=== PATIENT | male | born 1945 | race Caucasian/White ===

== ENCOUNTER 2017-09-26 08:54 | Day surgery (SDC) | payer MEDICARE, OTHER, SELFPAY ==
[2017-09-23 15:58] VITALS: BMI 24.3
[2017-09-26 10:01] VITALS: BP 149/81; PULSE 57; RESP 20; TEMP 36.6
[2017-09-26 10:19] LABS: POC Glucose,Bedside 99 mg/dL
[2017-09-26 10:27] VITALS: O2SAT 96
--- NOTE | 2017-09-26 10:56 | P.PCN_ITS ---
[facility] Procedure Note Procedure Note:: Colonoscopy Procedure Report: Colonoscopy with cold snare polypectomy Endoscopist: Roberto Light II, MD Referring physician: Abelardo eLvi MD Date of Procedure: September 26, 2017 Equipment: Olympus 180 variable stiffness pediatric colonoscope Sedation: MAC sedation Indication: Mr. Lezama is a 72-year-old gentleman who is here for follow-up screening/surveillance colonoscopy. He did have a colonoscopy 5 years ago at which time a polyp was removed. This is his third colonoscopy. He reports no abdominal pain, weight loss, change in his bowel habits or rectal bleeding. He reports no family history of colon cancer. Procedure: Prior to the procedure, a history and physical exam was performed, and patient' s medications and allergies were reviewed. The risks, benefits and alternatives of the sedation and procedure were discussed with the patient. All questions were answered and informed consent was obtained. The patient was brought to the procedure room. Patient identification and proposed procedure were verified by the physician and the nurse. The patient was placed in a left lateral decubitus position and the scope was passed under direct vision. Throughout the procedure, the patient's blood pressure, pulse, and oxygen saturations were monitored continuously. The colonoscopy was accomplished without difficulty. The patient tolerated the procedure well. Findings: On digital rectal examination there was normal rectal tone. There were no external hemorrhoids. The prostate was 2+, smooth, soft, symmetric without nodules. The colonoscope was introduced through the anal canal to the rectum and advanced to the cecum. The ileocecal valve and appendiceal orifice were identified. The scope was advanced a short distance into the ileum which appeared grossly normal. The scope was then withdrawn into the colon. The cecum , ascending and transverse colon and mucosa were grossly normal. There was a 5- 6 mm polyp in the descending colon removed via cold snare polypectomy. There were scattered diverticuli throughout the descending and sigmoid colon (LEFT colon). The rectum itself was normal. Upon retroflexion within the rectum there were grade 1 internal hemorrhoids. Impression: 1. Descending colon polyp 2. Left-sided diverticulosis 3. Grade 1 internal hemorrhoids Plan: I will follow up the polyp pathology and recommend repeat colonoscopy again in 5 years based upon the polyp histology. I would encourage fiber supplementation on a long-term daily maintenance basis.
[2017-09-26 11:00] VITALS: BP 120/68; PULSE 50; RESP 16; TEMP 36.5; O2SAT 94
[2017-09-26 11:10] VITALS: BP 133/76; PULSE 63; RESP 18; O2SAT 95
[2017-09-26 11:20] VITALS: BP 127/73; PULSE 54; RESP 18; O2SAT 97
[2017-09-26 11:30] VITALS: BP 130/77; PULSE 57; RESP 18; TEMP 36.5; O2SAT 96
--- NOTE | 2017-09-28 08:24 | P.PN_ITS ---
[facility] Anesthesia Checklist - Structural Data Admitted From: Home Planned Operative Procedure/s: colonoscopy Consent for Planned Operative Procedure(s) Verified: Yes - Airway Assessment C-Spine Mobility Assessed: Yes TMJ Mobility Assessed: Yes Dentition: Good Dentition - Neurological Assessment Level of Consciousness: Awake, Alert - Anesthesia Plan Anesthesia Risk discussed: Yes Anesthesia Plan: Verified ASA Class: III Anesthesia Type: MAC [facility] Anesthesia HX I have reviewed the patient's past medical history: Yes Medical History: Reports:: Diabetes Mellitus Type 2, Valvular Heart Disease Denies:: Diabetes Mellitus Type 1, Seizures Other Surgeries: No: Pacemaker Comment: heart valve rep
== END 2017-09-26 11:30 | disposition home or self-care (01) ==
LOC: OUTP 08:56
PROVIDERS: PCP Family Medicine; Visit Provider Internal Medicine Gastroenterology
PROC: 0DJD8ZZ Inspection of Lower Intestinal Tract, Via Natural or Artificial Opening Endoscopic (ICD-10-PCS; CPT 45378; principal; 2017-09-26 10:00)
DX: Z12.11 Encounter for screening for malignant neoplasm of colon (principal); K63.5 Polyp of colon; K57.30 Diverticulosis of large intestine without perforation or abscess without bleeding; K64.0 First degree hemorrhoids; I25.10 Atherosclerotic heart disease of native coronary artery without angina pectoris
CPT/HCPCS: 45380; 82962; 88305

== ENCOUNTER 2017-10-24 09:47 | Outpatient (CLI) | payer MEDICARE, OTHER, SELFPAY ==
[2017-10-24 13:17] LABS: PHA INR Fingerstick 2.7 (0.9-1.1)
== END 2017-10-24 13:28 | disposition home or self-care (01) ==
PROVIDERS: PCP Family Medicine; Visit Provider Physician Assistant
DX: Z79.01 Long term (current) use of anticoagulants (principal); Z51.81 Encounter for therapeutic drug level monitoring
CPT/HCPCS: 85610; 99211; G0463

== ENCOUNTER 2017-11-14 10:27 | Outpatient (CLI) | payer MEDICARE, OTHER, SELFPAY ==
[2017-11-14 13:26] LABS: PHA INR Fingerstick 2.8 (0.9-1.1)
== END 2017-11-14 13:49 | disposition home or self-care (01) ==
LOC: ACC 10:28
PROVIDERS: PCP Family Medicine; Visit Provider Physician Assistant
DX: Z95.2 Presence of prosthetic heart valve (principal); Z79.01 Long term (current) use of anticoagulants
CPT/HCPCS: 85610; 99211; G0463

== ENCOUNTER → 2017-12-12 10:21 | Outpatient (CLI) | payer MEDICARE, OTHER, SELFPAY ==
[2017-12-12 12:14] LABS: PHA INR Fingerstick 1.7 (0.9-1.1)
[2017-12-12 17:03] LABS: Alanine Aminotransferase 48 U/L (12-78); Albumin Level 4.4 gm/dL (3.4-5.0); Albumin/Globulin Ratio 1.5 (1.1-1.8); Alkaline Phosphatase 70 U/L (46-116); Anion Gap 9.9 mEq/L (5-15); Aspartate Amino Transferase 24 U/L (15-37); Bilirubin,Total 0.5 mg/dL (0.2-1.0); Blood Urea Nitrogen 15 mg/dL (7-18); Calcium 8.7 mg/dL (8.5-10.1); Carbon Dioxide 32 mmol/L (21.0-32.0); Chloride 104 mmol/L (98-107); Creatinine,Serum 0.74 mg/dL (0.70-1.30); Estimated Glomerular Filt Rate 105 ml/min (>60); GFR (African American) 127 ML/MIN (>60); Glucose 103 mg/dL (74-106); Magnesium 1.6 mg/dL (1.4-2.2); Potassium 3.9 mmoL/L (3.5-5.1); Sodium 142 mmol/L (136-145); Total Protein,Serum 7.4 gm/dL (6.4-8.2)
[2017-12-12 17:18] LABS: Troponin I < 0.02 ng/ml (0.00-0.06)
[2017-12-12 17:23] LABS: Thyroid Stimulating Hormone 2.38 uIU/ml (0.358-3.740)
== END ==
PROVIDERS: PCP Family Medicine; Visit Provider Physician Assistant
DX: Z79.01 Long term (current) use of anticoagulants (principal); Z51.81 Encounter for therapeutic drug level monitoring; Z95.2 Presence of prosthetic heart valve; R00.2 Palpitations
CPT/HCPCS: 36415; 80053; 83735; 84443; 84484; 85610; 93005; 93225; 93226; 99211; G0463

== ENCOUNTER → 2017-12-22 08:31 | Outpatient (CLI) | payer MEDICARE, OTHER, SELFPAY ==
[2017-12-22 09:04] LABS: Anion Gap 10.2 mEq/L (5-15); Blood Urea Nitrogen 15 mg/dL (7-18); Carbon Dioxide 32 mmol/L (21.0-32.0); Chloride 105 mmol/L (98-107); Chol/HDL Ratio 3.6 (1-3.5); Cholesterol 167 mg/dL (140-200); Creatinine,Serum 0.91 mg/dL (0.70-1.30); Estimated Glomerular Filt Rate 82 ml/min (>60); GFR (African American) 100 ML/MIN (>60); Glucose 152 mg/dL (74-106); HDL Cholesterol 46 mg/dL (27-67); LDL Cholesterol 111 mg/dL (0-130); Potassium 5.2 mmoL/L (3.5-5.1); Sodium 142 mmol/L (136-145); Triglycerides 52 mg/dL (30-200); VLDL Cholesterol 10 mg/dL (0-40)
== END ==
PROVIDERS: Visit Provider Physician Assistant
DX: E78.5 Hyperlipidemia, unspecified (principal); I10 Essential (primary) hypertension
CPT/HCPCS: 36415; 80048; 80061

== ENCOUNTER → 2018-01-06 13:05 | Outpatient (CLI) | payer MEDICARE, OTHER, SELFPAY ==
[2018-01-06 14:20] LABS: Anion Gap 13.4 mEq/L (5-15); Blood Urea Nitrogen 17 mg/dL (7-18); Carbon Dioxide 29 mmol/L (21.0-32.0); Chloride 107 mmol/L (98-107); Creatinine,Serum 0.84 mg/dL (0.70-1.30); Estimated Glomerular Filt Rate 90 ml/min (>60); GFR (African American) 109 ML/MIN (>60); Glucose 129 mg/dL (74-106); Potassium 4.4 mmoL/L (3.5-5.1); Sodium 145 mmol/L (136-145)
[2018-01-06 14:43] LABS: INR 3.49 (0.9-1.1); Prothrombin Time 38.2 seconds (9.4-11.8)
--- NOTE | 2018-01-07 12:13 | P.PN_ITS ---
Internal Medicine - PN: Subj *Date: 01/07/18 *Time: 12:12 Exam Vital signs and Labs for Last 24 Hours: Laboratory Results - last 24 hr 01/06/18 13:10: Sodium 145, Potassium 4.4, Chloride 107, Carbon Dioxide 29, Anion Gap 13.4, BUN 17, Creatinine 0.84, Estimated GFR 90, Est GFR ( Amer ) 109, Glucose 129 H 01/06/18 13:10: PT 38.2 H, INR 3.49 H Assessment and Plan - Assessment and plan all Dx Assessment and Plan for all problems:: PATIENT INR 3.49 ON 01/06/18. RECOMMENDED 2 MG TODAY AND THEN REDUCE DOSE TO 4 MG DAILY MARILEE GIRARD, RENEAD
== END ==
PROVIDERS: Visit Provider Physician Assistant
DX: Z79.01 Long term (current) use of anticoagulants (principal); Z51.81 Encounter for therapeutic drug level monitoring; I10 Essential (primary) hypertension; E11.9 Type 2 diabetes mellitus without complications; E87.5 Hyperkalemia
CPT/HCPCS: 36415; 80048; 85610

== ENCOUNTER 2018-01-26 10:20 | Outpatient (CLI) | payer MEDICARE, OTHER, SELFPAY ==
[2018-01-26 13:12] LABS: PHA INR Fingerstick 2.6 (0.9-1.1)
== END 2018-01-26 14:47 | disposition home or self-care (01) ==
LOC: ACC 10:21
PROVIDERS: PCP Family Medicine; Visit Provider Physician Assistant
DX: Z79.01 Long term (current) use of anticoagulants (principal); Z51.81 Encounter for therapeutic drug level monitoring; Z95.2 Presence of prosthetic heart valve
CPT/HCPCS: 85610; 99211; G0463

== ENCOUNTER 2018-03-09 08:29 | Outpatient (CLI) | payer MEDICARE, OTHER, SELFPAY ==
[2018-03-09 14:42] LABS: PHA INR Fingerstick 2.6 (0.9-1.1)
== END 2018-03-09 15:04 | disposition home or self-care (01) ==
LOC: ACC 08:30
PROVIDERS: Visit Provider Physician Assistant
DX: Z79.01 Long term (current) use of anticoagulants (principal); Z51.81 Encounter for therapeutic drug level monitoring; Z95.2 Presence of prosthetic heart valve
CPT/HCPCS: 85610; 99211; G0463

== ENCOUNTER 2018-04-17 09:58 | Outpatient (CLI) | payer MEDICARE, OTHER, SELFPAY ==
[2018-04-17 16:36] LABS: PHA INR Fingerstick 2.5 (0.9-1.1)
== END 2018-04-17 16:40 | disposition home or self-care (01) ==
LOC: ACC 09:59
PROVIDERS: PCP Family Medicine; Visit Provider Physician Assistant
DX: Z79.01 Long term (current) use of anticoagulants (principal); Z51.81 Encounter for therapeutic drug level monitoring; Z95.2 Presence of prosthetic heart valve
CPT/HCPCS: 85610; 99211; G0463

== ENCOUNTER 2018-05-22 09:57 | Outpatient (CLI) | payer MEDICARE, OTHER, SELFPAY ==
[2018-05-22 10:45] LABS: PHA INR Fingerstick 2.5 (0.9-1.1)
== END 2018-05-22 10:50 | disposition home or self-care (01) ==
LOC: ACC 09:58
PROVIDERS: PCP Family Medicine; Visit Provider Physician Assistant
DX: Z51.81 Encounter for therapeutic drug level monitoring (principal); Z79.01 Long term (current) use of anticoagulants; Z95.2 Presence of prosthetic heart valve
CPT/HCPCS: 85610; 99211; G0463

== ENCOUNTER 2018-06-26 09:38 | Outpatient (CLI) | payer MEDICARE, OTHER, SELFPAY ==
[2018-06-26 10:38] LABS: PHA INR Fingerstick 2.5 (0.9-1.1)
== END 2018-06-26 10:40 | disposition home or self-care (01) ==
LOC: ACC 09:40
PROVIDERS: PCP Family Medicine; Visit Provider Physician Assistant
DX: Z51.81 Encounter for therapeutic drug level monitoring (principal); Z79.01 Long term (current) use of anticoagulants; Z95.2 Presence of prosthetic heart valve
CPT/HCPCS: 85610; 99211; G0463

== ENCOUNTER 2018-07-31 09:56 | Outpatient (CLI) | payer MEDICARE, OTHER, SELFPAY ==
[2018-07-31 10:22] LABS: PHA INR Fingerstick 2.5 (0.9-1.1)
== END 2018-07-31 10:24 | disposition home or self-care (01) ==
LOC: ACC 09:58
PROVIDERS: PCP Family Medicine; Visit Provider Physician Assistant
DX: Z51.81 Encounter for therapeutic drug level monitoring (principal); Z79.01 Long term (current) use of anticoagulants; Z95.2 Presence of prosthetic heart valve
CPT/HCPCS: 85610; 99211; G0463

== ENCOUNTER 2018-09-11 09:47 | Outpatient (CLI) | payer MEDICARE, OTHER, SELFPAY ==
[2018-09-11 14:34] LABS: PHA INR Fingerstick 2.6 (0.9-1.1)
== END 2018-09-11 15:13 | disposition home or self-care (01) ==
LOC: ACC 09:48
PROVIDERS: PCP Family Medicine; Visit Provider Physician Assistant
DX: Z51.81 Encounter for therapeutic drug level monitoring (principal); Z79.01 Long term (current) use of anticoagulants; Z95.2 Presence of prosthetic heart valve
CPT/HCPCS: 85610; 99211; G0463

== ENCOUNTER → 2018-12-18 11:10 | Outpatient (CLI) | payer MEDICARE, OTHER, SELFPAY ==
--- NOTE | 2018-12-18 11:22 | XR_ITS ---
XR shoulder RT min 2V Ordering Physician: Abelardo Levi MD Patient Age: 73 years: Male HISTORY: ITS.REASON: ROTATOR CUFF SYNDROM TECHNIQUE: 3 views right shoulder COMPARISON :None of the shoulder. There is a chest film from 2012 useful comparison and right clavicle from 2011 FINDINGS . The glenohumeral joint appears intact. Glenohumeral head and neck appear intact. AC joint intact. Bones well mineralized. Joint spaces maintained. Upper right ribs, scapula unremarkable There is old healed fracture midshaft of clavicle. Mild osseous prominence and deformity here. IMPRESSION: Old fracture mid right clavicle. Otherwise Right shoulder intact. & Unremarkable.
== END ==
PROVIDERS: PCP Family Medicine; Visit Provider Family Medicine
DX: M75.101 Unspecified rotator cuff tear or rupture of right shoulder, not specified as traumatic (principal)
CPT/HCPCS: 73030

== ENCOUNTER → 2019-04-27 08:35 | Outpatient (CLI) | payer MEDICARE, OTHER, SELFPAY ==
--- NOTE | 2019-04-27 08:40 | XR_ITS ---
PROCEDURE: XR KNEE RT 4V CLINICAL INDICATION: right knee pain COMPARISON: No exams were available for comparison TECHNIQUE: Four views including weight bearing and patellar views FINDINGS: Minimal osteoarthritic change medial compartment. There is a small defect in the lateral tibial plateau articular surface suspicious for a small osteochondral fragment. Minimal osteoarthritic changes are present at the patellofemoral joint. 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
== END ==
PROVIDERS: PCP Family Medicine; Visit Provider Orthopaedic Surgery
DX: M25.561 Pain in right knee (principal)
CPT/HCPCS: 73564

== ENCOUNTER → 2019-05-11 09:04 | Outpatient (CLI) | payer MEDICARE, OTHER, SELFPAY ==
--- NOTE | 2019-05-11 09:11 | XR_ITS ---
PROCEDURE: XR SHOULDER RT MIN 2V CLINICAL INDICATION: right shoulder pain COMPARISON: SHOULDCMRT XR shoulder RT min 2V from 12/18/2018 FINDINGS: There is an old right clavicular fracture mid shaft. There is mild subacromial stenosis. No fracture or dislocation. No lytic or blastic change. Unremarkable glenohumeral joint.. There are are old right-sided rib fractures as well IMPRESSION: Old right clavicular fracture with mild subacromial stenosis Dictated by: Víctor Ramirez MD 05/11/2019 11:09 Signed by: <Electronically signed by Víctor Ramirez MD in [place]> 05/11/2019 11:09
== END ==
PROVIDERS: PCP Family Medicine; Visit Provider Orthopaedic Surgery
DX: M25.511 Pain in right shoulder (principal)
CPT/HCPCS: 73030

== ENCOUNTER 2019-06-02 08:00 | Outpatient (RCR) | payer MEDICARE, OTHER, SELFPAY ==
--- NOTE | 2019-05-18 10:16 | HMH.PTOPEV ---
PT Outpatient Evaluation Rehab PT Outpatient Evaluation Start: 05/18/19 09:24 Freq: Status: Active Protocol: Document 05/18/19 09:25 VIKRAM (Rec: 05/18/19 10:16 VIKRAM [id number]) Electronically Signed By Richard Thomas, PT 05/18/19 09:25 Outpatient Therapy Subjective History Subjective History 73 year old male pt. is referred for R shoulder pn. due to biceps tendinopathy and subacromial impingement. Pt. reports that he has been having pn. for a couple of months now. Pt. states he has been seeing M.D. and was referred to PT. Pt. reports he had pn. in the same shoulder a few years ago and received PT. States that he saw PT about 2 months ago and it helped w/ ROM but not w/pn. Pt . reports pn. is worse w/ reaching across body and reaching overhead towards end range. Note and eval done by student PT Georges Cabrera Chief Complaint Pain Symptom Type Sharp Symptoms Relieved By Rest/Positioning Symptoms Aggravated By Physical Activity,Lifting Prior Functional Limitations None Current Functional Limitations Reaching,Lifting,Sleeping, Recreation Activity Symptom Description Intermittent Level of pain today (0-10) 0 Pain scale - at its best (0-10) 0 Pain scale - at its worst (0-10) 5 Shoulder/Elbow Eval Shoulder Objective Measurements Posture Shoulder Posture Sitting Position (L) Rounded,(R) Rounded,(L) Forward,(R) Forward Shoulder Posture Standing Position (L) Rounded,(R) Rounded,(L) Forward,(R) Forward Scapula Posture Sitting Position (L) Protracted,(R) Protracted Scapular Posture Standing Position (L) Protracted,(R) Protracted Shoulder ROM Left Shoulder Abduction Active Range of WNL Motion (degrees) Shoulder Flexion Active Range of Motion WNL (degrees) Query Text: Shoulder External Rotation Active Range WNL of Motion (degrees) Shoulder Internal Rotation Active Range WNL of Motion (degrees) Shoulder Extension Active Range of WNL Motion (degrees) Right Shoulder ROM Limitations Pain Shoulder Abduction Active Range of 160 Motion (degrees) Shoulder Flexion Active Range of Motion 160
== END 2019-06-02 08:05 | disposition home or self-care (01) ==
LOC: PT 08:00
PROVIDERS: PCP Family Medicine; Visit Provider Orthopaedic Surgery
DX: M75.41 Impingement syndrome of right shoulder (principal)
CPT/HCPCS: 97110; 97163

== ENCOUNTER → 2019-09-03 09:15 | Outpatient (CLI) | payer MEDICARE, OTHER, SELFPAY ==
--- NOTE | 2019-09-03 09:15 | CA_ITS ---
APPROVED REPORT EXAM: Comprehensive 2D, Doppler, and color-flow Echocardiogram Carpentry Professional: Irina Villafana CRT Ht: 6 ft 2 in Wt: 202lbs BSA: 2.18 BP: 138/72 mmHg Indications: AVR 1998 MECHANICAL , HTN, PALP, HLD, AFIB, YUE 2D Dimensions LVOT 1.73 cm (M/F) 1.5-2.5 M-Mode Dimensions RVDd 2.98 cm (0.9-2.6) LVDd 5.78 cm (3.5-5.7) LVDs 2.83 cm (3.5-5.7) IVSd 1.40 cm (0.6-1.1) PWd 0.97 cm (0.6-1.1) EF (Teich) 81.70% FS 51.00% EDV (Teich) 165.20 mL ESV (Teich) 30.30 mL LV Diastology E/A Ratio 0.88 Aortic Valve LVOT Max 136.00 (70-110 cm/s) LVOT VTI 36.11 cm Mitral Valve MV A Velocity 74.00 (40-130 cm/s) Left Ventricle Left atrium is moderately enlarged, left ventricle is normal size, mild concentric left ventricular hypertrophy, visually estimated ejection fraction 55% with no regional wall motion abnormality. Diastolic parameters are inconclusive. Right Ventricle Right atrium and right ventricular normal size and contractility. Aortic Valve There is a mechanical prosthetic valve noted in the aortic position. The mean gradient across valve is 14 mmHg, valve area is 1.6 cm???, there is trace aortic insufficiency. Mitral Valve Mitral valve is grossly normal, there is mild mitral regurgitation. Tricuspid Valve Tricuspid valve is grossly normal, there is mild tricuspid regurgitation. Tricuspid regurgitation jet velocity is inadequate for calculation of the right ventricular systolic pressure. Pulmonic Valve Pulmonic valve is poorly visualized. Great Vessels Aortic root is normal size. Pericardium No significant pericardial effusion noted. Conclusion 1. Moderately enlarged left atrium, normal left ventricular size, mild concentric left ventricular hypertrophy, visually estimated ejection fraction 55% with no regional wall motion abnormality, diastolic parameters are inconclusive. 2. Mechanical prosthetic valve in the aortic position, mean gradient across valve is 14 mmHg, valve area is 1.6 cm???, there is trace aortic insufficiency. 3. Mild mitral and tricuspid regurgitation. 4. No significant pericardial effusion noted. Electronically signed by : Ghulam Angel, 09/03/2019 15:21:47
== END ==
PROVIDERS: PCP Family Medicine; Visit Provider Nurse Practitioner Family
DX: E78.5 Hyperlipidemia, unspecified (principal); I10 Essential (primary) hypertension; R00.1 Bradycardia, unspecified; Z79.01 Long term (current) use of anticoagulants; Z95.2 Presence of prosthetic heart valve
CPT/HCPCS: 93306

== ENCOUNTER → 2019-11-03 07:42 | Outpatient (CLI) | payer MEDICARE, OTHER, SELFPAY ==
--- NOTE | 2019-11-03 07:46 | US_ITS ---
PROCEDURE: US ABDOMEN LIMITED CLINICAL INDICATION: RUQ PAIN COMPARISON: No exams were available for comparison FINDINGS: PANCREAS: Unremarkable. No obvious mass or abnormal fluid collection. No ductal dilatation LIVER: There is diffuse fatty infiltration. No focal liver lesions demonstrated. Homogeneous echogenicity. No intrahepatic biliary ductal dilatation evident. There is appropriate direction of blood flow within a non dilated portal vein RIGHT KIDNEY: Unremarkable. Normal size and echogenicity. No hydronephrosis GALLBLADDER: No gallstones pericholecystic fluid, or biliary dilatation. There is mild gallbladder wall thickening to 3.5 millimeters. Acute versus chronic acalculous cholecystitis would have to be considered. Nonshadowing intraluminal sludge is noted within the gallbladder. Common bile duct is measuring 4 millimeters. IMPRESSION: Sludge in the gallbladder without gallstones. Gallbladder wall thickening. Fatty infiltrated liver. Dictated by: Andrea Covington 11/03/2019 09:59 Electronically signed by Andrea Covington in [place] 11/03/2019 09:59
== END ==
PROVIDERS: PCP Family Medicine; Visit Provider Family Medicine
DX: R10.11 Right upper quadrant pain (principal)
CPT/HCPCS: 76705

== ENCOUNTER → 2021-08-30 11:10 | Outpatient (CLI) | payer MEDICARE, OTHER, SELFPAY ==
--- NOTE | 2021-08-30 11:19 | CA_ITS ---
APPROVED REPORT EXAM: Comprehensive 2D, Doppler, and color-flow Echocardiogram Nursing Staffing Coordinator: Sonja Cantu, RCS, RVS Ht: 6 ft 2 in Wt: 200lbs BSA: 2.17 BP: 170/80 mmHg Indications: AVR-[facility] 1997, AI, TR, Afib with palpitations, HTN, HLD 2D Dimensions Aortic Root 3.18 cm LA Volume 104.50 mL Left Atrium 4.34 cm LA Volume Index 48.20 mL/m2 (M/F) 16-34 LVOT 2.02 cm (M/F) 1.5-2.5 M-Mode Dimensions RVDd 3.79 cm (0.9-2.6) LA Diam 4.43 cm (1.9-4.0) LVDd 5.35 cm (3.5-5.7) LVDs 3.12 cm (3.5-5.7) IVSd 1.31 cm (0.6-1.1) PWd 0.93 cm (0.6-1.1) EF (Teich) 72.20% EPSs 0.64 cm FS 41.70% EDV (Teich) 138.30 mL TAPSE 1.93 (<1.7) ESV (Teich) 38.50 mL LV Diastology E Decel Time 333.00 (160-240 msec) E/A Ratio 0.87 MED E' 8.30 (< 7 cm/sec) MED A' 10.30 cm/s E'/MED E' Ratio 7.75 (>14) LAT E' 11.10 (<10 cm/sec) LAT A' 12.10 cm/s E/LAT E' Ratio 5.79 (>14) Aortic Valve LVOT Max 114.00 (70-110 cm/s) LVOT VTI 28.57 cm AoV Peak Giuseppe. 282.00 (50-130 cm/s) AI PHT 671.00 ms AO Peak GR. 31.80 mmHg AO Mean GR. 15.80 (<5 mmHg) AO VTI 63.15 (18-25 cm) RENARD (VTI) 1.45 (2.5-4.5 cm2) Mitral Valve MV A Velocity 74.00 (40-130 cm/s) E/A Ratio 0.87 MV Decel. Time 333.00 (160-240 ms) MV Mean Gr. 1.00 (<2mmHg) MV PHT 100.00 ms Pulmonary Valve PV Peak Velocity 89.00 (50-150 cm/s) Tricuspid Valve TR P. Velocity 255.00 cm/s RAP Estimate 10.00 mmHg RVSP 36.00 mmHg Left Ventricle Left atrium is mildly enlarged, left ventricle is normal size, mild concentric left ventricular hypertrophy, visually estimated ejection fraction 55% with no regional wall motion abnormality, grade 1 diastolic dysfunction seen without tissue Doppler evidence of raise left atrial pressure. Right Ventricle Right atrium and right ventricle are mildly enlarged with normal contractility. Aortic Valve There is a mechanical prosthetic valve noted in the aortic position valve is well-seated, the peak instantaneous velocity across the valve is 2.8 m/s, resulting in a peak instantaneous gradient of 31 mmHg, mean gradient of 16 mmHg, valve area is 1.6 cm??? with does not represent any significant aortic outflow obstruction, there is mild aortic insufficiency. Mitral Valve Mitral valve leaflets are minimally thickened, there is mild mitral regurgitation. Tricuspid Valve Tricuspid valve grossly normal, there is mild tricuspid regurgitation, calculated right ventricular systolic pressure is 35 mmHg. Pulmonic Valve Pulmonic valve is poorly visualized. Great Vessels Aortic root is normal size size, ascending aorta appears to be mildly dilated. Inferior vena cava is normal size with normal inspiratory collapse. Pericardium No significant pericardial effusion noted. Conclusion 1. Biatrial enlargement, normal left ventricular size, mild concentric left ventricular hypertrophy, visually estimated ejection fraction 55% with no regional wall motion abnormality, grade 1 diastolic dysfunction seen without tissue Doppler evidence of raise left atrial pressure. 2. Mechanical prosthetic valve in the aortic position without significant aortic outflow obstruction, there is mild aortic insufficiency. 3. Mild mitral and tricuspid regurgitation, calculated right ventricular systolic pressure 35 mmHg. 4. No significant pericardial effusion noted. 5. Inferior vena cava is normal size with normal inspiratory collapse. Electronically signed b
== END ==
PROVIDERS: PCP Family Medicine; Visit Provider Physician Assistant
DX: R00.2 Palpitations (principal); I10 Essential (primary) hypertension; E78.5 Hyperlipidemia, unspecified; Z95.2 Presence of prosthetic heart valve; Z51.81 Encounter for therapeutic drug level monitoring; Z79.01 Long term (current) use of anticoagulants
CPT/HCPCS: 93306

== ENCOUNTER → 2022-01-07 09:37 | Outpatient (CLI) | payer MEDICARE, OTHER, SELFPAY ==
[2022-01-07 13:23] LABS: Basophils # 0.1 K/mm3 (0-0.2); Basophils % 1.1 % (0.1-2.0); Eosinophils # 0.1 K/mm3 (0.0-0.4); Eosinophils % 1.7 % (0.1-12.0); Hemoglobin 15.7 g/dL (14.1-18.0); Lymphocytes # 1.2 K/mm3 (0.7-4.5); Lymphocytes % 19.8 % (10-50); Mean Corpuscular HGB Conc 32.7 g/dL (31.8-35.4); Mean Corpuscular Hemoglobin 33.6 pg (27.0-31.2); Mean Corpuscular Volume 102.9 fl (80-94); Mean Platelet Volume 7.9 fl (7.4-10.4); Monocytes # 0.4 K/mm3 (0.1-1.0); Monocytes % 7.3 % (1.7-9.3); Neutrophils # 4.2 K/mm3 (1.8-7.8); Neutrophils % 70.2 % (37.0-80.0); Platelet Count 256 K/mm3 (142-424); Red Blood Count 4.66 M/mm3 (4.60-6.20); Red Cell Distribution Width 13.7 % (11.5-17.5)
[2022-01-07 14:10] LABS: Alanine Aminotransferase 49 U/L (12-78); Albumin Level 4.8 g/dl (3.5-5.0); Albumin/Globulin Ratio 1.9 (1.1-1.8); Alkaline Phosphatase 44 U/L (38-126); Anion Gap 12.8 mEq/L (5-15); Aspartate Amino Transferase 38 U/L (17-59); Bilirubin,Total 0.7 mg/dl (0.2-1.3); Blood Urea Nitrogen 23 mg/dl (9-20); Calcium 9.3 mg/dl (8.4-10.2); Carbon Dioxide 30 mmol/L (22.0-30.0); Chloride 104 mmol/L (98-107); Cholesterol 175 mg/dl (140-200); Estimated Glomerular Filt Rate 65 ml/min (>60); GFR (African American) 79 ML/MIN (>60); Globulin 2.5 g/dL (1.3-3.2); Glucose 96 mg/dl (74-100); HDL Cholesterol 44 mg/dl (40-60); Potassium 3.8 mmoL/L (3.5-5.1); Sodium 143 mmol/L (136-145); Total Protein,Serum 7.3 g/dl (6.3-8.2); Triglycerides 152 mg/dl (30-150); VLDL Cholesterol 30 mg/dL (0-40)
[2022-01-07 14:18] LABS: Hemoglobin A1C 6.7 % (4.0-6.0)
[2022-01-07 14:21] LABS: Direct LDL Cholesterol 91.38 mg/dL (100-129)
[2022-01-07 14:40] LABS: Prostate Specific Ag Screen 10.1 ng/ml (0.0-4.0)
== END ==
PROVIDERS: PCP Family Medicine; Visit Provider Family Medicine
DX: E78.5 Hyperlipidemia, unspecified (principal); Z12.5 Encounter for screening for malignant neoplasm of prostate; E11.9 Type 2 diabetes mellitus without complications; Z79.84 Long term (current) use of oral hypoglycemic drugs
CPT/HCPCS: 80053; 80061; 83036; 85025; G0103

== ENCOUNTER → 2022-05-13 05:59 | Outpatient (CLI) | payer MEDICARE, OTHER, SELFPAY ==
[2022-05-13 19:47] LABS: Hemoglobin A1C 5.8 % (4.0-6.0)
== END ==
PROVIDERS: PCP Family Medicine; Visit Provider Family Medicine
DX: E11.9 Type 2 diabetes mellitus without complications (principal); Z79.84 Long term (current) use of oral hypoglycemic drugs
CPT/HCPCS: 83036

== ENCOUNTER → 2022-07-22 09:26 | Outpatient (CLI) | payer MEDICARE, OTHER, SELFPAY ==
[2022-07-23 08:18] LABS: PSA, Free 2.23 ng/mL; Prostate Specific Ag 7.6 ng/mL (0.0-4.0)
== END ==
PROVIDERS: PCP Family Medicine; Visit Provider Urology
DX: R97.20 Elevated prostate specific antigen [PSA] (principal)
CPT/HCPCS: 36415; 84153; 84154

== ENCOUNTER → 2023-01-22 10:20 | Outpatient (CLI) | payer MEDICARE, OTHER, SELFPAY ==
[2023-01-23 11:26] LABS: PSA, Free 2.23 ng/mL; Prostate Specific Ag 9.6 ng/mL (0.0-4.0)
== END ==
PROVIDERS: PCP Family Medicine; Visit Provider Urology
DX: N40.1 Benign prostatic hyperplasia with lower urinary tract symptoms (principal)
CPT/HCPCS: 36415; 84153; 84154

== ENCOUNTER → 2023-03-12 08:10 | Outpatient (CLI) | payer MEDICARE, OTHER, SELFPAY ==
[2023-03-12 09:36] LABS: Alanine Aminotransferase 48 U/L (12-78); Albumin Level 4.6 g/dl (3.5-5.0); Alkaline Phosphatase 54 U/L (38-126); Aspartate Amino Transferase 32 U/L (17-59); Bilirubin,Indirect 0.6 mg/dL (0.0-0.9); Bilirubin,Total 0.6 mg/dl (0.2-1.3); Bilirubin,Unconjugated 0.8 mg/dL (0.0-1.1); Chol/HDL Ratio 3.3 (1-3.5); Cholesterol 149 mg/dl (140-200); HDL Cholesterol 45 mg/dl (40-60); Triglycerides 76 mg/dl (30-150); VLDL Cholesterol 15 mg/dL (0-40)
[2023-03-12 09:48] LABS: Direct LDL Cholesterol 75.41 mg/dL (100-129)
== END ==
PROVIDERS: PCP Family Medicine; Visit Provider Nurse Practitioner Family
DX: E11.9 Type 2 diabetes mellitus without complications (principal); E78.2 Mixed hyperlipidemia; I10 Essential (primary) hypertension; R94.31 Abnormal electrocardiogram [ECG] [EKG]; Z95.2 Presence of prosthetic heart valve; Z79.84 Long term (current) use of oral hypoglycemic drugs
CPT/HCPCS: 36415; 80061; 80076

== ENCOUNTER 2023-07-06 07:53 | Emergency (ER) | payer MEDICARE, OTHER, SELFPAY ==
--- NOTE | 2023-07-06 07:58 | PC.NURSE ---
dr. reza at BS
[2023-07-06 08:00] VITALS: BP 143/69; PULSE 63; RESP 17; TEMP 36.7; O2SAT 98; BMI 23.7
--- NOTE | 2023-07-06 08:09 | HMH.EDGENADL ---
Discharge Plan Disposition Patient Disposition: Home, Self-Care Chief Complaint: Eye Problems Prescriptions Prescriptions: No Action tamsulosin 0.4 mg capsule 0.4 mg PO DAILY enoxaparin [Lovenox] 100 mg/mL syringe 100 mg SQ Q12H Qty: 10 10RF atenolol 50 mg tablet 50 mg PO DAILY Qty: 90 3RF dapagliflozin propanediol 10 mg tablet 10 mg PO DAILY Qty: 90 3RF glipizide 5 mg tablet 5 mg PO DAILY Qty: 90 3RF hydrochlorothiazide 25 mg tablet 25 mg PO DAILY Qty: 90 3RF sildenafil 100 mg tablet 100 mg PO DAILY PRN (Reason: sexual activity) Qty: 20 10RF simvastatin 20 mg tablet 20 mg PO HS Qty: 90 3RF warfarin 4 mg tablet 4 mg PO DAILY Qty: 120 10RF warfarin 1 mg tablet 1 mg PO DAILY Qty: 120 2RF Referrals Follow up/Referrals: Connor Mclain MD [Primary Care Provider] - See instructions Activity Restrictions/Add. Instructions Additional Instructions/Restrictions: Call your family doctor to establish care for this visit to the emergency department and schedule follow-up within 48 hours to ensure improvement. If you have any worsening of your condition or any other concerning signs or symptoms, return to the emergency department or your primary care doctor for further evaluation. Clinical Impressions Clinical Impression: Post-operative complication Discharge ED Provider: Elio Thrasher General Adult HPI General Chief complaint: Eye Problems Stated complaint: post eye surgery from Friday,bleeding Time Seen by Provider: 07/06/23 07:56 Mode of Arrival: Family Vehicle Source of Information: Patient Limitations: No Limitations Description of Symptoms (Recalled from ER Triage Doc. by RN): 77 yo male presents with s/p bilateral eye blephoplasty on friday. H/O: [facility] heart valve with associated coumadin use for maintenance. States his right eye surg site has been oozing blood since yesterday and he just restarted the coumadin last night. Prior to that has been off of it for 1 week. INR 1.0 by POC test this am at home. History of Present Illness HPI narrative: 77-year-old male history of blepharoplasty 2 days prior to arrival presenting with postop bleeding. Patient states has been bleeding for about 12 hours. Took his first dose of warfarin after his operation last night, 10/21. Having slow, venous bleeding no lightheadedness, shortness of breath, vision changes, nausea, weakness, or any other concerns. Related Data Home Medications Medication Instructions Recorded Confirmed tamsulosin 0.4 mg capsule 0.4 mg PO DAILY 02/28/22 03/11/23 Previous Rx's Medication Instructions Recorded atenolol 50 mg tablet 50 mg PO DAILY BLOOD PRESSURE #90 01/31/23 tabs dapagliflozin propanediol 10 mg 10 mg PO DAILY #90 tabs 01/31/23 tablet glipizide 5 mg tablet 5 mg PO DAILY #90 tabs 01/31/23 hydrochlorothiazide 25 mg tablet 25 mg PO DAILY #90 tabs 01/31/23 sildenafil 100 mg tablet 100 mg PO DAILY PRN sexual 01/31/23 activity #20 tabs simvastatin 20 mg tablet 20 mg PO HS Cholesterol #90 tabs 01/31/23 warfarin 1 mg tablet 1 mg PO DAILY #120 tabs 01/31/23 warfarin 4 mg tablet 4 mg PO DAILY #120 tabs 01/31/23 enoxaparin 100 mg/mL subcutaneous 100 mg SQ Q12H #10 mL 03/11/23 syringe (Lovenox) Allergies Allergy/AdvReac Type Severity Reaction Status Date / Time No Known Allergies Allergy Verified 03/11/23 13:33 [facility] Disclaimer: The information contained in this section may have been updated after the patient was seen, as this information can be updated by other users. 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
[2023-07-06 08:30] VITALS: BP 130/58
[2023-07-06 09:01] VITALS: BP 129/52
--- NOTE | 2023-07-06 09:10 | PC.NURSE ---
dr. reza at reassessing pt
[2023-07-06 10:04] VITALS: BP 143/69; PULSE 57; RESP 209; TEMP 36.7; O2SAT 95
--- NOTE | 2023-07-06 10:04 | PC.NURSE ---
pt has been discahrged form the facility.
== END 2023-07-06 10:07 | disposition home or self-care (01) ==
PROVIDERS: Emergency Provider Emergency Medicine; PCP Emergency Medicine
DX: H11.33 Conjunctival hemorrhage, bilateral (principal); Z48.810 Encounter for surgical aftercare following surgery on the sense organs
CPT/HCPCS: 99284

== ENCOUNTER → 2023-08-04 15:13 | Outpatient (CLI) | payer MEDICARE, OTHER, SELFPAY ==
[2023-08-06 08:18] LABS: PSA, Free 2.53 ng/mL; Prostate Specific Ag 11.5 ng/mL (0.0-4.0)
== END ==
PROVIDERS: PCP Internal Medicine; Visit Provider Urology
DX: R97.21 Rising PSA following treatment for malignant neoplasm of prostate (principal)
CPT/HCPCS: 36415; 84153; 84154

== ENCOUNTER → 2023-08-25 07:48 | Outpatient (CLI) | payer MEDICARE, OTHER, SELFPAY ==
--- NOTE | 2023-08-25 07:49 | CA_ITS ---
APPROVED REPORT EXAM: Comprehensive 2D, Doppler, and color-flow Echocardiogram Cut Off Machine Operator: Inga Leal RDCS Ht: 6 ft 2 in Wt: 195lbs BSA: 2.15 BP: 128/61 mmHg Indications: SOA,AVR MECH,AF,HTN,HLP 2D Dimensions Left Atrium 3.23 cm M: 3.0 - 4.0 LA Volume 96.20 mL LVOT 2.06 cm (M/F) 1.5-2.5 LA Volume Index 44.74 mL/m2 (M/F) 16-34 EF AP4 54.80 % GL Strain -19.8 % M-Mode Dimensions RVDd 2.68 cm (0.9-2.6) LVDd 6.52 cm (3.5-5.7) Ao Diam 3.86 cm (2.0-3.7) LVDs 4.69 cm (3.5-5.7) IVSd 0.80 cm (0.6-1.1) PWd 0.80 cm (0.6-1.1) EF (Teich) 53.10% FS 28.10% EDV (Teich) 217.50 mL TAPSE 2.51 (<1.7) ESV (Teich) 101.90 mL LV Diastology E Decel Time 214 (160-240 msec) E/A Ratio 0.9 MED E' 6.9 (>= 7 cm/sec) E'/MED E' Ratio 10.83 (<= 14) LAT E' 11.7 (>= 10 cm/sec) E/LAT E' Ratio 6.38 (<= 14) Aortic Valve LVOT Max 129.0 (70-110 cm/s) RENARD Index 0.80 cm2/m2 LVOT VTI 31.25 cm AoV Peak Giuseppe. 273.0 (50-130 cm/s) AI PHT 859.00 ms AO Mean GR. 14.70 (<5 mmHg) AO VTI 60.3 (18-25 cm) RENARD (VTI) 1.73 (2.5-4.5 cm2) Mitral Valve MV E Max Giuseppe. 75.0 (40-130 cm/s) MV A Velocity 79.0 (40-130 cm/s) E/A Ratio 0.95 MV Decel. Time 214 (160-240 ms) Tricuspid Valve TR P. Velocity 266.00 cm/s RAP Estimate 10.00 mmHg RVSP 38.40 mmHg Left Ventricle The left ventricle is normal size. The left ventricular systolic function is normal. The left ventricular ejection fraction is within the normal range. There is normal left ventricular wall thickness. There is normal LV segmental wall motion. The left ventricular diastolic function is normal. LVEF is 55%. Right Ventricle The right ventricle is normal size. The right ventricular systolic function is normal. Atria Left atrium is moderately dilated. Right atrium is mildly dilated. Aortic Valve s/p mechanical AVR. The AVR prosthesis is well-seated. Peak transaortic velocity 2.7 m/s. Mean AV gradient 14 mmHg. Max AV gradient 28 mmHg. Acceleration time 66 ms. Mild central aortic regurgitation. No paravalvular leak. Mitral Valve The mitral valve leaflets are mildly thickened. No evidence of mitral valve stenosis. Mild mitral regurgitation. Tricuspid Valve The tricuspid valve leaflets are thin and pliable. Mild tricuspid regurgitation. RVSP is 30-35 mmHg. Pulmonic Valve The pulmonary valve is normal in structure. Trace pulmonic regurgitation. Great Vessels The aortic root is normal in size. Mildly dilated ascending aorta, measuring 4.3 cm in diameter. IVC is normal in size and collapses >50% with inspiration. Pericardium There is no pericardial effusion. Other Information Study Quality: Fair Conclusion Normal biventricular systolic function. Biatrial dilation. Mild MR, mild TR. s/p mechanical AVR. Peak transaortic velocity 2.7 m/s. Mean AV gradient 14 mmHg. Max AV gradient 28 mmHg. Acceleration time 66 ms. Compared to prior study from 2020, there are overall no significant changes. The transaortic velocity and gradients are unchanged. Electronically signed by : Linda Torres MD 08/25/2023 21:47:23
== END ==
PROVIDERS: PCP Internal Medicine; Visit Provider Nurse Practitioner Family
DX: E78.2 Mixed hyperlipidemia (principal); I10 Essential (primary) hypertension; R00.1 Bradycardia, unspecified; R94.31 Abnormal electrocardiogram [ECG] [EKG]; Z79.01 Long term (current) use of anticoagulants; Z95.2 Presence of prosthetic heart valve
CPT/HCPCS: 93306

== ENCOUNTER 2023-11-06 12:07 | Outpatient (CLI) | payer MEDICARE, OTHER, SELFPAY ==
[2023-11-06 12:30] LABS: Basophils % 0.5 % (0.1-2.0); Eosinophils # 0.1 K/mm3 (0.0-0.4); Hematocrit 46.5 % (42.0-52.0); Hemoglobin 14.9 g/dL (14.1-18.0); Lymphocytes # 1.3 K/mm3 (0.7-4.5); Lymphocytes % 28.7 % (10-50); Mean Corpuscular HGB Conc 32.1 g/dL (31.8-35.4); Mean Corpuscular Hemoglobin 35.4 pg (27.0-31.2); Mean Corpuscular Volume 110.2 fl (80-94); Mean Platelet Volume 8.9 fl (7.4-10.4); Monocytes # 0.4 K/mm3 (0.1-1.0); Monocytes % 9.5 % (1.7-9.3); Neutrophils # 2.7 K/mm3 (1.8-7.8); Neutrophils % 59.3 % (37.0-80.0); Platelet Count 262 K/mm3 (142-424); Red Blood Count 4.22 M/mm3 (4.60-6.20); Red Cell Distribution Width 14.7 % (11.5-17.5); White Blood Count 4.6 K/mm3 (4.8-10.8)
[2023-11-06 13:30] LABS: Alanine Aminotransferase 51 U/L (12-78); Albumin Level 4.8 g/dl (3.5-5.0); Albumin/Globulin Ratio 2.2 (1.1-1.8); Alkaline Phosphatase 49 U/L (38-126); Anion Gap 12.5 mEq/L (5-15); Aspartate Amino Transferase 35 U/L (17-59); Bilirubin,Total 0.8 mg/dl (0.2-1.3); Blood Urea Nitrogen 22 mg/dl (9-20); Calcium 9.4 mg/dl (8.4-10.2); Carbon Dioxide 29 mmol/L (22.0-30.0); Chloride 105 mmol/L (98-107); Estimated Glomerular Filt Rate 82 ml/min (>60); GFR (African American) 99 ML/MIN (>60); Globulin 2.2 g/dL (1.3-3.2); Glucose 142 mg/dl (74-100); Potassium 4.5 mmoL/L (3.5-5.1); Sodium 142 mmol/L (136-145)
[2023-11-06 14:34] LABS: 25-OH Vitamin D, Total 45.7 ng/mL (30-100)
== END 2023-11-06 23:59 ==
LOC: LAB.DROPOF 12:08
PROVIDERS: PCP Internal Medicine; Visit Provider Internal Medicine
DX: E78.5 Hyperlipidemia, unspecified (principal); R53.83 Other fatigue; E55.9 Vitamin D deficiency, unspecified
CPT/HCPCS: 80053; 82306; 85025

== ENCOUNTER 2023-11-07 10:07 | Outpatient (CLI) | payer MEDICARE, OTHER, SELFPAY ==
[2023-11-08 04:37] LABS: PSA, Free 2.94 ng/mL; Prostate Specific Ag 13.4 ng/mL (0.0-4.0)
== END 2023-11-07 23:59 ==
PROVIDERS: PCP Internal Medicine; Visit Provider Urology
DX: R97.20 Elevated prostate specific antigen [PSA] (principal)
CPT/HCPCS: 36415; 84153; 84154

== ENCOUNTER 2024-01-30 10:26 | Outpatient (CLI) | payer MEDICARE, OTHER, SELFPAY ==
[2024-01-31 08:17] LABS: PSA, Free 4.32 ng/mL; Prostate Specific Ag 19.4 ng/mL (0.0-4.0)
== END 2024-01-30 23:59 | disposition home or self-care (01) ==
LOC: LAB 10:27
PROVIDERS: PCP Internal Medicine; Visit Provider Urology
DX: R97.20 Elevated prostate specific antigen [PSA] (principal)
CPT/HCPCS: 36415; 84153; 84154

== ENCOUNTER 2024-03-18 12:12 | Emergency (ER) | payer MEDICARE, OTHER, SELFPAY ==
[2024-03-18 12:14] VITALS: BP 155/66; PULSE 65; RESP 18; TEMP 36.9; O2SAT 96; BMI 24.3
--- NOTE | 2024-03-18 12:40 | PC.NURSE ---
DR SEALS AT BEDSIDE
--- NOTE | 2024-03-18 13:00 | HMH.EDGENADL ---
Discharge Plan Disposition Patient Disposition: Home, Self-Care Chief Complaint: PAIN Prescriptions Prescriptions: No Action tamsulosin 0.4 mg capsule 0.8 mg PO DAILY dapagliflozin propanediol 10 mg tablet 10 mg PO DAILY Qty: 90 3RF glipizide 5 mg tablet 5 mg PO DAILY Qty: 90 3RF hydrochlorothiazide 25 mg tablet 25 mg PO DAILY Qty: 90 3RF sildenafil 100 mg tablet 100 mg PO DAILY PRN (Reason: sexual activity) Qty: 20 10RF warfarin 4 mg tablet 4 mg PO DAILY Qty: 120 10RF warfarin 1 mg tablet 1 mg PO DAILY Qty: 120 2RF atenolol 50 mg tablet 50 mg PO DAILY Qty: 90 3RF simvastatin 20 mg tablet 20 mg PO HS Qty: 90 3RF Referrals Follow up/Referrals: Tristan Billings DO [Primary Care Provider] - See instructions Activity Restrictions/Add. Instructions Additional Instructions/Restrictions: At this time it was felt you are safe to be discharged home. If new or worsening symptoms please do not hesitate to return the emergency department. 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 I am giving you a course of steroids to see if this improves your symptoms which may be reflective of polymyalgia rheumatica as we discussed although not definitive. Clinical Impressions Clinical Impression: Myopathy Discharge ED Provider: Gary Valles General Adult HPI General Chief complaint: PAIN Stated complaint: Pain in all limbs and joints, trouble walking Time Seen by Provider: 03/18/24 12:17 Mode of Arrival: Wheelchair Source of Information: Patient and Spouse Limitations: No Limitations Description of Symptoms (Recalled from ER Triage Doc. by RN): PT REPROTS BODY ACHES ALL OVER FOR 3 WEEKS. INR WAS 4.4 THIS MORNING History of Present Illness HPI narrative: Patient is a 78-year-old male with past medical history of diabetes, hypertension, hyperlipidemia, mechanical valve on warfarin who presents emergency department for evaluation of muscle aches. Patient has had intermittent symptoms over the last few months however he has had worsening pain in his shoulders and hips with associated stiffness. It is partially sponsored to Tylenol arthritis. If he does not take Tylenol arthritis it is worse as the day goes on. He has limited ability to lift his upper extremities against gravity secondary to pain at the shoulders. No trauma. He checks his INR weekly and it was elevated at 4.4 today for which he skipped his warfarin dose. No other acute complaints at this time. Patient's statin was discontinued last week after seeing cardiology in an effort to rule out statin induced myopathy. Related Data Home Medications Medication Instructions Recorded Confirmed tamsulosin 0.4 mg capsule 0.8 mg PO DAILY 09/10/23 03/11/24 Previous Rx's Medication Instructions Recorded dapagliflozin propanediol 10 mg 10 mg PO DAILY #90 tabs 01/31/23 tablet glipizide 5 mg tablet 5 mg PO DAILY #90 tabs 01/31/23 hydrochlorothiazide 25 mg tablet 25 mg PO DAILY #90 tabs 01/31/23 sildenafil 100 mg tablet 100 mg PO DAILY PRN sexual 01/31/23 activity #20 tabs warfarin 1 mg tablet 1 mg PO DAILY #120 tabs 01/31/23 warfarin 4 mg tablet 4 mg PO DAILY #120 tabs 01/31/23 atenolol 50 mg tablet 50 mg PO DAILY BLOOD PRESSURE #90 01/12/24 tabs simvastatin 20 mg tablet 20 mg PO HS Cholesterol #90 tabs 01/12/24 Allergies Allergy/AdvReac Type Severity Reaction Status Date / Time No Known Allergies Allergy Verified 03/11/24 08:53 [facility] Disclaimer: The information contained in this section may have been updated after the patient was seen, as this information can be updated by other users. Medical History Abnormal EKG Sinus bradycardia HLD (hyperlipidemia) [facility] cholesterol panel is excellent. He is taking simvastatin 20 mg at at bedtime. I will check this at a later date. HTN (hypertension) Blood pressure today is 136/72. In August his blood pressure was 133/61. This is very good. Will continue his current medications which include atenolol and hydrochlorothiazide. director long term care current use of anticoagulant Patient checks his own INR at home. He adjusts his Coumadin on his own. Surgical History H/O mechanical aortic valve replacement See above. He does follow with cardiology as well. Social History Smoking Status: Never smoker alcohol intake: never substance use type: denies use current occupational status: retired Travel in the last 8 weeks: None household members: spouse housing: house caffeine: Yes ROS Obtained: Yes Systems reviewed as appropriate & no additional complaints except as documented Physical Exam General General appearance: alert and in no apparent distress Head Head exam: atraumatic and normocephalic Eye Eye exam: Present PERRL ENT ENT exam: Present mucous membranes moist Neck Neck exam: Present normal inspection Chest Chest inspection: Present normal inspection and symmetric chest wall rise Respiratory Respiratory exam: Absent respiratory distress Cardiovascular Cardiovascular exam: Present regular rate and normal rhythm Abdominal Exam Abdominal exam: Present soft; Absent tenderness Extremities Exam Extremities exam: Present normal inspection and other (4 out of 5 strength bilateral upper extremities at the shoulder secondary to pain. 5 out of 5 strength remainder bilateral upper extremities. Active range of motion limited secondary to pain, passive range of motion not limited in bilateral upper extremities.) Neurological Exam Neurological exam: Present alert Psychiatric Psychiatric exam: Present normal affect Skin Skin exam: Present warm and dry Medical Decision Making Hugo Inquiry Pt receiving controlled substance: No Vital Signs: 03/18/24 12:14 Temperature 98.5 F Temperature Source Oral Pulse Rate [Right] 65 Respiratory Rate 18 Blood Pressure [Right Arm] 155/66 H Blood Pressure Mean [Right Arm] 95 02 Sat by Pulse Oximetry 96 Oxygen Delivery Method Room Air Lab Data Lab Results 03/18/24 12:27: WBC 8.9, RBC 3.63 L, Hgb 12.4 L, Hct 39.8 L, MCV 109.5 H, MCH 34.1 H, MCHC 31.2 L, RDW 14.9, Plt Count 388, MPV 8.3, Neut % (Auto) 79.7, Lymph % (Auto) 12.5, [place] % (Auto) 5.9, Eos % (Auto) 1.2, Baso % (Auto) 0.6, Neut # (Auto) 7.1, Lymph # (Auto) 1.1, Republic # (Auto) 0.5, Eos # (Auto) 0.1, Baso # (Auto) 0.1, Sodium 143, Potassium 4.1, Chloride 110 H, Carbon Dioxide 29, Anion Gap 8.1, BUN 28 H, Creatinine 1.10, Estimated Creat Clear 70, Estimated GFR 65, Est GFR ( Amer) 79, Glucose 140 H, Calcium 9.3, Total Bilirubin 0.4, AST 49, ALT 64, Alkaline Phosphatase 66, Total Creatine Kinase 31 L, Total Protein 7.1, Albumin 4.0, Globulin 3.1, Albumin/Globulin Ratio 1.3 03/18/24 12:27 03/18/24 12:27 Orders (Tests/Meds): ED MEDICATIONS Discontinued Medications Generic Name Dose Route Start Last Admin Trade Name Yeimy PRN Reason Stop Dose Admin Ketorolac Tromethamine 15 mg 03/18/24 13:00 03/18/24 13:03 Ketorolac 30mg/Ml Vial IV 03/18/24 13:01 15 mg ONCE ONE Administration Methylprednisolone Sodium Succinate 125 mg 03/18/24 12:59 03/18/24 13:03 Methylprednisolone Sod Succ 125mg Vial IV 03/18/24 13:00 125 mg ONCE ONE Administration ORDERS Category Date Time Status CBC w/Auto Diff [Complete Blood Count Auto Diff] Stat Lab 03/18/24 12:27 Results CK [Creatine Kinase] Stat Lab 03/18/24 12:27 Completed CMP [Comprehensive Metabolic Panel] Stat Lab 03/18/24 12:27 Completed ESR [Erythrocyte Sedimentation Rate] Stat Lab 03/18/24 12:27 Results Medical Decision Narrative: In summary patient is a 78-year-old male with past medical history described above who presents emergency department for evaluation of shoulder, hip pain and stiffness. Patient is hemodynamically stable nontoxic-appearing upon arrival, afebrile. Differential diagnosis includes myositis, myopathy, polymyalgia rheumatica, arthritis, among others. Workup will be conducted with hematologic labs. Initial inventions include methylprednisolone, Toradol. Initial workup reviewed by me, hematologic labs are nonactionable, no elevated CK to suggest myositis. Patient was able to ambulate at bedside and is appropriate for outpatient management at this time for continued workup of his myopathy. Critical Care Critical Care Time Critical Care Time: No
[2024-03-18] MEDS: KETOROLAC 30MG/ML VIAL 15 MG IV (13:03)
[2024-03-18] MEDS: METHYLPREDNISOLONE SOD SUCC 125MG VIAL 125 MG IV (13:03)
[2024-03-18 13:06] LABS: Basophils # 0.1 K/mm3 (0-0.2); Basophils % 0.6 % (0.1-2.0); Eosinophils # 0.1 K/mm3 (0.0-0.4); Eosinophils % 1.2 % (0.1-12.0); Hematocrit 39.8 % (42.0-52.0); Hemoglobin 12.4 g/dL (14.1-18.0); Lymphocytes # 1.1 K/mm3 (0.7-4.5); Lymphocytes % 12.5 % (10-50); Mean Corpuscular HGB Conc 31.2 g/dL (31.8-35.4); Mean Corpuscular Hemoglobin 34.1 pg (27.0-31.2); Mean Corpuscular Volume 109.5 fl (80-94); Mean Platelet Volume 8.3 fl (7.4-10.4); Monocytes # 0.5 K/mm3 (0.1-1.0); Monocytes % 5.9 % (1.7-9.3); Neutrophils # 7.1 K/mm3 (1.8-7.8); Neutrophils % 79.7 % (37.0-80.0); Platelet Count 388 K/mm3 (142-424); Red Blood Count 3.63 M/mm3 (4.60-6.20); Red Cell Distribution Width 14.9 % (11.5-17.5); White Blood Count 8.9 K/mm3 (4.8-10.8)
[2024-03-18 13:07] LABS: Chloride 110 mmol/L (98-107); Sodium 143 mmol/L (136-145)
[2024-03-18 13:08] LABS: Potassium 4.1 mmoL/L (3.5-5.1)
[2024-03-18 13:10] LABS: Alanine Aminotransferase 64 U/L (12-78); Albumin/Globulin Ratio 1.3 (1.1-1.8); Alkaline Phosphatase 66 U/L (38-126); Anion Gap 8.1 mEq/L (5-15); Aspartate Amino Transferase 49 U/L (17-59); Bilirubin,Total 0.4 mg/dl (0.2-1.3); Blood Urea Nitrogen 28 mg/dl (9-20); Calcium 9.3 mg/dl (8.4-10.2); Carbon Dioxide 29 mmol/L (22.0-30.0); Creatine Kinase 31 U/L (55-170); Creatinine Clearance Estimated 70 mL/min (50-200); Estimated Glomerular Filt Rate 65 ml/min (>60); GFR (African American) 79 ML/MIN (>60); Globulin 3.1 g/dL (1.3-3.2); Glucose 140 mg/dl (74-100); Total Protein,Serum 7.1 g/dl (6.3-8.2)
[2024-03-18 13:22] VITALS: BP 126/72; PULSE 64; RESP 18; TEMP 36.9; O2SAT 95
[2024-03-18 13:42] LABS: Erythrocyte Sedimentation Rate 80 mm/hr (0-20)
== END 2024-03-18 13:27 | disposition home or self-care (01) ==
PROVIDERS: Emergency Provider Emergency Medicine; PCP Internal Medicine
DX: M25.511 Pain in right shoulder (principal); M25.512 Pain in left shoulder; M25.551 Pain in right hip; M25.552 Pain in left hip; E11.9 Type 2 diabetes mellitus without complications; I10 Essential (primary) hypertension; E78.5 Hyperlipidemia, unspecified; Z79.84 Long term (current) use of oral hypoglycemic drugs; Z95.2 Presence of prosthetic heart valve
CPT/HCPCS: 80053; 82550; 85025; 85651; 96374; 96375; 99284; J1885; J2919

== ENCOUNTER 2024-03-26 10:40 | Outpatient (CLI) | payer MEDICARE, OTHER, SELFPAY ==
[2024-03-26 18:28] LABS: Basophils % 0.1 % (0.1-2.0); Eosinophils # 0.1 K/mm3 (0.0-0.4); Eosinophils % 0.6 % (0.1-12.0); Hematocrit 39.6 % (42.0-52.0); Hemoglobin 12.5 g/dL (14.1-18.0); Lymphocytes # 0.8 K/mm3 (0.7-4.5); Lymphocytes % 5.8 % (10-50); Mean Corpuscular HGB Conc 31.7 g/dL (31.8-35.4); Mean Corpuscular Hemoglobin 34.6 pg (27.0-31.2); Mean Corpuscular Volume 109.1 fl (80-94); Mean Platelet Volume 7.9 fl (7.4-10.4); Monocytes # 0.5 K/mm3 (0.1-1.0); Monocytes % 3.8 % (1.7-9.3); Neutrophils % 89.7 % (37.0-80.0); Platelet Count 443 K/mm3 (142-424); Red Blood Count 3.63 M/mm3 (4.60-6.20); Red Cell Distribution Width 15.7 % (11.5-17.5); White Blood Count 13.4 K/mm3 (4.8-10.8)
[2024-03-26 18:31] LABS: Hemoglobin A1C 6.7 % (4.0-6.0); MANUAL DIFFERENTIAL MANUAL DIFFERENTIAL (MANUAL DIFF)
[2024-03-26 19:03] LABS: Eosinophils % 1 % (0-3); Lymphocytes % 6 % (10-50); Macrocytosis 2+; Monocytes % 5 % (2-9); Neutrophils % 88 % (42-76); Total Cells Counted 100
[2024-03-26 19:05] LABS: Erythrocyte Sedimentation Rate 23 mm/hr (0-20)
[2024-03-26 19:06] LABS: Platelet Estimate Normal
[2024-03-26 19:17] LABS: Uric Acid 5.4 mg/dl (3.5-8.5)
[2024-03-26 19:26] LABS: C-Reactive Protein 6.1 mg/L (0-4)
[2024-04-26 12:01] LABS: Antinuclear Antibodies (ANA) Negative; Rheumatoid Factor IGA < 7 U (<7); Rheumatoid Factor IGM < 7 U (<7)
== END 2024-03-26 23:59 | disposition home or self-care (01) ==
LOC: LAB.DROPOF 03-29 10:40
PROVIDERS: PCP Nurse Practitioner Family; Visit Provider Nurse Practitioner Family
DX: M79.10 Myalgia, unspecified site (principal); E11.9 Type 2 diabetes mellitus without complications; E78.5 Hyperlipidemia, unspecified; Z79.84 Long term (current) use of oral hypoglycemic drugs
CPT/HCPCS: 83036; 84550; 85007; 85025; 85027; 85651; 86038; 86140; 86431

== ENCOUNTER 2024-04-29 13:43 | Outpatient (CLI) | payer MEDICARE, OTHER, SELFPAY ==
[2024-04-29 15:15] LABS: Prostate Specific Ag, Diagnost 41.3 ng/ml (0.0-4.0)
== END 2024-04-29 23:59 | disposition home or self-care (01) ==
LOC: LAB 13:45
PROVIDERS: Physician Assistant Medical; PCP Internal Medicine; Visit Provider Urology
DX: R97.20 Elevated prostate specific antigen [PSA] (principal)
CPT/HCPCS: 36415; 84153

== ENCOUNTER 2024-05-03 10:22 | Outpatient (CLI) | payer MEDICARE, OTHER, SELFPAY ==
--- NOTE | 2024-05-03 10:48 | XR_ITS ---
FINAL REPORT TECHNIQUE: Chest PA & Lateral CLINICAL HISTORY: EVAL FOR INFECTOINS; EVAL FOR ILD COMPARISON: None FINDINGS: 2 views of the chest were performed. The heart size is at the upper limits of normal. Sternotomy wires are present. There are mild chronic changes in the lung bases. There is no acute cardiopulmonary process. There are no pleural effusions. There is no pneumothorax. The bony thorax appears intact. IMPRESSION: No acute cardiopulmonary process. Reviewed, Interpreted and Dictated by Marlo Rao MD Transcribed by Lizzie Islas Authenticated and [facility]
[2024-05-03 11:30] LABS: Basophils # 0.1 K/mm3 (0-0.2); Basophils % 0.4 % (0.1-2.0); Eosinophils % 0.2 % (0.1-12.0); Hematocrit 44.2 % (42.0-52.0); Hemoglobin 13.4 g/dL (14.1-18.0); Lymphocytes # 0.7 K/mm3 (0.7-4.5); Lymphocytes % 5.4 % (10-50); Mean Corpuscular HGB Conc 30.3 g/dL (31.8-35.4); Mean Corpuscular Hemoglobin 33.1 pg (27.0-31.2); Mean Corpuscular Volume 109.1 fl (80-94); Mean Platelet Volume 8.6 fl (7.4-10.4); Monocytes # 0.6 K/mm3 (0.1-1.0); Monocytes % 4.6 % (1.7-9.3); Neutrophils # 12.1 K/mm3 (1.8-7.8); Neutrophils % 89.5 % (37.0-80.0); Platelet Count 398 K/mm3 (142-424); Red Blood Count 4.05 M/mm3 (4.60-6.20); Red Cell Distribution Width 16.3 % (11.5-17.5); White Blood Count 13.5 K/mm3 (4.8-10.8)
[2024-05-03 11:36] LABS: MANUAL DIFFERENTIAL MANUAL DIFFERENTIAL (MANUAL DIFF)
[2024-05-03 11:52] LABS: Eosinophils % 1 % (0-3); Lymphocytes % 4 % (10-50); Monocytes % 3 % (2-9); Neutrophils % 92 % (42-76); Total Cells Counted 100
[2024-05-03 11:53] LABS: Macrocytosis 1+; Platelet Estimate Normal; RBC Morphology Normal
[2024-05-03 11:57] LABS: Erythrocyte Sedimentation Rate 33 mm/hr (0-20)
[2024-05-03 11:59] LABS: Alanine Aminotransferase 59 U/L (12-78); Albumin Level 4.3 g/dl (3.5-5.0); Albumin/Globulin Ratio 1.4 (1.1-1.8); Alkaline Phosphatase 53 U/L (38-126); Anion Gap 12.3 mEq/L (5-15); Aspartate Amino Transferase 40 U/L (17-59); Bilirubin,Total 0.6 mg/dl (0.2-1.3); Blood Urea Nitrogen 31 mg/dl (9-20); Calcium 9.4 mg/dl (8.4-10.2); Carbon Dioxide 30 mmol/L (22.0-30.0); Chloride 102 mmol/L (98-107); Estimated Glomerular Filt Rate 73 ml/min (>60); GFR (African American) 88 ML/MIN (>60); Glucose 244 mg/dl (74-100); Potassium 4.3 mmoL/L (3.5-5.1); Sodium 140 mmol/L (136-145); Total Protein,Serum 7.3 g/dl (6.3-8.2); Uric Acid 5.8 mg/dl (3.5-8.5)
[2024-05-03 12:05] LABS: C-Reactive Protein 14.6 mg/L (0-4)
[2024-05-03 13:05] LABS: Vitamin B12 471 pg/mL (239-931)
[2024-05-03 13:07] LABS: Folate 8.93 ng/mL
[2024-05-04 06:16] LABS: HBsAg Screen Negative (Negative); HCV Ab Non Reactive (Non Reactive); Hep A Ab, IGM Negative (Negative); Hep B Core Ab, IgM Negative (Negative)
[2024-05-04 10:13] LABS: RA Latex Turbid. <10.0 IU/mL (<14.0)
[2024-05-04 13:43] LABS: Anti-Cyclic Citrullinated Pept 5 units (0-19)
[2024-05-04 15:15] LABS: Angiotensin Converting Enzyme <15 U/L (14-82); Sjogren's Anti-SS-A <0.2 AI (0.0-0.9); Sjogren's Anti-SS-B <0.2 AI (0.0-0.9)
[2024-05-05 08:19] LABS: G6PD, Quantitative 438 (127-427); RBC, G6PD 3.97 x10E6/uL (4.14-5.80)
[2024-05-05 09:14] LABS: Antinuclear Antibodies, IFA Negative (.)
[2024-05-05 21:08] LABS: QuantiFERON-TB Gold Plus Positive (Negative)
[2024-05-11 09:00] LABS: Miscellaneous Test SCANNED IMAGE
== END 2024-05-03 23:59 | disposition home or self-care (01) ==
LOC: LAB 10:24
PROVIDERS: PCP Internal Medicine; Visit Provider Internal Medicine Rheumatology
DX: M25.551 Pain in right hip (principal); Z79.899 Other long term (current) drug therapy; M25.511 Pain in right shoulder; E11.9 Type 2 diabetes mellitus without complications; R70.0 Elevated erythrocyte sedimentation rate; Z11.3 Encounter for screening for infections with a predominantly sexual mode of transmission; Z01.89 Encounter for other specified special examinations; Z79.01 Long term (current) use of anticoagulants; Z79.84 Long term (current) use of oral hypoglycemic drugs
CPT/HCPCS: 36415; 71046; 80053; 80074; 82164; 82607; 82746; 82955; 84550; 85007; 85025; 85027; 85651; 86038; 86140; 86200; 86235; 86431; 86480

== ENCOUNTER 2024-08-05 00:46 | Emergency (ER) | payer MEDICARE, OTHER, SELFPAY ==
[2024-08-05 00:53] VITALS: BP 163/81; PULSE 54; RESP 20; TEMP 36.6; O2SAT 94; BMI 24.3
--- NOTE | 2024-08-05 00:58 | PC.NURSE ---
Bladder scan 566 MD aware.
--- NOTE | 2024-08-05 01:04 | HMH.EDGENADL ---
Discharge Plan Disposition Patient Disposition: Home, Self-Care Condition: Good Prescriptions Prescriptions: No Action methotrexate sodium 2.5 mg tablet 2.5 mg PO WEEKLY Rx Instructions: Pt is taking 5 2.5 mg tablets once a week for a total of 12.5 mg. tamsulosin 0.4 mg capsule 0.8 mg PO DAILY prednisone 10 mg tablet 10 mg PO DAILY Rx Instructions: Pt is now taking 12.5 mg daily simvastatin 20 mg tablet 20 mg PO DAILY folic acid 1 mg tablet 1 mg PO DAILY omeprazole 20 mg capsule,delayed release(DR/EC) 20 mg PO DAILY enoxaparin [Lovenox] 100 mg/mL syringe 100 mg SQ Q12H 10 Days Qty: 20 0RF hydrochlorothiazide 25 mg tablet 25 mg PO DAILY Qty: 90 3RF sildenafil 100 mg tablet 100 mg PO DAILY PRN (Reason: sexual activity) Qty: 20 10RF atenolol 50 mg tablet 50 mg PO DAILY Qty: 90 3RF dapagliflozin propanediol 10 mg tablet See Rx Instructions .ROUTE .COMPLEX Qty: 90 3RF Dose Instruction: TAKE 1 TABLET DAILY Rx Instructions: TAKE 1 TABLET DAILY warfarin 4 mg tablet See Rx Instructions .ROUTE .COMPLEX Qty: 120 3RF Dose Instruction: TAKE 1 TABLET DAILY Rx Instructions: TAKE 1 TABLET DAILY glipizide 2.5 mg tablet 2.5 mg PO DAILY Qty: 90 0RF glipizide 5 mg tablet 5 mg PO DAILY warfarin 1 mg tablet See Rx Instructions .ROUTE .COMPLEX Qty: 90 3RF Dose Instruction: TAKE 1 TABLET DAILY Rx Instructions: TAKE 1 TABLET DAILY Referrals Follow up/Referrals: Tristan Billings DO [Primary Care Provider] - See instructions Activity Restrictions/Add. Instructions Additional Instructions/Restrictions: You were evaluated in the ER and are appropriate for discharge at this time. Drain your catheter bag multiple times a day, do not let it get completely full as this could cause additional obstruction. Be careful not to catch the tubing or pull on it. Follow-up with your urologist for re-evaluation and removal. Return to the ER with new, worsening, or otherwise concerning symptoms. Clinical Impressions Clinical Impression: Acute urinary retention, Hematuria Instructions Patient Instructions: DI for Acute Abdominal Pain Print Language Print Language: Polish Discharge ED Provider: Misti Toney Adult [facility] General Chief complaint: Abdominal Pain Stated complaint: prostate biopsy 08/04, unable to urinate Time Seen by Provider: 08/05/24 00:50 Mode of Arrival: Ambulatory Source of Information: Patient Limitations: No Limitations Description of Symptoms (Recalled from ER Triage Doc. by RN): Pt states he had a Prostate biopsy today and cannot urinate now for past 3 hours History of Present Illness HPI narrative: 78-year-old male presents to the ER with concerns of urinary retention. Patient reports having a prostate biopsy earlier today and has not been able to urinate for the last 3 hours. He is having mild lower abdominal discomfort and an urge to urinate without success. He does report he is still taking the Lovenox that he was converted to about a week ago in preparation for the procedure. Patient reports despite having this procedure before he has never had urinary retention in the past. He admits he passed 1 clot in his urine immediately after the procedure and since then has had mild hematuria, but became unable to urinate approximately 3 hours ago. He does not have fevers, chills, he was not having dysuria prior to this, no vomiting or diarrhea, no back pain, no dizziness. Review of systems otherwise negative, no other complaints or concerns. Related Data Home Medications ?Medication ?Instructions ?Recorded ?Confirmed tamsulosin 0.4 mg capsule 0.8 mg PO DAILY 09/10/23 07/28/24 glipizide 5 mg tablet 5 mg PO DAILY 05/03/24 07/28/24 folic acid 1 mg tablet 1 mg PO DAILY 06/21/24 07/28/24 methotrexate sodium 2.5 mg tablet 2.5 mg PO WEEKLY 06/21/24 07/28/24 omeprazole 20 mg capsule,delayed 20 mg PO DAILY 06/21/24 07/28/24 release prednisone 10 mg tablet 10 mg PO DAILY 06/21/24 07/28/24 simvastatin 20 mg tablet 20 mg PO DAILY 06/21/24 07/28/24 Previous Rx's ?Medication ?Instructions ?Recorded hydrochlorothiazide 25 mg tablet 25 mg PO DAILY #90 tabs 01/31/23 sildenafil 100 mg tablet 100 mg PO DAILY PRN sexual 01/31/23 activity #20 tabs atenolol 50 mg tablet 50 mg PO DAILY BLOOD PRESSURE #90 01/12/24 tabs dapagliflozin propanediol 10 mg See Rx Instructions .Route 03/29/24 tablet .COMPLEX #90 tabs warfarin 4 mg tablet See Rx Instructions .Route 03/29/24 .COMPLEX #120 tabs glipizide 2.5 mg tablet 2.5 mg PO DAILY #90 tabs 05/03/24 warfarin 1 mg tablet See Rx Instructions .Route 07/05/24 .COMPLEX #90 tabs enoxaparin 100 mg/mL subcutaneous 100 mg SQ Q12H 10 days #20 mL 07/28/24 syringe (Lovenox) Allergies Allergy/AdvReac Type Severity Reaction Status Date / Time No Known Allergies Allergy Verified 07/28/24 13:14 [facility] Disclaimer: The information contained in this section may have been updated after the patient was seen, as this information can be updated by other users. Medical History Latent tuberculosis Abnormal EKG Sinus bradycardia HLD (hyperlipidemia) HTN (hypertension) skilled nursing current use of anticoagulant Surgical History H/O mechanical aortic valve replacement Social History Smoking Status: Never smoker alcohol intake: never substance use type: denies use current occupational status: retired Travel in the last 8 weeks: None household members: spouse housing: house caffeine: Yes Other Medical History Have you received the Pneumonia Vaccine: Yes ROS Obtained: Yes Systems reviewed as appropriate & no additional complaints except as documented ROS per HPI Physical Exam General General appearance: alert and in no apparent distress Head Head exam: atraumatic and normocephalic Eye Eye exam: Present PERRL and EOMI ENT ENT exam: Present mucous membranes moist Neck Neck exam: Present normal inspection and full ROM Chest Chest inspection: Present symmetric chest wall rise Respiratory Respiratory exam: Absent respiratory distress or stridor Cardiovascular Cardiovascular exam: Present regular rate and normal rhythm Abdominal Exam Abdominal exam: Present soft and tenderness (Very mild suprapubic discomfort with palpation); Absent distention, guarding or rebound Extremities Exam Extremities exam: Present full ROM Back Exam Back exam: Absent CVA tenderness (R) or CVA tenderness (L) Neurological Exam Neurological exam: Present alert and oriented X3; Absent motor sensory deficit Psychiatric Psychiatric exam: Present normal affect and normal mood Skin Skin exam: Present warm and dry Medical Decision Making Medical Records Medical records reviewed: Yes I reviewed the patient's medical records. Screening: Per USPSTF and CDC recommendations, given the prevalence of disease in our region, it is our hospital?s policy to screen for HIV and viral Hepatitis for all patients aged 18 and over and those with ongoing risk factors. MR Comment: Review of recent records demonstrates patient had MRI demonstrating a suspicious lesion on the prostate which was the indication for biopsy. He has reportedly had prostatic biopsies previously. My review of note from Dr. Billings from July 27 indicates patient was being converted to Lovenox from Coumadin prior to his procedure. He does also have a history of arthritis and follows with rheumatology. Hugo Inquiry Pt receiving controlled substance: No Vital Signs: 08/05/24 00:53 Temperature 97.8 F Temperature Source Oral Pulse Rate [Right Brachial] 54 L Respiratory Rate 20 Blood Pressure [Right Arm] 163/81 H Blood Pressure Mean [Right Arm] 108 Blood Pressure Source [Right Arm] Automatic Cuff Blood Pressure Position [Right Arm] Sitting 02 Sat by Pulse Oximetry 94 L Oxygen Delivery Method Room Air Lab Data Lab Results 08/05/24 01:20: Urine Color Frances, Urine Appearance Cloudy, Urine pH 6.0, Ur Specific [place] 1.025, Urine Protein 1+ A, Urine Glucose (UA) 3+, Urine Ketones Negative, Urine Blood 3+ A, Urine Nitrate Negative, Urine Bilirubin Negative, Urine Urobilinogen 0.2, Ur Leukocyte Esterase Negative Orders (Tests/Meds): ORDERS Category Date Time Status HIV (1&2) Antibody Rapid Stat Lab 08/05/24 00:56 Ordered Hep C Ab with Reflex to RNA Stat Lab 08/05/24 00:56 Ordered Urinalysis and Microscopic Stat Lab 08/05/24 01:20 Results Medical Decision Narrative: In summary, this 78-year-old male with history of type 2 diabetes, BPH, hyperlipidemia, hypertension, all of which are comorbidities of current condition and increases overall morbidity presents to the emergency department today with concerns of urinary retention after prostate biopsy earlier today. On initial evaluation patient is hemodynamically stable, afebrile, overall well-appearing though he does have mild suprapubic discomfort which is anticipated given his known urinary retention. Differential diagnosis includes but is not limited to urinary retention, hematuria, low suspicion for but did consider infection, I have extremely low suspicion for any kidney dysfunction given he has only had retention for the last few hours. Bladder scan was performed and demonstrated 560 mL. Patient has attempted to urinate multiple times without success voiding. Nursing attempted to place a catheter initially unsuccessfully, coud? was attempted and was successful. Urine collected was obviously bloody. Patient had 900mL out initially. Urinalysis positive for blood but negative for leukocyte esterase and nitrates, no concern for infection. Extremely low suspicion for postobstructive diuresis since patient had very short duration of urinary retention and has only had very slow drainage of urine since his initial 900 mL output. Patient is appropriate for discharge at this time. He is going to call Dr. Uriostegui, his urologist, in the morning for additional instructions. I gave him instructions on [place] monitoring and maintenance, follow-up instructions, as well as strict return precautions for the ER. He indicated understanding and the patient was discharged in stable condition Critical Care Critical Care Time Critical Care Time: No
[2024-08-05 01:25] LABS: Appearance,Urine CLOUDY (Clear); Bilirubin,Urine Negative (Negative); Blood, Urine 3+ (Negative); Color,Urine AMBER (Yellow); Glucose,Urine (UA) 3+ (Negative); Ketones,Urine Negative (Negative); Leukocyte Esterase,Urine Negative (Negative); Microscopic, Urine URINE MICROSCOPIC (MICROSCOPIC); Nitrate,Urine Negative (Negative); Protein,Urine 1+ (Negative); Specific Gravity, Urine 1.025 (1.005-1.030); Urobilinogen,Urine 0.2 EU/dl (0.2)
[2024-08-05 01:34] LABS: RBC,Urine TNTC #/hpf (0-3)
[2024-08-05 01:43] VITALS: BP 129/67; PULSE 50; RESP 18; TEMP 36.6; O2SAT 96
== END 2024-08-05 01:57 | disposition home or self-care (01) ==
PROVIDERS: Emergency Provider Emergency Medicine; PCP Internal Medicine
DX: R10.30 Lower abdominal pain, unspecified (principal); R33.8 Other retention of urine; R31.9 Hematuria, unspecified
CPT/HCPCS: 51702; 81001; 99283

== ENCOUNTER 2024-08-07 09:08 | Emergency (ER) | payer MEDICARE, OTHER, SELFPAY ==
[2024-08-07 09:09] VITALS: BP 136/78; PULSE 63; RESP 18; TEMP 36.6; O2SAT 98; BMI 24.3
[2024-08-07 09:44] LABS: Microscopic, Urine URINE MICROSCOPIC (MICROSCOPIC)
--- NOTE | 2024-08-07 10:02 | HMH.EDGENADL ---
Discharge Plan Disposition Patient Disposition: Home, Self-Care Prescriptions Prescriptions: No Action methotrexate sodium 2.5 mg tablet 2.5 mg PO WEEKLY Rx Instructions: Pt is taking 5 2.5 mg tablets once a week for a total of 12.5 mg. tamsulosin 0.4 mg capsule 0.8 mg PO DAILY prednisone 10 mg tablet 10 mg PO DAILY Rx Instructions: Pt is now taking 12.5 mg daily simvastatin 20 mg tablet 20 mg PO DAILY folic acid 1 mg tablet 1 mg PO DAILY omeprazole 20 mg capsule,delayed release(DR/EC) 20 mg PO DAILY enoxaparin [Lovenox] 100 mg/mL syringe 100 mg SQ Q12H 10 Days Qty: 20 0RF hydrochlorothiazide 25 mg tablet 25 mg PO DAILY Qty: 90 3RF sildenafil 100 mg tablet 100 mg PO DAILY PRN (Reason: sexual activity) Qty: 20 10RF atenolol 50 mg tablet 50 mg PO DAILY Qty: 90 3RF dapagliflozin propanediol 10 mg tablet See Rx Instructions .ROUTE .COMPLEX Qty: 90 3RF Dose Instruction: TAKE 1 TABLET DAILY Rx Instructions: TAKE 1 TABLET DAILY warfarin 4 mg tablet See Rx Instructions .ROUTE .COMPLEX Qty: 120 3RF Dose Instruction: TAKE 1 TABLET DAILY Rx Instructions: TAKE 1 TABLET DAILY glipizide 2.5 mg tablet 2.5 mg PO DAILY Qty: 90 0RF glipizide 5 mg tablet 5 mg PO DAILY warfarin 1 mg tablet See Rx Instructions .ROUTE .COMPLEX Qty: 90 3RF Dose Instruction: TAKE 1 TABLET DAILY Rx Instructions: TAKE 1 TABLET DAILY Referrals Follow up/Referrals: Tristan Billings DO [Primary Care Provider] - See instructions Activity Restrictions/Add. Instructions Additional Instructions/Restrictions: Call your family doctor to establish care for this visit to the emergency department and schedule follow-up within 48 hours to ensure improvement. If you have any worsening of your condition or any other concerning signs or symptoms, return to the emergency department or your primary care doctor for further evaluation. Maintain follow-up on Friday as discussed. Clinical Impressions Clinical Impression: Hematuria Instructions Patient Instructions: DI for Urinary Tract Infection (UTI), DI for Urinary Tract Infection in Children Print Language Print Language: Nicarag[place] Discharge ED Provider: Elio Thrasher General Adult [facility] General Chief complaint: Urogenital-Male Stated complaint: blood in urine Time Seen by Provider: 08/07/24 09:13 Mode of Arrival: Ambulatory Source of Information: Patient and Spouse Limitations: No Limitations Description of Symptoms (Recalled from ER Triage Doc. by RN): penis burning,blood in urine History of Present Illness HPI narrative: Please note that above description of symptoms, in this electronic medical record under categorization of recalled from ER triage doctor by RN are reflective of an initial nursing assessment, however, is not reflective of my full history and physical exam that was personally taken and clarified. Consequentially, this preceding description of symptoms, which may include the patient's categorized chief complaint in the EMR, do not reflect my personal clinical impression, and the ultimate description of history of present illness and patient stated complaints should be deferred to this section of the note. Unless stated otherwise or congruent with this section of the note, additional signs, symptoms, or incongruence should be interpreted as inaccurate with my clinical impression. Related Data Home Medications ?Medication ?Instructions ?Recorded ?Confirmed tamsulosin 0.4 mg capsule 0.8 mg PO DAILY 09/10/23 07/28/24 glipizide 5 mg tablet 5 mg PO DAILY 05/03/24 07/28/24 folic acid 1 mg tablet 1 mg PO DAILY 06/21/24 07/28/24 methotrexate sodium 2.5 mg tablet 2.5 mg PO WEEKLY 06/21/24 07/28/24 omeprazole 20 mg capsule,delayed 20 mg PO DAILY 06/21/24 07/28/24 release prednisone 10 mg tablet 10 mg PO DAILY 06/21/24 07/28/24 simvastatin 20 mg tablet 20 mg PO DAILY 06/21/24 07/28/24 Previous Rx's ?Medication ?Instructions ?Recorded hydrochlorothiazide 25 mg tablet 25 mg PO DAILY #90 tabs 01/31/23 sildenafil 100 mg tablet 100 mg PO DAILY PRN sexual 01/31/23 activity #20 tabs atenolol 50 mg tablet 50 mg PO DAILY BLOOD PRESSURE #90 01/12/24 tabs dapagliflozin propanediol 10 mg See Rx Instructions .Route 03/29/24 tablet .COMPLEX #90 tabs warfarin 4 mg tablet See Rx Instructions .Route 03/29/24 .COMPLEX #120 tabs glipizide 2.5 mg tablet 2.5 mg PO DAILY #90 tabs 05/03/24 warfarin 1 mg tablet See Rx Instructions .Route 07/05/24 .COMPLEX #90 tabs enoxaparin 100 mg/mL subcutaneous 100 mg SQ Q12H 10 days #20 mL 07/28/24 syringe (Lovenox) Allergies Allergy/AdvReac Type Severity Reaction Status Date / Time No Known Allergies Allergy Verified 07/28/24 13:14 [facility] Disclaimer: The information contained in this section may have been updated after the patient was seen, as this information can be updated by other users. 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 Surgical History H/O mechanical aortic valve replacement Social History Smoking Status: Never smoker alcohol intake: never substance use type: denies use current occupational status: retired household members: spouse housing: house caffeine: Yes Other Medical History Have you received the Pneumonia Vaccine: Yes ROS Obtained: Yes All systems reviewed & no additional complaints except as documented Physical Exam General General appearance: alert Head Head exam: atraumatic and normocephalic Eye Eye exam: Present normal appearance, PERRL and EOMI Neck Neck exam: Present normal inspection, full ROM and trachea midline Respiratory Respiratory exam: Absent respiratory distress, wheezes, stridor, accessory muscle use or prolonged expiratory phase Cardiovascular Cardiovascular exam: Present other (Pulses equal symmetric in upper and lower extremities) Abdominal Exam Abdominal exam: Present soft; Absent distention, tenderness, guarding, rebound or pulsatile mass exam: Present other (Catheter in place, blood at the meatus. Gross blood in Beltre bag) Extremities Exam Extremities exam: Absent edema Neurological Exam Neurological exam: Present alert, oriented X3 and CN II-XII intact; Absent motor sensory deficit Skin Skin exam: Present warm and dry; Absent diaphoresis or erythema Medical Decision Making Medical Records Medical records reviewed: Yes I reviewed the patient's medical records. Screening: Per USPSTF and CDC recommendations, given the prevalence of disease in our region, it is our hospital?s policy to screen for HIV and viral Hepatitis for all patients aged 18 and over and those with ongoing risk factors. Hugo Inquiry Pt receiving controlled substance: No Hugo was queried for this patient: No Vital Signs: 08/07/24 09:09 Temperature 97.8 F Temperature Source Oral Pulse Rate [Right] 63 Respiratory Rate 18 Blood Pressure [Right Arm] 136/78 Blood Pressure Mean [Right Arm] 97 02 Sat by Pulse Oximetry 98 Oxygen Delivery Method Room Air Lab Data Lab Results 08/07/24 09:27: Urine Color Red, Urine Appearance Turbid, Urine pH 7.0, Ur Specific [place] 1.025, Urine Protein 3+ A, Urine Glucose (UA) 2+, Urine Ketones Negative, Urine Blood 3+ A, Urine Nitrate Negative, Urine Bilirubin Negative, Urine Urobilinogen 1.0, Ur Leukocyte Esterase Negative, Urine RBC Tntc, Urine WBC Occasional, Ur Squamous Epith Cells None, Urine Bacteria Trace 08/07/24 10:10: WBC 8.5, RBC 3.38 L, Hgb 10.9 L, Hct 33.8 L, MCV 99.9 H, MCH 32.3 H, MCHC 32.3, RDW 18.8 H, Plt Count 320, MPV 7.9, Neut % (Auto) 79.5, Lymph % (Auto) 12.7, [place] % (Auto) 6.5, Eos % (Auto) 0.9, Baso % (Auto) 0.5, Neut # (Auto) 6.7, Lymph # (Auto) 1.1, [place] # (Auto) 0.6, Eos # (Auto) 0.1, Baso # (Auto) 0.0, PT 10.8, INR 0.96, APTT 26.6, Sodium 141, Potassium 3.9, Chloride 105, Carbon Dioxide 31 H, Anion Gap 8.9, BUN 21 H, Creatinine 1.00, Estimated Creat Clear 77, Estimated GFR 73, Est GFR ( Amer) 88, Glucose 119 H, Calcium 9.2, Total Bilirubin 0.7, AST 34, ALT 91 H, Alkaline Phosphatase 42, Total Protein 6.4, Albumin 4.1, Globulin 2.3, Albumin/Globulin Ratio 1.8 08/07/24 10:10 08/07/24 10:10 Orders (Tests/Meds): ED MEDICATIONS Discontinued Medications Generic Name Dose Route Start Last Admin Trade Name Freq PRN Reason Stop Dose Admin Iopamidol 75 ml 08/07/24 11:26 08/07/24 11:27 Iopamidol-370 (76%);100ml Bottle IV 11/23/24 11:27 75 ml ONCE ONE Administration Sodium Chloride 10 ml 08/07/24 11:26 08/07/24 11:27 Sodium Chloride 0.9% 10ml Syr (Rad Only) IV 08/07/24 11:27 10 ml ONCE ONE Administration ORDERS Category Date Time Status CT abdomen pelvis w con Stat Cat Scan 08/07/24 10:05 Completed CBC w/Auto Diff [Complete Blood Count Auto Diff] Stat Lab 08/07/24 10:10 Completed CMP [Comprehensive Metabolic Panel] Stat Lab 08/07/24 10:10 Completed PT INR [Prothrombin Time INR] Stat Lab 08/07/24 10:10 Completed PTT [Activated Partial Thrombo Time] Stat Lab 08/07/24 10:10 Completed UA [Urinalysis and Microscopic] Stat Lab 08/07/24 09:27 Completed Medical Decision Narrative: 78-year-old male history of hypertension, hyperlipidemia, aortic valve stenosis status post mechanical valve replacement generally on warfarin (currently on Lovenox subcutaneous injections secondary to recent procedure), BPH with recent transrectal prostate biopsy 2 days prior presenting with gross blood in Beltre catheter. Patient states that he has been having crampy lower abdominal pain associated with feeling of needing to urinate for about 24 hours. Passed a clot yesterday, 08/06. Woke up today, 08/07, felt same crampy urge to urinate and was passing gross blood in the Beltre catheter again. No fevers, chills, vomiting, flank pain. No changes to bowel habits. Given patient is on Lovenox, came to the emergency department for further evaluation given gross hematuria. Typically follows in [place] with Dr. Uriostegui at [facility]. History was obtained via conversation with patient. On arrival, patient hemodynamically stable, alert, [oriented x4, ][appropriate, ]GCS [15], moving all extremities spontaneously, pupils equal and reactive to light. Full physical exam performed and significant for well-appearing male no acute distress. Gross blood in Beltre bag with blood at the urethral meatus. Currently draining, no obvious clots in the bag. No abdominal tenderness, flank tenderness, overlying skin changes. Hemodynamically stable. Differential includes traumatic placement, malignancy, UTI, procedural complication, bleeding dyscrasia, among others. Patient placed on continuous cardiac monitoring and continuous pulse ox with initial blood pressure 136/78, heart rate 63, saturation 98% on room air. Workup independently interpreted and significant for hematuria. Nonactionable chemistry with normal kidney function. Patient's hemoglobin 10.9 down from over 13 3 months prior. On independent interpretation of imaging, no acute prostate abscess or hematoma. Beltre catheter in place. See radiology read for full review of final results. [facility] after hours number was contacted at [phone] and I spoke to Dr. Davis around 12:40 PM. Recommended maintaining Beltre catheter, following up outpatient. I feel this is appropriate. Because patient at baseline without signs or symptoms of clinical decompensation, deemed appropriate for discharge. Results were relayed to patient who voiced understanding and were agreeable to outpatient management and follow up. I discussed my clinical impression with patient and answered all questions. At this time, the evidence for any other entities in the differential is insufficient to warrant any further testing or ED observation. This was explained as well. Advisory was given that persistent or worsening symptoms require further evaluation. I confirmed the understanding of this discussion. Cavity Pump Operator disclaimer Much of this encounter note is an electronic electronics utility worker spoken language to printed text. Electronic electronics utility worker of the spoken language may permit errors. Although I have reviewed the note, some errors may still exist. Critical Care Critical Care Time Critical Care Time: No
--- NOTE | 2024-08-07 10:05 | CT_ITS ---
PROCEDURE INFORMATION: Exam: CT Abdomen And Pelvis With Contrast Exam date and time: 08/07/2024 11:26 AM Age: 78 years old Clinical indication: Other: Gross hematuria; Prior surgery; Surgery date: <1 month; Surgery type: Prostate biopsy; Additional info: Gross hematuria S/P transrectal prostate biopsy TECHNIQUE: Imaging protocol: Computed tomography of the abdomen and pelvis with contrast. Radiation optimization: All CT scans at this facility use at least one of these dose optimization techniques: automated exposure control; mA and/or kV adjustment per patient size (includes targeted exams where dose is matched to clinical indication); or iterative reconstruction. Contrast material: ISOVUE; Contrast volume: 75 ml; Contrast route: IV; COMPARISON: US ABDOMEN LIMITED 11/03/2019 7:41 AM FINDINGS: Liver: Fatty infiltration of the liver. Gallbladder and biliary ducts: Normal. No calcified stones. No ductal dilation. Pancreas: Normal. No ductal dilation. Spleen: Normal. No splenomegaly. Adrenal glands: Left adrenal nodule measures 1.9 x 1.4 cm. Statistically most likely adrenal adenoma, although characterization not possible on contrast examination. Right adrenal gland unremarkable. Kidneys and ureters: Solid density lesion midpole right kidney measures 1.1 x 1.1 cm. May be hemorrhagic or proteinaceous cyst. Multiple small cortical renal cysts bilaterally. No hydronephrosis. Stomach and bowel: Unremarkable. No obstruction. No mucosal thickening. Appendix: No evidence of appendicitis. Intraperitoneal space: Unremarkable. No free air. No significant fluid collection. Vasculature: Unremarkable. No abdominal aortic aneurysm. Lymph nodes: Unremarkable. No enlarged lymph nodes. Urinary bladder: Beltre catheter into the urinary bladder. Reproductive: Prostate gland enlarged measuring 4.7 x 5.5 cm. Mildly heterogeneous in appearance with multiple small calcifications. No evidence of prostate hematoma. Bones/joints: Unremarkable. No acute fracture. Soft tissues: Unremarkable. IMPRESSION: 1. Prostate gland enlarged measuring 4.7 x 5.5 cm. Mildly heterogeneous in appearance with multiple small calcifications. No evidence of prostate hematoma. 2. Solid density lesion midpole right kidney measures 1.1 x 1.1 cm. May be hemorrhagic or proteinaceous cyst. If not already performed, consider renal ultrasound. 3. Left adrenal nodule measures 1.9 x 1.4 cm. Statistically most likely adrenal adenoma, although characterization not possible on contrast examination. Consider additional workup. COMMENTS: Consistent with the [employer]'s Incidental Findings Committee white paper (J Am Wily Radiol 2018): Any incidental renal lesion less than 1 cm or classified as too small to characterize, or any incidental cystic renal lesion characterized as simple-appearing, is likely benign. No follow-up imaging is recommended for these lesions per consensus recommendations based on imaging criteria.
[2024-08-07 10:13] LABS: Bilirubin,Urine Negative (Negative); Blood, Urine 3+ (Negative); Glucose,Urine (UA) 2+ (Negative); Ketones,Urine Negative (Negative); Leukocyte Esterase,Urine Negative (Negative); Nitrate,Urine Negative (Negative); Protein,Urine 3+ (Negative); Specific Gravity, Urine 1.025 (1.005-1.030)
[2024-08-07 10:16] LABS: Appearance,Urine Turbid (Clear); Color,Urine Red (Yellow)
[2024-08-07 10:31] LABS: Bacteria,Urine Trace /lpf; RBC,Urine TNTC #/hpf (0-3); WBC,Urine Occasional #/hpf (0-3)
[2024-08-07 10:32] LABS: Basophils % 0.5 % (0.1-2.0); Eosinophils # 0.1 K/mm3 (0.0-0.4); Eosinophils % 0.9 % (0.1-12.0); Hematocrit 33.8 % (42.0-52.0); Hemoglobin 10.9 g/dL (14.1-18.0); Lymphocytes # 1.1 K/mm3 (0.7-4.5); Lymphocytes % 12.7 % (10-50); Mean Corpuscular HGB Conc 32.3 g/dL (31.8-35.4); Mean Corpuscular Hemoglobin 32.3 pg (27.0-31.2); Mean Corpuscular Volume 99.9 fl (80-94); Mean Platelet Volume 7.9 fl (7.4-10.4); Monocytes # 0.6 K/mm3 (0.1-1.0); Monocytes % 6.5 % (1.7-9.3); Neutrophils # 6.7 K/mm3 (1.8-7.8); Neutrophils % 79.5 % (37.0-80.0); Platelet Count 320 K/mm3 (142-424); Red Blood Count 3.38 M/mm3 (4.60-6.20); Red Cell Distribution Width 18.8 % (11.5-17.5); White Blood Count 8.5 K/mm3 (4.8-10.8)
[2024-08-07 10:43] LABS: Alanine Aminotransferase 91 U/L (12-78); Albumin Level 4.1 g/dl (3.5-5.0); Albumin/Globulin Ratio 1.8 (1.1-1.8); Alkaline Phosphatase 42 U/L (38-126); Anion Gap 8.9 mEq/L (5-15); Aspartate Amino Transferase 34 U/L (17-59); Bilirubin,Total 0.7 mg/dl (0.2-1.3); Blood Urea Nitrogen 21 mg/dl (9-20); Calcium 9.2 mg/dl (8.4-10.2); Carbon Dioxide 31 mmol/L (22.0-30.0); Chloride 105 mmol/L (98-107); Creatinine Clearance Estimated 77 mL/min (50-200); Estimated Glomerular Filt Rate 73 ml/min (>60); GFR (African American) 88 ML/MIN (>60); Globulin 2.3 g/dL (1.3-3.2); Glucose 119 mg/dl (74-100); Potassium 3.9 mmoL/L (3.5-5.1); Sodium 141 mmol/L (136-145); Total Protein,Serum 6.4 g/dl (6.3-8.2)
[2024-08-07 10:55] LABS: Activated Partial Thrombo Time 26.6 seconds (22.8-30.6); INR 0.96 (0.9-1.1); Prothrombin Time 10.8 seconds (10.1-12.5)
[2024-08-07] MEDS: IOPAMIDOL-370 (76%);100ML BOTTLE 75 ML IV (11:27)
[2024-08-07] MEDS: SODIUM CHLORIDE 0.9% 10ML SYR (RAD ONLY) 10 ML IV (11:27)
--- NOTE | 2024-08-07 12:02 | PC.NURSE ---
o/p with [facility] at this time
[2024-08-07 13:19] VITALS: BP 131/64; PULSE 50; RESP 18; TEMP 36.6; O2SAT 96
== END 2024-08-07 13:36 | disposition home or self-care (01) ==
PROVIDERS: Emergency Provider Emergency Medicine; PCP Internal Medicine
DX: R31.9 Hematuria, unspecified (principal); R30.9 Painful micturition, unspecified
CPT/HCPCS: 74177; 80053; 81001; 85025; 85610; 85730; 99285; Q9967

== ENCOUNTER 2024-08-07 18:47 | Emergency (ER) | payer MEDICARE, OTHER, SELFPAY ==
--- NOTE | 2024-08-07 19:00 | ED_ITS ---
<Statement entered by Frances Lara DO - 08/07/24 19:21> I was consulted by the SIOMARA, and we discussed the complexity of the problems being addressed. I approved the treatment and management plan for this patient's care in the emergency department, thus performing a substantive portion of the medical decision making. Frances Lara DO Discharge Plan Disposition Patient Disposition: Home, Self-Care Condition: Good Prescriptions Prescriptions: No Action methotrexate sodium 2.5 mg tablet 2.5 mg PO WEEKLY Rx Instructions: Pt is taking 5 2.5 mg tablets once a week for a total of 12.5 mg. tamsulosin 0.4 mg capsule 0.8 mg PO DAILY prednisone 10 mg tablet 10 mg PO DAILY Rx Instructions: Pt is now taking 12.5 mg daily simvastatin 20 mg tablet 20 mg PO DAILY folic acid 1 mg tablet 1 mg PO DAILY omeprazole 20 mg capsule,delayed release(DR/EC) 20 mg PO DAILY enoxaparin [Lovenox] 100 mg/mL syringe 100 mg SQ Q12H 10 Days Qty: 20 0RF hydrochlorothiazide 25 mg tablet 25 mg PO DAILY Qty: 90 3RF sildenafil 100 mg tablet 100 mg PO DAILY PRN (Reason: sexual activity) Qty: 20 10RF atenolol 50 mg tablet 50 mg PO DAILY Qty: 90 3RF dapagliflozin propanediol 10 mg tablet See Rx Instructions .ROUTE .COMPLEX Qty: 90 3RF Dose Instruction: TAKE 1 TABLET DAILY Rx Instructions: TAKE 1 TABLET DAILY warfarin 4 mg tablet See Rx Instructions .ROUTE .COMPLEX Qty: 120 3RF Dose Instruction: TAKE 1 TABLET DAILY Rx Instructions: TAKE 1 TABLET DAILY glipizide 2.5 mg tablet 2.5 mg PO DAILY Qty: 90 0RF glipizide 5 mg tablet 5 mg PO DAILY warfarin 1 mg tablet See Rx Instructions .ROUTE .COMPLEX Qty: 90 3RF Dose Instruction: TAKE 1 TABLET DAILY Rx Instructions: TAKE 1 TABLET DAILY Referrals Follow up/Referrals: Tristan Billings DO [Primary Care Provider] - See instructions Activity Restrictions/Add. Instructions Additional Instructions/Restrictions: Return to the ED for any further issues. Clinical Impressions Clinical Impression: Hematuria Instructions Patient Instructions: DI for Urinary Retention in Men Print Language Print Language: Malaysian Discharge ED Provider: Frances Lara General Adult HPI General Stated complaint: F/C not draining Time Seen by Provider: 08/07/24 18:50 History of Present Illness HPI narrative: This is a 78-year-old male who presents back to the ED for the second time today because he has blood in his catheter. He says now he felt some pressure and urine came out around the insertion point of the catheter. He has no pain just pressure. Continues to have hematuria. He is on Lovenox. He does have BPH with a recent biopsy. He passed a clot yesterday and noticed the blood today. No other symptoms noticed Related Data Home Medications ?Medication ?Instructions ?Recorded ?Confirmed tamsulosin 0.4 mg capsule 0.8 mg PO DAILY 09/10/23 07/28/24 glipizide 5 mg tablet 5 mg PO DAILY 05/03/24 07/28/24 folic acid 1 mg tablet 1 mg PO DAILY 06/21/24 07/28/24 methotrexate sodium 2.5 mg tablet 2.5 mg PO WEEKLY 06/21/24 07/28/24 omeprazole 20 mg capsule,delayed 20 mg PO DAILY 06/21/24 07/28/24 release prednisone 10 mg tablet 10 mg PO DAILY 06/21/24 07/28/24 simvastatin 20 mg tablet 20 mg PO DAILY 06/21/24 07/28/24 Previous Rx's ?Medication ?Instructions ?Recorded hydrochlorothiazide 25 mg tablet 25 mg PO DAILY #90 tabs 01/31/23 sildenafil 100 mg tablet 100 mg PO DAILY PRN sexual 01/31/23 activity #20 tabs atenolol 50 mg tablet 50 mg PO DAILY BLOOD PRESSURE #90 01/12/24 tabs dapagliflozin propanediol 10 mg See Rx Instructions .Route 03/29/24 tablet .COMPLEX #90 tabs warfarin 4 mg tablet See Rx Instructions .Route 03/29/24 .COMPLEX #120 tabs glipizide 2.5 mg tablet 2.5 mg PO DAILY #90 tabs 05/03/24 warfarin 1 mg tablet See Rx Instructions .Route 07/05/24 .COMPLEX #90 tabs enoxaparin 100 mg/mL subcutaneous 100 mg SQ Q12H 10 days #20 mL 07/28/24 syringe (Lovenox) Allergies Allergy/AdvReac Type Severity Reaction Status Date / Time No Known Allergies Allergy Verified 07/28/24 13:14 [facility] Disclaimer: The information contained in this section may have been updated after the patient was seen, as this information can be updated by other users. 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 Surgical History H/O mechanical aortic valve replacement Social History (Updated 08/07/24 @ 12:56 by Elio Thrasher MD) Smoking Status: Never smoker alcohol intake: never substance use type: denies use current occupational status: retired household members: spouse housing: house caffeine: Yes Other Medical History Have you received the Pneumonia Vaccine: Yes ROS Obtained: Yes Systems reviewed as appropriate & no additional complaints except as documented Constitutional Constitutional: Reports as per HPI Physical Exam General General appearance: alert and in no apparent distress Head Head exam: atraumatic and normocephalic Eye Eye exam: Present normal appearance, PERRL and EOMI Neck Neck exam: Present normal inspection, full ROM and trachea midline Respiratory Respiratory exam: Present normal lung sounds bilaterally Cardiovascular Cardiovascular exam: Present regular rate, normal rhythm, normal heart sounds, +S1 and +S2 Abdominal Exam Abdominal exam: Present soft and normal bowel sounds exam: Present other (Small amount of blood around the insertion site, blood in the bag) Extremities Exam Extremities exam: Present normal inspection, full ROM and normal capillary refill Neurological Exam Neurological exam: Present alert and oriented X3 Skin Skin exam: Present warm, dry and intact Medical Decision Making Medical Records Screening: Per USPSTF and CDC recommendations, given the prevalence of disease in our region, it is our hospital?s policy to screen for HIV and viral Hepatitis for all patients aged 18 and over and those with ongoing risk factors. Hugo Inquiry Pt receiving controlled substance: No Medical Decision Narrative: Insert review patient is a 78-year-old male presenting to the emergency department for evaluation of evaluation of urinary retention, catheter not draining. Patient is hemodynamically stable and nontoxic-appearing upon arrival, afebrile. Differential diagnosis includes retention, bladder, catheter not draining. Nursing staff flushed catheter and catheter is now draining perfectly. Patient discharged Critical Care Critical Care Time Critical Care Time: No
[2024-08-07 19:05] VITALS: BP 142/77; PULSE 66; RESP 18; TEMP 36.7; O2SAT 99; BMI 24.3
--- NOTE | 2024-08-07 19:09 | PC.NURSE ---
Bladder scanner showed 201 cc urine in bladder. Bladder irrigation with pistol syringe 120 cc instilled. Bladder drained blood tinged urine 300 cc. Pt. reports feeling much better and pain relieved.
[2024-08-07 19:11] VITALS: BP 132/74; PULSE 74; RESP 16; TEMP 36.7; O2SAT 99
== END 2024-08-07 19:12 | disposition home or self-care (01) ==
PROVIDERS: Emergency Provider Emergency Medicine; PCP Internal Medicine
DX: R31.9 Hematuria, unspecified (principal); R33.9 Retention of urine, unspecified
CPT/HCPCS: 99282

== ENCOUNTER 2024-08-09 00:55 | Emergency (ER) | payer MEDICARE, OTHER, SELFPAY ==
[2024-08-09 00:56] VITALS: BP 122/71; PULSE 59; RESP 20; TEMP 36.9; O2SAT 95; BMI 24.3
--- NOTE | 2024-08-09 01:10 | ED_ITS ---
Discharge Plan Prescriptions Prescriptions: No Action methotrexate sodium 2.5 mg tablet 2.5 mg PO WEEKLY Rx Instructions: Pt is taking 5 2.5 mg tablets once a week for a total of 12.5 mg. tamsulosin 0.4 mg capsule 0.8 mg PO DAILY prednisone 10 mg tablet 10 mg PO DAILY Rx Instructions: Pt is now taking 12.5 mg daily simvastatin 20 mg tablet 20 mg PO DAILY folic acid 1 mg tablet 1 mg PO DAILY omeprazole 20 mg capsule,delayed release(DR/EC) 20 mg PO DAILY enoxaparin [Lovenox] 100 mg/mL syringe 100 mg SQ Q12H 10 Days Qty: 20 0RF hydrochlorothiazide 25 mg tablet 25 mg PO DAILY Qty: 90 3RF sildenafil 100 mg tablet 100 mg PO DAILY PRN (Reason: sexual activity) Qty: 20 10RF atenolol 50 mg tablet 50 mg PO DAILY Qty: 90 3RF dapagliflozin propanediol 10 mg tablet See Rx Instructions .ROUTE .COMPLEX Qty: 90 3RF Dose Instruction: TAKE 1 TABLET DAILY Rx Instructions: TAKE 1 TABLET DAILY warfarin 4 mg tablet See Rx Instructions .ROUTE .COMPLEX Qty: 120 3RF Dose Instruction: TAKE 1 TABLET DAILY Rx Instructions: TAKE 1 TABLET DAILY glipizide 2.5 mg tablet 2.5 mg PO DAILY Qty: 90 0RF glipizide 5 mg tablet 5 mg PO DAILY warfarin 1 mg tablet See Rx Instructions .ROUTE .COMPLEX Qty: 90 3RF Dose Instruction: TAKE 1 TABLET DAILY Rx Instructions: TAKE 1 TABLET DAILY Referrals Follow up/Referrals: Tristan Billings DO [Primary Care Provider] - See instructions Activity Restrictions/Add. Instructions Additional Instructions/Restrictions: Please return to the ER if your catheter becomes clogged again. Clinical Impressions Clinical Impression: Hematuria Qualifiers: Hematuria type: gross Qualified Code(s): R31.0 - Gross hematuria Constipation Qualifiers: Constipation type: other constipation type Qualified Code(s): K59.09 - Other constipation Instructions Patient Instructions: DI for Urinary Tract Infection (UTI), DI for Urinary Tract Infection in Children Print Language Print Language: [place] Discharge ED Provider: Ronny Collins Adult [facility] General Chief complaint: Urogenital-Male Stated complaint: catheter blocked Time Seen by Provider: 08/09/24 01:02 Mode of Arrival: Ambulatory Source of Information: Patient Limitations: No Limitations Description of Symptoms (Recalled from ER Triage Doc. by RN): Pt presents to ED because he thinks his catheter is blocked. Pt has been here 4 times in the last week for the same problem. Pt states he's not had urine output since approx 9 pm and is rating his pain 10/10. Pt is A&O*4 and is bedside. History of Present Illness HPI narrative: 78-year-old male with history of mechanical aortic valve on warfarin therapy, history of of prostate biopsy on August 05, 4 days ago, presents with concern for urinary obstruction and constipation. He has been seen multiple times for the same issue. He reports has not had any urine output for the last 4 hours and has worsening pelvic pain. He reports that he has not had a bowel movement since yesterday and feels like he needs to poop but cannot. Related Data Home Medications ?Medication ?Instructions ?Recorded ?Confirmed tamsulosin 0.4 mg capsule 0.8 mg PO DAILY 09/10/23 07/28/24 glipizide 5 mg tablet 5 mg PO DAILY 05/03/24 07/28/24 folic acid 1 mg tablet 1 mg PO DAILY 06/21/24 07/28/24 methotrexate sodium 2.5 mg tablet 2.5 mg PO WEEKLY 06/21/24 07/28/24 omeprazole 20 mg capsule,delayed 20 mg PO DAILY 06/21/24 07/28/24 release prednisone 10 mg tablet 10 mg PO DAILY 06/21/24 07/28/24 simvastatin 20 mg tablet 20 mg PO DAILY 06/21/24 07/28/24 Previous Rx's ?Medication ?Instructions ?Recorded hydrochlorothiazide 25 mg tablet 25 mg PO DAILY #90 tabs 01/31/23 sildenafil 100 mg tablet 100 mg PO DAILY PRN sexual 01/31/23 activity #20 tabs atenolol 50 mg tablet 50 mg PO DAILY BLOOD PRESSURE #90 01/12/24 tabs dapagliflozin propanediol 10 mg See Rx Instructions .Route 03/29/24 tablet .COMPLEX #90 tabs warfarin 4 mg tablet See Rx Instructions .Route 03/29/24 .COMPLEX #120 tabs glipizide 2.5 mg tablet 2.5 mg PO DAILY #90 tabs 05/03/24 warfarin 1 mg tablet See Rx Instructions .Route 07/05/24 .COMPLEX #90 tabs enoxaparin 100 mg/mL subcutaneous 100 mg SQ Q12H 10 days #20 mL 07/28/24 syringe (Lovenox) Allergies Allergy/AdvReac Type Severity Reaction Status Date / Time No Known Allergies Allergy Verified 07/28/24 13:14 [facility] Disclaimer: The information contained in this section may have been updated after the patient was seen, as this information can be updated by other users. Medical History Latent tuberculosis Abnormal EKG Sinus bradycardia HLD (hyperlipidemia) HTN (hypertension) snf current use of anticoagulant Surgical History H/O mechanical aortic valve replacement Social History (Updated 08/07/24 @ 19:09 by Kathy Corona (ED), [employer]) Smoking Status: Unknown if ever smoked alcohol intake: never substance use type: denies use current occupational status: retired household members: spouse housing: house caffeine: Yes Other Medical History Have you received the Pneumonia Vaccine: Yes ROS Obtained: Yes All systems reviewed & no additional complaints except as documented Physical Exam General General appearance: alert and in no apparent distress Head Head exam: atraumatic and normocephalic Eye Eye exam: Present normal appearance, PERRL and EOMI ENT ENT exam: Present normal oropharynx and normal external ear exam Neck Neck exam: Present normal inspection and full ROM Chest Chest inspection: Present normal inspection and symmetric chest wall rise; Absent tenderness Respiratory Respiratory exam: Present normal lung sounds bilaterally; Absent respiratory distress Cardiovascular Cardiovascular exam: Present regular rate and normal rhythm Abdominal Exam Abdominal exam: Present soft and tenderness (Suprapubic); Absent distention or guarding Extremities Exam Extremities exam: Present normal inspection; Absent edema or joint swelling Back Exam Back exam: Present normal inspection; Absent tenderness Neurological Exam Neurological exam: Present alert and oriented X3; Absent motor sensory deficit Psychiatric Psychiatric exam: Present normal affect and normal mood Skin Skin exam: Present warm, dry and normal color Lymphatic Lymphatic Findings: no adenopathy Medical Decision Making Medical Records Medical records reviewed: Yes I reviewed the patient's medical records. Screening: Per USPSTF and CDC recommendations, given the prevalence of disease in our region, it is our hospital?s policy to screen for HIV and viral Hepatitis for all patients aged 18 and over and those with ongoing risk factors. Hugo Inquiry Pt receiving controlled substance: No Hugo was queried for this patient: No Vital Signs: 08/09/24 00:56 08/09/24 01:30 08/09/24 02:26 Temperature 98.4 F Temperature Source Oral Pulse Rate 58 L Pulse Rate [Left] 59 L Respiratory Rate 20 Blood Pressure 126/70 127/58 L Blood Pressure [Right Arm] 122/71 Blood Pressure Mean 96 Blood Pressure Mean [Right Arm] 88 Blood Pressure Source Blood Pressure Position 02 Sat by Pulse Oximetry 95 96 Oxygen Delivery Method Room Air 08/09/24 02:31 08/09/24 03:00 08/09/24 04:19 Temperature 97.9 F Temperature Source Oral Pulse Rate 56 L 53 L 68 Pulse Rate [Left] Respiratory Rate 18 Blood Pressure 123/69 131/64 128/72 Blood Pressure [Right Arm] Blood Pressure Mean Blood Pressure Mean [Right Arm] Blood Pressure Source Automatic Cuff Blood Pressure Position Supine 02 Sat by Pulse Oximetry 91 L 95 Oxygen Delivery Method Room Air Lab Data Lab results reviewed: Yes I reviewed the patient's lab results. Lab Results 08/09/24 01:43: WBC 8.7, RBC 3.22 L, Hgb 10.3 L, Hct 31.9 L, MCV 99.2 H, MCH 32.1 H, MCHC 32.3, RDW 18.9 H, Plt Count 332, MPV 8.3, Neut % (Auto) 75.3, Lymph % (Auto) 15.4, [place] % (Auto) 7.5, Eos % (Auto) 1.4, Baso % (Auto) 0.4, Neut # (Auto) 6.5, Lymph # (Auto) 1.4, [place] # (Auto) 0.7, Eos # (Auto) 0.1, Baso # (Auto) 0.0, PT 11.8, INR 1.06, Sodium 139, Potassium 3.9, Chloride 106, Carbon Dioxide 28, Anion Gap 8.9, BUN 26 H, Creatinine 1.20, Estimated Creat Clear 64, Estimated GFR 59, Est GFR ( Amer) 71, Glucose 150 H, Calcium 9.5, Total Bilirubin 0.6, AST 29, ALT 66 D, Alkaline Phosphatase 41, Total Protein 6.7, Albumin 4.1, Globulin 2.6, Albumin/Globulin Ratio 1.6 08/09/24 01:43 08/09/24 01:43 Orders (Tests/Meds): ED MEDICATIONS Discontinued Medications Generic Name Dose Route Start Last Admin Trade Name Yeimy PRN Reason Stop Dose Admin Acetaminophen 1,000 mg 08/09/24 02:26 08/09/24 02:32 Acetaminophen 500mg Tab PO 08/09/24 02:27 1,000 mg ONCE ONE Administration Oxycodone HCl 5 mg 08/09/24 03:15 08/09/24 03:23 Oxycodone 5mg Immediate Release Tablet PO 08/09/24 03:16 5 mg ONCE ONE Administration Sodium Phosphate 133 ml 08/09/24 03:14 Sodium Phos/Biphosphate Fleet 133ml Enema RC 08/09/24 03:15 ONCE ONE ORDERS Category Date Time Status CBC w/Auto Diff [Complete Blood Count Auto Diff] Stat Lab 08/09/24 01:43 Completed CMP [Comprehensive Metabolic Panel] Stat Lab 08/09/24 01:43 Completed INR [Prothrombin Time INR] Stat Lab 08/09/24 01:43 Completed Medical Decision Narrative: 78-year-old male with history of mechanical aortic valve on warfarin, recent prostate biopsy with Beltre catheter placement and persistent hematuria presents with concern for catheter obstruction and worsening lower abdominal/pelvic pain. History was obtained via interactive discussion with patient, family, chart review. On arrival, patient is [afebrile, hemodynamically stable, satting appropriately, alert, oriented x4, GCS 15], moving all extremities spontaneously. Full physical exam performed and significant for suprapubic tenderness Differential includes but is not limited to catheter obstruction, hematuria, constipation, anemia, coagulopathy Patient was given Tylenol, oxycodone, soapsuds enema for symptomatic management and correction of underlying abnormalities. Workup initiated including CBC CMP INR. Initial bladder scan showed 120. Bladder irrigation was performed with resumption of urine flow through the catheter. On re-evaluation, patient [remains afebrile, HD stable.] Patient had extremely large bowel movement and feels a lot better. Laboratory workup independently interpreted by me and significant for INR low for patient, hemoglobin stable from prior Repeat bladder scan shows no urine in the bladder., Patient has grossly bloody urine in the Beltre bag. Transfer for urgent urologic evaluation was considered, but deemed unnecessary due to history and exam.. Given patient history, exam and workup, patient's presentation most likely represents persistent gross hematuria secondary to recent prostate biopsy and anticoagulation status. Patient was also constipated likely from local irritation. Patient has to follow-up with his urologist in the next 12 hours at clinic. Given he is no longer obstructed and is feeling better, patient was deemed appropriate for discharge. Return precautions given.. Procedures Risk/Benefits of Procedure(s) Were Explained: Yes Critical Care Critical Care Time Critical Care Time: No
--- NOTE | 2024-08-09 01:11 | PC.NURSE ---
122 mL in bladder
[2024-08-09 01:30] VITALS: BP 126/70
[2024-08-09 01:50] LABS: Basophils % 0.4 % (0.1-2.0); Eosinophils # 0.1 K/mm3 (0.0-0.4); Eosinophils % 1.4 % (0.1-12.0); Hematocrit 31.9 % (42.0-52.0); Hemoglobin 10.3 g/dL (14.1-18.0); Lymphocytes # 1.4 K/mm3 (0.7-4.5); Lymphocytes % 15.4 % (10-50); Mean Corpuscular HGB Conc 32.3 g/dL (31.8-35.4); Mean Corpuscular Hemoglobin 32.1 pg (27.0-31.2); Mean Corpuscular Volume 99.2 fl (80-94); Mean Platelet Volume 8.3 fl (7.4-10.4); Monocytes # 0.7 K/mm3 (0.1-1.0); Monocytes % 7.5 % (1.7-9.3); Neutrophils # 6.5 K/mm3 (1.8-7.8); Neutrophils % 75.3 % (37.0-80.0); Platelet Count 332 K/mm3 (142-424); Red Blood Count 3.22 M/mm3 (4.60-6.20); Red Cell Distribution Width 18.9 % (11.5-17.5); White Blood Count 8.7 K/mm3 (4.8-10.8)
[2024-08-09 01:56] LABS: Albumin Level 4.1 g/dl (3.5-5.0); Chloride 106 mmol/L (98-107); Potassium 3.9 mmoL/L (3.5-5.1); Sodium 139 mmol/L (136-145)
[2024-08-09 01:58] LABS: Blood Urea Nitrogen 26 mg/dl (9-20); Creatinine Clearance Estimated 64 mL/min (50-200); Estimated Glomerular Filt Rate 59 ml/min (>60); GFR (African American) 71 ML/MIN (>60)
[2024-08-09 01:59] LABS: Alanine Aminotransferase 66 U/L (12-78); Albumin/Globulin Ratio 1.6 (1.1-1.8); Alkaline Phosphatase 41 U/L (38-126); Anion Gap 8.9 mEq/L (5-15); Aspartate Amino Transferase 29 U/L (17-59); Bilirubin,Total 0.6 mg/dl (0.2-1.3); Calcium 9.5 mg/dl (8.4-10.2); Carbon Dioxide 28 mmol/L (22.0-30.0); Globulin 2.6 g/dL (1.3-3.2); Glucose 150 mg/dl (74-100); Total Protein,Serum 6.7 g/dl (6.3-8.2)
[2024-08-09 02:00] LABS: INR 1.06 (0.9-1.1); Prothrombin Time 11.8 seconds (10.1-12.5)
[2024-08-09 02:26] VITALS: BP 127/58; PULSE 58; O2SAT 96
[2024-08-09 02:31] VITALS: BP 123/69; PULSE 56; O2SAT 91
[2024-08-09] MEDS: ACETAMINOPHEN 500MG TAB 1000 MG PO (02:32)
[2024-08-09 03:00] VITALS: BP 131/64; PULSE 53; O2SAT 95
[2024-08-09] MEDS: OXYCODONE 5MG IMMEDIATE RELEASE TABLET 5 MG PO (03:23)
[2024-08-09 04:19] VITALS: BP 128/72; PULSE 68; RESP 18; TEMP 36.6; O2SAT 98
== END 2024-08-09 04:35 | disposition home or self-care (01) ==
PROVIDERS: Emergency Provider Emergency Medicine; PCP Internal Medicine
DX: R31.0 Gross hematuria (principal)
CPT/HCPCS: 80053; 85025; 85610

== ENCOUNTER 2024-08-09 22:35 | Emergency (ER) | payer MEDICARE, OTHER, SELFPAY ==
[2024-08-09 22:36] VITALS: BP 124/54; PULSE 56; RESP 20; TEMP 36.9; O2SAT 99; BMI 24.3
--- NOTE | 2024-08-09 22:48 | PC.NURSE ---
bladder scan 251 @[id number]
--- NOTE | 2024-08-09 22:51 | HMH.EDGENADL ---
Discharge Plan Disposition Chief Complaint: Urogenital-Male Prescriptions Prescriptions: New polyethylene glycol 3350 [Miralax] 17 gram/dose powder 17 g PO DAILY Qty: 510 0RF sennosides [senna] 8.6 mg tablet 8.6 mg PO HS PRN (Reason: constipation) Qty: 30 0RF No Action methotrexate sodium 2.5 mg tablet 2.5 mg PO WEEKLY Rx Instructions: Pt is taking 5 2.5 mg tablets once a week for a total of 12.5 mg. tamsulosin 0.4 mg capsule 0.8 mg PO DAILY prednisone 10 mg tablet 10 mg PO DAILY Rx Instructions: Pt is now taking 12.5 mg daily simvastatin 20 mg tablet 20 mg PO DAILY folic acid 1 mg tablet 1 mg PO DAILY omeprazole 20 mg capsule,delayed release(DR/EC) 20 mg PO DAILY enoxaparin [Lovenox] 100 mg/mL syringe 100 mg SQ Q12H 10 Days Qty: 20 0RF hydrochlorothiazide 25 mg tablet 25 mg PO DAILY Qty: 90 3RF sildenafil 100 mg tablet 100 mg PO DAILY PRN (Reason: sexual activity) Qty: 20 10RF atenolol 50 mg tablet 50 mg PO DAILY Qty: 90 3RF dapagliflozin propanediol 10 mg tablet See Rx Instructions .ROUTE .COMPLEX Qty: 90 3RF Dose Instruction: TAKE 1 TABLET DAILY Rx Instructions: TAKE 1 TABLET DAILY warfarin 4 mg tablet See Rx Instructions .ROUTE .COMPLEX Qty: 120 3RF Dose Instruction: TAKE 1 TABLET DAILY Rx Instructions: TAKE 1 TABLET DAILY glipizide 2.5 mg tablet 2.5 mg PO DAILY Qty: 90 0RF glipizide 5 mg tablet 5 mg PO DAILY warfarin 1 mg tablet See Rx Instructions .ROUTE .COMPLEX Qty: 90 3RF Dose Instruction: TAKE 1 TABLET DAILY Rx Instructions: TAKE 1 TABLET DAILY Referrals Follow up/Referrals: Tristan Billings DO [Primary Care Provider] - See instructions Activity Restrictions/Add. Instructions Additional Instructions/Restrictions: You were evaluated in the emergency department today. Please follow-up closely with your primary care provider as well as with your urologist. 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 Return to the emergency department right away for new or worsening symptoms. Clinical Impressions Clinical Impression: Acute on chronic urinary retention Instructions Patient Instructions: How to Care for Your Deleon Catheter -- Male Print Language Print Language: Citizen Of [place] Discharge ED Provider: Frances Lara General Adult HPI General Chief complaint: Urogenital-Male Stated complaint: unable to urinate aft cath removal Time Seen by Provider: 08/09/24 22:43 Mode of Arrival: Ambulatory Source of Information: Patient Limitations: No Limitations Description of Symptoms (Recalled from ER Triage Doc. by RN): pt reports with urinary discomfort, pt was seen in the ER last night with difficulty in his deleon emptying. pt seen his urologist today and had the catheter removed. pt is now reporting urinary discomfort and the inability to urinate once again. History of Present Illness HPI narrative: This patient is a 78-year-old male with a history of newly diagnosed prostate cancer, history of urinary retention requiring Deleon catheter presenting to the emergency department for evaluation with concern for inability to urinate. Patient states that he followed up with urology today and demanded that they remove his Deleon catheter. He notes that he was told that he has prostate cancer based on a prostate biopsy that they had done. He states that they remove the catheter, and he has not been able to pee since going home. He is having some lower pelvic pressure and pain like he needs to urinate but no other concerns or complaints at this time. He also notes that he feels like he is getting constipated again. He was seen here last night for issues with the Deleon catheter and he also was diagnosed with constipation. He had an enema last night and had significant bowel movement afterward, but he states he has not had 1 since going home. He did not take any oral medications at home after being discharged. Related Data Home Medications ?Medication ?Instructions ?Recorded ?Confirmed tamsulosin 0.4 mg capsule 0.8 mg PO DAILY 09/10/23 07/28/24 glipizide 5 mg tablet 5 mg PO DAILY 05/03/24 07/28/24 folic acid 1 mg tablet 1 mg PO DAILY 06/21/24 07/28/24 methotrexate sodium 2.5 mg tablet 2.5 mg PO WEEKLY 06/21/24 07/28/24 omeprazole 20 mg capsule,delayed 20 mg PO DAILY 06/21/24 07/28/24 release prednisone 10 mg tablet 10 mg PO DAILY 06/21/24 07/28/24 simvastatin 20 mg tablet 20 mg PO DAILY 06/21/24 07/28/24 Previous Rx's ?Medication ?Instructions ?Recorded hydrochlorothiazide 25 mg tablet 25 mg PO DAILY #90 tabs 01/31/23 sildenafil 100 mg tablet 100 mg PO DAILY PRN sexual 01/31/23 activity #20 tabs atenolol 50 mg tablet 50 mg PO DAILY BLOOD PRESSURE #90 01/12/24 tabs dapagliflozin propanediol 10 mg See Rx Instructions .Route 03/29/24 tablet .COMPLEX #90 tabs warfarin 4 mg tablet See Rx Instructions .Route 03/29/24 .COMPLEX #120 tabs glipizide 2.5 mg tablet 2.5 mg PO DAILY #90 tabs 05/03/24 warfarin 1 mg tablet See Rx Instructions .Route 07/05/24 .COMPLEX #90 tabs enoxaparin 100 mg/mL subcutaneous 100 mg SQ Q12H 10 days #20 mL 07/28/24 syringe (Lovenox) polyethylene glycol 3350 17 17 g PO DAILY #510 grams 08/09/24 gram/dose oral powder (Miralax) sennosides 8.6 mg tablet (senna) 8.6 mg PO HS PRN constipation #30 08/09/24 tabs Allergies Allergy/AdvReac Type Severity Reaction Status Date / Time No Known Allergies Allergy Verified 07/28/24 13:14 [facility] Disclaimer: The information contained in this section may have been updated after the patient was seen, as this information can be updated by other users. 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 Surgical History H/O mechanical aortic valve replacement Social History Smoking Status: Never smoker alcohol intake: never substance use type: denies use current occupational status: retired household members: spouse housing: house caffeine: Yes Other Medical History Have you received the Pneumonia Vaccine: Yes ROS Obtained: Yes All systems reviewed & no additional complaints except as documented Physical Exam General General appearance: alert and in no apparent distress Head Head exam: atraumatic and normocephalic Eye Eye exam: Present normal appearance, PERRL and EOMI ENT ENT exam: Present normal exam, normal oropharynx, mucous membranes moist and normal external ear exam Neck Neck exam: Present normal inspection, full ROM and trachea midline; Absent tenderness Chest Chest inspection: Present normal inspection and symmetric chest wall rise; Absent tenderness Respiratory Respiratory exam: Present normal lung sounds bilaterally; Absent respiratory distress, wheezes, stridor or accessory muscle use Cardiovascular Cardiovascular exam: Present regular rate and normal rhythm Abdominal Exam Abdominal exam: Present soft; Absent distention, tenderness or guarding Extremities Exam Extremities exam: Present normal inspection, full ROM and normal capillary refill; Absent tenderness or edema Back Exam Back exam: Present normal inspection and full ROM; Absent tenderness Neurological Exam Neurological exam: Present alert, oriented X3, CN II-XII intact and normal gait; Absent motor sensory deficit Psychiatric Psychiatric exam: Present normal affect and normal mood Skin Skin exam: Present warm and dry Medical Decision Making Medical Records Medical records reviewed: Yes I reviewed the patient's medical records. Screening: Per USPSTF and CDC recommendations, given the prevalence of disease in our region, it is our hospital?s policy to screen for HIV and viral Hepatitis for all patients aged 18 and over and those with ongoing risk factors. Hugo Inquiry Pt receiving controlled substance: No Vital Signs: 08/09/24 22:36 Temperature 98.4 F Temperature Source Oral Pulse Rate [Right] 56 L Respiratory Rate 20 Blood Pressure [Right Arm] 124/54 L Blood Pressure Mean [Right Arm] 77 02 Sat by Pulse Oximetry 99 Oxygen Delivery Method Room Air Lab Data Lab results reviewed: Yes I reviewed the patient's lab results. Orders (Tests/Meds): ED MEDICATIONS Generic Name Dose Route Start Last Admin Trade Name Freq PRN Reason Stop Dose Admin Acetaminophen 1,000 mg 08/09/24 22:56 Acetaminophen 500mg Tab PO 08/09/24 22:57 ONCE ONE Ketorolac Tromethamine 30 mg 08/09/24 22:56 Ketorolac 30mg/Ml Vial IM 08/09/24 22:57 ONCE ONE Discontinued Medications Generic Name Dose Route Start Last Admin Trade Name Freq PRN Reason Stop Dose Admin Polyethylene Glycol 17 gm 08/09/24 22:50 Polyethylene Glycol 3350 17 Gm Packet PO 08/09/24 22:51 ONCE ONE Senna/Docusate Sodium 2 tab 08/09/24 22:50 Sennosides 8.6mg/Docusate 50mg Tablet PO 08/09/24 22:51 ONCE ONE ORDERS Category Date Time Status Urine Culture(cathed specimen) Stat Micro 08/09/24 22:50 Ordered Medical Decision Narrative: In summary, this patient is a 78-year-old male presenting to the Emergency Department for evaluation of lower abdominal pain/pressure and inability to urinate. Differential diagnoses considered include but are not limited to urinary retention, cystitis, constipation. Ruling out the most morbid conditions drove assessment. It should be noted patient's history includes prostate cancer which is not at goal therapy. This complicates all aspects of care by increasing patient's risk for morbidity. I reviewed patient's past medical records and noted multiple ED evaluations over the last several days with concern for Deleon catheter related issues send urinary retention. Also noted to CT scan 08/07/2024. On exam, the patient is lying in bed in no acute distress. Abdominal exam is benign. He has urinary pressure but no other concerns or complaints. Bladder scan was performed that demonstrated 430 mL in the bladder and inability to urinate here. Given this, patient consents to have Deleon catheter placed again. Risk versus benefit explained. Urine culture was ordered. He also states that he feels like is getting constipated again and did not take anything orally, so I did order him senna and MiraLAX. Deleon catheter placed without significant difficulty with some blood-tinged urine return. Patient did have some bladder spasms, for which she was given IM Toradol and oral Tylenol. 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 Ultimately at this time, I feel it is appropriate for discharge home with continued plan for close outpatient follow-up with his urologist and primary care provider. I gave him Deleon catheter care instructions and provided him with prescriptions for MiraLAX and senna to treat his constipation. Strict return precautions were given. Critical Care Critical Care Time Critical Care Time: No
[2024-08-09] MEDS: ACETAMINOPHEN 500MG TAB 1000 MG PO (22:59)
[2024-08-09] MEDS: KETOROLAC 30MG/ML VIAL 30 MG IM (22:59)
[2024-08-09] MEDS: POLYETHYLENE GLYCOL 3350 17 GM PACKET PO (23:23)
[2024-08-09] MEDS: SENNOSIDES 8.6MG/DOCUSATE 50MG TABLET 2 TAB PO (23:23)
[2024-08-09 23:38] VITALS: BP 121/74; PULSE 74; RESP 16; TEMP 36.7; O2SAT 98
== END 2024-08-09 23:39 | disposition home or self-care (01) ==
PROVIDERS: Emergency Provider Emergency Medicine; PCP Internal Medicine
DX: R31.0 Gross hematuria (principal); R33.9 Retention of urine, unspecified; C61 Malignant neoplasm of prostate; Z22.7 Latent tuberculosis; Z95.2 Presence of prosthetic heart valve; Z79.01 Long term (current) use of anticoagulants; E11.9 Type 2 diabetes mellitus without complications; Z79.52 Long term (current) use of systemic steroids; Z79.899 Other long term (current) drug therapy; Z79.84 Long term (current) use of oral hypoglycemic drugs; K59.00 Constipation, unspecified
CPT/HCPCS: 51702; 80053; 85025; 85610; 87086; 99283; J1885

== ENCOUNTER 2024-11-02 12:20 | Outpatient (CLI) | payer MEDICARE, OTHER, SELFPAY ==
[2024-11-01 18:12] LABS: Coronavirus 19, PCR Not Detected (NotDetected)
[2024-11-01 21:01] LABS: Influenza A, PCR Not Detected (NotDetected); Influenza B, PCR Not Detected (NotDetected)
--- NOTE | 2024-11-02 12:23 | XR_ITS ---
FINAL REPORT CLINICAL HISTORY: Nonspecific cough COMPARISON: 05/03/2024 FINDINGS: PA and lateral views of the chest were obtained. Prior sternotomy. The heart is normal in size.. Underlying emphysema is noted. The lungs are clear. There is no pleural effusion or pneumothorax. No acute osseous abnormality is identified. IMPRESSION: No radiographic evidence of acute cardiac or pulmonary disease. Reviewed, Interpreted and Dictated by Jessica Whitfield MD Transcribed by Lizzie Islas Authenticated and [facility]
== END 2024-11-02 23:59 | disposition home or self-care (01) ==
LOC: RAD 12:22
PROVIDERS: PCP Internal Medicine; Visit Provider Family Medicine
DX: R50.9 Fever, unspecified (principal); R05.9 Cough, unspecified
CPT/HCPCS: 71046; 87636

== ENCOUNTER 2024-12-14 14:03 | Emergency (ER) | payer MEDICARE, OTHER, SELFPAY ==
--- NOTE | 2024-12-14 14:15 | CT_ITS ---
FINAL REPORT TECHNIQUE: IV contrast enhanced exam This study was performed with techniques to keep radiation doses as low as reasonably achievable, (ALARA). Individualized dose reduction techniques using automated exposure control or adjustment of mA and/or kV according to the patient's size were employed. CLINICAL HISTORY: constipation x 1 week / abd pain / distention COMPARISON: 08/07/2024 FINDINGS: CT ABDOMEN PELVIS WITH CONTRAST: Abdomen: Left lower lobe scarring is present. The gallbladder is unremarkable. Liver demonstrates fatty infiltration of the liver. The spleen and pancreas are unremarkable. A left adrenal nodule is noted, measuring up to 20 mm in size. This is unchanged from the prior CT of July 2024. Kidneys show no mass or obstruction. There is moderate fecal impaction present in the colon, without evidence of small bowel dilatation. Pelvis: There is fecal impaction extending to the sigmoid colon. Radiation markers are present in a normal-sized prostate. No fluid collection or adenopathy is seen. The bladder is unremarkable. There are small bilateral inguinal hernias containing fat. IMPRESSION: Moderate fecal impaction. No bowel obstruction or acute inflammatory change is present. Reviewed, Interpreted and Dictated by Sammy Ji MD Transcribed by Leia Rosales Authenticated and [facility]
[2024-12-14 14:18] LABS: Microscopic, Urine URINE MICROSCOPIC (MICROSCOPIC)
[2024-12-14 14:22] VITALS: BP 167/75; PULSE 55; O2SAT 96
[2024-12-14 14:24] VITALS: BP 167/75; PULSE 52; RESP 19; TEMP 36.9; O2SAT 93; BMI 25.0
[2024-12-14 14:29] LABS: Appearance,Urine CLEAR (Clear); Bilirubin,Urine Negative (Negative); Blood, Urine 1+ (Negative); Color,Urine YELLOW (Yellow); Glucose,Urine (UA) 3+ (Negative); Ketones,Urine Negative (Negative); Leukocyte Esterase,Urine Negative (Negative); Nitrate,Urine Negative (Negative); Protein,Urine TRACE (Negative); Urobilinogen,Urine 0.2 EU/dl (0.2)
--- NOTE | 2024-12-14 14:34 | [facility].EDGENADL ---
Discharge Plan Disposition Patient Disposition: Home, Self-Care Prescriptions Prescriptions: New polyethylene glycol 3350 [Miralax] 17 gram/dose powder 17 g PO DAILY 4 Days Qty: 68 0RF methocarbamol 500 mg tablet 500 mg PO TID Qty: 90 0RF No Action oxybutynin chloride 10 mg tablet extended release 24hr 10 mg PO DAILY Patient Comments: TAKE ONE TABLET BY MOUTH EVERY DAY FOR urine urgency prednisone 5 mg tablet 10 mg PO DAILY Patient Comments: TAKE 1 TO 2 TABLET(S) BY MOUTH EVERY DAY --TAKE WITH FOOD-- isoniazid 300 mg tablet 300 mg PO DAILY pyridoxine (vitamin B6) 100 mg tablet 100 mg PO DAILY tamsulosin 0.4 mg capsule 0.8 mg PO DAILY simvastatin 20 mg tablet 20 mg PO DAILY omeprazole 20 mg capsule,delayed release(DR/EC) 20 mg PO DAILY lisinopril 2.5 mg tablet 2.5 mg PO DAILY Qty: 30 2RF glipizide 10 mg tablet 10 mg PO DAILY hydrochlorothiazide 25 mg tablet 25 mg PO DAILY Qty: 90 3RF sildenafil 100 mg tablet 100 mg PO DAILY PRN (Reason: sexual activity) Qty: 20 10RF atenolol 50 mg tablet 50 mg PO DAILY Qty: 90 3RF dapagliflozin propanediol 10 mg tablet See Rx Instructions .ROUTE .COMPLEX Qty: 90 3RF Dose Instruction: TAKE 1 TABLET DAILY Rx Instructions: TAKE 1 TABLET DAILY warfarin 4 mg tablet See Rx Instructions .ROUTE .COMPLEX Qty: 120 3RF Dose Instruction: TAKE 1 TABLET DAILY Rx Instructions: TAKE 1 TABLET DAILY vitamin B6-vitamin E-magnesium Tablet 1 tab PO DAILY Lupron Depot (6 Month) 45 mg Syringe Kit 45 mg IM Q6 Rx Instructions: EVERY 6 MONTHS Orencia ClickJect 125 mg/mL Auto-Injector 125 mg SQ WEEKLY Referrals Follow up/Referrals: Abelardo Pappas MD [Primary Care Provider] - See instructions Activity Restrictions/Add. Instructions Additional Instructions/Restrictions: Today you were evaluated in the emergency department for abdominal pain. You have constipation, fatty liver, left adrenal nodule, small bilateral inguinal hernias. You were given lactulose and an enema in the emergency department. I have sent a prescription for MiraLAX to the pharmacy, please take this as directed. Increase your fluid intake. Please follow-up with your PCP within 3 to 5 days. If your condition worsens you will need to return to the ED immediately. Clinical Impressions Clinical Impression: Back muscle spasm Constipation Qualifiers: Constipation type: unspecified constipation type Qualified Code(s): K59.00 - Constipation, unspecified Abdominal pain Qualifiers: Abdominal location: generalized Qualified Code(s): R10.84 - Generalized abdominal pain Instructions Patient Instructions: Constipation, DI for Constipation, DI for Acute Abdominal Pain Print Language Print Language: Eritrean Discharge ED Provider: Elio Thrasher General Adult HPI <Rosa Salter APRN - Last Filed: 12/14/24 18:09> General Chief complaint: Abdominal Pain Stated complaint: abd pain, no bowel movement for week Time Seen by Provider: 12/14/24 14:08 Mode of Arrival: Ambulatory Description of Symptoms (Recalled from ER Triage Doc. by RN): PT PRESENTS TO THE ED WITH SEVERE CONSIPATION. PT STATES LAST FRIDAY HE FINISED RADIATION FOR PROSTATE CANCER AND HASN'T HAD A BOWEL MOVEMENT SINCE. PT STATES HE HAS LOWER ABDOMINAL PAIN AND PAIN IN HIS LOWER BACK. History of Present Illness HPI narrative: patient is a 79-year-old male PMHx prostate cancer (radiation), DMT2, RA, HLD, HTN, long-term use of anticoagulant who presents to the ED for 1 week of constipation, abdominal pain and bloating. Patient has had a bowel obstruction in the past and states this feels similar. Related Data Home Medications ?Medication ?Instructions ?Recorded ?Confirmed tamsulosin 0.4 mg capsule 0.8 mg PO DAILY 09/10/23 12/14/24 omeprazole 20 mg capsule,delayed 20 mg PO DAILY 06/21/24 12/14/24 release simvastatin 20 mg tablet 20 mg PO DAILY 06/21/24 12/14/24 oxybutynin chloride 10 mg 10 mg PO DAILY 09/23/24 12/14/24 tablet,extended release 24 hr prednisone 5 mg tablet 10 mg PO DAILY 09/23/24 12/14/24 isoniazid 300 mg tablet 300 mg PO DAILY 11/01/24 12/14/24 pyridoxine (vitamin B6) 100 mg 100 mg PO DAILY 11/01/24 12/14/24 tablet glipizide 10 mg tablet 10 mg PO DAILY 12/03/24 12/14/24 abatacept 125 mg/mL subcutaneous 125 mg SQ WEEKLY 12/14/24 12/14/24 auto-injector (Orencia ClickJect) leuprolide acetate (6 month) 45 mg 45 mg IM Q6 12/14/24 12/14/24 intramuscular syringe kit (Lupron Depot) vitamin B6-vitamin E-magnesium 1 tab PO DAILY 12/14/24 12/14/24 tablet Previous Rx's ?Medication ?Instructions ?Recorded hydrochlorothiazide 25 mg tablet 25 mg PO DAILY #90 tabs 01/31/23 sildenafil 100 mg tablet 100 mg PO DAILY PRN sexual 01/31/23 activity #20 tabs atenolol 50 mg tablet 50 mg PO DAILY BLOOD PRESSURE #90 01/12/24 tabs dapagliflozin propanediol 10 mg See Rx Instructions .Route 03/29/24 tablet .COMPLEX #90 tabs warfarin 4 mg tablet See Rx Instructions .Route 03/29/24 .COMPLEX #120 tabs lisinopril 2.5 mg tablet 2.5 mg PO DAILY #30 tabs 09/22/24 methocarbamol 500 mg tablet 500 mg PO TID #90 tabs 12/14/24 polyethylene glycol 3350 17 17 g PO DAILY 4 days #68 grams 12/14/24 gram/dose oral powder (Miralax) Allergies Allergy/AdvReac Type Severity Reaction Status Date / Time No Known Allergies Allergy Verified 12/14/24 14:42 [facility] <Rosa Salter APRN - Last Filed: 12/14/24 18:09> [facility] Disclaimer: The information contained in this section may have been updated after the patient was seen, as this information can be updated by other users. Medical History (Updated 12/14/24 @ 17:51 by Rosa Salter APRN) Prostate CA Strain of lumbar paraspinal muscle Latent tuberculosis Abnormal EKG Sinus bradycardia HLD (hyperlipidemia) HTN (hypertension) jail current use of anticoagulant Surgical History H/O mechanical aortic valve replacement Family History (Updated 12/14/24 @ 14:44 by Shilpi Olmos RN) Other No significant family history Social History Smoking Status: Never smoker alcohol intake: never substance use type: denies use current occupational status: retired Travel in the last 8 weeks: None household members: spouse housing: house caffeine: Yes Have you lived/traveled outside [place] in past 30 days?: No Contact w/someone who lives/traveled outside [place] past 30 days?: No Exposure to someone with infectious disease in past 14 days?: No Do you have a fever (greater than 100.4 F or 38 C)?: No Have you tested positive for COVID-19: No Exposed to someone with COVID-19 in past 14 days?: No Do you have a sore throat?: No Do you have a cough?: No Do you have any weakness?: No Do you have any diarrhea?: No Are you experiencing any unusual bleeding?: No Do you have any muscle aches/pain?: No Do you have any abdominal pain?: Yes Are you experiencing loss of taste or smell?: No Other Medical History Have you received the Pneumonia Vaccine: No <Rosa Salter APRN - Last Filed: 12/14/24 18:09> ROS Obtained: Yes Systems reviewed as appropriate & no additional complaints except as documented Physical Exam <Rosa Salter APRN - Last Filed: 12/14/24 18:09> General General appearance: alert and in no apparent distress Head Head exam: atraumatic and normocephalic Eye Eye exam: Present normal appearance and PERRL ENT ENT exam: Present normal exam Neck Neck exam: Present normal inspection Chest Chest inspection: Present normal inspection and symmetric chest wall rise; Absent tenderness Respiratory Respiratory exam: Present normal lung sounds bilaterally Cardiovascular Cardiovascular exam: Present regular rate Abdominal Exam Abdominal exam: Present soft, distention, tenderness (generalized ) and normal bowel sounds Extremities Exam Extremities exam: Present normal inspection and full ROM Back Exam Back exam: Present normal inspection and full ROM Neurological Exam Neurological exam: Present alert and oriented X3 Psychiatric Psychiatric exam: Present normal affect and normal mood Skin Skin exam: Present warm and dry Medical Decision Making <Rosa Salter APRN - Last Filed: 12/14/24 18:09> Medical Records Screening: Per USPSTF and CDC recommendations, given the prevalence of disease in our region, it is our hospital?s policy to screen for HIV and viral Hepatitis for all patients aged 18 and over and those with ongoing risk factors. Hugo Inquiry Pt receiving controlled substance: No Hugo was queried for this patient: No Vital Signs: 12/14/24 14:22 12/14/24 14:24 12/14/24 15:00 Temperature 98.5 F Temperature Source Oral Pulse Rate 55 L 58 L Pulse Rate [Right] 52 L Respiratory Rate 19 Blood Pressure 167/75 H 159/81 H Blood Pressure [Right Arm] 167/75 H Blood Pressure Mean [Right Arm] 105 Blood Pressure Source Blood Pressure Source [Right Arm] Automatic Cuff Blood Pressure Position Blood Pressure Position [Right Arm] Supine 02 Sat by Pulse Oximetry 96 93 L 95 Oxygen Delivery Method Room Air Room Air Room Air 12/14/24 15:30 12/14/24 16:00 12/14/24 18:10 Temperature 98.1 F Temperature Source Oral Pulse Rate 58 L 54 L 60 Pulse Rate [Right] Respiratory Rate 18 Blood Pressure 174/79 H 170/86 H 166/70 H Blood Pressure [Right Arm] Blood Pressure Mean [Right Arm] Blood Pressure Source Automatic Cuff Blood Pressure Source [Right Arm] Blood Pressure Position Sitting Blood Pressure Position [Right Arm] 02 Sat by Pulse Oximetry 95 95 Oxygen Delivery Method Room Air Room Air Room Air Lab Data Lab Results 12/14/24 14:10: Urine Color Yellow, Urine Appearance Clear, Urine pH 6.0, Ur Specific [place] 1.020, Urine Protein Trace, Urine Glucose (UA) 3+, Urine Ketones Negative, Urine Blood 1+ A, Urine Nitrate Negative, Urine Bilirubin Negative, Urine Urobilinogen 0.2, Ur Leukocyte Esterase Negative, Urine RBC 5-10, Urine WBC None, Ur Squamous Epith Cells Occasional, Urine Bacteria Trace 12/14/24 14:35: WBC 6.4, RBC 3.47 L, Hgb 9.6 L, Hct 30.7 L, MCV 88.5, MCH 27.7, MCHC 31.3 L, RDW 23.3 H, Plt Count 264, MPV 8.7, Neut % (Auto) 85.5 H, Lymph % (Auto) 5.2 L, Mcminn % (Auto) 8.0, Eos % (Auto) 0.5, Baso % (Auto) 0.5, Neut # (Auto) 5.4, Lymph # (Auto) 0.3 L, Mcminn # (Auto) 0.5, Eos # (Auto) 0.0, Baso # (Auto) 0.0, Sodium 139, Potassium 4.1, Chloride 101, Carbon Dioxide 30, Anion Gap 12.1, BUN 22 H, Creatinine 1.00, Estimated Creat Clear 77, Estimated GFR 72, Est GFR ( Amer) 88, Glucose 162 H, Lactate 1.3, Calcium 9.6, Total Bilirubin 0.5, AST 45, ALT 48, Alkaline Phosphatase 74, Troponin I < 0.01, Total Protein 6.9, Albumin 4.2, Globulin 2.7, Albumin/Globulin Ratio 1.6, Lipase 64 12/14/24 14:35 12/14/24 14:35 Orders (Tests/Meds): ED MEDICATIONS Discontinued Medications Generic Name Dose Route Start Last Admin Trade Name Freq PRN Reason Stop Dose Admin Iopamidol 75 ml 12/14/24 15:16 12/14/24 15:17 Iopamidol-370 (76%);100ml Bottle IV 12/14/24 15:17 75 ml ONCE ONE Administration Lactulose 20 gm 12/14/24 17:00 Lactulose 20gm/30ml Udc PO 12/14/24 17:01 ONCE ONE Methocarbamol 500 mg 12/14/24 15:31 12/14/24 15:35 Methocarbamol 500mg Tablet PO 12/14/24 15:32 500 mg ONCE ONE Administration Ondansetron HCl 4 mg 12/14/24 17:31 Ondansetron 4mg/2ml Vial IV 12/14/24 17:32 ONCE ONE Sodium Chloride 10 ml 12/14/24 15:16 12/14/24 15:17 Sodium Chloride 0.9% 10ml Syr (Rad Only) IV 01/13/25 15:15 10 ml NEEDED PRN Administration Maintain IV Site ORDERS Category Date Time Status CT abdomen pelvis w con Stat Cat Scan 12/14/24 14:15 Completed CBC w/Auto Diff [Complete Blood Count Auto Diff] Stat Lab 12/14/24 14:35 Completed CMP [Comprehensive Metabolic Panel] Stat Lab 12/14/24 14:35 Completed Lactic Acid Stat Lab 12/14/24 14:35 Completed Lipase Stat Lab 12/14/24 14:35 Completed Trop I [Troponin I] Stat Lab 12/14/24 14:35 Completed Urinalysis and Microscopic Stat Lab 12/14/24 14:10 Completed Medical Decision Narrative: In summary, patient is a 79-year-old male PMHx prostate cancer (radiation), DMT2, RA, HLD, HTN, long-term use of anticoagulant who presents to the ED for 1 week of constipation, abdominal pain and bloating. Patient has had a bowel obstruction in the past and states this feels similar. Patient states he has not had any type of bowel movement within 1 week, but is passing gas. Patient states he has been straining so hard to go to the restroom that he feels he is pulled his lower right back muscle. He has not had anything prior to arrival for pain for his back. Upon initial exam, patient is alert, oriented and cooperative. Patient is hemodynamically stable. Physical exam remarkable for distended abdomen, generalized tenderness. Bowel sounds normal. Right lumbar muscle spasm noted. Denies fever, chills, body aches, headache, visual disturbances, chest pain, shortness of breath. Differential diagnosis includes constipation, infectious process, mass, SBO, renal calculi, peritonitis, complicated UTI, among others. Initial workup will be conducted with hematologic labs & imaging. Initial inventions include lactulose. Initial workup reviewed by me. CBC unremarkable for any leukocytosis, stable H&H. CMP unremarkable for any actionable abnormalities. Total bilirubin 0.5. First troponin < 0.01. lipase 64. Urinalysis unremarkable for any infectious process, 1+ blood. Final read of the CT remarkable for constipation, fatty liver, left adrenal nodule, small bilateral inguinal hernias, no SBO. I discussed this with the patient and he is already aware of the other CT findings. Advised him that we will administer the enema now that we have confirmed constipation on the CT scan. Upon repeat evaluation, patient had an acceptable resolution of symptoms. They were ambulatory in the ED. Able to tolerate PO. He had a large BM in the ED. Given this, I feel that patient is appropriate to be discharged home at this time. Discussed with patient that I have sent a prescription of MiraLAX to the pharmacy. Advised him to increase his fluid intake. Discussed taking the Robaxin for muscle spasm as directed. He will need to follow-up with his PCP within 3 to 5 days. Discussed with patient and spouse return precautions to the ED. They both verbalized understanding. Patient was ambulatory from the ED without difficulty. <Elio Thrasher MD - Last Filed: 12/15/24 07:53> Vital Signs: 12/14/24 14:22 12/14/24 14:24 12/14/24 15:00 Temperature 98.5 F Temperature Source Oral Pulse Rate 55 L 58 L Pulse Rate [Right] 52 L Respiratory Rate 19 Blood Pressure 167/75 H 159/81 H Blood Pressure [Right Arm] 167/75 H Blood Pressure Mean [Right Arm] 105 Blood Pressure Source Blood Pressure Source [Right Arm] Automatic Cuff Blood Pressure Position Blood Pressure Position [Right Arm] Supine 02 Sat by Pulse Oximetry 96 93 L 95 Oxygen Delivery Method Room Air Room Air Room Air 12/14/24 15:30 12/14/24 16:00 12/14/24 18:10 Temperature 98.1 F Temperature Source Oral Pulse Rate 58 L 54 L 60 Pulse Rate [Right] Respiratory Rate 18 Blood Pressure 174/79 H 170/86 H 166/70 H Blood Pressure [Right Arm] Blood Pressure Mean [Right Arm] Blood Pressure Source Automatic Cuff Blood Pressure Source [Right Arm] Blood Pressure Position Sitting Blood Pressure Position [Right Arm] 02 Sat by Pulse Oximetry 95 95 Oxygen Delivery Method Room Air Room Air Room Air Lab Data Lab Results 12/14/24 14:10: Urine Color Yellow, Urine Appearance Clear, Urine pH 6.0, Ur Specific [place] 1.020, Urine Protein Trace, Urine Glucose (UA) 3+, Urine Ketones Negative, Urine Blood 1+ A, Urine Nitrate Negative, Urine Bilirubin Negative, Urine Urobilinogen 0.2, Ur Leukocyte Esterase Negative, Urine RBC 5-10, Urine WBC None, Ur Squamous Epith Cells Occasional, Urine Bacteria Trace 12/14/24 14:35: WBC 6.4, RBC 3.47 L, Hgb 9.6 L, Hct 30.7 L, MCV 88.5, MCH 27.7, MCHC 31.3 L, RDW 23.3 H, Plt Count 264, MPV 8.7, Neut % (Auto) 85.5 H, Lymph % (Auto) 5.2 L, Mcminn % (Auto) 8.0, Eos % (Auto) 0.5, Baso % (Auto) 0.5, Neut # (Auto) 5.4, Lymph # (Auto) 0.3 L, Mcminn # (Auto) 0.5, Eos # (Auto) 0.0, Baso # (Auto) 0.0, Sodium 139, Potassium 4.1, Chloride 101, Carbon Dioxide 30, Anion Gap 12.1, BUN 22 H, Creatinine 1.00, Estimated Creat Clear 77, Estimated GFR 72, Est GFR ( Amer) 88, Glucose 162 H, Lactate 1.3, Calcium 9.6, Total Bilirubin 0.5, AST 45, ALT 48, Alkaline Phosphatase 74, Troponin I < 0.01, Total Protein 6.9, Albumin 4.2, Globulin 2.7, Albumin/Globulin Ratio 1.6, Lipase 64 Orders (Tests/Meds): ED MEDICATIONS Discontinued Medications Generic Name Dose Route Start Last Admin Trade Name Freq PRN Reason Stop Dose Admin Iopamidol 75 ml 12/14/24 15:16 12/14/24 15:17 Iopamidol-370 (76%);100ml Bottle IV 12/14/24 15:17 75 ml ONCE ONE Administration Lactulose 20 gm 12/14/24 17:00 Lactulose 20gm/30ml Udc PO 12/14/24 17:01 ONCE ONE Methocarbamol 500 mg 12/14/24 15:31 12/14/24 15:35 Methocarbamol 500mg Tablet PO 12/14/24 15:32 500 mg ONCE ONE Administration Ondansetron HCl 4 mg 12/14/24 17:31 Ondansetron 4mg/2ml Vial IV 12/14/24 17:32 ONCE ONE Sodium Chloride 10 ml 12/14/24 15:16 12/14/24 15:17 Sodium Chloride 0.9% 10ml Syr (Rad Only) IV 01/13/25 15:15 10 ml NEEDED PRN Administration Maintain IV Site ORDERS Category Date Time Status CT abdomen pelvis w con Stat Cat Scan 12/14/24 14:15 Completed CBC w/Auto Diff [Complete Blood Count Auto Diff] Stat Lab 12/14/24 14:35 Completed CMP [Comprehensive Metabolic Panel] Stat Lab 12/14/24 14:35 Completed Lactic Acid Stat Lab 12/14/24 14:35 Completed Lipase Stat Lab 12/14/24 14:35 Completed Trop I [Troponin I] Stat Lab 12/14/24 14:35 Completed Urinalysis and Microscopic Stat Lab 12/14/24 14:10 Completed Medical Decision Narrative: In summary, patient is a 79-year-old male PMHx prostate cancer (radiation), DMT2, RA, HLD, HTN, long-term use of anticoagulant who presents to the ED for 1 week of constipation, abdominal pain and bloating. Patient has had a bowel obstruction in the past and states this feels similar. Patient states he has not had any type of bowel movement within 1 week, but is passing gas. Patient states he has been straining so hard to go to the restroom that he feels he is pulled his lower right back muscle. He has not had anything prior to arrival for pain for his back. Upon initial exam, patient is alert, oriented and cooperative. Patient is hemodynamically stable. Physical exam remarkable for distended abdomen, generalized tenderness. Bowel sounds normal. Right lumbar muscle spasm noted. Denies fever, chills, body aches, headache, visual disturbances, chest pain, shortness of breath. Differential diagnosis includes constipation, infectious process, mass, SBO, renal calculi, peritonitis, complicated UTI, among others. Initial workup will be conducted with hematologic labs & imaging. Initial inventions include lactulose. Initial workup reviewed by me. CBC unremarkable for any leukocytosis, stable H&H. CMP unremarkable for any actionable abnormalities. Total bilirubin 0.5. First troponin < 0.01. lipase 64. Urinalysis unremarkable for any infectious process, 1+ blood. Final read of the CT remarkable for constipation, fatty liver, left adrenal nodule, small bilateral inguinal hernias, no SBO. I discussed this with the patient and he is already aware of the other CT findings. Advised him that we will administer the enema now that we have confirmed constipation on the CT scan. Upon repeat evaluation, patient had an acceptable resolution of symptoms. They were ambulatory in the ED. Able to tolerate PO. He had a large BM in the ED. Given this, I feel that patient is appropriate to be discharged home at this time. Discussed with patient that I have sent a prescription of MiraLAX to the pharmacy. Advised him to increase his fluid intake. Discussed taking the Robaxin for muscle spasm as directed. He will need to follow-up with his PCP within 3 to 5 days. Discussed with patient and spouse return precautions to the ED. They both verbalized understanding. Patient was ambulatory from the ED without difficulty. I was consulted by the [facility], and we discussed the complexity of the problems being addressed. I approved the treatment and management plan for this patient's care in the Emergency Department, thus performing a substantive portion of the medical decision making. Elio Thrasher MD Critical Care <Rosa Salter APRN - Last Filed: 12/14/24 18:09> Critical Care Time Critical Care Time: No
[2024-12-14 14:45] LABS: Basophils % 0.5 % (0.1-2.0); Eosinophils % 0.5 % (0.1-12.0); Hematocrit 30.7 % (42.0-52.0); Hemoglobin 9.6 g/dL (14.1-18.0); Lymphocytes # 0.3 K/mm3 (0.7-4.5); Lymphocytes % 5.2 % (10-50); Mean Corpuscular HGB Conc 31.3 g/dL (31.8-35.4); Mean Corpuscular Hemoglobin 27.7 pg (27.0-31.2); Mean Corpuscular Volume 88.5 fl (80-94); Mean Platelet Volume 8.7 fl (7.4-10.4); Monocytes # 0.5 K/mm3 (0.1-1.0); Neutrophils # 5.4 K/mm3 (1.8-7.8); Neutrophils % 85.5 % (37.0-80.0); Platelet Count 264 K/mm3 (142-424); Red Blood Count 3.47 M/mm3 (4.60-6.20); Red Cell Distribution Width 23.3 % (11.5-17.5); White Blood Count 6.4 K/mm3 (4.8-10.8)
[2024-12-14 14:55] LABS: Bacteria,Urine Trace /lpf; Squamous Epithelial Cell,Urine Occasional #/hpf (0-5)
[2024-12-14 15:00] VITALS: BP 159/81; PULSE 58; O2SAT 95
[2024-12-14 15:03] LABS: Alanine Aminotransferase 48 U/L (12-78); Albumin Level 4.2 g/dl (3.5-5.0); Albumin/Globulin Ratio 1.6 (1.1-1.8); Alkaline Phosphatase 74 U/L (38-126); Aspartate Amino Transferase 45 U/L (17-59); Bilirubin,Total 0.5 mg/dl (0.2-1.3); Blood Urea Nitrogen 22 mg/dl (9-20); Calcium 9.6 mg/dl (8.4-10.2); Carbon Dioxide 30 mmol/L (22.0-30.0); Chloride 101 mmol/L (98-107); Creatinine Clearance Estimated 77 mL/min (50-200); Estimated Glomerular Filt Rate 72 ml/min (>60); GFR (African American) 88 ML/MIN (>60); Globulin 2.7 g/dL (1.3-3.2); Glucose 162 mg/dl (74-100); Sodium 139 mmol/L (136-145); Total Protein,Serum 6.9 g/dl (6.3-8.2)
[2024-12-14 15:10] LABS: Anion Gap 12.1 mEq/L (5-15); Potassium 4.1 mmoL/L (3.5-5.1)
[2024-12-14 15:13] LABS: Lactic Acid 1.3 mmol/L (0.7-2.1); Lipase 64 U/L (23-300)
[2024-12-14 15:17] LABS: Troponin I < 0.01 ng/ml (0.00-0.034)
[2024-12-14] MEDS: IOPAMIDOL-370 (76%);100ML BOTTLE 75 ML IV (15:17)
[2024-12-14] MEDS: SODIUM CHLORIDE 0.9% 10ML SYR (RAD ONLY) 10 ML IV (15:17)
[2024-12-14 15:30] VITALS: BP 174/79; PULSE 58; O2SAT 95
[2024-12-14] MEDS: METHOCARBAMOL 500MG TABLET 500 MG PO (15:35)
[2024-12-14 16:00] VITALS: BP 170/86; PULSE 54; O2SAT 95
[2024-12-14 18:10] VITALS: BP 166/70; PULSE 60; RESP 18; TEMP 36.7; O2SAT 97
== END 2024-12-14 18:10 | disposition home or self-care (01) ==
PROVIDERS: Nurse Practitioner; Emergency Provider Emergency Medicine; PCP Family Medicine
DX: K59.00 Constipation, unspecified (principal); R10.84 Generalized abdominal pain
CPT/HCPCS: 74177; 80053; 81001; 83605; 83690; 84484; 85025; 96374; 99285; Q9967

== ENCOUNTER 2024-12-22 14:03 | Outpatient (CLI) | payer MEDICARE, OTHER, SELFPAY ==
[2024-12-22 14:49] LABS: Basophils % 0.5 % (0.1-2.0); Eosinophils # 0.1 K/mm3 (0.0-0.4); Eosinophils % 1.3 % (0.1-12.0); Hematocrit 32.7 % (42.0-52.0); Hemoglobin 10.1 g/dL (14.1-18.0); Lymphocytes # 0.4 K/mm3 (0.7-4.5); Lymphocytes % 7.4 % (10-50); Mean Corpuscular HGB Conc 30.9 g/dL (31.8-35.4); Mean Corpuscular Hemoglobin 27.7 pg (27.0-31.2); Mean Corpuscular Volume 89.6 fl (80-94); Mean Platelet Volume 9.1 fl (7.4-10.4); Monocytes # 0.5 K/mm3 (0.1-1.0); Monocytes % 8.7 % (1.7-9.3); Neutrophils # 4.5 K/mm3 (1.8-7.8); Neutrophils % 81.6 % (37.0-80.0); Nucleated Red Blood Cells # 0 10^3/uL; Nucleated Red Blood Cells % 0 %; Platelet Count 291 K/mm3 (142-424); Red Blood Count 3.65 M/mm3 (4.60-6.20); Red Cell Distribution Width 22.9 % (11.5-17.5); White Blood Count 5.5 K/mm3 (4.8-10.8)
[2024-12-22 16:12] LABS: Alanine Aminotransferase 49 U/L (12-78); Albumin Level 4.3 g/dl (3.5-5.0); Albumin/Globulin Ratio 1.8 (1.1-1.8); Alkaline Phosphatase 99 U/L (38-126); Anion Gap 13.3 mEq/L (5-15); Aspartate Amino Transferase 42 U/L (17-59); Bilirubin,Total 0.5 mg/dl (0.2-1.3); Blood Urea Nitrogen 25 mg/dl (9-20); Calcium 9.2 mg/dl (8.4-10.2); Carbon Dioxide 30 mmol/L (22.0-30.0); Chloride 103 mmol/L (98-107); Estimated Glomerular Filt Rate 82 ml/min (>60); GFR (African American) 99 ML/MIN (>60); Globulin 2.4 g/dL (1.3-3.2); Glucose 162 mg/dl (74-100); Potassium 4.3 mmoL/L (3.5-5.1); Sodium 142 mmol/L (136-145); Total Protein,Serum 6.7 g/dl (6.3-8.2)
[2024-12-22 16:42] LABS: Prostate Specific Ag, Diagnost 1.65 ng/ml (0.0-4.0)
== END 2024-12-22 23:59 | disposition home or self-care (01) ==
LOC: LAB 14:05
PROVIDERS: PCP Family Medicine; Visit Provider Internal Medicine Hematology & Oncology
DX: C61 Malignant neoplasm of prostate (principal)
CPT/HCPCS: 36415; 80053; 84153; 85025

== ENCOUNTER 2025-01-06 14:00 | Outpatient (RCR) | payer MEDICARE, OTHER, SELFPAY ==
--- NOTE | 2024-12-22 16:23 | HMH.PTOPEV ---
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 Pt reports intermittent pain that is aggravated by rolling over , donning his shirt & shoes/ socks, getting up from a reclined position, sneezing/ coughing, and prolonged standing. Pt reports leaning forward, sitting and laying flat improves pain. Pt reports he has been using a SPC since onset of LBP to maintain his balance due to getting brief, sharp pains with twisting or quick movements. Pt reports he was prescribed a muscle relaxer and hydrocodone which helps with pain. Pt denies having imaging of the low back . Pt denies paresthesia. Pt also reports 2 weeks ago he finished 40 radiation treatments for prostate cancer . 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 Chief Complaint Pain,Stiff Symptom Type Ache,Sharp,Dull Symptoms Relieved By Rest/Positioning,Heat, Prescription Meds Symptoms Aggravated By Standing,Physical Activity, Twisting,Lifting,Sneeze/ Coughing Current Functional Limitations Dressing,Standing,Squatting, Walking,Bending/Stooping Symptom Description Intermittent Level of pain today (0-10) 1 Pain scale - at its best (0-10) 0 Pain scale - at its worst (0-10) 7 Lumbopelvic Eval Posture Thoracic Spine Posture Standing Position Increased Kyphosis Lumbar Spine Posture Standing Position Decreased Lordosis Assistive device Assistive Devices Straight Cane Palapation tenderness bilateral lumbar spinal tenderness Yes: L3-L5 paraspinal tenderness Yes: R>L lumbar PS buttock tenderness Yes: B piriformis & gluteal mm Lumbar/Sacral Palpation Findings Tenderness Lumbar/Sacral Palpation Overall Comment 1-2/4 TTP Accessory Movement L-spine Vertebrae Accessory Movements Central P/A [place] that Elicit Symptoms L3 bilateral L4 bilateral L5 bilateral Range of Motion Lumbar Spine Active Flexion Range of 60 Motion (degrees) Lumbar Spine Active Extension Range of 10 Motion (degrees) Left Lumbar Spine Lateral Flexion Active 10 Range of Motion (degrees) Right Lumbar Spine Lateral Flexion 10 Active Range of Motion (degrees) Manual Muscle Test Bilateral Knee Extension Strength Grade 5 Normal Knee Flexion Strength Grade 5 Normal Hip Flexion Strength Grade 4 Good Hip Abduction Strength Grade 4 Good Hip Adduction Strength Grade 4 Good Hip Extension Strength Grade 3+ Fair+ Ankle Dorsiflexion Strength Grade 5 Normal Altered Sensation Comment equal and intact to light touch sensation bilaterally Special Tests Sciatic Nerve Tension Test Negative Left,Negative Right Unilateral Straight Leg Raise (Lasegue) Negative Left,Negative Right Test Oswestry Index Section 1 Pain Intensity The pain comes and goes and is severe Section 2 Personal Care (Washing,Dresing) unable to do some washing and dressing without help Section 3 Lifting lifting heavy weights off the floor, but I can manage light to medium Section 4 Walking I cannot walk more than 1/4 mile without increasing pain Section 5 Sitting I can sit in any chair for as long as I like Section 6 Standing I cannot stand more than 1/2 hour without increasing pain Section 7 Sleeping Because of my pain, my normal night's sleep is less than 6 hours sleep Section 8 Social Life Pain has restricted my social life and I do not go out often Section 9 Traveling I get some pain when traveling , but none of my usual forms of travel m Section 10 Changing Degreee of Pain My pain seems to be getting better, but improvement is slow Score and Risk Level Oswestry Sc 27 Oswestry Risk Level Severe Disability Outpatient Therapy Assessment Impairments Problems/Impairmments Palpation Tenderness,Impaired Range of Motion,Impaired Strength,Impaired Transfers, Impaired Standing,Impaired Lifting,Impaired Dressing, Impaired Household Care, Impaired Squatting,Subjective C/O Pain,Impaired Self Care/ Self Management Prognosis Rehab Potential Good Clinical Impression Consistent with Diagnosis Yes Short Term Goals Number of Weeks 3 Improve Transfers Yes: perform bed mobility I with pain 5/10 or less Improve Ability to Dress Self Yes: report ability perform UE /LE dressing I with p! 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 Goals Number of Weeks 6 Decreased Palpation Tenderness Yes Increase Range of Motion Yes: Improve lumbar AROM flex to at least 70 Increase Strength Yes: Improve LE MMT to 4+/5 grossly to assist with function Restore Ability to Lift Objects to Waist Yes: demonstrate proper Level lifting mechanics to prevent reinjury Improve Oswestry Score Yes: Improve score to 22 or less to improve overall QOL Decrease Subjective C/O Pain Yes: Improve pain at worst to 3/10 to improve overall QOL Outpatient Therapy Plan of Care Treatment Plan May Include Therapeutic Exercise Including Home Yes Exercise Program Manual Therapy Techniques Yes Neuromuscular Re-education Yes Therapeutic Activities to Return to Yes Previous Functional/Work Level ADL/Self Care Education Yes Mechanical Traction Yes Dry Needling Yes Thermal Modalities Yes Electrical Stimulation Yes Ultrasound/Phonophoresis Yes Iontophoresis Yes Massage Yes Manual Lymphatic Drainage Yes Group Therapy for Medicare Yes Eval/Re-Eval Yes Aquatic Therapy Yes Frequency Times per week 2 Duration Number of Weeks 4-6 Addendums This patient is a candidate for social No or vocational rehab? Patient/Guardian verbally acknowledges Yes understanding of treatment program and consents to further treatment? Patient/Guardian verbally acknowledges Yes understanding of diagnosis, prognosis and goals for treatment? Eval Complexity PT Charges 77320 - Moderate Complexity Shoulder/Elbow Eval Shoulder Objective Measurements Elbow Objective Measurements PHYSICIAN CERTIFICATION: I certify the specified therapy services for Martin Lezama are required, authorized, and reviewed every 30 days.
== END 2025-01-06 23:59 | disposition home or self-care (01) ==
LOC: PT 14:00
PROVIDERS: PCP Family Medicine; Visit Provider Family Medicine
DX: S39.012A Strain of muscle, fascia and tendon of lower back, initial encounter (principal)
CPT/HCPCS: 97110; 97140; 97163; 97530

== ENCOUNTER 2025-01-07 07:41 | Outpatient (CLI) | payer MEDICARE, OTHER, SELFPAY ==
[2025-01-07 18:04] LABS: Chloride 104 mmol/L (98-107)
[2025-01-07 18:05] LABS: Albumin Level 4.5 g/dl (3.5-5.0); Potassium 4.3 mmoL/L (3.5-5.1); Sodium 141 mmol/L (136-145)
[2025-01-07 18:08] LABS: Alanine Aminotransferase 41 U/L (12-78); Albumin/Globulin Ratio 1.7 (1.1-1.8); Alkaline Phosphatase 119 U/L (38-126); Anion Gap 13.3 mEq/L (5-15); Aspartate Amino Transferase 39 U/L (17-59); Bilirubin,Total 0.4 mg/dl (0.2-1.3); Blood Urea Nitrogen 27 mg/dl (9-20); Calcium 9.7 mg/dl (8.4-10.2); Carbon Dioxide 28 mmol/L (22.0-30.0); Cholesterol 172 mg/dl (140-200); Estimated Glomerular Filt Rate 65 ml/min (>60); GFR (African American) 79 ML/MIN (>60); Globulin 2.6 g/dL (1.3-3.2); Glucose 267 mg/dl (74-100); Total Protein,Serum 7.1 g/dl (6.3-8.2); Triglycerides 149 mg/dl (30-150); VLDL Cholesterol 30 mg/dL (0-40)
[2025-01-07 18:09] LABS: Chol/HDL Ratio 3.5 (1-3.5); HDL Cholesterol 49 mg/dl (40-60)
[2025-01-07 18:43] LABS: Hemoglobin A1C 7.4 % (4.0-6.0)
[2025-01-07 19:15] LABS: Direct LDL Cholesterol 90.67 mg/dL (100-129)
--- OUTSIDE RECORDS SUMMARY | 2025-01-08 07:43 | XMS_ITS | Continuity of Care Document ---
Author Organization [facility] Infectious Disease -[address] Address [address] [place] [address] Care Team Providers Care Emergency Room Clerk Name Role Phone MAXIMILIAN TORRES Primary Care Provider [phone] AURELIA DEL CASTILLO Oil Filters Inspector [phone] FADY LAMB Urologist EMERY PIEDRA Blocker And Polisher GAYLA SANCHEZ Primary Care Provider Assessment No assessment recorded. Plan of Treatment Reminders Order Date Submit Date Provider Last Modified By Organization Details Last Modified Time Details Appointments Establish ed Visit 15 min 2024 11:00A M Nery lin APRN Not available Not available Not available Lab CBC w/ auto diff 2024 025 [facility], [address] [facility], [place], [address], 12/21/2024 14:21:17 hepatic function panel, serum 2024 025 [email or web address] [facility], [address] [facility], [place], [address], 01/01/2025 19:55:37 Referral None recorded. Procedures None recorded. Surgeries None recorded. Imaging None recorded. Medication Orders None recorded. Patient TargetsNo targets recorded. Patient InstructionsNo instructions recorded. Reason for Referral None Reported. Problems Name Problem SNOMED Code Status Onset Date Resolution Date Notes Provider Name and Address Organization Details Recorded Time Sleep apnea 55112312 Active 2021 RUSH Christopher [place] & [place] 2 13:02:29 Diabetes mellitus 17359339 Active 2021 RUSH Christopher [place] [facility] [place] 2 13:02:36 Irregular heart beat 277354128 Active 2021 RUSH Christopher [place] [facility] [place] 2 13:02:49 Hypertensive disorder 32451772 Active 2021 RUSH Christopher [place] [facility] [place] 2 13:02:55 Problem Notes None recorded. Procedures Surgical History Date Name Laterality Status Provider Name and Address Organization Details Recorded Time 09/15/18 98 Cardiovascular Surgery completed Ben Torres [place] [facility] [place] 08/05/2022 13:01:39 09/15/18 98 Other completed Ben GAINES [facility] & [place] 08/05/2022 13:01:39 procedure on knee completed Ben Torres [place] [facility] [place] 08/05/2022 13:05:30 Imaging Results None recorded. Procedure Notes None recorded. Medical Equipment None Reported. Allergies No known drug allergies Medications Name Sig Start Date Stop Date Status Note LastModified by Organization Details LastModified Time amoxicillin 500 mg capsule TAKE ONE CAPSULE BY MOUTH THREE TIMES DAILY 08/02 completed Not Available Not Available Not Available methocarbam ol 500 mg tablet TAKE ONE TABLET BY MOUTH THREE TIMES DAILY MAY CAUSE DROWSINES S active Not Available Not Available No t Available prednisone 10 mg tablet TAKE 12.5 MG PER DAY 07/23 completed Not Available Not Available Not Available tizanidine 2 mg tablet TAKE ONE TABLET BY MOUTH THREE TIMES DAILY NEEDED FOR MUSCLE SPASMS MAY CAUSE DROWSINES S active Not Available Not Available No t Available oxybutynin chloride ER 10 mg tablet,exte nded release 24 hr TAKE ONE TABLET BY MOUTH EVERY DAY FOR urine urgency active Not Available Not Available No t Available hydrocodone 5 mg-acetamin ophen 325 mg tablet TAKE ONE TABLET BY MOUTH EVERY 8 HOURS NEEDED FOR PAIN active Not Available Not Available No t Available senna 8.6 mg tablet TAKE ONE TABLET BY MOUTH EVERY DAY AT BEDTIME NEEDED FOR constipat ion active Not Available Not Available No t Available meloxicam 15 mg tablet TAKE ONE TABLET BY MOUTH EVERY DAY NEEDED FOR jaw pain --TAKE WITH FOOD-- 08/02 completed Not Available Not Available Not Available glipizide 10 mg tablet TAKE ONE TABLET BY MOUTH EVERY DAY active Not Available Not Available No t Available prednisone 20 mg tablet TAKE ONE TABLET BY MOUTH EVERY MORNING --TAKE WITH FOOD-- DO not take any NSAIDS -- 06/23 completed Not Available Not Available Not Available prednisone 5 mg tablet TAKE 1 TO 2 TABLET(S) BY MOUTH EVERY DAY --TAKE WITH FOOD-- active Not Available Not Available No t Available acetaminoph en 300 mg-codeine 30 mg tablet TAKE ONE TABLET BY MOUTH EVERY 4 TO 6 HOURS NEEDED FOR PAIN MAY CAUSE DROWSINES S 06/23 completed Not Available Not Available Not Available sildenafil 100 mg tablet Take 1 tablet as needed by oral route. active Not Available Not Available No t Available warfarin 4 mg tablet active Not Available Not Available No t Available cefadroxil 500 mg capsule TAKE ONE CAPSULE BY MOUTH 2 HOURS BEFORE PROCEDURE ; TAKE ONE CAPSULE BY MOUTH 8 HOURS AFTER PROCEDURE active Not Available Not Available No t Available isoniazid 300 mg tablet TAKE ONE TABLET BY MOUTH EVERY DAY active Not Available Not Available No t Available hydrocodone -homatropin e 5 mg-1.5 mg tablet TAKE ONE TABLET BY MOUTH TWICE DAILY NEEDED FOR cough MAY CAUSE DROWSINES S active Not Available Not Available No t Available methotrexat e sodium 2.5 mg tablet TAKE FIVE TABLETS BY MOUTH EVERY 7 DAYS DIRECTED active Not Available Not Available No t Available tamsulosin 0.4 mg capsule Take 2 capsules every day by oral route. active Not Available Not Available No t Available diazepam 2 mg tablet TAKE ONE TABLET BY MOUTH ONCE active Not Available Not Available No t Available dexamethaso ne 2 mg tablet TAKE ONE TABLET BY MOUTH 2 HOURS BEFORE PROCEDURE ; TAKE ONE TABLET BY MOUTH 2 HOURS AFTER PROCEDURE ; AND TAKE ONE TABLET BY MOUTH 8 HOURS AFTER PROCEDURE active Not Available Not Available No t Available simvastatin 20 mg tablet Take 1 tablet every day by oral route in the evening for 90 days. active Not Available Not Available No t Available erythromyci n 5 mg/gram (0.5 %) eye ointment APPLY TO SUTURES 2 TO 3 TIMES DAILY FOR 1 WEEK 06/23 completed Not Available Not Available Not Available prednisone 50 mg tablet TAKE ONE TABLET BY MOUTH EVERY DAY FOR 5 DAYS --TAKE WITH FOOD-- 06/23 completed Not Available Not Available Not Available Vitamin B-6 100 mg tablet TAKE ONE TABLET BY MOUTH EVERY DAY DIRECTED active Not Available Not Available No t Available oxybutynin chloride ER 5 mg tablet,exte nded release 24 hr TAKE ONE TABLET BY MOUTH EVERY DAY active Not Available Not Available No t Available omeprazole 20 mg capsule,del ayed release TAKE ONE CAPSULE BY MOUTH EVERY DAY active Not Available Not Available No t Available folic acid 1 mg tablet TAKE ONE TABLET BY MOUTH EVERY DAY active Not Available Not Available No t Available hydrochloro thiazide 25 mg tablet Take 1 tablet every day by oral route in the morning. active Not Available Not Available No t Available warfarin 1 mg tablet active Not Available Not Available No t Available polyethylen e glycol 3350 17 gram/dose oral powder DISSOLVE 17 GRAMS OF POWDER INTO 4 TO 8 OUNCES OF WATER, JUICE, SODA, COFFEE, OR TEA THEN DRINK EVERY DAY active Not Available Not Available No t Available levofloxaci n 750 mg tablet TAKE ONE TABLET BY MOUTH ONCE DAILY FOR 5 DAYS -- FINISH ALL MEDICINE -- take first DOSE 24 hours prior TO procedure AND THEN each morning UNTIL completed active Not Available Not Available No t Available methylpredn isolone 4 mg tablets in a dose pack TAKE ACCORDING TO PACKAGE INSTRUCTI ONS --TAKE WITH FOOD-- -- FINISH ALL MEDICINE -- 08/02 completed Not Available Not Available Not Available bromphenira mine-pseudo ephedrine-D M 2 mg-30 mg-10 mg/5 mL oral syrup TAKE 2 TEASPOONS FUL (10 ML) BY MOUTH EVERY 6 HOURS active Not Available Not Available No t Available lisinopril 2.5 mg tablet TAKE ONE TABLET BY MOUTH EVERY DAY active Not Available Not Available No t Available atenolol 50 mg tablet Take 1 tablet every day by oral route at bedtime for 90 days. active Not Available Not Available No t Available glipizide 5 mg tablet TAKE 1 AND 1/2 TABLET BY MOUTH DAILY active Not Available Not Available No t Available amoxicillin 500 mg-potassiu m clavulanate 125 mg tablet TAKE ONE TABLET BY MOUTH TWICE DAILY FOR FOURTEEN DAYS -- FINISH ALL MEDICINE -- active Not Available Not Available No t Available enoxaparin 100 mg/mL subcutaneou s syringe INJECT 0.9 ML (90MG) SUBCUTANE OUSLY EVERY TWELVE HOURS FOR 30 DAYS active Not Available Not Available No t Available FreeStyle Lite Strips 02/03 completed Not Available Not Available Not Available Eye Itch Relief 0.025 % (0.035 %) drops instill 1 DROP IN EACH EYE TWICE DAILY 06/24 completed Not Available Not Available Not Available GaviLyte-G 236 gram-22.74 gram-6.74 gram-5.86 gram oral solution MIX DIRECTED AND DRINK 240 ML (8 OUNCES) BY MOUTH EVERY 10 MINUTES UNTIL FECAL EFFLUENT IS CLEAR OR OTHERWISE DIRECTED 06/23 completed Not Available Not Available Not Available dapaglifloz in propanediol 10 mg tablet Take 1 tablet every day by oral route in the evening. active Not Available Not Available No t Available Vitals Date Recorded Body height Heart rate Oxygen saturation Oxygen saturation in Arterial blood by Pulse oximetry Heart rate Body temperature Body mass index (BMI) Body weight Systolic blood pressure Diastolic blood pressure Provider Name and Address Organization Details Last Updated DateTime 5 187.96 cm 79 /min 94 % 94 % 79 /min 98 [degF] 25.5 kg/m2 80140.8 8 g 122 mm[Hg] 67 mm[Hg] Tammy Jaimes [facility] & [place] 13:43:20 Social History Question Answer Notes LastModified by Organizat ion Details LastModified Time Tobacco Smoking Status [facility] [place] [facility] [place] 08/05/2022 13:01:35 Do You Have An Advance Directive? Yes [email or web address] Information not available 08/05/2022 What Is Your Level Of Alcohol Consumption? None [email or web address] Information not available 08/05/2022 Are You Blind Or Do You Have Difficulty Seeing? No [email or web address] Information not available 08/05/2022 What Was The Date Of Your Most Recent Tobacco Screening? 06/21/2024 [email or web address] Information not available 06/24/2024 Are You Passively Exposed To Smoke? No [email or web address] Information no t available 08/05/2022 Do You Or Have You Ever Used Smokeless Tobacco? Never Used Smokeless Tobacco [email or web address] Information not available 08/05/2022 How Much Tobacco Do You Smoke? No [email or web address] Information not available 08/05/2022 Do You Feel Stressed (tense, Restless, Nervous, Or Anxious, Or Unable To Sleep At Night)? [id number] [email or web address] Information not available 08/05/2022 Do You Use Any Illicit Or Recreational Drugs? No [email or web address] Information not available 08/05/2022 How Many Years Have You Smoked Tobacco? 30 Years In The Past Information not available 08/05/2022 Sex: Male Functional Status Question Answer Note LastModified by Organizat ion Details LastModified Time What is your exercise level? Occasional [email or web address] Information not available 08/05/2022 Mental Status None recorded. Family History Relationship Description Onset Age of this Age Resolved Age Notes LastModified by Organization Details LastModified Time Mother Myocardial infarction dec [email or web address] Not available 08/05 13:03:49 Mother Kidney disease pt. added direct ly (06/21) [email or web address] Not available 06/21/2024 12:47:46 Father Alcoholism dec [email or web address] Not availabl e 12/21/2024 13:37:17 Brother Family history unknown [email or web address] Not available 2024 13:37:17 Sister Family history unknown [email or web address] Not available 2024 13:37:17 Sister Kidney disease pt. added direct ly (06/21) [email or web address] Not available 06/21/2024 12:47:46 Medical History Condition Response Diabetes Y Autoimmune disease Y Deep Vein Thrombosis Y Hypertension Y Obstructive Sleep Apnea Y Ear or Hearing Problems Y High Cholesterol Y Past Encounters Encounter ID Performer Location Encounter Start Date Encounter Closed Date Diagnosis/Indication Diagnosis SNOMED-CT Code Diagnosis ICD10 Code Diagnosis Note [id number] Nery [place]-Dariel in, OPTIMIZATION ANALYST [facility] Infectiou s Disease -[address] [place] [address] 12/21/2024 13:36:37 12/21/2024 13:51:52 Inactive tuberculosis 82709862 Z22.7 History of being in the . Patient is negative for any pulmonary symptoms. Chest xray normal. Patient is on suppressiv e medication s for PMR. Patient takes Warfarin due to his mechanical heart valve. Patient has been on Isoniazid and Vitamin B6 for the last 6 months. Will check a CBC and hepatic function panel today. Patient ordered his own Vitamin B6 OTC and will take 100mg daily with treatment .Will see patient back in 3 months. High risk medication monitoring indicated [id number] 1129103 Z76.89 Will check a CBC and hepatic function panel due to the terminal gauger use of Isoniazid. Will monitor weight regularly and check for adverse effects. Health Concerns Section Related Observation LastModified by Organization Detai ls LastModified Time None Recorded Concern Status LastModified by Organization Details LastModified Time None Recorded Payers Encounter Date Sequence Insurance Name Policy Number Policy Carroll Covered Member ID Carroll Member ID Guarantor Name 12/21/2024 2 [place] - DOS PRIOR TO 2024 - [employer] () Martin Lise [id number] Martin Lezama 12/21/2024 1 MEDICARE-ND (MEDICARE) Martin Lezama [id number] Martin Lezama Notes Date Note Type Note Provider Name and Address Organization Details Recorded Time 12/21/2024 text/html patient presents to clinic for follow up on latent TB. Patient has been taking Isoniazid and Vitamin B6 for the last 6 months. Patient is tolerating. He denies any nausea/vomiting/d iarrhea. Patient is chronically on prednisone and his bilateral hands are swollen. His weight is stable. Vitals stable. He denies any respiratory symptoms. Denies any fevers. Denies any parasthesia. He is currently having radiation therapy 5 days a week for prostate cancer. Nery Lee, OPTIMIZATION ANALYST [address] , [place], [address], [facility] [place] [facility] [place] 12/21/2024 13:51:11
--- OUTSIDE RECORDS SUMMARY | 2025-01-08 07:43 | XMS_ITS | Data Portability ---
Author Organization [facility], RADIATION THERAPY [place] Address 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 A PSMA PET/CT scan is indicated for initial staging to determine whether the cancer has spread outside the prostate gland. If widespread metastatic disease is not identified on PSMA PET/CT scan, Mr. Lezama will be a good candidate for external beam radiation therapy. Because of his high risk for developing metastatic disease, I recommend his radiation therapy target volume include his seminal vesicles and pelvic lymph nodes in addition to his prostate. Standard treatment for men with high-risk adenocarcinoma of the prostate such as Mr. Lezama includes a 24-36-month course of androgen deprivation therapy in addition to radiation therapy. Mr. Lezama is scheduled to receive his first 6-month Lupron injection from Dr. Lamb on 08/24/2024. I reviewed with Mr. Lezama, his , and his daughter the rationale for, procedures of, alternatives to, and potential acute and chronic adverse effects of external beam radiation therapy to his prostate. Among the acute adverse effects I described were dysuria, urinary frequency, urinary urgency, decreased urinary stream, diarrhea, and fatigue. Among the potential chronic adverse effects I described were hematochezia, rectal pain, decreased urinary function, bowel obstruction, erectile dysfunction, decreased or absent ejaculate, and induction of a secondary malignancy. I explained that prior to the start of radiation therapy, I will insert gold fiducial markers into his prostate to precisely target his prostate during each treatment session. I explained to Mr. Lezama, his , and his daughter that he is not a candidate for SpaceOAR hydrogel placement because of his very poor urinary function despite medication and recent hospitalization for urinary retention. The insertion of SpaceOAR could increase pressure on his urinary flow and cause complete urinary retention. After I answered all of their questions to their satisfaction, Mr. Lezama requested we proceed with the suggested PSMA PET/CT scan, androgen deprivation therapy, prostate fiducial marker insertion, and external beam radiation therapy. I personally spent a total of more than 90 minutes preparing for, conducting, and documenting this consultation and coordinating the patient? s care. I provided Mr. Lezama with my contact information and encouraged him to contact me with any further questions or concerns. Thank you, Dr. Lamb, for kindly referring Mr. Lezama to me. Plan: 1. Mr. Lezama will receive a 6-month Lupron injection from Dr. Lamb on 08/24/2024. 2. Mr. Lezama will have a PSMA PET/CT scan for initial staging of his very high-risk prostate cancer on 09/01/2024. I will telephone Mr. Lezama to discuss the results of the scan when it is done. 3. I prescribed oxybutynin 10 mg ER to take daily instead of his 5 mg current dose to improve his urinary function. I also advised him to take his tamsulosin 30 minutes after meals. 4. If widespread metastatic disease is not found on PSMA PET/CT scan, Mr. Lezama will return here for prostate fiducial marker insertion. He will take bridge Lovenox instead of warfarin prior to the procedure. Intensity modulated radiation therapy will then be used to target his prostate, seminal vesicles, pelvic lymph nodes, and any sites of extraprostatic extension identified on PSMA PET/CT scan. [email or web address] Not available 08/29/2024 11:46:34 09/17/2024 09/17/2024 78-year-old with very high risk prostate cancer who received a 6-month Lupron injection from Dr. Lamb on 09/03/2024 underwent insertion today of prostate fiducials in preparation for undergoing volumetric modulated arc radiation therapy to his prostate, seminal vesicles, and pelvic and lower para-aortic lymph nodes. SpaceOAR hydrogel was not inserted because of his poor urinary function and outflow obstruction following prostate biopsy. He will return next week for treatment planning MRI and CT scan. [email or web address] Not available 09/20/2024 21:51:35 Plan of Treatment Reminders Order Date Submit Date Provider Last Modified By Organization Details Last Modified Time Details Appointments RECHECK 2024 11:15A M FADY LAMB MD Not available Not available Not available RECHECK 2024 10:30A M ZORAIDA GARDNER MD Not available Not available Not available Lab None recorded . Referral None recorded . Procedures None recorded . Surgeries None recorded . Imaging None recorded . Medication Orders None recorded . Patient TargetsNo targets recorded. Patient InstructionsNo instructions recorded. Reason for Referral None Reported. Results Created Date Observation Date Name Description Value Unit Range Abnormal Flag Note LastModifiedBy Organization Detail LastModifiedTime 09/01/20 24 09/01/2024 PET-C T, skull base to mid-t high scan [place] [id number] [facility] [place] [address] Patien t Name: TRISHA PERSAUD N Patien t : 1944 Patien t Orderi ng Provid er: ZORAIDA GARDNER EXAM DATE: 2023 EXAM: PET-CT PSMA SKULL MID THIGH INT ST CLINIC AL INFORM ATION: Prosta te Cancer - Initia l PROCED URE: A baseli ne serum creati nine with eGFR was obtain ed prior to inject ion of contra st medium due to the patien ts risk factor s for SALOMON. Calcul ated eGFR at time of exam was GFR =50 6.2 mCi Ga-68 PSMA ([facility] [id number] ) was inject ed IV. After an uptake time of 76 minute s, vertex throug h midthi gh PET imagin g was perfor med. This was follow ed by a low dose attenu ation correc tion/a natomi c locali zation CT from [facility] throug h the midthi gh levels . Urinar y tract was opacif ied with an inject ion of 50 mL Omnipa que 350 (1 x 50 ml bottle of [facility] [id number] ) admini stered 20 [address] the [address] scan. None was wasted and discar ded. The patien t did not requir e sedati on for this exam. COMPAR SUSANA: None FINDIN GS ON PET WITH CT CORREL ATION: Normal expect ed uptake is seen in the lacrim al glands , saliva ry glands , sinona fina comple x, liver, spleen , kidney s, small bowel and urinar y bladde r. Refere nce blood pool mean SUV = 1.2. Refere nce mean SUV of the liver = 3. Refere nce mean SUV of the paroti d glands = 7.8. Prosta te cancer specif ic areas of uptake are descri bed below. PROSTA TE/PRO STATIC BED: There is a PSMA PET avidly again involv ing the majori ty of the prosta te, SUV is 40. ABDOMI NAL AND PELVIC LYMPH NODES: Bilate ral iliac lympha denopa thy. There is adenop athy in the undergraduate internship al iliac region and along the margin s of the aortic bifurc ation. Small retrop eriton eal lymph nodes are also presen t. All these lymph nodes are psma elevat ed values rangin g from 15-30. Lymph nodes. These territ ories range in size from 5 to 20 mm. DISTAN T SPREAD : No lympha denopa thy in the medias tinal hilar region s. No adenop athy in the neck. No suspic ious skelet al lesion or area of uabnor mal skelet al uptake is seen. No suspic ious pulmon matty nodule or area of abnorm al uptake is seen. ADDITI ONAL FINDIN GS ON CT: No signif icant additi onal findin g is seen. COMBIN ED IMPRES VANE: 1. PSMA PET avid mass involv ing the prosta te compat ible with malign matt 2. There is indica tion of psma avid adenop athy involv ing the abdome n and pelvis bilate rally Interp reted By: Fred Escalona MD Electr onical ly Signed By: Fred Escalona MD on 2023 12:24 PM [email or web address] [facility] Radiology [facility] [address], [place], [address], 09/01/2024 12:51:05 09/27/19 25 09/27/2024 MRI, pelvi s, w/o contr ast [facility] [address] [place] [place] [address] Patidc t Name: TRISHA Tsang Patidc olson : 1944 Patidc t Orderi ng Provid er: ZORAIDA GARDNER EXAM DATE: 2024 EXAM: MR PROSTA TE RADIAT ION PLAN WO CONTRA ST CLINIC AL INFORM ATION: Elmer elias cancer TECHNI QUE: Biplan ar T2, ax T2*, axial DWI, ADC map, axial T1 images as well as axial T1 fat-sa t imagin g was perfor med. The patien t did not requir e sedati on for this exam. COMPAR SUSANA: 2023 FINDIN GS: QUALIT Y: Good PROSTA TE SIZE MEASUR EMENTS : Prosta te dimens ions = 5 x 4 x 5.2 cm (T x AP x CC). MARKER S: Marker s are seen within the prosta tic parenc hyma in image # 43 throug h 64 of series # [id number]. SPACE- OAR HYDROG EL: No gel is presen t. FOCAL LESION S: The study is not optimi zed for the detect ion of focal prosta tic lesion s. CAPSUL E AND NEIGHB ORING STRUCT URES: No capsul ar invasi on is identi fied. Neuro- vascul ar bundle s are normal bilate rally. Semina l vesicl es are normal . PELVIC LYMPH NODES: 13 mm left obtura tor region noted. 10 mm right obtura tor region noted. These are very small althou gh are indete rminat e PELVIC BONES: No suspic ious osseou s lesion is seen. IMPRES VANE: 1. Radiat ion therap y planni ng MR with marker and gel locati on as descri bed above. 2. Very tiny obtura tor nodes are noted bilate rally of uncert ain signif icance Interp reted By: Fred Escalona MD Electr onical ly Signed By: Fred Escalona MD on 025 4:20 PM [email or web address] [facility] Radiology [facility] [address] [place], [address], 09/27/2024 19:31:11 Result Notes None recorded. Procedures Surgical History Date Name Laterality Status Provider Name and Address Organization Details Recorded Time 09/17/19 25 Prostate marker placement with SpaceOAR completed ZORAIDA GARDNER MD [address], [place], [address], [facility] 09/20/2024 21:49:03 10/16/18 98 mechanical prosthetic [facility] 12:00:45 09/15/18 98 [facility] 12:01:01 09/15/18 80 vasectomy completed Roselyn [facility] 08/17/2024 12:01:12 Imaging Results Imaging Date Name Status LastModified by Organiz ation Details LastModified Time 09/01/2024 PET-CT, skull base to mid-thigh scan completed [facility] Radiology [address] [place], [address], 09/01/2024 12:51:05 09/27/2024 MRI, pelvis, w/o contrast completed [facility] Radiology [facility] [address] [place], [address], 09/27/2024 19:31:11 Procedure Notes None recorded. Medical Equipment None Reported. Allergies No known drug allergies Medications Name Sig Start Date Stop Date Status Note LastModified by Organization Details LastModified Time oxybutynin chloride ER 10 mg tablet,exte nded release 24 hr Take 1 tablet every day by oral route, for urine urgency. 2023 active Not Available Not Available Not Avai lable prednisone 5 mg tablet Take 1 tablet every day by oral route. active Not Available Not Available No t Available sildenafil 100 mg tablet Take 1 tablet as needed by oral route. active Not Available Not Available No t Available cefadroxil 500 mg capsule Take 1 capsule 2 hours before procedure and 1 capsule 8 hours after procedure 2023 active Not Available Not Available Not Avai lable isoniazid 300 mg tablet Take 1 tablet every day by oral route. active Not Available Not Available No t Available tamsulosin 0.4 mg capsule Take 2 capsules every day by oral route. active Not Available Not Available No t Available diazepam 2 mg tablet Take 1 tablet by oral route. 2023 active Not Available Not Available Not Avai lable dexamethaso ne 2 mg tablet Take 1 tablet 2 hours before procedure , 1 tablet 2 hours after procedure and 1 tablet 8 hours after procedure 2023 active Not Available Not Available Not Avai lable simvastatin 20 mg tablet Take 1 tablet every day by oral route. active Not Available Not Available No t Available omeprazole 20 mg capsule,del ayed release Take 1 capsule every day by oral route. active Not Available Not Available No t Available folic acid 1 mg tablet Take 1 tablet every day by oral route. active Not Available Not Available No t Available hydrochloro thiazide 25 mg tablet Take 1 tablet every day by oral route. active Not Available Not Available No t Available levofloxaci n 750 mg tablet Take 1 tablet every day by oral route. active Not Available Not Available No t Available oxybutynin chloride 5 mg tablet Take 1 tablet twice a day by oral route. active Not Available Not Available No t Available atenolol 50 mg tablet Take 1 tablet every day by oral route. active Not Available Not Available No t Available warfarin 4mg daily active Not Available Not A vailable Not Available glipizide 7.5 daily active Not Available Not Available Not Available Vitamin B6 active Not Available Not Av ailable Not Available Asprin Ec Low Dose 08/17 completed Not Available Not Available Not Available methotrexat e 2.5 mg tablet Take 2.5 mg by oral route for 5 days. active Not Available Not Available No t Available Farxiga 10 mg tablet Take 1 tablet every day by oral route. active Not Available Not Available No t Available Vitals Date Recorded Body height Body mass index (BMI) Body weight Body temperature Heart rate Oxygen saturation Oxygen saturation in Arterial blood by Pulse oximetry Systolic blood pressure Diastolic blood pressure Provider Name and Address Organization Details Last Updated DateTime 4 187.96 cm 24.9 kg/m2 58218.9 2 g 97.2 [degF] 66 /min 94 % 94 % 102 mm[Hg] 54 mm[Hg] Roselyn Rivera [facility] 11:31:12 Date Recorded Body height Provider Name an d Address Organization Details Last Updated DateTime 09/17/2024 187.96 cm Roselyn Rivera [facility] 09/17/2024 10:38:39 Social History Question Answer Notes LastModified by Organizat ion Details LastModified Time Tobacco Smoking Status Former Smoker Roselynaleksandr Rivera [facility] 08/17/2024 11:34:36 What Is Your Level Of Alcohol Consumption? None Information not available 08/17/2024 What Is Your Level Of Caffeine Consumption? Occasional Information not available 08/17/2024 When Did You Quit Smoking? 16+yearssincel astcigarette Information not available 08/17/2024 What Is Your Current Pack Years? 10packyears Information not available 08/17/2024 At What Age Did You Start Smoking Tobacco? 19 Information not available 08/17/2024 How Much Tobacco Do You Smoke? No Information not available 08/17/2024 Do You Use Any Illicit Or Recreational Drugs? No Information not available 08/17/2024 How Many Years Have You Smoked Tobacco? 25 Information not available 08/17/2024 Do You Or Have You Ever Used Any Other Forms Of Tobacco Or Nicotine? No Information not available 08/17/2024 Sex: Male Functional Status None recorded. Mental Status None recorded. Family History Relationship Description Onset Age of this Age Resolved Age Notes LastModified by Organization Details LastModified Time Father Toxic cirrhosis [email or web address] Not available 2023 11:33:19 Mother Kidney disease [email or web address] Not available 2023 11:33:30 Medical History Condition Response Pituitary Disorder N Kidney Stones N Hyperthyroidism N Implanted Cardiac Device Y Breast Cancer N Hyperparathyroidism N Digestive Problems N Chemotherapy N Lung Disease N Hypothyroidism N Skin Problems N Head & Neck N Gynecological History N Anemia N Back Pain N Genitourinary Disease N Mental Illness N Diabetes Y Autoimmune disease N Arthritis Y Seizures/Epilepsy N Tuberculosis Y Kidney Failure N Cancer Y Radiation Therapy N Cardiac Disease Y Malabsorption N High Cholesterol N Previous Radiation Therapy? N Liver Disease N Dialysis N Hypertension Y Kidney Disease N Past Encounters Encounter ID Performer Location Encounter Start Date Encounter Closed Date Diagnosis/Indication Diagnosis SNOMED-CT Code Diagnosis ICD10 Code Diagnosis Note [id number] MD [facility] [address] [place] [address] 05/19/2024 13:25:43 05/21/2024 06:07:21 [id number] FADY LAMB MD [facility] [address] [place] [address] 07/23/2024 11:25:17 07/23/2024 16:41:36 [id number] FADY LAMB MD SURGERY SCHEDULE [address] [place] [address] 08/04/2024 08:27:28 08/04/2024 08:27:53 [id number] MD [facility] [address] [place] [address] 08/09/2024 14:02:05 08/10/2024 04:08:34 [id number] ZORAIDA GARDNER MD [facility] [place] [address] [place] [address] 08/17/2024 10:55:10 08/30/2024 12:23:43 Malignant neoplasm of prostate [id number] C61 [id number] FADY LAMB MD [facility] [address] [place] [address] 09/03/2024 11:13:19 09/03/2024 16:46:21 [id number] ZROAIDA GARDNER MD RAD[facility]ERAPY [place] [address] [place] [address] 09/17/2024 09:29:57 09/21/2024 10:50:56 Malignant neoplasm of prostate [id number] C61 Health Concerns Section Related Observation LastModified by Organization Detai ls LastModified Time None Recorded Concern Status LastModified by Organization Details LastModified Time None Recorded Advance Directives Directive None Recorded Payers Encounter Date Sequence Insurance Name Policy Number Policy Carroll Covered Member ID Carroll Member ID Guarantor Name 08/17/2024 1 [place] Martin Lezama [id number] Martin Lezama 08/17/2024 2 FOR LIFE () Martin Lezama [id number] Martin Lezama 09/17/2024 1 [place] Martin Lezama [id number] Martin Lezama 09/17/2024 2 FOR LIFE () Martin Lezama [id number] Martin Lezama Notes Date Note Type Note Provider Name and Address Organization Details Recorded Time 08/17/2024 text/html 78-year-old with T1c, very high-risk 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 Lamb for radiation therapy. Mr. Lezama had serum PSA levels of 11.5 with 22% free on 08/04/2023, 13.4 with 21.9% free on 11/07/2023, 19.4 on 01/30/2024, and 41.3 on 04/29/2024. He was then referred to Dr. Lamb, who found on digital rectal exam on 05/19/2024 and enlarged, symmetrical, nontender, smooth prostate without nodules, induration, or tenderness. Prostate MRI on 06/22/2024 found a 3 cm PI-RADS 5 lesion in the medial right transitional zone at mid gland level extending to the posterior inferior midline and crossing midline to the left side. On 08/04/2024, MRI directed, transrectal ultrasound biopsies of the prostate by Dr. Lamb found Low Moor 5+4 = 9 adenocarcinoma involving between 5% and 100% of all 6 cores taken from the right side with 90% grade 4, equals Low Moor score 4+5=9 adenocarcinoma involving 95% - 100% of 2 out of the 3 cores taken from the area of interest with 70% grade 4, and Erica score 4+4 = 8 adenocarcinoma involving between 5% and 80% of 3 out of the 8 cores taken from the left side of the prostate with large cribriform pattern present. Dr. Lamb ordered GPS genomic analysis of the cancer cells with result pending. Mr. Lezama had hematuria through his Beltre catheter following biopsy for which his catheter was irrigated several times in the emergency department. The Beltre catheter was removed on 08/09/2024. Mr. Lezama was admitted to [facility] from 08/10/2024 through 08/15/2024 for urinary retention and hematuria. Beltre catheter was placed in the emergency department on 08/10/2024 and was removed on 08/14/2024. He was discharged the following day when he was able to urinate on his own. Today, Mr. Lezama reports an IPSS of 22 out of 35 with nocturia x 3? 4 and urinary frequency, intermittency, urgency, and weak stream despite taking tamsulosin 0.4 mg twice daily and oxybutynin 5 mg ER daily. He has gross hematuria and urgency incontinence. He takes warfarin for a [place] mechanical aortic heart valve that was implanted in 1997 and is MRI conditionally compatible. He was on prednisone 15 mg daily for polymyalgia rheumatica but this was switched recently to methotrexate by his cleaner wall. His DIVINA score is 25 out of 25 with the use of Viagra. He has regular bowel movements without melena, hematochezia, tenesmus, or frequent diarrhea. 1 benign polyp was resected at his most recent colonoscopy in 2021. He smoked 1 pack of cigarettes daily for 20 years but quit in 1997. ZORAIDA GARDNER MD [address], [place], [address], [facility] 08/29/2024 11:53:22
== END 2025-01-07 23:59 | disposition home or self-care (01) ==
LOC: LAB.DROPOF 01-08 07:41
PROVIDERS: PCP Family Medicine; Visit Provider Family Medicine
DX: E11.9 Type 2 diabetes mellitus without complications (principal); C61 Malignant neoplasm of prostate
CPT/HCPCS: 80053; 80061; 83036

== ENCOUNTER 2025-01-12 11:04 | Outpatient (CLI) | payer MEDICARE, OTHER, SELFPAY ==
--- OUTSIDE RECORDS SUMMARY | 2025-01-12 11:07 | XMS_ITS | Data Portability ---
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 After an uptake time of 76 minute s, vertex throug h midthi gh PET imagin g was perfor med. This was follow ed by a low dose attenu ation correc tion/a natomi c locali zation CT from [facility] throug h the midthi gh levels . Urinar y tract was opacif ied with an inject ion of 50 mL Omnipa que 350 (1 x 50 ml bottle of FORMERLY NAMED [facility] 0407-1 414-89 ) admini stered 20 minute [...] thy. There is adenop athy in the improvement intern al iliac region and along the margin [...] Escalona MD on 2023 12:24 PM rlavey [facility] [address], [place], [address], 09/01/2024 12:51:05 09/27/19 25 09/27/2024 MRI, pelvi s, w/o contr ast [facility] [address] [place] [address] Patidc t Name: TRISHA Tsang Patidc olson [...] Escalona MD on 025 4:20 PM rlavey [facility] [address] [place], [address], 09/27/2024 19:31:11 Result Notes None recorded. Procedures Surgical History Date Name Laterality Status Provider Name and Address Organization Details Recorded Time 09/17/19 25 Prostate marker placement with SpaceOAR completed ZORAIDA GARDNER MD [address], [place], [address], [facility] 09/20/2024 21:49:03 10/16/18 98 mechanical prosthetic aortic valve replacement [facility] 08/17/2024 12:00:45 09/15/18 98 [facility] knee [facility] 08/17/[facility]24 12:01:01 09/15/18 80 vasectomy completed Roselyn [facility] 08/17/2024 12:01:12 Imaging Results Imaging Date Name Status LastModified by Organiz ation Details LastModified Time 09/01/2024 PET-CT, skull base to mid-thigh scan completed [facility] [address] [place], [address], 09/01/2024 12:51:05 09/27/2024 MRI, pelvis, w/o contrast completed [facility] [address] [place], [address], 09/27/2024 19:31:11 Procedure Notes None recorded. Medical [...] Updated DateTime 4 187.96 cm 24.9 kg/m2 55774.9 2 g 97.2 [degF] 66 /min 94 % 94 % 102 mm[Hg] 54 mm[Hg] Roselyn Rivera [facility] 11:31:12 Date Recorded Body height Provider Name an d Address Organization Details Last Updated DateTime 09/17/2024 187.96 cm Roselyn Rivera [facility] 09/17/2024 10:38:39 Social History Question Answer Notes LastModified by Organizat ion Details LastModified Time Tobacco Smoking Status Former Smoker Roselynaleksandr Rivera [facility] 08/17/2024 11:34:36 What Is Your Level Of [...] Disorder N Kidney Stones N Hyperthyroidism N Breast Cancer N Implanted Cardiac Device Y Hyperparathyroidism N Digestive Problems N Chemotherapy N Lung Disease N Hypothyroidism N Skin Problems N Head & Neck N Anemia N Gynecological History N Back Pain N Genitourinary Disease N [...] SNOMED-CT Code Diagnosis ICD10 Code Diagnosis Note [id number] MD [facility] [address] [place] [address] 05/19/2024 13:25:43 05/21/2024 06:07:21 [id number] FADY LAMB MD [facility] [address] [place] [address] 07/23/2024 11:25:17 07/23/2024 16:41:36 [id number] FADY LAMB MD SURGERY SCHEDULE [address] [place] [address] 08/04/2024 08:27:28 08/04/2024 08:27:53 [id number] MD [facility] [address] [place] [address] 08/09/2024 14:02:05 08/10/2024 04:08:34 [id number] ZORAIDA GARDNER MD [facility] [address] [place] [address] 08/17/2024 10:55:10 08/30/2024 12:23:43 Malignant neoplasm of prostate 304655005 C61 [id number] FADY LAMB MD [facility] [address] [place] [address] 09/03/2024 11:13:19 09/03/2024 16:46:21 [id number] ZORAIDA GARDNER MD [facility] [address] [place] [address] 09/17/2024 09:29:57 09/21/2024 10:50:56 Malignant neoplasm of prostate 639027114 C61 Health Concerns Section Related Observation LastModified by Organization Detai ls LastModified Time None Recorded Concern Status LastModified by Organization Details LastModified Time None Recorded Advance Directives Directive None Recorded Payers Encounter Date Sequence Insurance Name Policy Number Policy Carroll Covered Member ID Carroll Member ID Guarantor Name 08/17/2024 1 [place]ARE[place] Martin Lezama [id number] Martin Lezama 08/17/2024 2 FOR LIFE () Martin Lezama [id number] Martin Lezama 09/17/2024 1 [place] Martin Lezama [id number] Martin Lezama 09/17/2024 2 FOR LIFE () Martin Lezama [id number] Martin Lezama Notes Date Note Type Note [...] of the prostate by Dr. Lamb found Dayton 5+4 = 9 adenocarcinoma involving between 5% and 100% of all 6 cores taken from the right side with 90% grade 4, equals Dayton score 4+5=9 adenocarcinoma involving 95% - 100% [...] on 08/09/2024. Mr. Lezama was admitted to [facility] from 08/10/2024 through 08/15/2024 for urinary retention [...] was switched recently to methotrexate by his dehairing machine tender. His DIVINA score is 25 out of 25 with the use of Viagra. He has regular bowel movements without melena, hematochezia, tenesmus, or frequent diarrhea. 1 benign polyp was resected at his most recent colonoscopy in 2021. He smoked 1 pack of cigarettes daily for 20 years but quit in 1997. ZORAIDA GARDNER MD [address], [place], [address], [facility] 08/29/2024 11:53:22
--- OUTSIDE RECORDS SUMMARY | 2025-01-12 11:07 | XMS_ITS | Continuity of Care Document ---
Author Organization [facility] Infectious Disease -[facility] Address [address] [place] [address] Care Team Providers Care Auditor/Quality Name Role Phone MAXIMILIAN TORRES Primary Care Provider AURELIA DEL CASTILLO Manager Payment FADY LAMB Urologist EMERY PIEDRA Hot Metal Crane Operator GAYLA SANCHEZ Primary Care Provider Assessment No assessment recorded. Plan of Treatment Reminders Order Date Submit Date Provider Last Modified By Organization Details Last Modified Time Details Appointments Establish ed Visit 15 min 2024 11:00A M Nery lin APRN Not available Not available Not available Lab CBC w/ auto diff 2024 025 [facility], [address], [place], [address], 12/21/2024 14:21:17 hepatic function panel, serum 2024 025 [email or web address] [facility], [address], [place], [address], 01/01/2025 19:55:37 Referral None recorded. Procedures None recorded. Surgeries None recorded. Imaging None recorded. Medication Orders None recorded. Patient TargetsNo targets recorded. Patient InstructionsNo instructions recorded. Reason for Referral None Reported. Problems Name Problem SNOMED Code Status Onset Date Resolution Date Notes Provider Name and Address Organization Details Recorded Time Sleep apnea 39099660 Active 2021 RUSH Christopher [place] [facility] [place] 2 13:02:29 Diabetes mellitus 35031718 Active 2021 RUSH Christopher [place] [facility] [place] 2 13:02:36 Irregular heart beat 200857855 Active 2021 RUSH Christopher [place] [facility] [place] 2 13:02:49 Hypertensive disorder 37994623 Active 2021 RUSH Christopher [place] [facility] [place] 2 13:02:55 Problem Notes None recorded. Procedures Surgical History Date Name Laterality Status Provider Name and Address Organization Details Recorded Time 09/15/18 98 Cardiovascular Surgery completed Ben Torres [place] [facility] [place] 08/05/2022 13:01:39 09/15/18 98 Other completed Ben GAINES [facility] [place] 08/05/2022 13:01:39 procedure on knee completed Ben Torres [place] [facility] [place] 08/05/2022 13:05:30 Imaging Results None recorded. Procedure [...] % 79 /min 98 [degF] 25.5 kg/m2 70719.8 8 g 122 mm[Hg] 67 mm[Hg] [facility] [place] 13:43:20 Social History Question Answer Notes LastModified by Organizat ion Details LastModified Time Tobacco Smoking Status [facility] [place] 08/05/2022 13:01:35 Do You Have An Advance Directive? Yes [email or web address] Information not available 08/05/2022 What Is Your Level Of Alcohol Consumption? None [email or web address] Information not available 08/05/2022 Are You Blind Or Do You Have Difficulty Seeing? No [email or web address] Information not available 08/05/2022 What Was The Date Of Your Most Recent Tobacco Screening? 06/21/2024 [email or web address] Information not available 06/24/2024 Are You Passively Exposed To Smoke? No [email or web address] Information no t available 08/05/2022 Do You Or Have You Ever Used Smokeless Tobacco? Never Used Smokeless Tobacco [email or web address] Information not available 08/05/2022 How Much Tobacco Do You Smoke? No [email or web address] Information not available 08/05/2022 Do You Feel Stressed (tense, Restless, Nervous, Or Anxious, Or Unable To Sleep At Night)? [id number] [email or web address] Information not available 08/05/2022 Do You Use Any Illicit Or Recreational Drugs? No [email or web address] Information not available 08/05/2022 How Many Years Have You Smoked Tobacco? 30 Years In The Past [email or web address] Information not available 08/05/2022 Sex: Male Functional Status Question Answer Note LastModified by Organizat ion Details LastModified Time What is your exercise level? Occasional [email or web address] Information not available 08/05/2022 Mental Status None recorded. Family History Relationship Description Onset Age of this Age Resolved Age Notes LastModified by Organization Details LastModified Time Mother Myocardial infarction dec [email or web address] Not available 08/05 13:03:49 Mother Kidney disease pt. added direct ly (06/21) [email or web address] Not available 06/21/2024 12:47:46 Father Alcoholism dec [email or web address] Not availabl e 12/21/2024 13:37:17 Brother Family history unknown [email or web address] Not available 2024 13:37:17 Sister Family history unknown [email or web address] Not available 2024 13:37:17 Sister Kidney disease pt. added direct ly (06/21) [email or web address] Not available 06/21/2024 12:47:46 Medical History Condition Response Deep Vein Thrombosis Y Obstructive Sleep Apnea Y Autoimmune disease Y High Cholesterol Y Ear or Hearing Problems Y Diabetes Y Hypertension Y Past Encounters Encounter ID Performer Location Encounter Start Date Encounter Closed Date Diagnosis/Indication Diagnosis SNOMED-CT Code Diagnosis ICD10 Code Diagnosis Note [id number] Nery Boston-Dariel in, HORSE STUD WORKER [facility] Infect[facility] Disease -[address] [place] [address] 12/21/2024 13:36:37 12/21/2024 13:51:52 Inactive tuberculosis 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 [...] 3 months. High risk medication monitoring indicated [id number] 5832994 Z76.89 Will check a CBC and hepatic function panel due to the buttermaker continuous churn use of Isoniazid. Will monitor weight regularly [...] - DOS PRIOR TO 2024 - HUMANA Yappn () Martin Lise [id number] Martin Lezama 12/21/2024 1 [place]ICARE[place] Martin Lezama [id number] Martin Lezama Notes Date Note Type Note [...] a week for prostate cancer. Nery Lee, HORSE STUD WORKER [address] , [place], [address], [facility] [place] [facility] [place] 12/21/2024 13:51:11
--- NOTE | 2025-01-12 11:15 | CT_ITS ---
FINAL REPORT TECHNIQUE: Axial images of the lumbar spine was performed with and without contrast. Sagittal and coronal reformatted images were obtained and reviewed. This study was performed with techniques to keep radiation doses as low as reasonably achievable, (ALARA). Individualized dose reduction techniques using automated exposure control or adjustment of mA and/or kV according to the patient's size were employed. CLINICAL HISTORY: prostate cancer, low back pain FINDINGS: There is abnormal compression deformity involving the superior endplate of L1 measuring 20 degrees. There is abnormal sclerosis at the inferior endplate of T12 and superior endplate of L1. Finding is best seen on image 37 of series 602. Findings new from prior dated 12/14/2024. Moderate anterior osteophyte formation is seen at L1-2 and L2-3. There is no significant disc bulge or protrusion. There are multiple rounded benign-appearing cysts in both kidneys. There is no evidence of abnormal contrast-enhancement. IMPRESSION: Interval progression of the compression deformity of L1, probably due to insufficiency fracture. MRI could better assess for marrow edema. Reviewed, Interpreted and Dictated by Marlo Rao MD Transcribed by Sofia Liz Authenticated and [facility]
[2025-01-12] MEDS: IOPAMIDOL-370 (76%);100ML BOTTLE 75 ML IV (11:45)
[2025-01-12] MEDS: SODIUM CHLORIDE 0.9% 10ML SYR (RAD ONLY) 10 ML IV (11:45)
== END 2025-01-12 23:59 | disposition home or self-care (01) ==
LOC: RAD 11:05
PROVIDERS: PCP Family Medicine; Visit Provider Family Medicine
DX: C61 Malignant neoplasm of prostate (principal); M54.50 Low back pain, unspecified
CPT/HCPCS: 72133; Q9967

== ENCOUNTER 2025-03-04 14:12 | Outpatient (POV) | payer MEDICARE, OTHER, SELFPAY ==
--- OUTSIDE RECORDS SUMMARY | 2025-03-04 14:17 | XMS_ITS | Clinical Summary ---
Author Organization [email or web address] [facility] Address [address] [place] [address] Care Team Providers Care Mobile Paramedical Examiner Name Role Phone Tristan Billings DO Primary Care Provider [phone] Allergies No known active allergies Medications glipiZIDE (GLUCOTROL) 5 MG tablet Take 1.5 tablets (7.5 mg total) by mouth every morning before breakfast. Active predniSONE (DELTASONE) 5 MG tablet Take 1 tablet (5 mg total) by mouth daily with breakfast Look-alike/S ound-alike medication. Active omeprazole (PriLOSEC) 20 MG capsule Take 1 capsule (20 mg total) by mouth daily. Active folic acid (FOLVITE) 1 MG tablet Take 1 tablet (1 mg total) by mouth daily. Active methotrexate 2.5 MG tablet Take 5 tablets (12.5 mg total) by mouth once a week. On Friday Active simvastatin (ZOCOR) 20 MG tablet Take 1 tablet (20 mg total) by mouth nightly. Active warfarin (COUMADIN) 4 MG tablet Take 1 tablet (4 mg total) by mouth daily Take with 0.5mg to equal 4.5mg daily . Active dapagliflozin propanediol (Farxiga) 10 mg tablet Take 1 tablet (10 mg total) by mouth daily. Active tamsulosin (FLOMAX) 0.4 mg cap 24 hr capsule Take 1 capsule (0.4 mg total) by mouth 2 (two) times daily. Active sildenafiL (VIAGRA) 100 MG tablet Take 1 tablet (100 mg total) by mouth daily as needed for erectile dysfunction. Active pyridoxine, vitamin B6, (vitamin B-6) 100 MG tablet Take 1 tablet (100 mg total) by mouth daily. Active isoniazid (NYDRAZID) 300 MG tablet Take 1 tablet (300 mg total) by mouth daily. Active oxybutynin (DITROPAN-XL) 5 MG 24 hr tablet Take 1 tablet (5 mg total) by mouth daily. Active warfarin (COUMADIN) 1 MG tablet Take 0.5 tablets (0.5 mg total) by mouth daily Take with 4mg to equal 4.5mg daily. Active Active Problems Problem Noted Date Diagnosed Date Urinary retention 08/10/2024 Family History Medical History Relation Name Comments Nephrolithiasis Brother Nephrolithiasis Mother Nephrolithiasis Sister Relation Name Status Comments Brother Mother Sister Social History Tobacco Use Types Packs/Day Years Used Date Smoking Tobacco: Never Smokeless Tobacco: Never Tobacco Cessation:Counseling Given: No Alcohol Use Standard Drinks/Week Comments Never 0 (1 standard drink = 0.6 oz pur e alcohol) Housing Stability Vital Sign Answer Charlie e Recorded In the last 12 months, was t here a time when you were not able to pay the mortgage or rent on time? No 08/14/2024 In the past 12 months, how m any times have you moved where you were living? 0 08/14/2024 At any time in the past 12 m [facility], were you homeless or living in a penitentiary (including now)? No 08/14/2024 Utilities Answer Date Recorded In the past 12 months, has t he electric, gas, oil, or water company threatened to shut off services in your home? No 08/10/2024 Interpersonal Safety Answer Date Record ed How often does anyone, [place] family and friends, physically hurt you? Never 08/10/2024 How often does anyone, [place] family and friends, insult or talk down to you? Never 08/10/2024 How often does anyone, [place] family and friends, threaten you with harm? Never 08/10/2024 How often does anyone, [place] family and friends, scream or curse at you? Never 08/10/2024 Housing Stability Answer Date Recorded What is your living situation today? I have a [facility] place to live 08/10/[address] you li ve. Do you have problems with any of the following? None of the above 08/10/2024 Food Insecurity Answer Date Recorded Within the past 12 months, y ou worried that your food would run out before you got money to buy more. Never true 08/10/2024 Within the past 12 months, t he food you bought just didn't last and you didn't have money to get more. Never true 08/10/2024 Transportation Needs Answer Date Record ed In the past 12 months, has l ack of reliable transportation kept you from medical appointments, meetings, work or from getting things needed for daily living? No 08/10/2024 Financial Resource Strain Answer Date R ecorded How hard is it for you to pa y for the very basics like food, housing, medical care, and heating? Would you say it is: Not hard at all 08/10/2024 Employment Answer Date Recorded Do you want help finding or keeping work or a job? I do not need or want help 08/10/2024 Family and Community Support Answer Charlie e Recorded If for any reason you need h elp with day-to-day activities such as bathing, preparing meals, shopping, managing finances, etc., do you get the help you need? I don't need any help 08/10/2024 Feeling Lonely or Isolated 0 08/10 Educational Attainment Answer Date Mendez rded Do you speak a language other than [place]an at [facility]? No 08/10/2024 Do you want help with school or training? For example, starting or completing job training or getting a high school diploma, GED or equivalent. No 08/10/2024 Physical Activity Answer Date Recorded Number of minutes of exercise per week 0 08/10/2024 Alcohol Use Answer Date Recorded 5 or More Drinks Per Day Past 12 Months 0 08/10/2024 Depression Answer Date Recorded Calculation of above two rows 0 Stress Answer Date Recorded Stress means a situation in which a person feels tense, restless, nervous, or anxious, or is unable to sleep at night because his or her mind is troubled all the time. Do you feel this kind of stress these days? Not at all 08/10/2024 Disabilities Answer Date Recorded Because of a physical, menta l, or emotional condition, do you have serious difficulty concentrating, remembering, or making decisions? (5 years or older) No 08/10/2024 Because of a physical, menta l, or emotional condition, do you have difficulty doing errands alone such as visiting a doctor's office or shopping? (15 years or older) No 08/10/2024 Substance Use Answer Date Recorded How many times in the past y ear have you used prescription drugs for non-medical reasons? Never 08/10/2024 How many times in the past year have you used [place] legal drugs? Never 08/10/2024 Sex and Gender Information Value Date Recorded Sex Assigned at Not on file Legal Sex Male 1:38 PM CDT Gender Identity Not on file Sexual Orientation Not on file Last Filed Vital Signs Vital Sign Reading Time Taken Comments Blood Pressure 136/75 08/15/2024 1:50 PM EST Pulse 60 08/15/2024 1:50 PM EST Temperature 36.8 C (98.3 F) 08/15/2024 1:50 PM EST Respiratory Rate 19 08/15/2024 1:50 PM EST Oxygen Saturation 95% 08/15/2024 1:50 PM EST Inhaled Oxygen Concentration - - Weight 86.2 kg (190 lb) 08/10/2024 4:17 PM EST Height 188 cm (6' 2 ) 08/10/2024 4:17 PM EST Body Mass Index 24.39 08/10/2024 4:17 PM EST Plan of Treatment Health Maintenance Due Date Last Done Comments Depression Screening (12+) 1959 Hepatitis C Screening 1965 DTAP/TDAP/TD VACCINES (1 - Tdap) 1966 Pneumococcal 50+ years (1 of 2 - PCV) 1966 Shingles Vaccine (Zoster) (1 of 2) 1966 Medicare Initial AWV [id number] 08/16/2013 COVID-19 VACCINE (3 - Moderna risk series) 12/20/2020 11/22/2020, 10/25/2020 Respiratory Syncytial Virus (RSV) Adult or (1 - 1-dose 75+ series) 2022 Falls Risk Screening 09/15/2024 Influenza Vaccine (Season Ended) 2025 06/26/20, 06/08/2020 Tobacco Cessation Counseling and Screening (12+) 08/10/2025 08/10/2024 Insurance MEDICARE PART A B FOR LIFE Advance Directives For more information, please contact: [phone] Documents on File Type Date Recorded Patient Link Trainer Maintenance Worker Expl anation Advance Directives and Living Will 08/10/2024 * Full Code (Latest Code Status on File) Date Activated Date Inactivated Comments 08/10/2024 2:42 PM 08/15/2024 4:37 PM Care Teams Mobile Paramedical Examiner Relationship Specialty Start Date End Date Tristan Billings DO PCP - General Internal Medicine 08/10/24
--- OUTSIDE RECORDS SUMMARY | 2025-03-04 14:17 | XMS_ITS | Continuity of Care Document ---
Author Organization [facility] Sarai santiago [facility] Address [address] [place] [address] Assessment No assessment recorded. Plan of Treatment Reminders Order Date Submit Date Provider Last Modified By Organization Details Last Modified Time Details Appointments RECHECK 2024 01:30P M ZORAIDA GARDNER MD Not available Not available Not available RECHECK 2024 01:30P M FADY LAMB MD Not available Not available Not available Lab urinalysi s panel, auto 2024 025 [email or web address] [facility], [address], [place], [address], 02/28/2025 14:44:08 PSA, serum or plasma 2024 025 [email or web address] [facility], [address], [address], [place], [address], 02/28/2025 14:44:08 Referral None recorded. Procedures None recorded. Surgeries None recorded. Imaging None recorded. Medication Orders None recorded. Patient TargetsNo targets recorded. Patient InstructionsNo instructions recorded. Reason for Referral None Reported. Results Created Date Observation Date Name Description Value Unit Range Abnormal Flag Note LastModifiedBy Organization Detail LastModifiedTime 02/29/2002/28/2025 urina lysis panel , auto Unknown Analyte Clean Catch Not Available [facility] [address], [place], [address], 02/28/2025 14:04:51 02/29/20 25 02/28/2025 urina lysis panel , auto Unknown Analyte Yellow Not Available [facility] [address], [place], [address], 02/28/2025 14:04:51 02/29/20 25 02/28/2025 urina lysis panel , auto Unknown Analyte Clear Not Available [facility] [address], [place], [address], 02/28/2025 14:04:51 02/29/20 25 02/28/2025 urina lysis panel , auto Unknown Analyte 1.020 Not Available [facility] [address], [place], [address], 02/28/2025 14:04:51 02/29/20 25 02/28/2025 urina lysis panel , auto Unknown Analyte 1.003 - 1.030 Not Available [facility] [address], [place], [address], 02/28/2025 14:04:51 02/29/20 25 02/28/2025 urina lysis panel , auto Unknown Analyte 5.0 Not Available [facility] [address], [place], [address], 02/28/2025 14:04:51 02/29/20 25 02/28/2025 urina lysis panel , auto Unknown Analyte 5.0 - 8.0 Not Available [facility] [address], [place], [address], 02/28/2025 14:04:51 02/29/20 25 02/28/2025 urina lysis panel , auto Unknown Analyte 75 Iveth/uL Not Available [facility] [address], [place], [address], 02/28/2025 14:04:51 02/29/20 25 02/28/2025 urina lysis panel , auto Unknown Analyte Negati ve Not Available [facility] [address], [place], [address], 02/28/2025 14:04:51 02/29/20 25 02/28/2025 urina lysis panel , auto Unknown Analyte Negati ve Not Available [facility] [address], [place], [address], 02/28/2025 14:04:51 02/29/20 25 02/28/2025 urina lysis panel , auto Unknown Analyte Negati ve Not Available [facility] [address], [place], [address], 02/28/2025 14:04:51 02/29/20 25 02/28/2025 urina lysis panel , auto Unknown Analyte Trace Not Available [facility] [address], [place], [address], 02/28/2025 14:04:51 02/29/20 25 02/28/2025 urina lysis panel , auto Unknown Analyte Negati ve Not Available [facility] [address], [place], [address], 02/28/2025 14:04:51 02/29/20 25 02/28/2025 urina lysis panel , auto Unknown Analyte >1000 mg/dL Not Available [facility] [address], [place], [address], 02/28/2025 14:04:51 02/29/20 25 02/28/2025 urina lysis panel , auto Unknown Analyte Normal Not Available [facility] [address], [place], [address], 02/28/2025 14:04:51 02/29/20 25 02/28/2025 urina lysis panel , auto Unknown Analyte Negati ve Not Available [facility] [place] [address], [place], [address], 02/28/2025 14:04:51 02/29/20 25 02/28/2025 urina lysis panel , auto Unknown Analyte Negati ve Not Available [facility] [address], [place], [address], 02/28/2025 14:04:51 02/29/20 25 02/28/2025 urina lysis panel , auto Unknown Analyte Normal Not Available [facility] [address], [place], [address], 02/28/2025 14:04:51 02/29/20 25 02/28/2025 urina lysis panel , auto Unknown Analyte Normal Not Available [facility] [address], [place], [address], 02/28/2025 14:04:51 02/29/20 25 02/28/2025 urina lysis panel , auto Unknown Analyte 1 mg/dL Not Available [facility] [address] [address], [place], [address], 02/28/2025 14:04:51 02/29/20 25 02/28/2025 urina lysis panel , auto Unknown Analyte Negati ve Not Available [facility] [address], [place], [address], 02/28/2025 14:04:51 02/29/20 25 02/28/2025 urina lysis panel , auto Unknown Analyte 50 Arslan/uL Not Available [facility] [address] [place] [address] [address], [place], [address], 02/28/2025 14:04:51 02/29/20 25 02/28/2025 urina lysis panel , auto Unknown Analyte Negati ve Not Available [facility] [address], [place], [address], 02/28/2025 14:04:51 Result Notes None recorded. Problems No Known Problems Procedures Surgical History Date Name Laterality Status Provider Name and Address Organization Details Recorded Time 02/29/20 Lupron Administration completed Harleen Stone [facility] 02/28/2025 14:50:38 09/03/20 24 Lupron Administration completed Sadia Senthil [facility] 09/03/2024 13:10:22 Vasectomy completed Sadia Ndiaye [facility] 05/19/2024 15:50:09 procedure on knee completed Sadia Ndiaye [facility] 05/19/2024 15:52:15 mechanical prosthetic aortic valve replacement completed Tammy Curtis [facility] 05/21/2024 09:02:43 Imaging Results None recorded. Procedure Notes None recorded. Medical Equipment None Reported. Allergies No known drug allergies Medications Name Sig Start Date Stop Date Status Note LastModified by Organization Details LastModified Time hydrocodone 5 mg-acetaminophe n 325 mg tablet Take 1 tablet every 6 hours by oral route. active Not Available Not Available No t Available sildenafil 100 mg tablet Take 1 tablet every day by oral route. active Not Available Not Available No t Available warfarin 4 mg tablet Take 1 tablet every day by oral route. active Not Available Not Available No t Available tamsulosin 0.4 mg capsule Take 1 capsule twice a day by oral route. 2023 active Not Available Not Available Not Avai lable simvastatin 20 mg tablet Take 1 tablet every day by oral route. active Not Available Not Available No t Available oxybutynin chloride ER 5 mg tablet,extended release 24 hr Take 1 tablet every day by oral route. 2023 active Not Available Not Available Not Avai lable omeprazole 20 mg capsule,delayed release Take 1 capsule every day by oral route. active Not Available Not Available No t Available folic acid 1 mg tablet Take 1 tablet every day by oral route. active Not Available Not Available No t Available hydrochlorothia zide 25 mg tablet Take 1 tablet every day by oral route. active Not Available Not Available No t Available levofloxacin 750 mg tablet Take 1 tablet every day by oral route. 2023 active Not Available Not Available Not Avai lable atenolol 50 mg tablet Take 1 tablet every day by oral route. active Not Available Not Available No t Available calcium active Not Available Not Avail able Not Available methocarbamol active Not Available Not Available Not Available prednisone active Not Available Not Av ailable Not Available lisinopril active Not Available Not Av ailable Not Available Lupron active Not Available Not Availa ble Not Available isoniazid active Not Available Not Ariadna ilable Not Available pyridoxine (bulk) active Not Available Not Available Not Available Orencia active Not Available Not Avail able Not Available methotrexate 2.5 mg tablet Take by oral route. active Not Available Not Available No t Available Farxiga 10 mg tablet Take 1 tablet every day by oral route. active Not Available Not Available No t Available glipizide 2.5 mg tablet Take 1 tablet every day by oral route. active Not Available Not Available No t Available Vitals Date Recorded Body height Body mass index (BMI) Body weight Provider Name and Address Organization Details Last Updated DateTime 02/28/2025 187.96 cm 23.8 kg/m2 16951.59 g Harleen Monroy [facility] 02/28/2025 14:14:02 Social History Question Answer Notes LastModified by [employer] Details LastModified Time Tobacco Smoking Status Former Smoker cigarettes Sadia Ndiaye kennedy [facility] 05/19/2024 15:49:08 When Did You Quit Smoking? 18+yearssin taco perez 1997 [email or web address] Information not available 05/19/2024 What Was The Date Of Your Most Recent Tobacco Screening? 02/28/2025 Information not available 02/28/2025 What Is Your Relationship Status? [email or web address] Information not available 05/19/2024 How Much Tobacco Do You Smoke? No [email or web address] Information not available 05/19/2024 Has Tobacco Cessation Counseling Been Provided? No [email or web address] Information not available 05/19/2024 Sex: Male Functional Status Question Answer Note LastModified by [employer] Details LastModified Time Do you use any illicit or recreational drugs? No [email or web address] Information not available 05/19/2024 Do you or have you ever used any other forms of tobacco or nicotine? No [email or web address] Information not available 05/19/2024 What is your level of alcohol consumption? None [email or web address] Information not available 05/19/2024 Are you currently employed? No retired [email or web address] Information not available 05/19/2024 Mental Status None recorded. Family History Nothing Reported. Medical History Condition Response Sleep Apnea Y Past Encounters Encounter ID Performer Location Encounter Start Date Encounter Closed Date Diagnosis/Indication Diagnosis SNOMED-CT Code Diagnosis ICD10 Code Diagnosis Note [id number] FADY LAMB MD [facility] [address] [place] [address] 02/28/2025 13:16:41 02/28/2025 14:52:53 History of malignant neoplasm of prostate 489696920 Z85.46 He received a 6-month Eligard injection today and we will see him back in 6 months with PSA Health Concerns Section Related Observation LastModified by Organization Detai ls LastModified Time None Recorded Concern Status LastModified by Organization Details LastModified Time None Recorded Payers Encounter Date Sequence Insurance Name Policy Number Policy Carroll Covered Member ID Carroll Member ID Guarantor Name 02/28/2025 1 [place]ARE-[place] (MEDICARE) Martin Lezama [id number] Martin Lezama 02/28/2025 2 FOR LIFE () Martin Lezama [id number] Martin Lezama Notes Date Note Type Note Provider Name and Address Organization Details Recorded Time 02/28/2025 text/html Patient is here in follow-up of radiation therapy for prostate cancer back in August. He remains on Lupron and had his first injection in August. He is due for an injection. PSA today was down to 0.53. Reports that he has compression fracture of his spine which looks to be unrelated to his history of prostate cancer. He has been having issues for couple months. He now seeing Dr. Pappas in [place] as his primary care. FADY LAMB MD [facility] [place], [address], [facility] 02/28/2025 17:48:31
--- OUTSIDE RECORDS SUMMARY | 2025-03-04 14:17 | XMS_ITS | Referral Summary ---
Author Organization [facility] [employer] Address [address] [place] [address] Care Team Providers Care Pest Control Worker Name Role Phone Tristan Billings DO Primary Care Provider [phone] Allergies No known active allergies Medications glipiZIDE [...] Noted Date Diagnosed Date Urinary retention 08/10/2024 Social History Tobacco Use Types Packs/Day Years [...] any time in the past 12 m [facility], were you homeless or living in a half-way (including now)? No 08/14/2024 Utilities Answer Date [...] living situation today? I have a [facility] place to live 08/10/2024 Think about the [...] Do you speak a language other than [place] at [facility]? No 08/10/2024 Do you want help with [...] Mass Index 24.39 08/10/2024 4:17 PM EST Functional Status * Are you deaf or do you have serious difficulty hearing? Answer Date of Assessment Author No 08/15/2024 2:51 PM Meaghan Sotelo RN * Are you blind or do you have serious difficulty seeing, even when wearing glasses? Answer Date of Assessment Author No 08/15/2024 2:51 PM Meaghan Sotelo RN * Do you have serious difficulty walking or climbing stairs? Answer Date of Assessment Author No 08/15/2024 2:51 PM Meaghan Sotelo RN * Do you have serious difficulty dressing or bathing? Answer Date of Assessment Author No 08/15/2024 2:51 PM Meaghan Sotelo RN * Because of a physical, mental, or emotional condition, do you have serious difficulty doing errandsalone such as visiting the doctor? Answer Date of Assessment Author No 08/15/2024 2:51 PM Meaghan Sotelo RN Mental Status * Because of a physical, mental, or emotional condition, do you have serious difficulty concentrating, remembering, or making decisions? (5 years old or older) Answer Entry Date Author No 08/15/2024 2:51 PM SNACK STEWARDESS Meaghan Campuzano RN Plan of Treatment Not on file Insurance MEDICARE PART A B Room n House Advance Directives For more information, please contact: [phone] Documents on File Type Date Recorded Patient Hat Blocking Operator Expl anation Advance Directives and Living Will 08/10/2024 * Full Code (Latest Code Status on File) Date Activated Date Inactivated Comments 08/10/2024 2:42 PM 08/15/2024 4:37 PM Care Teams Pest Control Worker Relationship Specialty Start Date End Date Tristan Billings DO PCP - General Internal Medicine 08/10/24
--- OUTSIDE RECORDS SUMMARY | 2025-03-04 14:17 | XMS_ITS | Data Portability ---
Author Organization [facility] Tipton Sarai santiago S [place] [facility] Address [address] [place] [address] Assessment Encounter Date Assessment Date Assessment LastModified by Organization Details LastModified Time 08/04/2024 08/04/2024 PREOPERATIVE DIAGNOSIS: Elevated PSA. POSTOPERATIVE DIAGNOSIS: Elevated PSA. PROCEDURE: MRI-directed transrectal ultrasound, needle biopsy of prostate. SURGEON: Cj Lamb MD ANESTHESIA: Local MAC. BRIEF HISTORY: The patient with slowly risen PSA. In the recent past, he has had aortic valve replacement and is on chronic anticoagulation therapy. With his cardiac history, I elected to follow him slowly. He does not have biopsy. His PSA a year ago was 11, but most recently had jumped up to 19.4. He was sent for an MRI of the prostate which showed an area of suspicion mid prostate on the right side and he presents today for transrectal ultrasound and needled biopsy of the prostate. He has been off his Coumadin and is bridged on Lovenox. His lowest dose was last evening. He has been on Levaquin as well. PROCEDURE NOTE: He was placed in the left lateral decubitus position. Probe was placed in the rectum. Volume was calculated to be 47 mL. Standard prostate block was performed with 10 mL of 1% Xylocaine bilaterally at the base of the prostate. He had somewhat of a mottled appearance on his ultrasound imaging, but no narciso lesions noted. Initially, the mid prostate on the right side was targeted and the area has 5/5 lesion on MRI. Three biopsies were taken through that area. We then sampled standard sextant biopsies, 3 medially and 3 laterally from each side of prostate. The patient tolerated the procedure well. There was no significant bleeding. API-51 Not available 08/05/2024 04:05:17 Plan of Treatment Reminders Order Date Submit Date Provider Last Modified By Organization Details Last Modified Time Details Appointments RECHECK 2024 01:30P M ZORAIDA GARDNER MD Not available Not available Not available RECHECK 2024 01:30P M CJ LAMB MD Not available Not available Not available Lab urinalysi s panel, auto [address] [facility], [address], [address], [place], [address], 02/28/2025 14:44:08 PSA, serum or plasma [address] [facility], [address], [address], [place], [address], 02/28/2025 14:44:08 urinalysi s panel, auto [address] [facility], [address], [address], [place], [address], 09/05/2024 22:40:08 Referral None recorded. Procedures None recorded. Surgeries None recorded. Imaging None recorded. Medication Orders levofloxa brittney 750 mg tablet 2023 024 [facility], [address] [place] [address] [address] [facility] [address], [place], [id number], 07/26/2024 13:18:08 oxybutyni n chloride ER 5 mg tablet,ex tended release 24 hr 2023 024 [facility], [address] [place] [address] [address], [place], [place], [id number], 07/26/2024 13:18:07 tamsulosi n 0.4 mg capsule 2023 024 [facility], [address] [facility], [place], [address], 07/25/2024 14:38:23 Patient TargetsNo targets recorded. Patient Instructions Encounter Date Encounter Id Patient Instructions Last Modified By Organization Details Last Modified Time 08/09/2024 [id number] learning about depression [email or web address] Not available 08/09/2024 21:12:50 Reason for Referral None Reported. Results Created Date Observation Date Name Description Value Unit Range Abnormal Flag Note LastModifiedBy Organization Detail LastModifiedTime 08/04/2008/04/2024 PROTH ROMBI N TIME prothrombin time 11.5 secon ds 9.2-11 .0 high Not Available [facility] [address] [place], [address], 08/04/2024 08:45:13 08/04/2008/04/2024 PROTH ROMBI N TIME INR 1.2 2.0-3. 0 low INR OF 2.0 TO 3.0 RECOM MARCK D FOR: PROPH YLAXI S AND TREAT MENT OF VENOU S THROM BOSIS TREAT MENT OF PULMO NARY EMBOL ISM PREVE NTION OF SYSTE DILAN EMBOL ISM TISSU E HEART VALVE S, VALVU LAR HEART DISEA SE ACUTE MYOCA RDIAL INFAR CTION , ATRIA L FIBRI LLATI ON INR OF 2.5 TO 3.5 RECOM MARCK D FOR: RECUR RENT SYSTE DILAN EMBOL ISM MECHA NICAL PROST HETIC VALVE S Not Available [facility] [address] [place], [address], 08/04/2024 08:45:13 08/04/2008/04/2024 SURGI [facility] surgical SEE BELOW abnormal Surgi laverne Patho logy Repor t NAME: ALVARO SHARIF RD PATH: [id number] DATE of : 09/02 7 Copy to: SUPPL EMMG AL SECTI ON A reque st for Genom ic prost ate score was recei ha 08-[address] Timot hy Adkin s. The test to be perfo rmed on tissu e from case [id number] 1. The case repor t, slide s, and block s for the cited acces vane were retri eved from archi ves. The case mater ials liste d below were prepa red and forwa rded to MDX where the molec ular test will be perfo rmed. Unsta ined slide s 0 Block (s) 1 The patho logis t whose signa ture appea rs below revie wed the origi nal patho logy repor t, exami doug the stacy date H and E slide s, and selec larisa the block B2 appro priat e to the speci ficat ions of the order ed molec ular fadia sis. The resul ts of this molec ular test will be inclu ded in the patie nt's medic al recor d when avail able. Pleas e refer to separ ate refer ence lab repor t. 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 - Tumor invol ves three cores out of about eight cores and fragm ents (80%, 20% and 5%). - Large cribr iform patte rn is prese nt. 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 - Grade group 5. - Tumor invol ves 6 out of 6 cores (100% , 90%, 90%, 80%, 10% and 5%). - Immun ostai ns: CD56: Negat alan Synap tophy sin: Negat alan TTF-1 : Parti ally posit alan PSA: Parti ally posit alan NKX3. 1: Stron gly posit alan C) Prost ate, area of inter est: - Prost atic adeno carci noma, Gleas on score 4+5 = 9 (70% grade 4 patte rn). - Grade group 5. - Tumor invol ves 2 out of 3 cores , 100%, and 95% disco ntigu ous. COMME NT: In areas of poorl y diffe renti ated tumor , the possi bilit y of neuro endoc rine carci noma of the prost ate was consi dered . Relat ively large nucle i and very large , promi nent nucle jelena favor high grade acina r adeno carci noma over small cell neuro endoc rine carci noma. Also, neuro endoc rine marke rs CD56 and synap tophy sin are negat alan, where as NKX3. 1, which tends to be negat alan in neuro endoc rine carci noma, is stron gly posit alan. TTF-1 and PSA show parti al stain ing, and do not furth er aid in this disti nctio n. SOURC E OF SPECI MEN: PROST ATE , LEFT PROST ATE , RIGHT PROST ATE , AREA OF INTER EST CLINI [facility] INFOR MATIO N: R97.2 0 Gross Descr iptio n: A) Kelly nt's name and date of verif ied. Recei ha in forma jan label ed with the patie nt's name and desig nated as left prost ate biops y are eight thin cores of merida-w andrew tissu e measu ring 0.2, 0.3, (2) 0.7, 1.3, 1.4, 1.5, and 1.8 cm in lengt h. Entir harpal submi tted in A1-A2 . B) Kelly nt's name and date of verif ied. Recei ha in forma jan label ed with the elianae nt's name and desig nated as righ t prost ate biops y are six thin cores of merida-w andrew tissu e measu ring 1.2, 1.6, (2) 1.7, 1.9, and 2.0 cm in lengt h. Entir harpal submi tted in B1-B2 . C) Elianae nt's name and date of verif ied. Recei ha in forma jan label ed with the patie nt's name and desig nated as area of inter est are three thin cores of merida-w andrew tissu e measu ring 1.0, and (2) 1.4 cm in lengt h. Entir harpal submi tted in C1. SB 08/04 03:57 PM Micro scopi c Descr iptio n: A micro scopi c exami natio n was perfo rmed on all speci mens. The right prost ate biops ies and the biops ies from the area of inter est conta in areas of tumor compo sed of solid sheet s and infil trati ng solid cords of large , highl y pleom orphi c tumor cells with crowd ed pleom orphi c nucle i and scant cytop lasm. Some of the tumor cells have vesic ular chrom atin and promi nent macro nucle jelena. Some of the tumor cells have dark chrom atin, incon spicu ous nucle jelena and nucle ar moldi ng. Multi ple immun ostai ns were perfo rmed to evalu ate for neuro endoc rine carci noma of the prost ate. All contr ols stain appro priat harpal. Resul ts are as indic ated in the diagn osis. SEAN LONG MD Jacinda d Out Date: 08/05 14:29 Page 1 of 1 Not Available [facility] [address] [place], [address], 08/10/2024 13:53:39 09/03/20 24 09/03/2024 urina lysis panel , auto Unknown Analyte Clean Catch Not Available [facility] [address], [place], [address], 09/03/2024 12:05:04 09/03/20 24 09/03/2024 urina lysis panel , auto Unknown Analyte Yellow Not Available [facility] [address], [place], [address], 09/03/2024 12:05:04 09/03/20 24 09/03/2024 urina lysis panel , auto Unknown Analyte Clear Not Available [facility] [address], [place], [address], 09/03/2024 12:05:04 09/03/20 24 09/03/2024 urina lysis panel , auto Unknown Analyte 1.015 Not Available [facility] [address], [place], [address], 09/03/2024 12:05:04 09/03/20 24 09/03/2024 urina lysis panel , auto Unknown Analyte 1.003- 1.035 Not Available [facility] [address], [place], [address], 09/03/2024 12:05:04 09/03/20 24 09/03/2024 urina lysis panel , auto Unknown Analyte 5.0 Not Available [facility] [address], [place], [address], 09/03/2024 12:05:04 09/03/20 24 09/03/2024 urina lysis panel , auto Unknown Analyte 5.0-8. 0 Not Available [facility] [address], [place], [address], 09/03/2024 12:05:04 09/03/20 24 09/03/2024 urina lysis panel , auto Unknown Analyte Negati ve Not Available [facility] [address], [place], [address], 09/03/2024 12:05:04 09/03/20 24 09/03/2024 urina lysis panel , auto Unknown Analyte Negati ve Not Available [facility] [address], [place], [address], 09/03/2024 12:05:04 09/03/20 24 09/03/2024 urina lysis panel , auto Unknown Analyte Negati ve Not Available [facility] [address], [place], [address], 09/03/2024 12:05:04 09/03/20 24 09/03/2024 urina lysis panel , auto Unknown Analyte Negati ve Not Available [facility] [address], [place], [address], 09/03/2024 12:05:04 09/03/20 24 09/03/2024 urina lysis panel , auto Unknown Analyte Negati ve Not Available [facility] [address], [place], [address], 09/03/2024 12:05:04 09/03/20 24 09/03/2024 urina lysis panel , auto Unknown Analyte Negati ve Not Available [facility] [address], [place], [address], 09/03/2024 12:05:04 09/03/20 24 09/03/2024 urina lysis panel , auto Unknown Analyte >1000 mg/dl Not Available [facility] [address], [place], [address], 09/03/2024 12:05:04 09/03/20 24 09/03/2024 urina lysis panel , auto Unknown Analyte Normal Not Available [facility] [address], [place], [address], 09/03/2024 12:05:04 09/03/20 24 09/03/2024 urina lysis panel , auto Unknown Analyte Negati ve Not Available [facility] [address], [place], [address], 09/03/2024 12:05:04 09/03/20 24 09/03/2024 urina lysis panel , auto Unknown Analyte Negati ve Not Available [facility] [address], [place], [address], 09/03/2024 12:05:04 09/03/20 24 09/03/2024 urina lysis panel , auto Unknown Analyte Normal Not Available [facility] [address], [place], [address], 09/03/2024 12:05:04 09/03/2009/03/2024 urina lysis panel , auto Unknown Analyte Normal 1 mg/dl Not Available [facility] [address], [place], [address], 09/03/2024 12:05:04 09/03/20 24 09/03/2024 urina lysis panel , auto Unknown Analyte Negati ve Not Available [facility] [address], [place], [address], 09/03/2024 12:05:04 09/03/20 24 09/03/2024 urina lysis panel , auto Unknown Analyte Negati ve Not Available [facility] [address], [place], [address], 09/03/2024 12:05:04 09/03/20 24 09/03/2024 urina lysis panel , auto Unknown Analyte 250 Arslan/ul Not Available [facility] [address], [place], [address], 09/03/2024 12:05:04 09/03/20 24 09/03/2024 urina lysis panel , auto Unknown Analyte Negati ve Not Available [facility] [address], [place], [address], 09/03/2024 12:05:04 02/29/20 25 02/28/2025 urina lysis panel , auto Unknown Analyte Clean Catch Not Available [facility] [address], [place], [address], 02/28/2025 14:04:51 02/29/20 25 02/28/2025 urina lysis panel , auto Unknown Analyte Yellow Not Available [facility] [address], [place], [address], 02/28/2025 14:04:51 02/29/20 25 02/28/2025 urina lysis panel , auto Unknown Analyte Clear Not Available [facility] [address], [place], [address], 02/28/2025 14:04:51 02/29/20 25 02/28/2025 urina lysis panel , auto Unknown Analyte 1.020 Not Available [facility] [address], [place], [address], 02/28/2025 14:04:51 02/29/20 25 02/28/2025 urina lysis panel , auto Unknown Analyte 1.003 - 1.030 Not Available [facility] [address], [place], [address], 02/28/2025 14:04:51 02/29/20 25 02/28/2025 urina lysis panel , auto Unknown Analyte 5.0 Not Available [facility] [address], [place], [address], 02/28/2025 14:04:51 02/29/20 25 02/28/2025 urina lysis panel , auto Unknown Analyte 5.0 - 8.0 Not Available [facility] [address], [place], [address], 02/28/2025 14:04:51 02/29/20 25 02/28/2025 urina lysis panel , auto Unknown Analyte 75 Iveth/uL Not Available [facility] [address], [place], [address], 02/28/2025 14:04:51 02/29/20 25 02/28/2025 urina lysis panel , auto Unknown Analyte Negati ve Not Available [facility] [address], [place], [address], 02/28/2025 14:04:51 02/29/20 25 02/28/2025 urina lysis panel , auto Unknown Analyte Negati ve Not Available [facility] [address], [place], [address], 02/28/2025 14:04:51 02/29/20 25 02/28/2025 urina lysis panel , auto Unknown Analyte Negati ve Not Available [facility] [address], [place], [address], 02/28/2025 14:04:51 02/29/20 25 02/28/2025 urina lysis panel , auto Unknown Analyte Trace Not Available [facility] [address], [place], [address], 02/28/2025 14:04:51 02/29/20 25 02/28/2025 urina lysis panel , auto Unknown Analyte Negati ve Not Available [facility] [address], [place], [address], 02/28/2025 14:04:51 02/29/20 25 02/28/2025 urina lysis panel , auto Unknown Analyte >1000 mg/dL Not Available [facility] [address], [place], [address], 02/28/2025 14:04:51 02/29/20 25 02/28/2025 urina lysis panel , auto Unknown Analyte Normal Not Available [facility] [address], [place], [address], 02/28/2025 14:04:51 02/29/20 25 02/28/2025 urina lysis panel , auto Unknown Analyte Negati ve Not Available [facility] [address], [place], [address], 02/28/2025 14:04:51 02/29/20 25 02/28/2025 urina lysis panel , auto Unknown Analyte Negati ve Not Available [facility] [address], [place], [address], 02/28/2025 14:04:51 02/29/20 25 02/28/2025 urina lysis panel , auto Unknown Analyte Normal Not Available [facility] [address], [place], [address], 02/28/2025 14:04:51 02/29/20 25 02/28/2025 urina lysis panel , auto Unknown Analyte Normal Not Available [facility] [address], [place], [address], 02/28/2025 14:04:51 02/29/20 25 02/28/2025 urina lysis panel , auto Unknown Analyte 1 mg/dL Not Available [facility] [address], [place], [address], 02/28/2025 14:04:51 02/29/20 25 02/28/2025 urina lysis panel , auto Unknown Analyte Negati ve Not Available [facility] [address], [place], [address], 02/28/2025 14:04:51 02/29/20 25 02/28/2025 urina lysis panel , auto Unknown Analyte 50 Arslan/uL Not Available [facility] [address], [place], [address], 02/28/2025 14:04:51 02/29/20 25 02/28/2025 urina lysis panel , auto Unknown Analyte Negati ve Not Available [facility] [address], [place], [address], 02/28/2025 14:04:51 06/22/20 24 06/22/2024 MRI, pelvi s, w/wo contr ast [facility] [address] [facility] [place] [address] Patien t Name: TRISHA Mireles OVERMA N Patien t : 1944 Patien t Orderi ng Provid er: MUNDO LAMB EXAM DATE: 2023 EXAM: MR PELVIS ATTN PROSTA TE W/WO CONTRA ST CLINIC AL INFORM ATION: Elevat ed PSA TECHNI QUE: A baseli ne serum creati nine with eGFR was obtain ed prior to inject ion of contra st medium due to the patien ts risk factor s for BRITTNEY. Calcul ated eGFR at time of exam was 70 Tripla srinivas T2, axial DWI, ADC map, axial T1 pre- and dynami c postco ntrast -enhan denise images as well as axial T1 fat-sa t imagin g was perfor med after inject ion of [address] (1 x 10 mL bottle of [facility] 17061- 325-02 ) IV. The patien t did not requir e sedati on for this exam. COMPAR SUSANA: None. FINDIN GS: PROSTA TE SIZE MEASUR EMENTS : Prosta te dimens ions = 5 x 3.9 x 4.7 cm (T x AP x CC). QUALIT Y: Good PERIPH ERAL ZONE: Overal l, periph eral zone is normal in size and backgr ound signal charac terist ics, No suspic ious focal lesion is seen. TRANSI TION ZONE: Multip le, well deline ated encaps ulated nodule s are seen consis tent with BPH. A suspic ious focal lesion is seen as decibe d below. PI-RAD S catego ry = 5/5 locate d in medial right transi tional zone at mid gland level. This is an amoeba form mass with multip le compon ents includ ing a compon ent extend ing to the student services vice president ior inferi or midlin e and likely crossi ng to the left side. Grossl y a conglo merate measur ement is 3 cm. Seen best in image 11-20 of series 8001, 7006, 7007, and image 149 of series 8000. It is positi ve on T2 WI, ADC, DWI and DCE images . CAPSUL E AND NEIGHB ORING STRUCT URES: No capsul ar invasi on is identi fied. Neuro- vascul ar bundle s are normal bilate rally. Semina l vesicl es are normal . PELVIC LYMPH NODES: No pelvic lympha denopa thy. PELVIC BONES: No suspic ious osseou s lesion is seen. IMPRES VANE: 1. Change s of BPH 2. PI-RAD S 5/5 amoeba form lesion involv ing the right transi tional zone. 3. Semina l vesicl es grossl y unrema rkable 4. No defini te indica tion of extrap rostat ic diseas e noted Interp reted By: Tristan Escalona MD Electr onical ly Signed By: Tristan Escalona MD on 024 2:28 PM [facility] [address] [place] [address], [place], [address], 07/23/2024 10:05:21 09/01/20 24 09/01/2024 PET-C T, skull base to mid-t high scan [address] [place] [address] Patien t Name: TRISHA Mireles OVERMA N Patien t : 1944 Patien t [...] the patien ts risk factor s for BRITTNEY. Calcul ated eGFR at time of exam was GFR =50 6.2 mCi Ga-68 [facility] ([facility] 93108- 100-64 ) was inject ed IV. After an uptake time of 76 minute s, vertex throug h midthi gh PET imagin g was perfor med. This was follow ed by a low dose attenu ation correc tion/a natomi c locali zation CT from vertex throug h the midthi gh levels . Urinar y tract was opacif ied with an inject ion of 50 mL Omnipa que 350 (1 x 50 ml bottle of [facility] 0407-1 414-89 ) admini stered 20 [...] thy. There is adenop athy in the internal communications manager al iliac region and along the margin [...] and pelvis bilate rally Interp reted By: Tristan Escalona MD Electr onical ly Signed By: Tristan Escalona MD on 2023 12:24 PM INTERFACE [facility] [address], [address], 09/01/2024 12:29:17 09/27/19 25 09/27/2024 MRI, pelvi s, w/o contr ast [place] [address] [facility] [place] [address] Patien t Name: TRISHA Mireles OVERMA N Patien t : 1944 Patien t [...] 43 throug h 64 of series # [id number]. SPACE- OAR HYDROG EL: No gel is [...] uncert ain signif icance Interp reted By: Tristan Escalona MD Electr onical ly Signed By: Tristan Escalona MD on 025 4:20 PM INTERFACE [facility] Radiology [facility] [address] [place] [address], [phone], 09/27/2024 16:25:25 Result Notes Documentation Provider Name and Address Organization Details Recorded Time Pet-ct, Skull Base To Mid-thigh Scan : [address] [address] Patient Name: MARTIN LEZAMA Patient : 1945 Patient Ordering Provider: ZORAIDA GARDNER EXAM DATE: 09/01/2024 EXAM: PET-CT PSMA SKULL MID THIGH INT ST CLINICAL INFORMATION: Prostate Cancer - Initial PROCEDURE: A baseline serum creatinine with eGFR was obtained prior to injection of contrast medium due to the patients risk factors for BRITTNEY. Calculated eGFR at time of exam was GFR =50 6.2 mCi Ga-68 PSMA ([facility] [address]20-985-48) was injected IV. After an uptake time of 76 minutes, vertex through midthigh PET imaging was performed. This was followed by a low dose attenuation correction/anatomic localization CT from vertex through the midthigh levels. Urinary tract was opacified with an injection of 50 mL Omnipaque 350 (1 x 50 ml bottle of [facility] 9233-3779-62) administered [address] scan. None was wasted and discarded. The patient did not require sedation for this exam. COMPARISON: None FINDINGS ON PET WITH CT CORRELATION: Normal expected uptake is seen in the lacrimal glands, salivary glands, sinonasal complex, liver, spleen, kidneys, small bowel and urinary bladder. Reference blood pool mean SUV = 1.2. Reference mean SUV of the liver = 3. Reference mean SUV of the parotid glands = 7.8. Prostate cancer specific areas of uptake are described below. PROSTATE/PROSTATIC BED: There is a PSMA PET avidly again involving the majority of the prostate, SUV is 40. ABDOMINAL AND PELVIC LYMPH NODES: Bilateral iliac lymphadenopathy. There is adenopathy in the internal iliac region and along the margins of the aortic bifurcation. Small retroperitoneal lymph nodes are also present. All these lymph nodes are psma elevated values ranging from 15-30. Lymph nodes. These territories range in size from 5 to 20 mm. DISTANT SPREAD: No lymphadenopathy in the mediastinal hilar regions. No adenopathy in the neck. No suspicious skeletal lesion or area of uabnormal skeletal uptake is seen. No suspicious pulmonary nodule or area of abnormal uptake is seen. ADDITIONAL FINDINGS ON CT: No significant additional finding is seen. COMBINED IMPRESSION: 1. PSMA PET avid mass involving the prostate compatible with malignancy 2. There is indication of psma avid adenopathy involving the abdomen and pelvis bilaterally Interpreted By: Tristan Escalona MD Not Available [facility] 09/01/2024 12:29:17 Mri, Pelvis, W/o Contrast : [place] [id number] Patient Name: MARTIN LEZAMA Patient : 1945 Patient Ordering Provider: ZORAIDA GARDNER EXAM DATE: 09/27/2024 EXAM: MR PROSTATE RADIATION PLAN WO CONTRAST CLINICAL INFORMATION: Bladder cancer TECHNIQUE: Biplanar T2, ax T2*, axial DWI, ADC map, axial T1 images as well as axial T1 fat-sat imaging was performed. The patient did not require sedation for this exam. COMPARISON: 06/22/2024 FINDINGS: QUALITY: Good PROSTATE SIZE MEASUREMENTS: Prostate dimensions = 5 x 4 x 5.2 cm (T x AP x CC). MARKERS: Markers are seen within the prostatic parenchyma in image # 43 through 64 of series # [id number]. SPACE-OAR HYDROGEL: No gel is present. FOCAL LESIONS: The study is not optimized for the detection of focal prostatic lesions. CAPSULE AND NEIGHBORING STRUCTURES: No capsular invasion is identified. Neuro-vascular bundles are normal bilaterally. Seminal vesicles are normal. PELVIC LYMPH NODES: 13 mm left obturator region noted. 10 mm right obturator region noted. These are very small although are indeterminate PELVIC BONES: No suspicious osseous lesion is seen. IMPRESSION: 1. Radiation therapy planning MR with marker and gel location as described above. 2. Very tiny obturator nodes are noted bilaterally of uncertain significance Interpreted By: Tristan Escalona MD Not Available [facility] 09/27/2024 16:25:25 Problems No Known Problems Procedures Surgical History Date Name Laterality Status Provider Name and Address Organization Details Recorded Time 02/29/20 25 Lupron Administration completed Harleen Monroy [facility] 02/28/2025 14:50:38 09/03/20 24 Lupron Administration completed Sadia Ndiaye [facility] 09/03/2024 13:10:22 Vasectomy completed Sadia Ndiaye [facility] 05/19/2024 15:50:09 procedure on knee completed Sadia Ndiaye [facility] 05/19/2024 15:52:15 mechanical prosthetic aortic valve replacement completed Tammy Curtis [facility] 05/21/2024 09:02:43 Imaging Results None recorded. [...] Updated DateTime 02/28/2025 187.96 cm 23.8 kg/m2 14982.59 g Harleenfavio Monroy [facility] 02/28/2025 14:14:02 Date Recorded Body height Body mass index (BMI) Body weight Provider Name and Address Organization Details Last Updated DateTime 07/23/2024 187.96 cm 24.4 kg/m2 57659.55 g Tammy Curtis [facility] 07/23/2024 12:18:57 Date Recorded Body height Body mass index (BMI) Body weight Provider Name and Address Organization Details Last Updated DateTime 08/09/2024 187.96 cm 24.4 kg/m2 20808.55 g Grazyna Terrazas [facility] 08/09/2024 14:37:05 Date Recorded Body height Body mass index (BMI) Body weight Provider Name and Address Organization Details Last Updated DateTime 09/03/2024 187.96 cm 24.4 kg/m2 83043.55 g Sadia Ndiaye [facility] 09/03/2024 13:09:35 Social History Question Answer Notes LastModified by Organizat ion Details LastModified Time Tobacco Smoking Status Former Smoker cigarettes Sadia Ndiaye [facility] 05/19/2024 15:49:08 When Did You Quit Smoking? 18+yearssin taco perez 1997 [email or web address] Information not available 05/19/2024 What Was The Date Of Your Most Recent Tobacco Screening? 02/28/2025 [email or web address] Information not available 02/28/2025 What Is Your Relationship Status? [email or web address] Information not available 05/19/2024 How Much Tobacco Do You Smoke? No [email or web address] Information not available 05/19/2024 Has Tobacco Cessation Counseling Been Provided? No [email or web address] Information not available 05/19/2024 Sex: Male Functional Status Question Answer Note LastModified by Organizat ion Details LastModified Time Do you use any illicit or recreational drugs? No [email or web address] Information not available 05/19/2024 Do you or have you ever used any other forms of tobacco or nicotine? No [email or web address] Information not available 05/19/2024 What is your level of alcohol consumption? None Information not available 05/19/2024 Are you currently employed? No retired Information not available 05/19/2024 Mental Status None recorded. Family History Nothing Reported. Medical History Condition Response Sleep Apnea Y Past Encounters Encounter ID Performer Location Encounter Start Date Encounter Closed Date Diagnosis/Indication Diagnosis SNOMED-CT Code Diagnosis ICD10 Code Diagnosis Note [id number] MD [facility] [address] 05/19/2024 13:25:43 05/21/2024 06:07:21 Prostate specific antigen above reference range [id number] R97.20 Considernandini g his medical history I suggest we arrange for an MRI of the prostate. We discussed that his PSA could be related to his steroid use but certainly has a large prostate which palpably is benign. The rate of increase is however concerning and we have discussed this. If he has suspicious lesions of the prostate we will consider a bridge on his warfarin and an MRI directed needle biopsy of the prostate Large prostate 610099224 N40.0 Continue tamsulosin [id number] MD [facility] [address] [address] [place] [address] 07/23/2024 11:25:17 07/23/2024 16:41:36 Prostate specific antigen above reference range 714590981 R97.20 We will arrange for MRI directed transrecta l ultrasound and needle biopsy of the prostate under sedation. Benign pro static hyperplasia with outflow obstruction 001526071 N40.1 Increased frequency of urination 327180109 R35.0 Trial of oxybutynin chloride [id number] CJ LAMB MD SURGERY SCHEDULE [address] [place] [address] 08/04/2024 08:27:28 08/04/2024 08:27:53 [id number] CJ LAMB MD [facility] [address] [place] [address] 08/09/2024 14:02:05 08/10/2024 04:08:34 Narciso hematuria 820009599 R31.0 He is encouraged to drink copious fluids. We discussed that he may have issues with hematuria for prolonged period of time considerin g his chronic anticoagul ation therapy. Retention of urine 33597 4002 R33.9 Voiding trial today Malignant neoplasm of prostate 828520530 C61 We will refer to radiation oncology. Will arrange for total body bone scan [id number] ZORAIDA GARDNER MD [facility] [place] [address] [place] [address] 08/17/2024 10:55:10 08/30/2024 12:23:43 [id number] CJ LAMB MD [facility] [address] [place] [address] 09/03/2024 11:13:19 09/03/2024 16:46:21 Malignant neoplasm of prostate 399492313 C61 Follow-up 6 months with PSA [id number] ZORAIDA GARDNER MD [facility] [place] [address] [place] [address] 09/17/2024 09:29:57 09/21/2024 10:50:56 [id number] CJ LAMB MD [facility] [address] [place] [address] 02/28/2025 13:16:41 02/28/2025 14:52:53 History of malignant neoplasm of prostate 768199844 Z85.46 He received a 6-month Eligard injection today and we will see him back in 6 months with PSA Health Concerns Section Related Observation LastModified by Organization Detai ls LastModified Time None Recorded Concern Status LastModified by Organization Details LastModified Time None Recorded Advance Directives Directive None Recorded Payers Insurance Date Sequence Insurance Name Policy Number Policy Carroll Covered Member ID Carroll Member ID Guarantor Name 02/25/2025 1 MEDICARE-[employer] (MEDICARE) Martin Lezama [id number] Martin Lezama 02/25/2025 2 FOR LIFE () Martin Lezama [id number] Martin Lezama Notes Date Note Type Note Provider Name and Address Organization Details Recorded Time 07/23/2024 text/html Patient is here in follow-up with his reporting rising PSA. He had a recent MRI of the prostate for rising PSA. He is also on chronic warfarin for her mechanical heart valve. He has some other cardiac issues and with been rather conservative regarding his rising PSA. On his MRI from June 22 he had a 5 of 5 lesion located medial right transition zone at the mid glans. There is 1 area of this seems to extend across midline towards the left. We discussed proceeding with transrectal ultrasound and needle biopsy of the prostate. We discussed potential issues with bleeding and infection. We discussed a bridge on Lovenox. Hopefully he can hold his warfarin for 5 days prior to his biopsy. He would like to have this done under sedation. He also needs refills of his tamsulosin which she takes twice daily. Additionally he still has issues with urinary frequency and urgency and we will add oxybutynin chloride 5 mg extended release. He will see his PCP and arrange for Lovenox bridge. I will send also a prescription for Levaquin to begin prior to his biopsy. CJ LAMB MD [address] [place] [address], [phone], [facility] 07/25/2024 14:39:29 08/09/2024 text/html Patient is here for Beltre catheter removal after urinary retention following transrectal ultrasound needle biopsy of the prostate 5 days ago. His PSA was 19. He is biopsy was complicated with hematuria. He had been on Lovenox switched off of his warfarin for 5 days prior. He unfortunately had significant hematuria after his biopsy. He had a Beltre catheter placed and has been to the emergency room at [facility] 3-4 different times for catheter irrigation. Currently is urine is grape juice colored and appears to be old blood. Unfortunately his biopsy has showed several cores positive for high-grade prostate cancer. He had Alliance score of 9(5+4) in the area of interest as well as several cores positive on the right side of the prostate. He had Erica score of 8 on the left side. We discussed that with his higher grade cancer that a bone scan would be indicated. He would be at high risk for surgical intervention considering his artificial aortic valve and chronic anticoagulation therapy. We discussed referral to radiation oncology. We also discussed briefly that hormonal therapy may also be indicated. Both his MRI and recent CT scan did not reveal any obvious disease outside the prostate. He had no gross clot in the bladder on CT scan at [facility] over the weekend. He is here today with his and daughter. We discussed his pathology. We will refer him to radiation oncology and arrange for a bone scan. His Beltre catheter was removed. He will contact me if he is having difficulty voiding. He currently is back on both warfarin and remaining on Lovenox as his INR was 1.2 earlier today CJ LAMB MD [address] [place] [address], [phone], [facility] 08/09/2024 21:13:11 09/03/2024 text/html Patient is here to start LHRH antagonist therapy in anticipation of external beam radiation therapy for prostate cancer. We discussed potential side effects and expectations. He received a 6-month. Lupron injection. CJ LAMB MD [address] [place] [address], [phone], [facility] 09/05/2024 22:40:50 02/28/2025 text/html Patient is here in follow-up [...] months. He now seeing Dr. Pappas in [place] as his primary care. CJ LAMB MD [address] [place], [phone], [facility] 02/28/2025 17:48:31
--- OUTSIDE RECORDS SUMMARY | 2025-03-04 14:17 | XMS_ITS | Data Portability ---
Author Organization [facility] & [facility] Address [address] [place] [id number] Care Team Providers Care Swimming Pool Installer Name Role Phone MAXIMILIAN TORRES Primary Care Provider AURELIA DEL CASTILLO Metal Leaf Layer FADY LAMB Urologist EMERY PIEDRA Slitter And Cutter Operator GAYLA SANCHEZ Primary Care Provider Assessment No assessment recorded. Plan of Treatment Reminders Order Date Submit Date Provider Last Modified By Organization Details Last Modified Time Details Appointments Establish ed Visit 15 min 2024 11:00A M Nery lin APRN Not available Not available Not available Lab CBC w/ auto diff 2024 025 [facility], [address], [place], [address], 12/21/2024 14:21:17 hepatic function panel, serum 2024 025 [email or web address], [address], [place], [address], 01/01/2025 19:55:37 CBC w/ auto diff 2024 025 [facility], [address], [place], [address], 10/21/2024 14:27:12 hepatic function panel, serum 2024 025 [email or web address], [address], [place], [address], 10/28/2024 13:17:52 CBC w/ auto diff 2023 024 [facility], [address], [place], [address], 08/20/2024 11:59:13 hepatic function panel, serum 2023 024 [facility], [address], [place], [address], 08/20/2024 11:55:46 CBC w/ auto diff 2023 [facility], [address], [place], [address], 07/23/2024 10:11:21 hepatic function panel, serum 2023 [facility], [address], [place], [address], 07/23/2024 10:49:19 Referral None recorded. Procedures None recorded. Surgeries None recorded. Imaging None recorded. Medication Orders isoniazid 300 mg tablet 2023 [facility], [address] [place] [address], [id number], 08/20/2024 10:48:31 isoniazid 300 mg tablet 2023 024 [facility], [address] [place] [address], [id number], 07/26/2024 13:18:07 pyridoxin e (vitamin B6) 100 mg tablet 2023 024 [facility], [address] [place] [address] [address] [place], [place], [id number], 07/23/2024 15:27:07 Patient TargetsNo targets recorded. Patient InstructionsNo instructions recorded. Reason for Referral None Reported. Results Created Date Observation Date Name Description Value Unit Range Abnormal Flag Note LastModifiedBy Organization Detail LastModifiedTime 07/23/20 24 07/23/2024 CBC AUTO W DIFF WBC 11.5 K/uL 4.0-10 .5 high Not Available [facility] ([employer]) [address] , [place], [address], 07/23/2024 10:11:21 07/23/20 24 07/23/2024 CBC AUTO W DIFF RBC 3.4 M/mm3 4.7-6. 1 low Not Available [facility] ([employer]) [address], [place], [address], 07/23/2024 10:11:21 07/23/20 24 07/23/2024 CBC AUTO W DIFF HGB 11.0 gm/dL 13.5-1 8.0 low Not Available [facility] ([employer]) [address] , [place], [address], 07/23/2024 10:11:21 07/23/20 24 07/23/2024 CBC AUTO W DIFF HCT 34.7 % 42.0-5 2.0 low Not Available [facility] ([employer]) [address] , [place], [address], 07/23/2024 10:11:21 07/23/20 24 07/23/2024 CBC AUTO W DIFF MCV 100.9 fL 78-100 high Not Available [facility] ([employer]) [address] [place], [address], 07/23/2024 10:11:21 07/23/20 24 07/23/2024 CBC AUTO W DIFF MCH 32.0 pg 27-31 high Not Available [facility] ([employer]) [address] [place], [address], 07/23/2024 10:11:21 07/23/20 24 07/23/2024 CBC AUTO W DIFF MCHC 31.7 g/dL 32-36 low Not Available [facility] ([employer]) [address] , [place], [address], 07/23/2024 10:11:21 07/23/20 24 07/23/2024 CBC AUTO W DIFF RDW 16.3 % 11.5-1 4.0 high Not Available [facility] ([employer]) [address] , [place], [address], 07/23/2024 10:11:21 07/23/20 24 07/23/2024 CBC AUTO W DIFF platelet count 310 K/uL 150-45 0 Not Available [facility] ([employer]) [address], [place], [address], 07/23/2024 10:11:21 07/23/20 24 07/23/2024 CBC AUTO W DIFF MPV 9.7 fL 6-9.5 high Not Available [facility] ([employer]) [address], [place], [address], 07/23/2024 10:11:21 07/23/20 24 07/23/2024 CBC AUTO W DIFF neutrophil% 80.6 % 43-65 high Not Available [facility] ([employer]) [address] , [place], [address], 07/23/2024 10:11:21 07/23/20 24 07/23/2024 CBC AUTO W DIFF lymphocyte% 10.4 % 20.5-4 5.5 low Not Available [facility] ([employer]) [address] [place], [address], 07/23/2024 10:11:21 07/23/20 24 07/23/2024 CBC AUTO W DIFF monocyte% 6.9 % 5.5-11 .7 Not Available [facility] ([employer]) [address], [place], [address], 07/23/2024 10:11:21 07/23/20 24 07/23/2024 CBC AUTO W DIFF eosinophil% 1.0 % 0.9-2. 9 Not Available [facility] ([employer]) [address], [place], [address], 07/23/2024 10:11:21 07/23/20 24 07/23/2024 CBC AUTO W DIFF basophil% 0.4 % 0.2-1. 0 Not Available [facility] ([employer]) [address], [place], [address], 07/23/2024 10:11:21 07/23/20 24 07/23/2024 CBC AUTO W DIFF immature granulocytes % 0.7 % 0.0-0. 8 Not Available [facility] ([employer]) [address], [place], [address], 07/23/2024 10:11:21 07/23/20 24 07/23/2024 CBC AUTO W DIFF nucleated red blood cells % 0.3 % Not Available [facility] ([employer]) [address], [place], [address], 07/23/2024 10:11:21 07/23/20 24 07/23/2024 CBC AUTO W DIFF neutrophil# 9.3 K/uL 2.2-4. 8 high Not Available [facility] ([employer]) [address] [place], [address], 07/23/2024 10:11:21 07/23/20 24 07/23/2024 CBC AUTO W DIFF lymphocyte# 1.2 cell/ mcL 1.3-2. 9 low Not Available [facility] ([employer]) [address] [place], [address], 07/23/2024 10:11:21 07/23/20 24 07/23/2024 CBC AUTO W DIFF monocyte# 0.8 cell/ mcL 0.3-0. 8 Not Available [facility] ([employer]) [address] , [place], [address], 07/23/2024 10:11:21 07/23/20 24 07/23/2024 CBC AUTO W DIFF eosinophil# 0.1 cell/ mcL 0-0.2 Not Available [facility] ([employer]) [address], [place], [address], 07/23/2024 10:11:21 07/23/20 24 07/23/2024 CBC AUTO W DIFF basophil# 0.1 cell/ mcL 0.0-1. 0 Not Available [facility] ([employer]) [address], [place], [address], 07/23/2024 10:11:21 07/23/20 24 07/23/2024 CBC AUTO W DIFF immature gramulocytes # 0.08 K/uL Not Available [facility] ([employer]) [address], [place], [address], 07/23/2024 10:11:21 07/23/20 24 07/23/2024 CBC AUTO W DIFF nucleated red blood cells # 0.03 K/uL Not Available [facility] ([employer]) [address], [place], [address], 07/23/2024 10:11:21 07/23/20 24 07/23/2024 CBC AUTO W DIFF manual differential NO Not Available [facility] ([employer]) [address], [place], [address], 07/23/2024 10:11:21 07/23/20 24 07/23/2024 HEPAT IC FUNCT IONAL PANEL total protein 7.3 g/dL 6.4-8. 2 Not Available [facility] ([employer]) [address], [place], [address], 07/23/2024 10:22:19 07/23/20 24 07/23/2024 HEPAT IC FUNCT IONAL PANEL albumin 3.6 g/dL 3.4-5. 0 Not Available [facility] ([employer]) [address], [place], [address], 07/23/2024 10:22:19 07/23/20 24 07/23/2024 HEPAT IC FUNCT IONAL PANEL bilirubin direct 0.1 O.oo-0 .30 Not Available [facility] ([employer]) [address], [place], [address], 07/23/2024 10:22:19 07/23/20 24 07/23/2024 HEPAT IC FUNCT IONAL PANEL bilirubin total 0.40 mg/dL 0.10-1 .00 Not Available [facility] ([employer]) [address], [place], [address], 07/23/2024 10:22:19 07/23/20 24 07/23/2024 HEPAT IC FUNCT IONAL PANEL bilirubin indirect 0.30 Not Available [facility] ([employer]) [address], [place], [address], 07/23/2024 10:22:19 07/23/20 24 07/23/2024 HEPAT IC FUNCT IONAL PANEL AST (SGOT) 17 U/L 0-37 Not Available [facility] ([employer]) [address], [place], [address], 07/23/2024 10:22:19 07/23/20 24 07/23/2024 HEPAT IC FUNCT IONAL PANEL ALT (SGPT) 45 U/L 0-65 Not Available [facility] ([employer]) [address], [place], [address], 07/23/2024 10:22:19 07/23/20 24 07/23/2024 HEPAT IC FUNCT IONAL PANEL alk phosphatase 49 U/L 46-116 Not Available [facility] ([employer]) [address], [place], [address], 07/23/2024 10:22:19 08/20/20 24 08/20/2024 HEPAT IC FUNCT IONAL PANEL total protein 7.4 g/dL 6.4-8. 2 Not Available [facility] ([employer]) [address], [place], [address], 08/20/2024 11:54:21 08/20/20 24 08/20/2024 HEPAT IC FUNCT IONAL PANEL albumin 4.1 g/dL 3.4-5. 0 Not Available [facility] ([employer]) [address] , [place], [address], 08/20/2024 11:54:21 08/20/20 24 08/20/2024 HEPAT IC FUNCT IONAL PANEL bilirubin direct 0.1 O.oo-0 .30 Not Available [facility] ([employer]) [address] , [place], [address], 08/20/2024 11:54:21 08/20/20 24 08/20/2024 HEPAT IC FUNCT IONAL PANEL bilirubin total 0.50 mg/dL 0.10-1 .00 Not Available [facility] ([employer]) [address] , [place], [address], 08/20/2024 11:54:21 08/20/20 24 08/20/2024 HEPAT IC FUNCT IONAL PANEL bilirubin indirect 0.40 Not Available [facility] ([employer]) [address] , [place], [address], 08/20/2024 11:54:21 08/20/20 24 08/20/2024 HEPAT IC FUNCT IONAL PANEL AST (SGOT) 20 U/L 0-37 Not Available [facility] ([employer]) [address], [place], [address], 08/20/2024 11:54:21 08/20/20 24 08/20/2024 HEPAT IC FUNCT IONAL PANEL ALT (SGPT) 64 U/L 0-65 Not Available [facility] ([employer]) [address], [place], [address], 08/20/2024 11:54:21 08/20/20 24 08/20/2024 HEPAT IC FUNCT IONAL PANEL alk phosphatase 53 U/L 46-116 Not Available [facility] ([employer]) [address], [place], [address], 08/20/2024 11:54:21 10/21/19 25 10/21/2024 HEPAT IC FUNCT IONAL PANEL total protein 6.9 g/dL 6.4-8. 2 Not Available [facility] ([employer]) [address] , [place], [address], 10/21/2024 11:57:13 10/21/19 25 10/21/2024 HEPAT IC FUNCT IONAL PANEL albumin 3.6 g/dL 3.4-5. 0 Not Available [facility] ([employer]) [address] , [place], [address], 10/21/2024 11:57:13 10/21/19 25 10/21/2024 HEPAT IC FUNCT IONAL PANEL bilirubin direct 0.2 O.oo-0 .30 Not Available [facility] ([employer]) [address] , [place], [address], 10/21/2024 11:57:13 10/21/19 25 10/21/2024 HEPAT IC FUNCT IONAL PANEL bilirubin total 0.50 mg/dL 0.10-1 .00 Not Available [facility] ([employer]) [address] [place], [address], 10/21/2024 11:57:13 10/21/19 25 10/21/2024 HEPAT IC FUNCT IONAL PANEL bilirubin indirect 0.30 Not Available [facility] ([employer]) [address] , [place], [address], 10/21/2024 11:57:13 10/21/19 25 10/21/2024 HEPAT IC FUNCT IONAL PANEL AST (SGOT) 23 U/L 0-37 Not Available [facility] ([employer]) [address] , [place], [address], 10/21/2024 11:57:13 10/21/19 25 10/21/2024 HEPAT IC FUNCT IONAL PANEL ALT (SGPT) 59 U/L 0-65 Not Available [facility] ([employer]) [address] , [place], [address], 10/21/2024 11:57:13 10/21/19 25 10/21/2024 HEPAT IC FUNCT IONAL PANEL alk phosphatase 55 U/L 46-116 Not Available [facility] ([employer]) [address] , [place], [address], 10/21/2024 11:57:13 10/21/19 25 10/21/2024 CBC AUTO W DIFF WBC 5.0 K/uL 4.0-10 .5 Not Available [facility] ([employer]) [address] , [place], [address], 10/21/2024 14:27:12 10/21/19 25 10/21/2024 CBC AUTO W DIFF RBC 3.6 M/mm3 4.7-6. 1 low Not Available [facility] ([employer]) [address] , [place], [address], 10/21/2024 14:27:12 10/21/19 25 10/21/2024 CBC AUTO W DIFF HGB 9.5 gm/dL 13.5-1 8.0 low Not Available [facility] ([employer]) [address], [place], [address], 10/21/2024 14:27:12 10/21/19 25 10/21/2024 CBC AUTO W DIFF HCT 32.8 % 42.0-5 2.0 low Not Available [facility] ([employer]) [address], [place], [address], 10/21/2024 14:27:12 10/21/19 25 10/21/2024 CBC AUTO W DIFF MCV 90.1 fL 78-100 Not Available [facility] ([employer]) [address] , [place], [address], 10/21/2024 14:27:12 10/21/19 25 10/21/2024 CBC AUTO W DIFF MCH 26.1 pg 27-31 low Not Available [facility] ([employer]) [address] , [place], [address], 10/21/2024 14:27:12 10/21/19 25 10/21/2024 CBC AUTO W DIFF MCHC 29.0 g/dL 32-36 low Not Available [facility] ([employer]) [address] , [place], [address], 10/21/2024 14:27:12 10/21/19 25 10/21/2024 CBC AUTO W DIFF RDW 19.9 % 11.5-1 4.0 high Not Available [facility] ([employer]) [address] [place], [address], 10/21/2024 14:27:12 10/21/19 25 10/21/2024 CBC AUTO W DIFF platelet count 237 K/uL 150-45 0 Not Available [facility] ([employer]) [address] [place], [address], 10/21/2024 14:27:12 10/21/19 25 10/21/2024 CBC AUTO W DIFF MPV 10.1 fL 6-9.5 high Not Available [facility] ([employer]) [address] [place], [address], 10/21/2024 14:27:12 10/21/19 25 10/21/2024 CBC AUTO W DIFF neutrophil% 87.2 % 43-65 high Not Available [facility] ([employer]) [address] [place], [address], 10/21/2024 14:27:12 10/21/19 25 10/21/2024 CBC AUTO W DIFF lymphocyte% 6.4 % 20.5-4 5.5 low Not Available [facility] ([employer]) [address] [place], [address], 10/21/2024 14:27:12 10/21/19 25 10/21/2024 CBC AUTO W DIFF monocyte% 4.6 % 5.5-11 .7 low Not Available [facility] ([employer]) [address] [place], [address], 10/21/2024 14:27:12 10/21/19 25 10/21/2024 CBC AUTO W DIFF eosinophil% 0.2 % 0.9-2. 9 low Not Available [facility] ([employer]) [address] [place], [address], 10/21/2024 14:27:12 10/21/19 25 10/21/2024 CBC AUTO W DIFF basophil% 0.6 % 0.2-1. 0 Not Available [facility] ([employer]) [address] [place], [address], 10/21/2024 14:27:12 10/21/19 25 10/21/2024 CBC AUTO W DIFF immature granulocytes % 1.0 % 0.0-0. 8 high Not Available [facility] ([employer]) [address] [place], [address], 10/21/2024 14:27:12 10/21/19 25 10/21/2024 CBC AUTO W DIFF nucleated red blood cells % 0.6 % Not Available [facility] ([employer]) [address], [place], [address], 10/21/2024 14:27:12 10/21/19 25 10/21/2024 CBC AUTO W DIFF neutrophil# 4.4 K/uL 2.2-4. 8 Not Available [facility] ([employer]) [address], [place], [address], 10/21/2024 14:27:12 10/21/19 25 10/21/2024 CBC AUTO W DIFF lymphocyte# 0.3 cell/ mcL 1.3-2. 9 low Not Available [facility] ([employer]) [address], [place], [address], 10/21/2024 14:27:12 10/21/19 25 10/21/2024 CBC AUTO W DIFF monocyte# 0.2 cell/ mcL 0.3-0. 8 low Not Available [facility] ([employer]) [address], [place], [address], 10/21/2024 14:27:12 10/21/19 25 10/21/2024 CBC AUTO W DIFF eosinophil# 0.0 cell/ mcL 0-0.2 Not Available [facility] ([employer]) [address], [place], [address], 10/21/2024 14:27:12 10/21/19 25 10/21/2024 CBC AUTO W DIFF basophil# 0.0 cell/ mcL 0.0-1. 0 Not Available [facility] ([employer]) [address], [place], [address], 10/21/2024 14:27:12 10/21/19 25 10/21/2024 CBC AUTO W DIFF immature gramulocytes # 0.05 K/uL Not Available [facility] ([employer]) [address], [place], [address], 10/21/2024 14:27:12 10/21/19 25 10/21/2024 CBC AUTO W DIFF nucleated red blood cells # 0.03 K/uL Not Available [facility] ([employer]) [address], [place], [address], 10/21/2024 14:27:12 10/21/19 25 10/21/2024 CBC AUTO W DIFF manual differential NO Not Available [facility] ([employer]) [address], [place], [address], 10/21/2024 14:27:12 10/21/19 25 10/21/2024 CBC AUTO W DIFF platelet estimate ADEQUA TE adequa te Not Available [facility] ([employer]) [address], [place], [address], 10/21/2024 14:27:12 10/21/19 25 10/21/2024 CBC AUTO W DIFF platelet morphology NORMAL normal Not Available [facility] ([employer]) [address], [place], [address], 10/21/2024 14:27:12 10/21/19 25 10/21/2024 CBC AUTO W DIFF RBC morphology NORMAL normal Not Available [facility] ([employer]) [address], [place], [address], 10/21/2024 14:27:12 10/21/19 25 10/21/2024 CBC AUTO W DIFF anisocytosis SLIGHT none seen Not Available [facility] ([employer]) [address], [place], [address], 10/21/2024 14:27:12 10/21/19 25 10/21/2024 CBC AUTO W DIFF poikilocytos is SLIGHT none seen Not Available [facility] ([employer]) [address], [place], [address], 10/21/2024 14:27:12 12/22/19 25 12/21/2024 CBC AUTO W DIFF WBC 6.1 K/uL 4.0-10 .5 Not Available [facility] ([employer]) [address], [place], [address], 12/21/2024 14:21:17 12/22/19 25 12/21/2024 CBC AUTO W DIFF RBC 3.6 M/mm3 4.7-6. 1 low Not Available [facility] ([employer]) [address] , [place], [address], 12/21/2024 14:21:17 12/22/19 25 12/21/2024 CBC AUTO W DIFF HGB 10.1 gm/dL 13.5-1 8.0 low Not Available [facility] ([employer]) [address], [place], [address], 12/21/2024 14:21:17 12/22/19 25 12/21/2024 CBC AUTO W DIFF HCT 33.0 % 42.0-5 2.0 low Not Available [facility] ([employer]) [address], [place], [address], 12/21/2024 14:21:17 12/22/19 25 12/21/2024 CBC AUTO W DIFF MCV 90.7 fL 78-100 Not Available [facility] ([employer]) [address] , [place], [address], 12/21/2024 14:21:17 12/22/19 25 12/21/2024 CBC AUTO W DIFF MCH 27.7 pg 27-31 Not Available [facility] ([employer]) [address], [place], [address], 12/21/2024 14:21:17 12/22/19 25 12/21/2024 CBC AUTO W DIFF MCHC 30.6 g/dL 32-36 low Not Available [facility] ([employer]) [address], [place], [address], 12/21/2024 14:21:17 12/22/19 25 12/21/2024 CBC AUTO W DIFF RDW 22.9 % 11.5-1 4.0 high Not Available [facility] ([employer]) [address], [place], [address], 12/21/2024 14:21:17 12/22/19 25 12/21/2024 CBC AUTO W DIFF platelet count 275 K/uL 150-45 0 Not Available [facility] ([employer]) [address], [place], [address], 12/21/2024 14:21:17 12/22/19 25 12/21/2024 CBC AUTO W DIFF MPV 9.1 fL 6-9.5 Not Available [facility] ([employer]) [address], [place], [address], 12/21/2024 14:21:17 12/22/19 25 12/21/2024 CBC AUTO W DIFF neutrophil% 80.2 % 43-65 high Not Available [facility] ([employer]) [address], [place], [address], 12/21/2024 14:21:17 12/22/19 25 12/21/2024 CBC AUTO W DIFF lymphocyte% 8.4 % 20.5-4 5.5 low Not Available [facility] ([employer]) [address] [place], [address], 12/21/2024 14:21:17 12/22/19 25 12/21/2024 CBC AUTO W DIFF monocyte% 9.4 % 5.5-11 .7 Not Available [facility] ([employer]) [address], [place], [address], 12/21/2024 14:21:17 12/22/19 25 12/21/2024 CBC AUTO W DIFF eosinophil% 1.0 % 0.9-2. 9 Not Available [facility] ([employer]) [address], [place], [address], 12/21/2024 14:21:17 12/22/19 25 12/21/2024 CBC AUTO W DIFF basophil% 0.5 % 0.2-1. 0 Not Available [facility] ([employer]) [address] [place], [address], 12/21/2024 14:21:17 12/22/19 25 12/21/2024 CBC AUTO W DIFF immature granulocytes % 0.5 % 0.0-0. 8 Not Available [facility] ([employer]) [address] [place], [address], 12/21/2024 14:21:17 12/22/19 25 12/21/2024 CBC AUTO W DIFF nucleated red blood cells % 0.0 % Not Available [facility] ([employer] [facility] [employer]) [address] [place], [address], 12/21/2024 14:21:17 12/22/19 25 12/21/2024 CBC AUTO W DIFF neutrophil# 4.9 K/uL 2.2-4. 8 high Not Available [facility] ([facility] [facility] [employer]) [address] [place], [address], 12/21/2024 14:21:17 12/22/19 25 12/21/2024 CBC AUTO W DIFF lymphocyte# 0.5 cell/ mcL 1.3-2. 9 low Not Available [facility] ([employer] [facility] [employer]) [address] , [place], [address], 12/21/2024 14:21:17 12/22/19 25 12/21/2024 CBC AUTO W DIFF monocyte# 0.6 cell/ mcL 0.3-0. 8 Not Available [facility] ([employer]) [address], [place], [address], 12/21/2024 14:21:17 12/22/19 25 12/21/2024 CBC AUTO W DIFF eosinophil# 0.1 cell/ mcL 0-0.2 Not Available [facility] ([facility]) [address], [place], [address], 12/21/2024 14:21:17 12/22/19 25 12/21/2024 CBC AUTO W DIFF basophil# 0.0 cell/ mcL 0.0-1. 0 Not Available [facility] ([facility] [facility] [employer]) [address], [place], [address], 12/21/2024 14:21:17 12/22/19 25 12/21/2024 CBC AUTO W DIFF immature gramulocytes # 0.03 K/uL Not Available [facility] ([employer] [facility] [employer]) [address], [place], [address], 12/21/2024 14:21:17 12/22/19 25 12/21/2024 CBC AUTO W DIFF nucleated red blood cells # 0.00 K/uL Not Available [facility] ([facility] [facility] [employer]) [address], [place], [address], 12/21/2024 14:21:17 12/22/19 25 12/21/2024 CBC AUTO W DIFF manual differential NO Not Available [facility] ([employer]) [address], [place], [address], 12/21/2024 14:21:17 12/22/19 25 12/21/2024 HEPAT IC FUNCT IONAL PANEL total protein 7.2 g/dL 6.4-8. 2 Not Available [facility] ([employer]) [address] , [place], [address], 12/21/2024 14:51:30 12/22/19 25 12/21/2024 HEPAT IC FUNCT IONAL PANEL albumin 4.1 g/dL 3.4-5. 0 Not Available [facility] ([employer]) [address] , [place], [address], 12/21/2024 14:51:30 12/22/19 25 12/21/2024 HEPAT IC FUNCT IONAL PANEL bilirubin direct 0.0 O.oo-0 .30 Not Available [facility] ([employer]) [address] , [place], [address], 12/21/2024 14:51:30 12/22/19 25 12/21/2024 HEPAT IC FUNCT IONAL PANEL bilirubin total 0.40 mg/dL 0.10-1 .00 Not Available [facility] ([employer]) [address], [place], [address], 12/21/2024 14:51:30 12/22/19 25 12/21/2024 HEPAT IC FUNCT IONAL PANEL bilirubin indirect 0.40 Not Available [facility] ([employer]) [address] , [place], [address], 12/21/2024 14:51:30 12/22/19 25 12/21/2024 HEPAT IC FUNCT IONAL PANEL AST (SGOT) 32 U/L 0-37 Not Available [facility] ([employer]) [address] , [place], [address], 12/21/2024 14:51:30 12/22/19 25 12/21/2024 HEPAT IC FUNCT IONAL PANEL ALT (SGPT) 50 U/L 0-65 Not Available [facility] ([employer]) [address], [place], [address], 12/21/2024 14:51:30 12/22/19 25 12/21/2024 HEPAT IC FUNCT IONAL PANEL alk phosphatase 122 U/L 46-116 high Not Available [facility] ([employer]) [address], [place], [address], 12/21/2024 14:51:30 06/11/20 24 05/03/2024 XR, chest , 2 view No observ ation record ed. [address], [place], [address], 08/09/2024 12:45:51 Result Notes None recorded. 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 Procedures Surgical History Date Name Laterality Status Provider Name and Address Organization Details Recorded Time 09/15/18 98 Cardiovascular Surgery completed Ben BEVERLY - [facility] [place] [facility] [place] 08/05/2022 13:01:39 09/15/18 98 Other completed Ben BEVERLY - [facility] - [place] [facility] [place] 08/05/2022 13:01:39 procedure on knee completed Ben BEVERLY - [facility] & [place] 08/05/2022 13:05:30 Imaging Results None recorded. Procedure [...] No t Available isoniazid 300 mg tablet Take 1 tablet every day by oral route as directed. 2024 active Not Available Not Available Not Avai lable hydrocodone -homatropin e 5 mg-1.5 mg tablet [...] Details Last Updated DateTime 5 187.96 cm 26.1 kg/m2 28501.2 5 g 98.2 [degF] 67 /min 92 % 92 % 94 mm[Hg] 59 mm[Hg] Preeti Guevarapppankaj BEVERLY - [facility] & [place] 5 10:40:12 Date Recorded Body height Heart rate Oxygen saturation Oxygen saturation in Arterial blood by Pulse oximetry Heart rate Body temperature Body mass index (BMI) Body weight Systolic blood pressure Diastolic blood pressure Provider Name and Address Organization Details Last Updated DateTime 5 187.96 cm 79 /min 94 % 94 % 79 /min 98 [degF] 25.5 kg/m2 09560.8 8 g 122 mm[Hg] 67 mm[Hg] Tammy Theodore RUSH - [facility] & [place] 5 13:43:20 Date Recorded Body height Heart rate Oxygen saturation Oxygen saturation in Arterial blood by Pulse oximetry Body temperature Body mass index (BMI) Body weight Systolic blood pressure Diastolic blood pressure Provider Name and Address Organization Details Last Updated DateTime 4 187.96 cm 54 /min 97 % 97 % 96.6 [degF] 24.9 kg/m2 80297.9 2 g 120 mm[Hg] 82 mm[Hg] Comfort BEVERLY - [facility] & [place] 4 10:13:15 Date Recorded Body height Oxygen saturation Oxygen saturation in Arterial blood by Pulse oximetry Heart rate Systolic blood pressure Diastolic blood pressure Provider Name and Address Organization Details Last Updated DateTime 4 187.96 cm 91 % 91 % 56 /min 133 mm[Hg] 74 mm[Hg] Preeti Guevarapppankaj BEVERLY [facility] & [place] 4 09:22:06 Date Recorded Body height Body mass index (BMI) Body weight Body temperature Heart rate Oxygen saturation Oxygen saturation in Arterial blood by Pulse oximetry Systolic blood pressure Diastolic blood pressure Provider Name and Address Organization Details Last Updated DateTime 4 187.96 cm 25.3 kg/m2 52568.7 g 96.7 [degF] 66 /min 93 % 93 % 130 mm[Hg] 70 mm[Hg] Preeti Winchester [facility] & [place] 10:33:55 Social History Question Answer Notes LastModified by Organizat ion Details LastModified Time Tobacco Smoking Status Former Smoker Ben benavides, RUSH Torres [facility] & [place] 08/05/2022 13:01:35 Do You Have An Advance Directive? Yes [email or web address] Information not available 08/05/2022 Are You Blind Or Do You Have Difficulty Seeing? No [email or web address] Information not available 08/05/2022 What Was The Date Of Your Most Recent Tobacco Screening? 06/21/2024 [email or web address] Information not available 06/24/2024 Are You Passively Exposed To Smoke? No [email or web address] Information not available 08/05/2022 How Much Tobacco Do You Smoke? No [email or web address] Information not available 08/05/2022 How Many Years Have You Smoked Tobacco? 30 Years In The Past [email or web address] Information not available 08/05/2022 Sex: Male Functional Status Question Answer Note LastModified by Organizat ion Details LastModified Time Do you use any illicit or recreational drugs? No Information not available 08/05/2022 What is your level of alcohol consumption? None Information not available 08/05/2022 Do you or have you ever used smokeless tobacco? Never used smokeless tobacco [email or web address] Information not available 08/05/2022 What is your exercise level? Occasional [email or web address] Information not available 08/05/2022 Mental Status Question Answer Note LastModified by Organization D etails LastModified Time Do you feel stressed (tense, restless, nervous, or anxious, or unable to sleep at night)? [id number] [email or web address] Information not available 08/05/2022 Family History Relationship Description Onset Age of this Age Resolved Age Notes LastModified by Organization Details LastModified Time Mother Myocardial infarction dec [email or web address] Not available 08/05 13:03:49 Mother Kidney disease [...] SNOMED-CT Code Diagnosis ICD10 Code Diagnosis Note [id number] Sanket Schaeffer Jr, MD [facility] [address] [place], [place] [address] [phone] 08/05/2022 12:30:55 08/05/2022 13:26:38 Benign prostatic hyperplasia with outflow obstruction 864763154 N40.1 Patient with lower urinary tract symptoms due to BPH. He is doing well on the tamsulosin and is to continue. Erectile dysfunction 860 617086 F52.21 patient with history of erectile dysfunctio n. He states he does well with the sildenafil 100 mg p.r.n.. [id number] Sanket Schaeffer Jr, MD [facility] [address] [place], [place] [address] [phone] 02/06/2023 13:40:33 02/06/2023 14:19:48 Prostate specific antigen above reference range 241415089 R97.20 Patient with history of elevated PSA. His recent PSA 2 weeks ago was 9.6 and stable from previous PSAs. We discussed options including continued watchful waiting and close monitoring versus prostate biopsy. Patient is comfortabl e with watchful waiting and we will see him back in 6 months with a free and total PSA. Lower urin matty tract symptoms due to benign prostatic hypertrophy 0120783772 9101 N40.1 patient with history of BPH. He is voiding well on the tamsulosin and is to continue. Erectile dysfunction 860 618352 F52.21 patient with history of erectile dysfunctio n. He states he does well with the sildenafil 100 mg p.r.n.. [id number] Sanket Schaeffer Jr, MD [facility] [address] [address] 08/13/2023 08:41:10 08/13/2023 09:26:44 Prostate specific antigen above reference range 971861178 R97.20 Patient with history of elevated PSA. His recent PSA 2 weeks ago Was 11.5. This is we will higher than his previous of 9.6. It has been as high as 10.1 in the past. We again discussed prostate biopsy versus monitoring and he wishes to continue monitoring . Lower urin matty tract symptoms due to benign prostatic hypertrophy 4887311354 9101 N40.1 patient with history of BPH. patient states some increased hesitancy, frequency and nocturia. His bladder scan today is 0. His IPSS is 30 which is a bit surprising given his residual. We discussed increasing the tamsulosin to 0.8 a day. We also discussed workup with cystoscopy and possible UroLift or TURP but he does not want proceed in that direction at this time. Erectile dysfunction 860 668672 F52.21 patient with history of erectile dysfunctio n. He states he does well with the sildenafil 100 mg p.r.n.. We have discussed not taking the sildenafil within 4 hours of the Flomax. [id number] Sanket Schaeffer Jr, MD [facility] [address] [phone] 02/13/2024 09:03:41 02/13/2024 09:40:36 Prostate specific antigen above reference range 165759689 R97.20 Patient with history of elevated PSA. His recent PSA 2 weeks ago Was 19.4 This is we will higher than his previous of 13.4 And it continues to trend upwards.He does have a very large prostate which could be a cause for the elevated PSA as well. We again discussed prostate biopsy today but he remains reluctant. He will think about it. Repeat PSA in 3 months if he does not elect to proceed with biopsy. Lower urin matty tract symptoms due to benign prostatic hypertrophy [id number] 9101 N40.1 patient with history of BPH. patient states some increased frequency and nocturia. patient has not improved in the past with increasing his tamsulosin 2 a day or with oxybutynin . He complains of decreased flow. We would discussed other options but they require surgical procedures as well. [id number] Sanket Schaeffer Jr, MD [facility] [address] [address] 11/12/2023 09:13:53 11/12/2023 10:07:59 Lower urinary tract symptoms due to benign prostatic hypertrophy 0842707568 9101 N40.1 patient with history of BPH. patient states some increased frequency and nocturia. His bladder scan today is 54. His IPSS At last visit was 30 which is a bit surprising given his residual. We increased the tamsulosin to 0.8 a day. patient's symptoms seemed to be more irritable an obstructin g. We will add oxybutynin to his Flomax. Prostate s pecific antigen above reference range 188624175 R97.20 Patient with history of elevated PSA. His recent PSA 2 weeks ago Was 13.4 This is we will higher than his previous of 11.5. he is becoming more interested in possible biopsy. He does have a very large prostate which could be a cause for the elevated PSA as well. We will treat his urinary symptoms and repeat his PSA in 3 months. Erectile dysfunction 860 933105 F52.21 patient with history of erectile dysfunctio n. He states he does well with the sildenafil 100 mg p.r.n.. We have discussed not taking the sildenafil within 4 hours of the Flomax. [id number] [facility] [address] [facility] [address] [place] [address] 06/24/2024 09:55:04 06/24/2024 10:30:41 Inactive tuberculosis 52914898 Z22.7 History of being in the . Patient is negative for any pulmonary symptoms. Chest xray normal. Patient is on suppressiv e medication s for PMR. Patient takes Warfarin due to his mechanical heart valve. Will start Isoniazid and Vitamin B6. Will see patient back in 1 month. Plan will be to complete a 9 month regimen. All questions answered. [id number] [facility] [facility] [address] [place] [address] 07/23/2024 09:14:15 07/23/2024 09:34:06 Inactive tuberculosis 17571045 Z22.7 History of being in the . Patient is negative for any pulmonary symptoms. Chest xray normal. Patient is on suppressiv e medication s for PMR. Patient takes Warfarin due to his mechanical heart valve. Patient has been on Isoniazid and Vitamin B6 for the last month. Will check a CBC and hepatic function panel today.Will see patient back in 1 month. 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 Will monitor weight regularly and check for adverse effects. [id number] [facility] [facility] [address] [place] [address] 08/20/2024 10:25:17 08/20/2024 10:44:10 Inactive tuberculosis 52299432 Z22.7 History of being in the . Patient is negative for any pulmonary symptoms. Chest xray normal. Patient is on suppressiv e medication s for PMR. Patient takes Warfarin due to his mechanical heart valve. Patient has been on Isoniazid and Vitamin B6 for the last 2 months. Will check a CBC and hepatic function panel today. Patient ordered his own Vitamin B6 OTC and will take 100mg daily with treatment. Will see patient back in 1 month. High risk medication monitoring indicated [id number] 3993668 Z76.89 Will check a CBC and hepatic function panel due to the [facility] use of Isoniazid. Will monitor weight regularly and check for adverse effects. [id number] [facility] [facility] [address] [place] [address] 10/21/2024 10:32:10 10/21/2024 10:47:20 Inactive tuberculosis 66048101 Z22.7 History of being in the . Patient is negative for any pulmonary symptoms. Chest xray normal. Patient is on suppressiv e medication s for PMR. Patient takes Warfarin due to his mechanical heart valve. Patient has been on Isoniazid and Vitamin B6 for the last 4months. Will check a CBC and hepatic function panel today. Patient ordered his own Vitamin B6 OTC and will take 100mg daily with treatment. Patient is currently getting radiation for prostate cancer daily 5 days a week. Duration for the next 7 weeks .Will see patient back in 2 months. 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 Will monitor weight regularly and check for adverse effects. [id number] Nery Carreon in, [employer] [facility] Infectiou s Disease -[address] [facility] [address] [place] [address] 12/21/2024 13:36:37 12/21/2024 13:51:52 Inactive tuberculosis 71494616 Z22.7 History of being in the . [...] 3 months. High risk medication monitoring indicated [id number] Z76.89 Will check a CBC and hepatic function panel due to the [facility] use of Isoniazid. Will monitor weight regularly and check for adverse effects. Health Concerns Section Related Observation LastModified by Organization Detai ls LastModified Time None Recorded Concern Status LastModified by Organization Details LastModified Time None Recorded Advance Directives Directive Y: Payers Insurance Date Sequence Insurance Name Policy Number Policy Carroll Covered Member ID Carroll Member ID Guarantor Name 08/05/2022 1 *SELF PAY* Xu Lezama 12/22/2024 2 [facility] () Martin Lezama [id number] Martin Lezama 12/18/2024 1 [place] Martin Lezama [id number] Martin Lezama Notes Date Note Type Note Provider Name and Address Organization Details Recorded Time 06/24/2024 text/html patient presents to clinic for a positive quantiferon TB test. 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 Patient denies any pulmonary symptoms. Patient was recently diagnosed with polymyalgia rheumatica and is on suppressive therapy. He is currently taking Prednisone and Methotrexate. Patient also has a mechanical heart valve is on Warfarin therapy. Patient checks his INR levels and adjusts coumadin dose at home. 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 Patient has been taking Isoniazid and Vitamin B6 for the last month. Patient is tolerating. He denies any nausea/vomiting/di arrhea. Patient is chronically on prednisone and his bilateral hands are swollen. He states that his PCP has diagnosed him with RA versus PMR. He states that his medication regimen has been reduced. He is on Methotrexate and Prednisone. He will follow up with her at the beginning of August. His weight is stable. Vitals stable. He denies any respiratory symptoms. Denies any fevers. Nery Lee APRN [address], [place], [address], [facility] & [place] 07/23/2024 09:37:00 08/20/2024 text/html patient presents to clinic for follow up on latent TB. Patient has been taking Isoniazid and Vitamin B6 for the last 2 months. Patient is tolerating. He denies any nausea/vomiting/di arrhea. Patient is chronically on prednisone and his bilateral hands are swollen. His weight is stable. Vitals stable. He denies any respiratory symptoms. Denies any fevers. Patient was just diagnosed with prostate cancer. He is scheduled for a PET scan on September 01, 2024. He will start radiation treatment. Nery Lee APRN [address], [place], [address], [facility] 08/20/2024 10:49:26 10/21/2024 text/html patient presents to clinic for follow up on latent TB. Patient has been taking Isoniazid and Vitamin B6 for the last 4 months. Patient is tolerating. He denies any nausea/vomiting/di arrhea. Patient is chronically on prednisone and his bilateral hands are swollen. His weight is stable. Vitals stable. He denies any respiratory symptoms. Denies any fevers. Denies any parasthesia. He is currently having radiation therapy 5 days a week for prostate cancer. Nery Lee APRN [address], [place], [address], [facility] & [place] 10/21/2024 11:35:54 12/21/2024 text/html patient presents to clinic for follow up on latent TB. Patient has been taking Isoniazid and Vitamin B6 for the last 6 months. Patient is tolerating. He denies any nausea/vomiting/di arrhea. Patient is chronically on prednisone and his bilateral hands are swollen. His weight is stable. Vitals stable. He denies any respiratory symptoms. Denies any fevers. Denies any parasthesia. He is currently having radiation therapy 5 days a week for prostate cancer. Nery Lee, JANET [address], [place], [address], [place] - [facility] & [place] 12/21/2024 13:51:11
--- OUTSIDE RECORDS SUMMARY | 2025-03-04 14:18 | XMS_ITS | Clinical Summary ---
Author Organization [facility] Address [address] [place] [address] Care Team Providers Care Tube Tester Name Role Phone ManuelitoTristan Primary Care Provider Allergies Active Allergy Reactions Criticality Noted Date Comments Promethazine Unknown - Patient st ates they do not know rxn details Low 07/24/2010 Makes me loopy Medications glipiZIDE (Glucotrol) 5 MG tablet Take 1.5 tablets (7.5 mg) by mouth 1 (one) time each day. Active hydroCHLOROthia zide (HYDRODiuril) 25 MG tablet 10/23/2023 Active atenolol (Tenormin) 50 MG tablet 01/12/2024 Active simvastatin (Zocor) 20 MG tablet 01/12/2024 Active warfarin (Coumadin) 1 MG tablet Take 0.5 tablets (0.5 mg) by mouth 1 (one) time each day. Active warfarin (Coumadin) 4 MG tablet Take 1 tablet (4 mg) by mouth 1 (one) time each day. 03/29/2024 Active dapagliflozin (Farxiga) 10 MG tablet Take 1 tablet (10 mg) by mouth 1 (one) time each day. Active predniSONE (Deltasone) 5 MG tablet Take 1 tablet (5 mg) by mouth. Active omeprazole (PriLOSEC) [address] capsule Take 1 capsule (20 mg) by mouth 1 (one) time each day. Active tamsulosin (Flomax) 0.4 MG 24 hr capsule Take 1 capsule (0.4 mg) by mouth twice a day. Active oxybutynin XL (Ditropan-XL) 10 MG 24 hr tablet TAKE ONE TABLET BY MOUTH EVERY DAY FOR urine urgency 08/17/2024 Active sildenafil (Viagra) 100 MG tablet Take 1 tablet (100 mg) by mouth. Active pyridoxine (B-6) 100 MG tablet Take 1 tablet (100 mg) by mouth 1 (one) time each day. Active isoniazid (Nydrazid) 300 MG tablet Take 1 tablet (300 mg) by mouth 1 (one) time each day. Active Active Problems Problem Noted Date Diagnosed Date Malignant neoplasm of prostate 09/13/2024 Cancer Staging:Clinical:Stage IVB(cTX, pM1a, PSA: 11, Grade Group: 4) - Signed by Justen Jaimes MD on 09/13/2024 Resolved Problems Problem Noted Date Diagnosed Date Resolved Date Neutropenia associated with infection 09/13/2024 09/13/2024 Encounters Date Type Department Care Team Description 12/27/2024 1:15 PM EDT Office Visit [facility] [address] [place] [address] Justen Jaimes MD Malignant neoplasm of prostate (CMS/HCC) (Primary Dx) 12/27/2024 Travel 12/26/2024 Travel 12/23/2024 Orders Only [facility] at [place] [address] [place] [address] Justen Jaimes MD 12/22/2024 Orders Only [facility] [address] [place] [address] Justen Jaimes MD from Last 3 Months Immunizations Immunization Administration Dates Next Due TD (adult), 2 Lf tetanus tox oid, preservative free, adsorbed 07/24/2010 Social History Tobacco Use Types Packs/Day Years Used Date Smoking Tobacco: Former Cigarettes Q uit: 1996 Smokeless Tobacco: Never Alcohol Use Standard Drinks/Week Comments Not Currently 0 (1 standard drink = 0.6 oz pur e alcohol) PHQ-2 Answer Date Recorded Patient Health Questionnaire-2 Score 0 12/27/2024 PHQ-9 Answer Date Recorded Patient Health Questionnaire-9 Score 0 12/27/2024 Sex and Gender Information Value Date Recorded Sex Assigned at Male 09/13/2024 2:50 PM EST Legal Sex Male 7:44 PM EDT Gender Identity Not on file Sexual Orientation Not on file Last Filed Vital Signs Vital Sign Reading Time Taken Comments Blood Pressure 130/74 12/27/2024 1:13 PM EDT Pulse 59 12/27/2024 1:13 PM EDT Temperature 36.7 C (98 F) 12/27/2024 1:13 PM EDT Respiratory Rate - - Oxygen Saturation 93% 12/27/2024 1:13 PM EDT Inhaled Oxygen Concentration - - Weight 89.9 kg (198 lb 3.1 oz) 12/27/2024 1:13 P M EDT Height 188 cm (6' 2 ) 12/27/2024 1:13 PM EDT Body Mass Index 25.45 12/27/2024 1:13 PM EDT Plan of Treatment Upcoming Encounters Date Type Department Care Team (Late st Contact Info) Description 06/27/2025 12:30 PM EDT Office Visit [facility] at [facility] [address] [place] [id number] 06/27/2025 1:30 PM EDT Office Visit [facility] at [facility] [address] [place] [address] Justen Jaimes MD [address] [phone] Health Maintenance Due Date Last Done Comments [facility]-Hepatitis C Screening 1947 [facility]-Medicare Annual Wellness (AWV) 1945 [facility]-Infant/Child/Adol SDOH Screenings 1947 [facility]-Obesity Intervention 1953 [facility]- SDOH Screenings 1965 [facility]-Adult SDOH Screenings 1965 [facility]-Pneumococcal Vaccine: 50 + Years (1 of 2 - PCV) 1966 [facility]-Zoster Vaccines (1 of 2) 1966 [facility]-DTaP,Tdap,and Td Vaccine s (1 - Tdap) 07/25/2010 07/24/2010 [id number] Vaccine (3 - Moderna risk series) 12/20/2020 11/22/2020, 10/25/2020 [facility]-RSV Vaccine: 60+ Years o r (1 - 1-dose 75+ series) 2022 [facility]-Influenza Vaccine (Seaso n Ended) 2025 06/26/2023, 06/08/2020, 06/14/2016 [facility]-Depression Screening 12/27/2025 025, 12/27/2024 HPV Vaccines Aged Out No longer eligi ble based on patient's age to complete this topic [facility]-HIB Vaccines Aged Out No longer e ligible based on patient's age to complete this topic [facility]-Hepatitis A Vaccines Aged Out No longer eligible based on patient's age to complete this topic [facility]-IPV Vaccines Aged Out No longer e ligible based on patient's age to complete this topic [facility]-Rotavirus Vaccines Aged Out No lo nger eligible based on patient's age to complete this topic Procedures Procedure Name Priority Date/Time Associated Diagnosis Comments CBC W/DIFF Routine 12/22/2024 3:55 PM EDT PA PROSTATE SPECIFIC ANTIGEN,TOTAL Routine 12/22/2024 9:37 AM EDT COMPLETE METABOLIC PROFILE (CMP) Routine 12/22/2024 9:37 AM EDT from Last 3 Months Results * CBC W/DIFF (12/22/2024 3:55 PM EDT) Justen Jaimes MD LAB BLOOD ORDERABLES [facility] Result * COMPLETE METABOLIC PROFILE (CMP) (12/22/2024 9:37 AM EDT) Justen Jaimes MD LAB BLOOD ORDERABLES [facility] [facility] Result * PA PROSTATE SPECIFIC ANTIGEN,TOTAL (12/22/2024 9:37 AM EDT) Justen Jaimes MD [facility] Final Res ult from Last 3 [place] [address] [facility] Care Teams Tube Tester Relationship Specialty Start Date End Date Tristan Billings DO [address] [facility] [place] [address] PCP - General 09/13/24
--- OUTSIDE RECORDS SUMMARY | 2025-03-04 14:18 | XMS_ITS | Data Portability ---
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 I provided Mr. Lezama with [...] T, skull base to mid-t high scan [address] [place] [address] Patien t Name: TRISHA Mireles OVERMA N [...] was GFR =50 6.2 mCi Ga-68 [facility] ([facility] [address]269- [id number] ) was inject ed IV. After an uptake time of 76 minute s, vertex throug h midthi gh PET imagin g was perfor med. This was follow ed by a low dose attenu ation correc tion/a natomi c locali zation CT from [facility] throug h the midthi gh levels . Urinar y tract was opacif ied with an inject ion of 50 mL Omnipa que 350 (1 x 50 ml bottle of [facility] [id number] ) admini stered 20 [...] thy. There is adenop athy in the customer marketing intern al iliac region and along the [...] Escalona MD on 2023 12:24 PM rlavey [facility] Radiology [facility] [address] [facility], [place], [address], 09/01/2024 12:51:05 09/27/19 25 09/27/2024 MRI, pelvi s, w/o contr ast [facility] [address] [place] [address] Patidc t Name: TRISHA Tsang Patidc t : 1944 Patien t Orderi ng [...] Escalona MD on 025 4:20 PM rlavey [facility] Radiology [facility] [address] [place], [address], 09/27/2024 19:31:11 Result Notes Documentation Provider Name and Address Organization Details Recorded Time Pet-ct, Skull Base To Mid-thigh Scan : [facility] [address] [place] [address] Patient Name: MARTIN LEZAMA Patient : 1945 Patient Ordering Provider: ZORAIDA GARDNER EXAM DATE: 09/01/2024 EXAM: PET-CT [facility] SKULL MID THIGH INT ST CLINICAL INFORMATION: Prostate Cancer - Initial PROCEDURE: A baseline serum creatinine with eGFR was obtained prior to injection of contrast medium due to the patients risk factors for SALOMON. Calculated eGFR at time of exam was GFR =50 6.2 mCi Ga-68 [facility] ([facility] 46287-823-02) was injected IV. After an uptake time of 76 minutes, vertex through midthigh PET imaging was performed. This was followed by a low dose attenuation correction/anatomic localization CT from vertex through the midthigh levels. Urinary tract was opacified with an injection of 50 mL Omnipaque 350 (1 x 50 ml bottle of [facility] 5225-7952-25) administered [address] scan. [...] the abdomen and pelvis bilaterally Interpreted By: Fred Escalona MD IDA GARDNER MD [address], [place], [address], [facility] 09/01/2024 12:51:05 Mri, Pelvis, W/o Contrast : [facility] [address] [place] [address] Patient Name: MARTIN LEZAMA Patient : 1945 [...] noted bilaterally of uncertain significance Interpreted By: Fred Escalona MD IDA GARDNER MD [address], [place], [address], [facility] 09/27/2024 19:31:11 Procedures Surgical History Date Name Laterality Status Provider Name and Address Organization Details Recorded Time 09/17/19 25 Prostate marker placement with SpaceO[employer] completed ZORAIDA GARDNER MD [address], [place], [address], [facility] 09/20/2024 21:49:03 10/16/18 98 [facility] 08/17/[facility] 12:00:45 09/15/18 98 procedure on knee completed [facility] 08/17/2024 12:01:01 09/15/18 80 vasectomy completed [facility] 08/17/2024 12:01:12 Imaging Results None recorded. Procedure Notes None [...] t Available Vitals Date Recorded Body height Provider Name an d Address Organization Details Last Updated DateTime 09/17/2024 187.96 cm Roselyn Rivera [facility] 09/17/2024 10:38:39 Date Recorded Body height Body mass index (BMI) Body weight Body temperature Heart rate Oxygen saturation Oxygen saturation in Arterial blood by Pulse oximetry Systolic blood pressure Diastolic blood pressure Provider Name and Address Organization Details Last Updated DateTime 187.96 cm 24.9 kg/m2 09803.9 2 g 97.2 [degF] 66 /min 94 % 94 % 102 mm[Hg] 54 mm[Hg] Roselyn Rivera [facility] 11:31:12 Social History Question Answer Notes LastModified by Organizat ion Details LastModified Time Tobacco Smoking Status Former Smoker Roselyn Rivera [facility] 08/17/2024 11:34:36 What Is Your Level Of Caffeine Consumption? Occasional Information not available 08/17/2024 When Did You Quit Smoking? 16+yearsjoey castillo Information not available 08/17/2024 What Is Your Current Pack Years? 10packyears Information not available 08/17/2024 At What Age Did You Start Smoking Tobacco? 19 Information not available 08/17/2024 How Much Tobacco Do You Smoke? No Information not available 08/17/2024 How Many Years Have You Smoked Tobacco? 25 Information not available 08/17/2024 Sex: Male Functional Status Question Answer Note LastModified by Organizat ion Details LastModified Time Do you use any illicit or recreational drugs? No Information not available 08/17/2024 Do you or have you ever used any other forms of tobacco or nicotine? No Information not available 08/17/2024 What is your level of alcohol consumption? None Information not available 08/17/2024 Mental Status None recorded. Family History Relationship [...] SNOMED-CT Code Diagnosis ICD10 Code Diagnosis Note [id number] MD [facility] [address] [place] [address] 05/19/2024 13:25:43 05/21/2024 06:07:21 [id number] MD [facility] [address] [place] [address] 07/23/2024 11:25:17 07/23/2024 16:41:36 [id number] FADY LAMB MD SURGERY SCHEDULE [address] [place] [address] 08/04/2024 08:27:28 08/04/2024 08:27:53 [id number] FADY LAMB MD [facility] [address] [place] [address] 08/09/2024 14:02:05 08/10/2024 04:08:34 [id number] ZORAIDA GARDNER MD [facility] [address] [place] [address] 08/17/2024 10:55:10 08/30/2024 12:23:43 Malignant neoplasm of prostate [id number] C61 [id number] FADY LAMB MD [facility] [address] [place] [address] 09/03/2024 11:13:19 09/03/2024 16:46:21 [id number] ZORAIDA GARDNER MD [facility] [address] [place] [address] 09/17/2024 09:29:57 09/21/2024 10:50:56 Malignant neoplasm of prostate [id number] C61 [id number] [facility] [address] [place] [address] 02/28/2025 13:16:41 02/28/2025 14:52:53 Health Concerns Section Related Observation LastModified by Organization Detai ls LastModified Time None Recorded Concern Status LastModified by Organization Details LastModified Time None Recorded Advance Directives Directive None Recorded Payers Insurance Date Sequence Insurance Name Policy Number Policy Carroll Covered Member ID Carroll Member ID Guarantor Name 02/25/2025 1 [place] Martin Lezama [id number] Martin Lezama 02/25/2025 2 FOR LIFE () Martni Lezama [id number] Martin Lezama Notes Date Note Type Note [...] of the prostate by Dr. Lamb found Northwood 5+4 = 9 adenocarcinoma involving between 5% and 100% of all 6 cores taken from the right side with 90% grade 4, equals Erica score 4+5=9 adenocarcinoma involving 95% - 100% [...] Lezama was admitted to [facility] from 08/10/2024 through 08/15/2024 for urinary retention and hematuria. Beltre catheter was placed in the emergency department on 08/10/2024 and was removed on 08/14/2024. He was discharged the following day when he was able to urinate on his own. Today, Mr. Lezama reports an IPSS of 22 out of 35 with nocturia x 3 4 and urinary frequency, intermittency, urgency, and [...] was switched recently to methotrexate by his colorer. His DIVINA score is 25 out of 25 with the use of Viagra. He has regular bowel movements without melena, hematochezia, tenesmus, or frequent diarrhea. 1 benign polyp was resected at his most recent colonoscopy in 2021. He smoked 1 pack of cigarettes daily for 20 years but quit in 1997. ZORAIDA GARDNER MD [address], [place], [address], [facility] 08/29/2024 11:53:22
--- OUTSIDE RECORDS SUMMARY | 2025-03-04 14:18 | XMS_ITS | Data Portability ---
Author Organization [place] - [facility], [employer] [facility] Address [address] [place] [address] Care Team Providers Care Stock Car Driver Name Role Phone FRED MURILLO Primary Care Provider [phone] Assessment No assessment recorded. Plan of Treatment Reminders Order Date Submit Date Provider Last Modified By Organization Details Last Modified Time Details Appointments None record ed. Lab None record ed. Referral None record ed. Procedures None record ed. Surgeries None record ed. Imaging None record ed. Medication Orders None record ed. Patient TargetsNo targets recorded. Patient InstructionsNo instructions recorded. Reason for Referral None Reported. Problems Name Problem SNOMED Code Status Onset Date Resolution Date Notes Provider Name and Address Organization Details Recorded Time Diabetes mellitus 45179951 Active 2022 Faraz Jefferson null, [place] - [facility] 3 13:55:39 Essential hypertension 47914267 Active 2022 Faraz [place] null, [place] - [facility] 3 13:55:49 Anticoagulan t therapy Active 2022 MANDY Hart null, [place] - [facility] 3 13:26:20 Osteoarthrit is 849955756 Active 2022 MANDY Hart null, [place] - [facility] 3 13:26:33 Erectile dysfunction 363392365 Active 2022 MANDY Hart null, [place] - [facility] 3 13:26:40 Benign prostatic hyperplasia 047775220 Active 2022 MANDY Hart null, [place] [facility] 3 13:26:49 Hyperlipidem nm 83037950 Active 2022 MarcieMarcie Rajendra MANDY Hart null, [facility] 3 13:26:55 Problem Notes None recorded. Medical Equipment None Reported. Allergies No known drug allergies Medications Name Sig Start Date Stop Date Status Note LastModified by Organization Details LastModified Time amoxicill in 500 mg capsule TAKE ONE CAPSULE BY MOUTH THREE TIMES DAILY 04/05 completed Not Available Not Available Not Available prednison e 10 mg tablet Take 1 tablet every day by oral route. 07/14 completed Not Available Not Available Not Available methotrex ate sodium 10 mg tablet Take 1 tablet every week by oral route. 07/14 completed Not Available Not Available Not Available meloxicam 15 mg tablet TAKE ONE TABLET BY MOUTH EVERY DAY NEEDED FOR jaw pain --TAKE WITH FOOD-- 02/24 completed Not Available Not Available Not Available prednison e 20 mg tablet Take 1 tablet every day by oral route. 06/30 completed Not Available Not Available Not Available sildenafi l 100 mg tablet 1 tab everyday as needed active Not Available Not Available No t Available warfarin 4 mg tablet 4.5mg everyday active Not Available Not Available No t Available isoniazid 300 mg tablet Take 1 tablet every day by oral route. 2023 active Not Available Not Available Not Avai lable tamsulosi n 0.4 mg capsule active Not Available Not Available Not Available simvastat in 20 mg tablet 1 tab everyday active Not Available Not Available No t Available Vitamin B-6 100 mg tablet Take 1 tablet by oral route. 2023 active Not Available Not Available Not Avai lable hydrochlo rothiazid e 25 mg tablet 1 tab everyday active pt holding off with this for now 11/12 Not Available Not Available Not Available warfarin 1 mg tablet active Uses as needed to adjust INR levels Not Available Not Available Not Available methylpre dnisolone 4 mg tablets in a dose pack TAKE ACCORDIN G TO PACKAGE INSTRUCT IONS --TAKE WITH FOOD-- -- FINISH ALL MEDICINE -- 04/05 completed Not Available Not Available Not Available oxybutyni n chloride 5 mg tablet Take 2 tablets twice a day by oral route. 02/24 completed Not Available Not Available Not Available lisinopri l 2.5 mg tablet Take 1 tablet every day by oral route. active Not Available Not Available No t Available atenolol 50 mg tablet 1 tab everyday active Not Available Not Available No t Available glipizide 5 mg tablet TAKE ONE TABLET BY MOUTH 30 MINUTES BEFORE breakfas t EVERY DAY 05/19 completed Not Available Not Available Not Available enoxapari n 100 mg/mL subcutane ous syringe USE DIRECTED PER physicia n 02/24 completed Not Available Not Available Not Available Lupron Depot active Not Available Not Available Not Available prednison e active 7.5 MG QD Not Available Not Available Not Available FreeStyle Lite Strips 11/16 completed Not Available Not Available Not Available glipizide ER 10 mg 24 hr tablet,ex tended release Take 1 tablet every day by oral route. active Not Available Not Available No t Available Farxiga 10 mg tablet 1 tab everyday active Not Available Not Available No t Available Vitals None Recorded Social History Question Answer Notes LastModified by Organizat ion Details LastModified Time Tobacco Smoking Status Former Smoker Quit in 24 years ago Chani Drake [facility], [place] - [facility] 11/16/2021 15:33:17 Are You Blind Or Do You Have Difficulty Seeing? Yes Corrected With Glasses Information not available 11/16/2021 What Is Your Level Of Caffeine Consumption? Moderate Information not available 11/16/2021 In The 14 Days Before Symptom Onset, Have You Had Close Contact With A Laboratory-confi rmed COVID-19 While That Case Was Ill? No Information not available 11/16/2021 In The 14 Days Before Symptom Onset, Have You Had Close Contact With A Person Who Is Under Investigation For COVID-19 While That Person Was Ill? No Information not available 11/16/2021 Have You Been To An Area Known To Be High Risk For COVID-19? No Information not available 11/16/2021 Are You Deaf Or Do You Have Serious Difficulty Hearing? Yes Pt Wears Hearing Aids Information not available 11/16/2021 What Type Of Diet Are You Following? REGULAR Information not available 11/16/2021 Have You Processed Blood Or Body Fluids From An Ebola Virus Disease Patient Without Appropriate PPE? No Information not available 11/16/2021 Do You Reside In Or Have You Traveled To An Area Where Ebola Virus Transmission Is Active? No Information not available 11/16/2021 Have You Recently Or Are You Planning To Travel To An Area With Zika Virus? No Information not available 11/16/2021 What Is Your Relationship Status? Information not available 11/16/2021 At What Age Did You Start Smoking Tobacco? 16 Information not available 11/16/2021 Do You Have Difficulty Walking Or Climbing Stairs? No Information not available 11/16/2021 Sex: Unknown Functional Status Question Answer Note LastModified by Organizat ion Details LastModified Time Do you use any illicit or recreational drugs? No Information not available 11/16/2021 Do you or have you ever used any other forms of tobacco or nicotine? No Information not available 11/16/2021 What is your level of alcohol consumption? None Information not available 11/16/2021 Do you have transportation difficulties? No Information not available 11/16/2021 Are you able to walk? YESWOREST Information not available 11/16/2021 Do you have difficulty doing errands alone? No Information not available 11/16/2021 Are you able to care for yourself? Yes Information n ot available 11/16/2021 Do you have difficulty dressing or bathing? No Information not available 11/16/2021 What is your exercise level? Occasional Information not available 11/16/2021 Mental Status Question Answer Note LastModified by Organizat ion Details LastModified Time Do you feel stressed (tense, restless, nervous, or anxious, or unable to sleep at night)? [id number] Information not available 11/16/2021 Do you have difficulty concentrating, remembering or making decisions? No Information no t available 11/16/2021 Family History Relationship Description Onset Age of this Age Resolved Age Notes LastModified by Organization Details LastModified Time Brother Diabetes mellitus [email or web address] get t Not available 11/16/2021 15:30:36 Sister Essential hypertension [email or web address] t Not available 11/16/2021 15:31:17 Medical History Condition Response Diabetes Y Coronary Artery Disease N Arthritis N Hyperthyroidism N Congestive Heart Failure (CHF) N Cancer N Stroke N Asthma N Hypothyroidism N High Cholesterol Y Hypertension Y Kidney Disease N Past Encounters Encounter ID Performer Location Encounter Start Date Encounter Closed Date Diagnosis/Indication Diagnosis SNOMED-CT Code Diagnosis ICD10 Code Diagnosis Note [id number] Srikanth Edwards MD [facility] [address] [place] [address] 11/16/2021 15:19:12 12/25/2021 23:31:53 Essential hypertension 40913075 I10 Uncontroll ed type 2 diabetes mellitus 855022936 E11.65 [id number] Srikanth Edwards MD [facility] [address] [place] [address] 11/26/2021 14:38:42 01/08/2022 12:37:48 Diabetes mellitus 86047181 E11.9 Essential hypertension 97956842 I10 [id number] Srikanth Edwards MD [facility] [address] [place] [address] 12/07/2021 15:42:51 01/03/2022 21:27:02 Diabetes mellitus 75844514 E11.9 Essential hypertension 87318418 I10 [id number] Srikanth Edwards MD [place] [facility] [address] [place] [address] 12/14/2021 16:04:16 01/29/2022 03:54:52 Diabetes mellitus 81808822 E11.9 Essential hypertension 82554941 I10 [id number] MD ANIBAL Teixeira [facility] [address] [place] [address] 12/21/2021 16:01:40 01/29/2022 03:54:53 Diabetes mellitus 83004787 E11.9 Essential hypertension 59908155 I10 [id number] MD ANIBAL Teixeira [facility] [address] [place] [address] 01/04/2022 16:02:31 01/29/2022 03:54:56 Diabetes mellitus 89429980 E11.9 Essential hypertension 63161384 I10 [id number] Srikanth Edwards MD [place] [facility] [address] [place] [address] 01/11/2022 16:17:47 01/28/2022 16:14:32 Diabetes mellitus 10682013 E11.9 Essential hypertension 86124356 I10 [id number] Srikanth Edwards MD [place] [facility] [address] [place] [address] 01/18/2022 16:12:09 02/14/2022 15:53:17 Diabetes mellitus 32957121 E11.9 Essential hypertension 52429296 I10 [id number] Srikanth Edwards MD [place] [facility] [address] [place] [address] 01/25/2022 16:12:01 01/25/2022 22:10:14 Diabetes mellitus 21482771 E11.9 Essential hypertension 30136925 I10 [id number] Srikanth Edwards MD [place] [facility] [address] [place] [address] 02/01/2022 16:08:44 02/04/2022 10:47:52 Diabetes mellitus 18553748 E11.9 Essential hypertension 04540914 I10 [id number] Srikanth Edwards MD [place] [facility] [address] [place] [address] 02/08/2022 16:21:37 03/24/2022 13:15:23 Diabetes mellitus 87365372 E11.9 Essential hypertension 79793018 I10 [id number] Srikanth Edwards MD [place] [facility] [address] [place] [address] 02/15/2022 16:03:42 02/19/2022 14:34:17 Diabetes mellitus 12662000 E11.9 Essential hypertension 79094131 I10 [id number] Srikanth Edwards MD [place] [facility] [address] [place] [address] 02/22/2022 16:04:55 03/17/2022 23:46:42 Diabetes mellitus 97935706 E11.9 Essential hypertension 98210967 I10 [id number] Srikanth Edwards MD [place] [facility] [address] [place] [address] 03/01/2022 16:07:59 03/17/2022 21:45:58 Diabetes mellitus 13224557 E11.9 Essential hypertension 74461269 I10 [id number] Srikanth Edwards MD [place] [facility] [address] [place] [address] 03/08/2022 16:05:33 04/05/2022 03:53:43 Diabetes mellitus 22789874 E11.9 Essential hypertension 18679473 I10 [id number] Srikanth Edwards MD [place] [facility] [address] [place] [address] 03/15/2022 16:11:27 04/26/2022 03:53:33 Diabetes mellitus 60788412 E11.9 Essential hypertension 18754415 I10 [id number] Srikanth Edwards MD [place] [facility] [address] [place] [address] 04/05/2022 16:21:27 04/24/2022 14:56:34 Diabetes mellitus 72499992 E11.9 Essential hypertension 58405195 I10 [id number] MD ANIBAL Teixeira [facility] [address] [place] [address] 04/19/2022 16:15:15 05/30/2022 03:54:38 Diabetes mellitus 86197992 E11.9 Essential hypertension 25803481 I10 [id number] Srikanth Edwards MD [place] [facility] [place] [address] [place] [address] 05/03/2022 16:55:42 05/29/2022 15:30:59 Diabetes mellitus 27229029 E11.9 Essential hypertension 40272574 I10 [id number] Rajendra Hart APRN-TELEVISION MECHANIC [place] [facility] [address] [place] [address] 05/17/2022 16:05:31 06/27/2022 03:53:23 Diabetes mellitus 94934788 E11.9 Essential hypertension 01873062 I10 [id number] Rajendra Hart MERCHANDISE SUPPORT ASSOCIATE-TELEVISION MECHANIC [facility] [address] [place] [address] 05/31/2022 16:14:33 06/27/2022 03:53:27 Diabetes mellitus 79657756 E11.9 Essential hypertension 97590833 I10 [id number] Rajendra Hart MERCHANDISE SUPPORT ASSOCIATE-TELEVISION MECHANIC [facility] [address] [place] [address] 06/14/2022 16:18:22 06/26/2022 10:53:41 Diabetes mellitus 35999336 E11.9 Essential hypertension 05774808 I10 [id number] Rajendra Hart MERCHANDISE SUPPORT ASSOCIATE-TELEVISION MECHANIC [facility] [address] [place] [address] 06/28/2022 16:33:56 08/01/2022 03:52:38 Diabetes mellitus 11294200 E11.9 Essential hypertension 40401765 I10 [id number] Rajendra Hart MERCHANDISE SUPPORT ASSOCIATE-TELEVISION MECHANIC [facility] [address] [place] [address] 07/12/2022 16:20:00 07/31/2022 14:32:30 Diabetes mellitus 18903774 E11.9 Essential hypertension 68500500 I10 [id number] Rajendra Hart MERCHANDISE SUPPORT ASSOCIATE-MARCELINO [facility] [address] [place] [address] 07/26/2022 16:20:55 11/19/2022 10:48:00 Diabetes mellitus 32221684 E11.9 Essential hypertension 90331231 I10 [id number] Rajendra Hart MERCHANDISE SUPPORT ASSOCIATE-TELEVISION MECHANIC [facility] [address] [place] [address] 08/16/2022 16:30:19 08/19/2022 12:09:55 Diabetes mellitus 43372394 E11.9 Essential hypertension 93012746 I10 [id number] Rajendra Hart MERCHANDISE SUPPORT ASSOCIATE-TELEVISION MECHANIC [facility] [address] [place] [address] 08/30/2022 16:12:03 11/29/2022 13:02:35 Diabetes mellitus 33899156 E11.9 Essential hypertension 08085493 I10 [id number] Rajendra Hart APRN-TELEVISION MECHANIC [facility] [address] [place] [address] 09/13/2022 16:53:17 12/30/2022 00:26:22 Diabetes mellitus 36092512 E11.9 Essential hypertension 29828433 I10 [id number] Rajendra Hart MERCHANDISE SUPPORT ASSOCIATE-TELEVISION MECHANIC [facility] [address] [place] [address] 09/27/2022 16:19:22 12/30/2022 18:51:10 Diabetes mellitus 33402514 E11.9 Essential hypertension 14106575 I10 [id number] Rajendra Hart APRN-TELEVISION MECHANIC [facility] [address] [place] [address] 10/11/2022 16:17:43 01/18/2023 14:30:53 Diabetes mellitus 75487557 E11.9 Essential hypertension 27843472 I10 [id number] Rajendra Hart APRN-TELEVISION MECHANIC [facility] Schedule [address] [place] [address] 10/25/2022 16:34:28 01/29/2023 11:50:46 Diabetes mellitus 81457698 E11.9 Patient's glucose readings are trending higher in the mornings, but normal after meals. Fasting glucose this morning was 149. Pt states this is due to veering away from diabetic diet due to 's medical issues but will try to do better. Encouraged pt to continue checking blood glucose daily and choose diabetic friendly foods. Essential hypertension 19065390 I10 Patient's blood pressure readings are trending up and down over the last week. He is showing a couple of lower readings- pt unsure why. Pt states he felt normal when he got the low readings. BP was elevated on 2/2- pt states due to being under some emotional stress about some things going on with 's health. Blood pressure today was 115/68 with heart rate of 84. Encouraged pt to continue monitoring sodium intake, taking medication s as prescribed , and exercise as tolerated. [id number] SUSAN Welsh_Nursin g Schedule [address] [place] [address] 11/08/2022 17:39:15 02/15/2023 21:45:57 Diabetes mellitus 98832613 E11.9 Essential hypertension 42143857 I10 [id number] Rajendra Hart APRN-TELEVISION MECHANIC [facility] [address] [place] [address] 11/22/2022 16:15:15 11/22/2022 16:41:00 Diabetes mellitus 98460082 E11.9 Essential hypertension 72728193 I10 [id number] Rajendra Hart APRN-TELEVISION MECHANIC [facility] Schedule [address] [place] [address] 12/13/2022 16:16:33 12/13/2022 16:24:25 Diabetes mellitus 51952149 E11.9 Essential hypertension 91616149 I10 [id number] Rajendra Hart APRN-TELEVISION MECHANIC [facility] Schedule [address] [place] [address] 01/17/2023 16:46:22 01/17/2023 16:52:09 Diabetes mellitus 96580017 E11.9 Essential hypertension 08103673 I10 [id number] Rajendra Hart APRN-TELEVISION MECHANIC [facility] Schedule [address] [place] [address] 01/30/2023 15:12:10 01/30/2023 16:46:05 Diabetes mellitus 64161473 E11.9 Essential hypertension 09438216 I10 [id number] Rajendra Hart APRN-TELEVISION MECHANIC [facility] Schedule [address] [place] [address] 02/07/2023 16:02:31 02/07/2023 16:07:35 Diabetes mellitus 14688213 E11.9 Essential hypertension 50224925 I10 [id number] Rajendra Hart MERCHANDISE SUPPORT ASSOCIATE-TELEVISION MECHANIC [facility] Schedule [address] [place] [address] 02/21/2023 16:28:58 02/21/2023 16:34:55 Diabetes mellitus 35640263 E11.9 Essential hypertension 98654353 I10 [id number] TODD CHOWDHURY NP [facility] Schedule [address] [place] [address] 03/07/2023 15:48:39 03/07/2023 15:53:49 Diabetes mellitus 79659212 E11.9 Essential hypertension 46018764 I10 [id number] TODD CHOWDHURY NP [facility] Schedule [address] [place] [address] 03/21/2023 15:40:28 03/21/2023 15:50:36 Diabetes mellitus 85403205 E11.9 Essential hypertension 47396936 I10 [id number] TODD CHOWDHURY FURNITURE DUSTER [facility] Schedule [address] [place] [address] 04/04/2023 15:45:51 04/04/2023 15:54:30 Diabetes mellitus 39064416 E11.9 Essential hypertension 22401760 I10 [id number] TODD CHOWDHURY NP [facility] Schedule [address] [place] [address] 04/18/2023 15:33:35 04/18/2023 15:43:13 Diabetes mellitus 84471279 E11.9 Essential hypertension 67563431 I10 [id number] TODD CHOWDHURY NP [facility] Schedule [address] [place] [address] 05/02/2023 15:42:42 05/02/2023 15:47:40 Diabetes mellitus 00699513 E11.9 Essential hypertension 35291354 I10 [id number] TODD CHOWDHURY NP [facility] Schedule [address] [place] [address] 05/23/2023 15:43:29 05/23/2023 15:50:23 Diabetes mellitus 34030958 E11.9 Essential hypertension 53340532 I10 [id number] TODD CHOWDHURY NP [facility] Schedule [address] [place] [address] 06/06/2023 15:28:59 06/06/2023 15:39:02 Diabetes mellitus 97467040 E11.9 Essential hypertension 01005665 I10 [id number] TODD CHOWDHURY NP [facility] Schedule [address] [place] [address] 07/18/2023 17:43:20 07/21/2023 09:45:32 Diabetes mellitus 43633096 E11.9 Essential hypertension 35637951 I10 [id number] TODD CHOWDHURY NP [facility] Schedule [address] [place] [address] 08/01/2023 17:36:40 08/04/2023 10:06:54 Diabetes mellitus 68169000 E11.9 Essential hypertension 45616642 I10 [id number] TODD CHOWDHURY NP [facility] Schedule [address] [place] [address] 08/22/2023 16:42:04 08/27/2023 10:54:09 Diabetes mellitus 49763099 E11.9 Essential hypertension 69632154 I10 [id number] Annalise Taylor NP [facility] Schedule [address] [place] [address] 09/05/2023 17:28:17 09/05/2023 17:49:18 Diabetes mellitus 65205982 E11.9 Essential hypertension 24103459 I10 [id number] Annalise Taylor NP [facility] Schedule [address] [place] [address] 10/31/2023 15:53:43 11/03/2023 15:44:35 Diabetes mellitus 87856110 E11.9 Essential hypertension 08312824 I10 [id number] Annalise Taylor NP [facility] Schedule [address] [place] [address] 11/28/2023 17:25:32 11/28/2023 17:37:46 Essential hypertension 60788205 I10 Diabetes mellitus 245169 09 E11.9 [id number] Annalise Taylor NP [facility] Schedule [address] [place] [address] 12/03/2023 17:39:49 12/03/2023 17:50:36 Essential hypertension 61947865 I10 Diabetes mellitus 625384 09 E11.9 [id number] Annalise Taylor NP [facility] Schedule [address] [place] [address] 12/17/2023 16:31:39 12/17/2023 16:39:03 Essential hypertension 49884669 I10 Diabetes mellitus 698267 E11.9 [id number] Annalise Taylor NP [facility] Schedule [address] [place] [address] 12/31/2023 16:49:01 12/31/2023 16:56:48 Essential hypertension 26761120 I10 Diabetes mellitus 979427 E11.9 [id number] Annalise Taylor NP [facility] Schedule [address] 6 01/14/2024 17:14:28 01/14/2024 17:25:19 Essential hypertension 71884591 I10 Diabetes mellitus 709463 E11.9 [id number] Annalise Taylor NP [facility] Schedule [address] 6 01/28/2024 17:09:51 01/28/2024 17:19:17 Essential hypertension 91236358 I10 Diabetes mellitus 602271 E11.9 [id number] Annalise Taylor NP [facility] Schedule [address] [place] [address] 02/25/2024 16:39:38 02/25/2024 16:49:57 Essential hypertension 12983894 I10 Diabetes mellitus 513327 E11.9 [id number] Annalise Taylor NP [facility]Prov[facility] Schedule [address] [place] [address] 02/26/2024 16:38:32 02/26/2024 16:48:12 Diabetes mellitus 13984228 E11.9 -Continue the following medication s as prescribed : glipizide, farxiga-Ch vin the following medication s: -Incorp orate diet and exercise into daily routine.-C ontinue daily glucose readings.- Highlighte d importance of glucose reading technique. -Follow-up with nurse for RPM visits. Is member tagging readings? YES.Is member familiar with plate method? YES.Drinki ng at least 48-64 oz of water per day, if no fluid restrictio n? YES. Essential hypertension 71715192 I10 -Continue the following medication s as prescribed : hctz, atenolol-C reede the following medication s: -Incorp orate diet, exercise, and stress management into daily routine.-C ontinue daily BP readings.- Highlighte d importance of BP reading technique. -Follow-up with nurse for RPM visits. Is positionin g of device correct? YES.Drinki ng at least 48-64 oz of water per day, if no fluid restrictio n? YES.Watchi ng salt intake? YES. [id number] KELLY Carreon_Nursin g Schedule [address] [place] [address] 03/10/2024 17:35:11 03/11/2024 09:38:18 Essential hypertension 67325053 I10 Diabetes mellitus 370681 E11.9 [id number] KELLY Carreon_Nursin g Schedule [address] [place] [address] 03/24/2024 16:31:57 03/24/2024 16:49:23 Essential hypertension 98801656 I10 Diabetes mellitus 651847 E11.9 [id number] KELLY Carreon_Nursin g Schedule [address] [place] [address] 04/07/2024 16:38:20 04/07/2024 16:53:36 Essential hypertension 96778240 I10 Diabetes mellitus 614275 E11.9 [id number] KELLY Carreon_Nursin g Schedule [address] [place] [address] 04/23/2024 15:44:06 04/23/2024 15:55:49 Essential hypertension 98204098 I10 Diabetes mellitus 946002 E11.9 [id number] KELLY Carreon_Nursin g Schedule [address] [place] [address] 05/19/2024 16:41:13 05/19/2024 16:57:22 Essential hypertension 71284744 I10 Diabetes mellitus 432789 E11.9 [id number] KELLY Carreon_Nursin g Schedule [address] [place] [address] 06/02/2024 16:39:18 06/02/2024 16:58:29 Essential hypertension 34224584 I10 Diabetes mellitus 925034 E11.9 [id number] Annalise Taylor, KELLY [facility]Nursin g Schedule [address] [place] [address] 06/16/2024 15:57:59 06/16/2024 16:15:11 Essential hypertension 61320967 I10 Diabetes mellitus 526757 09 E11.9 [id number] Annalise Taylor, FURNITURE DUSTER [facility]Nursin g Schedule [address] [place] [address] 06/30/2024 16:33:01 06/30/2024 16:45:21 Essential hypertension 14300622 I10 Diabetes mellitus 235958 09 E11.9 [id number] Annalise Taylor NP [facility] Schedule [address] [place] [address] 07/14/2024 16:18:27 07/14/2024 16:38:25 Diabetes mellitus 19379370 E11.9 Essential hypertension [id number] I10 [id number] Annalise Taylor NP [facility] Schedule [address] [place] [address] 07/21/2024 17:39:48 07/21/2024 18:00:12 Essential hypertension [id number] I10 Diabetes mellitus 793160 E11.9 [id number] Annalise Taylor NP [facility] Schedule [address] [place] [address] 07/28/2024 17:47:57 07/28/2024 18:03:49 Diabetes mellitus 25498805 E11.9 Diabetes mellitus Essential hypertension [id number] I10 Essential hypertensi on 961794 Annalise Taylor NP [facility] Schedule [address] [place] [address] 08/11/2024 17:24:32 08/11/2024 17:28:35 Diabetes mellitus 42893474 E11.9 Diabetes mellitus Essential hypertension 41223355 I10 Essential hypertensi on 019873 Annalise Taylor NP [facility] Schedule [address] [place] [address] 08/18/2024 17:45:40 08/18/2024 18:00:35 Diabetes mellitus 97917805 E11.9 Diabetes mellitus Essential hypertension 85092400 I10 Essential hypertensi on 793368 Annalise Taylor, FURNITURE DUSTER [facility] Schedule [address] [place] [address] 08/25/2024 17:32:06 08/25/2024 17:45:47 Diabetes mellitus 44090633 E11.9 Diabetes mellitus Essential hypertension 46106242 I10 Essential hypertensi on 105519 Annalise Taylor, KELLY [facility] Schedule [address] [place] [address] 09/01/2024 17:04:25 09/01/2024 17:12:44 Diabetes mellitus 51877132 E11.9 Diabetes mellitus Essential hypertension 14958666 I10 Essential hypertensi on 467131 Annalise Taylor NP [facility] Schedule [address] [place] [address] 09/09/2024 12:13:36 09/09/2024 12:16:47 Diabetes mellitus 67094098 E11.9 Diabetes mellitus Essential hypertension 55290538 I10 Essential hypertensi on 777913 Annalise Taylor, KELLY [facility]urs[facility] Schedule [address] [place] [address] 09/22/2024 18:18:09 09/23/2024 00:42:25 Diabetes mellitus 52456514 E11.9 Diabetes mellitus Essential hypertension 39984432 I10 Essential hypertensi on 018663 Ananlise Taylor NP [facility] Schedule [address] [place] [address] 09/29/2024 17:43:59 09/29/2024 17:52:53 Diabetes mellitus 16045283 E11.9 Diabetes mellitus Essential hypertension 70721710 I10 Essential hypertensi on 865492 Annalise Taylor, KELLY [facility]Prov[facility] er Schedule [address] [place] [address] 10/05/2024 16:19:13 10/05/2024 16:30:38 Diabetes mellitus 07105579 E11.9 Diabetes mellitus Essential hypertension 95985204 I10 Hypertensi on Ongoing Care Plan - Frequency of biomarker readings: Once daily before meds - Medication recommenda tions:X continue current regimen__ make these medication changes: Diabetes Ongoing Care Plan - Frequency of Biomarker Readings: Once daily: fasting before meds/break fastIf other, list instructio jerrod here: - Medication recommenda tions:X continue current regimen__ make these medication changes: - Statin Therapy: General -Continue RPM to ensure proper BP and glucose control to avoid long-term consequenc es of uncontroll ed high blood pressure and/or diabetes. - Additional testing and laboratory guidance: per PCP Nursing Care- Every 2 weeks visits- Telehealth Nurse to continue to monitor and adjust personaliz ed SMART goals and update goal statuses as appropriat e.- PCP/Specia list communicat ion plan: Nurses to fax readings: monthly to: __ PCP; __ cardiologi st; __ endocrinol ogist, __ other: Provider Visit Frequency- Every 6-8 months while enrolled- As needed as concerns arise [id number] KELLY Carreon[facility] Schedule [address] [place] [address] 10/06/2024 16:48:08 10/06/2024 16:49:21 Diabetes mellitus 80315234 E11.9 Diabetes mellitus Essential hypertension 92497788 I10 Essential hypertensi on 893120 KELLY Carreon_Connorin g Schedule [address] [place] [address] 10/06/2024 17:45:23 10/06/2024 18:02:20 Diabetes mellitus 29012876 E11.9 Diabetes mellitus Essential hypertension 02125482 I10 Essential hypertensi on 887377 KELLY Car[facility] Schedule [address] [place] [address] 10/13/2024 16:35:33 10/13/2024 17:08:55 Diabetes mellitus 12714000 E11.9 Diabetes mellitus Essential hypertension 79164174 I10 Essential hypertensi on 454656 KELLY Car[facility] Schedule [address] [place] [id number] 10/20/2024 16:40:00 10/20/2024 17:00:03 Diabetes mellitus 48283457 E11.9 Diabetes mellitus Essential hypertension 38267680 I10 Essential hypertensi on 029861 Annalise Taylor, FURNITURE DUSTER NS[facility]Nursin [facility] Schedule [address] [place] [address] 10/27/2024 17:15:42 10/27/2024 17:26:09 Diabetes mellitus 56949630 E11.9 Diabetes mellitus Essential hypertension 03683616 I10 Essential hypertensi on 598086 Annalise Taylor, FURNITURE DUSTER NS[facility]Nursin g Schedule [address] [place] [address] 11/03/2024 16:31:49 11/03/2024 16:47:04 Diabetes mellitus 19157914 E11.9 Diabetes mellitus Essential hypertension 16744052 I10 Essential hypertensi on 000029 Annalise Taylor NP [facility] Schedule [address] [place] [address] 11/10/2024 16:22:43 11/10/2024 16:31:06 Diabetes mellitus 23950225 E11.9 Diabetes mellitus Essential hypertension 80576202 I10 Essential hypertensi on 703367 Annalise Taylor, FURNITURE DUSTER NS[facility]Nursin g Schedule [address] [place] [address] 11/11/2024 10:18:10 11/11/2024 10:24:38 Diabetes mellitus 57606173 E11.9 Diabetes mellitus Essential hypertension 66565910 I10 Essential hypertensi on 296711 Annalise Taylor, FURNITURE DUSTER NS[facility]Nursin g Schedule [address] [place] [address] 11/17/2024 16:20:28 11/17/2024 16:41:39 Diabetes mellitus 09100991 E11.9 Diabetes mellitus Essential hypertension 48746070 I10 Essential hypertensi on 160464 Annalise Taylor, FURNITURE DUSTER NS[facility]Nursin [facility] Schedule [address] [place] [address] 11/24/2024 16:44:33 11/24/2024 16:55:25 Diabetes mellitus 87489340 E11.9 Diabetes mellitus Essential hypertension 84516721 I10 Essential hypertensi on 411286 Annalise Taylor, FURNITURE DUSTER NS[facility]Nursin [facility] Schedule [address] [place] [address] 11/25/2024 08:40:30 11/25/2024 08:42:30 Diabetes mellitus 83075032 E11.9 Diabetes mellitus Essential hypertension 61500892 I10 Essential hypertensi on 551908 Annalise Taylor NP [facility] Schedule [address] [place] [address] 12/01/2024 16:47:39 12/01/2024 16:58:01 Diabetes mellitus 62197920 E11.9 Diabetes mellitus Essential hypertension 66173258 I10 Essential hypertensi on 159862 Annalise Taylor NP [facility] Schedule [address] [place] [address] 12/08/2024 16:18:09 12/08/2024 16:35:01 Diabetes mellitus 78637302 E11.9 Diabetes mellitus Essential hypertension 63410072 I10 Essential hypertensi on Goals Section Goal Description Progress Status Start Date LastModified by Organization Details LastModified Time Patient's blood pressure is at baseline None Recorded worsening active 2023 Charlee Pena Information not available 07/14/2024 20:35:43 Patient maintains a blood glucose level at baseline None Recorded worsening active 2023 Charlee Pena Information not available 07/14/2024 20:36:59 Patient actively participa bri in plan of care None Recorded Progressing active 2023 Marc[place] Information not available 01/14/2024 21:25:05 Heart Healthy Diet Maintain a low sodium and low fat diet, restricting artificial sweetener use NoChange active 2023 [place] Information not available 01/28/2024 21:18:56 Health Concerns Section Related Observation LastModified by Organization Detai ls LastModified Time None Recorded Concern Status LastModified by Organization Details LastModified Time None Recorded Advance Directives Directive None Recorded Payers Insurance Date Sequence Insurance Name Policy Number Policy Carroll Covered Member ID Carroll Member ID Guarantor Name 11/17/2024 [place] Martin Lezama [id number] Martin Lezama 11/17/2024 1 [place] Martni Lezama [id number] Martin Lezama 11/17/2024 [place] Martin Lezama [id number] Martin Lezama 01/19/2025 2 FOR LIFE ( - MEDICARE SUPPLEMENT) Martin Lezama [id number] Martin Lezama
[2025-03-04 14:28] VITALS: BP 82/48; PULSE 72; RESP 16; O2SAT 95; BMI 24.0
--- NOTE | 2025-03-04 14:34 | PC.NURSE ---
PROVIDER AT BEDSIDE, PT GIVEN WATER TO DRINK, PROVIDER RECOMMENDED PT GO TO ER FOR EVALUATION OF HYPOTENSION. PT A&O BUT DOES STATE HE FEELS WEAK AND LIGHTHEADED
--- NOTE | 2025-03-04 15:17 | EXP.PAIN.OV ---
HPI Data of Consult Patient: new to practice Consult date: 03/04/25 Requesting Physician: Frances Wong APRN Primary Care Provider: Abelardo Pappas MD Reason for consult: Low back pain, right rib pain History of present illness: Mr. Lezama is a 79 year old male who presents today as a new patient. He is a referral from Dr. pappas. Today he rates his pain a 8 out of 10. Patient states that in December he thought he may have pulled a muscle while trying to move a box. Patient states it ended up never getting better and he ended up going to be seen for evaluation and had imaging that did show a compression fracture of L1. Patient states that it did have episodes of where it seemed to get a little bit better but then progressively worsened. Patient states that initially they did order him some physical therapy however once the imaging showed the compression fracture and since it was making his pain worse this was discontinued. Patient denies any previous back surgery or injection history. Patient has tried aqkz-caa-eoxikja medications such as Tylenol along with prescription strength medications of [place], methocarbamol with minimal improvement. Patient is interested in any options we may build provide as his pain is interfering with his ability perform activities of daily living such as cooking and cleaning. He does describe it as a constant aching sensation that with certain movements or positions will go to a sharp stabbing sensation. Patient states the pain is severe and will radiate out into his ribs primarily on the right side more than the left side.. He does state he has a long standing history of rheumatoid arthritis and does have treatment with Orencia for this. He does also state he has been diagnosed with prostate cancer and has been doing radiation and his most recent PSA was 0.5. He is scheduled for a Lupron injection coming up however was told by his PCP that this may be the last 1 he has to get for that treatment since his numbers are doing so well. His Hugo has been reviewed and is appropriate. Pain at rest (0-10 scale): 8 Has patient had previous pain injection?: No Conservative treatment options previously tried: Home exercise plan, Physical Therapy and Prescription medications cc:: CC: Frances Wong APRN [facility] Disclaimer: The information contained in this section may have been updated after the patient was seen, as this information can be updated by other users. Medical History (Updated 03/04/25 @ 15:22 by Frances Wong APRN) Rheumatoid arthritis Compression fracture of L1 lumbar vertebra Low back pain Prostate CA Strain of lumbar paraspinal muscle Latent tuberculosis Abnormal EKG Sinus bradycardia HLD (hyperlipidemia) HTN (hypertension) [facility] current use of anticoagulant Surgical History H/O mechanical aortic valve replacement Family History Other No significant family history Social History Smoking Status: Never smoker alcohol intake: never substance use type: denies use current occupational status: other Travel in the last 8 weeks?: None household members: spouse housing: house caffeine: Yes Review of Systems Review of Systems Review of systems:: pertinent systems reviewed and negative unless documented below Review of systems (narrative): Review of Systems: General: No recent weight changes, no fever, no sleep disturbances Respiratory: No cough, no shortness of air, no recurring pulmonary infections Cardiovascular/peripheral vascular: No chest pain, no palpitations, no edema, no shortness of breath Gastrointestinal: No new onset incontinence, normal bowel movements reported Genitourinary: No new onset incontinence Musculoskeletal: Low back pain, rib pain Psychiatric: [Normal mood/affect] Neurological: [Denies weakness in extremities], [denies balance issues] Meds Home Medications and Allergies Home Medications ?Medication ?Instructions ?Recorded ?Confirmed ?Type tamsulosin 0.4 mg capsule 0.8 mg PO DAILY 09/10/23 03/04/25 History dapagliflozin propanediol 10 mg See Rx Instructions .Route 03/29/24 03/04/25 Rx tablet .COMPLEX #90 tabs warfarin 4 mg tablet See Rx Instructions .Route 03/29/24 03/04/25 Rx .COMPLEX #120 tabs omeprazole 20 mg capsule,delayed 20 mg PO DAILY 06/21/24 03/04/25 History release simvastatin 20 mg tablet 20 mg PO DAILY 06/21/24 03/04/25 History oxybutynin chloride 10 mg 10 mg PO DAILY 09/23/24 03/04/25 History tablet,extended release 24 hr isoniazid 300 mg tablet 300 mg PO DAILY 11/01/24 03/04/25 History pyridoxine (vitamin B6) 100 mg 100 mg PO DAILY 11/01/24 03/04/25 History tablet leuprolide acetate (6 month) 45 mg 45 mg IM Q6 12/14/24 03/04/25 History intramuscular syringe kit (Lupron Depot) polyethylene glycol 3350 17 17 g PO DAILY 4 days #68 grams 12/14/24 03/04/25 Rx gram/dose oral powder (Miralax) vitamin B6-vitamin E-magnesium 1 tab PO DAILY 12/14/24 03/04/25 History tablet lisinopril 2.5 mg tablet 2.5 mg PO DAILY #90 tabs 12/20/24 03/04/25 Rx glipizide 10 mg tablet 10 mg PO DAILY #90 tabs 12/27/24 03/04/25 Rx hydrochlorothiazide 25 mg tablet 25 mg PO DAILY #90 tabs 12/27/24 03/04/25 Rx abatacept 125 mg/mL subcutaneous 125 mg SQ .monthy 01/07/25 03/04/25 History auto-injector (Orencia ClickJect) calcitonin (salmon) 200 1 spray intranasal (ALT) DAILY 01/13/25 03/04/25 Rx unit/actuation nasal spray #3.7 mL calcium 600 mg (as See Rx Instructions PO BID #60 caps 01/13/25 03/04/25 Rx carbonate)-vitamin D3 12.5 mcg (500 unit) capsule (Calcium with Vit D3) methocarbamol 500 mg tablet 500 mg PO TID #90 tabs 01/20/25 03/04/25 Rx prednisone 5 mg tablet 4 mg PO DAILY 01/20/25 03/04/25 History atenolol 50 mg tablet 50 mg PO DAILY BLOOD PRESSURE #90 02/28/25 03/04/25 Rx tabs hydrocodone 5 mg-acetaminophen 325 1 tab PO Q8H PRN pain #60 tabs 03/03/25 03/04/25 Rx mg tablet New Prescriptions to Start Prescriptions: Allergies Allergy/AdvReac Type Severity Reaction Status Date / Time No Known Allergies Allergy Verified 03/03/25 08:52 Objective Vital signs: Pulse Resp BP Pulse Ox O2 Del Method 72 16 82/48 L 95 Room Air 03/04/25 14:28 03/04/25 14:28 03/04/25 14:28 03/04/25 14:03/04/25 14:28 Narrative: Physical Exam: General: Alert and oriented x3, no acute distress, pleasant and cooperative Lungs: Respirations even and unlabored, symmetrical chest expansion Eyes: PERRL Musculoskeletal: Flexion and extension of lumbar [spine] somewhat guarded secondary to pain, [antalgic gait noted] Neurological: Speech clear, no gross sensory deficit Additional findings Additional findings: FINDINGS: There is abnormal compression deformity involving the superior endplate of L1 measuring 20 degrees. There is abnormal sclerosis at the inferior endplate of T12 and superior endplate of L1. Finding is best seen on image 37 of series 602. Findings new from prior dated 12/14/2024. Moderate anterior osteophyte formation is seen at L1-2 and L2-3. There is no significant disc bulge or protrusion. There are multiple rounded benign-appearing cysts in both kidneys. There is no evidence of abnormal contrast-enhancement. IMPRESSION: Interval progression of the compression deformity of L1, probably due to insufficiency fracture. MRI could better assess for marrow edema. Reviewed, Interpreted and Dictated by Marlo Rao MD Transcribed by Sofia Liz Authenticated and [facility] Assessment and Plan *Assessment and plan (1) Compression fracture of L1 lumbar vertebra: Status: Acute Category: Medical Code(s): S32.010A - Wedge compression fracture of first lumbar vertebra, initial encounter for closed fracture (2) Low back pain: Status: Acute Category: Medical Code(s): M54.50 - Low back pain, unspecified (3) Lumbar radiculopathy: Status: Acute Category: Medical Code(s): M54.16 - Radiculopathy, lumbar region (4) Prostatic cancer: Status: Acute Category: Medical Code(s): C61 - Malignant neoplasm of prostate Plan I did go over several things with the patient during today's visit. We did go over the possibility that he may be a beneficial candidate of a kyphoplasty procedure. Patient has not had an MRI and I will order an MRI without contrast to rule out whether this is acute versus chronic. Patient will be ordered a back brace to help stabilize and support his lumbar spine around the site of the compression fracture. Patient is having extreme pain in his low back that does radiate out into his ribs with limited range of motion. I did review over that I do believe he would also benefit from a lumbar epidural steroid injection. Risk and benefits were discussed with patient and he would like to proceed forward with this plan of care. Patient is on blood thinner written by Dr. Pappas for his mechanical aortic valve and we will make sure that he is able to stop this medication prior to this injection. Patient acknowledges understanding agrees with this plan of care. I will also order the patient a DEXA scan to confirm whether or not there is osteoporosis present. We did discuss at length due to his longstanding history of the recent radiation that that may have affected his bones allowing for this compression fracture to occur. I will also order the patient a compounded cream and send in refills of the methocarbamol but increase it to 750 mg 3 times a day. Patient will return to clinic for a LESI T12-L1 under fluoroscopy. Patient has not had any epidurals in the past to compare to. Patient has tried and failed conservative therapy including oral medications, heat and ice, topicals, physical therapy and continued at home stretching exercise for longer than 6 weeks.\ Patient has been instructed to contact the clinic with any concerns before the next appointment. Dr. Negro has reviewed this note and agrees with this plan of care. This note was dictated using voice recognition software and make contain errors or omissions. All injections are used with Lidocaine, Bupivacaine and dexamethasone. Occasionally urine drug screen is needed to verify patient's compliance with our office pain contract. This is ordered based off specific treatments related to chronic pain with the potential to abuse certain medications.
--- NOTE | 2025-03-04 15:21 | PC.NURSE ---
Pt arrived to clinic appt today ambulating with a cane with his . Pt initial blood pressure was 82/48, recheck was 86/49. Provider yuridia nieto aprn notified of bp. Pt states pt had been a little weak. Pt given bottle of water, provider states she will be in to see pt. Recheck bp while provider present was 101/57. Additional bp taken after speaking with provider was 108/54 while pt was standing after having back brace placed on. Pt denies dizziness upon standing. Stated to pt I was concerned of his blood pressure being low of this causing a high risk of falls for pt. Asked pt if he would like to be seen in the ER for evaluation of low blood pressure. Pt showed me his bp reading on his phone from this morning of 120s/70s. Pt was seen at Dr. Pappas's office yesterday, bp reading was WNL. Pt reported he would rather not go to the ER. Stated to pt I would recommend he be evaluated, pt was agreeable to see his PCP. Contacted Dr. Pappas's office, spoke with Dr. Pappas, notified him of pt bp reading here in the office. Dr. Pappas stated to have pt hold his lisinopril, continue to monitor his blood pressure over the weekend, call his office on Friday for evaluation. Dr. Pappas stated to tell pt for any concerns he may have he can have the hospital sorter operator page him over the weekend. This information from Dr. Pappas was relayed to pt and his , verbalized understanding. Educated pt to change positions slowly, make sure to use his cane for ambulation. If he began to feel dizzy, weak, lightheaded, sweaty, clammy, pale, n/v he should go to the ER for evaluation. Pt and verbalized understanding. Reinforced for them to call Dr. Pappas's office on Friday for an appt. Pt taken to his car per pain management staff via wheelchair for safety.
== END 2025-03-04 23:59 | disposition home or self-care (01) ==
PROVIDERS: PCP Family Medicine; Visit Provider Nurse Practitioner Family
DX: S32.010A Wedge compression fracture of first lumbar vertebra, initial encounter for closed fracture (principal); X58.XXXA Exposure to other specified factors, initial encounter; Y93.9 Activity, unspecified; Y92.9 Unspecified place or not applicable; M54.16 Radiculopathy, lumbar region; C61 Malignant neoplasm of prostate
CPT/HCPCS: 99202; G0463

== ENCOUNTER 2025-03-14 15:16 | Outpatient (CLI) | payer MEDICARE, OTHER, SELFPAY ==
--- NOTE | 2025-03-14 15:19 | MR_ITS ---
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 On the sagittal T2-weighted images, there is abnormal decreased signal throughout the lumbar discs, excepting the L1-2 level where there is increased signal in the L1-2 disc without evidence of endplate marrow edema. There is redemonstration of a T12 compression fracture. There is a new L3 compression deformity involving the superior endplate of L3, with 30% compression, and diffuse bone marrow edema consistent with an acute or subacute fracture. The vertebral alignment is normal. T12-L1: There is no significant canal stenosis or neural foraminal narrowing. L1-2: There is no significant canal stenosis or neural foraminal narrowing. L2-3: A mild annular bulge is present with mild bilateral neural foraminal narrowing. L3-4: There is no significant canal stenosis or neural foraminal narrowing. L4-5: A mild annular bulge is present with mild bilateral neural foraminal narrowing. L5-S1: A mild annular bulge is present with mild to moderate left neural foraminal narrowing. IMPRESSION: New L3 compression deformity with 30% loss of height of the superior endplate and diffuse bone marrow edema, consistent with an acute or subacute fracture. Redemonstration of the previously noted T12 compression deformity on the prior CT of 01/12/2025. Mild lumbar degenerative changes are otherwise present. Reviewed, Interpreted and Dictated by Marlo Rao MD Transcribed by Leia Rosales Authenticated and [facility]
--- OUTSIDE RECORDS SUMMARY | 2025-03-14 15:19 | XMS_ITS | Continuity of Care Document ---
Author Organization [facility] Sarai santiago [facility] Address [address] [place] [address] Assessment No assessment recorded. Plan of Treatment Reminders Order Date Submit Date Provider Last Modified By Organization Details Last Modified Time Details Appointments RECHECK 2024 01:30P M ZORAIDA GARDNER MD Not available Not available Not available RECHECK 2024 01:30P M FADY LAMB MD Not available Not available Not available Lab urinalysi s panel, auto 2024 025 [facility], [address], [place], [address], 02/28/2025 14:44:08 PSA, serum or plasma 2024 025 [email or web address] [facility], [address], [place], [address], 02/28/2025 14:44:08 Referral None recorded. Procedures None recorded. Surgeries None recorded. Imaging None recorded. Medication Orders None recorded. Patient TargetsNo targets recorded. Patient InstructionsNo instructions recorded. Reason for Referral None Reported. Results Created Date Observation Date Name Description Value Unit Range Abnormal Flag Note LastModifiedBy Organization Detail LastModifiedTime 02/29/2002/28/2025 urina lysis panel , auto Unknown Analyte Clean Catch Not [facility] [address], [place], [address], 02/28/2025 14:04:51 02/29/20 25 02/28/2025 urina lysis panel , auto Unknown Analyte Yellow Not Available [facility] [address], [place], [address], 02/28/2025 14:04:51 02/29/20 25 02/28/2025 urina lysis panel , auto Unknown Analyte Clear Not Available [facility] [address], [place], [address], 02/28/2025 14:04:51 02/29/20 25 02/28/2025 urina lysis panel , auto Unknown Analyte 1.020 Not Available [facility] [address], [place], [address], 02/28/2025 14:04:51 02/29/20 25 02/28/2025 urina lysis panel , auto Unknown Analyte 1.003 - 1.030 Not Available [facility] [address], [place], [address], 02/28/2025 14:04:51 02/29/20 25 02/28/2025 urina lysis panel , auto Unknown Analyte 5.0 Not Available [facility] [address], [place], [address], 02/28/2025 14:04:51 02/29/20 25 02/28/2025 urina lysis panel , auto Unknown Analyte 5.0 - 8.0 Not Available [facility] [address], [place], [address], 02/28/2025 14:04:51 02/29/20 25 02/28/2025 urina lysis panel , auto Unknown Analyte 75 Iveth/uL Not Available [facility] [address], [place], [address], 02/28/2025 14:04:51 02/29/20 25 02/28/2025 urina lysis panel , auto Unknown Analyte Negati ve Not Available [facility] [address], [place], [address], 02/28/2025 14:04:51 02/29/20 25 02/28/2025 urina lysis panel , auto Unknown Analyte Negati ve Not Available [facility] [address], [place], [address], 02/28/2025 14:04:51 02/29/20 25 02/28/2025 urina lysis panel , auto Unknown Analyte Negati ve Not Available [facility] [address], [place], [address], 02/28/2025 14:04:51 02/29/20 25 02/28/2025 urina lysis panel , auto Unknown Analyte Trace Not Available [facility] [address], [place], [address], 02/28/2025 14:04:51 02/29/20 25 02/28/2025 urina lysis panel , auto Unknown Analyte Negati ve Not Available [facility] [address], [place], [address], 02/28/2025 14:04:51 02/29/20 25 02/28/2025 urina lysis panel , auto Unknown Analyte >1000 mg/dL Not Available [facility] [address], [place], [address], 02/28/2025 14:04:51 02/29/20 25 02/28/2025 urina lysis panel , auto Unknown Analyte Normal Not Available [facility] [address], [place], [address], 02/28/2025 14:04:51 02/29/20 25 02/28/2025 urina lysis panel , auto Unknown Analyte Negati ve Not Available [facility] [address], [place], [address], 02/28/2025 14:04:51 02/29/20 25 02/28/2025 urina lysis panel , auto Unknown Analyte Negati ve Not Available [facility] [address], [place], [address], 02/28/2025 14:04:51 02/29/20 25 02/28/2025 urina lysis panel , auto Unknown Analyte Normal Not Available [facility] [address], [place], [address], 02/28/2025 14:04:51 02/29/20 25 02/28/2025 urina lysis panel , auto Unknown Analyte Normal Not Available [facility] [address], [place], [address], 02/28/2025 14:04:51 02/29/20 25 02/28/2025 urina lysis panel , auto Unknown Analyte 1 mg/dL Not Available [facility] [address], [place], [address], 02/28/2025 14:04:51 02/29/20 25 02/28/2025 urina lysis panel , auto Unknown Analyte Negati ve Not Available [facility] [address], [place], [address], 02/28/2025 14:04:51 02/29/20 25 02/28/2025 urina lysis panel , auto Unknown Analyte 50 Arslan/uL Not Available [facility] [address], [place], [address], 02/28/2025 14:04:51 02/29/20 25 02/28/2025 urina lysis panel , auto Unknown Analyte Negati ve Not Available [facility] [address], [place], [address], 02/28/2025 14:04:51 Result Notes None recorded. Problems No Known Problems Procedures Surgical History Date Name Laterality Status Provider Name and Address Organization Details Recorded Time 02/29/20 25 Lupron Administration completed Harleen Porfirio [facility] 02/28/2025 14:50:38 09/03/20 24 Lupron Administration completed Sadia Ndiaye [facility] 09/03/2024 13:10:22 Vasectomy completed Sadia Ndiaye [facility] 05/19/2024 15:50:09 procedure on knee completed Sadia Ndiaye [facility] 05/19/2024 15:52:15 mechanical prosthetic aortic valve replacement completed Tammy Curtis [facility] 05/21/2024 09:02:43 Imaging Results None recorded. [...] Updated DateTime 02/28/2025 187.96 cm 23.8 kg/m2 68058.59 g Harleen Monroy [facility] 02/28/2025 14:14:02 Social History Question Answer Notes LastModified by Organizat ion Details LastModified Time Tobacco Smoking Status [facility] 15:49:08 When Did You Quit Smoking? 18+yearssin taco perez 1997 [email or web address] Information not available 05/19/2024 What Was The Date Of Your Most Recent Tobacco Screening? 02/28/2025 [email or web address] Information not available 02/28/2025 What Is Your Relationship Status? [email or web address] Information not available 05/19/2024 How Much Tobacco Do You Smoke? No [email or web address] Information not available 05/19/2024 Has Tobacco Cessation Counseling Been Provided? No [email or web address] Information not available 05/19/2024 Sex: Male Functional Status Question Answer Note LastModified by Organizat ion Details LastModified Time Do you use any illicit or recreational drugs? No Information not available 05/19/2024 Do you or have you ever used any other forms of tobacco or nicotine? No [email or web address] Information not available 05/19/2024 What is your level of alcohol consumption? None [email or web address] Information not available 05/19/2024 Are you currently employed? No retired [email or web address] Information not available 05/19/2024 Mental Status None recorded. Family History Nothing Reported. Medical History Condition Response Sleep Apnea Y Past Encounters Encounter ID Performer Location Encounter Start Date Encounter Closed Date Diagnosis/Indication Diagnosis SNOMED-CT Code Diagnosis ICD10 Code Diagnosis Note [id number] FADY LAMB MD [facility] [address] [place] [address] 02/28/2025 13:16:41 02/28/2025 14:52:53 History of malignant neoplasm of prostate 629743218 Z85.46 He received a 6-month Eligard injection today and we will see him back in 6 months with PSA Health Concerns Section Related Observation LastModified by Organization Detai ls LastModified Time None Recorded Concern Status LastModified by Organization Details LastModified Time None Recorded Payers Encounter Date Sequence Insurance Name Policy Number Policy Carroll Covered Member ID Carroll Member ID Guarantor Name 02/28/2025 1 [place] Martin Lezama [id number] Martin Lezama 02/28/2025 2 FOR LIFE () Martin Lezama [id number] Martin Lezama Notes Date Note Type Note [...] months. He now seeing Dr. Pappas in [place] as his primary care. FADY LAMB MD [facility] [place], [address], [facility] 02/28/2025 17:48:31
--- OUTSIDE RECORDS SUMMARY | 2025-03-14 15:19 | XMS_ITS | Data Portability ---
Author Organization [facility] [place] [facility] ADMIN Address [address] [place] [id number] Care Team Providers Care Overedger Name Role Phone MAXIMILIAN TORRES Primary Care Provider AURELIA DEL CASTILLO [employer] FADY LAMB Urologist EMERY PIEDRA Test Preparer GAYLA SANCHEZ Primary Care Provider Assessment No assessment recorded. Plan of Treatment Reminders Order Date Submit Date Provider Last Modified By Organization Details Last Modified Time Details Appointments Establish ed Visit 15 min 2024 11:00A M Nery lin APRN Not available Not available Not available Lab CBC w/ auto diff 2024 025 [facility], [address] [facility], [place], [address], 12/21/2024 14:21:17 hepatic function panel, serum 2024 025 [email or web address], [address] [facility], [place], [address], 01/01/2025 19:55:37 CBC w/ auto diff 2024 025 [facility], [address] [facility], [place], [address], 10/21/2024 14:27:12 hepatic function panel, serum 2024 025 [email or web address], [address] [facility], [place], [address], 10/28/2024 13:17:52 CBC w/ auto diff 2023 024 [facility], [address] [facility], [place], [address], 08/20/2024 11:59:13 hepatic function panel, serum 2023 024 [facility], [address] [facility], [place], [address], 08/20/2024 11:55:46 CBC w/ auto diff 2023 024 [facility], [address] [facility], [place], [address], 07/23/2024 10:11:21 hepatic function panel, serum 2023 024 [facility], [address] [facility], [place], [address], 07/23/2024 10:49:19 Referral None recorded. Procedures None recorded. Surgeries None recorded. Imaging None recorded. Medication Orders isoniazid 300 mg tablet 2023 [facility], [address] [place] [address], [id number], 08/20/2024 10:48:31 isoniazid 300 mg tablet 2023 024 [facility], [address] [place] [address], [id number], 07/26/2024 13:18:07 pyridoxin e (vitamin B6) 100 mg tablet 2023 024 [facility], [address] [place] [address], [id number], 07/23/2024 15:27:07 Patient TargetsNo targets recorded. Patient InstructionsNo instructions recorded. Reason for Referral None Reported. Results Created Date Observation Date Name Description Value Unit Range Abnormal Flag Note LastModifiedBy Organization Detail LastModifiedTime 07/23/20 24 07/23/2024 CBC AUTO W DIFF WBC 11.5 K/uL 4.0-10 .5 high Not Available [facility] ([facility]) [address] [place], [address], 07/23/2024 10:11:21 07/23/20 24 07/23/2024 CBC AUTO W DIFF RBC 3.4 M/mm3 4.7-6. 1 low Not Available [facility] ([facility]) [address] [place], [address], 07/23/2024 10:11:21 07/23/20 24 07/23/2024 CBC AUTO W DIFF HGB 11.0 gm/dL 13.5-1 8.0 low Not Available [facility] ([facility]) [address] [place], [address], 07/23/2024 10:11:21 07/23/20 24 07/23/2024 CBC AUTO W DIFF HCT 34.7 % 42.0-5 2.0 low Not Available [facility] ([facility]) [address] [place], [address], 07/23/2024 10:11:21 07/23/20 24 07/23/2024 CBC AUTO W DIFF MCV 100.9 fL 78-100 high Not Available [facility] ([facility]) [address] [place], [address], 07/23/2024 10:11:21 07/23/20 24 07/23/2024 CBC AUTO W DIFF MCH 32.0 pg 27-31 high Not Available [facility] ([facility]) [address] [place], [address], 07/23/2024 10:11:21 07/23/20 24 07/23/2024 CBC AUTO W DIFF MCHC 31.7 g/dL 32-36 low Not Available [facility] ([facility]) [address] , [place], [address], 07/23/2024 10:11:21 07/23/20 24 07/23/2024 CBC AUTO W DIFF RDW 16.3 % 11.5-1 4.0 high Not Available [facility] ([facility]) [address] , [place], [address], 07/23/2024 10:11:21 07/23/20 24 07/23/2024 CBC AUTO W DIFF platelet count 310 K/uL 150-45 0 Not Available [facility] ([facility]) [address], [place], [address], 07/23/2024 10:11:21 07/23/20 24 07/23/2024 CBC AUTO W DIFF MPV 9.7 fL 6-9.5 high Not Available [facility] ([facility]) [address] , [place], [address], 07/23/2024 10:11:21 07/23/20 24 07/23/2024 CBC AUTO W DIFF neutrophil% 80.6 % 43-65 high Not Available [facility] ([facility]) [address] [place], [address], 07/23/2024 10:11:21 07/23/20 24 07/23/2024 CBC AUTO W DIFF lymphocyte% 10.4 % 20.5-4 5.5 low Not Available [facility] ([facility]) [address] [place], [address], 07/23/2024 10:11:21 07/23/20 24 07/23/2024 CBC AUTO W DIFF monocyte% 6.9 % 5.5-11 .7 Not Available [facility] ([facility]) [address] , [place], [address], 07/23/2024 10:11:21 07/23/20 24 07/23/2024 CBC AUTO W DIFF eosinophil% 1.0 % 0.9-2. 9 Not Available [facility] ([facility]) [address], [place], [address], 07/23/2024 10:11:21 07/23/20 24 07/23/2024 CBC AUTO W DIFF basophil% 0.4 % 0.2-1. 0 Not Available [facility] ([facility]) [address], [place], [address], 07/23/2024 10:11:21 07/23/20 24 07/23/2024 CBC AUTO W DIFF immature granulocytes % 0.7 % 0.0-0. 8 Not Available [facility] ([facility]) [address], [place], [address], 07/23/2024 10:11:21 07/23/20 24 07/23/2024 CBC AUTO W DIFF nucleated red blood cells % 0.3 % Not Available [facility] ([facility]) [address], [place], [address], 07/23/2024 10:11:21 07/23/20 24 07/23/2024 CBC AUTO W DIFF neutrophil# 9.3 K/uL 2.2-4. 8 high Not Available [facility] ([facility]) [address], [place], [address], 07/23/2024 10:11:21 07/23/20 24 07/23/2024 CBC AUTO W DIFF lymphocyte# 1.2 cell/ mcL 1.3-2. 9 low Not Available [facility] ([facility]) [address], [place], [address], 07/23/2024 10:11:21 07/23/20 24 07/23/2024 CBC AUTO W DIFF monocyte# 0.8 cell/ mcL 0.3-0. 8 Not Available [facility] ([facility]) [address] , [place], [address], 07/23/2024 10:11:21 07/23/20 24 07/23/2024 CBC AUTO W DIFF eosinophil# 0.1 cell/ mcL 0-0.2 Not Available [facility] ([facility]) [address] , [place], [address], 07/23/2024 10:11:21 07/23/20 24 07/23/2024 CBC AUTO W DIFF basophil# 0.1 cell/ mcL 0.0-1. 0 Not Available [facility] ([facility]) [address] , [place], [address], 07/23/2024 10:11:21 07/23/20 24 07/23/2024 CBC AUTO W DIFF immature gramulocytes # 0.08 K/uL Not Available [facility] ([facility]) [address] , [place], [address], 07/23/2024 10:11:21 07/23/20 24 07/23/2024 CBC AUTO W DIFF nucleated red blood cells # 0.03 K/uL Not Available [facility] ([facility]) [address], [place], [address], 07/23/2024 10:11:21 07/23/20 24 07/23/2024 CBC AUTO W DIFF manual differential NO Not Available [facility] ([facility]) [address] , [place], [address], 07/23/2024 10:11:21 07/23/20 24 07/23/2024 HEPAT IC FUNCT IONAL PANEL total protein 7.3 g/dL 6.4-8. 2 Not Available [facility] ([facility]) [address], [place], [address], 07/23/2024 10:22:19 07/23/20 24 07/23/2024 HEPAT IC FUNCT IONAL PANEL albumin 3.6 g/dL 3.4-5. 0 Not Available [facility] ([facility]) [address], [place], [address], 07/23/2024 10:22:19 07/23/20 24 07/23/2024 HEPAT IC FUNCT IONAL PANEL bilirubin direct 0.1 O.oo-0 .30 Not Available [facility] ([facility]) [address], [place], [address], 07/23/2024 10:22:19 07/23/20 24 07/23/2024 HEPAT IC FUNCT IONAL PANEL bilirubin total 0.40 mg/dL 0.10-1 .00 Not Available [facility] ([facility]) [address], [place], [address], 07/23/2024 10:22:19 07/23/20 24 07/23/2024 HEPAT IC FUNCT IONAL PANEL bilirubin indirect 0.30 Not Available [facility] ([facility]) [address], [place], [address], 07/23/2024 10:22:19 07/23/20 24 07/23/2024 HEPAT IC FUNCT IONAL PANEL AST (SGOT) 17 U/L 0-37 Not Available [facility] ([facility]) [address], [place], [address], 07/23/2024 10:22:19 07/23/20 24 07/23/2024 HEPAT IC FUNCT IONAL PANEL ALT (SGPT) 45 U/L 0-65 Not Available [facility] ([facility]) [address] , [place], [address], 07/23/2024 10:22:19 07/23/20 24 07/23/2024 HEPAT IC FUNCT IONAL PANEL alk phosphatase 49 U/L 46-116 Not Available [facility] ([facility]) [address], [place], [address], 07/23/2024 10:22:19 08/20/20 24 08/20/2024 HEPAT IC FUNCT IONAL PANEL total protein 7.4 g/dL 6.4-8. 2 Not Available [facility] ([facility]) [address], [place], [address], 08/20/2024 11:54:21 08/20/20 24 08/20/2024 HEPAT IC FUNCT IONAL PANEL albumin 4.1 g/dL 3.4-5. 0 Not Available [facility] ([facility]) [address] , [place], [address], 08/20/2024 11:54:21 08/20/20 24 08/20/2024 HEPAT IC FUNCT IONAL PANEL bilirubin direct 0.1 O.oo-0 .30 Not Available [facility] ([facility]) [address] , [place], [address], 08/20/2024 11:54:21 08/20/20 24 08/20/2024 HEPAT IC FUNCT IONAL PANEL bilirubin total 0.50 mg/dL 0.10-1 .00 Not Available [facility] ([facility]) [address] , [place], [address], 08/20/2024 11:54:21 08/20/20 24 08/20/2024 HEPAT IC FUNCT IONAL PANEL bilirubin indirect 0.40 Not Available [facility] ([facility]) [address] , [place], [address], 08/20/2024 11:54:21 08/20/20 24 08/20/2024 HEPAT IC FUNCT IONAL PANEL AST (SGOT) 20 U/L 0-37 Not Available [facility] ([facility]) [address], [place], [address], 08/20/2024 11:54:21 08/20/20 24 08/20/2024 HEPAT IC FUNCT IONAL PANEL ALT (SGPT) 64 U/L 0-65 Not Available [facility] ([facility]) [address], [place], [address], 08/20/2024 11:54:21 08/20/20 24 08/20/2024 HEPAT IC FUNCT IONAL PANEL alk phosphatase 53 U/L 46-116 Not Available [facility] ([facility]) [address], [place], [address], 08/20/2024 11:54:21 10/21/19 25 10/21/2024 HEPAT IC FUNCT IONAL PANEL total protein 6.9 g/dL 6.4-8. 2 Not Available [facility] ([facility]) [address], [place], [address], 10/21/2024 11:57:13 10/21/19 25 10/21/2024 HEPAT IC FUNCT IONAL PANEL albumin 3.6 g/dL 3.4-5. 0 Not Available [facility] ([facility]) [address] , [place], [address], 10/21/2024 11:57:13 10/21/19 25 10/21/2024 HEPAT IC FUNCT IONAL PANEL bilirubin direct 0.2 O.oo-0 .30 Not Available [facility] ([facility]) [address] [place], [address], 10/21/2024 11:57:13 10/21/19 25 10/21/2024 HEPAT IC FUNCT IONAL PANEL bilirubin total 0.50 mg/dL 0.10-1 .00 Not Available [facility] ([facility]) [address] [place], [address], 10/21/2024 11:57:13 10/21/19 25 10/21/2024 HEPAT IC FUNCT IONAL PANEL bilirubin indirect 0.30 Not Available [facility] ([facility]) [address] , [place], [address], 10/21/2024 11:57:13 10/21/19 25 10/21/2024 HEPAT IC FUNCT IONAL PANEL AST (SGOT) 23 U/L 0-37 Not Available [facility] ([facility]) [address] , [place], [address], 10/21/2024 11:57:13 10/21/19 25 10/21/2024 HEPAT IC FUNCT IONAL PANEL ALT (SGPT) 59 U/L 0-65 Not Available [facility] ([facility]) [address] , [place], [address], 10/21/2024 11:57:13 10/21/19 25 10/21/2024 HEPAT IC FUNCT IONAL PANEL alk phosphatase 55 U/L 46-116 Not Available [facility] ([facility]) [address] , [place], [address], 10/21/2024 11:57:13 10/21/19 25 10/21/2024 CBC AUTO W DIFF WBC 5.0 K/uL 4.0-10 .5 Not Available [facility] ([facility]) [address] , [place], [address], 10/21/2024 14:27:12 10/21/19 25 10/21/2024 CBC AUTO W DIFF RBC 3.6 M/mm3 4.7-6. 1 low Not Available [facility] ([facility]) [address], [place], [address], 10/21/2024 14:27:12 10/21/19 25 10/21/2024 CBC AUTO W DIFF HGB 9.5 gm/dL 13.5-1 8.0 low Not Available [facility] ([facility]) [address], [place], [address], 10/21/2024 14:27:12 10/21/19 25 10/21/2024 CBC AUTO W DIFF HCT 32.8 % 42.0-5 2.0 low Not Available [facility] ([facility]) [address] , [place], [address], 10/21/2024 14:27:12 10/21/19 25 10/21/2024 CBC AUTO W DIFF MCV 90.1 fL 78-100 Not Available [facility] ([facility]) [address] , [place], [address], 10/21/2024 14:27:12 10/21/19 25 10/21/2024 CBC AUTO W DIFF MCH 26.1 pg 27-31 low Not Available [facility] ([facility]) [address] , [place], [address], 10/21/2024 14:27:12 10/21/19 25 10/21/2024 CBC AUTO W DIFF MCHC 29.0 g/dL 32-36 low Not Available [facility] ([facility]) [address] , [place], [address], 10/21/2024 14:27:12 10/21/19 25 10/21/2024 CBC AUTO W DIFF RDW 19.9 % 11.5-1 4.0 high Not Available [facility] ([facility]) [address] [place], [address], 10/21/2024 14:27:12 10/21/19 25 10/21/2024 CBC AUTO W DIFF platelet count 237 K/uL 150-45 0 Not Available [facility] ([facility]) [address] , [place], [address], 10/21/2024 14:27:12 10/21/19 25 10/21/2024 CBC AUTO W DIFF MPV 10.1 fL 6-9.5 high Not Available [facility] ([facility]) [address] [place], [address], 10/21/2024 14:27:12 10/21/19 25 10/21/2024 CBC AUTO W DIFF neutrophil% 87.2 % 43-65 high Not Available [facility] ([facility]) [address] [place], [address], 10/21/2024 14:27:12 10/21/19 25 10/21/2024 CBC AUTO W DIFF lymphocyte% 6.4 % 20.5-4 5.5 low Not Available [facility] ([facility]) [address] [place], [address], 10/21/2024 14:27:12 10/21/19 25 10/21/2024 CBC AUTO W DIFF monocyte% 4.6 % 5.5-11 .7 low Not Available [facility] ([facility]) [address] [place], [address], 10/21/2024 14:27:12 10/21/19 25 10/21/2024 CBC AUTO W DIFF eosinophil% 0.2 % 0.9-2. 9 low Not Available [facility] ([facility]) [address] [place], [address], 10/21/2024 14:27:12 10/21/19 25 10/21/2024 CBC AUTO W DIFF basophil% 0.6 % 0.2-1. 0 Not Available [facility] ([facility]) [address] [place], [address], 10/21/2024 14:27:12 10/21/19 25 10/21/2024 CBC AUTO W DIFF immature granulocytes % 1.0 % 0.0-0. 8 high Not Available [facility] ([facility]) [address], [place], [address], 10/21/2024 14:27:12 10/21/19 25 10/21/2024 CBC AUTO W DIFF nucleated red blood cells % 0.6 % Not Available [facility] ([facility]) [address], [place], [address], 10/21/2024 14:27:12 10/21/19 25 10/21/2024 CBC AUTO W DIFF neutrophil# 4.4 K/uL 2.2-4. 8 Not Available [facility] ([facility]) [address], [place], [address], 10/21/2024 14:27:12 10/21/19 25 10/21/2024 CBC AUTO W DIFF lymphocyte# 0.3 cell/ mcL 1.3-2. 9 low Not Available [facility] ([facility]) [address], [place], [address], 10/21/2024 14:27:12 10/21/19 25 10/21/2024 CBC AUTO W DIFF monocyte# 0.2 cell/ mcL 0.3-0. 8 low Not Available [facility] ([facility]) [address], [place], [address], 10/21/2024 14:27:12 10/21/19 25 10/21/2024 CBC AUTO W DIFF eosinophil# 0.0 cell/ mcL 0-0.2 Not Available [facility] ([facility]) [address], [place], [address], 10/21/2024 14:27:12 10/21/19 25 10/21/2024 CBC AUTO W DIFF basophil# 0.0 cell/ mcL 0.0-1. 0 Not Available [facility] ([facility]) [address], [place], [address], 10/21/2024 14:27:12 10/21/19 25 10/21/2024 CBC AUTO W DIFF immature gramulocytes # 0.05 K/uL Not Available [facility] ([facility]) [address], [place], [address], 10/21/2024 14:27:12 10/21/19 25 10/21/2024 CBC AUTO W DIFF nucleated red blood cells # 0.03 K/uL Not Available [facility] ([facility]) [address], [place], [address], 10/21/2024 14:27:12 10/21/19 25 10/21/2024 CBC AUTO W DIFF manual differential NO Not Available [facility] ([facility]) [address] , [place], [address], 10/21/2024 14:27:12 10/21/19 25 10/21/2024 CBC AUTO W DIFF platelet estimate ADEQUA TE adequa te Not Available [facility] ([facility]) [address], [place], [address], 10/21/2024 14:27:12 10/21/19 25 10/21/2024 CBC AUTO W DIFF platelet morphology NORMAL normal Not Available [facility] ([facility]) [address] , [place], [address], 10/21/2024 14:27:12 10/21/19 25 10/21/2024 CBC AUTO W DIFF RBC morphology NORMAL normal Not Available [facility] ([facility]) [address] , [place], [address], 10/21/2024 14:27:12 10/21/19 25 10/21/2024 CBC AUTO W DIFF anisocytosis SLIGHT none seen Not Available [facility] ([facility]) [address], [place], [address], 10/21/2024 14:27:12 10/21/19 25 10/21/2024 CBC AUTO W DIFF poikilocytos is SLIGHT none seen Not Available [facility] ([facility]) [address], [place], [address], 10/21/2024 14:27:12 12/22/19 25 12/21/2024 CBC AUTO W DIFF WBC 6.1 K/uL 4.0-10 .5 Not Available [facility] ([facility]) [address], [place], [address], 12/21/2024 14:21:17 12/22/19 25 12/21/2024 CBC AUTO W DIFF RBC 3.6 M/mm3 4.7-6. 1 low Not Available [facility] ([facility]) [address], [place], [address], 12/21/2024 14:21:17 12/22/19 25 12/21/2024 CBC AUTO W DIFF HGB 10.1 gm/dL 13.5-1 8.0 low Not Available [facility] ([facility]) [address], [place], [address], 12/21/2024 14:21:17 12/22/19 25 12/21/2024 CBC AUTO W DIFF HCT 33.0 % 42.0-5 2.0 low Not Available [facility] ([facility]) [address], [place], [address], 12/21/2024 14:21:17 12/22/19 25 12/21/2024 CBC AUTO W DIFF MCV 90.7 fL 78-100 Not Available [facility] ([facility]) [address], [place], [address], 12/21/2024 14:21:17 12/22/19 25 12/21/2024 CBC AUTO W DIFF MCH 27.7 pg 27-31 Not Available [facility] ([facility]) [address], [place], [address], 12/21/2024 14:21:17 12/22/19 25 12/21/2024 CBC AUTO W DIFF MCHC 30.6 g/dL 32-36 low Not Available [facility] ([facility]) [address], [place], [address], 12/21/2024 14:21:17 12/22/19 25 12/21/2024 CBC AUTO W DIFF RDW 22.9 % 11.5-1 4.0 high Not Available [facility] ([facility]) [address] , [place], [address], 12/21/2024 14:21:17 12/22/19 25 12/21/2024 CBC AUTO W DIFF platelet count 275 K/uL 150-45 0 Not Available [facility] ([facility]) [address] , [place], [address], 12/21/2024 14:21:17 12/22/19 25 12/21/2024 CBC AUTO W DIFF MPV 9.1 fL 6-9.5 Not Available [facility] ([facility]) [address] , [place], [address], 12/21/2024 14:21:17 12/22/19 25 12/21/2024 CBC AUTO W DIFF neutrophil% 80.2 % 43-65 high Not Available [facility] ([facility]) [address] [place], [address], 12/21/2024 14:21:17 12/22/19 25 12/21/2024 CBC AUTO W DIFF lymphocyte% 8.4 % 20.5-4 5.5 low Not Available [facility] ([facility]) [address] [place], [address], 12/21/2024 14:21:17 12/22/19 25 12/21/2024 CBC AUTO W DIFF monocyte% 9.4 % 5.5-11 .7 Not Available [facility] ([facility]) [address], [place], [address], 12/21/2024 14:21:17 12/22/19 25 12/21/2024 CBC AUTO W DIFF eosinophil% 1.0 % 0.9-2. 9 Not Available [facility] ([facility]) [address] [place], [address], 12/21/2024 14:21:17 12/22/19 25 12/21/2024 CBC AUTO W DIFF basophil% 0.5 % 0.2-1. 0 Not Available [facility] ([facility]) [address] [place], [address], 12/21/2024 14:21:17 12/22/19 25 12/21/2024 CBC AUTO W DIFF immature granulocytes % 0.5 % 0.0-0. 8 Not Available [facility] ([facility]) [address] [place], [address], 12/21/2024 14:21:17 12/22/19 25 12/21/2024 CBC AUTO W DIFF nucleated red blood cells % 0.0 % Not Available [facility] ([facility]) [address] [place], [address], 12/21/2024 14:21:17 12/22/19 25 12/21/2024 CBC AUTO W DIFF neutrophil# 4.9 K/uL 2.2-4. 8 high Not Available [facility] ([facility]) [address] [place], [address], 12/21/2024 14:21:17 12/22/19 25 12/21/2024 CBC AUTO W DIFF lymphocyte# 0.5 cell/ mcL 1.3-2. 9 low Not Available [facility] ([facility]) [address], [place], [address], 12/21/2024 14:21:17 12/22/19 25 12/21/2024 CBC AUTO W DIFF monocyte# 0.6 cell/ mcL 0.3-0. 8 Not Available [facility] ([facility]) [address], [place], [address], 12/21/2024 14:21:17 12/22/19 25 12/21/2024 CBC AUTO W DIFF eosinophil# 0.1 cell/ mcL 0-0.2 Not Available [facility] ([facility]) [address], [place], [address], 12/21/2024 14:21:17 12/22/19 25 12/21/2024 CBC AUTO W DIFF basophil# 0.0 cell/ mcL 0.0-1. 0 Not Available [facility] ([facility]) [address], [place], [address], 12/21/2024 14:21:17 12/22/19 25 12/21/2024 CBC AUTO W DIFF immature gramulocytes # 0.03 K/uL Not Available [facility] ([facility]) [address] [facility], [place], [address], 12/21/2024 14:21:17 12/22/19 25 12/21/2024 CBC AUTO W DIFF nucleated red blood cells # 0.00 K/uL Not Available [facility] ([facility]) [address] [facility], [place], [address], 12/21/2024 14:21:17 12/22/19 25 12/21/2024 CBC AUTO W DIFF manual differential NO Not Available [facility] ([facility]) [address] [place], [address], 12/21/2024 14:21:17 12/22/19 25 12/21/2024 HEPAT IC FUNCT IONAL PANEL total protein 7.2 g/dL 6.4-8. 2 Not Available [facility] ([facility]) [address], [place], [address], 12/21/2024 14:51:30 12/22/19 25 12/21/2024 HEPAT IC FUNCT IONAL PANEL albumin 4.1 g/dL 3.4-5. 0 Not Available [facility] ([facility]) [address], [place], [address], 12/21/2024 14:51:30 12/22/19 25 12/21/2024 HEPAT IC FUNCT IONAL PANEL bilirubin direct 0.0 O.oo-0 .30 Not Available [facility] ([facility]) [address], [place], [address], 12/21/2024 14:51:30 12/22/19 25 12/21/2024 HEPAT IC FUNCT IONAL PANEL bilirubin total 0.40 mg/dL 0.10-1 .00 Not Available Psych[facility] ([facility]) [address], [place], [address], 12/21/2024 14:51:30 12/22/19 25 12/21/2024 HEPAT IC FUNCT IONAL PANEL bilirubin indirect 0.40 Not Available [facility] ([facility]) [address], [place], [address], 12/21/2024 14:51:30 12/22/19 25 12/21/2024 HEPAT IC FUNCT IONAL PANEL AST (SGOT) 32 U/L 0-37 Not Available [facility] [facility] [address], [place], [address], 12/21/2024 14:51:30 12/22/19 25 12/21/2024 HEPAT IC FUNCT IONAL PANEL ALT (SGPT) 50 U/L 0-65 Not Available [facility] ([facility]) [address], [place], [address], 12/21/2024 14:51:30 12/22/19 25 12/21/2024 HEPAT IC FUNCT IONAL PANEL alk phosphatase 122 U/L 46-116 high Not Available [facility] ([facility]) [address], [place], [address], 12/21/2024 14:51:30 06/11/20 24 05/03/2024 XR, chest , 2 view No observ ation record ed. [address], [place], [address], 08/09/2024 12:45:51 Result Notes None recorded. 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 Procedures Surgical History Date Name Laterality Status Provider Name and Address Organization Details Recorded Time 09/15/18 98 Cardiovascular Surgery completed Ben Munoz [place] [facility] [place] & [place] 08/05/2022 13:01:39 09/15/18 98 Other completed Ben BEVERLY - [facility] & [place] 08/05/2022 13:01:39 procedure on knee completed Ben BEVERLY - [facility] & [place] 08/05/2022 13:05:30 Imaging Results None recorded. Procedure [...] MOUTH EVERY 8 HOURS NEEDED FOR PAIN MAY CAUSE DROWSINES S active Not Available [...] Not Available Not Available Not Avai lable methocarbam ol 750 mg tablet TAKE ONE TABLET BY [...] Available Not Available No t Available prednisone 1 mg tablet take 1-4 TABLETS BY MOUTH EVERY DAY DIRECTED active Not Available Not Available No t Available calcitonin (salmon) 200 unit/actuat ion nasal spray INSTILL ONE SPRAY into 1 nostril EVERY DAY (alternat e nostrils) active Not Available Not Available No t [...] t Available hydrochloro thiazide 25 mg tablet TAKE ONE TABLET BY MOUTH [...] Not Available No t Available amoxicillin 500 mg-fabioassiu m clavulanate 125 mg tablet TAKE ONE [...] completed Not Available Not Available Not Available calcium 600 mg (as carbonate)- vitamin D3 12.5 mcg (500 unit) capsule TAKE ONE CAPSULE BY MOUTH TWICE DAILY active Not Available Not Available No t Available dapaglifloz in propanediol 10 mg tablet [...] Updated DateTime 5 187.96 cm 26.1 kg/m2 31632.2 5 g 98.2 [degF] 67 /min 92 % 92 % 94 mm[Hg] 59 mm[Hg] Preeti Winche[place] - [facility] & [place] 5 10:40:12 Date Recorded Body height Heart rate Oxygen saturation Oxygen saturation in Arterial blood by Pulse oximetry Heart rate Body temperature Body mass index (BMI) Body weight Systolic blood pressure Diastolic blood pressure Provider Name and Address Organization Details Last Updated DateTime 5 187.96 cm 79 /min 94 % 94 % 79 /min 98 [degF] 25.5 kg/m2 82819.8 8 g 122 mm[Hg] 67 mm[Hg] Tammy Jaimes [facility] & [place] 5 13:43:20 Date Recorded Body height Heart rate Oxygen saturation Oxygen saturation in Arterial blood by Pulse oximetry Body temperature Body mass index (BMI) Body weight Systolic blood pressure Diastolic blood pressure Provider Name and Address Organization Details Last Updated DateTime 4 187.96 cm 54 /min 97 % 97 % 96.6 [degF] 24.9 kg/m2 88686.9 2 g 120 mm[Hg] 82 mm[Hg] Comfort Grimaldo [facility] & [place] 4 10:13:15 Date Recorded Body height Oxygen saturation Oxygen saturation in Arterial blood by Pulse oximetry Heart rate Systolic blood pressure Diastolic blood pressure Provider Name and Address Organization Details Last Updated DateTime 4 187.96 cm 91 % 91 % 56 /min 133 mm[Hg] 74 mm[Hg] [facility] & [place] 4 09:22:06 Date Recorded Body height Body mass index (BMI) Body weight Body temperature Heart rate Oxygen saturation Oxygen saturation in Arterial blood by Pulse oximetry Systolic blood pressure Diastolic blood pressure Provider Name and Address Organization Details Last Updated DateTime 4 187.96 cm 25.3 kg/m2 33256.7 g 96.7 [degF] 66 /min 93 % 93 % 130 mm[Hg] 70 mm[Hg] Preeti GAINES [facility] & [place] 4 10:33:55 Social History Question Answer Notes LastModified by Tallyfy Details LastModified Time Tobacco Smoking Status [facility] [place] 08/05/2022 13:01:35 Do You Have An Advance Directive? Yes [email or web address] Information not available 08/05/2022 Are You Blind Or Do You Have Difficulty Seeing? No [email or web address] Information not available 08/05/2022 What Was The Date Of Your Most Recent Tobacco Screening? 06/21/2024 [email or web address] Information not available 06/24/2024 Are You Passively Exposed To Smoke? No [email or web address] Information not available 08/05/2022 How Much Tobacco Do You Smoke? No [email or web address] Information not available 08/05/2022 How Many Years Have You Smoked Tobacco? 30 Years In The Past [email or web address] Information not available 08/05/2022 Sex: Male Functional Status Question Answer Note LastModified by Organizat ion Details LastModified Time Do you use any illicit or recreational drugs? No [email or web address] Information not available 08/05/2022 What is your level of alcohol consumption? None [email or web address] Information not available 08/05/2022 Do you or have you ever used smokeless tobacco? Never used smokeless tobacco [email or web address] Information not available 08/05/2022 What is your exercise level? Occasional [email or web address] Information not available 08/05/2022 Mental Status Question Answer Note LastModified by Organization D etails LastModified Time Do you feel stressed (tense, restless, nervous, or anxious, or unable to sleep at night)? [id number] [email or web address] Information not available 08/05/2022 Family History Relationship Description Onset Age of this Age Resolved Age Notes LastModified by Organization Details LastModified Time Mother Myocardial infarction dec [email or web address] Not available 08/05 13:03:49 Mother Kidney disease [...] SNOMED-CT Code Diagnosis ICD10 Code Diagnosis Note [id number] Sanket Schaeffer Jr, MD [facility] [address] [place] [address] [employer] [phone] 08/05/2022 12:30:55 08/05/2022 13:26:38 Benign prostatic hyperplasia with outflow obstruction 839422658 N40.1 Patient with lower urinary tract symptoms due to BPH. He is doing well on the tamsulosin and is to continue. Erectile dysfunction 860 699734 F52.21 patient with history of erectile dysfunctio n. He states he does well with the sildenafil 100 mg p.r.n.. [id number] Sanket Schaeffer Jr, MD [facility] [address] [place] [address] [employer] [phone] 02/06/2023 13:40:33 02/06/2023 14:19:48 Prostate specific antigen above reference range 614390490 R97.20 Patient with history of elevated PSA. [...] tract symptoms due to benign prostatic hypertrophy 9653240878 9101 N40.1 patient with history of BPH. He is voiding well on the tamsulosin and is to continue. Erectile dysfunction 860 342688 F52.21 patient with history of erectile dysfunctio n. He states he does well with the sildenafil 100 mg p.r.n.. [id number] Sanket Schaeffer Jr, MD [facility] [address] [address] 08/13/2023 08:41:10 08/13/2023 09:26:44 Prostate specific antigen above reference range 826808931 R97.20 Patient with history of elevated PSA. His recent PSA 2 weeks ago Was 11.5. This is we will higher than his previous of 9.6. It has been as high as 10.1 in the past. We again discussed prostate biopsy versus monitoring and he wishes to continue monitoring . Lower urin matty tract symptoms due to benign prostatic hypertrophy 9640314242 9101 N40.1 patient with history of BPH. [...] direction at this time. Erectile dysfunction 860 520962 F52.21 patient with history of erectile dysfunctio n. He states he does well with the sildenafil 100 mg p.r.n.. We have discussed not taking the sildenafil within 4 hours of the Flomax. [id number] Sanket Schaeffer Jr, MD [facility] [address] [address] 02/13/2024 09:03:41 02/13/2024 09:40:36 Prostate specific antigen above reference range 749733336 R97.20 Patient with history of elevated PSA. [...] tract symptoms due to benign prostatic hypertrophy 5994617108 9101 N40.1 patient with history of BPH. patient states some increased frequency and nocturia. patient has not improved in the past with increasing his tamsulosin 2 a day or with oxybutynin . He complains of decreased flow. We would discussed other options but they require surgical procedures as well. [id number] Sanket Schaeffer Jr, MD [facility] [address] [address] 11/12/2023 09:13:53 11/12/2023 10:07:59 Lower urinary tract symptoms due to benign prostatic hypertrophy 3649597841 9101 N40.1 patient with history of BPH. [...] Prostate s pecific antigen above reference range 665707003 R97.20 Patient with history of elevated PSA. [...] PSA in 3 months. Erectile dysfunction 860 148235 F52.21 patient with history of erectile dysfunctio n. He states he does well with the sildenafil 100 mg p.r.n.. We have discussed not taking the sildenafil within 4 hours of the Flomax. 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 Patient is negative for any pulmonary symptoms. Chest xray normal. Patient is on suppressiv e medication s for PMR. Patient takes Warfarin due to his mechanical heart valve. Will start Isoniazid and Vitamin B6. Will see patient back in 1 month. Plan will be to complete a 9 month regimen. All questions answered. [id number] [facility] [facility] [address] [place] [address] 07/23/2024 09:14:15 07/23/2024 09:34:06 Inactive tuberculosis 84944985 Z22.7 History of being in the . [...] 1 month. High risk medication monitoring indicated 1209010017 8384084 Z76.89 Will check a CBC and hepatic function panel due to the residential use of Isoniazid. Will monitor weight regularly and check for adverse effects. [id number] [facility] -[address] [facility] [address] [place] [address] 08/20/2024 10:25:17 08/20/2024 10:44:10 Inactive tuberculosis 08947477 Z22.7 History of being in the . [...] 1 month. High risk medication monitoring indicated 1496354310 7048691 Z76.89 Will check a CBC and hepatic function panel due to the residential use of Isoniazid. Will monitor weight regularly and check for adverse effects. [id number] [facility] -[address] [facility] [address] [place] [address] 10/21/2024 10:32:10 10/21/2024 10:47:20 Inactive tuberculosis 53224462 Z22.7 History of being in the . [...] 2 months. 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 Will monitor weight regularly and check for adverse effects. [id number] Nery [place] in, PHOTOGRAPHY COORDINATOR [facility] Infectiou s Disease -[address] [place] [address] 12/21/2024 13:36:37 12/21/2024 13:51:52 Inactive tuberculosis 99829837 Z22.7 History of being in the . [...] 3 months. 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 Will monitor weight regularly [...] 1 *SELF PAY* Xu Lezama 12/22/2024 2 [facility] [place] Martin Lezama [id number] Martin Lezama 12/18/2024 1 [place] (MEDICARE[place] Martin Lezama [id number] Martin Lezama Notes Date Note Type Note [...] coumadin dose at home. Nery Lee APRN [address], [place], [address], [facility] & [place] 06/24/2024 10:58:43 07/23/2024 text/html patient presents to [...] denies any respiratory symptoms. Denies any fevers. [address], [place], [address], [facility] & [place] 07/23/2024 09:37:00 08/20/2024 text/html patient presents to [...] 01, 2024. He will start radiation treatment. [address], [place], [address], [place] - [facility] & [place] 08/20/2024 10:49:26 10/21/2024 text/html patient presents to [...] cancer. Nery Lee APRN [address], [place], [address], [facility] [place] 10/21/2024 11:35:54 12/21/2024 text/html patient presents to [...] cancer. Nery Lee APRN [address], [place], [address], [place] [facility] & [place] 12/21/2024 13:51:11
--- OUTSIDE RECORDS SUMMARY | 2025-03-14 15:19 | XMS_ITS | Clinical Summary ---
Author Organization [employer] ([place], [place], [place], [place]) Address [address] [place] [address] Care Team Providers Care Risk Control Officer Name Role Phone Tristan Billings DO Primary Care Provider [phone] Allergies No known active allergies Medications glipiZIDE [...] any time in the past 12 m [facility], were you homeless or living in a care home (including now)? No 08/14/2024 Utilities Answer Date [...] living situation today? I have a [facility] place to live 08/10/2024 Think about [...] Do you speak a language other than [place] at [facility]? No 08/10/2024 Do you want help with school or training? For example, starting or completing job training or getting a high school diploma, GED or equivalent. No 08/10/2024 Physical Activity Answer Date Recorded Number of minutes of exercise per week 0 08/10/2024 Self Management Answer Date Recorded Because of a physical, [...] you used [place] legal drugs? 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
--- OUTSIDE RECORDS SUMMARY | 2025-03-14 15:19 | XMS_ITS | Referral Summary ---
Author Organization [employer] ([place], [place], [place], [place]) Address [address] [place] [address] Care Team Providers Care Weapons Mechanic Name Role Phone Tristan Billings DO Primary Care Provider [phone] Allergies No known active allergies Medications glipiZIDE [...] any time in the past 12 m [facility], were you homeless or living in a snf (including now)? No 08/14/2024 Utilities Answer Date [...] you? Never 08/10/2024 How often does anyone, [place] family and friends, threaten you with harm? Never 08/10/2024 How often does anyone, [place] family and friends, scream or curse [...] Do you speak a language other than Indian at [facility]? 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
--- OUTSIDE RECORDS SUMMARY | 2025-03-14 15:19 | XMS_ITS | Data Portability ---
Author Organization [facility] MARY NicholsS GORHAM CLOSED Address [address] [address] [place] [address] Assessment Encounter Date Assessment Date Assessment LastModified [...] Not available Not available RECHECK 2024 01:30P Liz LAMB MD Not available Not available Not available Lab urinalysi s panel, auto [address] [facility], [address], [address], [place], [address], 02/28/2025 14:44:08 PSA, serum or plasma [address] [facility], [address], [address], [place], [address], 02/28/2025 14:44:08 urinalysi s panel, auto [address] [facility], [address], [address], [place], [address], 09/05/2024 22:40:08 Referral None recorded. Procedures None recorded. Surgeries None recorded. Imaging None recorded. Medication Orders levofloxa brittney 750 mg tablet 2023 [facility], [address] [place] [address] [address], [place], [place], [id number], 07/26/2024 13:18:08 oxybutyni n chloride ER 5 mg tablet,ex tended release 24 hr 2023 [facility], [address] [place] [address] [address], [place], [place], [id number], 07/26/2024 13:18:07 tamsulosi n 0.4 mg capsule 2023 024 [facility], [address] [facility], [place], [address], 07/25/2024 14:38:23 Patient TargetsNo targets recorded. Patient Instructions Encounter Date Encounter Id Patient Instructions Last Modified By Organization Details Last Modified Time 08/09/2024 [id number] learning about depression [email or web address] Not available 08/09/2024 21:12:50 Reason for Referral None Reported. Results Created Date Observation Date Name Description Value Unit Range Abnormal Flag Note LastModifiedBy Organization Detail LastModifiedTime 08/04/20 24 08/04/2024 PROTH ROMBI N TIME prothrombin time 11.5 secon ds 9.2-11 .0 high Not Available [facility] [address] [place], [address], 08/04/2024 08:45:13 08/04/2008/04/2024 PROTH ROMBI N TIME [...] NICAL PROST HETIC VALVE S Not Available [facility] [address] [place], [address], 08/04/2024 08:45:13 08/04/2008/04/2024 SURGI LAVERNE surgical SEE BELOW abnormal Surgi laverne Patho logy Repor t NAME: ALVARO SHARIF RD PATH: SS-24 [id number] 1 DATE of : 09/02 7 Copy to: SUPPL EMENT AL SECTI ON A reque st for Genom ic prost ate score was recei ha 08-[address] Timot hy Adkin s. The test to be perfo rmed on tissu e from case SS-24 -0950 1. The case repor t, slide s, [...] harpal submi tted in A1-A2 . B) Elianae nt's name and date of verif [...] 14:29 Page 1 of 1 Not Available [facility] [address] [place] [address], [address], 08/10/2024 13:53:39 09/03/20 24 09/03/2024 urina lysis panel , auto Unknown Analyte Clean Catch Not Available [facility] [address], [place], [address], 09/03/2024 12:05:04 09/03/20 24 09/03/2024 urina lysis panel , auto Unknown Analyte Yellow Not Available [facility] [address], [place], [address], 09/03/2024 12:05:04 09/03/20 24 09/03/2024 urina lysis panel , auto Unknown Analyte Clear Not Available [facility] [place] [address], [place], [address], 09/03/2024 12:05:04 09/03/20 24 09/03/2024 urina lysis panel , auto Unknown Analyte 1.015 Not Available [facility] [address], [place], [address], 09/03/2024 12:05:04 09/03/20 24 09/03/2024 urina lysis panel , auto Unknown Analyte 1.003- 1.035 Not Available [facility] [address], [place], [address], 09/03/2024 12:05:04 09/03/20 24 09/03/2024 urina lysis panel , auto Unknown Analyte 5.0 Not Available [facility] [address], [place], [address], 09/03/2024 12:05:04 09/03/20 24 09/03/2024 urina lysis panel , auto Unknown Analyte 5.0-8. 0 Not Available [facility] [address], [place], [address], 09/03/2024 12:05:04 09/03/20 24 09/03/2024 urina lysis panel , auto Unknown Analyte Negati ve Not Available [facility] [address], [place], [address], 09/03/2024 12:05:04 09/03/20 24 09/03/2024 urina lysis panel , auto Unknown Analyte Negati ve Not Available [facility] [address], [place], [address], 09/03/2024 12:05:04 09/03/20 24 09/03/2024 urina lysis panel , auto Unknown Analyte Negati ve Not Available [facility] [address], [place], [address], 09/03/2024 12:05:04 09/03/20 24 09/03/2024 urina lysis panel , auto Unknown Analyte Negati ve Not Available [facility] [address], [place], [address], 09/03/2024 12:05:04 09/03/20 24 09/03/2024 urina lysis panel , auto Unknown Analyte Negati ve Not Available [facility] [address], [place], [address], 09/03/2024 12:05:04 09/03/20 24 09/03/2024 urina lysis panel , auto Unknown Analyte Negati ve Not Available [facility] [address], [place], [address], 09/03/2024 12:05:04 09/03/20 24 09/03/2024 urina lysis panel , auto Unknown Analyte >1000 mg/dl Not Available [facility] [address], [place], [address], 09/03/2024 12:05:04 09/03/20 24 09/03/2024 urina lysis panel , auto Unknown Analyte Normal Not Available [facility] [address], [place], [address], 09/03/2024 12:05:04 09/03/20 24 09/03/2024 urina lysis panel , auto Unknown Analyte Negati ve Not Available [facility] [address], [place], [address], 09/03/2024 12:05:04 09/03/2009/03/2024 urina lysis panel , auto Unknown Analyte Negati ve Not Available [facility] [address], [place], [address], 09/03/2024 12:05:04 09/03/20 24 09/03/2024 urina lysis panel , auto Unknown Analyte Normal Not Available [facility] [address], [place], [address], 09/03/2024 12:05:04 09/03/2009/03/2024 urina lysis panel , auto Unknown Analyte Normal 1 mg/dl Not Available [facility] [address], [place], [address], 09/03/2024 12:05:04 09/03/20 24 09/03/2024 urina lysis panel , auto Unknown Analyte Negati ve Not Available [facility] [address], [place], [address], 09/03/2024 12:05:04 09/03/20 24 09/03/2024 urina lysis panel , auto Unknown Analyte Negati ve Not Available [facility] [address], [place], [address], 09/03/2024 12:05:04 09/03/20 24 09/03/2024 urina lysis panel , auto Unknown Analyte 250 Arslan/ul Not Available [facility] [address], [place], [address], 09/03/2024 12:05:04 09/03/20 24 09/03/2024 urina lysis panel , auto Unknown Analyte Negati ve Not Available [facility] [address], [place], [address], 09/03/2024 12:05:04 02/29/20 25 02/28/2025 urina lysis panel , auto Unknown Analyte Clean Catch Not Available [facility] [address], [place], [address], 02/28/2025 14:04:51 02/29/20 25 02/28/2025 urina lysis panel , auto Unknown Analyte Yellow Not Available [facility] [address], [place], [address], 02/28/2025 14:04:51 02/29/20 25 02/28/2025 urina lysis panel , auto Unknown Analyte Clear Not Available [facility] [address], [place], [address], 02/28/2025 14:04:51 02/29/20 25 02/28/2025 urina lysis panel , auto Unknown Analyte 1.020 Not Available [facility] [address], [place], [address], 02/28/2025 14:04:51 02/29/20 25 02/28/2025 urina lysis panel , auto Unknown Analyte 1.003 - 1.030 Not Available [facility] [address], [place], [address], 02/28/2025 14:04:51 02/29/20 25 02/28/2025 urina lysis panel , auto Unknown Analyte 5.0 Not Available [facility] [address], [place], [address], 02/28/2025 14:04:51 02/29/20 25 02/28/2025 urina lysis panel , auto Unknown Analyte 5.0 - 8.0 Not Available [facility] [address], [place], [address], 02/28/2025 14:04:51 02/29/20 25 02/28/2025 urina lysis panel , auto Unknown Analyte 75 Iveth/uL Not Available [facility] [address], [place], [address], 02/28/2025 14:04:51 02/29/20 25 02/28/2025 urina lysis panel , auto Unknown Analyte Negati ve Not Available [facility] [address], [place], [address], 02/28/2025 14:04:51 02/29/20 25 02/28/2025 urina lysis panel , auto Unknown Analyte Negati ve Not Available [facility] [address], [place], [address], 02/28/2025 14:04:51 02/29/20 25 02/28/2025 urina lysis panel , auto Unknown Analyte Negati ve Not Available [facility] [address], [place], [address], 02/28/2025 14:04:51 02/29/20 25 02/28/2025 urina lysis panel , auto Unknown Analyte Trace Not Available [facility] [address], [place], [address], 02/28/2025 14:04:51 02/29/20 25 02/28/2025 urina lysis panel , auto Unknown Analyte Negati ve Not Available [facility] [address], [place], [address], 02/28/2025 14:04:51 02/29/20 25 02/28/2025 urina lysis panel , auto Unknown Analyte >1000 mg/dL Not Available [facility] [address], [place], [address], 02/28/2025 14:04:51 02/29/20 25 02/28/2025 urina lysis panel , auto Unknown Analyte Normal Not Available [facility] [address], [place], [address], 02/28/2025 14:04:51 02/29/20 25 02/28/2025 urina lysis panel , auto Unknown Analyte Negati ve Not Available [facility] [address], [place], [address], 02/28/2025 14:04:51 02/29/20 25 02/28/2025 urina lysis panel , auto Unknown Analyte Negati ve Not Available [facility] [address], [place], [address], 02/28/2025 14:04:51 02/29/20 25 02/28/2025 urina lysis panel , auto Unknown Analyte Normal Not Available [facility] [address], [place], [address], 02/28/2025 14:04:51 02/29/20 25 02/28/2025 urina lysis panel , auto Unknown Analyte Normal Not Available [facility] [address], [place], [address], 02/28/2025 14:04:51 02/29/20 25 02/28/2025 urina lysis panel , auto Unknown Analyte 1 mg/dL Not Available [facility] [address], [place], [address], 02/28/2025 14:04:51 02/29/20 25 02/28/2025 urina lysis panel , auto Unknown Analyte Negati ve Not Available [facility] [address], [place], [address], 02/28/2025 14:04:51 02/29/20 25 02/28/2025 urina lysis panel , auto Unknown Analyte 50 Arslan/uL Not Available [facility] [address], [place], [address], 02/28/2025 14:04:51 02/29/20 25 02/28/2025 urina lysis panel , auto Unknown Analyte Negati ve Not Available [facility] [address], [place], [address], 02/28/2025 14:04:51 06/22/20 24 06/22/2024 MRI, pelvi s, w/wo contr ast [facility] [address] [facility] [place] [address] Patien t Name: TRISHA Mireles OVERMA N [...] st (1 [place] [address]- 325-02 ) IV. 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 3. Semina l vesicl es grossl y unrema rkable 4. No defini te indica tion of extrap rostat ic diseas e noted Interp reted By: Tristan Escalona MD Electr onical ly Signed By: Tristan Escalona MD on 024 2:28 PM [email or web address] [facility] [address], [place], [address], 07/23/2024 10:05:21 09/01/20 24 09/01/2024 PET-C T, skull base to mid-t high scan [address] [place] [address] Patien t Name: TRISHA Mireles OVERDENAE N Patien t : 1944 Patien t [...] was GFR =50 6.2 mCi Ga-68 PSMA ([facility] [address]9688- 100-64 ) was inject ed IV. After [...] 350 (1 x 50 ml bottle of [facility] 0407-1 414-89 ) admini stered [...] thy. There is adenop athy in the management internship al iliac region and along the [...] Escalona MD on 2023 12:24 PM INTERFACE [facility] [address], [address], 09/01/2024 12:29:17 09/27/19 25 09/27/2024 MRI, pelvi s, w/o contr ast [place] [address] [place] [address] Patien t Name: TRISHA Mireles OVERMA N [...] 43 throug h 64 of series # 1639. SPACE- OAR HYDROG EL: No gel is [...] Escalona MD on 025 4:20 PM INTERFACE [facility] [address] [place] [address], [address], 09/27/2024 16:25:25 Result Notes Documentation Provider Name and Address Organization Details Recorded Time Pet-ct, Skull Base To Mid-thigh Scan : [address] [address] Patient Name: MARTIN LEZAMA Patient : 1945 [...] was GFR =50 6.2 mCi Ga-68 PSMA ([facility] 65089-662-20) was injected IV. After an uptake time of 76 minutes, vertex through midthigh PET imaging was performed. This was followed by a low dose attenuation correction/anatomic localization CT from vertex through the midthigh levels. Urinary tract was opacified with an injection of 50 mL Omnipaque 350 (1 x 50 ml bottle of [facility] 9614-4697-58) administered [address] scan. [...] Interpreted By: Tristan Escalona MD Not Available [facility] 09/01/2024 12:29:17 Mri, Pelvis, W/o Contrast : [place] [address] Patient Name: MARTIN LEZAMA Patient : 1945 [...] Interpreted By: Tristan Escalona MD Not Available [facility] 09/27/2024 16:25:25 Problems No Known Problems Procedures Surgical History Date Name Laterality Status Provider Name and Address Organization Details Recorded Time 02/29/20 Lupron Administration completed Harleen Porfirio [facility] 02/28/2025 14:50:38 09/03/20 24 Lupron Administration completed Sadia Ndiaye [facility] 09/03/2024 13:10:22 Vasectomy completed Sadia Ndiaye [facility] 05/19/2024 15:50:09 procedure on knee completed Sadia Senthil [facility] 05/19/2024 15:52:15 mechanical prosthetic aortic valve replacement completed Tammy Curtis [facility] 05/21/2024 09:02:43 Imaging Results None recorded. [...] Updated DateTime 02/28/2025 187.96 cm 23.8 kg/m2 32469.59 g Harleen Monroy [facility] 02/28/2025 14:14:02 Date Recorded Body height Body mass index (BMI) Body weight Provider Name and Address Organization Details Last Updated DateTime 07/23/2024 187.96 cm 24.4 kg/m2 00754.55 g Tammy Curtis [facility] 07/23/2024 12:18:57 Date Recorded Body height Body mass index (BMI) Body weight Provider Name and Address Organization Details Last Updated DateTime 08/09/2024 187.96 cm 24.4 kg/m2 87999.55 g Grazyna Terrazas [facility] 08/09/2024 14:37:05 Date Recorded Body height Body mass index (BMI) Body weight Provider Name and Address Organization Details Last Updated DateTime 09/03/2024 187.96 cm 24.4 kg/m2 61436.55 g Sadia Ndiaye [facility] 09/03/2024 13:09:35 Social History Question Answer Notes LastModified by Organizat ion Details LastModified Time Tobacco Smoking Status Former Smoker cigarettes Sadia Ndiaye [facility] 05/19/2024 15:49:08 When Did You Quit Smoking? 18+yearssin taco perez 1997 [email or web address] Information not available 05/19/2024 What Was The Date Of Your Most Recent Tobacco Screening? 02/28/2025 [email or web address] Information not available 02/28/2025 What Is Your Relationship Status? [email or web address] Information not available 05/19/2024 How Much Tobacco Do You Smoke? No Information not available 05/19/2024 Has Tobacco Cessation Counseling Been Provided? No [email or web address] Information not available 05/19/2024 Sex: Male Functional Status Question Answer Note LastModified by Organizat ion Details LastModified Time Do you use any illicit or recreational drugs? No [email or web address] Information not available 05/19/2024 Do you or have you ever used any other forms of tobacco or nicotine? No [email or web address] Information not available 05/19/2024 What is your level of alcohol consumption? None [email or web address] Information not available 05/19/2024 Are you currently employed? No retired [email or web address] Information not available 05/19/2024 Mental Status None recorded. Family History Nothing Reported. Medical History Condition Response Sleep Apnea Y Past Encounters Encounter ID Performer Location Encounter Start Date Encounter Closed Date Diagnosis/Indication Diagnosis SNOMED-CT Code Diagnosis ICD10 Code Diagnosis Note [id number] CJ LAMB MD [facility] [address] [place] [address] 05/19/2024 13:25:43 05/21/2024 06:07:21 Prostate specific antigen above reference range 097258302 R97.20 Considerin g his medical history I suggest we [...] needle biopsy of the prostate Large prostate 397132063 N40.0 Continue tamsulosin [id number] CJ LAMB MD [facility] [address] [place] [address] 07/23/2024 11:25:17 07/23/2024 16:41:36 Prostate specific antigen above reference range 324135126 R97.20 We will arrange for MRI directed transrecta l ultrasound and needle biopsy of the prostate under sedation. Benign pro static hyperplasia with outflow obstruction 444888229 N40.1 Increased frequency of urination 320836333 R35.0 Trial of oxybutynin chloride [id number] CJ LAMB MD SURGERY SCHEDULE [address] [place] [address] 08/04/2024 08:27:28 08/04/2024 08:27:53 [id number] CJ LAMB MD [facility] [address] [place] [address] 08/09/2024 14:02:05 08/10/2024 04:08:34 Narciso hematuria 210550590 R31.0 He is encouraged to drink copious fluids. We discussed that he may have issues with hematuria for prolonged period of time considerin g his chronic anticoagul ation therapy. Retention of urine 19229 4002 R33.9 Voiding trial today Malignant neoplasm of prostate 695404760 C61 We will refer to radiation oncology. Will arrange for total body bone scan [id number] ZORAIDA GARDNER MD [facility] [address] [place] [address] 08/17/2024 10:55:10 08/30/2024 12:23:43 [id number] CJ LAMB MD [facility] [address] [place] [address] 09/03/2024 11:13:19 09/03/2024 16:46:21 Malignant neoplasm of prostate 123279702 C61 Follow-up 6 months with PSA [id number] ZORAIDA GARDNER MD [facility] [address] [place] [address] 09/17/2024 09:29:57 09/21/2024 10:50:56 [id number] CJ LAMB MD [facility] [address] [place] [address] 02/28/2025 13:16:41 02/28/2025 14:52:53 History of malignant neoplasm of prostate [id number] Z85.46 He received a 6-month Eligard injection [...] Carroll Member ID Guarantor Name 02/25/2025 1 MEDICARE-Chain (MEDICARE) Martin Lezama [id number] Martin Lezama 02/25/2025 2 FOR LIFE () Martin Lezama [id number] Martin Lezama Notes Date Note Type Note [...] prior to his biopsy. CJ LAMB MD [address] [place] [address], [address], [facility] 07/25/2024 14:39:29 08/09/2024 text/html Patient is here [...] has been to the emergency room at [facility] 3-4 different times for catheter irrigation. Currently is urine is grape juice colored and appears to be old blood. Unfortunately his biopsy has showed several cores positive for high-grade prostate cancer. He had Erica score of 9(5+4) in the area of [...] in the bladder on CT scan at [facility] over the weekend. He is here today [...] was 1.2 earlier today CJ LAMB MD [address] [place] [address] [place], [phone], [facility] 08/09/2024 21:13:11 09/03/2024 text/html Patient is here to start LHRH antagonist therapy in anticipation of external beam radiation therapy for prostate cancer. We discussed potential side effects and expectations. He received a 6-month. Lupron injection. CJ LAMB MD [address] [place] [address] [place], [phone], [facility] 09/05/2024 22:40:50 02/28/2025 text/html Patient is here [...] months. He now seeing Dr. Pappas in [place] as his primary care. CJ LAMB MD [address] [facility] [place], [address], [facility] 02/28/2025 17:48:31
--- OUTSIDE RECORDS SUMMARY | 2025-03-14 15:20 | XMS_ITS | Clinical Summary ---
Author Organization [facility] Address [address] [place] [place] [address] Care Team Providers Care Cement Contractor Name Role Phone [email or web address] Primary Care Provider [phone] Allergies Active Allergy Reactions Criticality Noted Date [...] Description 12/27/2024 1:15 PM EDT Office Visit [facility] [address] [place] [address] Justen Jaimes MD Malignant neoplasm of prostate (CMS/HCC) (Primary Dx) 12/27/2024 Travel 12/26/2024 Travel 12/23/2024 Orders Only [facility] at [place] [address] [place] [address] Justen Jaimes MD 12/22/2024 Orders Only [facility] [address] [place] [address] Justen Jaimes MD from Last 3 Months [...] Description 06/27/2025 12:30 PM EDT Office Visit [facility] at [facility] [address] [place] [phone] 06/27/2025 1:30 PM EDT Office Visit [facility] at [facility] [address] [place] [address] Justen Jaimes MD [address] [phone] Health Maintenance Due Date Last Done Comments [facility]-Hepatitis C Screening 1945 [facility]-Medicare Annual Wellness (AWV) 1945 [facility]-Infant/Child/Adol SDOH Screenings 1945 [facility]-Obesity Intervention 1953 [facility]- SDOH Screenings 1965 [facility]-Adult SDOH Screenings 1965 [facility]-Pneumococcal Vaccine: 50 + Years (1 of 2 - PCV) 1966 [facility]-Zoster Vaccines (1 of 2) 1966 [facility]-DTaP,Tdap,and Td Vaccine s (1 - Tdap) 07/25/2010 07/24/2010 [id number] Vaccine (3 - Moderna risk series) 12/20/2020 [...] CBC W/DIFF Routine 12/22/2024 3:55 PM EDT DC PROSTATE SPECIFIC ANTIGEN,TOTAL Routine 12/22/2024 9:37 AM EDT COMPLETE METABOLIC PROFILE (CMP) Routine 12/22/2024 9:37 AM EDT from Last 3 Months Results * CBC W/DIFF (12/22/2024 3:55 PM EDT) Justen Jaimes MD LAB BLOOD ORDERABLES [facility] Result * COMPLETE METABOLIC PROFILE (CMP) (12/22/2024 9:37 AM EDT) Justen Jaimes MD LAB BLOOD ORDERABLES [facility] [facility] Result * DC PROSTATE SPECIFIC ANTIGEN,TOTAL (12/22/2024 9:37 AM EDT) Justen Jaimes MD [facility] Final Res ult from Last 3 Months [place] [id number] [facility] Care Teams Cement Contractor Relationship Specialty Start Date End Date Tristan Billings DO [address] [facility] [place] [id number] PCP - General 09/13/24
--- OUTSIDE RECORDS SUMMARY | 2025-03-14 15:20 | XMS_ITS | Data Portability ---
Author Organization [place] - [facility], [employer] [facility] Address [address] [place] [address] Care Team Providers Care Natural Gas Plant Supervisor Name Role Phone FRED MURILLO Primary Care Provider Assessment No assessment recorded. [...] Address Organization Details Recorded Time Diabetes mellitus 06402774 Active 2022 Faraz Jefferson null, [place] - [facility] 3 13:55:39 Essential hypertension 87702386 Active 2022 Faraz [place] null, [place] - [facility] 3 13:55:49 Anticoagulan t therapy Active 2022 MANDY Hart null, [place] - [facility] 3 13:26:20 Osteoarthrit is 813367480 Active 2022 MANDY Hart null, [place] [facility] 3 13:26:33 Erectile dysfunction 259780256 Active 2022 MANDY Hart null, [place] - [facility] 3 13:26:40 Benign prostatic hyperplasia 026516701 Active 2022 MANDY Hart null, [place] - [facility] 3 13:26:49 Hyperlipidem ia 94535886 Active 2022 MANDY Hart null, [facility] 3 13:26:55 Problem Notes [...] Quit in 24 years ago Chani Drake [facility], [place] - [facility] 11/16/2021 15:33:17 Are You Blind Or Do [...] anxious, or unable to sleep at night)? [id number] Information not available 11/16/2021 Do you have difficulty concentrating, remembering or making decisions? No Information no t available 11/16/2021 Family History Relationship Description Onset Age of this Age Resolved Age Notes LastModified by Organization Details LastModified Time Brother Diabetes mellitus [email or web address] t Not available 11/16/2021 15:30:36 Sister Essential hypertension [email or web address] t Not available 11/16/2021 15:31:17 Medical History Condition Response Coronary Artery Disease N Hyperthyroidism N Hypothyroidism N Arthritis N Cancer N Stroke N High Cholesterol Y Kidney Disease N Diabetes Y Congestive Heart Failure (CHF) N Asthma N Hypertension Y Past Encounters Encounter ID Performer Location Encounter Start Date Encounter Closed Date Diagnosis/Indication Diagnosis SNOMED-CT Code Diagnosis ICD10 Code Diagnosis Note [id number] Srikanth Edwards MD [facility] [address],[place] [address] [place], [place] [address] 11/16/2021 15:19:12 12/25/2021 23:31:53 Essential hypertension 51069184 I10 Uncontroll ed type 2 diabetes mellitus 770026909 E11.65 [id number] Srikanth Edwards MD [facility] [address],[place] [address] [place] [address] 11/26/2021 14:38:42 01/08/2022 12:37:48 Diabetes mellitus 17561742 E11.9 Essential hypertension 08505200 I10 [id number] Srikanth Edwards MD [facility] [address],[place] [address] [place] [address] 12/07/2021 15:42:51 01/03/2022 21:27:02 Diabetes mellitus 05521649 E11.9 Essential hypertension 76834125 I10 [id number] MD ANIBAL TeixeiraCHNICOLA D [address] [place] [address] 12/14/2021 16:04:16 01/29/2022 03:54:52 Diabetes mellitus 18041913 E11.9 Essential hypertension 08933255 I10 [id number] MD ANIBAL TeixeiraCHNICOLA D [address] [place] [address] 12/21/2021 16:01:40 01/29/2022 03:54:53 Diabetes mellitus 57764864 E11.9 Essential hypertension 28929120 I10 [id number] Peter [place] , MD [place] [facility] [address] [place] [address] 01/04/2022 16:02:31 01/29/2022 03:54:56 Diabetes mellitus 67248397 E11.9 Essential hypertension 48879338 I10 [id number] Srikanth Edwards MD [place] [facility] [place] [address] [place] [address] 01/11/2022 16:17:47 01/28/2022 16:14:32 Diabetes mellitus 72824162 E11.9 Essential hypertension 33805623 I10 [id number] MD ANIBAL Teixeira [facility] [address] [place] [address] 01/18/2022 16:12:09 02/14/2022 15:53:17 Diabetes mellitus 87961292 E11.9 Essential hypertension 50977327 I10 [id number] Srikanth Edwards MD [place] [facility] [place] [address] [place] [address] 01/25/2022 16:12:01 01/25/2022 22:10:14 Diabetes mellitus 54308408 E11.9 Essential hypertension 96480679 I10 [id number] Srikanth Edwards MD [place] [facility] [place] [address] [place] [address] 02/01/2022 16:08:44 02/04/2022 10:47:52 Diabetes mellitus 47464591 E11.9 Essential hypertension 67623635 I10 [id number] Srikanth Edwards MD [place] [facility] [place] [address] [place] [address] 02/08/2022 16:21:37 03/24/2022 13:15:23 Diabetes mellitus 08455857 E11.9 Essential hypertension 25388506 I10 [id number] Srikanth Edwards MD [place] [facility] [place] [address] [place] [address] 02/15/2022 16:03:42 02/19/2022 14:34:17 Diabetes mellitus 50948131 E11.9 Essential hypertension 57463710 I10 [id number] Srikanth Edwards MD [place] [facility] [place] [address] [place] [address] 02/22/2022 16:04:55 03/17/2022 23:46:42 Diabetes mellitus 08838724 E11.9 Essential hypertension 87440303 I10 [id number] Srikanth Edwards MD [place] [facility] [place] [address] [place] [address] 03/01/2022 16:07:59 03/17/2022 21:45:58 Diabetes mellitus 26511922 E11.9 Essential hypertension 46884962 I10 [id number] Srikanth Edwards MD [place] [facility] [place] [address] [place] [address] 03/08/2022 16:05:33 04/05/2022 03:53:43 Diabetes mellitus 45794498 E11.9 Essential hypertension 17422483 I10 [id number] Srikanth Edwards [place] [facility] [place] [address] [place] [address] 03/15/2022 16:11:27 04/26/2022 03:53:33 Diabetes mellitus 98194337 E11.9 Essential hypertension 71227922 I10 [id number] MD ANIBAL Teixeira [facility] [address] [place] [address] 04/05/2022 16:21:27 04/24/2022 14:56:34 Diabetes mellitus 77339924 E11.9 Essential hypertension 72949583 I10 [id number] Srikanth Edwards MD [place] [facility] [place] [address] [place] [address] 04/19/2022 16:15:15 05/30/2022 03:54:38 Diabetes mellitus 31697799 E11.9 Essential hypertension 29003657 I10 [id number] Sirkanth Edwards MD [place] [facility] [place] [address] [place] [address] 05/03/2022 16:55:42 05/29/2022 15:30:59 Diabetes mellitus 43686536 E11.9 Essential hypertension 52280135 I10 [id number] Rajendra Hart, PUNCH PRESS OPERATOR-SALES APPRENTICE [place] [facility] [place] [address] [place] [address] 05/17/2022 16:05:31 06/27/2022 03:53:23 Diabetes mellitus 31463712 E11.9 Essential hypertension 53746040 I10 [id number] Rajendra Hart PUNCH PRESS OPERATOR-SALES APPRENTICE [facility] [address] [place] [address] 05/31/2022 16:14:33 06/27/2022 03:53:27 Diabetes mellitus 56585850 E11.9 Essential hypertension 03698186 I10 [id number] Rajendra Hart PUNCH PRESS OPERATOR-SALES APPRENTICE [facility] [address] [place] [address] 06/14/2022 16:18:22 06/26/2022 10:53:41 Diabetes mellitus 61914171 E11.9 Essential hypertension 00784120 I10 [id number] Rajendra Hart PUNCH PRESS OPERATOR-SALES APPRENTICE [facility] [address] [place] [address] 06/28/2022 16:33:56 08/01/2022 03:52:38 Diabetes mellitus 29810718 E11.9 Essential hypertension 14227853 I10 [id number] Rajendra Hart PUNCH PRESS OPERATOR-SALES APPRENTICE [facility] [address] [place] [address] 07/12/2022 16:20:00 07/31/2022 14:32:30 Diabetes mellitus 52914639 E11.9 Essential hypertension 67447686 I10 [id number] Rajendra Hart PUNCH PRESS OPERATOR-SALES APPRENTICE [facility] [address] [place] [address] 07/26/2022 16:20:55 11/19/2022 10:48:00 Diabetes mellitus 74019218 E11.9 Essential hypertension 88417865 I10 [id number] Rajendra Hart PUNCH PRESS OPERATOR-SALES APPRENTICE [facility] [address] [place] [address] 08/16/2022 16:30:19 08/19/2022 12:09:55 Diabetes mellitus 72760287 E11.9 Essential hypertension 10192908 I10 [id number] Rajendra Hart PUNCH PRESS OPERATOR-SALES APPRENTICE [facility] [address] [place] [address] 08/30/2022 16:12:03 11/29/2022 13:02:35 Diabetes mellitus 12691863 E11.9 Essential hypertension 35792092 I10 [id number] Rajendra Hart APRN-SALES APPRENTICE [facility] [address] [place] [address] 09/13/2022 16:53:17 12/30/2022 00:26:22 Diabetes mellitus 26568695 E11.9 Essential hypertension 80068860 I10 [id number] Rajendra Hart PUNCH PRESS OPERATOR-SALES APPRENTICE [facility] [address] [place] [address] 09/27/2022 16:19:22 12/30/2022 18:51:10 Diabetes mellitus 54341644 E11.9 Essential hypertension 43218344 I10 [id number] Rajendra Hart APRN-SALES APPRENTICE [facility] [address] [place] [address] 10/11/2022 16:17:43 01/18/2023 14:30:53 Diabetes mellitus 96153774 E11.9 Essential hypertension 73386629 I10 [id number] SUSAN Welsh [facility] Schedule [address] [place] [address] 10/25/2022 16:34:28 01/29/2023 11:50:46 Diabetes mellitus 05387269 E11.9 Patient's glucose readings are trending higher in the mornings, but normal after meals. Fasting glucose this morning was 149. Pt states this is due to veering away from diabetic diet due to 's medical issues but will try to do better. Encouraged pt to continue checking blood glucose daily and choose diabetic friendly foods. Essential hypertension 95783585 I10 Patient's blood pressure readings are trending [...] as prescribed , and exercise as tolerated. [id number] SUSAN Welsh [facility] Schedule [address] [place] [address] 11/08/2022 17:39:15 02/15/2023 21:45:57 Diabetes mellitus 33174166 E11.9 Essential hypertension 30259055 I10 [id number] Rajendra Hart APRN-SALES APPRENTICE [facility] Schedule [address] [place] [address] 11/22/2022 16:15:15 11/22/2022 16:41:00 Diabetes mellitus 42144446 E11.9 Essential hypertension 64602042 I10 [id number] Rajendra Hart APRN-SALES APPRENTICE [facility] Schedule [address] [place] [address] 6 12/13/2022 16:16:33 12/13/2022 16:24:25 Diabetes mellitus 59362200 E11.9 Essential hypertension 12658571 I10 [id number] Rajendra Hart APRN-SALES APPRENTICE [facility] Schedule [address] [place] [address] 6 01/17/2023 16:46:22 01/17/2023 16:52:09 Diabetes mellitus 59315943 E11.9 Essential hypertension 02042024 I10 [id number] Rajendra Hart APRN-SALES APPRENTICE [facility] Schedule [address] [place] [address] 6 01/30/2023 15:12:10 01/30/2023 16:46:05 Diabetes mellitus 89332591 E11.9 Essential hypertension 87280290 I10 [id number] Rajendra Hart APRN-SALES APPRENTICE [facility] Schedule [address] [place] [address] 6 02/07/2023 16:02:31 02/07/2023 16:07:35 Diabetes mellitus 96001947 E11.9 Essential hypertension 63955364 I10 [id number] Rajendra Hart PUNCH PRESS OPERATOR-SALES APPRENTICE [facility] Schedule [address] [place] [address] 6 02/21/2023 16:28:58 02/21/2023 16:34:55 Diabetes mellitus 74324335 E11.9 Essential hypertension 11921133 I10 [id number] TODD CHOWDHURY NP NS[facility]Nursin g Schedule [address] [place] [address] 6 03/07/2023 15:48:39 03/07/2023 15:53:49 Diabetes mellitus 53786514 E11.9 Essential hypertension 29302824 I10 [id number] TODD CHOWDHURY NP [facility]Nursin g Schedule [address] [place] [address] 03/21/2023 15:40:28 03/21/2023 15:50:36 Diabetes mellitus 35684047 E11.9 Essential hypertension 83005669 I10 [id number] TODD CHOWDHURY CORE PLACER NS[facility]Nursin g Schedule [address] [place] [address] 04/04/2023 15:45:51 04/04/2023 15:54:30 Diabetes mellitus 17865051 E11.9 Essential hypertension 16827382 I10 [id number] TODD CHOWDHURY NP [facility] Schedule [address] [place] [address] 04/18/2023 15:33:35 04/18/2023 15:43:13 Diabetes mellitus 40038702 E11.9 Essential hypertension 80924205 I10 [id number] TODD CHOWDHURY NP [facility] Schedule [address] [place] [address] 05/02/2023 15:42:42 05/02/2023 15:47:40 Diabetes mellitus 50256527 E11.9 Essential hypertension 62460973 I10 [id number] TODD CHOWDHURY NP [facility] Schedule [address] [place] [address] 05/23/2023 15:43:29 05/23/2023 15:50:23 Diabetes mellitus 44492645 E11.9 Essential hypertension 41378754 I10 087894 TODD CHOWDHURY NP [facility] Schedule [address] [place] [address] 06/06/2023 15:28:59 06/06/2023 15:39:02 Diabetes mellitus 87022887 E11.9 Essential hypertension 84995634 I10 [id number] TODD CHOWDHURY NP [facility]Nurs[facility] Schedule [address] [place] [address] 07/18/2023 17:43:20 07/21/2023 09:45:32 Diabetes mellitus 31887713 E11.9 Essential hypertension 01926865 I10 [id number] TODD CHOWDHURY NP [facility] Schedule [address] [place] [address] 08/01/2023 17:36:40 08/04/2023 10:06:54 Diabetes mellitus 25988193 E11.9 Essential hypertension 95719369 I10 [id number] TODD CHOWDHURY NP [facility]urs[facility] Schedule [address] [place] [address] 08/22/2023 16:42:04 08/27/2023 10:54:09 Diabetes mellitus 52375721 E11.9 Essential hypertension 99281979 I10 058078 Annalise Taylor NP [facility] Schedule [address] [place] [address] 09/05/2023 17:28:17 09/05/2023 17:49:18 Diabetes mellitus 05797013 E11.9 Essential hypertension 60131385 I10 [id number] Annalise Taylor NP [facility] Schedule [address] [place] [address] 10/31/2023 15:53:43 11/03/2023 15:44:35 Diabetes mellitus 56292796 E11.9 Essential hypertension 18387376 I10 [id number] Annalise Taylor NP [facility] Schedule [address] [place] [address] 11/28/2023 17:25:32 11/28/2023 17:37:46 Essential hypertension 59731816 I10 Diabetes mellitus 802582 09 E11.9 279059 Annalise Taylor NP [facility] Schedule [address] [place] [address] 12/03/2023 17:39:49 12/03/2023 17:50:36 Essential hypertension 05857387 I10 Diabetes mellitus 488312 09 E11.9 898642 Annalise Taylor NP [facility] Schedule [address] [place] [address] 12/17/2023 16:31:39 12/17/2023 16:39:03 Essential hypertension 39285085 I10 Diabetes mellitus 671747 09 E11.9 778869 Annalise Taylor NP [facility] Schedule [address] [place] [address] 12/31/2023 16:49:01 12/31/2023 16:56:48 Essential hypertension 03778747 I10 Diabetes mellitus 526817 E11.9 072276 Annalise Taylor NP [facility] Schedule [address] [place] [address] 01/14/2024 17:14:28 01/14/2024 17:25:19 Essential hypertension 67541397 I10 Diabetes mellitus 878364 E11.9 260713 Annalise Taylor NP [facility] Schedule [address] [place] [address] 01/28/2024 17:09:51 01/28/2024 17:19:17 Essential hypertension 11920047 I10 Diabetes mellitus 148345 E11.9 [id number] Annalise Taylor NP [facility]urs[facility] Schedule [address] [place] [address] 02/25/2024 16:39:38 02/25/2024 16:49:57 Essential hypertension 52537362 I10 Diabetes mellitus 602428 E11.9 448524 Annalise Taylor NP [facility]Provid er Schedule [address] [place] [address] 02/26/2024 16:38:32 02/26/2024 16:48:12 Diabetes mellitus 28902556 E11.9 -Continue the following medication s as [...] no fluid restrictio n? YES. Essential hypertension 73675464 I10 -Continue the following medication s as prescribed : hctz, atenolol-C hange the following medication s: -Incorp orate diet, exercise, and stress management into daily routine.-C ontinue daily BP readings.- Highlighte d importance of BP reading technique. -Follow-up with nurse for RPM visits. Is positionin g of device correct? YES.Drinki ng at least 48-64 oz of water per day, if no fluid restrictio n? YES.Watchi ng salt intake? YES. 137643 KELLY Carreon_Nursin g Schedule [address] [place] [address] 03/10/2024 17:35:11 03/11/2024 09:38:18 Essential hypertension 28419391 I10 Diabetes mellitus 643963 E11.9 [id number] KELLY Carreon_Nursin g Schedule [address] [place] [address] 03/24/2024 16:31:57 03/24/2024 16:49:23 Essential hypertension 36104624 I10 Diabetes mellitus 000450 E11.9 749246 KELLY Carreon_Nursin g Schedule [address] [place] [address] 04/07/2024 16:38:20 04/07/2024 16:53:36 Essential hypertension 04587117 I10 Diabetes mellitus 917634 E11.9 897337 KELLY Carreon_Nursin g Schedule [address] [place] [address] 04/23/2024 15:44:06 04/23/2024 15:55:49 Essential hypertension 80354368 I10 Diabetes mellitus 215363 E11.9 761160 KELLY Carreon_Nursin g Schedule [address] [place] [address] 05/19/2024 16:41:13 05/19/2024 16:57:22 Essential hypertension 13543338 I10 Diabetes mellitus 283654 E11.9 351063 KELLY Carreon_Nursin g Schedule [address] [place] [address] 06/02/2024 16:39:18 06/02/2024 16:58:29 Essential hypertension 99858178 I10 Diabetes mellitus 866480 09 E11.9 954382 Annalise Taylor, CORE PLACER NS[facility]Nursin g Schedule [address] [place] [address] 06/16/2024 15:57:59 06/16/2024 16:15:11 Essential hypertension 99549029 I10 Diabetes mellitus 896874 E11.9 089390 Annalise Taylor, CORE PLACER NS[facility]Nursin g Schedule [address] [place] [address] 06/30/2024 16:33:01 06/30/2024 16:45:21 Essential hypertension 74142476 I10 Diabetes mellitus 649816 E11.9 055002 Annalise Taylor NP NS[facility]Nursin g Schedule [address] [place] [address] 07/14/2024 16:18:27 07/14/2024 16:38:25 Diabetes mellitus 05524135 E11.9 Essential hypertension 18896561 I10 275624 Annalise Taylor NP NS[facility]Nursin g Schedule [address] [place] [address] 07/21/2024 17:39:48 07/21/2024 18:00:12 Essential hypertension 63550925 I10 Diabetes mellitus 578925 E11.9 606985 Annalise Taylor NP NS[facility]Nursin g Schedule [address] [place] [address] 07/28/2024 17:47:57 07/28/2024 18:03:49 Diabetes mellitus 01190293 E11.9 Diabetes mellitus Essential hypertension 46936099 I10 Essential hypertensi on 994296 Annalise Taylor NP NS[facility]Nursin g Schedule [address] [place] [address] 08/11/2024 17:24:32 08/11/2024 17:28:35 Diabetes mellitus 33765017 E11.9 Diabetes mellitus Essential hypertension 35036257 I10 Essential hypertensi on 991679 Annalise Taylor NP NS[facility]Nursin g Schedule [address] [place] [address] 08/18/2024 17:45:40 08/18/2024 18:00:35 Diabetes mellitus 02288065 E11.9 Diabetes mellitus Essential hypertension 13073820 I10 Essential hypertensi on 640184 Annalise Taylor, CORE PLACER NS_Nursin g Schedule [address] [place] [address] 08/25/2024 17:32:06 08/25/2024 17:45:47 Diabetes mellitus 01624235 E11.9 Diabetes mellitus Essential hypertension 64522864 I10 Essential hypertensi on 885651 Annalise Taylor, CORE PLACER NS_Nursin g Schedule [address] [place] [address] 09/01/2024 17:04:25 09/01/2024 17:12:44 Diabetes mellitus 47788640 E11.9 Diabetes mellitus Essential hypertension 14075157 I10 Essential hypertensi on 192410 Annalise Taylor, KELLY NS_Nursin g Schedule [address] [place] [address] 09/09/2024 12:13:36 09/09/2024 12:16:47 Diabetes mellitus 67520290 E11.9 Diabetes mellitus Essential hypertension 95283369 I10 Essential hypertensi on 163487 Annalise Taylor, KELLY NS_Nursin g Schedule [address] [place] [address] 09/22/2024 18:18:09 09/23/2024 00:42:25 Diabetes mellitus 14048607 E11.9 Diabetes mellitus Essential hypertension 89260243 I10 Essential hypertensi on 876351 Annalise Taylor, KELLY NS_Nursin g Schedule [address] [place] [address] 09/29/2024 17:43:59 09/29/2024 17:52:53 Diabetes mellitus 62888039 E11.9 Diabetes mellitus Essential hypertension 11702432 I10 Essential hypertensi on 206197 Annalise Taylor, CORE PLACER PS_Provid er Schedule [address] [place] [address] 10/05/2024 16:19:13 10/05/2024 16:30:38 Diabetes mellitus 30954568 E11.9 Diabetes mellitus Essential hypertension 90303621 I10 Hypertensi on Ongoing Care Plan - Frequency of biomarker readings: Once daily before meds - Medication recommenda tions:X continue current regimen__ make these medication changes: Diabetes Ongoing Care Plan - Frequency of Biomarker Readings: Once daily: fasting before meds/break fastIf other, list leonard elder here: - Medication recommenda tions:X continue current [...] while enrolled- As needed as concerns arise 635172 KELLY Carreon_Connorin g Schedule [address] [place] [address] 10/06/2024 16:48:08 10/06/2024 16:49:21 Diabetes mellitus 24369068 E11.9 Diabetes mellitus Essential hypertension 90239206 I10 Essential hypertensi on 230180 KELLY Carreon_Connorin g Schedule [address] [place] [address] 10/06/2024 17:45:23 10/06/2024 18:02:20 Diabetes mellitus 54676416 E11.9 Diabetes mellitus Essential hypertension 02970057 I10 Essential hypertensi on 265621 KELLY Carreon g Schedule [address] [place] [address] 10/13/2024 16:35:33 10/13/2024 17:08:55 Diabetes mellitus 74815068 E11.9 Diabetes mellitus Essential hypertension 77934054 I10 Essential hypertensi on 943538 KELLY Carreonin g Schedule [address] [place] [address] 10/20/2024 16:40:00 10/20/2024 17:00:03 Diabetes mellitus 21354245 E11.9 Diabetes mellitus Essential hypertension 56127163 I10 Essential hypertensi on 920415 Annalise Taylor, CORE PLACER NS_Nursin g Schedule [address] [place] [address] 10/27/2024 17:15:42 10/27/2024 17:26:09 Diabetes mellitus 28270590 E11.9 Diabetes mellitus Essential hypertension 14995788 I10 Essential hypertensi on 631573 Annalise Taylor, CORE PLACER NS_Nursin g Schedule [address] [place] [address] 11/03/2024 16:31:49 11/03/2024 16:47:04 Diabetes mellitus 00774750 E11.9 Diabetes mellitus Essential hypertension 87782158 I10 Essential hypertensi on 259284 Annalise Taylor, CORE PLACER NS_Nursin g Schedule [address] [place] [address] 11/10/2024 16:22:43 11/10/2024 16:31:06 Diabetes mellitus 69869505 E11.9 Diabetes mellitus Essential hypertension 45520491 I10 Essential hypertensi on 652413 Annalise Taylor, CORE PLACER NS_Nursin g Schedule [address] [place] [address] 11/11/2024 10:18:10 11/11/2024 10:24:38 Diabetes mellitus 50899615 E11.9 Diabetes mellitus Essential hypertension 89385886 I10 Essential hypertensi on 475009 Annalise Taylor, CORE PLACER NS_Nursin g Schedule [address] [place] [address] 11/17/2024 16:20:28 11/17/2024 16:41:39 Diabetes mellitus 60431784 E11.9 Diabetes mellitus Essential hypertension 08438063 I10 Essential hypertensi on 808683 Annalise Taylor, CORE PLACER NS_Nursin g Schedule [address] [place] [address] 11/24/2024 16:44:33 11/24/2024 16:55:25 Diabetes mellitus 37263657 E11.9 Diabetes mellitus Essential hypertension 94472875 I10 Essential hypertensi on 614414 Annalise Taylor, CORE PLACER NS_Nursin g Schedule [address] [place] [address] 11/25/2024 08:40:30 11/25/2024 08:42:30 Diabetes mellitus 12967256 E11.9 Diabetes mellitus Essential hypertension 29460628 I10 Essential hypertensi on 866108 Annalise Taylor NP NS_Nursin g Schedule [address] [place] [address] 12/01/2024 16:47:39 12/01/2024 16:58:01 Diabetes mellitus 29806345 E11.9 Diabetes mellitus Essential hypertension 18078599 I10 Essential hypertensi on 879661 Annalise Taylor NP NS_Nursin g Schedule [address] [place] [address] 12/08/2024 16:18:09 12/08/2024 16:35:01 Diabetes mellitus [id number] E11.9 Diabetes mellitus Essential hypertension [id number] I10 Essential hypertensi on Goals Section Goal Description Progress Status Start Date LastModified by Organization Details LastModified Time Patient's blood pressure is at baseline None Recorded worsening active 2023 Charlee Pena Information not available 07/14/2024 20:35:43 Patient maintains a blood glucose level at baseline None Recorded worsening active 2023 Charlee Cross Information not available 07/14/2024 20:36:59 Patient actively participa bri in plan of care None Recorded Progressing active 2023 [facility] Information not available 01/14/2024 21:25:05 Heart Healthy Diet Maintain a low sodium and low fat diet, restricting artificial sweetener use NoChange active 2023 [place] Information not available 01/28/2024 21:18:56 Health Concerns Section Related Observation LastModified by Organization Detai ls LastModified Time None Recorded Concern Status LastModified by Organization Details LastModified Time None Recorded Advance Directives Directive None Recorded Payers Insurance Date Sequence Insurance Name Policy Number Policy Carroll Covered Member ID Carroll Member ID Guarantor Name 11/17/2024 [place] Martin Lezama [id number] Martin Lezama 11/17/2024 1 [place] Martin Lezama [id number] Martin Lezama 11/17/2024 [place] Martin Lezama [id number] Martin Lezama 01/19/2025 2 FOR LIFE ( - MEDICARE SUPPLEMENT) Martin Lezama [id number] Martin Lezama
--- OUTSIDE RECORDS SUMMARY | 2025-03-14 15:20 | XMS_ITS | Data Portability ---
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 Calcul ated eGFR at time of exam was GFR =50 6.2 mCi Ga-68 [facility] ([facility] [address]605- [id number] ) was inject ed IV. After [...] (1 x 50 ml bottle of [facility] [id number] ) admini stered [...] thy. There is adenop athy in the university intern al iliac region and along the [...] Escalona MD on 2023 12:24 PM [facility] Radiology [facility] [address] [facility], [place], [address], 09/01/2024 12:51:05 09/27/19 25 09/27/2024 MRI, pelvi s, w/o contr ast [address] [address] Patidc t Name: TRISHA Tsang Patidc olson : 1944 Patien t Orderi ng Provid er: ZORAIDA GARDNER EXAM DATE: 2024 EXAM: MR PROSTA TE RADIAT ION PLAN WO CONTRA ST CLINIC AL INFORM ATION: Elmer r cancer TECHNI QUE: Biplan ar T2, ax [...] Escalona MD on 025 4:20 PM [facility] Radiology [address] [place], [address], 09/27/2024 19:31:11 Result Notes Documentation Provider Name and Address Organization Details Recorded Time Pet-ct, Skull Base To Mid-thigh Scan : [facility] [address] [place] [address] Patient Name: MARTIN LEZAMA Patient : 1945 [...] GFR =50 6.2 mCi Ga-68 [facility]MA ([facility] 08534-411-78) was injected IV. After an uptake time of 76 minutes, vertex through midthigh PET imaging was performed. This was followed by a low dose attenuation correction/anatomic localization CT from vertex through the midthigh levels. Urinary tract was opacified with an injection of 50 mL Omnipaque 350 (1 x 50 ml bottle of [facility] [id number]) administered [address] scan. [...] MD IDA GARDNER MD [address] [place], [address], [facility] 09/01/2024 12:51:05 Mri, Pelvis, W/o Contrast : [facility] [address] [place] [address] Patient Name: MARTIN LEZAMA Patient : 1945 [...] MD IDA GARDNER MD [address], [place], [address], [facility] 09/27/2024 19:31:11 Procedures Surgical History Date Name Laterality Status Provider Name and Address Organization Details Recorded Time 01/03/20 25 Prostate marker placement with SpaceOAR completed ZORAIDA GARDNER MD [address], [place], [address], [facility] 09/20/2024 21:49:03 10/16/18 98 [facility] 08/17/2024 12:00:45 09/15/18 98 procedure on knee completed [facility] 08/17/2024 12:01:01 09/15/18 80 vasectomy completed [facility] 08/17/2024 12:01:12 Imaging Results [...] Last Updated DateTime 09/17/2024 [facility] 10:38:39 Date Recorded Body height Body mass index (BMI) Body weight Body temperature Heart rate Oxygen saturation Oxygen saturation in Arterial blood by Pulse oximetry Systolic blood pressure Diastolic blood pressure Provider Name and Address Organization Details Last Updated DateTime 187.96 cm 24.9 kg/m2 51311.9 2 g 97.2 [degF] 66 /min 94 % 94 % 102 mm[Hg] 54 mm[Hg] [facility] 11:31:12 Social History Question Answer Notes LastModified by Organizat ion Details LastModified Time Tobacco Smoking Status [facility] 08/17/2024 11:34:36 What Is Your Level [...] available 2023 11:33:30 Medical History Condition Response Kidney Stones N Hyperthyroidism N Autoimmune disease N Arthritis Y Cancer Y Malabsorption N Previous Radiation Therapy? N Kidney Disease N Pituitary Disorder N Implanted Cardiac Device Y Hyperparathyroidism N Skin Problems N Gynecological History N Tuberculosis Y Cardiac Disease Y Breast Cancer N Lung Disease N Hypothyroidism N Genitourinary Disease N Radiation Therapy N High Cholesterol N Liver Disease N Dialysis N Digestive Problems N Chemotherapy N Head & Neck N Anemia N Back Pain N Mental Illness N Diabetes Y Seizures/Epilepsy N Kidney Failure N Hypertension Y Past Encounters Encounter ID Performer Location Encounter Start Date Encounter Closed Date Diagnosis/Indication Diagnosis SNOMED-CT Code Diagnosis ICD10 Code Diagnosis Note [id number] MD [facility] [address] [place] [address] 05/19/2024 13:25:43 05/21/2024 06:07:21 [id number] MD [facility] [address] [place] [address] 07/23/2024 11:25:17 07/23/2024 16:41:36 [id number] FADY LAMB MD SURGERY SCHEDULE [address] [place] [address] 08/04/2024 08:27:28 08/04/2024 08:27:53 [id number] FADY LAMB MD [facility] [address] [place] [address] 08/09/2024 14:02:05 08/10/2024 04:08:34 [id number] ZORAIDA GARDNER MD [facility] [address] [place] [address] 08/17/2024 10:55:10 08/30/2024 12:23:43 Malignant neoplasm of prostate 444887082 C61 [id number] MD [facility] [address] [place] [address] 09/03/2024 11:13:19 09/03/2024 16:46:21 [id number] ZORAIDA GARDNER MD [facility] [address] [place] [address] 09/17/2024 09:29:57 09/21/2024 10:50:56 Malignant neoplasm of prostate [id number] C61 [id number] FADY LAMB MD [facility] [address] 02/28/2025 13:16:41 02/28/2025 14:52:53 Health Concerns Section Related Observation LastModified by Organization Detai ls LastModified Time None Recorded Concern Status LastModified by Organization Details LastModified Time None Recorded Advance Directives Directive None Recorded Payers Insurance Date Sequence Insurance Name Policy Number Policy Carroll Covered Member ID Carroll Member ID Guarantor Name 02/25/2025 1 [place] Martin Lezama [id number] Martin Lezama 02/25/2025 2 FOR LIFE () Martin Lezama [id number] Martin Lezama Notes Date Note Type Note [...] of the prostate by Dr. Lamb found Erica 5+4 = 9 adenocarcinoma involving between 5% and 100% of all 6 cores taken from the right side with 90% grade 4, equals Erica score 4+5=9 adenocarcinoma involving 95% - 100% of 2 out of the 3 cores taken from the area of interest with 70% grade 4, and [place] score 4+4 = 8 adenocarcinoma involving between [...] on 08/09/2024. Mr. Lezama was admitted to [facility] from 08/10/2024 through 08/15/2024 for urinary retention [...] was switched recently to methotrexate by his commercial real estate broker. His DIVINA score is 25 out of 25 with the use of Viagra. He has regular bowel movements without melena, hematochezia, tenesmus, or frequent diarrhea. 1 benign polyp was resected at his most recent colonoscopy in 2021. He smoked 1 pack of cigarettes daily for 20 years but quit in 1997. ZORAIDA GARDNRE MD [address], [place], [address], [facility] 08/29/2024 11:53:22
== END 2025-03-14 23:59 | disposition home or self-care (01) ==
LOC: RAD 15:17
PROVIDERS: PCP Family Medicine; Visit Provider Nurse Practitioner Family
DX: S32.030A Wedge compression fracture of third lumbar vertebra, initial encounter for closed fracture (principal); S22.080A Wedge compression fracture of T11-T12 vertebra, initial encounter for closed fracture; M47.816 Spondylosis without myelopathy or radiculopathy, lumbar region; Z95.2 Presence of prosthetic heart valve
CPT/HCPCS: 72148

== ENCOUNTER 2025-03-16 14:55 | Outpatient (POV) | payer MEDICARE, OTHER, SELFPAY ==
--- OUTSIDE RECORDS SUMMARY | 2025-03-16 14:59 | XMS_ITS | Data Portability ---
Author Organization [facility] & [place] [facility] ADMIN Address [address] [place] [id number] Care Team Providers Care Hospital Admissions Officer Name Role Phone MAXIMILIAN TORRES Primary Care Provider [phone] AURELIA DEL CASTILLO [facility] [phone] FADY LAMB Urologist EMERY PIEDRA Check Services Clerk GAYLA SANCHEZ Primary Care Provider [phone] Assessment No assessment recorded. Plan of Treatment Reminders Order Date Submit Date Provider Last Modified By Organization Details Last Modified Time Details Appointments Establish ed Visit 15 min 2024 11:00A M Nery lin APRN Not available Not available Not available Lab CBC w/ auto diff 2024 025 [facility], [address] [facility], [place], [address], 12/21/2024 14:21:17 hepatic function panel, serum 2024 025 [email or web address] [facility], [address] [facility], [place], [address], 01/01/2025 19:55:37 CBC w/ auto diff 2024 025 [facility], [address] [facility], [place], [address], 10/21/2024 14:27:12 hepatic function panel, serum [address] [facility] 42 [facility], [address] [facility], [place], [address], 10/28/2024 13:17:52 CBC w/ auto diff 2023 024 [facility], [address] [facility], [place], [address], 08/20/2024 11:59:13 hepatic function panel, serum 2023 024 [facility], [address] [facility], [place], [address], 08/20/2024 11:55:46 CBC w/ auto diff 2023 024 [facility], [address] [facility], [place], [address], 07/23/2024 10:11:21 hepatic function panel, serum 2023 024 [facility], [address] [facility], [place], [address], 07/23/2024 10:49:19 Referral None recorded. Procedures None recorded. Surgeries None recorded. Imaging None recorded. Medication Orders isoniazid 300 mg tablet 2023 [employer] [facility], [address] [place] [address], [id number], 08/20/2024 10:48:31 isoniazid 300 mg tablet 2023 024 [facility], [address] [place] [address], [id number], 07/26/2024 13:18:07 pyridoxin e (vitamin B6) 100 mg tablet 2023 024 [facility], [address] [place] [address], [id number], 07/23/2024 15:27:07 Patient TargetsNo targets recorded. Patient InstructionsNo instructions recorded. Reason for Referral None Reported. Results Created Date Observation Date Name Description Value Unit Range Abnormal Flag Note LastModifiedBy Organization Detail LastModifiedTime 07/23/20 24 07/23/2024 CBC AUTO W DIFF WBC 11.5 K/uL 4.0-10 .5 high Not Available [facility] ([facility] [address] [place], [address], 07/23/2024 10:11:21 07/23/20 24 07/23/2024 CBC AUTO W DIFF RBC 3.4 M/mm3 4.7-6. 1 low Not Available [facility] ([facility]) [address] [place], [address], 07/23/2024 10:11:21 07/23/20 24 07/23/2024 CBC AUTO W DIFF HGB 11.0 gm/dL 13.5-1 8.0 low Not Available [facility] ([facility]) [address] [place], [address], 07/23/2024 10:11:21 07/23/20 24 07/23/2024 CBC AUTO W DIFF HCT 34.7 % 42.0-5 2.0 low Not Available [facility] ([facility]) [address] [place], [address], 07/23/2024 10:11:21 07/23/20 24 07/23/2024 CBC AUTO W DIFF MCV 100.9 fL 78-100 high Not Available [facility] ([facility]) [address] [place], [address], 07/23/2024 10:11:21 07/23/20 24 07/23/2024 CBC AUTO W DIFF MCH 32.0 pg 27-31 high Not Available [facility] ([facility]) [address] [place], [address], 07/23/2024 10:11:21 07/23/20 24 07/23/2024 CBC AUTO W DIFF MCHC 31.7 g/dL 32-36 low Not Available [facility] ([facility]) [address] , [place], [address], 07/23/2024 10:11:21 07/23/20 24 07/23/2024 CBC AUTO W DIFF RDW 16.3 % 11.5-1 4.0 high Not Available [facility] ([facility]) [address] , [place], [address], 07/23/2024 10:11:21 07/23/20 24 07/23/2024 CBC AUTO W DIFF platelet count 310 K/uL 150-45 0 Not Available [facility] ([facility]) [address], [place], [address], 07/23/2024 10:11:21 07/23/20 24 07/23/2024 CBC AUTO W DIFF MPV 9.7 fL 6-9.5 high Not Available [facility] ([facility]) [address] , [place], [address], 07/23/2024 10:11:21 07/23/20 24 07/23/2024 CBC AUTO W DIFF neutrophil% 80.6 % 43-65 high Not Available [facility] ([facility] [address] [place], [address], 07/23/2024 10:11:21 07/23/20 24 07/23/2024 CBC AUTO W DIFF lymphocyte% 10.4 % 20.5-4 5.5 low Not Available [facility]) [address] [place], [address], 07/23/2024 10:11:21 07/23/20 24 07/23/2024 CBC AUTO W DIFF monocyte% 6.9 % 5.5-11 .7 Not Available [facility] ([facility]) [address] , [place], [address], 07/23/2024 10:11:21 07/23/20 24 07/23/2024 CBC AUTO W DIFF eosinophil% 1.0 % 0.9-2. 9 Not Available [facility] ([facility]) [address], [place], [address], 07/23/2024 10:11:21 07/23/20 24 07/23/2024 CBC AUTO W DIFF basophil% 0.4 % 0.2-1. 0 Not Available [facility] ([facility]) [address], [place], [address], 07/23/2024 10:11:21 07/23/20 24 07/23/2024 CBC AUTO W DIFF immature granulocytes % 0.7 % 0.0-0. 8 Not Available [facility] ([facility]) [address], [place], [address], 07/23/2024 10:11:21 07/23/20 24 07/23/2024 CBC AUTO W DIFF nucleated red blood cells % 0.3 % Not Available [facility] ([facility]) [address], [place], [address], 07/23/2024 10:11:21 07/23/20 24 07/23/2024 CBC AUTO W DIFF neutrophil# 9.3 K/uL 2.2-4. 8 high Not Available [facility] ([facility]) [address], [place], [address], 07/23/2024 10:11:21 07/23/20 24 07/23/2024 CBC AUTO W DIFF lymphocyte# 1.2 cell/ mcL 1.3-2. 9 low Not Available [facility] ([facility]) [address], [place], [address], 07/23/2024 10:11:21 07/23/20 24 07/23/2024 CBC AUTO W DIFF monocyte# 0.8 cell/ mcL 0.3-0. 8 Not Available [facility] ([facility]) [address] , [place], [address], 07/23/2024 10:11:21 07/23/20 24 07/23/2024 CBC AUTO W DIFF eosinophil# 0.1 cell/ mcL 0-0.2 Not Available [facility] ([facility]) [address] , [place], [address], 07/23/2024 10:11:21 07/23/20 24 07/23/2024 CBC AUTO W DIFF basophil# 0.1 cell/ mcL 0.0-1. 0 Not Available [facility] ([facility]) [address] , [place], [address], 07/23/2024 10:11:21 07/23/20 24 07/23/2024 CBC AUTO W DIFF immature gramulocytes # 0.08 K/uL Not Available [facility] ([facility]) [address] , [place], [address], 07/23/2024 10:11:21 07/23/20 24 07/23/2024 CBC AUTO W DIFF nucleated red blood cells # 0.03 K/uL Not Available [facility] ([facility]) [address], [place], [address], 07/23/2024 10:11:21 07/23/20 24 07/23/2024 CBC AUTO W DIFF manual differential NO Not Available [facility]) [address] , [place], [address], 07/23/2024 10:11:21 07/23/20 24 07/23/2024 HEPAT IC FUNCT IONAL PANEL total protein 7.3 g/dL 6.4-8. 2 Not Available [facility] [address], [place], [address], 07/23/2024 10:22:19 07/23/20 24 07/23/2024 HEPAT IC FUNCT IONAL PANEL albumin 3.6 g/dL 3.4-5. 0 Not Available [facility] [address], [place], [address], 07/23/2024 10:22:19 07/23/20 24 07/23/2024 HEPAT IC FUNCT IONAL PANEL bilirubin direct 0.1 O.oo-0 .30 Not Available [facility]) [address], [place], [address], 07/23/2024 10:22:19 07/23/20 24 07/23/2024 HEPAT IC FUNCT IONAL PANEL bilirubin total 0.40 mg/dL 0.10-1 .00 Not Available [facility] [address], [place], [address], 07/23/2024 10:22:19 07/23/20 24 07/23/2024 HEPAT IC FUNCT IONAL PANEL bilirubin indirect 0.30 Not Available [facility] ([facility]) [address], [place], [address], 07/23/2024 10:22:19 07/23/20 24 07/23/2024 HEPAT IC FUNCT IONAL PANEL AST (SGOT) 17 U/L 0-37 Not Available [facility] ([facility] [address], [place], [address], 07/23/2024 10:22:19 07/23/20 24 07/23/2024 HEPAT IC FUNCT IONAL PANEL ALT (SGPT) 45 U/L 0-65 Not Available [facility] ([facility]) [address] , [place], [address], 07/23/2024 10:22:19 07/23/20 24 07/23/2024 HEPAT IC FUNCT IONAL PANEL alk phosphatase 49 U/L 46-116 Not Available [facility] ([facility]) [address], [place], [address], 07/23/2024 10:22:19 08/20/20 24 08/20/2024 HEPAT IC FUNCT IONAL PANEL total protein 7.4 g/dL 6.4-8. 2 Not Available [facility] ([facility]) [address], [place], [address], 08/20/2024 11:54:21 08/20/20 24 08/20/2024 HEPAT IC FUNCT IONAL PANEL albumin 4.1 g/dL 3.4-5. 0 Not Available [facility] ([facility]) [address] , [place], [address], 08/20/2024 11:54:21 08/20/20 24 08/20/2024 HEPAT IC FUNCT IONAL PANEL bilirubin direct 0.1 O.oo-0 .30 Not Available [facility] ([facility]) [address] , [place], [address], 08/20/2024 11:54:21 08/20/20 24 08/20/2024 HEPAT IC FUNCT IONAL PANEL bilirubin total 0.50 mg/dL 0.10-1 .00 Not Available [facility] ([facility]) [address] , [place], [address], 08/20/2024 11:54:21 08/20/20 24 08/20/2024 HEPAT IC FUNCT IONAL PANEL bilirubin indirect 0.40 Not Available [facility] ([facility]) [address] , [place], [address], 08/20/2024 11:54:21 08/20/20 24 08/20/2024 HEPAT IC FUNCT IONAL PANEL AST (SGOT) 20 U/L 0-37 Not Available [facility] ([facility]) [address], [place], [address], 08/20/2024 11:54:21 08/20/20 24 08/20/2024 HEPAT IC FUNCT IONAL PANEL ALT (SGPT) 64 U/L 0-65 Not Available [facility] ([facility]) [address], [place], [address], 08/20/2024 11:54:21 08/20/20 24 08/20/2024 HEPAT IC FUNCT IONAL PANEL alk phosphatase 53 U/L 46-116 Not Available [facility] ([facility]) [address], [place], [address], 08/20/2024 11:54:21 10/21/19 25 10/21/2024 HEPAT IC FUNCT IONAL PANEL total protein 6.9 g/dL 6.4-8. 2 Not Available [facility] ([facility]) [address], [place], [address], 10/21/2024 11:57:13 10/21/19 25 10/21/2024 HEPAT IC FUNCT IONAL PANEL albumin 3.6 g/dL 3.4-5. 0 Not Available [facility] ([facility]) [address] , [place], [address], 10/21/2024 11:57:13 10/21/19 25 10/21/2024 HEPAT IC FUNCT IONAL PANEL bilirubin direct 0.2 O.oo-0 .30 Not Available [facility] ([facility]) [address] [place], [address], 10/21/2024 11:57:13 10/21/19 25 10/21/2024 HEPAT IC FUNCT IONAL PANEL bilirubin total 0.50 mg/dL 0.10-1 .00 Not Available [facility]) [address], [address], 10/21/2024 11:57:13 10/21/19 25 10/21/2024 HEPAT IC FUNCT IONAL PANEL bilirubin indirect 0.30 Not Available [facility] ([facility]) [address] , [place], [address], 10/21/2024 11:57:13 10/21/19 25 10/21/2024 HEPAT IC FUNCT IONAL PANEL AST (SGOT) 23 U/L 0-37 Not Available [facility] ([facility]) [address] , [place], [address], 10/21/2024 11:57:13 10/21/19 25 10/21/2024 HEPAT IC FUNCT IONAL PANEL ALT (SGPT) 59 U/L 0-65 Not Available [facility] ([facility]) [address] , [place], [address], 10/21/2024 11:57:13 10/21/19 25 10/21/2024 HEPAT IC FUNCT IONAL PANEL alk phosphatase 55 U/L 46-116 Not Available [facility]) [address] , [place], [address], 10/21/2024 11:57:13 10/21/19 25 10/21/2024 CBC AUTO W DIFF WBC 5.0 K/uL 4.0-10 .5 Not Available [facility] ([facility]) [address] , [place], [address], 10/21/2024 14:27:12 10/21/19 25 10/21/2024 CBC AUTO W DIFF RBC 3.6 M/mm3 4.7-6. 1 low Not Available [facility] ([facility]) [address], [place], [address], 10/21/2024 14:27:12 10/21/19 25 10/21/2024 CBC AUTO W DIFF HGB 9.5 gm/dL 13.5-1 8.0 low Not Available [facility]) [address], [place], [address], 10/21/2024 14:27:12 10/21/19 25 10/21/2024 CBC AUTO W DIFF HCT 32.8 % 42.0-5 2.0 low Not Available [facility] ([facility]) [address] , [place], [address], 10/21/2024 14:27:12 10/21/19 25 10/21/2024 CBC AUTO W DIFF MCV 90.1 fL 78-100 Not Available [facility]) [address] , [place], [address], 10/21/2024 14:27:12 10/21/19 25 10/21/2024 CBC AUTO W DIFF MCH 26.1 pg 27-31 low Not Available [facility]) [address] , [place], [address], 10/21/2024 14:27:12 10/21/19 25 10/21/2024 CBC AUTO W DIFF MCHC 29.0 g/dL 32-36 low Not Available [facility]) [address] , [place], [address], 10/21/2024 14:27:12 10/21/19 25 10/21/2024 CBC AUTO W DIFF RDW 19.9 % 11.5-1 4.0 high Not Available [facility] [address] [place], [address], 10/21/2024 14:27:12 10/21/19 25 10/21/2024 CBC AUTO W DIFF platelet count 237 K/uL 150-45 0 Not Available [facility] ([facility]) [address] , [place], [address], 10/21/2024 14:27:12 10/21/19 25 10/21/2024 CBC AUTO W DIFF MPV 10.1 fL 6-9.5 high Not Available [facility]) [address] [place], [address], 10/21/2024 14:27:12 10/21/19 25 10/21/2024 CBC AUTO W DIFF neutrophil% 87.2 % 43-65 high Not Available [facility] ([facility]) [address] [place], [address], 10/21/2024 14:27:12 10/21/19 25 10/21/2024 CBC AUTO W DIFF lymphocyte% 6.4 % 20.5-4 5.5 low Not Available [facility] [address] [place], [address], 10/21/2024 14:27:12 10/21/19 25 10/21/2024 CBC AUTO W DIFF monocyte% 4.6 % 5.5-11 .7 low Not Available [facility] [address] [place], [address], 10/21/2024 14:27:12 10/21/19 25 10/21/2024 CBC AUTO W DIFF eosinophil% 0.2 % 0.9-2. 9 low Not Available [facility] [address] [place], [address], 10/21/2024 14:27:12 10/21/19 25 10/21/2024 CBC AUTO W DIFF basophil% 0.6 % 0.2-1. 0 Not Available [facility] [address] [place], [address], 10/21/2024 14:27:12 10/21/19 25 10/21/2024 CBC AUTO W DIFF immature granulocytes % 1.0 % 0.0-0. 8 high Not Available [facility] ([facility]) [address], [place], [address], 10/21/2024 14:27:12 10/21/19 25 10/21/2024 CBC AUTO W DIFF nucleated red blood cells % 0.6 % Not Available [facility] ([facility]) [address], [place], [address], 10/21/2024 14:27:12 10/21/19 25 10/21/2024 CBC AUTO W DIFF neutrophil# 4.4 K/uL 2.2-4. 8 Not Available [facility] ([facility]) [address], [place], [address], 10/21/2024 14:27:12 10/21/19 25 10/21/2024 CBC AUTO W DIFF lymphocyte# 0.3 cell/ mcL 1.3-2. 9 low Not Available [facility] ([facility]) [address], [place], [address], 10/21/2024 14:27:12 10/21/19 25 10/21/2024 CBC AUTO W DIFF monocyte# 0.2 cell/ mcL 0.3-0. 8 low Not Available [facility] ([facility]) [address], [place], [address], 10/21/2024 14:27:12 10/21/19 25 10/21/2024 CBC AUTO W DIFF eosinophil# 0.0 cell/ mcL 0-0.2 Not Available [facility] ([facility]) [address], [place], [address], 10/21/2024 14:27:12 10/21/19 25 10/21/2024 CBC AUTO W DIFF basophil# 0.0 cell/ mcL 0.0-1. 0 Not Available [facility] ([facility]) [address], [place], [address], 10/21/2024 14:27:12 10/21/19 25 10/21/2024 CBC AUTO W DIFF immature gramulocytes # 0.05 K/uL Not Available [facility] ([facility]) [address], [place], [address], 10/21/2024 14:27:12 10/21/19 25 10/21/2024 CBC AUTO W DIFF nucleated red blood cells # 0.03 K/uL Not Available [facility] [address], [place], [address], 10/21/2024 14:27:12 10/21/19 25 10/21/2024 CBC AUTO W DIFF manual differential NO Not Available [facility] [address] , [place], [address], 10/21/2024 14:27:12 10/21/19 25 10/21/2024 CBC AUTO W DIFF platelet estimate ADEQUA TE adequa te Not Available [facility] ([facility] [address], [place], [address], 10/21/2024 14:27:12 10/21/19 25 10/21/2024 CBC AUTO W DIFF platelet morphology NORMAL normal Not Available [facility] [address] , [place], [address], 10/21/2024 14:27:12 10/21/19 25 10/21/2024 CBC AUTO W DIFF RBC morphology NORMAL normal Not Available [facility] ([facility]) [address] , [place], [address], 10/21/2024 14:27:12 10/21/19 25 10/21/2024 CBC AUTO W DIFF anisocytosis SLIGHT none seen Not Available [facility] [address], [place], [address], 10/21/2024 14:27:12 10/21/19 25 10/21/2024 CBC AUTO W DIFF poikilocytos is SLIGHT none seen Not Available [facility] ([facility] [address], [place], [address], 10/21/2024 14:27:12 12/22/19 25 12/21/2024 CBC AUTO W DIFF WBC 6.1 K/uL 4.0-10 .5 Not Available [facility] [address], [place], [address], 12/21/2024 14:21:17 12/22/19 25 12/21/2024 CBC AUTO W DIFF RBC 3.6 M/mm3 4.7-6. 1 low Not Available [facility] [address], [place], [address], 12/21/2024 14:21:17 12/22/19 25 12/21/2024 CBC AUTO W DIFF HGB 10.1 gm/dL 13.5-1 8.0 low Not Available [facility] [address], [place], [address], 12/21/2024 14:21:17 12/22/19 25 12/21/2024 CBC AUTO W DIFF HCT 33.0 % 42.0-5 2.0 low Not Available [facility] [address], [place], [address], 12/21/2024 14:21:17 12/22/19 25 12/21/2024 CBC AUTO W DIFF MCV 90.7 fL 78-100 Not Available [facility] [address], [place], [address], 12/21/2024 14:21:17 12/22/19 25 12/21/2024 CBC AUTO W DIFF MCH 27.7 pg 27-31 Not Available [facility] ([facility] [address], [place], [address], 12/21/2024 14:21:17 12/22/19 25 12/21/2024 CBC AUTO W DIFF MCHC 30.6 g/dL 32-36 low Not Available [facility] ([facility] [address], [place], [address], 12/21/2024 14:21:17 12/22/19 25 12/21/2024 CBC AUTO W DIFF RDW 22.9 % 11.5-1 4.0 high Not Available [facility] ([facility] [address] , [place], [address], 12/21/2024 14:21:17 12/22/19 25 12/21/2024 CBC AUTO W DIFF platelet count 275 K/uL 150-45 0 Not Available [facility] ([facility]) [address] , [place], [address], 12/21/2024 14:21:17 12/22/19 25 12/21/2024 CBC AUTO W DIFF MPV 9.1 fL 6-9.5 Not Available [facility] ([facility]) [address] , [place], [address], 12/21/2024 14:21:17 12/22/19 25 12/21/2024 CBC AUTO W DIFF neutrophil% 80.2 % 43-65 high Not Available [facility] ([facility] [address] [place], [address], 12/21/2024 14:21:17 12/22/19 25 12/21/2024 CBC AUTO W DIFF lymphocyte% 8.4 % 20.5-4 5.5 low Not Available [facility] ([facility] [address] [place], [address], 12/21/2024 14:21:17 12/22/19 25 12/21/2024 CBC AUTO W DIFF monocyte% 9.4 % 5.5-11 .7 Not Available [facility] ([facility]) [address], [place], [address], 12/21/2024 14:21:17 12/22/19 25 12/21/2024 CBC AUTO W DIFF eosinophil% 1.0 % 0.9-2. 9 Not Available [facility] ([facility] [address] [place], [address], 12/21/2024 14:21:17 12/22/19 25 12/21/2024 CBC AUTO W DIFF basophil% 0.5 % 0.2-1. 0 Not Available [facility] ([facility] [address] [place], [address], 12/21/2024 14:21:17 12/22/19 25 12/21/2024 CBC AUTO W DIFF immature granulocytes % 0.5 % 0.0-0. 8 Not Available [facility] ([facility] [address] [place], [address], 12/21/2024 14:21:17 12/22/19 25 12/21/2024 CBC AUTO W DIFF nucleated red blood cells % 0.0 % Not Available [facility] ([facility] [address] [place], [address], 12/21/2024 14:21:17 12/22/19 25 12/21/2024 CBC AUTO W DIFF neutrophil# 4.9 K/uL 2.2-4. 8 high Not Available [facility] [address] [place], [address], 12/21/2024 14:21:17 12/22/19 25 12/21/2024 CBC AUTO W DIFF lymphocyte# 0.5 cell/ mcL 1.3-2. 9 low Not Available [facility] ([facility]) [address], [place], [address], 12/21/2024 14:21:17 12/22/19 25 12/21/2024 CBC AUTO W DIFF monocyte# 0.6 cell/ mcL 0.3-0. 8 Not Available [facility] ([facility] [address], [place], [address], 12/21/2024 14:21:17 12/22/19 25 12/21/2024 CBC AUTO W DIFF eosinophil# 0.1 cell/ mcL 0-0.2 Not Available [facility] ([facility] [address], [place], [address], 12/21/2024 14:21:17 12/22/19 25 12/21/2024 CBC AUTO W DIFF basophil# 0.0 cell/ mcL 0.0-1. 0 Not Available [facility] ([facility]) [address], [place], [address], 12/21/2024 14:21:17 12/22/19 25 12/21/2024 CBC AUTO W DIFF immature gramulocytes # 0.03 K/uL Not Available [facility] ([facility] [address] [facility], [place], [address], 12/21/2024 14:21:17 12/22/19 25 12/21/2024 CBC AUTO W DIFF nucleated red blood cells # 0.00 K/uL Not Available [facility] [address] [facility], [place], [address], 12/21/2024 14:21:17 12/22/19 25 12/21/2024 CBC AUTO W DIFF manual differential NO Not Available [facility] ([facility] [address] [place], [address], 12/21/2024 14:21:17 12/22/19 25 12/21/2024 HEPAT IC FUNCT IONAL PANEL total protein 7.2 g/dL 6.4-8. 2 Not Available [facility] ([facility]) [address], [place], [address], 12/21/2024 14:51:30 12/22/19 25 12/21/2024 HEPAT IC FUNCT IONAL PANEL albumin 4.1 g/dL 3.4-5. 0 Not Available [facility] ([facility]) [address], [place], [address], 12/21/2024 14:51:30 12/22/19 25 12/21/2024 HEPAT IC FUNCT IONAL PANEL bilirubin direct 0.0 O.oo-0 .30 Not Available [facility] ([facility]) [address], [place], [address], 12/21/2024 14:51:30 12/22/19 25 12/21/2024 HEPAT IC FUNCT IONAL PANEL bilirubin total 0.40 mg/dL 0.10-1 .00 Not Available [facility] ([facility] [address], [place], [address], 12/21/2024 14:51:30 12/22/19 25 12/21/2024 HEPAT IC FUNCT IONAL PANEL bilirubin indirect 0.40 Not Available [facility] ([facility]) [address], [place], [address], 12/21/2024 14:51:30 12/22/19 25 12/21/2024 HEPAT IC FUNCT IONAL PANEL AST (SGOT) 32 U/L 0-37 Not Available [facility] ([facility]) [address], [place], [address], 12/21/2024 14:51:30 12/22/19 25 12/21/2024 HEPAT IC FUNCT IONAL PANEL ALT (SGPT) 50 U/L 0-65 Not Available [facility] ([facility]) [address], [place], [address], 12/21/2024 14:51:30 12/22/19 25 12/21/2024 HEPAT IC FUNCT IONAL PANEL alk phosphatase 122 U/L 46-116 high Not Available [facility] ([facility]) [address], [place], [address], 12/21/2024 14:51:30 06/11/20 24 05/03/2024 XR, chest , 2 view No observ ation record ed. [address], [place], [address], 08/09/2024 12:45:51 Result Notes None recorded. Problems Name Problem SNOMED Code Status Onset Date Resolution Date Notes Provider Name and Address Organization Details Recorded Time Inactive tuberculosis 25100223 Active 2024 Comfort Grimaldo null, [facility] - [facility] - [place] & [place] 5 11:31:55 Sleep apnea 81640606 Active 2021 Ben Alexander kennedy, [facility] [place] & [place] 2 13:02:29 Diabetes mellitus 13080833 Active 2021 Ben benavides, [facility] - [facility] - [place] & [place] 2 13:02:36 Irregular heart beat 224589882 Active 2021 Ben benavides, [facility] & [place] 2 13:02:49 Hypertensive disorder 53893651 Active 2021 Ben benavides, [facility] & [place] 2 13:02:55 Problem Notes None recorded. Procedures Surgical History Date Name Laterality Status Provider Name and Address Organization Details Recorded Time 09/15/18 98 Cardiovascular Surgery completed Ben Munoz [facility] [place] & [place] 08/05/2022 13:01:39 09/15/18 98 Other completed Ben BEVERLY - [facility] & [place] 08/05/2022 13:01:39 procedure on knee completed Ben BEVERLY - [facility] & [place] 08/05/2022 13:05:30 Imaging Results None recorded. Procedure [...] Updated DateTime 5 187.96 cm 26.1 kg/m2 41924.2 5 g 98.2 [degF] 67 /min 92 % 92 % 94 mm[Hg] 59 mm[Hg] Preeti Winchester [place] - [facility] & [place] 5 10:40:12 Date Recorded Body height Heart rate Oxygen saturation Oxygen saturation in Arterial blood by Pulse oximetry Heart rate Body temperature Body mass index (BMI) Body weight Systolic blood pressure Diastolic blood pressure Provider Name and Address Organization Details Last Updated DateTime 5 187.96 cm 79 /min 94 % 94 % 79 /min 98 [degF] 25.5 kg/m2 70020.8 8 g 122 mm[Hg] 67 mm[Hg] Tammy Jaimes [facility] & [place] 5 13:43:20 Date Recorded Body height Heart rate Oxygen saturation Oxygen saturation in Arterial blood by Pulse oximetry Body temperature Body mass index (BMI) Body weight Systolic blood pressure Diastolic blood pressure Provider Name and Address Organization Details Last Updated DateTime 4 187.96 cm 54 /min 97 % 97 % 96.6 [degF] 24.9 kg/m2 33526.9 2 g 120 mm[Hg] 82 mm[Hg] Comfort Grimaldo [facility] & [place] 4 10:13:15 Date Recorded Body height Oxygen saturation Oxygen saturation in Arterial blood by Pulse oximetry Heart rate Systolic blood pressure Diastolic blood pressure Provider Name and Address Organization Details Last Updated DateTime 4 187.96 cm 91 % 91 % 56 /min 133 mm[Hg] 74 mm[Hg] [facility] & [place] 4 09:22:06 Date Recorded Body height Body mass index (BMI) Body weight Body temperature Heart rate Oxygen saturation Oxygen saturation in Arterial blood by Pulse oximetry Systolic blood pressure Diastolic blood pressure Provider Name and Address Organization Details Last Updated DateTime 4 187.96 cm 25.3 kg/m2 68874.7 g 96.7 [degF] 66 /min 93 % 93 % 130 mm[Hg] 70 mm[Hg] Preeti GAINES [facility] & [place] 4 10:33:55 Social History Question Answer Notes LastModified by Done. Details LastModified Time Tobacco Smoking Status [facility] [place] 08/05/2022 13:01:35 Do You Have An Advance Directive? Yes [email or web address] Information not available 08/05/2022 Are You Blind Or Do You Have Difficulty Seeing? No [email or web address] Information not available 08/05/2022 What Was The Date Of Your Most Recent Tobacco Screening? 06/21/2024 [email or web address] Information not available 06/24/2024 Are You Passively Exposed To Smoke? No [email or web address] Information not available 08/05/2022 How Much Tobacco Do You Smoke? No [email or web address] Information not available 08/05/2022 How Many Years Have You Smoked Tobacco? 30 Years In The Past [email or web address] Information not available 08/05/2022 Sex: Male Functional Status Question Answer Note LastModified by Organizat ion Details LastModified Time Do you use any illicit or recreational drugs? No [email or web address] Information not available 08/05/2022 What is your level of alcohol consumption? None [email or web address] Information not available 08/05/2022 Do you or have you ever used smokeless tobacco? Never used smokeless tobacco [email or web address] Information not available 08/05/2022 What is your exercise level? Occasional [email or web address] Information not available 08/05/2022 Mental Status Question Answer Note LastModified by Organization D etails LastModified Time Do you feel stressed (tense, restless, nervous, or anxious, or unable to sleep at night)? [id number] [email or web address] Information not available 08/05/2022 Family History Relationship Description Onset Age of this Age Resolved Age Notes LastModified by Organization Details LastModified Time Mother Myocardial infarction dec [email or web address] Not available 08/05 13:03:49 Mother Kidney disease [...] Condition Response Diabetes Y Autoimmune disease Y Ear or Hearing Problems Y High Cholesterol Y Deep Vein Thrombosis Y Obstructive Sleep Apnea Y Hypertension Y Past Encounters Encounter ID Performer Location Encounter Start Date Encounter Closed Date Diagnosis/Indication Diagnosis SNOMED-CT Code Diagnosis ICD10 Code Diagnosis Note [id number] Sanket Schaeffer Jr, MD [facility] [address] [place] [address] [employer] [id number] 08/05/2022 12:30:55 08/05/2022 13:26:38 Benign prostatic hyperplasia with outflow obstruction 164963243 N40.1 Patient with lower urinary tract symptoms due to BPH. He is doing well on the tamsulosin and is to continue. Erectile dysfunction 860 171267 F52.21 patient with history of erectile dysfunctio n. He states he does well with the sildenafil 100 mg p.r.n.. [id number] Sanket Schaeffer Jr, MD [facility] [address] [place] [address] [employer] [id number] 02/06/2023 13:40:33 02/06/2023 14:19:48 Prostate specific antigen above reference range 897268930 R97.20 Patient with history of elevated PSA. [...] tract symptoms due to benign prostatic hypertrophy 3588118247 9101 N40.1 patient with history of BPH. He is voiding well on the tamsulosin and is to continue. Erectile dysfunction 860 109466 F52.21 patient with history of erectile dysfunctio n. He states he does well with the sildenafil 100 mg p.r.n.. [id number] Sanket Schaeffer Jr, MD [facility] [address] [phone] 08/13/2023 08:41:10 08/13/2023 09:26:44 Prostate specific antigen above reference range 549481166 R97.20 Patient with history of elevated PSA. His recent PSA 2 weeks ago Was 11.5. This is we will higher than his previous of 9.6. It has been as high as 10.1 in the past. We again discussed prostate biopsy versus monitoring and he wishes to continue monitoring . Lower urin matty tract symptoms due to benign prostatic hypertrophy 4015628662 9101 N40.1 patient with history of BPH. [...] direction at this time. Erectile dysfunction 860 169439 F52.21 patient with history of erectile dysfunctio n. He states he does well with the sildenafil 100 mg p.r.n.. We have discussed not taking the sildenafil within 4 hours of the Flomax. [id number] Sanket Schaeffer Jr, MD [facility] [address] [phone] 02/13/2024 09:03:41 02/13/2024 09:40:36 Prostate specific antigen above reference range 894969780 R97.20 Patient with history of elevated PSA. [...] tract symptoms due to benign prostatic hypertrophy 4823945465 9101 N40.1 patient with history of BPH. patient states some increased frequency and nocturia. patient has not improved in the past with increasing his tamsulosin 2 a day or with oxybutynin . He complains of decreased flow. We would discussed other options but they require surgical procedures as well. [id number] Sanket Schaeffer Jr, MD [facility] [address] [phone] 11/12/2023 09:13:53 11/12/2023 10:07:59 Lower urinary tract symptoms due to benign prostatic hypertrophy 4962453171 9101 N40.1 patient with history of BPH. [...] Prostate s pecific antigen above reference range 876113611 R97.20 Patient with history of elevated PSA. [...] PSA in 3 months. Erectile dysfunction 860 181258 F52.21 patient with history of erectile dysfunctio n. He states he does well with the sildenafil 100 mg p.r.n.. We have discussed not taking the sildenafil within 4 hours of the Flomax. 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 Patient is negative for any pulmonary symptoms. Chest xray normal. Patient is on suppressiv e medication s for PMR. Patient takes Warfarin due to his mechanical heart valve. Will start Isoniazid and Vitamin B6. Will see patient back in 1 month. Plan will be to complete a 9 month regimen. All questions answered. [id number] [facility] [facility] [address] [place] [address] 07/23/2024 09:14:15 07/23/2024 09:34:06 Inactive tuberculosis 59540626 Z22.7 History of being in the . [...] 1 month. High risk medication monitoring indicated [id number] 0060085 Z76.89 Will check a CBC and hepatic function panel due to the penitentiary use of Isoniazid. Will monitor weight regularly and check for adverse effects. [id number] [facility] [facility] [address] [place] [address] 08/20/2024 10:25:17 08/20/2024 10:44:10 Inactive tuberculosis 01943845 Z22.7 History of being in the . [...] 1 month. High risk medication monitoring indicated 0758310938 9297625 Z76.89 Will check a CBC and hepatic function panel due to the penitentiary use of Isoniazid. Will monitor weight regularly and check for adverse effects. [id number] [facility] [facility] [address] [place] [address] 10/21/2024 10:32:10 10/21/2024 10:47:20 Inactive tuberculosis 17429611 Z22.7 History of being in the . [...] 2 months. 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 Will monitor weight regularly and check for adverse effects. [id number] Nery [place] in, SOCIAL MEDIA CONTENT SPECIALIST [facility] Infectiou s Disease -[address] [place] [address] 12/21/2024 13:36:37 12/21/2024 13:51:52 Inactive tuberculosis 02538312 Z22.7 History of being in the . [...] 3 months. 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 Will monitor weight regularly [...] 1 *SELF PAY* Xu Lezama 12/22/2024 2 [facility] Martin Lezama [id number] Martin Lezama 12/18/2024 1 [place] (MEDICARE[place] Martin Lezama [id number] Martin Lezama Notes Date Note Type Note [...] home. Nery Lee APRN [address], [place], [address], [facility] & [place] 06/24/2024 10:58:43 07/23/2024 text/html patient presents to [...] symptoms. Denies any fevers. [address], [place], [address], [facility] & [place] 07/23/2024 09:37:00 08/20/2024 text/html patient presents to [...] will start radiation treatment. [address], [place], [address], [place] [facility] & [place] 08/20/2024 10:49:26 10/21/2024 text/html patient presents to [...] cancer. Nery Lee APRN [address], [place], [address], [facility] [place] 10/21/2024 11:35:54 12/21/2024 text/html patient presents to [...] cancer. Nery Lee APRN [address], [place], [address], [place] [facility] & [place] 12/21/2024 13:51:11
--- OUTSIDE RECORDS SUMMARY | 2025-03-16 14:59 | XMS_ITS | Data Portability ---
Author Organization [facility] MARY NicholsS [place]OS[place] Address [address] [facility] [place] [address] Assessment Encounter Date Assessment Date Assessment LastModified [...] Lab urinalysi s panel, auto [address] [facility], [address], [address], [place], [address], 02/28/2025 14:44:08 PSA, serum or plasma [address] [facility], [address], [address], [place], [address], 02/28/2025 14:44:08 urinalysi s panel, auto [address] [facility], [address], [address], [place], [address], 09/05/2024 22:40:08 Referral None recorded. Procedures None recorded. Surgeries None recorded. Imaging None recorded. Medication Orders levofloxa brittney 750 mg tablet 2023 [facility], [address] [place] [address] [address], [place], [place], [id number], 07/26/2024 13:18:08 oxybutyni n chloride ER 5 mg tablet,ex tended release 24 hr 2023 [facility], [address] [place] [address] [address], [place], [place], [id number], 07/26/2024 13:18:07 tamsulosi n 0.4 mg capsule 2023 024 [facility], [address] [facility], [place], [address], 07/25/2024 14:38:23 Patient TargetsNo targets recorded. Patient Instructions Encounter Date Encounter Id Patient Instructions Last Modified By Organization Details Last Modified Time 08/09/2024 [id number] learning about depression [email or web address] Not available 08/09/2024 21:12:50 Reason for Referral None Reported. Results Created Date Observation Date Name Description Value Unit Range Abnormal Flag Note LastModifiedBy Organization Detail LastModifiedTime 08/04/20 24 08/04/2024 PROTH ROMBI N TIME prothrombin time 11.5 secon ds 9.2-11 .0 high Not Available [facility] [address] [place], [address], 08/04/2024 08:45:13 08/04/2008/04/2024 PROTH ROMBI N TIME [...] NICAL PROST HETIC VALVE S Not Available [facility] [address] [place], [address], 08/04/2024 08:45:13 08/04/2008/04/2024 SURGI LAVERNE surgical SEE [...] rmed on tissu e from case [id number] 1. The case repor t, slide s, [...] 14:29 Page 1 of 1 Not Available [facility] [address] [place] [address], [address], 08/10/2024 13:53:39 09/03/20 24 09/03/2024 urina lysis panel , auto Unknown Analyte Clean Catch Not Available [facility] [address], [place], [address], 09/03/2024 12:05:04 09/03/20 24 09/03/2024 urina lysis panel , auto Unknown Analyte Yellow Not Available [facility] [address], [place], [address], 09/03/2024 12:05:04 09/03/20 24 09/03/2024 urina lysis panel , auto Unknown Analyte Clear Not Available [facility] [place] [address], [place], [address], 09/03/2024 12:05:04 09/03/20 24 09/03/2024 urina lysis panel , auto Unknown Analyte 1.015 Not Available [facility] [address], [place], [address], 09/03/2024 12:05:04 09/03/20 24 09/03/2024 urina lysis panel , auto Unknown Analyte 1.003- 1.035 Not Available [facility] [address], [place], [address], 09/03/2024 12:05:04 09/03/20 24 09/03/2024 urina lysis panel , auto Unknown Analyte 5.0 Not Available [facility] [address], [place], [address], 09/03/2024 12:05:04 09/03/20 24 09/03/2024 urina lysis panel , auto Unknown Analyte 5.0-8. 0 Not Available [facility] [address], [place], [address], 09/03/2024 12:05:04 09/03/20 24 09/03/2024 urina lysis panel , auto Unknown Analyte Negati ve Not Available [facility] [address], [place], [address], 09/03/2024 12:05:04 09/03/20 24 09/03/2024 urina lysis panel , auto Unknown Analyte Negati ve Not Available [facility] [address], [place], [address], 09/03/2024 12:05:04 09/03/20 24 09/03/2024 urina lysis panel , auto Unknown Analyte Negati ve Not Available [facility] [address], [place], [address], 09/03/2024 12:05:04 09/03/20 24 09/03/2024 urina lysis panel , auto Unknown Analyte Negati ve Not Available [facility] [address], [place], [address], 09/03/2024 12:05:04 09/03/20 24 09/03/2024 urina lysis panel , auto Unknown Analyte Negati ve Not Available [facility] [address], [place], [address], 09/03/2024 12:05:04 09/03/20 24 09/03/2024 urina lysis panel , auto Unknown Analyte Negati ve Not Available [facility] [address], [place], [address], 09/03/2024 12:05:04 09/03/20 24 09/03/2024 urina lysis panel , auto Unknown Analyte >1000 mg/dl Not Available [facility] [address], [place], [address], 09/03/2024 12:05:04 09/03/20 24 09/03/2024 urina lysis panel , auto Unknown Analyte Normal Not Available [facility] [address], [place], [address], 09/03/2024 12:05:04 09/03/20 24 09/03/2024 urina lysis panel , auto Unknown Analyte Negati ve Not Available [facility] [address], [place], [address], 09/03/2024 12:05:04 09/03/2009/03/2024 urina lysis panel , auto Unknown Analyte Negati ve Not Available [facility] [address], [place], [address], 09/03/2024 12:05:04 09/03/20 24 09/03/2024 urina lysis panel , auto Unknown Analyte Normal Not Available [facility] [address], [place], [address], 09/03/2024 12:05:04 09/03/2009/03/2024 urina lysis panel , auto Unknown Analyte Normal 1 mg/dl Not Available [facility] [address], [place], [address], 09/03/2024 12:05:04 09/03/20 24 09/03/2024 urina lysis panel , auto Unknown Analyte Negati ve Not Available [facility] [address], [place], [address], 09/03/2024 12:05:04 09/03/20 24 09/03/2024 urina lysis panel , auto Unknown Analyte Negati ve Not Available [facility] [address], [place], [address], 09/03/2024 12:05:04 09/03/20 24 09/03/2024 urina lysis panel , auto Unknown Analyte 250 Arslan/ul Not Available [facility] [address], [place], [address], 09/03/2024 12:05:04 09/03/20 24 09/03/2024 urina lysis panel , auto Unknown Analyte Negati ve Not Available [facility] [address], [place], [address], 09/03/2024 12:05:04 02/29/20 25 02/28/2025 urina lysis panel , auto Unknown Analyte Clean Catch Not Available [facility] [address], [place], [address], 02/28/2025 14:04:51 02/29/20 25 02/28/2025 urina lysis panel , auto Unknown Analyte Yellow Not Available [facility] [address], [place], [address], 02/28/2025 14:04:51 02/29/20 25 02/28/2025 urina lysis panel , auto Unknown Analyte Clear Not Available [facility] [address], [place], [address], 02/28/2025 14:04:51 02/29/20 25 02/28/2025 urina lysis panel , auto Unknown Analyte 1.020 Not Available [facility] [address], [place], [address], 02/28/2025 14:04:51 02/29/20 25 02/28/2025 urina lysis panel , auto Unknown Analyte 1.003 - 1.030 Not Available [facility] [address], [place], [address], 02/28/2025 14:04:51 02/29/20 25 02/28/2025 urina lysis panel , auto Unknown Analyte 5.0 Not Available [facility] [address], [place], [address], 02/28/2025 14:04:51 02/29/20 25 02/28/2025 urina lysis panel , auto Unknown Analyte 5.0 - 8.0 Not Available [facility] [address], [place], [address], 02/28/2025 14:04:51 02/29/20 25 02/28/2025 urina lysis panel , auto Unknown Analyte 75 Vieth/uL Not Available [facility] [address], [place], [address], 02/28/2025 14:04:51 02/29/20 25 02/28/2025 urina lysis panel , auto Unknown Analyte Negati ve Not Available [facility] [address], [place], [address], 02/28/2025 14:04:51 02/29/20 25 02/28/2025 urina lysis panel , auto Unknown Analyte Negati ve Not Available [facility] [address], [place], [address], 02/28/2025 14:04:51 02/29/20 25 02/28/2025 urina lysis panel , auto Unknown Analyte Negati ve Not Available [facility] [address], [place], [address], 02/28/2025 14:04:51 02/29/20 25 02/28/2025 urina lysis panel , auto Unknown Analyte Trace Not Available [facility] [address], [place], [address], 02/28/2025 14:04:51 02/29/20 25 02/28/2025 urina lysis panel , auto Unknown Analyte Negati ve Not Available [facility] [address], [place], [address], 02/28/2025 14:04:51 02/29/20 25 02/28/2025 urina lysis panel , auto Unknown Analyte >1000 mg/dL Not Available [facility] [address], [place], [address], 02/28/2025 14:04:51 02/29/20 25 02/28/2025 urina lysis panel , auto Unknown Analyte Normal Not Available [facility] [address], [place], [address], 02/28/2025 14:04:51 02/29/20 25 02/28/2025 urina lysis panel , auto Unknown Analyte Negati ve Not Available [facility] [address], [place], [address], 02/28/2025 14:04:51 02/29/20 25 02/28/2025 urina lysis panel , auto Unknown Analyte Negati ve Not Available [facility] [address], [place], [address], 02/28/2025 14:04:51 02/29/20 25 02/28/2025 urina lysis panel , auto Unknown Analyte Normal Not Available [facility] [address], [place], [address], 02/28/2025 14:04:51 02/29/20 25 02/28/2025 urina lysis panel , auto Unknown Analyte Normal Not Available [facility] [address], [place], [address], 02/28/2025 14:04:51 02/29/20 25 02/28/2025 urina lysis panel , auto Unknown Analyte 1 mg/dL Not Available [facility] [address], [place], [address], 02/28/2025 14:04:51 02/29/20 25 02/28/2025 urina lysis panel , auto Unknown Analyte Negati ve Not Available [facility] [address], [place], [address], 02/28/2025 14:04:51 02/29/20 25 02/28/2025 urina lysis panel , auto Unknown Analyte 50 Arslan/uL Not Available [facility] [address], [place], [address], 02/28/2025 14:04:51 02/29/20 25 02/28/2025 urina lysis panel , auto Unknown Analyte Negati ve Not Available [facility] [address], [place], [address], 02/28/2025 14:04:51 06/22/20 24 06/22/2024 MRI, pelvi s, w/wo contr ast [facility] [address] [facility] [place] [address] Patien t Name: TRISHA Mireles OVERMA N [...] (1 [place] [address]- 325-02 ) IV. 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 After [...] (1 x 50 ml bottle of [facility] 0407-1 414-89 ) admini stered [...] thy. There is adenop athy in the mechanical engineering intern al iliac region and along the [...] Escalona MD on 2023 12:24 PM INTERFACE [facility] [address], [address], 09/01/2024 12:29:17 09/27/19 25 09/27/2024 MRI, pelvi s, w/o contr ast [place] [address] [place] [place] [address] Patien t Name: TRISHA Mireles OVERMA N [...] 43 throug h 64 of series # [id number]. SPACE- OAR HYDROG EL: No gel is [...] Escalona MD on 025 4:20 PM INTERFACE [facility] [address] [place] [address], [address], 09/27/2024 16:25:25 Result Notes Documentation Provider Name and Address Organization Details Recorded Time Pet-ct, Skull Base To Mid-thigh Scan : [address] [address] Patient Name: MARTIN LEZAMA Patient : 1945 [...] GFR =50 6.2 mCi Ga-68 PSMA ([facility] 33858-098-47) was injected IV. After an uptake time of 76 minutes, vertex through midthigh PET imaging was performed. This was followed by a low dose attenuation correction/anatomic localization CT from vertex through the midthigh levels. Urinary tract was opacified with an injection of 50 mL Omnipaque 350 (1 x 50 ml bottle of [facility] 0020-2379-50) administered [address] scan. [...] Interpreted By: Tristan Escalona MD Not Available [facility] 09/01/2024 12:29:17 Mri, Pelvis, W/o Contrast : [place] [address] Patient Name: MARTIN LEZAMA Patient : 1945 [...] Time 02/29/20 Lupron Administration completed Harleen Porfirio [facility] 02/28/2025 14:50:38 09/03/20 24 Lupron Administration completed Sadia Ndiaye [facility] 09/03/2024 13:10:22 Vasectomy completed Sadia Ndiaye [facility] 05/19/2024 15:50:09 procedure on knee completed Sadia Senthil [facility] 05/19/2024 15:52:15 mechanical prosthetic aortic valve replacement completed Tammy Curtis [facility] 05/21/2024 09:02:43 Imaging Results None recorded. Procedure [...] Updated DateTime 02/28/2025 187.96 cm 23.8 kg/m2 78282.59 g Harleen Monroy [facility] 02/28/2025 14:14:02 Date Recorded Body height Body mass index (BMI) Body weight Provider Name and Address Organization Details Last Updated DateTime 07/23/2024 187.96 cm 24.4 kg/m2 05260.55 g Tammy Curtis [facility] 07/23/2024 12:18:57 Date Recorded Body height Body mass index (BMI) Body weight Provider Name and Address Organization Details Last Updated DateTime 08/09/2024 187.96 cm 24.4 kg/m2 22412.55 g Grazyna Terrazas [facility] 08/09/2024 14:37:05 Date Recorded Body height Body mass index (BMI) Body weight Provider Name and Address Organization Details Last Updated DateTime 09/03/2024 187.96 cm 24.4 kg/m2 71092.55 g Sadia Ndiaye [facility] 09/03/2024 13:09:35 Social History Question Answer Notes LastModified by Organizat ion Details LastModified Time Tobacco Smoking Status Former Smoker cigarettes Sadia Ndiaye [facility] 05/19/2024 15:49:08 When Did You Quit Smoking? 18+yearssin taco perez 1997 [email or web address] Information not available 05/19/2024 What Was The Date Of Your Most Recent Tobacco Screening? 02/28/2025 [email or web address] Information not available 02/28/2025 What Is Your Relationship Status? [email or web address] Information not available 05/19/2024 How Much Tobacco Do You Smoke? No Information not available 05/19/2024 Has Tobacco Cessation Counseling Been Provided? No Information not available 05/19/2024 Sex: Male Functional Status Question Answer Note LastModified by Organizat ion Details LastModified Time Do you use any illicit or recreational drugs? No [email or web address] Information not available 05/19/2024 Do you or have you ever used any other forms of tobacco or nicotine? No [email or web address] Information not available 05/19/2024 What is your level of alcohol consumption? None [email or web address] Information not available 05/19/2024 Are you currently employed? No retired [email or web address] Information not available 05/19/2024 Mental Status None recorded. Family History Nothing Reported. Medical History Condition Response Sleep Apnea Y Past Encounters Encounter ID Performer Location Encounter Start Date Encounter Closed Date Diagnosis/Indication Diagnosis SNOMED-CT Code Diagnosis ICD10 Code Diagnosis Note [id number] CJ LAMB MD [facility] [address] [place] [address] 05/19/2024 13:25:43 05/21/2024 06:07:21 Prostate specific antigen above reference range 192723720 R97.20 Considerin g his medical history I [...] needle biopsy of the prostate Large prostate 733339455 N40.0 Continue tamsulosin [id number] CJ LAMB MD [facility] [address] [place] [id number] 07/23/2024 11:25:17 07/23/2024 16:41:36 Prostate specific antigen above reference range 676683765 R97.20 We will arrange for MRI directed transrecta l ultrasound and needle biopsy of the prostate under sedation. Benign pro static hyperplasia with outflow obstruction 751737433 N40.1 Increased frequency of urination 616890139 R35.0 Trial of oxybutynin chloride [id number] CJ LAMB MD SURGERY SCHEDULE [address] [place] [address] 08/04/2024 08:27:28 08/04/2024 08:27:53 [id number] CJ LAMB MD [facility] [address] [place] [address] 08/09/2024 14:02:05 08/10/2024 04:08:34 Narcsio hematuria 377693719 R31.0 He is encouraged to drink copious fluids. We discussed that he may have issues with hematuria for prolonged period of time considerin g his chronic anticoagul ation therapy. Retention of urine 04288 4002 R33.9 Voiding trial today Malignant neoplasm of prostate 479566404 C61 We will refer to radiation oncology. Will arrange for total body bone scan [id number] ZORAIDA GARDNER MD [facility] [address] [place] [address] 08/17/2024 10:55:10 08/30/2024 12:23:43 [id number] CJ LAMB MD [facility] [address] [place] [address] 09/03/2024 11:13:19 09/03/2024 16:46:21 Malignant neoplasm of prostate [id number] C61 Follow-up 6 months with PSA [id number] ZORAIDA GARDNER MD [facility] [address] [place] [address] 09/17/2024 09:29:57 09/21/2024 10:50:56 [id number] CJ LAMB MD [facility] [address] [place] [address] 02/28/2025 13:16:41 02/28/2025 14:52:53 History of malignant neoplasm of prostate 749781440 Z85.46 He received a 6-month Eligard injection [...] Carroll Member ID Guarantor Name 02/25/2025 1 [employer] (MEDICARE) Martin Lezama [id number] Martin Lezama 02/25/2025 2 FOR LIFE () Martin Lezama [id number] Martin Lezama Notes Date Note Type Note [...] prior to his biopsy. CJ LAMB MD [address] [place] [address], [address], [facility] 07/25/2024 14:39:29 08/09/2024 text/html Patient is here [...] has been to the emergency room at [facility] 3-4 different times for catheter irrigation. Currently is urine is grape juice colored and appears to be old blood. Unfortunately his biopsy has showed several cores positive for high-grade prostate cancer. He had Erica score of 9(5+4) in the area of interest as well as several cores positive on the right side of the prostate. He had [place] score of 8 on the left side. [...] in the bladder on CT scan at [facility] over the weekend. He is here [...] 1.2 earlier today CJ LAMB MD [address] [place] [address] [place], [address], [facility] 08/09/2024 21:13:11 09/03/2024 text/html Patient is here to start LHRH antagonist therapy in anticipation of external beam radiation therapy for prostate cancer. We discussed potential side effects and expectations. He received a 6-month. Lupron injection. CJ LAMB MD [address] [place] [address] [place], [address], [facility] 09/05/2024 22:40:50 02/28/2025 text/html Patient is here [...] months. He now seeing Dr. Pappas in [place] as his primary care. CJ LAMB MD [address] [facility] [place], [address], [facility] 02/28/2025 17:48:31
--- OUTSIDE RECORDS SUMMARY | 2025-03-16 14:59 | XMS_ITS | Clinical Summary ---
Author Organization [employer] ([place], [place], [place], [place]) Address [address] [place] [address] Care Team Providers Care Dairy Powder Mixer Operator Name Role Phone Tristan Billings DO Primary Care Provider [phone] [phone] Allergies No known active allergies Medications glipiZIDE [...] any time in the past 12 m [facility], were you homeless or living in a fpc (including now)? No 08/14/2024 Utilities Answer Date [...] living situation today? I have a [facility] place to live 08/10/2024 Think about [...] Do you speak a language other than Kiswahili at [facility]? No 08/10/2024 Do you want help [...] Advance Directives For more information, please contact: [phone] Documents on File Type Date Recorded Patient Net Mender Expl anation Advance Directives and Living Will 08/10/2024 * Full Code (Latest Code Status on File) Date Activated Date Inactivated Comments 08/10/2024 2:42 PM 08/15/2024 4:37 PM Care Teams Dairy Powder Mixer Operator Relationship Specialty Start Date End Date Tristan Billings DO PCP - General Internal Medicine 08/10/24
--- OUTSIDE RECORDS SUMMARY | 2025-03-16 14:59 | XMS_ITS | Continuity of Care Document ---
Author Organization [facility] Clin[facility]udmila santiago [facility] Address [address] [place] [address] Assessment No assessment recorded. Plan of Treatment Reminders Order Date Submit Date Provider Last Modified By Organization Details Last Modified Time Details Appointments RECHECK 2024 01:30P M ZORAIDA GARDNER MD Not available Not available Not available RECHECK 2024 01:30P M FADY LAMB MD Not available Not available Not available Lab urinalysi s panel, auto 2024 025 [email or web address] [facility], [address], [place], [address], 02/28/2025 14:44:08 PSA, serum or plasma 2024 025 [email or web address] [facility], [address], [address], [place], [address], 02/28/2025 14:44:08 Referral None recorded. Procedures None recorded. Surgeries None recorded. Imaging None recorded. Medication Orders None recorded. Patient TargetsNo targets recorded. Patient InstructionsNo instructions recorded. Reason for Referral None Reported. Results Created Date Observation Date Name Description Value Unit Range Abnormal Flag Note LastModifiedBy Organization Detail LastModifiedTime 02/29/2002/28/2025 urina lysis panel , auto Unknown Analyte Clean Catch Not Available [facility] [address], [place], [address], 02/28/2025 14:04:51 02/29/20 25 02/28/2025 urina lysis panel , auto Unknown Analyte Yellow Not Available [facility] [address], [place], [address], 02/28/2025 14:04:51 02/29/20 25 02/28/2025 urina lysis panel , auto Unknown Analyte Clear Not Available [facility] [address], [place], [address], 02/28/2025 14:04:51 02/29/20 25 02/28/2025 urina lysis panel , auto Unknown Analyte 1.020 Not Available [facility] [address], [place], [address], 02/28/2025 14:04:51 02/29/20 25 02/28/2025 urina lysis panel , auto Unknown Analyte 1.003 - 1.030 Not Available [facility] [address], [place], [address], 02/28/2025 14:04:51 02/29/20 25 02/28/2025 urina lysis panel , auto Unknown Analyte 5.0 Not Available [facility] [address], [place], [address], 02/28/2025 14:04:51 02/29/20 25 02/28/2025 urina lysis panel , auto Unknown Analyte 5.0 - 8.0 Not Available [facility] [address], [place], [address], 02/28/2025 14:04:51 02/29/20 25 02/28/2025 urina lysis panel , auto Unknown Analyte 75 Iveth/uL Not Available [facility] [address], [place], [address], 02/28/2025 14:04:51 02/29/20 25 02/28/2025 urina lysis panel , auto Unknown Analyte Negati ve Not Available [facility] [address], [place], [address], 02/28/2025 14:04:51 02/29/20 25 02/28/2025 urina lysis panel , auto Unknown Analyte Negati ve Not Available [facility] [address], [place], [address], 02/28/2025 14:04:51 02/29/20 25 02/28/2025 urina lysis panel , auto Unknown Analyte Negati ve Not Available [facility] [address], [place], [address], 02/28/2025 14:04:51 02/29/20 25 02/28/2025 urina lysis panel , auto Unknown Analyte Trace Not Available [facility] [address], [place], [address], 02/28/2025 14:04:51 02/29/20 25 02/28/2025 urina lysis panel , auto Unknown Analyte Negati ve Not Available [facility] [address], [place], [address], 02/28/2025 14:04:51 02/29/20 25 02/28/2025 urina lysis panel , auto Unknown Analyte >1000 mg/dL Not Available [facility] [address], [place], [address], 02/28/2025 14:04:51 02/29/20 25 02/28/2025 urina lysis panel , auto Unknown Analyte Normal Not Available [facility] [address], [place], [address], 02/28/2025 14:04:51 02/29/20 25 02/28/2025 urina lysis panel , auto Unknown Analyte Negati ve Not Available [facility] [address], [place], [address], 02/28/2025 14:04:51 02/29/20 25 02/28/2025 urina lysis panel , auto Unknown Analyte Negati ve Not Available [facility] [address], [place], [address], 02/28/2025 14:04:51 02/29/20 25 02/28/2025 urina lysis panel , auto Unknown Analyte Normal Not Available [facility] [address], [place], [address], 02/28/2025 14:04:51 02/29/20 25 02/28/2025 urina lysis panel , auto Unknown Analyte Normal Not Available [facility] [address], [place], [address], 02/28/2025 14:04:51 02/29/20 25 02/28/2025 urina lysis panel , auto Unknown Analyte 1 mg/dL Not Available [facility] [address], [place], [address], 02/28/2025 14:04:51 02/29/20 25 02/28/2025 urina lysis panel , auto Unknown Analyte Negati ve Not Available [facility] [address], [place], [address], 02/28/2025 14:04:51 02/29/20 25 02/28/2025 urina lysis panel , auto Unknown Analyte 50 Arslan/uL Not Available [facility] [address], [place], [address], 02/28/2025 14:04:51 02/29/20 25 02/28/2025 urina lysis panel , auto Unknown Analyte Negati ve Not Available [facility] [address], [place], [address], 02/28/2025 14:04:51 Result Notes None recorded. Problems No Known Problems Procedures Surgical History Date Name Laterality Status Provider Name and Address Organization Details Recorded Time 02/29/20 25 Lupron Administration completed Harleen Porfirio [facility] 02/28/2025 14:50:38 09/03/20 24 Lupron Administration completed Sadia Ndiaye [facility] 09/03/2024 13:10:22 Vasectomy completed Sadia Ndiaye [facility] 05/19/2024 15:50:09 procedure on knee completed Sadia Ndiaye [facility] 05/19/2024 15:52:15 mechanical prosthetic aortic valve replacement completed Tammy Curtis [facility] 05/21/2024 09:02:43 Imaging Results None recorded. [...] Updated DateTime 02/28/2025 187.96 cm 23.8 kg/m2 85374.59 g Harleen Monroy [facility] 02/28/2025 14:14:02 Social History Question Answer Notes LastModified by Organizat ion Details LastModified Time Tobacco Smoking Status [facility] 15:49:08 When Did You Quit Smoking? 18+yearssin taco perez 1997 [email or web address] Information not available 05/19/2024 What Was The Date Of Your Most Recent Tobacco Screening? 02/28/2025 [email or web address] Information not available 02/28/2025 What Is Your Relationship Status? [email or web address] Information not available 05/19/2024 How Much Tobacco Do You Smoke? No Information not available 05/19/2024 Has Tobacco Cessation Counseling Been Provided? No [email or web address] Information not available 05/19/2024 Sex: Male Functional Status Question Answer Note LastModified by Organizat ion Details LastModified Time Do you use any illicit or recreational drugs? No [email or web address] Information not available 05/19/2024 Do you or have you ever used any other forms of tobacco or nicotine? No Information not available 05/19/2024 What is your level of alcohol consumption? None Information not available 05/19/2024 Are you currently employed? No retired [email or web address] Information not available 05/19/2024 Mental Status None recorded. Family History Nothing Reported. Medical History Condition Response Sleep Apnea Y Past Encounters Encounter ID Performer Location Encounter Start Date Encounter Closed Date Diagnosis/Indication Diagnosis SNOMED-CT Code Diagnosis ICD10 Code Diagnosis Note [id number] FADY LAMB MD [facility] [address] [place] [address] 02/28/2025 13:16:41 02/28/2025 14:52:53 History of malignant neoplasm of prostate 059822427 Z85.46 He received a 6-month Eligard injection [...] Name 02/28/2025 1 [place] Martin Lezama [id number] Martin Lezama 02/28/2025 2 FOR LIFE () Martin Lezama [id number] Martin Lezama Notes Date Note Type Note [...] months. He now seeing Dr. Pappas in [place] as his primary care. FADY LAMB MD [facility] [place], [address], [facility] 02/28/2025 17:48:31
--- OUTSIDE RECORDS SUMMARY | 2025-03-16 14:59 | XMS_ITS | Referral Summary ---
Author Organization [employer] ([place], [place], [place], [place]) Address [address] [place] [address] Care Team Providers Care Fire Code Inspector Name Role Phone Tristan Billings DO Primary Care Provider [phone] [phone] Allergies No known active allergies Medications glipiZIDE [...] any time in the past 12 m [facility], were you homeless or living in a halfway (including now)? No 08/14/2024 Utilities Answer Date [...] Do you speak a language other than [place] at [facility]? No 08/10/2024 Do you want help [...] Advance Directives For more information, please contact: [phone] Documents on File Type Date Recorded Patient Supervisor Braiding Expl anation Advance Directives and Living Will 08/10/2024 * Full Code (Latest Code Status on File) Date Activated Date Inactivated Comments 08/10/2024 2:42 PM 08/15/2024 4:37 PM Care Teams Fire Code Inspector Relationship Specialty Start Date End Date Tristan Billings DO PCP - General Internal Medicine 08/10/24
--- OUTSIDE RECORDS SUMMARY | 2025-03-16 15:00 | XMS_ITS | Data Portability ---
Author Organization [place] - [facility] [employer] [facility] Address [address] [place] [address] Care Team Providers Care Commissioning Editor Name Role Phone FRED MURILLO Primary Care [...] Address Organization Details Recorded Time Diabetes mellitus 28071776 Active 2022 Faraz Jefferson null, [place] - [facility] 3 13:55:39 Essential hypertension 92463777 Active 2022 Faraz Jefferson null, [place] - [facility] 3 13:55:49 Anticoagulan t therapy Active 2022 MANDY Hart null, [place] - [facility] 3 13:26:20 Osteoarthrit is 986549550 Active 2022 MANDY Hart null, [place] - [facility] 3 13:26:33 Erectile dysfunction 163145444 Active 2022 MANDY Hart null, [place] - [facility] 3 13:26:40 Benign prostatic hyperplasia 392344198 Active 2022 MANDY Hart null, [place] - [facility] 3 13:26:49 Hyperlipidem ia 34415996 Active 2022 MANDY Hart null, [facility] 3 13:26:55 Problem Notes None recorded. Medical [...] Quit in 24 years ago Chani Drake [facility], [place] - [facility] 11/16/2021 15:33:17 Are You Blind Or [...] anxious, or unable to sleep at night)? [id number] Information not available 11/16/2021 Do you have [...] [facility] [address],[place] [address] [place], [place] [address] 11/16/2021 15:19:12 12/25/2021 23:31:53 Essential hypertension 34929263 I10 Uncontroll ed type 2 diabetes mellitus 792048406 E11.65 4710 Srikanth Edwards MD [facility] [address],[place] [address] [place] [address] 11/26/2021 14:38:42 01/08/2022 12:37:48 Diabetes mellitus 39539514 E11.9 Essential hypertension 73366257 I10 5926 Srikanth Edwards MD [facility] [address],[place] [address] [place] [address] 12/07/2021 15:42:51 01/03/2022 21:27:02 Diabetes mellitus 90197820 E11.9 Essential hypertension 35887684 I10 6729 MD ANIBAL TeixeiraCHNICOLA D [address] [place] [address] 12/14/2021 16:04:16 01/29/2022 03:54:52 Diabetes mellitus 00937178 E11.9 Essential hypertension 36719878 I10 7470 MD ANIBAL TeixeiraCHNICOLA D [address] [place] [address] 6 12/21/2021 16:01:40 01/29/2022 03:54:53 Diabetes mellitus 73923580 E11.9 Essential hypertension 79150409 I10 9186 Peter Louisa , [place] [facility] [place] [address] [place] [address] 01/04/2022 16:02:31 01/29/2022 03:54:56 Diabetes mellitus 90265991 E11.9 Essential hypertension 30853195 I10 75294 Srikanth Edwards MD [place] [address] [place] [address] 01/11/2022 16:17:47 01/28/2022 16:14:32 Diabetes mellitus 25041710 E11.9 Essential hypertension 31463987 I10 78232 MD ANIBAL Teixeira [facility] [address] [place] [address] 01/18/2022 16:12:09 02/14/2022 15:53:17 Diabetes mellitus 06974274 E11.9 Essential hypertension 05275841 I10 63208 Srikanth Edwards MD [place] [facility] [address] [place] [address] 01/25/2022 16:12:01 01/25/2022 22:10:14 Diabetes mellitus 32420948 E11.9 Essential hypertension 60968753 I10 45340 Srikanth Edwards MD [place] [address] [place] [address] 02/01/2022 16:08:44 02/04/2022 10:47:52 Diabetes mellitus 90102943 E11.9 Essential hypertension 62549428 I10 93457 Srikanth Edwards MD [place] [address] [place] [address] 02/08/2022 16:21:37 03/24/2022 13:15:23 Diabetes mellitus 47885397 E11.9 Essential hypertension 94606475 I10 10724 Srikanth Edwards MD [place] [facility] [address] [place] [address] 02/15/2022 16:03:42 02/19/2022 14:34:17 Diabetes mellitus 06364000 E11.9 Essential hypertension 06224991 I10 54323 Srikanth Edwards MD [place] [address] [place] [address] 02/22/2022 16:04:55 03/17/2022 23:46:42 Diabetes mellitus 92214210 E11.9 Essential hypertension 70438156 I10 17773 Srikanth Edwards MD [place] [address] [place] [address] 03/01/2022 16:07:59 03/17/2022 21:45:58 Diabetes mellitus 73443324 E11.9 Essential hypertension 17801173 I10 48000 Srikanth Edwards MD [place] [address] [place] [address] 03/08/2022 16:05:33 04/05/2022 03:53:43 Diabetes mellitus 98120188 E11.9 Essential hypertension 89624003 I10 60516 Srikanth Edwards MD [place] [address] [place] [address] 03/15/2022 16:11:27 04/26/2022 03:53:33 Diabetes mellitus 31598970 E11.9 Essential hypertension 97026911 I10 30125 MD ANIBAL Teixeira [facility] [address] [place] [address] 04/05/2022 16:21:27 04/24/2022 14:56:34 Diabetes mellitus 53480276 E11.9 Essential hypertension 31099380 I10 35869 Srikanth Edwards MD [place] [address] [place] [address] 04/19/2022 16:15:15 05/30/2022 03:54:38 Diabetes mellitus 61886902 E11.9 Essential hypertension 66488575 I10 42601 Srikanth Edwards MD [place] [address] [place] [address] 05/03/2022 16:55:42 05/29/2022 15:30:59 Diabetes mellitus 23914030 E11.9 Essential hypertension 91450807 I10 10390 Rajendra Hart, PICKING TABLE WORKER-MATERIAL CONTROL CLERK [place] [facility] [place] [address] [place] [address] 05/17/2022 16:05:31 06/27/2022 03:53:23 Diabetes mellitus 95307637 E11.9 Essential hypertension 49152366 I10 02032 Rajendra Hart PICKING TABLE WORKER-MATERIAL CONTROL CLERK [facility] [address] [place] [address] 05/31/2022 16:14:33 06/27/2022 03:53:27 Diabetes mellitus 43213904 E11.9 Essential hypertension 01405339 I10 58425 Rajendra Hart PICKING TABLE WORKER-MATERIAL CONTROL CLERK [facility] [address] [place] [address] 06/14/2022 16:18:22 06/26/2022 10:53:41 Diabetes mellitus 75261367 E11.9 Essential hypertension 18587771 I10 50235 Rajendra Hart PICKING TABLE WORKER-MATERIAL CONTROL CLERK [facility] [address] [place] [address] 06/28/2022 16:33:56 08/01/2022 03:52:38 Diabetes mellitus 26427098 E11.9 Essential hypertension 51190516 I10 81897 Rajendra Hart PICKING TABLE WORKER-MATERIAL CONTROL CLERK [facility] [address] [place] [address] 07/12/2022 16:20:00 07/31/2022 14:32:30 Diabetes mellitus 76037409 E11.9 Essential hypertension 54128986 I10 50358 Rajendra Hart PICKING TABLE WORKER-MATERIAL CONTROL CLERK [facility] [address] [place] [address] 07/26/2022 16:20:55 11/19/2022 10:48:00 Diabetes mellitus 68021283 E11.9 Essential hypertension 79466202 I10 45656 Rajendra Hart PICKING TABLE WORKER-MATERIAL CONTROL CLERK [facility] [address] [place] [address] 08/16/2022 16:30:19 08/19/2022 12:09:55 Diabetes mellitus 50396730 E11.9 Essential hypertension 91412146 I10 65846 Rajendra Hart PICKING TABLE WORKER-MATERIAL CONTROL CLERK [facility] [address] [place] [address] 08/30/2022 16:12:03 11/29/2022 13:02:35 Diabetes mellitus 71150002 E11.9 Essential hypertension 26375324 I10 87899 Rajendra Hart APRN-MATERIAL CONTROL CLERK [facility] [address] [place] [address] 09/13/2022 16:53:17 12/30/2022 00:26:22 Diabetes mellitus 61750395 E11.9 Essential hypertension 29467831 I10 19219 Rajendra Hart PICKING TABLE WORKER-MATERIAL CONTROL CLERK [facility] [address] [place] [address] 09/27/2022 16:19:22 12/30/2022 18:51:10 Diabetes mellitus 88026611 E11.9 Essential hypertension 10702805 I10 68782 Rajendra Hart APRN-MATERIAL CONTROL CLERK [facility] [address] [place] [address] 10/11/2022 16:17:43 01/18/2023 14:30:53 Diabetes mellitus 49719907 E11.9 Essential hypertension 03817432 I10 64651 SUSAN Welsh [facility]Nursin g Schedule [address] [place] [address] 10/25/2022 16:34:28 01/29/2023 11:50:46 Diabetes mellitus 54384373 E11.9 Patient's glucose readings are trending higher in the mornings, but normal after meals. Fasting glucose this morning was 149. Pt states this is due to veering away from diabetic diet due to 's medical issues but will try to do better. Encouraged pt to continue checking blood glucose daily and choose diabetic friendly foods. Essential hypertension 08065326 I10 Patient's blood pressure readings are trending [...] as prescribed , and exercise as tolerated. 87089 SUSAN Welsh NS[facility]Nursin g Schedule [address] [place] [address] 11/08/2022 17:39:15 02/15/2023 21:45:57 Diabetes mellitus 32419505 E11.9 Essential hypertension 72125163 I10 61097 Rajendra Hart APRN-MATERIAL CONTROL CLERK [facility] Schedule [address] [place] [address] 6 11/22/2022 16:15:15 11/22/2022 16:41:00 Diabetes mellitus 46616445 E11.9 Essential hypertension 73167454 I10 12162 Rajendra Hart APRN-MATERIAL CONTROL CLERK [facility] Schedule [address] [place] [address] 6 12/13/2022 16:16:33 12/13/2022 16:24:25 Diabetes mellitus 60591743 E11.9 Essential hypertension 28655817 I10 [id number] Rajendra Hart APRN-MATERIAL CONTROL CLERK [facility] Schedule [address] [place] [address] 6 01/17/2023 16:46:22 01/17/2023 16:52:09 Diabetes mellitus 70931080 E11.9 Essential hypertension 22473170 I10 [id number] Rajendra Hart APRN-MATERIAL CONTROL CLERK [facility] Schedule [address] [place] [address] 6 01/30/2023 15:12:10 01/30/2023 16:46:05 Diabetes mellitus 80677288 E11.9 Essential hypertension 15065861 I10 265224 Rajendra Hart APRN-MATERIAL CONTROL CLERK [facility] Schedule [address] [place] [address] 6 02/07/2023 16:02:31 02/07/2023 16:07:35 Diabetes mellitus 79185581 E11.9 Essential hypertension 94742950 I10 199011 Rajendra Hart PICKING TABLE WORKER-MATERIAL CONTROL CLERK [facility] Schedule [address] [place] [address] 6 02/21/2023 16:28:58 02/21/2023 16:34:55 Diabetes mellitus 46868071 E11.9 Essential hypertension 25775692 I10 650052 TODD CHOWDHURY NP NS_Nursin g Schedule [address] [place] [address] 6 03/07/2023 15:48:39 03/07/2023 15:53:49 Diabetes mellitus 44170430 E11.9 Essential hypertension 57627773 I10 715907 TODD CHOWDHURY NP NS[facility]Nursin g Schedule [address] [place] [address] 03/21/2023 15:40:28 03/21/2023 15:50:36 Diabetes mellitus 65031917 E11.9 Essential hypertension 29861092 I10 070833 TODD CHOWDHURY K [employer] NS[facility]Nursin g Schedule [address] [place] [address] 04/04/2023 15:45:51 04/04/2023 15:54:30 Diabetes mellitus 54898685 E11.9 Essential hypertension 96326828 I10 621966 TODD CHOWDHURY NP NS_Nursin g Schedule [address] [place] [address] 04/18/2023 15:33:35 04/18/2023 15:43:13 Diabetes mellitus 56734337 E11.9 Essential hypertension 52301281 I10 910346 TODD CHOWDHURY NP NS_Nursin g Schedule [address] [place] [address] 05/02/2023 15:42:42 05/02/2023 15:47:40 Diabetes mellitus 07221238 E11.9 Essential hypertension 39849182 I10 424740 TODD CHOWDHURY NP NS[facility]Nursin g Schedule [address] [place] [address] 05/23/2023 15:43:29 05/23/2023 15:50:23 Diabetes mellitus 45325685 E11.9 Essential hypertension 54101537 I10 175091 TODD CHOWDHURY NP NS_Nursin g Schedule [address] [place] [address] 06/06/2023 15:28:59 06/06/2023 15:39:02 Diabetes mellitus 30486162 E11.9 Essential hypertension 65236712 I10 492906 TODD CHOWDHURY NP NS_Nursin g Schedule [address] [place] [address] 07/18/2023 17:43:20 07/21/2023 09:45:32 Diabetes mellitus 66699528 E11.9 Essential hypertension 15293976 I10 308867 TODD CHOWDHURY NP NS[facility]Nursin g Schedule [address] [place] [address] 08/01/2023 17:36:40 08/04/2023 10:06:54 Diabetes mellitus 44138996 E11.9 Essential hypertension 13429524 I10 242951 TODD CHOWDHURY NP NS_Nursin g Schedule [address] [place] [address] 08/22/2023 16:42:04 08/27/2023 10:54:09 Diabetes mellitus 76266423 E11.9 Essential hypertension 36971529 I10 533013 Annalise Taylor NP NS_Nursin g Schedule [address] [place] [address] 09/05/2023 17:28:17 09/05/2023 17:49:18 Diabetes mellitus 24157876 E11.9 Essential hypertension 62748443 I10 073072 Annalise Taylor NP NS_Nursin g Schedule [address] [place] [address] 10/31/2023 15:53:43 11/03/2023 15:44:35 Diabetes mellitus 11121327 E11.9 Essential hypertension 06130693 I10 626827 Annalise Taylor NP NS_Nursin g Schedule [address] [place] [address] 11/28/2023 17:25:32 11/28/2023 17:37:46 Essential hypertension 01176504 I10 Diabetes mellitus 366283 09 E11.9 983524 Annalise Taylor NP NS[facility]Nursin g Schedule [address] [place] [address] 12/03/2023 17:39:49 12/03/2023 17:50:36 Essential hypertension 11820947 I10 Diabetes mellitus 406554 09 E11.9 248180 Annalise Taylor NP NS_Nursin g Schedule [address] [place] [address] 12/17/2023 16:31:39 12/17/2023 16:39:03 Essential hypertension 64361543 I10 Diabetes mellitus 191619 09 E11.9 684224 Annalise Taylor NP NS[facility]Nursin g Schedule [address] [place] [address] 12/31/2023 16:49:01 12/31/2023 16:56:48 Essential hypertension 03564683 I10 Diabetes mellitus 089029 E11.9 105189 Annalise Taylor NP NS_Nursin g Schedule [address] [place] [address] 01/14/2024 17:14:28 01/14/2024 17:25:19 Essential hypertension 55132733 I10 Diabetes mellitus 768442 E11.9 271579 Annalise Taylor NP NS_Nursin g Schedule [address] [place] [address] 01/28/2024 17:09:51 01/28/2024 17:19:17 Essential hypertension 95881662 I10 Diabetes mellitus 339307 E11.9 646882 Annalise Taylor NP NS[facility]Nursin g Schedule [address] [place] [address] 02/25/2024 16:39:38 02/25/2024 16:49:57 Essential hypertension 11321359 I10 Diabetes mellitus 873827 E11.9 195016 Annalise Taylor NP PS_Provid er Schedule [address] [place] [address] 02/26/2024 16:38:32 02/26/2024 16:48:12 Diabetes mellitus 90393565 E11.9 -Continue the following medication s as [...] no fluid restrictio n? YES. Essential hypertension 21665309 I10 -Continue the following medication s as [...] restrictio n? YES.Watchi ng salt intake? YES. 375155 KELLY Carreon_Nursin g Schedule [address] [place] [address] 03/10/2024 17:35:11 03/11/2024 09:38:18 Essential hypertension 29970281 I10 Diabetes mellitus 334839 E11.9 699804 KELLY Carreon_Nursin g Schedule [address] [place] [address] 03/24/2024 16:31:57 03/24/2024 16:49:23 Essential hypertension 00618022 I10 Diabetes mellitus 993714 E11.9 736750 KELLY Carreon_Nursin g Schedule [address] [place] [address] 04/07/2024 16:38:20 04/07/2024 16:53:36 Essential hypertension 61069002 I10 Diabetes mellitus 402774 E11.9 233215 KELLY Carreon_Nursin g Schedule [address] [place] [address] 04/23/2024 15:44:06 04/23/2024 15:55:49 Essential hypertension 66689572 I10 Diabetes mellitus 363447 E11.9 760698 KELLY Carreon_Nursin g Schedule [address] [place] [address] 05/19/2024 16:41:13 05/19/2024 16:57:22 Essential hypertension 77398651 I10 Diabetes mellitus 660886 E11.9 720594 KELLY Carreon_Nursin g Schedule [address] [place] [address] 06/02/2024 16:39:18 06/02/2024 16:58:29 Essential hypertension 81075660 I10 Diabetes mellitus 302352 09 E11.9 643673 Annalise Taylor, K [employer] NS_Nursin g Schedule [address] [place] [address] 06/16/2024 15:57:59 06/16/2024 16:15:11 Essential hypertension 99655373 I10 Diabetes mellitus 183559 E11.9 303442 Annalise Taylor, K [employer] NS_Nursin g Schedule [address] [place] [address] 06/30/2024 16:33:01 06/30/2024 16:45:21 Essential hypertension 42993749 I10 Diabetes mellitus 787097 E11.9 490134 Annalise Taylor NP NS_Nursin g Schedule [address] [place] [address] 07/14/2024 16:18:27 07/14/2024 16:38:25 Diabetes mellitus 38970090 E11.9 Essential hypertension 57742138 I10 009989 Annalise Taylor NP NS_Nursin g Schedule [address] [place] [address] 07/21/2024 17:39:48 07/21/2024 18:00:12 Essential hypertension 63737256 I10 Diabetes mellitus 236940 E11.9 250422 Annalise Taylor NP NS_Nursin g Schedule [address] [place] [address] 07/28/2024 17:47:57 07/28/2024 18:03:49 Diabetes mellitus 38047304 E11.9 Diabetes mellitus Essential hypertension 71529174 I10 Essential hypertensi on 450141 Annalise Taylor NP NS_Nursin g Schedule [address] [place] [address] 08/11/2024 17:24:32 08/11/2024 17:28:35 Diabetes mellitus 22685739 E11.9 Diabetes mellitus Essential hypertension 68600876 I10 Essential hypertensi on 126043 Annalise Taylor NP NS_Nursin g Schedule [address] [place] [address] 08/18/2024 17:45:40 08/18/2024 18:00:35 Diabetes mellitus 25090526 E11.9 Diabetes mellitus Essential hypertension 22236322 I10 Essential hypertensi on 776751 Annalise Taylor, K [employer] NS_Nursin g Schedule [address] [place] [address] 08/25/2024 17:32:06 08/25/2024 17:45:47 Diabetes mellitus 90467527 E11.9 Diabetes mellitus Essential hypertension 71074423 I10 Essential hypertensi on 332820 Annalise Taylor, K [employer] NS_Nursin g Schedule [address] [place] [address] 09/01/2024 17:04:25 09/01/2024 17:12:44 Diabetes mellitus 69034962 E11.9 Diabetes mellitus Essential hypertension 07581875 I10 Essential hypertensi on 726896 Annalise Taylor, KELLY NS_Nursin g Schedule [address] [place] [address] 09/09/2024 12:13:36 09/09/2024 12:16:47 Diabetes mellitus 50172463 E11.9 Diabetes mellitus Essential hypertension 72864128 I10 Essential hypertensi on 894252 Annalise Taylor, KELLY NS_Nursin g Schedule [address] [place] [address] 09/22/2024 18:18:09 09/23/2024 00:42:25 Diabetes mellitus 56290983 E11.9 Diabetes mellitus Essential hypertension 80578962 I10 Essential hypertensi on 597106 Annalise Taylor, KELLY NS_Nursin g Schedule [address] [place] [address] 09/29/2024 17:43:59 09/29/2024 17:52:53 Diabetes mellitus 49162016 E11.9 Diabetes mellitus Essential hypertension 35454379 I10 Essential hypertensi on 146153 Annalise Taylor, K [employer] PS_Provid er Schedule [address] [place] [address] 10/05/2024 16:19:13 10/05/2024 16:30:38 Diabetes mellitus 99727483 E11.9 Diabetes mellitus Essential hypertension 35773424 I10 Hypertensi on Ongoing Care Plan - [...] while enrolled- As needed as concerns arise 626920 KELLY Carreon_Connorin g Schedule [address] [place] [address] 6 10/06/2024 16:48:08 10/06/2024 16:49:21 Diabetes mellitus 63991463 E11.9 Diabetes mellitus Essential hypertension 28558890 I10 Essential hypertensi on 829836 KELLY Carreon_Connorin g Schedule [address] [place] [address] 6 10/06/2024 17:45:23 10/06/2024 18:02:20 Diabetes mellitus 83296718 E11.9 Diabetes mellitus Essential hypertension 03105364 I10 Essential hypertensi on 334832 KELLY Carreon g Schedule [address] [place] [address] 10/13/2024 16:35:33 10/13/2024 17:08:55 Diabetes mellitus 90020519 E11.9 Diabetes mellitus Essential hypertension 24022144 I10 Essential hypertensi on 582357 KELLY Carreonin g Schedule [address] [place] [address] 10/20/2024 16:40:00 10/20/2024 17:00:03 Diabetes mellitus 83470979 E11.9 Diabetes mellitus Essential hypertension 96864362 I10 Essential hypertensi on 886766 Annalise Taylor, K [employer] NS_Nursin g Schedule [address] [place] [address] 10/27/2024 17:15:42 10/27/2024 17:26:09 Diabetes mellitus 96905834 E11.9 Diabetes mellitus Essential hypertension 65000633 I10 Essential hypertensi on 440633 Annalise Taylor, K [employer] NS_Nursin g Schedule [address] [place] [address] 11/03/2024 16:31:49 11/03/2024 16:47:04 Diabetes mellitus 78903238 E11.9 Diabetes mellitus Essential hypertension 30725881 I10 Essential hypertensi on 290385 Annalise Taylor, K [employer] NS_Nursin g Schedule [address] [place] [address] 11/10/2024 16:22:43 11/10/2024 16:31:06 Diabetes mellitus 98744425 E11.9 Diabetes mellitus Essential hypertension 11596224 I10 Essential hypertensi on 397155 Annalise Taylor, K [employer] NS_Nursin g Schedule [address] [place] [address] 11/11/2024 10:18:10 11/11/2024 10:24:38 Diabetes mellitus 96393168 E11.9 Diabetes mellitus Essential hypertension 43152610 I10 Essential hypertensi on 747648 Annalise Taylor, K [employer] NS_Nursin g Schedule [address] [place] [address] 11/17/2024 16:20:28 11/17/2024 16:41:39 Diabetes mellitus 95543604 E11.9 Diabetes mellitus Essential hypertension 57398408 I10 Essential hypertensi on 512947 Annalise Taylor, K [employer] NS_Nursin g Schedule [address] [place] [address] 11/24/2024 16:44:33 11/24/2024 16:55:25 Diabetes mellitus 16534744 E11.9 Diabetes mellitus Essential hypertension 09641916 I10 Essential hypertensi on 375654 Annalise Taylor, K [employer] NS_Nursin g Schedule [address] [place] [address] 11/25/2024 08:40:30 11/25/2024 08:42:30 Diabetes mellitus 89941006 E11.9 Diabetes mellitus Essential hypertension 28552843 I10 Essential hypertensi on 072076 Annalise Taylor NP NS_Nursin g Schedule [address] [place] [address] 12/01/2024 16:47:39 12/01/2024 16:58:01 Diabetes mellitus 91774571 E11.9 Diabetes mellitus Essential hypertension 22962131 I10 Essential hypertensi on 906226 Annalise Taylor NP NS_Nursin g Schedule [address] [place] [address] 12/08/2024 16:18:09 12/08/2024 16:35:01 Diabetes mellitus 30045013 E11.9 Diabetes mellitus Essential hypertension 74131496 I10 Essential hypertensi on Goals Section Goal [...] restricting artificial sweetener use NoChange active 2023 Marcio Information not available 01/28/2024 21:18:56 Health Concerns Section Related Observation LastModified by Organization Detai ls LastModified Time None Recorded Concern Status LastModified by Organization Details LastModified Time None Recorded Advance Directives Directive None Recorded Payers Insurance Date Sequence Insurance Name Policy Number Policy Carroll Covered Member ID Carroll Member ID Guarantor Name 11/17/2024 [place] Martin Lezama [id number] Martin Lezama 11/17/2024 1 [place] Martin Lezama [id number] Martin Lezama 11/17/2024 [place] Martin Lezama [id number] Martin Lezama 01/19/2025 2 FOR LIFE ( - MEDICARE SUPPLEMENT) Martin Lezama [id number] Martin Lezama
--- OUTSIDE RECORDS SUMMARY | 2025-03-16 15:00 | XMS_ITS | Clinical Summary ---
Author Organization [facility] Address [address] [place] [address] Care Team Providers Care Mechanical And Auto Body Car Checker Name Role Phone [email or web address] Primary Care Provider [phone] Allergies Active Allergy Reactions Criticality Noted Date [...] Description 12/27/2024 1:15 PM EDT Office Visit [facility] [address] [place] [address] Justen Jaimes MD Malignant neoplasm of prostate (CMS/HCC) (Primary Dx) 12/27/2024 Travel 12/26/2024 Travel 12/23/2024 Orders Only [facility] [place] [address] [place] [address] Justen Jaimes MD 12/22/2024 Orders Only [facility] [address] [place] [address] Justen Jaimes MD from Last 3 Months [...] Description 06/27/2025 12:30 PM EDT Office Visit [facility] [address] [place] [phone] 06/27/2025 1:30 PM EDT Office Visit [facility] [address] [place] [address] Justen Jaimes MD [address] [phone] Health Maintenance Due Date Last Done Comments [facility]-Hepatitis C Screening 1945 [facility]-Medicare Annual Wellness (AWV) 1945 [facility]-Infant/Child/Adol SDOH Screenings 1945 [facility]-Obesity Intervention 1953 [facility]- SDOH Screenings 1965 [facility]-Adult SDOH Screenings 1965 [facility]-Pneumococcal Vaccine: 50 + Years (1 of 2 - PCV) 1966 [facility]-Zoster Vaccines (1 of 2) 1966 [facility]-DTaP,Tdap,and Td Vaccine s (1 - Tdap) 07/25/2010 07/24/2010 [id number] Vaccine (3 - Moderna risk series) 12/20/2020 11/22/2020, 10/25/2020 [facility]-RSV Vaccine: 60+ Years o r (1 - 1-dose 75+ series) 2022 [facility]-Influenza Vaccine (#1) 05/16/202506/26, 06/08/2020, 06/14/2016 [facility]-Depression Screening 12/27/2025 025, 12/27/2024 [...] CBC W/DIFF Routine 12/22/2024 3:55 PM EDT ND PROSTATE SPECIFIC ANTIGEN,TOTAL Routine 12/22/2024 9:37 AM EDT COMPLETE METABOLIC PROFILE (CMP) Routine 12/22/2024 9:37 AM EDT from Last 3 Months Results * CBC W/DIFF (12/22/2024 3:55 PM EDT) Justen Jaimes MD LAB BLOOD ORDERABLES [facility] Result * COMPLETE METABOLIC PROFILE (CMP) (12/22/2024 9:37 AM EDT) us Justen Jaimes MD LAB BLOOD ORDERABLES [facility] Result * ND PROSTATE SPECIFIC ANTIGEN,TOTAL (12/22/2024 9:37 AM EDT) Justen Jaimes MD [facility] Final Res ult from Last 3 Months Insurance MEDICARE [facility] Care Teams Mechanical And Auto Body Car Checker Relationship Specialty Start Date End Date Tristan Billings DO [address] [place] [address] [place] [address] PCP - General 09/13/24
[2025-03-16 15:19] VITALS: BP 106/56; PULSE 65; RESP 16; O2SAT 94; BMI 24.3
--- NOTE | 2025-03-16 16:00 | EXP.PAIN.SOA ---
[facility] Disclaimer: The information contained in this section may have been updated after the patient was seen, as this information can be updated by other users. 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 Surgical History H/O mechanical aortic valve replacement Family History Other No significant family history Social History Smoking Status: Never smoker alcohol intake: never substance use type: denies use current occupational status: other Travel in the last 8 weeks?: None household members: spouse housing: house caffeine: Yes Have you lived/traveled outside [place] in past 30 days?: No Contact w/someone who lives/traveled outside US past 30 days?: No Exposure to someone with infectious disease in past 14 days?: No Do you have a fever (greater than 100.4 F or 38 C)?: No Have you tested positive for COVID-19?: No Exposed to someone with COVID-19 in past 14 days?: No Do you have a sore throat?: No Do you have a cough?: No Do you have any weakness?: No Do you have any diarrhea?: No Are you experiencing any unusual bleeding?: No Do you have any muscle aches/pain?: No Do you have any abdominal pain?: No Are you experiencing loss of taste or smell?: No PM Subjective & Objective Subjective Subjective:: Patient is a pleasant 79-year-old male who presents today for follow-up of his lumbar MRI. Today he rates his pain a 4 out of 10. Patient states he is still experiencing chronic pain there at his low back and does radiate out towards his sides. Patient does state the pain gets to where it is unbearable and does interfere with his ability perform activities of daily living such as cooking and cleaning. Patient is scheduled for a lumbar epidural coming up on the . Patient states he did get the compounded cream however he really did not notice a huge amount of improvement. He states it may help some. Patient is prescribed methocarbamol 750 mg 3 times a day from our office. He denies any side effects. His Hugo has been reviewed and is appropriate. Review of Systems: General: No recent weight changes, no fever, no sleep disturbances Respiratory: No cough, no shortness of air, no recurring pulmonary infections Cardiovascular/peripheral vascular: No chest pain, no palpitations, no edema, no shortness of breath Gastrointestinal: No new onset incontinence, normal bowel movements reported Genitourinary: No new onset incontinence Musculoskeletal: Low back pain, abdomen pain Psychiatric: [Normal mood/affect] Neurological: [Denies weakness in extremities], [denies balance issues] Pain at rest (0-10 scale): 4 Objective Objective:: Physical Exam: General: Alert and oriented x3, no acute distress, pleasant and cooperative Lungs: Respirations even and unlabored, symmetrical chest expansion Eyes: PERRL Musculoskeletal: Flexion and extension of lumbar [spine] somewhat guarded secondary to pain, [antalgic gait noted] Neurological: Speech clear, no gross sensory deficit Has patient had previous pain injection?: No Conservative treatment options previously tried: Home exercise plan Length of treatment: Longer than 12 weeks Meds Home Medications and Allergies Home Medications ?Medication ?Instructions ?Recorded ?Confirmed ?Type tamsulosin 0.4 mg capsule 0.8 mg PO DAILY 09/10/23 03/16/25 History dapagliflozin propanediol 10 mg See Rx Instructions .Route 03/29/24 03/16/25 Rx tablet .COMPLEX #90 tabs warfarin 4 mg tablet See Rx Instructions .Route 03/29/24 03/16/25 Rx .COMPLEX #120 tabs omeprazole 20 mg capsule,delayed 20 mg PO DAILY 06/21/24 03/16/25 History release simvastatin 20 mg tablet 20 mg PO DAILY 06/21/24 03/16/25 History oxybutynin chloride 10 mg 10 mg PO DAILY 09/23/24 03/16/25 History tablet,extended release 24 hr isoniazid 300 mg tablet 300 mg PO DAILY 11/01/24 03/16/25 History pyridoxine (vitamin B6) 100 mg 100 mg PO DAILY 11/01/24 03/16/25 History tablet leuprolide acetate (6 month) 45 mg 45 mg IM Q6 12/14/24 03/16/25 History intramuscular syringe kit (Lupron Depot) polyethylene glycol 3350 17 17 g PO DAILY 4 days #68 grams 12/14/24 03/16/25 Rx gram/dose oral powder (Miralax) vitamin B6-vitamin E-magnesium 1 tab PO DAILY 12/14/24 03/16/25 History tablet lisinopril 2.5 mg tablet 2.5 mg PO DAILY #90 tabs 12/20/24 03/16/25 Rx glipizide 10 mg tablet 10 mg PO DAILY #90 tabs 12/27/24 03/16/25 Rx hydrochlorothiazide 25 mg tablet 25 mg PO DAILY #90 tabs 12/27/24 03/16/25 Rx abatacept 125 mg/mL subcutaneous 125 mg SQ .monthy 01/07/25 03/16/25 History auto-injector (Orencia ClickJect) calcitonin (salmon) 200 1 spray intranasal (ALT) DAILY 01/13/25 03/16/25 Rx unit/actuation nasal spray #3.7 mL calcium 600 mg (as See Rx Instructions PO BID #60 caps 01/13/25 03/16/25 Rx carbonate)-vitamin D3 12.5 mcg (500 unit) capsule (Calcium with Vit D3) methocarbamol 500 mg tablet 500 mg PO TID #90 tabs 01/20/25 03/16/25 Rx prednisone 5 mg tablet 4 mg PO DAILY 01/20/25 03/16/25 History atenolol 50 mg tablet 50 mg PO DAILY BLOOD PRESSURE #90 02/28/25 03/16/25 Rx tabs hydrocodone 5 mg-acetaminophen 325 1 tab PO Q8H PRN pain #60 tabs 03/03/25 03/16/25 Rx mg tablet methocarbamol 750 mg tablet 750 mg PO TID #90 tabs 03/04/25 03/16/25 Rx New Prescriptions to Start Prescriptions: Allergies Allergy/AdvReac Type Severity Reaction Status Date / Time No Known Allergies Allergy Verified 03/03/25 08:52 Assessment and Plan *Assessment and plan (1) Lumbar radiculopathy: Status: Acute Category: Medical Code(s): M54.16 - Radiculopathy, lumbar region (2) Compression fracture of L1 lumbar vertebra: Status: Acute Category: Medical Code(s): S32.010A - Wedge compression fracture of first lumbar vertebra, initial encounter for closed fracture (3) Lumbar compression fracture: Status: Acute Category: Medical Code(s): S32.000A - Wedge compression fracture of unspecified lumbar vertebra, initial encounter for closed fracture Plan I did review over with the patient regarding his updated MRI that did show a new compression fracture of L3 with 30% height loss. Patient is today complaining of more lower pain compared to his previous visit. He is having radiating symptoms into his abdomen bilaterally whereas previously it was more one-sided up along his last rib. I did discuss with the patient that I do believe he is a potential candidate for the kyphoplasty. He is scheduled for a DEXA scan on the and we will follow-up with this regarding the osteoporosis. Patient has had radiation treatment for prostate cancer which I do believe played a significant role in possibly altering his bone health. Patient was counseled due to the pain now radiating lower and with the compression fracture showing edema I do believe it would be beneficial that we changed the original epidural location from the higher level compression deformity to the L3-L4 level. Patient is agreeable to this option. We will follow-up with the patient following this injection and his DEXA scan. Patient and spouse do agree with this plan of care. Patient has been instructed to contact the clinic with any concerns before the next appointment. Dr. Negro has reviewed this note and agrees with this plan of care. This note was dictated using voice recognition software and make contain errors or omissions. All injections are used with Lidocaine, Bupivacaine and dexamethasone. Occasionally urine drug screen is needed to verify patient's compliance with our office pain contract. This is ordered based off specific treatments related to chronic pain with the potential to abuse certain medications.
== END 2025-03-16 23:59 | disposition home or self-care (01) ==
LOC: SC.PAIN 14:57
PROVIDERS: PCP Family Medicine; Visit Provider Nurse Practitioner Family
DX: M54.16 Radiculopathy, lumbar region (principal); S32.010A Wedge compression fracture of first lumbar vertebra, initial encounter for closed fracture; X58.XXXA Exposure to other specified factors, initial encounter; Y93.9 Activity, unspecified; Y92.9 Unspecified place or not applicable; Z79.899 Other long term (current) drug therapy
CPT/HCPCS: 99212; G0463

== ENCOUNTER 2025-03-24 09:02 | Outpatient (CLI) | payer MEDICARE, OTHER, SELFPAY ==
--- NOTE | 2025-03-24 09:05 | XR_ITS ---
FINAL REPORT CLINICAL HISTORY: SCREENING COMPARISON: None FINDINGS: Using L1-4, the bone mineral density of the spine is 0.936 g/cm2, corresponding to T-score of -1.4. Using the left hip, the bone mineral density of the femoral neck is 0.712 g/cm2, corresponding to a T-score of -1.6. Using the right hip, the bone mineral density of the femoral neck is 0.686 g/cm2, corresponding to a T-score of -1.8. NOTE: T-score: Standard deviation compared with peak bone mass of young adult mean. *Following the recommendations of the International Society of Bone densitometry, classification of hip BMD is based on the lower of two T-scores; total hip or femoral neck. IMPRESSION: Diminished bone mineral density of the bilateral femoral necks and lumbar spine consistent with osteopenia. Reviewed, Interpreted and Dictated by Marlo Rao MD Transcribed by Leia Rosales Authenticated and [facility]
--- OUTSIDE RECORDS SUMMARY | 2025-03-24 09:06 | XMS_ITS | Clinical Summary ---
Author Organization [facility] ([place], [place], [place], [place]) Address [address] [place] [address] Care Team Providers Care Electrical Installer Name Role Phone Tristan Billings DO Primary Care Provider [phone] Allergies No known active allergies Medications glipiZIDE [...] any time in the past 12 [facility], were you homeless or living in a [place] health care facility (including now)? No 08/14/2024 Utilities Answer Date [...] living situation today? I have a [facility] place to live 08/10/2024 Think [...] Do you speak a language other than [facility]? 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
--- OUTSIDE RECORDS SUMMARY | 2025-03-24 09:06 | XMS_ITS | Data Portability ---
Author Organization [place] - [facility] [employer] [facility] Address [address] [place] [address] Care Team Providers Care Napkin Band Wrapper Name Role Phone FRED MURILLO Primary Care [...] Address Organization Details Recorded Time Diabetes mellitus 35193840 Active 2022 Faraz Jefferson null, [place] - [facility] 3 13:55:39 Essential hypertension 39820865 Active 2022 Faraz Jefferson null, [place] - [facility] 3 13:55:49 Anticoagulan t therapy Active 2022 MANDY Hart null, [place] - [facility] 3 13:26:20 Osteoarthrit is 577263397 Active 2022 MANDY Hart null, [place] - [facility] 3 13:26:33 Erectile dysfunction 561249859 Active 2022 MANDY Hart null, [place] - [facility] 3 13:26:40 Benign prostatic hyperplasia 011563871 Active 2022 MANDY Hart null, [place] - [facility] 3 13:26:49 Hyperlipidem ia 95283796 Active 2022 MANDY Hart null, [facility] 3 13:26:55 Problem Notes None recorded. Medical [...] Quit in 24 years ago [facility], [place] - [facility] 11/16/2021 15:33:17 Are You [...] anxious, or unable to sleep at night)? [id number] Information not available 11/16/2021 Do you have [...] [facility] [address],[place] te [address] [place], [place] [address] 11/16/2021 15:19:12 12/25/2021 23:31:53 Essential hypertension 31282452 I10 Uncontroll ed type 2 diabetes mellitus 293295436 E11.65 4710 Srikanth Edwards MD [facility] [address],[place] [address] [place] [address] 11/26/2021 14:38:42 01/08/2022 12:37:48 Diabetes mellitus 97470276 E11.9 Essential hypertension 13464585 I10 5926 Srikanth Edwards MD [facility] [address],[place] [address] [place] [address] 12/07/2021 15:42:51 01/03/2022 21:27:02 Diabetes mellitus 55236680 E11.9 Essential hypertension 45369957 I10 6729 MD ANIBAL TeixeiraCHNICOLA D [address] [place] [address] 12/14/2021 16:04:16 01/29/2022 03:54:52 Diabetes mellitus 64791134 E11.9 Essential hypertension 72124424 I10 7470 MD ANIBAL TeixeiraCHNICOLA D [address] [place] [address] 12/21/2021 16:01:40 01/29/2022 03:54:53 Diabetes mellitus 54134600 E11.9 Essential hypertension 39072259 I10 9186 Peter Owen , [place] [facility] [address] [place] [address] 01/04/2022 16:02:31 01/29/2022 03:54:56 Diabetes mellitus 95469849 E11.9 Essential hypertension 77580514 I10 85716 Srikanth Edwards MD [place] [facility] [address] [place] [address] 01/11/2022 16:17:47 01/28/2022 16:14:32 Diabetes mellitus 46866510 E11.9 Essential hypertension 42697315 I10 11605 MD ANIBAL Teixeira [facility] [address] [place] [address] 01/18/2022 16:12:09 02/14/2022 15:53:17 Diabetes mellitus 09741506 E11.9 Essential hypertension 97801888 I10 55288 Srikanth Edwards MD [place] [facility] [address] [place] [address] 01/25/2022 16:12:01 01/25/2022 22:10:14 Diabetes mellitus 51559502 E11.9 Essential hypertension 15195514 I10 08639 Srikanth Edwards MD [place] [facility] [address] [place] [address] 02/01/2022 16:08:44 02/04/2022 10:47:52 Diabetes mellitus 73455397 E11.9 Essential hypertension 03500001 I10 27755 Srikanth Edwards MD [place] [facility] [address] [place] [address] 02/08/2022 16:21:37 03/24/2022 13:15:23 Diabetes mellitus 13307754 E11.9 Essential hypertension 72230835 I10 66938 Srikanth Edwards MD [place] [facility] [address] [place] [address] 02/15/2022 16:03:42 02/19/2022 14:34:17 Diabetes mellitus 55159989 E11.9 Essential hypertension 69868251 I10 58061 Srikanth Edwards MD [place] [address] [place] [address] 02/22/2022 16:04:55 03/17/2022 23:46:42 Diabetes mellitus 74397149 E11.9 Essential hypertension 45031498 I10 85605 Srikanth Edwards MD [place] [address] [place] [address] 03/01/2022 16:07:59 03/17/2022 21:45:58 Diabetes mellitus 17852499 E11.9 Essential hypertension 25038626 I10 95183 Srikanth Edwards MD [place] [address] [place] [address] 03/08/2022 16:05:33 04/05/2022 03:53:43 Diabetes mellitus 19414185 E11.9 Essential hypertension 26031052 I10 61989 Srikanth Edwards MD [place] [address] [place] [address] 03/15/2022 16:11:27 04/26/2022 03:53:33 Diabetes mellitus 37874990 E11.9 Essential hypertension 19589114 I10 60067 MD ANIBAL Teixeira [facility] [address] [place] [address] 04/05/2022 16:21:27 04/24/2022 14:56:34 Diabetes mellitus 38232190 E11.9 Essential hypertension 07970283 I10 16882 Srikanth Edwards MD [place] [address] [place] [address] 04/19/2022 16:15:15 05/30/2022 03:54:38 Diabetes mellitus 24767533 E11.9 Essential hypertension 05460550 I10 41983 Srikanth Edwards MD [place] [address] [place] [address] 05/03/2022 16:55:42 05/29/2022 15:30:59 Diabetes mellitus 70403880 E11.9 Essential hypertension 47001421 I10 29313 Rajendra Hart, PHOTO SPECIALIST-CONSULTING HR PROFESSIONAL [place] [place] [address] [place] [address] 05/17/2022 16:05:31 06/27/2022 03:53:23 Diabetes mellitus 19995878 E11.9 Essential hypertension 39919818 I10 49866 Rajendra Hart PHOTO SPECIALIST-CONSULTING HR PROFESSIONAL [facility] [address] [place] [address] 05/31/2022 16:14:33 06/27/2022 03:53:27 Diabetes mellitus 49682279 E11.9 Essential hypertension 49192529 I10 65444 Rajendra Hart PHOTO SPECIALIST-CONSULTING HR PROFESSIONAL [facility] [address] [place] [address] 06/14/2022 16:18:22 06/26/2022 10:53:41 Diabetes mellitus 46997513 E11.9 Essential hypertension 02233972 I10 39823 Rajendra Hart PHOTO SPECIALIST-CONSULTING HR PROFESSIONAL [facility] [address] [place] [address] 06/28/2022 16:33:56 08/01/2022 03:52:38 Diabetes mellitus 29595973 E11.9 Essential hypertension 79057932 I10 94248 Rajendra Hart PHOTO SPECIALIST-CONSULTING HR PROFESSIONAL [facility] [address] [place] [address] 07/12/2022 16:20:00 07/31/2022 14:32:30 Diabetes mellitus 76974372 E11.9 Essential hypertension 89761355 I10 21680 Rajendra Hart PHOTO SPECIALIST-CONSULTING HR PROFESSIONAL [facility] [address] [place] [address] 07/26/2022 16:20:55 11/19/2022 10:48:00 Diabetes mellitus 49719128 E11.9 Essential hypertension 62085827 I10 76652 Rajendra Hart PHOTO SPECIALIST-CONSULTING HR PROFESSIONAL [facility] [address] [place] [address] 08/16/2022 16:30:19 08/19/2022 12:09:55 Diabetes mellitus 80581311 E11.9 Essential hypertension 80283109 I10 99084 Rajendra Hart PHOTO SPECIALIST-CONSULTING HR PROFESSIONAL [facility] [address] [place] [address] 08/30/2022 16:12:03 11/29/2022 13:02:35 Diabetes mellitus 19497833 E11.9 Essential hypertension 86738884 I10 00394 Rajendra Hart APRN-CONSULTING HR PROFESSIONAL [facility] [address] [place] [address] 09/13/2022 16:53:17 12/30/2022 00:26:22 Diabetes mellitus 04452297 E11.9 Essential hypertension 02158754 I10 29521 Rajendra Hart PHOTO SPECIALIST-CONSULTING HR PROFESSIONAL [facility] [address] [place] [address] 09/27/2022 16:19:22 12/30/2022 18:51:10 Diabetes mellitus 46898913 E11.9 Essential hypertension 89672440 I10 29498 Rajendra Hart APRN-CONSULTING HR PROFESSIONAL [facility] [address] [place] [address] 10/11/2022 16:17:43 01/18/2023 14:30:53 Diabetes mellitus 29307944 E11.9 Essential hypertension 05957986 I10 15208 SUSAN Welsh NS_Nursin g Schedule [address] [place] [address] 10/25/2022 16:34:28 01/29/2023 11:50:46 Diabetes mellitus 49546651 E11.9 Patient's glucose readings are trending higher in the mornings, but normal after meals. Fasting glucose this morning was 149. Pt states this is due to veering away from diabetic diet due to 's medical issues but will try to do better. Encouraged pt to continue checking blood glucose daily and choose diabetic friendly foods. Essential hypertension 49522304 I10 Patient's blood pressure readings are trending [...] as prescribed , and exercise as tolerated. 32992 SUSAN Welsh NS[facility]Nursin g Schedule [address] [place] [address] 11/08/2022 17:39:15 02/15/2023 21:45:57 Diabetes mellitus 93618295 E11.9 Essential hypertension 47586997 I10 36447 Rajendra Hart APRN-CONSULTING HR PROFESSIONAL [facility] Schedule [address] [place] [address] 11/22/2022 16:15:15 11/22/2022 16:41:00 Diabetes mellitus 76285214 E11.9 Essential hypertension 12796024 I10 92549 Rajendra Hart APRN-CONSULTING HR PROFESSIONAL [facility] Schedule [address] [place] [address] 12/13/2022 16:16:33 12/13/2022 16:24:25 Diabetes mellitus 19241554 E11.9 Essential hypertension 78214956 I10 244727 Rajendra Hart APRN-CONSULTING HR PROFESSIONAL [facility] Schedule [address] [place] [address] 01/17/2023 16:46:22 01/17/2023 16:52:09 Diabetes mellitus 25690090 E11.9 Essential hypertension 40378263 I10 [id number] Rajendra Hart APRN-CONSULTING HR PROFESSIONAL [facility] Schedule [address] [place] [address] 01/30/2023 15:12:10 01/30/2023 16:46:05 Diabetes mellitus 87237871 E11.9 Essential hypertension 84146912 I10 [id number] Rajendra Hart APRN-CONSULTING HR PROFESSIONAL [facility] Schedule [address] [place] [address] 02/07/2023 16:02:31 02/07/2023 16:07:35 Diabetes mellitus 21943530 E11.9 Essential hypertension 83597677 I10 [id number] Rajendra Hart PHOTO SPECIALIST-CONSULTING HR PROFESSIONAL [facility] Schedule [address] [place] [address] 02/21/2023 16:28:58 02/21/2023 16:34:55 Diabetes mellitus 21589035 E11.9 Essential hypertension 48175295 I10 562349 TODD CHOWDHURY NP NS[facility]Nursin g Schedule [address] [place] [address] 6 03/07/2023 15:48:39 03/07/2023 15:53:49 Diabetes mellitus 02857658 E11.9 Essential hypertension 69627645 I10 145126 TODD CHOWDHURY NP NS_Nursin g Schedule [address] [place] [address] 03/21/2023 15:40:28 03/21/2023 15:50:36 Diabetes mellitus 40567736 E11.9 Essential hypertension 08585727 I10 907807 TODD CHOWDHURY STAMPING MILL TENDER NS_Nursin g Schedule [address] [place] [address] 04/04/2023 15:45:51 04/04/2023 15:54:30 Diabetes mellitus 78751099 E11.9 Essential hypertension 50628667 I10 422273 TODD CHOWDHURY NP NS_Nursin g Schedule [address] [place] [address] 04/18/2023 15:33:35 04/18/2023 15:43:13 Diabetes mellitus 29954922 E11.9 Essential hypertension 75739041 I10 048726 TODD CHOWDHURY NP NS_Nursin g Schedule [address] [place] [address] 05/02/2023 15:42:42 05/02/2023 15:47:40 Diabetes mellitus 11318955 E11.9 Essential hypertension 43339523 I10 [id number] TODD CHOWDHURY NP NS_Nursin g Schedule [address] [place] [address] 05/23/2023 15:43:29 05/23/2023 15:50:23 Diabetes mellitus 09927225 E11.9 Essential hypertension 52776214 I10 957173 TODD CHOWDHURY NP NS_Nursin g Schedule [address] [place] [address] 06/06/2023 15:28:59 06/06/2023 15:39:02 Diabetes mellitus 84754620 E11.9 Essential hypertension 13720747 I10 161972 TODD CHOWDHURY NP NS_Nursin g Schedule [address] [place] [address] 07/18/2023 17:43:20 07/21/2023 09:45:32 Diabetes mellitus 43454727 E11.9 Essential hypertension 34568011 I10 [id number] TODD CHOWDHURY NP NS[facility]Nursin g Schedule [address] [place] [address] 08/01/2023 17:36:40 08/04/2023 10:06:54 Diabetes mellitus 35591257 E11.9 Essential hypertension 54547406 I10 968124 TODD CHOWDHURY NP NS_Nursin g Schedule [address] [place] [address] 08/22/2023 16:42:04 08/27/2023 10:54:09 Diabetes mellitus 22617585 E11.9 Essential hypertension 39860107 I10 184828 Annalise Taylor NP NS[facility]Nursin g Schedule [address] [place] [address] 09/05/2023 17:28:17 09/05/2023 17:49:18 Diabetes mellitus 34200076 E11.9 Essential hypertension 68594279 I10 864063 Annalise Taylor NP NS[facility]Nursin g Schedule [address] [place] [address] 10/31/2023 15:53:43 11/03/2023 15:44:35 Diabetes mellitus 91700569 E11.9 Essential hypertension 96473886 I10 232234 Annalise Taylor NP NS[facility]Nursin g Schedule [address] [place] [address] 11/28/2023 17:25:32 11/28/2023 17:37:46 Essential hypertension 01527291 I10 Diabetes mellitus 452358 09 E11.9 092654 Annalise Taylor NP NS[facility]Nursin g Schedule [address] [place] [address] 12/03/2023 17:39:49 12/03/2023 17:50:36 Essential hypertension 11224922 I10 Diabetes mellitus 525164 09 E11.9 013709 Annalise Taylor NP NS[facility]Nursin g Schedule [address] [place] [address] 12/17/2023 16:31:39 12/17/2023 16:39:03 Essential hypertension 37603076 I10 Diabetes mellitus 063185 09 E11.9 809212 Annalise Taylor NP NS[facility]Nursin g Schedule [address] [place] [address] 12/31/2023 16:49:01 12/31/2023 16:56:48 Essential hypertension 16375131 I10 Diabetes mellitus 331789 E11.9 323359 Annalise Taylor NP NS[facility]Nursin g Schedule [address] [place] [address] 01/14/2024 17:14:28 01/14/2024 17:25:19 Essential hypertension 16380811 I10 Diabetes mellitus 889766 E11.9 830167 Annalise Taylor NP NS[facility]Nursin g Schedule [address] [place] [address] 01/28/2024 17:09:51 01/28/2024 17:19:17 Essential hypertension 58998664 I10 Diabetes mellitus 557023 E11.9 178849 Annalise Taylor NP NS[facility]Nursin g Schedule [address] [place] [address] 02/25/2024 16:39:38 02/25/2024 16:49:57 Essential hypertension 59253965 I10 Diabetes mellitus 569263 E11.9 040907 Annalise Taylor NP PS_Provid er Schedule [address] [place] [address] 02/26/2024 16:38:32 02/26/2024 16:48:12 Diabetes mellitus 15936223 E11.9 -Continue the following medication s as [...] no fluid restrictio n? YES. Essential hypertension 65848061 I10 -Continue the following medication s as [...] restrictio n? YES.Watchi ng salt intake? YES. 817743 KELLY Carreon_Nursin g Schedule [address] [place] [address] 03/10/2024 17:35:11 03/11/2024 09:38:18 Essential hypertension 32500753 I10 Diabetes mellitus 980747 E11.9 983343 KELLY Carreon_Nursin g Schedule [address] [place] [address] 03/24/2024 16:31:57 03/24/2024 16:49:23 Essential hypertension 37640132 I10 Diabetes mellitus 820509 E11.9 410013 KELLY Carreon_Nursin g Schedule [address] [place] [address] 04/07/2024 16:38:20 04/07/2024 16:53:36 Essential hypertension 35500284 I10 Diabetes mellitus 154928 E11.9 321300 KELLY Carreon_Nursin g Schedule [address] [place] [address] 04/23/2024 15:44:06 04/23/2024 15:55:49 Essential hypertension 59126193 I10 Diabetes mellitus 294699 E11.9 218017 KELLY Carreon_Nursin g Schedule [address] [place] [address] 05/19/2024 16:41:13 05/19/2024 16:57:22 Essential hypertension 53012992 I10 Diabetes mellitus 511823 E11.9 726003 KELLY Carreon_Nursin g Schedule [address] [place] [address] 06/02/2024 16:39:18 06/02/2024 16:58:29 Essential hypertension 30808772 I10 Diabetes mellitus 835235 09 E11.9 368547 Annalise Taylor, STAMPING MILL TENDER NS_Nursin g Schedule [address] [place] [address] 06/16/2024 15:57:59 06/16/2024 16:15:11 Essential hypertension 38727221 I10 Diabetes mellitus 266770 E11.9 037669 Annalise Taylor, STAMPING MILL TENDER NS_Nursin g Schedule [address] [place] [address] 06/30/2024 16:33:01 06/30/2024 16:45:21 Essential hypertension 12573402 I10 Diabetes mellitus 578481 E11.9 895739 Annalise Taylor NP NS_Nursin g Schedule [address] [place] [address] 07/14/2024 16:18:27 07/14/2024 16:38:25 Diabetes mellitus 24650226 E11.9 Essential hypertension 80203132 I10 778921 Annalise Taylor NP NS_Nursin g Schedule [address] [place] [address] 07/21/2024 17:39:48 07/21/2024 18:00:12 Essential hypertension 49019854 I10 Diabetes mellitus 344052 E11.9 607118 Annalise Taylor NP NS_Nursin g Schedule [address] [place] [address] 07/28/2024 17:47:57 07/28/2024 18:03:49 Diabetes mellitus 17435977 E11.9 Diabetes mellitus Essential hypertension 52811615 I10 Essential hypertensi on 537872 Annalise Taylor NP NS_Nursin g Schedule [address] [place] [address] 08/11/2024 17:24:32 08/11/2024 17:28:35 Diabetes mellitus 00985779 E11.9 Diabetes mellitus Essential hypertension 59719316 I10 Essential hypertensi on 220619 Annalise Taylor NP NS_Nursin g Schedule [address] [place] [address] 08/18/2024 17:45:40 08/18/2024 18:00:35 Diabetes mellitus 22787182 E11.9 Diabetes mellitus Essential hypertension 58952867 I10 Essential hypertensi on 770794 Annalise Taylor, STAMPING MILL TENDER NS_Nursin g Schedule [address] [place] [address] 08/25/2024 17:32:06 08/25/2024 17:45:47 Diabetes mellitus 49238517 E11.9 Diabetes mellitus Essential hypertension 35818092 I10 Essential hypertensi on 292884 Annalise Taylor, STAMPING MILL TENDER NS_Nursin g Schedule [address] [place] [address] 09/01/2024 17:04:25 09/01/2024 17:12:44 Diabetes mellitus 92450849 E11.9 Diabetes mellitus Essential hypertension 04745002 I10 Essential hypertensi on 127445 Annalise Taylor, KELLY NS_Nursin g Schedule [address] [place] [address] 09/09/2024 12:13:36 09/09/2024 12:16:47 Diabetes mellitus 88990886 E11.9 Diabetes mellitus Essential hypertension 53545083 I10 Essential hypertensi on 093364 Annalise aTylor, KELLY NS_Nursin g Schedule [address] [place] [address] 09/22/2024 18:18:09 09/23/2024 00:42:25 Diabetes mellitus 96064839 E11.9 Diabetes mellitus Essential hypertension 38055994 I10 Essential hypertensi on 918271 Annalise Taylor, KELLY NS_Nursin g Schedule [address] [place] [address] 09/29/2024 17:43:59 09/29/2024 17:52:53 Diabetes mellitus 01376677 E11.9 Diabetes mellitus Essential hypertension 90048168 I10 Essential hypertensi on 484909 Annalise Taylor, STAMPING MILL TENDER PS_Provid er Schedule [address] [place] [address] 10/05/2024 16:19:13 10/05/2024 16:30:38 Diabetes mellitus 76665626 E11.9 Diabetes mellitus Essential hypertension 92666413 I10 Hypertensi on Ongoing Care Plan - [...] while enrolled- As needed as concerns arise 661821 KELLY Carreon_Connorin g Schedule [address] [place] [address] 10/06/2024 16:48:08 10/06/2024 16:49:21 Diabetes mellitus 17731457 E11.9 Diabetes mellitus Essential hypertension 26143191 I10 Essential hypertensi on 408816 KELLY Carreon_Connorin g Schedule [address] [place] [address] 10/06/2024 17:45:23 10/06/2024 18:02:20 Diabetes mellitus 98479806 E11.9 Diabetes mellitus Essential hypertension 43729235 I10 Essential hypertensi on 438633 KELLY Carreon g Schedule [address] [place] [address] 10/13/2024 16:35:33 10/13/2024 17:08:55 Diabetes mellitus 12850463 E11.9 Diabetes mellitus Essential hypertension 44260083 I10 Essential hypertensi on 467339 KELLY Carreonin g Schedule [address] [place] [address] 10/20/2024 16:40:00 10/20/2024 17:00:03 Diabetes mellitus 51768288 E11.9 Diabetes mellitus Essential hypertension 59328686 I10 Essential hypertensi on 975565 Annalise Taylor, STAMPING MILL TENDER NS_Nursin g Schedule [address] [place] [address] 10/27/2024 17:15:42 10/27/2024 17:26:09 Diabetes mellitus 02648372 E11.9 Diabetes mellitus Essential hypertension 75578196 I10 Essential hypertensi on 177940 Annalise Taylor, STAMPING MILL TENDER NS_Nursin g Schedule [address] [place] [address] 11/03/2024 16:31:49 11/03/2024 16:47:04 Diabetes mellitus 25010252 E11.9 Diabetes mellitus Essential hypertension 57505779 I10 Essential hypertensi on 825817 Annalise Taylor, STAMPING MILL TENDER NS_Nursin g Schedule [address] [place] [address] 11/10/2024 16:22:43 11/10/2024 16:31:06 Diabetes mellitus 57168431 E11.9 Diabetes mellitus Essential hypertension 09207711 I10 Essential hypertensi on 673487 Annalise Taylor, STAMPING MILL TENDER NS_Nursin g Schedule [address] [place] [address] 11/11/2024 10:18:10 11/11/2024 10:24:38 Diabetes mellitus 03472970 E11.9 Diabetes mellitus Essential hypertension 18951916 I10 Essential hypertensi on 870897 Annalise Taylor, STAMPING MILL TENDER NS_Nursin g Schedule [address] [place] [address] 11/17/2024 16:20:28 11/17/2024 16:41:39 Diabetes mellitus 17536318 E11.9 Diabetes mellitus Essential hypertension 04661221 I10 Essential hypertensi on 590800 Annalise Taylor, STAMPING MILL TENDER NS_Nursin g Schedule [address] [place] [address] 11/24/2024 16:44:33 11/24/2024 16:55:25 Diabetes mellitus 56525362 E11.9 Diabetes mellitus Essential hypertension 41790672 I10 Essential hypertensi on 469102 Annalise Taylor, STAMPING MILL TENDER NS_Nursin g Schedule [address] [place] [address] 11/25/2024 08:40:30 11/25/2024 08:42:30 Diabetes mellitus 67698028 E11.9 Diabetes mellitus Essential hypertension 43091615 I10 Essential hypertensi on 645046 Annalise Taylor NP NS_Nursin g Schedule [address] [place] [address] 12/01/2024 16:47:39 12/01/2024 16:58:01 Diabetes mellitus 48857693 E11.9 Diabetes mellitus Essential hypertension 74272017 I10 Essential hypertensi on 019356 Annalise Taylor NP NS_Nursin g Schedule [address] [place] [address] 12/08/2024 16:18:09 12/08/2024 16:35:01 Diabetes mellitus 88296691 E11.9 Diabetes mellitus Essential hypertension 67187540 I10 Essential hypertensi on Goals Section Goal [...] of care None Recorded Progressing active 2023 [place] Information not available 01/14/2024 21:25:05 Heart Healthy Diet Maintain a low sodium and low fat diet, restricting artificial sweetener use NoChange active 2023 [place] Information not available 01/28/2024 21:18:56 Health Concerns Section Related Observation LastModified by Organization Detai ls LastModified Time None Recorded Concern Status LastModified by Organization Details LastModified Time None Recorded Advance Directives Directive None Recorded Payers Insurance Date Sequence Insurance Name Policy Number Policy Carroll Covered Member ID Carroll Member ID Guarantor Name 11/17/2024 [place] Martin Lezama [id number] Martin Lezama 11/17/2024 1 [place] Martin Lezama [id number] Martin Lezama 11/17/2024 [place] Martin Lezama [id number] Martin Lezama 01/19/2025 2 FOR LIFE ( - MEDICARE SUPPLEMENT) Martin Lezama [id number] Martin Lezama
--- OUTSIDE RECORDS SUMMARY | 2025-03-24 09:06 | XMS_ITS | Continuity of Care Document ---
Author Organization [facility]ud[facility] Address [address] [place] [address] Assessment No assessment recorded. Plan of Treatment Reminders Order Date Submit Date Provider Last Modified By Organization Details Last Modified Time Details Appointments RECHECK 2024 01:30P M ZORAIDA GARDNER MD Not available Not available Not available RECHECK 2024 01:30P M FADY LAMB MD Not available Not available Not available Lab urinalysi s panel, auto 2024 025 [email or web address] [facility], [address] [facility], [place], [address], 02/28/2025 14:44:08 PSA, serum or plasma 2024 025 [email or web address] [facility], [address] [facility], [address], [place], [address], 02/28/2025 14:44:08 Referral None recorded. Procedures None recorded. Surgeries None recorded. Imaging None recorded. Medication Orders None recorded. Patient TargetsNo targets recorded. Patient InstructionsNo instructions recorded. Reason for Referral None Reported. Results Created Date Observation Date Name Description Value Unit Range Abnormal Flag Note LastModifiedBy Organization Detail LastModifiedTime 02/29/2002/28/2025 urina lysis panel , auto Unknown Analyte Clean Catch Not Available [facility] [address], [place], [address], 02/28/2025 14:04:51 02/29/20 25 02/28/2025 urina lysis panel , auto Unknown Analyte Yellow Not Available [facility] [address], [place], [address], 02/28/2025 14:04:51 02/29/20 25 02/28/2025 urina lysis panel , auto Unknown Analyte Clear Not Available [facility] [address], [place], [address], 02/28/2025 14:04:51 02/29/20 25 02/28/2025 urina lysis panel , auto Unknown Analyte 1.020 Not Available [facility] [address], [place], [address], 02/28/2025 14:04:51 02/29/20 25 02/28/2025 urina lysis panel , auto Unknown Analyte 1.003 - 1.030 Not Available [facility] [address], [place], [address], 02/28/2025 14:04:51 02/29/20 25 02/28/2025 urina lysis panel , auto Unknown Analyte 5.0 Not Available [facility] With [address], [place], [address], 02/28/2025 14:04:51 02/29/20 25 02/28/2025 urina lysis panel , auto Unknown Analyte 5.0 - 8.0 Not Available [facility] With [address], [place], [address], 02/28/2025 14:04:51 02/29/20 25 02/28/2025 urina lysis panel , auto Unknown Analyte 75 Iveth/uL Not Available [facility] [address], [place], [address], 02/28/2025 14:04:51 02/29/20 25 02/28/2025 urina lysis panel , auto Unknown Analyte Negati ve Not Available [facility] [address], [place], [address], 02/28/2025 14:04:51 02/29/20 25 02/28/2025 urina lysis panel , auto Unknown Analyte Negati ve Not Available [facility] [address], [place], [address], 02/28/2025 14:04:51 02/29/20 25 02/28/2025 urina lysis panel , auto Unknown Analyte Negati ve Not Available [facility] [address], [place], [address], 02/28/2025 14:04:51 02/29/20 25 02/28/2025 urina lysis panel , auto Unknown Analyte Trace Not Available [facility] [address], [place], [address], 02/28/2025 14:04:51 02/29/20 25 02/28/2025 urina lysis panel , auto Unknown Analyte Negati ve Not Available [facility] [address], [place], [address], 02/28/2025 14:04:51 02/29/20 25 02/28/2025 urina lysis panel , auto Unknown Analyte >1000 mg/dL Not Available [facility] [address], [place], [address], 02/28/2025 14:04:51 02/29/20 25 02/28/2025 urina lysis panel , auto Unknown Analyte Normal Not Available [facility] [address], [place], [address], 02/28/2025 14:04:51 02/29/20 25 02/28/2025 urina lysis panel , auto Unknown Analyte Negati ve Not Available [facility] [address], [place], [address], 02/28/2025 14:04:51 02/29/20 25 02/28/2025 urina lysis panel , auto Unknown Analyte Negati ve Not Available [facility] [address], [place], [address], 02/28/2025 14:04:51 02/29/20 25 02/28/2025 urina lysis panel , auto Unknown Analyte Normal Not Available [facility] [address], [place], [address], 02/28/2025 14:04:51 02/29/20 25 02/28/2025 urina lysis panel , auto Unknown Analyte Normal Not Available [facility] [address], [place], [address], 02/28/2025 14:04:51 02/29/20 25 02/28/2025 urina lysis panel , auto Unknown Analyte 1 mg/dL Not Available [facility] [address], [place], [address], 02/28/2025 14:04:51 02/29/20 25 02/28/2025 urina lysis panel , auto Unknown Analyte Negati ve Not Available [facility] [address], [place], [address], 02/28/2025 14:04:51 02/29/20 25 02/28/2025 urina lysis panel , auto Unknown Analyte 50 Arslan/uL Not Available [facility] [address] [facility] [address], [place], [address], 02/28/2025 14:04:51 02/29/20 25 02/28/2025 urina lysis panel , auto Unknown Analyte Negati ve Not Available [facility] [address] [facility] [address], [place], [address], 02/28/2025 14:04:51 Result Notes None recorded. Problems No Known Problems Procedures Surgical History Date Name Laterality Status Provider Name and Address Organization Details Recorded Time 02/29/20 25 Lupron Administration completed Harleen Porfirio [facility] 02/28/2025 14:50:38 09/03/20 24 Lupron Administration completed Sadia Ndiaye [facility] 09/03/2024 13:10:22 Vasectomy completed Sadia Ndiaye [facility] 05/19/2024 15:50:09 procedure on knee completed Sadia Ndiaye [facility] 05/19/2024 15:52:15 mechanical prosthetic aortic valve replacement completed Tammy Curtis [facility] 05/21/2024 09:02:43 Imaging Results None recorded. [...] Updated DateTime 02/28/2025 187.96 cm 23.8 kg/m2 87018.59 g Harleen Monroy [facility] 02/28/2025 14:14:02 Social History Question Answer Notes LastModified by Organizat ion Details LastModified Time Tobacco Smoking Status [facility] 15:49:08 When Did You Quit Smoking? 18+yearssin [email or web address] Information not available 05/19/2024 What Was The Date Of Your Most Recent Tobacco Screening? 02/28/2025 [email or web address] Information not available 02/28/2025 What Is Your Relationship Status? [email or web address] Information not available 05/19/2024 How Much Tobacco Do You Smoke? No [email or web address] Information not available 05/19/2024 Has Tobacco Cessation Counseling Been Provided? No Information not available 05/19/2024 Sex: Male Functional Status Question Answer Note LastModified by Organizat ion Details LastModified Time Do you use any illicit or recreational drugs? No [email or web address] Information not available 05/19/2024 Do you or have you ever used any other forms of tobacco or nicotine? No [email or web address] Information not available 05/19/2024 What is your level of alcohol consumption? None [email or web address] Information not available 05/19/2024 Are you currently employed? No retired [email or web address] Information not available 05/19/2024 Mental Status None recorded. Family History Nothing Reported. Medical History Condition Response Sleep Apnea Y Past Encounters Encounter ID Performer Location Encounter Start Date Encounter Closed Date Diagnosis/Indication Diagnosis SNOMED-CT Code Diagnosis ICD10 Code Diagnosis Note [id number] FADY LAMB MD [facility] [address] [place] [address] 02/28/2025 13:16:41 02/28/2025 14:52:53 History of malignant neoplasm of prostate 947105117 Z85.46 He received a 6-month Eligard injection [...] Name 02/28/2025 1 [place] Martin Lezama [id number] Martin Lezama 02/28/2025 2 FOR LIFE () Martin Lezama [id number] Martin Lezama Notes Date Note Type Note [...] months. He now seeing Dr. Pappas in [place] as his primary care. FADY LAMB MD [facility] [place], [address], [facility] 02/28/2025 17:48:31
--- OUTSIDE RECORDS SUMMARY | 2025-03-24 09:06 | XMS_ITS | Data Portability ---
Author Organization [facility] ADMIN Address [address] [place] [id number] Care Team Providers Care Ergonomist Name Role Phone MAXIMILIAN TORRES Primary Care Provider AURELAI DEL CASTILLO Mold Shifter FADY LAMB Urologist EMERY PIEDRA Mandarin Chinese Teacher GAYLA SANCHEZ Primary Care Provider [phone] Assessment No assessment recorded. Plan of Treatment Reminders Order Date Submit Date Provider Last Modified By Organization Details Last Modified Time Details Appointments None recorded. Lab CBC w/ auto diff 2024 025 [facility], [address] [facility], [place], [address], 5 14:21:17 hepatic function panel, serum 2024 025 [email or web address] [id number] [facility], [address] [place], [address], 5 19:55:37 CBC w/ auto diff 2024 025 [facility], [address] [facility], [place], [address], 5 14:27:12 hepatic function panel, serum 2024 025 [email or web address] [id number] [facility], [address] [facility], [place], [address], 5 13:17:52 CBC w/ auto diff 2023 [facility], [address] , [place], [address], 4 11:59:13 hepatic function panel, serum 2023 [facility], [address] , [place], [address], 4 11:55:46 CBC w/ auto diff 2023 [facility], [address] , [place], [address], 4 10:11:21 hepatic function panel, serum 2023 [facility], [address] , [place], [address], 10:49:19 Referral None recorded. Procedures None recorded. Surgeries None recorded. Imaging None recorded. Medication Orders isoniazid 300 mg tablet 2023 [facility], [facility] [place] [place], [address], 10:48:31 Patient TargetsNo targets recorded. Patient InstructionsNo instructions recorded. Reason for Referral None Reported. Results Created Date Observation Date Name Description Value Unit Range Abnormal Flag Note LastModifiedBy Organization Detail LastModifiedTime 07/23/2007/23/2024 CBC AUTO W DIFF WBC 11.5 K/uL 4.0-10 .5 high Not Available [facility] ([facility]) [address] , [place], [address], 07/23/2024 10:11:21 07/23/20 24 07/23/2024 CBC AUTO W DIFF RBC 3.4 M/mm3 4.7-6. 1 low Not Available [facility] ([facility]) [address], [place], [address], 07/23/2024 10:11:21 07/23/20 24 07/23/2024 CBC AUTO W DIFF HGB 11.0 gm/dL 13.5-1 8.0 low Not Available [facility] ([facility]) [address], [place], [address], 07/23/2024 10:11:21 07/23/20 24 07/23/2024 CBC AUTO W DIFF HCT 34.7 % 42.0-5 2.0 low Not Available [facility] ([facility]) [address], [place], [address], 07/23/2024 10:11:21 07/23/20 24 07/23/2024 CBC AUTO W DIFF MCV 100.9 fL 78-100 high Not Available [facility] ([facility]) [address], [place], [address], 07/23/2024 10:11:21 07/23/20 24 07/23/2024 CBC AUTO W DIFF MCH 32.0 pg 27-31 high Not Available [facility] ([facility]) [address], [place], [address], 07/23/2024 10:11:21 07/23/20 24 07/23/2024 CBC AUTO W DIFF MCHC 31.7 g/dL 32-36 low Not Available [facility] ([facility]) [address] , [place], [address], 07/23/2024 10:11:21 07/23/20 24 07/23/2024 CBC AUTO W DIFF RDW 16.3 % 11.5-1 4.0 high Not Available [facility] ([facility]) [address] , [place], [address], 07/23/2024 10:11:21 07/23/20 24 07/23/2024 CBC AUTO W DIFF platelet count 310 K/uL 150-45 0 Not Available [facility] ([facility]) [address] , [place], [address], 07/23/2024 10:11:21 07/23/20 24 07/23/2024 CBC AUTO W DIFF MPV 9.7 fL 6-9.5 high Not Available [facility] ([facility]) [address] , [place], [address], 07/23/2024 10:11:21 07/23/20 24 07/23/2024 CBC AUTO W DIFF neutrophil% 80.6 % 43-65 high Not Available [facility] ([facility]) [address], [place], [address], 07/23/2024 10:11:21 07/23/20 24 07/23/2024 CBC AUTO W DIFF lymphocyte% 10.4 % 20.5-4 5.5 low Not Available [facility] ([facility]) [address], [place], [address], 07/23/2024 10:11:21 07/23/20 24 07/23/2024 CBC AUTO W DIFF monocyte% 6.9 % 5.5-11 .7 Not Available [facility] ([facility]) [address] [place], [address], 07/23/2024 10:11:21 07/23/20 24 07/23/2024 CBC AUTO W DIFF eosinophil% 1.0 % 0.9-2. 9 Not Available [facility] ([facility]) [address] [place], [address], 07/23/2024 10:11:21 07/23/20 24 07/23/2024 CBC AUTO W DIFF basophil% 0.4 % 0.2-1. 0 Not Available [facility] [address] [place], [address], 07/23/2024 10:11:21 07/23/20 24 07/23/2024 CBC AUTO W DIFF immature granulocytes % 0.7 % 0.0-0. 8 Not Available [facility] ([facility]) [address], [place], [address], 07/23/2024 10:11:21 07/23/20 24 07/23/2024 CBC AUTO W DIFF nucleated red blood cells % 0.3 % Not Available [facility] ([facility]) [address] [facility], [place], [address], 07/23/2024 10:11:21 07/23/20 24 07/23/2024 CBC AUTO W DIFF neutrophil# 9.3 K/uL 2.2-4. 8 high Not Available [facility] ([facility]) [address] [facility], [place], [address], 07/23/2024 10:11:21 07/23/20 24 07/23/2024 CBC AUTO W DIFF lymphocyte# 1.2 cell/ mcL 1.3-2. 9 low Not Available [facility] ([facility]) [address], [place], [address], 07/23/2024 10:11:21 07/23/20 24 07/23/2024 CBC AUTO W DIFF monocyte# 0.8 cell/ mcL 0.3-0. 8 Not Available [facility] ([facility]) [address], [place], [address], 07/23/2024 10:11:21 07/23/20 24 07/23/2024 CBC AUTO W DIFF eosinophil# 0.1 cell/ mcL 0-0.2 Not Available [facility] ([facility]) [address] [place], [address], 07/23/2024 10:11:21 07/23/20 24 07/23/2024 CBC AUTO W DIFF basophil# 0.1 cell/ mcL 0.0-1. 0 Not Available [facility] ([facility]) [address] , [place], [address], 07/23/2024 10:11:21 07/23/20 24 07/23/2024 CBC AUTO W DIFF immature gramulocytes # 0.08 K/uL Not Available [facility] ([facility]) [address] , [place], [address], 07/23/2024 10:11:21 07/23/20 24 07/23/2024 CBC AUTO W DIFF nucleated red blood cells # 0.03 K/uL Not Available [facility] ([facility]) [address] , [place], [address], 07/23/2024 10:11:21 07/23/20 24 07/23/2024 CBC AUTO W DIFF manual differential NO Not Available [facility] ([facility]) [address] , [place], [address], 07/23/2024 10:11:21 07/23/20 24 07/23/2024 HEPAT IC FUNCT IONAL PANEL total protein 7.3 g/dL 6.4-8. 2 Not Available [facility] ([facility]) [address] , [place], [address], 07/23/2024 10:22:19 07/23/20 24 07/23/2024 HEPAT IC FUNCT IONAL PANEL albumin 3.6 g/dL 3.4-5. 0 Not Available [facility] ([facility]) [address] , [place], [address], 07/23/2024 10:22:19 07/23/20 24 07/23/2024 HEPAT IC FUNCT IONAL PANEL bilirubin direct 0.1 O.oo-0 .30 Not Available [facility] ([facility]) [address], [place], [address], 07/23/2024 10:22:19 07/23/20 24 07/23/2024 HEPAT IC FUNCT IONAL PANEL bilirubin total 0.40 mg/dL 0.10-1 .00 Not Available [facility] ([facility]) [address] , [place], [address], 07/23/2024 10:22:19 07/23/20 24 07/23/2024 HEPAT IC FUNCT IONAL PANEL bilirubin indirect 0.30 Not Available [facility] ([facility]) [address] , [place], [address], 07/23/2024 10:22:19 07/23/20 24 07/23/2024 HEPAT IC FUNCT IONAL PANEL AST (SGOT) 17 U/L 0-37 Not Available [facility] ([facility]) [address] , [place], [address], 07/23/2024 10:22:19 07/23/20 24 07/23/2024 HEPAT IC FUNCT IONAL PANEL ALT (SGPT) 45 U/L 0-65 Not Available [facility] ([facility]) [address] , [place], [address], 07/23/2024 10:22:19 07/23/20 24 07/23/2024 HEPAT IC FUNCT IONAL PANEL alk phosphatase 49 U/L 46-116 Not Available [facility] ([facility]) [address] , [place], [address], 07/23/2024 10:22:19 08/20/20 24 08/20/2024 HEPAT IC FUNCT IONAL PANEL total protein 7.4 g/dL 6.4-8. 2 Not Available [facility] ([facility]) [address], [place], [address], 08/20/2024 11:54:21 08/20/20 24 08/20/2024 HEPAT IC FUNCT IONAL PANEL albumin 4.1 g/dL 3.4-5. 0 Not Available [facility] ([facility]) [address] , [place], [address], 08/20/2024 11:54:21 08/20/20 24 08/20/2024 HEPAT IC FUNCT IONAL PANEL bilirubin direct 0.1 O.oo-0 .30 Not Available [facility] ([facility]) [address] , [place], [address], 08/20/2024 11:54:21 08/20/20 24 08/20/2024 HEPAT IC FUNCT IONAL PANEL bilirubin total 0.50 mg/dL 0.10-1 .00 Not Available [facility] ([facility]) [address] , [place], [address], 08/20/2024 11:54:21 08/20/20 24 08/20/2024 HEPAT IC FUNCT IONAL PANEL bilirubin indirect 0.40 Not Available [facility] ([facility]) [address] , [place], [address], 08/20/2024 11:54:21 08/20/20 24 08/20/2024 HEPAT IC FUNCT IONAL PANEL AST (SGOT) 20 U/L 0-37 Not Available [facility] ([facility]) [address] , [place], [address], 08/20/2024 11:54:21 08/20/20 24 08/20/2024 HEPAT IC FUNCT IONAL PANEL ALT (SGPT) 64 U/L 0-65 Not Available [facility] ([facility]) [address] , [place], [address], 08/20/2024 11:54:21 08/20/20 24 08/20/2024 HEPAT IC FUNCT IONAL PANEL alk phosphatase 53 U/L 46-116 Not Available [facility] ([facility]) [address], [place], [address], 08/20/2024 11:54:21 10/21/19 25 10/21/2024 HEPAT IC FUNCT IONAL PANEL total protein 6.9 g/dL 6.4-8. 2 Not Available [facility] ([facility]) [address], [place], [address], 10/21/2024 11:57:13 10/21/19 25 10/21/2024 HEPAT IC FUNCT IONAL PANEL albumin 3.6 g/dL 3.4-5. 0 Not Available [facility] ([facility]) [address], [place], [address], 10/21/2024 11:57:13 10/21/19 25 10/21/2024 HEPAT IC FUNCT IONAL PANEL bilirubin direct 0.2 O.oo-0 .30 Not Available [facility] ([facility]) [address], [place], [address], 10/21/2024 11:57:13 10/21/19 25 10/21/2024 HEPAT IC FUNCT IONAL PANEL bilirubin total 0.50 mg/dL 0.10-1 .00 Not Available [facility] ([facility]) [address], [place], [address], 10/21/2024 11:57:13 10/21/19 25 10/21/2024 HEPAT IC FUNCT IONAL PANEL bilirubin indirect 0.30 Not Available [facility] ([facility]) [address], [place], [address], 10/21/2024 11:57:13 10/21/19 25 10/21/2024 HEPAT IC FUNCT IONAL PANEL AST (SGOT) 23 U/L 0-37 Not Available [facility] ([facility]) [address], [place], [address], 10/21/2024 11:57:13 10/21/19 25 10/21/2024 HEPAT IC FUNCT IONAL PANEL ALT (SGPT) 59 U/L 0-65 Not Available [facility] ([facility]) [address] , [place], [address], 10/21/2024 11:57:13 10/21/19 25 10/21/2024 HEPAT IC FUNCT IONAL PANEL alk phosphatase 55 U/L 46-116 Not Available [facility] ([facility]) [address] , [place], [address], 10/21/2024 11:57:13 10/21/19 25 10/21/2024 CBC AUTO W DIFF WBC 5.0 K/uL 4.0-10 .5 Not Available [facility] ([facility]) [address], [place], [address], 10/21/2024 14:27:12 10/21/19 25 10/21/2024 CBC AUTO W DIFF RBC 3.6 M/mm3 4.7-6. 1 low Not Available [facility] ([facility]) [address], [place], [address], 10/21/2024 14:27:12 10/21/19 25 10/21/2024 CBC AUTO W DIFF HGB 9.5 gm/dL 13.5-1 8.0 low Not Available [facility] ([facility]) [address], [place], [address], 10/21/2024 14:27:12 10/21/19 25 10/21/2024 CBC AUTO W DIFF HCT 32.8 % 42.0-5 2.0 low Not Available [facility] ([facility]) [address], [place], [address], 10/21/2024 14:27:12 10/21/19 25 10/21/2024 CBC AUTO W DIFF MCV 90.1 fL 78-100 Not Available [facility] ([facility]) [address], [place], [address], 10/21/2024 14:27:12 10/21/19 25 10/21/2024 CBC AUTO W DIFF MCH 26.1 pg 27-31 low Not Available [facility] ([facility]) [address] , [place], [address], 10/21/2024 14:27:12 10/21/19 25 10/21/2024 CBC AUTO W DIFF MCHC 29.0 g/dL 32-36 low Not Available [facility] ([facility]) [address] , [place], [address], 10/21/2024 14:27:12 10/21/19 25 10/21/2024 CBC AUTO W DIFF RDW 19.9 % 11.5-1 4.0 high Not Available [facility] ([facility]) [address] , [place], [address], 10/21/2024 14:27:12 10/21/19 25 10/21/2024 CBC AUTO W DIFF platelet count 237 K/uL 150-45 0 Not Available [facility] ([facility]) [address] , [place], [address], 10/21/2024 14:27:12 10/21/19 25 10/21/2024 CBC AUTO W DIFF MPV 10.1 fL 6-9.5 high Not Available [facility] ([facility]) [address] , [place], [address], 10/21/2024 14:27:12 10/21/19 25 10/21/2024 CBC AUTO W DIFF neutrophil% 87.2 % 43-65 high Not Available [facility] ([facility]) [address] , [place], [address], 10/21/2024 14:27:12 10/21/19 25 10/21/2024 CBC AUTO W DIFF lymphocyte% 6.4 % 20.5-4 5.5 low Not Available [facility] ([facility]) [address] [place], [address], 10/21/2024 14:27:12 10/21/19 25 10/21/2024 CBC AUTO W DIFF monocyte% 4.6 % 5.5-11 .7 low Not Available [facility] ([facility]) [address] [place], [address], 10/21/2024 14:27:12 10/21/19 25 10/21/2024 CBC AUTO W DIFF eosinophil% 0.2 % 0.9-2. 9 low Not Available [facility] ([facility]) [address] [place], [address], 10/21/2024 14:27:12 10/21/19 25 10/21/2024 CBC AUTO W DIFF basophil% 0.6 % 0.2-1. 0 Not Available [facility] ([facility]) [address] [place], [address], 10/21/2024 14:27:12 10/21/19 25 10/21/2024 CBC AUTO W DIFF immature granulocytes % 1.0 % 0.0-0. 8 high Not Available [facility] ([facility]) [address] [place], [address], 10/21/2024 14:27:12 10/21/19 25 10/21/2024 CBC AUTO W DIFF nucleated red blood cells % 0.6 % Not Available [facility] ([facility]) [address] [place], [address], 10/21/2024 14:27:12 10/21/19 25 10/21/2024 CBC AUTO W DIFF neutrophil# 4.4 K/uL 2.2-4. 8 Not Available [facility] ([facility]) [address] [place], [address], 10/21/2024 14:27:12 10/21/19 25 10/21/2024 CBC AUTO W DIFF lymphocyte# 0.3 cell/ mcL 1.3-2. 9 low Not Available [facility] ([facility]) [address] [facility] [facility], [place], [address], 10/21/2024 14:27:12 10/21/19 25 10/21/2024 CBC AUTO W DIFF monocyte# 0.2 cell/ mcL 0.3-0. 8 low Not Available [facility] ([facility]) [address] [facility] [facility], [place], [address], 10/21/2024 14:27:12 10/21/19 25 10/21/2024 CBC AUTO W DIFF eosinophil# 0.0 cell/ mcL 0-0.2 Not Available [facility] ([facility]) [address] [facility] [facility], [place], [address], 10/21/2024 14:27:12 10/21/19 25 10/21/2024 CBC AUTO W DIFF basophil# 0.0 cell/ mcL 0.0-1. 0 Not Available [facility] ([facility]) [address] [facility] [facility], [place], [address], 10/21/2024 14:27:12 10/21/19 25 10/21/2024 CBC AUTO W DIFF immature gramulocytes # 0.05 K/uL Not Available [facility] ([facility]) [address] [facility] [facility], [place], [address], 10/21/2024 14:27:12 10/21/19 25 10/21/2024 CBC AUTO W DIFF nucleated red blood cells # 0.03 K/uL Not Available [facility] ([facility]) [address] [facility] [facility], [place], [address], 10/21/2024 14:27:12 10/21/19 25 10/21/2024 CBC AUTO W DIFF manual differential NO Not Available [facility] ([facility]) [address], [place], [address], 10/21/2024 14:27:12 10/21/19 25 10/21/2024 CBC AUTO W DIFF platelet estimate ADEQUA TE adequa te Not Available [facility] ([facility]) [address], [place], [address], 10/21/2024 14:27:12 10/21/19 25 10/21/2024 CBC AUTO W DIFF platelet morphology NORMAL normal Not Available [facility] ([facility]) [address] , [place], [address], 10/21/2024 14:27:12 10/21/19 25 10/21/2024 CBC AUTO W DIFF RBC morphology NORMAL normal Not Available [facility] ([facility]) [address] , [place], [address], 10/21/2024 14:27:12 10/21/19 25 10/21/2024 CBC AUTO W DIFF anisocytosis SLIGHT none seen Not Available [facility] ([facility]) [address] , [place], [address], 10/21/2024 14:27:12 10/21/19 25 10/21/2024 CBC AUTO W DIFF poikilocytos is SLIGHT none seen Not Available [facility] ([facility]) [address] [place], [address], 10/21/2024 14:27:12 12/22/19 25 12/21/2024 CBC AUTO W DIFF WBC 6.1 K/uL 4.0-10 .5 Not Available [facility] ([facility] [address] [place], [address], 12/21/2024 14:21:17 12/22/19 25 12/21/2024 CBC AUTO W DIFF RBC 3.6 M/mm3 4.7-6. 1 low Not Available [facility] ([facility]) [address] , [place], [address], 12/21/2024 14:21:17 12/22/19 25 12/21/2024 CBC AUTO W DIFF HGB 10.1 gm/dL 13.5-1 8.0 low Not Available [facility] ([facility]) [address] , [place], [address], 12/21/2024 14:21:17 12/22/19 25 12/21/2024 CBC AUTO W DIFF HCT 33.0 % 42.0-5 2.0 low Not Available [facility] ([facility]) [address] , [place], [address], 12/21/2024 14:21:17 12/22/19 25 12/21/2024 CBC AUTO W DIFF MCV 90.7 fL 78-100 Not Available [facility] ([facility]) [address] , [place], [address], 12/21/2024 14:21:17 12/22/19 25 12/21/2024 CBC AUTO W DIFF MCH 27.7 pg 27-31 Not Available [facility] ([facility]) [address] , [place], [address], 12/21/2024 14:21:17 12/22/19 25 12/21/2024 CBC AUTO W DIFF MCHC 30.6 g/dL 32-36 low Not Available [facility] ([facility]) [address] , [place], [address], 12/21/2024 14:21:17 12/22/19 25 12/21/2024 CBC AUTO W DIFF RDW 22.9 % 11.5-1 4.0 high Not Available [facility] ([facility]) [address], [place], [address], 12/21/2024 14:21:17 12/22/19 25 12/21/2024 CBC AUTO W DIFF platelet count 275 K/uL 150-45 0 Not Available [facility] ([facility]) [address] , [place], [address], 12/21/2024 14:21:17 12/22/19 25 12/21/2024 CBC AUTO W DIFF MPV 9.1 fL 6-9.5 Not Available [facility] ([facility]) [address] , [place], [address], 12/21/2024 14:21:17 12/22/19 25 12/21/2024 CBC AUTO W DIFF neutrophil% 80.2 % 43-65 high Not Available [facility] ([facility]) [address] , [place], [address], 12/21/2024 14:21:17 12/22/19 25 12/21/2024 CBC AUTO W DIFF lymphocyte% 8.4 % 20.5-4 5.5 low Not Available [facility] ([facility]) [address] , [place], [address], 12/21/2024 14:21:17 12/22/19 25 12/21/2024 CBC AUTO W DIFF monocyte% 9.4 % 5.5-11 .7 Not Available [facility] ([facility] [address] [place], [address], 12/21/2024 14:21:17 12/22/19 25 12/21/2024 CBC AUTO W DIFF eosinophil% 1.0 % 0.9-2. 9 Not Available [facility] ([facility] [address] [place], [address], 12/21/2024 14:21:17 12/22/19 25 12/21/2024 CBC AUTO W DIFF basophil% 0.5 % 0.2-1. 0 Not Available [facility] ([facility]) [address], [place], [address], 12/21/2024 14:21:17 12/22/19 25 12/21/2024 CBC AUTO W DIFF immature granulocytes % 0.5 % 0.0-0. 8 Not Available [facility] ([facility]) [address] [facility], [place], [address], 12/21/2024 14:21:17 12/22/19 25 12/21/2024 CBC AUTO W DIFF nucleated red blood cells % 0.0 % Not Available [facility] ([facility] [address] [facility] [facility], [place], [address], 12/21/2024 14:21:17 12/22/19 25 12/21/2024 CBC AUTO W DIFF neutrophil# 4.9 K/uL 2.2-4. 8 high Not Available [facility] ([facility] [address] [facility] [facility], [place], [address], 12/21/2024 14:21:17 12/22/19 25 12/21/2024 CBC AUTO W DIFF lymphocyte# 0.5 cell/ mcL 1.3-2. 9 low Not Available [facility] ([facility] [address] [place], [address], 12/21/2024 14:21:17 12/22/19 25 12/21/2024 CBC AUTO W DIFF monocyte# 0.6 cell/ mcL 0.3-0. 8 Not Available [facility] ([facility] [address] [facility] [facility], [place], [address], 12/21/2024 14:21:17 12/22/19 25 12/21/2024 CBC AUTO W DIFF eosinophil# 0.1 cell/ mcL 0-0.2 Not Available [facility] ([facility] [address], [place], [address], 12/21/2024 14:21:17 12/22/19 25 12/21/2024 CBC AUTO W DIFF basophil# 0.0 cell/ mcL 0.0-1. 0 Not Available [facility] ([facility] [address], [place], [address], 12/21/2024 14:21:17 12/22/19 25 12/21/2024 CBC AUTO W DIFF immature gramulocytes # 0.03 K/uL Not Available [facility] ([facility] [address], [place], [address], 12/21/2024 14:21:17 12/22/19 25 12/21/2024 CBC AUTO W DIFF nucleated red blood cells # 0.00 K/uL Not Available [facility] ([facility] [address], [place], [address], 12/21/2024 14:21:17 12/22/19 25 12/21/2024 CBC AUTO W DIFF manual differential NO Not Available [facility] ([facility] [address], [place], [address], 12/21/2024 14:21:17 12/22/19 25 12/21/2024 HEPAT IC FUNCT IONAL PANEL total protein 7.2 g/dL 6.4-8. 2 Not Available [facility] ([facility]) [address], [place], [address], 12/21/2024 14:51:30 12/22/19 25 12/21/2024 HEPAT IC FUNCT IONAL PANEL albumin 4.1 g/dL 3.4-5. 0 Not Available [facility] ([facility]) [address], [place], [address], 12/21/2024 14:51:30 12/22/19 25 12/21/2024 HEPAT IC FUNCT IONAL PANEL bilirubin direct 0.0 O.oo-0 .30 Not Available [facility] ([facility]) [address] , [place], [address], 12/21/2024 14:51:30 12/22/19 25 12/21/2024 HEPAT IC FUNCT IONAL PANEL bilirubin total 0.40 mg/dL 0.10-1 .00 Not Available [facility] ([facility]) [address], [place], [address], 12/21/2024 14:51:30 12/22/19 25 12/21/2024 HEPAT IC FUNCT IONAL PANEL bilirubin indirect 0.40 Not Available [facility] ([facility]) [address], [place], [address], 12/21/2024 14:51:30 12/22/19 25 12/21/2024 HEPAT IC FUNCT IONAL PANEL AST (SGOT) 32 U/L 0-37 Not Available [facility] ([facility]) [address], [place], [address], 12/21/2024 14:51:30 12/22/19 25 12/21/2024 HEPAT IC FUNCT IONAL PANEL ALT (SGPT) 50 U/L 0-65 Not Available [facility] ([facility]) [address], [place], [address], 12/21/2024 14:51:30 12/22/19 25 12/21/2024 HEPAT IC FUNCT IONAL PANEL alk phosphatase 122 U/L 46-116 high Not Available [facility] ([facility]) [address], [place], [address], 12/21/2024 14:51:30 Result Notes None recorded. Problems Name Problem SNOMED Code Status Onset Date Resolution Date Notes Provider Name and Address Organization Details Recorded Time Inactive tuberculosis 11300796 Active 2024 Comfort benavides, RUSH Torres LPNT Brian [place] [facility] [place] 5 11:31:55 Sleep apnea 69352711 Active 2021 Ben benavides, RUSH Torres LPNT Brian [place] [facility] [place] 2 13:02:29 Diabetes mellitus 36289279 Active 2021 RUSH Christopher LPNT Brian [place] [facility] [place] 2 13:02:36 Irregular heart beat 719347594 Active 2021 Ben benavides, RUSH Torres LPNT Brian [place] [facility] [place] 2 13:02:49 Hypertensive disorder 67646495 Active 2021 Ben benavides, RUSH Torres LPNT Brian [place] [facility] [place] 2 13:02:55 Problem Notes None recorded. Procedures Surgical History Date Name Laterality Status Provider Name and Address Organization Details Recorded Time 09/15/18 98 Cardiovascular Surgery completed Ben Torres [place] [facility] [place] 08/05/2022 13:01:39 09/15/18 98 Other completed Ben Torres [place] 08/05/2022 13:01:39 procedure on knee completed Ben Torres [place] 08/05/2022 13:05:30 Imaging Results None recorded. Procedure [...] 2024 active Not Available Not Available Not Ladan mtz methocarbam ol 750 mg tablet TAKE ONE [...] in Arterial blood by Pulse oximetry Systolic And Diastolic Provider Name and Address Organization Details Last Updated DateTime 5 187.96 cm 26.1 kg/m2 92152.2 5 g 98.2 [degF] 67 /min 92 % 92 % 94/59 mm[Hg] Preeti BEVERLY [facility] - [place] [facility] [place] 5 10:40:12 Date Recorded Body height Heart rate Oxygen saturation Oxygen saturation in Arterial blood by Pulse oximetry Heart rate Body temperature Body mass index (BMI) Body weight Systolic And Diastolic Provider Name and Address Organization Details Last Updated DateTime 5 187.96 cm 79 /min 94 % 94 % 79 /min 98 [degF] 25.5 kg/m2 13017.8 8 g 122/67 mm[Hg] Tammy Theodore [facility] & [place] 5 13:43:20 Date Recorded Body height Heart rate Oxygen saturation Oxygen saturation in Arterial blood by Pulse oximetry Body temperature Body mass index (BMI) Body weight Systolic And Diastolic Provider Name and Address Organization Details Last Updated DateTime 5 187.96 cm 58 /min 95 % 95 % 98.9 [degF] 25.3 kg/m2 45219.1 3 g 116/69 mm[Hg] Magnus BEVERLY [facility] & [place] 5 11:10:14 Date Recorded Body height Oxygen saturation Oxygen saturation in Arterial blood by Pulse oximetry Heart rate Systolic And Diastolic Provider Name and Address Organization Details Last Updated DateTime 4 187.96 cm 91 % 91 % 56 /min 133/74 mm[Hg] Preeti GuevarappardBrian Ranulfo [facility] & [place] 4 09:22:06 Date Recorded Body height Body mass index (BMI) Body weight Body temperature Heart rate Oxygen saturation Oxygen saturation in Arterial blood by Pulse oximetry Systolic And Diastolic Provider Name and Address Organization Details Last Updated DateTime 4 187.96 cm 25.3 kg/m2 28208.7 g 96.7 [degF] 66 /min 93 % 93 % 130/70 mm[Hg] Preeti [facility] & [place] 4 10:33:55 Social History Question Answer Notes LastModified by Organizat ion Details LastModified Time Tobacco Smoking Status Former Smoker Lindsaybharati Alexander benavides [facility] [place] 08/05/2022 13:01:35 Do You Have An Advance Directive? Yes [email or web address] Information not available 08/05/2022 Are You Blind Or Do You Have Difficulty Seeing? No [email or web address] Information not available 08/05/2022 What Was The Date Of Your Most Recent Tobacco Screening? 06/21/2024 [email or web address] Information not available 06/24/2024 Are You Passively Exposed To Smoke? No [email or web address] Information not available 08/05/2022 How Much Tobacco Do You Smoke? No [email or web address] Information not available 08/05/2022 How Many Years Have You Smoked Tobacco? 30 Years In The Past [email or web address] Information not available 08/05/2022 Sex: Male Functional Status Question Answer Note LastModified by Organizat ion Details LastModified Time Do you use any illicit or recreational drugs? No [email or web address] Information not available 08/05/2022 What is your level of alcohol consumption? None [email or web address] Information not available 08/05/2022 Do you or have you ever used smokeless tobacco? Never used smokeless tobacco [email or web address] Information not available 08/05/2022 What is your exercise level? Occasional [email or web address] Information not available 08/05/2022 Mental Status Question Answer Note LastModified by Organization D etails LastModified Time Do you feel stressed (tense, restless, nervous, or anxious, or unable to sleep at night)? [id number] [email or web address] Information not available 08/05/2022 Family History Relationship Description Onset Age of this Age Resolved Age Notes LastModified by Organization Details LastModified Time Mother Myocardial infarction dec Not available 08/05 13:03:49 Mother Kidney disease pt. added direct ly (06/21) [email or web address] Not available 06/21/2024 12:47:46 Father Alcoholism dec [email or web address] Not availabl e 03/22/2025 11:00:43 Brother Family history unknown [email or web address] Not available 2024 11:00:43 Sister Family history unknown [email or web address] Not available 2024 11:00:43 Sister Kidney disease pt. added direct ly (06/21) [email or web address] Not available 06/21/2024 12:47:46 Medical History Condition Response Ear or Hearing Problems Y Deep Vein Thrombosis Y Obstructive Sleep Apnea Y Diabetes Y Autoimmune disease Y High Cholesterol Y Hypertension Y Past Encounters Encounter ID Performer Location Encounter Start Date Encounter Closed Date Diagnosis/Indication Diagnosis SNOMED-CT Code Diagnosis ICD10 Code Diagnosis Note [id number] Sanket Schaeffer Jr, MD [facility] Urology [address] [place] [address] [place] [address] 08/05/2022 12:30:55 08/05/2022 13:26:38 Benign prostatic hyperplasia with outflow obstruction 554371584 N40.1 Patient with lower urinary tract symptoms due to BPH. He is doing well on the tamsulosin and is to continue. Erectile dysfunction 860 809269 F52.21 patient with history of erectile dysfunctio n. He states he does well with the sildenafil 100 mg p.r.n.. [id number] Sanket Schaeffer Jr, MD [facility] Urology [address] [place] [address] [place] [address] 02/06/2023 13:40:33 02/06/2023 14:19:48 Prostate specific antigen above reference range 368057947 R97.20 Patient with history of elevated PSA. [...] tract symptoms due to benign prostatic hypertrophy 8241651836 9101 N40.1 patient with history of BPH. He is voiding well on the tamsulosin and is to continue. Erectile dysfunction 860 319069 F52.21 patient with history of erectile dysfunctio n. He states he does well with the sildenafil 100 mg p.r.n.. [id number] Sanket Schaeffer Jr, MD [facility] Urology [place] [address] [place] [address] 08/13/2023 08:41:10 08/13/2023 09:26:44 Prostate specific antigen above reference range 056571100 R97.20 Patient with history of elevated PSA. His recent PSA 2 weeks ago Was 11.5. This is we will higher than his previous of 9.6. It has been as high as 10.1 in the past. We again discussed prostate biopsy versus monitoring and he wishes to continue monitoring . Lower urin matty tract symptoms due to benign prostatic hypertrophy 5167695423 9101 N40.1 patient with history of BPH. [...] direction at this time. Erectile dysfunction 860 276180 F52.21 patient with history of erectile dysfunctio n. He states he does well with the sildenafil 100 mg p.r.n.. We have discussed not taking the sildenafil within 4 hours of the Flomax. [id number] Sanket Schaeffer Jr, MD [facility] Urology [address] [address] 02/13/2024 09:03:41 02/13/2024 09:40:36 Prostate specific antigen above reference range 224494075 R97.20 Patient with history of elevated PSA. [...] tract symptoms due to benign prostatic hypertrophy 8186259595 9101 N40.1 patient with history of BPH. patient states some increased frequency and nocturia. patient has not improved in the past with increasing his tamsulosin 2 a day or with oxybutynin . He complains of decreased flow. We would discussed other options but they require surgical procedures as well. [id number] Sanket Schaeffer Jr, MD [facility] Urology [address] [address] 11/12/2023 09:13:53 11/12/2023 10:07:59 Lower urinary tract symptoms due to benign prostatic hypertrophy 6759421458 9101 N40.1 patient with history of BPH. [...] Prostate s pecific antigen above reference range 084118514 R97.20 Patient with history of elevated PSA. [...] PSA in 3 months. Erectile dysfunction 860 370625 F52.21 patient with history of erectile dysfunctio n. He states he does well with the sildenafil 100 mg p.r.n.. We have discussed not taking the sildenafil within 4 hours of the Flomax. 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 Patient is negative for any pulmonary symptoms. Chest xray normal. Patient is on suppressiv e medication s for PMR. Patient takes Warfarin due to his mechanical heart valve. Will start Isoniazid and Vitamin B6. Will see patient back in 1 month. Plan will be to complete a 9 month regimen. All questions answered. [id number] [facility] [facility] [address] [place] [address] 07/23/2024 09:14:15 07/23/2024 09:34:06 Inactive tuberculosis 63128559 Z22.7 History of being in the . [...] 1 month. High risk medication monitoring indicated 5545523061 4328018 Z76.89 Will check a CBC and hepatic function panel due to the director long term care use of Isoniazid. Will monitor weight regularly and check for adverse effects. [id number] [facility] [address] [facility] [address] [place] [address] 08/20/2024 10:25:17 08/20/2024 10:44:10 Inactive tuberculosis 00047522 Z22.7 History of being in the . [...] 1 month. High risk medication monitoring indicated 9681500566 3407982 Z76.89 Will check a CBC and hepatic function panel due to the director long term care use of Isoniazid. Will monitor weight regularly and check for adverse effects. [id number] Nery Carreon in [facility] Infectiou s Disease -[address] [facility] [address] [place] [address] 10/21/2024 10:32:10 10/21/2024 10:47:20 Inactive tuberculosis 18125648 Z22.7 History of being in the . [...] 2 months. High risk medication monitoring indicated 4937134609 6108314 Z76.89 Will check a CBC and hepatic function panel due to the director long term care use of Isoniazid. Will monitor weight regularly and check for adverse effects. [id number] [facility] [address] [facility] [address] [place] [address] 12/21/2024 13:36:37 12/21/2024 13:51:52 Inactive tuberculosis 11773657 Z22.7 History of being in the . [...] 3 months. High risk medication monitoring indicated 4994012817 1768951 Z76.89 Will check a CBC and hepatic function panel due to the skilled nursing use of Isoniazid. Will monitor weight regularly and check for adverse effects. [id number] Nery Carreon in, VIDEO EDITING INTERN [facility] Infectiou s Disease -[address] [place] [address] 03/22/2025 11:00:19 03/22/2025 11:17:03 Health Concerns Section Related Observation LastModified by Organization Detai ls LastModified Time None Recorded Concern Status LastModified by Organization Details LastModified Time None Recorded Advance Directives Directive Y: Payers Insurance Date Sequence Insurance Name Policy Number Policy Carroll Covered Member ID Carroll Member ID Guarantor Name 08/05/2022 1 *SELF PAY* Ri leonduyen Chi Lezaam 03/22/2025 2 [facility] [place] Lise [id number] Martin Lezama 03/19/2025 1 [place] Martin Chi Lise [id number] Martin Lezama Notes Date Note Type Note Provider Name and Address Organization Details Recorded Time 07/23/2024 text/html patient presents to clinic for [...] Denies any fevers. Nery Lee APRN [address], [place], [address], [facility] & [place] 07/23/2024 09:37:00 08/20/2024 text/html patient presents to [...] start radiation treatment. Nery Lee APRN [address], [place], [address], [facility] & [place] 08/20/2024 10:49:26 10/21/2024 text/html patient presents to [...] for prostate cancer. Nery Lee APRN [address], [place], [address] & [place] 10/21/2024 11:35:54 12/21/2024 text/html patient presents to [...] for prostate cancer. Nery Lee APRN [address], [place], [address] [place] 12/21/2024 13:51:11
--- OUTSIDE RECORDS SUMMARY | 2025-03-24 09:06 | XMS_ITS | Referral Summary ---
Author Organization [employer] ([place], [place], [place], [place]) Address [address] [place] [address] Care Team Providers Care Pet Training Instructor Name Role Phone Tristan Billings DO Primary Care Provider [phone] Allergies No known active allergies Medications glipiZIDE [...] any time in the past 12 [facility], were you homeless or living in a detention (including now)? No 08/14/2024 Utilities Answer Date [...] Do you speak a language other than [place] at [facility]? No 08/10/2024 Do you want help with [...] Advance Directives For more information, please contact: [phone] Documents on File Type Date Recorded Patient Remarketing Rep Expl anation Advance Directives and Living Will 08/10/2024 * Full Code (Latest Code Status on File) Date Activated Date Inactivated Comments 08/10/2024 2:42 PM 08/15/2024 4:37 PM Care Teams Pet Training Instructor Relationship Specialty Start Date End Date Tristan Billings DO PCP - General Internal Medicine 08/10/24
--- OUTSIDE RECORDS SUMMARY | 2025-03-24 09:06 | XMS_ITS | Clinical Summary ---
Author Organization [facility] Address [address] [place] [address] Care Team Providers Care Electrician Telephone Name Role Phone ManuelitoTristan Primary Care Provider [phone] Allergies Active Allergy Reactions Criticality Noted Date [...] Description 12/27/2024 1:15 PM EDT Office Visit [facility] [address] [place] [address] Justen Jaimes MD Malignant neoplasm of prostate (CMS/HCC) (Primary Dx) 12/27/2024 Travel 12/26/2024 Travel 12/23/2024 Orders Only [facility] [place] [address] [place] [address] Justen Jaimes MD from Last 3 Months [...] Description 06/27/2025 12:30 PM EDT Office Visit [facility] [address] [place] [address] 06/27/2025 1:30 PM EDT Office Visit [facility] [address] [place] [address] Justen Jaimes MD [address] [address] Health Maintenance Due Date Last Done Comments [facility]-Hepatitis C Screening 1945 [facility]-Medicare Annual Wellness (AWV) 1945 [facility]-/Child/Adol SDOH Screenings 1945 [facility]-Obesity Intervention 1953 [facility]- SDOH Screenings 1965 [facility]-Adult SDOH Screenings 1965 [facility]-Pneumococcal Vaccine: 50 + Years (1 of 2 - PCV) 1966 [facility]-Zoster Vaccines (1 of 2) 1966 [facility]-DTaP,Tdap,and Td Vaccine s (1 - Tdap) 07/25/2010 07/24/2010 [id number] Vaccine (3 - Moderna risk series) 12/20/2020 [...] on patient's age to complete this topic [place] [address] [facility] Care Teams Electrician Telephone Relationship Specialty Start Date End Date Tristan Billings DO [address] [place] [id number] [facility] - General 09/13/24
--- OUTSIDE RECORDS SUMMARY | 2025-03-24 09:06 | XMS_ITS | Data Portability ---
Author Organization [facility] MARY NicholsS SENECA CLOSED Address [address] [facility] [address] [place] [address] Assessment Encounter Date Assessment Date Assessment LastModified [...] Lab urinalysi s panel, auto [address] [facility], [address], [address], [place], [address], 02/28/2025 14:44:08 PSA, serum or plasma [address] [facility], [address], [address], [place], [address], 02/28/2025 14:44:08 urinalysi s panel, auto [address] [facility], [address], [address], [place], [address], 09/05/2024 22:40:08 Referral None recorded. Procedures None recorded. Surgeries None recorded. Imaging None recorded. Medication Orders levofloxa brittney [address] [facility], [address] [place] [address] [address], [place], [place], [id number], 07/26/2024 13:18:08 oxybutyni n chloride ER 5 mg tablet,ex tended release [address] [facility], [address] [place] [address] [address], [place], [id number], 07/26/2024 13:18:07 tamsulosi n 0.4 mg capsule 2023 024 [facility], [address] [facility], [place], [address], 07/25/2024 14:38:23 Patient TargetsNo targets recorded. Patient Instructions Encounter Date Encounter Id Patient Instructions Last Modified By Organization Details Last Modified Time 08/09/2024 [id number] learning about depression [email or web address] Not available 08/09/2024 21:12:50 Reason for Referral None Reported. Results Created Date Observation Date Name Description Value Unit Range Abnormal Flag Note LastModifiedBy Organization Detail LastModifiedTime 08/04/20 24 08/04/2024 PROTH ROMBI N TIME prothrombin time 11.5 secon ds 9.2-11 .0 high Not Available [facility] [address] [place], [address], 08/04/2024 08:45:13 08/04/2008/04/2024 PROTH ROMBI N TIME [...] NICAL PROST HETIC VALVE S Not Available [facility] [address] [place], [address], 08/04/2024 08:45:13 08/04/2008/04/2024 SURGI LAVERNE surgical SEE [...] rmed on tissu e from case [id number] 1. The case repor t, slide s, [...] 14:29 Page 1 of 1 Not Available [facility] [address] [place] [address], [address], 08/10/2024 13:53:39 09/03/20 24 09/03/2024 urina lysis panel , auto Unknown Analyte Clean Catch Not Available [facility] [address], [place], [address], 09/03/2024 12:05:04 09/03/20 24 09/03/2024 urina lysis panel , auto Unknown Analyte Yellow Not Available [facility] [address], [place], [address], 09/03/2024 12:05:04 09/03/20 24 09/03/2024 urina lysis panel , auto Unknown Analyte Clear Not Available [facility] [place] [address], [place], [address], 09/03/2024 12:05:04 09/03/20 24 09/03/2024 urina lysis panel , auto Unknown Analyte 1.015 Not Available [facility] [address], [place], [address], 09/03/2024 12:05:04 09/03/20 24 09/03/2024 urina lysis panel , auto Unknown Analyte 1.003- 1.035 Not Available [facility] [address], [place], [address], 09/03/2024 12:05:04 09/03/20 24 09/03/2024 urina lysis panel , auto Unknown Analyte 5.0 Not Available [facility] [address], [place], [address], 09/03/2024 12:05:04 09/03/20 24 09/03/2024 urina lysis panel , auto Unknown Analyte 5.0-8. 0 Not Available [facility] [address], [place], [address], 09/03/2024 12:05:04 09/03/20 24 09/03/2024 urina lysis panel , auto Unknown Analyte Negati ve Not Available [facility] [address], [place], [address], 09/03/2024 12:05:04 09/03/20 24 09/03/2024 urina lysis panel , auto Unknown Analyte Negati ve Not Available [facility] [address], [place], [address], 09/03/2024 12:05:04 09/03/20 24 09/03/2024 urina lysis panel , auto Unknown Analyte Negati ve Not Available [facility] [address], [place], [address], 09/03/2024 12:05:04 09/03/20 24 09/03/2024 urina lysis panel , auto Unknown Analyte Negati ve Not Available [facility] [address], [place], [address], 09/03/2024 12:05:04 09/03/20 24 09/03/2024 urina lysis panel , auto Unknown Analyte Negati ve Not Available [facility] [address], [place], [address], 09/03/2024 12:05:04 09/03/20 24 09/03/2024 urina lysis panel , auto Unknown Analyte Negati ve Not Available [facility] [address], [place], [address], 09/03/2024 12:05:04 09/03/20 24 09/03/2024 urina lysis panel , auto Unknown Analyte >1000 mg/dl Not Available [facility] [address], [place], [address], 09/03/2024 12:05:04 09/03/20 24 09/03/2024 urina lysis panel , auto Unknown Analyte Normal Not Available [facility] [address], [place], [address], 09/03/2024 12:05:04 09/03/20 24 09/03/2024 urina lysis panel , auto Unknown Analyte Negati ve Not Available [facility] [address], [place], [address], 09/03/2024 12:05:04 09/03/2009/03/2024 urina lysis panel , auto Unknown Analyte Negati ve Not Available [facility] [address], [place], [address], 09/03/2024 12:05:04 09/03/20 24 09/03/2024 urina lysis panel , auto Unknown Analyte Normal Not Available [facility] [address], [place], [address], 09/03/2024 12:05:04 09/03/2009/03/2024 urina lysis panel , auto Unknown Analyte Normal 1 mg/dl Not Available [facility] [address], [place], [address], 09/03/2024 12:05:04 09/03/20 24 09/03/2024 urina lysis panel , auto Unknown Analyte Negati ve Not Available [facility] [address], [place], [address], 09/03/2024 12:05:04 09/03/20 24 09/03/2024 urina lysis panel , auto Unknown Analyte Negati ve Not Available [facility] [address], [place], [address], 09/03/2024 12:05:04 09/03/20 24 09/03/2024 urina lysis panel , auto Unknown Analyte 250 Arslan/ul Not Available [facility] [address], [place], [address], 09/03/2024 12:05:04 09/03/20 24 09/03/2024 urina lysis panel , auto Unknown Analyte Negati ve Not Available [facility] [address], [place], [address], 09/03/2024 12:05:04 02/29/20 25 02/28/2025 urina lysis panel , auto Unknown Analyte Clean Catch Not Available [facility] [address], [place], [address], 02/28/2025 14:04:51 02/29/20 25 02/28/2025 urina lysis panel , auto Unknown Analyte Yellow Not Available [facility] [address], [place], [address], 02/28/2025 14:04:51 02/29/20 25 02/28/2025 urina lysis panel , auto Unknown Analyte Clear Not Available [facility] [address], [place], [address], 02/28/2025 14:04:51 02/29/20 25 02/28/2025 urina lysis panel , auto Unknown Analyte 1.020 Not Available [facility] [address], [place], [address], 02/28/2025 14:04:51 02/29/20 25 02/28/2025 urina lysis panel , auto Unknown Analyte 1.003 - 1.030 Not Available [facility] [address], [place], [address], 02/28/2025 14:04:51 02/29/20 25 02/28/2025 urina lysis panel , auto Unknown Analyte 5.0 Not Available [facility] [address], [place], [address], 02/28/2025 14:04:51 02/29/20 25 02/28/2025 urina lysis panel , auto Unknown Analyte 5.0 - 8.0 Not Available [facility] [address], [place], [address], 02/28/2025 14:04:51 02/29/20 25 02/28/2025 urina lysis panel , auto Unknown Analyte 75 Iveth/uL Not Available [facility] [address], [place], [address], 02/28/2025 14:04:51 02/29/20 25 02/28/2025 urina lysis panel , auto Unknown Analyte Negati ve Not Available [facility] [address], [place], [address], 02/28/2025 14:04:51 02/29/20 25 02/28/2025 urina lysis panel , auto Unknown Analyte Negati ve Not Available [facility] [address], [place], [address], 02/28/2025 14:04:51 02/29/20 25 02/28/2025 urina lysis panel , auto Unknown Analyte Negati ve Not Available [facility] [address], [place], [address], 02/28/2025 14:04:51 02/29/20 25 02/28/2025 urina lysis panel , auto Unknown Analyte Trace Not Available [facility] [address], [place], [address], 02/28/2025 14:04:51 02/29/20 25 02/28/2025 urina lysis panel , auto Unknown Analyte Negati ve Not Available [facility] [address], [place], [address], 02/28/2025 14:04:51 02/29/20 25 02/28/2025 urina lysis panel , auto Unknown Analyte >1000 mg/dL Not Available [facility] [address], [place], [address], 02/28/2025 14:04:51 02/29/20 25 02/28/2025 urina lysis panel , auto Unknown Analyte Normal Not Available [facility] [address], [place], [address], 02/28/2025 14:04:51 02/29/20 25 02/28/2025 urina lysis panel , auto Unknown Analyte Negati ve Not Available [facility] [address], [place], [address], 02/28/2025 14:04:51 02/29/20 25 02/28/2025 urina lysis panel , auto Unknown Analyte Negati ve Not Available [facility] [address], [place], [address], 02/28/2025 14:04:51 02/29/20 25 02/28/2025 urina lysis panel , auto Unknown Analyte Normal Not Available [facility] [address], [place], [address], 02/28/2025 14:04:51 02/29/20 25 02/28/2025 urina lysis panel , auto Unknown Analyte Normal Not Available [facility] [address], [place], [address], 02/28/2025 14:04:51 02/29/20 25 02/28/2025 urina lysis panel , auto Unknown Analyte 1 mg/dL Not Available [facility] [address], [place], [address], 02/28/2025 14:04:51 02/29/20 25 02/28/2025 urina lysis panel , auto Unknown Analyte Negati ve Not Available [facility] [address], [place], [address], 02/28/2025 14:04:51 02/29/20 25 02/28/2025 urina lysis panel , auto Unknown Analyte 50 Arslan/uL Not Available [facility] [address], [place], [address], 02/28/2025 14:04:51 02/29/20 25 02/28/2025 urina lysis panel , auto Unknown Analyte Negati ve Not Available [facility] [address], [place], [address], 02/28/2025 14:04:51 06/22/20 24 06/22/2024 MRI, pelvi s, w/wo contr ast [facility] [address] [facility] [place] [address] Patien t Name: TRISHA Mireles OVERMA N [...] (1 [place] [address]- 325-02 ) IV. 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 After [...] 350 (1 x 50 ml bottle of [facility] 0407-1 414-89 ) admini stered [...] thy. 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 SPACE- OAR HYDROG EL: No gel is [...] Escalona MD on 025 4:20 PM INTERFACE [facility] [address] [place] [address], [address], 09/27/2024 16:25:25 Result Notes Documentation Provider Name and Address Organization Details Recorded Time Pet-ct, Skull Base To Mid-thigh Scan : [address] [address] Patient Name: MARTIN LEZAMA Patient : 1945 [...] was GFR =50 6.2 mCi Ga-68 PSMA ([facility] [address]5601-339-23) was injected IV. After an uptake time of 76 minutes, vertex through midthigh PET imaging was performed. This was followed by a low dose attenuation correction/anatomic localization CT from vertex through the midthigh levels. Urinary tract was opacified with an injection of 50 mL Omnipaque 350 (1 x 50 ml bottle of [facility] 7589-7145-08) administered [address] scan. [...] Interpreted By: Tristan Escalona MD Not Available [facility] 09/01/2024 12:29:17 Mri, Pelvis, W/o Contrast : [place] [address] Patient Name: MARTIN LEZAMA Patient : 1945 [...] Time 02/29/20 Lupron Administration completed Harleen Porfirio [facility] 02/28/2025 14:50:38 09/03/20 24 Lupron Administration completed Sadia Ndiaye [facility] 09/03/2024 13:10:22 Vasectomy completed Sadia Ndiaye [facility] 05/19/2024 15:50:09 procedure on knee completed Sadia Senthil [facility] 05/19/2024 15:52:15 mechanical prosthetic aortic valve replacement completed Tammy Curtis [facility] 05/21/2024 09:02:43 Imaging Results [...] Updated DateTime 02/28/2025 187.96 cm 23.8 kg/m2 93168.59 g Harleen Monroy [facility] 02/28/2025 14:14:02 Date Recorded Body height Body mass index (BMI) Body weight Provider Name and Address Organization Details Last Updated DateTime 07/23/2024 187.96 cm 24.4 kg/m2 09291.55 g Tammy Curtis [facility] 07/23/2024 12:18:57 Date Recorded Body height Body mass index (BMI) Body weight Provider Name and Address Organization Details Last Updated DateTime 08/09/2024 187.96 cm 24.4 kg/m2 88726.55 g Grazyna Terrazas [facility] 08/09/2024 14:37:05 Date Recorded Body height Body mass index (BMI) Body weight Provider Name and Address Organization Details Last Updated DateTime 09/03/2024 187.96 cm 24.4 kg/m2 06344.55 g Sadia Ndiaye [facility] 09/03/2024 13:09:35 Social History Question Answer Notes LastModified by Organizat ion Details LastModified Time Tobacco Smoking Status Former Smoker cigarettes Sadia Ndiaye [facility] 05/19/2024 15:49:08 When Did You Quit Smoking? 18+yearssin taco perez 1995 [email or web address] Information not available 05/19/2024 What Was The Date Of Your Most Recent Tobacco Screening? 02/28/2025 [email or web address] Information not available 02/28/2025 What Is Your Relationship Status? [email or web address] Information not available 05/19/2024 How Much Tobacco Do You Smoke? No [email or web address] Information not available 05/19/2024 Has Tobacco Cessation Counseling Been Provided? No [email or web address] Information not available 05/19/2024 Sex: Male Functional Status Question Answer Note LastModified by Organizat ion Details LastModified Time Do you use any illicit or recreational drugs? No [email or web address] Information not available 05/19/2024 Do you or have you ever used any other forms of tobacco or nicotine? No Information not available 05/19/2024 What is your level of alcohol consumption? None [email or web address] Information not available 05/19/2024 Are you currently employed? No retired Information not available 05/19/2024 Mental Status None recorded. Family History Nothing Reported. Medical History Condition Response Sleep Apnea Y Past Encounters Encounter ID Performer Location Encounter Start Date Encounter Closed Date Diagnosis/Indication Diagnosis SNOMED-CT Code Diagnosis ICD10 Code Diagnosis Note [id number] CJ LAMB MD [facility] [address] [place] [address] 05/19/2024 13:25:43 05/21/2024 06:07:21 Prostate specific antigen above reference range 305167202 R97.20 Considerin g his medical history I [...] needle biopsy of the prostate Large prostate 385363663 N40.0 Continue tamsulosin [id number] CJ LAMB MD [facility] [address] [place] [id number] 07/23/2024 11:25:17 07/23/2024 16:41:36 Prostate specific antigen above reference range 434865438 R97.20 We will arrange for MRI directed transrecta l ultrasound and needle biopsy of the prostate under sedation. Benign pro static hyperplasia with outflow obstruction 141037598 N40.1 Increased frequency of urination 231545877 R35.0 Trial of oxybutynin chloride [id number] CJ LAMB MD SURGERY SCHEDULE [address] [place] [address] 08/04/2024 08:27:28 08/04/2024 08:27:53 [id number] CJ LAMB MD [facility] [address] [place] [address] 08/09/2024 14:02:05 08/10/2024 04:08:34 Narciso hematuria 975359573 R31.0 He is encouraged to drink copious fluids. We discussed that he may have issues with hematuria for prolonged period of time considerin g his chronic anticoagul ation therapy. Retention of urine 80256 4002 R33.9 Voiding trial today Malignant neoplasm of prostate 613123713 C61 We will refer to radiation oncology. Will arrange for total body bone scan [id number] ZORAIDA GARDNER MD [facility] [address] [place] [address] 08/17/2024 10:55:10 08/30/2024 12:23:43 [id number] CJ LAMB MD [facility] [address] [place] [address] 09/03/2024 11:13:19 09/03/2024 16:46:21 Malignant neoplasm of prostate [id number] C61 Follow-up 6 months with PSA [id number] ZORAIDA GARDNER MD [facility] [address] [place] [address] 09/17/2024 09:29:57 09/21/2024 10:50:56 [id number] CJ LAMB MD [facility] [address] [place] [address] 02/28/2025 13:16:41 02/28/2025 14:52:53 History of malignant neoplasm of prostate [id number] Z85.46 He received a 6-month Eligard injection [...] Carroll Member ID Guarantor Name 02/25/2025 1 [employer] (MEDICARE) Martin Lezama [id number] Martin Lezama 02/25/2025 2 FOR LIFE () Martin Lezama [id number] Martin Lezama Notes Date Note Type Note [...] prior to his biopsy. CJ LAMB MD [address] [place] [address], [phone], [facility] 07/25/2024 14:39:29 08/09/2024 text/html Patient is [...] has been to the emergency room at [facility] 3-4 different times for catheter irrigation. Currently [...] in the bladder on CT scan at [facility] over the weekend. He is here today [...] was 1.2 earlier today CJ LAMB MD [address] [place] [address] [place], [address], [facility] 08/09/2024 21:13:11 09/03/2024 text/html Patient is here to start LHRH antagonist therapy in anticipation of external beam radiation therapy for prostate cancer. We discussed potential side effects and expectations. He received a 6-month. Lupron injection. CJ LAMB MD [address] [place] [address] [place], [address], [facility] 09/05/2024 22:40:50 02/28/2025 text/html Patient is [...] months. He now seeing Dr. Pappas in [place] as his primary care. CJ LAMB MD [address] [facility] [place], [address], [facility] 02/28/2025 17:48:31
--- OUTSIDE RECORDS SUMMARY | 2025-03-24 09:06 | XMS_ITS | Data Portability ---
Author Organization [facility], [facility] [place] Address [address] [place] [address] Care Team Providers Care Clerical Car Checker Name Role Phone FRED MURILLO Primary Care Provider [phone] FADY FLOR Referring Provider ZORAIDA GARDNER Radiation [...] T, skull base to mid-t high scan [address] [address] Patien t Name: TRISHA PERSAUD N Patien [...] was GFR =50 6.2 mCi Ga-68 PSMA ([facility] [id number] ) was inject ed IV. After [...] 350 (1 x 50 ml bottle of [facility] [id number] ) admini stered 20 minute [...] thy. 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 and along [...] Escalona MD on 2023 12:24 PM rlavey [facility] [address] [facility], [place], [address], 09/01/2024 12:51:05 09/27/19 25 09/27/2024 MRI, pelvi s, w/o contr ast [address] [address] Patidc t Name: TRISHA Tsang Patidc olson [...] ain signif icance Interp reted By: Fred Escaloan MD Electr onical ly Signed By: Fred Escalona MD on 025 4:20 PM [email or web address] [facility] [address] [place], [address], 09/27/2024 19:31:11 Result Notes Documentation Provider Name and Address Organization Details Recorded Time Pet-ct, Skull Base To Mid-thigh Scan : [facility] [address] [place] [address] Patient Name: MARTIN LEZAMA Patient : 1945 [...] was GFR =50 6.2 mCi Ga-68 PSMA ([facility] 49191-883-06) was injected IV. After an uptake time of 76 minutes, vertex through midthigh PET imaging was performed. This was followed by a low dose attenuation correction/anatomic localization CT from vertex through the midthigh levels. Urinary tract was opacified with an injection of 50 mL Omnipaque 350 (1 x 50 ml bottle of [facility] [id number]) administered [address] scan. [...] MD IDA GARDNER MD [address] [facility] [place], [address], [facility] 09/01/2024 12:51:05 Mri, Pelvis, W/o Contrast : [facility] [address] [place] [address] Patient Name: MARTIN LEZAMA Patient : 1945 [...] IDA GARDNER MD [address], [place], [address], [facility] 09/27/2024 19:31:11 Procedures Surgical History Date Name Laterality Status Provider Name and Address Organization Details Recorded Time 01/03/20 25 Prostate marker placement with SpaceOAR completed ZORAIDA GARDNER MD [address], [place], [address], [facility] 09/20/2024 21:49:03 10/16/18 98 mechanical [facility]/17/2024 12:00:45 09/15/18 98 procedure on knee completed [facility] 08/17/2024 12:01:01 09/15/18 80 vasectomy completed [facility] 08/17/2024 12:01:12 Imaging Results [...] Last Updated DateTime 09/17/2024 187.96 [facility] 10:38:39 Date Recorded Body height Body mass index (BMI) Body weight Body temperature Heart rate Oxygen saturation Oxygen saturation in Arterial blood by Pulse oximetry Systolic And Diastolic Provider Name and Address Organization Details Last Updated DateTime 187.96 cm 24.9 kg/m2 56717.9 2 g 97.2 [degF] 66 /min 94 % 94 % 102/54 mm[Hg] Roselyn Rivera [facility] 11:31:12 Social History Question Answer Notes LastModified by Organizat ion Details LastModified Time Tobacco Smoking Status Former Smoker Roselyn Rivera [facility] 08/17/2024 11:34:36 What Is Your Level Of [...] Tuberculosis Y Kidney Failure N Cancer Y Cardiac Disease Y Radiation Therapy N Malabsorption N High Cholesterol N Previous Radiation Therapy? N Liver Disease N Dialysis N Hypertension Y Kidney Disease N Past Encounters Encounter ID Performer Location Encounter Start Date Encounter Closed Date Diagnosis/Indication Diagnosis SNOMED-CT Code Diagnosis ICD10 Code Diagnosis Note [id number] MD [facility] [address] [place] [address] 05/19/2024 13:25:43 05/21/2024 06:07:21 [id number] MD [facility] [address] [place] [address] 07/23/2024 11:25:17 07/23/2024 16:41:36 [id number] FADY LAMB MD SURGERY SCHEDULE [address] [place] [address] 08/04/2024 08:27:28 08/04/2024 08:27:53 [id number] FADY LAMB MD [facility] [address] [place] [address] 08/09/2024 14:02:05 08/10/2024 04:08:34 [id number] ZORAIDA GARDNER MD [facility] [place] [address] [place] [address] 08/17/2024 10:55:10 08/30/2024 12:23:43 Malignant neoplasm of prostate [id number] C61 [id number] FADY LAMB MD [facility] [address] [place] [address] 09/03/2024 11:13:19 09/03/2024 16:46:21 [id number] ZORAIDA GARDNER MD [facility] [place] [address] [place] [address] 09/17/2024 09:29:57 09/21/2024 10:50:56 Malignant neoplasm of prostate [id number] C61 [id number] [facility] [address] [place] [address] 02/28/2025 13:16:41 02/28/2025 14:52:53 Health Concerns Section Related Observation LastModified by Organization Detai ls LastModified Time None Recorded Concern Status LastModified by Organization Details LastModified Time None Recorded Advance Directives Directive None Recorded Payers Insurance Date Sequence Insurance Name Policy Number Policy Carroll Covered Member ID Carroll Member ID Guarantor Name 02/25/2025 1 [place] Martin Lezama [id number] Martin Lezama 02/25/2025 2 FOR LIFE () Martin Lezama [id number] Martin Lezama Notes Date Note Type Note [...] 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 Mr. 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 His DIVINA score is 25 out of 25 with the use of Viagra. He has regular bowel movements without melena, hematochezia, tenesmus, or frequent diarrhea. 1 benign polyp was resected at his most recent colonoscopy in 2021. He smoked 1 pack of cigarettes daily for 20 years but quit in 1997. ZORAIDA GARDNER MD [address], [place], [address], [facility] 08/29/2024 11:53:22
== END 2025-03-24 23:59 | disposition home or self-care (01) ==
LOC: RAD 09:02
PROVIDERS: PCP Family Medicine; Visit Provider Nurse Practitioner Family
DX: M85.852 Other specified disorders of bone density and structure, left thigh (principal); M85.851 Other specified disorders of bone density and structure, right thigh; M85.88 Other specified disorders of bone density and structure, other site; M81.0 Age-related osteoporosis without current pathological fracture; S32.010A Wedge compression fracture of first lumbar vertebra, initial encounter for closed fracture
CPT/HCPCS: 77080

== ENCOUNTER 2025-03-29 11:37 | Day surgery (SDC) | payer MEDICARE, OTHER, SELFPAY ==
[2025-03-29 12:04] LABS: INR 0.98 (0.9-1.1); Prothrombin Time 10.9 seconds (10.1-12.5)
[2025-03-29 14:36] VITALS: BP 141/77; PULSE 76; RESP 18; O2SAT 96; BMI 25.0
[2025-03-29] MEDS: DEXAMETHASONE 10MG/ML 1ML VIAL 10 MG (15:04)
[2025-03-29 15:05] VITALS: BP 138/70; PULSE 77; RESP 18; O2SAT 96
[2025-03-29 15:06] VITALS: BP 138/70; PULSE 77; RESP 18; O2SAT 96
[2025-03-29] MEDS: IOPAMIDOL-200 (41%);10ML VIAL 10 ML IV (15:07)
--- NOTE | 2025-03-29 15:08 | EXP.PAIN.PRO ---
Procedure Date: 03/29/25 Time: 15:00 Anesthesiologist:: Jarrod Riojas CRNA Complications:: None Pre-procedure Diagnosis:: Degenerative disc lumbar spine. Lumbar spondylosis. Lumbar radiculopathy. Lumbar facet arthropathy. Post-procedure Diagnosis:: Same. Indications for Procedure:: Patient is a pleasant 79-year-old male who comes our clinic today for T12-L1 epidural steroid injection. Patient reports lumbar back pain radiates into the low thoracic area. Patient is having some lumbar radicular symptoms. He rates his pain 8/10. Procedure Details:: Procedure: Lumbar epidural steroid injection under fluoroscopy Informed consent was obtained and the risks and benefits of the procedure were explained to the patient. The patient was taken to the procedure room and noninvasive monitors placed, including noninvasive blood pressure cuff and pulse oximeter. The back was viewed using C-arm Fluoroscopy and prepped using Chloraprep as a cleansing solution and the T12-L1 interspace was palpated. Skin and subcutaneous tissues were anesthetized using lidocaine 1.5% and a 25-gauge needle. After this, an 18-gauge Touhy epidural needle was placed into the T12-L1 interspace and advanced using fluoroscopic guidance and loss of resistance to air until the epidural space was encountered. After confirmation of needle placement in the epidural space, with dye, a solution containing normal saline, 3 mL and dexamethasone 10 mg were incrementally injected into the lumbar epidural space. The patient tolerated the procedure well with no complications. The patient was observed in the Pain Clinic and then discharged home neurologically intact. Plan and Disposition:: Patient was discharged without incident.
[2025-03-29 15:11] VITALS: BP 135/67; PULSE 77; RESP 19; O2SAT 97
== END 2025-03-29 15:11 | disposition home or self-care (01) ==
PROVIDERS: Nurse Practitioner Family; PCP Family Medicine; Visit Provider Nurse Anesthetist, Certified Registered
DX: M51.16 Intervertebral disc disorders with radiculopathy, lumbar region (principal); M47.26 Other spondylosis with radiculopathy, lumbar region; E78.5 Hyperlipidemia, unspecified; I10 Essential (primary) hypertension; Z85.46 Personal history of malignant neoplasm of prostate; M06.9 Rheumatoid arthritis, unspecified; Z79.01 Long term (current) use of anticoagulants; Z79.52 Long term (current) use of systemic steroids; Z79.84 Long term (current) use of oral hypoglycemic drugs; Z79.899 Other long term (current) drug therapy
CPT/HCPCS: 64479; 36415; 85610; J1100; Q9966

== ENCOUNTER 2025-03-31 11:26 | Outpatient (POV) | payer MEDICARE, OTHER, SELFPAY ==
--- OUTSIDE RECORDS SUMMARY | 2025-03-31 11:32 | XMS_ITS | Data Portability ---
Author Organization [facility] ADMIN Address [address] [place] [id number] Care Team Providers Care Back Office Medical Assistant Name Role Phone MAXIMILIAN TORRES Primary Care Provider [phone] AURELIA DEL CASTILLO Car Trimmer [phone] FADY LAMB Urologist EMERY PIEDRA Disabilities Services Officer GAYLA SANCHEZ Primary Care Provider [phone] Assessment No assessment recorded. Plan of Treatment Reminders Order Date Submit Date Provider Last Modified By Organization Details Last Modified Time Details Appointments None recorded. Lab CBC w/ auto diff 2024 025 [facility], [address] [facility], [place], [address], 5 14:21:17 hepatic function panel, serum 2024 025 [email or web address] [facility], [address] [place], [address], 5 19:55:37 CBC w/ auto diff 2024 025 [facility], [address] [facility], [place], [address], 5 14:27:12 hepatic function panel, serum 2024 025 [email or web address] [id number] [facility], [address] [facility], [place], [address], 5 13:17:52 CBC w/ auto diff 2023 [facility], [address] , [place], [address], 4 11:59:13 hepatic function panel, serum 2023 [facility], [address] , [place], [address], 4 11:55:46 CBC w/ auto diff 2023 [facility], [address] , [place], [address], 4 10:11:21 hepatic function panel, serum 2023 [facility], [address] , [place], [address], 10:49:19 Referral None recorded. Procedures None recorded. Surgeries None recorded. Imaging None recorded. Medication Orders isoniazid 300 mg tablet 2023 [place] [facility], [facility] [place], [address], 10:48:31 Patient TargetsNo targets recorded. Patient InstructionsNo instructions recorded. Reason for Referral None Reported. Results Created Date Observation Date Name Description Value Unit Range Abnormal Flag Note LastModifiedBy Organization Detail LastModifiedTime 07/23/2007/23/2024 CBC AUTO W DIFF WBC 11.5 K/uL 4.0-10 .5 high Not Available [facility] ([facility]) [address] , [place], [address], 07/23/2024 10:11:21 07/23/20 24 07/23/2024 CBC AUTO W DIFF RBC 3.4 M/mm3 4.7-6. 1 low Not Available [facility] ([facility]) [address], [place], [address], 07/23/2024 10:11:21 07/23/20 24 07/23/2024 CBC AUTO W DIFF HGB 11.0 gm/dL 13.5-1 8.0 low Not Available [facility] ([facility]) [address], [place], [address], 07/23/2024 10:11:21 07/23/20 24 07/23/2024 CBC AUTO W DIFF HCT 34.7 % 42.0-5 2.0 low Not Available [facility] ([facility]) [address], [place], [address], 07/23/2024 10:11:21 07/23/20 24 07/23/2024 CBC AUTO W DIFF MCV 100.9 fL 78-100 high Not Available [facility] ([facility]) [address], [place], [address], 07/23/2024 10:11:21 07/23/20 24 07/23/2024 CBC AUTO W DIFF MCH 32.0 pg 27-31 high Not Available [facility] ([facility]) [address], [place], [address], 07/23/2024 10:11:21 07/23/20 24 07/23/2024 CBC AUTO W DIFF MCHC 31.7 g/dL 32-36 low Not Available [facility] ([facility]) [address] , [place], [address], 07/23/2024 10:11:21 07/23/20 24 07/23/2024 CBC AUTO W DIFF RDW 16.3 % 11.5-1 4.0 high Not Available [facility] ([facility]) [address] , [place], [address], 07/23/2024 10:11:21 07/23/20 24 07/23/2024 CBC AUTO W DIFF platelet count 310 K/uL 150-45 0 Not Available [facility] ([facility]) [address] , [place], [address], 07/23/2024 10:11:21 07/23/20 24 07/23/2024 CBC AUTO W DIFF MPV 9.7 fL 6-9.5 high Not Available [facility] ([facility]) [address] , [place], [address], 07/23/2024 10:11:21 07/23/20 24 07/23/2024 CBC AUTO W DIFF neutrophil% 80.6 % 43-65 high Not Available [facility] ([facility]) [address], [place], [address], 07/23/2024 10:11:21 07/23/20 24 07/23/2024 CBC AUTO W DIFF lymphocyte% 10.4 % 20.5-4 5.5 low Not Available [facility] ([facility]) [address], [place], [address], 07/23/2024 10:11:21 07/23/20 24 07/23/2024 CBC AUTO W DIFF monocyte% 6.9 % 5.5-11 .7 Not Available [facility] ([facility]) [address] [place], [address], 07/23/2024 10:11:21 07/23/20 24 07/23/2024 CBC AUTO W DIFF eosinophil% 1.0 % 0.9-2. 9 Not Available [facility] ([facility]) [address] [place], [address], 07/23/2024 10:11:21 07/23/20 24 07/23/2024 CBC AUTO W DIFF basophil% 0.4 % 0.2-1. 0 Not Available [facility] ([facility]) [address] [place], [address], 07/23/2024 10:11:21 07/23/20 24 07/23/2024 CBC AUTO W DIFF immature granulocytes % 0.7 % 0.0-0. 8 Not Available [facility] ([facility]) [address], [place], [address], 07/23/2024 10:11:21 07/23/20 24 07/23/2024 CBC AUTO W DIFF nucleated red blood cells % 0.3 % Not Available [facility] ([facility]) [address] [facility], [place], [address], 07/23/2024 10:11:21 07/23/20 24 07/23/2024 CBC AUTO W DIFF neutrophil# 9.3 K/uL 2.2-4. 8 high Not Available [facility] ([facility]) [address] [facility], [place], [address], 07/23/2024 10:11:21 07/23/20 24 07/23/2024 CBC AUTO W DIFF lymphocyte# 1.2 cell/ mcL 1.3-2. 9 low Not Available [facility] ([facility]) [address], [place], [address], 07/23/2024 10:11:21 07/23/20 24 07/23/2024 CBC AUTO W DIFF monocyte# 0.8 cell/ mcL 0.3-0. 8 Not Available [facility] ([facility]) [address], [place], [address], 07/23/2024 10:11:21 07/23/20 24 07/23/2024 CBC AUTO W DIFF eosinophil# 0.1 cell/ mcL 0-0.2 Not Available [facility] ([facility]) [address] [place], [address], 07/23/2024 10:11:21 07/23/20 24 07/23/2024 CBC AUTO W DIFF basophil# 0.1 cell/ mcL 0.0-1. 0 Not Available [facility] ([facility]) [address] , [place], [address], 07/23/2024 10:11:21 07/23/20 24 07/23/2024 CBC AUTO W DIFF immature gramulocytes # 0.08 K/uL Not Available [facility] ([facility]) [address] , [place], [address], 07/23/2024 10:11:21 07/23/20 24 07/23/2024 CBC AUTO W DIFF nucleated red blood cells # 0.03 K/uL Not Available [facility] ([facility]) [address] , [place], [address], 07/23/2024 10:11:21 07/23/20 24 07/23/2024 CBC AUTO W DIFF manual differential NO Not Available [facility] ([facility]) [address] , [place], [address], 07/23/2024 10:11:21 07/23/20 24 07/23/2024 HEPAT IC FUNCT IONAL PANEL total protein 7.3 g/dL 6.4-8. 2 Not Available [facility] ([facility]) [address] , [place], [address], 07/23/2024 10:22:19 07/23/20 24 07/23/2024 HEPAT IC FUNCT IONAL PANEL albumin 3.6 g/dL 3.4-5. 0 Not Available [facility] ([facility]) [address] , [place], [address], 07/23/2024 10:22:19 07/23/20 24 07/23/2024 HEPAT IC FUNCT IONAL PANEL bilirubin direct 0.1 O.oo-0 .30 Not Available [facility] ([facility]) [address], [place], [address], 07/23/2024 10:22:19 07/23/20 24 07/23/2024 HEPAT IC FUNCT IONAL PANEL bilirubin total 0.40 mg/dL 0.10-1 .00 Not Available [facility] ([facility]) [address] , [place], [address], 07/23/2024 10:22:19 07/23/20 24 07/23/2024 HEPAT IC FUNCT IONAL PANEL bilirubin indirect 0.30 Not Available [facility] ([facility]) [address] , [place], [address], 07/23/2024 10:22:19 07/23/20 24 07/23/2024 HEPAT IC FUNCT IONAL PANEL AST (SGOT) 17 U/L 0-37 Not Available [facility] ([facility]) [address] , [place], [address], 07/23/2024 10:22:19 07/23/20 24 07/23/2024 HEPAT IC FUNCT IONAL PANEL ALT (SGPT) 45 U/L 0-65 Not Available [facility] ([facility]) [address] , [place], [address], 07/23/2024 10:22:19 07/23/20 24 07/23/2024 HEPAT IC FUNCT IONAL PANEL alk phosphatase 49 U/L 46-116 Not Available [facility] ([facility]) [address] , [place], [address], 07/23/2024 10:22:19 08/20/20 24 08/20/2024 HEPAT IC FUNCT IONAL PANEL total protein 7.4 g/dL 6.4-8. 2 Not Available [facility] ([facility]) [address], [place], [address], 08/20/2024 11:54:21 08/20/20 24 08/20/2024 HEPAT IC FUNCT IONAL PANEL albumin 4.1 g/dL 3.4-5. 0 Not Available [facility] ([facility]) [address] , [place], [address], 08/20/2024 11:54:21 08/20/20 24 08/20/2024 HEPAT IC FUNCT IONAL PANEL bilirubin direct 0.1 O.oo-0 .30 Not Available [facility] ([facility]) [address] , [place], [address], 08/20/2024 11:54:21 08/20/20 24 08/20/2024 HEPAT IC FUNCT IONAL PANEL bilirubin total 0.50 mg/dL 0.10-1 .00 Not Available [facility] ([facility]) [address] , [place], [address], 08/20/2024 11:54:21 08/20/20 24 08/20/2024 HEPAT IC FUNCT IONAL PANEL bilirubin indirect 0.40 Not Available [facility] ([facility]) [address] , [place], [address], 08/20/2024 11:54:21 08/20/20 24 08/20/2024 HEPAT IC FUNCT IONAL PANEL AST (SGOT) 20 U/L 0-37 Not Available [facility] ([facility]) [address] , [place], [address], 08/20/2024 11:54:21 08/20/20 24 08/20/2024 HEPAT IC FUNCT IONAL PANEL ALT (SGPT) 64 U/L 0-65 Not Available [facility] ([facility]) [address] , [place], [address], 08/20/2024 11:54:21 08/20/20 24 08/20/2024 HEPAT IC FUNCT IONAL PANEL alk phosphatase 53 U/L 46-116 Not Available [facility] ([facility]) [address], [place], [address], 08/20/2024 11:54:21 10/21/19 25 10/21/2024 HEPAT IC FUNCT IONAL PANEL total protein 6.9 g/dL 6.4-8. 2 Not Available [facility] ([facility]) [address], [place], [address], 10/21/2024 11:57:13 10/21/19 25 10/21/2024 HEPAT IC FUNCT IONAL PANEL albumin 3.6 g/dL 3.4-5. 0 Not Available [facility] ([facility]) [address], [place], [address], 10/21/2024 11:57:13 10/21/19 25 10/21/2024 HEPAT IC FUNCT IONAL PANEL bilirubin direct 0.2 O.oo-0 .30 Not Available [facility] ([facility]) [address], [place], [address], 10/21/2024 11:57:13 10/21/19 25 10/21/2024 HEPAT IC FUNCT IONAL PANEL bilirubin total 0.50 mg/dL 0.10-1 .00 Not Available [facility] ([facility]) [address], [place], [address], 10/21/2024 11:57:13 10/21/19 25 10/21/2024 HEPAT IC FUNCT IONAL PANEL bilirubin indirect 0.30 Not Available [facility] ([facility]) [address], [place], [address], 10/21/2024 11:57:13 10/21/19 25 10/21/2024 HEPAT IC FUNCT IONAL PANEL AST (SGOT) 23 U/L 0-37 Not Available [facility] ([facility]) [address], [place], [address], 10/21/2024 11:57:13 10/21/19 25 10/21/2024 HEPAT IC FUNCT IONAL PANEL ALT (SGPT) 59 U/L 0-65 Not Available [facility] ([facility]) [address] , [place], [address], 10/21/2024 11:57:13 10/21/19 25 10/21/2024 HEPAT IC FUNCT IONAL PANEL alk phosphatase 55 U/L 46-116 Not Available [facility] ([facility]) [address] , [place], [address], 10/21/2024 11:57:13 10/21/19 25 10/21/2024 CBC AUTO W DIFF WBC 5.0 K/uL 4.0-10 .5 Not Available [facility] ([facility]) [address], [place], [address], 10/21/2024 14:27:12 10/21/19 25 10/21/2024 CBC AUTO W DIFF RBC 3.6 M/mm3 4.7-6. 1 low Not Available [facility] ([facility]) [address], [place], [address], 10/21/2024 14:27:12 10/21/19 25 10/21/2024 CBC AUTO W DIFF HGB 9.5 gm/dL 13.5-1 8.0 low Not Available [facility] ([facility]) [address], [place], [address], 10/21/2024 14:27:12 10/21/19 25 10/21/2024 CBC AUTO W DIFF HCT 32.8 % 42.0-5 2.0 low Not Available [facility] ([facility]) [address], [place], [address], 10/21/2024 14:27:12 10/21/19 25 10/21/2024 CBC AUTO W DIFF MCV 90.1 fL 78-100 Not Available [facility] ([facility]) [address], [place], [address], 10/21/2024 14:27:12 10/21/19 25 10/21/2024 CBC AUTO W DIFF MCH 26.1 pg 27-31 low Not Available [facility] ([facility]) [address] , [place], [address], 10/21/2024 14:27:12 10/21/19 25 10/21/2024 CBC AUTO W DIFF MCHC 29.0 g/dL 32-36 low Not Available [facility] ([facility]) [address] , [place], [address], 10/21/2024 14:27:12 10/21/19 25 10/21/2024 CBC AUTO W DIFF RDW 19.9 % 11.5-1 4.0 high Not Available [facility] ([facility]) [address] , [place], [address], 10/21/2024 14:27:12 10/21/19 25 10/21/2024 CBC AUTO W DIFF platelet count 237 K/uL 150-45 0 Not Available [facility] ([facility]) [address] , [place], [address], 10/21/2024 14:27:12 10/21/19 25 10/21/2024 CBC AUTO W DIFF MPV 10.1 fL 6-9.5 high Not Available [facility] ([facility]) [address] , [place], [address], 10/21/2024 14:27:12 10/21/19 25 10/21/2024 CBC AUTO W DIFF neutrophil% 87.2 % 43-65 high Not Available [facility] ([facility]) [address] , [place], [address], 10/21/2024 14:27:12 10/21/19 25 10/21/2024 CBC AUTO W DIFF lymphocyte% 6.4 % 20.5-4 5.5 low Not Available [facility] ([facility]) [address] [place], [address], 10/21/2024 14:27:12 10/21/19 25 10/21/2024 CBC AUTO W DIFF monocyte% 4.6 % 5.5-11 .7 low Not Available [facility] ([facility]) [address] [place], [address], 10/21/2024 14:27:12 10/21/19 25 10/21/2024 CBC AUTO W DIFF eosinophil% 0.2 % 0.9-2. 9 low Not Available [facility] ([facility]) [address] [place], [address], 10/21/2024 14:27:12 10/21/19 25 10/21/2024 CBC AUTO W DIFF basophil% 0.6 % 0.2-1. 0 Not Available [facility] ([facility]) [address] [place], [address], 10/21/2024 14:27:12 10/21/19 25 10/21/2024 CBC AUTO W DIFF immature granulocytes % 1.0 % 0.0-0. 8 high Not Available [facility] ([facility]) [address] [place], [address], 10/21/2024 14:27:12 10/21/19 25 10/21/2024 CBC AUTO W DIFF nucleated red blood cells % 0.6 % Not Available [facility] ([facility]) [address] [place], [address], 10/21/2024 14:27:12 10/21/19 25 10/21/2024 CBC AUTO W DIFF neutrophil# 4.4 K/uL 2.2-4. 8 Not Available [facility] ([facility]) [address] [place], [address], 10/21/2024 14:27:12 10/21/19 25 10/21/2024 CBC AUTO W DIFF lymphocyte# 0.3 cell/ mcL 1.3-2. 9 low Not Available [facility] ([facility]) [address] [facility], [place], [address], 10/21/2024 14:27:12 10/21/19 25 10/21/2024 CBC AUTO W DIFF monocyte# 0.2 cell/ mcL 0.3-0. 8 low Not Available [facility] ([facility]) [address] [facility], [place], [address], 10/21/2024 14:27:12 10/21/19 25 10/21/2024 CBC AUTO W DIFF eosinophil# 0.0 cell/ mcL 0-0.2 Not Available [facility] ([facility]) [address] [facility], [place], [address], 10/21/2024 14:27:12 10/21/19 25 10/21/2024 CBC AUTO W DIFF basophil# 0.0 cell/ mcL 0.0-1. 0 Not Available [facility] ([facility]) [address] [facility], [place], [address], 10/21/2024 14:27:12 10/21/19 25 10/21/2024 CBC AUTO W DIFF immature gramulocytes # 0.05 K/uL Not Available [facility] ([facility]) [address] [facility], [place], [address], 10/21/2024 14:27:12 10/21/19 25 10/21/2024 CBC AUTO W DIFF nucleated red blood cells # 0.03 K/uL Not Available [facility] ([facility]) [address] [facility], [place], [address], 10/21/2024 14:27:12 10/21/19 25 10/21/2024 CBC AUTO W DIFF manual differential NO Not Available [facility] ([facility]) [address], [place], [address], 10/21/2024 14:27:12 10/21/19 25 10/21/2024 CBC AUTO W DIFF platelet estimate ADEQUA TE adequa te Not Available [facility] ([facility]) [address], [place], [address], 10/21/2024 14:27:12 10/21/19 25 10/21/2024 CBC AUTO W DIFF platelet morphology NORMAL normal Not Available [facility] ([facility]) [address] , [place], [address], 10/21/2024 14:27:12 10/21/19 25 10/21/2024 CBC AUTO W DIFF RBC morphology NORMAL normal Not Available [facility] ([facility]) [address] , [place], [address], 10/21/2024 14:27:12 10/21/19 25 10/21/2024 CBC AUTO W DIFF anisocytosis SLIGHT none seen Not Available [facility] ([facility]) [address] , [place], [address], 10/21/2024 14:27:12 10/21/19 25 10/21/2024 CBC AUTO W DIFF poikilocytos is SLIGHT none seen Not Available [facility] ([facility]) [address] [place], [address], 10/21/2024 14:27:12 12/22/19 25 12/21/2024 CBC AUTO W DIFF WBC 6.1 K/uL 4.0-10 .5 Not Available [facility] ([facility]) [address] [place], [address], 12/21/2024 14:21:17 12/22/19 25 12/21/2024 CBC AUTO W DIFF RBC 3.6 M/mm3 4.7-6. 1 low Not Available [facility] ([facility]) [address] , [place], [address], 12/21/2024 14:21:17 12/22/19 25 12/21/2024 CBC AUTO W DIFF HGB 10.1 gm/dL 13.5-1 8.0 low Not Available [facility] ([facility]) [address] , [place], [address], 12/21/2024 14:21:17 12/22/19 25 12/21/2024 CBC AUTO W DIFF HCT 33.0 % 42.0-5 2.0 low Not Available [facility] ([facility]) [address] , [place], [address], 12/21/2024 14:21:17 12/22/19 25 12/21/2024 CBC AUTO W DIFF MCV 90.7 fL 78-100 Not Available [facility] ([facility]) [address] , [place], [address], 12/21/2024 14:21:17 12/22/19 25 12/21/2024 CBC AUTO W DIFF MCH 27.7 pg 27-31 Not Available [facility] ([facility]) [address] , [place], [address], 12/21/2024 14:21:17 12/22/19 25 12/21/2024 CBC AUTO W DIFF MCHC 30.6 g/dL 32-36 low Not Available [facility] ([facility]) [address] , [place], [address], 12/21/2024 14:21:17 12/22/19 25 12/21/2024 CBC AUTO W DIFF RDW 22.9 % 11.5-1 4.0 high Not Available [facility] ([facility]) [address], [place], [address], 12/21/2024 14:21:17 12/22/19 25 12/21/2024 CBC AUTO W DIFF platelet count 275 K/uL 150-45 0 Not Available [facility] ([facility]) [address] , [place], [address], 12/21/2024 14:21:17 12/22/19 25 12/21/2024 CBC AUTO W DIFF MPV 9.1 fL 6-9.5 Not Available [facility] ([facility]) [address] , [place], [address], 12/21/2024 14:21:17 12/22/19 25 12/21/2024 CBC AUTO W DIFF neutrophil% 80.2 % 43-65 high Not Available [facility] ([facility]) [address] , [place], [address], 12/21/2024 14:21:17 12/22/19 25 12/21/2024 CBC AUTO W DIFF lymphocyte% 8.4 % 20.5-4 5.5 low Not Available [facility] ([facility]) [address] , [place], [address], 12/21/2024 14:21:17 12/22/19 25 12/21/2024 CBC AUTO W DIFF monocyte% 9.4 % 5.5-11 .7 Not Available [facility] ([facility]) [address] [place], [address], 12/21/2024 14:21:17 12/22/19 25 12/21/2024 CBC AUTO W DIFF eosinophil% 1.0 % 0.9-2. 9 Not Available [facility] ([facility]) [address] [place], [address], 12/21/2024 14:21:17 12/22/19 25 12/21/2024 CBC AUTO W DIFF basophil% 0.5 % 0.2-1. 0 Not Available [facility] ([facility]) [address], [place], [address], 12/21/2024 14:21:17 12/22/19 25 12/21/2024 CBC AUTO W DIFF immature granulocytes % 0.5 % 0.0-0. 8 Not Available [facility] ([facility]) [address] [facility], [place], [address], 12/21/2024 14:21:17 12/22/19 25 12/21/2024 CBC AUTO W DIFF nucleated red blood cells % 0.0 % Not Available [facility] ([facility]) [address] [facility], [place], [address], 12/21/2024 14:21:17 12/22/19 25 12/21/2024 CBC AUTO W DIFF neutrophil# 4.9 K/uL 2.2-4. 8 high Not Available [facility] ([facility]) [address] [facility], [place], [address], 12/21/2024 14:21:17 12/22/19 25 12/21/2024 CBC AUTO W DIFF lymphocyte# 0.5 cell/ mcL 1.3-2. 9 low Not Available [facility] ([facility]) [address] [place], [address], 12/21/2024 14:21:17 12/22/19 25 12/21/2024 CBC AUTO W DIFF monocyte# 0.6 cell/ mcL 0.3-0. 8 Not Available [facility] ([facility]) [address] [facility], [place], [address], 12/21/2024 14:21:17 12/22/19 25 12/21/2024 CBC AUTO W DIFF eosinophil# 0.1 cell/ mcL 0-0.2 Not Available [facility] ([facility]) [address], [place], [address], 12/21/2024 14:21:17 12/22/19 25 12/21/2024 CBC AUTO W DIFF basophil# 0.0 cell/ mcL 0.0-1. 0 Not Available [facility] ([facility]) [address], [place], [address], 12/21/2024 14:21:17 12/22/19 25 12/21/2024 CBC AUTO W DIFF immature gramulocytes # 0.03 K/uL Not Available [facility] ([facility]) [address], [place], [address], 12/21/2024 14:21:17 12/22/19 25 12/21/2024 CBC AUTO W DIFF nucleated red blood cells # 0.00 K/uL Not Available [facility] ([facility]) [address], [place], [address], 12/21/2024 14:21:17 12/22/19 25 12/21/2024 CBC AUTO W DIFF manual differential NO Not Available [facility] ([facility]) [address], [place], [address], 12/21/2024 14:21:17 12/22/19 25 12/21/2024 HEPAT IC FUNCT IONAL PANEL total protein 7.2 g/dL 6.4-8. 2 Not Available [facility] ([facility]) [address], [place], [address], 12/21/2024 14:51:30 12/22/19 25 12/21/2024 HEPAT IC FUNCT IONAL PANEL albumin 4.1 g/dL 3.4-5. 0 Not Available [facility] ([facility]) [address], [place], [address], 12/21/2024 14:51:30 12/22/19 25 12/21/2024 HEPAT IC FUNCT IONAL PANEL bilirubin direct 0.0 O.oo-0 .30 Not Available [facility] ([facility]) [address] , [place], [address], 12/21/2024 14:51:30 12/22/19 25 12/21/2024 HEPAT IC FUNCT IONAL PANEL bilirubin total 0.40 mg/dL 0.10-1 .00 Not Available [facility] ([facility]) [address] , [place], [address], 12/21/2024 14:51:30 12/22/19 25 12/21/2024 HEPAT IC FUNCT IONAL PANEL bilirubin indirect 0.40 Not Available [facility] ([facility]) [address], [place], [address], 12/21/2024 14:51:30 12/22/19 25 12/21/2024 HEPAT IC FUNCT IONAL PANEL AST (SGOT) 32 U/L 0-37 Not Available [facility] ([facility]) [address], [place], [address], 12/21/2024 14:51:30 12/22/19 25 12/21/2024 HEPAT IC FUNCT IONAL PANEL ALT (SGPT) 50 U/L 0-65 Not Available [facility] ([facility]) [address], [place], [address], 12/21/2024 14:51:30 12/22/19 25 12/21/2024 HEPAT IC FUNCT IONAL PANEL alk phosphatase 122 U/L 46-116 high Not Available [facility] ([facility]) [address], [place], [address], 12/21/2024 14:51:30 Result Notes None recorded. 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 Procedures Surgical History Date Name Laterality Status Provider Name and Address Organization Details Recorded Time 09/15/18 98 Cardiovascular Surgery completed Ben Torres [place] 08/05/2022 13:01:39 09/15/18 98 Other completed Ben Torres [place] 08/05/2022 13:01:39 procedure on knee completed Ben Torres [place] 08/05/2022 13:05:30 Imaging Results None recorded. Procedure [...] Updated DateTime 5 187.96 cm 26.1 kg/m2 95112.2 5 g 98.2 [degF] 67 /min 92 % 92 % 94/59 mm[Hg] Preeti BEVERLY [facility] [place] 5 10:40:12 Date Recorded Body height Heart rate Oxygen saturation Oxygen saturation in Arterial blood by Pulse oximetry Heart rate Body temperature Body mass index (BMI) Body weight Systolic And Diastolic Provider Name and Address Organization Details Last Updated DateTime 5 187.96 cm 79 /min 94 % 94 % 79 /min 98 [degF] 25.5 kg/m2 10795.8 8 g 122/67 mm[Hg] Tammy Theodore [facility] & [place] 5 13:43:20 Date Recorded Body height Heart rate Oxygen saturation Oxygen saturation in Arterial blood by Pulse oximetry Body temperature Body mass index (BMI) Body weight Systolic And Diastolic Provider Name and Address Organization Details Last Updated DateTime 5 187.96 cm 58 /min 95 % 95 % 98.9 [degF] 25.3 kg/m2 44230.1 3 g 116/69 mm[Hg] Magnus BEVERLY [facility] & [place] 5 11:10:14 Date Recorded Body height Oxygen saturation Oxygen saturation in Arterial blood by Pulse oximetry Heart rate Systolic And Diastolic Provider Name and Address Organization Details Last Updated DateTime 4 187.96 cm 91 % 91 % 56 /min 133/74 mm[Hg] Preeti GuevarappardBrian Ranulfo BEVERLY [facility] & [place] 4 09:22:06 Date Recorded Body height Body mass index (BMI) Body weight Body temperature Heart rate Oxygen saturation Oxygen saturation in Arterial blood by Pulse oximetry Systolic And Diastolic Provider Name and Address Organization Details Last Updated DateTime 4 187.96 cm 25.3 kg/m2 70075.7 g 96.7 [degF] 66 /min 93 % 93 % 130/70 mm[Hg] Preeti BEVERLY [facility] & [place] 4 10:33:55 Social History Question Answer Notes LastModified by Organizat ion Details LastModified Time Tobacco Smoking Status Former Smoker Lindsaybharati Alexander benavides RUSH [facility] & [place] 08/05/2022 13:01:35 Do You Have An Advance Directive? Yes [email or web address] Information not available 08/05/2022 Are You Blind Or Do You Have Difficulty Seeing? No [email or web address] Information not available 08/05/2022 What Was The Date Of Your Most Recent Tobacco Screening? 06/21/2024 [email or web address] Information not available 06/24/2024 Are You Passively Exposed To Smoke? No [email or web address] Information not available 08/05/2022 How Much Tobacco Do You Smoke? No [email or web address] Information not available 08/05/2022 How Many Years Have You Smoked Tobacco? 30 Years In The Past [email or web address] Information not available 08/05/2022 Sex: Male Functional Status Question Answer Note LastModified by Organizat ion Details LastModified Time Do you use any illicit or recreational drugs? No [email or web address] Information not available 08/05/2022 What is your level of alcohol consumption? None [email or web address] Information not available 08/05/2022 Do you or have you ever used smokeless tobacco? Never used smokeless tobacco [email or web address] Information not available 08/05/2022 What is your exercise level? Occasional [email or web address] Information not available 08/05/2022 Mental Status Question Answer Note LastModified by Organization D etails LastModified Time Do you feel stressed (tense, restless, nervous, or anxious, or unable to sleep at night)? [id number] [email or web address] Information not available 08/05/2022 Family History Relationship Description Onset Age of this Age Resolved Age Notes LastModified by Organization Details LastModified Time Mother Myocardial infarction dec [email or web address] Not available 08/05 13:03:49 Mother Kidney disease [...] SNOMED-CT Code Diagnosis ICD10 Code Diagnosis Note [id number] Sanket Schaeffer Jr, MD [facility] [address] [place] [address] [place] [address] 08/05/2022 12:30:55 08/05/2022 13:26:38 Benign prostatic hyperplasia with outflow obstruction 965333060 N40.1 Patient with lower urinary tract symptoms due to BPH. He is doing well on the tamsulosin and is to continue. Erectile dysfunction 860 728434 F52.21 patient with history of erectile dysfunctio n. He states he does well with the sildenafil 100 mg p.r.n.. [id number] Sanket Schaeffer Jr, MD [facility] [address] [place] [address] [place] [address] 02/06/2023 13:40:33 02/06/2023 14:19:48 Prostate specific antigen above reference range 591629160 R97.20 Patient with history of elevated PSA. [...] tract symptoms due to benign prostatic hypertrophy 3603893420 9101 N40.1 patient with history of BPH. He is voiding well on the tamsulosin and is to continue. Erectile dysfunction 860 582654 F52.21 patient with history of erectile dysfunctio n. He states he does well with the sildenafil 100 mg p.r.n.. [id number] Sanket Schaeffer Jr, MD [facility] [address] [address] [place] [address] 08/13/2023 08:41:10 08/13/2023 09:26:44 Prostate specific antigen above reference range 763006387 R97.20 Patient with history of elevated PSA. His recent PSA 2 weeks ago Was 11.5. This is we will higher than his previous of 9.6. It has been as high as 10.1 in the past. We again discussed prostate biopsy versus monitoring and he wishes to continue monitoring . Lower urin matty tract symptoms due to benign prostatic hypertrophy 4616144127 9101 N40.1 patient with history of BPH. [...] direction at this time. Erectile dysfunction 860 087548 F52.21 patient with history of erectile dysfunctio n. He states he does well with the sildenafil 100 mg p.r.n.. We have discussed not taking the sildenafil within 4 hours of the Flomax. [id number] Sanket Schaeffer Jr, MD [facility] [address] [address] 02/13/2024 09:03:41 02/13/2024 09:40:36 Prostate specific antigen above reference range 588122116 R97.20 Patient with history of elevated PSA. [...] tract symptoms due to benign prostatic hypertrophy 3994980904 9101 N40.1 patient with history of BPH. patient states some increased frequency and nocturia. patient has not improved in the past with increasing his tamsulosin 2 a day or with oxybutynin . He complains of decreased flow. We would discussed other options but they require surgical procedures as well. [id number] Sanket Schaeffer Jr, MD [facility] [address] [address] 11/12/2023 09:13:53 11/12/2023 10:07:59 Lower urinary tract symptoms due to benign prostatic hypertrophy 0047987841 9101 N40.1 patient with history of BPH. [...] Prostate s pecific antigen above reference range 165005390 R97.20 Patient with history of elevated PSA. [...] PSA in 3 months. Erectile dysfunction 860 317085 F52.21 patient with history of erectile dysfunctio n. He states he does well with the sildenafil 100 mg p.r.n.. We have discussed not taking the sildenafil within 4 hours of the Flomax. [id number] [facility] [address] 06/24/2024 09:55:04 06/24/2024 10:30:41 Inactive tuberculosis 45474919 Z22.7 History of being in the . Patient is negative for any pulmonary symptoms. Chest xray normal. Patient is on suppressiv e medication s for PMR. Patient takes Warfarin due to his mechanical heart valve. Will start Isoniazid and Vitamin B6. Will see patient back in 1 month. Plan will be to complete a 9 month regimen. All questions answered. [id number] [facility]105 1140 [facility] [address] [place] [address] 07/23/2024 09:14:15 07/23/2024 09:34:06 Inactive tuberculosis 33408695 Z22.7 History of being in the . [...] 1 month. High risk medication monitoring indicated 4175259351 7097481 Z76.89 Will check a CBC and hepatic function panel due to the oysterman use of Isoniazid. Will monitor weight regularly and check for adverse effects. [id number] [facility]105 1140 [facility] [place] [address] 08/20/2024 10:25:17 08/20/2024 10:44:10 Inactive tuberculosis 12563937 Z22.7 History of being in the . [...] 1 month. High risk medication monitoring indicated 7597252615 4970533 Z76.89 Will check a CBC and hepatic function panel due to the oysterman use of Isoniazid. Will monitor weight regularly and check for adverse effects. [id number] Nery Carreon in [facility] Infectiou s Disease -105 1140 [facility] [address] [place] [address] 10/21/2024 10:32:10 10/21/2024 10:47:20 Inactive tuberculosis 61232655 Z22.7 History of being in the . [...] 2 months. High risk medication monitoring indicated 6355556297 1240885 Z76.89 Will check a CBC and hepatic function panel due to the oysterman use of Isoniazid. Will monitor weight regularly and check for adverse effects. [id number] [facility]105 [address] [facility] [address] [place] [address] 12/21/2024 13:36:37 12/21/2024 13:51:52 Inactive tuberculosis 81944009 Z22.7 History of being in the . [...] 3 months. High risk medication monitoring indicated 7516751336 3049932 Z76.89 Will check a CBC and hepatic function panel due to the senior living use of Isoniazid. Will monitor weight regularly and check for adverse effects. [id number] Nery [place] in, [employer] [employer] [facility] Infectiou s Disease -[address] [place] [address] 03/22/2025 11:00:19 03/22/2025 11:17:03 Inactive tuberculosis 50195772 Z22.7 History of being in the . Patient is negative for any pulmonary symptoms. Chest xray normal. Patient is on suppressiv e medication s for PMR. Patient takes Warfarin due to his mechanical heart valve. Patient has been on Isoniazid and Vitamin B6 for the last 9 months. Will request labs drawn yesterday from PCP. No follow up required. High risk medication monitoring indicated 5804036248 1756527 Z76.89 Will check a CBC and hepatic function panel due to the senior living use of Isoniazid. Will monitor weight regularly and check for adverse effects. Health Concerns Section Related Observation LastModified by Organization Detai ls LastModified Time None Recorded Concern Status LastModified by Organization Details LastModified Time None Recorded Advance Directives Directive Y: Payers Insurance Date Sequence Insurance Name Policy Number Policy Carroll Covered Member ID Carroll Member ID Guarantor Name 08/05/2022 1 *SELF PAY* Ri khushi Lezama 03/24/2025 2 [facility] [place] Martin Lezama [id number] Martin Lezama 03/19/2025 1 [place] Martin Lezama [id number] Martin Lezama Notes Date Note Type Note [...] symptoms. Denies any fevers. Nery Lee APRN [address], [place], [address], [facility] [place] 07/23/2024 09:37:00 08/20/2024 text/html patient presents to [...] will start radiation treatment. Nery Lee APRN [address], [place], [address], [facility] [place] 08/20/2024 10:49:26 10/21/2024 text/html patient presents to [...] week for prostate cancer. Nery Lee APRN [address], [place], [address], [facility] [place] 10/21/2024 11:35:54 12/21/2024 text/html patient presents to [...] cancer. Nery Lee APRN [address], [place], [address], [facility] [place] 12/21/2024 13:51:11 03/22/2025 text/html patient presents to clinic for follow up on latent TB. Patient has been taking Isoniazid and Vitamin B6 for the last 9 months. Patient tolerated. He denies any nausea/vomiting/di arrhea. Patient is chronically on prednisone and his bilateral hands are swollen. His weight is stable. Vitals stable. He denies any respiratory symptoms. Denies any fevers. Denies any parasthesia. Nery Lee APRN [address], [place], [address], [facility] [place] 03/24/2025 11:59:01
--- OUTSIDE RECORDS SUMMARY | 2025-03-31 11:32 | XMS_ITS | Clinical Summary ---
Author Organization [employer] ([place], [place], [place], [place]) Address [address] [place] [address] Care Team Providers Care News Content Specialist Name Role Phone Tristan Billings DO Primary Care Provider [phone] Allergies No known active allergies Medications glipiZIDE [...] any time in the past 12 [facility], were you homeless or living [...] living situation today? I have a [facility] to live 08/10/2024 Think about the [...] Do you speak a language other than [place]inyarwanda at [facility]? No 08/10/2024 Do you want help [...] Advance Directives For more information, please contact: [phone] Documents on File Type Date Recorded Patient Engraver Block Expl anation Advance Directives and Living Will 08/10/2024 * Full Code (Latest Code Status on File) Date Activated Date Inactivated Comments 08/10/2024 2:42 PM 08/15/2024 4:37 PM Care Teams News Content Specialist Relationship Specialty Start Date End Date Tristan Billings DO PCP - General Internal Medicine 08/10/24
--- OUTSIDE RECORDS SUMMARY | 2025-03-31 11:32 | XMS_ITS | Referral Summary ---
Author Organization [employer] ([place], [place], [place], [place]) Address [address] [place] [address] Care Team Providers Care Floor Installation Mechanic Name Role Phone Tristan Billings DO Primary Care Provider [phone] Allergies No known active allergies Medications glipiZIDE [...] any time in the past 12 m [facility], were you homeless or living in a retirement (including now)? No 08/14/2024 Utilities Answer Date [...] Do you speak a language other than Maldivian at [facility]? No 08/10/2024 Do you want help with [...] Advance Directives For more information, please contact: [phone] Documents on File Type Date Recorded Patient Rail Bonder Expl anation Advance Directives and Living Will 08/10/2024 * Full Code (Latest Code Status on File) Date Activated Date Inactivated Comments 08/10/2024 2:42 PM 08/15/2024 4:37 PM Care Teams Floor Installation Mechanic Relationship Specialty Start Date End Date Tristan Billings DO PCP - General Internal Medicine 08/10/24
--- OUTSIDE RECORDS SUMMARY | 2025-03-31 11:33 | XMS_ITS | Data Portability ---
Author Organization [facility] Address [address] [facility] [place] [address] Care Team Providers Care Melt Supervisor Name Role Phone FRED MURILLO Primary Care Provider [phone] FADY FLOR Referring Provider ZORAIDA GARDNER Radiation [...] T, skull base to mid-t high scan [address] [address] Patien t Name: TRISHA PERSAUD N Patien [...] GFR =50 6.2 mCi Ga-68 PSMA ([facility] [address]- [id number] ) was inject ed IV. After [...] (1 x 50 ml bottle of [facility] [id number] ) admini stered 20 [...] thy. There is adenop athy in the project management intern al iliac region and along the [...] Escalona MD on 2023 12:24 PM [email or web address] [facility] [address] [facility], [place], [address], 09/01/2024 12:51:05 09/27/19 25 09/27/2024 MRI, pelvi s, w/o contr ast [address] [address] Patidc t Name: TRISHA Tsang Patidc olson [...] Escalona MD on 025 4:20 PM [email or web address] [facility] [id number] [place], [address], 09/27/2024 19:31:11 Result Notes Documentation Provider Name and Address Organization Details Recorded Time Pet-ct, Skull Base To Mid-thigh Scan : [facility] [address] [place] [address] Patient Name: MARTIN LEZAMA Patient : 1945 [...] GFR =50 6.2 mCi Ga-68 [facility] ([facility] [address]-536-94) was injected IV. After an uptake time of 76 minutes, vertex through midthigh PET imaging was performed. This was followed by a low dose attenuation correction/anatomic localization CT from vertex through the midthigh levels. Urinary tract was opacified with an injection of 50 mL Omnipaque 350 (1 x 50 ml bottle of [facility] [id number]) administered [address] scan. [...] MD IDA GARDNER MD [address] [facility] [place], [address], [facility] 09/01/2024 12:51:05 Mri, Pelvis, W/o Contrast : [facility] [address] [place] [address] Patient Name: MARTIN LEZAMA Patient : 1945 [...] IDA GARDNER MD [address], [place], [address], [facility] 09/27/2024 19:31:11 Procedures Surgical History Date Name Laterality Status Provider Name and Address Organization Details Recorded Time 01/03/20 25 Prostate marker placement with SpaceOAR completed ZORAIDA GARDNER MD [address], [place], [address], [facility] 09/20/2024 21:49:03 10/16/18 98 mechanical prosthetic aortic valve [facility] 08/17/2024 12:00:45 09/15/18 98 procedure on knee completed [facility] 08/17/2024 12:01:01 09/15/18 80 vasectomy completed [facility] 08/17/2024 12:01:12 Imaging Results [...] Last Updated DateTime 09/17/2024 187.96 [facility] 09/17/2024 10:38:39 Date Recorded Body height Body mass index (BMI) Body weight Body temperature Heart rate Oxygen saturation Oxygen saturation in Arterial blood by Pulse oximetry Systolic And Diastolic Provider Name and Address Organization Details Last Updated DateTime 187.96 cm 24.9 kg/m2 05214.9 2 g 97.2 [degF] 66 /min 94 % 94 % 102/54 mm[Hg] Roselyn Rivera [facility] 11:31:12 Social History Question Answer Notes LastModified by Organizat ion Details LastModified Time Tobacco Smoking Status Former Smoker Roselyn Rivera [facility] 08/17/2024 11:34:36 What Is Your Level [...] Illness N Diabetes Y Autoimmune disease N Seizures/Epilepsy N Arthritis Y Tuberculosis Y Kidney Failure N Cancer Y Radiation Therapy N Cardiac Disease Y Malabsorption N High Cholesterol N Previous Radiation Therapy? N Liver Disease N Dialysis N Hypertension Y Kidney Disease N Past Encounters Encounter ID Performer Location Encounter Start Date Encounter Closed Date Diagnosis/Indication Diagnosis SNOMED-CT Code Diagnosis ICD10 Code Diagnosis Note [id number] MD SHILOH BLISS [facility] [address] [place] [address] 05/19/2024 13:25:43 05/21/2024 06:07:21 [id number] MD [facility]OH [facility] [address] [place] [address] 07/23/2024 11:25:17 07/23/2024 16:41:36 [id number] FADY LAMB MD SURGERY SCHEDULE [address] [place] [address] 08/04/2024 08:27:28 08/04/2024 08:27:53 [id number] FADY LAMB MD [facility] [address] [place] [address] 08/09/2024 14:02:05 08/10/2024 04:08:34 [id number] ZORAIDA GARDNER MD [facility] [address] [place] [address] 08/17/2024 10:55:10 08/30/2024 12:23:43 Malignant neoplasm of prostate 801715328 C61 [id number] FADY LAMB MD [facility] [address] [place] [address] 09/03/2024 11:13:19 09/03/2024 16:46:21 [id number] ZORAIDA GARDNER MD [facility] [address] [place] [address] 09/17/2024 09:29:57 09/21/2024 10:50:56 Malignant neoplasm of prostate 212952320 C61 [id number] [facility] [address] [place] [address] 02/28/2025 13:16:41 02/28/2025 14:52:53 Health Concerns Section Related Observation LastModified by Organization Detai ls LastModified Time None Recorded Concern Status LastModified by Organization Details LastModified Time None Recorded Advance Directives Directive None Recorded Payers Insurance Date Sequence Insurance Name Policy Number Policy Carroll Covered Member ID Carroll Member ID Guarantor Name 02/25/2025 1 [place] Martin Lezama [id number] Martin Lezama 02/25/2025 2 FOR LIFE () Martin Lezama [id number] Martin Lezama Notes Date Note Type Note [...] right side 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 His DIVINA score is 25 out of 25 with the use of Viagra. He has regular bowel movements without melena, hematochezia, tenesmus, or frequent diarrhea. 1 benign polyp was resected at his most recent colonoscopy in 2021. He smoked 1 pack of cigarettes daily for 20 years but quit in 1997. ZORAIDA GARDNER MD [address], [place], [address], [facility] 08/29/2024 11:53:22
--- OUTSIDE RECORDS SUMMARY | 2025-03-31 11:33 | XMS_ITS | Continuity of Care Document ---
Author Organization [facility] & [facility] Infectious Disease -[address] Address [address] [place] [address] Care Team Providers Care Coding Machine Operator Name Role Phone MAXIMILIAN TORRES Primary Care Provider [phone] AURELIA DEL CASTILLO Lip Of Shank Cutter [phone] FADY LAMB Urologist EMERY PIEDRA Pan Puller GAYLA SANCHEZ Primary Care Provider [phone] Assessment No assessment recorded. Plan of Treatment [...] Address Organization Details Recorded Time Sleep apnea 97966023 Active 2021 Ben benavides [facility] & [place] 2 13:02:29 Diabetes mellitus 58184748 Active 2021 Ben benavides [facility] & [place] 2 13:02:36 Irregular heart beat 307226034 Active 2021 Ben benavides [facility] & [place] 2 13:02:49 Hypertensive disorder 12219253 Active 2021 [facility] [place] 2 13:02:55 Inactive tuberculosis 63833615 Active 2024 [facility] & [place] 5 11:31:55 Problem Notes None recorded. Procedures Surgical History Date Name Laterality Status Provider Name and Address Organization Details Recorded Time 09/15/18 98 Cardiovascular Surgery completed [facility] [place] 08/05/2022 13:01:39 09/15/18 98 Other completed [facility] [place] 08/05/2022 13:01:39 [facility] & [place] 08/05/2022 13:05:30 Imaging Results None recorded. Procedure [...] % 95 % 98.9 [degF] 25.3 kg/m2 46586.1 3 g 116/69 mm[Hg] Magnus Burksmarylu [facility] & [place] 5 11:10:14 Social History Question Answer Notes LastModified by Organizat ion Details LastModified Time Tobacco Smoking Status Former Smoker Ben Munoz kennedy, [facility] & [place] 08/05/2022 13:01:35 Do You Have An Advance Directive? Yes [email or web address] Information not available 08/05/2022 Are You Blind Or Do You Have Difficulty Seeing? No [email or web address] Information not available 08/05/2022 What Was The Date Of Your Most Recent Tobacco Screening? 06/21/2024 [email or web address] Information not available 06/24/2024 Are You Passively Exposed To Smoke? No Information not available 08/05/2022 How Much Tobacco Do You Smoke? No [email or web address] Information not available 08/05/2022 How Many Years Have You Smoked Tobacco? 30 Years In The Past [email or web address] Information not available 08/05/2022 Sex: Male Functional Status Question Answer Note LastModified by Organizat ion Details LastModified Time Do you use any illicit or recreational drugs? No [email or web address] Information not available 08/05/2022 What is your level of alcohol consumption? None [email or web address] Information not available 08/05/2022 Do you or have you ever used smokeless tobacco? Never used smokeless tobacco Information not available 08/05/2022 What is your exercise level? Occasional [email or web address] Information not available 08/05/2022 Mental Status Question Answer Note LastModified by Organization D etails LastModified Time Do you feel stressed (tense, restless, nervous, or anxious, or unable to sleep at night)? [id number] [email or web address] Information not available 08/05/2022 Family History Relationship Description Onset Age of this Age Resolved Age Notes LastModified by Organization Details LastModified Time Mother Myocardial infarction dec [email or web address] Not available 08/05 13:03:49 Mother Kidney disease [...] SNOMED-CT Code Diagnosis ICD10 Code Diagnosis Note [id number] Nery Carreon in, PLANNING ENGINEER [facility] Infectiou s Disease -[address] [place] [address] 03/22/2025 11:00:19 03/22/2025 11:17:03 Inactive tuberculosis 28192848 Z22.7 History of being in the . [...] up required. High risk medication monitoring indicated [id number] Z76.89 Will check a CBC and hepatic function panel due to the group home use of Isoniazid. Will monitor weight regularly and check for adverse effects. Health Concerns Section Related Observation LastModified by Organization Detai ls LastModified Time None Recorded Concern Status LastModified by Organization Details LastModified Time None Recorded Payers Encounter Date Sequence Insurance Name Policy Number Policy Carroll Covered Member ID Carroll Member ID Guarantor Name 03/22/2025 2 PENDING SALE TO [facility] [place] Martin Lezama [id number] Martin Lezama 03/22/2025 1 [place] Martin Lezama [id number] Martin Lezama Notes Date Note Type Note Provider Name and Address Organization Details Recorded Time 03/22/2025 text/html patient presents to clinic for follow up on latent TB. Patient has been taking Isoniazid and Vitamin B6 for the last 9 months. Patient tolerated. He denies any nausea/vomiting/d iarrhea. Patient is chronically on prednisone and his bilateral hands are swollen. His weight is stable. Vitals stable. He denies any respiratory symptoms. Denies any fevers. Denies any parasthesia. Nery Lee, PLANNING ENGINEER [address], [place], [address], [facility] [place] & [place] 03/24/2025 11:59:01
--- OUTSIDE RECORDS SUMMARY | 2025-03-31 11:33 | XMS_ITS | Data Portability ---
Author Organization [facility] MARY NicholsS SILOAM CLOSED Address [address] [place] [address] Assessment Encounter Date Assessment Date Assessment LastModified [...] Lab urinalysi s panel, auto [address] [facility], [address], [place], [address], 02/28/2025 14:44:08 PSA, serum or plasma [address] [facility], [address], [address], [place], [address], 02/28/2025 14:44:08 urinalysi s panel, auto [address] [facility], [address], [address], [place], [address], 09/05/2024 22:40:08 Referral None recorded. Procedures None recorded. Surgeries None recorded. Imaging None recorded. Medication Orders levofloxa brittney 750 mg tablet 2023 [facility], [address] [place] [address] [address], [place], [place], [id number], 07/26/2024 13:18:08 oxybutyni n chloride ER 5 mg tablet,ex tended release 24 hr 2023 [facility], [address] [place] [address] [address], [place], [place], [id number], 07/26/2024 13:18:07 tamsulosi n 0.4 mg capsule 2023 024 [facility], [address], [place], [address], 07/25/2024 14:38:23 Patient TargetsNo targets recorded. Patient Instructions Encounter Date Encounter Id Patient Instructions Last Modified By Organization Details Last Modified Time 08/09/2024 [id number] learning about depression Not available 08/09/2024 21:12:50 Reason for Referral None Reported. Results Created Date Observation Date Name Description Value Unit Range Abnormal Flag Note LastModifiedBy Organization Detail LastModifiedTime 08/04/20 24 08/04/2024 PROTH ROMBI N TIME prothrombin time 11.5 secon ds 9.2-11 .0 high Not Available [facility] [address] [place], [address], 08/04/2024 08:45:13 08/04/2008/04/2024 PROTH ROMBI N TIME [...] NICAL PROST HETIC VALVE S Not Available [facility] [address] [place], [address], 08/04/2024 08:45:13 08/04/2008/04/2024 SURGI LAVERNE surgical SEE [...] rmed on tissu e from case [id number] 1. The case repor t, slide s, [...] 5%). - Immun ostai ns: CD56: Negat aaln Synap tophy sin: Negat alan TTF-1 : [...] 14:29 Page 1 of 1 Not Available [facility] [address] [place] [address], [address], 08/10/2024 13:53:39 09/03/20 24 09/03/2024 urina lysis panel , auto Unknown Analyte Clean Catch Not Available [facility] [address], [place], [address], 09/03/2024 12:05:04 09/03/20 24 09/03/2024 urina lysis panel , auto Unknown Analyte Yellow Not Available [facility] [address], [place], [address], 09/03/2024 12:05:04 09/03/20 24 09/03/2024 urina lysis panel , auto Unknown Analyte Clear Not Available [facility] [place] [address], [place], [address], 09/03/2024 12:05:04 09/03/20 24 09/03/2024 urina lysis panel , auto Unknown Analyte 1.015 Not Available [facility] [address], [place], [address], 09/03/2024 12:05:04 09/03/20 24 09/03/2024 urina lysis panel , auto Unknown Analyte 1.003- 1.035 Not Available [facility] [address], [place], [address], 09/03/2024 12:05:04 09/03/20 24 09/03/2024 urina lysis panel , auto Unknown Analyte 5.0 Not Available [facility] [address], [place], [address], 09/03/2024 12:05:04 09/03/20 24 09/03/2024 urina lysis panel , auto Unknown Analyte 5.0-8. 0 Not Available [facility] [address], [place], [address], 09/03/2024 12:05:04 09/03/20 24 09/03/2024 urina lysis panel , auto Unknown Analyte Negati ve Not Available [facility] [address], [place], [address], 09/03/2024 12:05:04 09/03/20 24 09/03/2024 urina lysis panel , auto Unknown Analyte Negati ve Not Available [facility] [address], [place], [address], 09/03/2024 12:05:04 09/03/20 24 09/03/2024 urina lysis panel , auto Unknown Analyte Negati ve Not Available [facility] [address], [place], [address], 09/03/2024 12:05:04 09/03/20 24 09/03/2024 urina lysis panel , auto Unknown Analyte Negati ve Not Available [facility] [address], [place], [address], 09/03/2024 12:05:04 09/03/20 24 09/03/2024 urina lysis panel , auto Unknown Analyte Negati ve Not Available [facility] [address], [place], [address], 09/03/2024 12:05:04 09/03/20 24 09/03/2024 urina lysis panel , auto Unknown Analyte Negati ve Not Available [facility] [address], [place], [address], 09/03/2024 12:05:04 09/03/20 24 09/03/2024 urina lysis panel , auto Unknown Analyte >1000 mg/dl Not Available [facility] [address], [place], [address], 09/03/2024 12:05:04 09/03/20 24 09/03/2024 urina lysis panel , auto Unknown Analyte Normal Not Available [facility] [address], [place], [address], 09/03/2024 12:05:04 09/03/20 24 09/03/2024 urina lysis panel , auto Unknown Analyte Negati ve Not Available [facility] [address], [place], [address], 09/03/2024 12:05:04 09/03/2009/03/2024 urina lysis panel , auto Unknown Analyte Negati ve Not Available [facility] [address], [place], [address], 09/03/2024 12:05:04 09/03/20 24 09/03/2024 urina lysis panel , auto Unknown Analyte Normal Not Available [facility] [address], [place], [address], 09/03/2024 12:05:04 09/03/2009/03/2024 urina lysis panel , auto Unknown Analyte Normal 1 mg/dl Not Available [facility] [address], [place], [address], 09/03/2024 12:05:04 09/03/20 24 09/03/2024 urina lysis panel , auto Unknown Analyte Negati ve Not Available [facility] [address], [place], [address], 09/03/2024 12:05:04 09/03/20 24 09/03/2024 urina lysis panel , auto Unknown Analyte Negati ve Not Available [facility] [address], [place], [address], 09/03/2024 12:05:04 09/03/20 24 09/03/2024 urina lysis panel , auto Unknown Analyte 250 Arslan/ul Not Available [facility] [address], [place], [address], 09/03/2024 12:05:04 09/03/20 24 09/03/2024 urina lysis panel , auto Unknown Analyte Negati ve Not Available [facility] [address], [place], [address], 09/03/2024 12:05:04 02/29/20 25 02/28/2025 urina lysis panel , auto Unknown Analyte Clean Catch Not Available [facility] [address], [place], [address], 02/28/2025 14:04:51 02/29/20 25 02/28/2025 urina lysis panel , auto Unknown Analyte Yellow Not Available [facility] [address], [place], [address], 02/28/2025 14:04:51 02/29/20 25 02/28/2025 urina lysis panel , auto Unknown Analyte Clear Not Available [facility] [address], [place], [address], 02/28/2025 14:04:51 02/29/20 25 02/28/2025 urina lysis panel , auto Unknown Analyte 1.020 Not Available [facility] [address], [place], [address], 02/28/2025 14:04:51 02/29/20 25 02/28/2025 urina lysis panel , auto Unknown Analyte 1.003 - 1.030 Not Available [facility] [address], [place], [address], 02/28/2025 14:04:51 02/29/20 25 02/28/2025 urina lysis panel , auto Unknown Analyte 5.0 Not Available [facility] [address], [place], [address], 02/28/2025 14:04:51 02/29/20 25 02/28/2025 urina lysis panel , auto Unknown Analyte 5.0 - 8.0 Not Available [facility] [address], [place], [address], 02/28/2025 14:04:51 02/29/20 25 02/28/2025 urina lysis panel , auto Unknown Analyte 75 Iveth/uL Not Available [facility] [address], [place], [address], 02/28/2025 14:04:51 02/29/20 25 02/28/2025 urina lysis panel , auto Unknown Analyte Negati ve Not Available [facility] [address], [place], [address], 02/28/2025 14:04:51 02/29/20 25 02/28/2025 urina lysis panel , auto Unknown Analyte Negati ve Not Available [facility] [address], [place], [address], 02/28/2025 14:04:51 02/29/20 25 02/28/2025 urina lysis panel , auto Unknown Analyte Negati ve Not Available [facility] [address], [place], [address], 02/28/2025 14:04:51 02/29/20 25 02/28/2025 urina lysis panel , auto Unknown Analyte Trace Not Available [facility] [address], [place], [address], 02/28/2025 14:04:51 02/29/20 25 02/28/2025 urina lysis panel , auto Unknown Analyte Negati ve Not Available [facility] [address], [place], [address], 02/28/2025 14:04:51 02/29/20 25 02/28/2025 urina lysis panel , auto Unknown Analyte >1000 mg/dL Not Available [facility] [address], [place], [address], 02/28/2025 14:04:51 02/29/20 25 02/28/2025 urina lysis panel , auto Unknown Analyte Normal Not Available [facility] [address], [place], [address], 02/28/2025 14:04:51 02/29/20 25 02/28/2025 urina lysis panel , auto Unknown Analyte Negati ve Not Available [facility] [address], [place], [address], 02/28/2025 14:04:51 02/29/20 25 02/28/2025 urina lysis panel , auto Unknown Analyte Negati ve Not Available [facility] [address], [place], [address], 02/28/2025 14:04:51 02/29/20 25 02/28/2025 urina lysis panel , auto Unknown Analyte Normal Not Available [facility] [address], [place], [address], 02/28/2025 14:04:51 02/29/20 25 02/28/2025 urina lysis panel , auto Unknown Analyte Normal Not Available [facility] [address], [place], [address], 02/28/2025 14:04:51 02/29/20 25 02/28/2025 urina lysis panel , auto Unknown Analyte 1 mg/dL Not Available [facility] [address], [place], [address], 02/28/2025 14:04:51 02/29/20 25 02/28/2025 urina lysis panel , auto Unknown Analyte Negati ve Not Available [facility] [address], [place], [address], 02/28/2025 14:04:51 02/29/20 25 02/28/2025 urina lysis panel , auto Unknown Analyte 50 Arslan/uL Not Available [facility] [address], [place], [address], 02/28/2025 14:04:51 02/29/20 25 02/28/2025 urina lysis panel , auto Unknown Analyte Negati ve Not Available [facility] [address], [place], [address], 02/28/2025 14:04:51 06/22/20 24 06/22/2024 MRI, pelvi s, w/wo contr ast [facility] [address] [facility] [place] [address] Patien t Name: TRISHA Mireles OVERMA N [...] pre- and dynami c postco ntrast -enhan denies images as well as axial T1 fat-sa t imagin g was perfor med after inject ion of [address] (1 [place] [address]- 325-02 ) IV. 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 After [...] 350 (1 x 50 ml bottle of [facility] 0407-1 414-89 ) admini stered [...] thy. There is adenop athy in the network intern al iliac region and along the [...] Escalona MD on 2023 12:24 PM INTERFACE [facility] [address], [address], 09/01/2024 12:29:17 09/27/19 25 09/27/2024 MRI, pelvi s, w/o contr ast [place] [address] [place] [address] Patien t Name: TRISHA Mireles OVERMA N [...] 43 throug h 64 of series # 5449. SPACE- OAR HYDROG EL: No gel is [...] Escalona MD on 025 4:20 PM INTERFACE [facility] [address] [place] [address], [address], 09/27/2024 16:25:25 Result Notes Documentation Provider Name and Address Organization Details Recorded Time Pet-ct, Skull Base To Mid-thigh Scan : [address] [address] Patient Name: MARTIN LEZAMA Patient : 1945 [...] was GFR =50 6.2 mCi Ga-68 [facility] ([facility] 07581-316-83) was injected IV. After an uptake time of 76 minutes, vertex through midthigh PET imaging was performed. This was followed by a low dose attenuation correction/anatomic localization CT from vertex through the midthigh levels. Urinary tract was opacified with an injection of 50 mL Omnipaque 350 (1 x 50 ml bottle of [facility] 5160-2966-70) administered [address] scan. [...] Interpreted By: Tristan Escalona MD Not Available [facility] 09/01/2024 12:29:17 Mri, Pelvis, W/o Contrast : [place] [address] Patient Name: MARTIN LEZAMA Patient : 1945 [...] Administration completed Harleen Porfirio [facility] 02/28/2025 14:50:38 09/03/20 24 Lupron Administration completed Sadia Ndiaye [facility] 09/03/2024 13:10:22 Vasectomy completed Sadia Ndiaye [facility] 05/19/2024 15:50:09 procedure on knee completed Sadia Senthil [facility] 05/19/2024 15:52:15 mechanical prosthetic aortic valve replacement completed Tammy Curtis [facility] 05/21/2024 09:02:43 Imaging Results None [...] Updated DateTime 02/28/2025 187.96 cm 23.8 kg/m2 08272.59 g Harleen Monroy [facility] 02/28/2025 14:14:02 Date Recorded Body height Body mass index (BMI) Body weight Provider Name and Address Organization Details Last Updated DateTime 07/23/2024 187.96 cm 24.4 kg/m2 28534.55 g Tammy Curtis [facility] 07/23/2024 12:18:57 Date Recorded Body height Body mass index (BMI) Body weight Provider Name and Address Organization Details Last Updated DateTime 08/09/2024 187.96 cm 24.4 kg/m2 02620.55 g Grazyna Terrazas [facility] 08/09/2024 14:37:05 Date Recorded Body height Body mass index (BMI) Body weight Provider Name and Address Organization Details Last Updated DateTime 09/03/2024 187.96 cm 24.4 kg/m2 13622.55 g Sadia Ndiaye [facility] 09/03/2024 13:09:35 Social History Question Answer Notes LastModified by Organizat ion Details LastModified Time Tobacco Smoking Status Former Smoker cigarettes Sadia Ndiaye [facility] 05/19/2024 15:49:08 When Did You Quit Smoking? 18+yearssin taco perez 1997 [email or web address] Information not available 05/19/2024 What Was The Date Of Your Most Recent Tobacco Screening? 02/28/2025 [email or web address] Information not available 02/28/2025 What Is Your Relationship Status? [email or web address] Information not available 05/19/2024 How Much Tobacco Do You Smoke? No [email or web address] Information not available 05/19/2024 Has Tobacco Cessation Counseling Been Provided? No Information not available 05/19/2024 Sex: Male Functional Status Question Answer Note LastModified by Organizat ion Details LastModified Time Do you use any illicit or recreational drugs? No [email or web address] Information not available 05/19/2024 Do you or have you ever used any other forms of tobacco or nicotine? No [email or web address] Information not available 05/19/2024 What is your level of alcohol consumption? None [email or web address] Information not available 05/19/2024 Are you currently employed? No retired [email or web address] Information not available 05/19/2024 Mental Status None recorded. Family History Nothing Reported. Medical History Condition Response Sleep Apnea Y Past Encounters Encounter ID Performer Location Encounter Start Date Encounter Closed Date Diagnosis/Indication Diagnosis SNOMED-CT Code Diagnosis ICD10 Code Diagnosis Note [id number] CJ LAMB MD [facility] [address] [place] [address] 05/19/2024 13:25:43 05/21/2024 06:07:21 Prostate specific antigen above reference range 333833304 R97.20 Considerin g his medical history I [...] needle biopsy of the prostate Large prostate 093791871 N40.0 Continue tamsulosin [id number] CJ LAMB MD [facility] [address] [place] [id number] 07/23/2024 11:25:17 07/23/2024 16:41:36 Prostate specific antigen above reference range 107482293 R97.20 We will arrange for MRI directed transrecta l ultrasound and needle biopsy of the prostate under sedation. 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 We discussed that he may have issues with hematuria for prolonged period of time considerin g his chronic anticoagul ation therapy. Retention of urine 96584 4002 R33.9 Voiding trial today Malignant neoplasm of prostate 419520884 C61 We will refer to radiation oncology. Will arrange for total body bone scan [id number] ZORAIDA GARDNER MD [facility] [address] [place] [address] 08/17/2024 10:55:10 08/30/2024 12:23:43 [id number] CJ LAMB MD [facility] [address] [place] [address] 09/03/2024 11:13:19 09/03/2024 16:46:21 Malignant neoplasm of prostate [id number] C61 Follow-up 6 months with PSA [id number] ZORAIDA GARDNER MD [facility] [address] [place] [address] 09/17/2024 09:29:57 09/21/2024 10:50:56 [id number] CJ LAMB MD [facility] [address] [place] [address] 02/28/2025 13:16:41 02/28/2025 14:52:53 History of malignant neoplasm of prostate 993270100 Z85.46 He received a 6-month Eligard injection [...] Carroll Member ID Guarantor Name 02/25/2025 1 MEDICARE[employer] (MEDICARE) Martin Lezama [id number] Martin Lezama 02/25/2025 2 FOR LIFE () Martin Lezama [id number] Martin Lezama Notes Date Note Type Note [...] prior to his biopsy. CJ LAMB MD [address] [place] [address], [address], [facility] 07/25/2024 14:39:29 08/09/2024 text/html Patient is here [...] has been to the emergency room at [facility] 3-4 different times for catheter irrigation. [...] in the bladder on CT scan at [facility] over the weekend. He is here [...] was 1.2 earlier today CJ LAMB MD [address] [place] [address] [place], [address], [facility] 08/09/2024 21:13:11 09/03/2024 text/html Patient is here to start LHRH antagonist therapy in anticipation of external beam radiation therapy for prostate cancer. We discussed potential side effects and expectations. He received a 6-month. Lupron injection. CJ LAMB MD [address] [place] [address] [place], [address], [facility] 09/05/2024 22:40:50 02/28/2025 text/html Patient is here [...] months. He now seeing Dr. Pappas in [place] as his primary care. CJ LAMB MD [address] [facility] [place], [address], [facility] 02/28/2025 17:48:31
--- OUTSIDE RECORDS SUMMARY | 2025-03-31 11:33 | XMS_ITS | Clinical Summary ---
Author Organization [facility] Address [address] [place] [address] Care Team Providers Care Educational Resource [facility] Teacher Name Role Phone ManuelitoTristan Primary Care Provider [phone] Allergies Active Allergy Reactions Criticality Noted Date [...] Date Neutropenia associated with infection 09/13/2024 09/13/2024 Immunizations Immunization Administration Dates Next Due TD [...] Description 06/27/2025 12:30 PM EDT Office Visit [facility] [address] [place] [address] 06/27/2025 1:30 PM EDT Office Visit [facility] [address] [place] [address] Justen Jaimes MD [address] [place] [address] Health Maintenance Due Date Last Done Comments [facility]-Hepatitis C Screening 1945 [facility]-Medicare Annual Wellness (AWV) 1945 [facility]-/Child/Adol SDOH Screenings 1945 [facility]-Obesity Intervention 1953 [facility]- SDOH Screenings 1965 [facility]-Adult SDOH Screenings 1965 [facility]-Pneumococcal Vaccine: 50 + Years (1 of 2 - PCV) 1966 [facility]-Zoster Vaccines (1 of 2) 1966 [facility]-DTaP,Tdap,and Td Vaccine s (1 - Tdap) 07/25/2010 07/24/2010 [id number] Vaccine (3 - Moderna risk series) 12/20/2020 [...] age to complete this topic [place] [address] [facility] Care Teams Educational Resource Center Teacher Relationship Specialty Start Date End Date Tristan Billings DO [address] [place] [address] [place] [id number] PCP - General 09/13/24
--- OUTSIDE RECORDS SUMMARY | 2025-03-31 11:33 | XMS_ITS | Continuity of Care Document ---
Author Organization [facility] Address [address] [address] [place] [address] Assessment No assessment recorded. Plan of Treatment Reminders Order Date Submit Date Provider Last Modified By Organization Details Last Modified Time Details Appointments RECHECK 2024 01:30P M ZORAIDA GARDNER MD Not available Not available Not available RECHECK 2024 01:30P M FADY LAMB MD Not available Not available Not available Lab urinalysi s panel, auto 2024 025 [email or web address] [facility], [address] [facility], [place], [address], 02/28/2025 14:44:08 PSA, serum or plasma 2024 025 [facility], [address] [facility], [address], [place], [address], 02/28/2025 14:44:08 Referral None recorded. Procedures None recorded. Surgeries None recorded. Imaging None recorded. Medication Orders None recorded. Patient TargetsNo targets recorded. Patient InstructionsNo instructions recorded. Reason for Referral None Reported. Results Created Date Observation Date Name Description Value Unit Range Abnormal Flag Note LastModifiedBy Organization Detail LastModifiedTime 02/29/2002/28/2025 urina lysis panel , auto Unknown Analyte Clean Catch Not Available [facility] [address], [place], [address], 02/28/2025 14:04:51 02/29/20 25 02/28/2025 urina lysis panel , auto Unknown Analyte Yellow Not Available [facility] [address], [place], [address], 02/28/2025 14:04:51 02/29/20 25 02/28/2025 urina lysis panel , auto Unknown Analyte Clear Not Available [facility] [address], [place], [address], 02/28/2025 14:04:51 02/29/20 25 02/28/2025 urina lysis panel , auto Unknown Analyte 1.020 Not Available [facility] [address], [place], [address], 02/28/2025 14:04:51 02/29/20 25 02/28/2025 urina lysis panel , auto Unknown Analyte 1.003 - 1.030 Not Available [facility] [address], [place], [address], 02/28/2025 14:04:51 02/29/20 25 02/28/2025 urina lysis panel , auto Unknown Analyte 5.0 Not Available [facility] [address], [place], [address], 02/28/2025 14:04:51 02/29/20 25 02/28/2025 urina lysis panel , auto Unknown Analyte 5.0 - 8.0 Not Available [facility] [address], [place], [address], 02/28/2025 14:04:51 02/29/20 25 02/28/2025 urina lysis panel , auto Unknown Analyte 75 Iveth/uL Not Available [facility] [address], [place], [address], 02/28/2025 14:04:51 02/29/20 25 02/28/2025 urina lysis panel , auto Unknown Analyte Negati ve Not Available [facility] [address], [place], [address], 02/28/2025 14:04:51 02/29/20 25 02/28/2025 urina lysis panel , auto Unknown Analyte Negati ve Not Available [facility] [address], [place], [address], 02/28/2025 14:04:51 02/29/20 25 02/28/2025 urina lysis panel , auto Unknown Analyte Negati ve Not Available [facility] [address], [place], [address], 02/28/2025 14:04:51 02/29/20 25 02/28/2025 urina lysis panel , auto Unknown Analyte Trace Not Available [facility] [address], [place], [address], 02/28/2025 14:04:51 02/29/20 25 02/28/2025 urina lysis panel , auto Unknown Analyte Negati ve Not Available [facility] [address], [place], [address], 02/28/2025 14:04:51 02/29/20 25 02/28/2025 urina lysis panel , auto Unknown Analyte >1000 mg/dL Not Available [facility] [address], [place], [address], 02/28/2025 14:04:51 02/29/20 25 02/28/2025 urina lysis panel , auto Unknown Analyte Normal Not Available [facility] [address], [place], [address], 02/28/2025 14:04:51 02/29/20 25 02/28/2025 urina lysis panel , auto Unknown Analyte Negati ve Not Available [facility] [address], [place], [address], 02/28/2025 14:04:51 02/29/20 25 02/28/2025 urina lysis panel , auto Unknown Analyte Negati ve Not Available [facility] [address], [place], [address], 02/28/2025 14:04:51 02/29/20 25 02/28/2025 urina lysis panel , auto Unknown Analyte Normal Not Available [facility] [address], [place], [address], 02/28/2025 14:04:51 02/29/20 25 02/28/2025 urina lysis panel , auto Unknown Analyte Normal Not Available [facility] [address], [place], [address], 02/28/2025 14:04:51 02/29/20 25 02/28/2025 urina lysis panel , auto Unknown Analyte 1 mg/dL Not Available [facility] [address], [place], [address], 02/28/2025 14:04:51 02/29/20 25 02/28/2025 urina lysis panel , auto Unknown Analyte Negati ve Not Available [facility] [address], [place], [address], 02/28/2025 14:04:51 02/29/20 25 02/28/2025 urina lysis panel , auto Unknown Analyte 50 Arslan/uL Not Available [facility] [address] [facility] [facility] [address], [place], [address], 02/28/2025 14:04:51 02/29/20 25 02/28/2025 urina lysis panel , auto Unknown Analyte Negati ve Not Available [facility] [address] [facility] [address], [place], [address], 02/28/2025 14:04:51 Result Notes None recorded. Problems No Known Problems Procedures Surgical History Date Name Laterality Status Provider Name and Address Organization Details Recorded Time 02/29/20 25 Lupron Administration completed Harleen Porfirio [facility] 02/28/2025 14:50:38 09/03/20 24 Lupron Administration completed Sadia Ndiaye [facility] 09/03/2024 13:10:22 Vasectomy completed Sadia Ndiaye [facility] 05/19/2024 15:50:09 procedure on knee completed Sadia Ndiaye [facility] 05/19/2024 15:52:15 mechanical prosthetic aortic valve replacement completed Tammy Curtis [facility] 05/21/2024 09:02:43 Imaging Results None recorded. [...] Updated DateTime 02/28/2025 187.96 cm 23.8 kg/m2 85072.59 g Harleen Monroy [facility] 02/28/2025 14:14:02 Social History Question Answer Notes LastModified by Organizat ion Details LastModified Time Tobacco Smoking Status Former Smoker cigarettes [facility] 05/19/2024 15:49:08 When Did You Quit Smoking? 18+yearssin taco perez 1997 [email or web address] Information not available 05/19/2024 What Was The Date Of Your Most Recent Tobacco Screening? 02/28/2025 [email or web address] Information not available 02/28/2025 What Is Your Relationship Status? Information not available 05/19/2024 How Much Tobacco Do You Smoke? No [email or web address] Information not available 05/19/2024 Has Tobacco Cessation Counseling Been Provided? No [email or web address] Information not available 05/19/2024 Sex: Male Functional Status Question Answer Note LastModified by Organizat ion Details LastModified Time Do you use any illicit or recreational drugs? No [email or web address] Information not available 05/19/2024 Do you or have you ever used any other forms of tobacco or nicotine? No Information not available 05/19/2024 What is your level of alcohol consumption? None [email or web address] Information not available 05/19/2024 Are you currently employed? No retired [email or web address] Information not available 05/19/2024 Mental Status None recorded. Family History Nothing Reported. Medical History Condition Response Sleep Apnea Y Past Encounters Encounter ID Performer Location Encounter Start Date Encounter Closed Date Diagnosis/Indication Diagnosis SNOMED-CT Code Diagnosis ICD10 Code Diagnosis Note [id number] FADY LAMB MD [facility] [address] [place] [address] 02/28/2025 13:16:41 02/28/2025 14:52:53 History of malignant neoplasm of prostate 140251663 Z85.46 He received a 6-month Eligard injection [...] Name 02/28/2025 1 [place] Martin Lezama [id number] Martin Lezama 02/28/2025 2 FOR LIFE () Martin Lezama [id number] Martin Lezama Notes Date Note Type Note [...] months. He now seeing Dr. Pappas in [place] as his primary care. FADY LAMB MD [facility] [place], [address], [facility] 02/28/2025 17:48:31
[2025-03-31 11:36] VITALS: BP 121/74; PULSE 63; RESP 18; O2SAT 94; BMI 25.0
--- NOTE | 2025-03-31 12:01 | EXP.PAIN.SOA ---
[facility] Disclaimer: The information contained in this section may have been updated after the patient was seen, as this information can be updated by other users. Medical History (Updated 03/31/25 @ 12:06 by Frances Wong APRN) Compression fracture of L3 vertebra Rheumatoid arthritis Compression fracture of L1 lumbar vertebra Low back pain Prostate CA Strain of lumbar paraspinal muscle Latent tuberculosis Abnormal EKG Sinus bradycardia HLD (hyperlipidemia) HTN (hypertension) shelter current use of anticoagulant Surgical History H/O mechanical aortic valve replacement Family History Other No significant family history Social History Smoking Status: Never smoker alcohol intake: never substance use type: denies use current occupational status: other Travel in the last 8 weeks?: None household members: spouse housing: house caffeine: Yes Have you lived/traveled outside US in past 30 days?: No Contact w/someone who lives/traveled outside US past 30 days?: No Exposure to someone with infectious disease in past 14 days?: No Do you have a fever (greater than 100.4 F or 38 C)?: No Have you tested positive for COVID-19?: No Exposed to someone with COVID-19 in past 14 days?: No Do you have a sore throat?: No Do you have a cough?: No Do you have any weakness?: No Do you have any diarrhea?: No Are you experiencing any unusual bleeding?: No Do you have any muscle aches/pain?: No Do you have any abdominal pain?: No Are you experiencing loss of taste or smell?: No PM Subjective & Objective Subjective Subjective:: Patient is a pleasant 79-year-old male who presents today for follow-up of his DEXA scan. Today he rates his pain a 5 out of 10. Patient just recently had a epidural injection on Friday and states he has already noticed improvement. He is stating he is still having some pain down further along the right side of his low back. Patient's does have a T12 and L3 compression fracture with the L3 being acute with edema still present on his MRI. Patient states that the pain is very bothersome and does interfere with his ability perform activities of daily living such as cooking and cleaning. Patient is currently on Villas from his primary care and methocarbamol from our office along with compounded cream. He does state these do help some. Patient states his pain is very positional and certain movements or postures do cause much more severe pain. Patient does state from our previous conversations that he is very interested in proceeding forward with the kyphoplasty procedure to limit additional loss of vertebral height. His Hugo has been reviewed and is appropriate. Review of Systems: General: No recent weight changes, no fever, no sleep disturbances Respiratory: No cough, no shortness of air, no recurring pulmonary infections Cardiovascular/peripheral vascular: No chest pain, no palpitations, no edema, no shortness of breath Gastrointestinal: No new onset incontinence, normal bowel movements reported Genitourinary: No new onset incontinence Musculoskeletal: Low back pain Psychiatric: [Normal mood/affect] Neurological: [Denies weakness in extremities], [denies balance issues] Pain at rest (0-10 scale): 5 Objective Objective:: Physical Exam: General: Alert and oriented x3, no acute distress, pleasant and cooperative Lungs: Respirations even and unlabored, symmetrical chest expansion Eyes: PERRL Musculoskeletal: Flexion and extension of lumbar [spine] somewhat guarded secondary to pain, [antalgic gait noted] Neurological: Speech clear, no gross sensory deficit Has patient had previous pain injection?: No Conservative treatment options previously tried: Home exercise plan Length of treatment: Longer than 12 weeks Meds Home Medications and Allergies Home Medications ?Medication ?Instructions ?Recorded ?Confirmed ?Type tamsulosin 0.4 mg capsule 0.8 mg PO DAILY 09/10/23 03/31/25 History dapagliflozin propanediol 10 mg See Rx Instructions .Route 03/29/24 03/31/25 Rx tablet .COMPLEX #90 tabs warfarin 4 mg tablet See Rx Instructions .Route 03/29/24 03/31/25 Rx .COMPLEX #120 tabs omeprazole 20 mg capsule,delayed 20 mg PO DAILY 06/21/24 03/31/25 History release oxybutynin chloride 10 mg 10 mg PO DAILY 09/23/24 03/31/25 History tablet,extended release 24 hr isoniazid 300 mg tablet 300 mg PO DAILY 11/01/24 03/31/25 History pyridoxine (vitamin B6) 100 mg 100 mg PO DAILY 11/01/24 03/31/25 History tablet leuprolide acetate (6 month) 45 mg 45 mg IM Q6 12/14/24 03/31/25 History intramuscular syringe kit (Lupron Depot) polyethylene glycol 3350 17 17 g PO DAILY 4 days #68 grams 12/14/24 03/31/25 Rx gram/dose oral powder (Miralax) vitamin B6-vitamin E-magnesium 1 tab PO DAILY 12/14/24 03/31/25 History tablet lisinopril 2.5 mg tablet 2.5 mg PO DAILY #90 tabs 12/20/24 03/31/25 Rx hydrochlorothiazide 25 mg tablet 25 mg PO DAILY #90 tabs 12/27/24 03/31/25 Rx abatacept 125 mg/mL subcutaneous 125 mg SQ .monthy 01/07/25 03/31/25 History auto-injector (Orencia ClickJect) calcitonin (salmon) 200 1 spray intranasal (ALT) DAILY 01/13/25 03/31/25 Rx unit/actuation nasal spray #3.7 mL calcium 600 mg (as See Rx Instructions PO BID #60 caps 01/13/25 03/31/25 Rx carbonate)-vitamin D3 12.5 mcg (500 unit) capsule (Calcium with Vit D3) prednisone 5 mg tablet 4 mg PO DAILY 01/20/25 03/31/25 History atenolol 50 mg tablet 50 mg PO DAILY BLOOD PRESSURE #90 02/28/25 03/31/25 Rx tabs enoxaparin 80 mg/0.8 mL 80 mg (0.8 mL) SQ .COMPLEX 15 days 03/17/25 03/31/25 Rx subcutaneous syringe (Lovenox) #12 mL glipizide 10 mg tablet 10 mg PO DAILY #90 tabs 03/22/25 03/31/25 Rx simvastatin 20 mg tablet 20 mg PO DAILY #90 tabs 03/22/25 03/31/25 Rx methocarbamol 750 mg tablet 750 mg PO TID #90 tabs 03/23/25 03/31/25 Rx hydrocodone 5 mg-acetaminophen 325 1 tab PO Q8H PRN pain #90 tabs 03/28/25 03/31/25 Rx mg tablet New Prescriptions to Start Prescriptions: Allergies Allergy/AdvReac Type Severity Reaction Status Date / Time No Known Allergies Allergy Verified 03/21/25 10:54 Assessment and Plan *Assessment and plan (1) Osteopenia: Status: Acute Category: Medical Code(s): M85.80 - Other specified disorders of bone density and structure, unspecified site (2) Compression fracture of L3 vertebra: Status: Acute Category: Medical Code(s): S32.030A - Wedge compression fracture of third lumbar vertebra, initial encounter for closed fracture Plan I did review ever with the patient regarding his DEXA scan that did show osteopenia. With that fact and along with the edema present on his MRI of the L3 compression fracture I do believe he would be a very beneficial candidate for a kyphoplasty. He continues to still have very limited range of motion of his lumbar spine with more point tenderness around the lower L3 compression fracture with radiating symptoms into his abdomen more prominent along the right side today. Risk and benefits were discussed with the patient and he would like to proceed forward with this plan of care. Due to the limited timeframe before the vertebra starts to heal and Dr. Negro not being here until mid April we will plan on submitting him for the kyphoplasty of L3 under fluoroscopy at our [facility] location. Patient did agree with this. We will plan on faxing over our current note to that office and follow-up with him when he returns. We did also discuss with him that there is the possibility of this can be done under local anesthetic as well as some anesthesia could be given at our clinic location. Patient will review over with Dr. Negro. Patient has tried and failed conservative therapy including oral medication, heat and ice, topicals, previous physical therapy and continued at home stretching exercise for longer than 6 weeks. Patient does have a longstanding history of radiation treatment related to his prostate cancer which I do believe played a significant role in his osteopenia and ultimate reason behind his compression fractures. Patient did also have a compression fracture of T12 however there was not as significant edema still present at this location. We did also review the fact that he is on blood thinners written by Dr. Garcia office that we will have to reach out to them again and confirm that he can either stop this medication or do the Lovenox bridge. He agrees with this option. Patient has been instructed to contact the clinic with any concerns before the next appointment. Dr. Negro has reviewed this note and agrees with this plan of care. This note was dictated using voice recognition software and make contain errors or omissions. All injections are used with Lidocaine, Bupivacaine and dexamethasone. Occasionally urine drug screen is needed to verify patient's compliance with our office pain contract. This is ordered based off specific treatments related to chronic pain with the potential to abuse certain medications.
== END 2025-03-31 23:59 | disposition home or self-care (01) ==
LOC: SC.PAIN 11:28
PROVIDERS: PCP Family Medicine; Visit Provider Nurse Practitioner Family
DX: M85.80 Other specified disorders of bone density and structure, unspecified site (principal); S32.030A Wedge compression fracture of third lumbar vertebra, initial encounter for closed fracture; X58.XXXA Exposure to other specified factors, initial encounter; Y93.9 Activity, unspecified; Y92.9 Unspecified place or not applicable
CPT/HCPCS: 99212; G0463

== ENCOUNTER 2025-04-14 14:33 | Outpatient (POV) | payer MEDICARE, OTHER, SELFPAY ==
--- OUTSIDE RECORDS SUMMARY | 2025-04-14 14:37 | XMS_ITS | Clinical Summary ---
Author Organization [employer] ([place], [place], [place], [place]) Address [address] [place] [address] Care Team Providers Care Pediatric Lpn Name Role Phone Tristan Billings DO Primary Care Provider [phone] Allergies No known active allergies Medications glipiZIDE [...] any time in the past 12 [facility], were you homeless or living in a [...] living situation today? I have a [facility] place to live 08/10/2024 Think about [...] Do you speak a language other than [place] at [facility]? No 08/10/2024 Do you want [...] Advance Directives For more information, please contact: [phone] Documents on File Type Date Recorded Patient Block Mason Expl anation Advance Directives and Living Will 08/10/2024 * Full Code (Latest Code Status on File) Date Activated Date Inactivated Comments 08/10/2024 2:42 PM 08/15/2024 4:37 PM Care Teams Pediatric Lpn Relationship Specialty Start Date End Date Tristan Billings DO PCP - General Internal Medicine 08/10/24
--- OUTSIDE RECORDS SUMMARY | 2025-04-14 14:37 | XMS_ITS | Referral Summary ---
Author Organization [employer] ([place], [place], [place], [place]) Address [address] [place] [address] Care Team Providers Care Spacecraft Systems Engineer Name Role Phone Tristan Billings DO Primary Care Provider [phone] Allergies No known active allergies Medications glipiZIDE [...] were you homeless or living in a [facility] (including now)? No 08/14/2024 Utilities Answer Date Recorded In the past 12 months, has t he electric, gas, oil, or water company threatened to shut off services in your home? No 08/10/2024 Interpersonal Safety Answer Date Record ed How often does anyone, [place] family and friends, physically hurt you? [...] Do you speak a language other than [place]z at [facility]? 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
--- OUTSIDE RECORDS SUMMARY | 2025-04-14 14:37 | XMS_ITS | Clinical Summary ---
Author Organization [facility] Address [address] [place] [address] Care Team Providers Care Rf Manager Name Role Phone ManuelitoTristan Primary Care Provider [phone] Allergies Active Allergy Reactions Criticality Noted Date [...] Description 06/27/2025 12:30 PM EDT Office Visit [facility] [address] [place] [address] 06/27/2025 1:30 PM EDT Office Visit [facility] [address] [place] [address] Justen Jaimes MD [address] [place] [address] Health Maintenance Due Date Last Done Comments [facility]-Hepatitis C Screening 1945 [facility]-Medicare Annual Wellness (AWV) 1945 [facility]-Infant/Child/Adol SDOH Screenings 1945 [facility]-Obesity Intervention 1953 [facility]- SDOH Screenings 1965 [facility]-Adult SDOH Screenings 1965 [facility]-Pneumococcal Vaccine: 50 + Years (1 of 2 - PCV) 1966 [facility]-Zoster Vaccines (1 of 2) 1966 [facility]-DTaP,Tdap,and Td Vaccine s (1 - Tdap) 07/25/2010 07/24/2010 [id number] Vaccine (3 - Moderna risk series) 12/20/2020 [...] age to complete this [place] [address] [facility] Care Teams Rf Manager Relationship Specialty Start Date End Date Tristan Billings DO [address] [place] [address] [place] [id number] PCP - General 09/13/24
[2025-04-14 14:48] VITALS: BP 112/65; PULSE 69; RESP 18; O2SAT 93; BMI 24.3
--- NOTE | 2025-04-14 15:05 | EXP.PAIN.SOA ---
[facility] Disclaimer: The information contained in this section may have been updated after the patient was seen, as this information can be updated by other users. 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 Surgical History H/O mechanical aortic valve replacement Family History Other No significant family history Social History Smoking Status: Never smoker alcohol intake: never substance use type: denies use current occupational status: other Travel in the last 8 weeks?: None household members: spouse housing: house caffeine: Yes Have you lived/traveled outside US in past 30 days?: No Contact w/someone who lives/traveled outside US past 30 days?: No Exposure to someone with infectious disease in past 14 days?: No Do you have a fever (greater than 100.4 F or 38 C)?: No Have you tested positive for COVID-19?: No Exposed to someone with COVID-19 in past 14 days?: No Do you have a sore throat?: No Do you have a cough?: No Do you have any weakness?: No Do you have any diarrhea?: No Are you experiencing any unusual bleeding?: No Do you have any muscle aches/pain?: No Do you have any abdominal pain?: No Are you experiencing loss of taste or smell?: No PM Subjective & Objective Subjective Subjective:: Patient is a pleasant 79-year-old male who presents today for follow-up. He rates his pain today as 7 out of 10. He denies any new trauma or injury. Patient is still having pain related to his compression fracture at the L3. Patient does state that it radiates all across his low back and into his abdomen. Patient was being sent to the [place] office to have a kyphoplasty done. He states he is scheduled for April 20 however this appointment is just to talk to Dr. Negro regarding the procedure. Patient does state that he was really hoping to go ahead and get this taken care of. Patient is still having to rely on his pain medicine from an outside provider along with the methocarbamol and compounded cream from our office. Patient did get prescribed a back brace however it was too bulky and he has been using a copper infused back brace with some improvement. Patient did previously have his epidural that did help however has not lasted. His Hugo has been reviewed and is appropriate. Review of Systems: General: No recent weight changes, no fever, no sleep disturbances Respiratory: No cough, no shortness of air, no recurring pulmonary infections Cardiovascular/peripheral vascular: No chest pain, no palpitations, no edema, no shortness of breath Gastrointestinal: No new onset incontinence, normal bowel movements reported Genitourinary: No new onset incontinence Musculoskeletal: Low back pain Psychiatric: [Normal mood/affect] Neurological: [Denies weakness in extremities], [denies balance issues] Pain at rest (0-10 scale): 7 Objective Objective:: Physical Exam: General: Alert and oriented x3, no acute distress, pleasant and cooperative Lungs: Respirations even and unlabored, symmetrical chest expansion Eyes: PERRL Musculoskeletal: Flexion and extension of lumbar [spine] somewhat guarded secondary to pain, [antalgic gait noted] Neurological: Speech clear, no gross sensory deficit Has patient had previous pain injection?: No Conservative treatment options previously tried: Home exercise plan Length of treatment: Longer than 12 weeks Meds Home Medications and Allergies Home Medications ?Medication ?Instructions ?Recorded ?Confirmed ?Type tamsulosin 0.4 mg capsule 0.8 mg PO DAILY 09/10/23 04/14/25 History dapagliflozin propanediol 10 mg See Rx Instructions .Route 03/29/24 04/14/25 Rx tablet .COMPLEX #90 tabs warfarin 4 mg tablet See Rx Instructions .Route 03/29/24 04/14/25 Rx .COMPLEX #120 tabs omeprazole 20 mg capsule,delayed 20 mg PO DAILY 06/21/24 04/14/25 History release oxybutynin chloride 10 mg 10 mg PO DAILY 09/23/24 04/14/25 History tablet,extended release 24 hr leuprolide acetate (6 month) 45 mg 45 mg IM Q6 12/14/24 04/14/25 History intramuscular syringe kit (Lupron Depot) polyethylene glycol 3350 17 17 g PO DAILY 4 days #68 grams 12/14/24 04/14/25 Rx gram/dose oral powder (Miralax) lisinopril 2.5 mg tablet 2.5 mg PO DAILY #90 tabs 12/20/24 04/14/25 Rx hydrochlorothiazide 25 mg tablet 25 mg PO DAILY #90 tabs 12/27/24 04/14/25 Rx abatacept 125 mg/mL subcutaneous 125 mg SQ .monthy 01/07/25 04/14/25 History auto-injector (Orencia ClickJect) calcium 600 mg (as See Rx Instructions PO BID #60 caps 01/13/25 04/14/25 Rx carbonate)-vitamin D3 12.5 mcg (500 unit) capsule (Calcium with Vit D3) prednisone 5 mg tablet 4 mg PO DAILY 01/20/25 04/14/25 History atenolol 50 mg tablet 50 mg PO DAILY BLOOD PRESSURE #90 02/28/25 04/14/25 Rx tabs enoxaparin 80 mg/0.8 mL 80 mg (0.8 mL) SQ .COMPLEX 15 days 03/17/25 04/14/25 Rx subcutaneous syringe (Lovenox) #12 mL glipizide 10 mg tablet 10 mg PO DAILY #90 tabs 03/22/25 04/14/25 Rx simvastatin 20 mg tablet 20 mg PO DAILY #90 tabs 03/22/25 04/14/25 Rx methocarbamol 750 mg tablet 750 mg PO TID #90 tabs 03/23/25 04/14/25 Rx hydrocodone 5 mg-acetaminophen 325 1 tab PO Q8H PRN pain #90 tabs 03/28/25 04/14/25 Rx mg tablet New Prescriptions to Start Prescriptions: Allergies Allergy/AdvReac Type Severity Reaction Status Date / Time No Known Allergies Allergy Verified 04/06/25 13:53 Assessment and Plan *Assessment and plan (1) Lumbar compression fracture: Status: Acute Category: Medical Code(s): S32.000A - Wedge compression fracture of unspecified lumbar vertebra, initial encounter for closed fracture (2) Lumbar radiculopathy: Status: Acute Category: Medical Code(s): M54.16 - Radiculopathy, lumbar region (3) Osteopenia: Status: Acute Category: Medical Code(s): M85.80 - Other specified disorders of bone density and structure, unspecified site (4) Compression fracture of L3 vertebra: Status: Acute Category: Medical Code(s): S32.030A - Wedge compression fracture of third lumbar vertebra, initial encounter for closed fracture Plan I did discuss with the patient to still continue to take his methocarbamol and do the compounded cream in addition to his pain medication from his primary care. I did discuss with him that we would be following up with him following the kyphoplasty here at the [place] location. Patient was counseled that we will give him an appointment today however to please reach out to our office if something changes between now and then. Patient agrees with this plan of care. Patient has been instructed to contact the clinic with any concerns before the next appointment. Dr. Negro has reviewed this note and agrees with this plan of care. This note was dictated using voice recognition software and make contain errors or omissions. All injections are used with Lidocaine, Bupivacaine and dexamethasone. Occasionally urine drug screen is needed to verify patient's compliance with our office pain contract. This is ordered based off specific treatments related to chronic pain with the potential to abuse certain medications.
== END 2025-04-14 23:59 | disposition home or self-care (01) ==
LOC: SC.PAIN 14:35
PROVIDERS: PCP Family Medicine; Visit Provider Nurse Practitioner Family
DX: S32.030A Wedge compression fracture of third lumbar vertebra, initial encounter for closed fracture (principal); M54.16 Radiculopathy, lumbar region; M85.80 Other specified disorders of bone density and structure, unspecified site; X58.XXXA Exposure to other specified factors, initial encounter; Y93.9 Activity, unspecified; Y92.9 Unspecified place or not applicable
CPT/HCPCS: 99212; G0463

== ENCOUNTER 2025-04-27 12:16 | Outpatient (CLI) | payer MEDICARE, OTHER, SELFPAY ==
--- OUTSIDE RECORDS SUMMARY | 2025-04-27 12:19 | XMS_ITS | Clinical Summary ---
Author Organization [employer] ([place], [place], [place], [place]) Address [address] [place] [address] Care Team Providers Care Tubing Drier Name Role Phone Tristan Billings DO Primary Care Provider [phone] Allergies No known active allergies Medications glipiZIDE [...] time in the past 12 m [facility], were you homeless or living in a [...] living situation today? I have a [facility] place to live 08/10/2024 Think [...] Do you speak a language other than Azeri at [facility]? No 08/10/2024 Do you want help with [...] Advance Directives For more information, please contact: [phone] Documents on File Type Date Recorded Patient Straightener Hand Expl anation Advance Directives and Living Will 08/10/2024 * Full Code (Latest Code Status on File) Date Activated Date Inactivated Comments 08/10/2024 2:42 PM 08/15/2024 4:37 PM Care Teams Tubing Drier Relationship Specialty Start Date End Date Tristan Billings DO PCP - General Internal Medicine 08/10/24
--- OUTSIDE RECORDS SUMMARY | 2025-04-27 12:19 | XMS_ITS | Referral Summary ---
Author Organization [employer] ([place], [place], [place], [place]) Address [address] [place] [address] Care Team Providers Care Architectural Design Lecturer Name Role Phone Tristan Billings DO Primary Care Provider [phone] Allergies No known active allergies Medications glipiZIDE [...] any time in the past 12 m [facility], were you homeless or [...] Do you speak a language other than Georgian at [facility]? 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
--- OUTSIDE RECORDS SUMMARY | 2025-04-27 12:19 | XMS_ITS | Clinical Summary ---
Author Organization [facility] Address [address] [place] [address] Care Team Providers Care Treatment Specialist Name Role Phone ManuelitoTristan Primary Care Provider [phone] Allergies Active Allergy Reactions Criticality Noted Date [...] Description 06/27/2025 12:30 PM EDT Office Visit [facility] [address] [place] [address] 06/27/2025 1:30 PM EDT Office Visit [facility] [address] [place] [address] Justen Jaimes MD [address] [place] [address] Health Maintenance Due Date Last Done Comments [facility]-Hepatitis C Screening 1945 [facility]-Medicare Annual Wellness (AWV) 1945 [facility]-Infant/Child/Adol SDOH Screenings 1945 [facility]-Obesity Intervention 1953 [facility]- SDOH Screenings 1965 [facility]-Adult SDOH Screenings 1965 [facility]-Pneumococcal Vaccine: 50 + Years (1 of 2 - PCV) 1966 [facility]-Zoster Vaccines (1 of 2) 1966 [facility]-DTaP,Tdap,and Td Vaccine s (1 - Tdap) 07/25/2010 07/24/2010 [id number] Vaccine (3 - Moderna risk series) 12/20/2020 [...] age to complete this topic [place] [address] [facility] Care Teams Treatment Specialist Relationship Specialty Start Date End Date Tristan Billings DO [address] [place] [address] [place] [id number] PCP - General 09/13/24
[2025-04-27 13:10] LABS: INR 1.14 (0.9-1.1); Prothrombin Time 12.5 seconds (10.1-12.5)
[2025-04-27 14:09] LABS: Prostate Specific Ag, Diagnost 0.347 ng/ml (0.0-4.0)
== END 2025-04-27 23:59 | disposition home or self-care (01) ==
PROVIDERS: PCP Family Medicine; Visit Provider Radiology Radiation Oncology
DX: Z01.812 Encounter for preprocedural laboratory examination (principal); C61 Malignant neoplasm of prostate; C79.01 Secondary malignant neoplasm of right kidney and renal pelvis
CPT/HCPCS: 36415; 84153; 85610

== ENCOUNTER 2025-05-09 09:28 | Outpatient (POV) | payer MEDICARE, OTHER, SELFPAY ==
--- OUTSIDE RECORDS SUMMARY | 2025-04-28 17:19 | XMS_ITS | Encounter Summary ---
Author Organization [facility] Address [address] [place] [address] Care Team Providers Care Public Health Physician Name Role Phone Provider, No Known Primary Care Provider Unavail able Reason for Visit * Reason Comments Post-op Problem * Auth/Cert (Routine) Specialty Diagnoses / Procedures Referred By John olson Referred To Contact Diagnoses Anesthesia complication Referral ID Status Reason Start Date Expiration Date Visits Re quested Visits Authorized [id number] 1 1 Encounter Details Date Type Department Care Team (Late st Contact Info) Description 04/28/2025 5:19 PM EDT - 04/29/2025 3:55 PM EDT Hospital Encounter [facility] [phone] Serafin Villalpando MD [address] [place] [phone] Fred Walls MD [address] [place] [phone] Clementina Mroeno MD [address] [place] [phone] Hypoxia (Primary Dx); Generalized weakness; Elevated troponin Discharge Disposition: Home or Self Care Social History Tobacco Use Types Packs/Day Years Used Date Smoking Tobacco: Former Cigarettes Q uit: 1996 Smokeless Tobacco: Never Tobacco Cessation:Counseling Given: No Alcohol Use Standard Drinks/Week Comments Not Currently 0 (1 standard drink = 0.6 oz pur e alcohol) AUDIT-C Answer Date Recorded Q1: How often do you have a drink containing alcohol? Never 04/28/2025 Q2: How many drinks containi ng alcohol do you have on a typical day when you are drinking? Patient does not drink Q3: How often do you have si x or more drinks on one occasion? Never 04/28/2025 Abuse Screen Answer Date Recorded Feels Unsafe at Home or Work/School no 04/28/2025 Feels Threatened by Someone no 04/15 Does Anyone Try to Keep You From Having Contact with Others or Doing Things Outside Your Home? no 04/28/2025 Physical Signs of Abuse Present no 04/28/2025 Housing Stability Answer Date Recorded Current Living Arrangements home 04/15 Potentially Unsafe Housing Conditions Not on isha e 04/29/2025 Family and Community Support Answer Charlie e Recorded Help with Day-to-Day Activities Not on file 06/23/2023 Lonely or Isolated Not on file 06/23/2023 Employment Answer Date Recorded Do you want help finding or keeping work or a antonia b? Not on file 06/23/2023 Disabilities Answer Date Recorded Difficulty Concentrating, Remembering or Making Decisions no 04/28/2025 Difficulty Managing Errands Independently yes 04/28/2025 Education Answer Date Recorded Help with school or training? Not on file Preferred Language Not on file 06/23/2023 Sex and Gender Information Value Date Recorded Sex Assigned at Not on file Legal Sex Male 11:09 AM EDT Gender Identity Not on file Sexual Orientation Not on file documented as of this encounter Last Filed Vital Signs Vital Sign Reading Time Taken Comments Blood Pressure 136/75 04/29/2025 10:18 AM EDT Pulse 59 04/29/2025 5:36 AM EDT Temperature 36.8 C (98.2 F) 04/29/2025 10:18 AM EDT Respiratory Rate 18 04/29/2025 10:1 8 AM EDT Oxygen Saturation 93% 04/29/2025 10: 18 AM EDT Inhaled Oxygen Concentration - - Weight 86.1 kg (189 lb 13.1 oz) 025 11:16 PM EDT Height 188 cm (6' 2 ) 04/28/2025 10:30 PM EDT Body Mass Index 24.37 04/28/2025 10:30 PM EDT documented in this encounter Functional Status * Calculated C-SSRS Risk Score (Lifetime/Recent) Answer Date of Assessment Author No Risk Indicated 04/28/2025 11:28 PM EDT Celia Marshall RN * [place] Suicide Severity Rating Scale (Screener/Recent Self-Report) Question Answer Date of Assessment Author 1. Wish to be (Past 1 Month) No 5:36 PM EDT Raghavendra Sidhu RN 2. Non-Specific Active Suici cale Thoughts (Past 1 Month) No 04/28/2025 5:36 PM EDT Raghavendra Sidhu RN 6. Suicidal Behavior (Lifetime) No 11:28 PM EDT Celia Marshall RN documented as of this encounter Discharge Summaries * Case, KOSTAS Satnley - 04/29/2025 9:10 AM EDT Images from the original note were not included. [facility] Medicine Services DISCHARGE SUMMARY Patient Name: Martin Lezama : 1945 Date of Admission: 04/28/2025 5:19 PM Date of Discharge: 04/29/2025 Primary Care Physician: Provider, No Known Consults No orders found for last 30 day(s). Hospital Course Presenting Problem: Anesthesia complication Active Hospital Problems Diagnosis POA Anesthesia complication [T88.59XA] Yes Closed compression fracture of L3 lumbar vertebra, sequela [S32.030S] Not Applicable Acute respiratory failure with hypoxia [J96.01] Unknown Prostate cancer [C61] Unknown Type 2 diabetes mellitus [E11.9] Unknown HTN (hypertension) [I10] Unknown HLD (hyperlipidemia) [E78.5] Unknown Rheumatoid arthritis involving multiple sites [M06.9] Unknown Aortic valve replaced [Z95.2] Not Applicable TB lung, latent [Z22.7] Unknown Resolved Hospital Problems No resolved problems to display. Hospital Course: Martin Lezama is a 79 y.o. male with PMHx prostate cancer (completed 40 rounds of radiation November2024, on Lupron every 6 months), VHDz/mechanical AVR(1997, on Coumadin), hypertension, diabetes type 2, rheumatoid arthritis, hyperlipidemia, latent TB (s/p 9 months of Isoniazid). Patient underwent L3 kyphoplasty per Dr. Negro at pain management clinic on [address] 04/28/25. His son reports th at he was told that the patient was not breathing and required intubation and bagging for an unknown amount of time after surgery. EMS was called and patient was transported to [facility] on a nonrebreather. Chest x-ray obtained in ED was negative for acute process. He was alert with no signs of respiratory distress. Denies any recent illness or respiratory symptoms, fever, chills, cough, n/v/d. He was admitted to hospital medicine for further observation. PT/OT consulted with patient following morning with recent surgery and provided recommendations for activity moving forward.He continued to report no chest pain, no dyspnea and discharge orders placed 04/29/2025. Anesthesia complication Closed compression fx of L3 s/p L3 Kyphoplasty 04/28/2025 Acute respiratory failure with hypoxia -Reportedly stopped breathing requiring intubation and bagging per son's report -Maintaining sats on RA. VBG reassuring. CXR is WNL. -PT, OT consulted; had been given a back brace for use with vigorous activities- he reports he was given no restrictions other than take it easy Elevated troponin -Denies chest pain, no acute EKG findings. -Likely type II with respiratory bagging/intubation. -Repeat Troponin trending downward. Prostate cancer -Completed radiation in November -Lupron every 6 months, last dose in February 2025 -Continue Flomax, Ditropan -Outpatient f/u as scheduled DM2 -Managed on Farxiga and Glipizide HTN -Continue Atenolol and Lisinopril HLD -Continue statin RA -Continue prednisone taper, reports last dose of 1 mg is 04/30/25 -PPI prophylaxis -Outpatient follow up; Orencia every 4 weeks, due 05/10/25 Aortic valve replacement, on Coumadin -Bridged at home before surgery with 80 mg Lovenox BID, continue -PT/INR pharmacy consult- was instructed to start back 5mg Coumadin 04/28/25 -INR goal = 2.5-3.5, 1.03 on admission -CBC with PCP next week. TB lung, latent -S/P 9 months treatment with Isoniazid per ID -Monitor -Negative chest x-ray on admission Discharge Follow Up Recommendations for outpatient labs/diagnostics: 1. Follow up with Dr. Negro as previously scheduled. 2. Follow up with PCP regarding INR. CBC next week. Day of Discharge HPI: Awake in bed. Reports feeling great from a back pain standpoint. Denies SOA, dyspnea, pain or discomfort. States he has no history of complications with anesthesia. Review of Systems Constitutional: Negative for activity change, chills and fever. Respiratory: Negative for cough, choking, shortness of breath, wheezing and stridor. Cardiovascular: Negative for chest pain. Musculoskeletal: Positive for back pain. Negative for gait problem. Neurological: Negative for dizziness, speech difficulty, light-headedness and numbness. All other systems reviewed and are negative. Vital Signs: Temp: [97.7 ??F (36.5 ??C)-98.2 ??F (36.8 ??C)] 98.2 ??F (36.8 ??C) Heart Rate: [56-70] 59 Resp: [16-18] 18 BP: (122-165)/(52-86) 136/75 Flow (L/min) (Oxygen Therapy): [2] 2 Physical Exam: Constitutional: No acute distress, awake, alert HENT: NCAT, mucous membranes moist. Glasses Respiratory: Clear to auscultation bilaterally, respiratory effort normal Cardiovascular: RRR, no murmurs, rubs, or gallops. + Click Gastrointestinal: Positive bowel sounds, soft, nontender, nondistended Musculoskeletal: No bilateral ankle edema Psychiatric: Appropriate affect, cooperative Neurologic: Oriented x 3, strength symmetric in all extremities, Cranial Nerves grossly intact to confrontation, speech clear Skin: No rashes Pertinent and/or Most Recent Results LAB RESULTS: Lab 04/29/25 04304/28/25 1733 WBC 7.99 5.30 HEMOGLOBIN 8.7* 10.3* HEMATOCRIT 28.5* 33.3* PLATELETS 252 245 NEUTROS ABS -- 3.82 IMMATURE GRANS (ABS) -- 0.07* LYMPHS ABS -- 0.55* MONOS ABS -- 0.40 EOS ABS -- 0.42* MCV 92.2 92.5 PROTIME 15.2 14.2 Lab 04/29/25 0430 04/28/25 1733 SODIUM 139 140 POTASSIUM 3.7 4.0 CHLORIDE 103 103 CO2 26.0 27.0 ANION GAP 10.0 10.0 BUN 18.7 18.5 CREATININE 0.86 0.90 EGFR 89.2 88.0 GLUCOSE 123* 124* CALCIUM 9.1 9.1 Lab 04/29/25 0430 04/28/25 1733 TOTAL PROTEIN 6.0 6.6 ALBUMIN 3.9 4.3 GLOBULIN 2.1 2.3 ALT (SGPT) 33 33 AST (SGOT) 28 34 BILIRUBIN 0.4 0.5 ALK PHOS 70 82 Lab 04/29/25 1234 04/29/25 0430 04/28/25 1859 04/28/25 1733 PROBNP -- -- -- 420.5 HSTROP T 27* 42* 25* 15 PROTIME -- 15.2 -- 14.2 INR -- 1.13* -- 1.03 Lab 04/28/25 2046 FIO2 24 CARBOXYHEMOGLOBIN (VENOUS) 1.6 Brief Urine Lab Results None Microbiology Results (last 10 days) No results found for the last 240 hours. XR Chest 1 View Result Date: 04/28/2025 XR CHEST 1 VW Date of Exam: 04/28/2025 5:54 PM EDT Indication: sob. Comparison: None available. Findings: Reticular opacity is evident bilaterally. Patient is undergone median sternotomy and valve replacement. Heart is mildly enlarged Aorta is calcified. Impression: No acute cardiopulmonary disease. Electronically Signed: Connor Hall MD 04/28/2025 6:26 PM EDT Workstation ID: [id number] Plan for Follow-up of Pending Labs/Results: No pending results. Discharge Details Discharge Medications Continue These Medications Instructions Start Date atenolol 50 MG tablet Commonly known as: TENORMIN 50 mg, Daily dapagliflozin 5 MG tablet tablet Commonly known as: FARXIGA 10 mg, Daily enoxaparin sodium 80 MG/0.8ML solution prefilled syringe syringe Commonly known as: LOVENOX 80 mg, Every 12 Hours Scheduled glipizide 10 MG tablet Commonly known as: GLUCOTROL 10 mg, Daily hydroCHLOROthiazide 25 MG tablet 25 mg, Daily HYDROcodone-acetaminophen 5-325 MG per tablet Commonly known as: NORCO 1 tablet, Every 8 Hours PRN lisinopril 2.5 MG tablet Commonly known as: PRINIVIL,ZESTRIL 2.5 mg, Daily methocarbamol 750 MG tablet Commonly known as: ROBAXIN 750 mg, 3 Times Daily omeprazole 20 MG capsule Commonly known as: priLOSEC 20 mg, Daily oxybutynin XL 10 MG 24 hr tablet Commonly known as: DITROPAN-XL 10 mg, Daily predniSONE 1 MG tablet Commonly known as: DELTASONE 1 mg, Daily simvastatin 20 MG tablet Commonly known as: ZOCOR 20 mg, Nightly tamsulosin 0.4 MG capsule 24 hr capsule Commonly known as: FLOMAX 1 capsule, Daily warfarin 4 MG tablet Commonly known as: COUMADIN 4 mg, Daily Warfarin No Known Allergies Discharge Disposition: Home in stable condition Diet: Diet Order Procedures Diet: Cardiac, Diabetic; Healthy Heart (2-3 Na+); Consistent Carbohydrate; Fluid Consistency: Thin (IDDSI 0) Standing Status: Standing Number of Occurrences: 1 Diets:: Cardiac Diets:: Diabetic Cardiac Diet:: Healthy Heart (2-3 Na+) Diabetic Diet:: Consistent Carbohydrate Fluid Consistency:: Thin (IDDSI 0) Activity: As tolerated, per PT recommendations. Restrictions or Other Recommendations: N/A CODE STATUS: Code Status and Medical Interventions: CPR (Attempt to Resuscitate); Full Support Ordered at: 04/28/25 2140 Code Status (Patient has no pulse and is not breathing): CPR (Attempt to Resuscitate) Medical Interventions (Patient has pulse or is breathing): Full Support No future appointments. KOSTAS Junior 04/29/25 Time Spent on Discharge: I spent 50 minutes on this discharge activity which included: [id number] with the patient, reviewing the data in the system, coordination of the care with the nursing staff as well as consultants, documentation, and entering orders. Cosigned by Clementina Moreno MD at 04/29/2025 6:13 PM EDT Associated attestation - Clementina Moreno MD - 04/29/2025 6:13 PM EDT I have reviewed this documentation and agree. documented in this encounter Medications at Time of Discharge atenolol (TENORMIN) 50 MG tablet Take 1 tablet by mouth Daily. dapagliflozin (FARXIGA) 5 MG tablet tablet Take 2 tablets by mouth Daily. enoxaparin sodium (LOVENOX) 80 MG/0.8ML solution prefilled syringe syringe Inject 0.8 mL under the skin into the appropriate area as directed Every 12 (Twelve) Hours. glipizide (GLUCOTROL) 10 MG tablet Take 1 tablet by mouth Daily. hydroCHLOROthiaz tania 25 MG tablet Take 1 tablet by mouth Daily. HYDROcodone-acet aminophen (NORCO) 5-325 MG per tablet Take 1 tablet by mouth Every 8 (Eight) Hours As Needed for Mild Pain or Moderate Pain. lisinopril (PRINIVIL,ZESTRI L) 2.5 MG tablet Take 1 tablet by mouth Daily. methocarbamol (ROBAXIN) 750 MG tablet Take 1 tablet by mouth 3 (Three) Times a Day. omeprazole (priLOSEC) 20 MG capsule Take 1 capsule by mouth Daily. oxybutynin XL (DITROPAN-XL) 10 MG 24 hr tablet Take 1 tablet by mouth Daily. predniSONE (DELTASONE) 1 MG tablet Take 1 tablet by mouth Daily. Last dose scheduled to be 04/30/2025 simvastatin (ZOCOR) 20 MG tablet Take 1 tablet by mouth Every Night. tamsulosin (FLOMAX) 0.4 MG capsule 24 hr capsule Take 1 capsule by mouth Daily. warfarin (COUMADIN) 4 MG tablet Take 1 tablet by mouth Daily. documented as of this encounter Progress Notes * Basia Waters, PharmD - 04/28/2025 10:04 PM EDT Pharmacy Consult - Warfarin Dosing Martin Lezama is a 79 y.o. male receiving warfarin therapy. Consulting Provider: ED Provider Indication: Mechanical valve replacement Goal INR: 2.5 - 3.5 Home Regimen: Warfarin 4 mg once daily Bridge Therapy: No Drug-Drug Interactions with current regimen: Home medications Glipizide: Vitamin K Antagonists may increase hypoglycemic effects of Sulfonylureas Omeprazole: Monitor for increased vitamin K antagonist effects Prednisone: may increase anticoagulant effects of Vitamin K Antagonists Simvastatin: HMG-CoA Reductase Inhibitors (Statins) may increase anticoagulant effects of Vitamin KAntagonists HCTZ: Thiazide and Thiazide-Like Diuretics may decrease anticoagulant effects of Vitamin K Antagonists Warfarin Dosing During Admission: Date 04/28 INR 1.03 Dose 5 mg Education Provided: Floor pharmacist to provide. Discharge Follow-Up: Outpatient Following Provider - n/a Follow-Up Recommendation - Floor pharmacist to assess. Labs: Results from last 7 days Lab Units 04/28/25 1733 INR 1.03 HEMOGLOBIN g/dL 10.3* HEMATOCRIT % 33.3* Results from last 7 days Lab Units 04/28/25 1733 SODIUM mmol/L 140 POTASSIUM mmol/L 4.0 CHLORIDE mmol/L 103 CO2 mmol/L 27.0 BUN mg/dL 18.5 CREATININE mg/dL 0.90 CALCIUM mg/dL 9.1 BILIRUBIN mg/dL 0.5 ALK PHOS U/L 82 ALT (SGPT) U/L 33 AST (SGOT) U/L 34 GLUCOSE mg/dL 124* Current dietary intake: No active diet order Assessment/Plan: Pharmacy to dose warfarin for a mechanical valve. INR goal of 2.5-3.5. Patient has held warfarin since 04/23 for procedure. INR subtherapeutic today at 1.03. Will give increased dose of 5 mg of warfarin tonight. Continue to monitor. Basia Waters, Gabe 04/28/2025 21:50 EDT documented in this encounter H&P Notes * Fred Walls MD - 04/28/2025 9:26 PM EDT Images from the original note were not included. [facility] Medicine Services HISTORY AND PHYSICAL Attending Admission Attestation I have performed an independent dooy-bb-bjob diagnostic evaluation including performing an independent physical examination. I approve of the documented plan of care above that was reviewed and developed with the advanced medical malpractice paralegal (APC) and take responsibility for that plan along with itsassociated risks. I have updated the HPI as appropriate. Brief HPI 79 year old admitted for monitoring following hypoxic event after MAC anesthesia, now improved. Attending Physical Exam: Temp: [97.7 ??F (36.5 ??C)-98.2 ??F (36.8 ??C)] 97.7 ??F (36.5 ??C) Heart Rate: [56-70] 68 Resp: [16-18] 16 BP: (122-165)/(69-86) 145/70 Flow (L/min) (Oxygen Therapy): [2] 2 AAOX3 Comfortable MMM Heart RRR Lungs CTAB Abd soft, nontender No peripheral edema Result Review: I have personally reviewed the results from the time of this admission to 04/29/2025 04:38 EDT and agree with these findings: [x] Laboratory list / accordion [] Microbiology [x] Radiology [x] EKG/Telemetry [] Cardiology/Vascular [] Pathology [x] Old records [] Other: Most notable findings include: see A+P Assessment and Plan: Suspect aspiration event or difficulty clearing sedatives. Much better now. Still on 1-2L. Hx SARKIS but no longer uses CPAP after he lost weight. CXR nonacute. IS, wean O2, monitor On warfarin for mechanical valve, bridged with lovenox, PCP manages outside of hospital. INR goal 2.5-3.5 See assessment and plan documented by APC above and updated/edited by me as appropriate. Fred Walls MD 04/29/25 Patient Name: Martin Lezama : 1945 Primary Care Physician: Provider, No Known Date of admission: 04/28/2025 Subjective Subjective Chief Complaint: Hypoxia after anesthesia HPI: Martin Lezama is a 79 y.o. male with a past medical history of prostate cancer (completed 40 rounds of radiation November 2024, on Lupron every 6 months), aortic valve replacement (1997, on Coumadin),hypertension, diabetes type 2, rheumatoid arthritis, hyperlipidemia, latent TB (s/p 9 months of Isoniazid). Patient underwent L3 kyphoplasty per Dr. Negro at pain management clinic [address]. His son reports that he was told that the patient was not breathing and required intubation and bagging for an unknown amount of time after surgery. EMS was called and patient was transported to [facility] on a nonrebreather. Chest x-ray obtained in ED was negative for acute process. He states he was NPO all night prior to surgery. He remember laying down for surgery and his next memory is waking up in am ambulance. Patient assessed in ED. He is alert with no signs of respiratory distress. He has no complaints of pain. Overall feels better than he did before surgery. Denies any recent illness or respiratory symptoms, fever, chills, cough, n/v/d. Review of Systems HENT: Negative. Respiratory: Negative. Cardiovascular: Negative. Gastrointestinal: Positive for abdominal distention. Repots ongoing after radiation Genitourinary: Negative. Musculoskeletal: Positive for back pain. Neurological: Positive for weakness. Negative for dizziness, tremors, syncope, light-headedness, numbness and headaches. Personal History Past Medical History: Diagnosis Date Arthritis Cancer Diabetes mellitus HLD (hyperlipidemia) Hypertension Prostate cancer Rheumatoid arthritis Tuberculosis Oncology Problem List: Prostate cancer (04/28/2025; Status: Active) Oncology/Hematology History No history exists. Past Surgical History: Procedure Laterality Date AORTIC VALVE REPAIR/REPLACEMENT 1998 KYPHOPLASTY 04/28/2025 Family History: family history is not on file. Social History: reports that he quit smoking about 28 years ago. His smoking use included cigarettes. He has never used smokeless tobacco. He reports that he does not currently use alcohol. He reports that he does not use drugs. Social History Social History Narrative Retired [employer], lives with spouse in [place]. Medications: HYDROcodone-acetaminophen, atenolol, dapagliflozin, enoxaparin sodium, glipizide, hydroCHLOROthiazide, lisinopril, methocarbamol, omeprazole, oxybutynin XL, predniSONE, simvastatin, tamsulosin, and warfarin No Known Allergies Objective Objective Vital Signs: Temp: [98.2 ??F (36.8 ??C)] 98.2 ??F (36.8 ??C) Heart Rate: [56-70] 70 Resp: [18] 18 BP: (122-165)/(69-86) 150/69 Physical Exam Constitutional: Appearance: Normal appearance. Eyes: Extraocular Movements: Extraocular movements intact. Pupils: Pupils are equal, round, and reactive to light. Cardiovascular: Rate and Rhythm: Normal rate and regular rhythm. Comments: Click; s/p AVR Pulmonary: Effort: Pulmonary effort is normal. No respiratory distress. Breath sounds: Normal breath sounds. No wheezing. Abdominal: General: There is distension. Palpations: Abdomen is soft. Musculoskeletal: General: No tenderness. Right lower leg: No edema. Left lower leg: No edema. Skin: General: Skin is warm and dry. Comments: 4x4 to lower back; CDI. Neurological: General: No focal deficit present. Mental Status: He is alert and oriented to person, place, and time. Result Review: I have personally reviewed the results from the time of this admission to 04/28/2025 22:07 EDT and agree with these findings: [x] Laboratory list / accordion [] Microbiology [x] Radiology [x] EKG/Telemetry [] Cardiology/Vascular [] Pathology [x] Old records [] Other: Most notable findings include: LAB RESULTS: Lab 04/28/25 1733 WBC 5.30 HEMOGLOBIN 10.3* HEMATOCRIT 33.3* PLATELETS 245 NEUTROS ABS 3.82 IMMATURE GRANS (ABS) 0.07* LYMPHS ABS 0.55* MONOS ABS 0.40 EOS ABS 0.42* MCV 92.5 PROTIME 14.2 Lab 04/28/25 1733 SODIUM 140 POTASSIUM 4.0 CHLORIDE 103 CO2 27.0 ANION GAP 10.0 BUN 18.5 CREATININE 0.90 EGFR 88.0 GLUCOSE 124* CALCIUM 9.1 Lab 04/28/25 1733 TOTAL PROTEIN 6.6 ALBUMIN 4.3 GLOBULIN 2.3 ALT (SGPT) 33 AST (SGOT) 34 BILIRUBIN 0.5 ALK PHOS 82 Lab 04/28/25 1859 04/28/25 1733 PROBNP -- 420.5 HSTROP T 25* 15 PROTIME -- 14.2 INR -- 1.03 Lab 04/28/25 2046 FIO2 24 CARBOXYHEMOGLOBIN (VENOUS) 1.6 Brief Urine Lab Results None Microbiology Results (last 10 days) No results found for the last 240 hours. XR Chest 1 View Result Date: 04/28/2025 XR CHEST 1 VW Date of Exam: 04/28/2025 5:54 PM EDT Indication: sob. Comparison: None available. Findings: Reticular opacity is evident bilaterally. Patient is undergone median sternotomy and valve replacement. Heart is mildly enlarged Aorta is calcified. Impression: Impression: No acute cardiopulmonary disease. Electronically Signed: Connor Hall MD 04/28/2025 6:26 PM EDT Workstation ID: [id number] Assessment & Plan Assessment & Plan Anesthesia complication Closed compression fracture of L3 lumbar vertebra, sequela Acute respiratory failure with hypoxia Prostate cancer Type 2 diabetes mellitus HTN (hypertension) HLD (hyperlipidemia) Rheumatoid arthritis involving multiple sites Aortic valve replaced TB lung, latent Anesthesia complication Closed compression fx of L3 L3 Kyphoplasty 04/28/2025 Acute respiratory failure with hypoxia -Reportedly stopped breathing requiring intubation and bagging per son's report -Currently on RA -Chest x-ray clear in ED -VBG reassuring -Monitor overnight, anticipate d/c home tomorrow -PT, OT consults- had been given a back brace for use with vigorous activities- he reports he was given no restrictions other than take it easy Elevated troponin -Denies chest pain -Trend, re-check in AM -EKG without ischemia Prostate cancer -Completed radiation in November -Lupron every 6 months, last dose in February 2025 -Continue Flomax, Ditropan -Outpatient f/u as scheduled DM2 -Managed on Farxiga and Glipizide -ACHS, SSI coverage while inpatient HTN -Continue Atenolol and Lisinopril HLD -Continue statin RA -Continue prednisone taper, reports last dose of 1 mg is 04/30/25 -PPI prophylaxis -Outpatient follow up; Orencia every 4 weeks, due 05/10/25 Aortic valve replacement, on Coumadin -Bridged at home before surgery with 80 mg Lovenox BID, continue -PT/INR pharmacy consult- was instructed to start back 5mg Coumadin 04/28/25 -INR goal = 2.5-3.5, 1.03 on admission TB lung, latent -S/P 9 months treatment with Isoniazid per ID -Monitor -Negative chest x-ray on admission (Consider using .LEXTIMEHP or .LEXMDM then remove this message) DVT prophylaxis: Lovenox - Coumadin CODE STATUS: Full Code Status (Patient has no pulse and is not breathing): CPR (Attempt to Resuscitate) Medical Interventions (Patient has pulse or is breathing): Full Support Expected Discharge 04/29/2025 This note has been completed as part of a split-shared workflow. Signature: Electronically signed by Fred Walls MD, 04/29/25, 4:42 AM EDT documented in this encounter Nursing Notes * Christopher Villanueva, PT - 04/29/2025 9:14 AM EDT Goal Outcome Evaluation: Plan of Care Reviewed With: patient Progress: no change Outcome Evaluation: Pt presents s/p kyphoplasty with decreased functional mobility and decreased independence compared to baseline. Pt ambulated 250ft with CGA, with and without SPC. Recommend continued skilled IP PT interventions. Recommend D/C home with assist when medically appropriate. Anticipated Discharge Disposition (PT): home with assist * Lizzie Fuller, OT - 04/29/2025 8:58 AM EDT Goal Outcome Evaluation: Plan of Care Reviewed With: patient Outcome Evaluation: Pt S/P kyphoplasty and presents below baseline with ADLs d/t weakness and dec activity tolerance. Pt educated on spinal precautions to maintain with ADLs. Pt has AE for LBD which he was using prior to surgery. Pt SBA sinkside grooming, min A to pull up socks sitting up in bed, CGA to ambulate with SPC. OT will follow to advance pt toward PLOF. Recommend home with assist. Anticipated Discharge Disposition (OT): home with assist * Celia Marshall RN - 04/29/2025 4:51 AM EDT Goal Outcome Evaluation: patient alert and oriented x 4. Vital signs stable and neuro assessment unremarkable. Back surgical dressing is dry, clean and occlusive. Patient denies any pain, numbness ortingling to lower extremities. Spot blood sugar check is 163 and patients is voiding clear yellow urine. Patient instructed to call assistance before getting out of bed and verbalized understanding. documented in this encounter ED Notes * Serafin Villalpando MD - 04/28/2025 5:26 PM EDT Images from the original note were not included. [facility] ENCOUNTER Pt Name: Martin Lezama Birthdate: 1945 Date of evaluation: 04/28/2025 Provider: Serafin Villalpando MD CHIEF COMPLAINT Chief Complaint Patient presents with Post-op Problem HISTORY OF PRESENT ILLNESS Martin Lezama is a 79 y.o. male who presents to the emergency department with severe desaturationduring procedure. Was having kyphoplasty at surgery center [facility]. Patient with reported saturation into the 40s, never lost a pulse. Pt had LMA in. Patient hypoxic for EMS initially, placed on NRB. [place], feels weak, no other specific complaints. Nursing notes were reviewed. REVIEW OF SYSTEMS ROS: A chief complaint appropriate review of systems was completed and is negative except as noted in the HPI. PAST MEDICAL HISTORY Past Medical History: Diagnosis Date Arthritis Cancer Diabetes mellitus HLD (hyperlipidemia) Hypertension Prostate cancer Rheumatoid arthritis TB lung, latent SURGICAL HISTORY Past Surgical History: Procedure Laterality Date AORTIC VALVE REPAIR/REPLACEMENT 1997 KYPHOPLASTY 04/28/2025 CURRENT MEDICATIONS No current facility-administered medications for this encounter. Current Outpatient Medications: atenolol (TENORMIN) 50 MG tablet, Take 1 tablet by mouth Daily., Disp: , Rfl: dapagliflozin (FARXIGA) 5 MG tablet tablet, Take 2 tablets by mouth Daily., Disp: , Rfl: enoxaparin sodium (LOVENOX) 80 MG/0.8ML solution prefilled syringe syringe, Inject 0.8 mL under theskin into the appropriate area as directed Every 12 (Twelve) Hours., Disp: , Rfl: glipizide (GLUCOTROL) 10 MG tablet, Take 1 tablet by mouth Daily., Disp: , Rfl: hydroCHLOROthiazide 25 MG tablet, Take 1 tablet by mouth Daily., Disp: , Rfl: HYDROcodone-acetaminophen (NORCO) 5-325 MG per tablet, Take 1 tablet by mouth Every 8 (Eight) HoursAs Needed for Mild Pain or Moderate Pain., Disp: , Rfl: lisinopril (PRINIVIL,ZESTRIL) 2.5 MG tablet, Take 1 tablet by mouth Daily., Disp: , Rfl: methocarbamol (ROBAXIN) 750 MG tablet, Take 1 tablet by mouth 3 (Three) Times a Day., Disp: , Rfl: omeprazole (priLOSEC) 20 MG capsule, Take 1 capsule by mouth Daily., Disp: , Rfl: oxybutynin XL (DITROPAN-XL) 10 MG 24 hr tablet, Take 1 tablet by mouth Daily., Disp: , Rfl: predniSONE (DELTASONE) 1 MG tablet, Take 1 tablet by mouth Daily. Last dose scheduled to be 04/30/2025, Disp: , Rfl: simvastatin (ZOCOR) 20 MG tablet, Take 1 tablet by mouth Every Night., Disp: , Rfl: tamsulosin (FLOMAX) 0.4 MG capsule 24 hr capsule, Take 1 capsule by mouth Daily., Disp: , Rfl: warfarin (COUMADIN) 4 MG tablet, Take 1 tablet by mouth Daily., Disp: , Rfl: ALLERGIES Patient has no known allergies. FAMILY HISTORY History reviewed. No pertinent family history. SOCIAL HISTORY Social History Socioeconomic History Marital status: Tobacco Use Smoking status: Former Current packs/day: 0.00 Types: Cigarettes Quit date: 1996 Years since quittin.6 Smokeless tobacco: Never Vaping Use Vaping status: Never Used Substance and Sexual Activity Alcohol use: Not Currently Drug use: Never Sexual activity: Defer PHYSICAL EXAM (up to 7 for level 4, 8 or more for level 5) Vitals: 04/28/25 2316 04/29/25 0536 04/29/25 0700 04/29/25 1018 BP: 130/52 151/69 136/75 BP Location: Right arm Right arm Left arm Patient Position: Lying Lying Sitting Pulse: 59 Resp: 18 18 18 Temp: 97.7 ??F (36.5 ??C) 98 ??F (36.7 ??C) 98.2 ??F (36.8 ??C) TempSrc: Oral Oral Oral SpO2: 97% 93% Weight: 86.1 kg (189 lb 13.1 oz) Height: General: Awake, alert, no acute distress. HEENT: Conjunctivae normal. Neck: Trachea midline. Cardiac: Heart regular rate, rhythm, no murmurs, rubs, or gallops Lungs: Lungs are clear to auscultation, there is no wheezing, rhonchi, or rales. There is no use ofaccessory muscles. Abdomen: Abdomen is soft, nontender, nondistended. There are no firm or pulsatile masses, no rebound rigidity or guarding. Musculoskeletal: No deformity. Neuro: Alert Dermatology: Skin is warm and dry Psych: Mentation is grossly normal, cognition is grossly normal. Affect is appropriate. DIAGNOSTIC RESULTS EKG: All EKGs are interpreted by the Emergency Department Physician who either signs or Co-signs this chart in the absence of a shrimp peeling machine operator. ECG 12 Lead Dyspnea Preliminary Result Test Reason : Dyspnea Blood Pressure : */* mmHG Vent. Rate : 66 BPM Atrial Rate : 66 BPM P-R Int : 208 ms QRS Dur : 102 ms QT Int : 470 ms P-R-T Axes : 46 -21 52 degrees QTcB Int : 492 ms Normal sinus rhythm Voltage criteria for left ventricular hypertrophy Nonspecific ST abnormality Prolonged QT Abnormal ECG No previous ECGs available Referred By: edmd Confirmed By: Telemetry Scan Final Result Telemetry Scan Final Result RADIOLOGY: [x] Radiologist's Report Reviewed: XR Chest 1 View Final Result Impression: No acute cardiopulmonary disease. Electronically Signed: Connor Hall MD 04/28/2025 6:26 PM EDT Workstation ID: [id number] I ordered and independently reviewed the above noted radiographic studies. LABS: I have reviewed and interpreted all of the currently available lab results from this visit (if applicable): Results for orders placed or performed during the hospital encounter of 04/28/25 Comprehensive Metabolic Panel Collection Time: 04/28/25 5:33 PM Specimen: Blood Result Value Ref Range Glucose 124 (H) 65 - 99 mg/dL BUN 18.5 8.0 - 23.0 mg/dL Creatinine 0.90 0.76 - 1.27 mg/dL Sodium 140 136 - 145 mmol/L Potassium 4.0 3.5 - 5.2 mmol/L Chloride 103 98 - 107 mmol/L CO2 27.0 22.0 - 29.0 mmol/L Calcium 9.1 8.6 - 10.5 mg/dL Total Protein 6.6 6.0 - 8.5 g/dL Albumin 4.3 3.5 - 5.2 g/dL ALT (SGPT) 33 1 - 41 U/L AST (SGOT) 34 1 - 40 U/L Alkaline Phosphatase 82 39 - 117 U/L Total Bilirubin 0.5 0.0 - 1.2 mg/dL Globulin 2.3 gm/dL A/G Ratio 1.9 g/dL BUN/Creatinine Ratio 20.6 7.0 - 25.0 Anion Gap 10.0 5.0 - 15.0 mmol/L eGFR 88.0 >60.0 mL/min/1.73 BNP Collection Time: 04/28/25 5:33 PM Specimen: Blood Result Value Ref Range proBNP 420.5 0.0 - 1,800.0 pg/mL High Sensitivity Troponin T Collection Time: 04/28/25 5:33 PM Specimen: Blood Result Value Ref Range HS Troponin T 15 <22 ng/L CBC Auto Differential Collection Time: 04/28/25 5:33 PM Specimen: Blood Result Value Ref Range WBC 5.30 3.40 - 10.80 10*3/mm3 RBC 3.60 (L) 4.14 - 5.80 10*6/mm3 Hemoglobin 10.3 (L) 13.0 - 17.7 g/dL Hematocrit 33.3 (L) 37.5 - 51.0 % MCV 92.5 79.0 - 97.0 fL MCH 28.6 26.6 - 33.0 pg MCHC 30.9 (L) 31.5 - 35.7 g/dL RDW 19.7 (H) 12.3 - 15.4 % RDW-SD 66.3 (H) 37.0 - 54.0 fl MPV 8.5 6.0 - 12.0 fL Platelets 245 140 - 450 10*3/mm3 Neutrophil % 72.1 42.7 - 76.0 % Lymphocyte % 10.4 (L) 19.6 - 45.3 % Monocyte % 7.5 5.0 - 12.0 % Eosinophil % 7.9 (H) 0.3 - 6.2 % Basophil % 0.8 0.0 - 1.5 % Immature Grans % 1.3 (H) 0.0 - 0.5 % Neutrophils, Absolute 3.82 1.70 - 7.00 10*3/mm3 Lymphocytes, Absolute 0.55 (L) 0.70 - 3.10 10*3/mm3 Monocytes, Absolute 0.40 0.10 - 0.90 10*3/mm3 Eosinophils, Absolute 0.42 (H) 0.00 - 0.40 10*3/mm3 Basophils, Absolute 0.04 0.00 - 0.20 10*3/mm3 Immature Grans, Absolute 0.07 (H) 0.00 - 0.05 10*3/mm3 nRBC 0.0 0.0 - 0.2 /100 WBC Protime-INR Collection Time: 04/28/25 5:33 PM Specimen: Blood Result Value Ref Range Protime 14.2 12.2 - 15.3 Seconds INR 1.03 0.89 - 1.12 Green Top (Gel) Collection Time: 04/28/25 5:33 PM Result Value Ref Range Extra Tube Hold for add-ons. Lavender Top Collection Time: 04/28/25 5:33 PM Result Value Ref Range Extra Tube hold for add-on Gold Top - SST Collection Time: 04/28/25 5:33 PM Result Value Ref Range Extra Tube Hold for add-ons. Nash Top Collection Time: 04/28/25 5:33 PM Result Value Ref Range Extra Tube Hold for add-ons. Light Blue Top Collection Time: 04/28/25 5:33 PM Result Value Ref Range Extra Tube Hold for add-ons. ECG 12 Lead Dyspnea Collection Time: 04/28/25 5:41 PM Result Value Ref Range QT Interval 470 ms QTC Interval 492 ms High Sensitivity Troponin T 1Hr Collection Time: 04/28/25 6:59 PM Specimen: Blood Result Value Ref Range HS Troponin T 25 (H) <22 ng/L Troponin T Numeric Delta 10 (C) Abnormal if >/=3 ng/L Blood Gas, Venous With Co-Ox Collection Time: 04/28/25 8:46 PM Specimen: Venous Blood Result Value Ref Range Site Nurse/Dr Draw pH, Venous 7.393 7.310 - 7.410 pH Units pCO2, Venous 50.3 41.0 - 51.0 mm Hg pO2, Venous 28.0 27.0 - 53.0 mm Hg HCO3, Venous 30.6 (H) 22.0 - 28.0 mmol/L Base Excess, Venous 4.9 (H) -2.0 - 2.0 mmol/L Hemoglobin, Blood Gas 9.6 (L) 13.5 - 17.5 g/dL Oxyhemoglobin Venous 44.5 % Methemoglobin Venous 0.5 % Carboxyhemoglobin Venous 1.6 % CO2 Content 32.2 22 - 33 mmol/L Temperature 37.0 Barometric Pressure for Blood Gas Modality Nasal Cannula FIO2 24 % Rate 0 Breaths/minute PIP 0 cmH2O IPAP 0 EPAP 0 POC Glucose Once Collection Time: 04/28/25 11:21 PM Specimen: Blood Result Value Ref Range Glucose 169 (H) 70 - 130 mg/dL Protime-INR Collection Time: 04/29/25 4:30 AM Specimen: Blood Result Value Ref Range Protime 15.2 12.2 - 15.3 Seconds INR 1.13 (H) 0.89 - 1.12 CBC (No Diff) Collection Time: 04/29/25 4:30 AM Specimen: Blood Result Value Ref Range WBC 7.99 3.40 - 10.80 10*3/mm3 RBC 3.09 (L) 4.14 - 5.80 10*6/mm3 Hemoglobin 8.7 (L) 13.0 - 17.7 g/dL Hematocrit 28.5 (L) 37.5 - 51.0 % MCV 92.2 79.0 - 97.0 fL MCH 28.2 26.6 - 33.0 pg MCHC 30.5 (L) 31.5 - 35.7 g/dL RDW 19.8 (H) 12.3 - 15.4 % RDW-SD 66.5 (H) 37.0 - 54.0 fl MPV 9.1 6.0 - 12.0 fL Platelets 252 140 - 450 10*3/mm3 Comprehensive Metabolic Panel Collection Time: 04/29/25 4:30 AM Specimen: Blood Result Value Ref Range Glucose 123 (H) 65 - 99 mg/dL BUN 18.7 8.0 - 23.0 mg/dL Creatinine 0.86 0.76 - 1.27 mg/dL Sodium 139 136 - 145 mmol/L Potassium 3.7 3.5 - 5.2 mmol/L Chloride 103 98 - 107 mmol/L CO2 26.0 22.0 - 29.0 mmol/L Calcium 9.1 8.6 - 10.5 mg/dL Total Protein 6.0 6.0 - 8.5 g/dL Albumin 3.9 3.5 - 5.2 g/dL ALT (SGPT) 33 1 - 41 U/L AST (SGOT) 28 1 - 40 U/L Alkaline Phosphatase 70 39 - 117 U/L Total Bilirubin 0.4 0.0 - 1.2 mg/dL Globulin 2.1 gm/dL A/G Ratio 1.9 g/dL BUN/Creatinine Ratio 21.7 7.0 - 25.0 Anion Gap 10.0 5.0 - 15.0 mmol/L eGFR 89.2 >60.0 mL/min/1.73 High Sensitivity Troponin T Collection Time: 04/29/25 4:30 AM Specimen: Blood Result Value Ref Range HS Troponin T 42 (H) <22 ng/L POC Glucose Once Collection Time: 04/29/25 7:21 AM Specimen: Blood Result Value Ref Range Glucose 111 70 - 130 mg/dL POC Glucose Once Collection Time: 04/29/25 11:16 AM Specimen: Blood Result Value Ref Range Glucose 185 (H) 70 - 130 mg/dL High Sensitivity Troponin T Collection Time: 04/29/25 12:34 PM Specimen: Blood Result Value Ref Range HS Troponin T 27 (H) <22 ng/L If labs were ordered, I independently reviewed the results and considered them in treating the patient. EMERGENCY DEPARTMENT COURSE and DIFFERENTIAL DIAGNOSIS/MDM: Vitals: OF 10:15 EDT BP - 136/75 HR - 59 TEMP - 98.2 ??F (36.8 ??C) (Oral) O2 SATS - 93% Discussion below represents my analysis of pertinent findings related to patient's condition, differential diagnosis, treatment plan and final disposition. Differential diagnosis: The differential diagnosis associated with the patient's presentation includes: ACS, dysrhythmia, PE, PNA, PTX, aspiration Independent interpretations (ECG/rhythm strip/X-ray/US/CT scan): I independently interpreted the ptCXR and teasel gig operator - there is no infiltrate and the patient is in NSR Additional sources: Discussed/obtained information from independent historians: [] Spouse: [] Parent: [] Friend: [x] EMS: Report was taken from EMS and is as noted in the HPI [] Other: External (non-ED) record review: [] Inpatient record: [] Office record: [] Outpatient record: [] Prior Outpatient labs: [] Prior Outpatient radiology: [] Primary Care record: [] Outside ED record: [] Other: Patient's care impacted by: [x] Diabetes [x] Hypertension [] Coronary Artery Disease [] Cancer [] Other: Care significantly affected by Social Determinants of Health (housing and economic circumstances, unemployment) [] Yes [x] No If yes, Patient's care significantly limited by Social Determinants of Health including: [] Inadequate housing [] Low income [] Alcoholism and drug addiction in family [] Problems related to primary support group [] Unemployment [] Problems related to employment [] Other Social Determinants of Health: Consideration of admission/observation vs discharge: I considered discharge, however pt w uptrending trop, feel that he warrants admission for observation ED Course: ED Course as of 05/01/25 1015 Janis Apr 28, 20252012 This patient had some sort of episode during a procedure on his low back today. Was reportedlysedated with prop/versed, had LMA for procedure but was not intubated. At the end of the procedure patient became severely hypoxic with reported sats in the 40s. LMA was removed, placed on NRB, transported by EMS on NRB. Pt sleepy but awake on arrival, sats improved. He feels weak but has no other complaints. Labs look ok apart from an uptrending troponin with a 10 point jump on repeat. I think it's unlikely to be anything serious but probably warrants observation. [NS] 2012 I discussed case with hospitalist Dr. Whitfield. Discussed history, presentation, workup. Acceptspatient for admission [NS] ED Course User Index [NS] Serafin Villalpando MD FINAL IMPRESSION 1. Hypoxia 2. Generalized weakness 3. Elevated troponin DISPOSITION/PLAN ED Disposition ED Disposition Decision to Admit Condition -- Comment Level of Care: Telemetry [5] Diagnosis: Anesthesia complication [209446] Admitting Physician: FRED WALLS [[id number]] Attending Physician: FRED WALLS [[id number]] Is patient appropriate for Inpatient Observation Unit?: Yes [1] Comment: Please note this report has been produced using speech recognition software. Serafin Villalpando MD Attending Emergency Physician Serafin Villalpando MD 05/01/25 1019 documented in this encounter Miscellaneous Notes * Case Management/Social Work - Monica Aguillon RN - 04/29/2025 9:55 AM EDT Discharge Planning Assessment YADIEL Kilgore Patient Name: Martin Lezama Today's Date: 04/29/2025 Admit Date: 04/28/2025 Plan: Home at DC Discharge Needs Assessment Row Name 04/29/25 0952 Living Environment People in Home spouse Current Living Arrangements home Living Arrangement Comments Has two steps to enter one level home. Discharge Needs Assessment Equipment Currently Used at Home cane, straight Equipment Needed After Discharge none Discharge Coordination/Progress Not current with HH or poutpt services. Discharge Plan Row Name 04/29/25 0953 Plan Plan Home at DC Patient/Family in Agreement with Plan yes Plan Comments I spoke with the pt. He denies any DC needs at this time. Can follow up with his ortho regarding outpt post op care. Final Discharge Disposition Code 01 - home or self-care Row Name 04/29/25 0805 Plan Final Discharge Disposition Code 01 - home or self-care Continued Care and Services - Admitted Since 04/28/2025 No active coordination exists. Expected Discharge Date and Time Expected Discharge Date Expected Discharge Time Apr 29, 2025 Demographic Summary No documentation. Functional Status Row Name 04/29/25 0952 Functional Status Usual Activity Tolerance good Functional Status, IADL Medications independent Meal Preparation independent Housekeeping independent Laundry independent Shopping independent Psychosocial No documentation. Abuse/Neglect No documentation. Legal No documentation. Substance Abuse No documentation. Patient Forms No documentation. Monica Aguillon RN * Therapy Evaluation - Christopher Villanueva, PT - 04/29/2025 9:14 AM EDT Images from the original note were not included. Patient Name: Martin Lezama : 1945 Today's Date: 04/29/2025 Admit Date: 04/28/2025 Visit Dx: ICD-10-CM ICD-9-CM 1. Hypoxia R09.02 799.02 2. Generalized weakness R53.1 780.79 3. Elevated troponin R79.89 790.6 Patient Active Problem List Diagnosis Anesthesia complication Closed compression fracture of L3 lumbar vertebra, sequela Acute respiratory failure with hypoxia Prostate cancer Type 2 diabetes mellitus HTN (hypertension) HLD (hyperlipidemia) Rheumatoid arthritis involving multiple sites Aortic valve replaced TB lung, latent Past Medical History: Diagnosis Date Arthritis Cancer Diabetes mellitus HLD (hyperlipidemia) Hypertension Prostate cancer Rheumatoid arthritis TB lung, latent Past Surgical History: Procedure Laterality Date AORTIC VALVE REPAIR/REPLACEMENT 1998 KYPHOPLASTY 04/28/2025 General Information Row Name 04/29/25 1051 Physical Therapy Time and Intention Document Type evaluation -AE Mode of Treatment physical therapy -AE Row Name 04/29/25 1051 General Information Patient Profile Reviewed yes -AE Prior Level of Function independent:;all household mobility;community mobility;gait;transfer Used SPC and standard walker for mobility. -AE Existing Precautions/Restrictions fall;spinal;other (see comments) L3 Kyphoplasty (04/28); LSO -AE Barriers to Rehab medically complex;previous functional deficit -AE Row Name 04/29/25 1051 Living Environment Current Living Arrangements home -AE People in Home spouse -AE Row Name 04/29/25 1051 Home Main Entrance Number of Stairs, Main Entrance two -AE Stair Railings, Main Entrance other (see comments) Post on R side -AE Row Name 04/29/25 1051 Stairs Within Home, Primary Number of Stairs, Within Home, Primary none -AE Stair Railings, Within Home, Primary none -AE Row Name 04/29/25 1051 Cognition Orientation Status (Cognition) oriented x 3 -AE Row Name 04/29/25 1051 Safety Issues/Impairments Affecting Functional Mobility Safety Issues Affecting Function (Mobility) awareness of need for assistance;insight into deficits/self-awareness;safety precaution awareness;sequencing abilities -AE Impairments Affecting Function (Mobility) strength;pain -AE User Abreu (r) = Recorded By, (t) = Taken By, (c) = Cosigned By Initials Name Provider Type AE Christopher Villanueva, WILLIAM Physical Therapist Mobility Row Name 04/29/25 1053 Bed Mobility Bed Mobility supine-sit -AE Supine-Sit Bay[place] (Bed Mobility) standby assist -AE Assistive Device (Bed Mobility) bed rails;head of bed elevated -AE Comment, (Bed Mobility) VCs for hand placement and sequencing. Pt educated on log rolling techniqueand spinal precautions. -AE Row Name 04/29/25 1053 Transfers Comment, (Transfers) VCs for hand placement and sequencing. Pt required increased cues to improve upright posture. Pt used SPC initially but while ambulating began to ambulate without AD. -AE Row Name 04/29/25 1053 Sit-Stand Transfer Sit-Stand Bayard (Transfers) contact guard;verbal cues -AE Assistive Device (Sit-Stand Transfers) cane, straight -AE Row Name 04/29/25 1053 Gait/Stairs (Locomotion) Bayard Level (Gait) contact guard -AE Assistive Device (Gait) cane, straight -AE Distance in Feet (Gait) 250 -AE Deviations/Abnormal Patterns (Gait) bilateral deviations;davin decreased;gait speed decreased;stride length decreased -AE Bilateral Gait Deviations forward flexed posture;heel strike decreased -AE Bayard Level (Stairs) stand by assist -AE Handrail Location (Stairs) right side (ascending) -AE Number of Steps (Stairs) 3 -AE Ascending Technique (Stairs) [id number] -AE Descending Technique (Stairs) [id number] -AE Comment, (Gait/Stairs) Pt demo step through gait pattern with slowed davin and decreased gait speed. Pt demo good balance and safety awareness while ambulating. Pt also navigated 3 steps with step over step pattern, no LOB noted. -AE User Abreu (r) = Recorded By, (t) = Taken By, (c) = Cosigned By Initials Name Provider Type AE Christopher Villanueva PT Physical Therapist Obj/Interventions Row Name 04/29/25 1140 Range of Motion Comprehensive General Range of Motion bilateral lower extremity ROM WFL -AE Row Name 04/29/25 1140 Strength Comprehensive (MMT) General Manual Muscle Testing (MMT) Assessment lower extremity strength deficits identified -AE Comment, General Manual Muscle Testing (MMT) Assessment BLE grossly 4/5 -AE Row Name 04/29/25 1140 Balance Balance Assessment sitting static balance;sitting dynamic balance;standing static balance;standing dynamic balance -AE Static Sitting Balance standby assist -AE Dynamic Sitting Balance contact guard -AE Position, Sitting Balance sitting edge of bed -AE Static Standing Balance contact guard -AE Dynamic Standing Balance contact guard -AE Position/Device Used, Standing Balance supported;cane, straight -AE Row Name 04/29/25 1140 Sensory Assessment (Somatosensory) Sensory Assessment (Somatosensory) LE sensation intact -AE User Abreu (r) = Recorded By, (t) = Taken By, (c) = Cosigned By Initials Name Provider Type AE Christopher Villanueva PT Physical Therapist Goals/Plan Row Name 04/29/25 1145 Bed Mobility Goal 1 (PT) Activity/Assistive Device (Bed Mobility Goal 1, PT) sit to supine/supine to sit -AE Bayard Level/Cues Needed (Bed Mobility Goal 1, PT) modified independence -AE Time Frame (Bed Mobility Goal 1, PT) short term goal (STG);5 days -AE Progress/Outcomes (Bed Mobility Goal 1, PT) new goal -AE Row Name 04/29/25 1145 Transfer Goal 1 (PT) Activity/Assistive Device (Transfer Goal 1, PT) [id number]-AE Bayard Level/Cues Needed (Transfer Goal 1, PT) modified independence -AE Time Frame (Transfer Goal 1, PT) retirement goal (LTG);10 days -AE Progress/Outcome (Transfer Goal 1, PT) new goal -AE Row Name 04/29/25 114 Gait Training Goal 1 (PT) Activity/Assistive Device (Gait Training Goal 1, PT) gait (walking locomotion);assistive device use-AE Distance (Gait Training Goal 1, PT) 600ft -AE Time Frame (Gait Training Goal 1, PT) retirement goal (LTG);10 days -AE Progress/Outcome (Gait Training Goal 1, PT) new goal -AE Row Name 04/29/25 1140 Stairs Goal 1 (PT) Activity/Assistive Device (Stairs Goal 1, PT) ascending stairs;descending stairs -AE [place]ard Level/Cues Needed (Stairs Goal 1, PT) standby assist -AE Number of Stairs (Stairs Goal 1, PT) 3 -AE Time Frame (Stairs Goal 1, PT) retirement goal (LTG);10 days -AE Progress/Outcome (Stairs Goal 1, PT) new goal -AE Row Name 04/29/25 1146 Therapy Assessment/Plan (PT) Planned Therapy Interventions (PT) balance training;bed mobility training;gait training;home exercise program;patient/family education;postural re- education;ROM (range of motion);stair training;strengthening;transfer training -AE User Abreu (r) = Recorded By, (t) = Taken By, (c) = Cosigned By Initials Name Provider Type AE Christopher Villanueva PT Physical Therapist Clinical Impression Row Name 04/29/25 114 Pain Pretreatment Pain Rating 6/10 -AE Posttreatment Pain Rating 6/10 -AE Pain Location other (see comments) throat -AE Pain Management Interventions nursing notified -AE Response to Pain Interventions activity participation with tolerable pain -AE Row Name 04/29/25 114 Plan of Care Review Plan of Care Reviewed With patient -AE Progress no change -AE Outcome Evaluation Pt presents s/p kyphoplasty with decreased functional mobility and decreased independence compared to baseline. Pt ambulated 250ft with CGA, with and without SPC. Recommend continued skilled IP PT interventions. Recommend D/C home with assist when medically appropriate. -AE Row Name 04/29/25 1141 Therapy Assessment/Plan (PT) Patient/Family Therapy Goals Statement (PT) Home -AE Rehab Potential (PT) good -AE Criteria for Skilled Interventions Met (PT) yes -AE Therapy Frequency (PT) daily -AE Predicted Duration of Therapy Intervention (PT) 1 week -AE Row Name 04/29/25 1141 Vital Signs Pre Systolic BP Rehab 151 -AE Pre Treatment Diastolic BP 69 -AE Pretreatment Heart Rate (beats/min) 60 -AE Posttreatment Heart Rate (beats/min) 63 -AE Pre SpO2 (%) 97 -AE O2 Delivery Pre Treatment nasal cannula -AE O2 Delivery Intra Treatment room air -AE Post SpO2 (%) 92 -AE O2 Delivery Post Treatment room air -AE Pre Patient Position Supine -AE Intra Patient Position Standing -AE Post Patient Position Sitting -AE Row Name 04/29/25 1141 Positioning and Restraints Pre-Treatment Position in bed -AE Post Treatment Position chair -AE In Chair notified nsg;call light within reach;encouraged to call for assist;exit alarm on;waffle cushion;reclined -AE User Abreu (r) = Recorded By, (t) = Taken By, (c) = Cosigned By Initials Name Provider Type Christopher Hogue, PT Physical Therapist Outcome Measures Row Name 04/29/25 1151 04/29/25 0735 How much help from another person do you currently need... Turning from your back to your side while in flat bed without using bedrails? 3 -AE 3 -EC Moving from lying on back to sitting on the side of a flat bed without bedrails? 3 -AE 3 -EC Moving to and from a bed to a chair (including a wheelchair)? 3 -AE 3 -EC Standing up from a chair using your arms (e.g., wheelchair, bedside chair)? 3 - AE 3 -EC Climbing 3-5 steps with a railing? 3 -AE 3 -EC To walk in hospital room? 3 -AE 3 -EC AM-PAC 6 Clicks Score (PT) 18 -AE 18 -EC Highest Level of Mobility Goal Walk 10 Steps or More-6 -AE Walk 10 Steps or More-6 -EC Row Name 04/29/25 1151 04/29/25 1110 Functional Assessment Outcome Measure Options AM-PAC 6 Clicks Basic Mobility (PT) -AE AM-PAC 6 Clicks Daily Activity (OT)-AC User Abreu (r) = Recorded By, (t) = Taken By, (c) = Cosigned By Initials Name Provider Type AC Lizzie Fuller, OT Occupational Therapist Christopher Hogue, PT Physical Therapist Mariah Jorgensen, TAE Registered Nurse Physical Therapy Education Title: PT OT EMBOSSING TOOLSETTER Therapies (In Progress) Topic: Physical Therapy (In Progress) Point: Mobility training (Done) Learning Progress Summary Patient Acceptance, E, VU by AE at 04/29/2025913 Point: Home exercise program (Not Started) Learner Progress: Not documented in this visit. Point: Body mechanics (Done) Learning Progress Summary Patient Acceptance, E, VU by AE at 04/29/2025913 Point: Precautions (Done) Learning Progress Summary Patient Acceptance, E, VU by AE at 04/29/2025913 User Abreu Initials Effective Dates Name Provider Type Discipline AE 06/05/21 - Christopher Villanueva, PT Physical Therapist PT PT Recommendation and Plan Recommended discharge disposition is based on the functional assessment performed by PT/OT/Speech therapy (as applicable) and may not reflect the medical necessity determined by your provider or services covered by an individual patient's insurance plan or patient resource. Planned Therapy Interventions (PT): balance training, bed mobility training, gait training, home exercise program, patient/family education, postural re- education, ROM (range of motion), stair training, strengthening, transfer training Therapy Frequency (PT): daily Progress: no change Outcome Evaluation: Pt presents s/p kyphoplasty with decreased functional mobility and decreased independence compared to baseline. Pt ambulated 250ft with CGA, with and without SPC. Recommend continued skilled IP PT interventions. Recommend D/C home with assist when medically appropriate. Time Calculation: PT Evaluation Complexity History, PT Evaluation Complexity: 3 or more personal factors and/or comorbidities Examination of Body Systems (PT Eval Complexity): total of 3 or more elements Clinical Presentation (PT Evaluation Complexity): stable Clinical Decision Making (PT Evaluation Complexity): low complexity Overall Complexity (PT Evaluation Complexity): low complexity PT Charges Row Name 04/29/25 1153 Time Calculation Start Time 09 -AE PT Received On 04/29/25 -AE PT Goal Re-Cert Due Date 05/09/25 -AE Untimed Charges PT Eval/Re-eval Minutes 46 -AE Total Minutes Untimed Charges Total Minutes 46 -AE Total Minutes 46 -AE User Abreu (r) = Recorded By, (t) = Taken By, (c) = Cosigned By Initials Name Provider Type AE Christopher Villanueva, PT Physical Therapist Therapy Charges for Today Code Description Service Date Service Provider Modifiers Qty [id number] HC PT EVAL LOW COMPLEXITY 4 04/29/2025 Christopher Villanueva, PT GP 1 PT G-Codes Outcome Measure Options: AM-PAC 6 Clicks Basic Mobility (PT) AM-PAC 6 Clicks Score (PT): 18 AM-PAC 6 Clicks Score (OT): 19 PT Discharge Summary Anticipated Discharge Disposition (PT): home with assist Christopher Villanueva PT 04/29/2025 * Therapy Evaluation - Lizzie Fuller, OT - 04/29/2025 8:58 AM EDT Images from the original note were not included. Patient Name: Martin Lezama : 1945 Today's Date: 04/29/2025 Admit Date: 04/28/2025 Visit Dx: ICD-10-CM ICD-9-CM 1. Hypoxia R09.02 799.02 2. Generalized weakness R53.1 780.79 3. Elevated troponin R79.89 790.6 Patient Active Problem List Diagnosis Anesthesia complication Closed compression fracture of L3 lumbar vertebra, sequela Acute respiratory failure with hypoxia Prostate cancer Type 2 diabetes mellitus HTN (hypertension) HLD (hyperlipidemia) Rheumatoid arthritis involving multiple sites Aortic valve replaced TB lung, latent Past Medical History: Diagnosis Date Arthritis Cancer Diabetes mellitus HLD (hyperlipidemia) Hypertension Prostate cancer Rheumatoid arthritis TB lung, latent Past Surgical History: Procedure Laterality Date AORTIC VALVE REPAIR/REPLACEMENT 1998 KYPHOPLASTY 04/28/2025 General Information Row Name 04/29/25 0858 OT Time and Intention Document Type evaluation -AC Mode of Treatment occupational therapy -AC Row Name 04/29/25 0858 General Information Patient Profile Reviewed yes -AC Prior Level of Function independent:;all household mobility;feeding;grooming;bathing;min assist:;dressing used SPC to ambulate, also has SW - Existing Precautions/Restrictions fall;spinal L3 kyphoplasty 04/28/2025, back brace - Barriers to Rehab medically complex;previous functional deficit - Row Name 04/29/25 0858 Occupational Profile Environmental Supports and Barriers (Occupational Profile) walk in shower with shower seat - Row Name 04/29/25 0858 Living Environment Current Living Arrangements home - People in Home spouse - Row Name 04/29/25 0858 Home Main Entrance Number of Stairs, Main Entrance two -AC Stair Railings, Main Entrance other (see comments) post on the right - Row Name 04/29/25 0858 Stairs Within Home, Primary Stair Railings, Within Home, Primary none - Row Name 04/29/25 0858 Cognition Orientation Status (Cognition) oriented x 3 - Row Name 04/29/25 0858 Safety Issues/Impairments Affecting Functional Mobility Safety Issues Affecting Function (Mobility) awareness of need for assistance;insight into deficits/self-awareness;safety precaution awareness - Impairments Affecting Function (Mobility) strength;endurance/activity tolerance - User Abreu (r) = Recorded By, (t) = Taken By, (c) = Cosigned By Initials Name Provider Type AC Lizzie Fuller, OT Occupational Therapist Mobility/ADL's Row Name 04/29/25 1056 Bed Mobility Bed Mobility supine-sit - Supine-Sit Bayard (Bed Mobility) standby assist - Assistive Device (Bed Mobility) bed rails;head of bed elevated - Comment, (Bed Mobility) educated to logroll, VCs to sequence - Row Name 04/29/25 1056 Transfers Transfers sit-stand transfer - Row Name 04/29/25 1056 Sit-Stand Transfer Sit-Stand Bayard (Transfers) contact guard - Assistive Device (Sit-Stand Transfers) cane, straight - Row Name 04/29/25 1056 Functional Mobility Functional Mobility- Ind. Level contact guard assist - Functional Mobility- Device cane, straight did not use cane at times, but held in hand - Functional Mobility-Distance (Feet) -- in hallway - Row Name 04/29/25 1056 Activities of Daily Living BADL Assessment/Intervention lower body dressing;grooming -AC Row Name 04/29/25 1056 Lower Body Dressing Assessment/Training Bayard Level (Lower Body Dressing) supervision -AC Position (Lower Body Dressing) sitting up in bed -AC Comment, (Lower Body Dressing) pulled up socks, reports he has AE for LBD and knows how to use it. educated to maintain spinal precautions with self care - Row Name 04/29/25 1056 Grooming Assessment/Training Bayard Level (Grooming) oral care regimen;standby assist -AC Position (Grooming) supported standing -AC Comment, (Grooming) educated to not lean over sink -AC User Abreu (r) = Recorded By, (t) = Taken By, (c) = Cosigned By Initials Name Provider Type Lizzie Edwards OT Occupational Therapist Obj/Interventions Row Name 04/29/25 1100 Sensory Assessment (Somatosensory) Sensory Assessment (Somatosensory) UE sensation intact - Row Name 04/29/25 1100 Vision Assessment/Intervention Visual Impairment/Limitations corrective lenses full-time - Row Name 04/29/25 1100 Range of Motion Comprehensive General Range of Motion bilateral upper extremity ROM WNL -AC Row Name 04/29/25 1100 Strength Comprehensive (MMT) Comment, General Manual Muscle Testing (MMT) Assessment BUE grossly 4/5 -AC Row Name 04/29/25 1100 Balance Balance Assessment sitting static balance;sitting dynamic balance;standing static balance;standing dynamic balance -AC Static Sitting Balance standby assist -AC Dynamic Sitting Balance contact guard -AC Position, Sitting Balance sitting edge of bed -AC Static Standing Balance contact guard -AC Dynamic Standing Balance contact guard -AC Position/Device Used, Standing Balance supported;cane, straight -AC User Abreu (r) = Recorded By, (t) = Taken By, (c) = Cosigned By Initials Name Provider Type Lizzie Edwards, OT Occupational Therapist Goals/Plan Row Name 04/29/25 1109 Transfer Goal 1 (OT) Activity/Assistive Device (Transfer Goal 1, OT) [id number];toilet;cane, straight -AC Bayard Level/Cues Needed (Transfer Goal 1, OT) supervision required -AC Time Frame (Transfer Goal 1, OT) exterminator termite goal (LTG);5 days -AC Progress/Outcome (Transfer Goal 1, OT) new goal;goal ongoing - Row Name 04/29/25 1109 Toileting Goal 1 (OT) Activity/Device (Toileting Goal 1, OT) adjust/manage clothing;perform perineal hygiene -AC Bayard Level/Cues Needed (Toileting Goal 1, OT) supervision required -AC Time Frame (Toileting Goal 1, OT) short term goal (STG);3 days -AC Progress/Outcome (Toileting Goal 1, OT) new goal;goal ongoing -AC Row Name 04/29/25 110 Grooming Goal 1 (OT) Activity/Device (Grooming Goal 1, OT) oral care -AC Bayard (Grooming Goal 1, OT) independent -AC Time Frame (Grooming Goal 1, OT) short term goal (STG);3 days -AC Strategies/Barriers (Grooming Goal 1, OT) standing sinkside -AC Row Name 04/29/25 110 Therapy Assessment/Plan (OT) Planned Therapy Interventions (OT) activity tolerance training;BADL retraining;adaptive equipment training;functional balance retraining;occupation/activity based interventions;patient/caregiver educa tion/training;strengthening exercise;transfer/mobility retraining - User Abreu (r) = Recorded By, (t) = Taken By, (c) = Cosigned By Initials Name Provider Type AC Lizzie Fuller, OT Occupational Therapist Clinical Impression Row Name 04/29/25 1100 Pain Assessment Pretreatment Pain Rating 6/10 -AC Posttreatment Pain Rating 6/10 -AC Pain Location -- throat -AC Pain Management Interventions nursing notified -AC Response to Pain Interventions activity participation with tolerable pain - Pre/Posttreatment Pain Comment 0/10 - Row Name 04/29/25 1100 Plan of Care Review Plan of Care Reviewed With patient -AC Outcome Evaluation Pt S/P kyphoplasty and presents below baseline with ADLs d/t weakness and dec activity tolerance. Pt educated on spinal precautions to maintain with ADLs. Pt has AE for LBD which he was using prior to surgery. Pt SBA sinkside grooming, min A to pull up socks sitting up in bed, CGA to ambulate with SPC. OT will follow to advance pt toward PLOF. Recommend home with assist. - Row Name 04/29/25 1100 Therapy Assessment/Plan (OT) Criteria for Skilled Therapeutic Interventions Met (OT) yes;skilled treatment is necessary -AC Therapy Frequency (OT) daily - Row Name 04/29/25 1100 Therapy Plan Review/Discharge Plan (OT) Anticipated Discharge Disposition (OT) home with assist -AC Row Name 04/29/25 1100 Vital Signs Pre Systolic BP Rehab 151 -AC Pre Treatment Diastolic BP 69 -AC Pretreatment Heart Rate (beats/min) 61 -AC Posttreatment Heart Rate (beats/min) 61 -AC Pre SpO2 (%) 98 -AC O2 Delivery Pre Treatment supplemental O2 -AC O2 Delivery Intra Treatment room air -AC Post SpO2 (%) 91 -AC O2 Delivery Post Treatment room air -AC Pre Patient Position Supine -AC Post Patient Position Sitting -AC Row Name 04/29/25 1100 Positioning and Restraints Pre-Treatment Position in bed -AC Post Treatment Position chair -AC In Chair notified nsg;reclined;call light within reach;encouraged to call for assist;exit alarm on;waffle cushion -AC User Abreu (r) = Recorded By, (t) = Taken By, (c) = Cosigned By Initials Name Provider Type AC Lizzie Fuller, OT Occupational Therapist Outcome Measures Row Name 04/29/25 1110 How much help from another is currently needed... Putting on and taking off regular lower body clothing? 3 -AC Bathing (including washing, rinsing, and drying) 3 -AC Toileting (which includes using toilet bed irwin or urinal) 3 -AC Putting on and taking off regular upper body clothing 3 -AC Taking care of personal grooming (such as brushing teeth) 3 -AC Eating meals 4 -AC AM-PAC 6 Clicks Score (OT) 19 -AC Row Name 04/29/25 0735 04/28/25 8003 How much help from another person do you currently need... Turning from your back to your side while in flat bed without using bedrails? 3 -EC 3 -HS Moving from lying on back to sitting on the side of a flat bed without bedrails? 3 -EC 3 -HS Moving to and from a bed to a chair (including a wheelchair)? 3 -EC 3 -HS Standing up from a chair using your arms (e.g., wheelchair, bedside chair)? 3 - EC 3 -HS Climbing 3-5 steps with a railing? 3 -EC 3 -HS To walk in hospital room? 3 -EC 3 -HS AM-PAC 6 Clicks Score (PT) 18 -EC 18 -HS Row Name 04/29/25 1110 Functional Assessment Outcome Measure Options AM-PAC 6 Clicks Daily Activity (OT) -AC User Abreu (r) = Recorded By, (t) = Taken By, (c) = Cosigned By Initials Name Provider Type AC Lizzie Fuller, OT Occupational Therapist Mariah Jorgensen, TAE Registered Nurse Celia Henry RN Registered Nurse Occupational Therapy Education Title: PT OT EMBOSSING TOOLSETTER Therapies (In Progress) Topic: Occupational Therapy (In Progress) Point: ADL training (In Progress) Learning Progress Summary Patient Acceptance, E, NR by at 04/29/2025 1111 User Abreu Initials Effective Dates Name Provider Type Discipline 10/18/22 - Lizzie Fuller, OT Occupational Therapist OT OT Recommendation and Plan Recommended discharge disposition is based on the functional assessment performed by PT/OT/Speech therapy (as applicable) and may not reflect the medical necessity determined by your provider or services covered by an individual patient's insurance plan or patient resource. Planned Therapy Interventions (OT): activity tolerance training, BADL retraining, adaptive equipment training, functional balance retraining, occupation/activity based interventions, patient/caregiver education/training, strengthening exercise, transfer/mobility retraining Therapy Frequency (OT): daily Plan of Care Review Plan of Care Reviewed With: patient Outcome Evaluation: Pt S/P kyphoplasty and presents below baseline with ADLs d/t weakness and dec activity tolerance. Pt educated on spinal precautions to maintain with ADLs. Pt has AE for LBD which he was using prior to surgery. Pt SBA sinkside grooming, min A to pull up socks sitting up in bed, CGA to ambulate with SPC. OT will follow to advance pt toward PLOF. Recommend home with assist. Time Calculation: Evaluation Complexity (OT) Review Occupational Profile/Medical/Therapy History Complexity: brief/low complexity Assessment, Occupational Performance/Identification of Deficit Complexity: 1-3 performance deficits Clinical Decision Making Complexity (OT): problem focused assessment/low complexity Overall Complexity of Evaluation (OT): low complexity Time Calculation- OT Row Name 04/29/25 0858 Time Calculation- OT OT Start Time 0858 -AC OT Received On 04/29/25 -AC OT Goal Re-Cert Due Date 05/09/25 -AC Untimed Charges OT Eval/Re-eval Minutes 65 -AC Total Minutes Untimed Charges Total Minutes 65 -AC Total Minutes 65 -AC User Abreu (r) = Recorded By, (t) = Taken By, (c) = Cosigned By Initials Name Provider Type AC Lizzie Fuller OT Occupational Therapist Therapy Charges for Today Code Description Service Date Service Provider Modifiers Qty [id number] HC-OT EVAL LOW COMPLEXITY 5 04/29/2025 Lizzie Fuller OT 1 Lizzie Fuller OT 04/29/2025 documented in this encounter Plan of Treatment Pending Results Name Type Priority Associated Diagnoses Date /Time ECG 12 Lead Dyspnea ECG STAT 04/28 5:41 PM EDT documented as of this encounter Procedures Procedure Name Priority Date/Time Associated Diagnosis Comments TROPONIN Urgent 04/29/2025 12:34 PM EDT POCT GLUCOSE FINGERSTICK Routine 04/29/2025 11:16 AM EDT POCT GLUCOSE FINGERSTICK Routine 04/29/2025 7:21 AM EDT TROPONIN Urgent 04/29/2025 4:30 AM EDT PROTIME-INR Urgent 04/29/2025 4:30 AM EDT CBC (NO DIFF) Urgent 04/29/2025 4:30 AM EDT COMPREHENSIVE METABOLIC PANEL Urgent 04/29/2025 4:30 AM EDT POCT GLUCOSE FINGERSTICK Routine 04/28/2025 11:21 PM EDT BLOOD GAS, VENOUS W/CO-OXIMETRY Routine 04/28/2025 8:46 PM EDT HIGH SENSITIVITIY TROPONIN T 1HR STAT 04/28/2025 6:59 PM EDT XR CHEST 1 VW STAT 04/28/2025 6:16 PM EDT ECG 12-LEAD STAT 04/28/2025 5:41 PM EDT Procedure Note - 04/28/2025 5:41 PM EDTThis note is in progress. Test Reason : Dyspnea Blood Pressure : */* mmHG Vent. Rate : 66 BPM Atrial Rate : 66 BPM P-R Int : 208 ms QRS Dur : 102 ms QT Int : 470 ms P-R-T Axes : 46 -21 52 degrees QTcB Int : 492 ms Normal sinus rhythm Voltage criteria for left ventricular hypertrophy Nonspecific ST abnormality Prolonged QT Abnormal ECG No previous ECGs available Referred By: edmd Confirmed By: NASH TOP STAT 04/28/2025 5:33 PM EDT GOLD TOP - SST STAT 04/28/2025 5:33 PM EDT DK GREEN TOP STAT 04/28/2025 5:33 PM EDT CBC WITH AUTO DIFFERENTIAL STAT 04/28/2025 5:33 PM EDT LAVENDER TOP STAT 04/28/2025 5:33 PM EDT LIGHT BLUE TOP STAT 04/28/2025 5:33 PM EDT RAINBOW DRAW STAT 04/28/2025 5:33 PM EDT TROPONIN STAT 04/28/2025 5:33 PM EDT PROTIME-INR Add-On 04/28/2025 5:33 PM EDT CBC AND DIFFERENTIAL STAT 04/28/2025 5:33 PM EDT B-TYPE NATRIURETIC PEPTIDE STAT 04/28/2025 5:33 PM EDT COMPREHENSIVE METABOLIC PANEL STAT 04/28/2025 5:33 PM EDT SCANNED - TELEMETRY 04/28/2025 5 :31 PM EDT SCANNED - TELEMETRY 04/28/2025 5 :31 PM EDT documented in this encounter Results * (ABNORMAL) High Sensitivity Troponin T (04/29/2025 12:34 PM EDT) HS Troponin T 27(H) <22 ng/L 04/29/2025 1:19 PM EDT [facility] Blood Venipuncture / Unknown 04/29/2025 12:34 PM EDT 04/29/2025 12:57 PM EDT Narrative [facility] - 04/29/2025 1:19 PM EDT High Sensitive Troponin T Reference Range: <14.0 ng/L- Negative Female for AMI <22.0 ng/L- Negative Male for AMI >=14 - Abnormal Female indicating possible myocardial injury. >=22 - Abnormal Male indicating possible myocardial injury. Clinicians would have to utilize clinical acumen, EKG, Troponin, and serial changes to determine if it is an Acute Myocardial Infarction or myocardial injury due to an underlying chronic condition. Beth KENYON LAB BLOOD ORDERABLES Final Re sult [facility]
[address] [place] [address], * (ABNORMAL) POC Glucose Once (04/29/2025 11:16 AM EDT) Glucose 185(H) 70 - 130 mg/dL 04/29/2025 11:17 AM EDT [facility] Blood 04/29/2025 11:1 6 AM EDT 04/29/2025 11:17 AM EDT Clementina Moreno MD POINT OF CARE TEST ORDERABLES Final Result [facility]
[address] [place] [address], [place] [phone] * POC Glucose Once (04/29/2025 7:21 AM EDT) Glucose 111 70 - 130 mg/dL 04/29/2025 7:22 AM EDT [facility] Blood 04/29/2025 7:21 AM EDT 04/29/2025 7:22 AM EDT Clementina Moreno MD POINT OF CARE TEST ORDERABLES Final Result Performing Organization Address City/[facility]/ZIP Co de Phone Number [facility]
[address] [place] [address], * (ABNORMAL) Protime-INR (04/29/2025 4:30 AM EDT) Protime 15.2 12.2 - 15.3 Seconds 04/29/2025 5:18 AM EDT [facility] INR 1.13(H) 0.89 - 1.12 04/29/2025 5:18 AM EDT [facility] Blood Venipuncture / Unknown 04/29/2025 4:30 AM EDT 04/29/2025 4:59 AM EDT us Fred Walls MD LAB BLOOD ORDERABLES Final Re sult Performing Organization Address City/[facility]/ZIP Co de Phone Number [facility]
[address] [place] [address], * (ABNORMAL) High Sensitivity Troponin T (04/29/2025 4:30 AM EDT) HS Troponin T 42(H) <22 ng/L 04/29/2025 5:33 AM EDT [facility] Blood Venipuncture / Unknown 04/29/2025 4:30 AM EDT 04/29/2025 4:59 AM EDT Narrative [facility] - 04/29/2025 5:33 AM EDT High Sensitive Troponin T Reference Range: <14.0 ng/L- Negative Female for AMI <22.0 ng/L- Negative Male for AMI >=14 - Abnormal Female indicating possible myocardial injury. >=22 - Abnormal Male indicating possible myocardial injury. Clinicians would have to utilize clinical acumen, EKG, Troponin, and serial changes to determine if it is an Acute Myocardial Infarction or myocardial injury due to an underlying chronic condition. Vaishali Priest [employer] PRODUCTION MACHINE OPERATOR LAB BLOOD ORDERABLES Final Re sult [facility]
[address] [place] [address], * (ABNORMAL) Comprehensive Metabolic Panel (04/29/2025 4:30 AM EDT) Glucose 123(H) 65 - 99 mg/dL 04/29/2025 5:33 AM EDT [facility] BUN 18.7 8.0 - 23.0 mg/dL 04/29/2025 5:33 AM EDT [facility] Creatinine 0.86 0.76 - 1.27 mg/dL 04/29/2025 5:33 AM EDT [facility] Sodium 139 136 - 145 mmol/L 04/29/2025 5:33 AM EDT [facility] Potassium 3.7 3.5 - 5.2 mmol/L 04/29/2025 5:33 AM EDT [facility] Chloride 103 98 - 107 mmol/L 04/29/2025 5:33 AM EDT [facility] CO2 26.0 22.0 - 29.0 mmol/L 04/29/2025 5:33 AM EDT [facility] Calcium 9.1 8.6 - 10.5 mg/dL 04/29/2025 5:33 AM EDT [facility] Total Protein 6.0 6.0 - 8.5 g/dL 04/29/2025 5:33 AM EDT [facility] Albumin 3.9 3.5 - 5.2 g/dL 04/29/2025 5:33 AM EDT [facility] ALT (SGPT) 33 1 - 41 U/L 04/29/2025 5:33 AM EDT [facility] AST (SGOT) 28 1 - 40 U/L 04/29/2025 5:33 AM EDT [facility] Alkaline Phosphatase 70 39 - 117 U/L 04/29/2025 5:33 AM EDT [facility] LABORATORY Total Bilirubin 0.4 0.0 - 1.2 mg/dL 04/29/2025 5:33 AM EDT [facility] Globulin 2.1 gm/dL 04/29/2025 5:33 AM EDT [facility] Comment:Calculated Result A/G Ratio 1.9 g/dL 04/29/2025 5:33 AM EDT [facility] BUN/Creatinine Ratio 21.7 7.0 - 25.0 04/29/2025 5:33 AM EDT [facility] Anion Gap 10.0 5.0 - 15.0 mmol/L 04/29/2025 5:33 AM EDT [facility] eGFR 89.2 >60.0 mL/min/1.7 3 04/29/2025 5:33 AM EDT [facility] Blood Venipuncture / Unknown 04/29/2025 4:30 AM EDT 04/29/2025 4:59 AM EDT [facility] LABORATORY - 04/29/2025 5:33 AM EDT GFR Categories in Chronic Kidney Disease (CKD) GFR Category GFR (mL/min/1.73) Interpretation G1 90 or greater Normal or high (1) G2 60-89 Mild decrease (1) G3a 45-59 Mild to moderate decrease G3b 30-44 Moderate to severe decrease G4 15-29 Severe decrease G5 14 or less Kidney failure (1)In the absence of evidence of kidney disease, neither GFR category G1 or G2 fulfill the criteria for CKD. eGFR calculation 2020 CKD-EPI creatinine equation, which does not include race as a factor us Vaishali Priest FOOD PRODUCTION MACHINE OPERATOR LAB BLOOD ORDERABLES Final Re sult [facility]
[address] [place] [address], [place] [phone] * (ABNORMAL) CBC (No Diff) (04/29/2025 4:30 AM EDT) WBC 7.99 3.40 - 10.80 10*3/mm3 04/29/2025 5:10 AM EDT [facility] RBC 3.09(L) 4.14 - 5.80 10*6/mm3 04/29/2025 5:10 AM EDT [facility] Hemoglobin 8.7(L) 13.0 - 17.7 g/dL 04/29/2025 5:10 AM EDT [facility] Hematocrit 28.5(L) 37.5 - 51.0 % 04/29/2025 5:10 AM EDT [facility] MCV 92.2 79.0 - 97.0 fL 04/29/2025 5:10 AM EDT [facility] MCH 28.2 26.6 - 33.0 pg 04/29/2025 5:10 AM EDT [facility] MCHC 30.5(L) 31.5 - 35.7 g/dL 04/29/2025 5:10 AM EDT [facility] RDW 19.8(H) 12.3 - 15.4 % 04/29/2025 5:10 AM EDT [facility] RDW-SD 66.5(H) 37.0 - 54.0 fl 04/29/2025 5:10 AM EDT [facility] MPV 9.1 6.0 - 12.0 fL 04/29/2025 5:10 AM EDT [facility] Platelets 252 140 - 450 10*3/mm3 04/29/2025 5:10 AM EDT [facility] Blood Venipuncture / Unknown 04/29/2025 4:30 AM EDT 04/29/2025 4:59 AM EDT us Vaishali Priest APRN LAB BLOOD ORDERABLES Final Re sult [facility]
[address] [place] [address], [place] [phone] * (ABNORMAL) POC Glucose Once (04/28/2025 11:21 PM EDT) [facility] Glucose 169(H) 70 - 130 mg/dL 04/28/2025 11:22 PM EDT [facility] Blood 04/28/2025 11:2 1 PM EDT 04/28/2025 11:22 PM EDT Fred Walls MD POINT OF CARE TEST ORDERABLES Final Result Performing Organization Address City/[facility] Co de Phone Number [facility]
[address] [place] [address], * (ABNORMAL) Blood Gas, Venous With Co-Ox (04/28/2025 8:46 PM EDT) [facility] Site Nurse/Dr Draw 04/28/2025 8:46 PM EDT [facility] RES[facility]IR[facility] THERAPY pH, Venous 7.393 7.310 - 7.410 pH Units 04/28/2025 8:46 PM EDT [facility] RES[facility]IR[facility] THERAPY pCO2, Venous 50.3 41.0 - 51.0 mm Hg 04/28/2025 8:46 PM EDT [facility] RESPIR[facility] THERAPY pO2, Venous 28.0 27.0 - 53.0 mm Hg 04/28/2025 8:46 PM EDT [facility] RESPIR[facility] THERAPY HCO3, Venous 30.6(H) 22.0 - 28.0 mmol/L 04/28/2025 8:46 PM EDT [facility] RESPIRAT[facility] THERAPY Base Excess, Venous 4.9(H) -2.0 - 2.0 mmol/L 04/28/2025 8:46 PM EDT [facility] RES[facility]IR[facility] THERAPY Hemoglobin, Blood Gas 9.6(L) 13.5 - 17.5 g/dL 04/28/2025 8:46 PM EDT [facility] RES[facility]IR[facility] THERAPY Oxyhemoglobin Venous 44.5 % 04/15 8:46 PM EDT [facility] THERAPY Comment:84 Value below refer ence range Methemoglobin Venous 0.5 % 04/15 8:46 PM EDT [facility] THERAPY Carboxyhemoglobin Venous 1.6 % 04/28/2025 8:46 PM EDT [facility] RES[facility]IR[facility] THERAPY CO2 Content 32.2 22 - 33 mmol/L 04/28/2025 8:46 PM EDT [facility] RESPIR[facility] THERAPY Temperature 37.0 04/28/2025 8:46 PM EDT [facility] RESPIR[facility] THERAPY Barometric Pressure for Blood Gas 04/28/2025 8:46 PM EDT [facility] THERAPY Comment:N/A Modality Nasal Cannula 04/28/2025 8:46 PM EDT [facility] RES[facility] THERAPY FIO2 24 % 04/28/2025 8:46 PM EDT [facility] THERAPY Rate 0 Breaths/ minute 04/28/2025 8:46 PM EDT [facility] THERAPY PIP 0 cmH2O 04/28/2025 8:46 PM EDT [facility] THERAPY Comment:Meter: [id number] Branch Library Clerk: [id number] IPAP 0 04/28/2025 8:46 PM EDT [facility] RES[facility]IR[facility] THERAPY EPAP 0 04/28/2025 8:46 PM EDT [facility] THERAPY Venous Blood 04/28/2025 8:46 PM EDT 04/28/2025 8:46 PM EDT us Fred Walls MD LAB BLOOD ORDERABLES Final Re sult [facility] RESPIRAT[facility] THERAPY
[address] * (ABNORMAL) High Sensitivity Troponin T 1Hr (04/28/2025 6:59 PM EDT) HS Troponin T 25(H) <22 ng/L 04/28/2025 7:30 PM EDT [facility] Troponin T Numeric Delta 10(HH) Abnormal if >/=3 ng/L 04/28/2025 7:30 PM EDT [facility] Blood Venipuncture / Unknown 04/28/2025 6:59 PM EDT 04/28/2025 7:02 PM EDT Narrative [facility] - 04/28/2025 7:30 PM EDT High Sensitive Troponin T Reference Range: <14.0 ng/L- Negative Female for AMI <22.0 ng/L- Negative Male for AMI >=14 - Abnormal Female indicating possible myocardial injury. >=22 - Abnormal Male indicating possible myocardial injury. Clinicians would have to utilize clinical acumen, EKG, Troponin, and serial changes to determine if it is an Acute Myocardial Infarction or myocardial injury due to an underlying chronic condition. us Serafin Villalpando MD LAB BLOOD ORDERABLES Final R esult [facility]
[address] [place] [address], * XR Chest 1 View (04/28/2025 6:16 PM EDT) Anatomical Region Laterality Modality Body N/A Radiographic Nubia ging 04/28/2025 6:25 PM EDT Impressions 04/28/2025 6:26 PM EDT Impression: No acute cardiopulmonary disease. Electronically Signed: Connor Hall MD 04/28/2025 6:26 PM EDT Workstation ID: [id number] Narrative 04/28/2025 6:26 PM EDT XR CHEST 1 VW Date of Exam: 04/28/2025 5:54 PM EDT Indication: sob. Comparison: None available. Findings: Reticular opacity is evident bilaterally. Patient is undergone median sternotomy and valve replacement. Heart is mildly enlarged Aorta is calcified. Procedure Note Connor Hall MD - 04/28/2025 XR CHEST 1 VW Date of Exam: 04/28/2025 5:54 PM EDT Indication: sob. Comparison: None available. Findings: Reticular opacity is evident bilaterally. Patient is undergone mediansternotomy and valve replacement. Heart is mildly enlarged Aorta is calcified. IMPRESSION: Impression: No acute cardiopulmonary disease. Electronically Signed: Connor Hall MD 04/28/2025 6:26 PM EDT Workstation ID: [id number] Serafin Villalpando MD IMG DIAGNOSTIC IMAGING ORDER NANDINI Final Result * Protime-INR (04/28/2025 5:33 PM EDT) Pathologist [facility] Protime 14.2 12.2 - 15.3 Seconds 04/28/2025 9:03 PM EDT [facility] INR 1.03 0.89 - 1.12 04/28/2025 9:03 PM EDT [facility] Blood Line / Unknown 04/28/2025 5: 33 PM EDT 04/28/2025 5:38 PM EDT Vaishali Priest FOOD PRODUCTION MACHINE OPERATOR LAB BLOOD ORDERABLES Final Re sult [facility]
[address] [place] [address], * (ABNORMAL) CBC Auto Differential (04/28/2025 5:33 PM EDT) Pathologist [facility] WBC 5.30 3.40 - 10.80 10*3/mm3 04/28/2025 5:41 PM EDT [facility] RBC 3.60(L) 4.14 - 5.80 10*6/mm3 04/28/2025 5:41 PM EDT [facility] Hemoglobin 10.3(L) 13.0 - 17.7 g/dL 04/28/2025 5:41 PM EDT [facility] Hematocrit 33.3(L) 37.5 - 51.0 % 04/28/2025 5:41 PM EDT [facility] MCV 92.5 79.0 - 97.0 fL 04/28/2025 5:41 PM EDT [facility] MCH 28.6 26.6 - 33.0 pg 04/28/2025 [facility] MCHC 30.9(L) 31.5 - 35.7 g/dL 04/28/2025 5:41 [facility] RDW 19.7(H) 12.3 - 15.4 % 04/28/2025 5:41 [facility] RDW-SD 66.3(H) 37.0 - 54.0 fl 04/28/2025 5:41 [facility] MPV 8.5 6.0 - 12.0 fL 04/28/2025 5:41 [facility] Platelets 245 140 - 450 10*3/mm3 04/28/2025 5:41 PM [facility] Neutrophil % 72.1 42.7 - 76.0 % 04/28/2025 5:41 PM [facility] Lymphocyte % 10.4(L) 19.6 - 45.3 % 04/28/2025 5:41 PM [facility] Monocyte % 7.5 5.0 - 12.0 % 04/28/2025 5:41 PM [facility] Eosinophil % 7.9(H) 0.3 - 6.2 % 04/28/2025 5:41 PM [facility] Basophil % 0.8 0.0 - 1.5 % 04/28/2025 5:41 PM [facility] Immature Grans % 1.3(H) 0.0 - 0.5 % 04/28/2025 5:41 PM [facility] Neutrophils, Absolute 3.82 1.70 - 7.00 10*3/mm3 04/28/2025 5:41 PM [facility] Lymphocytes, Absolute 0.55(L) 0.70 - 3.10 10*3/mm3 04/28/2025 5:41 PM EDT [facility] Monocytes, Absolute 0.40 0.10 - 0.90 10*3/mm3 04/28/2025 5:41 PM EDT [facility] Eosinophils, Absolute 0.42(H) 0.00 - 0.40 10*3/mm3 04/28/2025 5:41 PM EDT [facility] Basophils, Absolute 0.04 0.00 - 0.20 10*3/mm3 04/28/2025 5:41 PM EDT [facility] Immature Grans, Absolute 0.07(H) 0.00 - 0.05 10*3/mm3 04/28/2025 5:41 PM EDT [facility] nRBC 0.0 0.0 - 0.2 /100 WBC 04/28/2025 5:41 PM EDT [facility] Blood Line / Unknown 04/28/2025 5: 33 PM EDT 04/28/2025 5:38 PM EDT Serafin Villalpando MD LAB BLOOD ORDERABLES Final R esult [facility]
[address] [place] [address], * High Sensitivity Troponin T (04/28/2025 5:33 PM EDT) HS Troponin T 15 <22 ng/L 04/28/2025 6:03 PM EDT [facility] Blood Line / Unknown 04/28/2025 5: 33 PM EDT 04/28/2025 5:38 PM EDT Narrative [facility] - 04/28/2025 6:03 PM EDT High Sensitive Troponin T Reference Range: <14.0 ng/L- Negative Female for AMI <22.0 ng/L- Negative Male for AMI >=14 - Abnormal Female indicating possible myocardial injury. >=22 - Abnormal Male indicating possible myocardial injury. Clinicians would have to utilize clinical acumen, EKG, Troponin, and serial changes to determine if it is an Acute Myocardial Infarction or myocardial injury due to an underlying chronic condition. Serafin Villalpando MD LAB BLOOD ORDERABLES Final R esult Performing Organization Address [facility] Co de Phone Number [facility]
[address] [place] [address], * BNP (04/28/2025 5:33 PM EDT) proBNP 420.5 0.0 - 1,800.0 pg/mL 04/28/2025 6:03 PM EDT [facility] Blood Line / Unknown 04/28/2025 5: 33 PM EDT 04/28/2025 5:38 PM EDT Narrative [facility] - 04/28/2025 6:03 PM EDT This assay is used as an aid in the diagnosis of individuals suspected of having heart failure. It can be used as an aid in the diagnosis of acute decompensated heart failure (ADHF) in patients presenting with signs and symptoms of ADHF to the emergency department (ED). In addition, NT-proBNP of <300 pg/mL indicates ADHF is not likely. Age Range Result Interpretation NT-proBNP Concentration (pg/mL: <50 Positive >450 Nash 300-450 Negative <300 50-75 Positive >900 Nash 300-900 Negative <300 >75 Positive >1800 Nash 300-1800 Negative <300 Serafin Villalpando MD LAB BLOOD ORDERABLES Final R esult Performing Organization Address [facility] Co de Phone Number [facility]
[address] [place] [address], * (ABNORMAL) Comprehensive Metabolic Panel (04/28/2025 5:33 PM EDT) Glucose 124(H) 65 - 99 mg/dL 04/28/2025 6:00 PM EDT [facility] BUN 18.5 8.0 - 23.0 mg/dL 04/28/2025 6:00 PM EDT [facility] Creatinine 0.90 0.76 - 1.27 mg/dL 04/28/2025 6:00 PM T [facility] Sodium 140 136 - 145 mmol/L 04/28/2025 6:00 PM T [facility] Potassium 4.0 3.5 - 5.2 mmol/L 04/28/2025 6:00 PM [facility] Comment:Slight hemolysis det ected by analyzer. Result may be falsely elevated. Chloride 103 98 - 107 mmol/L 04/28/2025 6:00 PM T [facility] CO2 27.0 22.0 - 29.0 mmol/L 04/28/2025 6:00 PM [facility] Calcium 9.1 8.6 - 10.5 mg/dL 04/28/2025 6:00 PM [facility] Total Protein 6.6 6.0 - 8.5 g/dL 04/28/2025 6:00 PM T [facility] Albumin 4.3 3.5 - 5.2 g/dL 04/28/2025 6:00 PM [facility] ALT (SGPT) 33 1 - 41 U/L 04/28/2025 6:00 PM [facility] AST (SGOT) 34 1 - 40 U/L 04/28/2025 6:00 PM [facility] Alkaline Phosphatase 82 39 - 117 U/L 04/28/2025 6:00 PM T [facility] Total Bilirubin 0.5 0.0 - 1.2 mg/dL 04/28/2025 6:00 PM T [facility] Globulin 2.3 gm/dL 04/28/2025 6:00 PM T [facility] Comment:Calculated Result A/G Ratio 1.9 g/dL 04/28/2025 6:00 PM [facility] BUN/Creatinine Ratio 20.6 7.0 - 25.0 04/28/2025 6:00 PM T [facility] Anion Gap 10.0 5.0 - 15.0 mmol/L 04/28/2025 6:00 PM EDT [facility] eGFR 88.0 >60.0 mL/min/1.7 3 04/28/2025 6:00 PM EDT [facility] Blood Line / Unknown 04/28/2025 5: 33 PM EDT 04/28/2025 5:38 PM EDT Narrative [facility] - 04/28/2025 6:00 PM EDT GFR Categories in Chronic Kidney Disease (CKD) GFR Category GFR (mL/min/1.73) Interpretation G1 90 or greater Normal or high (1) G2 60-89 Mild decrease (1) G3a 45-59 Mild to moderate decrease G3b 30-44 Moderate to severe decrease G4 15-29 Severe decrease G5 14 or less Kidney failure (1)In the absence of evidence of kidney disease, neither GFR category G1 or G2 fulfill the criteria for CKD. eGFR calculation 2020 CKD-EPI creatinine equation, which does not include race as a factor Serafin Villalpando MD LAB BLOOD ORDERABLES Final R esult [facility]
[address] [place] [address], * Light Blue Top (04/28/2025 5:33 PM EDT) Extra Tube Hold for add-ons. 04/28/2025 5:45 PM EDT [facility] Comment:Auto resulted Blood Line / Unknown 04/28/2025 5: 33 PM EDT 04/28/2025 5:38 PM EDT Serafin Villalpando MD LAB BLOOD ORDER ONLY Final R esult [facility]
[address] [place] [address], * Nash Top (04/28/2025 5:33 PM EDT) Extra Tube Hold for add-ons. 04/28/2025 5:45 PM EDT [facility] Comment:Auto resulted. Blood Line / Unknown 04/28/2025 5: 33 PM EDT 04/28/2025 5:38 PM EDT Serafin Villalpando MD LAB BLOOD ORDER ONLY Final R esult Performing Organization Address City/[facility]/ZIP Co de Phone Number [facility]
[address] [place] [address], * Gold Top - SST (04/28/2025 5:33 PM EDT) Extra Tube Hold for add-ons. 04/28/2025 5:45 PM EDT [facility] Comment:Auto resulted. Blood Line / Unknown 04/28/2025 5: 33 PM EDT 04/28/2025 5:38 PM EDT Serafin Villalpando MD LAB BLOOD ORDER ONLY Final R esult Performing Organization Address City/[facility]/ZIP Co de Phone Number [facility]
[address] [place] [address], * Lavender Top (04/28/2025 5:33 PM EDT) Extra Tube hold for add-on 04/28/2025 5:45 PM EDT [facility] Comment:Auto resulted Blood Line / Unknown 04/28/2025 5: 33 PM EDT 04/28/2025 5:38 PM EDT Serafin Villalpando MD LAB BLOOD ORDER ONLY Final R esult Performing Organization Address City/[facility]/ZIP Co de Phone Number [facility]
[address] [place] [address], * Green Top (Gel) (04/28/2025 5:33 PM EDT) Extra Tube Hold for add-ons. 04/28/2025 5:45 PM EDT [facility] Comment:Auto resulted. Blood Line / Unknown 04/28/2025 5: 33 PM EDT 04/28/2025 5:38 PM EDT Serafin Villalpando MD LAB BLOOD ORDER ONLY Final R esult [facility]
[address] [place] [address], * Telemetry Scan (04/28/2025 5:31 PM EDT) [facility] Onbase ECG ORDERABLES Final Result * Telemetry Scan (04/28/2025 5:31 PM EDT) [facility] Onbase ECG ORDERABLES Final Result documented in this encounter Visit Diagnoses Diagnosis Anesthesia complication- Primary Hypoxia Hypoxemia Generalized weakness Elevated troponin Other abnormal blood chemistry Closed compression fracture of L3 lumbar vertebra, sequela Acute respiratory failure with hypoxia Prostate cancer Malignant neoplasm of prostate Type 2 diabetes mellitus HTN (hypertension) Unspecified essential hypertension HLD (hyperlipidemia) Other and unspecified hyperlipidemia Rheumatoid arthritis involving multiple sites 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, latent documented in this encounter Admitting Diagnoses Diagnosis Anesthesia complication documented in this encounter Administered Medications Inactive Administered Medications - up to 3 most recent administrations Medication Order MAR Action Action Date Dose Rate Site acetaminophen (TYLENOL) 160 MG/5ML oral solution 650 mg 650 mg, Oral, Every 4 Hours PRN, Mild Pain, Starting on Janis 04/28/25 at 2315, If given for fever, use fever parameter: fever greater than 100.4 F Based on patient request - if ordered for moderate or severe pain, provider allows for administration of a medication prescribed for a lower pain scale. Do not exceed 4 grams of acetaminophen in a 24 hr period. Max dose of 2gm for AST/ALT greater than 120 units/L. If given for pain, use the following pain scale: Mild Pain = Pain Score of 1-3, CPOT 1-2 Moderate Pain = Pain Score of 4-6, CPOT 3-4 Severe Pain = Pain Score of 7-10, CPOT 5-8 acetaminophen (TYLENOL) suppository 650 mg 650 mg, Rectal, Every 4 Hours PRN, Mild Pain, Starting on Janis 04/28/25 at 2315, If given for fever, use fever parameter: fever greater than 100.4 F Based on patient request - if ordered for moderate or severe pain, provider allows for administration of a medication prescribed for a lower pain scale. Do not exceed 4 grams of acetaminophen in a 24 hr period. Max dose of 2gm for AST/ALT greater than 120 units/L. If given for pain, use the following pain scale: Mild Pain = Pain Score of 1-3, CPOT 1-2 Moderate Pain = Pain Score of 4-6, CPOT 3-4 Severe Pain = Pain Score of 7-10, CPOT 5-8 acetaminophen (TYLENOL) tablet 650 mg 650 mg, Oral, Every 4 Hours PRN, Mild Pain, Starting on Janis 04/28/25 at 2315, If given for fever, use fever parameter: fever greater than 100.4 F Based on patient request - if ordered for moderate or severe pain, provider allows for administration of a medication prescribed for a lower pain scale. Do not exceed 4 grams of acetaminophen in a 24 hr period. Max dose of 2gm for AST/ALT greater than 120 units/L. If given for pain, use the following pain scale: Mild Pain = Pain Score of 1-3, CPOT 1-2 Moderate Pain = Pain Score of 4-6, CPOT 3-4 Severe Pain = Pain Score of 7-10, CPOT 5-8 atenolol (TENORMIN) tablet 50 mg 50 mg, Oral, Daily, First dose on Fri04/29/25 at 0900, Hold for SBP less than 100, DBP less than 60, or heart rate less than 50. If a dose is held, please contact the provider. Given 04/29/2025 9:58 AM EDT 50 mg atorvastatin (LIPITOR) tablet 10 mg 10 mg, Oral, Daily, First dose on Fri04/29/25 at 0900, Avoid grapefruit juice. Given 04/29/2025 9:58 AM EDT 10 mg bisacodyl (DULCOLAX) EC tablet 5 mg 5 mg, Oral, Daily PRN, Constipation, Use if polyethylene glycol is ineffective, Starting on Janis 04/28/25 at 2315, Use if no bowel movement after 12 hours. Swallow whole. Do not crush, split, or chew tablet. bisacodyl (DULCOLAX) suppository 10 mg 10 mg, Rectal, Daily PRN, Constipation, Use if bisacodyl oral is ineffective, Starting on Janis 04/28/25 at 2315, Use if no bowel movement after 12 hours. Hold for diarrhea empagliflozin (JARDIANCE) tablet 10 mg 10 mg, Oral, Daily, First dose on Fri04/29/25 at 0900 Given 04/29/2025 9:57 AM EDT 10 mg enoxaparin sodium (LOVENOX) syringe 80 mg 80 mg, Subcutaneous, Every 12 Hours Scheduled, First dose on Fri04/29/25 at 0015, Give subcutaneous in abdomen only. 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 Caution: Look alike/sound alike drug alert Given 04/29/2025 9:57 AM EDT 25 mg lisinopril (PRINIVIL,ZESTRIL) tablet 2.5 mg 2.5 mg, Oral, Daily, First dose on Fri04/29/25 at 0900, Hold for SBP less than 100, DBP less than 60. Given 04/29/2025 9:57 AM EDT 2.5 mg melatonin tablet 2.5 mg 2.5 mg, Oral, Nightly, First dose on Fri04/29/25 at 0015 Given 04/28/2025 11:42 PM EDT 2.5 mg oxybutynin XL (DITROPAN-XL) 24 hr tablet 10 mg 10 mg, Oral, Daily, First dose on Fri04/29/25 at 0900, Do not crush or chew the capsules or tablets. The drug may not work as designed if the capsule or tablet is crushed or chewed. Swallow whole. Given 04/29/2025 9:57 AM EDT 10 mg pantoprazole (PROTONIX) EC tablet 40 mg 40 mg, Oral, Every [employer], First dose on Fri04/29/25 at 0600, Swallow whole; do not crush, split, or chew. Given 04/29/2025 6:49 AM EDT 40 mg Pharmacy to dose warfarin Continuous PRN, Starting on Fri04/28/25 at 2147, Until Fri04/29/25 at 1755, Consult, Clinician to Dose: - Pharmacist to Dose, Target INR: 2.5 - 3.5, Indications: Mechanical valveIndications:Mechanical valve polyethylene glycol (MIRALAX) packet 17 g 17 g, Oral, Daily PRN, Constipation, Use if senna-docusate is ineffective, Starting on Fri04/28/25 at 2315, Use if no bowel movement after 12 hours. Mix in 6-8 ounces of water. Use 4-8 ounces of water, tea, or juice for each 17 gram dose. predniSONE (DELTASONE) tablet 1 mg 1 mg, Oral, Daily, First dose on Fri04/29/25 at 0900, Take with food. Given 04/29/2025 9:58 AM EDT 1 mg sennosides-docusate (PERICOLACE) 8.6-50 MG per tablet 2 tablet 2 tablet, Oral, 2 Times Daily PRN, Constipation, Starting on Fri04/28/25 at 2315, Start bowel management regimen if patient has not had a bowel movement after 12 hours. sodium chloride 0.9 % flush 10 mL 10 mL, Intravenous, As Needed, Line Care, Starting on Fri04/28/25 at 1722 sodium chloride 0.9 % flush 10 mL 10 mL, Intravenous, Every 12 Hours Scheduled, First dose on Fri04/29/25 at 0015 Given 04/29/2025 9:58 AM EDT 10 mL Given 04/28/2025 11:43 PM EDT 10 mL tamsulosin (FLOMAX) 24 hr capsule 0.4 mg 0.4 mg, Oral, Daily, First dose on Fri04/29/25 at 0900, Do not crush or chew the capsules or tablets. The drug may not work as designed if the capsule or tablet is crushed or chewed. Swallow whole. If patient unable to swallow whole, contact pharmacy for alternative. Given 04/29/2025 9:57 AM EDT 0.4 mg warfarin (COUMADIN) (dosing per levels) Daily Warfarin, First dose (after last reorder) on Fri04/29/25 at 1800, Until Discontinued, Target INR: 2.5 - 3.5, Pharmacy is dosing warfarin per INR Group 2 ([place]) Hazardous Drug - Reproductive Risk Only - See Handling Guide warfarin (COUMADIN) tablet 5 mg 5 mg, Oral, Daily Warfarin, First dose on Fri04/28/25 at 2330, Food-Drug Interaction. Empty wrappers can be disposed of in the trash. Group 2 ([place]) Hazardous Drug - Reproductive Risk Only - See Handling Guide, Target INR: 2.5 - 3.5, Indications: Mechanical valveIndications:Mechanical valve Given 04/28/2025 11:42 PM EDT 5 mg documented in this encounter Active and Recently Administered Medications Times are shown in EDT. Scheduled Medication Order 04/27/2025 04/28/2025 04/29/2025 atenolol (TENORMIN) tablet 50 mg 50 mg, Oral, Daily, First dose on Fri04/29/25 at 0900, Hold for SBP less than 100, DBP less than 60, or heart rate less than 50. If a dose is held, please contact the provider. 0958 (Given - Provid er: Mariah Virgen RN) atorvastatin (LIPITOR) tablet 10 mg 10 mg, Oral, Daily, First dose on Fri04/29/25 at 0900, Avoid grapefruit juice. 0958 (Given - Provid er: Mariah Virgen RN) empagliflozin (JARDIANCE) tablet 10 mg 10 mg, Oral, Daily, First dose on Fri04/29/25 at 0900 0957 (Given - Provid er: Mariah Virgen RN) enoxaparin sodium (LOVENOX) syringe 80 mg 80 mg, Subcutaneous, Every 12 Hours Scheduled, First dose on Fri04/29/25 at 0015, Give subcutaneous in abdomen only. 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 Caution: Look alike/sound alike drug alert 0957 (Given - Provid er: Mariah Virgen RN) Insulin Lispro (humaLOG) injection 2-7 Units 2-7 Units, Subcutaneous, 4 Times Daily Before Meals & Nightly, First dose on Fri04/29/25 at 0730, Correction Insulin - Low Dose - Total Insulin Dose Less Than 40 units/day (Lean, Elderly or Renal Patients) Blood Glucose 150-199 mg/dL - 2 units Blood Glucose 200-249 mg/dL - 3 units Blood Glucose 250-299 mg/dL - 4 units Blood Glucose 300-349 mg/dL - 5 units Blood Glucose 350-400 mg/dL - 6 units Blood Glucose Greater Than 400 mg/dL - 7 units & Call Provider ([facility]) Caution: Look alike/sound alike drug alert([facility]) 0730 (Not Given - Provider: Mariah Virgen RN - Reason: Order parameters not met)1359 (Not Given - Provider: Mariah Virgen RN - Reason: Patient/family refused) lisinopril (PRINIVIL,ZESTRIL) tablet 2.5 mg 2.5 mg, Oral, Daily, First dose on Fri04/29/25 at 0900, Hold for SBP less than 100, DBP less than 60. 0957 (Given - Provid er: Mariah Virgen RN) melatonin tablet 2.5 mg 2.5 mg, Oral, Nightly, First dose on Fri04/29/25 at 0015 2342 (Given - Provider: Celia Marshall RN) oxybutynin XL (DITROPAN-XL) 24 hr tablet 10 mg 10 mg, Oral, Daily, First dose on Fri04/29/25 at 0900, Do not crush or chew the capsules or tablets. The drug may not work as designed if the capsule or tablet is crushed or chewed. Swallow whole. 0957 (Given - Provid er: Mariah Virgen RN) pantoprazole (PROTONIX) EC tablet 40 mg 40 mg, Oral, Every Manager Of Operations, First dose on Fri04/29/25 at 0600, Swallow whole; do not crush, split, or chew. 0649 (Given - Provid er: Celia Marshall RN) predniSONE (DELTASONE) tablet 1 mg 1 mg, Oral, Daily, First dose on Fri04/29/25 at 0900, Take with food. 0958 (Given - Provid er: Mariah Virgen RN) sodium chloride 0.9 % flush 10 mL 10 mL, Intravenous, Every 12 Hours Scheduled, First dose on Fri04/29/25 at 0015 2343 (Given - Provider: Celia Marshall RN) 0958 (Given - Provider: Mariah Virgen RN) tamsulosin (FLOMAX) 24 hr capsule 0.4 mg 0.4 mg, Oral, Daily, First dose on Fri04/29/25 at 0900, Do not crush or chew the capsules or tablets. The drug may not work as designed if the capsule or tablet is crushed or chewed. Swallow whole. If patient unable to swallow whole, contact pharmacy for alternative. 0957 (Given - Provid er: Mariah Virgen RN) warfarin (COUMADIN) (dosing per levels) Daily Warfarin, First dose (after last reorder) on Fri04/29/25 at 1800, Until Discontinued, Target INR: 2.5 - 3.5, Pharmacy is dosing warfarin per INR Group 2 ([place]) Hazardous Drug - Reproductive Risk Only - See Handling Guide warfarin (COUMADIN) tablet 5 mg 5 mg, Oral, Daily Warfarin, First dose on Fri04/28/25 at 2330, Food-Drug Interaction. Empty wrappers can be disposed of in the trash. Group 2 ([place]) Hazardous Drug - Reproductive Risk Only - See Handling Guide, Target INR: 2.5 - 3.5, Indications: Mechanical valve 2342 (Given - Provider: Celia Marshall RN) PRN Medication Order 04/27/2025 04/28/2025 04/29/2025 acetaminophen (TYLENOL) 160 MG/5ML oral solution 650 mg(Linked Group 1) 650 mg, Oral, Every 4 Hours PRN, Mild Pain, Starting on Janis 04/28/25 at 2315, If given for fever, use fever parameter: fever greater than 100.4 F Based on patient request - if ordered for moderate or severe pain, provider allows for administration of a medication prescribed for a lower pain scale. Do not exceed 4 grams of acetaminophen in a 24 hr period. Max dose of 2gm for AST/ALT greater than 120 units/L. If given for pain, use the following pain scale: Mild Pain = Pain Score of 1-3, CPOT 1-2 Moderate Pain = Pain Score of 4-6, CPOT 3-4 Severe Pain = Pain Score of 7-10, CPOT 5-8 acetaminophen (TYLENOL) suppository 650 mg(Linked Group 1) 650 mg, Rectal, Every 4 Hours PRN, Mild Pain, Starting on Janis 04/28/25 at 2315, If given for fever, use fever parameter: fever greater than 100.4 F Based on patient request - if ordered for moderate or severe pain, provider allows for administration of a medication prescribed for a lower pain scale. Do not exceed 4 grams of acetaminophen in a 24 hr period. Max dose of 2gm for AST/ALT greater than 120 units/L. If given for pain, use the following pain scale: Mild Pain = Pain Score of 1-3, CPOT 1-2 Moderate Pain = Pain Score of 4-6, CPOT 3-4 Severe Pain = Pain Score of 7-10, CPOT 5-8 acetaminophen (TYLENOL) tablet 650 mg(Linked Group 1) 650 mg, Oral, Every 4 Hours PRN, Mild Pain, Starting on Janis 04/28/25 at 2315, If given for fever, use fever parameter: fever greater than 100.4 F Based on patient request - if ordered for moderate or severe pain, provider allows for administration of a medication prescribed for a lower pain scale. Do not exceed 4 grams of acetaminophen in a 24 hr period. Max dose of 2gm for AST/ALT greater than 120 units/L. If given for pain, use the following pain scale: Mild Pain = Pain Score of 1-3, CPOT 1-2 Moderate Pain = Pain Score of 4-6, CPOT 3-4 Severe Pain = Pain Score of 7-10, CPOT 5-8 bisacodyl (DULCOLAX) EC tablet 5 mg(Linked Group 2) 5 mg, Oral, Daily PRN, Constipation, Use if polyethylene glycol is ineffective, Starting on Janis 04/28/25 at 2315, Use if no bowel movement after 12 hours. Swallow whole. Do not crush, split, or chew tablet. bisacodyl (DULCOLAX) suppository 10 mg(Linked Group 2) 10 mg, Rectal, Daily PRN, Constipation, Use if bisacodyl oral is ineffective, Starting on Janis 04/28/25 at 2315, Use if no bowel movement after 12 hours. Hold for diarrhea Calcium Replacement - Follow Nurse / BPA Driven Protocol Open Order & Select [facility] Electrolyte Replacement Protocol Algorithm to View Details dextrose (D50W) (25 g/50 mL) IV injection 25 g 25 g, Intravenous, Every 15 Minutes PRN, Low Blood Sugar, Blood Sugar Less Than 70, Starting on Janis 04/28/25 at 2315, Blood sugar less than 70; patient has IV access - Unresponsive, NPO or Unable To Safely Swallow dextrose (GLUTOSE) oral gel 15 g 15 g, Oral, Every 15 Minutes PRN, Low Blood Sugar, Blood sugar less than 70, Starting on Janis 04/28/25 at 2315, BS<70, Patient Alert, Is not NPO, Can safely swallow. glucagon (GLUCAGEN) injection 1 mg 1 mg, Intramuscular, Every 15 Minutes PRN, Low Blood Sugar, Blood Glucose Less Than 70, Starting on Janis 04/28/25 at 2315, Blood Glucose Less Than 70 - Patient Without IV Access - Unresponsive, NPO or Unable To Safely Swallow Reconstitute powder for injection by adding 1 mL of sludge filtration operator-supplied sterile diluent or sterile water for injection to a vial containing 1 mg of the drug, to provide solutions containing 1 mg/mL. Shake vial gently to dissolve. HYDROcodone-acetaminophen (NORCO) 5-325 MG per tablet 1 tablet 1 tablet, Oral, Every 8 Hours PRN, Mild Pain, Moderate Pain, Starting on Janis 04/28/25 at 2315, Based on patient request - if ordered for moderate or severe pain, provider allows for administration of a medication prescribed for a lower pain scale. [[place]] Do not exceed 4 grams of acetaminophen in a 24 hr period. Max dose of 2gm for AST/ALT greater than 120 units/L If given for pain, use the following pain scale: Mild Pain = Pain Score of 1-3, CPOT 1-2 Moderate Pain = Pain Score of 4-6, CPOT 3-4 Severe Pain = Pain Score of 7-10, CPOT 5-8 Magnesium Standard Dose Replacement - Follow Nurse / BPA Driven Protocol Open Order & Select [facility] Electrolyte Replacement Protocol Algorithm to View Details methocarbamol (ROBAXIN) tablet 750 mg 750 mg, Oral, Every 8 Hours PRN, Muscle Spasms, Starting on Janis 04/28/25 at 2315 nitroglycerin (NITROSTAT) SL tablet 0.4 mg 0.4 mg, Sublingual, Every 5 Minutes PRN, Chest Pain, Starting on Janis 04/28/25 at 2315, If Pain Unrelieved After 3 Doses Notify MD May administer up to 3 doses per episode. Hold if SBP less than 100. Pharmacy to dose warfarin Continuous PRN, Starting on Janis 04/28/25 at 2147, Until Fri04/29/25 at 1755, Consult, Clinician to Dose: - Pharmacist to Dose, Target INR: 2.5 - 3.5, Indications: Mechanical valve Phosphorus Replacement - Follow Nurse / BPA Driven Protocol Open Order & Select [facility] Electrolyte Replacement Protocol Algorithm to View Details polyethylene glycol (MIRALAX) packet 17 g(Linked Group 2) 17 g, Oral, Daily PRN, Constipation, Use if senna-docusate is ineffective, Starting on Janis 04/28/25 at 2315, Use if no bowel movement after 12 hours. Mix in 6-8 ounces of water. Use 4-8 ounces of water, tea, or juice for each 17 gram dose. Potassium Replacement - Follow Nurse / BPA Driven Protocol Open Order & Select [facility] Electrolyte Replacement Protocol Algorithm to View Details sennosides-docusate (PERICOLACE) 8.6-50 MG per tablet 2 tablet(Linked Group 2) 2 tablet, Oral, 2 Times Daily PRN, Constipation, Starting on Janis 04/28/25 at 2315, Start bowel management regimen if patient has not had a bowel movement after 12 hours. sodium chloride 0.9 % flush 10 mL 10 mL, Intravenous, As Needed, Line Care, Starting on Janis 04/28/25 at 1722 sodium chloride 0.9 % flush 10 mL 10 mL, Intravenous, As Needed, Line Care, Starting on Janis 8/14/25 at 2315 Linked Groups Order Group 1: acetaminophen (TYLENOL) tablet 650 mgJump to med 650 mg, Oral, Every 4 Hours PRN, Mild Pain, Starting on Janis 04/28/25 at 2315, If given for fever, use fever parameter: fever greater than 100.4 F Based on patient request - if ordered for moderate or severe pain, provider allows for administration of a medication prescribed for a lower pain scale. Do not exceed 4 grams of acetaminophen in a 24 hr period. Max dose of 2gm for AST/ALT greater than 120 units/L. If given for pain, use the following pain scale: Mild Pain = Pain Score of 1-3, CPOT 1-2 Moderate Pain = Pain Score of 4-6, CPOT 3-4 Severe Pain = Pain Score of 7-10, CPOT 5-8 Or acetaminophen (TYLENOL) 160 MG/5ML oral solution 650 mgJump to med 650 mg, Oral, Every 4 Hours PRN, Mild Pain, Starting on Janis 04/28/25 at 2315, If given for fever, use fever parameter: fever greater than 100.4 F Based on patient request - if ordered for moderate or severe pain, provider allows for administration of a medication prescribed for a lower pain scale. Do not exceed 4 grams of acetaminophen in a 24 hr period. Max dose of 2gm for AST/ALT greater than 120 units/L. If given for pain, use the following pain scale: Mild Pain = Pain Score of 1-3, CPOT 1-2 Moderate Pain = Pain Score of 4-6, CPOT 3-4 Severe Pain = Pain Score of 7-10, CPOT 5-8 Or acetaminophen (TYLENOL) suppository 650 mgJump to med 650 mg, Rectal, Every 4 Hours PRN, Mild Pain, Starting on Janis 04/28/25 at 2315, If given for fever, use fever parameter: fever greater than 100.4 F Based on patient request - if ordered for moderate or severe pain, provider allows for administration of a medication prescribed for a lower pain scale. Do not exceed 4 grams of acetaminophen in a 24 hr period. Max dose of 2gm for AST/ALT greater than 120 units/L. If given for pain, use the following pain scale: Mild Pain = Pain Score of 1-3, CPOT 1-2 Moderate Pain = Pain Score of 4-6, CPOT 3-4 Severe Pain = Pain Score of 7-10, CPOT 5-8 Group 2: sennosides-docusate (PERICOLACE) 8.6-50 MG per tablet 2 tabletJump to med 2 tablet, Oral, 2 Times Daily PRN, Constipation, Starting on Janis 04/28/25 at 2315, Start bowel management regimen if patient has not had a bowel movement after 12 hours. And polyethylene glycol (MIRALAX) packet 17 gJump to med 17 g, Oral, Daily PRN, Constipation, Use if senna-docusate is ineffective, Starting on Janis 04/28/25 at 2315, Use if no bowel movement after 12 hours. Mix in 6-8 ounces of water. Use 4-8 ounces of water, tea, or juice for each 17 gram dose. And bisacodyl (DULCOLAX) EC tablet 5 mgJump to med 5 mg, Oral, Daily PRN, Constipation, Use if polyethylene glycol is ineffective, Starting on Janis 04/28/25 at 2315, Use if no bowel movement after 12 hours. Swallow whole. Do not crush, split, or chew tablet. And bisacodyl (DULCOLAX) suppository 10 mgJump to med 10 mg, Rectal, Daily PRN, Constipation, Use if bisacodyl oral is ineffective, Starting on Janis 04/28/25 at 2315, Use if no bowel movement after 12 hours. Hold for diarrhea documented in this encounter Care Teams Public Health Physician Relationship Specialty Start Date End Date Provider, [place] [address] PCP - General 04/28/25 documented as of this encounter
--- NOTE | 2025-05-09 09:38 | EXP.PAIN.SOA ---
[facility] Disclaimer: The information contained in this section may have been updated after the patient was seen, as this information can be updated by other users. Medical History Compression fracture of L3 vertebra Rheumatoid arthritis Compression fracture of L1 lumbar vertebra Low back pain Prostate CA Strain of lumbar paraspinal muscle Latent tuberculosis Abnormal EKG Sinus bradycardia HLD (hyperlipidemia) HTN (hypertension) emt intermediate current use of anticoagulant Surgical History H/O mechanical aortic valve replacement Family History Other No significant family history Social History Smoking Status: Never smoker alcohol intake: never substance use type: denies use current occupational status: other Travel in the last 8 weeks?: None household members: spouse housing: house caffeine: Yes PM Subjective & Objective Subjective Subjective:: Patient is a pleasant 79-year-old male who presents today for follow-up after his kyphoplasty procedure of L3. Patient did have a little additional excitement the day of this procedure where he had stopped breathing and ended up having to be admitted to the hospital for observation. Patient states that everything had been going extremely well from that procedure and he was really not having any pain. He states that he had noticed improvement even getting out of the ambulance that day. Patient states last however he was working around his house and twisted wrong and has since had low back pain that is really bothersome. He does state that he feels like it is still very similar and does have concerns that he may have done something significant. Patient had been on chronic steroids and just finished about a week and a half ago. Patient does have a significant history of prostate cancer with radiation treatment. Patient is still using his compounded cream and methocarbamol with some improvement. Patient does also still have some pain medication and is using his back brace. His Hugo has been reviewed and is appropriate. Review of Systems: General: No recent weight changes, no fever, no sleep disturbances Respiratory: No cough, no shortness of air, no recurring pulmonary infections Cardiovascular/peripheral vascular: No chest pain, no palpitations, no edema, no shortness of breath Gastrointestinal: No new onset incontinence, normal bowel movements reported Genitourinary: No new onset incontinence Musculoskeletal: Low back pain Psychiatric: [Normal mood/affect] Neurological: [Denies weakness in extremities], [denies balance issues] Pain at rest (0-10 scale): 5 Objective Objective:: Physical Exam: General: Alert and oriented x3, no acute distress, pleasant and cooperative Lungs: Respirations even and unlabored, symmetrical chest expansion Eyes: PERRL Musculoskeletal: Flexion and extension of lumbar [spine] somewhat guarded secondary to pain, [antalgic gait noted] point tenderness of lower lumbar spine Neurological: Speech clear, no gross sensory deficit Has patient had previous pain injection?: No Conservative treatment options previously tried: Home exercise plan Length of treatment: Longer than 12 weeks Meds Home Medications and Allergies Home Medications ?Medication ?Instructions ?Recorded ?Confirmed ?Type tamsulosin 0.4 mg capsule 0.8 mg PO DAILY 09/10/23 05/09/25 History dapagliflozin propanediol 10 mg See Rx Instructions .Route 03/29/24 05/09/25 Rx tablet .COMPLEX #90 tabs warfarin 4 mg tablet See Rx Instructions .Route 03/29/24 05/09/25 Rx .COMPLEX #120 tabs omeprazole 20 mg capsule,delayed 20 mg PO DAILY 06/21/24 05/09/25 History release oxybutynin chloride 10 mg 10 mg PO DAILY 09/23/24 05/09/25 History tablet,extended release 24 hr leuprolide acetate (6 month) 45 mg 45 mg IM Q6 12/14/24 05/09/25 History intramuscular syringe kit (Lupron Depot) polyethylene glycol 3350 17 17 g PO DAILY 4 days #68 grams 12/14/24 05/09/25 Rx gram/dose oral powder (Miralax) lisinopril 2.5 mg tablet 2.5 mg PO DAILY #90 tabs 12/20/24 05/09/25 Rx hydrochlorothiazide 25 mg tablet 25 mg PO DAILY #90 tabs 12/27/24 05/09/25 Rx abatacept 125 mg/mL subcutaneous 125 mg SQ .monthy 01/07/25 05/09/25 History auto-injector (Orencia ClickJect) calcium 600 mg (as See Rx Instructions PO BID #60 caps 01/13/25 05/09/25 Rx carbonate)-vitamin D3 12.5 mcg (500 unit) capsule (Calcium with Vit D3) atenolol 50 mg tablet 50 mg PO DAILY BLOOD PRESSURE #90 02/28/25 05/09/25 Rx tabs glipizide 10 mg tablet 10 mg PO DAILY #90 tabs 03/22/25 05/09/25 Rx simvastatin 20 mg tablet 20 mg PO DAILY #90 tabs 03/22/25 05/09/25 Rx methocarbamol 750 mg tablet 750 mg PO TID #90 tabs 03/23/25 05/09/25 Rx enoxaparin 80 mg/0.8 mL 80 mg (0.8 mL) SQ .COMPLEX 15 days 04/20/25 05/09/25 Rx subcutaneous syringe (Lovenox) #12 mL hydrocodone 5 mg-acetaminophen 325 1 tab PO Q8H PRN pain #90 tabs 04/25/25 05/09/25 Rx mg tablet New Prescriptions to Start Prescriptions: Allergies Allergy/AdvReac Type Severity Reaction Status Date / Time No Known Allergies Allergy Verified 04/06/25 13:53 Assessment and Plan *Assessment and plan (1) Osteopenia: Status: Acute Category: Medical Code(s): M85.80 - Other specified disorders of bone density and structure, unspecified site (2) Acute low back pain: Status: Acute Category: Medical Code(s): M54.50 - Low back pain, unspecified Plan Patient did complete his x-ray imaging of his lumbar spine and it did show mild height loss at the L2 vertebra that was not previously noted on his last MRI. We will reach out to the patient and let him know that we are proceeding forward with ordering the lumbar MRI without contrast to rule out another acute compression fracture. We will follow-up with him after this imaging. FINDINGS: AP and lateral views of the lumbar spine were obtained. There is no prior exam for comparison. There are changes from an L3 kyphoplasty, that has been performed in the interval since the prior MRI of 02/15/2025. There may have been mild loss of height of the L2 vertebral body since the prior MRI. Overall exam quality is markedly limited by patient positioning. Multilevel degenerative disc disease is present in the lumbar region. No acute paraspinal abnormality. IMPRESSION: Changes from an L3 kyphoplasty, performed in the interval since the prior MR of 02/15/2025. There may have been mild loss of height of the L2 vertebral body since the prior exam. Overall exam quality is limited by positioning, consider CT for further evaluation. Reviewed, Interpreted and Dictated by Jessica Whitfield MD Transcribed by Leia Rosales Authenticated and [facility] Patient has been instructed to contact the clinic with any concerns before the next appointment. Dr. Negro has reviewed this note and agrees with this plan of care. This note was dictated using voice recognition software and make contain errors or omissions. All injections are used with Lidocaine, Bupivacaine and dexamethasone. Occasionally urine drug screen is needed to verify patient's compliance with our office pain contract. This is ordered based off specific treatments related to chronic pain with the potential to abuse certain medications.
--- NOTE | 2025-05-09 10:04 | XR_ITS ---
FINAL REPORT CLINICAL HISTORY: Low back pain, kypho f/u COMPARISON: MRI 03/14/2025 FINDINGS: AP and lateral views of the lumbar spine were obtained. There is no prior exam for comparison. There are changes from an L3 kyphoplasty, that has been performed in the interval since the prior MRI of 02/15/2025. There may have been mild loss of height of the L2 vertebral body since the prior MRI. Overall exam quality is markedly limited by patient positioning. Multilevel degenerative disc disease is present in the lumbar region. No acute paraspinal abnormality. IMPRESSION: Changes from an L3 kyphoplasty, performed in the interval since the prior MR of 02/15/2025. There may have been mild loss of height of the L2 vertebral body since the prior exam. Overall exam quality is limited by positioning, consider CT for further evaluation. Reviewed, Interpreted and Dictated by Jessica Whitfield MD Transcribed by Leia Rosales Authenticated and . [facility]
[2025-05-09 10:08] VITALS: BP 125/62; PULSE 72; RESP 18; O2SAT 98; BMI 24.3
--- OUTSIDE RECORDS SUMMARY | 2025-05-09 10:08 | XMS_ITS | Clinical Summary ---
Author Organization [employer] ([place], [place], [place], [place]) Address [address] [place] [address] Care Team Providers Care Inspecting Supervisor Name Role Phone Tristan Billings DO Primary Care Provider [phone] Allergies No known active allergies Medications glipiZIDE [...] any time in the past 12 m [facility], were you homeless or living in a long-term (including now)? No 08/14/2024 Utilities Answer Date [...] living situation today? I have a [facility] place to live 08/10/2024 Think [...] Do you speak a language other than Italian at [facility]? No 08/10/2024 Do you want help with [...] Advance Directives For more information, please contact: [phone] Documents on File Type Date Recorded Patient Soda Jerker Expl anation Advance Directives and Living Will 08/10/2024 * Full Code (Latest Code Status on File) Date Activated Date Inactivated Comments 08/10/2024 2:42 PM 08/15/2024 4:37 PM Care Teams Inspecting Supervisor Relationship Specialty Start Date End Date Tristan Billings DO PCP - General Internal Medicine 08/10/24
--- OUTSIDE RECORDS SUMMARY | 2025-05-09 10:08 | XMS_ITS | Clinical Summary ---
Author Organization [facility] Address [address] [place] [address] Care Team Providers Care Flower Shop Manager Name Role Phone Provider, No Known Primary Care Provider Unavail able Allergies No known active allergies Medications atenolol (TENORMIN) 50 MG tablet Take 1 tablet by mouth Daily. Active dapagliflozin (FARXIGA) 5 MG tablet tablet Take 2 tablets by mouth Daily. Active enoxaparin sodium (LOVENOX) 80 MG/0.8ML solution prefilled syringe syringe Inject 0.8 mL under the skin into the appropriate area as directed Every 12 (Twelve) Hours. Active glipizide (GLUCOTROL) 10 MG tablet Take 1 tablet by mouth Daily. Active hydroCHLOROthi azide 25 MG tablet Take 1 tablet by mouth Daily. Active HYDROcodone-ac etaminophen (NORCO) 5-325 MG per tablet Take 1 tablet by mouth Every 8 (Eight) Hours As Needed for Mild Pain or Moderate Pain. Active lisinopril (PRINIVIL,ZEST RIL) 2.5 MG tablet Take 1 tablet by mouth Daily. Active methocarbamol (ROBAXIN) 750 MG tablet Take 1 tablet by mouth 3 (Three) Times a Day. Active omeprazole (priLOSEC) 20 MG capsule Take 1 capsule by mouth Daily. Active oxybutynin XL (DITROPAN-XL) 10 MG 24 hr tablet Take 1 tablet by mouth Daily. Active predniSONE (DELTASONE) 1 MG tablet Take 1 tablet by mouth Daily. Last dose scheduled to be 04/30/2025 Active simvastatin (ZOCOR) 20 MG tablet Take 1 tablet by mouth Every Night. Active tamsulosin (FLOMAX) 0.4 MG capsule 24 hr capsule Take 1 capsule by mouth Daily. Active warfarin (COUMADIN) 4 MG tablet Take 1 tablet by mouth Daily. Active glipizide (GLUCOTROL XL) 10 MG 24 hr tablet Take 1 tablet by mouth Daily. 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 Encounters Date Type Department Care Team Description 04/28/2025 5:19 PM EDT - 04/29/2025 3:55 PM EDT Hospital Encounter [address] [place] [address] Serafin Villalpando MD Frandina, John L, MD Seibert-Jacobs, Clementina Romero MD Hypoxia (Primary Dx); Generalized weakness; Elevated troponin Discharge Disposition: Home or Self Care 04/28/2025 Travel from Last 3 Months Social History Tobacco Use Types Packs/Day Years [...] Mass Index 24.37 04/28/2025 10:30 PM EDT Plan of Treatment Health Maintenance Due Date Last Done Comments ANNUAL WELLNESS VISIT 1945 HEMOGLOBIN A1C 1947 HEPATITIS C SCREENING 1947 LIPID PANEL 1947 DIABETIC EYE EXAM 1957 DIABETIC FOOT EXAM 1957 URINE MICROALBUMIN-CREATININ E RATIO (uACR) 1957 Pneumococcal Vaccine 50+ (1 of 2 - PCV) 1966 ZOSTER VACCINE (1 of 2) 1997 TDAP/TD VACCINES (2 - Tdap) 07/24/2020 07/24/2010 RSV Vaccine - Adults (1 - 1- dose 75+ series) 2022 COVID-19 Vaccine (3 - 4-25 season) 05/16/202406/2021, 10/25/2020 INFLUENZA VACCINE 06/15/2025 06/26/2023, , 06/14/2016 Procedures Procedure Name Priority Date/Time Associated Diagnosis Comments TROPONIN Urgent 04/29/2025 12:34 PM EDT POCT GLUCOSE FINGERSTICK Routine 04/29/2025 11:16 AM EDT POCT GLUCOSE FINGERSTICK Routine 04/29/2025 7:21 AM EDT TROPONIN Urgent 04/29/2025 4:30 AM EDT COMPREHENSIVE METABOLIC PANEL Urgent 04/29/2025 4:30 AM EDT CBC (NO DIFF) Urgent 04/29/2025 4:30 AM EDT PROTIME-INR Urgent 04/29/2025 4:30 AM EDT POCT GLUCOSE [...] ECGs available Referred By: edmd Confirmed By: CBC AND DIFFERENTIAL STAT 04/28/2025 5:33 PM EDT LIGHT BLUE TOP STAT 04/28/2025 5:33 PM EDT NASH TOP STAT 04/28/2025 5:33 PM EDT GOLD TOP - SST STAT 04/28/2025 5:33 PM EDT LAVENDER TOP STAT 04/28/2025 5:33 PM EDT DK GREEN TOP STAT 04/28/2025 5:33 PM EDT PROTIME-INR Add-On 04/28/2025 5:33 PM EDT CBC WITH AUTO DIFFERENTIAL STAT 04/28/2025 5:33 PM EDT TROPONIN STAT 04/28/2025 5:33 PM EDT B-TYPE NATRIURETIC PEPTIDE STAT 04/28/2025 5:33 PM EDT COMPREHENSIVE METABOLIC PANEL STAT 04/28/2025 5:33 PM EDT RAINBOW DRAW STAT 04/28/2025 5:33 PM EDT SCANNED - TELEMETRY 04/28/2025 5 :31 PM EDT SCANNED - TELEMETRY 04/28/2025 5 :31 PM EDT from Last 3 Months Results * (ABNORMAL) High Sensitivity Troponin T (04/29/2025 12:34 PM EDT) Only the most recent of3 resultswithin the time period is included. [facility] [address] HS Troponin T 27(H) <22 ng/L 04/29/2025 1:19 PM EDT [facility] Blood Venipuncture / Unknown 04/29/2025 12:34 PM EDT 04/29/2025 12:57 PM EDT Narrative [facility] - 04/29/2025 1:19 PM EDT [...] [place] LAB BLOOD ORDERABLES Final Re sult Performing Organization Address City/[facility]/ZIP Co de Phone Number [facility]
[address] [place] [address], * (ABNORMAL) POC Glucose Once (04/29/2025 11:16 AM EDT) Only the most recent of3 resultswithin the time period is included. Glucose 185(H) 70 - 130 mg/dL 04/29/2025 11:17 AM EDT [facility] Blood 04/29/2025 11:1 6 AM EDT 04/29/2025 11:17 AM EDT Clementina Moreno MD POINT OF CARE TEST ORDERABLES Final Result Performing Organization Address City/[facility]/ZIP Co de Phone Number [facility]
[address] [place] [address], [place] [phone] * (ABNORMAL) Protime-INR (04/29/2025 4:30 AM EDT) Only the most recent of2 resultswithin the time period is included. Protime 15.2 12.2 - 15.3 Seconds 04/29/2025 5:18 AM EDT [facility] INR 1.13(H) 0.89 - 1.12 04/29/2025 5:18 AM EDT [facility] Blood Venipuncture / Unknown 04/29/2025 4:30 AM EDT 04/29/2025 4:59 AM EDT Tristan Carr MD LAB BLOOD ORDERABLES Final Re sult [facility]
[address] [place] [address], * (ABNORMAL) CBC (No Diff) (04/29/2025 4:30 AM EDT) WBC 7.99 3.40 - 10.80 10*3/mm3 04/29/2025 5:10 AM EDT [facility] RBC 3.09(L) 4.14 - 5.80 10*6/mm3 04/29/2025 5:10 AM EDT [facility] Hemoglobin 8.7(L) 13.0 - 17.7 g/dL 04/29/2025 5:10 AM EDT [facility] Hematocrit 28.5(L) 37.5 - 51.0 % 04/29/2025 5:10 AM EDT [facility] MCV 92.2 79.0 - 97.0 fL 04/29/2025 5:10 AM EDT [facility] MCH 28.2 26.6 - 33.0 pg 04/29/2025 5:10 AM EDT [facility] MCHC 30.5(L) 31.5 - 35.7 g/dL 04/29/2025 5:10 AM EDT [facility] RDW 19.8(H) 12.3 - 15.4 % 04/29/2025 5:10 AM EDT [facility] RDW-SD 66.5(H) 37.0 - 54.0 fl 04/29/2025 5:10 AM EDT [facility] MPV 9.1 6.0 - 12.0 fL 04/29/2025 5:10 AM EDT [facility] Platelets 252 140 - 450 10*3/mm3 04/29/2025 5:10 AM EDT [facility] Blood Venipuncture / Unknown 04/29/2025 4:30 AM EDT 04/29/2025 4:59 AM EDT us Vaishali Priest METAL BONDER LAB BLOOD ORDERABLES Final Re sult [facility]
[address] [place] [address], * (ABNORMAL) Comprehensive Metabolic Panel (04/29/2025 4:30 AM EDT) Only the most recent of2 resultswithin the time period is included. Glucose 123(H) 65 - 99 mg/dL 04/29/2025 5:33 AM EDT [facility] BUN 18.7 8.0 - 23.0 mg/dL 04/29/2025 5:33 AM EDT [facility] Creatinine 0.86 0.76 - 1.27 mg/dL 04/29/2025 5:33 AM EDT [facility] Sodium 139 136 - 145 mmol/L 04/29/2025 5:33 AM EDT [facility] Potassium 3.7 3.5 - 5.2 mmol/L 04/29/2025 5:33 AM EDT [facility] Chloride 103 98 - 107 mmol/L 04/29/2025 5:33 AM EDT [facility] CO2 26.0 22.0 - 29.0 mmol/L 04/29/2025 5:33 AM EDT [facility] Calcium 9.1 8.6 - 10.5 mg/dL 04/29/2025 5:33 AM EDT [facility] Total Protein 6.0 6.0 - 8.5 g/dL 04/29/2025 5:33 AM EDT [facility] Albumin 3.9 3.5 - 5.2 g/dL 04/29/2025 5:33 AM EDT [facility] ALT (SGPT) 33 1 - 41 U/L 04/29/2025 5:33 AM EDT [facility] AST (SGOT) 28 1 - 40 U/L 04/29/2025 5:33 AM EDT [facility] Alkaline Phosphatase 70 39 - 117 U/L 04/29/2025 5:33 AM EDT [facility] Total Bilirubin 0.4 0.0 - 1.2 mg/dL 04/29/2025 5:33 AM EDT [facility] Globulin 2.1 gm/dL 04/29/2025 5:33 AM T [facility] Comment:Calculated Result A/G Ratio 1.9 g/dL 04/29/2025 5:33 AM EDT [facility] BUN/Creatinine Ratio 21.7 7.0 - 25.0 04/29/2025 5:33 AM EDT [facility] Anion Gap 10.0 5.0 - 15.0 mmol/L 04/29/2025 5:33 AM T [facility] eGFR 89.2 >60.0 mL/min/1.7 3 04/29/2025 5:33 AM T [facility] Blood Venipuncture / Unknown 04/29/2025 4:30 AM EDT 04/29/2025 4:59 AM EDT [facility] - 04/29/2025 5:33 AM EDT GFR [...] does not include race as a factor Vaishali Priest APRN LAB BLOOD ORDERABLES Final Re sult [facility]
[address] [place] [address], * (ABNORMAL) Blood Gas, Venous With Co-Ox (04/28/2025 8:46 PM EDT) Site Nurse/Dr Draw 04/28/2025 8:46 PM EDT [facility] pH, Venous 7.393 7.310 - 7.410 pH Units 04/28/2025 8:46 PM EDT [facility] pCO2, Venous 50.3 41.0 - 51.0 mm Hg 04/28/2025 8:46 PM EDT [facility] pO2, Venous 28.0 27.0 - 53.0 mm Hg 04/28/2025 8:46 PM EDT [facility] HCO3, Venous 30.6(H) 22.0 - 28.0 mmol/L 04/28/2025 8:46 PM EDT [facility] Base Excess, Venous 4.9(H) -2.0 - 2.0 mmol/L 04/28/2025 8:46 PM EDT [facility] Hemoglobin, Blood Gas 9.6(L) 13.5 - 17.5 g/dL 04/28/2025 8:46 PM EDT [facility] Oxyhemoglobin Venous 44.5 % 04/15 8:46 PM EDT [facility] Comment:84 Value below refer ence range Methemoglobin Venous 0.5 % 04/15 8:46 PM EDT [facility] Carboxyhemoglobin Venous 1.6 % 04/28/2025 8:46 PM EDT [facility] CO2 Content 32.2 22 - 33 mmol/L 04/28/2025 8:46 PM EDT [facility] Temperature 37.0 04/28/2025 8:46 PM EDT [facility] Barometric Pressure for Blood Gas 04/28/2025 8:46 PM EDT [facility] Comment:N/A Modality Nasal Cannula 04/28/2025 8:46 PM EDT [facility] FIO2 24 % 04/28/2025 8:46 PM EDT [facility] Rate 0 Breaths/ minute 04/28/2025 8:46 PM EDT [facility] PIP 0 cmH2O 04/28/2025 8:46 PM EDT [facility] Comment:Meter: [id number] Telecom Assistant: [id number] IPAP 0 04/28/2025 8:46 PM EDT [facility] EPAP 0 04/28/2025 8:46 PM EDT [facility] Venous Blood 04/28/2025 8:46 PM EDT 04/28/2025 8:46 PM EDT us Tristan Carr MD LAB BLOOD ORDERABLES Final Re sult [facility]
[address] [place] [address], * (ABNORMAL) High Sensitivity Troponin T 1Hr (04/28/2025 6:59 PM EDT) HS Troponin T 25(H) <22 ng/L 04/28/2025 7:30 PM EDT [facility] Troponin T Numeric Delta 10(HH) Abnormal if >/=3 ng/L 04/28/2025 7:30 PM EDT [facility] Blood Venipuncture / Unknown 04/28/2025 6:59 PM EDT 04/28/2025 7:02 PM EDT Narrative [facility] - 04/28/2025 7:30 PM EDT [...] MD LAB BLOOD ORDERABLES Final R esult [facility]
[address] [place] [address], * XR Chest 1 View (04/28/2025 6:16 PM EDT) Anatomical Region Laterality Modality Body N/A Radiographic Nubia ging 04/28/2025 6:25 PM EDT Impressions 04/28/2025 6:26 PM EDT Impression: No acute cardiopulmonary disease. Electronically Signed: Connor Hall MD 04/28/2025 6:26 PM EDT Workstation ID: [id number] Narrative 04/28/2025 6:26 PM EDT XR CHEST [...] MD 04/28/2025 6:26 PM EDT Workstation ID: [id number] Serafin Villalpando MD IMG DIAGNOSTIC IMAGING ORDER NANDINI Final Result * Nash Top (04/28/2025 5:33 PM EDT) Extra Tube Hold for add-ons. 04/28/2025 5:45 PM EDT [facility] Comment:Auto resulted. Blood Line / Unknown 04/28/2025 5: 33 PM EDT 04/28/2025 5:38 PM EDT Serafin Villalpando MD LAB BLOOD ORDER ONLY Final R esult Performing Organization Address City/[facility]/ZIP Co de Phone Number [facility]
[address] [place] [address], * Gold Top - SST (04/28/2025 5:33 PM EDT) Extra Tube Hold for add-ons. 04/28/2025 5:45 PM EDT [facility] Comment:Auto resulted. Blood Line / Unknown 04/28/2025 5: 33 PM EDT 04/28/2025 5:38 PM EDT Serafin Villalpando MD LAB BLOOD ORDER ONLY Final R esult Performing Organization Address [facility]/[place] Co de Phone Number [facility]
[address] [place] [address], * Green Top (Gel) (04/28/2025 5:33 PM EDT) Extra Tube Hold for add-ons. 04/28/2025 5:45 PM EDT [facility] Comment:Auto resulted. Blood Line / Unknown 04/28/2025 5: 33 PM EDT 04/28/2025 5:38 PM EDT Serafin Villalpando MD LAB BLOOD ORDER ONLY Final R esult Performing Organization Address [facility]/[place] Co de Phone Number [facility]
[address] [place] [address], * (ABNORMAL) CBC Auto Differential (04/28/2025 5:33 PM EDT) WBC 5.30 3.40 - 10.80 10*3/mm3 04/28/2025 5:[facility] RBC 3.60(L) 4.14 - 5.80 10*6/mm3 04/28/2025 5:41 PM [facility] Hemoglobin 10.3(L) 13.0 - 17.7 g/dL 04/28/2025 5:41 PM [facility] Hematocrit 33.3(L) 37.5 - 51.0 % 04/28/2025 5:41 PM EDT [facility] MCV 92.5 79.0 - 97.0 fL 04/28/2025 5:41 PM [facility] MCH 28.6 26.6 - 33.0 pg 04/28/2025 5:41 PM [facility] MCHC 30.9(L) 31.5 - 35.7 g/dL 04/28/2025 5:41 PM [facility] RDW 19.7(H) 12.3 - 15.4 % 04/28/2025 5:41 PM [facility] RDW-SD 66.3(H) 37.0 - 54.0 fl 04/28/2025 5:41 PM [facility] MPV 8.5 6.0 - 12.0 fL 04/28/2025 5:41 PM [facility] Platelets 245 140 - 450 10*3/mm3 04/28/2025 5:41 PM [facility] Neutrophil % 72.1 42.7 - 76.0 % 04/28/2025 5:41 PM [facility] Lymphocyte % 10.4(L) 19.6 - 45.3 % 04/28/2025 5:41 PM [facility] Monocyte % 7.5 5.0 - 12.0 % 04/28/2025 5:41 PM [facility] Eosinophil % 7.9(H) 0.3 - 6.2 % 04/28/2025 5:41 PM [facility] Basophil % 0.8 0.0 - 1.5 % 04/28/2025 5:41 PM EDT [facility] Immature Grans % 1.3(H) 0.0 - 0.5 % 04/28/2025 5:41 PM EDT [facility] Neutrophils, Absolute 3.82 1.70 - 7.00 10*3/mm3 04/28/2025 5:41 PM EDT [facility] Lymphocytes, Absolute 0.55(L) 0.70 - 3.10 10*3/mm3 04/28/2025 5:41 PM EDT [facility] Monocytes, Absolute 0.40 0.10 - 0.90 10*3/mm3 04/28/2025 5:41 PM EDT [facility] Eosinophils, Absolute 0.42(H) 0.00 - 0.40 10*3/mm3 04/28/2025 5:41 PM EDT [facility] Basophils, Absolute 0.04 0.00 - 0.20 10*3/mm3 04/28/2025 5:41 PM EDT [facility] Immature Grans, Absolute 0.07(H) 0.00 - 0.05 10*3/mm3 04/28/2025 5:41 PM EDT [facility] nRBC 0.0 0.0 - 0.2 /100 WBC 04/28/2025 5:41 PM EDT [facility] Blood Line / Unknown 04/28/2025 5: 33 PM EDT 04/28/2025 5:38 PM EDT us Serafin Villalpando MD LAB BLOOD ORDERABLES Final R esult [facility]
[address] [place] [address], * Lavender Top (04/28/2025 5:33 PM EDT) Extra Tube hold for add-on 04/28/2025 5:45 PM EDT [facility] Comment:Auto resulted Blood Line / Unknown 04/28/2025 5: 33 PM EDT 04/28/2025 5:38 PM EDT us Serafin Villalpando MD LAB BLOOD ORDER ONLY Final R esult Performing Organization Address City/[facility]/ZIP Co de Phone Number [facility]
[address] [place] [address], * Light Blue Top (04/28/2025 5:33 PM EDT) Extra Tube Hold for add-ons. 04/28/2025 5:45 PM EDT [facility] Comment:Auto resulted Blood Line / Unknown 04/28/2025 5: 33 PM EDT 04/28/2025 5:38 PM EDT Serafin Villalpando MD LAB BLOOD ORDER ONLY Final R esult Performing Organization Address City/[facility]/ZIP Co de Phone Number [facility]
[address] [place] [address], * BNP (04/28/2025 5:33 PM EDT) proBNP 420.5 0.0 - 1,800.0 pg/mL 04/28/2025 6:03 PM EDT [facility] Blood Line / Unknown 04/28/2025 5: 33 PM EDT 04/28/2025 5:38 PM EDT Narrative [facility] - 04/28/2025 6:03 PM EDT [...] MD LAB BLOOD ORDERABLES Final R esult [facility]
[address] [place] [id number], * Telemetry Scan (04/28/2025 5:31 PM EDT) Only the most recent of2 resultswithin the time period is included. [facility] Onbase ECG ORDERABLES Final Result from Last 3 Months Insurance MEDICARE A & B Advance Directives * CPR (Attempt to Resuscitate) (Latest Code Status on File) Date Activated Date Inactivated Comments 04/28/2025 9:40 PM 04/29/2025 6:01 PM Question Answer Comments Code Status (Patient has no pulse and is not breathing): CPR (Attempt to Resuscitate) Medical Interventions (Patie nt has pulse or is breathing): Full Support Care Teams Flower Shop Manager Relationship Specialty Start Date End Date Provider, [place] [address] PCP - General 04/28/25
--- OUTSIDE RECORDS SUMMARY | 2025-05-09 10:08 | XMS_ITS | Referral Summary ---
Author Organization [employer] ([place], [place], [place], [place]) Address [address] [place] [address] Care Team Providers Care Fraud Prevention Analyst Name Role Phone Tristan Billings DO Primary Care Provider [phone] Allergies No known active allergies Medications glipiZIDE [...] any time in the past 12 m [facility], were you homeless or living in a long term (including now)? No 08/14/2024 Utilities Answer Date [...] Do you speak a language other than [place] at [facility]? 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
--- OUTSIDE RECORDS SUMMARY | 2025-05-09 10:08 | XMS_ITS | Encounter Summary ---
Author Organization [facility] Address [address] [place] [address] Care Team Providers Care Occupational Therapy Supervisor Name Role Phone Provider, No Known Primary Care Provider Unavail able Encounter Details Date Type Department Care Team (Latest Contact Info) Description 04/28/2025 Travel Social History Tobacco Use Types Packs/Day Years [...] on file documented as of this encounter Functional Status * Calculated C-SSRS Risk Score (Lifetime/Recent) Answer Date of Assessment Author No Risk Indicated 04/28/2025 11:28 PM EDT Celia Marshall RN * [place] Suicide Severity Rating Scale (Screener/Recent Self-Report) Question Answer Date of Assessment Author 1. Wish to be (Past 1 Month) No 025 5:36 PM EDT Raghavendra Sidhu RN 2. Non-Specific Active Suici cale Thoughts (Past 1 Month) No 04/28/2025 5:36 PM EDT Raghavendra Sidhu RN 6. Suicidal Behavior (Lifetime) No 11:28 PM EDT Celia Marshall RN documented as of this encounter Plan of Treatment Not on file documented as of this encounter Visit Diagnoses Not on filedocumented in this encounter Care Teams Occupational Therapy Supervisor Relationship Specialty Start Date End Date Provider, [place] [address] PCP - General 04/28/25 documented as of this encounter
--- OUTSIDE RECORDS SUMMARY | 2025-05-09 10:09 | XMS_ITS | Clinical Summary ---
Author Organization [facility] Address [address] [place] [address] Care Team Providers Care Edge Banding Machine Offbearer Name Role Phone ManuelitoTristan Primary Care Provider [phone] Allergies Active Allergy Reactions Criticality Noted Date [...] Description 06/27/2025 12:30 PM EDT Office Visit [facility] [address] [place] [address] 06/27/2025 1:30 PM EDT Office Visit [facility] [address] [place] [address] Justen Jaimes MD [address] [place] [address] Health Maintenance Due Date Last Done Comments [facility]-Hepatitis C Screening 1945 [facility]-Medicare Annual Wellness (AWV) 1945 [facility]-Infant/Child/Adol SDOH Screenings 1945 [facility]-Obesity Intervention 1953 [facility]- SDOH Screenings 1965 [facility]-Adult SDOH Screenings 1965 [facility]-Pneumococcal Vaccine: 50 + Years (1 of 2 - PCV) 1966 [facility]-Zoster Vaccines (1 of 2) 1966 [facility]-DTaP,Tdap,and Td Vaccine s (1 - Tdap) 07/25/2010 07/24/2010 [id number] Vaccine (3 - Moderna risk series) 12/20/2020 [...] age to complete this topic [place] [address] [facility] Care Teams Edge Banding Machine Offbearer Relationship Specialty Start Date End Date Tristan Billings DO [address] [place] [address] RUSH Napier [id number] PCP - General 09/13/24
--- NOTE | 2025-05-09 16:27 | PC.NURSE ---
per provider request contacted pt regarding his xray results. Pt does have mild height loss at the L2 vertebrae level. Related to this JANET Le is going to order an MRI of the L-spine for pt. Pt verbalized understanding. We did discuss f/u in office, pt has an appt scheduled on 05/20, depending on when the MRI can be scheduled this appt may be pushed back a few days so results can be gone over in office with pt, pt is agreeable to this plan. Pt did note that he spoke with his Radiation oncologist at his appt today regarding his change in taste of foods. States that the doctor told him the methocarbamol could be causing this, was told to ask our office about changing this medication. Contacted JANET Le notified her of the discussion regarding methocarbamol and pt request to change the medication. Gave telephone order for Baclofen 10 mg PO TID, PRN #42 tablets. Order was repeated back and verified with janet le. Pt states he uses [facility], notified him we would be calling in a prescription for Baclofen to try, let us know if he needs anything between now and his next appt, pt verbalized understanding. Prescription for Baclofen 10 mg PO TID PRN 42 tablets called to [facility], spoke with Fatuma.
== END 2025-05-09 23:59 | disposition home or self-care (01) ==
PROVIDERS: PCP Family Medicine; Visit Provider Nurse Practitioner Family
DX: M54.50 Low back pain, unspecified (principal); M85.80 Other specified disorders of bone density and structure, unspecified site; Z79.899 Other long term (current) drug therapy
CPT/HCPCS: 72100; 99212; G0463

== ENCOUNTER 2025-05-25 09:17 | Outpatient (CLI) | payer MEDICARE, OTHER, SELFPAY ==
--- NOTE | 2025-05-25 09:20 | MR_ITS ---
FINAL REPORT TECHNIQUE: Multiplanar and multisequence imaging of the lumbar spine was obtained without contrast. CLINICAL HISTORY: [facility] AORTIC VALVE*R/OACUTE COMPRESSION FX L2.kyphoplasty 4weeks ago, low back pain. FINDINGS: There are changes of L3 kyphoplasty. There is bone marrow edema in the inferior endplate of L2 with mild compression deformity most consistent with acute inferior endplate fracture. Edema is seen within the L5 vertebral body with approximately 25% loss of height, also acute. There are chronic compression deformities of T11 and T12. The spinal cord ends at the level of L1. There is normal signal intensity within the substance of the distal spinal cord. No acute paraspinal abnormality is identified. There are small bilateral renal cysts. L1-2: There is no focal disc herniation, central canal stenosis or neuroforaminal narrowing. L2-3: Annular disc bulge with degenerative endplate changes. No central canal stenosis or neuroforaminal narrowing. L3-4: There is no focal disc herniation, central canal stenosis or neuroforaminal narrowing. L4-5: Annular disc bulge. No central canal stenosis or neuroforaminal narrowing. L5-S1: An annular disc bulge is present with degenerative endplate changes and facet osteoarthropathy. Mild right and moderate left neuroforaminal narrowing. IMPRESSION: Acute inferior endplate fracture of L2 and fracture of the L5 vertebral body. Changes of L3 kyphoplasty. Multilevel degenerative disc disease. Reviewed, Interpreted and Dictated by Jessica Whitfield MD Transcribed by Sofia Liz Authenticated and [facility]
== END 2025-05-25 23:59 | disposition home or self-care (01) ==
LOC: RAD 09:18
PROVIDERS: PCP Family Medicine; Visit Provider Nurse Practitioner Family
DX: M51.369 Other intervertebral disc degeneration, lumbar region without mention of lumbar back pain or lower extremity pain (principal); M48.56XA Collapsed vertebra, not elsewhere classified, lumbar region, initial encounter for fracture; Z95.2 Presence of prosthetic heart valve; Z98.890 Other specified postprocedural states
CPT/HCPCS: 72148

== ENCOUNTER 2025-07-05 09:02 | Outpatient (CLI) | payer MEDICARE, OTHER, SELFPAY ==
--- OUTSIDE RECORDS SUMMARY | 2025-06-06 14:15 | XMS_ITS | Encounter Summary ---
Author Organization [facility] Address [address] [place] [address] Care Team Providers Care Tow Operator Name Role Phone Abelardo Pappas MD Primary Care Provider +1- [phone] Reason for Visit * Reason Comments Follow-up Encounter Details Date Type Department Care Team (Late st Contact Info) Description 06/06/2025 2:15 PM EDT Office Visit [facility] [address] [place] [phone] Justen Jaimes MD [address] [place] [address] Malignant neoplasm of prostate (CMS/HCC) [...] Jaimes MD - 06/06/2025 2:15 PM EDT [facility] Division of Hematology and Oncology Hematology/Oncology follow [...] right side with 90% grade 4, equals [place] score 4+5=9 adenocarcinoma involving 95% - 100% of 2 out of the 3 cores taken from the area of interest with 70% grade 4, and [place] score 4+4 = 8 adenocarcinoma involving between [...] 08/09/2024. - Mr. Lezama was admitted to [facility] from 08/10/2024 through 08/15/2024 for urinary retention [...] prostate cancer Social History: Patient lives in [place] with Social History Tobacco Use Smoking Status [...] MG tablet, , Disp: , Rfl: HYDROcodone-acetaminophen ([place]) 5-325 MG tablet, TAKE ONE TABLET BY [...] 0.3 06/06/2025 As detailed in HPI Imaging: [facility] [address] [place] [address] Patient Name: MARTIN LEZAMA Patient : 1945 [...] was GFR =50 6.2 mCi Ga-68 PSMA ([facility] [id number]) was injected IV. After an uptake time of 76 minutes, vertex through midthigh PET imaging was performed. This was followed by a low dose attenuation correction/anatomic localization CT from vertex through the midthigh levels. Urinary tract was opacified with an injection of 50 mL Omnipaque 350 (1 x 50 ml bottle of [facility] [id number]) administered [address] scan. [...] and discussed over the phone with his dietary aide teacher Dr. Kincaid, who recommended bone antiresorptive agent [...] Description 11/28/2025 2:00 PM EDT Office Visit [facility] [address] [place] [address] 11/28/2025 3:00 PM EDT Office Visit [facility] [address] [place] [address] Justen Jaimes MD [address] [place] [phone] 11/28/2025 3:15 PM EDT Clinical Support [facility] [address] [place] [address] Scheduled Orders Name Type Priority Associated Diagnoses [...] - 4.400 ng/mL 06/06/2025 3:01 PM EDT [facility] Comment: This test was performed using Estefania e801 Electrochemiluminescent method. The test method is based on WHO-standardized calibration. Values obtained from different assay methods or manufacturers may not be comparable. External Psa, Free 0.17 ng/mL 2024 3:01 PM EDT [facility] Comment: Test method is based on WHO-standardized calibration using the Estefania E801 analyzer. Free PSA results by different test procedures cannot be directly compared with one another. External Psa- % Free 63 % 05/17 3:01 PM EDT [facility] Comment: PSA ng/mL % FREE PSA Probability of Prostate Cancer % Less than 4.00 N/A 17% 4.0 - 10.0 0-10 56% 10-15 28% 15-20 20% 20-25 16% Greater than 25 8% Greater than 10.0 N/A 49% Blood Venous blood specimen / Unknown 06/06/2025 1:50 PM EDT 06/06/2025 2:21 PM EDT us Justen Jaimes MD LAB BLOOD ORDERABLES Flaca l Result [facility] [address] [place] [address], * (ABNORMAL) Comprehensive Metabolic Panel, Plasma (06/06/2025 1:50 PM EDT) External Glucose 101(H) 74 - 100 mg/dL 06/06/2025 2:55 PM EDT [facility] External BUN 22(H) 6 - 20 mg/dL 06/06/2025 2:55 PM EDT [facility] External Creatinine Blood 0.97 0.70 - 1.20 mg/dL 06/06/2025 2:55 PM EDT [facility] External BUN/Creat Ratio 23(H) 10 - 20 (calc) 06/06/2025 2:55 PM EDT [facility] External Sodium 144 136 - 145 mmol/L 06/06/2025 2:55 PM EDT [facility] External Potassium 3.7 3.4 - 5.0 mmol/L 06/06/2025 2:55 PM EDT [facility] External Chloride 103 98 - 107 mmol/L 06/06/2025 2:55 PM EDT [facility] External Carbon Dioxide (CO2) 27 22 - 31 mmol/L 06/06/2025 2:55 PM T [facility] External Anion Gap (AG) 14 7 - 25 (calc) 06/06/2025 2:55 PM T [facility] External Calcium 10.0 8.6 - 10.2 mg/dL 06/06/2025 2:55 PM T [facility] External Total Protein 6.9 6.4 - 8.3 g/dL 06/06/2025 2:55 PM EDT [facility] External Albumin 4.4 3.5 - 5.2 g/dL 06/06/2025 2:55 PM T [facility] External Globulin 2.5 1.5 - 4.5 025 2:55 PM T [facility] External Albumin/Globulin Ratio 1.8 1.1 - 2.5 (calc) 06/06/2025 2:55 PM T [facility] External Bilirubin Total 0.3 0.1 - 1.0 mg/dL 06/06/2025 2:55 PM T [facility] Comment:NOTE: New reference range. External Alkaline Phosphatase 85 40 - 129 U/L 06/06/2025 2:55 PM T [facility] External AST (SGOT) 25 0 - 40 U/L 06/06/2025 2:55 PM EDT [facility] External ALT (SGPT) 32 0 - 41 U/L 06/06/2025 2:55 PM EDT [facility] External Estimated GFR 80 >=60 06/06/2025 2:55 PM EDT [facility] Comment: NOTE New calculation for GFR (CKD-EPI 2020) is formulated without race adjustment factors at the recommendation of the National Kidney Foundation and [place] [employer] Nephrology. This calculation has not been validated in women. For pediatric patients refer to https://www.kidney.org/professionals/KDOQI/gfr_calculatorPed Blood Venous blood specimen / Unknown 06/06/2025 1:50 PM EDT 06/06/2025 2:21 PM EDT us Justen Jaimes MD LAB BLOOD ORDERABLES Flaca ledezma Result [facility] [address] [place] [address], * (ABNORMAL) CBC and Differential (06/06/2025 1:50 PM EDT) External WBC 5.5 3.8 - 10.8 10*3/uL 06/06/2025 4:06 PM EDT [facility] External Red Blood Cell (RBC) 3.67(L) 4.20 - 5.80 10*6/uL 06/06/2025 4:06 PM EDT [facility] External Hemoglobin 10.3(L) 14.0 - 18.0 g/dL 06/06/2025 4:06 PM EDT [facility] External Hematocrit 32.8(L) 40.0 - 52.0 % 06/06/2025 4:06 PM EDT [facility] External MCV 89 80 - 100 fL 06/06/2025 4:06 PM EDT [facility] External MCH 28 26 - 35 pg 06/06/2025 4:06 PM EDT [facility] External MCHC 31(L) 32 - 36 g/dL 06/06/2025 4:06 PM EDT [facility] External RDW 23.0(H) 11.0 - 15.0 % 06/06/2025 4:06 PM EDT [facility] External Mean Platelet Volume 7.3 6.2 - 10.5 fL 06/06/2025 4:06 PM EDT [facility] External Platelet Count (Plt) 326 150 - 400 10*3/uL 06/06/2025 4:06 PM EDT [facility] External Neutrophil# 3.5 1.6 - 8.4 10*3/uL 06/06/2025 4:06 PM EDT [facility] External Lymphocyte# 0.7 0.4 - 5.1 10*3/uL 06/06/2025 4:06 PM EDT [facility] External Absolute Monocyte (Abs [place]) 0.5 0.0 - 1.2 10*3/uL 06/06/2025 4:06 PM EDT [facility] External Eosinophils# 0.7 0.0 - 0.8 10*3/uL 06/06/2025 4:06 PM EDT [facility] External Baso# 0.1 0.0 - 0.3 10*3/uL 06/06/2025 4:06 PM EDT [facility] Comment:Smear reviewed to co nfirm cell morphology. External Neutrophils % 63.9 42.0 - 78.0 % 06/06/2025 4:06 PM EDT [facility] External Lymphocyte % 13.1 11.0 - 47.0 % 06/06/2025 4:06 PM EDT [facility] External Monocyte % 8.8 0.0 - 11.0 % 06/06/2025 4:06 PM EDT [facility] External Eosinophil% 13.2(H) 0.0 - 7.0 % 06/06/2025 4:06 PM EDT [facility] External Basophil % 1.0 0.0 - 3.0 % 06/06/2025 4:06 PM T [facility] External Nucleated RBC%-Auto 0.3 0.0 - 0.9 % 06/06/2025 4:06 PM T [facility] External Nucleated RBC Absolute 0.02 Not Estab. 10*3/uL 06/06/2025 4:06 PM T [facility] Blood Venous blood specimen / Unknown 06/06/2025 1:50 PM EDT 06/06/2025 2:21 PM EDT Justen Jaimes MD LAB BLOOD ORDERABLES Flaca ledezma Result Performing Organization Address City/State/[facility] Co de Phone Number [facility] [address] [place] [address], documented in this encounter Visit Diagnoses Diagnosis Malignant neoplasm of prostate (CMS/HCC)- Primary Malignant neoplasm of prostate Osteopenia of multiple sites documented in this encounter Additional Health Concerns Assessment Noted Time PHQ-9 Depression Total Score: 0 12/28/19 1:21 PM EDT A fall risk assessment has been complete d for the patient 06/06/2025 3:46 PM EDT documented as of this encounter Care Teams Tow Operator Relationship Specialty Start Date End Date Abelardo Pappas MD [address] [place] [address] PCP - General 06/04/25 documented as of this encounter
--- OUTSIDE RECORDS SUMMARY | 2025-06-06 14:30 | XMS_ITS | Encounter Summary ---
Author Organization [facility] Address [address] [place] [address] Care Team Providers Care Reflow Operator Name Role Phone Abelardo Pappas MD Primary Care Provider [phone]- [phone] Reason for Visit * Reason Comments Injections * Episode Based Medications (Routine) - Authorized Specialty Diagnoses / Procedures Referred By Contdarien t Referred To Contact Diagnoses Osteopenia of multiple sites Justen Jaimes MD [address] [address] Phone: tel: fax: Justen Jaimes MD [address] [address] Phone: tel: fax: Referral ID Status Reason Start Date Expiration Date V isits Requested Visits Authorized [id number] Authorized 06/13/2025 12/13/2026 1 2 Encounter Details Date Type Department Care Team (Late st Contact Info) Description 06/06/2025 2:30 PM EDT Infusion [facility] [place] [facility] [address] [place] [address] Osteopenia of multiple sites (Primary [...] from the original note were not included. [id number] Denosumab Injection IMPORTANT WARNING: Denosumab injection products [...] doctor or pharmacist will give you the kiln mechanic's patient information sheet (Medication Guide) when you begin treatment with denosumab injection products. Read the information carefully and ask your doctor or pharmacist if you have any questions. You can also visit the Food and Drug Administration (FDA) website (https://www.fda.gov/Drugs/DrugSafety/stm233380.htm) (or the kiln mechanic's website) to obtain the Medication Guide. Talk [...] or doctor for a copy of the kiln mechanic's information for the patient. Are there OTHER [...] of all of the prescription and nonprescription (qcfo-jhr-rutxmec) medicines, vitamins, minerals, and dietary supplements you [...] or pharmacist about specific clinical use. The [employer] represents that the information provided hereunder was formulated with a reasonable standard of care, and in conformity with professional standards in the field. The [employer] makes no representations or warranties, express or implied, including, but not limited to, any implied warranty of merchantability and/or fitness for a particular purpose, with respect to such information and specifically disclaims all such warranties. Users are advised that decisions regarding drug therapy are complex medical decisions requiring the independent, informed decision of an appropriate health primary care nurse, and the information is provided for informational purposes only. The entire monograph for a drug should be reviewed for a thorough understanding of the drug's actions, uses and side effects. The [employer] does not endorse or recommend the use of any drug.The information is not a substitute for medical care. AHFS?? Patient Medication Information?. ?? Copyright, 2023. The [employer]??, [address], [address], [place], [place]. All Rights Reserved. Duplication for commercial use must be authorized by [facility]. AHFS?? Patient Medication Information?. ?? Copyright, 2024 documented in this encounter Plan of Treatment Upcoming Encounters Date Type Department Care Team (Late st Contact Info) Description 11/28/2025 2:00 PM EDT Office Visit [facility] at [address] [address] 11/28/2025 3:00 PM EDT Office Visit [facility] at [address] [phone] Justen Jaimes MD [address] [place] [address] 11/28/2025 3:15 PM EDT Clinical Support [facility] at [address] [address] documented as of this encounter Visit Diagnoses [...] documented as of this encounter Care Teams Reflow Operator Relationship Specialty Start Date End Date Abelardo Pappas MD [address] [place] [address] PCP - General 06/04/25 documented as of this encounter
[2025-07-05 08:27] VITALS: BMI 25.8
--- OUTSIDE RECORDS SUMMARY | 2025-07-05 09:27 | XMS_ITS | Encounter Summary ---
Author Organization [facility] Address [address] [place] [address] Care Team Providers Care Delinquent Tax Collector Assistant Name Role Phone Abelardo Pappas MD Primary Care Provider [phone]- [phone] Encounter Details Date Type Department Care Team (Late Contact Info) Description 06/28/2025 Orders Only [facility] at [facility] [address] [place] [address] Justen Jaimes MD [address] [phone] Malignant neoplasm of prostate (CMS/HCC) Social History Tobacco Use Types Packs/Day Years [...] on file documented as of this encounter Plan of Treatment Upcoming Encounters Date Type Department Care Team (Late Contact Info) Description 11/28/2025 2:00 PM EDT Office Visit [facility] [address] [place] [address] 11/28/2025 3:00 PM EDT Office Visit [facility] [address] [place] [address] Justen Jaimes MD [address] [address] 11/28/2025 3:15 PM EDT Clinical Support [facility] [address] [place] [address] documented as of this encounter Visit Diagnoses Diagnosis Malignant neoplasm of prostate (CMS/HCC) Malignant neoplasm of prostate documented in this encounter Additional Health Concerns Assessment Noted Time PHQ-9 Depression Total Score: 0 12/28/19 1:21 PM EDT A fall risk assessment has been complete d for the patient 06/06/2025 3:46 PM EDT documented as of this encounter Care Teams Delinquent Tax Collector Assistant Relationship Specialty Start Date End Date Abelardo Pappas MD [address] [place] [address] PCP - General 06/04/25 documented as of this encounter
--- OUTSIDE RECORDS SUMMARY | 2025-07-05 09:27 | XMS_ITS | Encounter Summary ---
Author Organization [facility] Address [address] [place] [address] Care Team Providers Care Motorcycle Racer Name Role Phone YosiTristan centeno Primary Care Provider [phone] Encounter Details Date Type Department Care Team (Late st Contact Info) Description 05/11/2025 Abstract [facility] at [facility] [address] [place] [address] Justen Jaimes MD [address] [phone] Social History Tobacco Use Types Packs/Day Years [...] Description 11/28/2025 2:00 PM EDT Office Visit [facility] at [facility] [address] [place] [phone] 11/28/2025 3:00 PM EDT Office Visit [facility] [address] [place] [phone] Justen Jaimes MD [address] [phone] 11/28/2025 3:15 PM EDT Clinical Support [facility] [address] [place] [address] documented as of this encounter Visit Diagnoses Not on filedocumented in this encounter Additional Health Concerns Assessment Noted Time PHQ-9 Depression Total Score: 0 12/28/19 1:21 PM EDT A fall risk assessment has been complete d for the patient 12/27/2024 1:20 PM EDT documented as of this encounter Care Teams Motorcycle Racer Relationship Specialty Start Date End Date Tristan Billings DO [address] [place] [address] PCP - General 09/13/24 06/03/25 documented as of this encounter
--- OUTSIDE RECORDS SUMMARY | 2025-07-05 09:27 | XMS_ITS | Clinical Summary ---
Author Organization [facility] Address [address] [place] [address] Care Team Providers Care Optometric Aide Name Role Phone Abelardo Pappas MD Primary Care Provider +1- [phone] Allergies Active Allergy Reactions Criticality Noted Date Comments Promethazine Unknown - Patient st ates they do not know rxn details Low 07/24/2010 Makes me loopy Medications glipiZIDE (Glucotrol) 5 MG tablet Take 1.5 tablets (7.5 mg) by mouth 1 (one) time each day. Active hydroCHLOROthia zide (HYDRODiuril) 25 MG tablet 4 Active atenolol (Tenormin) 50 MG tablet 4 Active simvastatin (Zocor) 20 MG tablet 4 Active warfarin (Coumadin) 1 MG tablet Take 0.5 tablets (0.5 mg) by mouth 1 (one) time each day. Active warfarin (Coumadin) 4 MG tablet Take 1 tablet (4 mg) by mouth 1 (one) time each day. 4 Active dapagliflozin (Farxiga) 10 MG tablet Take [...] BY MOUTH EVERY DAY FOR urine urgency 4 Active sildenafil (Viagra) 100 MG tablet Take 1 tablet (100 mg) by mouth. Active pyridoxine (B-6) 100 MG tablet Take 1 tablet (100 mg) by mouth 1 (one) time each day. Active isoniazid (Nydrazid) 300 MG tablet Take 1 tablet (300 mg) by mouth 1 (one) time each day. Active HYDROcodone-newton taminophen (Dimmitt) 5-325 MG tablet TAKE ONE TABLET BY MOUTH EVERY 8 HOURS NEEDED FOR PAIN MAY CAUSE DROWSINESS Active lisinopril 2.5 MG tablet Take 1 tablet by mouth daily. 5 Active methocarbamol (Robaxin) 750 MG tablet TAKE ONE TABLET BY MOUTH THREE TIMES DAILY MAY CAUSE DROWSINESS Active methotrexate 2.5 MG tablet TAKE FIVE TABLETS BY MOUTH EVERY 7 DAYS DIRECTED Active Active Problems Problem Noted Date Diagnosed Date Osteopenia of multiple sites 06/06/2025 Malignant neoplasm of prostate 09/13/2024 Cancer Staging:Clinical:Stage IVB(cTX, pM1a, PSA: 11, Grade Group: 4) - Signed by Justen Jaimes MD on 09/13/2024 Resolved Problems Problem Noted Date Diagnosed Date Resolved Date Neutropenia associated with infection 09/13/2024 09/13/2024 Encounters Date Type Department Care Team Description 06/28/[address] [facility] at [address] [place] [address] Justen Jaimes MD Malignant neoplasm of prostate (CMS/HCC) 06/06/2025 2:[address] [facility] [place] [address] [place] [address] Osteopenia of multiple sites (Primary Dx) 06/06/2025 2:15 PM EDT Office Visit [facility] [address] [place] [address] Justen Jaimes MD Malignant neoplasm of prostate (CMS/HCC) (Primary Dx); Osteopenia of multiple sites 06/06/[address] [facility] [address] [facility] [address] Justen Jaimes MD 06/06/[address] [address] [place] [address] Justen Jaimes MD 06/06/2025 Travel 06/04/2025 Travel 06/01/[address] [address] [place] [address] Justen Jaimes MD 05/11/[address] [address] [place] [address] Justen Jaimes MD from Last 3 Months [...] Rate - - Oxygen Saturation 92% 06/06/2025 3: 40 PM EDT Inhaled Oxygen Concentration - - Weight 88.8 kg (195 lb 12.3 oz) 06/06/2025 2:11 PM EDT Height 188 cm (6' 2 ) 06/06/2025 2:11 PM EDT Body Mass Index 25.14 06/06/2025 2:11 PM EDT Plan of Treatment Upcoming Encounters Date Type Department Care Team (Late st Contact Info) Description 11/28/2025 2:00 PM EDT Office [facility] [address] [place] [address] 11/28/2025 3:00 PM EDT Office [facility] [address] [place] [address] Justen Jaimes MD [address] [address] 11/28/2025 3:15 PM EDT Clinical Support [facility] [address] [place] [address] Health Maintenance Due Date Last Done Comments [facility]-Hepatitis C Screening 1945 [facility]-Medicare Annual Wellness (AWV) 1945 [facility]-/Child/Adol SDOH Screenings 1945 [facility]-Obesity Intervention 1953 [facility]- SDOH Screenings 1965 [facility]-Adult SDOH Screenings 1965 [facility]-Pneumococcal Vaccine: 50 + Years (1 of 2 - PCV) 1966 [facility]-Zoster Vaccines (1 of 2) 1966 [facility]-DTaP,Tdap,and Td Vaccine s (1 - Tdap) 07/25/2010 07/24/2010 [id number] Vaccine (3 - Moderna risk series) 12/20/2020 [...] Procedure Name Priority Date/Time Associated Diagnosis Comments RBC MORPHOLOGY ([facility]) Routine 06/06/2025 1:50 PM EDT PROSTATE SPECIFIC ANTIGEN, FREE PERCENTAGE (INCLUDES FREE PSA AND TOTAL PSA) (SO) STAT 06/06/2025 1:50 PM EDT Malignant neoplasm of prostate (CMS/HCC) COMPREHENSIVE METABOLIC PANEL, PLASMA STAT 06/06/2025 1:50 PM EDT Malignant neoplasm of prostate (CMS/HCC) CBC WITH AUTO DIFFERENTIAL STAT 06/06/2025 1:50 PM EDT Malignant neoplasm of prostate (CMS/HCC) COMPLETE METABOLIC PROFILE (CMP) Routine 06/04/2025 2:58 PM EDT CBC W/DIFF Routine 06/04/2025 2:58 PM EDT MR LUMBAR SPINE WO IV CONTRAST Routine 05/25/2025 9:34 AM EDT from Last 3 Months Results * (ABNORMAL) RBC MORPHOLOGY (EXTERNAL) (06/06/2025 1:50 PM EDT) External Platelet Morphology NORMAL 06/06/2025 4:06 PM EDT [facility] External Ovalocytes SLIGHT(A) 06/06/2025 4:06 PM EDT [facility] External Stomatocyte SLIGHT(A) 06/06/2025 4:06 PM EDT [facility] External Target Cells SLIGHT(A) 06/06/2025 4:06 PM EDT [facility] External Tear Drop Cells SLIGHT(A) 06/06/2025 4:06 PM EDT [facility] 06/06/2025 1:50 PM EDT 06/06/2025 2:21 PM EDT Justen Jaimes MD LAB BLOOD ORDERABLES Flaca ledezma Result [facility] [address] [place] [id number], * (ABNORMAL) CBC and Differential (06/06/2025 1:50 PM EDT) External WBC 5.5 3.8 - 10.8 10*3/uL 06/06/2025 4:06 PM EDT [facility] External Red Blood Cell (RBC) 3.67(L) 4.20 - 5.80 10*6/uL 06/06/2025 4:06 PM EDT [facility] External Hemoglobin 10.3(L) 14.0 - 18.0 g/dL 06/06/2025 4:06 PM EDT [facility] External Hematocrit 32.8(L) 40.0 - 52.0 % 06/06/2025 4:06 PM EDT [facility] External MCV 89 80 - 100 fL 06/06/2025 4:06 PM EDT [facility] External MCH 28 26 - 35 pg 06/06/2025 4:06 PM EDT [facility] External MCHC 31(L) 32 - 36 g/dL 06/06/2025 4:06 PM EDT [facility] External RDW 23.0(H) 11.0 - 15.0 % 06/06/2025 4:06 PM EDT [facility] External Mean Platelet Volume 7.3 6.2 - 10.5 fL 06/06/2025 4:06 PM EDT [facility] External Platelet Count (Plt) 326 150 - 400 10*3/uL 06/06/2025 4:06 PM EDT [facility] External Neutrophil# 3.5 1.6 - 8.4 10*3/uL 06/06/2025 4:06 PM EDT [facility] External Lymphocyte# 0.7 0.4 - 5.1 10*3/uL 06/06/2025 4:06 PM EDT [facility] External Absolute Monocyte (Abs Bath) 0.5 0.0 - 1.2 10*3/uL 06/06/2025 4:06 PM EDT [facility] External Eosinophils# 0.7 0.0 - 0.8 10*3/uL 06/06/2025 4:06 PM EDT [facility] External Baso# 0.1 0.0 - 0.3 10*3/uL 06/06/2025 4:06 PM EDT [facility] Comment:Smear reviewed to co nfirm cell morphology. External Neutrophils % 63.9 42.0 - 78.0 % 06/06/2025 4:06 PM EDT [facility] External Lymphocyte % 13.1 11.0 - 47.0 % 06/06/2025 4:06 PM EDT [facility] External Monocyte % 8.8 0.0 - 11.0 % 06/06/2025 4:06 PM EDT [facility] External Eosinophil% 13.2(H) 0.0 - 7.0 % 06/06/2025 4:06 PM EDT [facility] External Basophil % 1.0 0.0 - 3.0 % 06/06/2025 4:06 PM EDT [facility] External Nucleated RBC%-Auto 0.3 0.0 - 0.9 % 06/06/2025 4:06 PM EDT [facility] External Nucleated RBC Absolute 0.02 Not Estab. 10*3/uL 06/06/2025 4:06 PM EDT [facility] Blood Venous blood specimen / Unknown 06/06/2025 1:50 PM EDT 06/06/2025 2:21 PM EDT us Justen Jaimes MD LAB BLOOD ORDERABLES Flaca ledezma Result [facility] [address] [place] [address], * PSA, percent free, profile (06/06/2025 1:50 PM EDT) External Prostate Specific Antigen (PSA) 0.269 0.000 - 4.400 ng/mL 06/06/2025 3:01 PM EDT [facility] Comment: This test was performed using Estefania e801 Electrochemiluminescent method. The test method is based on WHO-standardized calibration. Values obtained from different assay methods or manufacturers may not be comparable. External Psa, Free 0.17 ng/mL 2024 3:01 PM EDT [facility] Comment: Test method is based on WHO-standardized calibration using the Estefania E801 analyzer. Free PSA results by different test procedures cannot be directly compared with one another. External Psa- % Free 63 % 05/17 3:01 PM EDT [facility] Comment: PSA ng/mL % FREE PSA Probability of Prostate Cancer % Less than 4.00 N/A 17% 4.0 - 10.0 0-10 56% 10-15 28% 15-20 20% 20-25 16% Greater than 25 8% Greater than 10.0 N/A 49% Blood Venous blood specimen / Unknown 06/06/2025 1:50 PM EDT 06/06/2025 2:21 PM EDT us Justen Jaimes MD LAB BLOOD ORDERABLES Flaca ledezma Result [facility] [address] [place] [address], * (ABNORMAL) Comprehensive Metabolic Panel, Plasma (06/06/2025 1:50 PM EDT) External Glucose 101(H) 74 - 100 mg/dL 06/06/2025 2:55 PM EDT [facility] External BUN 22(H) 6 - 20 mg/dL 06/06/2025 2:55 PM EDT [facility] External Creatinine Blood 0.97 0.70 - 1.20 mg/dL 06/06/2025 2:55 PM EDT [facility] External BUN/Creat Ratio 23(H) 10 - 20 (calc) 06/06/2025 2:55 PM EDT [facility] External Sodium 144 136 - 145 mmol/L 06/06/2025 2:55 PM EDT [facility] External Potassium 3.7 3.4 - 5.0 mmol/L 06/06/2025 2:55 PM EDT [facility] External Chloride 103 98 - 107 mmol/L 06/06/2025 2:55 PM EDT [facility] External Carbon Dioxide (CO2) 27 22 - 31 mmol/L 06/06/2025 2:55 PM T [facility] External Anion Gap (AG) 14 7 - 25 (calc) 06/06/2025 2:55 PM EDT [facility] External Calcium 10.0 8.6 - 10.2 mg/dL 06/06/2025 2:55 PM EDT [facility] External Total Protein 6.9 6.4 - 8.3 g/dL 06/06/2025 2:55 PM EDT [facility] External Albumin 4.4 3.5 - 5.2 g/dL 06/06/2025 2:55 PM EDT [facility] External Globulin 2.5 1.5 - 4.5 2:55 PM T [facility] External Albumin/Globulin Ratio 1.8 1.1 - 2.5 (calc) 06/06/2025 2:55 PM EDT [facility] External Bilirubin Total 0.3 0.1 - 1.0 mg/dL 06/06/2025 2:55 PM T [facility] Comment:NOTE: New reference range. External Alkaline Phosphatase 85 40 - 129 U/L 06/06/2025 2:55 PM EDT [facility] External AST (SGOT) 25 0 - 40 U/L 06/06/2025 2:55 PM EDT [facility] External ALT (SGPT) 32 0 - 41 U/L 06/06/2025 2:55 PM EDT [facility] External Estimated GFR 80 >=60 06/06/2025 2:55 PM EDT [facility] Comment: NOTE New calculation for GFR (CKD-EPI 2020) is formulated without race adjustment factors at the recommendation of the National Kidney Foundation and [place] [employer]ph[employer]. This calculation has not been validated in women. For pediatric patients refer to https://www.kidney.org/professionals/KDOQI/gfr_calculatorPed Blood Venous blood specimen / Unknown 06/06/2025 1:50 PM EDT 06/06/2025 2:21 PM EDT Justen Jaimes MD LAB BLOOD ORDERABLES Flaca l Result [facility] [address] [place] [address], [place] [phone] * COMPLETE METABOLIC PROFILE (CMP) (06/04/2025 2:58 PM EDT) Justen Jaimes MD LAB BLOOD ORDERABLES Flaca l Result * CBC W/DIFF (06/04/2025 2:58 PM EDT) Justen Jaimes MD LAB BLOOD ORDERABLES Flaca l Result * MR Lumbar Spine wo IV Contrast (05/25/2025 9:34 AM EDT) Anatomical Region Laterality Modality L-spine Magnetic Resonan ce Justen Jaimes MD IMG MRI PROCEDURES Final Result from Last 3 [place] [address] [facility] Care Teams Optometric Aide Relationship Specialty Start Date End Date Abelardo Pappas MD [address] [place] [address] PCP - General 06/04/25
--- OUTSIDE RECORDS SUMMARY | 2025-07-05 09:27 | XMS_ITS | Referral Summary ---
Author Organization [employer] ([place], [place], [place], [place]) Address [address] [place] [address] Care Team Providers Care Manager Employment Name Role Phone Tristan Billings DO Primary Care Provider +1 -[phone] Allergies No known active allergies Medications glipiZIDE [...] any time in the past 12 m [facility], were you homeless or living in a assisted (including now)? No 08/14/2024 Utilities Answer Date [...] Do you speak a language other than [place] at [facility]? No 08/10/2024 Do you want [...] Advance Directives For more information, please contact: [phone] Documents on File Type Date Recorded Patient Servicing Rep Expl anation Advance Directives and Living Will 08/10/2024 * Full Code (Latest Code Status on File) Date Activated Date Inactivated Comments 08/10/2024 2:42 PM 08/15/2024 4:37 PM Care Teams Manager Employment Relationship Specialty Start Date End Date Tristan Billings DO PCP - General Internal Medicine 08/10/24
--- OUTSIDE RECORDS SUMMARY | 2025-07-05 09:27 | XMS_ITS | Encounter Summary ---
Author Organization [facility] Address [address] [place] [address] Care Team Providers Care Freelance Makeup Artist Name Role Phone Abelardo Pappas MD Primary Care Provider +1- [phone] Encounter Details Date Type Department Care Team (Late st Contact Info) Description 06/06/2025 Orders Only [facility] [address] [place] [phone] Justen Jaimes MD [address] [facility] [address] [place] [phone] Social History Tobacco Use Types Packs/Day Years [...] 1 Month) No 025 3:40 PM EDT Alba, Fany L, RN 2. Non-Specific Active Suici cale Thoughts (Past 1 Month) No 06/06/2025 3:40 PM EDT Fany Willis, RN 6. Suicidal Behavior (Lifetime) No 3:40 PM EDT Fany Willis, RN documented as of this encounter Plan of Treatment Upcoming Encounters Date Type Department Care Team (Late st Contact Info) Description 11/28/2025 2:00 PM EDT Office Visit [facility] [address] [place] [address] 11/28/2025 3:00 PM EDT Office Visit [facility] [address] [place] [address] Justen Jaimes MD [address] [address] 11/28/2025 3:15 PM EDT Clinical Support [facility] [address] [place] [address] documented as of this encounter Procedures Procedure Name Priority Date/Time Associated Diagnosis Comments RBC MORPHOLOGY ([facility]) Routine 06/06/2025 1:50 PM EDT documented in this encounter Results * (ABNORMAL) RBC MORPHOLOGY (EXTERNAL) (06/06/2025 1:50 PM EDT) External Platelet Morphology NORMAL 06/06/2025 4:06 PM EDT [facility] External Ovalocytes SLIGHT(A) 06/06/2025 4:06 PM EDT [facility] External Stomatocyte SLIGHT(A) 06/06/2025 4:06 PM EDT [facility] External Target Cells SLIGHT(A) 06/06/2025 4:06 PM EDT [facility] External Tear Drop Cells SLIGHT(A) 06/06/2025 4:06 PM EDT [facility] 06/06/2025 1:50 PM EDT 06/06/2025 2:21 PM EDT us Justen Jaimes MD LAB BLOOD ORDERABLES Flaca ledezma Result [facility] [address] [place] [address], documented in this encounter Visit Diagnoses Not on filedocumented in this encounter Additional Health Concerns Assessment Noted Time PHQ-9 Depression Total Score: 0 12/28/19 1:21 PM EDT A fall risk assessment has been complete d for the patient 06/06/2025 3:46 PM EDT documented as of this encounter Care Teams Freelance Makeup Artist Relationship Specialty Start Date End Date Abelardo Pappas MD [address] [place] [address] PCP - General 06/04/25 documented as of this encounter
--- OUTSIDE RECORDS SUMMARY | 2025-07-05 09:27 | XMS_ITS | Clinical Summary ---
Author Organization [employer] ([place], [place], [place], [place]) Address [address] [place] [address] Care Team Providers Care Fur Grader Name Role Phone Tristan Billings DO Primary Care Provider +1 -[phone] Allergies No known active allergies Medications glipiZIDE [...] any time in the past 12 m [facility], were you homeless or living in a residential (including now)? No 08/14/2024 Utilities Answer Date [...] living situation today? I have a [facility] place to live 08/10/2024 Think [...] Do you speak a language other than [place] at [facility]? No 08/10/2024 Do you want help with [...] Advance Directives For more information, please contact: [phone] Documents on File Type Date Recorded Patient [place] Aide Expl anation Advance Directives and Living Will 08/10/2024 * Full Code (Latest Code Status on File) Date Activated Date Inactivated Comments 08/10/2024 2:42 PM 08/15/2024 4:37 PM Care Teams Fur Grader Relationship Specialty Start Date End Date Tristan Billings DO PCP - General Internal Medicine 08/10/24
--- OUTSIDE RECORDS SUMMARY | 2025-07-05 09:27 | XMS_ITS | Encounter Summary ---
Author Organization [facility] Address [address] [place] [address] Care Team Providers Care Engine Assembly Supervisor Name Role Phone Abelardo Pappas MD Primary Care Provider +1- [phone] Encounter Details Date Type Department Care Team (Latest Contact Info) Description 06/04/2025 Travel Social History Tobacco Use Types Packs/Day [...] Description 11/28/2025 2:00 PM EDT Office Visit [facility] [place] [facility] [address] [place] [phone] 11/28/2025 3:00 PM EDT Office Visit [facility] [address] [place] [phone] Justen Jaimes MD [address] [phone] 11/28/2025 3:15 PM EDT Clinical Support [facility] [address] [place] [address] documented as of this encounter Visit Diagnoses Not on filedocumented in this encounter Additional Health Concerns Assessment Noted Time PHQ-9 Depression Total Score: 0 12/28/19 1:21 PM EDT A fall risk assessment has been complete d for the patient 12/27/2024 1:20 PM EDT documented as of this encounter Care Teams Engine Assembly Supervisor Relationship Specialty Start Date End Date Abelardo Pappas MD [address] [place] [address] PCP - General 06/04/25 documented as of this encounter
--- OUTSIDE RECORDS SUMMARY | 2025-07-05 09:27 | XMS_ITS | Clinical Summary ---
Author Organization [facility] Address [address] [place] [address] Care Team Providers Care Document Restorer Name Role Phone Provider, No Known Primary [...] Take 1 tablet by mouth Daily. Active hydroCHLOROthia zide 25 MG tablet Take 1 tablet by mouth Daily. Active HYDROcodone-newton taminophen (NORCO) 5-325 MG per tablet Take 1 tablet by mouth Every 8 (Eight) Hours As Needed for Mild Pain or Moderate Pain. Active lisinopril (PRINIVIL,ZESTR IL) 2.5 MG tablet Take 1 tablet by [...] Take 1 tablet by mouth Daily. Active Active Problems Problem Noted Date Diagnosed [...] - 04/29/2025 3:55 PM EDT Hospital Encounter [address] [place] [address] Serafin Villalpando MD Frandina, John L, MD [...] TDAP/TD VACCINES (2 - Tdap) 07/24/2020 07/24/2010 COVID-19 Vaccine (3 - Modern a risk series) 12/20/2020 11/22/2020, 10/25/2020 RSV Vaccine - Adults (1 - 1- dose 75+ series) 2022 INFLUENZA VACCINE 04/15/2025 06/26/2023, , 06/14/2016 Procedures Procedure Name Priority [...] ECG 12-LEAD STAT 04/28/2025 5:41 PM EDT CBC AND DIFFERENTIAL STAT 04/28/2025 [...] of3 resultswithin the time period is included. HS Troponin T 27(H) <22 ng/L 04/29/2025 1:19 PM EDT [facility] Blood Venipuncture / Unknown 04/29/2025 12:34 PM EDT 04/29/2025 12:57 PM EDT Narrative [facility] - 04/29/2025 1:19 PM [...] ORDERABLES Final Re sult Performing Organization Address [facility] Co de Phone Number [facility]
[address] [place] [address], * (ABNORMAL) POC Glucose Once (04/29/2025 11:16 AM EDT) Only the most recent of3 resultswithin the time period is included. Glucose 185(H) 70 - 130 mg/dL 04/29/2025 11:17 AM EDT [facility] Blood 04/29/2025 11:1 6 AM EDT 04/29/2025 11:17 AM EDT Clementina Moreno MD POINT OF CARE TEST ORDERABLES Final Result Performing Organization Address [facility] de Phone Number [facility]
[address] [place] [address], * (ABNORMAL) Protime-INR (04/29/2025 4:30 AM EDT) Only the most recent of2 resultswithin the time period is included. Protime 15.2 12.2 - 15.3 Seconds 04/29/2025 5:18 AM EDT [facility] INR 1.13(H) 0.89 - 1.12 04/29/2025 5:18 AM EDT [facility] Blood Venipuncture / Unknown 04/29/2025 4:30 AM EDT 04/29/2025 4:59 AM EDT Tristan Carr MD LAB BLOOD ORDERABLES Final Re sult Performing Organization Address [facility] Co de Phone Number [facility]
[address] [place] [address], [place] [phone] * (ABNORMAL) CBC (No Diff) (04/29/2025 4:30 AM EDT) WBC 7.99 3.40 - 10.80 10*3/mm3 04/29/2025 5:10 AM EDT [facility] RBC 3.09(L) 4.14 - 5.80 10*6/mm3 04/29/2025 5:10 AM EDT [facility] Hemoglobin 8.7(L) 13.0 - 17.7 g/dL 04/29/2025 5:10 AM EDT [facility] Hematocrit 28.5(L) 37.5 - 51.0 % 04/29/2025 5:10 AM EDT [facility] MCV 92.2 79.0 - 97.0 fL 04/29/2025 5:10 AM EDT [facility] MCH 28.2 26.6 - 33.0 pg 04/29/2025 5:10 AM EDT [facility] MCHC 30.5(L) 31.5 - 35.7 g/dL 04/29/2025 5:10 AM EDT [facility] RDW 19.8(H) 12.3 - 15.4 % 04/29/2025 5:10 AM EDT [facility] RDW-SD 66.5(H) 37.0 - 54.0 fl 04/29/2025 5:10 AM EDT [facility] MPV 9.1 6.0 - 12.0 fL 04/29/2025 5:10 AM EDT [facility] Platelets 252 140 - 450 10*3/mm3 04/29/2025 5:10 AM EDT [facility] Blood Venipuncture / Unknown 04/29/2025 4:30 AM EDT 04/29/2025 4:59 AM EDT us Vaishali Priest ASSISTED LIVING HOUSEKEEPER LAB BLOOD ORDERABLES Final Re sult [facility]
[address] [place] [address], * (ABNORMAL) Comprehensive Metabolic Panel (04/29/2025 4:30 AM EDT) Only the most recent of2 resultswithin the time period is included. Glucose 123(H) 65 - 99 mg/dL 04/29/2025 5:33 AM EDT [facility] BUN 18.7 8.0 - 23.0 mg/dL 04/29/2025 5:33 AM EDT [facility] Creatinine 0.86 0.76 - 1.27 mg/dL 04/29/2025 5:33 AM EDT [facility] Sodium 139 136 - 145 mmol/L 04/29/2025 5:33 AM EDT [facility] Potassium 3.7 3.5 - 5.2 mmol/L 04/29/2025 5:33 AM EDT [facility] Chloride 103 98 - 107 mmol/L 04/29/2025 5:33 AM EDT [facility] CO2 26.0 22.0 - 29.0 mmol/L 04/29/2025 5:33 AM EDT [facility] Calcium 9.1 8.6 - 10.5 mg/dL 04/29/2025 5:33 AM EDT [facility] Total Protein 6.0 6.0 - 8.5 g/dL 04/29/2025 5:33 AM EDT [facility] Albumin 3.9 3.5 - 5.2 g/dL 04/29/2025 5:33 AM EDT [facility] ALT (SGPT) 33 1 - 41 U/L 04/29/2025 5:33 AM EDT [facility] AST (SGOT) 28 1 - 40 U/L 04/29/2025 5:33 AM EDT [facility] Alkaline Phosphatase 70 39 - 117 U/L 04/29/2025 5:33 AM EDT [facility] Total Bilirubin 0.4 0.0 - 1.2 mg/dL 04/29/2025 5:33 AM EDT [facility] Globulin 2.1 gm/dL 04/29/2025 5:33 AM EDT [facility] Comment:Calculated Result A/G Ratio 1.9 g/dL 04/29/2025 5:33 AM EDT [facility] BUN/Creatinine Ratio 21.7 7.0 - 25.0 04/29/2025 5:33 AM EDT [facility] Anion Gap 10.0 5.0 - 15.0 mmol/L 04/29/2025 5:33 AM EDT [facility] eGFR 89.2 >60.0 mL/min/1.7 3 04/29/2025 5:33 AM EDT [facility] Blood Venipuncture / Unknown 04/29/2025 4:30 AM EDT 04/29/2025 4:59 AM EDT Narrative [facility] - 04/29/2025 5:33 AM EDT GFR [...] race as a factor us Vaishali Priest ASSISTED LIVING HOUSEKEEPER LAB BLOOD ORDERABLES Final Re sult [facility]
[address] [place] [address], * (ABNORMAL) Blood Gas, Venous With Co-Ox (04/28/2025 8:46 PM EDT) Site Nurse/Dr Johnson 04/28/2025 8:46 PM EDT [facility] pH, Venous 7.393 7.310 - 7.410 pH Units 04/28/2025 8:46 PM EDT [facility] pCO2, Venous 50.3 41.0 - 51.0 mm Hg 04/28/2025 8:46 PM EDT [facility] pO2, Venous 28.0 27.0 - 53.0 mm Hg 04/28/2025 8:46 PM EDT [facility] HCO3, Venous 30.6(H) 22.0 - 28.0 mmol/L 04/28/2025 8:46 PM EDT [facility] Base Excess, Venous 4.9(H) -2.0 - 2.0 mmol/L 04/28/2025 8:46 PM EDT [facility] Hemoglobin, Blood Gas 9.6(L) 13.5 - 17.5 g/dL 04/28/2025 8:46 PM EDT [facility] Oxyhemoglobin Venous 44.5 % 04/15 8:46 PM EDT [facility] Comment:84 Value below refer ence range Methemoglobin Venous 0.5 % 04/15 8:46 PM EDT [facility] Carboxyhemoglobin Venous 1.6 % 04/28/2025 8:46 PM EDT [facility] CO2 Content 32.2 22 - 33 mmol/L 04/28/2025 8:46 PM EDT [facility] Temperature 37.0 04/28/2025 8:46 PM EDT [facility] Barometric Pressure for Blood Gas 04/28/2025 8:46 PM EDT [facility] Comment:N/A Modality Nasal Cannula 04/28/2025 8:46 PM EDT [facility] FIO2 24 % 04/28/2025 8:46 PM EDT [facility] Rate 0 Breaths/ minute 04/28/2025 8:46 PM EDT [facility] PIP 0 cmH2O 04/28/2025 8:46 PM EDT [facility] Comment:Meter: [id number] Wall Covering Contractor: [id number] IPAP 0 04/28/2025 8:46 PM EDT [facility] EPAP 0 04/28/2025 8:46 PM EDT [facility] Venous Blood 04/28/2025 8:46 PM EDT 04/28/2025 8:46 PM EDT Tristan Carr MD LAB BLOOD ORDERABLES Final Re sult Performing Organization Address City/[facility]/ZIP Co de Phone Number [facility]
[address] * (ABNORMAL) High Sensitivity Troponin T 1Hr (04/28/2025 6:59 PM EDT) HS Troponin T 25(H) <22 ng/L 04/28/2025 7:30 PM EDT [facility] Troponin T Numeric Delta 10(HH) Abnormal if >/=3 ng/L 04/28/2025 7:30 PM EDT [facility] Blood Venipuncture / Unknown 04/28/2025 6:59 PM EDT 04/28/2025 7:02 PM EDT Narrative [facility] - 04/28/2025 7:30 PM [...] ORDERABLES Final R esult Performing Organization Address City/[facility]/ZIP Co de Phone Number [facility]
[address] [place] [address], * XR Chest 1 View (04/28/2025 6:16 PM EDT) Anatomical Region Laterality Modality Body N/A Radiographic Nubia ging 04/28/2025 6:25 PM EDT Impressions 04/28/2025 6:26 PM EDT Impression: No acute cardiopulmonary disease. Electronically Signed: Connor Hall MD 04/28/2025 6:26 PM EDT Workstation ID: [id number] Narrative 04/28/2025 6:26 PM EDT XR CHEST [...] MD 04/28/2025 6:26 PM EDT Workstation ID: [id number] Serafin Villalpando MD IM DIAGNOSTIC IMAGING ORDER NANDINI Final Result * ECG 12 Lead Dyspnea (04/28/2025 5:41 PM EDT) QT Interval 470 ms BH ECG QTC Interval 492 ms ECG 04/28/2025 5:41 PM EDT 05/10/2025 10:11 PM EDT Narrative BH ECG - 05/10/2025 10:11 PM EDT Test Reason : Dyspnea Blood Pressure : [...] QT Abnormal ECG No previous ECGs available Confirmed by SERAFIN VILLALPANDO ([id number]) on 05/10/2025 10:11:02 PM Referred By: chaya Confirmed By: SERAFIN VILLALPANDO Procedure Note Serafin Villalpando MD - 05/10/2025 Test Reason : Dyspnea Blood Pressure : [...] QT Abnormal ECG No previous ECGs available Confirmed by SERAFIN VILLALPANDO ([id number]) on 05/10/2025 10:11:02 PM Referred By: chaya Confirmed By: SERAFIN VILLALPANDO Serafin Villalpando MD ECG ORDERABLES Final Result ECG * Nash Top (04/28/2025 5:33 PM EDT) Extra Tube Hold for add-ons. 04/28/2025 5:45 PM EDT [facility] Comment:Auto resulted. Blood Line / Unknown 04/28/2025 5: 33 PM EDT 04/28/2025 5:38 PM EDT Serafin Villalpando MD LAB BLOOD ORDER ONLY Final R esult [facility]
[address] [place] [address], * Gold Top - [facility] (04/28/2025 5:33 PM EDT) Extra Tube Hold for add-ons. 04/28/2025 5:45 PM EDT [facility] Comment:Auto resulted. Blood Line / Unknown 04/28/2025 5: 33 PM EDT 04/28/2025 5:38 PM EDT Serafin Villalpando MD LAB BLOOD ORDER ONLY Final R esult Performing Organization Address City/[facility]/ZIP Co de Phone Number [facility]
[address] [place] [address], * Green Top (Gel) (04/28/2025 5:33 PM EDT) [facility] Extra Tube Hold for add-ons. 04/28/2025 5:45 PM EDT [facility] Comment:Auto resulted. Blood Line / Unknown 04/28/2025 5: 33 PM EDT 04/28/2025 5:38 PM EDT Serafin Villalpando MD LAB BLOOD ORDER ONLY Final R esult Performing Organization Address [facility]/ZIP Co de Phone Number [facility]
[address] [place] [address], * (ABNORMAL) CBC Auto Differential (04/28/2025 5:33 PM EDT) [facility] WBC 5.30 3.40 - 10.80 10*3/mm3 04/28/2025 5:41 PM EDT [facility] RBC 3.60(L) 4.14 - 5.80 10*6/mm3 04/28/2025 5:41 PM EDT [facility] Hemoglobin 10.3(L) 13.0 - 17.7 g/dL 04/28/2025 5:41 PM EDT [facility] Hematocrit 33.3(L) 37.5 - 51.0 % 04/28/2025 5:41 PM EDT [facility] MCV 92.5 79.0 - 97.0 fL 04/28/2025 5:41 PM EDT [facility] MCH 28.6 26.6 - 33.0 pg 04/28/2025 5:41 PM EDT [facility] MCHC 30.9(L) 31.5 - 35.7 g/dL 04/28/2025 5:41 PM EDT [facility] RDW 19.7(H) 12.3 - 15.4 % 04/28/2025 5:41 PM [facility] RDW-SD 66.3(H) 37.0 - 54.0 fl 04/28/2025 5:41 PM [facility] MPV 8.5 6.0 - 12.0 fL 04/28/2025 5:41 PM [facility] Platelets 245 140 - 450 10*3/mm3 04/28/2025 5:41 PM [facility] Neutrophil % 72.1 42.7 - 76.0 % 04/28/2025 5:41 PM [facility] Lymphocyte % 10.4(L) 19.6 - 45.3 % 04/28/2025 5:41 PM [facility] Monocyte % 7.5 5.0 - 12.0 % 04/28/2025 5:41 PM [facility] Eosinophil % 7.9(H) 0.3 - 6.2 % 04/28/2025 5:41 PM [facility] Basophil % 0.8 0.0 - 1.5 % 04/28/2025 5:41 PM [facility] Immature Grans % 1.3(H) 0.0 - 0.5 % 04/28/2025 5:41 PM [facility] Neutrophils, Absolute 3.82 1.70 - 7.00 10*3/mm3 04/28/2025 5:41 PM [facility] Lymphocytes, Absolute 0.55(L) 0.70 - 3.10 10*3/mm3 04/28/2025 5:41 PM [facility] Monocytes, Absolute 0.40 0.10 - 0.90 10*3/mm3 04/28/2025 5:41 PM [facility] Eosinophils, Absolute 0.42(H) 0.00 - 0.40 10*3/mm3 04/28/2025 5:41 PM [facility] Basophils, Absolute 0.04 0.00 - 0.20 10*3/mm3 04/28/2025 5:41 PM EDT [facility] Immature Grans, Absolute 0.07(H) 0.00 - 0.05 10*3/mm3 04/28/2025 5:41 PM EDT [facility] nRBC 0.0 0.0 - 0.2 /100 WBC 04/28/2025 5:41 PM EDT [facility] Blood Line / Unknown 04/28/2025 5: 33 PM EDT 04/28/2025 5:38 PM EDT us Serafin Villalpando MD LAB BLOOD ORDERABLES Final R esult [facility]
[address] [place] [address], * Lavender Top (04/28/2025 5:33 PM EDT) Extra Tube hold for add-on 04/28/2025 5:45 PM EDT [facility] Comment:Auto resulted Blood Line / Unknown 04/28/2025 5: 33 PM EDT 04/28/2025 5:38 PM EDT us Serafin Villalpando MD LAB BLOOD ORDER ONLY Final R esult [facility]
[address] [place] [address], * Light Blue Top (04/28/2025 5:33 PM EDT) Extra Tube Hold for add-ons. 04/28/2025 5:45 PM EDT [facility] Comment:Auto resulted Blood Line / Unknown 04/28/2025 5: 33 PM EDT 04/28/2025 5:38 PM EDT us Serafin Villalpando MD LAB BLOOD ORDER ONLY Final R esult Performing Organization Address [facility]/ZIP Co de Phone Number [facility]
[address] [place] [address], * BNP (04/28/2025 5:33 PM EDT) proBNP 420.5 0.0 - 1,800.0 pg/mL 04/28/2025 6:03 PM EDT [facility] Blood Line / Unknown 04/28/2025 5: 33 PM EDT 04/28/2025 5:38 PM EDT Narrative [facility] - 04/28/2025 6:03 PM [...] ORDERABLES Final R esult Performing Organization Address [facility] Co de Phone Number [facility]
[address] [place] [address], * Telemetry Scan (04/28/2025 5:31 PM EDT) Only the most recent of2 resultswithin the time period is included. [facility] Onbase ECG ORDERABLES Final Result from Last 3 Months Insurance [facility] SUP MEDICARE A & B Advance Directives * CPR (Attempt to Resuscitate) (Latest Code Status on File) Date Activated Date Inactivated Comments 04/28/2025 9:40 PM 04/29/2025 6:01 PM Question Answer Comments Code Status (Patient has no pulse and is not breathing): CPR (Attempt to Resuscitate) Medical Interventions (Patie nt has pulse or is breathing): Full Support Care Teams Document Restorer Relationship Specialty Start Date End Date Provider, No Known [facility] [address] PCP - General 04/28/25
--- OUTSIDE RECORDS SUMMARY | 2025-07-05 09:27 | XMS_ITS | Encounter Summary ---
Author Organization [facility] Address [address] [place] [place] [address] Care Team Providers Care Assistant To The Vice President Name Role Phone Abelardo Pappas MD Primary Care Provider [phone] Encounter Details Date Type Department Care Team (Late st Contact Info) Description 06/06/[address] [facility] [address] [place] [phone] Justen Jaimes MD [address] [facility] [address] [place] [phone] Social History Tobacco Use Types Packs/Day Years [...] No 025 3:40 PM EDT Fany Willis TAE 2. Non-Specific Active Suici cale Thoughts (Past 1 Month) No 06/06/2025 3:40 PM EDT Fany Willis RN 6. Suicidal Behavior (Lifetime) No 3:40 PM EDT Fany Willis, RN documented as of this encounter Plan of Treatment Upcoming Encounters Date Type Department Care Team (Late st Contact Info) Description 11/28/2025 2:00 PM EDT Office Visit [facility] [address] [place] [address] 11/28/2025 3:00 PM EDT Office Visit [facility] [address] [place] [address] Justen Jaimes MD [address] [address] 11/28/2025 3:15 PM EDT Clinical Support [facility] [address] [place] [address] documented as of this encounter Procedures Procedure Name Priority Date/Time Associated Diagnosis Comments COMPLETE METABOLIC PROFILE (CMP) Routine 06/04/2025 2:58 PM EDT CBC W/DIFF Routine 06/04/2025 2:58 PM EDT documented in this encounter Results * COMPLETE METABOLIC PROFILE (CMP) (06/04/2025 2:58 PM EDT) Justen Jaimes MD LAB BLOOD ORDERABLES Flaca l Result * CBC W/DIFF (06/04/2025 2:58 PM EDT) Justen Jaimes MD LAB BLOOD ORDERABLES Flaca l Result documented in this encounter Visit Diagnoses Not on filedocumented in this encounter Additional Health Concerns Assessment Noted Time PHQ-9 Depression Total Score: 0 12/28/19 25 1:21 PM EDT A fall risk assessment has been complete d for the patient 06/06/2025 3:46 PM EDT documented as of this encounter Care Teams Assistant To The Vice President Relationship Specialty Start Date End Date Abelardo Pappas MD [address] [place] [address] PCP - General 06/04/25 documented as of this encounter
--- OUTSIDE RECORDS SUMMARY | 2025-07-05 09:27 | XMS_ITS | Encounter Summary ---
Author Organization [facility] Address [address] [place] [address] Care Team Providers Care Workers' Compensation Hearings Officer Name Role Phone Abelardo Pappas MD Primary Care Provider [phone]- [phone] Encounter Details Date Type Department Care Team (Latest Contact Info) Description 06/06/2025 Travel Social History Tobacco Use Types Packs/Day [...] Fany Willis RN 2. Non-Specific Active Suici cael Thoughts (Past 1 Month) No 06/06/2025 3:40 PM EDT Fany Willis RN 6. Suicidal Behavior (Lifetime) No 3:40 PM EDT Fany Willis RN documented as of this encounter Plan of Treatment Upcoming Encounters Date Type Department Care Team (Late st Contact Info) Description 11/28/2025 2:00 PM EDT Office Visit [email or web address] at [facility] [address] [place] [phone] 11/28/2025 3:00 PM EDT Office Visit [facility] [[email or web address] at [facility] [address] [place] [phone] Justen Jaimes MD [address] [phone] 11/28/2025 3:15 PM EDT Clinical Support [facility] [[email or web address] at [facility] [address] [place] [phone] documented as of this encounter Visit Diagnoses Not on filedocumented in this encounter Additional Health Concerns Assessment Noted Time PHQ-9 Depression Total Score: 0 12/28/19 1:21 PM EDT A fall risk assessment has been complete d for the patient 06/06/2025 3:46 PM EDT documented as of this encounter Care Teams Workers' Compensation Hearings Officer Relationship Specialty Start Date End Date Abelardo Pappas MD [address] [place] [address] PCP - General 06/04/25 documented as of this encounter
--- OUTSIDE RECORDS SUMMARY | 2025-07-05 09:27 | XMS_ITS | Encounter Summary ---
Author Organization [facility] Address [address] [place] [address] Care Team Providers Care Extract Mixer Name Role Phone Tristan Billings DO Primary Care Provider [phone] Abelardo Pappas MD Primary Care Provider [phone]- [phone] Encounter Details Date Type Department Care Team (Late Contact Info) Description 06/01/2025 Orders Only [facility] [address] [place] [address] Justen Jaimes MD [address] [address] Social History Tobacco Use Types Packs/Day Years [...] Description 11/28/2025 2:00 PM EDT Office Visit [facility] [address] [place] [phone] 11/28/2025 3:00 PM EDT Office Visit [facility] [address] [place] [phone] Justen Jaimes MD [address] [place] [phone] 11/28/2025 3:15 PM EDT Clinical Support [facility] [address] [place] [phone] documented as of this encounter Procedures Procedure Name Priority Date/Time Associated Diagnosis Comments MR LUMBAR SPINE WO IV CONTRAST Routine 05/25/2025 9:34 AM EDT documented in this encounter Results * MR Lumbar Spine wo IV Contrast (05/25/2025 9:34 AM EDT) Anatomical Region Laterality Modality L-spine Magnetic Resonan ce us Justen Jaimes MD IMG MRI PROCEDURES Final Result documented in this encounter Visit Diagnoses Not on filedocumented in this encounter Additional Health Concerns Assessment Noted Time PHQ-9 Depression Total Score: 0 12/28/19 1:21 PM EDT A fall risk assessment has been complete d for the patient 12/27/2024 1:20 PM EDT documented as of this encounter Care Teams Extract Mixer Relationship Specialty Start Date End Date Tristan Billings DO [address] [place] [address] PCP - General 09/13/24 06/03/25 Abelardo Pappas MD [address] [place] [address] PCP - General 06/04/25 documented as of this encounter
[2025-07-05 09:53] LABS: Hematocrit 34.3 % (42.0-52.0); Hemoglobin 11.0 g/dL (14.1-18.0); Immature Granulocytes % 0.8 %; Mean Corpuscular HGB Conc 32.1 g/dL (31.8-35.4); Mean Corpuscular Hemoglobin 29.9 pg (27.0-31.2); Mean Corpuscular Volume 93.2 fl (80-94); Nucleated Red Blood Cells % 0.5 %; Platelet Count 272 K/mm3 (142-424); Red Blood Count 3.68 M/mm3 (4.60-6.20); Red Cell Distribution Width-SD 77.5 fL; White Blood Count 6.1 K/mm3 (4.8-10.8)
[2025-07-05 10:01] LABS: Chloride 100 mmol/L (98-107)
[2025-07-05 10:02] LABS: Potassium 3.8 mmoL/L (3.5-5.1); Sodium 141 mmol/L (136-145)
[2025-07-05 10:04] LABS: Blood Urea Nitrogen 19 mg/dl (9-20); Creatinine Clearance Estimated 78 mL/min (50-200); Creatinine,Serum 0.90 mg/dl (0.66-1.25); Estimated Glomerular Filt Rate 82 ml/min (>60); GFR (African American) 99 ML/MIN (>60)
[2025-07-05 10:05] LABS: Anion Gap 15.8 mEq/L (5-15); Calcium 9.2 mg/dl (8.4-10.2); Carbon Dioxide 29 mmol/L (22.0-30.0); Glucose 215 mg/dl (74-100)
== END 2025-07-05 23:59 | disposition home or self-care (01) ==
LOC: PREOP 09:03
PROVIDERS: PCP Family Medicine; Visit Provider Anesthesiology
DX: Z01.818 Encounter for other preprocedural examination (principal); Z01.812 Encounter for preprocedural laboratory examination
CPT/HCPCS: 80048; 85025

== ENCOUNTER 2025-07-07 14:04 | Outpatient (CLI) | payer MEDICARE, OTHER, SELFPAY ==
--- OUTSIDE RECORDS SUMMARY | 2025-06-06 14:15 | XMS_ITS | Encounter Summary ---
Author Organization [facility] Address [address] [place] [address] Care Team Providers Care Heavy Duty Custodian Name Role Phone Abelardo Pappas MD Primary Care Provider +1- [phone] Reason for Visit * Reason Comments Follow-up Encounter Details Date Type Department Care Team (Late st Contact Info) Description 06/06/2025 2:15 PM EDT Office Visit [facility] [address] [place] [phone] Justen Jaimes MD [address] [place] [address] Malignant neoplasm of prostate (CMS/HCC) [...] Jaimes MD - 06/06/2025 2:15 PM EDT [facility] at [facility] Division of Hematology and Oncology Hematology/Oncology [...] right side with 90% grade 4, equals Liberty score 4+5=9 adenocarcinoma involving 95% - 100% of 2 out of the 3 cores taken from the area of interest with 70% grade 4, and Liberty score 4+4 = 8 adenocarcinoma involving between [...] 08/09/2024. - Mr. Lezama was admitted to [facility] from 08/10/2024 through 08/15/2024 for urinary retention [...] prostate cancer Social History: Patient [place] in [place] with Social History Tobacco Use Smoking Status [...] MG tablet, , Disp: , Rfl: HYDROcodone-acetaminophen (Farson) 5-325 MG tablet, TAKE ONE TABLET BY [...] 0.3 06/06/2025 As detailed in HPI Imaging: [facility] [address] [place] [address] Patient Name: MARTIN LEZAMA Patient : 1945 [...] was GFR =50 6.2 mCi Ga-68 PSMA ([facility] [id number]) was injected IV. After an uptake time of 76 minutes, vertex through midthigh PET imaging was performed. This was followed by a low dose attenuation correction/anatomic localization CT from vertex through the midthigh levels. Urinary tract was opacified with an injection of 50 mL Omnipaque 350 (1 x 50 ml bottle of [facility] [id number]) administered [address] scan. [...] and discussed over the phone with his trash collector Dr. [place], who recommended bone antiresorptive agent [...] 11/28/2025 2:00 PM EDT Office Visit [facility] [address] [place] [address] 11/28/2025 3:00 PM EDT Office Visit [facility] [address] [place] [address] Justen Jaimes MD [address] [place] [phone] 11/28/2025 3:15 PM EDT Clinical Support [facility] [address] [place] [address] Scheduled Orders Name Type Priority Associated Diagnoses [...] - 4.400 ng/mL 06/06/2025 3:01 PM EDT [facility] Comment: This test was performed using Estefania e801 Electrochemiluminescent method. The test method is based on WHO-standardized calibration. Values obtained from different assay methods or manufacturers may not be comparable. External Psa, Free 0.17 ng/mL 2024 3:01 PM EDT [facility] Comment: Test method is based on WHO-standardized calibration using the Estefania E801 analyzer. Free PSA results by different test procedures cannot be directly compared with one another. External Psa- % Free 63 % 05/17 3:01 PM EDT [facility] Comment: PSA ng/mL % FREE PSA Probability of Prostate Cancer % Less than 4.00 N/A 17% 4.0 - 10.0 0-10 56% 10-15 28% 15-20 20% 20-25 16% Greater than 25 8% Greater than 10.0 N/A 49% Blood Venous blood specimen / Unknown 06/06/2025 1:50 PM EDT 06/06/2025 2:21 PM EDT us Justen Jaimes MD LAB BLOOD ORDERABLES Flaca l Result [facility] [address] [place] [address], * (ABNORMAL) Comprehensive Metabolic Panel, Plasma (06/06/2025 1:50 PM EDT) External Glucose 101(H) 74 - 100 mg/dL 06/06/2025 2:55 PM EDT [facility] External BUN 22(H) 6 - 20 mg/dL 06/06/2025 2:55 PM EDT [facility] External Creatinine Blood 0.97 0.70 - 1.20 mg/dL 06/06/2025 2:55 PM EDT [facility] External BUN/Creat Ratio 23(H) 10 - 20 (calc) 06/06/2025 2:55 PM EDT [facility] External Sodium 144 136 - 145 mmol/L 06/06/2025 2:55 PM EDT [facility] External Potassium 3.7 3.4 - 5.0 mmol/L 06/06/2025 2:55 PM EDT [facility] External Chloride 103 98 - 107 mmol/L 06/06/2025 2:55 PM EDT [facility] External Carbon Dioxide (CO2) 27 22 - 31 mmol/L 06/06/2025 2:55 PM T [facility] External Anion Gap (AG) 14 7 - 25 (calc) 06/06/2025 2:55 PM T [facility] External Calcium 10.0 8.6 - 10.2 mg/dL 06/06/2025 2:55 PM T [facility] External Total Protein 6.9 6.4 - 8.3 g/dL 06/06/2025 2:55 PM EDT [facility] External Albumin 4.4 3.5 - 5.2 g/dL 06/06/2025 2:55 PM T [facility] External Globulin 2.5 1.5 - 4.5 025 2:55 PM T [facility] External Albumin/Globulin Ratio 1.8 1.1 - 2.5 (calc) 06/06/2025 2:55 PM T [facility] External Bilirubin Total 0.3 0.1 - 1.0 mg/dL 06/06/2025 2:55 PM T [facility] Comment:NOTE: New reference range. External Alkaline Phosphatase 85 40 - 129 U/L 06/06/2025 2:55 PM T [facility] External AST (SGOT) 25 0 - 40 U/L 06/06/2025 2:55 PM EDT [facility] External ALT (SGPT) 32 0 - 41 U/L 06/06/2025 2:55 PM EDT [facility] External Estimated GFR 80 >=60 06/06/2025 2:55 PM EDT [facility] Comment: NOTE New calculation for GFR (CKD-EPI 2020) is formulated without race adjustment factors at the recommendation of the National Kidney Foundation and [place] [employer]ph[employer]. This calculation has not been validated in women. For pediatric patients refer to https://www.kidney.org/professionals/KDOQI/gfr_calculatorPed Blood Venous blood specimen / Unknown 06/06/2025 1:50 PM EDT 06/06/2025 2:21 PM EDT us Justen Jaimes MD LAB BLOOD ORDERABLES Flaca ledezma Result [facility] [address] [place] [address], * (ABNORMAL) CBC and Differential (06/06/2025 1:50 PM EDT) External WBC 5.5 3.8 - 10.8 10*3/uL 06/06/2025 4:06 PM EDT [facility] External Red Blood Cell (RBC) 3.67(L) 4.20 - 5.80 10*6/uL 06/06/2025 4:06 PM EDT [facility] External Hemoglobin 10.3(L) 14.0 - 18.0 g/dL 06/06/2025 4:06 PM EDT [facility] External Hematocrit 32.8(L) 40.0 - 52.0 % 06/06/2025 4:06 PM EDT [facility] External MCV 89 80 - 100 fL 06/06/2025 4:06 PM EDT [facility] External MCH 28 26 - 35 pg 06/06/2025 4:06 PM EDT [facility] External MCHC 31(L) 32 - 36 g/dL 06/06/2025 4:06 PM EDT [facility] External RDW 23.0(H) 11.0 - 15.0 % 06/06/2025 4:06 PM EDT [facility] External Mean Platelet Volume 7.3 6.2 - 10.5 fL 06/06/2025 4:06 PM EDT [facility] External Platelet Count (Plt) 326 150 - 400 10*3/uL 06/06/2025 4:06 PM EDT [facility] External Neutrophil# 3.5 1.6 - 8.4 10*3/uL 06/06/2025 4:06 PM EDT [facility] External Lymphocyte# 0.7 0.4 - 5.1 10*3/uL 06/06/2025 4:06 PM EDT [facility] External Absolute Monocyte (Abs [place]) 0.5 0.0 - 1.2 10*3/uL 06/06/2025 4:06 PM EDT [facility] External Eosinophils# 0.7 0.0 - 0.8 10*3/uL 06/06/2025 4:06 PM EDT [facility] External Baso# 0.1 0.0 - 0.3 10*3/uL 06/06/2025 4:06 PM EDT [facility] Comment:Smear reviewed to co nfirm cell morphology. External Neutrophils % 63.9 42.0 - 78.0 % 06/06/2025 4:06 PM EDT [facility] External Lymphocyte % 13.1 11.0 - 47.0 % 06/06/2025 4:06 PM EDT [facility] External Monocyte % 8.8 0.0 - 11.0 % 06/06/2025 4:06 PM EDT [facility] External Eosinophil% 13.2(H) 0.0 - 7.0 % 06/06/2025 4:06 PM EDT [facility] External Basophil % 1.0 0.0 - 3.0 % 06/06/2025 4:06 PM T [facility] External Nucleated RBC%-Auto 0.3 0.0 - 0.9 % 06/06/2025 4:06 PM T [facility] External Nucleated RBC Absolute 0.02 Not Estab. 10*3/uL 06/06/2025 4:06 PM T [facility] Blood Venous blood specimen / Unknown 06/06/2025 1:50 PM EDT 06/06/2025 2:21 PM EDT Justen Jaimes MD LAB BLOOD ORDERABLES Flaca ledezma Result Performing Organization Address City/State/[facility] Co de Phone Number [facility] [address] [place] [address], documented in this encounter Visit Diagnoses Diagnosis Malignant neoplasm of prostate (CMS/HCC)- Primary Malignant neoplasm of prostate Osteopenia of multiple sites documented in this encounter Additional Health Concerns Assessment Noted Time PHQ-9 Depression Total Score: 0 12/28/19 1:21 PM EDT A fall risk assessment has been complete d for the patient 06/06/2025 3:46 PM EDT documented as of this encounter Care Teams Heavy Duty Custodian Relationship Specialty Start Date End Date Abelardo Pappas MD [address] [place] [address] PCP - General 06/04/25 documented as of this encounter
--- OUTSIDE RECORDS SUMMARY | 2025-06-06 14:30 | XMS_ITS | Encounter Summary ---
Author Organization [facility] Address [address] [place] [address] Care Team Providers Care Farm Loan Representative Name Role Phone Abelardo Pappas MD Primary Care Provider +1- [phone] Reason for Visit * Reason Comments Injections * Episode Based Medications (Routine) - Authorized Specialty Diagnoses / Procedures Referred By Contdarien t Referred To Contact Diagnoses Osteopenia of multiple sites Justen Jaimes MD [address] [address] Phone: tel: fax: Justen Jaimes MD [address] [address] Phone: tel: fax: Referral ID Status Reason Start Date Expiration Date V isits Requested Visits Authorized [id number] Authorized 06/13/2025 12/13/2026 1 2 Encounter Details Date Type Department Care Team (Late st Contact Info) Description 06/06/2025 2:30 PM EDT Infusion [facility] [place] at [facility] [address] [address] Osteopenia of multiple sites (Primary [...] from the original note were not included. [id number] Denosumab Injection IMPORTANT WARNING: Denosumab injection products [...] doctor or pharmacist will give you the shagger's patient information sheet (Medication Guide) when you begin treatment with denosumab injection products. Read the information carefully and ask your doctor or pharmacist if you have any questions. You can also visit the Food and Drug Administration (FDA) website (https://www.fda.gov/Drugs/DrugSafety/vfp476971.htm) (or the shagger's website) to obtain the Medication Guide. Talk [...] or doctor for a copy of the shagger's information for the patient. Are there OTHER [...] of all of the prescription and nonprescription (oopu-oua-eidcrib) medicines, vitamins, minerals, and dietary supplements you [...] or pharmacist about specific clinical use. The [place] [employer]System [employer]. represents that the information provided hereunder was formulated with a reasonable standard of care, and in conformity with professional standards in the field. The [place] [employer]. makes no representations or warranties, express or implied, including, but not limited to, any implied warranty of merchantability and/or fitness for a particular purpose, with respect to such information and specifically disclaims all such warranties. Users are advised that decisions regarding drug therapy are complex medical decisions requiring the independent, informed decision of an appropriate health medicare nurse, and the information is provided for informational purposes only. The entire monograph for a drug should be reviewed for a thorough understanding of the drug's actions, uses and side effects. The [place] [employer] does not endorse or recommend the use of any drug.The information is not a substitute for medical care. AHFS?? Patient Medication Information?. ?? Copyright, 2023. The [place] [employer]-System Pharmacists??, [address] [facility], [address], [place], [place]. All Rights Reserved. Duplication for commercial use must be authorized by [facility]. AHFS?? Patient Medication Information?. ?? Copyright, 2024 documented in this encounter Plan of Treatment Upcoming Encounters Date Type Department Care Team (Late st Contact Info) Description 11/28/2025 2:00 PM EDT Office Visit [facility] at [address] [address] 11/28/2025 3:00 PM EDT Office Visit [facility] at [address] [phone] Justen Jaimes MD [address] [place] [phone] 11/28/2025 3:15 PM EDT Clinical Support [facility] at [address] [address] documented as of this encounter Visit Diagnoses [...] documented as of this encounter Care Teams Farm Loan Representative Relationship Specialty Start Date End Date Abelardo Pappas MD [address] [place] [address] PCP - General 06/04/25 documented as of this encounter
[2025-07-07 14:34] LABS: INR 1.02 (0.9-1.1); Prothrombin Time 11.3 seconds (10.1-12.5)
--- OUTSIDE RECORDS SUMMARY | 2025-07-07 14:45 | XMS_ITS | Data Portability ---
Author Organization [facility] MARY [facility] CLOSED Address [address] [place] [address] Assessment Encounter Date Assessment Date Assessment LastModified by Organization Details LastModified Time 08/04/2024 08/04/2024 PREOPERATIVE DIAGNOSIS: Elevated PSA. POSTOPERATIVE DIAGNOSIS: Elevated PSA. PROCEDURE: MRI-directed transrectal ultrasound, needle biopsy of prostate. SURGEON: Fady Lamb MD ANESTHESIA: Local MAC. BRIEF HISTORY: [...] appearance on his ultrasound imaging, but no tad lesions noted. Initially, the mid prostate on [...] Modified Time Details Appointments RECHECK 2024 01:30P Liz LAMB MD Not available Not available Not available RECHECK 2025 11:30A Liz GARDNER MD Not available Not available Not available Lab urinalysi s panel, auto [address] [facility], [address], [address], [place], [address], 02/28/2025 14:44:08 PSA, serum or plasma [address] [facility], [address], [address], [place], [address], 02/28/2025 14:44:08 urinalysi s panel, auto [address] [facility], [address], [address], [place], [address], 09/05/2024 22:40:08 Referral None recorded. Procedures None recorded. Surgeries None recorded. Imaging None recorded. Medication Orders levofloxa brittney 750 mg tablet 2023 [facility], [address] [place] [address] [address], [place], [place], [id number], 07/26/2024 13:18:08 oxybutyni n chloride ER 5 mg tablet,ex tended release 24 hr 2023 [facility], [address] [place] [address] [address], [place], [place], [id number], 07/26/2024 13:18:07 tamsulosi n 0.4 mg capsule 2023 024 [facility], [address], [place], [address], 07/25/2024 14:38:23 Patient TargetsNo targets recorded. Patient Instructions Encounter Date Encounter Id Patient Instructions Last Modified By Organization Details Last Modified Time 08/09/2024 [id number] learning about depression [email or web address] Not available 08/09/2024 21:12:50 Reason for Referral None Reported. Results Created Date Observation Date Name Description Value Unit Range Abnormal Flag Note LastModifiedBy Organization Detail LastModifiedTime 08/04/20 24 08/04/2024 PROTH ROMBI N TIME prothrombin time 11.5 secon ds 9.2-11 .0 high Not Available [facility] [address] [place], [address], 08/04/2024 08:45:13 08/04/2008/04/2024 PROTH ROMBI N TIME [...] PROST HETIC VALVE S Not Available [facility] [address] [place], [address], 08/04/2024 08:45:13 08/04/2008/04/2024 SURGI BRIEN surgical SEE BELOW abnormal Surgi brien Patho logy Repor t NAME: ALVARO SHARIF RD PATH: SS-24 -1288 1 DATE of : 09/02 7 Copy to: SUPPL EMENT AL SECTI ON A reque st for Genom ic prost ate score was recei ha 08-[address] Timot hy Adkin s. The test to be perfo rmed on tissu e from case SS-24 -0290 1. The case repor t, slide s, and block s for the cited acces christine were retri eved from archi ves. The [...] ATE , AREA OF INTER EST CLINI BRIEN INFOR MATIO N: R97.2 0 Gross Descr [...] Page 1 of 1 Not Available [facility] [address] [place] [address], [address], 08/10/2024 13:53:39 09/03/20 24 09/03/2024 urina lysis panel , auto Unknown Analyte Clean Catch Not Available [facility] [address], [place], [address], 09/03/2024 12:05:04 09/03/20 24 09/03/2024 urina lysis panel , auto Unknown Analyte Yellow Not Available [facility] [address], [place], [address], 09/03/2024 12:05:04 09/03/20 24 09/03/2024 urina lysis panel , auto Unknown Analyte Clear Not Available [facility] [place] [address], [place], [address], 09/03/2024 12:05:04 09/03/20 24 09/03/2024 urina lysis panel , auto Unknown Analyte 1.015 Not Available [facility] [address], [place], [address], 09/03/2024 12:05:04 09/03/20 24 09/03/2024 urina lysis panel , auto Unknown Analyte 1.003- 1.035 Not Available [facility] [address], [place], [address], 09/03/2024 12:05:04 09/03/20 24 09/03/2024 urina lysis panel , auto Unknown Analyte 5.0 Not Available [facility] [address], [place], [address], 09/03/2024 12:05:04 09/03/20 24 09/03/2024 urina lysis panel , auto Unknown Analyte 5.0-8. 0 Not Available [facility] [address], [place], [address], 09/03/2024 12:05:04 09/03/20 24 09/03/2024 urina lysis panel , auto Unknown Analyte Negati ve Not Available [facility] [address], [place], [address], 09/03/2024 12:05:04 09/03/20 24 09/03/2024 urina lysis panel , auto Unknown Analyte Negati ve Not Available [facility] [address], [place], [address], 09/03/2024 12:05:04 09/03/20 24 09/03/2024 urina lysis panel , auto Unknown Analyte Negati ve Not Available [facility] [address], [place], [address], 09/03/2024 12:05:04 09/03/20 24 09/03/2024 urina lysis panel , auto Unknown Analyte Negati ve Not Available [facility] [address], [place], [address], 09/03/2024 12:05:04 09/03/20 24 09/03/2024 urina lysis panel , auto Unknown Analyte Negati ve Not Available [facility] [address], [place], [address], 09/03/2024 12:05:04 09/03/20 24 09/03/2024 urina lysis panel , auto Unknown Analyte Negati ve Not Available [facility] [address], [place], [address], 09/03/2024 12:05:04 09/03/20 24 09/03/2024 urina lysis panel , auto Unknown Analyte >1000 mg/dl Not Available [facility] [address], [place], [address], 09/03/2024 12:05:04 09/03/20 24 09/03/2024 urina lysis panel , auto Unknown Analyte Normal Not Available [facility] [address], [place], [address], 09/03/2024 12:05:04 09/03/20 24 09/03/2024 urina lysis panel , auto Unknown Analyte Negati ve Not Available [facility] [address], [place], [address], 09/03/2024 12:05:04 09/03/2009/03/2024 urina lysis panel , auto Unknown Analyte Negati ve Not Available [facility] [address], [place], [address], 09/03/2024 12:05:04 09/03/20 24 09/03/2024 urina lysis panel , auto Unknown Analyte Normal Not Available [facility] [address], [place], [address], 09/03/2024 12:05:04 09/03/2009/03/2024 urina lysis panel , auto Unknown Analyte Normal 1 mg/dl Not Available [facility] [address], [place], [address], 09/03/2024 12:05:04 09/03/20 24 09/03/2024 urina lysis panel , auto Unknown Analyte Negati ve Not Available [facility] [address], [place], [address], 09/03/2024 12:05:04 09/03/20 24 09/03/2024 urina lysis panel , auto Unknown Analyte Negati ve Not Available [facility] [address], [place], [address], 09/03/2024 12:05:04 09/03/20 24 09/03/2024 urina lysis panel , auto Unknown Analyte 250 Arslan/ul Not Available [facility] [address], [place], [address], 09/03/2024 12:05:04 09/03/20 24 09/03/2024 urina lysis panel , auto Unknown Analyte Negati ve Not Available [facility] [address], [place], [address], 09/03/2024 12:05:04 02/29/20 25 02/28/2025 PSA, serum or plasm a PSA 0.53 NG/mL 0.0 - 4.0 Not Available [facility] [address], [place], [address], 02/28/2025 14:21:40 02/29/20 25 02/28/2025 urina lysis panel , auto Unknown Analyte Clean Catch Not Available [facility] [address], [place], [address], 02/28/2025 14:04:51 02/29/20 25 02/28/2025 urina lysis panel , auto Unknown Analyte Yellow Not Available [facility] [address], [place], [address], 02/28/2025 14:04:51 02/29/20 25 02/28/2025 urina lysis panel , auto Unknown Analyte Clear Not Available [facility] [address], [place], [address], 02/28/2025 14:04:51 02/29/20 25 02/28/2025 urina lysis panel , auto Unknown Analyte 1.020 Not Available [facility] [address], [place], [address], 02/28/2025 14:04:51 02/29/20 25 02/28/2025 urina lysis panel , auto Unknown Analyte 1.003 - 1.030 Not Available [facility] [address], [place], [address], 02/28/2025 14:04:51 02/29/20 25 02/28/2025 urina lysis panel , auto Unknown Analyte 5.0 Not Available [facility] [address], [place], [address], 02/28/2025 14:04:51 02/29/20 25 02/28/2025 urina lysis panel , auto Unknown Analyte 5.0 - 8.0 Not Available [facility] [address], [place], [address], 02/28/2025 14:04:51 02/29/20 25 02/28/2025 urina lysis panel , auto Unknown Analyte 75 Iveth/uL Not Available [facility] [address], [place], [address], 02/28/2025 14:04:51 02/29/20 25 02/28/2025 urina lysis panel , auto Unknown Analyte Negati ve Not Available [facility] [address], [place], [address], 02/28/2025 14:04:51 02/29/20 25 02/28/2025 urina lysis panel , auto Unknown Analyte Negati ve Not Available [facility] [address], [place], [address], 02/28/2025 14:04:51 02/29/20 25 02/28/2025 urina lysis panel , auto Unknown Analyte Negati ve Not Available [facility] [address], [place], [address], 02/28/2025 14:04:51 02/29/20 25 02/28/2025 urina lysis panel , auto Unknown Analyte Trace Not Available [facility] [address], [place], [address], 02/28/2025 14:04:51 02/29/20 25 02/28/2025 urina lysis panel , auto Unknown Analyte Negati ve Not Available [facility] [address], [place], [address], 02/28/2025 14:04:51 02/29/20 25 02/28/2025 urina lysis panel , auto Unknown Analyte >1000 mg/dL Not Available [facility] [address], [place], [address], 02/28/2025 14:04:51 02/29/20 25 02/28/2025 urina lysis panel , auto Unknown Analyte Normal Not Available [facility] [address], [place], [address], 02/28/2025 14:04:51 02/29/20 25 02/28/2025 urina lysis panel , auto Unknown Analyte Negati ve Not Available [facility] [address], [place], [address], 02/28/2025 14:04:51 02/29/20 25 02/28/2025 urina lysis panel , auto Unknown Analyte Negati ve Not Available [facility] [address], [place], [address], 02/28/2025 14:04:51 02/29/20 25 02/28/2025 urina lysis panel , auto Unknown Analyte Normal Not Available [facility] [address], [place], [address], 02/28/2025 14:04:51 02/29/20 25 02/28/2025 urina lysis panel , auto Unknown Analyte Normal Not Available [facility] [address], [place], [address], 02/28/2025 14:04:51 02/29/20 25 02/28/2025 urina lysis panel , auto Unknown Analyte 1 mg/dL Not Available [facility] [address], [place], [address], 02/28/2025 14:04:51 02/29/20 25 02/28/2025 urina lysis panel , auto Unknown Analyte Negati ve Not Available [facility] [address], [place], [address], 02/28/2025 14:04:51 02/29/20 25 02/28/2025 urina lysis panel , auto Unknown Analyte 50 Arslan/uL Not Available [facility] [address], [place], [address], 02/28/2025 14:04:51 02/29/20 25 02/28/2025 urina lysis panel , auto Unknown Analyte Negati ve Not Available [facility] [address] [facility] [address], [place], [address], 02/28/2025 14:04:51 06/06/20 25 06/06/2025 MORPH OLOGY platelet morphology NORMAL normal Not Available [facility] [address] [place], [address], 06/06/2025 16:06:17 06/06/20 25 06/06/2025 MORPH OLOGY ovalocytes SLIGHT abnormal Not Available [facility] [address] [place], [address], 06/06/2025 16:06:17 06/06/20 25 06/06/2025 MORPH OLOGY stomatocytes SLIGHT abnormal Not Available [facility] [address] [place], [address], 06/06/2025 16:06:17 06/06/20 25 06/06/2025 MORPH OLOGY target cells SLIGHT abnormal Not Available [facility] [address] [place], [address], 06/06/2025 16:06:17 06/06/20 25 06/06/2025 MORPH OLOGY dacryocytes SLIGHT abnormal Not Available [facility] [address] [place], [address], 06/06/2025 16:06:17 06/06/20 25 06/06/2025 COMPL ETE BLOOD COUNT white blood cells 5.5 10*3/ uL 3.8-10 .8 normal Not Available [facility] [address] [place] [address], [address], 06/06/2025 16:06:16 06/06/20 25 06/06/2025 COMPL ETE BLOOD COUNT red blood cells 3.67 10*6/ uL 4.20-5 .80 low Not Available [facility] [address] [place] [address], [address], 06/06/2025 16:06:16 06/06/20 25 06/06/2025 COMPL ETE BLOOD COUNT hemoglobin 10.3 g/dL 14.0-1 8.0 low Not Available [facility] [address] [place] [address], [address], 06/06/2025 16:06:16 06/06/20 25 06/06/2025 COMPL ETE BLOOD COUNT hematocrit 32.8 % 40.0-5 2.0 low Not Available [facility] [address] [place] [address], [address], 06/06/2025 16:06:16 06/06/20 25 06/06/2025 COMPL ETE BLOOD COUNT MCV 89 fL 80-100 normal Not Available [facility] [address] [place] [address], [address], 06/06/2025 16:06:16 06/06/20 25 06/06/2025 COMPL ETE BLOOD COUNT MCH 28 pg 26-35 normal Not Available [facility] [address] [place] [address], [address], 06/06/2025 16:06:16 06/06/20 25 06/06/2025 COMPL ETE BLOOD COUNT MCHC 31 g/dL 32-36 low Not Available [facility] [address] [place] [address], [address], 06/06/2025 16:06:16 06/06/20 25 06/06/2025 COMPL ETE BLOOD COUNT RDW 23.0 % 11.0-1 5.0 high Not Available [facility] [address] [place] [address], [address], 06/06/2025 16:06:16 06/06/20 25 06/06/2025 COMPL ETE BLOOD COUNT MPV 7.3 fL 6.2-10 .5 normal Not Available [facility] [address] [place] [address], [address], 06/06/2025 16:06:16 06/06/20 25 06/06/2025 COMPL ETE BLOOD COUNT platelet count 326 10*3/ uL 150-40 0 normal Not Available [facility] [address] [place] [address], [address], 06/06/2025 16:06:16 06/06/20 25 06/06/2025 COMPL ETE BLOOD COUNT neutrophil,a bsolute 3.5 10*3/ uL 1.6-8. 4 normal Not Available [facility] [address] [place] [address], [address], 06/06/2025 16:06:16 06/06/20 25 06/06/2025 COMPL ETE BLOOD COUNT lymphocyte,a bsolute 0.7 10*3/ uL 0.4-5. 1 normal Not Available [facility] [address] [place] [address], [address], 06/06/2025 16:06:16 06/06/20 25 06/06/2025 COMPL ETE BLOOD COUNT monocyte,abs olute 0.5 10*3/ uL 0.0-1. 2 normal Not Available [facility] [address] [place] [address], [address], 06/06/2025 16:06:16 06/06/20 25 06/06/2025 COMPL ETE BLOOD COUNT eosinophil,a bsolute 0.7 10*3/ uL 0.0-0. 8 normal Not Available [facility] [address] [place] [address], [address], 06/06/2025 16:06:16 06/06/20 25 06/06/2025 COMPL ETE BLOOD COUNT basophil,abs olute 0.1 10*3/ uL 0.0-0. 3 normal Smear revie wed to confi rm cell morph ology . Not Available [facility] [address] [place] [address], [address], 06/06/2025 16:06:16 06/06/20 25 06/06/2025 COMPL ETE BLOOD COUNT % neutrophils 63.9 % 42.0-7 8.0 normal Not Available [facility] [address] [place] [address], [address], 06/06/2025 16:06:16 06/06/20 25 06/06/2025 COMPL ETE BLOOD COUNT % lymphocytes 13.1 % 11.0-4 7.0 normal Not Available [facility] [address] [place] [address], [address], 06/06/2025 16:06:16 06/06/20 25 06/06/2025 COMPL ETE BLOOD COUNT % monocytes 8.8 % 0.0-11 .0 normal Not Available [facility] [address] [place] [address], [address], 06/06/2025 16:06:16 06/06/20 25 06/06/2025 COMPL ETE BLOOD COUNT % eosinophils 13.2 % 0.0-7. 0 high Not Available [facility] [address] [place] [address], [address], 06/06/2025 16:06:16 06/06/20 25 06/06/2025 COMPL ETE BLOOD COUNT % basophils 1.0 % 0.0-3. 0 normal Not Available [facility] [address] [place] [address], [address], 06/06/2025 16:06:16 06/06/20 25 06/06/2025 COMPL ETE BLOOD COUNT nucleated red cells 0.3 % 0.0-0. 9 normal Not Available [facility] [address] [place] [address], [address], 06/06/2025 16:06:16 06/06/20 25 06/06/2025 COMPL ETE BLOOD COUNT nucleated RBCs, absolute 0.02 10*3/ uL not estab. normal Not Available [facility] [address] [place], [address], 06/06/2025 16:06:16 06/06/20 25 06/06/2025 PSA, TOTAL AND FREE prostate specific Ag 0.269 NG/mL 0.000- 4.400 normal This test was perfo rmed using Ekta e801 Elect ekta milum inesc ent metho d. The test metho d is based on WHO-s tanda rdize d calib ratio n. Value s obtai doug from diffe rent assay metho ds or manuf actur ers may not be nyla rable . Not Available [facility] [place], [address], 06/06/2025 15:01:06 06/06/20 25 06/06/2025 PSA, TOTAL AND FREE free PSA 0.17 NG/mL normal Test metho d is based on WHO-s tanda rdize d calib ratio n using the Ekta E801 fadia zer. Free PSA resul ts by diffe rent test proce dures canno t be direc tly nyla red with one anoth er. Not Available [facility] [address] [place], [address], 06/06/2025 15:01:06 06/06/20 25 06/06/2025 PSA, TOTAL AND FREE % free PSA 63 % normal ____ PSA ng/mL % FREE PSA Proba bilit y of Prost ate Cance r % ____ Less than 4.00 N/A 17% 4.0 - 10.0 0-10 56% 10-15 28% 15-20 20% 20-25 16% Great er than 25 8% Great er than 10.0 N/A 49% ____ Not Available [facility] [address] [place] [address], [address], 06/06/2025 15:01:06 06/06/20 25 06/06/2025 COMP. METAB OLIC PANEL glucose 101 mg/dL 74-100 high Not Available [facility] [address] [place] [address], [address], 06/06/2025 14:55:03 06/06/20 25 06/06/2025 COMP. METAB OLIC PANEL blood urea nitrogen 22 mg/dL 6-20 high Not Available [facility] [address] [place] [address], [address], 06/06/2025 14:55:03 06/06/20 25 06/06/2025 COMP. METAB OLIC PANEL creatinine 0.97 mg/dL 0.70-1 .20 normal Not Available [facility] [address] [place] [address], [address], 06/06/2025 14:55:03 06/06/20 25 06/06/2025 COMP. METAB OLIC PANEL BUN/creatini ne ratio 23 (calc ) 10-20 high Not Available [facility] [address] [place] [address], [phone], 06/06/2025 14:55:03 06/06/20 25 06/06/2025 COMP. METAB OLIC PANEL sodium 144 mmol/ L 136-14 5 normal Not Available [facility] [address] [place] [address], [phone], 06/06/2025 14:55:03 06/06/20 25 06/06/2025 COMP. METAB OLIC PANEL potassium 3.7 mmol/ L 3.4-5. 0 normal Not Available [facility] [address] [place] [address], [phone], 06/06/2025 14:55:03 06/06/20 25 06/06/2025 COMP. METAB OLIC PANEL chloride 103 mmol/ L 98-107 normal Not Available [facility] [address] [place] [address], [address], 06/06/2025 14:55:03 06/06/20 25 06/06/2025 COMP. METAB OLIC PANEL carbon dioxide 27 mmol/ L 22-31 normal Not Available [facility] [address] [place] [address], [phone], 06/06/2025 14:55:03 06/06/20 25 06/06/2025 COMP. METAB OLIC PANEL anion gap 14 (calc ) 7-25 normal Not Available [facility] [address] [place] [address], [phone], 06/06/2025 14:55:03 06/06/20 25 06/06/2025 COMP. METAB OLIC PANEL calcium 10.0 mg/dL 8.6-10 .2 normal Not Available [facility] [address] [place] [address], [address], 06/06/2025 14:55:03 06/06/20 25 06/06/2025 COMP. METAB OLIC PANEL total protein 6.9 g/dL 6.4-8. 3 normal Not Available [facility] [address] [place] [address], [phone], 06/06/2025 14:55:03 06/06/20 25 06/06/2025 COMP. METAB OLIC PANEL albumin 4.4 g/dL 3.5-5. 2 normal Not Available [facility] [address] [place] [address], [address], 06/06/2025 14:55:03 06/06/20 25 06/06/2025 COMP. METAB OLIC PANEL globulin 2.5 1.5-4. 5 normal Not Available [facility] [address] [place] [address], [phone], 06/06/2025 14:55:03 06/06/20 25 06/06/2025 COMP. METAB OLIC PANEL albumin/glob ulin ratio 1.8 (calc ) 1.1-2. 5 normal Not Available [facility] [address] [place] [address], [address], 06/06/2025 14:55:03 06/06/20 25 06/06/2025 COMP. METAB OLIC PANEL bilirubin, total 0.3 mg/dL 0.1-1. 0 normal NOTE: New refer ence range . Not Available [facility] [address] [place] [address], [phone], 06/06/2025 14:55:03 06/06/20 25 06/06/2025 COMP. METAB OLIC PANEL alkaline phosphatase 85 U/L 40-129 normal Not Available [facility] [address] [place], [address], 06/06/2025 14:55:03 06/06/20 25 06/06/2025 COMP. METAB OLIC PANEL AST 25 U/L 0-40 normal Not Available [facility] [address] [place] [address], [address], 06/06/2025 14:55:03 06/06/20 25 06/06/2025 COMP. METAB OLIC PANEL ALT 32 U/L 0-41 normal Not Available [facility] [address] [place], [address], 06/06/2025 14:55:03 06/06/20 25 06/06/2025 COMP. METAB OLIC PANEL eGFR 80 >= 60 normal NOT E New calcu latio n for GFR (CKD- EPI 2020) is formu lated witho ut race adjus tment facto rs at the recom menda tion of the [employer] ation and Ameri can Socie ty of Nephr ology . This calcu latio n has not been valid ated in pregn ant women . For pedia tric patie nts refer to https ://bhakti w.mary sommers.o rg/pr ofess ional s/KDO QI/gf r_cal culat orPed Not Available [facility] [address] [place], [address], 06/06/2025 14:55:03 06/22/20 24 06/22/2024 MRI, pelvi s, w/wo contr ast [address] [address] Patidc t Name: TRISHA Paige t : 1944 Patien t Orderi ng [...] st (1 x 10 mL bottle of [facility] 23019- 325-02 ) IV. 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 IMPRES CHRISTINE: 1. Change s of BPH 2. PI-RAD S 5/5 amoeba form lesion involv ing the right transi tional zone. 3. Semina l vesicl es grossl y unrema rkable 4. No defini te indica tion of extrap rostat ic diseas e noted Interp reted By: Tristan Escalona MD Electr onical ly Signed By: Tristan Escalona MD on 024 2:[email or web address] [place] [address] Radiology [facility] [address] [facility], [place], [address], 07/23/2024 10:05:21 09/01/20 24 09/01/2024 PET-C T, skull base to mid-t high scan [facility] [address] [facility] [place] [address] Patidc t Name: TRISHA olson : 1944 Patidc t Boris Christianson er: ZORAIDA GARDNER EXAM DATE: 2023 EXAM: [...] was GFR =50 6.2 mCi Ga-68 PSMA ([facility] 19370- 100-64 ) was inject ed IV. After [...] 350 (1 x 50 ml bottle of [facility] 0407-1 414-89 ) admini stered 20 minute [...] There is adenop athy in the internal investigator al iliac region and along the margin [...] findin g is seen. COMBIN ED IMPRES CHRISTINE: 1. PSMA PET avid mass involv ing the prosta te compat ible with malign matt 2. There is indica tion of psma avid adenop athy involv ing the abdome n and pelvis bilate rally Interp reted By: Tristan Escalona MD Electr onical ly Signed By: Tristan Escalona MD on 2023 12:24 PM INTERFACE [facility] [address] [place] [address], [phone], 09/01/2024 12:29:17 09/27/19 25 09/27/2024 MRI, pelvi s, w/o contr ast [address] [place] [address] Patien t Name: TRISHA Mireles OVERMA N Patien t : 1944 Patien t Orderi ng Provid er: ZORAIDA GARDNER EXAM DATE: 2024 EXAM: MR PROSTA TE RADIAT ION PLAN WO CONTRA [facility] AL INFORM ATION: Bladde r cancer TECHNI QUE: Biplan ar T2, [...] ious osseou s lesion is seen. IMPRES CHRISTINE: 1. Radiat ion therap y planni ng MR with marker and gel locati on as descri bed above. 2. Very tiny obtura tor nodes are noted bilate rally of uncert ain signif icance Interp reted By: Tristan Escalona MD Electr onical ly Signed By: Tristan Escalona MD on 025 4:20 PM INTERFACE [facility] [address], [address], 09/27/2024 16:25:25 Result Notes Documentation Provider Name and Address Organization Details Recorded Time Pet-ct, Skull Base To Mid-thigh Scan : [address] [address] Patient Name: ALBERT LEZAMA Patient : 1945 Patient Ordering Provider: ZORAIDA GARDNER EXAM DATE: 09/01/2024 EXAM: PET-CT PSMA SKULL MID THIGH INT ST CLINICAL INFORMATION: Prostate Cancer - Initial PROCEDURE: A baseline serum creatinine with eGFR was obtained prior to injection of contrast medium due to the patients risk factors for BRITTNEY. Calculated eGFR at time of exam was GFR =50 6.2 mCi Ga-68 PSMA ([facility] 91783-963-67) was injected IV. After an uptake time of 76 minutes, vertex through midthigh PET imaging was performed. This was followed by a low dose attenuation correction/anatomic localization CT from vertex through the midthigh levels. Urinary tract was opacified with an injection of 50 mL Omnipaque 350 (1 x 50 ml bottle of [facility] 0545-2544-50) administered [address] scan. [...] Interpreted By: Tristan Escalona MD Not Available [facility] 09/01/2024 12:29:17 Mri, Pelvis, W/o Contrast : [address] [address] Patient Name: ALBERT LEZAMA Patient : 1945 Patient Ordering Provider: [...] Interpreted By: Tristan Escalona MD Not Available [facility] 09/27/2024 16:25:25 Problems No Known Problems Procedures Surgical History Date Name Laterality Status Provider Name and Address Organization Details Recorded Time 02/29/20 25 Lupron Administration completed Harleen Monroy [facility] 02/28/2025 14:50:38 09/03/20 24 Lupron Administration completed Sadia Ndiaye [facility] 09/03/2024 13:10:22 Vasectomy completed Sadia Ndiaye [facility] 05/19/2024 15:50:09 procedure on knee completed Sadia Ndiaye [facility] 05/19/2024 15:52:15 mechanical prosthetic aortic valve replacement completed Tammy Curtis [facility] 05/21/2024 09:02:43 Imaging Results None [...] Updated DateTime 02/28/2025 187.96 cm 23.8 kg/m2 86912.59 g Harleen Porfirio [facility] 02/28/2025 14:14:02 Date Recorded Body height Body mass index (BMI) Body weight Provider Name and Address Organization Details Last Updated DateTime 07/23/2024 187.96 cm 24.4 kg/m2 30887.55 g Tammy Curtis [facility] 07/23/2024 12:18:57 Date Recorded Body height Body mass index (BMI) Body weight Provider Name and Address Organization Details Last Updated DateTime 08/09/2024 187.96 cm 24.4 kg/m2 54622.55 g Grazyna Terrazas [facility] 08/09/2024 14:37:05 Date Recorded Body height Body mass index (BMI) Body weight Provider Name and Address Organization Details Last Updated DateTime 09/03/2024 187.96 cm 24.4 kg/m2 39991.55 g Sadia Ndiaye [facility] 09/03/2024 13:09:35 Social History Question Answer Notes LastModified by Organizat ion Details LastModified Time Tobacco Smoking Status Former Smoker cigarettes Sadia Ndiaye [facility] 05/19/2024 15:49:08 When Did You Quit Smoking? 18+yearssin taco [email or web address] Information not available 05/19/2024 What Was The Date Of Your Most Recent Tobacco Screening? 02/28/2025 [email or web address] Information not available 02/28/2025 What Is Your Relationship Status? [email or web address] Information not available 05/19/2024 How Much Tobacco Do You Smoke? No [email or web address] Information not available 05/19/2024 Has Tobacco Cessation Counseling Been Provided? No Information not available 05/19/2024 Sex: Male Functional Status Question Answer Note LastModified by Organizat ion Details LastModified Time Do you use any illicit or recreational drugs? No [email or web address] Information not available 05/19/2024 Do you or have you ever used any other forms of tobacco or nicotine? No [email or web address] Information not available 05/19/2024 What is your level of alcohol consumption? None [email or web address] Information not available 05/19/2024 Are you currently employed? No retired [email or web address] Information not available 05/19/2024 Mental Status None recorded. Family History Nothing Reported. Medical History Condition Response Sleep Apnea Y Past Encounters Encounter ID Performer Location Encounter Start Date Encounter Closed Date Diagnosis/Indication Diagnosis SNOMED-CT Code Diagnosis ICD10 Code Diagnosis IMO Codes Diagnosis Note [id number] FADY LAMB MD [facility] [address] [place] [address] 05/19/2024 13:25:43 05/21/2024 06:07:21 Prostate specific antigen above reference range 789387632 R97.20 Sailaja astudillo his medical history I suggest we arrange [...] needle biopsy of the prostate Large prostate 826755183 N40.0 Continue tamsulosin [id number] FADY LAMB MD [facility] [address] [place] [address] 07/23/2024 11:25:17 07/23/2024 16:41:36 Prostate specific antigen above reference range 758235683 R97.20 We will arrange for MRI directed transrecta l ultrasound and needle biopsy of the prostate under sedation. 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 We discussed that he may have issues with hematuria for prolonged period of time sailaja astudillo his chronic anticoagul ation therapy. Retention of urine 40994 4002 R33.9 Voiding trial today Malignant neoplasm of prostate 267270754 C61 We will refer to radiation oncology. Will arrange for total body bone scan [id number] ZORAIDA GARDNER MD [facility] [address] [place] [address] 08/17/2024 10:55:10 08/30/2024 12:23:43 [id number] FADY LAMB MD [facility] [address] [place] [address] 09/03/2024 11:13:19 09/03/2024 16:46:21 Malignant neoplasm of prostate 603564307 C61 Follow-up 6 months with PSA [id number] ZORAIDA GARDNER MD [facility] [address] [place] [address] 09/17/2024 09:29:57 09/21/2024 10:50:56 [id number] FADY LAMB MD [facility] [address] [place] [address] 02/28/2025 13:16:41 02/28/2025 14:52:53 History of malignant neoplasm of prostate 607157609 Z85.46 [id number] He received a 6-month Eligard injection today and we will see him back in 6 months with PSA [id number] ZORAIDA GARDNER MD [facility] [address] [place] [address] 05/09/2025 13:28:35 06/09/2025 11:15:00 Health Concerns Section Related Observation LastModified by Organization Detai ls LastModified Time None Recorded Concern Status LastModified by Organization Details LastModified Time None Recorded Advance Directives Directive None Recorded Payers Insurance Date Sequence Insurance Name Policy Number Policy Carroll Covered Member ID Carroll Member ID Guarantor Name 02/25/2025 1 [place] Albert Mireles Lise [id number] Albert Chi Lise 06/08/2025 2 FOR LIFE () Albert Lezama [id number] Albert Mireles Lise Notes Date Note Type Note Provider Name [...] Levaquin to begin prior to his biopsy. FADY LAMB MD [address] [place], [address], [facility] 07/25/2024 14:39:29 08/09/2024 text/html Patient is here [...] has been to the emergency room at [facility] 3-4 different times for catheter irrigation. Currently is urine is grape juice colored and appears to be old blood. Unfortunately his biopsy has showed several cores positive for high-grade prostate cancer. He had Erica score of 9(5+4) in the area of interest as well as several cores positive on the right side of the prostate. He had Lu Verne score of 8 on the left side. [...] in the bladder on CT scan at [facility] over the weekend. He is here today with his and daughter. We discussed his pathology. We will refer him to radiation oncology and arrange for a bone scan. His Beltre catheter was removed. He will contact me if he is having difficulty voiding. He currently is back on both warfarin and remaining on Lovenox as his INR was 1.2 earlier today FADY LAMB MD [address] [place] [address] [place], [address], [facility] 08/09/2024 21:13:11 09/03/2024 text/html Patient is here to start LHRH antagonist therapy in anticipation of external beam radiation therapy for prostate cancer. We discussed potential side effects and expectations. He received a 6-month. Lupron injection. FADY LAMB MD [address] [place] [address] [place], [address], [facility] 09/05/2024 22:40:50 02/28/2025 text/html Patient is here [...] months. He now seeing Dr. Pappas in [place] as his primary care. FADY LAMB MD [facility] [place], [address], [facility] 02/28/2025 17:48:31
--- OUTSIDE RECORDS SUMMARY | 2025-07-07 14:45 | XMS_ITS | Encounter Summary ---
Author Organization [facility] Address [address] [place] [address] Care Team Providers Care [address] [facility] Name Role Phone Abelardo Pappas MD Primary Care Provider [phone]- [phone] Encounter Details Date Type Department Care Team [...] Description 11/28/2025 2:00 PM EDT Office Visit [facility] [place] [facility] [address] [place] [address] 11/28/2025 3:00 PM EDT Office Visit [facility] [address] [place] [address] Justen Jaimes MD [address] [phone] 11/28/2025 3:15 PM EDT Clinical Support [facility] [address] [place] [address] documented as of this encounter Visit Diagnoses Not on filedocumented in this encounter Additional Health Concerns Assessment Noted Time PHQ-9 Depression Total Score: 0 12/28/19 1:21 PM EDT A fall risk assessment has been complete d for the patient 12/27/2024 1:20 PM EDT documented as of this encounter Care Teams [address] [facility] Relationship Specialty Start Date End Date Abelardo Pappas MD [address] [place] [address] PCP - General 06/04/25 documented as of this encounter
--- OUTSIDE RECORDS SUMMARY | 2025-07-07 14:45 | XMS_ITS | Clinical Summary ---
Author Organization [facility] Address [address] [place] [address] Care Team Providers Care Electrical Continuity Tester Name Role Phone Abelardo Pappas MD Primary Care Provider [phone] Allergies Active Allergy Reactions Criticality Noted Date [...] (one) time each day. Active HYDROcodone-newton taminophen ([place]) 5-325 MG tablet TAKE ONE TABLET BY [...] Department Care Team Description 06/28/2025 Orders Only [facility] at [address] [place] [address] Justen Jaimes MD Malignant neoplasm of prostate (CMS/HCC) 06/06/2025 2:30 PM EDT Infusion [facility] at [place] [address] [place] [address] Osteopenia of multiple sites (Primary Dx) 06/06/2025 2:15 PM EDT Office Visit [facility] at [address] [place] [address] Justen Jaimes MD Malignant neoplasm of prostate (CMS/HCC) (Primary Dx); Osteopenia of multiple sites 06/06/2025 Orders Only [facility] at [facility] [address] [place] [place] [address] Justen Jaimes MD 06/06/2025 Orders Only [facility] at [facility] [address] [place] [address] Justen Jaimes MD 06/06/2025 Travel 06/04/2025 Travel 06/01/2025 Orders Only [facility] at [facility] [address] [place] [address] Justen Jaimes MD 05/11/2025 Abstract [facility] [address] [place] [address] Justen Jaimes MD from Last 3 Months [...] 11/28/2025 2:00 PM EDT Office Visit [facility] at [facility] [address] [place] [address] 11/28/2025 3:00 PM EDT Office Visit [facility] at [facility] [address] [place] [address] Justen Jaimes MD [address] [address] 11/28/2025 3:15 PM EDT Clinical Support [facility] at [facility] [address] [place] [address] Health Maintenance Due Date Last Done Comments [facility]-Hepatitis C Screening 1945 [facility]-Medicare Annual Wellness (AWV) 1945 [facility]-Infant/Child/Adol SDOH Screenings 1945 [facility]-Obesity Intervention 1953 [facility]- SDOH Screenings 1965 [facility]-Adult SDOH Screenings 1965 [facility]-Pneumococcal Vaccine: 50 + Years (1 of 2 - PCV) 1966 [facility]-Zoster Vaccines (1 of 2) 1966 [facility]-DTaP,Tdap,and Td Vaccine s (1 - Tdap) 07/25/2010 07/24/2010 [id number] Vaccine (3 - Moderna risk series) 12/20/2020 [...] Priority Date/Time Associated Diagnosis Comments RBC MORPHOLOGY ([facility]) Routine 06/06/2025 1:50 PM EDT PROSTATE SPECIFIC [...] Platelet Morphology NORMAL 06/06/2025 4:06 PM EDT [facility] External Ovalocytes SLIGHT(A) 06/06/2025 4:06 PM EDT [facility] External Stomatocyte SLIGHT(A) 06/06/2025 4:06 PM EDT [facility] External Target Cells SLIGHT(A) 06/06/2025 4:06 PM EDT [facility] External Tear Drop Cells SLIGHT(A) 06/06/2025 4:06 PM EDT [facility] 06/06/2025 1:50 PM EDT 06/06/2025 2:21 PM EDT Justen Jaimes MD LAB BLOOD ORDERABLES Flaca ledezma Result [facility] [address] [place] [id number], * (ABNORMAL) CBC and Differential (06/06/2025 1:50 PM EDT) External WBC 5.5 3.8 - 10.8 10*3/uL 06/06/2025 4:06 PM EDT [facility] External Red Blood Cell (RBC) 3.67(L) 4.20 - 5.80 10*6/uL 06/06/2025 4:06 PM EDT [facility] External Hemoglobin 10.3(L) 14.0 - 18.0 g/dL 06/06/2025 4:06 PM EDT [facility] External Hematocrit 32.8(L) 40.0 - 52.0 % 06/06/2025 4:06 PM EDT [facility] External MCV 89 80 - 100 fL 06/06/2025 4:06 PM EDT [facility] External MCH 28 26 - 35 pg 06/06/2025 4:06 PM EDT [facility] External MCHC 31(L) 32 - 36 g/dL 06/06/2025 4:06 PM EDT [facility] External RDW 23.0(H) 11.0 - 15.0 % 06/06/2025 4:06 PM EDT [facility] External Mean Platelet Volume 7.3 6.2 - 10.5 fL 06/06/2025 4:06 PM EDT [facility] External Platelet Count (Plt) 326 150 - 400 10*3/uL 06/06/2025 4:06 PM EDT [facility] External Neutrophil# 3.5 1.6 - 8.4 10*3/uL 06/06/2025 4:06 PM EDT [facility] External Lymphocyte# 0.7 0.4 - 5.1 10*3/uL 06/06/2025 4:06 PM EDT [facility] External Absolute Monocyte (Abs [place]) 0.5 0.0 - 1.2 10*3/uL 06/06/2025 4:06 PM EDT [facility] External Eosinophils# 0.7 0.0 - 0.8 10*3/uL 06/06/2025 4:06 PM EDT [facility] External Baso# 0.1 0.0 - 0.3 10*3/uL 06/06/2025 4:06 PM EDT [facility] Comment:Smear reviewed to co nfirm cell morphology. External Neutrophils % 63.9 42.0 - 78.0 % 06/06/2025 4:06 PM EDT [facility] External Lymphocyte % 13.1 11.0 - 47.0 % 06/06/2025 4:06 PM EDT [facility] External Monocyte % 8.8 0.0 - 11.0 % 06/06/2025 4:06 PM EDT [facility] External Eosinophil% 13.2(H) 0.0 - 7.0 % 06/06/2025 4:06 PM EDT [facility] External Basophil % 1.0 0.0 - 3.0 % 06/06/2025 4:06 PM EDT [facility] External Nucleated RBC%-Auto 0.3 0.0 - 0.9 % 06/06/2025 4:06 PM EDT [facility] External Nucleated RBC Absolute 0.02 Not Estab. 10*3/uL 06/06/2025 4:06 PM EDT [facility] Blood Venous blood specimen / Unknown 06/06/2025 1:50 PM EDT 06/06/2025 2:21 PM EDT us Justen Jaimes MD LAB BLOOD ORDERABLES Flaca ledezma Result [facility] [address] [place] [address], * PSA, percent free, profile (06/06/2025 1:50 PM EDT) External Prostate Specific Antigen (PSA) 0.269 0.000 - 4.400 ng/mL 06/06/2025 3:01 PM EDT [facility] Comment: This test was performed using Estefania e801 Electrochemiluminescent method. The test method is based on WHO-standardized calibration. Values obtained from different assay methods or manufacturers may not be comparable. External Psa, Free 0.17 ng/mL 2024 3:01 PM EDT [facility] Comment: Test method is based on WHO-standardized calibration using the Estefania E801 analyzer. Free PSA results by different test procedures cannot be directly compared with one another. External Psa- % Free 63 % 05/17 3:01 PM EDT [facility] Comment: PSA ng/mL % FREE PSA Probability of Prostate Cancer % Less than 4.00 N/A 17% 4.0 - 10.0 0-10 56% 10-15 28% 15-20 20% 20-25 16% Greater than 25 8% Greater than 10.0 N/A 49% Blood Venous blood specimen / Unknown 06/06/2025 1:50 PM EDT 06/06/2025 2:21 PM EDT us Justen Jaimes MD LAB BLOOD ORDERABLES Flaca ledezma Result [facility] [address] [place] [address], * (ABNORMAL) Comprehensive Metabolic Panel, Plasma (06/06/2025 1:50 PM EDT) External Glucose 101(H) 74 - 100 mg/dL 06/06/2025 2:55 PM EDT [facility] External BUN 22(H) 6 - 20 mg/dL 06/06/2025 2:55 PM EDT [facility] External Creatinine Blood 0.97 0.70 - 1.20 mg/dL 06/06/2025 2:55 PM EDT [facility] External BUN/Creat Ratio 23(H) 10 - 20 (calc) 06/06/2025 2:55 PM EDT [facility] External Sodium 144 136 - 145 mmol/L 06/06/2025 2:55 PM EDT [facility] External Potassium 3.7 3.4 - 5.0 mmol/L 06/06/2025 2:55 PM EDT [facility] External Chloride 103 98 - 107 mmol/L 06/06/2025 2:55 PM EDT [facility] External Carbon Dioxide (CO2) 27 22 - 31 mmol/L 06/06/2025 2:55 PM T [facility] External Anion Gap (AG) 14 7 - 25 (calc) 06/06/2025 2:55 PM EDT [facility] External Calcium 10.0 8.6 - 10.2 mg/dL 06/06/2025 2:55 PM EDT [facility] External Total Protein 6.9 6.4 - 8.3 g/dL 06/06/2025 2:55 PM EDT [facility] External Albumin 4.4 3.5 - 5.2 g/dL 06/06/2025 2:55 PM EDT [facility] External Globulin 2.5 1.5 - 4.5 2:55 PM T [facility] External Albumin/Globulin Ratio 1.8 1.1 - 2.5 (calc) 06/06/2025 2:55 PM EDT [facility] External Bilirubin Total 0.3 0.1 - 1.0 mg/dL 06/06/2025 2:55 PM T [facility] Comment:NOTE: New reference range. External Alkaline Phosphatase 85 40 - 129 U/L 06/06/2025 2:55 PM EDT [facility] External AST (SGOT) 25 0 - 40 U/L 06/06/2025 2:55 PM EDT [facility] External ALT (SGPT) 32 0 - 41 U/L 06/06/2025 2:55 PM EDT [facility] External Estimated GFR 80 >=60 06/06/2025 2:55 PM EDT [facility] Comment: NOTE New calculation for GFR (CKD-EPI 2020) is formulated without race adjustment factors at the recommendation of the [employer] and [place] [employer]. This calculation has not been validated in women. For pediatric patients refer to https://www.kidney.org/professionals/KDOQI/gfr_calculatorPed Blood Venous blood specimen / Unknown 06/06/2025 1:50 PM EDT 06/06/2025 2:21 PM EDT Justen Jaimes MD LAB BLOOD ORDERABLES Flaca l Result [facility] [address] [place] [address], [place] [phone] * COMPLETE METABOLIC PROFILE (CMP) (06/04/2025 2:58 [...] Result from Last 3 Months [place] [address] [facility] Care Teams Electrical Continuity Tester Relationship Specialty Start Date End Date Abelardo Pappas MD [address] [place] [address] PCP - General 06/04/25
--- OUTSIDE RECORDS SUMMARY | 2025-07-07 14:45 | XMS_ITS | Clinical Summary ---
Author Organization [facility] Address [address] [place] [address] Care Team Providers Care Automatic Oven Operator Name Role Phone Provider, No Known Primary [...] - 04/29/2025 3:55 PM EDT Hospital Encounter [address] [place] [address] Serafin Villalpando MD Frandina, John L, MD [...] 27(H) <22 ng/L 04/29/2025 1:19 PM EDT [facility] Blood Venipuncture / Unknown 04/29/2025 12:34 PM EDT 04/29/2025 12:57 PM EDT Narrative [facility] - 04/29/2025 1:19 PM EDT [...] ORDERABLES Final Re sult Performing Organization Address [facility] Co de Phone Number [facility]
[address] [place] [address], * (ABNORMAL) POC Glucose Once (04/29/2025 11:16 AM EDT) Only the most recent of3 resultswithin the time period is included. Glucose 185(H) 70 - 130 mg/dL 04/29/2025 11:17 AM EDT [facility] Blood 04/29/2025 11:1 6 AM EDT 04/29/2025 11:17 AM EDT Clementina Moreno MD POINT OF CARE TEST ORDERABLES Final Result Performing Organization Address [facility] de Phone Number [facility]
[address] [place] [address], * (ABNORMAL) Protime-INR (04/29/2025 4:30 AM EDT) Only the most recent of2 resultswithin the time period is included. Protime 15.2 12.2 - 15.3 Seconds 04/29/2025 5:18 AM EDT [facility] INR 1.13(H) 0.89 - 1.12 04/29/2025 5:18 AM EDT [facility] Blood Venipuncture / Unknown 04/29/2025 4:30 AM EDT 04/29/2025 4:59 AM EDT Tristan Carr MD LAB BLOOD ORDERABLES Final Re sult Performing Organization Address [facility] [address] [facility] Co de Phone Number [facility]
[address] [place] [address], [place] [phone] * (ABNORMAL) CBC (No Diff) (04/29/2025 4:30 AM EDT) WBC 7.99 3.40 - 10.80 10*3/mm3 04/29/2025 5:10 AM EDT [facility] RBC 3.09(L) 4.14 - 5.80 10*6/mm3 04/29/2025 5:10 AM EDT [facility] Hemoglobin 8.7(L) 13.0 - 17.7 g/dL 04/29/2025 5:10 AM EDT [facility] Hematocrit 28.5(L) 37.5 - 51.0 % 04/29/2025 5:10 AM EDT [facility] MCV 92.2 79.0 - 97.0 fL 04/29/2025 5:10 AM EDT [facility] MCH 28.2 26.6 - 33.0 pg 04/29/2025 5:10 AM EDT [facility] MCHC 30.5(L) 31.5 - 35.7 g/dL 04/29/2025 5:10 AM EDT [facility] RDW 19.8(H) 12.3 - 15.4 % 04/29/2025 5:10 AM EDT [facility] RDW-SD 66.5(H) 37.0 - 54.0 fl 04/29/2025 5:10 AM EDT [facility] MPV 9.1 6.0 - 12.0 fL 04/29/2025 5:10 AM EDT [facility] Platelets 252 140 - 450 10*3/mm3 04/29/2025 5:10 AM EDT [facility] Blood Venipuncture / Unknown 04/29/2025 4:30 AM EDT 04/29/2025 4:59 AM EDT us Vaishali Priest CLIENT REPRESENTATIVE LAB BLOOD ORDERABLES Final Re sult [facility]
[address] [place] [address], * (ABNORMAL) Comprehensive Metabolic Panel (04/29/2025 4:30 AM EDT) Only the most recent of2 resultswithin the time period is included. Glucose 123(H) 65 - 99 mg/dL 04/29/2025 5:33 AM EDT [facility] BUN 18.7 8.0 - 23.0 mg/dL 04/29/2025 5:33 AM EDT [facility] Creatinine 0.86 0.76 - 1.27 mg/dL 04/29/2025 5:33 AM EDT [facility] Sodium 139 136 - 145 mmol/L 04/29/2025 5:33 AM EDT [facility] Potassium 3.7 3.5 - 5.2 mmol/L 04/29/2025 5:33 AM EDT [facility] Chloride 103 98 - 107 mmol/L 04/29/2025 5:33 AM EDT [facility] CO2 26.0 22.0 - 29.0 mmol/L 04/29/2025 5:33 AM EDT [facility] Calcium 9.1 8.6 - 10.5 mg/dL 04/29/2025 5:33 AM EDT [facility] Total Protein 6.0 6.0 - 8.5 g/dL 04/29/2025 5:33 AM EDT [facility] Albumin 3.9 3.5 - 5.2 g/dL 04/29/2025 5:33 AM EDT [facility] ALT (SGPT) 33 1 - 41 U/L 04/29/2025 5:33 AM EDT [facility] AST (SGOT) 28 1 - 40 U/L 04/29/2025 5:33 AM EDT [facility] Alkaline Phosphatase 70 39 - 117 U/L 04/29/2025 5:33 AM EDT [facility] Total Bilirubin 0.4 0.0 - 1.2 mg/dL 04/29/2025 5:33 AM EDT [facility] Globulin 2.1 gm/dL 04/29/2025 5:33 AM EDT [facility] Comment:Calculated Result A/G Ratio 1.9 g/dL 04/29/2025 5:33 AM EDT [facility] BUN/Creatinine Ratio 21.7 7.0 - 25.0 04/29/2025 5:33 AM EDT [facility] Anion Gap 10.0 5.0 - 15.0 mmol/L 04/29/2025 5:33 AM EDT [facility] eGFR 89.2 >60.0 mL/min/1.7 3 04/29/2025 5:33 AM EDT [facility] Blood Venipuncture / Unknown 04/29/2025 4:30 AM EDT 04/29/2025 4:59 AM EDT Narrative [facility] - 04/29/2025 5:33 AM EDT [...] race as a factor us Vaishali Priest CLIENT REPRESENTATIVE LAB BLOOD ORDERABLES Final Re sult [facility]
[address] [place] [address], * (ABNORMAL) Blood Gas, Venous With Co-Ox (04/28/2025 8:46 PM EDT) Site Nurse/Dr Johnson 04/28/2025 8:46 PM EDT [facility] THERAP[facility] pH, Venous 7.393 7.310 - 7.410 pH Units 04/28/2025 8:46 PM EDT [facility]ER[facility] pCO2, Venous 50.3 41.0 - 51.0 mm Hg 04/28/2025 8:46 PM EDT [facility] THER[facility] pO2, Venous 28.0 27.0 - 53.0 mm Hg 04/28/2025 8:46 PM EDT [facility] HCO3, Venous 30.6(H) 22.0 - 28.0 mmol/L 04/28/2025 8:46 PM EDT [facility]ER[facility] Base Excess, Venous 4.9(H) -2.0 - 2.0 mmol/L 04/28/2025 8:46 PM EDT [facility] Hemoglobin, Blood Gas 9.6(L) 13.5 - 17.5 g/dL 04/28/2025 8:46 PM EDT [facility] Oxyhemoglobin Venous 44.5 % 04/15 8:46 PM EDT [facility] Comment:84 Value below refer ence range Methemoglobin Venous 0.5 % 04/15 8:46 PM EDT [facility] Carboxyhemoglobin Venous 1.6 % 04/28/2025 8:46 PM EDT [facility] CO2 Content 32.2 22 - 33 mmol/L 04/28/2025 8:46 PM EDT [facility] THER[facility] Temperature 37.0 04/28/2025 8:46 PM EDT [facility] Barometric Pressure for Blood Gas 04/28/2025 8:46 PM EDT [facility] Comment:N/A Modality Nasal Cannula 04/28/2025 8:46 PM EDT [facility] THERAPY FIO2 24 % 04/28/2025 8:46 PM EDT [facility] Rate 0 Breaths/ minute 04/28/2025 8:46 PM EDT [facility] THER[facility] PIP 0 cmH2O 04/28/2025 8:46 PM EDT [facility] Comment:Meter: [id number] Valance Cutter: [id number] IPAP 0 04/28/2025 8:46 PM EDT [facility] THERAP[facility] EPAP 0 04/28/2025 8:46 PM EDT [facility]ER[facility] Venous Blood 04/28/2025 8:46 PM EDT 04/28/2025 8:46 PM EDT Tristna Carr MD LAB BLOOD ORDERABLES Final Re sult Performing Organization Address City/[facility] [address]/ZIP Co de Phone Number [facility] THERAPY
[address] * (ABNORMAL) High Sensitivity Troponin T 1Hr (04/28/2025 6:59 PM EDT) HS Troponin T 25(H) <22 ng/L 04/28/2025 7:30 PM EDT [facility] Troponin T Numeric Delta 10(HH) Abnormal if >/=3 ng/L 04/28/2025 7:30 PM EDT [facility] Blood Venipuncture / Unknown 04/28/2025 6:59 PM EDT 04/28/2025 7:02 PM EDT Narrative [facility] - 04/28/2025 7:30 PM EDT [...] ORDERABLES Final R esult Performing Organization Address City/[facility] [address]/ZIP Co de Phone Number [facility]
[address] [place] [address], * XR Chest 1 View (04/28/2025 6:16 PM EDT) Anatomical Region Laterality Modality Body N/A Radiographic Nubia ging 04/28/2025 6:25 PM EDT Impressions 04/28/2025 6:26 PM EDT Impression: No acute cardiopulmonary disease. Electronically Signed: Connor Hall MD 04/28/2025 6:26 PM EDT Workstation ID: [id number] Narrative 04/28/2025 6:26 PM EDT XR CHEST [...] MD 04/28/2025 6:26 PM EDT Workstation ID: [id number] Serafin Villalpando MD IM DIAGNOSTIC IMAGING ORDER [...] Hold for add-ons. 04/28/2025 5:45 PM EDT [facility] Comment:Auto resulted. Blood Line / Unknown 04/28/2025 5: 33 PM EDT 04/28/2025 5:38 PM EDT Serafin Villalpando MD LAB BLOOD ORDER ONLY Final R esult [facility]
[address] [place] [address], * Gold Top - RUST (04/28/2025 5:33 PM EDT) Extra Tube Hold for add-ons. 04/28/2025 5:45 PM EDT [facility] Comment:Auto resulted. Blood Line / Unknown 04/28/2025 5: 33 PM EDT 04/28/2025 5:38 PM EDT Serafin Villalpando MD LAB BLOOD ORDER ONLY Final R esult Performing Organization Address City/[facility] [address]/ZIP Co de Phone Number [facility]
[address] [place] [address], * Green Top (Gel) (04/28/2025 5:33 PM EDT) [facility] Extra Tube Hold for add-ons. 04/28/2025 5:45 PM EDT [facility] Comment:Auto resulted. Blood Line / Unknown 04/28/2025 5: 33 PM EDT 04/28/2025 5:38 PM EDT Serafin Villalpando MD LAB BLOOD ORDER ONLY Final R esult Performing Organization Address [facility] [address]/ZIP Co de Phone Number [facility]
[address] [place] [address], * (ABNORMAL) CBC Auto Differential (04/28/2025 5:33 PM EDT) [facility] WBC 5.30 3.40 - 10.80 10*3/mm3 04/28/2025 5:41 PM EDT [facility] RBC 3.60(L) 4.14 - 5.80 10*6/mm3 04/28/2025 5:41 PM EDT [facility] Hemoglobin 10.3(L) 13.0 - 17.7 g/dL 04/28/2025 5:41 PM EDT [facility] Hematocrit 33.3(L) 37.5 - 51.0 % 04/28/2025 5:41 PM EDT [facility] MCV 92.5 79.0 - 97.0 fL 04/28/2025 5:41 PM EDT [facility] MCH 28.6 26.6 - 33.0 pg 04/28/2025 5:41 PM EDT [facility] MCHC 30.9(L) 31.5 - 35.7 g/dL 04/28/2025 5:41 PM EDT [facility] RDW 19.7(H) 12.3 - 15.4 % 04/28/2025 5:41 PM [facility] RDW-SD 66.3(H) 37.0 - 54.0 fl 04/28/2025 5:41 PM [facility] MPV 8.5 6.0 - 12.0 fL 04/28/2025 5:41 PM [facility] Platelets 245 140 - 450 10*3/mm3 04/28/2025 5:41 PM [facility] Neutrophil % 72.1 42.7 - 76.0 % 04/28/2025 5:41 PM [facility] Lymphocyte % 10.4(L) 19.6 - 45.3 % 04/28/2025 5:41 PM [facility] Monocyte % 7.5 5.0 - 12.0 % 04/28/2025 5:41 PM [facility] Eosinophil % 7.9(H) 0.3 - 6.2 % 04/28/2025 5:41 PM [facility] Basophil % 0.8 0.0 - 1.5 % 04/28/2025 5:41 PM [facility] Immature Grans % 1.3(H) 0.0 - 0.5 % 04/28/2025 5:41 PM [facility] Neutrophils, Absolute 3.82 1.70 - 7.00 10*3/mm3 04/28/2025 5:41 PM [facility] Lymphocytes, Absolute 0.55(L) 0.70 - 3.10 10*3/mm3 04/28/2025 5:41 PM [facility] Monocytes, Absolute 0.40 0.10 - 0.90 10*3/mm3 04/28/2025 5:41 PM [facility] Eosinophils, Absolute 0.42(H) 0.00 - 0.40 10*3/mm3 04/28/2025 5:41 PM [facility] Basophils, Absolute 0.04 0.00 - 0.20 10*3/mm3 04/28/2025 5:41 PM EDT [facility] Immature Grans, Absolute 0.07(H) 0.00 - 0.05 10*3/mm3 04/28/2025 5:41 PM EDT [facility] nRBC 0.0 0.0 - 0.2 /100 WBC 04/28/2025 5:41 PM EDT [facility] Blood Line / Unknown 04/28/2025 5: 33 PM EDT 04/28/2025 5:38 PM EDT us Serafin Villalpando MD LAB BLOOD ORDERABLES Final R esult [facility]
[address] [place] [address], * Lavender Top (04/28/2025 5:33 PM EDT) Extra Tube hold for add-on 04/28/2025 5:45 PM EDT [facility] Comment:Auto resulted Blood Line / Unknown 04/28/2025 5: 33 PM EDT 04/28/2025 5:38 PM EDT us Serafin Villalpando MD LAB BLOOD ORDER ONLY Final R esult [facility]
[address] [place] [address], * Light Blue Top (04/28/2025 5:33 PM EDT) Extra Tube Hold for add-ons. 04/28/2025 5:45 PM EDT [facility] Comment:Auto resulted Blood Line / Unknown 04/28/2025 5: 33 PM EDT 04/28/2025 5:38 PM EDT us Serafin Villalpando MD LAB BLOOD ORDER ONLY Final R esult Performing Organization Address [facility] [address]/ZIP Co de Phone Number [facility]
[address] [place] [address], * BNP (04/28/2025 5:33 PM EDT) proBNP 420.5 0.0 - 1,800.0 pg/mL 04/28/2025 6:03 PM EDT [facility] Blood Line / Unknown 04/28/2025 5: 33 PM EDT 04/28/2025 5:38 PM EDT Narrative [facility] - 04/28/2025 6:03 PM EDT [...] ORDERABLES Final R esult Performing Organization Address [facility] [address]/[facility] Co de Phone Number [facility]
[address] [place] [address], * Telemetry Scan (04/28/2025 5:31 PM EDT) Only the most recent of2 resultswithin the time period is included. [facility] Onbase ECG ORDERABLES Final Result from Last 3 Months Insurance [facility] SUP MEDICARE A & B Advance Directives * CPR (Attempt to Resuscitate) (Latest Code Status on File) Date Activated Date Inactivated Comments 04/28/2025 9:40 PM 04/29/2025 6:01 PM Question Answer Comments Code Status (Patient has no pulse and is not breathing): CPR (Attempt to Resuscitate) Medical Interventions (Patie nt has pulse or is breathing): Full Support Care Teams Automatic Oven Operator Relationship Specialty Start Date End Date Provider, No Known [facility] [place] [address] PCP - General 04/28/25
--- OUTSIDE RECORDS SUMMARY | 2025-07-07 14:45 | XMS_ITS | Encounter Summary ---
Author Organization [facility] Address [address] [place] [address] Care Team Providers Care Hay Rake Operator Name Role Phone YosiTristan centeno Primary Care Provider [phone] Encounter Details Date Type Department Care Team (Late st Contact Info) Description 05/11/2025 Abstract [facility] [address] [place] [address] Justen Jaimes MD [address] [phone] Social History Tobacco Use Types Packs/Day Years [...] Description 11/28/2025 2:00 PM EDT Office Visit [facility] [address] [place] [phone] 11/28/2025 3:00 PM EDT Office Visit [facility] [address] [place] [phone] Justen Jaimes MD [address] [phone] 11/28/2025 3:15 PM EDT Clinical Support [facility] [address] [place] [address] documented as of this encounter Visit Diagnoses Not on filedocumented in this encounter Additional Health Concerns Assessment Noted Time PHQ-9 Depression Total Score: 0 12/28/19 1:21 PM EDT A fall risk assessment has been complete d for the patient 12/27/2024 1:20 PM EDT documented as of this encounter Care Teams Hay Rake Operator Relationship Specialty Start Date End Date Tristan Billings DO [address] [place] [address] PCP - General 09/13/24 06/03/25 documented as of this encounter
--- OUTSIDE RECORDS SUMMARY | 2025-07-07 14:45 | XMS_ITS | Encounter Summary ---
Author Organization [facility] Address [address] [place] [address] Care Team Providers Care Transformer Inspector Name Role Phone Abelardo Pappas MD Primary Care Provider [phone] Encounter Details Date Type Department Care Team [...] EDT Office Visit [facility] [address] [place] [phone] 11/28/2025 3:00 PM EDT Office Visit [facility] [address] [place] [phone] Justen Jaimes MD [address] [phone] 11/28/2025 3:15 PM EDT Clinical Support [facility] [address] [place] [phone] documented as of this encounter Visit Diagnoses Not on filedocumented in this encounter Additional Health Concerns Assessment Noted Time PHQ-9 Depression Total Score: 0 12/28/19 1:21 PM EDT A fall risk assessment has been complete d for the patient 06/06/2025 3:46 PM EDT documented as of this encounter Care Teams Transformer Inspector Relationship Specialty Start Date End Date Abelardo Pappas MD [address] [place] [address] PCP - General 06/04/25 documented as of this encounter
--- OUTSIDE RECORDS SUMMARY | 2025-07-07 14:45 | XMS_ITS | Data Portability ---
Author Organization [facility] ADMIN Address [address] [place] [id number] Care Team Providers Care Roofing Superintendent Name Role Phone MAXIMILIAN TORRES Primary Care Provider [phone] AURELIA DEL CASTILLO Actuary Manager [phone] FADY LAMB Urologist EMERY PIEDRA Thoracic Surgeon GAYLA SANCHEZ Primary Care Provider Assessment No assessment recorded. Plan of Treatment Reminders Order Date Submit Date Provider Last Modified By Organization Details Last Modified Time Details Appointments None recorded. Lab CBC w/ auto diff 2024 025 [facility], [address] [facility] [facility], [place], [address], 5 14:21:17 hepatic function panel, serum 2024 025 [id number] [facility], [address] [place], [address], 5 19:55:37 CBC w/ auto diff 2024 025 [facility], [address] [facility], [place], [address], 5 14:27:12 hepatic function panel, serum 2024 025 [email or web address] [id number] [facility], [address] , [place], [address], 5 13:17:52 CBC w/ auto diff 2023 [facility], [address] , [place], [address], 4 11:59:13 hepatic function panel, serum 2023 [facility], [address] , [place], [address], 4 11:55:46 CBC w/ auto diff 2023 [facility], [address] , [place], [address], 4 10:11:21 hepatic function panel, serum 2023 [facility], [address] , [place], [address], 10:49:19 Referral None recorded. Procedures None recorded. Surgeries None recorded. Imaging None recorded. Medication Orders isoniazid 300 mg tablet 2023 [employer] [facility], [facility] [place], [address], 10:48:31 Patient TargetsNo targets recorded. Patient InstructionsNo instructions recorded. Reason for Referral None Reported. Results Created Date Observation Date Name Description Value Unit Range Abnormal Flag Note LastModifiedBy Organization Detail LastModifiedTime 07/23/2007/23/2024 CBC AUTO W DIFF WBC 11.5 K/uL 4.0-10 .5 high Not Available [facility] ([facility]) [address] , [place], [address], 07/23/2024 10:11:21 07/23/20 24 07/23/2024 CBC AUTO W DIFF RBC 3.4 M/mm3 4.7-6. 1 low Not Available [facility] ([facility]) [address], [place], [address], 07/23/2024 10:11:21 07/23/20 24 07/23/2024 CBC AUTO W DIFF HGB 11.0 gm/dL 13.5-1 8.0 low Not Available [facility] ([facility]) [address], [place], [address], 07/23/2024 10:11:21 07/23/20 24 07/23/2024 CBC AUTO W DIFF HCT 34.7 % 42.0-5 2.0 low Not Available [facility] ([facility]) [address], [place], [address], 07/23/2024 10:11:21 07/23/20 24 07/23/2024 CBC AUTO W DIFF MCV 100.9 fL 78-100 high Not Available [facility] ([facility]) [address], [place], [address], 07/23/2024 10:11:21 07/23/20 24 07/23/2024 CBC AUTO W DIFF MCH 32.0 pg 27-31 high Not Available [facility] ([facility]) [address], [place], [address], 07/23/2024 10:11:21 07/23/20 24 07/23/2024 CBC AUTO W DIFF MCHC 31.7 g/dL 32-36 low Not Available [facility] ([facility]) [address] , [place], [address], 07/23/2024 10:11:21 07/23/20 24 07/23/2024 CBC AUTO W DIFF RDW 16.3 % 11.5-1 4.0 high Not Available [facility] ([facility]) [address] , [place], [address], 07/23/2024 10:11:21 07/23/20 24 07/23/2024 CBC AUTO W DIFF platelet count 310 K/uL 150-45 0 Not Available [facility] ([facility]) [address] , [place], [address], 07/23/2024 10:11:21 07/23/20 24 07/23/2024 CBC AUTO W DIFF MPV 9.7 fL 6-9.5 high Not Available [facility] ([facility]) [address] , [place], [address], 07/23/2024 10:11:21 07/23/20 24 07/23/2024 CBC AUTO W DIFF neutrophil% 80.6 % 43-65 high Not Available [facility] ([facility]) [address], [place], [address], 07/23/2024 10:11:21 07/23/20 24 07/23/2024 CBC AUTO W DIFF lymphocyte% 10.4 % 20.5-4 5.5 low Not Available [facility] ([facility]) [address], [place], [address], 07/23/2024 10:11:21 07/23/20 24 07/23/2024 CBC AUTO W DIFF monocyte% 6.9 % 5.5-11 .7 Not Available [facility] ([facility]) [address] [place], [address], 07/23/2024 10:11:21 07/23/20 24 07/23/2024 CBC AUTO W DIFF eosinophil% 1.0 % 0.9-2. 9 Not Available [facility] ([facility]) [address] [place], [address], 07/23/2024 10:11:21 07/23/20 24 07/23/2024 CBC AUTO W DIFF basophil% 0.4 % 0.2-1. 0 Not Available [facility] ([facility]) [address] [facility], [address], 07/23/2024 10:11:21 07/23/20 24 07/23/2024 CBC AUTO W DIFF immature granulocytes % 0.7 % 0.0-0. 8 Not Available [facility] ([facility]) [address], [place], [address], 07/23/2024 10:11:21 07/23/20 24 07/23/2024 CBC AUTO W DIFF nucleated red blood cells % 0.3 % Not Available [facility] ([facility]) [address] [facility], [place], [address], 07/23/2024 10:11:21 07/23/20 24 07/23/2024 CBC AUTO W DIFF neutrophil# 9.3 K/uL 2.2-4. 8 high Not Available [facility] ([facility]) [address] [facility], [place], [address], 07/23/2024 10:11:21 07/23/20 24 07/23/2024 CBC AUTO W DIFF lymphocyte# 1.2 cell/ mcL 1.3-2. 9 low Not Available [facility] ([facility]) [address], [place], [address], 07/23/2024 10:11:21 07/23/20 24 07/23/2024 CBC AUTO W DIFF monocyte# 0.8 cell/ mcL 0.3-0. 8 Not Available [facility] ([facility]) [address], [place], [address], 07/23/2024 10:11:21 07/23/20 24 07/23/2024 CBC AUTO W DIFF eosinophil# 0.1 cell/ mcL 0-0.2 Not Available [facility] ([facility]) [address] [place], [address], 07/23/2024 10:11:21 07/23/20 24 07/23/2024 CBC AUTO W DIFF basophil# 0.1 cell/ mcL 0.0-1. 0 Not Available [facility] ([facility]) [address] , [place], [address], 07/23/2024 10:11:21 07/23/20 24 07/23/2024 CBC AUTO W DIFF immature gramulocytes # 0.08 K/uL Not Available [facility] ([facility]) [address] , [place], [address], 07/23/2024 10:11:21 07/23/20 24 07/23/2024 CBC AUTO W DIFF nucleated red blood cells # 0.03 K/uL Not Available [facility] ([facility]) [address] , [place], [address], 07/23/2024 10:11:21 07/23/20 24 07/23/2024 CBC AUTO W DIFF manual differential NO Not Available [facility] ([facility]) [address] , [place], [address], 07/23/2024 10:11:21 07/23/20 24 07/23/2024 HEPAT IC FUNCT IONAL PANEL total protein 7.3 g/dL 6.4-8. 2 Not Available [facility] ([facility]) [address] , [place], [address], 07/23/2024 10:22:19 07/23/20 24 07/23/2024 HEPAT IC FUNCT IONAL PANEL albumin 3.6 g/dL 3.4-5. 0 Not Available [facility] ([facility]) [address] , [place], [address], 07/23/2024 10:22:19 07/23/20 24 07/23/2024 HEPAT IC FUNCT IONAL PANEL bilirubin direct 0.1 O.oo-0 .30 Not Available [facility] ([facility]) [address], [place], [address], 07/23/2024 10:22:19 07/23/20 24 07/23/2024 HEPAT IC FUNCT IONAL PANEL bilirubin total 0.40 mg/dL 0.10-1 .00 Not Available [facility] ([facility]) [address] , [place], [address], 07/23/2024 10:22:19 07/23/20 24 07/23/2024 HEPAT IC FUNCT IONAL PANEL bilirubin indirect 0.30 Not Available [facility] ([facility]) [address] , [place], [address], 07/23/2024 10:22:19 07/23/20 24 07/23/2024 HEPAT IC FUNCT IONAL PANEL AST (SGOT) 17 U/L 0-37 Not Available [facility] ([facility]) [address] , [place], [address], 07/23/2024 10:22:19 07/23/20 24 07/23/2024 HEPAT IC FUNCT IONAL PANEL ALT (SGPT) 45 U/L 0-65 Not Available [facility] ([facility]) [address] , [place], [address], 07/23/2024 10:22:19 07/23/20 24 07/23/2024 HEPAT IC FUNCT IONAL PANEL alk phosphatase 49 U/L 46-116 Not Available [facility] ([facility]) [address] , [place], [address], 07/23/2024 10:22:19 08/20/20 24 08/20/2024 HEPAT IC FUNCT IONAL PANEL total protein 7.4 g/dL 6.4-8. 2 Not Available [facility] ([facility]) [address], [place], [address], 08/20/2024 11:54:21 08/20/20 24 08/20/2024 HEPAT IC FUNCT IONAL PANEL albumin 4.1 g/dL 3.4-5. 0 Not Available [facility] ([facility]) [address] , [place], [address], 08/20/2024 11:54:21 08/20/20 24 08/20/2024 HEPAT IC FUNCT IONAL PANEL bilirubin direct 0.1 O.oo-0 .30 Not Available [facility] ([facility]) [address] , [place], [address], 08/20/2024 11:54:21 08/20/20 24 08/20/2024 HEPAT IC FUNCT IONAL PANEL bilirubin total 0.50 mg/dL 0.10-1 .00 Not Available [facility] ([facility]) [address] , [place], [address], 08/20/2024 11:54:21 08/20/20 24 08/20/2024 HEPAT IC FUNCT IONAL PANEL bilirubin indirect 0.40 Not Available [facility] ([facility]) [address] , [place], [address], 08/20/2024 11:54:21 08/20/20 24 08/20/2024 HEPAT IC FUNCT IONAL PANEL AST (SGOT) 20 U/L 0-37 Not Available [facility] ([facility]) [address] , [place], [address], 08/20/2024 11:54:21 08/20/20 24 08/20/2024 HEPAT IC FUNCT IONAL PANEL ALT (SGPT) 64 U/L 0-65 Not Available [facility] ([facility]) [address] , [place], [address], 08/20/2024 11:54:21 08/20/20 24 08/20/2024 HEPAT IC FUNCT IONAL PANEL alk phosphatase 53 U/L 46-116 Not Available [facility] ([facility]) [address], [place], [address], 08/20/2024 11:54:21 10/21/19 25 10/21/2024 HEPAT IC FUNCT IONAL PANEL total protein 6.9 g/dL 6.4-8. 2 Not Available [facility] ([facility]) [address], [place], [address], 10/21/2024 11:57:13 10/21/19 25 10/21/2024 HEPAT IC FUNCT IONAL PANEL albumin 3.6 g/dL 3.4-5. 0 Not Available [facility] ([facility]) [address], [place], [address], 10/21/2024 11:57:13 10/21/19 25 10/21/2024 HEPAT IC FUNCT IONAL PANEL bilirubin direct 0.2 O.oo-0 .30 Not Available [facility] ([facility]) [address], [place], [address], 10/21/2024 11:57:13 10/21/19 25 10/21/2024 HEPAT IC FUNCT IONAL PANEL bilirubin total 0.50 mg/dL 0.10-1 .00 Not Available [facility] ([facility]) [address], [place], [address], 10/21/2024 11:57:13 10/21/19 25 10/21/2024 HEPAT IC FUNCT IONAL PANEL bilirubin indirect 0.30 Not Available [facility] ([facility]) [address], [place], [address], 10/21/2024 11:57:13 10/21/19 25 10/21/2024 HEPAT IC FUNCT IONAL PANEL AST (SGOT) 23 U/L 0-37 Not Available [facility] ([facility]) [address], [place], [address], 10/21/2024 11:57:13 10/21/19 25 10/21/2024 HEPAT IC FUNCT IONAL PANEL ALT (SGPT) 59 U/L 0-65 Not Available [facility] ([facility]) [address] , [place], [address], 10/21/2024 11:57:13 10/21/19 25 10/21/2024 HEPAT IC FUNCT IONAL PANEL alk phosphatase 55 U/L 46-116 Not Available [facility] ([facility]) [address] , [place], [address], 10/21/2024 11:57:13 10/21/19 25 10/21/2024 CBC AUTO W DIFF WBC 5.0 K/uL 4.0-10 .5 Not Available [facility] ([facility]) [address], [place], [address], 10/21/2024 14:27:12 10/21/19 25 10/21/2024 CBC AUTO W DIFF RBC 3.6 M/mm3 4.7-6. 1 low Not Available [facility] ([facility]) [address], [place], [address], 10/21/2024 14:27:12 10/21/19 25 10/21/2024 CBC AUTO W DIFF HGB 9.5 gm/dL 13.5-1 8.0 low Not Available [facility] ([facility]) [address], [place], [address], 10/21/2024 14:27:12 10/21/19 25 10/21/2024 CBC AUTO W DIFF HCT 32.8 % 42.0-5 2.0 low Not Available [facility] ([facility]) [address], [place], [address], 10/21/2024 14:27:12 10/21/19 25 10/21/2024 CBC AUTO W DIFF MCV 90.1 fL 78-100 Not Available [facility] ([facility]) [address], [place], [address], 10/21/2024 14:27:12 10/21/19 25 10/21/2024 CBC AUTO W DIFF MCH 26.1 pg 27-31 low Not Available [facility] ([facility]) [address] , [place], [address], 10/21/2024 14:27:12 10/21/19 25 10/21/2024 CBC AUTO W DIFF MCHC 29.0 g/dL 32-36 low Not Available [facility] ([facility]) [address] , [place], [address], 10/21/2024 14:27:12 10/21/19 25 10/21/2024 CBC AUTO W DIFF RDW 19.9 % 11.5-1 4.0 high Not Available [facility] ([facility]) [address] , [place], [address], 10/21/2024 14:27:12 10/21/19 25 10/21/2024 CBC AUTO W DIFF platelet count 237 K/uL 150-45 0 Not Available [facility] ([facility]) [address] , [place], [address], 10/21/2024 14:27:12 10/21/19 25 10/21/2024 CBC AUTO W DIFF MPV 10.1 fL 6-9.5 high Not Available [facility] ([facility]) [address] , [place], [address], 10/21/2024 14:27:12 10/21/19 25 10/21/2024 CBC AUTO W DIFF neutrophil% 87.2 % 43-65 high Not Available [facility] ([facility]) [address] , [place], [address], 10/21/2024 14:27:12 10/21/19 25 10/21/2024 CBC AUTO W DIFF lymphocyte% 6.4 % 20.5-4 5.5 low Not Available [facility] ([facility]) [address] [place], [address], 10/21/2024 14:27:12 10/21/19 25 10/21/2024 CBC AUTO W DIFF monocyte% 4.6 % 5.5-11 .7 low Not Available [facility] ([facility]) [address] [place], [address], 10/21/2024 14:27:12 10/21/19 25 10/21/2024 CBC AUTO W DIFF eosinophil% 0.2 % 0.9-2. 9 low Not Available [facility] ([facility]) [address] [place], [address], 10/21/2024 14:27:12 10/21/19 25 10/21/2024 CBC AUTO W DIFF basophil% 0.6 % 0.2-1. 0 Not Available [facility] ([facility]) [address] [place], [address], 10/21/2024 14:27:12 10/21/19 25 10/21/2024 CBC AUTO W DIFF immature granulocytes % 1.0 % 0.0-0. 8 high Not Available [facility] ([facility]) [address] [place], [address], 10/21/2024 14:27:12 10/21/19 25 10/21/2024 CBC AUTO W DIFF nucleated red blood cells % 0.6 % Not Available [facility] ([facility]) [address] [place], [address], 10/21/2024 14:27:12 10/21/19 25 10/21/2024 CBC AUTO W DIFF neutrophil# 4.4 K/uL 2.2-4. 8 Not Available [facility] ([facility]) [address] [place], [address], 10/21/2024 14:27:12 10/21/19 25 10/21/2024 CBC AUTO W DIFF lymphocyte# 0.3 cell/ mcL 1.3-2. 9 low Not Available [facility] ([facility]) [address] [facility], [place], [address], 10/21/2024 14:27:12 10/21/19 25 10/21/2024 CBC AUTO W DIFF monocyte# 0.2 cell/ mcL 0.3-0. 8 low Not Available [facility] ([facility]) [address] [facility], [place], [address], 10/21/2024 14:27:12 10/21/19 25 10/21/2024 CBC AUTO W DIFF eosinophil# 0.0 cell/ mcL 0-0.2 Not Available [facility] ([facility]) [address] [facility], [place], [address], 10/21/2024 14:27:12 10/21/19 25 10/21/2024 CBC AUTO W DIFF basophil# 0.0 cell/ mcL 0.0-1. 0 Not Available [facility] ([facility]) [address] [facility], [place], [address], 10/21/2024 14:27:12 10/21/19 25 10/21/2024 CBC AUTO W DIFF immature gramulocytes # 0.05 K/uL Not Available [facility] ([facility]) [address] [facility] [facility], [place], [address], 10/21/2024 14:27:12 10/21/19 25 10/21/2024 CBC AUTO W DIFF nucleated red blood cells # 0.03 K/uL Not Available [facility] ([facility]) [address] [facility] [facility], [place], [address], 10/21/2024 14:27:12 10/21/19 25 10/21/2024 CBC AUTO W DIFF manual differential NO Not Available [facility] ([facility]) [address], [place], [address], 10/21/2024 14:27:12 10/21/19 25 10/21/2024 CBC AUTO W DIFF platelet estimate ADEQUA TE adequa te Not Available [facility] ([facility]) [address], [place], [address], 10/21/2024 14:27:12 10/21/19 25 10/21/2024 CBC AUTO W DIFF platelet morphology NORMAL normal Not Available [facility] ([facility]) [address] , [place], [address], 10/21/2024 14:27:12 10/21/19 25 10/21/2024 CBC AUTO W DIFF RBC morphology NORMAL normal Not Available [facility] ([facility]) [address] , [place], [address], 10/21/2024 14:27:12 10/21/19 25 10/21/2024 CBC AUTO W DIFF anisocytosis SLIGHT none seen Not Available [facility] ([facility]) [address] , [place], [address], 10/21/2024 14:27:12 10/21/19 25 10/21/2024 CBC AUTO W DIFF poikilocytos is SLIGHT none seen Not Available [facility] ([facility]) [address] [place], [address], 10/21/2024 14:27:12 12/22/19 25 12/21/2024 CBC AUTO W DIFF WBC 6.1 K/uL 4.0-10 .5 Not Available [facility] ([facility]) [address] [place], [address], 12/21/2024 14:21:17 12/22/19 25 12/21/2024 CBC AUTO W DIFF RBC 3.6 M/mm3 4.7-6. 1 low Not Available [facility] ([facility]) [address] , [place], [address], 12/21/2024 14:21:17 12/22/19 25 12/21/2024 CBC AUTO W DIFF HGB 10.1 gm/dL 13.5-1 8.0 low Not Available [facility] ([facility]) [address] , [place], [address], 12/21/2024 14:21:17 12/22/19 25 12/21/2024 CBC AUTO W DIFF HCT 33.0 % 42.0-5 2.0 low Not Available [facility] ([facility]) [address] , [place], [address], 12/21/2024 14:21:17 12/22/19 25 12/21/2024 CBC AUTO W DIFF MCV 90.7 fL 78-100 Not Available [facility] ([facility]) [address] , [place], [address], 12/21/2024 14:21:17 12/22/19 25 12/21/2024 CBC AUTO W DIFF MCH 27.7 pg 27-31 Not Available [facility] ([facility]) [address] , [place], [address], 12/21/2024 14:21:17 12/22/19 25 12/21/2024 CBC AUTO W DIFF MCHC 30.6 g/dL 32-36 low Not Available [facility] ([facility]) [address] , [place], [address], 12/21/2024 14:21:17 12/22/19 25 12/21/2024 CBC AUTO W DIFF RDW 22.9 % 11.5-1 4.0 high Not Available [facility] ([facility]) [address], [place], [address], 12/21/2024 14:21:17 12/22/19 25 12/21/2024 CBC AUTO W DIFF platelet count 275 K/uL 150-45 0 Not Available [facility] ([facility]) [address] , [place], [address], 12/21/2024 14:21:17 12/22/19 25 12/21/2024 CBC AUTO W DIFF MPV 9.1 fL 6-9.5 Not Available [facility] ([facility]) [address] , [place], [address], 12/21/2024 14:21:17 12/22/19 25 12/21/2024 CBC AUTO W DIFF neutrophil% 80.2 % 43-65 high Not Available [facility] ([facility]) [address] , [place], [address], 12/21/2024 14:21:17 12/22/19 25 12/21/2024 CBC AUTO W DIFF lymphocyte% 8.4 % 20.5-4 5.5 low Not Available [facility] ([facility]) [address] , [place], [address], 12/21/2024 14:21:17 12/22/19 25 12/21/2024 CBC AUTO W DIFF monocyte% 9.4 % 5.5-11 .7 Not Available [facility] ([facility]) [address] [place], [address], 12/21/2024 14:21:17 12/22/19 25 12/21/2024 CBC AUTO W DIFF eosinophil% 1.0 % 0.9-2. 9 Not Available [facility] ([facility]) [address] [place], [address], 12/21/2024 14:21:17 12/22/19 25 12/21/2024 CBC AUTO W DIFF basophil% 0.5 % 0.2-1. 0 Not Available [facility] ([facility]) [address], [place], [address], 12/21/2024 14:21:17 12/22/19 25 12/21/2024 CBC AUTO W DIFF immature granulocytes % 0.5 % 0.0-0. 8 Not Available [facility] ([facility]) [address] [facility], [place], [address], 12/21/2024 14:21:17 12/22/19 25 12/21/2024 CBC AUTO W DIFF nucleated red blood cells % 0.0 % Not Available [facility] ([facility]) [address] [facility], [place], [address], 12/21/2024 14:21:17 12/22/19 25 12/21/2024 CBC AUTO W DIFF neutrophil# 4.9 K/uL 2.2-4. 8 high Not Available [facility] ([facility]) [address] [facility], [place], [address], 12/21/2024 14:21:17 12/22/19 25 12/21/2024 CBC AUTO W DIFF lymphocyte# 0.5 cell/ mcL 1.3-2. 9 low Not Available [facility] ([facility]) [address] [place], [address], 12/21/2024 14:21:17 12/22/19 25 12/21/2024 CBC AUTO W DIFF monocyte# 0.6 cell/ mcL 0.3-0. 8 Not Available [facility] ([facility]) [address] [facility], [place], [address], 12/21/2024 14:21:17 12/22/19 25 12/21/2024 CBC AUTO W DIFF eosinophil# 0.1 cell/ mcL 0-0.2 Not Available [facility] ([facility]) [address], [place], [address], 12/21/2024 14:21:17 12/22/19 25 12/21/2024 CBC AUTO W DIFF basophil# 0.0 cell/ mcL 0.0-1. 0 Not Available [facility] ([facility]) [address], [place], [address], 12/21/2024 14:21:17 12/22/19 25 12/21/2024 CBC AUTO W DIFF immature gramulocytes # 0.03 K/uL Not Available [facility] ([facility]) [address], [place], [address], 12/21/2024 14:21:17 12/22/19 25 12/21/2024 CBC AUTO W DIFF nucleated red blood cells # 0.00 K/uL Not Available [facility] ([facility]) [address], [place], [address], 12/21/2024 14:21:17 12/22/19 25 12/21/2024 CBC AUTO W DIFF manual differential NO Not Available [facility] - [facility] ([facility]) [address], [place], [address], 12/21/2024 14:21:17 12/22/19 25 12/21/2024 HEPAT IC FUNCT IONAL PANEL total protein 7.2 g/dL 6.4-8. 2 Not Available [facility] ([facility]) [address], [place], [address], 12/21/2024 14:51:30 12/22/19 25 12/21/2024 HEPAT IC FUNCT IONAL PANEL albumin 4.1 g/dL 3.4-5. 0 Not Available [facility] ([facility]) [address], [place], [address], 12/21/2024 14:51:30 12/22/19 25 12/21/2024 HEPAT IC FUNCT IONAL PANEL bilirubin direct 0.0 O.oo-0 .30 Not Available [facility] ([facility]) [address] , [place], [address], 12/21/2024 14:51:30 12/22/19 25 12/21/2024 HEPAT IC FUNCT IONAL PANEL bilirubin total 0.40 mg/dL 0.10-1 .00 Not Available [facility] ([facility]) [address] , [place], [address], 12/21/2024 14:51:30 12/22/19 25 12/21/2024 HEPAT IC FUNCT IONAL PANEL bilirubin indirect 0.40 Not Available [facility] ([facility]) [address], [place], [address], 12/21/2024 14:51:30 12/22/19 25 12/21/2024 HEPAT IC FUNCT IONAL PANEL AST (SGOT) 32 U/L 0-37 Not Available [facility] ([facility]) [address], [place], [address], 12/21/2024 14:51:30 12/22/19 25 12/21/2024 HEPAT IC FUNCT IONAL PANEL ALT (SGPT) 50 U/L 0-65 Not Available [facility] ([facility]) [address], [place], [address], 12/21/2024 14:51:30 12/22/19 25 12/21/2024 HEPAT IC FUNCT IONAL PANEL alk phosphatase 122 U/L 46-116 high Not Available [facility] ([facility]) [address], [place], [address], 12/21/2024 14:51:30 Result Notes None recorded. 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 Procedures Surgical History Date Name Laterality Status Provider Name and Address Organization Details Recorded Time 09/15/18 98 Cardiovascular Surgery completed Ben Torres [place] [facility] [place] 08/05/2022 13:01:39 09/15/18 98 Other completed Ben Torres [place] [facility] [place] 08/05/2022 13:01:39 procedure on knee completed Ben Torres [place] [facility] [place] 08/05/2022 13:05:30 Imaging Results None recorded. Procedure [...] Updated DateTime 5 187.96 cm 26.1 kg/m2 11108.2 5 g 98.2 [degF] 67 /min 92 % 92 % 94/59 mm[Hg] Preeti BEVERLY [facility] [place] [facility] [place] 5 10:40:12 Date Recorded Body height Heart rate Oxygen saturation Oxygen saturation in Arterial blood by Pulse oximetry Heart rate Body temperature Body mass index (BMI) Body weight Systolic And Diastolic Provider Name and Address Organization Details Last Updated DateTime 5 187.96 cm 79 /min 94 % 94 % 79 /min 98 [degF] 25.5 kg/m2 32764.8 8 g 122/67 mm[Hg] Tammy Theodore [facility] & [place] 5 13:43:20 Date Recorded Body height Heart rate Oxygen saturation Oxygen saturation in Arterial blood by Pulse oximetry Body temperature Body mass index (BMI) Body weight Systolic And Diastolic Provider Name and Address Organization Details Last Updated DateTime 5 187.96 cm 58 /min 95 % 95 % 98.9 [degF] 25.3 kg/m2 27933.1 3 g 116/69 mm[Hg] Magnus BEVERLY [facility] & [place] 5 11:10:14 Date Recorded Body height Oxygen saturation Oxygen saturation in Arterial blood by Pulse oximetry Heart rate Systolic And Diastolic Provider Name and Address Organization Details Last Updated DateTime 4 187.96 cm 91 % 91 % 56 /min 133/74 mm[Hg] Preeti GuevarappardBrian Ranulfo BEVERLY [facility] & [place] 4 09:22:06 Date Recorded Body height Body mass index (BMI) Body weight Body temperature Heart rate Oxygen saturation Oxygen saturation in Arterial blood by Pulse oximetry Systolic And Diastolic Provider Name and Address Organization Details Last Updated DateTime 4 187.96 cm 25.3 kg/m2 60321.7 g 96.7 [degF] 66 /min 93 % 93 % 130/70 mm[Hg] Preeti BEVERLY [facility] & [place] 4 10:33:55 Social History Question Answer Notes LastModified by Organizat ion Details LastModified Time Tobacco Smoking Status Former Smoker Lindsaybharati Alexander benavides RUSH [facility] & [place] 08/05/2022 13:01:35 Do You Have An Advance Directive? Yes Information not available 08/05/2022 Are You Blind Or Do You Have Difficulty Seeing? No [email or web address] Information not available 08/05/2022 What Was The Date Of Your Most Recent Tobacco Screening? 06/21/2024 [email or web address] Information not available 06/24/2024 Are You Passively Exposed To Smoke? No [email or web address] Information not available 08/05/2022 How Much Tobacco Do You Smoke? No [email or web address] Information not available 08/05/2022 How Many Years Have You Smoked Tobacco? 30 Years In The Past Information not available 08/05/2022 Sex: Male Functional Status Question Answer Note LastModified by Organizat ion Details LastModified Time Do you use any illicit or recreational drugs? No [email or web address] Information not available 08/05/2022 What is your level of alcohol consumption? None [email or web address] Information not available 08/05/2022 Do you or have you ever used smokeless tobacco? Never used smokeless tobacco [email or web address] Information not available 08/05/2022 What is your exercise level? Occasional [email or web address] Information not available 08/05/2022 Mental Status Question Answer Note LastModified by Organization D etails LastModified Time Do you feel stressed (tense, restless, nervous, or anxious, or unable to sleep at night)? [id number] Information not available 08/05/2022 Family History Relationship Description Onset Age of this Age Resolved Age Notes LastModified by Organization Details LastModified Time Mother Myocardial infarction dec [email or web address] Not available 08/05 13:03:49 Mother Kidney disease [...] ICD10 Code Diagnosis IMO Codes Diagnosis Note [id number] Sanket Schaeffer Jr, MD [facility] [address] [place] [address] 08/05/2022 12:30:55 08/05/2022 13:26:38 Benign prostatic hyperplasia with outflow obstruction 653900552 N40.1 Patient with lower urinary tract symptoms due to BPH. He is doing well on the tamsulosin and is to continue. Erectile dysfunction 860 224637 F52.21 patient with history of erectile dysfunctio n. He states he does well with the sildenafil 100 mg p.r.n.. [id number] Sanket Schaeffer Jr, MD [facility] [address] [place] [address] 02/06/2023 13:40:33 02/06/2023 14:19:48 Prostate specific antigen above reference range 196635265 R97.20 Patient with history of elevated PSA. [...] tract symptoms due to benign prostatic hypertrophy 5429222737 9101 N40.1 patient with history of BPH. He is voiding well on the tamsulosin and is to continue. Erectile dysfunction 860 517840 F52.21 patient with history of erectile dysfunctio n. He states he does well with the sildenafil 100 mg p.r.n.. [id number] Sanket Schaeffer Jr, MD [facility] [address] [address] 08/13/2023 08:41:10 08/13/2023 09:26:44 Prostate specific antigen above reference range 480837936 R97.20 Patient with history of elevated PSA. His recent PSA 2 weeks ago Was 11.5. This is we will higher than his previous of 9.6. It has been as high as 10.1 in the past. We again discussed prostate biopsy versus monitoring and he wishes to continue monitoring . Lower urin matty tract symptoms due to benign prostatic hypertrophy 4022362352 9101 N40.1 patient with history of BPH. [...] direction at this time. Erectile dysfunction 860 121725 F52.21 patient with history of erectile dysfunctio n. He states he does well with the sildenafil 100 mg p.r.n.. We have discussed not taking the sildenafil within 4 hours of the Flomax. [id number] Sanket Schaeffer Jr, MD [facility] [address] [address] 02/13/2024 09:03:41 02/13/2024 09:40:36 Prostate specific antigen above reference range 066823734 R97.20 Patient with history of elevated PSA. [...] tract symptoms due to benign prostatic hypertrophy 1026558427 9101 N40.1 patient with history of BPH. patient states some increased frequency and nocturia. patient has not improved in the past with increasing his tamsulosin 2 a day or with oxybutynin . He complains of decreased flow. We would discussed other options but they require surgical procedures as well. [id number] Sanket Schaeffer Jr, MD [facility] [address] [address] 11/12/2023 09:13:53 11/12/2023 10:07:59 Lower urinary tract symptoms due to benign prostatic hypertrophy 0180190688 9101 N40.1 patient with history of BPH. [...] Prostate s pecific antigen above reference range 202348326 R97.20 Patient with history of elevated PSA. [...] PSA in 3 months. Erectile dysfunction 860 787770 F52.21 patient with history of erectile dysfunctio n. He states he does well with the sildenafil 100 mg p.r.n.. We have discussed not taking the sildenafil within 4 hours of the Flomax. 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 Patient is negative for any pulmonary symptoms. Chest xray normal. Patient is on suppressiv e medication s for PMR. Patient takes Warfarin due to his mechanical heart valve. Will start Isoniazid and Vitamin B6. Will see patient back in 1 month. Plan will be to complete a 9 month regimen. All questions answered. [id number] [facility]105 [address] [facility] [address] [place] [address] 07/23/2024 09:14:15 07/23/2024 09:34:06 Inactive tuberculosis 93829973 Z22.7 History of being in the . [...] 1 month. High risk medication monitoring indicated 1107616899 0165894 Z76.89 Will check a CBC and hepatic function panel due to the hr advisor use of Isoniazid. Will monitor weight regularly and check for adverse effects. [id number] [facility]105 [address] [facility] [address] [place] [address] 08/20/2024 10:25:17 08/20/2024 10:44:10 Inactive tuberculosis 44717452 Z22.7 History of being in the . [...] 1 month. High risk medication monitoring indicated 9058517674 7949243 Z76.89 Will check a CBC and hepatic function panel due to the hr advisor use of Isoniazid. Will monitor weight regularly and check for adverse effects. [id number] [facility]105 [address] [facility] [address] [place] [address] 10/21/2024 10:32:10 10/21/2024 10:47:20 Inactive tuberculosis 58035064 Z22.7 History of being in the . [...] 2 months. High risk medication monitoring indicated 2336449709 5464490 Z76.89 Will check a CBC and hepatic function panel due to the hr advisor use of Isoniazid. Will monitor weight regularly and check for adverse effects. [id number] [facility] -105 [address] [facility] [address] [place] [address] 12/21/2024 13:36:37 12/21/2024 13:51:52 Inactive tuberculosis 88936245 Z22.7 History of being in the . [...] 3 months. High risk medication monitoring indicated 5626681127 5232975 Z76.89 Will check a CBC and hepatic function panel due to the hr advisor use of Isoniazid. Will monitor weight regularly and check for adverse effects. 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 [...] up required. High risk medication monitoring indicated 2867429155 7017682 Z76.89 Will check a CBC and hepatic function panel due to the hr advisor use of Isoniazid. Will monitor weight regularly [...] *SELF PAY* Ri khushi Lezama 03/24/2025 2 [facility] [place] Martin Lezama [id number] Martin Lezama 03/19/2025 1 MEDIC[place]MEDICARE[place] Martin Lezama [id number] Martin Lzeama Notes Date Note Type Note Provider Name and Address Organization Details Recorded Time 07/23/2024 text/html ROS as noted in the HPI patient presents to clinic for follow up [...] fevers. Nery Lee APRN [address], [place], [address], [facility] [place] 07/23/2024 09:37:00 08/20/2024 text/html ROS as noted in the HPI patient presents to clinic for follow up [...] treatment. Nery Lee APRN [address], [place], [address], [facility] 08/20/2024 10:49:26 10/21/2024 text/html ROS as noted in the HPI patient presents to clinic for follow up [...] cancer. Nery Lee APRN [address], [place], [address], [facility] 10/21/2024 11:35:54 12/21/2024 text/html ROS as noted in the HPI patient presents to clinic for follow up [...] cancer. Nery Lee APRN [address], [place], [address], [facility] [place] 12/21/2024 13:51:11 03/22/2025 text/html ROS as noted in the HPI patient presents to clinic for follow up [...] parasthesia. Nery Lee APRN [address], [place], [address], [facility] [place] 03/24/2025 11:59:01
--- OUTSIDE RECORDS SUMMARY | 2025-07-07 14:45 | XMS_ITS | Encounter Summary ---
Author Organization [facility] Address [address] [place] [address] Care Team Providers Care Forensic Accountant Name Role Phone Tristan Billings DO Primary Care Provider [phone] Abelardo Pappas MD Primary Care Provider [phone] Encounter Details Date Type Department Care Team (Late Contact Info) Description 06/01/2025 Orders Only [facility] [address] [place] [address] Justen Jaimes MD [address] [address] Social History Tobacco Use Types [...] Description 11/28/2025 2:00 PM EDT Office Visit [facility] [address] [place] [phone] 11/28/2025 3:00 PM EDT Office Visit [facility] [address] [place] [address] Justen Jaimes MD [address] [place] [address] 11/28/2025 3:15 PM EDT Clinical Support [facility] [address] [place] [address] documented as of this encounter Procedures Procedure [...] documented as of this encounter Care Teams Forensic Accountant Relationship Specialty Start Date End Date Tristan Billings DO [address] [place] [address] PCP - General 09/13/24 06/03/25 Abelardo Pappas MD [address] [place] [address] PCP - General 06/04/25 documented as of this encounter
--- OUTSIDE RECORDS SUMMARY | 2025-07-07 14:46 | XMS_ITS | Referral Summary ---
Author Organization [employer] ([place], [place], [place], [place]) Address [address] [place] [address] Care Team Providers Care Development Director Name Role Phone Tristan Billings DO Primary Care Provider [phone] Allergies No known active allergies Medications glipiZIDE [...] any time in the past 12 m [facility], were you homeless or living [...] Do you speak a language other than Spanish at [facility]? 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
--- OUTSIDE RECORDS SUMMARY | 2025-07-07 14:46 | XMS_ITS | Encounter Summary ---
Author Organization [facility] Address [address] [place] [address] Care Team Providers Care Cinder Pit Crane Operator Name Role Phone Abelardo Pappas MD Primary Care Provider [phone] Encounter Details Date Type Department Care Team (Late Contact Info) Description 06/28/2025 Orders Only [facility] [address] [place] [address] Justen Jaimes MD [address] [phone] Malignant neoplasm of prostate (CMS/HCC) Social History [...] Description 11/28/2025 2:00 PM EDT Office Visit [facility] [address] [place] [address] 11/28/2025 3:00 PM EDT Office Visit [facility] [address] [place] [address] Justen Jaimes MD [address] [address] 11/28/2025 3:15 PM EDT Clinical Support [facility] [address] [place] [address] documented as of this encounter Visit Diagnoses Diagnosis Malignant neoplasm of prostate (CMS/HCC) Malignant neoplasm of prostate documented in this encounter Additional Health Concerns Assessment Noted Time PHQ-9 Depression Total Score: 0 12/28/19 1:21 PM EDT A fall risk assessment has been complete d for the patient 06/06/2025 3:46 PM EDT documented as of this encounter Care Teams Cinder Pit Crane Operator Relationship Specialty Start Date End Date Abelardo Pappas MD [address] [place] [address] PCP - General 06/04/25 documented as of this encounter
--- OUTSIDE RECORDS SUMMARY | 2025-07-07 14:46 | XMS_ITS | Clinical Summary ---
Author Organization [employer] ([place], [place], [place], [place]) Address [address] [place] [address] Care Team Providers Care Fulfillment Coordinator Name Role Phone Tristan Billings DO Primary Care Provider [phone] Allergies No known active allergies Medications glipiZIDE [...] any time in the past 12 m [facility], were you homeless or living in a prison (including now)? No 08/14/2024 Utilities Answer Date [...] living situation today? I have a [facility] place to live 08/10/2024 Think about [...] Do you speak a language other than Armenian at [facility]? 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
--- OUTSIDE RECORDS SUMMARY | 2025-07-07 14:46 | XMS_ITS | Encounter Summary ---
Author Organization [facility] Address [address] [place] [address] Care Team Providers Care Sales And Service Change Leader Name Role Phone Abelardo Pappas MD Primary Care Provider [phone] Encounter Details Date Type Department Care Team (Late st Contact Info) Description 06/06/2025 Orders Only [facility] [address] [place] [phone] Justen Jaimes MD [address] [facility] [address] [place] [phone] Social History Tobacco Use Types Packs/Day Years [...] Description 11/28/2025 2:00 PM EDT Office Visit [facility] [address] [place] [address] 11/28/2025 3:00 PM EDT Office Visit [facility] [address] [place] [address] Justen Jaimes MD [address] [address] 11/28/2025 3:15 PM EDT Clinical Support [facility] [address] [place] [address] documented as of this encounter Procedures Procedure Name Priority Date/Time Associated Diagnosis Comments RBC MORPHOLOGY ([facility]) Routine 06/06/2025 1:50 PM EDT documented in this encounter Results * (ABNORMAL) RBC MORPHOLOGY (EXTERNAL) (06/06/2025 1:50 PM EDT) External Platelet Morphology NORMAL 06/06/2025 4:06 PM EDT [facility] External Ovalocytes SLIGHT(A) 06/06/2025 4:06 PM EDT [facility] External Stomatocyte SLIGHT(A) 06/06/2025 4:06 PM EDT [facility] External Target Cells SLIGHT(A) 06/06/2025 4:06 PM EDT [facility] External Tear Drop Cells SLIGHT(A) 06/06/2025 4:06 PM EDT [facility] 06/06/2025 1:50 PM EDT 06/06/2025 2:21 PM EDT us Justen Jaimes MD LAB BLOOD ORDERABLES Flaca ledezma Result [facility] [address] [place] [address], documented in this encounter Visit Diagnoses Not on filedocumented in this encounter Additional Health Concerns Assessment Noted Time PHQ-9 Depression Total Score: 0 12/28/19 1:21 PM EDT A fall risk assessment has been complete d for the patient 06/06/2025 3:46 PM EDT documented as of this encounter Care Teams Sales And Service Change Leader Relationship Specialty Start Date End Date Abelardo Pappas MD [address] [place] [address] PCP - General 06/04/25 documented as of this encounter
--- OUTSIDE RECORDS SUMMARY | 2025-07-07 14:46 | XMS_ITS | Continuity of Care Document ---
Author Organization [facility], [facility] Address [address] [place] [address] Care Team Providers Care Media Technician Name Role Phone FADY FLOR Referring Provider ZORAIDA GARDNER Radiation Oncologist [facility] MARTÍN ERVIN Medical Oncologist TRACI PIERRE [facility] GAYLA SANCHEZ Primary Care Provider Assessment Encounter Date Assessment Date Assessment LastModified by Organization Details LastModified Time 05/09/2025 05/09/2025 Assessment: Mr. Lezama has a very good PSA response to radiation therapy with ADT. His urinary function is better than before radiation therapy. He has constipation associated with Campbell use. Plan: 1. I advised Mr. Lezama to take Colace daily and MiraLAX as needed. 2. Mr. Lezama will have his PSA level checked and receive his 3rd Lupron injection from Dr. Lamb on 08/29/2025. 3. Mr. Lezama will have his PSA checked then return to see me in November 2025. [email or web address] Not available 06/08/2025 20:24:15 Plan of Treatment Reminders Order Date Submit [...] Abnormal Flag Note LastModifiedBy Organization Detail LastModifiedTime Result Notes None recorded. Procedures Surgical History Date Name Laterality Status Provider Name and Address Organization Details Recorded Time 09/17/19 25 Prostate marker placement with SpaceOAR completed ZORAIDA GARDNER MD [address], [place], [address], [facility] 09/20/2024 21:49:03 10/16/18 98 [facility] 12:00:45 09/15/18 98 [facility] 12:01:01 09/15/18 80 [facility] 12:01:12 Imaging Results [...] and 1 capsule 8 hours after procedure 05/09 completed Not Available Not Available Not Available isoniazid 300 mg tablet Take 1 tablet every day by oral route. active Not Available Not Available No t Available tamsulosin 0.4 mg capsule Take 2 capsules every day by oral route. active Not Available Not Available No t Available diazepam 2 mg tablet Take 1 tablet by oral route. 05/09 completed Not Available Not Available Not Available dexamethaso ne 2 mg tablet Take 1 tablet 2 hours before procedure , 1 tablet 2 hours after procedure and 1 tablet 8 hours after procedure 05/09 completed Not Available Not Available Not Available simvastatin 20 mg tablet Take 1 [...] Details Last Updated DateTime 5 187.96 cm 25.4 kg/m2 08659.2 9 g 97.7 [degF] 63 /min 92 % 92 % 130/62 mm[Hg] Roselyn Rivera [facility] 5 13:37:37 Social History Question Answer Notes LastModified by Organizat ion Details LastModified Time Tobacco Smoking Status Former Smoker Roselyn Rivera [facility] 08/17/2024 11:34:36 What Is Your Level Of Caffeine Consumption? Occasional Information not available 08/17/2024 When Did You Quit Smoking? 18+yearssinjovani [email or web address] Information not available 08/17/2024 What Is Your [...] Hyperparathyroidism N Digestive Problems N Chemotherapy N Hypothyroidism N Lung Disease N Skin Problems N Head & Neck [...] ICD10 Code Diagnosis IMO Codes Diagnosis Note [id number] ZORAIDA GARDNER MD [facility] [address] [place] [address] 05/09/2025 13:28:35 06/09/2025 11:15:00 Malignant neoplasm of prostate [id number] FOR 11/28/2025 APPT Health Concerns Section Related Observation LastModified by Organization Detai ls LastModified Time None Recorded Concern Status LastModified by Organization Details LastModified Time None Recorded Payers Encounter Date Sequence Insurance Name Policy Number Policy Carroll Covered Member ID Carroll Member ID Guarantor Name 05/09/2025 1 [place] Martin Lezama [id number] Martin Lezama 05/09/2025 2 [employer] () Martin Lezama [id number] Martin Lezama Notes Date Note Type Note Provider Name and Address Organization Details Recorded Time 05/09/2025 text/html ROS as noted in the HPI 79-year-old is seen for his scheduled follow-up 5 months after completing radiation therapy for his 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 The initial radiation therapy volume delivered 56 Gy to his prostate, seminal vesicles, and grossly involved lymph nodes and 50.4 Gy to the uninvolved pelvic and retroperitoneal nodes in 28 daily fractions over 37 elapsed days from 10/13/2024 through 11/19/2024 using 6 MV photons with volumetric modulated arc therapy technique. The entire prostate was then boosted with an additional 24 Gy in 12 daily fractions of 2 Gy each over 15 elapsed days from 11/22/2024 through 12/07/2024 using 6 MV photons with volumetric modulated arc therapy technique. Mr. Lezama received 6-month Lupron injections from Dr. Lamb on 09/03/2024 and 02/28/2025. Serum PSA was 0.347 on 04/27/2025, 0.53 on 02/28/2025, and 1.65 on 12/22/2024. Prebiopsy PSA was 41.3 on 04/29/2024. Mr. Lezama underwent an L3 kyphoplasty on 04/28/2025 for painful compression fractures of L1 and L3. His back pain subsided but recurred on 05/05/2025. He takes 1-2 Campbell 5/325 mg tablets daily, Robaxin 750 mg twice daily, and wears a back brace for low back pain. He denies pain anywhere else in his body. He receives an Arencia infusion monthly for rheumatoid arthritis. Today, Mr. Lezama reports an IPSS of 2 out of 35 while taking tamsulosin 0.4 mg and oxybutynin 10 mg ER daily. . He denies dysuria. His IPSS prior to radiation therapy was 22 out of 35 with nocturia x 3 4 and urinary frequency, intermittency, urgency, and weak stream despite taking tamsulosin 0.4 mg twice daily and oxybutynin 5 mg ER daily. His DIVINA score has been 1 out of 25 since starting Lupron. Prior to radiation therapy, his DIVINA score was 10 out of 25. He has 2-3 bowel movements weekly without tenesmus, melena, hematochezia, dyschezia, or frequent diarrhea. He started taking MiraLAX on 05/08/2025. He has lower abdominal tenderness relieved by bowel movements. He denies having hot flashes. ZORAIDA GARDNER MD [address], [place], [address], [facility] 06/08/2025 20:29:30
--- OUTSIDE RECORDS SUMMARY | 2025-07-07 14:46 | XMS_ITS | Data Portability ---
Author Organization [place] - [facility], [employer] [facility] Address [address] [place] [address] Care Team Providers Care Hull Sorter Name Role Phone FRED MURILLO Primary Care Provider [phone] Assessment No assessment recorded. Plan of Treatment [...] Address Organization Details Recorded Time Diabetes mellitus 25749541 Active 2022 Faraz [place] null, [place] - [facility] 3 13:55:39 Essential hypertension 13309421 Active 2022 Faraz [place] null, [place] - [facility] 3 13:55:49 Anticoagulan t therapy Active 2022 MANDY Hart null, [place] - [facility] 3 13:26:20 Osteoarthrit is 977123404 Active 2022 MANDY Hart null, [place] - [facility] 3 13:26:33 Erectile dysfunction 383639265 Active 2022 MANDY Hart null, [place] - [facility] 3 13:26:40 Benign prostatic hyperplasia 989552745 Active 2022 MANDY Hart null, [place] - [facility] 3 13:26:49 Hyperlipidem ia 81390035 Active 2022 MANDY Hart null, [facility] 3 13:26:55 Problem Notes None recorded. [...] Quit in 24 years ago Chani [facility], [place] - [facility] 11/16/2021 15:33:17 Are You Blind Or Do [...] Functional Status Question Answer Note LastModified by [employer] Details LastModified Time Do you use any illicit or recreational drugs? No Information not available 11/16/2021 Do you or have you ever used any other forms of tobacco or nicotine? No Information not available 11/16/2021 What is your level of alcohol consumption? None Information not available 11/16/2021 Do you have transportation difficulties? No Information not available 11/16/2021 Are you able to walk independently without assistance or assistive devices? YESWOREST Information not available 11/16/2021 Do you have difficulty doing errands alone? No Information not available 11/16/2021 Are you able to care for yourself independently? Yes Information not available 11/16/2021 Do you have difficulty dressing, bathing, grooming, or toileting? No Information not available 11/16/2021 What is your exercise level? Occasional Information not available 11/16/2021 Mental Status Question Answer Note LastModified by [employer] Details LastModified Time Do you feel stressed (tense, restless, nervous, or anxious, or unable to sleep at night)? [id number] Information not available 11/16/2021 Do you have difficulty concentrating, remembering or making decisions? No Information no t available 11/16/2021 Family History Relationship Description Onset Age of this Age Resolved Age Notes LastModified by Organization Details LastModified Time Brother Diabetes mellitus [email or web address] Not available 11/16/2021 15:30:36 Sister Essential [...] ICD10 Code Diagnosis IMO Codes Diagnosis Note 4080 Srikanth Edwards MD [facility] [address] [place] [id number] 11/16/2021 15:19:12 12/25/2021 23:31:53 Essential hypertension 83633058 I10 Uncontroll ed type 2 diabetes mellitus 783798114 E11.65 4710 Srikanth Edwards MD [facility] [address] [place] [address] 11/26/2021 14:38:42 01/08/2022 12:37:48 Diabetes mellitus 13578184 E11.9 Essential hypertension 80403977 I10 5926 Srikanth Edwards MD [facility] [address] [place] [address] 12/07/2021 15:42:51 01/03/2022 21:27:02 Diabetes mellitus 94891426 E11.9 Essential hypertension 64899411 I10 6729 Srikanth Edwards MD [place] [facility] [address] [place] [address] 12/14/2021 16:04:16 01/29/2022 03:54:52 Diabetes mellitus 91958514 E11.9 Essential hypertension 47917815 I10 7470 Srikanth Edwards MD [place] [facility] [address] [place] [address] 12/21/2021 16:01:40 01/29/2022 03:54:53 Diabetes mellitus 51369264 E11.9 Essential hypertension 27000426 I10 9186 Srikanth Edwards MD [place] [facility] [place] [address] [place] [address] 01/04/2022 16:02:31 01/29/2022 03:54:56 Diabetes mellitus 69209413 E11.9 Essential hypertension 10894426 I10 55941 Srikanth Edwards MD [place] [facility] [place] [address] [place] [address] 01/11/2022 16:17:47 01/28/2022 16:14:32 Diabetes mellitus 76004504 E11.9 Essential hypertension 42894222 I10 49306 Srikanth Edwards MD [place] [facility] [address] [place] [address] 01/18/2022 16:12:09 02/14/2022 15:53:17 Diabetes mellitus 33955859 E11.9 Essential hypertension 57171778 I10 68576 Srikanth Edwards MD [place] [facility] [address] [place] [address] 01/25/2022 16:12:01 01/25/2022 22:10:14 Diabetes mellitus 44161294 E11.9 Essential hypertension 62505163 I10 81569 Srikanth Edwards MD [place] [facility] [address] [place] [address] 02/01/2022 16:08:44 02/04/2022 10:47:52 Diabetes mellitus 65393055 E11.9 Essential hypertension 00724001 I10 32624 Srikanth Edwards MD [place] [address] [place] [address] 02/08/2022 16:21:37 03/24/2022 13:15:23 Diabetes mellitus 44046852 E11.9 Essential hypertension 11376160 I10 39752 Srikanth Edwards MD [place] [facility] [address] [place] [address] 02/15/2022 16:03:42 02/19/2022 14:34:17 Diabetes mellitus 57352878 E11.9 Essential hypertension 13194097 I10 55196 Srikanth Edwards MD [place] [facility] [address] [place] [address] 02/22/2022 16:04:55 03/17/2022 23:46:42 Diabetes mellitus 24535992 E11.9 Essential hypertension 10759318 I10 24865 MD ANIBAL Teixeira [facility] [address] [place] [address] 03/01/2022 16:07:59 03/17/2022 21:45:58 Diabetes mellitus 89827737 E11.9 Essential hypertension 20332407 I10 56554 MD ANIBAL Teixeira [facility] [address] 03/08/2022 16:05:33 04/05/2022 03:53:43 Diabetes mellitus 84482822 E11.9 Essential hypertension 40518252 I10 86544 MD ANIBAL Teixeira [facility] [address] [place] [address] 03/15/2022 16:11:27 04/26/2022 03:53:33 Diabetes mellitus 70772244 E11.9 Essential hypertension 66173684 I10 18568 MD ANIBAL Teixeira [facility] [address] [place] [address] 04/05/2022 16:21:27 04/24/2022 14:56:34 Diabetes mellitus 08649443 E11.9 Essential hypertension 48388625 I10 05861 MD ANIBAL Teixeira [facility] [address] [place] [address] 04/19/2022 16:15:15 05/30/2022 03:54:38 Diabetes mellitus 80762197 E11.9 Essential hypertension 48190623 I10 08195 MD ANIBAL Teixeira [facility] [address] [place] [address] 05/03/2022 16:55:42 05/29/2022 15:30:59 Diabetes mellitus 02416366 E11.9 Essential hypertension 03767281 I10 06539 Rajendra Hart, SENIOR MECHANICAL TECHNICIAN-MEDICAL SOCIOLOGIST [place] [facility] [place] [address] [place] [address] 05/17/2022 16:05:31 06/27/2022 03:53:23 Diabetes mellitus 23734778 E11.9 Essential hypertension 79078788 I10 86724 Rajendra Hart SENIOR MECHANICAL TECHNICIAN-MEDICAL SOCIOLOGIST [facility] [address] [place] [address] 05/31/2022 16:14:33 06/27/2022 03:53:27 Diabetes mellitus 56248254 E11.9 Essential hypertension 85178003 I10 51923 Rajendra Hart SENIOR MECHANICAL TECHNICIAN-MEDICAL SOCIOLOGIST [facility] [address] [place] [address] 06/14/2022 16:18:22 06/26/2022 10:53:41 Diabetes mellitus 11191300 E11.9 Essential hypertension 08260814 I10 27384 Rajendra Hart SENIOR MECHANICAL TECHNICIAN-MEDICAL SOCIOLOGIST [facility] [address] [place] [address] 06/28/2022 16:33:56 08/01/2022 03:52:38 Diabetes mellitus 25642042 E11.9 Essential hypertension 11779347 I10 56443 Rajendra Hart SENIOR MECHANICAL TECHNICIAN-MEDICAL SOCIOLOGIST [facility] [address] [place] [address] 07/12/2022 16:20:00 07/31/2022 14:32:30 Diabetes mellitus 45424783 E11.9 Essential hypertension 83248221 I10 18656 Rajendra Hart SENIOR MECHANICAL TECHNICIAN-MEDICAL SOCIOLOGIST [facility] [address] [place] [address] 07/26/2022 16:20:55 11/19/2022 10:48:00 Diabetes mellitus 79739834 E11.9 Essential hypertension 39797525 I10 07685 Rajendra Hart SENIOR MECHANICAL TECHNICIAN-MEDICAL SOCIOLOGIST [facility] [address] [place] [address] 08/16/2022 16:30:19 08/19/2022 12:09:55 Diabetes mellitus 09664860 E11.9 Essential hypertension 37502415 I10 57361 Rajendra Hart SENIOR MECHANICAL TECHNICIAN-MEDICAL SOCIOLOGIST [facility] [address] [place] [address] 08/30/2022 16:12:03 11/29/2022 13:02:35 Diabetes mellitus 07496258 E11.9 Essential hypertension 27730594 I10 04126 SUSAN Welsh [place] [address] [place] [address] 09/13/2022 16:53:17 12/30/2022 00:26:22 Diabetes mellitus 94252535 E11.9 Essential hypertension 65724236 I10 06329 SUSAN Welsh [place] [address] [place] [address] 09/27/2022 16:19:22 12/30/2022 18:51:10 Diabetes mellitus 40180898 E11.9 Essential hypertension 47544565 I10 93273 SUSAN Welsh [facility] [address] [place] [address] 10/11/2022 16:17:43 01/18/2023 14:30:53 Diabetes mellitus 20091932 E11.9 Essential hypertension 56394338 I10 07686 SUSAN Welsh[facility]Nurs[facility] Schedule [address] [place] [address] 10/25/2022 16:34:28 01/29/2023 11:50:46 Diabetes mellitus 13823076 E11.9 Patient's glucose readings are trending higher in the mornings, but normal after meals. Fasting glucose this morning was 149. Pt states this is due to veering away from diabetic diet due to 's medical issues but will try to do better. Encouraged pt to continue checking blood glucose daily and choose diabetic friendly foods. Essential hypertension 84470372 I10 Patient's blood pressure readings are trending [...] as prescribed , and exercise as tolerated. 09668 SUSAN Welsh_Nurs[facility] Schedule [address] [place] [address] 11/08/2022 17:39:15 02/15/2023 21:45:57 Diabetes mellitus 94028351 E11.9 Essential hypertension 51745020 I10 41813 Rajendra Hart APRN-MEDICAL SOCIOLOGIST [facility] [address] [place] [address] 11/22/2022 16:15:15 11/22/2022 16:41:00 Diabetes mellitus 86687109 E11.9 Essential hypertension 59375993 I10 86068 Rajendra Hart APRN-MEDICAL SOCIOLOGIST [facility] [address] [place] [address] 12/13/2022 16:16:33 12/13/2022 16:24:25 Diabetes mellitus 75138094 E11.9 Essential hypertension 86762084 I10 [id number] Rajendra Hart APRN-MEDICAL SOCIOLOGIST [facility] [address] [place] [address] 01/17/2023 16:46:22 01/17/2023 16:52:09 Diabetes mellitus 57110860 E11.9 Essential hypertension 77545697 I10 [id number] Rajendra Hart APRN-MEDICAL SOCIOLOGIST [facility] [address] [place] [address] 01/30/2023 15:12:10 01/30/2023 16:46:05 Diabetes mellitus 53122960 E11.9 Essential hypertension 10639977 I10 458606 Rajendra Hart APRN-MEDICAL SOCIOLOGIST [facility] [address] [place] [address] 02/07/2023 16:02:31 02/07/2023 16:07:35 Diabetes mellitus 74367058 E11.9 Essential hypertension 64195443 I10 [id number] Rajendra Hart APRN-MEDICAL SOCIOLOGIST [facility] [address] [place] [address] 02/21/2023 16:28:58 02/21/2023 16:34:55 Diabetes mellitus 03789802 E11.9 Essential hypertension 06108134 I10 037779 TODD CHOWDHURY NP [facility] Schedule [address] [place] [address] 03/07/2023 15:48:39 03/07/2023 15:53:49 Diabetes mellitus 60746269 E11.9 Essential hypertension 68191809 I10 [id number] TODD CHOWDHURY NP [facility] Schedule [address] [place] [address] 03/21/2023 15:40:28 03/21/2023 15:50:36 Diabetes mellitus 95489873 E11.9 Essential hypertension 46121532 I10 138495 TODD CHOWDHURY NP [facility] Schedule [address] [place] [address] 04/04/2023 15:45:51 04/04/2023 15:54:30 Diabetes mellitus 90316710 E11.9 Essential hypertension 39847842 I10 911948 TODD CHOWDHURY NP [facility] Schedule [address] [place] [address] 04/18/2023 15:33:35 04/18/2023 15:43:13 Diabetes mellitus 34646130 E11.9 Essential hypertension 73881760 I10 570366 TODD CHOWDHURY NP [facility] Schedule [address] [place] [address] 05/02/2023 15:42:42 05/02/2023 15:47:40 Diabetes mellitus 67692851 E11.9 Essential hypertension 30856025 I10 [id number] TODD CHOWDHURY NP [facility] Schedule [address] [place] [address] 05/23/2023 15:43:29 05/23/2023 15:50:23 Diabetes mellitus 22926110 E11.9 Essential hypertension 45716830 I10 003028 TODD CHOWDHURY NP [facility] Schedule [address] [place] [address] 06/06/2023 15:28:59 06/06/2023 15:39:02 Diabetes mellitus 07428860 E11.9 Essential hypertension 87421365 I10 867388 TODD CHOWDHURY NP [facility] Schedule [address] [place] [address] 07/18/2023 17:43:20 07/21/2023 09:45:32 Diabetes mellitus 30751328 E11.9 Essential hypertension 19704401 I10 [id number] TODD CHOWDHURY NP [facility] Schedule [address] [place] [address] 08/01/2023 17:36:40 08/04/2023 10:06:54 Diabetes mellitus 87110412 E11.9 Essential hypertension 44004185 I10 [id number] TODD CHOWDHURY NP [facility] Schedule [address] [place] [address] 08/22/2023 16:42:04 08/27/2023 10:54:09 Diabetes mellitus 84003128 E11.9 Essential hypertension 11009729 I10 789377 Annalise Taylor NP [facility] Schedule [address] [place] [address] 09/05/2023 17:28:17 09/05/2023 17:49:18 Diabetes mellitus 67649023 E11.9 Essential hypertension 19291637 I10 [id number] Annalise Taylor NP [facility] Schedule [address] [place] [address] 10/31/2023 15:53:43 11/03/2023 15:44:35 Diabetes mellitus 07986906 E11.9 Essential hypertension 01853629 I10 [id number] Annalise Taylor NP [facility] Schedule [address] [place] [address] 11/28/2023 17:25:32 11/28/2023 17:37:46 Essential hypertension 81344997 I10 Diabetes mellitus 881422 09 E11.9 963575 Annalise Taylor NP [facility] Schedule [address] [place] [address] 12/03/2023 17:39:49 12/03/2023 17:50:36 Essential hypertension 91179572 I10 Diabetes mellitus 985052 09 E11.9 029281 Annalise Taylor NP [facility] Schedule [address] [place] [address] 12/17/2023 16:31:39 12/17/2023 16:39:03 Essential hypertension 31165358 I10 Diabetes mellitus 447176 E11.9 564286 Annalise Taylor NP [facility] Schedule [address] [place] [address] 12/31/2023 16:49:01 12/31/2023 16:56:48 Essential hypertension 40772241 I10 Diabetes mellitus 919179 E11.9 055592 Annalise Taylor NP [facility] Schedule [address] [place] [address] 01/14/2024 17:14:28 01/14/2024 17:25:19 Essential hypertension 11780728 I10 Diabetes mellitus 309307 E11.9 083866 Annalise Taylor NP [facility] Schedule [address] [place] [address] 01/28/2024 17:09:51 01/28/2024 17:19:17 Essential hypertension 92233737 I10 Diabetes mellitus 206674 E11.9 276333 KELLY Carreon_Nursin g Schedule [address] [place] [address] 02/25/2024 16:39:38 02/25/2024 16:49:57 Essential hypertension 27569590 I10 Diabetes mellitus 592833 E11.9 736336 Annalise Taylor NP [facility] Schedule [address] [place] [address] 02/26/2024 16:38:32 02/26/2024 16:48:12 Diabetes mellitus 11586234 E11.9 -Continue the following medication s as [...] no fluid restrictio n? YES. Essential hypertension 31278428 I10 -Continue the following medication s as [...] restrictio n? YES.Watchi ng salt intake? YES. 898832 KELLY Carreon_Nursin g Schedule [address] [place] [address] 03/10/2024 17:35:11 03/11/2024 09:38:18 Essential hypertension 98929189 I10 Diabetes mellitus 914013 E11.9 900455 KELLY Carreon_Nursin g Schedule [address] [place] [address] 03/24/2024 16:31:57 03/24/2024 16:49:23 Essential hypertension 04090755 I10 Diabetes mellitus 544477 E11.9 900091 KELLY Carreon_Nursin g Schedule [address] [place] [address] 04/07/2024 16:38:20 04/07/2024 16:53:36 Essential hypertension 45647177 I10 Diabetes mellitus 846826 E11.9 697236 KELLY Carreon_Nursin [facility] Schedule [address] [place] [address] 04/23/2024 15:44:06 04/23/2024 15:55:49 Essential hypertension 21660755 I10 Diabetes mellitus 366439 E11.9 388226 KELLY Carreon_Nursin g Schedule [address] [place] [address] 05/19/2024 16:41:13 05/19/2024 16:57:22 Essential hypertension 01288137 I10 Diabetes mellitus 006665 E11.9 883046 KELLY Carreon_Nursin g Schedule [address] [place] [address] 06/02/2024 16:39:18 06/02/2024 16:58:29 Essential hypertension 11499075 I10 Diabetes mellitus 551515 09 E11.9 023444 Annalise Taylor, APPOINTMENT SPECIALIST [facility] Schedule [address] [place] [address] 06/16/2024 15:57:59 06/16/2024 16:15:11 Essential hypertension 18138622 I10 Diabetes mellitus 412824 E11.9 928265 Annalise Taylor, APPOINTMENT SPECIALIST [facility] Schedule [address] [place] [address] 06/30/2024 16:33:01 06/30/2024 16:45:21 Essential hypertension 43189107 I10 Diabetes mellitus 513525 E11.9 230152 Annalise Taylor, APPOINTMENT SPECIALIST [facility] Schedule [address] [place] [address] 07/14/2024 16:18:27 07/14/2024 16:38:25 Diabetes mellitus 18213055 E11.9 Essential hypertension 12819003 I10 287490 Annalise Taylor, KELLY [facility] Schedule [address] [place] [address] 07/21/2024 17:39:48 07/21/2024 18:00:12 Essential hypertension 75788548 I10 Diabetes mellitus 952866 E11.9 690382 Annalise Taylor NP [facility] Schedule [address] [place] [address] 07/28/2024 17:47:57 07/28/2024 18:03:49 Diabetes mellitus 25453933 E11.9 Diabetes mellitus Essential hypertension 71199821 I10 Essential hypertensi on 859720 Annalise Taylor NP [facility] Schedule [address] [place] [address] 08/11/2024 17:24:32 08/11/2024 17:28:35 Diabetes mellitus 26136958 E11.9 Diabetes mellitus Essential hypertension 49574970 I10 Essential hypertensi on 663594 Annalise Taylor NP [facility] Schedule [address] [place] [address] 08/18/2024 17:45:40 08/18/2024 18:00:35 Diabetes mellitus 05296278 E11.9 Diabetes mellitus Essential hypertension 14571870 I10 Essential hypertensi on 049680 Annalise Taylor, APPOINTMENT SPECIALIST [facility] Schedule [address] [place] [address] 08/25/2024 17:32:06 08/25/2024 17:45:47 Diabetes mellitus 94450902 E11.9 Diabetes mellitus Essential hypertension 76196719 I10 Essential hypertensi on 209983 Annalise Taylor, APPOINTMENT SPECIALIST [facility] Schedule [address] [place] [address] 09/01/2024 17:04:25 09/01/2024 17:12:44 Diabetes mellitus 65176534 E11.9 Diabetes mellitus Essential hypertension 49983954 I10 Essential hypertensi on 394709 Annalise Taylor, KELLY [facility] Schedule [address] [place] [address] 09/09/2024 12:13:36 09/09/2024 12:16:47 Diabetes mellitus 42793422 E11.9 Diabetes mellitus Essential hypertension 81890162 I10 Essential hypertensi on 508526 Annalise Taylor, KELLY [facility] Schedule [address] [place] [address] 09/22/2024 18:18:09 09/23/2024 00:42:25 Diabetes mellitus 07315533 E11.9 Diabetes mellitus Essential hypertension 06087090 I10 Essential hypertensi on 311504 Annalise Taylor, KELLY [facility] Schedule [address] [place] [address] 09/29/2024 17:43:59 09/29/2024 17:52:53 Diabetes mellitus 48413782 E11.9 Diabetes mellitus Essential hypertension 91939451 I10 Essential hypertensi on 855993 Annalise Taylor, APPOINTMENT SPECIALIST [facility] Schedule [address] [place] [address] 10/05/2024 16:19:13 10/05/2024 16:30:38 Diabetes mellitus 76264544 E11.9 Diabetes mellitus Essential hypertension 36344195 I10 Hypertensi on Ongoing Care Plan - Frequency of biomarker readings: Once daily before meds - Medicatio n recommenda tions:X continue current regimen__ make these medication changes: Diabetes Ongoing Care Plan - Frequency of Biomarker Readings: Once daily: fasting before meds/break fastIf o ther, list leonard elder here: - Medication recommenda [...] cardiologi st; __ endocrinol ogist, __ other: P rovider Visit Frequency- Every 6-8 months while enrolled- As needed as concerns arise 093567 KELLY Carreon_Nursin g Schedule [address] [place] [address] 10/06/2024 16:48:08 10/06/2024 16:49:21 Diabetes mellitus 61493557 E11.9 Diabetes mellitus Essential hypertension 42277070 I10 Essential hypertensi on 458874 KELLY Carreon_Nursin g Schedule [address] [place] [address] 10/06/2024 17:45:23 10/06/2024 18:02:20 Diabetes mellitus 72136525 E11.9 Diabetes mellitus Essential hypertension 35300523 I10 Essential hypertensi on 730076 KELLY Carreon_Nursin g Schedule [address] [place] [address] 10/13/2024 16:35:33 10/13/2024 17:08:55 Diabetes mellitus 87270814 E11.9 Diabetes mellitus Essential hypertension 94030273 I10 Essential hypertensi on 392700 KELLY Carreon_Nursin g Schedule [address] [place] [address] 10/20/2024 16:40:00 10/20/2024 17:00:03 Diabetes mellitus 28613604 E11.9 Diabetes mellitus Essential hypertension 86086116 I10 Essential hypertensi on 631443 Annalise Taylor, APPOINTMENT SPECIALIST [facility] Schedule [address] [place] [address] 10/27/2024 17:15:42 10/27/2024 17:26:09 Diabetes mellitus 98810927 E11.9 Diabetes mellitus Essential hypertension 97102308 I10 Essential hypertensi on 030655 Annalise Taylor, APPOINTMENT SPECIALIST [facility] Schedule [address] [place] [address] 11/03/2024 16:31:49 11/03/2024 16:47:04 Diabetes mellitus 17957487 E11.9 Diabetes mellitus Essential hypertension 58775802 I10 Essential hypertensi on 518529 Annalise Taylor, APPOINTMENT SPECIALIST [facility] Schedule [address] [place] [address] 11/10/2024 16:22:43 11/10/2024 16:31:06 Diabetes mellitus 22469162 E11.9 Diabetes mellitus Essential hypertension 88187625 I10 Essential hypertensi on 489743 Annalise Taylor, APPOINTMENT SPECIALIST [facility] Schedule [address] [place] [address] 11/11/2024 10:18:10 11/11/2024 10:24:38 Diabetes mellitus 10164011 E11.9 Diabetes mellitus Essential hypertension 13046000 I10 Essential hypertensi on 103646 Annalise Taylor, APPOINTMENT SPECIALIST [facility] Schedule [address] [place] [address] 11/17/2024 16:20:28 11/17/2024 16:41:39 Diabetes mellitus 68216256 E11.9 Diabetes mellitus Essential hypertension 29856091 I10 Essential hypertensi on 014243 Annalise Taylor, APPOINTMENT SPECIALIST [facility] Schedule [address] [place] [address] 11/24/2024 16:44:33 11/24/2024 16:55:25 Diabetes mellitus 65278414 E11.9 Diabetes mellitus Essential hypertension 17996298 I10 Essential hypertensi on 323711 Annalise Taylor, APPOINTMENT SPECIALIST [facility] Schedule [address] [place] [address] 11/25/2024 08:40:30 11/25/2024 08:42:30 Diabetes mellitus 93161687 E11.9 Diabetes mellitus Essential hypertension 50378214 I10 Essential hypertensi on 656756 Annalise Taylor, KELLY [facility] Schedule [address] [place] [address] 12/01/2024 16:47:39 12/01/2024 16:58:01 Diabetes mellitus 08270906 E11.9 Diabetes mellitus Essential hypertension 85744608 I10 Essential hypertensi on 932256 Annalise Taylor NP [facility] Schedule [address] [place] [address] 12/08/2024 16:18:09 12/08/2024 16:35:01 Diabetes mellitus 00510346 E11.9 Diabetes mellitus Essential hypertension 60675802 I10 Essential hypertensi on Goals Section Goal [...] restricting artificial sweetener use NoChange active 2023 [place] Information not available 01/28/2024 21:18:56 Health Concerns Section Related Observation LastModified by Organization Detai ls LastModified Time None Recorded Concern Status LastModified by Organization Details LastModified Time None Recorded Advance Directives Directive None Recorded Payers Insurance Date Sequence Insurance Name Policy Number Policy Carroll Covered Member ID Carroll Member ID Guarantor Name 11/17/2024 [place] Martin Lezama [id number] Martin Lezama 11/17/2024 1 [place] Martin Lezama [id number] Martin Lezama 11/17/2024 [place] Martin Lezama [id number] Martin Lezama 01/19/2025 2 FOR LIFE ( - MEDICARE SUPPLEMENT) Martin Lezama [id number] Martin Lezama
--- OUTSIDE RECORDS SUMMARY | 2025-07-07 14:46 | XMS_ITS | Encounter Summary ---
Author Organization [facility] Address [address] [place] [address] Care Team Providers Care Client Support Coordinator Name Role Phone Abelardo Pappas MD Primary Care Provider [phone] Encounter Details Date Type Department Care Team (Late st Contact Info) Description 06/06/2025 Orders Only [facility] [address] [place] [id number] Justen Jaimes MD [address] [facility] [address] [place] [phone] Social History Tobacco Use Types Packs/Day Years [...] Description 11/28/2025 2:00 PM EDT Office Visit [facility] [address] [place] [address] 11/28/2025 3:00 PM EDT Office Visit [facility] [address] [place] [address] Justen Jaimes MD [address] [address] 11/28/2025 3:15 PM EDT Clinical Support [facility] [address] [place] [address] documented as of this encounter [...] documented as of this encounter Care Teams Client Support Coordinator Relationship Specialty Start Date End Date Abelardo Pappas MD [address] [place] [address] PCP - General 06/04/25 documented as of this encounter
--- OUTSIDE RECORDS SUMMARY | 2025-07-07 14:47 | XMS_ITS | Data Portability ---
Author Organization [facility] Address [address] [facility] [address] [place] [address] Care Team Providers Care Ultimate Hoops Trainer Name Role Phone CHACHO FADY Referring Provider ZORAIDA GARDNER Radiation Oncologist [facility] MARTÍN ERVIN Medical Oncologist [phone] TRACI PIERRE Pain Management GAYLA SANCHEZ Primary Care Provider [phone] Assessment Encounter Date Assessment Date Assessment LastModified by Organization Details LastModified Time 08/17/2024 08/17/2024 Assessment: 78-year-old man with recently diagnosed, 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 [email or web address] Not available 09/20/2024 21:51:35 05/09/2025 05/09/2025 Assessment: Mr. Lezama has a very good PSA response to radiation therapy with ADT. His urinary function is better than before radiation therapy. He has constipation associated with [place] use. Plan: 1. I advised Mr. Lezama [...] Time Details Appointments RECHECK 2024 01:30P M FADY LAMB MD Not available Not available Not available RECHECK 2025 11:30A M ZORAIDA GARDNER MD Not available Not [...] T, skull base to mid-t high scan [address] [place] [address] Patien t Name: TRISHA Rizo Chi Tsang Patidc t : 1944 Patidc t Orderi ng Provid [...] was GFR =50 6.2 mCi Ga-68 PSMA ([facility] [id number] ) was inject ed IV. After [...] 350 (1 x 50 ml bottle of [facility] [id number] ) admini stered 20 minute [...] thy. There is adenop athy in the international operations manager al iliac region and along the [...] Tristan Escalona MD on 2023 12:24 PM [email or web address] [facility] [address] [place], [address], 09/01/2024 12:51:05 09/27/19 25 09/27/2024 MRI, pelvi s, w/o contr ast [address] [place] [address] Patien t Name: TRISHA Mireles OVERMA N [...] 43 throug h 64 of series # [id number]. SPACE- OAR HYDROG EL: No gel is [...] Tristan Escalona MD on 025 4:20 PM [email or web address] [facility] [address], [address], 09/27/2024 19:31:11 Result Notes Documentation Provider Name and Address Organization Details Recorded Time Pet-ct, Skull Base To Mid-thigh Scan : [address] [address] Patient Name: MARTIN LEZAMA Patient : 1945 [...] was GFR =50 6.2 mCi Ga-68 PSMA ([facility] [id number]) was injected IV. After an uptake time of 76 minutes, vertex through midthigh PET imaging was performed. This was followed by a low dose attenuation correction/anatomic localization CT from vertex through the midthigh levels. Urinary tract was opacified with an injection of 50 mL Omnipaque 350 (1 x 50 ml bottle of [facility] [id number]) administered [address] scan. [...] pelvis bilaterally Interpreted By: Tristan Escalona MD IDA GARDNER MD [address] [facility], [place], [address] 09/01/2024 12:51:05 Mri, Pelvis, W/o Contrast : [facility] [address] [place] [address] Patient Name: MARTIN LEZAMA Patient : 1945 [...] uncertain significance Interpreted By: Tristan Escalona MD IDA GARDNER MD [address], [place], [address], [facility] 09/27/2024 19:31:11 Procedures Surgical History Date Name Laterality Status Provider Name and Address Organization Details Recorded Time 09/17/19 25 Prostate marker placement with SpaceOAR completed ZORAIDA GARDNER MD [address], [place], [address], [facility] 09/20/2024 21:49:03 10/16/18 98 mechanical prosthetic aortic valve replacement [facility] 08/17/2024 12:00:45 09/15/18 98 procedure on knee completed Roselyn [facility] 08/17/2024 12:01:01 09/15/18 80 [facility] 08/17/2024 12:01:12 Imaging Results None recorded. [...] Updated DateTime 09/17/2024 187.96 cm Roselyn Rivera [facility] 09/17/2024 10:38:39 Date Recorded Body height Body mass index (BMI) Body weight Body temperature Heart rate Oxygen saturation Oxygen saturation in Arterial blood by Pulse oximetry Systolic And Diastolic Provider Name and Address Organization Details Last Updated DateTime 187.96 cm 25.4 kg/m2 01975.2 9 g 97.7 [degF] 63 /min 92 % 92 % 130/62 mm[Hg] Roselyn Rivera [facility] 5 13:37:37 Date Recorded Body height Body mass index (BMI) Body weight Body temperature Heart rate Oxygen saturation Oxygen saturation in Arterial blood by Pulse oximetry Systolic And Diastolic Provider Name and Address Organization Details Last Updated DateTime 4 187.96 cm 24.9 kg/m2 66659.9 2 g 97.2 [degF] 66 /min 94 % 94 % 102/54 mm[Hg] Roselyn Rivera [facility] 4 11:31:12 Social History Question Answer Notes LastModified by Organizat ion Details LastModified Time Tobacco Smoking Status Former Smoker Roselyn Rivera [facility] 08/17/2024 11:34:36 What Is Your Level Of Caffeine Consumption? Occasional Information not available 08/17/2024 When Did You Quit Smoking? 16+yearssincela stscarlettette Information not available 08/17/2024 What Is Your [...] ICD10 Code Diagnosis IMO Codes Diagnosis Note [id number] FADY LAMB MD [facility] [address] [place] [address] 05/19/2024 13:25:43 05/21/2024 06:07:21 [id number] FADY LAMB MD [facility] [address] [place] [id number] 07/23/2024 11:25:17 07/23/2024 16:41:36 [id number] FADY LAMB MD SURGERY SCHEDULE [address] [place] [address] 08/04/2024 08:27:28 08/04/2024 08:27:53 [id number] FADY LAMB MD [facility] [address] [place] [address] 08/09/2024 14:02:05 08/10/2024 04:08:34 [id number] ZORAIDA GARDNER MD [facility] [address] [place] [address] 08/17/2024 10:55:10 08/30/2024 12:23:43 Malignant neoplasm of prostate [id number] C61 [id number] FADY LAMB MD [facility] [address] [place] [address] 09/03/2024 11:13:19 09/03/2024 16:46:21 [id number] ZORAIDA GARDNER MD [facility] [address] [place] [address] 09/17/2024 09:29:57 09/21/2024 10:50:56 Malignant neoplasm of prostate [id number] C61 [id number] FADY LAMB MD [facility] [address] [place] [address] 02/28/2025 13:16:41 02/28/2025 14:52:53 [id number] ZORAIDA GARDNER MD [facility] [address] [place] [address] 05/09/2025 13:28:35 06/09/2025 11:15:00 Malignant neoplasm of prostate [id number] C61 [id number] 11/28/2025 APPT Health Concerns Section Related Observation LastModified by Organization Detai ls LastModified Time None Recorded Concern Status LastModified by Organization Details LastModified Time None Recorded Advance Directives Directive None Recorded Payers Insurance Date Sequence Insurance Name Policy Number Policy Carroll Covered Member ID Carroll Member ID Guarantor Name 02/25/2025 1 [place] Martin Lezama [id number] Martin Lezama 06/08/2025 2 FOR LIFE () Martin Lezama [id number] Martin Lezaam Notes Date Note Type Note Provider Name and Address Organization Details Recorded Time 08/17/2024 text/html ROS as noted in the HPI 78-year-old with T1c, very high-risk adenocarcinoma of [...] of the prostate by Dr. Lamb found Webster 5+4 = 9 adenocarcinoma involving between 5% and 100% of all 6 cores taken from the right side with 90% grade 4, equals Webster score 4+5=9 adenocarcinoma involving 95% - 100% [...] on 08/09/2024. Mr. 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 His DIVINA score is 25 out of 25 with the use of Viagra. He has regular bowel movements without melena, hematochezia, tenesmus, or frequent diarrhea. 1 benign polyp was resected at his most recent colonoscopy in 2021. He smoked 1 pack of cigarettes daily for 20 years but quit in 1997. ZORAIDA GARDNER MD [address] [facility],[address], [place], [address], [facility] 08/29/2024 11:53:22 05/09/2025 text/html ROS as noted in the [...] but recurred on 05/05/2025. He takes 1-2 [place] 5/325 mg tablets daily, Robaxin 750 mg [...] denies having hot flashes. ZORAIDA GARDNER MD [address], [place], [address], [facility] 06/08/2025 20:29:30
== END 2025-07-07 23:59 | disposition home or self-care (01) ==
LOC: LAB 14:05
PROVIDERS: PCP Family Medicine; Visit Provider Anesthesiology
DX: Z79.01 Long term (current) use of anticoagulants (principal); Z95.2 Presence of prosthetic heart valve
CPT/HCPCS: 36415; 85610

== ENCOUNTER 2025-07-08 06:06 | Day surgery (SDC) | payer MEDICARE, OTHER, SELFPAY ==
[2025-07-05 13:51] VITALS: BMI 25.8
[2025-07-08] VITALS (8 sets, daily range): BP systolic 121–138; BP diastolic 62–72; PULSE 58–74; RESP 14–18; TEMP 36.1–36.6; O2SAT 91–99; BMI 25.8
[2025-07-08 06:47] LABS: POC Glucose,Bedside 156 gm/dL (70-110)
[2025-07-08] MEDS: LACTATED RINGERS 1000ML 1,000 ML 25 ML IV (06:55)
--- NOTE | 2025-07-08 07:14 | P.PNANES_ITS ---
[facility] Disclaimer: The information contained in this section may have been updated after the patient was seen, as this information can be updated by other users. Medical History Compression fracture of L3 vertebra Rheumatoid arthritis Compression fracture of L1 lumbar vertebra Low back pain Prostate CA Strain of lumbar paraspinal muscle Latent tuberculosis Abnormal EKG Sinus bradycardia HLD (hyperlipidemia) HTN (hypertension) MCC current use of anticoagulant Surgical History H/O mechanical aortic valve replacement Family History Other No significant family history Social History (Updated 07/08/25 @ 06:40 by Lizz Neri RN) Smoking Status: Former smoker alcohol intake: never substance use type: denies use current occupational status: retired and other Travel in the last 8 weeks?: None household members: spouse housing: house caffeine: Yes Have you lived/traveled outside US in past 30 days?: No Contact w/someone who lives/traveled outside US past 30 days?: No Exposure to someone with infectious disease in past 14 days?: No Do you have a fever (greater than 100.4 F or 38 C)?: No Have you tested positive for COVID-19?: No Exposed to someone with COVID-19 in past 14 days?: No Do you have a sore throat?: No Do you have a cough?: No Do you have any weakness?: No Are you experiencing any nausea/vomitting?: No Do you have any diarrhea?: No Are you experiencing any unusual bleeding?: No Do you have any muscle aches/pain?: No Do you have any abdominal pain?: No Are you experiencing loss of taste or smell?: No [facility] Anesthesia Checklist Patient Identification Patient Identification: Arm Band and Verbal (Name & ) Structural Data Admitted From: Home Planned Operative Procedure/s: Kyphoplasty Consent for Planned Operative Procedure(s) Verified: Yes Verified Documents: Surgical Consent NPO Status Verified Time NPO: 00:00 Additional verifications Anesthesia Reactions: No Airway Assessment Mallampati Score:: Class II C-Spine Mobility Assessed: Yes TMJ Mobility Assessed: Yes Dentition: Good Dentition Neurological Assessment Level of Consciousness: Awake, Alert and Appropriate Hx Seizures: No Numbness or tingling in extremities: No Anesthesia Plan Anesthesia Risk discussed: Yes Anesthesia Plan: Verified ASA Class: III Anesthesia Type: General
[2025-07-08] MEDS: CEFAZOLIN 2GM VIAL 2 GM (08:25)
[2025-07-08] MEDS: LIDOCAINE 1% W/EPI 1:100,000 20ML VIAL 40 ML ×2 (09:01→09:35)
--- NOTE | 2025-07-08 10:28 | EXP.ANES.I ---
[facility] Anesthesia Record Part I Anesthesia Record I Intake, IV Amount: 1,900 Hydration: Adequate Estimated blood loss (mL): 15 Urine output (mL): 0 Blood Products used (#): none Blood Pressure: 138/67 SaO2: 92 Pulse Rate: 74 Airway Patency: Patent Respiratory Rate: 14 Temperature: 97.4 F Patient is:: Drowsy and Stable Stable to PACU at:: 10:21
--- NOTE | 2025-07-08 10:36 | P.OP_ITS ---
Date of procedure: 07/08/25 Pre-op Diagnosis:: L2 and L5 acute compression fractures Post-op Diagnosis:: Same Procedure performed:: L2 and L5 balloon kyphoplasty Surgeon:: Wu Negro MD Anesthesia: BIGG Estimated blood loss (mL): 5 Clinical Note:: This patient is a pleasant 79-year-old white male who we have been treating for low back pain with a previous compression fracture at L3. We did do his previous kyphoplasty in the office. At that time he did have airway issues and obstructed at the end of the procedure. Patient then was pain-free for a couple weeks. His pain returned suddenly after lifting up a box. We did get a new MRI and it showed new acute compression fractures at L2 and L5. Patient does have a back brace. He continues with conservative measures. He is getting Prolia injections. We have decided to do an L2 and L5 balloon kyphoplasty today. Operative findings:: None Operative note:: Informed consent was obtained and risks and benefits of the procedure was expl ained to the patient. Patient was taken to the OR and was placed prone on the procedure table. The patient was prepped and draped in sterile fashion. I used 2 C arms for AP and lateral view of the L2 vertebral body. The skin and subcutaneous tissues were anesthetized using lidocaine. Bone access trochars were placed through the LEFT and RIGHT pedicle and advanced into the vertebral body. After accessing the vertebral body a balloon was inserted first on the LEFT side followed by the RIGHT side with approximately 3 mL of contrast placed in each balloon with good insufflation. After adequate spread of contrast through the balloon, the balloons were deflated and cement was introduced first on the LEFT side with placement of approximately 3-1/2 mL of cement with good spread throughout the vertebral body and then on the RIGHT side was approximately 3 1/2 mL cement with good spread throughout the vertebral body. There was no extrusion of cement through the lateral clark, anterior or poste rior clark. Also no extrusion through superior or inferior clark. The bone access trochars were removed. I used 2 C arms for AP and lateral view of the L5 vertebral body. The skin and subcutaneous tissues were anesthetized using lidocaine. Bone access trochars were placed through the LEFT and RIGHT pedicle and advanced into the vertebral body. After accessing the vertebral body a balloon was inserted first on the LEFT side followed by the RIGHT side with approximately 3 mL of contrast placed in each balloon with good insufflation. After adequate spread of contrast through the balloon, the balloons were deflated and cement was introduced first on the LEFT side with placement of approximately 3-1/2 mL of cement with good spread throughout the vertebral body and then on the RIGHT side was approximately 3 1/2 mL cement with good spread throughout the vertebral body. There was no extrusion of cement through the lateral clark, anterior or posterior clark. Also no extrusion through superior or inferior clark. The bone access trochars were removed and dressing was placed.The patient was taken back to recovery in stable condition. She had good resolution of her back pain 5 minutes after the procedure. He tolerated the procedure well with no complications and was discharged home neurologically intact. Patient is to continue wearing his back brace. We have also talked about intrathecal therapy. If he does continue to have back pain we will get a new MRI. We did look at the L4 vertebral body there is no compression noted. Will follow-up with him in the clinic in 2 weeks. Condition: stable Disposition: PACU Complications:: None
--- NOTE | 2025-07-08 10:54 | EXP.HP ---
History of Present Illness *Admission Date: 07/08/25 *Reason for visit:: L2 and L5 compression fractures *History of present illness: The patient has acute compression fractures of L2 and L5. He presents for balloon kyphoplasty to both of these vertebral bodies today. [facility] Disclaimer: The information contained in this section may have been updated after the patient was seen, as this information can be updated by other users. Medical History Compression fracture of L3 vertebra Rheumatoid arthritis Compression fracture of L1 lumbar vertebra Low back pain Prostate CA Strain of lumbar paraspinal muscle Latent tuberculosis Abnormal EKG Sinus bradycardia HLD (hyperlipidemia) HTN (hypertension) longterm current use of anticoagulant Surgical History H/O mechanical aortic valve replacement Family History Other No significant family history Social History (Updated 07/08/25 @ 06:40 by Lizz Neri RN) Smoking Status: Former smoker alcohol intake: never substance use type: denies use current occupational status: retired and other Travel in the last 8 weeks?: None household members: spouse housing: house caffeine: Yes Have you lived/traveled outside US in past 30 days?: No Contact w/someone who lives/traveled outside US past 30 days?: No Exposure to someone with infectious disease in past 14 days?: No Do you have a fever (greater than 100.4 F or 38 C)?: No Have you tested positive for COVID-19?: No Exposed to someone with COVID-19 in past 14 days?: No Do you have a sore throat?: No Do you have a cough?: No Do you have any weakness?: No Are you experiencing any nausea/vomitting?: No Do you have any diarrhea?: No Are you experiencing any unusual bleeding?: No Do you have any muscle aches/pain?: No Do you have any abdominal pain?: No Are you experiencing loss of taste or smell?: No Other Medical History Have you received the Flu Vaccine for this season: Yes Have you received the Pneumonia Vaccine: Yes Review of Systems Review of Systems Review of systems:: pertinent systems reviewed and negative unless documented below Meds Home Medications and Allergies Home Medications ?Medication ?Instructions ?Recorded ?Confirmed ?Type tamsulosin 0.4 mg capsule 0.8 mg PO DAILY 09/10/23 07/05/25 History oxybutynin chloride 10 mg 10 mg PO DAILY 09/23/24 07/05/25 History tablet,extended release 24 hr leuprolide acetate (6 month) 45 mg 45 mg IM Q6 12/14/24 07/05/25 History intramuscular syringe kit (Lupron Depot) lisinopril 2.5 mg tablet 2.5 mg PO DAILY #90 tabs 12/20/24 07/05/25 Rx hydrochlorothiazide 25 mg tablet 25 mg PO DAILY #90 tabs 12/27/24 07/05/25 Rx abatacept 125 mg/mL subcutaneous 125 mg SQ .monthy 01/07/25 07/05/25 History auto-injector (Orencia ClickJect) calcium 600 mg (as See Rx Instructions PO BID #60 caps 01/13/25 07/05/25 Rx carbonate)-vitamin D3 12.5 mcg (500 unit) capsule (Calcium with Vit D3) atenolol 50 mg tablet 50 mg PO DAILY BLOOD PRESSURE #90 02/28/25 07/05/25 Rx tabs simvastatin 20 mg tablet 20 mg PO DAILY #90 tabs 03/22/25 07/05/25 Rx methocarbamol 750 mg tablet 750 mg PO TID #90 tabs 03/23/25 07/05/25 Rx glipizide 10 mg tablet 10 mg PO DAILY #90 tabs 05/13/25 07/05/25 Rx folic acid 1 mg tablet 1 mg PO DAILY 05/23/25 07/05/25 History methotrexate sodium 2.5 mg tablet 10 mg PO WEEKLY 05/23/25 07/05/25 History dapagliflozin propanediol 10 mg See Rx Instructions .Route 06/09/25 07/05/25 Rx tablet .COMPLEX #90 tabs warfarin 4 mg tablet See Rx Instructions .Route 06/09/25 07/08/25 Rx .COMPLEX #90 tabs enoxaparin 100 mg/mL subcutaneous 90 mg (0.9 mL) SQ Q12H 06/28/25 07/05/25 Rx syringe (Lovenox) anticoagulation, mechanical heart valve #20 mL denosumab 60 mg/mL subcutaneous 60 mg SQ Q6M 07/05/25 07/05/25 History syringe (Prolia) hydrocodone 5 mg-acetaminophen 325 1 tab PO Q8H PRN pain #90 tabs 07/05/25 07/05/25 Rx mg tablet New Prescriptions to Start Prescriptions: Allergies Allergy/AdvReac Type Severity Reaction Status Date / Time No Known Allergies Allergy Verified 07/08/25 06:34 Exam Data for Last 24 hours Vital signs and Labs for Last 24 Hours: Temp Pulse Resp BP Pulse Ox O2 Del Method 97.8 F 65 17 130/69 91 L Room Air 07/08/25 10:51 07/08/25 10:51 07/08/25 10:51 07/08/25 10:51 07/08/25 10:51 07/08/25 10:51 Laboratory Results - last 24 hr 07/08/25 06:39: POC Glucose 156 H I & O for Last 24 hours: Intake & Output 07/05/25 07/06/25 07/07/25 07/08/25 11:59 11:59 11:59 11:59 Intake Total 0 / 1900 Balance 190 / 190 Weight 196 lb 196 lb *Routine HEENT Exam Head: Present normocephalic Eye: Present PERRL and normal accommodation ENT: Present mucous membranes moist *Routine Respiratory Exam Respiratory: Present CTA bilaterally *Routine Cardiovascular Exam Cardiovascular: Present RRR, Normal S1 and Normal S2 *Routine Abdominal Exam Abdominal: Present soft *Routine Rectal Exam Rectal:: deferred *Routine Genitalia Exam Genitalia:: deferred Routine Back/Spine/Pelvis Exam Back/Spine: Present vertebral tenderness Assessment and Plan *Assessment and plan (1) Compression fracture of L2 lumbar vertebra: Status: Acute Qualifiers: Encounter type: initial encounter Qualified Code(s): S32.020A - Wedge compression fracture of second lumbar vertebra, initial encounter for closed fracture Category: Medical Code(s): S32.020A - Wedge compression fracture of second lumbar vertebra, initial encounter for closed fracture (2) Compression fracture of L5 vertebra: Status: Acute Qualifiers: Encounter type: initial encounter Qualified Code(s): S32.050A - Wedge compression fracture of fifth lumbar vertebra, initial encounter for closed fracture Category: Medical Code(s): S32.050A - Wedge compression fracture of fifth lumbar vertebra, initial encounter for closed fracture Plan Balloon kyphoplasty to L2 and L5
[2025-07-08 13:05] LABS: POC Glucose,Bedside 163 gm/dL (70-110)
[2025-07-11 12:49] VITALS: BP 128/65; PULSE 62; RESP 17; TEMP 36.4; O2SAT 95
--- NOTE | 2025-07-11 12:49 | EXP.ANES.II ---
[facility] Anesthesia Record Part II Anesthesia Record Part II Discharge Time: 11:22 Destination: Surgical Day Care (OP Surgery) PACU nurse assessment reviewed?: Yes Patient Condition:: Good Anesthesia Complications:: None Swallowing reflex intact?: Yes Airway Patency: Patent Cyanosis?: No Blood Pressure: 128/65 SaO2: 95 Respiratory Rate: 17 Pulse Rate: 62 Temperature: 97.6 F Mental Status: Alert & Oriented Pain level:: 0 Nausea and/or vomitting:: None Intake, IV Amount: 0 Hydration: Adequate
== END 2025-07-08 11:25 | disposition home or self-care (01) ==
PROVIDERS: PCP Family Medicine; Visit Provider Anesthesiology
DX: S32.020A Wedge compression fracture of second lumbar vertebra, initial encounter for closed fracture (principal); S32.050A Wedge compression fracture of fifth lumbar vertebra, initial encounter for closed fracture; M80.08XA Age-related osteoporosis with current pathological fracture, vertebra(e), initial encounter for fracture; Z85.46 Personal history of malignant neoplasm of prostate; Z92.3 Personal history of irradiation; E78.5 Hyperlipidemia, unspecified; M06.9 Rheumatoid arthritis, unspecified; I10 Essential (primary) hypertension; Z79.620 Long term (current) use of immunosuppressive biologic; Z79.899 Other long term (current) drug therapy; Z95.2 Presence of prosthetic heart valve
CPT/HCPCS: 22514; 22515; 82962; 99221; C1713; J0690; J1100; J2003; J2004; J2405; J2704; J3010; J7120

== ENCOUNTER 2025-07-11 05:23 | Emergency (ER) | payer MEDICARE, OTHER, SELFPAY ==
--- OUTSIDE RECORDS SUMMARY | 2025-06-06 14:15 | XMS_ITS | Encounter Summary ---
Author Organization [facility] Address [address] [place] [place] [address] Care Team Providers Care Forest Practices Field Coordinator Name Role Phone Abelardo Pappas MD Primary Care Provider +1- [phone] Reason for Visit * Reason Comments Follow-up Encounter Details Date Type Department Care Team (Late st Contact Info) Description 06/06/2025 2:15 PM EDT Office Visit [facility] at [facility] [address] [place] [phone] Justen Jaimes MD [address] [place] [address] Malignant neoplasm of prostate (CMS/HCC) [...] Jaimes MD - 06/06/2025 2:15 PM EDT [facility] at [facility] Division of Hematology and Oncology [...] right side with 90% grade 4, equals Vanderbilt score 4+5=9 adenocarcinoma involving 95% - 100% of 2 out of the 3 cores taken from the area of interest with 70% grade 4, and Vanderbilt score 4+4 = 8 adenocarcinoma involving between [...] - Mr. Lezama was admitted to [facility] from 08/10/2024 through 08/15/2024 for urinary [...] prostate cancer Social History: [place] Social History Tobacco Use Smoking Status [...] MG tablet, , Disp: , Rfl: HYDROcodone-acetaminophen ([place]) 5-325 MG tablet, TAKE ONE TABLET BY [...] 0.3 06/06/2025 As detailed in HPI Imaging: [facility] [address] [place] [address] Patient Name: MARTIN LEZAMA Patient : 1945 [...] was GFR =50 6.2 mCi Ga-68 PSMA ([facility] [id number]) was injected IV. After an uptake time of 76 minutes, vertex through midthigh PET imaging was performed. This was followed by a low dose attenuation correction/anatomic localization CT from vertex through the midthigh levels. Urinary tract was opacified with an injection of 50 mL Omnipaque 350 (1 x 50 ml bottle of [facility] [id number]) administered [address] scan. [...] and discussed over the phone with his instrumentation tech Dr. Kincaid, who recommended bone antiresorptive agent [...] Description 11/28/2025 2:00 PM EDT Office Visit [facility] at [facility] [address] [place] [address] 11/28/2025 3:00 PM EDT Office Visit [facility] at [facility] [address] [place] [address] Justen Jaimes MD [address] [place] [phone] 11/28/2025 3:15 PM EDT Clinical Support [facility] at [facility] [address] [place] [address] Scheduled Orders Name Type Priority Associated Diagnoses [...] - 4.400 ng/mL 06/06/2025 3:01 PM EDT [facility] Comment: This test was performed using Estefania e801 Electrochemiluminescent method. The test method is based on WHO-standardized calibration. Values obtained from different assay methods or manufacturers may not be comparable. External Psa, Free 0.17 ng/mL 2024 3:01 PM EDT [facility] Comment: Test method is based on WHO-standardized calibration using the Estefania E801 analyzer. Free PSA results by different test procedures cannot be directly compared with one another. External Psa- % Free 63 % 05/17 3:01 PM EDT [facility] Comment: PSA ng/mL % FREE PSA Probability of Prostate Cancer % Less than 4.00 N/A 17% 4.0 - 10.0 0-10 56% 10-15 28% 15-20 20% 20-25 16% Greater than 25 8% Greater than 10.0 N/A 49% Blood Venous blood specimen / Unknown 06/06/2025 1:50 PM EDT 06/06/2025 2:21 PM EDT us Justen Jaimes MD LAB BLOOD ORDERABLES Flaca l Result [facility] [address] [place] [address], * (ABNORMAL) Comprehensive Metabolic Panel, Plasma (06/06/2025 1:50 PM EDT) External Glucose 101(H) 74 - 100 mg/dL 06/06/2025 2:55 PM EDT [facility] External BUN 22(H) 6 - 20 mg/dL 06/06/2025 2:55 PM EDT [facility] External Creatinine Blood 0.97 0.70 - 1.20 mg/dL 06/06/2025 2:55 PM EDT [facility] External BUN/Creat Ratio 23(H) 10 - 20 (calc) 06/06/2025 2:55 PM EDT [facility] External Sodium 144 136 - 145 mmol/L 06/06/2025 2:55 PM EDT [facility] External Potassium 3.7 3.4 - 5.0 mmol/L 06/06/2025 2:55 PM EDT [facility] External Chloride 103 98 - 107 mmol/L 06/06/2025 2:55 PM EDT [facility] External Carbon Dioxide (CO2) 27 22 - 31 mmol/L 06/06/2025 2:55 PM T [facility] External Anion Gap (AG) 14 7 - 25 (calc) 06/06/2025 2:55 PM T [facility] External Calcium 10.0 8.6 - 10.2 mg/dL 06/06/2025 2:55 PM T [facility] External Total Protein 6.9 6.4 - 8.3 g/dL 06/06/2025 2:55 PM EDT [facility] External Albumin 4.4 3.5 - 5.2 g/dL 06/06/2025 2:55 PM T [facility] External Globulin 2.5 1.5 - 4.5 025 2:55 PM T [facility] External Albumin/Globulin Ratio 1.8 1.1 - 2.5 (calc) 06/06/2025 2:55 PM T [facility] External Bilirubin Total 0.3 0.1 - 1.0 mg/dL 06/06/2025 2:55 PM T [facility] Comment:NOTE: New reference range. External Alkaline Phosphatase 85 40 - 129 U/L 06/06/2025 2:55 PM T [facility] External AST (SGOT) 25 0 - 40 U/L 06/06/2025 2:55 PM EDT [facility] External ALT (SGPT) 32 0 - 41 U/L 06/06/2025 2:55 PM EDT [facility] External Estimated GFR 80 >=60 06/06/2025 2:55 PM EDT [facility] Comment: NOTE New calculation for GFR (CKD-EPI 2020) is formulated without race adjustment factors at the recommendation of the National Kidney Foundation and [place] Society of Nephrology. This calculation has not been validated in women. For pediatric patients refer to https://www.kidney.org/professionals/KDOQI/gfr_calculatorPed Blood Venous blood specimen / Unknown 06/06/2025 1:50 PM EDT 06/06/2025 2:21 PM EDT us Justen Jaimes MD LAB BLOOD ORDERABLES Flaca ledezma Result [facility] [address] [place] [address], * (ABNORMAL) CBC and Differential (06/06/2025 1:50 PM EDT) External WBC 5.5 3.8 - 10.8 10*3/uL 06/06/2025 4:06 PM EDT [facility] External Red Blood Cell (RBC) 3.67(L) 4.20 - 5.80 10*6/uL 06/06/2025 4:06 PM EDT [facility] External Hemoglobin 10.3(L) 14.0 - 18.0 g/dL 06/06/2025 4:06 PM EDT [facility] External Hematocrit 32.8(L) 40.0 - 52.0 % 06/06/2025 4:06 PM EDT [facility] External MCV 89 80 - 100 fL 06/06/2025 4:06 PM EDT [facility] External MCH 28 26 - 35 pg 06/06/2025 4:06 PM EDT [facility] External MCHC 31(L) 32 - 36 g/dL 06/06/2025 4:06 PM EDT [facility] External RDW 23.0(H) 11.0 - 15.0 % 06/06/2025 4:06 PM EDT [facility] External Mean Platelet Volume 7.3 6.2 - 10.5 fL 06/06/2025 4:06 PM EDT [facility] External Platelet Count (Plt) 326 150 - 400 10*3/uL 06/06/2025 4:06 PM EDT [facility] External Neutrophil# 3.5 1.6 - 8.4 10*3/uL 06/06/2025 4:06 PM EDT [facility] External Lymphocyte# 0.7 0.4 - 5.1 10*3/uL 06/06/2025 4:06 PM EDT [facility] External Absolute Monocyte (Abs Ray) 0.5 0.0 - 1.2 10*3/uL 06/06/2025 4:06 PM EDT [facility] External Eosinophils# 0.7 0.0 - 0.8 10*3/uL 06/06/2025 4:06 PM EDT [facility] External Baso# 0.1 0.0 - 0.3 10*3/uL 06/06/2025 4:06 PM EDT [facility] Comment:Smear reviewed to co nfirm cell morphology. External Neutrophils % 63.9 42.0 - 78.0 % 06/06/2025 4:06 PM EDT [facility] External Lymphocyte % 13.1 11.0 - 47.0 % 06/06/2025 4:06 PM EDT [facility] External Monocyte % 8.8 0.0 - 11.0 % 06/06/2025 4:06 PM EDT [facility] External Eosinophil% 13.2(H) 0.0 - 7.0 % 06/06/2025 4:06 PM EDT [facility] External Basophil % 1.0 0.0 - 3.0 % 06/06/2025 4:06 PM T [facility] External Nucleated RBC%-Auto 0.3 0.0 - 0.9 % 06/06/2025 4:06 PM T [facility] External Nucleated RBC Absolute 0.02 Not Estab. 10*3/uL 06/06/2025 4:06 PM T [facility] Blood Venous blood specimen / Unknown 06/06/2025 1:50 PM EDT 06/06/2025 2:21 PM EDT Justen Jaimes MD LAB BLOOD ORDERABLES Flaca ledezma Result Performing Organization Address City/State/[facility] Co de Phone Number [facility] [address] [place] [address], documented in this encounter Visit Diagnoses Diagnosis Malignant neoplasm of prostate (CMS/HCC)- Primary Malignant neoplasm of prostate Osteopenia of multiple sites documented in this encounter Additional Health Concerns Assessment Noted Time PHQ-9 Depression Total Score: 0 12/28/19 1:21 PM EDT A fall risk assessment has been complete d for the patient 06/06/2025 3:46 PM EDT documented as of this encounter Care Teams Forest Practices Field Coordinator Relationship Specialty Start Date End Date Abelardo Pappas MD [address] [place] [address] PCP - General 06/04/25 documented as of this encounter
--- OUTSIDE RECORDS SUMMARY | 2025-06-06 14:30 | XMS_ITS | Encounter Summary ---
Author Organization [facility] Address [address] [place] [address] Care Team Providers Care Golf Cart Repairer Name Role Phone Abelardo Pappas MD Primary Care Provider +1- [phone] Reason for Visit * Reason Comments Injections * Episode Based Medications (Routine) - Authorized Specialty Diagnoses / Procedures Referred By Contdarien t Referred To Contact Diagnoses Osteopenia of multiple sites Justen Jaimes MD [address] [address] Phone: tel: fax: Justen Jaimes MD [address] [address] Phone: tel: fax: Referral ID Status Reason Start Date Expiration Date V isits Requested Visits Authorized [id number] Authorized 06/13/2025 12/13/2026 1 2 Encounter Details Date Type Department Care Team (Late st Contact Info) Description 06/06/2025 2:30 PM EDT Infusion [facility] [place] at [facility] [address] [place] [address] Osteopenia of multiple sites (Primary [...] from the original note were not included. [id number] Denosumab Injection IMPORTANT WARNING: Denosumab injection products [...] doctor or pharmacist will give you the client operations manager's patient information sheet (Medication Guide) when you begin treatment with denosumab injection products. Read the information carefully and ask your doctor or pharmacist if you have any questions. You can also visit the Food and Drug Administration (FDA) website (https://www.fda.gov/Drugs/DrugSafety/tre707400.htm) (or the client operations manager's website) to obtain the Medication Guide. Talk [...] or doctor for a copy of the client operations manager's information for the patient. Are there OTHER [...] of all of the prescription and nonprescription (iovw-pos-oalaprs) medicines, vitamins, minerals, and dietary supplements you [...] or pharmacist about specific clinical use. The [place] [employer]System [employer]. represents that the information provided hereunder was formulated with a reasonable standard of care, and in conformity with professional standards in the field. The [place] [employer]System [employer]. makes no representations or warranties, express or implied, including, but not limited to, any implied warranty of merchantability and/or fitness for a particular purpose, with respect to such information and specifically disclaims all such warranties. Users are advised that decisions regarding drug therapy are complex medical decisions requiring the independent, informed decision of an appropriate health health care coach, and the information is provided for informational purposes only. The entire monograph for a drug should be reviewed for a thorough understanding of the drug's actions, uses and side effects. The [place] [employer] does not endorse or recommend the use of any drug.The information is not a substitute for medical care. AHFS?? Patient Medication Information?. ?? Copyright, 2023. The [place] [employer]-System Pharmacists??, [address], [address], [place], [place]. All Rights Reserved. Duplication for commercial use must be authorized by [facility]. AHFS?? Patient Medication Information?. ?? Copyright, 2024 documented in this encounter Plan of Treatment Upcoming Encounters Date Type Department Care Team (Late st Contact Info) Description 11/28/2025 2:00 PM EDT Office Visit [facility] at [address] [address] 11/28/2025 3:00 PM EDT Office Visit [facility] at [address] [phone] Justen Jaimes MD [address] [place] [phone] 11/28/2025 3:15 PM EDT Clinical Support [facility] at [address] [address] documented as of this encounter Visit Diagnoses [...] documented as of this encounter Care Teams Golf Cart Repairer Relationship Specialty Start Date End Date Abelardo Pappas MD [address] [place] [address] PCP - General 06/04/25 documented as of this encounter
[2025-07-11 05:21] VITALS: BP 188/83; PULSE 59; RESP 16; TEMP 36.9; O2SAT 95; BMI 24.3
--- NOTE | 2025-07-11 05:26 | [facility].EDGENADL ---
Discharge Plan Disposition Patient Disposition: Home, Self-Care Condition: Good Prescriptions Prescriptions: No Action oxybutynin chloride 10 mg tablet extended release 24hr 10 mg PO DAILY Patient Comments: TAKE ONE TABLET BY MOUTH EVERY DAY FOR urine urgency tamsulosin 0.4 mg capsule 0.8 mg PO DAILY lisinopril 2.5 mg tablet 2.5 mg PO DAILY Qty: 90 3RF methotrexate sodium 2.5 mg tablet 10 mg PO WEEKLY Rx Instructions: Take 4 tablets weekly each Friday AM folic acid 1 mg tablet 1 mg PO DAILY hydrochlorothiazide 25 mg tablet 25 mg PO DAILY Qty: 90 3RF calcium carbonate-vitamin D3 [Calcium 600 with Vitamin D3] 600 mg-12.5 mcg (500 unit) capsule See Rx Instructions PO BID Qty: 60 5RF Rx Instructions: orally twice a day; 1 capsule BID atenolol 50 mg tablet 50 mg PO DAILY Qty: 90 3RF simvastatin 20 mg tablet 20 mg PO DAILY Qty: 90 0RF glipizide 10 mg tablet 10 mg PO DAILY Qty: 90 0RF dapagliflozin propanediol 10 mg tablet See Rx Instructions .ROUTE .COMPLEX Qty: 90 0RF Dose Instruction: TAKE 1 TABLET DAILY Rx Instructions: TAKE 1 TABLET DAILY warfarin 4 mg tablet See Rx Instructions .ROUTE .COMPLEX Qty: 90 0RF Dose Instruction: TAKE 1 TABLET DAILY Rx Instructions: TAKE 1 TABLET DAILY enoxaparin [Lovenox] 100 mg/mL syringe 90 mg SQ Q12H Qty: 20 0RF hydrocodone-acetaminophen 5-325 mg tablet 1 tab PO Q8H PRN (Reason: pain) Qty: 90 0RF Lupron Depot (6 Month) 45 mg Syringe Kit 45 mg IM Q6 Rx Instructions: EVERY 6 MONTHS Orencia ClickJect 125 mg/mL auto-injector 125 mg SQ .monthy methocarbamol 750 mg tablet 750 mg PO TID Qty: 90 2RF Prolia 60 mg/mL Syringe 60 mg SQ Q6M Referrals Follow up/Referrals: Provider,Referral, MD [Primary Care Provider, Medical] - See instructions Activity Restrictions/Add. Instructions Additional Instructions/Restrictions: Please follow-up with your primary care provider. Please return to the emergency department if you develop any new or worsening symptoms or become concerned for your health. Clinical Impressions Clinical Impression: Post-op bleeding Instructions Patient Instructions: DI for Laceration Repair Print Language Print Language: [place] Discharge ED Provider: Ronny Collins General Adult HPI General Chief complaint: Wound/Laceration Stated complaint: Bleeding Time Seen by Provider: 07/11/25 05:26 History of Present Illness HPI narrative: 79-year-old male with history of mechanical aortic valve on warfarin presents for bleeding from his low back. He had a kyphoplasty performed by Dr. Negro recently. He has been on Lovenox during the surgery and is transitioning back to warfarin currently. Surgery was several days ago. He woke up tonight and noticed blood in the bed. They tried to get the bleeding to stop at home but were unsuccessful. Related Data Home Medications ?Medication ?Instructions ?Recorded ?Confirmed tamsulosin 0.4 mg capsule 0.8 mg PO DAILY 09/10/23 07/11/25 oxybutynin chloride 10 mg 10 mg PO DAILY 09/23/24 07/11/25 tablet,extended release 24 hr leuprolide acetate (6 month) 45 mg 45 mg IM Q6 12/14/24 07/11/25 intramuscular syringe kit (Lupron Depot) abatacept 125 mg/mL subcutaneous 125 mg SQ .monthy 01/07/25 07/11/25 auto-injector (Orencia ClickJect) folic acid 1 mg tablet 1 mg PO DAILY 05/23/25 07/11/25 methotrexate sodium 2.5 mg tablet 10 mg PO WEEKLY 05/23/25 07/11/25 denosumab 60 mg/mL subcutaneous 60 mg SQ Q6M 07/05/25 07/11/25 syringe (Prolia) Previous Rx's ?Medication ?Instructions ?Recorded lisinopril 2.5 mg tablet 2.5 mg PO DAILY #90 tabs 12/20/24 hydrochlorothiazide 25 mg tablet 25 mg PO DAILY #90 tabs 12/27/24 calcium 600 mg (as See Rx Instructions PO BID #60 caps 01/13/25 carbonate)-vitamin D3 12.5 mcg (500 unit) capsule (Calcium with Vit D3) atenolol 50 mg tablet 50 mg PO DAILY BLOOD PRESSURE #90 02/28/25 tabs simvastatin 20 mg tablet 20 mg PO DAILY #90 tabs 03/22/25 methocarbamol 750 mg tablet 750 mg PO TID #90 tabs 03/23/25 glipizide 10 mg tablet 10 mg PO DAILY #90 tabs 05/13/25 dapagliflozin propanediol 10 mg See Rx Instructions .Route 06/09/25 tablet .COMPLEX #90 tabs warfarin 4 mg tablet See Rx Instructions .Route 06/09/25 .COMPLEX #90 tabs enoxaparin 100 mg/mL subcutaneous 90 mg (0.9 mL) SQ Q12H 06/28/25 syringe (Lovenox) anticoagulation, mechanical heart valve #20 mL hydrocodone 5 mg-acetaminophen 325 1 tab PO Q8H PRN pain #90 tabs 07/05/25 mg tablet Allergies Allergy/AdvReac Type Severity Reaction Status Date / Time No Known Allergies Allergy Verified 07/11/25 14:15 [facility] Disclaimer: The information contained in this section may have been updated after the patient was seen, as this information can be updated by other users. 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 Surgical History H/O mechanical aortic valve replacement Family History Other No significant family history Social History Smoking Status: Never smoker alcohol intake: never substance use type: denies use current occupational status: retired and other Travel in the last 8 weeks?: None household members: spouse housing: house caffeine: Yes Other Medical History Have you received the Flu Vaccine for this season: Yes Have you received the Pneumonia Vaccine: Yes ROS Obtained: Yes All systems reviewed & no additional complaints except as documented Physical Exam General General appearance: alert and in no apparent distress Head Head exam: atraumatic and normocephalic Eye Eye exam: Present normal appearance, PERRL and EOMI ENT ENT exam: Present normal oropharynx and normal external ear exam Neck Neck exam: Present normal inspection and full ROM Chest Chest inspection: Present normal inspection and symmetric chest wall rise; Absent tenderness Respiratory Respiratory exam: Present normal lung sounds bilaterally; Absent respiratory distress Cardiovascular Cardiovascular exam: Present regular rate and normal rhythm Abdominal Exam Abdominal exam: Present soft; Absent distention, tenderness or guarding Extremities Exam Extremities exam: Present normal inspection; Absent edema or joint swelling Back Exam Back exam: Present other (Oozing from surgical wound site over the lumbar spine) Neurological Exam Neurological exam: Present alert and oriented X3; Absent motor sensory deficit Psychiatric Psychiatric exam: Present normal affect and normal mood Skin Skin exam: Present warm, dry and normal color Lymphatic Lymphatic Findings: no adenopathy Medical Decision Making Medical Records Medical records reviewed: Yes I reviewed the patient's medical records. Screening: Per USPSTF and CDC recommendations, given the prevalence of disease in our region, it is our hospital?s policy to screen for HIV and viral Hepatitis for all patients aged 18 and over and those with ongoing risk factors. Hugo Inquiry Pt receiving controlled substance: No Hugo was queried for this patient: No Vital Signs: 07/11/25 05:21 07/11/25 05:31 07/11/25 06:31 Temperature 98.4 F 98.5 F Temperature Source Oral Oral Pulse Rate 57 L 74 Pulse Rate [Left Radial] 59 L Respiratory Rate 16 18 Blood Pressure 156/60 H 145/78 H Blood Pressure [Right Arm] 188/83 H Blood Pressure Mean 92 Blood Pressure Mean [Right Arm] 118 Blood Pressure Source [Right Arm] Automatic Cuff Blood Pressure Position [Right Arm] Supine 02 Sat by Pulse Oximetry 95 90 L Oxygen Delivery Method Room Air Room Air Lab Data Lab results reviewed: Yes I reviewed the patient's lab results. Lab Results 07/11/25 05:25: WBC 6.3, RBC 3.39 L, Hgb 10.1 L, Hct 31.8 L, MCV 93.8, MCH 29.8, MCHC 31.8, RDW 22.3 H, Plt Count 293, MPV 9.2, Neut % (Auto) 71.7, Lymph % (Auto) 7.9 L, [place] % (Auto) 7.9, Eos % (Auto) 10.6, Baso % (Auto) 0.6, Neut # (Auto) 4.5, Lymph # (Auto) 0.5 L, [place] # (Auto) 0.5, Eos # (Auto) 0.7 H, Baso # (Auto) 0.0, Total Counted 100, Neutrophils % (Manual) 73, Lymphocytes % (Manual) 7 L, Monocytes % (Manual) 8, Eosinophils % (Manual) 12 H, Platelet Estimate Normal, RBC Morphology Normal, PT 13.0 H, INR 1.19 H, APTT 29.5, Sodium 138, Potassium 4.0, Chloride 101, Carbon Dioxide 31 H, Anion Gap 10.0, BUN 20, Creatinine 0.80, Estimated Creat Clear 75, Estimated GFR 94, Est GFR ( Amer) 113, Glucose 143 H, Calcium 8.9, Total Bilirubin 0.6, AST 46, ALT 69, Alkaline Phosphatase 83, Total Protein 7.5, Albumin 4.4, Globulin 3.1, Albumin/Globulin Ratio 1.4, HCV Ab PAOLO w/Rflx PCR Qn Negative, HIV Ag/Ab Combo Qual Negative 07/11/25 05:25 07/11/25 05:25 Orders (Tests/Meds): ORDERS Category Date Time Status CBC w/Auto Diff [Complete Blood Count Auto Diff] Stat Lab 07/11/25 05:25 Completed CMP [Comprehensive Metabolic Panel] Stat Lab 07/11/25 05:25 Completed HIV Combo Stat Lab 07/11/25 05:25 Completed Hepatitis C Ab Qual. W/ RFX Stat Lab 07/11/25 05:25 Completed INR [Prothrombin Time INR] Stat Lab 07/11/25 05:25 Completed PTT [Activated Partial Thrombo Time] Stat Lab 07/11/25 05:25 Completed Medical Decision Narrative: 79-year-old male with recent kyphoplasty, currently on Lovenox and transitioning back to warfarin for his mechanical aortic valve, presents from bleeding from one of the surgical incisions from his recent kyphoplasty. History was obtained via interactive discussion with patient, family, EMS. On arrival, patient is [afebrile, hemodynamically stable, satting appropriately, alert, oriented x4, GCS 15], moving all extremities spontaneously. Full physical exam performed and significant for blood oozing from one of the low back incisions. The area is well-appearing, no evidence of infection or dehiscence. Differential includes but is not limited to hematoma, coagulopathy, blood loss anemia. The area was cleaned up, hemostatic gauze was placed over the wound and a compression wrap was placed. Workup initiated including basic labs. On re-evaluation, patient [remains afebrile, HD stable.] The bleeding has stopped on reassessment. Laboratory workup independently interpreted by me and significant for anemia with hemoglobin 10.1, similar to baseline. INR not yet within range for patient.. Imaging was considered, but deemed unnecessary due to no physical exam findings of infection or trauma. Bleeding has ceased. Given patient history, exam and workup, patient's presentation most likely represents postoperative bleeding in the setting of anticoagulation. Patient was discharged in stable condition with return precautions.. Procedures Risk/Benefits of Procedure(s) Were Explained: Yes Critical Care Critical Care Time Critical Care Time: No
--- OUTSIDE RECORDS SUMMARY | 2025-07-11 05:29 | XMS_ITS | Clinical Summary ---
Author Organization [facility] Address [address] [place] [address] Care Team Providers Care Health Information Specialist Name Role Phone Provider, No Known Primary [...] - 04/29/2025 3:55 PM EDT Hospital Encounter [address] [place] [id number] Serafin Villalpando MD Frandina, John L, MD [...] 27(H) <22 ng/L 04/29/2025 1:19 PM EDT [facility] Blood Venipuncture / Unknown 04/29/2025 12:34 PM EDT 04/29/2025 12:57 PM EDT Narrative [facility] - 04/29/2025 1:19 PM EDT [...] ORDERABLES Final Re sult Performing Organization Address [facility] Co de Phone Number [facility]
[address] [place] [address], * (ABNORMAL) POC Glucose Once (04/29/2025 11:16 AM EDT) Only the most recent of3 resultswithin the time period is included. Glucose 185(H) 70 - 130 mg/dL 04/29/2025 11:17 AM EDT [facility] Blood 04/29/2025 11:1 6 AM EDT 04/29/2025 11:17 AM EDT Clementina Moreno MD POINT OF CARE TEST ORDERABLES Final Result Performing Organization Address [facility] de Phone Number [facility]
[address] [place] [address], * (ABNORMAL) Protime-INR (04/29/2025 4:30 AM EDT) Only the most recent of2 resultswithin the time period is included. Protime 15.2 12.2 - 15.3 Seconds 04/29/2025 5:18 AM EDT [facility] INR 1.13(H) 0.89 - 1.12 04/29/2025 5:18 AM EDT [facility] Blood Venipuncture / Unknown 04/29/2025 4:30 AM EDT 04/29/2025 4:59 AM EDT Tristan Carr MD LAB BLOOD ORDERABLES Final Re sult Performing Organization Address [facility] Co de Phone Number [facility]
[address] [place] [address], [place] [phone] * (ABNORMAL) CBC (No Diff) (04/29/2025 4:30 AM EDT) WBC 7.99 3.40 - 10.80 10*3/mm3 04/29/2025 5:10 AM EDT [facility] RBC 3.09(L) 4.14 - 5.80 10*6/mm3 04/29/2025 5:10 AM EDT [facility] Hemoglobin 8.7(L) 13.0 - 17.7 g/dL 04/29/2025 5:10 AM EDT [facility] Hematocrit 28.5(L) 37.5 - 51.0 % 04/29/2025 5:10 AM EDT [facility] MCV 92.2 79.0 - 97.0 fL 04/29/2025 5:10 AM EDT [facility] MCH 28.2 26.6 - 33.0 pg 04/29/2025 5:10 AM EDT [facility] MCHC 30.5(L) 31.5 - 35.7 g/dL 04/29/2025 5:10 AM EDT [facility] RDW 19.8(H) 12.3 - 15.4 % 04/29/2025 5:10 AM EDT [facility] RDW-SD 66.5(H) 37.0 - 54.0 fl 04/29/2025 5:10 AM EDT [facility] MPV 9.1 6.0 - 12.0 fL 04/29/2025 5:10 AM EDT [facility] Platelets 252 140 - 450 10*3/mm3 04/29/2025 5:10 AM EDT [facility] Blood Venipuncture / Unknown 04/29/2025 4:30 AM EDT 04/29/2025 4:59 AM EDT us Vaishali Priest WORKERS COMPENSATION COORDINATOR LAB BLOOD ORDERABLES Final Re sult [facility]
[address] [place] [address], * (ABNORMAL) Comprehensive Metabolic Panel (04/29/2025 4:30 AM EDT) Only the most recent of2 resultswithin the time period is included. Glucose 123(H) 65 - 99 mg/dL 04/29/2025 5:33 AM EDT [facility] BUN 18.7 8.0 - 23.0 mg/dL 04/29/2025 5:33 AM EDT [facility] Creatinine 0.86 0.76 - 1.27 mg/dL 04/29/2025 5:33 AM EDT [facility] Sodium 139 136 - 145 mmol/L 04/29/2025 5:33 AM EDT [facility] Potassium 3.7 3.5 - 5.2 mmol/L 04/29/2025 5:33 AM EDT [facility] Chloride 103 98 - 107 mmol/L 04/29/2025 5:33 AM EDT [facility] CO2 26.0 22.0 - 29.0 mmol/L 04/29/2025 5:33 AM EDT [facility] Calcium 9.1 8.6 - 10.5 mg/dL 04/29/2025 5:33 AM EDT [facility] Total Protein 6.0 6.0 - 8.5 g/dL 04/29/2025 5:33 AM EDT [facility] Albumin 3.9 3.5 - 5.2 g/dL 04/29/2025 5:33 AM EDT [facility] ALT (SGPT) 33 1 - 41 U/L 04/29/2025 5:33 AM EDT [facility] AST (SGOT) 28 1 - 40 U/L 04/29/2025 5:33 AM EDT [facility] Alkaline Phosphatase 70 39 - 117 U/L 04/29/2025 5:33 AM EDT [facility] Total Bilirubin 0.4 0.0 - 1.2 mg/dL 04/29/2025 5:33 AM EDT [facility] Globulin 2.1 gm/dL 04/29/2025 5:33 AM EDT [facility] Comment:Calculated Result A/G Ratio 1.9 g/dL 04/29/2025 5:33 AM EDT [facility] BUN/Creatinine Ratio 21.7 7.0 - 25.0 04/29/2025 5:33 AM EDT [facility] Anion Gap 10.0 5.0 - 15.0 mmol/L 04/29/2025 5:33 AM EDT [facility] eGFR 89.2 >60.0 mL/min/1.7 3 04/29/2025 5:33 AM EDT [facility] Blood Venipuncture / Unknown 04/29/2025 4:30 AM EDT 04/29/2025 4:59 AM EDT Narrative [facility] - 04/29/2025 5:33 AM EDT [...] race as a factor us Vaishali Priest WORKERS COMPENSATION COORDINATOR LAB BLOOD ORDERABLES Final Re sult [facility]
[address] [place] [address], * (ABNORMAL) Blood Gas, Venous With Co-Ox (04/28/2025 8:46 PM EDT) Site Nurse/Dr Johnson 04/28/2025 8:46 PM EDT [facility] pH, Venous 7.393 7.310 - 7.410 pH Units 04/28/2025 8:46 PM EDT [facility] pCO2, Venous 50.3 41.0 - 51.0 mm Hg 04/28/2025 8:46 PM EDT [facility] pO2, Venous 28.0 27.0 - 53.0 mm Hg 04/28/2025 8:46 PM EDT [facility] HCO3, Venous 30.6(H) 22.0 - 28.0 mmol/L 04/28/2025 8:46 PM EDT [facility] Base Excess, Venous 4.9(H) -2.0 - 2.0 mmol/L 04/28/2025 8:46 PM EDT [facility] Hemoglobin, Blood Gas 9.6(L) 13.5 - 17.5 g/dL 04/28/2025 8:46 PM EDT [facility] Oxyhemoglobin Venous 44.5 % 04/15 8:46 PM EDT [facility] Comment:84 Value below refer ence range Methemoglobin Venous 0.5 % 04/15 8:46 PM EDT [facility] Carboxyhemoglobin Venous 1.6 % 04/28/2025 8:46 PM EDT [facility] CO2 Content 32.2 22 - 33 mmol/L 04/28/2025 8:46 PM EDT [facility] Temperature 37.0 04/28/2025 8:46 PM EDT [facility] Barometric Pressure for Blood Gas 04/28/2025 8:46 PM EDT [facility] Comment:N/A Modality Nasal Cannula 04/28/2025 8:46 PM EDT [facility] FIO2 24 % 04/28/2025 8:46 PM EDT [facility] Rate 0 Breaths/ minute 04/28/2025 8:46 PM EDT [facility] PIP 0 cmH2O 04/28/2025 8:46 PM EDT [facility] Comment:Meter: [id number] Asset Protection Specialist: [id number] IPAP 0 04/28/2025 8:46 PM EDT [facility] EPAP 0 04/28/2025 8:46 PM EDT [facility] Venous Blood 04/28/2025 8:46 PM EDT 04/28/2025 8:46 PM EDT Tristan Carr MD LAB BLOOD ORDERABLES Final Re sult Performing Organization Address City/[facility]/ZIP Co de Phone Number [facility]
[address] * (ABNORMAL) High Sensitivity Troponin T 1Hr (04/28/2025 6:59 PM EDT) HS Troponin T 25(H) <22 ng/L 04/28/2025 7:30 PM EDT [facility] Troponin T Numeric Delta 10(HH) Abnormal if >/=3 ng/L 04/28/2025 7:30 PM EDT [facility] Blood Venipuncture / Unknown 04/28/2025 6:59 PM EDT 04/28/2025 7:02 PM EDT Narrative [facility] - 04/28/2025 7:30 PM EDT [...] ORDERABLES Final R esult Performing Organization Address City/[facility]/ZIP Co de Phone Number [facility]
[address] [place] [address], * XR Chest 1 View (04/28/2025 6:16 PM EDT) Anatomical Region Laterality Modality Body N/A Radiographic Nubia ging 04/28/2025 6:25 PM EDT Impressions 04/28/2025 6:26 PM EDT Impression: No acute cardiopulmonary disease. Electronically Signed: Connor Hall MD 04/28/2025 6:26 PM EDT Workstation ID: [id number] Narrative 04/28/2025 6:26 PM EDT XR CHEST [...] MD 04/28/2025 6:26 PM EDT Workstation ID: [id number] Serafin Villalpando MD IM DIAGNOSTIC IMAGING ORDER [...] Hold for add-ons. 04/28/2025 5:45 PM EDT [facility] Comment:Auto resulted. Blood Line / Unknown 04/28/2025 5: 33 PM EDT 04/28/2025 5:38 PM EDT Serafin Villalpando MD LAB BLOOD ORDER ONLY Final R esult [facility]
[address] [place] [address], * Gold Top - [facility] (04/28/2025 5:33 PM EDT) Extra Tube Hold for add-ons. 04/28/2025 5:45 PM EDT [facility] Comment:Auto resulted. Blood Line / Unknown 04/28/2025 5: 33 PM EDT 04/28/2025 5:38 PM EDT Serafin Villalpando MD LAB BLOOD ORDER ONLY Final R esult Performing Organization Address City/[facility]/ZIP Co de Phone Number [facility]
[address] [place] [address], * Green Top (Gel) (04/28/2025 5:33 PM EDT) [facility] Extra Tube Hold for add-ons. 04/28/2025 5:45 PM EDT [facility] Comment:Auto resulted. Blood Line / Unknown 04/28/2025 5: 33 PM EDT 04/28/2025 5:38 PM EDT Serafin Villalpando MD LAB BLOOD ORDER ONLY Final R esult Performing Organization Address [facility]/ZIP Co de Phone Number [facility]
[address] [place] [address], * (ABNORMAL) CBC Auto Differential (04/28/2025 5:33 PM EDT) [facility] WBC 5.30 3.40 - 10.80 10*3/mm3 04/28/2025 5:41 PM EDT [facility] RBC 3.60(L) 4.14 - 5.80 10*6/mm3 04/28/2025 5:41 PM EDT [facility] Hemoglobin 10.3(L) 13.0 - 17.7 g/dL 04/28/2025 5:41 PM EDT [facility] Hematocrit 33.3(L) 37.5 - 51.0 % 04/28/2025 5:41 PM EDT [facility] MCV 92.5 79.0 - 97.0 fL 04/28/2025 5:41 PM EDT [facility] MCH 28.6 26.6 - 33.0 pg 04/28/2025 5:41 PM EDT [facility] MCHC 30.9(L) 31.5 - 35.7 g/dL 04/28/2025 5:41 PM EDT [facility] RDW 19.7(H) 12.3 - 15.4 % 04/28/2025 5:41 PM [facility] RDW-SD 66.3(H) 37.0 - 54.0 fl 04/28/2025 5:41 PM [facility] MPV 8.5 6.0 - 12.0 fL 04/28/2025 5:41 PM [facility] Platelets 245 140 - 450 10*3/mm3 04/28/2025 5:41 PM [facility] Neutrophil % 72.1 42.7 - 76.0 % 04/28/2025 5:41 PM [facility] Lymphocyte % 10.4(L) 19.6 - 45.3 % 04/28/2025 5:41 PM [facility] Monocyte % 7.5 5.0 - 12.0 % 04/28/2025 5:41 PM [facility] Eosinophil % 7.9(H) 0.3 - 6.2 % 04/28/2025 5:41 PM [facility] Basophil % 0.8 0.0 - 1.5 % 04/28/2025 5:41 PM [facility] Immature Grans % 1.3(H) 0.0 - 0.5 % 04/28/2025 5:41 PM [facility] Neutrophils, Absolute 3.82 1.70 - 7.00 10*3/mm3 04/28/2025 5:41 PM [facility] Lymphocytes, Absolute 0.55(L) 0.70 - 3.10 10*3/mm3 04/28/2025 5:41 PM [facility] Monocytes, Absolute 0.40 0.10 - 0.90 10*3/mm3 04/28/2025 5:41 PM [facility] Eosinophils, Absolute 0.42(H) 0.00 - 0.40 10*3/mm3 04/28/2025 5:41 PM [facility] Basophils, Absolute 0.04 0.00 - 0.20 10*3/mm3 04/28/2025 5:41 PM EDT [facility] Immature Grans, Absolute 0.07(H) 0.00 - 0.05 10*3/mm3 04/28/2025 5:41 PM EDT [facility] nRBC 0.0 0.0 - 0.2 /100 WBC 04/28/2025 5:41 PM EDT [facility] Blood Line / Unknown 04/28/2025 5: 33 PM EDT 04/28/2025 5:38 PM EDT us Serafin Villalpando MD LAB BLOOD ORDERABLES Final R esult [facility]
[address] [place] [address], * Lavender Top (04/28/2025 5:33 PM EDT) Extra Tube hold for add-on 04/28/2025 5:45 PM EDT [facility] Comment:Auto resulted Blood Line / Unknown 04/28/2025 5: 33 PM EDT 04/28/2025 5:38 PM EDT us Serafin Villalpando MD LAB BLOOD ORDER ONLY Final R esult [facility]
[address] [place] [address], * Light Blue Top (04/28/2025 5:33 PM EDT) Extra Tube Hold for add-ons. 04/28/2025 5:45 PM EDT [facility] Comment:Auto resulted Blood Line / Unknown 04/28/2025 5: 33 PM EDT 04/28/2025 5:38 PM EDT us Serafin Villalpando MD LAB BLOOD ORDER ONLY Final R esult Performing Organization Address [facility]/ZIP Co de Phone Number [facility]
[address] [place] [address], * BNP (04/28/2025 5:33 PM EDT) proBNP 420.5 0.0 - 1,800.0 pg/mL 04/28/2025 6:03 PM EDT [facility] Blood Line / Unknown 04/28/2025 5: 33 PM EDT 04/28/2025 5:38 PM EDT Narrative [facility] - 04/28/2025 6:03 PM EDT [...] ORDERABLES Final R esult Performing Organization Address [facility] Co de Phone Number [facility]
[address] [place] [address], * Telemetry Scan (04/28/2025 5:31 PM EDT) Only the most recent of2 resultswithin the time period is included. [facility] Onbase ECG ORDERABLES Final Result from Last 3 Months Insurance [employer] MED[employer]ARE A & B Advance Directives * CPR (Attempt to Resuscitate) (Latest Code Status on File) Date Activated Date Inactivated Comments 04/28/2025 9:40 PM 04/29/2025 6:01 PM Question Answer Comments Code Status (Patient has no pulse and is not breathing): CPR (Attempt to Resuscitate) Medical Interventions (Patie nt has pulse or is breathing): Full Support Care Teams Health Information Specialist Relationship Specialty Start Date End Date Provider, No Known [facility] [place] [address] PCP - General 04/28/25
--- OUTSIDE RECORDS SUMMARY | 2025-07-11 05:29 | XMS_ITS | Clinical Summary ---
Author Organization [email or web address] ([place], [place], [place], [place]) Address [address] [place] [address] Care Team Providers Care Pt Escort Name Role Phone Tristan Billings DO Primary Care Provider [phone] Allergies No known active allergies Medications glipiZIDE [...] any time in the past 12 m [facility], were you homeless or [...] living situation today? I have a [facility] place to live 08/10/2024 Think about [...] Do you speak a language other than [place]isian at [facility]? 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
--- OUTSIDE RECORDS SUMMARY | 2025-07-11 05:29 | XMS_ITS | Data Portability ---
Author Organization [facility] & [facility] ADMIN Address [address] [place] [id number] Care Team Providers Care [place] Name Role Phone MAXIMILIAN TORRES Primary Care Provider AURELIA DEL CASTILLO Stiff Neck Loader [phone] FADY LAMB Urologist EMERY PIEDRA Embroidery Machine Operator GAYLA SANCHEZ Primary Care Provider Assessment No assessment recorded. Plan of Treatment Reminders Order Date Submit Date Provider Last Modified By Organization Details Last Modified Time Details Appointments None recorded. Lab CBC w/ auto diff 2024 025 [facility], [address] [facility], [place], [address], 5 14:21:17 hepatic function panel, serum 2024 025 [email or web address] [facility], [address] [place], [address], 5 19:55:37 CBC w/ auto diff 2024 025 [facility], [address] [facility], [place], [address], 5 14:27:12 hepatic function panel, serum 2024 025 [email or web address] [id number] [facility], [address] , [place], [address], 5 13:17:52 CBC w/ auto diff 2023 [facility], [address] , [place], [address], 4 11:59:13 hepatic function panel, serum 2023 [facility], [address] , [place], [address], 4 11:55:46 CBC w/ auto diff 2023 [facility], [address] , [place], [address], 4 10:11:21 hepatic function panel, serum 2023 [facility], [address] , [place], [address], 10:49:19 Referral None recorded. Procedures None recorded. Surgeries None recorded. Imaging None recorded. Medication Orders isoniazid 300 mg tablet 2023 [facility], [facility] [place], [address], 10:48:31 Patient TargetsNo targets recorded. Patient InstructionsNo instructions recorded. Reason for Referral None Reported. Results Created Date Observation Date Name Description Value Unit Range Abnormal Flag Note LastModifiedBy Organization Detail LastModifiedTime 07/23/2007/23/2024 CBC AUTO W DIFF WBC 11.5 K/uL 4.0-10 .5 high Not Available [facility] ([facility]) [address] , [place], [address], 07/23/2024 10:11:21 07/23/20 24 07/23/2024 CBC AUTO W DIFF RBC 3.4 M/mm3 4.7-6. 1 low Not Available [facility] ([facility]) [address], [place], [address], 07/23/2024 10:11:21 07/23/20 24 07/23/2024 CBC AUTO W DIFF HGB 11.0 gm/dL 13.5-1 8.0 low Not Available [facility] ([facility]) [address], [place], [address], 07/23/2024 10:11:21 07/23/20 24 07/23/2024 CBC AUTO W DIFF HCT 34.7 % 42.0-5 2.0 low Not Available [facility] ([facility]) [address], [place], [address], 07/23/2024 10:11:21 07/23/20 24 07/23/2024 CBC AUTO W DIFF MCV 100.9 fL 78-100 high Not Available [facility] ([facility]) [address], [place], [address], 07/23/2024 10:11:21 07/23/20 24 07/23/2024 CBC AUTO W DIFF MCH 32.0 pg 27-31 high Not Available [facility] ([facility]) [address], [place], [address], 07/23/2024 10:11:21 07/23/20 24 07/23/2024 CBC AUTO W DIFF MCHC 31.7 g/dL 32-36 low Not Available [facility] ([facility]) [address] , [place], [address], 07/23/2024 10:11:21 07/23/20 24 07/23/2024 CBC AUTO W DIFF RDW 16.3 % 11.5-1 4.0 high Not Available [facility] ([facility]) [address] , [place], [address], 07/23/2024 10:11:21 07/23/20 24 07/23/2024 CBC AUTO W DIFF platelet count 310 K/uL 150-45 0 Not Available [facility] ([facility]) [address] , [place], [address], 07/23/2024 10:11:21 07/23/20 24 07/23/2024 CBC AUTO W DIFF MPV 9.7 fL 6-9.5 high Not Available [facility] ([facility]) [address] , [place], [address], 07/23/2024 10:11:21 07/23/20 24 07/23/2024 CBC AUTO W DIFF neutrophil% 80.6 % 43-65 high Not Available [facility] ([facility]) [address], [place], [address], 07/23/2024 10:11:21 07/23/20 24 07/23/2024 CBC AUTO W DIFF lymphocyte% 10.4 % 20.5-4 5.5 low Not Available [facility] ([facility]) [address], [place], [address], 07/23/2024 10:11:21 07/23/20 24 07/23/2024 CBC AUTO W DIFF monocyte% 6.9 % 5.5-11 .7 Not Available [facility] ([facility]) [address] [place], [address], 07/23/2024 10:11:21 07/23/20 24 07/23/2024 CBC AUTO W DIFF eosinophil% 1.0 % 0.9-2. 9 Not Available [facility] ([facility]) [address] [place], [address], 07/23/2024 10:11:21 07/23/20 24 07/23/2024 CBC AUTO W DIFF basophil% 0.4 % 0.2-1. 0 Not Available [facility] ([facility]) [address] [place], [address], 07/23/2024 10:11:21 07/23/20 24 07/23/2024 CBC AUTO W DIFF immature granulocytes % 0.7 % 0.0-0. 8 Not Available [facility] ([facility]) [address], [place], [address], 07/23/2024 10:11:21 07/23/20 24 07/23/2024 CBC AUTO W DIFF nucleated red blood cells % 0.3 % Not Available [facility] ([facility]) [address] [facility] [facility], [place], [address], 07/23/2024 10:11:21 07/23/20 24 07/23/2024 CBC AUTO W DIFF neutrophil# 9.3 K/uL 2.2-4. 8 high Not Available [facility] ([facility]) [address] [facility] [facility], [place], [address], 07/23/2024 10:11:21 07/23/20 24 07/23/2024 CBC AUTO W DIFF lymphocyte# 1.2 cell/ mcL 1.3-2. 9 low Not Available [facility] ([facility]) [address], [place], [address], 07/23/2024 10:11:21 07/23/20 24 07/23/2024 CBC AUTO W DIFF monocyte# 0.8 cell/ mcL 0.3-0. 8 Not Available [facility] ([facility]) [address], [place], [address], 07/23/2024 10:11:21 07/23/20 24 07/23/2024 CBC AUTO W DIFF eosinophil# 0.1 cell/ mcL 0-0.2 Not Available [facility] ([facility]) [address] [place], [address], 07/23/2024 10:11:21 07/23/20 24 07/23/2024 CBC AUTO W DIFF basophil# 0.1 cell/ mcL 0.0-1. 0 Not Available [facility] ([facility]) [address] , [place], [address], 07/23/2024 10:11:21 07/23/20 24 07/23/2024 CBC AUTO W DIFF immature gramulocytes # 0.08 K/uL Not Available [facility] ([facility]) [address] , [place], [address], 07/23/2024 10:11:21 07/23/20 24 07/23/2024 CBC AUTO W DIFF nucleated red blood cells # 0.03 K/uL Not Available [facility] ([facility]) [address] , [place], [address], 07/23/2024 10:11:21 07/23/20 24 07/23/2024 CBC AUTO W DIFF manual differential NO Not Available [facility] ([facility]) [address] , [place], [address], 07/23/2024 10:11:21 07/23/20 24 07/23/2024 HEPAT IC FUNCT IONAL PANEL total protein 7.3 g/dL 6.4-8. 2 Not Available [facility] ([facility]) [address] , [place], [address], 07/23/2024 10:22:19 07/23/20 24 07/23/2024 HEPAT IC FUNCT IONAL PANEL albumin 3.6 g/dL 3.4-5. 0 Not Available [facility] ([facility]) [address] , [place], [address], 07/23/2024 10:22:19 07/23/20 24 07/23/2024 HEPAT IC FUNCT IONAL PANEL bilirubin direct 0.1 O.oo-0 .30 Not Available [facility] ([facility]) [address], [place], [address], 07/23/2024 10:22:19 07/23/20 24 07/23/2024 HEPAT IC FUNCT IONAL PANEL bilirubin total 0.40 mg/dL 0.10-1 .00 Not Available [facility] ([facility]) [address] , [place], [address], 07/23/2024 10:22:19 07/23/20 24 07/23/2024 HEPAT IC FUNCT IONAL PANEL bilirubin indirect 0.30 Not Available [facility] ([facility]) [address] , [place], [address], 07/23/2024 10:22:19 07/23/20 24 07/23/2024 HEPAT IC FUNCT IONAL PANEL AST (SGOT) 17 U/L 0-37 Not Available [facility] ([facility]) [address] , [place], [address], 07/23/2024 10:22:19 07/23/20 24 07/23/2024 HEPAT IC FUNCT IONAL PANEL ALT (SGPT) 45 U/L 0-65 Not Available [facility] ([facility]) [address] , [place], [address], 07/23/2024 10:22:19 07/23/20 24 07/23/2024 HEPAT IC FUNCT IONAL PANEL alk phosphatase 49 U/L 46-116 Not Available [facility] ([facility]) [address] , [place], [address], 07/23/2024 10:22:19 08/20/20 24 08/20/2024 HEPAT IC FUNCT IONAL PANEL total protein 7.4 g/dL 6.4-8. 2 Not Available [facility] ([facility]) [address], [place], [address], 08/20/2024 11:54:21 08/20/20 24 08/20/2024 HEPAT IC FUNCT IONAL PANEL albumin 4.1 g/dL 3.4-5. 0 Not Available [facility] ([facility]) [address] , [place], [address], 08/20/2024 11:54:21 08/20/20 24 08/20/2024 HEPAT IC FUNCT IONAL PANEL bilirubin direct 0.1 O.oo-0 .30 Not Available [facility] ([facility]) [address] , [place], [address], 08/20/2024 11:54:21 08/20/20 24 08/20/2024 HEPAT IC FUNCT IONAL PANEL bilirubin total 0.50 mg/dL 0.10-1 .00 Not Available [facility] ([facility]) [address] , [place], [address], 08/20/2024 11:54:21 08/20/20 24 08/20/2024 HEPAT IC FUNCT IONAL PANEL bilirubin indirect 0.40 Not Available [facility] ([facility]) [address] , [place], [address], 08/20/2024 11:54:21 08/20/20 24 08/20/2024 HEPAT IC FUNCT IONAL PANEL AST (SGOT) 20 U/L 0-37 Not Available [facility] ([facility]) [address] , [place], [address], 08/20/2024 11:54:21 08/20/20 24 08/20/2024 HEPAT IC FUNCT IONAL PANEL ALT (SGPT) 64 U/L 0-65 Not Available [facility] ([facility]) [address] , [place], [address], 08/20/2024 11:54:21 08/20/20 24 08/20/2024 HEPAT IC FUNCT IONAL PANEL alk phosphatase 53 U/L 46-116 Not Available [facility] ([facility]) [address], [place], [address], 08/20/2024 11:54:21 10/21/19 25 10/21/2024 HEPAT IC FUNCT IONAL PANEL total protein 6.9 g/dL 6.4-8. 2 Not Available [facility] ([facility]) [address], [place], [address], 10/21/2024 11:57:13 10/21/19 25 10/21/2024 HEPAT IC FUNCT IONAL PANEL albumin 3.6 g/dL 3.4-5. 0 Not Available [facility] ([facility]) [address], [place], [address], 10/21/2024 11:57:13 10/21/19 25 10/21/2024 HEPAT IC FUNCT IONAL PANEL bilirubin direct 0.2 O.oo-0 .30 Not Available [facility] ([facility]) [address], [place], [address], 10/21/2024 11:57:13 10/21/19 25 10/21/2024 HEPAT IC FUNCT IONAL PANEL bilirubin total 0.50 mg/dL 0.10-1 .00 Not Available [facility] ([facility]) [address], [place], [address], 10/21/2024 11:57:13 10/21/19 25 10/21/2024 HEPAT IC FUNCT IONAL PANEL bilirubin indirect 0.30 Not Available [facility] ([facility]) [address], [place], [address], 10/21/2024 11:57:13 10/21/19 25 10/21/2024 HEPAT IC FUNCT IONAL PANEL AST (SGOT) 23 U/L 0-37 Not Available [facility] ([facility]) [address], [place], [address], 10/21/2024 11:57:13 10/21/19 25 10/21/2024 HEPAT IC FUNCT IONAL PANEL ALT (SGPT) 59 U/L 0-65 Not Available [facility] ([facility]) [address] , [place], [address], 10/21/2024 11:57:13 10/21/19 25 10/21/2024 HEPAT IC FUNCT IONAL PANEL alk phosphatase 55 U/L 46-116 Not Available [facility] ([facility]) [address] , [place], [address], 10/21/2024 11:57:13 10/21/19 25 10/21/2024 CBC AUTO W DIFF WBC 5.0 K/uL 4.0-10 .5 Not Available [facility] ([facility]) [address], [place], [address], 10/21/2024 14:27:12 10/21/19 25 10/21/2024 CBC AUTO W DIFF RBC 3.6 M/mm3 4.7-6. 1 low Not Available [facility] ([facility]) [address], [place], [address], 10/21/2024 14:27:12 10/21/19 25 10/21/2024 CBC AUTO W DIFF HGB 9.5 gm/dL 13.5-1 8.0 low Not Available [facility] ([facility]) [address], [place], [address], 10/21/2024 14:27:12 10/21/19 25 10/21/2024 CBC AUTO W DIFF HCT 32.8 % 42.0-5 2.0 low Not Available [facility] ([facility]) [address], [place], [address], 10/21/2024 14:27:12 10/21/19 25 10/21/2024 CBC AUTO W DIFF MCV 90.1 fL 78-100 Not Available [facility] ([facility]) [address], [place], [address], 10/21/2024 14:27:12 10/21/19 25 10/21/2024 CBC AUTO W DIFF MCH 26.1 pg 27-31 low Not Available [facility] ([facility]) [address] , [place], [address], 10/21/2024 14:27:12 10/21/19 25 10/21/2024 CBC AUTO W DIFF MCHC 29.0 g/dL 32-36 low Not Available [facility] ([facility]) [address] , [place], [address], 10/21/2024 14:27:12 10/21/19 25 10/21/2024 CBC AUTO W DIFF RDW 19.9 % 11.5-1 4.0 high Not Available [facility] ([facility]) [address] , [place], [address], 10/21/2024 14:27:12 10/21/19 25 10/21/2024 CBC AUTO W DIFF platelet count 237 K/uL 150-45 0 Not Available [facility] ([facility]) [address] , [place], [address], 10/21/2024 14:27:12 10/21/19 25 10/21/2024 CBC AUTO W DIFF MPV 10.1 fL 6-9.5 high Not Available [facility] ([facility]) [address] , [place], [address], 10/21/2024 14:27:12 10/21/19 25 10/21/2024 CBC AUTO W DIFF neutrophil% 87.2 % 43-65 high Not Available [facility] ([facility]) [address] , [place], [address], 10/21/2024 14:27:12 10/21/19 25 10/21/2024 CBC AUTO W DIFF lymphocyte% 6.4 % 20.5-4 5.5 low Not Available [facility] ([facility]) [address] [place], [address], 10/21/2024 14:27:12 10/21/19 25 10/21/2024 CBC AUTO W DIFF monocyte% 4.6 % 5.5-11 .7 low Not Available [facility] ([facility]) [address] [place], [address], 10/21/2024 14:27:12 10/21/19 25 10/21/2024 CBC AUTO W DIFF eosinophil% 0.2 % 0.9-2. 9 low Not Available [facility] ([facility]) [address] [place], [address], 10/21/2024 14:27:12 10/21/19 25 10/21/2024 CBC AUTO W DIFF basophil% 0.6 % 0.2-1. 0 Not Available [facility] ([facility]) [address] [place], [address], 10/21/2024 14:27:12 10/21/19 25 10/21/2024 CBC AUTO W DIFF immature granulocytes % 1.0 % 0.0-0. 8 high Not Available [facility] ([facility]) [address] [place], [address], 10/21/2024 14:27:12 10/21/19 25 10/21/2024 CBC AUTO W DIFF nucleated red blood cells % 0.6 % Not Available [facility] ([facility]) [address] [place], [address], 10/21/2024 14:27:12 10/21/19 25 10/21/2024 CBC AUTO W DIFF neutrophil# 4.4 K/uL 2.2-4. 8 Not Available [facility] ([facility]) [address] [place], [address], 10/21/2024 14:27:12 10/21/19 25 10/21/2024 CBC AUTO W DIFF lymphocyte# 0.3 cell/ mcL 1.3-2. 9 low Not Available [facility] ([facility]) [address] [facility], [place], [address], 10/21/2024 14:27:12 10/21/19 25 10/21/2024 CBC AUTO W DIFF monocyte# 0.2 cell/ mcL 0.3-0. 8 low Not Available [facility] ([facility]) [address] [facility], [place], [address], 10/21/2024 14:27:12 10/21/19 25 10/21/2024 CBC AUTO W DIFF eosinophil# 0.0 cell/ mcL 0-0.2 Not Available [facility] ([facility]) [address] [facility] [facility], [place], [address], 10/21/2024 14:27:12 10/21/19 25 10/21/2024 CBC AUTO W DIFF basophil# 0.0 cell/ mcL 0.0-1. 0 Not Available [facility] ([facility]) [address] [facility], [place], [address], 10/21/2024 14:27:12 10/21/19 25 10/21/2024 CBC AUTO W DIFF immature gramulocytes # 0.05 K/uL Not Available [facility] ([facility]) [address] [facility], [place], [address], 10/21/2024 14:27:12 10/21/19 25 10/21/2024 CBC AUTO W DIFF nucleated red blood cells # 0.03 K/uL Not Available [facility] ([facility]) [address] [facility], [place], [address], 10/21/2024 14:27:12 10/21/19 25 10/21/2024 CBC AUTO W DIFF manual differential NO Not Available [facility] ([facility]) [address], [place], [address], 10/21/2024 14:27:12 10/21/19 25 10/21/2024 CBC AUTO W DIFF platelet estimate ADEQUA TE adequa te Not Available [facility] ([facility]) [address], [place], [address], 10/21/2024 14:27:12 10/21/19 25 10/21/2024 CBC AUTO W DIFF platelet morphology NORMAL normal Not Available [facility] ([facility]) [address] , [place], [address], 10/21/2024 14:27:12 10/21/19 25 10/21/2024 CBC AUTO W DIFF RBC morphology NORMAL normal Not Available [facility] ([facility]) [address] , [place], [address], 10/21/2024 14:27:12 10/21/19 25 10/21/2024 CBC AUTO W DIFF anisocytosis SLIGHT none seen Not Available [facility] ([facility]) [address] , [place], [address], 10/21/2024 14:27:12 10/21/19 25 10/21/2024 CBC AUTO W DIFF poikilocytos is SLIGHT none seen Not Available [facility] ([facility]) [address] [place], [address], 10/21/2024 14:27:12 12/22/19 25 12/21/2024 CBC AUTO W DIFF WBC 6.1 K/uL 4.0-10 .5 Not Available [facility] ([facility]) [address] [place], [address], 12/21/2024 14:21:17 12/22/19 25 12/21/2024 CBC AUTO W DIFF RBC 3.6 M/mm3 4.7-6. 1 low Not Available [facility] ([facility]) [address] , [place], [address], 12/21/2024 14:21:17 12/22/19 25 12/21/2024 CBC AUTO W DIFF HGB 10.1 gm/dL 13.5-1 8.0 low Not Available [facility] ([facility]) [address] , [place], [address], 12/21/2024 14:21:17 12/22/19 25 12/21/2024 CBC AUTO W DIFF HCT 33.0 % 42.0-5 2.0 low Not Available [facility] ([facility]) [address] , [place], [address], 12/21/2024 14:21:17 12/22/19 25 12/21/2024 CBC AUTO W DIFF MCV 90.7 fL 78-100 Not Available [facility] ([facility]) [address] , [place], [address], 12/21/2024 14:21:17 12/22/19 25 12/21/2024 CBC AUTO W DIFF MCH 27.7 pg 27-31 Not Available [facility] ([facility]) [address] , [place], [address], 12/21/2024 14:21:17 12/22/19 25 12/21/2024 CBC AUTO W DIFF MCHC 30.6 g/dL 32-36 low Not Available [facility] ([facility]) [address] , [place], [address], 12/21/2024 14:21:17 12/22/19 25 12/21/2024 CBC AUTO W DIFF RDW 22.9 % 11.5-1 4.0 high Not Available [facility] ([facility]) [address], [place], [address], 12/21/2024 14:21:17 12/22/19 25 12/21/2024 CBC AUTO W DIFF platelet count 275 K/uL 150-45 0 Not Available [facility] ([facility]) [address] , [place], [address], 12/21/2024 14:21:17 12/22/19 25 12/21/2024 CBC AUTO W DIFF MPV 9.1 fL 6-9.5 Not Available [facility] ([facility]) [address] , [place], [address], 12/21/2024 14:21:17 12/22/19 25 12/21/2024 CBC AUTO W DIFF neutrophil% 80.2 % 43-65 high Not Available [facility] ([facility]) [address] , [place], [address], 12/21/2024 14:21:17 12/22/19 25 12/21/2024 CBC AUTO W DIFF lymphocyte% 8.4 % 20.5-4 5.5 low Not Available [facility] ([facility]) [address] , [place], [address], 12/21/2024 14:21:17 12/22/19 25 12/21/2024 CBC AUTO W DIFF monocyte% 9.4 % 5.5-11 .7 Not Available [facility] ([facility]) [address] [place], [address], 12/21/2024 14:21:17 12/22/19 25 12/21/2024 CBC AUTO W DIFF eosinophil% 1.0 % 0.9-2. 9 Not Available [facility] ([facility]) [address] [place], [address], 12/21/2024 14:21:17 12/22/19 25 12/21/2024 CBC AUTO W DIFF basophil% 0.5 % 0.2-1. 0 Not Available [facility] ([facility]) [address], [place], [address], 12/21/2024 14:21:17 12/22/19 25 12/21/2024 CBC AUTO W DIFF immature granulocytes % 0.5 % 0.0-0. 8 Not Available [facility] ([facility]) [address] [facility], [place], [address], 12/21/2024 14:21:17 12/22/19 25 12/21/2024 CBC AUTO W DIFF nucleated red blood cells % 0.0 % Not Available [facility] ([facility]) [address] [facility], [place], [address], 12/21/2024 14:21:17 12/22/19 25 12/21/2024 CBC AUTO W DIFF neutrophil# 4.9 K/uL 2.2-4. 8 high Not Available [facility] ([facility]) [address] [facility] [facility], [place], [address], 12/21/2024 14:21:17 12/22/19 25 12/21/2024 CBC AUTO W DIFF lymphocyte# 0.5 cell/ mcL 1.3-2. 9 low Not Available [facility] ([facility]) [address] [place], [address], 12/21/2024 14:21:17 12/22/19 25 12/21/2024 CBC AUTO W DIFF monocyte# 0.6 cell/ mcL 0.3-0. 8 Not Available [facility] ([facility]) [address] [facility] [facility], [place], [address], 12/21/2024 14:21:17 12/22/19 25 12/21/2024 CBC AUTO W DIFF eosinophil# 0.1 cell/ mcL 0-0.2 Not Available [facility] ([facility]) [address], [place], [address], 12/21/2024 14:21:17 12/22/19 25 12/21/2024 CBC AUTO W DIFF basophil# 0.0 cell/ mcL 0.0-1. 0 Not Available [facility] [facility] [address], [place], [address], 12/21/2024 14:21:17 12/22/19 25 12/21/2024 CBC AUTO W DIFF immature gramulocytes # 0.03 K/uL Not Available [facility] ([facility]) [address], [place], [address], 12/21/2024 14:21:17 12/22/19 25 12/21/2024 CBC AUTO W DIFF nucleated red blood cells # 0.00 K/uL Not Available [facility] ([facility]) [address], [place], [address], 12/21/2024 14:21:17 12/22/19 25 12/21/2024 CBC AUTO W DIFF manual differential NO Not Available [facility] ([facility]) [address], [place], [address], 12/21/2024 14:21:17 12/22/19 25 12/21/2024 HEPAT IC FUNCT IONAL PANEL total protein 7.2 g/dL 6.4-8. 2 Not Available [facility] ([facility]) [address], [place], [address], 12/21/2024 14:51:30 12/22/19 25 12/21/2024 HEPAT IC FUNCT IONAL PANEL albumin 4.1 g/dL 3.4-5. 0 Not Available [facility] ([facility]) [address], [place], [address], 12/21/2024 14:51:30 12/22/19 25 12/21/2024 HEPAT IC FUNCT IONAL PANEL bilirubin direct 0.0 O.oo-0 .30 Not Available [facility] ([facility]) [address] , [place], [address], 12/21/2024 14:51:30 12/22/19 25 12/21/2024 HEPAT IC FUNCT IONAL PANEL bilirubin total 0.40 mg/dL 0.10-1 .00 Not Available [facility] ([facility]) [address] , [place], [address], 12/21/2024 14:51:30 12/22/19 25 12/21/2024 HEPAT IC FUNCT IONAL PANEL bilirubin indirect 0.40 Not Available [facility] ([facility]) [address], [place], [address], 12/21/2024 14:51:30 12/22/19 25 12/21/2024 HEPAT IC FUNCT IONAL PANEL AST (SGOT) 32 U/L 0-37 Not Available [facility] ([facility]) [address], [place], [address], 12/21/2024 14:51:30 12/22/19 25 12/21/2024 HEPAT IC FUNCT IONAL PANEL ALT (SGPT) 50 U/L 0-65 Not Available [facility] ([facility]) [address], [place], [address], 12/21/2024 14:51:30 12/22/19 25 12/21/2024 HEPAT IC FUNCT IONAL PANEL alk phosphatase 122 U/L 46-116 high Not Available [facility] ([facility]) [address], [place], [address], 12/21/2024 14:51:30 Result Notes None recorded. 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 Procedures Surgical History Date Name Laterality Status Provider Name and Address Organization Details Recorded Time 09/15/18 98 Cardiovascular Surgery completed Ben Torres [place] [facility] [place] 08/05/2022 13:01:39 09/15/18 98 Other completed Ben Torres [place] [facility] [place] 08/05/2022 13:01:39 procedure on knee completed Ben Torres [place] [facility] [place] 08/05/2022 13:05:30 Imaging Results None recorded. Procedure [...] Updated DateTime 5 187.96 cm 26.1 kg/m2 72525.2 5 g 98.2 [degF] 67 /min 92 % 92 % 94/59 mm[Hg] Preeti BEVERLY [facility] - [place] [facility] [place] 5 10:40:12 Date Recorded Body height Heart rate Oxygen saturation Oxygen saturation in Arterial blood by Pulse oximetry Heart rate Body temperature Body mass index (BMI) Body weight Systolic And Diastolic Provider Name and Address Organization Details Last Updated DateTime 5 187.96 cm 79 /min 94 % 94 % 79 /min 98 [degF] 25.5 kg/m2 15522.8 8 g 122/67 mm[Hg] Tammy Theodore [facility] & [place] 5 13:43:20 Date Recorded Body height Heart rate Oxygen saturation Oxygen saturation in Arterial blood by Pulse oximetry Body temperature Body mass index (BMI) Body weight Systolic And Diastolic Provider Name and Address Organization Details Last Updated DateTime 5 187.96 cm 58 /min 95 % 95 % 98.9 [degF] 25.3 kg/m2 62881.1 3 g 116/69 mm[Hg] Magnus BEVERLY [facility] & [place] 5 11:10:14 Date Recorded Body height Oxygen saturation Oxygen saturation in Arterial blood by Pulse oximetry Heart rate Systolic And Diastolic Provider Name and Address Organization Details Last Updated DateTime 4 187.96 cm 91 % 91 % 56 /min 133/74 mm[Hg] Preeti GuevarappardBrian Ranulfo BEVERLY [facility] & [place] 4 09:22:06 Date Recorded Body height Body mass index (BMI) Body weight Body temperature Heart rate Oxygen saturation Oxygen saturation in Arterial blood by Pulse oximetry Systolic And Diastolic Provider Name and Address Organization Details Last Updated DateTime 4 187.96 cm 25.3 kg/m2 66343.7 g 96.7 [degF] 66 /min 93 % 93 % 130/70 mm[Hg] Preeti BEVERLY [facility] & [place] 4 10:33:55 Social History Question Answer Notes LastModified by Organizat ion Details LastModified Time Tobacco Smoking Status Former Smoker Lindsaybharati Alexander benavides RUSH [facility] & [place] 08/05/2022 13:01:35 Do You Have An Advance Directive? Yes Information not available 08/05/2022 Are You Blind Or Do You Have Difficulty Seeing? No [email or web address] Information not available 08/05/2022 What Was The Date Of Your Most Recent Tobacco Screening? 06/21/2024 [email or web address] Information not available 06/24/2024 Are You Passively Exposed To Smoke? No [email or web address] Information not available 08/05/2022 How Much Tobacco Do You Smoke? No [email or web address] Information not available 08/05/2022 How Many Years Have You Smoked Tobacco? 30 Years In The Past [email or web address] Information not available 08/05/2022 Sex: Male Functional Status Question Answer Note LastModified by Organizat ion Details LastModified Time Do you use any illicit or recreational drugs? No [email or web address] Information not available 08/05/2022 What is your level of alcohol consumption? None [email or web address] Information not available 08/05/2022 Do you or have you ever used smokeless tobacco? Never used smokeless tobacco [email or web address] Information not available 08/05/2022 What is your exercise level? Occasional [email or web address] Information not available 08/05/2022 Mental Status Question Answer Note LastModified by Organization D etails LastModified Time Do you feel stressed (tense, restless, nervous, or anxious, or unable to sleep at night)? [id number] [email or web address] Information not available 08/05/2022 Family History Relationship Description Onset Age of this Age Resolved Age Notes LastModified by Organization Details LastModified Time Mother Myocardial infarction dec [email or web address] Not available 08/05 13:03:49 Mother Kidney disease [...] ICD10 Code Diagnosis IMO Codes Diagnosis Note [id number] Sanket Schaeffer Jr, MD [facility] [address] [place] [address] 08/05/2022 12:30:55 08/05/2022 13:26:38 Benign prostatic hyperplasia with outflow obstruction 570959254 N40.1 Patient with lower urinary tract symptoms due to BPH. He is doing well on the tamsulosin and is to continue. Erectile dysfunction 860 586252 F52.21 patient with history of erectile dysfunctio n. He states he does well with the sildenafil 100 mg p.r.n.. [id number] Sanket Schaeffer Jr, MD [facility] [address] [place] [address] 7 02/06/2023 13:40:33 02/06/2023 14:19:48 Prostate specific antigen above reference range 465310549 R97.20 Patient with history of elevated PSA. His recent PSA 2 weeks ago was 9.6 and stable from previous PSAs. We discussed options including continued watchful waiting and close monitoring versus prostate biopsy. Patient is comfortabl e with watchful waiting and we will see him back in 6 months with a free and total PSA. Lower urin amtty tract symptoms due to benign prostatic hypertrophy 4195170921 9101 N40.1 patient with history of BPH. He is voiding well on the tamsulosin and is to continue. Erectile dysfunction 860 816592 F52.21 patient with history of erectile dysfunctio n. He states he does well with the sildenafil 100 mg p.r.n.. [id number] Sanket Schaeffer Jr, MD [facility] [address] [address] 08/13/2023 08:41:10 08/13/2023 09:26:44 Prostate specific antigen above reference range 563675916 R97.20 Patient with history of elevated PSA. His recent PSA 2 weeks ago Was 11.5. This is we will higher than his previous of 9.6. It has been as high as 10.1 in the past. We again discussed prostate biopsy versus monitoring and he wishes to continue monitoring . Lower urin matty tract symptoms due to benign prostatic hypertrophy 2492899211 9101 N40.1 patient with history of BPH. [...] direction at this time. Erectile dysfunction 860 353988 F52.21 patient with history of erectile dysfunctio n. He states he does well with the sildenafil 100 mg p.r.n.. We have discussed not taking the sildenafil within 4 hours of the Flomax. [id number] Sanket Schaeffer Jr, MD [facility] [address] [address] 02/13/2024 09:03:41 02/13/2024 09:40:36 Prostate specific antigen above reference range 242301605 R97.20 Patient with history of elevated PSA. [...] tract symptoms due to benign prostatic hypertrophy 4428085686 9101 N40.1 patient with history of BPH. patient states some increased frequency and nocturia. patient has not improved in the past with increasing his tamsulosin 2 a day or with oxybutynin . He complains of decreased flow. We would discussed other options but they require surgical procedures as well. [id number] Sanket Schaeffer Jr, MD [facility] [address] [address] 11/12/2023 09:13:53 11/12/2023 10:07:59 Lower urinary tract symptoms due to benign prostatic hypertrophy 4491179817 9101 N40.1 patient with history of BPH. [...] Prostate s pecific antigen above reference range 357780085 R97.20 Patient with history of elevated PSA. [...] PSA in 3 months. Erectile dysfunction 860 412892 F52.21 patient with history of erectile dysfunctio n. He states he does well with the sildenafil 100 mg p.r.n.. We have discussed not taking the sildenafil within 4 hours of the Flomax. [id number] [facility] 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 Patient is negative for any pulmonary symptoms. Chest xray normal. Patient is on suppressiv e medication s for PMR. Patient takes Warfarin due to his mechanical heart valve. Will start Isoniazid and Vitamin B6. Will see patient back in 1 month. Plan will be to complete a 9 month regimen. All questions answered. [id number] [facility] [facility] [address] [place] [address] 07/23/2024 09:14:15 07/23/2024 09:34:06 Inactive tuberculosis 09384915 Z22.7 History of being in the . [...] 1 month. High risk medication monitoring indicated 8879369217 2097502 Z76.89 Will check a CBC and hepatic function panel due to the ad terminal makeup operator use of Isoniazid. Will monitor weight regularly and check for adverse effects. [id number] [facility] [facility] [address] [place] [address] 08/20/2024 10:25:17 08/20/2024 10:44:10 Inactive tuberculosis 59502306 Z22.7 History of being in the . [...] 1 month. High risk medication monitoring indicated [id number] 7760057 Z76.89 Will check a CBC and hepatic function panel due to the ad terminal makeup operator use of Isoniazid. Will monitor weight regularly and check for adverse effects. [id number] [facility] [facility] [facility] [address] [place] [address] 10/21/2024 10:32:10 10/21/2024 10:47:20 Inactive tuberculosis 10144409 Z22.7 History of being in the . [...] 2 months. High risk medication monitoring indicated 3005797488 3300045 Z76.89 Will check a CBC and hepatic function panel due to the ad terminal makeup operator use of Isoniazid. Will monitor weight regularly and check for adverse effects. [id number] [facility] [facility] [address] [place] [address] 12/21/2024 13:36:37 12/21/2024 13:51:52 Inactive tuberculosis 20056994 Z22.7 History of being in the . [...] 3 months. High risk medication monitoring indicated 5691571749 2019911 Z76.89 Will check a CBC and hepatic function panel due to the ad terminal makeup operator use of Isoniazid. Will monitor weight regularly and check for adverse effects. [id number] Nery [place] in, [employer] [facility] Infectiou s Disease -[address] [facility] [address] [place] [address] 03/22/2025 11:00:19 03/22/2025 11:17:03 Inactive tuberculosis 96315617 Z22.7 History of being in the . [...] up required. High risk medication monitoring indicated 3416083004 2237527 Z76.89 Will check a CBC and hepatic function panel due to the ad terminal makeup operator use of Isoniazid. Will monitor weight [...] *SELF PAY* Ri khushi Lezama 03/24/2025 2 [facility] () Martin Lezama [id number] Martin Lezama 03/19/2025 1 [place]MEDICARE[place] Martin Lezama [id number] Martin Lezama Notes Date Note Type Note [...] fevers. Nery Lee APRN [address], [place], [address], [facility] & [place] 07/23/2024 09:37:00 08/20/2024 text/html ROS as noted [...] treatment. Nery Lee APRN [address], [place], [address], [facility] 08/20/2024 10:49:26 10/21/2024 text/html ROS as [...] cancer. Nery Lee APRN [address], [place], [address], [facility] 10/21/2024 11:35:54 12/21/2024 text/html ROS as [...] cancer. Nery Lee APRN [address], [place], [address], [facility] & [place] 12/21/2024 13:51:11 03/22/2025 text/html ROS as noted [...] parasthesia. Nery Lee APRN [address], [place], [address], [facility] & [place] 03/24/2025 11:59:01
--- OUTSIDE RECORDS SUMMARY | 2025-07-11 05:29 | XMS_ITS | Clinical Summary ---
Author Organization [facility] Address [address] [place] [address] Care Team Providers Care Cable Maker Name Role Phone Abelardo Pappas MD Primary Care Provider +1- [phone] Allergies Active Allergy Reactions Criticality Noted Date [...] (one) time each day. Active HYDROcodone-newton taminophen (Lodi) 5-325 MG tablet TAKE ONE TABLET BY [...] Department Care Team Description 06/28/2025 Orders Only [facility] at [address] [place] [address] Justen Jaimes MD Malignant neoplasm of prostate (CMS/HCC) 06/06/2025 2:30 PM EDT Infusion [facility] at [place] [address] [place] [address] Osteopenia of multiple sites (Primary Dx) 06/06/2025 2:15 PM EDT Office Visit [facility] at [address] [place] [address] Justen Jaimes MD Malignant neoplasm of prostate (CMS/HCC) (Primary Dx); Osteopenia of multiple sites 06/06/2025 Orders Only [facility] at [facility] [address] [place] [address] Justen Jaimes MD 06/06/2025 Orders Only [facility] at [facility] [address] [place] [address] Justen Jaimes MD 06/06/2025 Travel 06/04/2025 Travel 06/01/2025 Orders Only [facility] at [facility] [address] [place] [address] Justen Jaimes MD 05/11/2025 Abstract [facility] at [facility] [address] [place] [address] Justen Jaimes MD from Last 3 Months [...] Description 11/28/2025 2:00 PM EDT Office Visit [facility] at [facility] [address] [place] [address] 11/28/2025 3:00 PM EDT Office Visit [facility] at [facility] [address] [place] [address] Justen Jaimes MD [address] [address] 11/28/2025 3:15 PM EDT Clinical Support [facility] at [facility] [address] [place] [address] Health Maintenance Due Date Last Done Comments [facility]-Hepatitis C Screening 1945 [facility]-Medicare Annual Wellness (AWV) 1945 [facility]-Infant/Child/Adol SDOH Screenings 1945 [facility]-Obesity Intervention 1953 [facility]- SDOH Screenings 1965 [facility]-Adult SDOH Screenings 1965 [facility]-Pneumococcal Vaccine: 50 + Years (1 of 2 - PCV) 1966 [facility]-Zoster Vaccines (1 of 2) 1966 [facility]-DTaP,Tdap,and Td Vaccine s (1 - Tdap) 07/25/2010 07/24/2010 [id number] Vaccine (3 - Moderna risk series) 12/20/2020 [...] Priority Date/Time Associated Diagnosis Comments RBC MORPHOLOGY ([facility]) Routine 06/06/2025 1:50 PM EDT PROSTATE [...] Platelet Morphology NORMAL 06/06/2025 4:06 PM EDT [facility] External Ovalocytes SLIGHT(A) 06/06/2025 4:06 PM EDT [facility] External Stomatocyte SLIGHT(A) 06/06/2025 4:06 PM EDT [facility] External Target Cells SLIGHT(A) 06/06/2025 4:06 PM EDT [facility] External Tear Drop Cells SLIGHT(A) 06/06/2025 4:06 PM EDT [facility] 06/06/2025 1:50 PM EDT 06/06/2025 2:21 PM EDT Justen Jaimes MD LAB BLOOD ORDERABLES Flaca ledezma Result [facility] [address] [id number], * (ABNORMAL) CBC and Differential (06/06/2025 1:50 PM EDT) External WBC 5.5 3.8 - 10.8 10*3/uL 06/06/2025 4:06 PM EDT [facility] External Red Blood Cell (RBC) 3.67(L) 4.20 - 5.80 10*6/uL 06/06/2025 4:06 PM EDT [facility] External Hemoglobin 10.3(L) 14.0 - 18.0 g/dL 06/06/2025 4:06 PM EDT [facility] External Hematocrit 32.8(L) 40.0 - 52.0 % 06/06/2025 4:06 PM EDT [facility] External MCV 89 80 - 100 fL 06/06/2025 4:06 PM EDT [facility] External MCH 28 26 - 35 pg 06/06/2025 4:06 PM EDT [facility] External MCHC 31(L) 32 - 36 g/dL 06/06/2025 4:06 PM EDT [facility] External RDW 23.0(H) 11.0 - 15.0 % 06/06/2025 4:06 PM EDT [facility] External Mean Platelet Volume 7.3 6.2 - 10.5 fL 06/06/2025 4:06 PM EDT [facility] External Platelet Count (Plt) 326 150 - 400 10*3/uL 06/06/2025 4:06 PM EDT [facility] External Neutrophil# 3.5 1.6 - 8.4 10*3/uL 06/06/2025 4:06 PM EDT [facility] External Lymphocyte# 0.7 0.4 - 5.1 10*3/uL 06/06/2025 4:06 PM EDT [facility] External Absolute Monocyte (Abs Hoke) 0.5 0.0 - 1.2 10*3/uL 06/06/2025 4:06 PM EDT [facility] External Eosinophils# 0.7 0.0 - 0.8 10*3/uL 06/06/2025 4:06 PM EDT [facility] External Baso# 0.1 0.0 - 0.3 10*3/uL 06/06/2025 4:06 PM EDT [facility] Comment:Smear reviewed to co nfirm cell morphology. External Neutrophils % 63.9 42.0 - 78.0 % 06/06/2025 4:06 PM EDT [facility] External Lymphocyte % 13.1 11.0 - 47.0 % 06/06/2025 4:06 PM EDT [facility] External Monocyte % 8.8 0.0 - 11.0 % 06/06/2025 4:06 PM EDT [facility] External Eosinophil% 13.2(H) 0.0 - 7.0 % 06/06/2025 4:06 PM EDT [facility] External Basophil % 1.0 0.0 - 3.0 % 06/06/2025 4:06 PM EDT [facility] External Nucleated RBC%-Auto 0.3 0.0 - 0.9 % 06/06/2025 4:06 PM EDT [facility] External Nucleated RBC Absolute 0.02 Not Estab. 10*3/uL 06/06/2025 4:06 PM EDT [facility] Blood Venous blood specimen / Unknown 06/06/2025 1:50 PM EDT 06/06/2025 2:21 PM EDT us Justen Jaimes MD LAB BLOOD ORDERABLES Flaca ledezma Result [facility] [address] [place] [address], * PSA, percent free, profile (06/06/2025 1:50 PM EDT) External Prostate Specific Antigen (PSA) 0.269 0.000 - 4.400 ng/mL 06/06/2025 3:01 PM EDT [facility] Comment: This test was performed using Estefania e801 Electrochemiluminescent method. The test method is based on WHO-standardized calibration. Values obtained from different assay methods or manufacturers may not be comparable. External Psa, Free 0.17 ng/mL 2024 3:01 PM EDT [facility] Comment: Test method is based on WHO-standardized calibration using the Estefania E801 analyzer. Free PSA results by different test procedures cannot be directly compared with one another. External Psa- % Free 63 % 05/17 3:01 PM EDT [facility] Comment: PSA ng/mL % FREE PSA Probability of Prostate Cancer % Less than 4.00 N/A 17% 4.0 - 10.0 0-10 56% 10-15 28% 15-20 20% 20-25 16% Greater than 25 8% Greater than 10.0 N/A 49% Blood Venous blood specimen / Unknown 06/06/2025 1:50 PM EDT 06/06/2025 2:21 PM EDT us Justen Jaimes MD LAB BLOOD ORDERABLES Flaca ledezma Result [facility] [address] [place] [address], * (ABNORMAL) Comprehensive Metabolic Panel, Plasma (06/06/2025 1:50 PM EDT) External Glucose 101(H) 74 - 100 mg/dL 06/06/2025 2:55 PM EDT [facility] External BUN 22(H) 6 - 20 mg/dL 06/06/2025 2:55 PM EDT [facility] External Creatinine Blood 0.97 0.70 - 1.20 mg/dL 06/06/2025 2:55 PM EDT [facility] External BUN/Creat Ratio 23(H) 10 - 20 (calc) 06/06/2025 2:55 PM EDT [facility] External Sodium 144 136 - 145 mmol/L 06/06/2025 2:55 PM EDT [facility] External Potassium 3.7 3.4 - 5.0 mmol/L 06/06/2025 2:55 PM EDT [facility] External Chloride 103 98 - 107 mmol/L 06/06/2025 2:55 PM EDT [facility] External Carbon Dioxide (CO2) 27 22 - 31 mmol/L 06/06/2025 2:55 PM T [facility] External Anion Gap (AG) 14 7 - 25 (calc) 06/06/2025 2:55 PM EDT [facility] External Calcium 10.0 8.6 - 10.2 mg/dL 06/06/2025 2:55 PM EDT [facility] External Total Protein 6.9 6.4 - 8.3 g/dL 06/06/2025 2:55 PM EDT [facility] External Albumin 4.4 3.5 - 5.2 g/dL 06/06/2025 2:55 PM EDT [facility] External Globulin 2.5 1.5 - 4.5 2:55 PM T [facility] External Albumin/Globulin Ratio 1.8 1.1 - 2.5 (calc) 06/06/2025 2:55 PM EDT [facility] External Bilirubin Total 0.3 0.1 - 1.0 mg/dL 06/06/2025 2:55 PM T [facility] Comment:NOTE: New reference range. External Alkaline Phosphatase 85 40 - 129 U/L 06/06/2025 2:55 PM EDT [facility] External AST (SGOT) 25 0 - 40 U/L 06/06/2025 2:55 PM EDT [facility] External ALT (SGPT) 32 0 - 41 U/L 06/06/2025 2:55 PM EDT [facility] External Estimated GFR 80 >=60 06/06/2025 2:55 PM EDT [facility] Comment: NOTE New calculation for GFR (CKD-EPI 2020) is formulated without race adjustment factors at the recommendation of the National Kidney Foundation and [place] [employer]ph[employer]. This calculation has not been validated in women. For pediatric patients refer to https://www.kidney.org/professionals/KDOQI/gfr_calculatorPed Blood Venous blood specimen / Unknown 06/06/2025 1:50 PM EDT 06/06/2025 2:21 PM EDT Justen Jaimes MD LAB BLOOD ORDERABLES Flaca l Result [facility] [address] [place] [address], [place] [phone] * COMPLETE METABOLIC PROFILE (CMP) (06/04/2025 2:58 [...] Result from Last 3 [place] [address] [facility] Care Teams Cable Maker Relationship Specialty Start Date End Date Abelardo Pappas MD [address] [place] [address] PCP - General 06/04/25
--- OUTSIDE RECORDS SUMMARY | 2025-07-11 05:29 | XMS_ITS | Referral Summary ---
Author Organization [employer] ([place], [place], [place], [place]) Address [address] [place] [address] Care Team Providers Care Toolroom Attendant Name Role Phone Tristan Billings DO Primary Care Provider [phone] [phone] Allergies No known active allergies Medications glipiZIDE [...] any time in the past 12 m [facility], were you homeless or living in a nursing home (including now)? No 08/14/2024 Utilities Answer [...] Do you speak a language other than Moroccan at [facility]? No 08/10/2024 Do you want help with [...] Advance Directives For more information, please contact: [phone] Documents on File Type Date Recorded Patient Beauty Counselor Expl anation Advance Directives and Living Will 08/10/2024 * Full Code (Latest Code Status on File) Date Activated Date Inactivated Comments 08/10/2024 2:42 PM 08/15/2024 4:37 PM Care Teams Toolroom Attendant Relationship Specialty Start Date End Date Tristan Billings DO PCP - General Internal Medicine 08/10/24
--- OUTSIDE RECORDS SUMMARY | 2025-07-11 05:29 | XMS_ITS | Encounter Summary ---
Author Organization [facility] Address [address] [place] [address] Care Team Providers Care Rug Dyer Helper Name Role Phone Abelardo Pappas MD Primary Care Provider +1- [phone] Encounter Details Date Type Department Care Team [...] Description 11/28/2025 2:00 PM EDT Office Visit [facility] at [facility] [address] [place] [phone] 11/28/2025 3:00 PM EDT Office Visit [facility] [address] [place] [phone] Justen Jaimes MD [address] [phone] 11/28/2025 3:15 PM EDT Clinical Support [facility] at [facility] [address] [place] [address] documented as of this encounter Visit Diagnoses Not on filedocumented in this encounter Additional Health Concerns Assessment Noted Time PHQ-9 Depression Total Score: 0 12/28/19 1:21 PM EDT A fall risk assessment has been complete d for the patient 06/06/2025 3:46 PM EDT documented as of this encounter Care Teams Rug Dyer Helper Relationship Specialty Start Date End Date Abelardo Pappas MD [address] [place] [address] PCP - General 06/04/25 documented as of this encounter
--- OUTSIDE RECORDS SUMMARY | 2025-07-11 05:29 | XMS_ITS | Encounter Summary ---
Author Organization [facility] Address [address] [place] [address] Care Team Providers Care Practical Nursing Instructor Name Role Phone YosiTristan centeno Primary Care Provider [phone] Encounter Details Date Type Department Care Team (Late st Contact Info) Description 05/11/2025 Abstract [facility] [address] [place] [address] Justen Jaimes MD [address] [phone] Social History Tobacco Use Types Packs/Day Years [...] PM EDT Office Visit [facility] [address] [place] [address] 11/28/2025 3:00 PM EDT Office Visit [facility] [address] [place] [address] Justen Jaimes MD [address] [phone] 11/28/2025 3:15 PM EDT Clinical Support [facility] [address] [place] [address] documented as of this encounter Visit Diagnoses Not on filedocumented in this encounter Additional Health Concerns Assessment Noted Time PHQ-9 Depression Total Score: 0 12/28/19 1:21 PM EDT A fall risk assessment has been complete d for the patient 12/27/2024 1:20 PM EDT documented as of this encounter Care Teams Practical Nursing Instructor Relationship Specialty Start Date End Date Tristan Billings DO [address] [place] [address] PCP - General 09/13/24 06/03/25 documented as of this encounter
--- OUTSIDE RECORDS SUMMARY | 2025-07-11 05:29 | XMS_ITS | Encounter Summary ---
Author Organization [facility] Address [address] [place] [address] Care Team Providers Care Damper Worker Name Role Phone Abelardo Pappas MD Primary Care Provider [phone]- [phone] Encounter Details Date Type Department Care Team [...] Description 11/28/2025 2:00 PM EDT Office Visit [facility] [place] [facility] [address] [place] [phone] 11/28/2025 3:00 PM EDT Office Visit [facility] at [facility] [address] [place] [address] Justen Jaimes MD [address] [phone] 11/28/2025 3:15 PM EDT Clinical Support [facility] at [facility] [address] [place] [address] documented as of this encounter Visit Diagnoses Not on filedocumented in this encounter Additional Health Concerns Assessment Noted Time PHQ-9 Depression Total Score: 0 12/28/19 1:21 PM EDT A fall risk assessment has been complete d for the patient 12/27/2024 1:20 PM EDT documented as of this encounter Care Teams Damper Worker Relationship Specialty Start Date End Date Abelardo Pappas MD [address] [place] [address] PCP - General 06/04/25 documented as of this encounter
--- OUTSIDE RECORDS SUMMARY | 2025-07-11 05:29 | XMS_ITS | Encounter Summary ---
Author Organization [facility] Address [address] [place] [address] Care Team Providers Care Cloth Covered Helmet Puller Name Role Phone Tristan Billings DO Primary Care Provider Abelardo Pappas MD Primary Care Provider [phone]- [phone] Encounter Details Date Type Department Care Team (Late Contact Info) Description 06/01/2025 Orders Only [facility] [address] [place] [address] Justen Jaimes MD [address] [address] Social History Tobacco Use Types [...] Description 11/28/2025 2:00 PM EDT Office Visit [facility] [address] [place] [address] 11/28/2025 3:00 PM EDT Office Visit [facility] [address] [place] [phone] Justen Jaimes MD [address] [place] [address] 11/28/2025 3:15 PM EDT Clinical Support [facility] [address] [place] [phone] documented as of this encounter Procedures Procedure [...] documented as of this encounter Care Teams Cloth Covered Helmet Puller Relationship Specialty Start Date End Date Tristan Billings DO [address] [place] [address] PCP - General 09/13/24 06/03/25 Abelardo Pappas MD [address] [place] [address] PCP - General 06/04/25 documented as of this encounter
--- OUTSIDE RECORDS SUMMARY | 2025-07-11 05:29 | XMS_ITS | Data Portability ---
Author Organization [facility] MARY NicholsS SONOITA CLOSED Address [address] [place] [address] Assessment Encounter Date Assessment Date Assessment LastModified [...] Lab urinalysi s panel, auto [address] [facility], [address], [place], [address], 02/28/2025 14:44:08 PSA, serum or plasma [address] [facility], [address], [address], [place], [address], 02/28/2025 14:44:08 urinalysi s panel, auto [address] [facility], [address], [address], [place], [address], 09/05/2024 22:40:08 Referral None recorded. Procedures None recorded. Surgeries None recorded. Imaging None recorded. Medication Orders levofloxa brittney 750 mg tablet 2023 [facility], [address] [place] [address] [address], [place], [place], [id number], 07/26/2024 13:18:08 oxybutyni n chloride ER 5 mg tablet,ex tended release 24 hr 2023 [facility], [address] [place] [address] [address], [place], [place], [id number], 07/26/2024 13:18:07 tamsulosi n 0.4 mg capsule 2023 024 [facility], [address] [facility], [place], [address], 07/25/2024 14:38:23 Patient TargetsNo targets recorded. Patient Instructions Encounter Date Encounter Id Patient Instructions Last Modified By Organization Details Last Modified Time 08/09/2024 [id number] learning about depression Not available 08/09/2024 21:12:50 Reason for Referral None Reported. Results Created Date Observation Date Name Description Value Unit Range Abnormal Flag Note LastModifiedBy Organization Detail LastModifiedTime 08/04/20 24 08/04/2024 PROTH ROMBI N TIME prothrombin time 11.5 secon ds 9.2-11 .0 high Not Available [facility] [address] [place], [address], 08/04/2024 08:45:13 08/04/2008/04/2024 PROTH ROMBI N TIME [...] NICAL PROST HETIC VALVE S Not Available [facility] [address] [place], [address], 08/04/2024 08:45:13 08/04/2008/04/2024 SURGI BRIEN surgical SEE [...] rmed on tissu e from case [id number] 1. The case repor t, slide s, [...] 14:29 Page 1 of 1 Not Available [facility] [address] [place] [address], [address], 08/10/2024 13:53:39 09/03/20 24 09/03/2024 urina lysis panel , auto Unknown Analyte Clean Catch Not Available [facility] [address], [place], [address], 09/03/2024 12:05:04 09/03/20 24 09/03/2024 urina lysis panel , auto Unknown Analyte Yellow Not Available [facility] [address], [place], [address], 09/03/2024 12:05:04 09/03/20 24 09/03/2024 urina lysis panel , auto Unknown Analyte Clear Not Available [facility] [place] [address], [place], [address], 09/03/2024 12:05:04 09/03/20 24 09/03/2024 urina lysis panel , auto Unknown Analyte 1.015 Not Available [facility] [address], [place], [address], 09/03/2024 12:05:04 09/03/20 24 09/03/2024 urina lysis panel , auto Unknown Analyte 1.003- 1.035 Not Available [facility] [address], [place], [address], 09/03/2024 12:05:04 09/03/20 24 09/03/2024 urina lysis panel , auto Unknown Analyte 5.0 Not Available [facility] [address], [place], [address], 09/03/2024 12:05:04 09/03/20 24 09/03/2024 urina lysis panel , auto Unknown Analyte 5.0-8. 0 Not Available [facility] [address], [place], [address], 09/03/2024 12:05:04 09/03/20 24 09/03/2024 urina lysis panel , auto Unknown Analyte Negati ve Not Available [facility] [address], [place], [address], 09/03/2024 12:05:04 09/03/20 24 09/03/2024 urina lysis panel , auto Unknown Analyte Negati ve Not Available [facility] [address], [place], [address], 09/03/2024 12:05:04 09/03/20 24 09/03/2024 urina lysis panel , auto Unknown Analyte Negati ve Not Available [facility] [address], [place], [address], 09/03/2024 12:05:04 09/03/20 24 09/03/2024 urina lysis panel , auto Unknown Analyte Negati ve Not Available [facility] [address], [place], [address], 09/03/2024 12:05:04 09/03/20 24 09/03/2024 urina lysis panel , auto Unknown Analyte Negati ve Not Available [facility] [address], [place], [address], 09/03/2024 12:05:04 09/03/20 24 09/03/2024 urina lysis panel , auto Unknown Analyte Negati ve Not Available [facility] [address], [place], [address], 09/03/2024 12:05:04 09/03/20 24 09/03/2024 urina lysis panel , auto Unknown Analyte >1000 mg/dl Not Available [facility] [address], [place], [address], 09/03/2024 12:05:04 09/03/20 24 09/03/2024 urina lysis panel , auto Unknown Analyte Normal Not Available [facility] [address], [place], [address], 09/03/2024 12:05:04 09/03/20 24 09/03/2024 urina lysis panel , auto Unknown Analyte Negati ve Not Available [facility] [address], [place], [address], 09/03/2024 12:05:04 09/03/2009/03/2024 urina lysis panel , auto Unknown Analyte Negati ve Not Available [facility] [address], [place], [address], 09/03/2024 12:05:04 09/03/20 24 09/03/2024 urina lysis panel , auto Unknown Analyte Normal Not Available [facility] [address], [place], [address], 09/03/2024 12:05:04 09/03/2009/03/2024 urina lysis panel , auto Unknown Analyte Normal 1 mg/dl Not Available [facility] [address], [place], [address], 09/03/2024 12:05:04 09/03/20 24 09/03/2024 urina lysis panel , auto Unknown Analyte Negati ve Not Available [facility] [address], [place], [address], 09/03/2024 12:05:04 09/03/20 24 09/03/2024 urina lysis panel , auto Unknown Analyte Negati ve Not Available [facility] [address], [place], [address], 09/03/2024 12:05:04 09/03/20 24 09/03/2024 urina lysis panel , auto Unknown Analyte 250 Arslan/ul Not Available [facility] [address], [place], [address], 09/03/2024 12:05:04 09/03/20 24 09/03/2024 urina lysis panel , auto Unknown Analyte Negati ve Not Available [facility] [address], [place], [address], 09/03/2024 12:05:04 02/29/20 25 02/28/2025 PSA, serum or plasm a PSA 0.53 NG/mL 0.0 - 4.0 Not Available [facility] [address], [place], [address], 02/28/2025 14:21:40 02/29/20 25 02/28/2025 urina lysis panel , auto Unknown Analyte Clean Catch Not Available [facility] [address], [place], [address], 02/28/2025 14:04:51 02/29/20 25 02/28/2025 urina lysis panel , auto Unknown Analyte Yellow Not Available [facility] [address], [place], [address], 02/28/2025 14:04:51 02/29/20 25 02/28/2025 urina lysis panel , auto Unknown Analyte Clear Not Available [facility] [address], [place], [address], 02/28/2025 14:04:51 02/29/20 25 02/28/2025 urina lysis panel , auto Unknown Analyte 1.020 Not Available [facility] [address], [place], [address], 02/28/2025 14:04:51 02/29/20 25 02/28/2025 urina lysis panel , auto Unknown Analyte 1.003 - 1.030 Not Available [facility] [address], [place], [address], 02/28/2025 14:04:51 02/29/20 25 02/28/2025 urina lysis panel , auto Unknown Analyte 5.0 Not Available [facility] [address], [place], [address], 02/28/2025 14:04:51 02/29/20 25 02/28/2025 urina lysis panel , auto Unknown Analyte 5.0 - 8.0 Not Available [facility] [address], [place], [address], 02/28/2025 14:04:51 02/29/20 25 02/28/2025 urina lysis panel , auto Unknown Analyte 75 Iveth/uL Not Available [facility] [address], [place], [address], 02/28/2025 14:04:51 02/29/20 25 02/28/2025 urina lysis panel , auto Unknown Analyte Negati ve Not Available [facility] [address], [place], [address], 02/28/2025 14:04:51 02/29/20 25 02/28/2025 urina lysis panel , auto Unknown Analyte Negati ve Not Available [facility] [address], [place], [address], 02/28/2025 14:04:51 02/29/20 25 02/28/2025 urina lysis panel , auto Unknown Analyte Negati ve Not Available [facility] [address], [place], [address], 02/28/2025 14:04:51 02/29/20 25 02/28/2025 urina lysis panel , auto Unknown Analyte Trace Not Available [facility] [address], [place], [address], 02/28/2025 14:04:51 02/29/20 25 02/28/2025 urina lysis panel , auto Unknown Analyte Negati ve Not Available [facility] [address], [place], [address], 02/28/2025 14:04:51 02/29/20 25 02/28/2025 urina lysis panel , auto Unknown Analyte >1000 mg/dL Not Available [facility] [address], [place], [address], 02/28/2025 14:04:51 02/29/20 25 02/28/2025 urina lysis panel , auto Unknown Analyte Normal Not Available [facility] [address], [place], [address], 02/28/2025 14:04:51 02/29/20 25 02/28/2025 urina lysis panel , auto Unknown Analyte Negati ve Not Available [facility] [address], [place], [address], 02/28/2025 14:04:51 02/29/20 25 02/28/2025 urina lysis panel , auto Unknown Analyte Negati ve Not Available [facility] [address], [place], [address], 02/28/2025 14:04:51 02/29/20 25 02/28/2025 urina lysis panel , auto Unknown Analyte Normal Not Available [facility] [address], [place], [address], 02/28/2025 14:04:51 02/29/20 25 02/28/2025 urina lysis panel , auto Unknown Analyte Normal Not Available [facility] [address], [place], [address], 02/28/2025 14:04:51 02/29/20 25 02/28/2025 urina lysis panel , auto Unknown Analyte 1 mg/dL Not Available [facility] [address], [place], [address], 02/28/2025 14:04:51 02/29/20 25 02/28/2025 urina lysis panel , auto Unknown Analyte Negati ve Not Available [facility] [address], [place], [address], 02/28/2025 14:04:51 02/29/20 25 02/28/2025 urina lysis panel , auto Unknown Analyte 50 Arslan/uL Not Available [facility] [address], [place], [address], 02/28/2025 14:04:51 02/29/20 25 02/28/2025 urina lysis panel , auto Unknown Analyte Negati ve Not Available [facility] [address] [facility] [address], [place], [address], 02/28/2025 14:04:51 06/06/20 25 06/06/2025 MORPH OLOGY platelet morphology NORMAL normal Not Available [facility] [address] [place], [address], 06/06/2025 16:06:17 06/06/20 25 06/06/2025 MORPH OLOGY ovalocytes SLIGHT abnormal Not Available [facility] [address] [place], [address], 06/06/2025 16:06:17 06/06/20 25 06/06/2025 MORPH OLOGY stomatocytes SLIGHT abnormal Not Available [facility] [address] [place], [address], 06/06/2025 16:06:17 06/06/20 25 06/06/2025 MORPH OLOGY target cells SLIGHT abnormal Not Available [facility] [address] [place], [address], 06/06/2025 16:06:17 06/06/20 25 06/06/2025 MORPH OLOGY dacryocytes SLIGHT abnormal Not Available [facility] [address] [place], [address], 06/06/2025 16:06:17 06/06/20 25 06/06/2025 COMPL ETE BLOOD COUNT white blood cells 5.5 10*3/ uL 3.8-10 .8 normal Not Available [facility] [address] [place] [address], [address], 06/06/2025 16:06:16 06/06/20 25 06/06/2025 COMPL ETE BLOOD COUNT red blood cells 3.67 10*6/ uL 4.20-5 .80 low Not Available [facility] [address] [place] [address], [address], 06/06/2025 16:06:16 06/06/20 25 06/06/2025 COMPL ETE BLOOD COUNT hemoglobin 10.3 g/dL 14.0-1 8.0 low Not Available [facility] [address] [place] [address], [address], 06/06/2025 16:06:16 06/06/20 25 06/06/2025 COMPL ETE BLOOD COUNT hematocrit 32.8 % 40.0-5 2.0 low Not Available [facility] [address] [place] [address], [address], 06/06/2025 16:06:16 06/06/20 25 06/06/2025 COMPL ETE BLOOD COUNT MCV 89 fL 80-100 normal Not Available [facility] [address] [place] [address], [address], 06/06/2025 16:06:16 06/06/20 25 06/06/2025 COMPL ETE BLOOD COUNT MCH 28 pg 26-35 normal Not Available [facility] [address] [place] [address], [address], 06/06/2025 16:06:16 06/06/20 25 06/06/2025 COMPL ETE BLOOD COUNT MCHC 31 g/dL 32-36 low Not Available [facility] [address] [place] [address], [address], 06/06/2025 16:06:16 06/06/20 25 06/06/2025 COMPL ETE BLOOD COUNT RDW 23.0 % 11.0-1 5.0 high Not Available [facility] [address] [place] [address], [address], 06/06/2025 16:06:16 06/06/20 25 06/06/2025 COMPL ETE BLOOD COUNT MPV 7.3 fL 6.2-10 .5 normal Not Available [facility] [address] [place] [address], [address], 06/06/2025 16:06:16 06/06/20 25 06/06/2025 COMPL ETE BLOOD COUNT platelet count 326 10*3/ uL 150-40 0 normal Not Available [facility] [address] [place] [address], [address], 06/06/2025 16:06:16 06/06/20 25 06/06/2025 COMPL ETE BLOOD COUNT neutrophil,a bsolute 3.5 10*3/ uL 1.6-8. 4 normal Not Available [facility] [address] [place] [address], [address], 06/06/2025 16:06:16 06/06/20 25 06/06/2025 COMPL ETE BLOOD COUNT lymphocyte,a bsolute 0.7 10*3/ uL 0.4-5. 1 normal Not Available [facility] [address] [place] [address], [address], 06/06/2025 16:06:16 06/06/20 25 06/06/2025 COMPL ETE BLOOD COUNT monocyte,abs olute 0.5 10*3/ uL 0.0-1. 2 normal Not Available [facility] [address] [place] [address], [address], 06/06/2025 16:06:16 06/06/20 25 06/06/2025 COMPL ETE BLOOD COUNT eosinophil,a bsolute 0.7 10*3/ uL 0.0-0. 8 normal Not Available [facility] [address] [place] [address], [address], 06/06/2025 16:06:16 06/06/20 25 06/06/2025 COMPL ETE BLOOD COUNT basophil,abs olute 0.1 10*3/ uL 0.0-0. 3 normal Smear revie wed to confi rm cell morph ology . Not Available [facility] [address] [place] [address], [address], 06/06/2025 16:06:16 06/06/20 25 06/06/2025 COMPL ETE BLOOD COUNT % neutrophils 63.9 % 42.0-7 8.0 normal Not Available [facility] [address] [place] [address], [address], 06/06/2025 16:06:16 06/06/20 25 06/06/2025 COMPL ETE BLOOD COUNT % lymphocytes 13.1 % 11.0-4 7.0 normal Not Available [facility] [address] [place] [address], [address], 06/06/2025 16:06:16 06/06/20 25 06/06/2025 COMPL ETE BLOOD COUNT % monocytes 8.8 % 0.0-11 .0 normal Not Available [facility] [address] [place] [address], [address], 06/06/2025 16:06:16 06/06/20 25 06/06/2025 COMPL ETE BLOOD COUNT % eosinophils 13.2 % 0.0-7. 0 high Not Available [facility] [address] [place] [address], [address], 06/06/2025 16:06:16 06/06/20 25 06/06/2025 COMPL ETE BLOOD COUNT % basophils 1.0 % 0.0-3. 0 normal Not Available [facility] [address] [place] [address], [address], 06/06/2025 16:06:16 06/06/20 25 06/06/2025 COMPL ETE BLOOD COUNT nucleated red cells 0.3 % 0.0-0. 9 normal Not Available [facility] [address] [place] [address], [address], 06/06/2025 16:06:16 06/06/20 25 06/06/2025 COMPL ETE BLOOD COUNT nucleated RBCs, absolute 0.02 10*3/ uL not estab. normal Not Available [facility] [address] [place], [address], 06/06/2025 16:06:16 06/06/20 25 06/06/2025 PSA, TOTAL [...] not be nyla rable . Not Available [facility] [place], [address], 06/06/2025 15:01:06 06/06/20 25 06/06/2025 PSA, TOTAL AND FREE free PSA 0.17 NG/mL normal Test metho d is based on WHO-s tanda rdize d calib ratio n using the Ekta E801 fadia zer. Free PSA resul ts by diffe rent test proce dures canno t be direc tly nyla red with one anoth er. Not Available [facility] [address] [place], [address], 06/06/2025 15:01:06 06/06/20 25 06/06/2025 PSA, TOTAL AND FREE % free PSA 63 % normal ____ PSA ng/mL % FREE PSA Proba bilit y of Prost ate Cance r % ____ Less than 4.00 N/A 17% 4.0 - 10.0 0-10 56% 10-15 28% 15-20 20% 20-25 16% Great er than 25 8% Great er than 10.0 N/A 49% ____ Not Available [facility] [address] [place] [address], [address], 06/06/2025 15:01:06 06/06/20 25 06/06/2025 COMP. METAB OLIC PANEL glucose 101 mg/dL 74-100 high Not Available [facility] [address] [place] [address], [address], 06/06/2025 14:55:03 06/06/20 25 06/06/2025 COMP. METAB OLIC PANEL blood urea nitrogen 22 mg/dL 6-20 high Not Available [facility] [address] [place] [address], [address], 06/06/2025 14:55:03 06/06/20 25 06/06/2025 COMP. METAB OLIC PANEL creatinine 0.97 mg/dL 0.70-1 .20 normal Not Available [facility] [address] [place] [address], [address], 06/06/2025 14:55:03 06/06/20 25 06/06/2025 COMP. METAB OLIC PANEL BUN/creatini ne ratio 23 (calc ) 10-20 high Not Available [facility] [address] [place] [address], [address], 06/06/2025 14:55:03 06/06/20 25 06/06/2025 COMP. METAB OLIC PANEL sodium 144 mmol/ L 136-14 5 normal Not Available [facility] [address] [place] [address], [address], 06/06/2025 14:55:03 06/06/20 25 06/06/2025 COMP. METAB OLIC PANEL potassium 3.7 mmol/ L 3.4-5. 0 normal Not Available [facility] [address] [place] [address], [address], 06/06/2025 14:55:03 06/06/20 25 06/06/2025 COMP. METAB OLIC PANEL chloride 103 mmol/ L 98-107 normal Not Available [facility] [address] [place] [address], [address], 06/06/2025 14:55:03 06/06/20 25 06/06/2025 COMP. METAB OLIC PANEL carbon dioxide 27 mmol/ L 22-31 normal Not Available [facility] [address] [place] [address], [address], 06/06/2025 14:55:03 06/06/20 25 06/06/2025 COMP. METAB OLIC PANEL anion gap 14 (calc ) 7-25 normal Not Available [facility] [address] [place] [address], [address], 06/06/2025 14:55:03 06/06/20 25 06/06/2025 COMP. METAB OLIC PANEL calcium 10.0 mg/dL 8.6-10 .2 normal Not Available [facility] [address] [place] [address], [address], 06/06/2025 14:55:03 06/06/20 25 06/06/2025 COMP. METAB OLIC PANEL total protein 6.9 g/dL 6.4-8. 3 normal Not Available [facility] [address] [place] [address], [address], 06/06/2025 14:55:03 06/06/20 25 06/06/2025 COMP. METAB OLIC PANEL albumin 4.4 g/dL 3.5-5. 2 normal Not Available [facility] [address] [place] [address], [address], 06/06/2025 14:55:03 06/06/20 25 06/06/2025 COMP. METAB OLIC PANEL globulin 2.5 1.5-4. 5 normal Not Available [facility] [address] [place] [address], [address], 06/06/2025 14:55:03 06/06/20 25 06/06/2025 COMP. METAB OLIC PANEL albumin/glob ulin ratio 1.8 (calc ) 1.1-2. 5 normal Not Available [facility] [address] [place] [address], [phone], 06/06/2025 14:55:03 06/06/20 25 06/06/2025 COMP. METAB OLIC PANEL bilirubin, total 0.3 mg/dL 0.1-1. 0 normal NOTE: New refer ence range . Not Available [facility] [address] [place] [address], [address], 06/06/2025 14:55:03 06/06/20 25 06/06/2025 COMP. METAB OLIC PANEL alkaline phosphatase 85 U/L 40-129 normal Not Available [facility] [address] [place], [address], 06/06/2025 14:55:03 06/06/20 25 06/06/2025 COMP. METAB OLIC PANEL AST 25 U/L 0-40 normal Not Available [facility] [address] [place] [address], [address], 06/06/2025 14:55:03 06/06/20 25 06/06/2025 COMP. METAB OLIC PANEL ALT 32 U/L 0-41 normal Not Available [facility] [address] [place], [address], 06/06/2025 14:55:03 06/06/20 25 06/06/2025 COMP. METAB [...] pedia tric patie nts refer to https ://bhakit w.mary sommers.o rg/pr ofess ional s/KDO QI/gf r_cal culat orPed Not Available [facility] [address] [place], [address], 06/06/2025 14:55:03 06/22/20 24 06/22/2024 MRI, pelvi s, w/wo contr ast [address] [address] Patidc t Name: TRISHA Paige t : [...] st (1 x 10 mL bottle of [facility] [address]- 325-02 ) IV. 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 [address]- 100-64 ) was inject ed IV. After [...] 350 (1 x 50 ml bottle of [facility] 0407-1 414-89 ) admini stered 20 [...] thy. 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 al iliac region and along [...] Escalona MD on 2023 12:24 PM INTERFACE [facility] [address] [place] [address], [address], 09/01/2024 12:29:17 09/27/19 25 09/27/2024 MRI, pelvi s, w/o contr ast [address] [place] [address] Patien t Name: TRISHA Mireles OVERMA N [...] Escalona MD on 025 4:20 PM INTERFACE [facility] [address], [address], 09/27/2024 16:25:25 Result Notes Documentation Provider Name and Address Organization Details Recorded Time Pet-ct, Skull Base To Mid-thigh Scan : [address] [address] Patient Name: ALBERT LEZAMA Patient : 1945 [...] was GFR =50 6.2 mCi Ga-68 PSMA ([facility] [address]-109-36) was injected IV. After an uptake time of 76 minutes, vertex through midthigh PET imaging was performed. This was followed by a low dose attenuation correction/anatomic localization CT from vertex through the midthigh levels. Urinary tract was opacified with an injection of 50 mL Omnipaque 350 (1 x 50 ml bottle of [facility] 2633-7763-17) administered [address] scan. [...] Interpreted By: Tristan Escalona MD Not Available [facility] 09/01/2024 12:29:17 Mri, Pelvis, W/o Contrast : [address] [address] Patient Name: ALBERT LEZAMA Patient : 1945 [...] Interpreted By: Tristan Escalona MD Not Available [facility] 09/27/2024 16:25:25 Problems No Known Problems Procedures Surgical History Date Name Laterality Status Provider Name and Address Organization Details Recorded Time 02/29/20 25 Lupron Administration completed Harleen Monroy [facility] 02/28/2025 14:50:38 09/03/20 24 Lupron Administration completed Sadia Ndiaye [facility] 09/03/2024 13:10:22 Vasectomy completed Sadia Ndiaye [facility] 05/19/2024 15:50:09 procedure on knee completed Sadia Ndiaye [facility] 05/19/2024 15:52:15 mechanical prosthetic aortic valve replacement completed Tammy Curtis [facility] 05/21/2024 09:02:43 Imaging Results None recorded. [...] Updated DateTime 02/28/2025 187.96 cm 23.8 kg/m2 65643.59 g Harleen Porfirio [facility] 02/28/2025 14:14:02 Date Recorded Body height Body mass index (BMI) Body weight Provider Name and Address Organization Details Last Updated DateTime 07/23/2024 187.96 cm 24.4 kg/m2 26423.55 g Tammy Curtis [facility] 07/23/2024 12:18:57 Date Recorded Body height Body mass index (BMI) Body weight Provider Name and Address Organization Details Last Updated DateTime 08/09/2024 187.96 cm 24.4 kg/m2 53117.55 g Grazyna Terrazas [facility] 08/09/2024 14:37:05 Date Recorded Body height Body mass index (BMI) Body weight Provider Name and Address Organization Details Last Updated DateTime 09/03/2024 187.96 cm 24.4 kg/m2 38324.55 g Sadia Ndiaye [facility] 09/03/2024 13:09:35 Social History Question Answer Notes LastModified by Organizat ion Details LastModified Time Tobacco Smoking Status Former Smoker cigarettes Sadia Ndiaye [facility] 05/19/2024 15:49:08 When Did You Quit Smoking? 18+yearssin taco perez 1997 [email or web address] Information not available 05/19/2024 What Was The Date Of Your Most Recent Tobacco Screening? 02/28/2025 [email or web address] Information not available 02/28/2025 What Is Your Relationship Status? [email or web address] Information not available 05/19/2024 How Much Tobacco Do You Smoke? No [email or web address] Information not available 05/19/2024 Has Tobacco Cessation Counseling Been Provided? No Information not available 05/19/2024 Sex: Male Functional Status Question Answer Note LastModified by Organizat ion Details LastModified Time Do you use any illicit or recreational drugs? No [email or web address] Information not available 05/19/2024 Do you or have you ever used any other forms of tobacco or nicotine? No [email or web address] Information not available 05/19/2024 What is your level of alcohol consumption? None Information not available 05/19/2024 Are you currently employed? No retired [email or web address] Information not available 05/19/2024 Mental Status None recorded. Family History Nothing Reported. Medical History Condition Response Sleep Apnea Y Past Encounters Encounter ID Performer Location Encounter Start Date Encounter Closed Date Diagnosis/Indication Diagnosis SNOMED-CT Code Diagnosis ICD10 Code Diagnosis IMO Codes Diagnosis Note [id number] FADY LAMB MD [facility] [address] [place] [address] 05/19/2024 13:25:43 05/21/2024 06:07:21 Prostate specific antigen above reference range 066393214 R97.20 Sailaja astudillo his medical history I [...] needle biopsy of the prostate Large prostate 244262761 N40.0 Continue tamsulosin [id number] FADY LAMB MD [facility] [address] [place] [id number] 07/23/2024 11:25:17 07/23/2024 16:41:36 Prostate specific antigen above reference range 584678159 R97.20 We will arrange for MRI directed transrecta l ultrasound and needle biopsy of the prostate under sedation. Benign pro static hyperplasia with outflow obstruction 909767856 N40.1 Increased frequency of urination 417257259 R35.0 Trial of oxybutynin chloride [id number] FADY LAMB MD SURGERY SCHEDULE [address] [place] [address] 08/04/2024 08:27:28 08/04/2024 08:27:53 [id number] FADY LAMB MD [facility] [address] [place] [id number] 08/09/2024 14:02:05 08/10/2024 04:08:34 Tad hematuria 441449457 R31.0 He is encouraged to drink copious fluids. We discussed that he may have issues with hematuria for prolonged period of time sailaja astudillo his chronic anticoagul ation therapy. Retention of urine 29141 4002 R33.9 Voiding trial today Malignant neoplasm of prostate 897305687 C61 We will refer to radiation oncology. Will arrange for total body bone scan [id number] ZORAIDA GARDNER MD [facility] [address] [place] [address] 08/17/2024 10:55:10 08/30/2024 12:23:43 [id number] FADY LAMB MD [facility] [address] [place] [address] 09/03/2024 11:13:19 09/03/2024 16:46:21 Malignant neoplasm of prostate 378844475 C61 Follow-up 6 months with PSA [id number] ZORAIDA GARDNER MD [facility] [address] [place] [address] 09/17/2024 09:29:57 09/21/2024 10:50:56 [id number] FADY LAMB MD [facility] [address] [place] [address] 02/28/2025 13:16:41 02/28/2025 14:52:53 History of malignant neoplasm of prostate 279168451 Z85.46 [id number] He received a 6-month Eligard injection today and we will see him back in 6 months with PSA [id number] ZORAIDA GARDNER MD [facility] [address] [place] [address] 05/09/2025 13:28:35 06/09/2025 11:15:00 Health Concerns Section Related Observation LastModified by Organization Detai ls LastModified Time None Recorded Concern Status LastModified by Organization Details LastModified Time None Recorded Advance Directives Directive None Recorded Payers Insurance Date Sequence Insurance Name Policy Number Policy Carroll Covered Member ID Carroll Member ID Guarantor Name 02/25/2025 1 [place] Albert Mireles Lise [id number] Albert Chi Lise 06/08/2025 2 FOR LIFE () Albert Lezama [id number] Albert Mireles Lise Notes Date Note Type [...] his biopsy. FADY LAMB MD [address] [place], [address], [facility] 07/25/2024 14:39:29 08/09/2024 text/html Patient is [...] has been to the emergency room at [facility] 3-4 different times for catheter irrigation. Currently is urine is grape juice colored and appears to be old blood. Unfortunately his biopsy has showed several cores positive for high-grade prostate cancer. He had Erica score of 9(5+4) in the area of interest as well as several cores positive on the right side of the prostate. He had Detroit score of 8 on the left side. [...] in the bladder on CT scan at [facility] over the weekend. He is here today [...] was 1.2 earlier today FADY LAMB MD [address] [place] [address] [place], [address], [facility] 08/09/2024 21:13:11 09/03/2024 text/html Patient is here to start LHRH antagonist therapy in anticipation of external beam radiation therapy for prostate cancer. We discussed potential side effects and expectations. He received a 6-month. Lupron injection. FADY LAMB MD [address] [place] [address] [place], [address], [facility] 09/05/2024 22:40:50 02/28/2025 text/html Patient is [...] months. He now seeing Dr. Pappas in [place] as his primary care. FADY LAMB MD [facility] [place], [address], [facility] 02/28/2025 17:48:31
--- OUTSIDE RECORDS SUMMARY | 2025-07-11 05:30 | XMS_ITS | Encounter Summary ---
Author Organization [facility] Address [address] [place] [address] Care Team Providers Care Business Liaison Officer Name Role Phone Abelardo Pappas MD Primary Care Provider +1- [phone] Encounter Details Date Type Department Care Team (Late Contact Info) Description 06/28/2025 Orders Only [facility] [address] [place] [address] Justen Jaimes MD [address] [phone] Malignant neoplasm of prostate (CMS/HCC) Social History [...] Description 11/28/2025 2:00 PM EDT Office Visit [facility] [address] [place] [address] 11/28/2025 3:00 PM EDT Office Visit [facility] [address] [place] [address] Justen Jaimes MD [address] [address] 11/28/2025 3:15 PM EDT Clinical Support [facility] [address] [place] [address] documented as of this encounter Visit Diagnoses Diagnosis Malignant neoplasm of prostate (CMS/HCC) Malignant neoplasm of prostate documented in this encounter Additional Health Concerns Assessment Noted Time PHQ-9 Depression Total Score: 0 12/28/19 1:21 PM EDT A fall risk assessment has been complete d for the patient 06/06/2025 3:46 PM EDT documented as of this encounter Care Teams Business Liaison Officer Relationship Specialty Start Date End Date Abelardo Pappas MD [address] [place] [address] PCP - General 06/04/25 documented as of this encounter
--- OUTSIDE RECORDS SUMMARY | 2025-07-11 05:30 | XMS_ITS | Encounter Summary ---
Author Organization [facility] Address [address] [place] [address] Care Team Providers Care Heavy Media Operator Name Role Phone Abelrado Pappas MD Primary Care Provider +1- [phone] Encounter Details Date Type Department Care Team (Late st Contact Info) Description 06/06/2025 Orders Only [facility] [address] [place] [phone] Justen Jaimes MD [address] [facility] [address] [place] [phone] Social History Tobacco Use Types Packs/Day Years [...] Description 11/28/2025 2:00 PM EDT Office Visit [facility] [address] [place] [address] 11/28/2025 3:00 PM EDT Office Visit [facility] [address] [place] [address] Justen Jaimes MD [address] [address] 11/28/2025 3:15 PM EDT Clinical Support [facility] [address] [place] [address] documented as of this encounter [...] as of this encounter Care Teams Heavy Media Operator Relationship Specialty Start Date End Date Abelardo Pappas MD [address] [place] [address] PCP - General 06/04/25 documented as of this encounter
--- OUTSIDE RECORDS SUMMARY | 2025-07-11 05:30 | XMS_ITS | Encounter Summary ---
Author Organization [facility] Address [address] [place] [address] Care Team Providers Care Worm Picker Name Role Phone Abelardo Pappas MD Primary Care Provider +1- [phone] Encounter Details Date Type Department Care Team (Late st Contact Info) Description 06/06/[address] [facility] [address] [place] [phone] Justen Jaimes MD [address] [facility] [address] [place] [phone] Social History Tobacco Use Types Packs/Day Years [...] [facility] [address] [place] [address] 11/28/2025 3:00 PM EDT Office Visit [facility] [address] [place] [address] Justen Jaimes MD [address] [address] 11/28/2025 3:15 PM EDT Clinical Support [facility] [address] [place] [address] documented as of this encounter Procedures Procedure Name Priority Date/Time Associated Diagnosis Comments RBC MORPHOLOGY ([facility]) Routine 06/06/2025 1:50 PM EDT documented in this encounter Results * (ABNORMAL) RBC MORPHOLOGY (EXTERNAL) (06/06/2025 1:50 PM EDT) External Platelet Morphology NORMAL 06/06/2025 4:06 PM EDT [facility] External Ovalocytes SLIGHT(A) 06/06/2025 4:06 PM EDT [facility] External Stomatocyte SLIGHT(A) 06/06/2025 4:06 PM EDT [facility] External Target Cells SLIGHT(A) 06/06/2025 4:06 PM EDT [facility] External Tear Drop Cells SLIGHT(A) 06/06/2025 4:06 PM EDT [facility] 06/06/2025 1:50 PM EDT 06/06/2025 2:21 PM EDT us Justen Jaimes MD LAB BLOOD ORDERABLES Flaca ledezma Result [facility] [address] [place] [address], documented in this encounter Visit Diagnoses Not on filedocumented in this encounter Additional Health Concerns Assessment Noted Time PHQ-9 Depression Total Score: 0 12/28/19 1:21 PM EDT A fall risk assessment has been complete d for the patient 06/06/2025 3:46 PM EDT documented as of this encounter Care Teams Worm Picker Relationship Specialty Start Date End Date Abelardo Pappas MD [address] [place] [address] PCP - General 06/04/25 documented as of this encounter
--- OUTSIDE RECORDS SUMMARY | 2025-07-11 05:30 | XMS_ITS | Data Portability ---
Author Organization [place] - [facility] [employer] [facility] Address [address] [place] [address] Care Team Providers Care Ecd Name Role Phone FRED MURILLO Primary Care [...] Address Organization Details Recorded Time Diabetes mellitus 33044950 Active 2022 Faraz Jefferson null, [place] - [facility] 3 13:55:39 Essential hypertension 04837067 Active 2022 Faraz Jefferson null, [place] - [facility] 3 13:55:49 Anticoagulan t therapy Active 2022 MANDY Hart null, [place] - [facility] 3 13:26:20 Osteoarthrit is 185276343 Active 2022 MANDY Hart null, [place] - [facility] 3 13:26:33 Erectile dysfunction 605516026 Active 2022 MANDY Hart null, [place] - [facility] 3 13:26:40 Benign prostatic hyperplasia 034205412 Active 2022 MANDY Hart null, [place] - [facility] 3 13:26:49 Hyperlipidem ia 18602977 Active 2022 MANDY Hart null, [facility] 3 13:26:55 Problem Notes None recorded. Medical [...] Quit in 24 years ago Chani Drake [facility], [place] - [facility] 11/16/2021 15:33:17 Are You Blind Or [...] Functional Status Question Answer Note LastModified by [employer] ion Details LastModified Time Do you use [...] Mental Status Question Answer Note LastModified by [employer] ion Details LastModified Time Do you feel stressed (tense, restless, nervous, or anxious, or unable to sleep at night)? ON14965-9 Information not available 11/16/2021 Do you have [...] Main [address] [place] [address] 11/16/2021 15:19:12 12/25/2021 23:31:53 Essential hypertension 60646794 I10 Uncontroll ed type 2 diabetes mellitus 288933818 E11.65 4710 Srikanth Edwards MD [facility] [address] [place] [address] 11/26/2021 14:38:42 01/08/2022 12:37:48 Diabetes mellitus 06624727 E11.9 Essential hypertension 89394115 I10 5926 Srikanth Edwards MD [facility] Main [address] [place] [address] 12/07/2021 15:42:51 01/03/2022 21:27:02 Diabetes mellitus 23752364 E11.9 Essential hypertension 29517733 I10 6729 Srikanth Edwards MD [place] [facility] [place] [address] [place] [address] 12/14/2021 16:04:16 01/29/2022 03:54:52 Diabetes mellitus 34280699 E11.9 Essential hypertension 49161748 I10 7470 Srikanth Edwards MD [place] [address] [place] [address] 12/21/2021 16:01:40 01/29/2022 03:54:53 Diabetes mellitus 42226229 E11.9 Essential hypertension 92088156 I10 9186 Srikanth Edwards MD [place] [address] [place] [address] 01/04/2022 16:02:31 01/29/2022 03:54:56 Diabetes mellitus 85809668 E11.9 Essential hypertension 76943336 I10 10442 Srikanth Edwards MD [place] [address] [place] [address] 01/11/2022 16:17:47 01/28/2022 16:14:32 Diabetes mellitus 67506053 E11.9 Essential hypertension 06083660 I10 17476 Srikanth Edwards MD [place] [address] [place] [address] 01/18/2022 16:12:09 02/14/2022 15:53:17 Diabetes mellitus 12737542 E11.9 Essential hypertension 28555823 I10 39631 Srikanth Edwards MD [place] [address] [place] [address] 01/25/2022 16:12:01 01/25/2022 22:10:14 Diabetes mellitus 28867752 E11.9 Essential hypertension 77319071 I10 89981 Srikanth Edwards MD [place] [address] [place] [address] 02/01/2022 16:08:44 02/04/2022 10:47:52 Diabetes mellitus 31689383 E11.9 Essential hypertension 74195109 I10 25799 Srikanth Edwards MD [place] [address] [place] [address] 02/08/2022 16:21:37 03/24/2022 13:15:23 Diabetes mellitus 09992685 E11.9 Essential hypertension 47891791 I10 78531 Srikanth Edwards MD [place] [address] [place] [address] 02/15/2022 16:03:42 02/19/2022 14:34:17 Diabetes mellitus 40051713 E11.9 Essential hypertension 04611854 I10 72050 Srikanth Edwards MD [place] [address] [place] [address] 02/22/2022 16:04:55 03/17/2022 23:46:42 Diabetes mellitus 96618405 E11.9 Essential hypertension 16178721 I10 77393 MD ANIBAL Teixeira [address] [place] [address] 03/01/2022 16:07:59 03/17/2022 21:45:58 Diabetes mellitus 54237243 E11.9 Essential hypertension 39402147 I10 66728 MD ANIBAL Teixeira [address] 03/08/2022 16:05:33 04/05/2022 03:53:43 Diabetes mellitus 55980427 E11.9 Essential hypertension 22621308 I10 89669 MD ANIBAL Teixeira [address] [place] [address] 03/15/2022 16:11:27 04/26/2022 03:53:33 Diabetes mellitus 12236784 E11.9 Essential hypertension 27692485 I10 92683 MD ANIBAL Teixeira [address] [place] [address] 04/05/2022 16:21:27 04/24/2022 14:56:34 Diabetes mellitus 42134052 E11.9 Essential hypertension 04532104 I10 69481 MD ANIBAL Teixeira [address] [place] [address] 04/19/2022 16:15:15 05/30/2022 03:54:38 Diabetes mellitus 69351091 E11.9 Essential hypertension 20151064 I10 02353 MD ANIBAL Teixeira [address] [place] [address] 05/03/2022 16:55:42 05/29/2022 15:30:59 Diabetes mellitus 57182514 E11.9 Essential hypertension 83336503 I10 58906 Rajendra Hart, JOWL TRIMMER-WELDER FABRICATOR [place] [address] [place] [address] 05/17/2022 16:05:31 06/27/2022 03:53:23 Diabetes mellitus 69614448 E11.9 Essential hypertension 45265726 I10 99658 Rajendra Hart JOWL TRIMMER-WELDER FABRICATOR [facility] [address] [place] [address] 05/31/2022 16:14:33 06/27/2022 03:53:27 Diabetes mellitus 30363215 E11.9 Essential hypertension 56047712 I10 26441 Rajendra Hart JOWL TRIMMER-WELDER FABRICATOR [facility] [address] [place] [address] 06/14/2022 16:18:22 06/26/2022 10:53:41 Diabetes mellitus 43069366 E11.9 Essential hypertension 26802393 I10 36205 Rajendra Hart JOWL TRIMMER-WELDER FABRICATOR [place] [facility] [address] [place] [address] 06/28/2022 16:33:56 08/01/2022 03:52:38 Diabetes mellitus 56553990 E11.9 Essential hypertension 72864879 I10 96151 Rajendra Hart JOWL TRIMMER-WELDER FABRICATOR [facility] [address] [place] [address] 07/12/2022 16:20:00 07/31/2022 14:32:30 Diabetes mellitus 80429572 E11.9 Essential hypertension 87376843 I10 23831 Rajendra Hart JOWL TRIMMER-WELDER FABRICATOR [facility] [address] [place] [address] 07/26/2022 16:20:55 11/19/2022 10:48:00 Diabetes mellitus 00576429 E11.9 Essential hypertension 20788883 I10 94031 Rajendra Hart JOWL TRIMMER-WELDER FABRICATOR [facility] [address] [place] [address] 08/16/2022 16:30:19 08/19/2022 12:09:55 Diabetes mellitus 10792242 E11.9 Essential hypertension 08445435 I10 72464 Rajendra Hart JOWL TRIMMER-WELDER FABRICATOR [facility] [address] [place] [address] 08/30/2022 16:12:03 11/29/2022 13:02:35 Diabetes mellitus 74792670 E11.9 Essential hypertension 28307638 I10 86630 SUSAN Welsh [place] [address] [place] [address] 09/13/2022 16:53:17 12/30/2022 00:26:22 Diabetes mellitus 82448755 E11.9 Essential hypertension 29359466 I10 51202 SUSAN Welsh [place] [address] [place] [address] 09/27/2022 16:19:22 12/30/2022 18:51:10 Diabetes mellitus 95383014 E11.9 Essential hypertension 38119461 I10 27320 SUSAN Welsh [facility] [address] [place] [address] 10/11/2022 16:17:43 01/18/2023 14:30:53 Diabetes mellitus 73444672 E11.9 Essential hypertension 29979224 I10 50043 SUSAN Welsh_Nursin g Schedule [address] [place] [address] 10/25/2022 16:34:28 01/29/2023 11:50:46 Diabetes mellitus 55613789 E11.9 Patient's glucose readings are trending higher in the mornings, but normal after meals. Fasting glucose this morning was 149. Pt states this is due to veering away from diabetic diet due to 's medical issues but will try to do better. Encouraged pt to continue checking blood glucose daily and choose diabetic friendly foods. Essential hypertension 70815194 I10 Patient's blood pressure readings are trending [...] as prescribed , and exercise as tolerated. 93868 SUSAN Welsh_Nursin g Schedule [address] [place] [address] 11/08/2022 17:39:15 02/15/2023 21:45:57 Diabetes mellitus 19261652 E11.9 Essential hypertension 08958312 I10 74890 Rajendra Hart APRN-WELDER FABRICATOR NS_Nursin g Schedule [address] [place] [address] 11/22/2022 16:15:15 11/22/2022 16:41:00 Diabetes mellitus 09322413 E11.9 Essential hypertension 08500937 I10 84168 Rajendra Hart APRN-WELDER FABRICATOR NS[facility] Schedule [address] [place] [address] 12/13/2022 16:16:33 12/13/2022 16:24:25 Diabetes mellitus 47482976 E11.9 Essential hypertension 06244698 I10 892361 Rajendra Hart APRN-WELDER FABRICATOR NS[facility]Nursin g Schedule [address] [place] [address] 01/17/2023 16:46:22 01/17/2023 16:52:09 Diabetes mellitus 64345902 E11.9 Essential hypertension 85759091 I10 145679 Rajendra Hart APRN-WELDER FABRICATOR NS[facility]Nursin g Schedule [address] [place] [address] 01/30/2023 15:12:10 01/30/2023 16:46:05 Diabetes mellitus 21884807 E11.9 Essential hypertension 61610741 I10 540321 Rajendra Hart APRN-WELDER FABRICATOR NS[facility]Nursin g Schedule [address] [place] [address] 02/07/2023 16:02:31 02/07/2023 16:07:35 Diabetes mellitus 53106987 E11.9 Essential hypertension 90942490 I10 410175 Rajendra Hart APRN-WELDER FABRICATOR NS[facility]Nursin g Schedule [address] [place] [address] 02/21/2023 16:28:58 02/21/2023 16:34:55 Diabetes mellitus 17112896 E11.9 Essential hypertension 19325408 I10 862456 TODD CHOWDHURY NP NS_Nursin g Schedule [address] [place] [address] 03/07/2023 15:48:39 03/07/2023 15:53:49 Diabetes mellitus 05408637 E11.9 Essential hypertension 47625345 I10 681415 TODD CHOWDHURY NP NS_Nursin g Schedule [address] [place] [address] 03/21/2023 15:40:28 03/21/2023 15:50:36 Diabetes mellitus 21064526 E11.9 Essential hypertension 94662627 I10 497143 TODD CHOWDHURY NP NS_Nursin g Schedule [address] [place] [address] 04/04/2023 15:45:51 04/04/2023 15:54:30 Diabetes mellitus 91277938 E11.9 Essential hypertension 24949054 I10 495226 TODD CHOWDHURY NP NS_Nursin g Schedule [address] [place] [address] 04/18/2023 15:33:35 04/18/2023 15:43:13 Diabetes mellitus 96851259 E11.9 Essential hypertension 96620251 I10 092174 TODD CHOWDHURY NP NS_Nursin g Schedule [address] [place] [address] 05/02/2023 15:42:42 05/02/2023 15:47:40 Diabetes mellitus 89260613 E11.9 Essential hypertension 47916195 I10 516162 TODD CHOWDHURY NP NS_Nursin g Schedule [address] [place] [address] 05/23/2023 15:43:29 05/23/2023 15:50:23 Diabetes mellitus 87524943 E11.9 Essential hypertension 48303363 I10 218883 TODD CHOWDHURY NP NS_Nursin g Schedule [address] [place] [address] 06/06/2023 15:28:59 06/06/2023 15:39:02 Diabetes mellitus 80787390 E11.9 Essential hypertension 33064687 I10 912434 TODD CHOWDHURY NP NS_Nursin g Schedule [address] [place] [address] 07/18/2023 17:43:20 07/21/2023 09:45:32 Diabetes mellitus 99850873 E11.9 Essential hypertension 07096685 I10 595222 TODD CHOWDHURY NP NS_Nursin g Schedule [address] [place] [address] 08/01/2023 17:36:40 08/04/2023 10:06:54 Diabetes mellitus 90126880 E11.9 Essential hypertension 85423468 I10 689420 TODD CHOWDHURY NP NS_Nursin g Schedule [address] [place] [address] 08/22/2023 16:42:04 08/27/2023 10:54:09 Diabetes mellitus 12656660 E11.9 Essential hypertension 61413594 I10 245868 Annalise Taylor NP NS_Nursin g Schedule [address] [place] [address] 09/05/2023 17:28:17 09/05/2023 17:49:18 Diabetes mellitus 83125631 E11.9 Essential hypertension 44929487 I10 972652 Annalise Taylor NP NS_Nursin g Schedule [address] [place] [address] 10/31/2023 15:53:43 11/03/2023 15:44:35 Diabetes mellitus 26704349 E11.9 Essential hypertension 29477900 I10 485611 Annalise Taylor NP NS_Nursin g Schedule [address] [place] [address] 11/28/2023 17:25:32 11/28/2023 17:37:46 Essential hypertension 16111479 I10 Diabetes mellitus 148184 09 E11.9 532565 Annalise Taylor NP NS_Nursin g Schedule [address] [place] [address] 12/03/2023 17:39:49 12/03/2023 17:50:36 Essential hypertension 24301011 I10 Diabetes mellitus 172679 09 E11.9 154617 Annalise Taylor NP NS_Nursin g Schedule [address] [place] [address] 12/17/2023 16:31:39 12/17/2023 16:39:03 Essential hypertension 89733219 I10 Diabetes mellitus 830426 E11.9 233063 Annalise Taylor NP NS_Nursin g Schedule [address] [place] [address] 12/31/2023 16:49:01 12/31/2023 16:56:48 Essential hypertension 39409487 I10 Diabetes mellitus 696876 E11.9 480317 Annalise Taylor NP NS_Nursin g Schedule [address] [place] [address] 01/14/2024 17:14:28 01/14/2024 17:25:19 Essential hypertension 67037789 I10 Diabetes mellitus 469471 E11.9 859960 Annalise Taylor NP NS_Nursin g Schedule [address] [place] [address] 01/28/2024 17:09:51 01/28/2024 17:19:17 Essential hypertension 23646350 I10 Diabetes mellitus 447555 E11.9 272413 KELLY Carreon_Nursin g Schedule [address] [place] [address] 02/25/2024 16:39:38 02/25/2024 16:49:57 Essential hypertension 90957007 I10 Diabetes mellitus 175539 E11.9 519942 Annalise Taylor NP PS_Provid er Schedule [address] [place] [address] 02/26/2024 16:38:32 02/26/2024 16:48:12 Diabetes mellitus 51505210 E11.9 -Continue the following medication s as [...] no fluid restrictio n? YES. Essential hypertension 20442834 I10 -Continue the following medication s as [...] restrictio n? YES.Watchi ng salt intake? YES. 625897 KELLY Carreon_Nursin g Schedule [address] [place] [address] 03/10/2024 17:35:11 03/11/2024 09:38:18 Essential hypertension 60389015 I10 Diabetes mellitus 214344 E11.9 277103 KELLY Carreon_Nursin g Schedule [address] [place] [address] 03/24/2024 16:31:57 03/24/2024 16:49:23 Essential hypertension 09043012 I10 Diabetes mellitus 521572 E11.9 876703 KELLY Carreon_Nursin g Schedule [address] [place] [address] 04/07/2024 16:38:20 04/07/2024 16:53:36 Essential hypertension 58677296 I10 Diabetes mellitus 781864 E11.9 050925 KELLY Carreon_Nursin g Schedule [address] [place] [address] 04/23/2024 15:44:06 04/23/2024 15:55:49 Essential hypertension 36048777 I10 Diabetes mellitus 167139 E11.9 555006 KELLY Carreon_Nursin g Schedule [address] [place] [address] 05/19/2024 16:41:13 05/19/2024 16:57:22 Essential hypertension 51417939 I10 Diabetes mellitus 291120 E11.9 810237 KELLY Carreon_Nursin g Schedule [address] [place] [address] 06/02/2024 16:39:18 06/02/2024 16:58:29 Essential hypertension 78499778 I10 Diabetes mellitus 857644 09 E11.9 701652 Annalise Taylor, PATENT COUNSEL NS_Nursin g Schedule [address] [place] [address] 06/16/2024 15:57:59 06/16/2024 16:15:11 Essential hypertension 45619380 I10 Diabetes mellitus 040656 E11.9 754383 Annalise Taylor, PATENT COUNSEL NS_Nursin g Schedule [address] [place] [address] 06/30/2024 16:33:01 06/30/2024 16:45:21 Essential hypertension 43211798 I10 Diabetes mellitus 323822 E11.9 636159 Annalise Taylor, PATENT COUNSEL NS_Nursin g Schedule [address] [place] [address] 07/14/2024 16:18:27 07/14/2024 16:38:25 Diabetes mellitus 03797702 E11.9 Essential hypertension 32933571 I10 950078 Annalise Taylor, KELLY NS_Nursin g Schedule [address] [place] [address] 07/21/2024 17:39:48 07/21/2024 18:00:12 Essential hypertension 56797466 I10 Diabetes mellitus 849074 E11.9 885456 Annalise Taylor NP NS_Nursin g Schedule [address] [place] [address] 07/28/2024 17:47:57 07/28/2024 18:03:49 Diabetes mellitus 19206176 E11.9 Diabetes mellitus Essential hypertension 16040079 I10 Essential hypertensi on 074934 Annalise Taylor NP NS_Nursin g Schedule [address] [place] [address] 08/11/2024 17:24:32 08/11/2024 17:28:35 Diabetes mellitus 20520612 E11.9 Diabetes mellitus Essential hypertension 26244515 I10 Essential hypertensi on 683123 Annalise Taylor NP NS_Nursin g Schedule [address] [place] [address] 08/18/2024 17:45:40 08/18/2024 18:00:35 Diabetes mellitus 88923279 E11.9 Diabetes mellitus Essential hypertension 75911987 I10 Essential hypertensi on 828103 Annalise Taylor, PATENT COUNSEL NS_Nursin g Schedule [address] [place] [address] 08/25/2024 17:32:06 08/25/2024 17:45:47 Diabetes mellitus 86085164 E11.9 Diabetes mellitus Essential hypertension 86175260 I10 Essential hypertensi on 357613 Annalise Taylor, PATENT COUNSEL NS_Nursin g Schedule [address] [place] [address] 09/01/2024 17:04:25 09/01/2024 17:12:44 Diabetes mellitus 02723444 E11.9 Diabetes mellitus Essential hypertension 23279529 I10 Essential hypertensi on 132840 Annalise Taylor, KELLY NS_Nursin g Schedule [address] [place] [address] 09/09/2024 12:13:36 09/09/2024 12:16:47 Diabetes mellitus 44345766 E11.9 Diabetes mellitus Essential hypertension 35645679 I10 Essential hypertensi on 473697 Annalise Taylor, KELLY NS_Nursin g Schedule [address] [place] [address] 09/22/2024 18:18:09 09/23/2024 00:42:25 Diabetes mellitus 38224614 E11.9 Diabetes mellitus Essential hypertension 90563479 I10 Essential hypertensi on 610508 Annalise Taylor, KELLY NS_Nursin g Schedule [address] [place] [address] 09/29/2024 17:43:59 09/29/2024 17:52:53 Diabetes mellitus 85778164 E11.9 Diabetes mellitus Essential hypertension 32779302 I10 Essential hypertensi on 445424 Annalise Taylor, PATENT COUNSEL PS_Provid er Schedule [address] [place] [address] 10/05/2024 16:19:13 10/05/2024 16:30:38 Diabetes mellitus 63398443 E11.9 Diabetes mellitus Essential hypertension 02252919 I10 Hypertensi on Ongoing Care Plan - [...] while enrolled- As needed as concerns arise 793297 KELLY Carreon_Nursin g Schedule [address] [place] [address] 10/06/2024 16:48:08 10/06/2024 16:49:21 Diabetes mellitus 99312985 E11.9 Diabetes mellitus Essential hypertension 15042812 I10 Essential hypertensi on 079594 KELLY Carreon_Nursin g Schedule [address] [place] [address] 10/06/2024 17:45:23 10/06/2024 18:02:20 Diabetes mellitus 12796797 E11.9 Diabetes mellitus Essential hypertension 91983341 I10 Essential hypertensi on 585211 KELLY Carreon_Nursin g Schedule [address] [place] [address] 10/13/2024 16:35:33 10/13/2024 17:08:55 Diabetes mellitus 72008246 E11.9 Diabetes mellitus Essential hypertension 61415230 I10 Essential hypertensi on 590616 KELLY Carreon_Nursin g Schedule [address] [place] [address] 10/20/2024 16:40:00 10/20/2024 17:00:03 Diabetes mellitus 02259741 E11.9 Diabetes mellitus Essential hypertension 88458189 I10 Essential hypertensi on 983719 Annalise Taylor, PATENT COUNSEL NS_Nursin g Schedule [address] [place] [address] 10/27/2024 17:15:42 10/27/2024 17:26:09 Diabetes mellitus 09356128 E11.9 Diabetes mellitus Essential hypertension 25321450 I10 Essential hypertensi on 087630 Annalise Taylor, PATENT COUNSEL NS_Nursin g Schedule [address] [place] [address] 11/03/2024 16:31:49 11/03/2024 16:47:04 Diabetes mellitus 58423941 E11.9 Diabetes mellitus Essential hypertension 72508764 I10 Essential hypertensi on 542390 Annalise Taylor, PATENT COUNSEL NS_Nursin g Schedule [address] [place] [address] 11/10/2024 16:22:43 11/10/2024 16:31:06 Diabetes mellitus 04426034 E11.9 Diabetes mellitus Essential hypertension 89323490 I10 Essential hypertensi on 388441 Annalise Taylor, PATENT COUNSEL NS_Nursin g Schedule [address] [place] [address] 11/11/2024 10:18:10 11/11/2024 10:24:38 Diabetes mellitus 38336054 E11.9 Diabetes mellitus Essential hypertension 38450336 I10 Essential hypertensi on 442347 Annalise Taylor, PATENT COUNSEL NS_Nursin g Schedule [address] [place] [address] 11/17/2024 16:20:28 11/17/2024 16:41:39 Diabetes mellitus 43938679 E11.9 Diabetes mellitus Essential hypertension 63469424 I10 Essential hypertensi on 010913 Annalise Taylor, PATENT COUNSEL NS_Nursin g Schedule [address] [place] [address] 11/24/2024 16:44:33 11/24/2024 16:55:25 Diabetes mellitus 90634760 E11.9 Diabetes mellitus Essential hypertension 82861277 I10 Essential hypertensi on 666550 Annalise Taylor, PATENT COUNSEL NS_Nursin g Schedule [address] [place] [address] 11/25/2024 08:40:30 11/25/2024 08:42:30 Diabetes mellitus 85732510 E11.9 Diabetes mellitus Essential hypertension 22382776 I10 Essential hypertensi on 207025 Annalise Taylor, KELLY NS_Nursin g Schedule [address] [place] [address] 12/01/2024 16:47:39 12/01/2024 16:58:01 Diabetes mellitus 02641544 E11.9 Diabetes mellitus Essential hypertension 19649190 I10 Essential hypertensi on 843755 Annalise Taylor NP NS_Nursin g Schedule [address] [place] [address] 12/08/2024 16:18:09 12/08/2024 16:35:01 Diabetes mellitus 55909640 E11.9 Diabetes mellitus Essential hypertension 54798653 I10 Essential hypertensi on Goals Section Goal [...] restricting artificial sweetener use NoChange active 2023 [place] Information not available 01/28/2024 21:18:56 Health Concerns Section Related Observation LastModified by Organization Detai ls LastModified Time None Recorded Concern Status LastModified by Organization Details LastModified Time None Recorded Advance Directives Directive None Recorded Payers Insurance Date Sequence Insurance Name Policy Number Policy Carroll Covered Member ID Carroll Member ID Guarantor Name 11/17/2024 [place] Martin Lezama [id number] Martin Lezama 11/17/2024 1 [place] Martin Lezama [id number] Martin Lezama 11/17/2024 [place] Martin Lezama [id number] Martin Lezama 01/19/2025 2 FOR LIFE ( - MEDICARE SUPPLEMENT) Martin Lezama [id number] Martin Lezama
--- OUTSIDE RECORDS SUMMARY | 2025-07-11 05:30 | XMS_ITS | Data Portability ---
Author Organization [facility], [facility] [place] Address 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 He has constipation associated with Riverdale use. Plan: 1. I advised Mr. Lezama [...] T, skull base to mid-t high scan [address] [place] [address] Patien t Name: TRISHA Rizo Chi Tsang [...] was GFR =50 6.2 mCi Ga-68 PSMA ([facility] [id number] ) was inject ed IV. After [...] 350 (1 x 50 ml bottle of [facility] [id number] ) admini stered [...] thy. 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 SPACE- OAR HYDROG EL: No gel is [...] Escalona MD on 025 4:20 PM rlavey [facility] Radiology [address], [address], 09/27/2024 19:31:11 Result Notes Documentation Provider Name and Address Organization Details Recorded Time Pet-ct, Skull Base To Mid-thigh Scan : [address] [address] Patient Name: MARTIN LEZAMA Patient : 1945 [...] was GFR =50 6.2 mCi Ga-68 PSMA ([facility] [id number]) was injected IV. After an uptake time of 76 minutes, vertex through midthigh PET imaging was performed. This was followed by a low dose attenuation correction/anatomic localization CT from vertex through the midthigh levels. Urinary tract was opacified with an injection of 50 mL Omnipaque 350 (1 x 50 ml bottle of [facility] [id number]) administered [address] scan. [...] Tristan Escalona MD IDA GARDNER MD [address], [place], [address] 09/01/2024 12:51:05 Mri, Pelvis, W/o Contrast : [facility] [address] [place] [address] Patient Name: MARTIN LEZAMA Patient : 1945 [...] MD IDA GARDNER MD [address], [place], [address], [facility] 09/27/2024 19:31:11 Procedures Surgical History Date Name Laterality Status Provider Name and Address Organization Details Recorded Time 09/17/19 25 Prostate marker placement with SpaceOAR completed ZORAIDA GARDNER MD [address], [place], [address], [facility] 09/20/2024 21:49:03 10/16/18 98 mechanical prosthetic aortic valve replacement [facility] 08/17/2024 12:00:45 09/15/18 98 procedure on knee completed Roselyn Roberts [facility] 08/17/2024 12:01:01 09/15/18 80 [facility] 08/17/2024 12:01:12 Imaging Results None recorded. [...] Updated DateTime 09/17/2024 187.96 cm Roselyn Rivera [facility] 09/17/2024 10:38:39 Date Recorded Body height Body mass index (BMI) Body weight Body temperature Heart rate Oxygen saturation Oxygen saturation in Arterial blood by Pulse oximetry Systolic And Diastolic Provider Name and Address Organization Details Last Updated DateTime 187.96 cm 25.4 kg/m2 00721.2 9 g 97.7 [degF] 63 /min 92 % 92 % 130/62 mm[Hg] Roselyn Rivera [facility] 5 13:37:37 Date Recorded Body height Body mass index (BMI) Body weight Body temperature Heart rate Oxygen saturation Oxygen saturation in Arterial blood by Pulse oximetry Systolic And Diastolic Provider Name and Address Organization Details Last Updated DateTime 4 187.96 cm 24.9 kg/m2 08935.9 2 g 97.2 [degF] 66 /min 94 % 94 % 102/54 mm[Hg] Roselyn Rivera [facility] 4 11:31:12 Social History Question Answer Notes LastModified by Organizat ion Details LastModified Time Tobacco Smoking Status Former Smoker Roselyn Rivera [facility] 08/17/2024 11:34:36 What Is Your Level Of [...] ICD10 Code Diagnosis IMO Codes Diagnosis Note [id number] FADY LAMB MD [facility] [address] [place] [address] 05/19/2024 13:25:43 05/21/2024 06:07:21 [id number] FADY LAMB MD [facility] [address] [place] [address] 07/23/2024 11:25:17 07/23/2024 16:41:36 [id number] FADY LAMB MD SURGERY SCHEDULE [address] [place] [address] 08/04/2024 08:27:28 08/04/2024 08:27:53 [id number] FADY LAMB MD [facility] [address] [place] [address] 08/09/2024 14:02:05 08/10/2024 04:08:34 [id number] ZORAIDA GARDNER MD [facility] [address] [place] [address] 08/17/2024 10:55:10 08/30/2024 12:23:43 Malignant neoplasm of prostate [id number] C61 [id number] FADY LAMB MD [facility] [address] [place] [address] 09/03/2024 11:13:19 09/03/2024 16:46:21 [id number] ZORAIDA GARDNER MD [facility] [address] [place] [address] 09/17/2024 09:29:57 09/21/2024 10:50:56 Malignant neoplasm of prostate [id number] C61 [id number] FADY LAMB MD [facility] [address] [place] [address] 02/28/2025 13:16:41 02/28/2025 14:52:53 [id number] ZORAIDA GARDNER MD [facility] [place] [address] [place] [address] 05/09/2025 13:28:35 06/09/2025 11:15:00 Malignant neoplasm of prostate [id number] C61 [id number] 11/28/2025 APPT Health Concerns Section Related Observation LastModified by Organization Detai ls LastModified Time None Recorded Concern Status LastModified by Organization Details LastModified Time None Recorded Advance Directives Directive None Recorded Payers Insurance Date Sequence Insurance Name Policy Number Policy Carroll Covered Member ID Carroll Member ID Guarantor Name 02/25/2025 1 [place] Martin Lezama [id number] Martin Lezama 06/08/2025 2 FOR LIFE () Martin Lezama [id number] Martin Lezama Notes Date Note Type Note [...] of the prostate by Dr. Lamb found Dowling 5+4 = 9 adenocarcinoma involving between 5% and 100% of all 6 cores taken from the right side with 90% grade 4, equals Dowling score 4+5=9 adenocarcinoma involving 95% - 100% [...] on 08/09/2024. Mr. 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 His DIVINA score is 25 out of 25 with the use of Viagra. He has regular bowel movements without melena, hematochezia, tenesmus, or frequent diarrhea. 1 benign polyp was resected at his most recent colonoscopy in 2021. He smoked 1 pack of cigarettes daily for 20 years but quit in 1997. ZORAIDA GARDNER MD [address], [place], [address], [facility] 08/29/2024 11:53:22 05/09/2025 text/html ROS as noted [...] but recurred on 05/05/2025. He takes 1-2 Riverdale 5/325 mg tablets daily, Robaxin 750 mg [...] denies having hot flashes. ZORAIDA GARDNER MD [address], [place], [address], [facility] 06/08/2025 20:29:30
[2025-07-11 05:31] VITALS: BP 156/60; PULSE 57; O2SAT 90
[2025-07-11 05:33] LABS: Hematocrit 31.8 % (42.0-52.0); Hemoglobin 10.1 g/dL (14.1-18.0); Immature Granulocytes % 1.3 %; Mean Corpuscular HGB Conc 31.8 g/dL (31.8-35.4); Mean Corpuscular Hemoglobin 29.8 pg (27.0-31.2); Mean Corpuscular Volume 93.8 fl (80-94); Nucleated Red Blood Cells % 0.3 %; Platelet Count 293 K/mm3 (142-424); Red Blood Count 3.39 M/mm3 (4.60-6.20); Red Cell Distribution Width-SD 75.7 fL; White Blood Count 6.3 K/mm3 (4.8-10.8)
[2025-07-11 05:41] LABS: Albumin Level 4.4 g/dl (3.5-5.0); Chloride 101 mmol/L (98-107); Potassium 4.0 mmoL/L (3.5-5.1); Sodium 138 mmol/L (136-145)
[2025-07-11 05:44] LABS: Alanine Aminotransferase 69 U/L (12-78); Albumin/Globulin Ratio 1.4 (1.1-1.8); Alkaline Phosphatase 83 U/L (38-126); Anion Gap 10.0 mEq/L (5-15); Aspartate Amino Transferase 46 U/L (17-59); Bilirubin,Total 0.6 mg/dl (0.2-1.3); Blood Urea Nitrogen 20 mg/dl (9-20); Calcium 8.9 mg/dl (8.4-10.2); Carbon Dioxide 31 mmol/L (22.0-30.0); Creatinine Clearance Estimated 75 mL/min (50-200); Creatinine,Serum 0.80 mg/dl (0.66-1.25); Estimated Glomerular Filt Rate 94 ml/min (>60); GFR (African American) 113 ML/MIN (>60); Globulin 3.1 g/dL (1.3-3.2); Glucose 143 mg/dl (74-100); Total Protein,Serum 7.5 g/dl (6.3-8.2)
[2025-07-11 05:47] LABS: Activated Partial Thrombo Time 29.5 seconds (22.8-30.6); INR 1.19 (0.9-1.1); Prothrombin Time 13.0 seconds (10.1-12.5)
[2025-07-11 05:59] LABS: RBC Morphology Normal; Total Cells Counted 100
[2025-07-11 06:31] VITALS: BP 145/78; PULSE 74; RESP 18; TEMP 36.9; O2SAT 98
[2025-07-11 06:38] LABS: Hepatitis C Ab Qual. W/ RFX NEGATIVE (Negative)
== END 2025-07-11 06:39 | disposition home or self-care (01) ==
PROVIDERS: Emergency Provider Emergency Medicine
DX: L76.22 Postprocedural hemorrhage of skin and subcutaneous tissue following other procedure (principal); I10 Essential (primary) hypertension; E78.5 Hyperlipidemia, unspecified; Z87.311 Personal history of (healed) other pathological fracture; Z86.79 Personal history of other diseases of the circulatory system; Z95.5 Presence of coronary angioplasty implant and graft; Z79.01 Long term (current) use of anticoagulants
CPT/HCPCS: 80053; 85007; 85025; 85610; 85730; 86803; 87389; 99283

== ENCOUNTER 2025-07-12 14:41 | Emergency (ER) | payer MEDICARE, OTHER, SELFPAY ==
--- OUTSIDE RECORDS SUMMARY | 2025-06-06 14:15 | XMS_ITS | Encounter Summary ---
Author Organization [facility] Address [address] [place] [address] Care Team Providers Care Coal Hiker Name Role Phone Abelardo Pappas MD Primary Care Provider +1- [phone] Reason for Visit * Reason Comments Follow-up Encounter Details Date Type Department Care Team (Late st Contact Info) Description 06/06/2025 2:15 PM EDT Office Visit [facility] [address] [place] [phone] Justen Jaimes MD [address] [place] [address] Malignant neoplasm of prostate (CMS/HCC) [...] Jaimes MD - 06/06/2025 2:15 PM EDT [facility] Division of Hematology and Oncology Hematology/Oncology follow [...] transrectal ultrasound biopsies of the prostate pathology: Erica 5+4 =9 adenocarcinoma involving between 5% and 100% of all 6 cores taken from the right side with 90% grade 4, equals Durand score 4+5=9 adenocarcinoma involving 95% - 100% of 2 out of the 3 cores taken from the area of interest with 70% grade 4, and Durand score 4+4 = 8 adenocarcinoma involving between [...] 08/09/2024. - Mr. Lezama was admitted to [facility] [...] prostate cancer Social History: Patient lives in [place] with Social History Tobacco Use Smoking Status [...] MG tablet, , Disp: , Rfl: HYDROcodone-acetaminophen ([place]) 5-325 MG tablet, TAKE ONE TABLET BY [...] 0.3 06/06/2025 As detailed in HPI Imaging: [facility] [address] [place] [address] Patient Name: MARTIN LEZAMA Patient : 1945 [...] was GFR =50 6.2 mCi Ga-68 PSMA ([facility] [id number]) was injected IV. After an uptake time of 76 minutes, vertex through midthigh PET imaging was performed. This was followed by a low dose attenuation correction/anatomic localization CT from vertex through the midthigh levels. Urinary tract was opacified with an injection of 50 mL Omnipaque 350 (1 x 50 ml bottle of [facility] [id number]) administered [address] scan. 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 Kincaid, who recommended bone antiresorptive agent [...] their questions, they verbalized and in agreement. Justen Jaimes MD Medical Oncology/Hematology documented in this encounter Plan of Treatment Upcoming Encounters Date Type Department Care Team (Late st Contact Info) Description 11/28/2025 2:00 PM EDT Office Visit [facility] [address] [place] [address] 11/28/2025 3:00 PM EDT Office Visit [facility] [address] [place] [address] Justen Jaimes MD [address] [place] [phone] 11/28/2025 3:15 PM EDT Clinical Support [facility] [address] [place] [address] Scheduled Orders Name Type Priority Associated Diagnoses [...] - 4.400 ng/mL 06/06/2025 3:01 PM EDT [facility] Comment: This test was performed using Estefania e801 Electrochemiluminescent method. The test method is based on WHO-standardized calibration. Values obtained from different assay methods or manufacturers may not be comparable. External Psa, Free 0.17 ng/mL 2024 3:01 PM EDT [facility] Comment: Test method is based on WHO-standardized calibration using the Estefania E801 analyzer. Free PSA results by different test procedures cannot be directly compared with one another. External Psa- % Free 63 % 05/17 3:01 PM EDT [facility] Comment: PSA ng/mL % FREE PSA Probability of Prostate Cancer % Less than 4.00 N/A 17% 4.0 - 10.0 0-10 56% 10-15 28% 15-20 20% 20-25 16% Greater than 25 8% Greater than 10.0 N/A 49% Blood Venous blood specimen / Unknown 06/06/2025 1:50 PM EDT 06/06/2025 2:21 PM EDT us Justen Jaimes MD LAB BLOOD ORDERABLES Flaca l Result [facility] [address] [place] [address], * (ABNORMAL) Comprehensive Metabolic Panel, Plasma (06/06/2025 1:50 PM EDT) External Glucose 101(H) 74 - 100 mg/dL 06/06/2025 2:55 PM EDT [facility] External BUN 22(H) 6 - 20 mg/dL 06/06/2025 2:55 PM EDT [facility] External Creatinine Blood 0.97 0.70 - 1.20 mg/dL 06/06/2025 2:55 PM EDT [facility] External BUN/Creat Ratio 23(H) 10 - 20 (calc) 06/06/2025 2:55 PM EDT [facility] External Sodium 144 136 - 145 mmol/L 06/06/2025 2:55 PM EDT [facility] External Potassium 3.7 3.4 - 5.0 mmol/L 06/06/2025 2:55 PM EDT [facility] External Chloride 103 98 - 107 mmol/L 06/06/2025 2:55 PM EDT [facility] External Carbon Dioxide (CO2) 27 22 - 31 mmol/L 06/06/2025 2:55 PM T [facility] External Anion Gap (AG) 14 7 - 25 (calc) 06/06/2025 2:55 PM T [facility] External Calcium 10.0 8.6 - 10.2 mg/dL 06/06/2025 2:55 PM T [facility] External Total Protein 6.9 6.4 - 8.3 g/dL 06/06/2025 2:55 PM EDT [facility] External Albumin 4.4 3.5 - 5.2 g/dL 06/06/2025 2:55 PM T [facility] External Globulin 2.5 1.5 - 4.5 025 2:55 PM T [facility] External Albumin/Globulin Ratio 1.8 1.1 - 2.5 (calc) 06/06/2025 2:55 PM T [facility] External Bilirubin Total 0.3 0.1 - 1.0 mg/dL 06/06/2025 2:55 PM T [facility] Comment:NOTE: New reference range. External Alkaline Phosphatase 85 40 - 129 U/L 06/06/2025 2:55 PM T [facility] External AST (SGOT) 25 0 - 40 U/L 06/06/2025 2:55 PM EDT [facility] External ALT (SGPT) 32 0 - 41 U/L 06/06/2025 2:55 PM EDT [facility] External Estimated GFR 80 >=60 06/06/2025 2:55 PM EDT [facility] Comment: NOTE New calculation for GFR (CKD-EPI 2020) is formulated without race adjustment factors at the recommendation of the National Kidney Foundation and [place] [employer] Neph[employer]. This calculation has not been validated in women. For pediatric patients refer to https://www.kidney.org/professionals/KDOQI/gfr_calculatorPed Blood Venous blood specimen / Unknown 06/06/2025 1:50 PM EDT 06/06/2025 2:21 PM EDT us Justen Jaimes MD LAB BLOOD ORDERABLES Flaca ledezma Result [facility] [address] [place] [address], * (ABNORMAL) CBC and Differential (06/06/2025 1:50 PM EDT) External WBC 5.5 3.8 - 10.8 10*3/uL 06/06/2025 4:06 PM EDT [facility] External Red Blood Cell (RBC) 3.67(L) 4.20 - 5.80 10*6/uL 06/06/2025 4:06 PM EDT [facility] External Hemoglobin 10.3(L) 14.0 - 18.0 g/dL 06/06/2025 4:06 PM EDT [facility] External Hematocrit 32.8(L) 40.0 - 52.0 % 06/06/2025 4:06 PM EDT [facility] External MCV 89 80 - 100 fL 06/06/2025 4:06 PM EDT [facility] External MCH 28 26 - 35 pg 06/06/2025 4:06 PM EDT [facility] External MCHC 31(L) 32 - 36 g/dL 06/06/2025 4:06 PM EDT [facility] External RDW 23.0(H) 11.0 - 15.0 % 06/06/2025 4:06 PM EDT [facility] External Mean Platelet Volume 7.3 6.2 - 10.5 fL 06/06/2025 4:06 PM EDT [facility] External Platelet Count (Plt) 326 150 - 400 10*3/uL 06/06/2025 4:06 PM EDT [facility] External Neutrophil# 3.5 1.6 - 8.4 10*3/uL 06/06/2025 4:06 PM EDT [facility] External Lymphocyte# 0.7 0.4 - 5.1 10*3/uL 06/06/2025 4:06 PM EDT [facility] External Absolute Monocyte (Abs [place]) 0.5 0.0 - 1.2 10*3/uL 06/06/2025 4:06 PM EDT [facility] External Eosinophils# 0.7 0.0 - 0.8 10*3/uL 06/06/2025 4:06 PM EDT [facility] External Baso# 0.1 0.0 - 0.3 10*3/uL 06/06/2025 4:06 PM EDT [facility] Comment:Smear reviewed to co nfirm cell morphology. External Neutrophils % 63.9 42.0 - 78.0 % 06/06/2025 4:06 PM EDT [facility] External Lymphocyte % 13.1 11.0 - 47.0 % 06/06/2025 4:06 PM EDT [facility] External Monocyte % 8.8 0.0 - 11.0 % 06/06/2025 4:06 PM EDT [facility] External Eosinophil% 13.2(H) 0.0 - 7.0 % 06/06/2025 4:06 PM EDT [facility] External Basophil % 1.0 0.0 - 3.0 % 06/06/2025 4:06 PM T [facility] External Nucleated RBC%-Auto 0.3 0.0 - 0.9 % 06/06/2025 4:06 PM T [facility] External Nucleated RBC Absolute 0.02 Not Estab. 10*3/uL 06/06/2025 4:06 PM T [facility] Blood Venous blood specimen / Unknown 06/06/2025 1:50 PM EDT 06/06/2025 2:21 PM EDT Justen Jaimes MD LAB BLOOD ORDERABLES Flaca ledezma Result Performing Organization Address City/State/[facility] Co de Phone Number [facility] [address] [place] [address], documented in this encounter Visit Diagnoses Diagnosis Malignant neoplasm of prostate (CMS/HCC)- Primary Malignant neoplasm of prostate Osteopenia of multiple sites documented in this encounter Additional Health Concerns Assessment Noted Time PHQ-9 Depression Total Score: 0 12/28/19 1:21 PM EDT A fall risk assessment has been complete d for the patient 06/06/2025 3:46 PM EDT documented as of this encounter Care Teams Coal Hiker Relationship Specialty Start Date End Date Abelardo Pappas MD [address] [place] [address] PCP - General 06/04/25 documented as of this encounter
--- OUTSIDE RECORDS SUMMARY | 2025-06-06 14:30 | XMS_ITS | Encounter Summary ---
Author Organization [facility] Address [address] [place] [address] Care Team Providers Care Catalyst Concentration Operator Name Role Phone Abelardo Pappas MD Primary Care Provider +1- [phone] Reason for Visit * Reason Comments Injections * Episode Based Medications (Routine) - Authorized Specialty Diagnoses / Procedures Referred By Contdarien t Referred To Contact Diagnoses Osteopenia of multiple sites Justen Jaimes MD [address] [address] Phone: tel: fax: Justen Jaimes MD [address] [address] Phone: tel: fax: Referral ID Status Reason Start Date Expiration Date V isits Requested Visits Authorized [id number] Authorized 06/13/2025 12/13/2026 1 2 Encounter Details Date Type Department Care Team (Late st Contact Info) Description 06/06/2025 2:30 PM EDT Infusion [facility] [place] [facility] [address] [address] [place] [address] Osteopenia of multiple sites (Primary [...] from the original note were not included. [id number] Denosumab Injection IMPORTANT WARNING: Denosumab injection products [...] doctor or pharmacist will give you the enrolled nurse's patient information sheet (Medication Guide) when you begin treatment with denosumab injection products. Read the information carefully and ask your doctor or pharmacist if you have any questions. You can also visit the Food and Drug Administration (FDA) website (https://www.fda.gov/Drugs/DrugSafety/yoi217265.htm) (or the enrolled nurse's website) to obtain the Medication Guide. Talk [...] or doctor for a copy of the enrolled nurse's information for the patient. Are there OTHER [...] of all of the prescription and nonprescription (bnla-xmu-srhryhz) medicines, vitamins, minerals, and dietary supplements you [...] or pharmacist about specific clinical use. The [place] [employer] represents that the information provided hereunder was formulated with a reasonable standard of care, and in conformity with professional standards in the field. The [place] [employer] makes no representations or warranties, express or implied, including, but not limited to, any implied warranty of merchantability and/or fitness for a particular purpose, with respect to such information and specifically disclaims all such warranties. Users are advised that decisions regarding drug therapy are complex medical decisions requiring the independent, informed decision of an appropriate health customer care voice consultant, and the information is provided for informational purposes only. The entire monograph for a drug should be reviewed for a thorough understanding of the drug's actions, uses and side effects. The [place] [employer] does not endorse or recommend the use of any drug.The information is not a substitute for medical care. AHFS?? Patient Medication Information?. ?? Copyright, 2023. The [place] [employer]-System Pharmacists??, [address], [address], [place], [place]. All Rights Reserved. Duplication for commercial use must be authorized by [facility]. AHFS?? Patient Medication Information?. ?? Copyright, 2024 documented in this encounter Plan of Treatment Upcoming Encounters Date Type Department Care Team (Late st Contact Info) Description 11/28/2025 2:00 PM EDT Office Visit [facility] at [address] [address] 11/28/2025 3:00 PM EDT Office Visit [facility] at [address] [address] Justen Jaimes MD [address] [place] [phone] 11/28/2025 3:15 PM EDT Clinical Support [facility] at [address] [address] documented as of this encounter Visit Diagnoses [...] documented as of this encounter Care Teams Catalyst Concentration Operator Relationship Specialty Start Date End Date Abelardo Pappas MD [address] [place] [address] PCP - General 06/04/25 documented as of this encounter
[2025-07-12 14:43] VITALS: BP 106/56; PULSE 77; RESP 22; TEMP 36.2; O2SAT 97; BMI 24.3
--- NOTE | 2025-07-12 15:05 | ED_ITS ---
Discharge Plan Disposition Patient Disposition: Home, Self-Care Prescriptions Prescriptions: No Action oxybutynin chloride 10 mg tablet extended release 24hr 10 mg PO DAILY Patient Comments: TAKE ONE TABLET BY MOUTH EVERY DAY FOR urine urgency tamsulosin 0.4 mg capsule 0.8 mg PO DAILY lisinopril 2.5 mg tablet 2.5 mg PO DAILY Qty: 90 3RF methotrexate sodium 2.5 mg tablet 10 mg PO WEEKLY Rx Instructions: Take 4 tablets weekly each Friday AM folic acid 1 mg tablet 1 mg PO DAILY hydrochlorothiazide 25 mg tablet 25 mg PO DAILY Qty: 90 3RF calcium carbonate-vitamin D3 [Calcium 600 with Vitamin D3] 600 mg-12.5 mcg (500 unit) capsule See Rx Instructions PO BID Qty: 60 5RF Rx Instructions: orally twice a day; 1 capsule BID atenolol 50 mg tablet 50 mg PO DAILY Qty: 90 3RF simvastatin 20 mg tablet 20 mg PO DAILY Qty: 90 0RF glipizide 10 mg tablet 10 mg PO DAILY Qty: 90 0RF dapagliflozin propanediol 10 mg tablet See Rx Instructions .ROUTE .COMPLEX Qty: 90 0RF Dose Instruction: TAKE 1 TABLET DAILY Rx Instructions: TAKE 1 TABLET DAILY warfarin 4 mg tablet See Rx Instructions .ROUTE .COMPLEX Qty: 90 0RF Dose Instruction: TAKE 1 TABLET DAILY Rx Instructions: TAKE 1 TABLET DAILY enoxaparin [Lovenox] 100 mg/mL syringe 90 mg SQ Q12H Qty: 20 0RF hydrocodone-acetaminophen 5-325 mg tablet 1 tab PO Q8H PRN (Reason: pain) Qty: 90 0RF Lupron Depot (6 Month) 45 mg Syringe Kit 45 mg IM Q6 Rx Instructions: EVERY 6 MONTHS Orencia ClickJect 125 mg/mL auto-injector 125 mg SQ .monthy methocarbamol 750 mg tablet 750 mg PO TID Qty: 90 2RF Prolia 60 mg/mL Syringe 60 mg SQ Q6M Referrals Follow up/Referrals: Abelardo Pappas MD [Primary Care Provider, Family Practice] - See instructions Activity Restrictions/Add. Instructions Additional Instructions/Restrictions: Thank you for allowing us to care for you. We placed 1 stitch at your surgical site. This needs to come out in about 10 days. Your primary care provider can do this, your surgeon can do this, or you may return to the emergency department for us to remove the stitch. Please continue to follow-up with your surgeon as previously planned. Return to the emergency department any symptoms worsen. Clinical Impressions Clinical Impression: Post-op bleeding Instructions Patient Instructions: DI for Laceration Repair Print Language Print Language: Estonian Discharge ED Provider: Rakesh Zamudio General Adult HPI General Chief complaint: Wound/Laceration Stated complaint: Bleeding from surgical site Time Seen by Provider: 07/12/25 15:01 Mode of Arrival: Wheelchair Source of Information: Patient Description of Symptoms (Recalled from ER Triage Doc. by RN): PT had kyphoplasty on 07/08, pt states he experienced bleeding starting on friday morning. Pt was seen at the hospital yesterday and surgiseal was placed on the surgical site. Today the pt is back with c/o bleeding again. Pt was on lovenox injections from surgery, but also started taking his warfarin again as well. History of Present Illness HPI narrative: This is a 79-year-old male with a history of T2DM who is 4 days s/p kyphoplasty (Dr. Negro 07/08/25) currently on Lovenox and transitioning back to warfarin for his mechanical aortic valve who presents to the emergency department today for evaluation of surgical site bleeding. Patient reports steady bleeding that has been ongoing since his operation. He has been seen multiple times for this problem. He was most recently here yesterday and bleeding was controlled with Surgicel and H&H was stable. Patient continues to have a steady ooze from the wound. He called his surgeon who recommended he go to [place] for evaluation. Patient's did not feel comfortable driving him all the way there so brought him to the emergency department here. Patient reported lightheadedness and dizziness when transitioning from sitting to standing and had a near syncopal episode when he arrived to our facility. Prior to this, he had not felt this way at home. Related Data Home Medications ?Medication ?Instructions ?Recorded ?Confirmed tamsulosin 0.4 mg capsule 0.8 mg PO DAILY 09/10/23 oxybutynin chloride 10 mg 10 mg PO DAILY 09/23/2406/16 tablet,extended release 24 hr leuprolide acetate (6 month) 45 mg 45 mg IM Q6 5 07/12/25 intramuscular syringe kit (Lupron Depot) abatacept 125 mg/mL subcutaneous 125 mg SQ .monthy 07/12/25 auto-injector (Orencia ClickJect) folic acid 1 mg tablet 1 mg PO DAILY 05/23/2507/12 methotrexate sodium 2.5 mg tablet 10 mg PO WEEKLY 05/0907/12/25 denosumab 60 mg/mL subcutaneous 60 mg SQ Q6M 07/05/25 07/12/25 syringe (Prolia) Previous Rx's ?Medication ?Instructions ?Recorded lisinopril 2.5 mg tablet 2.5 mg PO DAILY #90 tabs 04/08 hydrochlorothiazide 25 mg tablet 25 mg PO DAILY #90 ta bs 12/27/24 calcium 600 mg (as See Rx Instructions PO BID # 60 caps 01/13/25 carbonate)-vitamin D3 12.5 mcg (500 unit) capsule (Calcium with Vit D3) atenolol 50 mg tablet 50 mg PO DAILY BLOOD PRESSUR E #90 02/28/25 tabs simvastatin 20 mg tablet 20 mg PO DAILY #90 tabs 05/09 methocarbamol 750 mg tablet 750 mg PO TID #90 tabs 06/09 glipizide 10 mg tablet 10 mg PO DAILY #90 tabs 04/16 06/09 dapagliflozin propanediol 10 mg See Rx Instructions .R oute 06/09/25 tablet .COMPLEX #90 tabs warfarin 4 mg tablet See Rx Instructions .Route 0 06/09/25 .COMPLEX #90 tabs enoxaparin 100 mg/mL subcutaneous 90 mg (0.9 mL) SQ Q1 2H 06/28/25 syringe (Lovenox) anticoagulation, mechanical heart valve #20 mL hydrocodone 5 mg-acetaminophen 325 1 tab PO Q8H PRN pa in #90 tabs 07/05/25 mg tablet Allergies Allergy/AdvReac Type Severity Reaction Status Date / Time No Known Allergies Allergy Verified 07/12/25 15:21 [facility] Disclaimer: The information contained in this section may have been updated after the patient was seen, as this information can be updated by other users. 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 Surgical History H/O mechanical aortic valve replacement Family History Other No significant family history Social History Smoking Status: Never smoker alcohol intake: never substance use type: denies use current occupational status: retired and other Travel in the last 8 weeks?: None household members: spouse housing: house caffeine: Yes Have you lived/traveled outside US in past 30 days?: No Contact w/someone who lives/traveled outside US past 30 days?: No Exposure to someone with infectious disease in past 14 days?: No Do you have a fever (greater than 100.4 F or 38 C)?: No Have you tested positive for COVID-19?: No Exposed to someone with COVID-19 in past 14 days?: No Do you have a sore throat?: No Do you have a cough?: No Do you have any weakness?: No Do you have any diarrhea?: No Are you experiencing any unusual bleeding?: No Do you have any muscle aches/pain?: No Do you have any abdominal pain?: No Are you experiencing loss of taste or smell?: No Other Medical History Have you received the Flu Vaccine for this season: Yes Have you received the Pneumonia Vaccine: Yes ROS Obtained: Yes Systems reviewed as appropriate & no additional complaints except as documented Physical Exam General General appearance: alert and in no apparent distress Comment: Patient appears pale but is nontoxic appearing. Head Head exam: atraumatic and normocephalic Neck Neck exam: Present full ROM Respiratory Respiratory exam: Present normal lung sounds bilaterally; Absent respiratory distress Cardiovascular Cardiovascular exam: Present regular rate and normal rhythm Abdominal Exam Abdominal exam: Present soft; Absent distention or tenderness Back Exam Comment: Dressing covering kypho surgical incision Neurological Exam Neurological exam: Present alert and oriented X3 Medical Decision Making Medical Records Screening: Per USPSTF and CDC recommendations, given the prevalence of disease in our region, it is our hospital?s policy to screen for HIV and viral Hepatitis for all patients aged 18 and over and those with ongoing risk factors. Hugo Inquiry Pt receiving controlled substance: No Vital Signs: 07/12/25 14:43 07/12/25 16:26 07/12/25 16:30 Temperature 97.2 F L Temperature Source Temporal Artery Scan Pulse Rate 74 69 Pulse Rate [Right] 77 Respiratory Rate 22 17 19 Blood Pressure 101/56 L 108/58 L Blood Pressure [Right Arm] 106/56 L Blood Pressure Mean [Right Arm] 72 Blood Pressure Source [Right Arm] Automatic Cuff Blood Pressure Position [Right Arm] Sitting 02 Sat by Pulse Oximetry 97 95 94 L Oxygen Delivery Method Room Air Room Air 07/12/25 16:45 07/12/25 17:00 Temperature Temperature Source Pulse Rate 65 70 Pulse Rate [Right] Respiratory Rate 24 17 Blood Pressure 112/58 L 104/55 L Blood Pressure [Right Arm] Blood Pressure Mean [Right Arm] Blood Pressure Source [Right Arm] Blood Pressure Position [Right Arm] 02 Sat by Pulse Oximetry 91 L 92 L Oxygen Delivery Method Lab Data Lab Results 07/12/25 15:05: WBC 9.3 D, RBC 3.36 L, Hgb 10.1 L, Hct 31.2 L, MCV 92.9, MCH 30.1, MCHC 32.4, RDW 22.7 H, Plt Count 350, MPV 9.1, Neut % (Auto) 76.3, Lymph % (Auto) 10.0, [place] % (Auto) 7.4, Eos % (Auto) 4.5, Baso % (Auto) 0.4, Neut # (Auto) 7.1, Lymph # (Auto) 0.9, [place] # (Auto) 0.7, Eos # (Auto) 0.4, Baso # (Auto) 0.0, PT 17.2 H, INR 1.60 H, APTT 32.7 H, Sodium 136, Potassium 4.0, Chloride 102, Carbon Dioxide 28, Anion Gap 10.0, BUN 20, Creatinine 0.90, Estimated Creat Clear 75, Estimated GFR 82, Est GFR ( Amer) 99, Glucose 140 H, Calcium 9.3, Total Bilirubin 0.7, AST 51, ALT 67, Alkaline Phosphatase 84, Total Protein 7.7, Albumin 3.8 D, Globulin 3.9 H, Albumin/Globulin Ratio 1.0 L 07/12/25 15:14: Blood Type A Positive, Antibody Screen Positive 07/12/25 15:05 07/12/25 15:05 Orders (Tests/Meds): ED MEDICATIONS Discontinued Medications Generic Name Dose Route Start Last Admin Trade Name Yeimy PRN Reason Stop Dose Admin Sodium Chloride 500 ml 07/12/25 17:50 07/12/25 18:10 Sodium Chloride 0.9% 500ml Bag IV 07/12/25 17:51 500 ml ONCE ONE Administration ORDERS Category Date Time Status Antibody Identification Stat [facility] 07/12/25 15:14 Received Type and Screen Stat K 07/12/25 15:14 Completed CBC w/Auto Diff [Complete Blood Count Auto Diff] Stat Lab 07/12/25 15:05 Completed CMP [Comprehensive Metabolic Panel] Stat Lab 07/12/25 15:05 Completed PT INR [Prothrombin Time INR] Stat Lab 07/12/25 15:05 Completed PT/PTT Stat Lab 07/12/25 15:05 Completed Medical Decision Narrative: In summary, this is a 79-year-old male with T2DM on Lovenox bridge to warfarin for mechanical valve who is 4 days status post kyphoplasty with steady bleeding since then. Patient continues to bleed despite direct pressure and multiple office and ED visits attempting to control post-surgical bleeding. He was evaluated yesterday and had stable labs, bleeding was controlled, and he was ultimately sent home. Patient had a presyncopal episode with transitioning from sitting to standing today. He denies any dark stools or other sources of bleeding. On exam patient is sitting comfortably on hospital stretcher. He appears pale but is nontoxic appearing. He is hypotensive but vital signs are otherwise normal. Dressing and Tegaderm removed from the patient's surgical site. There is still active oozing from the site. Other surgical site ports are hemostatic, clean, dry and intact with no evidence of infection or bleeding. Will obtain laboratory workup including CBC, CMP, PT, PTT, type and screen. 3:34 PM CBC stable from yesterday's visit. H&H stable. Hemoglobin 10.1 and same as yesterday. INR 1.6, improving from yesterday but still not at goal therapy. CMP nonactionable. Given wound continues to bleed, we discussed treatment options with patient and his family. We will suture the bleed and reassess. 5:40 PM Surgical site remains hemostatic. We will reassess once more before discharge. 6:40 PM No further bleeding. Patient will follow-up with his surgeon or PCP in 10 days for suture removal. If he is unable to arrange that, he will return to the emergency department for suture removal. If any symptoms worsen or bleeding returns, they will return to the emergency department. If he has any lightheadedness or dizziness, he will seek reevaluation. Return precautions were discussed and understood and all questions have been answered at this time. Procedures Laceration surgical site: Site: back Side (If applicable): left Description: other (surgical port site) Local Anesthetic: lidocaine 1% and with epi Skin layer closed with: nylon Size (cm): 3-0 Number of sutures: 1 Technique: other (figure of 8 ) Critical Care Critical Care Time Critical Care Time: No
--- NOTE | 2025-07-12 15:07 | ECG_ITS ---
APPROVED REPORT Exam: Resting ECG HR:76 bpm ECG Measurements Heart Rate 76 AXES WA 198 P -24 QRSd 101 QRS -2 QT 427 T 68 QTc 458 Conclusion SINUS RHYTHM INFERIOR MYOCARDIAL INFARCTION , OF INDETERMINATE AGE [40+ ms Q WAVE AND/OR ST/T ABNORMALITY IN II/aVF] ABNORMAL ECG Electronically signed by : CHRISTA SEASL, 07/12/2025 16:27:17
--- OUTSIDE RECORDS SUMMARY | 2025-07-12 15:12 | XMS_ITS | Referral Summary ---
Author Organization [employer] ([place], [place], [place], [place]) Address [address] [place] [address] Care Team Providers Care Hat Sprayer Name Role Phone Tristan Billings DO Primary Care Provider [phone] Allergies No known active allergies Medications glipiZIDE [...] any time in the past 12 m [facility], were you homeless or living [...] Do you speak a language other than Jamaican at [facility]? 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
--- OUTSIDE RECORDS SUMMARY | 2025-07-12 15:12 | XMS_ITS | Clinical Summary ---
Author Organization [facility] Address [address] [place] [address] Care Team Providers Care Applications Project Manager Name Role Phone Abelardo Pappas MD Primary Care Provider +1- [phone] Allergies Active Allergy Reactions Criticality Noted Date [...] (one) time each day. Active HYDROcodone-newton taminophen ([place]) 5-325 MG tablet TAKE ONE TABLET BY [...] Department Care Team Description 06/28/2025 Orders Only [facility] at [address] [place] [address] Justen Jaimes MD Malignant neoplasm of prostate (CMS/HCC) 06/06/2025 2:30 PM EDT Infusion [facility] at [place] [address] [place] [address] Osteopenia of multiple sites (Primary Dx) 06/06/2025 2:15 PM EDT Office Visit [facility] [address] [place] [address] Justen Jaimes MD Malignant neoplasm of prostate (CMS/HCC) (Primary Dx); Osteopenia of multiple sites 06/06/2025 Orders Only [facility] at [facility] [address] [place] [facility] [place] [place] [address] Justen Jaimes MD 06/06/2025 Orders Only [facility] at [facility] [address] [place] [address] Justen Jaimes MD 06/06/2025 Travel 06/04/2025 Travel 06/01/2025 Orders Only [facility] at [facility] [address] [place] [address] Justen Jaimes MD 05/11/2025 Abstract [facility] at [facility] [address] [place] [address] Justen Jaimes MD from Last 3 Months [...] Visit [facility] at [facility] [address] [place] [address] 11/28/2025 3:00 PM EDT Office Visit [facility] at [facility] [address] [place] [address] Justen Jaimes MD [address] [address] 11/28/2025 3:15 PM EDT Clinical Support [facility] at [facility] [address] [place] [address] Health Maintenance Due Date Last Done Comments [facility]-Hepatitis C Screening 1945 [facility]-Medicare Annual Wellness (AWV) 1945 [facility]-Infant/Child/Adol SDOH Screenings 1945 [facility]-Obesity Intervention 1953 [facility]- SDOH Screenings 1965 [facility]-Adult SDOH Screenings 1965 [facility]-Pneumococcal Vaccine: 50 + Years (1 of 2 - PCV) 1966 [facility]-Zoster Vaccines (1 of 2) 1966 [facility]-DTaP,Tdap,and Td Vaccine s (1 - Tdap) 07/25/2010 07/24/2010 [id number] Vaccine (3 - Moderna risk series) 12/20/2020 [...] Priority Date/Time Associated Diagnosis Comments RBC MORPHOLOGY ([facility]) Routine 06/06/2025 1:50 PM EDT PROSTATE [...] Platelet Morphology NORMAL 06/06/2025 4:06 PM EDT [facility] External Ovalocytes SLIGHT(A) 06/06/2025 4:06 PM EDT [facility] External Stomatocyte SLIGHT(A) 06/06/2025 4:06 PM EDT [facility] External Target Cells SLIGHT(A) 06/06/2025 4:06 PM EDT [facility] External Tear Drop Cells SLIGHT(A) 06/06/2025 4:06 PM EDT [facility] 06/06/2025 1:50 PM EDT 06/06/2025 2:21 PM EDT Justen Jaimes MD LAB BLOOD ORDERABLES Flaca ledezma Result [facility] [address] [id number], * (ABNORMAL) CBC and Differential (06/06/2025 1:50 [...] [facility] External Absolute Monocyte (Abs [place]) 0.5 0.0 - 1.2 10*3/uL 06/06/2025 4:06 [...] - 3.0 % 06/06/2025 4:06 PM EDT [facility] External Nucleated RBC%-Auto 0.3 0.0 - 0.9 % 06/06/2025 4:06 PM EDT [facility] External Nucleated RBC Absolute 0.02 Not Estab. 10*3/uL 06/06/2025 4:06 PM EDT [facility] Blood Venous blood specimen / Unknown 06/06/2025 1:50 PM EDT 06/06/2025 2:21 PM EDT us Justen Jaimes MD LAB BLOOD ORDERABLES Flaca ledezma Result [facility] [address] [place] [address], * PSA, percent free, profile (06/06/2025 1:50 [...] Result [facility] [address] [place] [address], * (ABNORMAL) Comprehensive Metabolic Panel, Plasma (06/06/2025 [...] - 25 (calc) 06/06/2025 2:55 PM EDT [facility] External Calcium 10.0 8.6 - 10.2 mg/dL 06/06/2025 2:55 PM EDT [facility] External Total Protein 6.9 6.4 - 8.3 g/dL 06/06/2025 2:55 PM EDT [facility] External Albumin 4.4 3.5 - 5.2 g/dL 06/06/2025 2:55 PM EDT [facility] External Globulin 2.5 1.5 - 4.5 2:55 PM T [facility] External Albumin/Globulin Ratio 1.8 1.1 - 2.5 (calc) 06/06/2025 2:55 PM EDT [facility] External Bilirubin Total 0.3 0.1 - 1.0 mg/dL 06/06/2025 2:55 PM T [facility] Comment:NOTE: New reference range. External Alkaline Phosphatase 85 40 - 129 U/L 06/06/2025 2:55 PM EDT [facility] External AST [...] recommendation of the National Kidney Foundation and [place] [employer] Neph[employer]. This calculation has not been validated in women. For pediatric patients refer to https://www.kidney.org/professionals/KDOQI/gfr_calculatorPed Blood Venous blood specimen / Unknown 06/06/2025 1:50 PM EDT 06/06/2025 2:21 PM EDT Justen Jaimes MD LAB BLOOD ORDERABLES Lfaca l Result [facility] [address] [place] [address], [place] [phone] * COMPLETE METABOLIC PROFILE (CMP) (06/04/2025 2:58 [...] Result from Last 3 [place] [address] [facility] Care Teams Applications Project Manager Relationship Specialty Start Date End Date Abelardo Pappas MD [address] [place] [address] PCP - General 06/04/25
--- OUTSIDE RECORDS SUMMARY | 2025-07-12 15:12 | XMS_ITS | Encounter Summary ---
Author Organization [facility] Address [address] [place] [address] Care Team Providers Care Warpman Name Role Phone Abelardo Pappas MD Primary Care Provider +1- [phone] Encounter Details Date Type Department Care Team (Late st Contact Info) Description 06/06/2025 Orders Only [facility] at [facility] [address] [place] [address] Justen Jaimes MD [address] [facility] [address] [place] [address] Social History Tobacco Use Types Packs/Day Years [...] Visit [facility] [address] [place] [address] 11/28/2025 3:00 PM EDT Office Visit [facility] at [facility] [address] [place] [address] Justen Jaimes MD [address] [address] 11/28/2025 3:15 PM EDT Clinical Support [facility] [address] [place] [address] documented as of this encounter [...] documented as of this encounter Care Teams Warpman Relationship Specialty Start Date End Date Abelardo Pappas MD [address] [place] [address] PCP - General 06/04/25 documented as of this encounter
--- OUTSIDE RECORDS SUMMARY | 2025-07-12 15:12 | XMS_ITS | Clinical Summary ---
Author Organization [employer] ([place], [place], [place], [place]) Address [address] [place] [address] Care Team Providers Care Scientific Investigator Name Role Phone Tristan Billings DO Primary Care Provider +1 -[phone] Allergies No known active allergies Medications glipiZIDE [...] any time in the past 12 m [facility], were you homeless or [...] living situation today? I [facility] live 08/10/2024 Think about [...] Do you speak a language other than [place] at [facility]? No 08/10/2024 Do you want help [...] Advance Directives For more information, please contact: [phone] Documents on File Type Date Recorded Patient Forms Examiner Expl anation Advance Directives and Living Will 08/10/2024 * Full Code (Latest Code Status on File) Date Activated Date Inactivated Comments 08/10/2024 2:42 PM 08/15/2024 4:37 PM Care Teams Scientific Investigator Relationship Specialty Start Date End Date Tristan Billings DO PCP - General Internal Medicine 08/10/24
--- OUTSIDE RECORDS SUMMARY | 2025-07-12 15:12 | XMS_ITS | Encounter Summary ---
Author Organization [facility] Address [address] [place] [address] Care Team Providers Care Hospital Superintendent Name Role Phone Abelardo Pappas MD Primary Care Provider +1- [phone] Encounter Details Date Type Department Care Team [...] Visit [facility] at [facility] [address] [place] [phone] 11/28/2025 3:00 PM EDT Office Visit [facility] at [facility] [address] [place] [phone] Justen Jaimes MD [address] [address] 11/28/2025 3:15 PM EDT Clinical Support [facility] at [facility] [address] [place] [address] documented as of this encounter Visit Diagnoses Not on filedocumented in this encounter Additional Health Concerns Assessment Noted Time PHQ-9 Depression Total Score: 0 12/28/19 1:21 PM EDT A fall risk assessment has been complete d for the patient 06/06/2025 3:46 PM EDT documented as of this encounter Care Teams Hospital Superintendent Relationship Specialty Start Date End Date Abelardo Pappas MD [address] [place] [address] PCP - General 06/04/25 documented as of this encounter
--- OUTSIDE RECORDS SUMMARY | 2025-07-12 15:12 | XMS_ITS | Encounter Summary ---
Author Organization [facility] Address [address] [place] [address] Care Team Providers Care Store Team Member Name Role Phone Abelardo Pappas MD Primary Care Provider +1- [phone] Encounter Details Date Type Department Care Team (Late st Contact Info) Description 06/06/2025 Orders Only [facility] [address] [place] [phone] Justen Jaimes MD [address] [facility] [address] [place] [address] Social History Tobacco Use Types Packs/Day Years [...] PM EDT Office Visit [facility] [address] [place] [address] 11/28/2025 3:00 PM EDT Office Visit [facility] [address] [place] [address] Justen Jaimes MD [address] [address] 11/28/2025 3:15 PM EDT Clinical Support [facility] [address] [place] [address] documented as of this encounter Procedures Procedure Name Priority Date/Time Associated Diagnosis Comments RBC MORPHOLOGY ([facility]) Routine 06/06/2025 1:50 PM EDT documented in this encounter Results * (ABNORMAL) RBC MORPHOLOGY (EXTERNAL) (06/06/2025 1:50 PM EDT) External Platelet Morphology NORMAL 06/06/2025 4:06 PM EDT [facility] External Ovalocytes SLIGHT(A) 06/06/2025 4:06 PM EDT [facility] External Stomatocyte SLIGHT(A) 06/06/2025 4:06 PM EDT [facility] External Target Cells SLIGHT(A) 06/06/2025 4:06 PM EDT [facility] External Tear Drop Cells SLIGHT(A) 06/06/2025 4:06 PM EDT [facility] 06/06/2025 1:50 PM EDT 06/06/2025 2:21 PM EDT us Justen Jaimes MD LAB BLOOD ORDERABLES Flaca ledezma Result [facility] [address] [place] [address], documented in this encounter Visit Diagnoses Not on filedocumented in this encounter Additional Health Concerns Assessment Noted Time PHQ-9 Depression Total Score: 0 12/28/19 1:21 PM EDT A fall risk assessment has been complete d for the patient 06/06/2025 3:46 PM EDT documented as of this encounter Care Teams Store Team Member Relationship Specialty Start Date End Date Abelardo Pappas MD [address] [place] [address] PCP - General 06/04/25 documented as of this encounter
--- OUTSIDE RECORDS SUMMARY | 2025-07-12 15:12 | XMS_ITS | Encounter Summary ---
Author Organization [facility] Address [address] [place] [address] Care Team Providers Care Veneer Jointer Returner Name Role Phone Abelardo Pappas MD Primary Care Provider +1- [phone] Encounter Details Date Type Department Care Team [...] Description 11/28/2025 2:00 PM EDT Office Visit [facility] [place] [facility] [address] [place] [phone] 11/28/2025 3:00 PM EDT Office Visit [facility] at [facility] [address] [place] [address] Justen Jaimes MD [address] [phone] 11/28/2025 3:15 PM EDT Clinical Support [facility] at [facility] [address] [place] [address] documented as of this encounter Visit Diagnoses Not on filedocumented in this encounter Additional Health Concerns Assessment Noted Time PHQ-9 Depression Total Score: 0 12/28/19 1:21 PM EDT A fall risk assessment has been complete d for the patient 12/27/2024 1:20 PM EDT documented as of this encounter Care Teams Veneer Jointer Returner Relationship Specialty Start Date End Date Abelardo Pappas MD [address] [place] [address] PCP - General 06/04/25 documented as of this encounter
--- OUTSIDE RECORDS SUMMARY | 2025-07-12 15:12 | XMS_ITS | Clinical Summary ---
Author Organization [facility] Address [address] [place] [address] Care Team Providers Care Sports Journalist Name Role Phone Provider, No Known Primary [...] - 04/29/2025 3:55 PM EDT Hospital Encounter [address] [place] [address] Serafin Villalpando MD Frandina, John L, MD [...] 27(H) <22 ng/L 04/29/2025 1:19 PM EDT [facility] Blood Venipuncture / Unknown 04/29/2025 12:34 PM EDT 04/29/2025 12:57 PM EDT Narrative [facility] - 04/29/2025 1:19 PM EDT [...] ORDERABLES Final Re sult Performing Organization Address [facility] Co de Phone Number [facility]
[address] [place] [address], * (ABNORMAL) POC Glucose Once (04/29/2025 11:16 AM EDT) Only the most recent of3 resultswithin the time period is included. Glucose 185(H) 70 - 130 mg/dL 04/29/2025 11:17 AM EDT [facility] Blood 04/29/2025 11:1 6 AM EDT 04/29/2025 11:17 AM EDT Clementina Moreno MD POINT OF CARE TEST ORDERABLES Final Result Performing Organization Address [facility] de Phone Number [facility]
[address] [place] [address], * (ABNORMAL) Protime-INR (04/29/2025 4:30 AM EDT) Only the most recent of2 resultswithin the time period is included. Protime 15.2 12.2 - 15.3 Seconds 04/29/2025 5:18 AM EDT [facility] INR 1.13(H) 0.89 - 1.12 04/29/2025 5:18 AM EDT [facility] Blood Venipuncture / Unknown 04/29/2025 4:30 AM EDT 04/29/2025 4:59 AM EDT Tristan Carr MD LAB BLOOD ORDERABLES Final Re sult Performing Organization Address [facility] Co de Phone Number [facility]
[address] [place] [address], [place] [phone] * (ABNORMAL) CBC (No Diff) (04/29/2025 4:30 AM EDT) WBC 7.99 3.40 - 10.80 10*3/mm3 04/29/2025 5:10 AM EDT [facility] RBC 3.09(L) 4.14 - 5.80 10*6/mm3 04/29/2025 5:10 AM EDT [facility] Hemoglobin 8.7(L) 13.0 - 17.7 g/dL 04/29/2025 5:10 AM EDT [facility] Hematocrit 28.5(L) 37.5 - 51.0 % 04/29/2025 5:10 AM EDT [facility] MCV 92.2 79.0 - 97.0 fL 04/29/2025 5:10 AM EDT [facility] MCH 28.2 26.6 - 33.0 pg 04/29/2025 5:10 AM EDT [facility] MCHC 30.5(L) 31.5 - 35.7 g/dL 04/29/2025 5:10 AM EDT [facility] RDW 19.8(H) 12.3 - 15.4 % 04/29/2025 5:10 AM EDT [facility] RDW-SD 66.5(H) 37.0 - 54.0 fl 04/29/2025 5:10 AM EDT [facility] MPV 9.1 6.0 - 12.0 fL 04/29/2025 5:10 AM EDT [facility] Platelets 252 140 - 450 10*3/mm3 04/29/2025 5:10 AM EDT [facility] Blood Venipuncture / Unknown 04/29/2025 4:30 AM EDT 04/29/2025 4:59 AM EDT us Vaishali Priest SODA JERKER LAB BLOOD ORDERABLES Final Re sult [facility]
[address] [place] [address], * (ABNORMAL) Comprehensive Metabolic Panel (04/29/2025 4:30 AM EDT) Only the most recent of2 resultswithin the time period is included. Glucose 123(H) 65 - 99 mg/dL 04/29/2025 5:33 AM EDT [facility] BUN 18.7 8.0 - 23.0 mg/dL 04/29/2025 5:33 AM EDT [facility] Creatinine 0.86 0.76 - 1.27 mg/dL 04/29/2025 5:33 AM EDT [facility] Sodium 139 136 - 145 mmol/L 04/29/2025 5:33 AM EDT [facility] Potassium 3.7 3.5 - 5.2 mmol/L 04/29/2025 5:33 AM EDT [facility] Chloride 103 98 - 107 mmol/L 04/29/2025 5:33 AM EDT [facility] CO2 26.0 22.0 - 29.0 mmol/L 04/29/2025 5:33 AM EDT [facility] Calcium 9.1 8.6 - 10.5 mg/dL 04/29/2025 5:33 AM EDT [facility] Total Protein 6.0 6.0 - 8.5 g/dL 04/29/2025 5:33 AM EDT [facility] Albumin 3.9 3.5 - 5.2 g/dL 04/29/2025 5:33 AM EDT [facility] ALT (SGPT) 33 1 - 41 U/L 04/29/2025 5:33 AM EDT [facility] AST (SGOT) 28 1 - 40 U/L 04/29/2025 5:33 AM EDT [facility] Alkaline Phosphatase 70 39 - 117 U/L 04/29/2025 5:33 AM EDT [facility] Total Bilirubin 0.4 0.0 - 1.2 mg/dL 04/29/2025 5:33 AM EDT [facility] Globulin 2.1 gm/dL 04/29/2025 5:33 AM EDT [facility] Comment:Calculated Result A/G Ratio 1.9 g/dL 04/29/2025 5:33 AM EDT [facility] BUN/Creatinine Ratio 21.7 7.0 - 25.0 04/29/2025 5:33 AM EDT [facility] Anion Gap 10.0 5.0 - 15.0 mmol/L 04/29/2025 5:33 AM EDT [facility] eGFR 89.2 >60.0 mL/min/1.7 3 04/29/2025 5:33 AM EDT [facility] Blood Venipuncture / Unknown 04/29/2025 4:30 AM EDT 04/29/2025 4:59 AM EDT Narrative [facility] - 04/29/2025 5:33 AM EDT [...] race as a factor us Vaishali Priest SOD[employer] JERKER LAB BLOOD ORDERABLES Final Re sult [facility]
[address] [place] [address], * (ABNORMAL) Blood Gas, Venous With Co-Ox (04/28/2025 8:46 PM EDT) Site Nurse/Dr Johnson 04/28/2025 8:46 PM EDT [facility] pH, Venous 7.393 7.310 - 7.410 pH Units 04/28/2025 8:46 PM EDT [facility] pCO2, Venous 50.3 41.0 - 51.0 mm Hg 04/28/2025 8:46 PM EDT [facility] pO2, Venous 28.0 27.0 - 53.0 mm Hg 04/28/2025 8:46 PM EDT [facility] HCO3, Venous 30.6(H) 22.0 - 28.0 mmol/L 04/28/2025 8:46 PM EDT [facility] Base Excess, Venous 4.9(H) -2.0 - 2.0 mmol/L 04/28/2025 8:46 PM EDT [facility] Hemoglobin, Blood Gas 9.6(L) 13.5 - 17.5 g/dL 04/28/2025 8:46 PM EDT [facility] Oxyhemoglobin Venous 44.5 % 04/15 8:46 PM EDT [facility] Comment:84 Value below refer ence range Methemoglobin Venous 0.5 % 04/15 8:46 PM EDT [facility] Carboxyhemoglobin Venous 1.6 % 04/28/2025 8:46 PM EDT [facility] CO2 Content 32.2 22 - 33 mmol/L 04/28/2025 8:46 PM EDT [facility] Temperature 37.0 04/28/2025 8:46 PM EDT [facility] Barometric Pressure for Blood Gas 04/28/2025 8:46 PM EDT [facility] Comment:N/A Modality Nasal Cannula 04/28/2025 8:46 PM EDT [facility] FIO2 24 % 04/28/2025 8:46 PM EDT [facility] Rate 0 Breaths/ minute 04/28/2025 8:46 PM EDT [facility] PIP 0 cmH2O 04/28/2025 8:46 PM EDT [facility] Comment:Meter: [id number] Wholesale Representative: [id number] IPAP 0 04/28/2025 8:46 PM EDT [facility] EPAP 0 04/28/2025 8:46 PM EDT [facility] Venous Blood 04/28/2025 8:46 PM EDT 04/28/2025 8:46 PM EDT Tristan Carr MD LAB BLOOD ORDERABLES Final Re sult Performing Organization Address City/[facility]/ZIP Co de Phone Number [facility]
[address] * (ABNORMAL) High Sensitivity Troponin T 1Hr (04/28/2025 6:59 PM EDT) HS Troponin T 25(H) <22 ng/L 04/28/2025 7:30 PM EDT [facility] Troponin T Numeric Delta 10(HH) Abnormal if >/=3 ng/L 04/28/2025 7:30 PM EDT [facility] Blood Venipuncture / Unknown 04/28/2025 6:59 PM EDT 04/28/2025 7:02 PM EDT Narrative [facility] - 04/28/2025 7:30 PM EDT [...] ORDERABLES Final R esult Performing Organization Address City/[facility]/ZIP Co de Phone Number [facility]
[address] [place] [address], * XR Chest 1 View (04/28/2025 6:16 PM EDT) Anatomical Region Laterality Modality Body N/A Radiographic Nubia ging 04/28/2025 6:25 PM EDT Impressions 04/28/2025 6:26 PM EDT Impression: No acute cardiopulmonary disease. Electronically Signed: Connor Hall MD 04/28/2025 6:26 PM EDT Workstation ID: [id number] Narrative 04/28/2025 6:26 PM EDT XR CHEST [...] MD 04/28/2025 6:26 PM EDT Workstation ID: [id number] Serafin Villalpando MD IM DIAGNOSTIC IMAGING ORDER [...] Hold for add-ons. 04/28/2025 5:45 PM EDT [facility] Comment:Auto resulted. Blood Line / Unknown 04/28/2025 5: 33 PM EDT 04/28/2025 5:38 PM EDT Serafin Villalpando MD LAB BLOOD ORDER ONLY Final R esult [facility]
[address] [place] [address], * Gold Top [facility] (04/28/2025 5:33 PM EDT) Extra Tube Hold for add-ons. 04/28/2025 5:45 PM EDT [facility] Comment:Auto resulted. Blood Line / Unknown 04/28/2025 5: 33 PM EDT 04/28/2025 5:38 PM EDT Serafin Villalpando MD LAB BLOOD ORDER ONLY Final R esult Performing Organization Address City/[facility]/ZIP Co de Phone Number [facility]
[address] [place] [address], * Green Top (Gel) (04/28/2025 5:33 PM EDT) [facility] Extra Tube Hold for add-ons. 04/28/2025 5:45 PM EDT [facility] Comment:Auto resulted. Blood Line / Unknown 04/28/2025 5: 33 PM EDT 04/28/2025 5:38 PM EDT Serafin Villalpando MD LAB BLOOD ORDER ONLY Final R esult Performing Organization Address [facility]/ZIP Co de Phone Number [facility]
[address] [place] [address], * (ABNORMAL) CBC Auto Differential (04/28/2025 5:33 PM EDT) [facility] WBC 5.30 3.40 - 10.80 10*3/mm3 04/28/2025 5:41 PM EDT [facility] RBC 3.60(L) 4.14 - 5.80 10*6/mm3 04/28/2025 5:41 PM EDT [facility] Hemoglobin 10.3(L) 13.0 - 17.7 g/dL 04/28/2025 5:41 PM EDT [facility] Hematocrit 33.3(L) 37.5 - 51.0 % 04/28/2025 5:41 PM EDT [facility] MCV 92.5 79.0 - 97.0 fL 04/28/2025 5:41 PM EDT [facility] MCH 28.6 26.6 - 33.0 pg 04/28/2025 5:41 PM EDT [facility] MCHC 30.9(L) 31.5 - 35.7 g/dL 04/28/2025 5:41 PM EDT [facility] RDW 19.7(H) 12.3 - 15.4 % 04/28/2025 5:41 PM [facility] RDW-SD 66.3(H) 37.0 - 54.0 fl 04/28/2025 5:41 PM [facility] MPV 8.5 6.0 - 12.0 fL 04/28/2025 5:41 PM [facility] Platelets 245 140 - 450 10*3/mm3 04/28/2025 5:41 PM [facility] Neutrophil % 72.1 42.7 - 76.0 % 04/28/2025 5:41 PM [facility] Lymphocyte % 10.4(L) 19.6 - 45.3 % 04/28/2025 5:41 PM [facility] Monocyte % 7.5 5.0 - 12.0 % 04/28/2025 5:41 PM [facility] Eosinophil % 7.9(H) 0.3 - 6.2 % 04/28/2025 5:41 PM [facility] Basophil % 0.8 0.0 - 1.5 % 04/28/2025 5:41 PM [facility] Immature Grans % 1.3(H) 0.0 - 0.5 % 04/28/2025 5:41 PM [facility] Neutrophils, Absolute 3.82 1.70 - 7.00 10*3/mm3 04/28/2025 5:41 PM [facility] Lymphocytes, Absolute 0.55(L) 0.70 - 3.10 10*3/mm3 04/28/2025 5:41 PM [facility] Monocytes, Absolute 0.40 0.10 - 0.90 10*3/mm3 04/28/2025 5:41 PM [facility] Eosinophils, Absolute 0.42(H) 0.00 - 0.40 10*3/mm3 04/28/2025 5:41 PM [facility] Basophils, Absolute 0.04 0.00 - 0.20 10*3/mm3 04/28/2025 5:41 PM EDT [facility] Immature Grans, Absolute 0.07(H) 0.00 - 0.05 10*3/mm3 04/28/2025 5:41 PM EDT [facility] nRBC 0.0 0.0 - 0.2 /100 WBC 04/28/2025 5:41 PM EDT [facility] Blood Line / Unknown 04/28/2025 5: 33 PM EDT 04/28/2025 5:38 PM EDT us Serafin Villalpando MD LAB BLOOD ORDERABLES Final R esult [facility]
[address] [place] [address], * Lavender Top (04/28/2025 5:33 PM EDT) Extra Tube hold for add-on 04/28/2025 5:45 PM EDT [facility] Comment:Auto resulted Blood Line / Unknown 04/28/2025 5: 33 PM EDT 04/28/2025 5:38 PM EDT us Serafin Villalpando MD LAB BLOOD ORDER ONLY Final R esult [facility]
[address] [place] [address], * Light Blue Top (04/28/2025 5:33 PM EDT) Extra Tube Hold for add-ons. 04/28/2025 5:45 PM EDT [facility] Comment:Auto resulted Blood Line / Unknown 04/28/2025 5: 33 PM EDT 04/28/2025 5:38 PM EDT us Serafin Villalpando MD LAB BLOOD ORDER ONLY Final R esult Performing Organization Address [facility]/ZIP Co de Phone Number [facility]
[address] [place] [address], * BNP (04/28/2025 5:33 PM EDT) proBNP 420.5 0.0 - 1,800.0 pg/mL 04/28/2025 6:03 PM EDT [facility] Blood Line / Unknown 04/28/2025 5: 33 PM EDT 04/28/2025 5:38 PM EDT Narrative [facility] - 04/28/2025 6:03 PM EDT [...] ORDERABLES Final R esult Performing Organization Address [facility] Co de Phone Number [facility]
[address] [place] [address], * Telemetry Scan (04/28/2025 5:31 PM EDT) Only the most recent of2 resultswithin the time period is included. [facility] Onbase ECG ORDERABLES Final Result from [...] or is breathing): Full Support Care Teams Sports Journalist Relationship Specialty Start Date End Date Provider, No Known [facility] [place] [address] PCP - General 04/28/25
--- OUTSIDE RECORDS SUMMARY | 2025-07-12 15:12 | XMS_ITS | Encounter Summary ---
Author Organization [facility] Address [address] [place] [address] Care Team Providers Care Dispatcher Radioactive Waste Disposal Name Role Phone Tristan Billings DO Primary Care Provider [phone] Abelardo Pappas MD Primary Care Provider [phone] Encounter Details Date Type Department Care Team (Late Contact Info) Description 06/01/2025 Orders Only [facility] [address] [place] [address] Justen Jaimes MD [address] [address] Social History Tobacco Use Types [...] Description 11/28/2025 2:00 PM EDT Office Visit [facility] [address] [place] [phone] 11/28/2025 3:00 PM EDT Office Visit [facility] [address] [place] [phone] Justen Jaimes MD [address] [place] [phone] 11/28/2025 3:15 PM EDT Clinical Support [facility] [address] [place] [phone] documented as of this encounter Procedures Procedure [...] documented as of this encounter Care Teams Dispatcher Radioactive Waste Disposal Relationship Specialty Start Date End Date Tristan Billings DO [address] [place] [address] PCP - General 09/13/24 06/03/25 Abelardo Pappas MD [address] [place] [address] PCP - General 06/04/25 documented as of this encounter
--- OUTSIDE RECORDS SUMMARY | 2025-07-12 15:12 | XMS_ITS | Encounter Summary ---
Author Organization [facility] Address [address] [place] [address] Care Team Providers Care Rock Room Worker Name Role Phone YosiTristan centeno Primary Care Provider [phone] Encounter Details Date Type Department Care Team (Late st Contact Info) Description 05/11/2025 Abstract [facility] [address] [place] [address] Justen Jaimes MD [address] [phone] Social History Tobacco Use Types Packs/Day Years [...] Office Visit [facility] [address] [place] [phone] 11/28/2025 3:00 PM EDT Office Visit [facility] [address] [place] [phone] Justen Jaimes MD [address] [phone] 11/28/2025 3:15 PM EDT Clinical Support [facility] [address] [place] [address] documented as of this encounter Visit Diagnoses Not on filedocumented in this encounter Additional Health Concerns Assessment Noted Time PHQ-9 Depression Total Score: 0 12/28/19 1:21 PM EDT A fall risk assessment has been complete d for the patient 12/27/2024 1:20 PM EDT documented as of this encounter Care Teams Rock Room Worker Relationship Specialty Start Date End Date Tristan Billings DO [address] [place] [address] PCP - General 09/13/24 06/03/25 documented as of this encounter
--- OUTSIDE RECORDS SUMMARY | 2025-07-12 15:13 | XMS_ITS | Encounter Summary ---
Author Organization [facility] Address [address] [place] [address] Care Team Providers Care Fisher Eel Spear Name Role Phone Abelardo Pappas MD Primary Care Provider [phone] Encounter Details Date Type Department Care Team (Late Contact Info) Description 06/28/2025 Orders Only [facility] [address] [place] [address] Justen Jaimes MD [address] [phone] Malignant neoplasm of prostate (CMS/HCC) Social History [...] EDT Office Visit [facility] [address] [place] [address] 11/28/2025 3:00 PM EDT Office Visit [facility] [address] [place] [address] Justen Jaimes MD [address] [address] 11/28/2025 3:15 PM EDT Clinical Support [facility] [address] [place] [address] documented as of this encounter Visit Diagnoses Diagnosis Malignant neoplasm of prostate (CMS/HCC) Malignant neoplasm of prostate documented in this encounter Additional Health Concerns Assessment Noted Time PHQ-9 Depression Total Score: 0 12/28/19 1:21 PM EDT A fall risk assessment has been complete d for the patient 06/06/2025 3:46 PM EDT documented as of this encounter Care Teams Fisher Eel Spear Relationship Specialty Start Date End Date Abelardo Pappas MD [address] [place] [address] PCP - General 06/04/25 documented as of this encounter
[2025-07-12 15:14] LABS: Hematocrit 31.2 % (42.0-52.0); Hemoglobin 10.1 g/dL (14.1-18.0); Immature Granulocytes % 1.4 %; Mean Corpuscular HGB Conc 32.4 g/dL (31.8-35.4); Mean Corpuscular Hemoglobin 30.1 pg (27.0-31.2); Mean Corpuscular Volume 92.9 fl (80-94); Nucleated Red Blood Cells % 1.0 %; Platelet Count 350 K/mm3 (142-424); Red Blood Count 3.36 M/mm3 (4.60-6.20); Red Cell Distribution Width-SD 77.3 fL; White Blood Count 9.3 K/mm3 (4.8-10.8)
[2025-07-12 15:17] LABS: Albumin Level 3.8 g/dl (3.5-5.0); Chloride 102 mmol/L (98-107)
[2025-07-12 15:18] LABS: Potassium 4.0 mmoL/L (3.5-5.1); Sodium 136 mmol/L (136-145)
[2025-07-12 15:20] LABS: Alanine Aminotransferase 67 U/L (12-78); Anion Gap 10.0 mEq/L (5-15); Aspartate Amino Transferase 51 U/L (17-59); Blood Urea Nitrogen 20 mg/dl (9-20); Carbon Dioxide 28 mmol/L (22.0-30.0); Creatinine Clearance Estimated 75 mL/min (50-200); Creatinine,Serum 0.90 mg/dl (0.66-1.25); Estimated Glomerular Filt Rate 82 ml/min (>60); GFR (African American) 99 ML/MIN (>60)
[2025-07-12 15:21] LABS: Albumin/Globulin Ratio 1.0 (1.1-1.8); Alkaline Phosphatase 84 U/L (38-126); Bilirubin,Total 0.7 mg/dl (0.2-1.3); Calcium 9.3 mg/dl (8.4-10.2); Globulin 3.9 g/dL (1.3-3.2); Glucose 140 mg/dl (74-100); Total Protein,Serum 7.7 g/dl (6.3-8.2)
[2025-07-12 15:23] LABS: Activated Partial Thrombo Time 32.7 seconds (22.8-30.6); INR 1.60 (0.9-1.1); Prothrombin Time 17.2 seconds (10.1-12.5)
[2025-07-12 16:26] VITALS: BP 101/56; PULSE 74; RESP 17; O2SAT 95
[2025-07-12 16:30] VITALS: BP 108/58; PULSE 69; RESP 19; O2SAT 94
[2025-07-12 16:45] VITALS: BP 112/58; PULSE 65; RESP 24; O2SAT 91
[2025-07-12 17:00] VITALS: BP 104/55; PULSE 70; RESP 17; O2SAT 92
[2025-07-12] MEDS: SODIUM CHLORIDE 0.9% 500ML BAG 500 ML IV (18:10)
[2025-07-12 18:58] VITALS: BP 104/55; PULSE 70; RESP 17; TEMP 36.7; O2SAT 95
== END 2025-07-12 19:00 | disposition home or self-care (01) ==
PROVIDERS: Physician Assistant; Emergency Provider Student in an Organized Health Care Education/Training Program; PCP Family Medicine
DX: L76.22 Postprocedural hemorrhage of skin and subcutaneous tissue following other procedure (principal); I95.9 Hypotension, unspecified; R55 Syncope and collapse; R42 Dizziness and giddiness; S31.010A Laceration without foreign body of lower back and pelvis without penetration into retroperitoneum, initial encounter; Z87.311 Personal history of (healed) other pathological fracture; I10 Essential (primary) hypertension; E78.5 Hyperlipidemia, unspecified; Z86.79 Personal history of other diseases of the circulatory system; Z95.5 Presence of coronary angioplasty implant and graft; Z79.01 Long term (current) use of anticoagulants
CPT/HCPCS: 12001; 80053; 85025; 85610; 85730; 86850; 86870; 93005; 99284; J2004; J7040

== ENCOUNTER 2025-07-13 23:19 | Inpatient (IN) | payer MEDICARE, OTHER, SELFPAY ==
--- OUTSIDE RECORDS SUMMARY | 2025-06-06 14:15 | XMS_ITS | Encounter Summary ---
Author Organization [facility] Address [address] [place] [address] Care Team Providers Care Environmental Service Aide Name Role Phone Abelardo Pappas MD Primary Care Provider +1- [phone] Reason for Visit * Reason Comments Follow-up Encounter Details Date Type Department Care Team (Late st Contact Info) Description 06/06/2025 2:15 PM EDT Office Visit [facility] [address] [place] [phone] Justen Jaimes MD [address] [place] [address] Malignant neoplasm of prostate (CMS/HCC) [...] Jaimes MD - 06/06/2025 2:15 PM EDT [facility] Division of Hematology and Oncology Hematology/Oncology follow up visit Note Patient Name: Maritn Lezama Date of : 1945 79 y.o. [...] right side with 90% grade 4, equals Mehoopany score 4+5=9 adenocarcinoma involving 95% - 100% of 2 out of the 3 cores taken from the area of interest with 70% grade 4, and Mehoopany score 4+4 = 8 adenocarcinoma involving between [...] 08/09/2024. - Mr. Lezama was admitted to [facility] from 08/10/2024 through 08/15/2024 for urinary retention [...] prostate cancer Social History: Patient lives in [place] with Social History Tobacco Use Smoking Status [...] MG tablet, , Disp: , Rfl: HYDROcodone-acetaminophen ([place]) 5-325 MG tablet, TAKE ONE TABLET BY [...] 0.3 06/06/2025 As detailed in HPI Imaging: [facility] [address] [place] [address] Patient Name: MARTIN LEZAMA Patient : 1945 [...] was GFR =50 6.2 mCi Ga-68 PSMA ([facility] [id number]) was injected IV. After an uptake time of 76 minutes, vertex through midthigh PET imaging was performed. This was followed by a low dose attenuation correction/anatomic localization CT from vertex through the midthigh levels. Urinary tract was opacified with an injection of 50 mL Omnipaque 350 (1 x 50 ml bottle of [facility] [id number]) administered [address] scan. 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 Kincaid, who recommended bone antiresorptive agent [...] Description 11/28/2025 2:00 PM EDT Office Visit [facility] [address] [place] [address] 11/28/2025 3:00 PM EDT Office Visit [facility] [address] [place] [address] Justen Jaimes MD [address] [place] [phone] 11/28/2025 3:15 PM EDT Clinical Support [facility] [address] [place] [address] Scheduled Orders Name Type Priority Associated Diagnoses [...] - 4.400 ng/mL 06/06/2025 3:01 PM EDT [facility] Comment: This test was performed using Estefania e801 Electrochemiluminescent method. The test method is based on WHO-standardized calibration. Values obtained from different assay methods or manufacturers may not be comparable. External Psa, Free 0.17 ng/mL 2024 3:01 PM EDT [facility] Comment: Test method is based on WHO-standardized calibration using the Estefania E801 analyzer. Free PSA results by different test procedures cannot be directly compared with one another. External Psa- % Free 63 % 05/17 3:01 PM EDT [facility] Comment: PSA ng/mL % FREE PSA Probability of Prostate Cancer % Less than 4.00 N/A 17% 4.0 - 10.0 0-10 56% 10-15 28% 15-20 20% 20-25 16% Greater than 25 8% Greater than 10.0 N/A 49% Blood Venous blood specimen / Unknown 06/06/2025 1:50 PM EDT 06/06/2025 2:21 PM EDT us Justen Jaimes MD LAB BLOOD ORDERABLES Flaca l Result [facility] [address] [place] [address], * (ABNORMAL) Comprehensive Metabolic Panel, Plasma (06/06/2025 1:50 PM EDT) External Glucose 101(H) 74 - 100 mg/dL 06/06/2025 2:55 PM EDT [facility] External BUN 22(H) 6 - 20 mg/dL 06/06/2025 2:55 PM EDT [facility] External Creatinine Blood 0.97 0.70 - 1.20 mg/dL 06/06/2025 2:55 PM EDT [facility] External BUN/Creat Ratio 23(H) 10 - 20 (calc) 06/06/2025 2:55 PM EDT [facility] External Sodium 144 136 - 145 mmol/L 06/06/2025 2:55 PM EDT [facility] External Potassium 3.7 3.4 - 5.0 mmol/L 06/06/2025 2:55 PM EDT [facility] External Chloride 103 98 - 107 mmol/L 06/06/2025 2:55 PM EDT [facility] External Carbon Dioxide (CO2) 27 22 - 31 mmol/L 06/06/2025 2:55 PM T [facility] External Anion Gap (AG) 14 7 - 25 (calc) 06/06/2025 2:55 PM T [facility] External Calcium 10.0 8.6 - 10.2 mg/dL 06/06/2025 2:55 PM T [facility] External Total Protein 6.9 6.4 - 8.3 g/dL 06/06/2025 2:55 PM EDT [facility] External Albumin 4.4 3.5 - 5.2 g/dL 06/06/2025 2:55 PM T [facility] External Globulin 2.5 1.5 - 4.5 025 2:55 PM T [facility] External Albumin/Globulin Ratio 1.8 1.1 - 2.5 (calc) 06/06/2025 2:55 PM T [facility] External Bilirubin Total 0.3 0.1 - 1.0 mg/dL 06/06/2025 2:55 PM T [facility] Comment:NOTE: New reference range. External Alkaline Phosphatase 85 40 - 129 U/L 06/06/2025 2:55 PM T [facility] External AST (SGOT) 25 0 - 40 U/L 06/06/2025 2:55 PM EDT [facility] External ALT (SGPT) 32 0 - 41 U/L 06/06/2025 2:55 PM EDT [facility] External Estimated GFR 80 >=60 06/06/2025 2:55 PM EDT [facility] Comment: NOTE New calculation for GFR (CKD-EPI 2020) is formulated without race adjustment factors at the recommendation of the National Kidney Foundation and [place] [employer] Nephrology. This calculation has not been validated in women. For pediatric patients refer to https://www.kidney.org/professionals/KDOQI/gfr_calculatorPed Blood Venous blood specimen / Unknown 06/06/2025 1:50 PM EDT 06/06/2025 2:21 PM EDT us Justen Jaimes MD LAB BLOOD ORDERABLES Flaca ledezma Result [facility] [address] [place] [address], * (ABNORMAL) CBC and Differential (06/06/2025 1:50 PM EDT) External WBC 5.5 3.8 - 10.8 10*3/uL 06/06/2025 4:06 PM EDT [facility] External Red Blood Cell (RBC) 3.67(L) 4.20 - 5.80 10*6/uL 06/06/2025 4:06 PM EDT [facility] External Hemoglobin 10.3(L) 14.0 - 18.0 g/dL 06/06/2025 4:06 PM EDT [facility] External Hematocrit 32.8(L) 40.0 - 52.0 % 06/06/2025 4:06 PM EDT [facility] External MCV 89 80 - 100 fL 06/06/2025 4:06 PM EDT [facility] External MCH 28 26 - 35 pg 06/06/2025 4:06 PM EDT [facility] External MCHC 31(L) 32 - 36 g/dL 06/06/2025 4:06 PM EDT [facility] External RDW 23.0(H) 11.0 - 15.0 % 06/06/2025 4:06 PM EDT [facility] External Mean Platelet Volume 7.3 6.2 - 10.5 fL 06/06/2025 4:06 PM EDT [facility] External Platelet Count (Plt) 326 150 - 400 10*3/uL 06/06/2025 4:06 PM EDT [facility] External Neutrophil# 3.5 1.6 - 8.4 10*3/uL 06/06/2025 4:06 PM EDT [facility] External Lymphocyte# 0.7 0.4 - 5.1 10*3/uL 06/06/2025 4:06 PM EDT [facility] External Absolute Monocyte (Abs [place]) 0.5 0.0 - 1.2 10*3/uL 06/06/2025 4:06 PM EDT [facility] External Eosinophils# 0.7 0.0 - 0.8 10*3/uL 06/06/2025 4:06 PM EDT [facility] External Baso# 0.1 0.0 - 0.3 10*3/uL 06/06/2025 4:06 PM EDT [facility] Comment:Smear reviewed to co nfirm cell morphology. External Neutrophils % 63.9 42.0 - 78.0 % 06/06/2025 4:06 PM EDT [facility] External Lymphocyte % 13.1 11.0 - 47.0 % 06/06/2025 4:06 PM EDT [facility] External Monocyte % 8.8 0.0 - 11.0 % 06/06/2025 4:06 PM EDT [facility] External Eosinophil% 13.2(H) 0.0 - 7.0 % 06/06/2025 4:06 PM EDT [facility] External Basophil % 1.0 0.0 - 3.0 % 06/06/2025 4:06 PM T [facility] External Nucleated RBC%-Auto 0.3 0.0 - 0.9 % 06/06/2025 4:06 PM T [facility] External Nucleated RBC Absolute 0.02 Not Estab. 10*3/uL 06/06/2025 4:06 PM T [facility] Blood Venous blood specimen / Unknown 06/06/2025 1:50 PM EDT 06/06/2025 2:21 PM EDT Justen Jaimes MD LAB BLOOD ORDERABLES Flaca ledezma Result Performing Organization Address City/State/[facility] Co de Phone Number [facility] [address] [place] [address], documented in this encounter Visit Diagnoses Diagnosis Malignant neoplasm of prostate (CMS/HCC)- Primary Malignant neoplasm of prostate Osteopenia of multiple sites documented in this encounter Additional Health Concerns Assessment Noted Time PHQ-9 Depression Total Score: 0 12/28/19 1:21 PM EDT A fall risk assessment has been complete d for the patient 06/06/2025 3:46 PM EDT documented as of this encounter Care Teams Environmental Service Aide Relationship Specialty Start Date End Date Abelardo Pappas MD [address] [place] [address] PCP - General 06/04/25 documented as of this encounter
--- OUTSIDE RECORDS SUMMARY | 2025-06-06 14:30 | XMS_ITS | Encounter Summary ---
Author Organization [facility] Address [address] [place] [address] Care Team Providers Care Industrial Maintenance Technician Name Role Phone Abelardo Pappas MD Primary Care Provider [phone]- [phone] Reason for Visit * Reason Comments Injections * Episode Based Medications (Routine) - Authorized Specialty Diagnoses / Procedures Referred By Contdarien t Referred To Contact Diagnoses Osteopenia of multiple sites Justen Jaimes MD [address] [address] Phone: tel: fax: Justen Jaimes MD [address] [address] Phone: tel: fax: Referral ID Status Reason Start Date Expiration Date V isits Requested Visits Authorized [id number] Authorized 06/13/2025 12/13/2026 1 2 Encounter Details Date Type Department Care Team (Late st Contact Info) Description 06/06/2025 2:30 PM EDT Infusion [facility] [place] [facility] [address] [place] [address] Osteopenia of multiple sites (Primary [...] from the original note were not included. [id number] Denosumab Injection IMPORTANT WARNING: Denosumab injection products [...] doctor or pharmacist will give you the sole layer's patient information sheet (Medication Guide) when you begin treatment with denosumab injection products. Read the information carefully and ask your doctor or pharmacist if you have any questions. You can also visit the Food and Drug Administration (FDA) website (https://www.fda.gov/Drugs/DrugSafety/nvl631355.htm) (or the sole layer's website) to obtain the Medication Guide. Talk [...] or doctor for a copy of the sole layer's information for the patient. Are there OTHER [...] of all of the prescription and nonprescription (auyg-yhk-adbbnqd) medicines, vitamins, minerals, and dietary supplements you [...] or pharmacist about specific clinical use. The [employer] represents that the information provided hereunder was formulated with a reasonable standard of care, and in conformity with professional standards in the field. The [employer] makes no representations or warranties, express or implied, including, but not limited to, any implied warranty of merchantability and/or fitness for a particular purpose, with respect to such information and specifically disclaims all such warranties. Users are advised that decisions regarding drug therapy are complex medical decisions requiring the independent, informed decision of an appropriate health senior caregiver, and the information is provided for informational purposes only. The entire monograph for a drug should be reviewed for a thorough understanding of the drug's actions, uses and side effects. The [employer] does not endorse or recommend the use of any drug.The information is not a substitute for medical care. AHFS?? Patient Medication Information?. ?? Copyright, 2023. The [employer]??, [address] [facility], [address], [place], [place]. All Rights Reserved. Duplication for commercial use must be authorized by [facility]. AHFS?? Patient Medication Information?. ?? Copyright, 2024 documented in this encounter Plan of Treatment Upcoming Encounters Date Type Department Care Team (Late st Contact Info) Description 11/28/2025 2:00 PM EDT Office Visit [facility] at [address] [address] 11/28/2025 3:00 PM EDT Office Visit [facility] at [address] [address] Justen Jaimes MD [address] [place] [phone] 11/28/2025 3:15 PM EDT Clinical Support [facility] at [address] [address] documented as of this encounter Visit Diagnoses [...] documented as of this encounter Care Teams Industrial Maintenance Technician Relationship Specialty Start Date End Date Abelardo Pappas MD [address] [place] [address] PCP - General 06/04/25 documented as of this encounter
[2025-07-13 22:58] VITALS: BP 189/76; PULSE 58; RESP 18; TEMP 36.6; O2SAT 96; BMI 24.3
--- NOTE | 2025-07-13 23:09 | CT_ITS ---
PROCEDURE INFORMATION: Exam: CT Lumbar Spine Without Contrast Exam date and time: 07/13/2025 11:31 PM Age: 79 years old Clinical indication: Low back pain; Additional info: Kyphoplasty 5d ago, pain across low back TECHNIQUE: Imaging protocol: Computed tomography of the lumbar spine without contrast. Radiation optimization: All CT scans at this facility use at least one of these dose optimization techniques: automated exposure control; mA and/or kV adjustment per patient size (includes targeted exams where dose is matched to clinical indication); or iterative reconstruction. COMPARISON: MR LUMBAR SPINE WO CON 05/25/2025 9:[address] abdomen pelvis with IV contrast 07/13/2025. FINDINGS: Bones/joints: There is diffuse osteopenia which somewhat limits bony assessment. Stable subacute and chronic compression fractures involving L2, L3 and L5 with associated kyphoplasty. Stable mlsg-[id number] chronic compression fractures involving T12 and L1. L4 vertebral body remains normal in height. No new fracture identified. Alignment within normal limits.There is diffuse spondylosis. No significant canal or foraminal stenosis. No radiographic evidence of disc herniation. Soft tissues: Unremarkable. IMPRESSION: 1. No acute or suspicious bony abnormality identified. 2. Stable subacute-chronic compression fractures and kyphoplasty L2, L3 and L5. 3. Stable chronic compression fractures of T12 and L1.
--- NOTE | 2025-07-13 23:09 | CT_ITS ---
PROCEDURE INFORMATION: Exam: CT Abdomen And Pelvis With Contrast Exam date and time: 07/13/2025 11:35 PM Age: 79 years old Clinical indication: Abdominal pain; Back pain; Additional info: Constipation, nausea, diffuse mild ttp TECHNIQUE: Imaging protocol: Computed tomography of the abdomen and pelvis with contrast. Radiation optimization: All CT scans at this facility use at least one of these dose optimization techniques: automated exposure control; mA and/or kV adjustment per patient size (includes targeted exams where dose is matched to clinical indication); or iterative reconstruction. Contrast material: ISOVUE; Contrast volume: 75 ml; Contrast route: IV; COMPARISON: CT ABDOMEN PELVIS W CON 12/14/2024 3:16 PM FINDINGS: Lungs: There is bibasilar atelectasis. Pleural spaces: Tiny left pleural effusion. Heart: Heart demonstrates aortic valve replacement.There are calcifications in the coronary arteries.The heart size is unchanged. Liver: There is diffuse fatty infiltration of the liver. Gallbladder and biliary ducts: Normal. No calcified stones. No ductal dilation. Pancreas: Normal. No ductal dilation. Spleen: Normal. No splenomegaly. Adrenal glands: Stable nonspecific bilateral adrenal nodules measuring up to 1.5 cm on the left. Kidneys and ureters: Bilateral likely benign renal cysts are present, requiring no further evaluation, as large as 1 cm. No hydroureteronephrosis or obstructing calculus identified. Stomach and bowel: Query mild circumferential wall thickening of the rectosigmoid which may be artifact due to incomplete distension or proctocolitis. No obstruction. Appendix: No evidence of appendicitis. Intraperitoneal space: Unremarkable. No free air. No significant fluid collection. Vasculature: There is moderate atherosclerosis of the aorta without aneurysm.The visualized aortic branch vessels are patent. Lymph nodes: Unremarkable. No enlarged lymph nodes. Urinary bladder: Unremarkable as visualized. Reproductive: Unremarkable as visualized. Bones/joints: New nonspecific mild presacral edema and inflammation extending into the pelvis anteriorly. There is diffuse osteopenia which somewhat limits bony assessment. Again noted diffuse thoracolumbar compression fractures with increased loss of vertebral height at L2, L3 and L5 where there is kyphoplasty. No acute displaced fracture identified.There is diffuse spondylosis. Soft tissues: Unremarkable. IMPRESSION: 1. Tiny left pleural effusion and mild bibasilar atelectasis. 2. Mild circumferential wall thickening of the rectosigmoid may be artifact, post therapeutic or proctocolitis depending on clinical context. 3. New mild presacral edema and inflammation extending into pelvis anteriorly may be post therapeutic or secondary to potential proctocolitis. 4. Fatty liver. 5. Stable bilateral adrenal nodules measuring up to 1.5 cm on the left. Although possibly benign adenomas, consider further assessment with nonemergent MRI of the abdomen with and without contrast as an outpatient. 6. Chronic thoracolumbar compression fractures with increased loss of vertebral height at L2, L3 and L5 demonstrating interval kyphoplasty. Recommend correlation with dedicated CT lumbar spine report for further details.
--- NOTE | 2025-07-13 23:11 | ED_ITS ---
Discharge Plan Disposition Patient Disposition: Admitted Condition: Good Prescriptions Prescriptions: No Action oxybutynin chloride 10 mg tablet extended release 24hr 10 mg PO DAILY Patient Comments: TAKE ONE TABLET BY MOUTH EVERY DAY FOR urine urgency tamsulosin 0.4 mg capsule 0.8 mg PO DAILY lisinopril 2.5 mg tablet 2.5 mg PO DAILY Qty: 90 3RF methotrexate sodium 2.5 mg tablet 10 mg PO WEEKLY Rx Instructions: Take 4 tablets weekly each Friday AM folic acid 1 mg tablet 1 mg PO DAILY hydrochlorothiazide 25 mg tablet 25 mg PO DAILY Qty: 90 3RF calcium carbonate-vitamin D3 [Calcium 600 with Vitamin D3] 600 mg-12.5 mcg (500 unit) capsule See Rx Instructions PO BID Qty: 60 5RF Rx Instructions: orally twice a day; 1 capsule BID atenolol 50 mg tablet 50 mg PO DAILY Qty: 90 3RF simvastatin 20 mg tablet 20 mg PO DAILY Qty: 90 0RF glipizide 10 mg tablet 10 mg PO DAILY Qty: 90 0RF dapagliflozin propanediol 10 mg tablet See Rx Instructions .ROUTE .COMPLEX Qty: 90 0RF Dose Instruction: TAKE 1 TABLET DAILY Rx Instructions: TAKE 1 TABLET DAILY warfarin 4 mg tablet See Rx Instructions .ROUTE .COMPLEX Qty: 90 0RF Dose Instruction: TAKE 1 TABLET DAILY Rx Instructions: TAKE 1 TABLET DAILY enoxaparin [Lovenox] 100 mg/mL syringe 90 mg SQ Q12H Qty: 20 0RF hydrocodone-acetaminophen 5-325 mg tablet 1 tab PO Q8H PRN (Reason: pain) Qty: 90 0RF Lupron Depot (6 Month) 45 mg Syringe Kit 45 mg IM Q6 Rx Instructions: EVERY 6 MONTHS Orencia ClickJect 125 mg/mL auto-injector 125 mg SQ .monthy methocarbamol 750 mg tablet 750 mg PO TID Qty: 90 2RF Prolia 60 mg/mL Syringe 60 mg SQ Q6M Clinical Impressions Clinical Impression: Post-operative pain, Elevated serum aspartate aminotransferase level, Anemia, blood loss, Adrenal nodule, Renal cyst Print Language Print Language: Citizen Of [place] Discharge ED Provider: Misti Toney Adult HPI General Chief complaint: Back Pain/Injury Stated complaint: pain Time Seen by Provider: 07/13/25 23:19 Mode of Arrival: EMS Source of Information: Patient and EMS Description of Symptoms (Recalled from ER Triage Doc. by RN): Pt presents to ED via EMS for back pain/nausea after surgery (07/08) with Dr. Negro. Pt has presented to ED the previous 2 days as well. Pt states the pain is unbearable and that's why he called EMS. Pt rates pain 9/10 at this time. Pt is A&O*4 and family is bedside. History of Present Illness HPI narrative: 79-year-old male with history of previous lumbar compression fractures, prostate cancer, type 2 diabetes, hypertension, hyperlipidemia, mechanical aortic valve on warfarin presents to the ER for the third day in a row today concern for pain after kyphoplasty. Patient had kyphoplasty with Dr. Negro on 07/04/2025 with L2 and L5 kyphoplasty. Review of operative notes demonstrates no complications. Patient had bleeding while transitioning back to warfarin and had a suture placed in the ED yesterday which has allowed the patient to be hemostatic. He reports he started having dry heaving and nausea last night and it has persisted through the day but no emesis. He is very constipated. Taking hydrocodone 5 every 8 hours as well as methocarbamol. Patient reports this evening approximately 5 hours prior to arrival he started having pain across the low back, started on the right but is also on the left. He states EMS told him it could be muscle spasm. Patient states anytime he dry heaves the pain is significantly worse. He denies any bowel or bladder incontinence, no new numbness, tingling, or weakness, denies saddle anesthesia. No fevers or chills. Family at bedside reports the Band-Aid over his wound had some blood on it this evening after not having any bleeding previously. No fevers, chills, headache, dizziness, chest pain, difficulty breathing, no other complaints or concerns. Related Data Home Medications ?Medication ?Instructions ?Recorded ?Confirmed tamsulosin 0.4 mg capsule 0.8 mg PO DAILY 09/10/23 oxybutynin chloride 10 mg 10 mg PO DAILY 09/23/2406/16 tablet,extended release 24 hr leuprolide acetate (6 month) 45 mg 45 mg IM Q6 5 07/12/25 intramuscular syringe kit (Lupron Depot) abatacept 125 mg/mL subcutaneous 125 mg SQ .monthy 07/12/25 auto-injector (Orencia ClickJect) folic acid 1 mg tablet 1 mg PO DAILY 05/23/2507/12 methotrexate sodium 2.5 mg tablet 10 mg PO WEEKLY 05/0907/12/25 denosumab 60 mg/mL subcutaneous 60 mg SQ Q6M 07/05/25 07/12/25 syringe (Prolia) Previous Rx's ?Medication ?Instructions ?Recorded lisinopril 2.5 mg tablet 2.5 mg PO DAILY #90 tabs 04/08 hydrochlorothiazide 25 mg tablet 25 mg PO DAILY #90 ta bs 12/27/24 calcium 600 mg (as See Rx Instructions PO BID # 60 caps 01/13/25 carbonate)-vitamin D3 12.5 mcg (500 unit) capsule (Calcium with Vit D3) atenolol 50 mg tablet 50 mg PO DAILY BLOOD PRESSUR E #90 02/28/25 tabs simvastatin 20 mg tablet 20 mg PO DAILY #90 tabs 05/09 methocarbamol 750 mg tablet 750 mg PO TID #90 tabs 06/09 glipizide 10 mg tablet 10 mg PO DAILY #90 tabs 04/16 06/09 dapagliflozin propanediol 10 mg See Rx Instructions .R oute 06/09/25 tablet .COMPLEX #90 tabs warfarin 4 mg tablet See Rx Instructions .Route 0 06/09/25 .COMPLEX #90 tabs enoxaparin 100 mg/mL subcutaneous 90 mg (0.9 mL) SQ Q1 2H 06/28/25 syringe (Lovenox) anticoagulation, mechanical heart valve #20 mL hydrocodone 5 mg-acetaminophen 325 1 tab PO Q8H PRN pa in #90 tabs 07/05/25 mg tablet Allergies Allergy/AdvReac Type Severity Reaction Status Date / Time No Known Allergies Allergy Verified 07/12/25 15:21 [facility] Disclaimer: The information contained in this section may have been updated after the patient was seen, as this information can be updated by other users. 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 Surgical History H/O mechanical aortic valve replacement Family History Other No significant family history Social History Smoking Status: Unknown if ever smoked alcohol intake: never substance use type: denies use current occupational status: retired and other Travel in the last 8 weeks?: None household members: spouse housing: house caffeine: Yes Other Medical History Have you received the Flu Vaccine for this season: Yes Have you received the Pneumonia Vaccine: Yes ROS Obtained: Yes Systems reviewed as appropriate & no additional complaints except as documented per HPI Physical Exam General General appearance: alert and in no apparent distress Head Head exam: atraumatic and normocephalic Eye Eye exam: Present PERRL and EOMI ENT ENT exam: Present mucous membranes moist Neck Neck exam: Present normal inspection and full ROM Chest Chest inspection: Present symmetric chest wall rise Respiratory Respiratory exam: Absent respiratory distress or stridor Cardiovascular Cardiovascular exam: Present regular rate, normal rhythm and other (Mechanical valve click) Abdominal Exam Abdominal exam: Present soft and tenderness (Diffuse, mild); Absent distention, guarding or rebound Extremities Exam Extremities exam: Present full ROM and normal capillary refill; Absent tenderness or edema Back Exam Back exam: Present tenderness (Diffuse lumbar paraspinal); Absent vertebral tenderness Comment: Kyphoplasty wounds hemostatic, well-appearing Neurological Exam Neurological exam: Present alert, oriented X3 and other (No saddle anesthesia); Absent motor sensory deficit Psychiatric Psychiatric exam: Present normal affect and normal mood Skin Skin exam: Present warm and dry Medical Decision Making Medical Records Medical records reviewed: Yes I reviewed the patient's medical records. Screening: Per USPSTF and CDC recommendations, given the prevalence of disease in our region, it is our hospital?s policy to screen for HIV and viral Hepatitis for all patients aged 18 and over and those with ongoing risk factors. MR Comment: Per HPI Hugo Inquiry Pt receiving controlled substance: No Vital Signs: 07/13/25 22:58 Temperature 97.9 F Temperature Source Oral Pulse Rate [Left] 58 L Respiratory Rate 18 Blood Pressure [Right Arm] 189/76 H Blood Pressure Mean [Right Arm] 113 02 Sat by Pulse Oximetry 96 Oxygen Delivery Method Room Air Lab Data Lab Results 07/13/25 23:00: WBC 10.9 H, RBC 2.62 L, Hgb 7.8 L, Hct 24.1 L, MCV 92.0, MCH 29.8, MCHC 32.4, RDW 22.7 H, Plt Count 315, MPV 9.4, Neut % (Auto) 85.0 H, Lymph % (Auto) 4.5 L, Lake % (Auto) 7.8, Eos % (Auto) 0.7, Baso % (Auto) 0.4, Neut # (Auto) 9.2 H, Lymph # (Auto) 0.5 L, Lake # (Auto) 0.9, Eos # (Auto) 0.1, Baso # (Auto) 0.0, Total Counted 100, Neutrophils % (Manual) 82 H, Band Neutrophils % 4, Lymphocytes % (Manual) 7 L, Monocytes % (Manual) 7, PT 22.8 H, INR 2.18 H, S odium 131 L, Potassium 3.5, Chloride 99, Carbon Dioxide 24, Anion Gap 11.5, BUN 18, Creatinine 0.90, Estimated Creat Clear 75, Estimated GFR 82, Est GFR ( Amer) 99, Glucose 206 H, Calcium 8.7, Total Bilirubin 1.2, AST 210 H D, ALT 47 D, Alkaline Phosphatase 108, Total Protein 7.1, Albumin 3.5, Globulin 3.6 H, Albumin/Globulin Ratio 1.0 L 07/13/25 23:00 07/13/25 23:00 Orders (Tests/Meds): ED MEDICATIONS Generic Name Dose Route Start Last Admin Trade Name Yeimy PRN Reason Stop Dose Admin Sodium Chloride 10 ml 07/13/25 23:41 07/13/25 23:41 Sodium Chloride 0.9% 10ml Syr (Rad Only) IV 08/12/25 23:40 10 ml NEEDED PRN Administration Maintain IV Site Discontinued Medications Generic Name Dose Route Start Last Admin Trade Name Freq PRN Reason Stop Dose Admin Cyclobenzaprine HCl 10 mg 07/13/25 23:09 07/13/25 23:18 Cyclobenzaprine 10mg Tablet PO 07/13/25 23:10 10 mg ONCE ONE Administration Hydromorphone HCl 1 mg 07/13/25 23:09 07/13/25 23:18 Hydromorphone 2mg/Ml Syringe IV 07/13/25 23:10 1 mg ONCE ONE Administration Lactated Ringer's 1,000 mls @ 999 mls/hr 07/13/25 23:18 07/13/25 23:24 Lactated Ringer's 1000 Ml Bag IV 07/14/25 00:18 999 mls/hr .Q1H1M ONE Administration Iopamidol 75 ml 07/13/25 23:41 07/13/25 23:41 Iopamidol-370 (76%);100ml Bottle IV 07/13/25 23:42 75 ml ONCE ONE Administration Ondansetron HCl 4 mg 07/13/25 23:09 07/13/25 23:18 Ondansetron 4mg/2ml Vial IV 07/13/25 23:10 4 mg ONCE ONE Administration ORDERS Category Date Time Status CT abdomen pelvis w con Stat Cat Scan 07/13/25 23:[address] lumbar spine wo con Stat Cat Scan 07/13/25 23:09 Completed CBC w/Auto Diff [Complete Blood Count Auto Diff] Stat Lab 07/13/25 23:00 Completed CMP [Comprehensive Metabolic Panel] Stat Lab 07/13/25 23:00 Completed PT INR [Prothrombin Time INR] Stat Lab 07/13/25 23:00 Completed Urinalysis and Microscopic Stat Lab 07/13/25 23:17 Ordered Medical Decision Narrative: In summary, this 79-year-old male with comorbidities described in the HPI presents to the emergency department today with concerns of low back pain exacerbation as well as constipation and dry heaving. On initial evaluation patient is hypertensive but otherwise hemodynamically stable, afebrile, GCS 15, no neurologic deficits, no saddle anesthesia, no bowel or bladder incontinence, surgical site is well-appearing with no evidence of infection or active bleeding, no midline tenderness, there is diffuse paraspinal tenderness, no CVA tenderness, mild diffuse abdominal tenderness but no rebound or guarding, no peritonitic findings, remainder of exam reassuring. Differential diagnosis includes but is not limited to muscle spasm, I did consider the possibility of radiculopathy, infection, constipation, ileus, obstruction, viral syndrome, electrolyte abnormality, dehydration, urinary tract infection, kidney stone, among others. Patient has no red flag symptoms for cauda equina though this was also considered. Based on these concerns, I ordered hematologic and serum labs, urinalysis, CT abdomen pelvis, CT lumbar spine. Patient received Dilaudid, Zofran, cyclobenzaprine, LR initially for treatment. Labs personally reviewed demonstrate that patient's WBC continues to increase. On the it was 6.3, yesterday it was 9.3, today it is 10.9. With patient having dry heaving this could be viral or otherwise reactive. Hemoglobin has dropped from 10.1 yesterday to 7.8 today, patient does not describe any sources of acute blood loss aside from the surgical wounds yesterday that have since been hemostatic and are not showing any signs of bleeding at this time. INR is now 2.18, CMP with no kidney dysfunction, new AST elevation is nonspecific and nonactionable at this time, patient does not have any focal right upper quadrant tenderness, no jaundice. CT imaging personally interpreted demonstrate No acute surgical pathology in the abdomen, specifically I do not appreciate hematoma or fluid collection, no obvious bowel obstruction, only mild stool burden. CT lumbar spine without acute abnormality, see radiology for final interpretation. I discussed with patient and family at bedside the incidental findings on CT including pleural effusion, nonspecific abdominal inflammation, potential proctocolitis though this does not correlate clinically, adrenal nodules, renal cysts. I recommended that these be followed up outpatient. See radiology reads for full interpretations. Patient tolerated the initial medications well and pain is controlled at this time. He is resting comfortably. He did require nasal cannula to prevent hypoxia after receiving Dilaudid. I do not believe patient requires transfusion. I do think it is appropriate for the patient to be admitted to the hospital continue monitoring labs including his hemoglobin which has dropped and his AST which is increasing though he does not have an obvious reason for this. I looked at the CT abdomen pelvis again to see if there was any abnormality of the gallbladder or liver appreciated which I do not see. I also discussed the read with radiology who states they do not appreciate hemorrhage or hematoma. Patient and family are comfortable with admission to the hospital for continued monitoring and management. I discussed this case with the hospitalist, Frances, who graciously accepted the patient. He was admitted in stable condition. Critical Care Critical Care Time Critical Care Time: No
[2025-07-13] MEDS: ONDANSETRON 4MG/2ML VIAL 4 MG IV (23:18)
[2025-07-13] MEDS: CYCLOBENZAPRINE 10MG TABLET 10 MG PO (23:18)
[2025-07-13] MEDS: HYDROMORPHONE 2MG/ML SYRINGE 1 MG IV (23:18)
[2025-07-13] MEDS: LACTATED RINGERS 1000ML 1,000 ML 999 ML IV (23:24)
[2025-07-13 23:26] LABS: Hematocrit 24.1 % (42.0-52.0); Hemoglobin 7.8 g/dL (14.1-18.0); Immature Granulocytes % 1.6 %; Mean Corpuscular HGB Conc 32.4 g/dL (31.8-35.4); Mean Corpuscular Hemoglobin 29.8 pg (27.0-31.2); Mean Corpuscular Volume 92.0 fl (80-94); Nucleated Red Blood Cells % 0.4 %; Platelet Count 315 K/mm3 (142-424); Red Blood Count 2.62 M/mm3 (4.60-6.20); Red Cell Distribution Width-SD 76.4 fL; White Blood Count 10.9 K/mm3 (4.8-10.8)
--- OUTSIDE RECORDS SUMMARY | 2025-07-13 23:29 | XMS_ITS | Continuity of Care Document ---
Author Name [facility] Organization [facility] Care Team Providers Care Student Services Director Name Role Phone [facility] Unavailable Unavailable Social History Combined list of available smoking, tobacco, and other social history from Department of Defense and Veterans Affairs facilities. Social History Type Response Date Comment Sourc e This section is an empty social history section. [facility]
--- OUTSIDE RECORDS SUMMARY | 2025-07-13 23:31 | XMS_ITS | Encounter Summary ---
Author Organization [facility] Address [address] [place] [address] Care Team Providers Care Vice Chairman Name Role Phone Tristan Billings DO Primary Care Provider [phone] Abelardo Pappas MD Primary Care Provider [phone] Encounter Details Date Type Department Care Team (Late Contact Info) Description 06/01/2025 Orders Only [facility] [address] [place] [address] Justen Jaimes MD [address] [address] Social History Tobacco Use Types [...] Description 11/28/2025 2:00 PM EDT Office Visit [facility] [address] [place] [phone] 11/28/2025 3:00 PM EDT Office Visit [facility] [address] [place] [phone] Justen Jaimes MD [address] [place] [phone] 11/28/2025 3:15 PM EDT Clinical Support [facility] [address] [place] [phone] documented as of this encounter Procedures Procedure [...] documented as of this encounter Care Teams Vice Chairman Relationship Specialty Start Date End Date Tristan Billings DO [address] [place] [address] PCP - General 09/13/24 06/03/25 Abelardo Pappas MD [address] [place] [address] PCP - General 06/04/25 documented as of this encounter
--- OUTSIDE RECORDS SUMMARY | 2025-07-13 23:31 | XMS_ITS | Encounter Summary ---
Author Organization [facility] Address [address] [place] [address] Care Team Providers Care Lead Accountant Name Role Phone Abelardo Pappas MD Primary Care Provider [phone] Encounter Details Date Type Department Care Team (Late st Contact Info) Description 06/06/2025 Orders Only [facility] [address] [place] [phone] Justen Jaimes MD [address] [facility] [address] [place] [phone] Social History Tobacco Use Types Packs/Day Years [...] Suicidal Behavior (Lifetime) No 3:40 PM EDT aFny Willis, RN documented as of this encounter Plan of Treatment Upcoming Encounters Date Type Department Care Team (Late st Contact Info) Description 11/28/2025 2:00 PM EDT Office Visit [facility] [address] [place] [address] 11/28/2025 3:00 PM EDT Office Visit [facility] [address] [place] [address] Justen Jaimes MD [address] [address] 11/28/2025 3:15 PM EDT Clinical Support [facility] [address] [place] [address] documented as of this encounter [...] documented as of this encounter Care Teams Lead Accountant Relationship Specialty Start Date End Date Abelardo Pappas MD [address] [place] [address] PCP - General 06/04/25 documented as of this encounter
--- OUTSIDE RECORDS SUMMARY | 2025-07-13 23:31 | XMS_ITS | Encounter Summary ---
Author Organization [facility] Address [address] [place] [address] Care Team Providers Care Geriatric Personal Care Aide Name Role Phone Abelardo Pappas MD Primary Care Provider [phone] Encounter Details Date Type Department Care Team [...] Description 11/28/2025 2:00 PM EDT Office Visit [facility] [address] [place] [phone] 11/28/2025 3:00 PM EDT Office Visit [facility] [address] [place] [phone] Justen Jaimes MD [address] [phone] 11/28/2025 3:15 PM EDT Clinical Support [facility] [address] [place] [address] documented as of this encounter Visit Diagnoses Not on filedocumented in this encounter Additional Health Concerns Assessment Noted Time PHQ-9 Depression Total Score: 0 12/28/19 1:21 PM EDT A fall risk assessment has been complete d for the patient 12/27/2024 1:20 PM EDT documented as of this encounter Care Teams Geriatric Personal Care Aide Relationship Specialty Start Date End Date Abelardo Pappas MD [address] [place] [address] PCP - General 06/04/25 documented as of this encounter
--- OUTSIDE RECORDS SUMMARY | 2025-07-13 23:31 | XMS_ITS | Encounter Summary ---
Author Organization [facility] Address [address] [place] [address] Care Team Providers Care Overseamer Name Role Phone Abelardo Pappas MD Primary Care Provider [phone] Encounter Details Date Type Department Care Team [...] [facility] [address] [place] [phone] 11/28/2025 3:00 PM EDT Office Visit [facility] [address] [place] [phone] Justen Jaimes MD [address] [phone] 11/28/2025 3:15 PM EDT Clinical Support [facility] at [facility] [address] [place] [phone] documented as of this encounter Visit Diagnoses Not on filedocumented in this encounter Additional Health Concerns Assessment Noted Time PHQ-9 Depression Total Score: 0 12/28/19 1:21 PM EDT A fall risk assessment has been complete d for the patient 06/06/2025 3:46 PM EDT documented as of this encounter Care Teams Overseamer Relationship Specialty Start Date End Date Abelardo Pappas MD [address] [place] [address] PCP - General 06/04/25 documented as of this encounter
--- OUTSIDE RECORDS SUMMARY | 2025-07-13 23:31 | XMS_ITS ---
Author Organization Unknown ENCOUNTERS Encounter Performer Location Date Diagnosis Diagnosis Status Emergency [facility] [address] [place] [facility] [address] [place] [address] [id number] Pre Admit [facility] [address] [place] [facility] [address] [place] [address] [id number] Emergency [facility] [address] [place] [facility] [address] [place] [address] [id number] ANDREWS Pre Admit [facility] [address] [place] [address] [place] [address] [id number] Emergency [facility] [address] [place] [address] [place] [address] [id number] ANDREWS Pre Admit [facility] [address] [place] [address] [place] [address] [id number] Emergency [facility] [address] [place] [address] [place] [address] [id number] ANDREWS Pre Admit [facility] [address] [place] [address] [place] [address] [id number] Emergency [facility] [address] [place] [address] [place] [address] [id number] Pre Admit [facility] [address] [place] [address] [place] [address] [id number] Emergency [facility] [address] [place] [address] [place] [address] [id number] ANDREWS Pre Admit [facility] [address] [place] [address] [place] [address] [id number] Pre Admit [facility] [address] [place] [address] [place] [address] [id number] Emergency [facility] [address] [place] [address] [place] [address] [id number] ANDREWS Emergency [facility] [address] [place] [facility] [address] [place] [address] [id number] ANDREWS Pre Admit [facility] [address] [facility] [address] [place] [address] [id number] Emergency [facility] [address] [facility] [address] [place] [address] [id number] ANDREWS Pre Admit [facility] [address] [place] [facility] [address] [place] [address] [id number] Emergency [facility] [address] [facility] [address] [place] [address] [id number] ANDREWS Pre Admit [facility] [address] [facility] [address] [place] [address] [id number] Pre Admit [facility] [address] [facility] [address] [place] [address] [id number] Emergency [facility] [address] [facility] [address] [place] [address] [id number] ANDREWS Emergency [facility] [address] [facility] [address] [place] [address] [id number] ANDREWS Pre Admit [facility] [address] [facility] [address] [place] [address] [id number] *Note: Encounters from your own facility or health system may be excluded. Allergies, Adverse Reactions, Alerts Allergen Type Severity Identification Date Medications Name Date Quantity Days Supplied [facility] Number
--- OUTSIDE RECORDS SUMMARY | 2025-07-13 23:31 | XMS_ITS | Encounter Summary ---
Author Organization [facility] Address [address] [place] [address] Care Team Providers Care Bead Supervisor Name Role Phone YosiTristan centeno Primary Care Provider [phone] Encounter Details Date Type Department Care Team (Late st Contact Info) Description 05/11/2025 Abstract [facility] [address] [place] [address] Justen Jaimes MD [address] [phone] Social History Tobacco Use Types Packs/Day Years [...] Description 11/28/2025 2:00 PM EDT Office Visit [facility] [address] [place] [phone] 11/28/2025 3:00 PM EDT Office Visit [facility] [address] [place] [phone] Justen Jaimes MD [address] [phone] 11/28/2025 3:15 PM EDT Clinical Support [facility] [address] [place] [address] documented as of this encounter Visit Diagnoses Not on filedocumented in this encounter Additional Health Concerns Assessment Noted Time PHQ-9 Depression Total Score: 0 12/28/19 1:21 PM EDT A fall risk assessment has been complete d for the patient 12/27/2024 1:20 PM EDT documented as of this encounter Care Teams Bead Supervisor Relationship Specialty Start Date End Date Tristan Billings DO [address] [place] [address] PCP - General 09/13/24 06/03/25 documented as of this encounter
--- OUTSIDE RECORDS SUMMARY | 2025-07-13 23:31 | XMS_ITS | Encounter Summary ---
Author Organization [facility] Address [address] [place] [address] Care Team Providers Care Fine Hairer Name Role Phone Abelardo Pappas MD Primary Care Provider [phone] Encounter Details Date Type Department Care Team (Late Contact Info) Description 06/28/2025 Orders Only [facility] [address] [place] [address] Justen Jaimes MD [address] [place] [address] [phone] Malignant neoplasm of prostate (CMS/HCC) Social History [...] EDT Office Visit [facility] [address] [place] [address] 11/28/2025 3:00 PM EDT Office Visit [facility] [address] [place] [address] Justen Jaimes MD [address] [phone] 11/28/2025 3:15 PM EDT Clinical Support [facility] [address] [place] [address] documented as of this encounter Visit Diagnoses Diagnosis Malignant neoplasm of prostate (CMS/HCC) Malignant neoplasm of prostate documented in this encounter Additional Health Concerns Assessment Noted Time PHQ-9 Depression Total Score: 0 12/28/19 1:21 PM EDT A fall risk assessment has been complete d for the patient 06/06/2025 3:46 PM EDT documented as of this encounter Care Teams Fine Hairer Relationship Specialty Start Date End Date Abelardo Pappas MD [address] [place] [address] PCP - General 06/04/25 documented as of this encounter
--- OUTSIDE RECORDS SUMMARY | 2025-07-13 23:31 | XMS_ITS | Encounter Summary ---
Author Organization [facility] Address [address] [place] [address] Care Team Providers Care Sign Out Clerk Name Role Phone Abelardo Pappas MD Primary Care Provider [phone] Encounter Details Date Type Department Care Team (Late st Contact Info) Description 06/06/2025 Orders Only [facility] [address] [place] [phone] Justen Jaimes MD [address] [facility] [address] [place] [phone] Social History Tobacco Use Types Packs/Day Years [...] Visit [facility] [address] [place] [phone] 11/28/2025 3:00 PM EDT Office Visit [facility] [address] [place] [phone] Justen Jaimes MD [address] [phone] 11/28/2025 3:15 PM EDT Clinical Support [facility] [address] [place] [phone] documented as of this encounter Procedures Procedure Name Priority Date/Time Associated Diagnosis Comments RBC MORPHOLOGY ([facility]) Routine 06/06/2025 1:50 PM EDT documented in this encounter Results * (ABNORMAL) RBC MORPHOLOGY (EXTERNAL) (06/06/2025 1:50 PM EDT) External Platelet Morphology NORMAL 06/06/2025 4:06 PM EDT [facility] External Ovalocytes SLIGHT(A) 06/06/2025 4:06 PM EDT [facility] External Stomatocyte SLIGHT(A) 06/06/2025 4:06 PM EDT [facility] External Target Cells SLIGHT(A) 06/06/2025 4:06 PM EDT [facility] External Tear Drop Cells SLIGHT(A) 06/06/2025 4:06 PM EDT [facility] 06/06/2025 1:50 PM EDT 06/06/2025 2:21 PM EDT us Justen Jaimes MD LAB BLOOD ORDERABLES Flaca ledezma Result [facility] [address] [place] [address], documented in this encounter Visit Diagnoses Not on filedocumented in this encounter Additional Health Concerns Assessment Noted Time PHQ-9 Depression Total Score: 0 12/28/19 1:21 PM EDT A fall risk assessment has been complete d for the patient 06/06/2025 3:46 PM EDT documented as of this encounter Care Teams Sign Out Clerk Relationship Specialty Start Date End Date Abelardo Pappas MD [address] [place] [address] PCP - General 06/04/25 documented as of this encounter
--- OUTSIDE RECORDS SUMMARY | 2025-07-13 23:31 | XMS_ITS | Data Portability ---
Author Organization [facility] MARY [facility] [place] CLOSED Address [address] [place] [address] Assessment Encounter Date Assessment Date Assessment LastModified [...] Lab urinalysi s panel, auto [address] [facility], [address], [address], [place], [address], 02/28/2025 14:44:08 PSA, serum or plasma [address] [facility], [address], [address], [place], [address], 02/28/2025 14:44:08 urinalysi s panel, auto [address] [facility], [address], [address], [place], [address], 09/05/2024 22:40:08 Referral None recorded. Procedures None recorded. Surgeries None recorded. Imaging None recorded. Medication Orders levofloxa brittney 750 mg tablet 2023 [facility], [address] [place] [address] [address], [place], [place], [id number], 07/26/2024 13:18:08 oxybutyni n chloride ER 5 mg tablet,ex tended release 24 hr 2023 [facility], [address] [place] [address] [address], [place], [place], [id number], 07/26/2024 13:18:07 tamsulosi n 0.4 mg capsule 2023 024 [facility], [address], [place], [address], 07/25/2024 14:38:23 Patient TargetsNo targets recorded. Patient Instructions Encounter Date Encounter Id Patient Instructions Last Modified By Organization Details Last Modified Time 08/09/2024 [id number] learning about depression [email or web address] Not available 08/09/2024 21:12:50 Reason for Referral None Reported. Results Created Date Observation Date Name Description Value Unit Range Abnormal Flag Note LastModifiedBy Organization Detail LastModifiedTime 08/04/20 24 08/04/2024 PROTH ROMBI N TIME prothrombin time 11.5 secon ds 9.2-11 .0 high Not Available [facility] [address] [place], [address], 08/04/2024 08:45:13 08/04/2008/04/2024 PROTH ROMBI N TIME [...] NICAL PROST HETIC VALVE S Not Available [facility] [address] [place], [address], 08/04/2024 08:45:13 08/04/2008/04/2024 SURGI BRIEN surgical SEE [...] rmed on tissu e from case [id number] 1. The case repor t, slide s, [...] 14:29 Page 1 of 1 Not Available [facility] [address] [place] [address], [address], 08/10/2024 13:53:39 09/03/20 24 09/03/2024 urina lysis panel , auto Unknown Analyte Clean Catch Not Available [facility] [address], [place], [address], 09/03/2024 12:05:04 09/03/20 24 09/03/2024 urina lysis panel , auto Unknown Analyte Yellow Not Available [facility] [address], [place], [address], 09/03/2024 12:05:04 09/03/20 24 09/03/2024 urina lysis panel , auto Unknown Analyte Clear Not Available [facility] [place] [address], [place], [address], 09/03/2024 12:05:04 09/03/20 24 09/03/2024 urina lysis panel , auto Unknown Analyte 1.015 Not Available [facility] [address], [place], [address], 09/03/2024 12:05:04 09/03/20 24 09/03/2024 urina lysis panel , auto Unknown Analyte 1.003- 1.035 Not Available [facility] [address], [place], [address], 09/03/2024 12:05:04 09/03/20 24 09/03/2024 urina lysis panel , auto Unknown Analyte 5.0 Not Available [facility] [address], [place], [address], 09/03/2024 12:05:04 09/03/20 24 09/03/2024 urina lysis panel , auto Unknown Analyte 5.0-8. 0 Not Available [facility] [address], [place], [address], 09/03/2024 12:05:04 09/03/20 24 09/03/2024 urina lysis panel , auto Unknown Analyte Negati ve Not Available [facility] [address], [place], [address], 09/03/2024 12:05:04 09/03/20 24 09/03/2024 urina lysis panel , auto Unknown Analyte Negati ve Not Available [facility] [address], [place], [address], 09/03/2024 12:05:04 09/03/20 24 09/03/2024 urina lysis panel , auto Unknown Analyte Negati ve Not Available [facility] [address], [place], [address], 09/03/2024 12:05:04 09/03/20 24 09/03/2024 urina lysis panel , auto Unknown Analyte Negati ve Not Available [facility] [address], [place], [address], 09/03/2024 12:05:04 09/03/20 24 09/03/2024 urina lysis panel , auto Unknown Analyte Negati ve Not Available [facility] [address], [place], [address], 09/03/2024 12:05:04 09/03/20 24 09/03/2024 urina lysis panel , auto Unknown Analyte Negati ve Not Available [facility] [address], [place], [address], 09/03/2024 12:05:04 09/03/20 24 09/03/2024 urina lysis panel , auto Unknown Analyte >1000 mg/dl Not Available [facility] [address], [place], [address], 09/03/2024 12:05:04 09/03/20 24 09/03/2024 urina lysis panel , auto Unknown Analyte Normal Not Available [facility] [address], [place], [address], 09/03/2024 12:05:04 09/03/20 24 09/03/2024 urina lysis panel , auto Unknown Analyte Negati ve Not Available [facility] [address], [place], [address], 09/03/2024 12:05:04 09/03/2009/03/2024 urina lysis panel , auto Unknown Analyte Negati ve Not Available [facility] [address], [place], [address], 09/03/2024 12:05:04 09/03/20 24 09/03/2024 urina lysis panel , auto Unknown Analyte Normal Not Available [facility] [address], [place], [address], 09/03/2024 12:05:04 09/03/2009/03/2024 urina lysis panel , auto Unknown Analyte Normal 1 mg/dl Not Available [facility] [address], [place], [address], 09/03/2024 12:05:04 09/03/20 24 09/03/2024 urina lysis panel , auto Unknown Analyte Negati ve Not Available [facility] [address], [place], [address], 09/03/2024 12:05:04 09/03/20 24 09/03/2024 urina lysis panel , auto Unknown Analyte Negati ve Not Available [facility] [address], [place], [address], 09/03/2024 12:05:04 09/03/20 24 09/03/2024 urina lysis panel , auto Unknown Analyte 250 Arslan/ul Not Available [facility] [address], [place], [address], 09/03/2024 12:05:04 09/03/20 24 09/03/2024 urina lysis panel , auto Unknown Analyte Negati ve Not Available [facility] [address], [place], [address], 09/03/2024 12:05:04 02/29/20 25 02/28/2025 PSA, serum or plasm a PSA 0.53 NG/mL 0.0 - 4.0 Not Available [facility] [address], [place], [address], 02/28/2025 14:21:40 02/29/20 25 02/28/2025 urina lysis panel , auto Unknown Analyte Clean Catch Not Available [facility] [address], [place], [address], 02/28/2025 14:04:51 02/29/20 25 02/28/2025 urina lysis panel , auto Unknown Analyte Yellow Not Available [facility] [address], [place], [address], 02/28/2025 14:04:51 02/29/20 25 02/28/2025 urina lysis panel , auto Unknown Analyte Clear Not Available [facility] [address], [place], [address], 02/28/2025 14:04:51 02/29/20 25 02/28/2025 urina lysis panel , auto Unknown Analyte 1.020 Not Available [facility] [address], [place], [address], 02/28/2025 14:04:51 02/29/20 25 02/28/2025 urina lysis panel , auto Unknown Analyte 1.003 - 1.030 Not Available [facility] [address], [place], [address], 02/28/2025 14:04:51 02/29/20 25 02/28/2025 urina lysis panel , auto Unknown Analyte 5.0 Not Available [facility] [address], [place], [address], 02/28/2025 14:04:51 02/29/20 25 02/28/2025 urina lysis panel , auto Unknown Analyte 5.0 - 8.0 Not Available [facility] [address], [place], [address], 02/28/2025 14:04:51 02/29/20 25 02/28/2025 urina lysis panel , auto Unknown Analyte 75 Iveth/uL Not Available [facility] [address], [place], [address], 02/28/2025 14:04:51 02/29/20 25 02/28/2025 urina lysis panel , auto Unknown Analyte Negati ve Not Available [facility] [address], [place], [address], 02/28/2025 14:04:51 02/29/20 25 02/28/2025 urina lysis panel , auto Unknown Analyte Negati ve Not Available [facility] [address], [place], [address], 02/28/2025 14:04:51 02/29/20 25 02/28/2025 urina lysis panel , auto Unknown Analyte Negati ve Not Available [facility] [address], [place], [address], 02/28/2025 14:04:51 02/29/20 25 02/28/2025 urina lysis panel , auto Unknown Analyte Trace Not Available [facility] [address], [place], [address], 02/28/2025 14:04:51 02/29/20 25 02/28/2025 urina lysis panel , auto Unknown Analyte Negati ve Not Available [facility] [address], [place], [address], 02/28/2025 14:04:51 02/29/20 25 02/28/2025 urina lysis panel , auto Unknown Analyte >1000 mg/dL Not Available [facility] [address], [place], [address], 02/28/2025 14:04:51 02/29/20 25 02/28/2025 urina lysis panel , auto Unknown Analyte Normal Not Available [facility] [address], [place], [address], 02/28/2025 14:04:51 02/29/20 25 02/28/2025 urina lysis panel , auto Unknown Analyte Negati ve Not Available [facility] [address], [place], [address], 02/28/2025 14:04:51 02/29/20 25 02/28/2025 urina lysis panel , auto Unknown Analyte Negati ve Not Available [facility] [address], [place], [address], 02/28/2025 14:04:51 02/29/20 25 02/28/2025 urina lysis panel , auto Unknown Analyte Normal Not Available [facility] [address], [place], [address], 02/28/2025 14:04:51 02/29/20 25 02/28/2025 urina lysis panel , auto Unknown Analyte Normal Not Available [facility] [address], [place], [address], 02/28/2025 14:04:51 02/29/20 25 02/28/2025 urina lysis panel , auto Unknown Analyte 1 mg/dL Not Available [facility] [address], [place], [address], 02/28/2025 14:04:51 02/29/20 25 02/28/2025 urina lysis panel , auto Unknown Analyte Negati ve Not Available [facility] [address], [place], [address], 02/28/2025 14:04:51 02/29/20 25 02/28/2025 urina lysis panel , auto Unknown Analyte 50 Arslan/uL Not Available [facility] [address], [place], [address], 02/28/2025 14:04:51 02/29/20 25 02/28/2025 urina lysis panel , auto Unknown Analyte Negati ve Not Available [facility] [address] [facility] [address], [place], [address], 02/28/2025 14:04:51 06/06/20 25 06/06/2025 MORPH OLOGY platelet morphology NORMAL normal Not Available [facility] [address] [place], [address], 06/06/2025 16:06:17 06/06/20 25 06/06/2025 MORPH OLOGY ovalocytes SLIGHT abnormal Not Available [facility] [address] [place], [address], 06/06/2025 16:06:17 06/06/20 25 06/06/2025 MORPH OLOGY stomatocytes SLIGHT abnormal Not Available [facility] [address] [place], [address], 06/06/2025 16:06:17 06/06/20 25 06/06/2025 MORPH OLOGY target cells SLIGHT abnormal Not Available [facility] [address] [place], [address], 06/06/2025 16:06:17 06/06/20 25 06/06/2025 MORPH OLOGY dacryocytes SLIGHT abnormal Not Available [facility] [address] [place], [address], 06/06/2025 16:06:17 06/06/20 25 06/06/2025 COMPL ETE BLOOD COUNT white blood cells 5.5 10*3/ uL 3.8-10 .8 normal Not Available [facility] [address] [place] [address], [address], 06/06/2025 16:06:16 06/06/20 25 06/06/2025 COMPL ETE BLOOD COUNT red blood cells 3.67 10*6/ uL 4.20-5 .80 low Not Available [facility] [address] [place] [address], [address], 06/06/2025 16:06:16 06/06/20 25 06/06/2025 COMPL ETE BLOOD COUNT hemoglobin 10.3 g/dL 14.0-1 8.0 low Not Available [facility] [address] [place] [address], [address], 06/06/2025 16:06:16 06/06/20 25 06/06/2025 COMPL ETE BLOOD COUNT hematocrit 32.8 % 40.0-5 2.0 low Not Available [facility] [address] [place] [address], [address], 06/06/2025 16:06:16 06/06/20 25 06/06/2025 COMPL ETE BLOOD COUNT MCV 89 fL 80-100 normal Not Available [facility] [address] [place] [address], [address], 06/06/2025 16:06:16 06/06/20 25 06/06/2025 COMPL ETE BLOOD COUNT MCH 28 pg 26-35 normal Not Available [facility] [address] [place] [address], [address], 06/06/2025 16:06:16 06/06/20 25 06/06/2025 COMPL ETE BLOOD COUNT MCHC 31 g/dL 32-36 low Not Available [facility] [address] [place] [address], [address], 06/06/2025 16:06:16 06/06/20 25 06/06/2025 COMPL ETE BLOOD COUNT RDW 23.0 % 11.0-1 5.0 high Not Available [facility] [address] [place] [address], [address], 06/06/2025 16:06:16 06/06/20 25 06/06/2025 COMPL ETE BLOOD COUNT MPV 7.3 fL 6.2-10 .5 normal Not Available [facility] [address] [place] [address], [address], 06/06/2025 16:06:16 06/06/20 25 06/06/2025 COMPL ETE BLOOD COUNT platelet count 326 10*3/ uL 150-40 0 normal Not Available [facility] [address] [place] [address], [address], 06/06/2025 16:06:16 06/06/20 25 06/06/2025 COMPL ETE BLOOD COUNT neutrophil,a bsolute 3.5 10*3/ uL 1.6-8. 4 normal Not Available [facility] [address] [place] [address], [address], 06/06/2025 16:06:16 06/06/20 25 06/06/2025 COMPL ETE BLOOD COUNT lymphocyte,a bsolute 0.7 10*3/ uL 0.4-5. 1 normal Not Available [facility] [address] [place] [address], [address], 06/06/2025 16:06:16 06/06/20 25 06/06/2025 COMPL ETE BLOOD COUNT monocyte,abs olute 0.5 10*3/ uL 0.0-1. 2 normal Not Available [facility] [address] [place] [address], [address], 06/06/2025 16:06:16 06/06/20 25 06/06/2025 COMPL ETE BLOOD COUNT eosinophil,a bsolute 0.7 10*3/ uL 0.0-0. 8 normal Not Available [facility] [address] [place] [address], [address], 06/06/2025 16:06:16 06/06/20 25 06/06/2025 COMPL ETE BLOOD COUNT basophil,abs olute 0.1 10*3/ uL 0.0-0. 3 normal Smear revie wed to confi rm cell morph ology . Not Available [facility] [address] [place] [address], [address], 06/06/2025 16:06:16 06/06/20 25 06/06/2025 COMPL ETE BLOOD COUNT % neutrophils 63.9 % 42.0-7 8.0 normal Not Available [facility] [address] [place] [address], [address], 06/06/2025 16:06:16 06/06/20 25 06/06/2025 COMPL ETE BLOOD COUNT % lymphocytes 13.1 % 11.0-4 7.0 normal Not Available [facility] [address] [place] [address], [address], 06/06/2025 16:06:16 06/06/20 25 06/06/2025 COMPL ETE BLOOD COUNT % monocytes 8.8 % 0.0-11 .0 normal Not Available [facility] [address] [place] [address], [address], 06/06/2025 16:06:16 06/06/20 25 06/06/2025 COMPL ETE BLOOD COUNT % eosinophils 13.2 % 0.0-7. 0 high Not Available [facility] [address] [place] [address], [address], 06/06/2025 16:06:16 06/06/20 25 06/06/2025 COMPL ETE BLOOD COUNT % basophils 1.0 % 0.0-3. 0 normal Not Available [facility] [address] [place] [address], [address], 06/06/2025 16:06:16 06/06/20 25 06/06/2025 COMPL ETE BLOOD COUNT nucleated red cells 0.3 % 0.0-0. 9 normal Not Available [facility] [address] [place] [address], [address], 06/06/2025 16:06:16 06/06/20 25 06/06/2025 COMPL ETE BLOOD COUNT nucleated RBCs, absolute 0.02 10*3/ uL not estab. normal Not Available [facility] [address] [place], [address], 06/06/2025 16:06:16 06/06/20 25 06/06/2025 PSA, TOTAL [...] not be nyla rable . Not Available [facility] [place], [address], 06/06/2025 15:01:06 06/06/20 25 06/06/2025 PSA, TOTAL AND FREE free PSA 0.17 NG/mL normal Test metho d is based on WHO-s tanda rdize d calib ratio n using the Ekta E801 fadia zer. Free PSA resul ts by diffe rent test proce dures canno t be direc tly nyla red with one anoth er. Not Available [facility] [address] [place], [address], 06/06/2025 15:01:06 06/06/20 25 06/06/2025 PSA, TOTAL AND FREE % free PSA 63 % normal ____ PSA ng/mL % FREE PSA Proba bilit y of Prost ate Cance r % ____ Less than 4.00 N/A 17% 4.0 - 10.0 0-10 56% 10-15 28% 15-20 20% 20-25 16% Great er than 25 8% Great er than 10.0 N/A 49% ____ Not Available [facility] [address] [place] [address], [address], 06/06/2025 15:01:06 06/06/20 25 06/06/2025 COMP. METAB OLIC PANEL glucose 101 mg/dL 74-100 high Not Available [facility] [address] [place] [address], [address], 06/06/2025 14:55:03 06/06/20 25 06/06/2025 COMP. METAB OLIC PANEL blood urea nitrogen 22 mg/dL 6-20 high Not Available [facility] [address] [place] [address], [address], 06/06/2025 14:55:03 06/06/20 25 06/06/2025 COMP. METAB OLIC PANEL creatinine 0.97 mg/dL 0.70-1 .20 normal Not Available [facility] [address] [place] [address], [address], 06/06/2025 14:55:03 06/06/20 25 06/06/2025 COMP. METAB OLIC PANEL BUN/creatini ne ratio 23 (calc ) 10-20 high Not Available [facility] [address] [place] [address], [address], 06/06/2025 14:55:03 06/06/20 25 06/06/2025 COMP. METAB OLIC PANEL sodium 144 mmol/ L 136-14 5 normal Not Available [facility] [address] [place] [address], [address], 06/06/2025 14:55:03 06/06/20 25 06/06/2025 COMP. METAB OLIC PANEL potassium 3.7 mmol/ L 3.4-5. 0 normal Not Available [facility] [address] [place] [address], [address], 06/06/2025 14:55:03 06/06/20 25 06/06/2025 COMP. METAB OLIC PANEL chloride 103 mmol/ L 98-107 normal Not Available [facility] [address] [place] [address], [address], 06/06/2025 14:55:03 06/06/20 25 06/06/2025 COMP. METAB OLIC PANEL carbon dioxide 27 mmol/ L 22-31 normal Not Available [facility] [address] [place] [address], [address], 06/06/2025 14:55:03 06/06/20 25 06/06/2025 COMP. METAB OLIC PANEL anion gap 14 (calc ) 7-25 normal Not Available [facility] [address] [place] [address], [address], 06/06/2025 14:55:03 06/06/20 25 06/06/2025 COMP. METAB OLIC PANEL calcium 10.0 mg/dL 8.6-10 .2 normal Not Available [facility] [facility] [address] [place] [address], [phone], 06/06/2025 14:55:03 06/06/20 25 06/06/2025 COMP. METAB OLIC PANEL total protein 6.9 g/dL 6.4-8. 3 normal Not Available [facility] [address] [place] [address], [phone], 06/06/2025 14:55:03 06/06/20 25 06/06/2025 COMP. METAB OLIC PANEL albumin 4.4 g/dL 3.5-5. 2 normal Not Available [facility] [address] [place] [address], [phone], 06/06/2025 14:55:03 06/06/20 25 06/06/2025 COMP. METAB OLIC PANEL globulin 2.5 1.5-4. 5 normal Not Available [facility] [address] [place] [address], [phone], 06/06/2025 14:55:03 06/06/20 25 06/06/2025 COMP. METAB OLIC PANEL albumin/glob ulin ratio 1.8 (calc ) 1.1-2. 5 normal Not Available [facility] [address] [place] [address], [phone], 06/06/2025 14:55:03 06/06/20 25 06/06/2025 COMP. METAB OLIC PANEL bilirubin, total 0.3 mg/dL 0.1-1. 0 normal NOTE: New refer ence range . Not Available [facility] [address] [place] [address], [phone], 06/06/2025 14:55:03 06/06/20 25 06/06/2025 COMP. METAB OLIC PANEL alkaline phosphatase 85 U/L 40-129 normal Not Available [facility] [address] [place], [address], 06/06/2025 14:55:03 06/06/20 25 06/06/2025 COMP. METAB OLIC PANEL AST 25 U/L 0-40 normal Not Available [facility] [address] [place] [address], [phone], 06/06/2025 14:55:03 06/06/20 25 06/06/2025 COMP. METAB OLIC PANEL ALT 32 U/L 0-41 normal Not Available [facility] [address] [place], [address], 06/06/2025 14:55:03 06/06/20 25 06/06/2025 COMP. METAB [...] s/KDO QI/gf r_cal culat orPed Not Available [facility] [address] [place], [address], 06/06/2025 14:55:03 06/22/20 24 06/22/2024 MRI, pelvi s, w/wo contr ast [address] [address] Patidc t Name: TRISHA Paige t : [...] st (1 x 10 mL bottle of [facility] 02897- 325-02 ) IV. The patien t did [...] a compon ent extend ing to the energy efficiency specialist ior inferi or midlin e and likely [...] Tristan Escalona MD on 024 2:[id number] [place] [address] Radiology [facility] [address] [facility], [place], [address], 07/23/2024 10:05:21 09/01/20 24 09/01/2024 PET-C T, skull base to mid-t high scan [facility] [address] [facility] [place] [place] [address] Patidc t Name: TRISHA olson : 1944 [...] 6.2 mCi Ga-68 PSMA ([facility] [address]- 100-64 ) was inject ed IV. After [...] 50 ml bottle of [facility] [id number] [id number] ) admini stered [...] thy. There is adenop athy in the communications intern al iliac region and along the [...] Escalona MD on 2023 12:24 PM INTERFACE [facility] [address] [place] [address], [phone], 09/01/2024 12:29:17 09/27/19 25 09/27/2024 MRI, pelvi s, w/o contr ast [address] [place] [address] Patien t Name: TRISHA Mireles OVERMA N [...] Escalona MD on 025 4:20 PM INTERFACE [facility] [address], [address], 09/27/2024 16:25:25 Result Notes Documentation Provider Name and Address Organization Details Recorded Time Pet-ct, Skull Base To Mid-thigh Scan : [address] [address] Patient Name: ALBERT LEZMAA Patient : 1945 Patient Ordering Provider: ZORAIDA [...] 6.2 mCi Ga-68 PSMA ([facility] 60732-775-04) was injected IV. After an uptake time of 76 minutes, vertex through midthigh PET imaging was performed. This was followed by a low dose attenuation correction/anatomic localization CT from vertex through the midthigh levels. Urinary tract was opacified with an injection of 50 mL Omnipaque 350 (1 x 50 ml bottle of [facility] [id number]) administered [address] scan. [...] Interpreted By: Tristan Escalona MD Not Available Count includes the [facility] 09/01/2024 12:29:17 Mri, Pelvis, W/o Contrast : [address] [address] Patient Name: ALBERT LEZAMA Patient : 1945 [...] Interpreted By: Tristan Escalona MD Not Available Count includes the [facility] 09/27/2024 16:25:25 Problems No Known Problems Procedures Surgical History Date Name Laterality Status Provider Name and Address Organization Details Recorded Time 02/29/20 25 Lupron Administration completed Harleen Monroy [facility] 02/28/2025 14:50:38 09/03/20 24 Lupron Administration completed Sadia Ndiaye [facility] 09/03/2024 13:10:22 Vasectomy completed Sadia Ndiaye [facility] 05/19/2024 15:50:09 procedure on knee completed Sadia Ndiaye [facility] 05/19/2024 15:52:15 mechanical prosthetic aortic valve replacement completed Tammy Curtis [facility] 05/21/2024 09:02:43 Imaging Results None [...] Updated DateTime 02/28/2025 187.96 cm 23.8 kg/m2 95772.59 g Harleen Porfirio [facility] 02/28/2025 14:14:02 Date Recorded Body height Body mass index (BMI) Body weight Provider Name and Address Organization Details Last Updated DateTime 07/23/2024 187.96 cm 24.4 kg/m2 55129.55 g Tammy Curtis [facility] 07/23/2024 12:18:57 Date Recorded Body height Body mass index (BMI) Body weight Provider Name and Address Organization Details Last Updated DateTime 08/09/2024 187.96 cm 24.4 kg/m2 52782.55 g Grazyna Terrazas [facility] 08/09/2024 14:37:05 Date Recorded Body height Body mass index (BMI) Body weight Provider Name and Address Organization Details Last Updated DateTime 09/03/2024 187.96 cm 24.4 kg/m2 45129.55 g Sadia Ndiaye [facility] 09/03/2024 13:09:35 Social History Question Answer Notes LastModified by Organizat ion Details LastModified Time Tobacco Smoking Status Former Smoker cigarettes Sadia Ndiaye [facility] 05/19/2024 15:49:08 When Did You Quit Smoking? 18+yearssin [email or web address] Information not available 05/19/2024 What Was The Date Of Your Most Recent Tobacco Screening? 02/28/2025 [email or web address] Information not available 02/28/2025 What Is Your Relationship Status? Information not available 05/19/2024 How Much Tobacco Do You Smoke? No [email or web address] Information not available 05/19/2024 Has Tobacco Cessation Counseling Been Provided? No [email or web address] Information not available 05/19/2024 Sex: Male Functional Status Question Answer Note LastModified by Organizat ion Details LastModified Time Do you use any illicit or recreational drugs? No Information not available 05/19/2024 Do you or have you ever used any other forms of tobacco or nicotine? No Information not available 05/19/2024 What is your level of alcohol consumption? None [email or web address] Information not available 05/19/2024 Are you currently employed? No retired [email or web address] Information not available 05/19/2024 Mental Status None recorded. Family History Nothing Reported. Medical History Condition Response Sleep Apnea Y Past Encounters Encounter ID Performer Location Encounter Start Date Encounter Closed Date Diagnosis/Indication Diagnosis SNOMED-CT Code Diagnosis ICD10 Code Diagnosis IMO Codes Diagnosis Note [id number] FADY LAMB MD [facility] [address] [place] [address] 05/19/2024 13:25:43 05/21/2024 06:07:21 Prostate specific antigen above reference range 988035255 R97.20 Sailaja astudillo his medical history I [...] needle biopsy of the prostate Large prostate 545421224 N40.0 Continue tamsulosin [id number] FADY LAMB MD [facility] [address] [place] [address] 07/23/2024 11:25:17 07/23/2024 16:41:36 Prostate specific antigen above reference range 227760807 R97.20 We will arrange for MRI directed transrecta l ultrasound and needle biopsy of the prostate under sedation. 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 [address] [place] [id number] 08/09/2024 14:02:05 08/10/2024 04:08:34 Tad hematuria 147886554 R31.0 He is encouraged to drink copious fluids. We discussed that he may have issues with hematuria for prolonged period of time sailaja astudillo his chronic anticoagul ation therapy. Retention of urine 06670 4002 R33.9 Voiding trial today Malignant neoplasm of prostate 295734671 C61 We will refer to radiation oncology. Will arrange for total body bone scan [id number] ZORAIDA GARDNER MD [facility] [place] [address] [place] [address] 08/17/2024 10:55:10 08/30/2024 12:23:43 [id number] FADY LAMB MD [facility] [address] [place] [address] 09/03/2024 11:13:19 09/03/2024 16:46:21 Malignant neoplasm of prostate 191191663 C61 Follow-up 6 months with PSA [id number] ZORAIDA GARDNER MD [facility] [place] [address] [place] [address] 09/17/2024 09:29:57 09/21/2024 10:50:56 [id number] FADY LAMB MD [facility] [address] [place] [address] 02/28/2025 13:16:41 02/28/2025 14:52:53 History of malignant neoplasm of prostate 203478195 Z85.46 [id number] He received a 6-month Eligard injection today and we will see him back in 6 months with PSA [id number] ZORAIDA GARDNER MD [facility] [place] [address] [place] [address] 05/09/2025 13:28:35 06/09/2025 11:15:00 Health Concerns Section Related Observation LastModified by Organization Detai ls LastModified Time None Recorded Concern Status LastModified by Organization Details LastModified Time None Recorded Advance Directives Directive None Recorded Payers Insurance Date Sequence Insurance Name Policy Number Policy Carroll Covered Member ID Carroll Member ID Guarantor Name 02/25/2025 1 [place] Albert Mireles Lise [id number] Albert Chi Lise 06/08/2025 2 FOR LIFE () Albert Lezama [id number] Albert Mireles Lise Notes Date Note Type [...] his biopsy. FADY LAMB MD [address] [place], [address], [facility] 07/25/2024 14:39:29 08/09/2024 text/html Patient is [...] been to the emergency room at [facility] 3-4 different times for catheter irrigation. Currently is urine is grape juice colored and appears to be old blood. Unfortunately his biopsy has showed several cores positive for high-grade prostate cancer. He had Erica score of 9(5+4) in the area of interest as well as several cores positive on the right side of the prostate. He had [place] score of 8 on the left side. [...] the bladder on CT scan at [facility] over the weekend. He is here [...] was 1.2 earlier today FADY LAMB MD [address] [place] [address] [place], [address], [facility] 08/09/2024 21:13:11 09/03/2024 text/html Patient is here to start LHRH antagonist therapy in anticipation of external beam radiation therapy for prostate cancer. We discussed potential side effects and expectations. He received a 6-month. Lupron injection. FADY LAMB MD [address] [place] [address] [place], [address], [facility] 09/05/2024 22:40:50 02/28/2025 text/html Patient is [...] months. He now seeing Dr. Pappas in [place] as his primary care. FADY LAMB MD [facility] [place], [address], [facility] 02/28/2025 17:48:31
--- OUTSIDE RECORDS SUMMARY | 2025-07-13 23:31 | XMS_ITS | Clinical Summary ---
Author Organization [facility] Address [address] [place] [address] Care Team Providers Care Package Maker Name Role Phone Abelardo Pappas MD Primary Care Provider [phone]- [phone] Allergies Active Allergy Reactions Criticality Noted Date [...] (one) time each day. Active HYDROcodone-newton taminophen ([place]) 5-325 MG tablet TAKE ONE TABLET BY [...] Care Team Description 06/28/2025 Orders Only [facility] [address] [place] [address] Justen Jaimes MD Malignant neoplasm of prostate (CMS/HCC) 06/06/2025 2:30 PM EDT Infusion [facility] [place] [address] [place] [address] Osteopenia of multiple sites (Primary Dx) 06/06/2025 2:15 PM EDT Office Visit [facility] [address] [place] [address] Justen Jaimes MD Malignant neoplasm of prostate (CMS/HCC) (Primary Dx); Osteopenia of multiple sites 06/06/2025 Orders Only [facility] [address] [facility] [address] Justen Jaimes MD 06/06/2025 Orders Only [facility] [address] [place] [address] Justen Jaimes MD 06/06/2025 Travel 06/04/2025 Travel 06/01/2025 Orders Only [facility] [address] [place] [address] Justen Jaimes MD 05/11/2025 Abstract [facility] [address] [place] [address] Justen Jaimes MD from Last 3 Months [...] EDT Office Visit [facility] [address] [place] [address] 11/28/2025 3:00 PM EDT Office Visit [facility] [address] [place] [address] Justen Jaimes MD [address] [address] 11/28/2025 3:15 PM EDT Clinical Support [facility] [address] [place] [address] Health Maintenance Due Date Last Done Comments [facility]-Hepatitis C Screening 1945 [facility]-Medicare Annual Wellness (AWV) 1945 [facility]-Infant/Child/Adol SDOH Screenings 1945 [facility]-Obesity Intervention 1953 [facility]- SDOH Screenings 1965 [facility]-Adult SDOH Screenings 1965 [facility]-Pneumococcal Vaccine: 50 + Years (1 of 2 - PCV) 1966 [facility]-Zoster Vaccines (1 of 2) 1966 [facility]-DTaP,Tdap,and Td Vaccine s (1 - Tdap) 07/25/2010 07/24/2010 [id number] Vaccine (3 - Moderna risk series) 12/20/2020 [...] Priority Date/Time Associated Diagnosis Comments RBC MORPHOLOGY ([facility]) Routine 06/06/2025 1:50 PM EDT [...] Platelet Morphology NORMAL 06/06/2025 4:06 PM EDT [facility] External Ovalocytes SLIGHT(A) 06/06/2025 4:06 PM EDT [facility] External Stomatocyte SLIGHT(A) 06/06/2025 4:06 PM EDT [facility] External Target Cells SLIGHT(A) 06/06/2025 4:06 PM EDT [facility] External Tear Drop Cells SLIGHT(A) 06/06/2025 4:06 PM EDT [facility] 06/06/2025 1:50 PM EDT 06/06/2025 2:21 PM EDT Justen Jaimes MD LAB BLOOD ORDERABLES Flaca ledezma Result [facility] [address] [place] [id number], * (ABNORMAL) CBC and Differential (06/06/2025 1:50 PM EDT) External WBC 5.5 3.8 - 10.8 10*3/uL 06/06/2025 4:06 PM EDT [facility] External Red Blood Cell (RBC) 3.67(L) 4.20 - 5.80 10*6/uL 06/06/2025 4:06 PM EDT [facility] External Hemoglobin 10.3(L) 14.0 - 18.0 g/dL 06/06/2025 4:06 PM EDT [facility] External Hematocrit 32.8(L) 40.0 - 52.0 % 06/06/2025 4:06 PM EDT [facility] External MCV 89 80 - 100 fL 06/06/2025 4:06 PM EDT [facility] External MCH 28 26 - 35 pg 06/06/2025 4:06 PM EDT [facility] External MCHC 31(L) 32 - 36 g/dL 06/06/2025 4:06 PM EDT [facility] External RDW 23.0(H) 11.0 - 15.0 % 06/06/2025 4:06 PM EDT [facility] External Mean Platelet Volume 7.3 6.2 - 10.5 fL 06/06/2025 4:06 PM EDT [facility] External Platelet Count (Plt) 326 150 - 400 10*3/uL 06/06/2025 4:06 PM EDT [facility] External Neutrophil# 3.5 1.6 - 8.4 10*3/uL 06/06/2025 4:06 PM EDT [facility] External Lymphocyte# 0.7 0.4 - 5.1 10*3/uL 06/06/2025 4:06 PM EDT [facility] External Absolute Monocyte (Abs Runnels) 0.5 0.0 - 1.2 10*3/uL 06/06/2025 4:06 PM EDT [facility] External Eosinophils# 0.7 0.0 - 0.8 10*3/uL 06/06/2025 4:06 PM EDT [facility] External Baso# 0.1 0.0 - 0.3 10*3/uL 06/06/2025 4:06 PM EDT [facility] Comment:Smear reviewed to co nfirm cell morphology. External Neutrophils % 63.9 42.0 - 78.0 % 06/06/2025 4:06 PM EDT [facility] External Lymphocyte % 13.1 11.0 - 47.0 % 06/06/2025 4:06 PM EDT [facility] External Monocyte % 8.8 0.0 - 11.0 % 06/06/2025 4:06 PM EDT [facility] External Eosinophil% 13.2(H) 0.0 - 7.0 % 06/06/2025 4:06 PM EDT [facility] External Basophil % 1.0 0.0 - 3.0 % 06/06/2025 4:06 PM EDT [facility] External Nucleated RBC%-Auto 0.3 0.0 - 0.9 % 06/06/2025 4:06 PM EDT [facility] External Nucleated RBC Absolute 0.02 Not Estab. 10*3/uL 06/06/2025 4:06 PM EDT [facility] Blood Venous blood specimen / Unknown 06/06/2025 1:50 PM EDT 06/06/2025 2:21 PM EDT us Justen Jaimes MD LAB BLOOD ORDERABLES Flaca ledezma Result [facility] [address] [place] [address], * PSA, percent free, profile (06/06/2025 1:50 PM EDT) External Prostate Specific Antigen (PSA) 0.269 0.000 - 4.400 ng/mL 06/06/2025 3:01 PM EDT [facility] Comment: This test was performed using Estefania e801 Electrochemiluminescent method. The test method is based on WHO-standardized calibration. Values obtained from different assay methods or manufacturers may not be comparable. External Psa, Free 0.17 ng/mL 2024 3:01 PM EDT [facility] Comment: Test method is based on WHO-standardized calibration using the Estefania E801 analyzer. Free PSA results by different test procedures cannot be directly compared with one another. External Psa- % Free 63 % 05/17 3:01 PM EDT [facility] Comment: PSA ng/mL [...] MD LAB BLOOD ORDERABLES Flaca ledezma Result [facility] [address] [place] [address], * (ABNORMAL) Comprehensive Metabolic Panel, Plasma (06/06/2025 1:50 PM EDT) External Glucose 101(H) 74 - 100 mg/dL 06/06/2025 2:55 PM EDT [facility] External BUN 22(H) 6 - 20 mg/dL 06/06/2025 2:55 PM EDT [facility] External Creatinine Blood 0.97 0.70 - 1.20 mg/dL 06/06/2025 2:55 PM EDT [facility] External BUN/Creat Ratio 23(H) 10 - 20 (calc) 06/06/2025 2:55 PM EDT [facility] External Sodium 144 136 - 145 mmol/L 06/06/2025 2:55 PM EDT [facility] External Potassium 3.7 3.4 - 5.0 mmol/L 06/06/2025 2:55 PM EDT [facility] External Chloride 103 98 - 107 mmol/L 06/06/2025 2:55 PM EDT [facility] External Carbon Dioxide (CO2) 27 22 - 31 mmol/L 06/06/2025 2:55 PM T [facility] External Anion Gap (AG) 14 7 - 25 (calc) 06/06/2025 2:55 PM EDT [facility] External Calcium 10.0 8.6 - 10.2 mg/dL 06/06/2025 2:55 PM EDT [facility] External Total Protein 6.9 6.4 - 8.3 g/dL 06/06/2025 2:55 PM EDT [facility] External Albumin 4.4 3.5 - 5.2 g/dL 06/06/2025 2:55 PM EDT [facility] External Globulin 2.5 1.5 - 4.5 2:55 PM T [facility] External Albumin/Globulin Ratio 1.8 1.1 - 2.5 (calc) 06/06/2025 2:55 PM EDT [facility] External Bilirubin Total 0.3 0.1 - 1.0 mg/dL 06/06/2025 2:55 PM T [facility] Comment:NOTE: New reference range. External Alkaline Phosphatase 85 40 - 129 U/L 06/06/2025 2:55 PM EDT [facility] External AST (SGOT) 25 0 - 40 U/L 06/06/2025 2:55 PM EDT [facility] External ALT (SGPT) 32 0 - 41 U/L 06/06/2025 2:55 PM EDT [facility] External Estimated GFR 80 >=60 06/06/2025 2:55 PM EDT [facility] Comment: NOTE New calculation for GFR (CKD-EPI 2020) is formulated without race adjustment factors at the recommendation of the National Kidney Foundation and [place] [employer]ph[employer]. This calculation has not been validated in women. For pediatric patients refer to https://www.kidney.org/professionals/KDOQI/gfr_calculatorPed Blood Venous blood specimen / Unknown 06/06/2025 1:50 PM EDT 06/06/2025 2:21 PM EDT Justen Jaimes MD LAB BLOOD ORDERABLES Flaca l Result [facility] [address] [place] [address], [place] [phone] * COMPLETE METABOLIC PROFILE (CMP) (06/04/2025 2:58 [...] Result from Last 3 [place] [address] [facility] Care Teams Package Maker Relationship Specialty Start Date End Date Abelardo Pappas MD [address] [place] [address] PCP - General 06/04/25
--- OUTSIDE RECORDS SUMMARY | 2025-07-13 23:31 | XMS_ITS | Clinical Summary ---
Author Organization [facility] ([place] [place] [place], [place]) Address [address] [place] [address] Care Team Providers Care Agricultural Engineering Technician Name Role Phone Tristan Billings DO Primary Care Provider [phone] Allergies No known active allergies Medications glipiZIDE [...] were you homeless or living in a chcf (including now)? No 08/14/2024 Utilities Answer Date [...] living situation today? I have a [facility] place to live 08/10/2024 Think [...] speak a language other than [place] at [facility]? No 08/10/2024 Do you want help [...] Advance Directives For more information, please contact: [phone] Documents on File Type Date Recorded Patient Application Assistant Expl anation Advance Directives and Living Will 08/10/2024 * Full Code (Latest Code Status on File) Date Activated Date Inactivated Comments 08/10/2024 2:42 PM 08/15/2024 4:37 PM Care Teams Agricultural Engineering Technician Relationship Specialty Start Date End Date Tristan Billings DO PCP - General Internal Medicine 08/10/24
--- OUTSIDE RECORDS SUMMARY | 2025-07-13 23:31 | XMS_ITS | Data Portability ---
Author Organization [place] - [facility] [employer] [facility] Address [address] [place] [address] Care Team Providers Care Jeep Mechanic Name Role Phone FRED MURILLO Primary Care [...] Address Organization Details Recorded Time Diabetes mellitus 83769557 Active 2022 Faraz [place] null, [place] - [facility] 3 13:55:39 Essential hypertension 93337304 Active 2022 Faarz [place] null, [place] - [facility] 3 13:55:49 Anticoagulan t therapy Active 2022 MANDY Hart null, [place] - [facility] 3 13:26:20 Osteoarthrit is 368727464 Active 2022 MANDY Hart null, [place] - [facility] 3 13:26:33 Erectile dysfunction 789120058 Active 2022 MANDY Hart null, [place] - [facility] 3 13:26:40 Benign prostatic hyperplasia 878532304 Active 2022 MANDY Hart null, [place] - [facility] 3 13:26:49 Hyperlipidem ia 20977909 Active 2022 MANDY Hart null, [facility] 3 13:26:55 Problem Notes None recorded. [...] Quit in 24 years ago Chani Drake [facility], [place] - [facility] 11/16/2021 15:33:17 Are You Blind [...] Functional Status Question Answer Note LastModified by [employer] ion Details LastModified Time Do you use [...] Mental Status Question Answer Note LastModified by [email or web address] Details LastModified Time Do you feel stressed (tense, restless, nervous, or anxious, or unable to sleep at night)? [id number] Information not available 11/16/2021 Do you have [...] Main [address] [place] [address] 11/16/2021 15:19:12 12/25/2021 23:31:53 Essential hypertension 72155540 I10 Uncontroll ed type 2 diabetes mellitus 310161724 E11.65 4710 Srikanth Edwards MD [facility] [address] [place] [address] 11/26/2021 14:38:42 01/08/2022 12:37:48 Diabetes mellitus 05835727 E11.9 Essential hypertension 22332959 I10 5926 Srikanth Edwards MD [facility] Main [address] [place] [address] 12/07/2021 15:42:51 01/03/2022 21:27:02 Diabetes mellitus 44908760 E11.9 Essential hypertension 81301073 I10 6729 Srikanth Edwards MD [place] [facility] [place] [address] [place] [address] 12/14/2021 16:04:16 01/29/2022 03:54:52 Diabetes mellitus 60227935 E11.9 Essential hypertension 18824081 I10 7470 Srikanth Edwards [place] [address] [place] [address] 12/21/2021 16:01:40 01/29/2022 03:54:53 Diabetes mellitus 31730861 E11.9 Essential hypertension 48289088 I10 9186 Srikanth Edwards MD [place] [address] [place] [address] 01/04/2022 16:02:31 01/29/2022 03:54:56 Diabetes mellitus 74815791 E11.9 Essential hypertension 32702482 I10 90723 Srikanth Edwards MD [place] [address] [place] [address] 01/11/2022 16:17:47 01/28/2022 16:14:32 Diabetes mellitus 60815611 E11.9 Essential hypertension 75803010 I10 19630 Srikanth Edwards MD [place] [address] [place] [address] 01/18/2022 16:12:09 02/14/2022 15:53:17 Diabetes mellitus 27789696 E11.9 Essential hypertension 76465671 I10 12938 Srikanth Edwards [place] [address] [place] [address] 01/25/2022 16:12:01 01/25/2022 22:10:14 Diabetes mellitus 76665540 E11.9 Essential hypertension 65187197 I10 09809 Srikanth Edwards [place] [address] [place] [address] 02/01/2022 16:08:44 02/04/2022 10:47:52 Diabetes mellitus 39528864 E11.9 Essential hypertension 46686164 I10 61598 Srikanth Edwards MD [place] [address] [place] [address] 02/08/2022 16:21:37 03/24/2022 13:15:23 Diabetes mellitus 10787879 E11.9 Essential hypertension 78556449 I10 10292 Srikanth Edwards MD [place] [address] [place] [address] 02/15/2022 16:03:42 02/19/2022 14:34:17 Diabetes mellitus 42115417 E11.9 Essential hypertension 47509329 I10 51439 Srikanth Edwards MD [place] [address] [place] [address] 02/22/2022 16:04:55 03/17/2022 23:46:42 Diabetes mellitus 83399596 E11.9 Essential hypertension 22720601 I10 39007 MD ANIBAL Teixeira [address] [place] [address] 03/01/2022 16:07:59 03/17/2022 21:45:58 Diabetes mellitus 45631912 E11.9 Essential hypertension 55098143 I10 88988 MD ANIBAL Teixeira [address] 03/08/2022 16:05:33 04/05/2022 03:53:43 Diabetes mellitus 28854564 E11.9 Essential hypertension 42736521 I10 74964 MD ANIBAL Teixeira [address] [place] [address] 03/15/2022 16:11:27 04/26/2022 03:53:33 Diabetes mellitus 72713601 E11.9 Essential hypertension 35443733 I10 35143 MD ANIBAL Teixeira [address] [place] [address] 04/05/2022 16:21:27 04/24/2022 14:56:34 Diabetes mellitus 24509519 E11.9 Essential hypertension 69152067 I10 63672 MD ANIBAL Teixeira [address] [place] [address] 04/19/2022 16:15:15 05/30/2022 03:54:38 Diabetes mellitus 35418002 E11.9 Essential hypertension 20570041 I10 56319 MD ANIBAL Teixeira [address] [place] [address] 05/03/2022 16:55:42 05/29/2022 15:30:59 Diabetes mellitus 88395017 E11.9 Essential hypertension 95926553 I10 68042 Rajendra Hart, EMBROIDERY WORKER-TRANSFER STATION OPERATOR [place] [address] [place] [address] 05/17/2022 16:05:31 06/27/2022 03:53:23 Diabetes mellitus 12929507 E11.9 Essential hypertension 76511775 I10 52290 Rajendra Hart EMBROIDERY WORKER-TRANSFER STATION OPERATOR [facility] [address] [place] [address] 05/31/2022 16:14:33 06/27/2022 03:53:27 Diabetes mellitus 14755730 E11.9 Essential hypertension 99209656 I10 78329 Rajendra Hart EMBROIDERY WORKER-TRANSFER STATION OPERATOR [facility] [address] [place] [address] 06/14/2022 16:18:22 06/26/2022 10:53:41 Diabetes mellitus 45177729 E11.9 Essential hypertension 52597624 I10 89553 Rajendra Hart EMBROIDERY WORKER-TRANSFER STATION OPERATOR [facility] [address] [place] [address] 06/28/2022 16:33:56 08/01/2022 03:52:38 Diabetes mellitus 26321523 E11.9 Essential hypertension 85284262 I10 66183 Rajendra Hart EMBROIDERY WORKER-TRANSFER STATION OPERATOR [facility] [address] [place] [address] 07/12/2022 16:20:00 07/31/2022 14:32:30 Diabetes mellitus 85134628 E11.9 Essential hypertension 03280886 I10 49860 Rajendra Hart EMBROIDERY WORKER-TRANSFER STATION OPERATOR [facility] [address] [place] [address] 07/26/2022 16:20:55 11/19/2022 10:48:00 Diabetes mellitus 03117538 E11.9 Essential hypertension 78105834 I10 28372 Rajendra Hart EMBROIDERY WORKER-TRANSFER STATION OPERATOR [facility] [address] [place] [address] 08/16/2022 16:30:19 08/19/2022 12:09:55 Diabetes mellitus 69131316 E11.9 Essential hypertension 50235951 I10 09833 Rajendra Hart EMBROIDERY WORKER-TRANSFER STATION OPERATOR [facility] [address] [place] [address] 08/30/2022 16:12:03 11/29/2022 13:02:35 Diabetes mellitus 26203479 E11.9 Essential hypertension 63131406 I10 93821 SUSAN Welsh [place] [address] [place] [address] 09/13/2022 16:53:17 12/30/2022 00:26:22 Diabetes mellitus 54758752 E11.9 Essential hypertension 48268424 I10 36969 SUSAN Welsh [place] [address] [place] [address] 09/27/2022 16:19:22 12/30/2022 18:51:10 Diabetes mellitus 42985604 E11.9 Essential hypertension 28062070 I10 30691 SUSAN Welsh [facility] [address] [place] [address] 10/11/2022 16:17:43 01/18/2023 14:30:53 Diabetes mellitus 09600687 E11.9 Essential hypertension 40344411 I10 92144 SUSAN Welsh_Nursin g Schedule [address] [place] [address] 10/25/2022 16:34:28 01/29/2023 11:50:46 Diabetes mellitus 84717803 E11.9 Patient's glucose readings are trending higher in the mornings, but normal after meals. Fasting glucose this morning was 149. Pt states this is due to veering away from diabetic diet due to 's medical issues but will try to do better. Encouraged pt to continue checking blood glucose daily and choose diabetic friendly foods. Essential hypertension 93308449 I10 Patient's blood pressure readings are trending [...] as prescribed , and exercise as tolerated. 21089 SUSAN Welsh_Nursin g Schedule [address] [place] [address] 11/08/2022 17:39:15 02/15/2023 21:45:57 Diabetes mellitus 33297366 E11.9 Essential hypertension 84248914 I10 38754 Rajendra Hart APRN-TRANSFER STATION OPERATOR [facility] Schedule [address] [place] [address] 11/22/2022 16:15:15 11/22/2022 16:41:00 Diabetes mellitus 08943220 E11.9 Essential hypertension 84659992 I10 01371 Rajendra Hart APRN-TRANSFER STATION OPERATOR [facility] Schedule [address] [place] [address] 12/13/2022 16:16:33 12/13/2022 16:24:25 Diabetes mellitus 50337232 E11.9 Essential hypertension 65204830 I10 [id number] Rajendra Hart APRN-TRANSFER STATION OPERATOR [facility] Schedule [address] [place] [address] 01/17/2023 16:46:22 01/17/2023 16:52:09 Diabetes mellitus 07730536 E11.9 Essential hypertension 61194555 I10 [id number] Rajendra Hart APRN-TRANSFER STATION OPERATOR [facility] Schedule [address] [place] [address] 01/30/2023 15:12:10 01/30/2023 16:46:05 Diabetes mellitus 02693053 E11.9 Essential hypertension 39163779 I10 [id number] Rajendra Hart APRN-TRANSFER STATION OPERATOR [facility] Schedule [address] [place] [address] 02/07/2023 16:02:31 02/07/2023 16:07:35 Diabetes mellitus 91069913 E11.9 Essential hypertension 36265746 I10 507155 Rajendra Hart APRN-TRANSFER STATION OPERATOR [facility] Schedule [address] [place] [address] 02/21/2023 16:28:58 02/21/2023 16:34:55 Diabetes mellitus 34569710 E11.9 Essential hypertension 25240596 I10 331518 TODD CHOWDHURY NP [facility] Schedule [address] [place] [address] 03/07/2023 15:48:39 03/07/2023 15:53:49 Diabetes mellitus 99752196 E11.9 Essential hypertension 58983683 I10 [id number] TODD CHOWDHURY NP [facility] Schedule [address] [place] [address] 03/21/2023 15:40:28 03/21/2023 15:50:36 Diabetes mellitus 72442891 E11.9 Essential hypertension 51095009 I10 352456 TODD CHOWDHURY NP [facility] Schedule [address] [place] [address] 04/04/2023 15:45:51 04/04/2023 15:54:30 Diabetes mellitus 31607453 E11.9 Essential hypertension 20372372 I10 052673 TODD CHOWDHURY NP [facility] Schedule [address] [place] [address] 04/18/2023 15:33:35 04/18/2023 15:43:13 Diabetes mellitus 18376650 E11.9 Essential hypertension 36528269 I10 203483 TODD CHOWDHURY NP [facility] Schedule [address] [place] [address] 05/02/2023 15:42:42 05/02/2023 15:47:40 Diabetes mellitus 46668669 E11.9 Essential hypertension 95200975 I10 100996 TODD CHOWDHURY NP [facility] Schedule [address] [place] [address] 05/23/2023 15:43:29 05/23/2023 15:50:23 Diabetes mellitus 36805767 E11.9 Essential hypertension 19189533 I10 005821 TODD CHOWDHURY NP [facility] Schedule [address] [place] [address] 06/06/2023 15:28:59 06/06/2023 15:39:02 Diabetes mellitus 83018637 E11.9 Essential hypertension 67050541 I10 644084 TODD CHOWDHURY NP [facility] Schedule [address] [place] [address] 07/18/2023 17:43:20 07/21/2023 09:45:32 Diabetes mellitus 80795660 E11.9 Essential hypertension 83050477 I10 304762 TODD CHOWDHURY NP [facility] Schedule [address] [place] [address] 08/01/2023 17:36:40 08/04/2023 10:06:54 Diabetes mellitus 56143751 E11.9 Essential hypertension 83009386 I10 739714 TODD CHOWDHURY NP [facility] Schedule [address] [place] [address] 08/22/2023 16:42:04 08/27/2023 10:54:09 Diabetes mellitus 92003369 E11.9 Essential hypertension 27888513 I10 519346 Annalise Taylor NP [facility] Schedule [address] [place] [address] 09/05/2023 17:28:17 09/05/2023 17:49:18 Diabetes mellitus 55136212 E11.9 Essential hypertension 91566517 I10 374375 Annalise Taylor NP [facility] Schedule [address] [place] [address] 10/31/2023 15:53:43 11/03/2023 15:44:35 Diabetes mellitus 24971618 E11.9 Essential hypertension 79274900 I10 613004 Annalise Taylor NP [facility] Schedule [address] [place] [address] 11/28/2023 17:25:32 11/28/2023 17:37:46 Essential hypertension 13031677 I10 Diabetes mellitus 036909 09 E11.9 485602 Annalise Taylor NP [facility] Schedule [address] [place] [address] 12/03/2023 17:39:49 12/03/2023 17:50:36 Essential hypertension 60654463 I10 Diabetes mellitus 720066 09 E11.9 712686 Annalise Taylor NP [facility] Schedule [address] [place] [address] 12/17/2023 16:31:39 12/17/2023 16:39:03 Essential hypertension 97160628 I10 Diabetes mellitus 773894 E11.9 761062 Annalise Taylor NP [facility] Schedule [address] [place] [address] 12/31/2023 16:49:01 12/31/2023 16:56:48 Essential hypertension 56831660 I10 Diabetes mellitus 450033 E11.9 085977 Annalise Taylor NP [facility] Schedule [address] [place] [address] 01/14/2024 17:14:28 01/14/2024 17:25:19 Essential hypertension 93539178 I10 Diabetes mellitus 762110 E11.9 342107 Annalise Taylor NP [facility] Schedule [address] [place] [address] 01/28/2024 17:09:51 01/28/2024 17:19:17 Essential hypertension 18537132 I10 Diabetes mellitus 538558 E11.9 369055 KELLY Carreon_Nursin g Schedule [address] [place] [address] 02/25/2024 16:39:38 02/25/2024 16:49:57 Essential hypertension 34623024 I10 Diabetes mellitus 815816 E11.9 750938 Annalise Taylor NP [facility] er Schedule [address] [place] [address] 02/26/2024 16:38:32 02/26/2024 16:48:12 Diabetes mellitus 75502575 E11.9 -Continue the following medication s as [...] no fluid restrictio n? YES. Essential hypertension 29269146 I10 -Continue the following medication s as [...] restrictio n? YES.Watchi ng salt intake? YES. 907171 KELLY Carreon_Nursin g Schedule [address] [place] [address] 03/10/2024 17:35:11 03/11/2024 09:38:18 Essential hypertension 68580197 I10 Diabetes mellitus 214430 E11.9 900582 KELLY Carreon_Nursin g Schedule [address] [place] [address] 03/24/2024 16:31:57 03/24/2024 16:49:23 Essential hypertension 53231057 I10 Diabetes mellitus 075738 E11.9 654269 KELLY Carreon_Nursin g Schedule [address] [place] [address] 04/07/2024 16:38:20 04/07/2024 16:53:36 Essential hypertension 91492807 I10 Diabetes mellitus 607223 E11.9 941718 KELLY Carreon_Nursin g Schedule [address] [place] [address] 04/23/2024 15:44:06 04/23/2024 15:55:49 Essential hypertension 48933724 I10 Diabetes mellitus 398078 E11.9 890973 KELLY Carreon_Nursin g Schedule [address] [place] [address] 05/19/2024 16:41:13 05/19/2024 16:57:22 Essential hypertension 28849522 I10 Diabetes mellitus 950263 E11.9 017945 KELLY Carreon_Nursin g Schedule [address] [place] [address] 06/02/2024 16:39:18 06/02/2024 16:58:29 Essential hypertension 01018443 I10 Diabetes mellitus 951661 09 E11.9 042334 Annalise Taylor, BED PLACEMENT COORDINATOR NS[facility]Nursin g Schedule [address] [place] [address] 06/16/2024 15:57:59 06/16/2024 16:15:11 Essential hypertension 33196669 I10 Diabetes mellitus 379126 E11.9 357816 Annalise Taylor, BED PLACEMENT COORDINATOR NS[facility]Nursin g Schedule [address] [place] [address] 06/30/2024 16:33:01 06/30/2024 16:45:21 Essential hypertension 89178237 I10 Diabetes mellitus 125303 E11.9 919237 Annalise Taylor, BED PLACEMENT COORDINATOR NS[facility]Nursin g Schedule [address] [place] [address] 07/14/2024 16:18:27 07/14/2024 16:38:25 Diabetes mellitus 05585072 E11.9 Essential hypertension 53198717 I10 899748 Annalise Taylor, KELLY NS[facility]Nursin g Schedule [address] [place] [address] 07/21/2024 17:39:48 07/21/2024 18:00:12 Essential hypertension 52777312 I10 Diabetes mellitus 368499 E11.9 543761 Annalise Taylor NP [facility]Nursin g Schedule [address] [place] [address] 07/28/2024 17:47:57 07/28/2024 18:03:49 Diabetes mellitus 00901907 E11.9 Diabetes mellitus Essential hypertension 84969974 I10 Essential hypertensi on 215184 Annailse Taylor NP [facility]Nursin g Schedule [address] [place] [address] 08/11/2024 17:24:32 08/11/2024 17:28:35 Diabetes mellitus 35630167 E11.9 Diabetes mellitus Essential hypertension 07447286 I10 Essential hypertensi on 415579 Annalise Taylor NP [facility]urs[facility] Schedule [address] [place] [address] 08/18/2024 17:45:40 08/18/2024 18:00:35 Diabetes mellitus 58420289 E11.9 Diabetes mellitus Essential hypertension 33364837 I10 Essential hypertensi on 308086 Annalise Taylor, BED PLACEMENT COORDINATOR NS[facility]Nursin g Schedule [address] [place] [address] 08/25/2024 17:32:06 08/25/2024 17:45:47 Diabetes mellitus 29412121 E11.9 Diabetes mellitus Essential hypertension 73919997 I10 Essential hypertensi on 604447 Annalise Taylor, BED PLACEMENT COORDINATOR [facility]ursin [facility] Schedule [address] [place] [address] 09/01/2024 17:04:25 09/01/2024 17:12:44 Diabetes mellitus 23111908 E11.9 Diabetes mellitus Essential hypertension 78161782 I10 Essential hypertensi on 435287 Annalise Taylor, KELLY NS[facility]Nursin g Schedule [address] [place] [address] 09/09/2024 12:13:36 09/09/2024 12:16:47 Diabetes mellitus 07530876 E11.9 Diabetes mellitus Essential hypertension 00227916 I10 Essential hypertensi on 362189 Annalise Taylor, KELLY NS[facility]Nursin g Schedule [address] [place] [address] 09/22/2024 18:18:09 09/23/2024 00:42:25 Diabetes mellitus 49998935 E11.9 Diabetes mellitus Essential hypertension 17804760 I10 Essential hypertensi on 987863 Annalise Taylor, KELLY NS[facility]Nursin g Schedule [address] [place] [address] 09/29/2024 17:43:59 09/29/2024 17:52:53 Diabetes mellitus 25281616 E11.9 Diabetes mellitus Essential hypertension 58871483 I10 Essential hypertensi on 515566 Annalise Taylor, BED PLACEMENT COORDINATOR [facility]Prov[facility] er Schedule [address] [place] [address] 10/05/2024 16:19:13 10/05/2024 16:30:38 Diabetes mellitus 83025742 E11.9 Diabetes mellitus Essential hypertension 39585077 I10 Hypertensi on Ongoing Care Plan - [...] while enrolled- As needed as concerns arise 460977 KELLY Carreon_Nursin g Schedule [address] [place] [address] 10/06/2024 16:48:08 10/06/2024 16:49:21 Diabetes mellitus 78664560 E11.9 Diabetes mellitus Essential hypertension 22963909 I10 Essential hypertensi on 256683 KELLY Carreon_Nursin g Schedule [address] [place] [address] 10/06/2024 17:45:23 10/06/2024 18:02:20 Diabetes mellitus 33908792 E11.9 Diabetes mellitus Essential hypertension 78327728 I10 Essential hypertensi on 662674 KELLY Carreon_Nursin g Schedule [address] [place] [address] 10/13/2024 16:35:33 10/13/2024 17:08:55 Diabetes mellitus 71749217 E11.9 Diabetes mellitus Essential hypertension 90713600 I10 Essential hypertensi on 878873 KELLY Carreon_Nursin g Schedule [address] [place] [address] 10/20/2024 16:40:00 10/20/2024 17:00:03 Diabetes mellitus 19099905 E11.9 Diabetes mellitus Essential hypertension 23163811 I10 Essential hypertensi on 108449 Annalise Taylor, BED PLACEMENT COORDINATOR NS[facility]Nursin g Schedule [address] [place] [address] 10/27/2024 17:15:42 10/27/2024 17:26:09 Diabetes mellitus 56679536 E11.9 Diabetes mellitus Essential hypertension 96278311 I10 Essential hypertensi on 687614 Annalise Taylor, BED PLACEMENT COORDINATOR NS[facility]Nursin g Schedule [address] [place] [address] 11/03/2024 16:31:49 11/03/2024 16:47:04 Diabetes mellitus 60436829 E11.9 Diabetes mellitus Essential hypertension 08255106 I10 Essential hypertensi on 961107 Annalise Taylor, BED PLACEMENT COORDINATOR NS[facility]Nursin g Schedule [address] [place] [address] 11/10/2024 16:22:43 11/10/2024 16:31:06 Diabetes mellitus 06054694 E11.9 Diabetes mellitus Essential hypertension 97476058 I10 Essential hypertensi on 987536 Annalise Taylor, BED PLACEMENT COORDINATOR NS[facility]Nursin g Schedule [address] [place] [address] 11/11/2024 10:18:10 11/11/2024 10:24:38 Diabetes mellitus 56922748 E11.9 Diabetes mellitus Essential hypertension 90205111 I10 Essential hypertensi on 228601 Annalise Taylor, BED PLACEMENT COORDINATOR NS[facility]Nursin g Schedule [address] [place] [address] 11/17/2024 16:20:28 11/17/2024 16:41:39 Diabetes mellitus 22795248 E11.9 Diabetes mellitus Essential hypertension 78107890 I10 Essential hypertensi on 439532 Annalise Taylor, BED PLACEMENT COORDINATOR NS[facility]Nursin g Schedule [address] [place] [address] 11/24/2024 16:44:33 11/24/2024 16:55:25 Diabetes mellitus 72854820 E11.9 Diabetes mellitus Essential hypertension 68155622 I10 Essential hypertensi on 381340 Annalise Taylor, BED PLACEMENT COORDINATOR NS[facility]Nursin g Schedule [address] [place] [address] 11/25/2024 08:40:30 11/25/2024 08:42:30 Diabetes mellitus 52906157 E11.9 Diabetes mellitus Essential hypertension 30458487 I10 Essential hypertensi on 644796 Annalise Taylor, KELLY NS[facility]Nursin g Schedule [address] [place] [address] 12/01/2024 16:47:39 12/01/2024 16:58:01 Diabetes mellitus 61416085 E11.9 Diabetes mellitus Essential hypertension 54364008 I10 Essential hypertensi on 543256 Annalise Taylor NP [facility]Nursin g Schedule [address] [place] [address] 12/08/2024 16:18:09 12/08/2024 16:35:01 Diabetes mellitus 66587974 E11.9 Diabetes mellitus Essential hypertension 21619941 I10 Essential hypertensi on Goals Section Goal [...] restricting artificial sweetener use NoChange active 2023 [place] Information not available 01/28/2024 21:18:56 Health Concerns Section Related Observation LastModified by Organization Detai ls LastModified Time None Recorded Concern Status LastModified by Organization Details LastModified Time None Recorded Advance Directives Directive None Recorded Payers Insurance Date Sequence Insurance Name Policy Number Policy Carroll Covered Member ID Carroll Member ID Guarantor Name 11/17/2024 [place] Martin Lezama [id number] Martin Lezama 11/17/2024 1 [place] Martin Lezama [id number] Martin Lezama 11/17/2024 [place] Martin Lezama [id number] Martin Lezama 01/19/2025 2 FOR LIFE ( - MEDICARE SUPPLEMENT) Martin Lezama [id number] Martin Lezama
--- OUTSIDE RECORDS SUMMARY | 2025-07-13 23:31 | XMS_ITS | Referral Summary ---
Author Organization [employer] ([place], [place], [place], [place]) Address [address] [place] [address] Care Team Providers Care Cleat Feeder Name Role Phone Tristan Billings DO Primary Care Provider [phone] Allergies No known active allergies Medications glipiZIDE [...] any time in the past 12 m [facility], were you homeless or living in a senior care (including now)? No 08/14/2024 Utilities Answer Date [...] Do you speak a language other than [place] [facility]? No 08/10/2024 Do you want [...] Advance Directives For more information, please contact: [phone] Documents on File Type Date Recorded Patient Wind [employer] And Planning Expl anation Advance Directives and Living Will 08/10/2024 * Full Code (Latest Code Status on File) Date Activated Date Inactivated Comments 08/10/2024 2:42 PM 08/15/2024 4:37 PM Care Teams Cleat Feeder Relationship Specialty Start Date End Date Tristan Billings DO PCP - General Internal Medicine 08/10/24
--- OUTSIDE RECORDS SUMMARY | 2025-07-13 23:31 | XMS_ITS | Data Portability ---
Author Organization [facility] [place] Address [address] [facility] [address] [place] [address] Care Team Providers Care Fisheries Specialist Name Role Phone CHACHO FADY Referring Provider ZORAIDA GARDNER Radiation Oncologist 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 He has constipation associated with Lehigh use. Plan: 1. I advised Mr. Lezama [...] T, skull base to mid-t high scan [address] [place] [address] Patien t Name: TRISHA Rizo Chi Tsang [...] was GFR =50 6.2 mCi Ga-68 PSMA ([facility] 12303- [id number] ) was inject ed IV. After [...] 350 (1 x 50 ml bottle of [facility] 0407-1 [id number] ) admini stered [...] thy. There is adenop athy in the education intern al iliac region and along the [...] Escalona MD on 2023 12:24 PM [email or web address] [facility] Radiology [facility] [address] [place], [address], 09/01/2024 12:51:05 09/27/19 25 09/27/2024 MRI, pelvi s, w/o contr ast [address] [place] [address] Patien t Name: TRISHA Mireles OVERMA N [...] 43 throug h 64 of series # [id number]. SPACE- OAR HYDROG EL: No gel is [...] Escalona MD on 025 4:20 PM [email or web address] [facility] Radiology [address], [address], 09/27/2024 19:31:11 Result Notes Documentation Provider Name and Address Organization Details Recorded Time Pet-ct, Skull Base To Mid-thigh Scan : [address] [address] Patient Name: MARTIN LEZAMA Patient : 1945 [...] was GFR =50 6.2 mCi Ga-68 PSMA ([facility] 54713-853-15) was injected IV. After an uptake time of 76 minutes, vertex through midthigh PET imaging was performed. This was followed by a low dose attenuation correction/anatomic localization CT from vertex through the midthigh levels. Urinary tract was opacified with an injection of 50 mL Omnipaque 350 (1 x 50 ml bottle of [facility] [id number]) administered [address] scan. [...] Tristan Escalona MD IDA GARDNER MD [address] [facility],[address], [place], [address] 09/01/2024 12:51:05 Mri, Pelvis, W/o Contrast : [facility] [address] [place] [address] Patient Name: MARTIN LEZAMA Patient : 1945 [...] MD IDA GARDNER MD [address] [facility], [place], [address], [facility] 09/27/2024 19:31:11 Procedures Surgical History Date Name Laterality Status Provider Name and Address Organization Details Recorded Time 09/17/19 25 Prostate marker placement with SpaceOAR completed ZORAIDA GARDNER MD [address] [facility], [place], [address], [facility] 09/20/2024 21:49:03 10/16/18 98 mechanical prosthetic aortic valve replacement [facility] 08/17/2024 12:00:45 09/15/18 98 procedure on knee completed Roselyn [facility] 08/17/2024 12:01:01 09/15/18 80 [facility] 08/17/2024 12:01:12 Imaging Results None recorded. [...] Updated DateTime 09/17/2024 187.96 cm Roselyn Rivera [facility] 09/17/2024 10:38:39 Date Recorded Body height Body mass index (BMI) Body weight Body temperature Heart rate Oxygen saturation Oxygen saturation in Arterial blood by Pulse oximetry Systolic And Diastolic Provider Name and Address Organization Details Last Updated DateTime 187.96 cm 25.4 kg/m2 95617.2 9 g 97.7 [degF] 63 /min 92 % 92 % 130/62 mm[Hg] Roselyn Rivera [facility] 5 13:37:37 Date Recorded Body height Body mass index (BMI) Body weight Body temperature Heart rate Oxygen saturation Oxygen saturation in Arterial blood by Pulse oximetry Systolic And Diastolic Provider Name and Address Organization Details Last Updated DateTime 4 187.96 cm 24.9 kg/m2 08762.9 2 g 97.2 [degF] 66 /min 94 % 94 % 102/54 mm[Hg] Roselyn Rivera [facility] 4 11:31:12 Social History Question Answer Notes LastModified by Organizat ion Details LastModified Time Tobacco Smoking Status Former Smoker Roselyn Rivera [facility] 08/17/2024 11:34:36 What Is Your Level Of Caffeine Consumption? Occasional Information not available 08/17/2024 When Did You Quit Smoking? 18+yearssincela stsacrlettette Information not available 08/17/2024 What Is Your [...] ICD10 Code Diagnosis IMO Codes Diagnosis Note [id number] FADY LAMB MD [facility] [address] [place] [address] 05/19/2024 13:25:43 05/21/2024 06:07:21 [id number] FADY LAMB MD [facility] [address] [place] [id number] 07/23/2024 11:25:17 07/23/2024 16:41:36 [id number] FADY LAMB MD SURGERY SCHEDULE [address] [place] [address] 08/04/2024 08:27:28 08/04/2024 08:27:53 [id number] FADY LAMB MD [facility] [address] [place] [address] 08/09/2024 14:02:05 08/10/2024 04:08:34 [id number] ZORAIDA GARDNER MD [facility] [place] [address] [place] [address] 08/17/2024 10:55:10 08/30/2024 12:23:43 Malignant neoplasm of prostate [id number] [id number] FADY LAMB MD [facility] [address] [place] [address] 09/03/2024 11:13:19 09/03/2024 16:46:21 [id number] ZORAIDA GARDNER MD [facility] [place] [address] [place] [address] 09/17/2024 09:29:57 09/21/2024 10:50:56 Malignant neoplasm of prostate [id number] C61 [id number] FADY LAMB MD [facility] [address] [place] [address] 02/28/2025 13:16:41 02/28/2025 14:52:53 [id number] ZORAIDA GARDNER MD [facility] [place] [address] [place] [address] 05/09/2025 13:28:35 06/09/2025 11:15:00 Malignant neoplasm of prostate [id number] C61 [id number] 11/28/2025 APPT Health Concerns Section Related Observation LastModified by Organization Detai ls LastModified Time None Recorded Concern Status LastModified by Organization Details LastModified Time None Recorded Advance Directives Directive None Recorded Payers Insurance Date Sequence Insurance Name Policy Number Policy Carroll Covered Member ID Carroll Member ID Guarantor Name 02/25/2025 1 [place] Martin Lezama [id number] Martin Lezama 06/08/2025 2 FOR LIFE () Martin Lezama [id number] Martin Lezama Notes Date Note Type Note [...] of the prostate by Dr. Lamb found [place] 5+4 = 9 adenocarcinoma involving between 5% and 100% of all 6 cores taken from the right side with 90% grade 4, equals [place] score 4+5=9 adenocarcinoma involving 95% - 100% [...] on 08/09/2024. Mr. Lezama was admitted to [facility] from 08/10/2024 through 08/15/2024 for urinary retention [...] was switched recently to methotrexate by his rubber chemist. His DIVINA score is 25 out of 25 with the use of Viagra. He has regular bowel movements without melena, hematochezia, tenesmus, or frequent diarrhea. 1 benign polyp was resected at his most recent colonoscopy in 2021. He smoked 1 pack of cigarettes daily for 20 years but quit in 1997. ZORAIDA GARDNER MD [address] [facility],[address] [facility], [place], [address], [facility] 08/29/2024 11:53:22 05/09/2025 text/html ROS as noted [...] but recurred on 05/05/2025. He takes 1-2 Lehigh 5/325 mg tablets daily, Robaxin 750 mg [...] denies having hot flashes. ZORAIDA GARDNER MD [address], [place], [address], [facility] 06/08/2025 20:29:30
--- OUTSIDE RECORDS SUMMARY | 2025-07-13 23:31 | XMS_ITS | Clinical Summary ---
Author Organization [facility] Address [address] [place] [address] Care Team Providers Care Solderer Torch Name Role Phone Provider, No Known Primary [...] - 04/29/2025 3:55 PM EDT Hospital Encounter [address] [place] [address] Serafin Villalpando MD Frandina, John L, MD [...] 27(H) <22 ng/L 04/29/2025 1:19 PM EDT [facility] Blood Venipuncture / Unknown 04/29/2025 12:34 PM EDT 04/29/2025 12:57 PM EDT Narrative [facility] - 04/29/2025 1:19 PM EDT [...] ORDERABLES Final Re sult Performing Organization Address [facility] Co de Phone Number [facility]
[address] [place] [address], * (ABNORMAL) POC Glucose Once (04/29/2025 11:16 AM EDT) Only the most recent of3 resultswithin the time period is included. Glucose 185(H) 70 - 130 mg/dL 04/29/2025 11:17 AM EDT [facility] Blood 04/29/2025 11:1 6 AM EDT 04/29/2025 11:17 AM EDT Clementina Moreno MD POINT OF CARE TEST ORDERABLES Final Result Performing Organization Address [facility] de Phone Number [facility]
[address] [place] [address], * (ABNORMAL) Protime-INR (04/29/2025 4:30 AM EDT) Only the most recent of2 resultswithin the time period is included. Protime 15.2 12.2 - 15.3 Seconds 04/29/2025 5:18 AM EDT [facility] INR 1.13(H) 0.89 - 1.12 04/29/2025 5:18 AM EDT [facility] Blood Venipuncture / Unknown 04/29/2025 4:30 AM EDT 04/29/2025 4:59 AM EDT Tristan Carr MD LAB BLOOD ORDERABLES Final Re sult Performing Organization Address [facility] Co de Phone Number [facility]
[address] [place] [address], [place] [phone] * (ABNORMAL) CBC (No Diff) (04/29/2025 4:30 AM EDT) WBC 7.99 3.40 - 10.80 10*3/mm3 04/29/2025 5:10 AM EDT [facility] RBC 3.09(L) 4.14 - 5.80 10*6/mm3 04/29/2025 5:10 AM EDT [facility] Hemoglobin 8.7(L) 13.0 - 17.7 g/dL 04/29/2025 5:10 AM EDT [facility] Hematocrit 28.5(L) 37.5 - 51.0 % 04/29/2025 5:10 AM EDT [facility] MCV 92.2 79.0 - 97.0 fL 04/29/2025 5:10 AM EDT [facility] MCH 28.2 26.6 - 33.0 pg 04/29/2025 5:10 AM EDT [facility] MCHC 30.5(L) 31.5 - 35.7 g/dL 04/29/2025 5:10 AM EDT [facility] RDW 19.8(H) 12.3 - 15.4 % 04/29/2025 5:10 AM EDT [facility] RDW-SD 66.5(H) 37.0 - 54.0 fl 04/29/2025 5:10 AM EDT [facility] MPV 9.1 6.0 - 12.0 fL 04/29/2025 5:10 AM EDT [facility] Platelets 252 140 - 450 10*3/mm3 04/29/2025 5:10 AM EDT [facility] Blood Venipuncture / Unknown 04/29/2025 4:30 AM EDT 04/29/2025 4:59 AM EDT us Vaishali Priest LEVEL GLASS FORMING MACHINE OPERATOR LAB BLOOD ORDERABLES Final Re sult [facility]
[address] [place] [address], * (ABNORMAL) Comprehensive Metabolic Panel (04/29/2025 4:30 AM EDT) Only the most recent of2 resultswithin the time period is included. Glucose 123(H) 65 - 99 mg/dL 04/29/2025 5:33 AM EDT [facility] BUN 18.7 8.0 - 23.0 mg/dL 04/29/2025 5:33 AM EDT [facility] Creatinine 0.86 0.76 - 1.27 mg/dL 04/29/2025 5:33 AM EDT [facility] Sodium 139 136 - 145 mmol/L 04/29/2025 5:33 AM EDT [facility] Potassium 3.7 3.5 - 5.2 mmol/L 04/29/2025 5:33 AM EDT [facility] Chloride 103 98 - 107 mmol/L 04/29/2025 5:33 AM EDT [facility] CO2 26.0 22.0 - 29.0 mmol/L 04/29/2025 5:33 AM EDT [facility] Calcium 9.1 8.6 - 10.5 mg/dL 04/29/2025 5:33 AM EDT [facility] Total Protein 6.0 6.0 - 8.5 g/dL 04/29/2025 5:33 AM EDT [facility] Albumin 3.9 3.5 - 5.2 g/dL 04/29/2025 5:33 AM EDT [facility] ALT (SGPT) 33 1 - 41 U/L 04/29/2025 5:33 AM EDT [facility] AST (SGOT) 28 1 - 40 U/L 04/29/2025 5:33 AM EDT [facility] Alkaline Phosphatase 70 39 - 117 U/L 04/29/2025 5:33 AM EDT [facility] Total Bilirubin 0.4 0.0 - 1.2 mg/dL 04/29/2025 5:33 AM EDT [facility] Globulin 2.1 gm/dL 04/29/2025 5:33 AM EDT [facility] Comment:Calculated Result A/G Ratio 1.9 g/dL 04/29/2025 5:33 AM EDT [facility] BUN/Creatinine Ratio 21.7 7.0 - 25.0 04/29/2025 5:33 AM EDT [facility] Anion Gap 10.0 5.0 - 15.0 mmol/L 04/29/2025 5:33 AM EDT [facility] eGFR 89.2 >60.0 mL/min/1.7 3 04/29/2025 5:33 AM EDT [facility] Blood Venipuncture / Unknown 04/29/2025 4:30 AM EDT 04/29/2025 4:59 AM EDT Narrative [facility] - 04/29/2025 5:33 AM EDT [...] race as a factor us Vaishali Priest LEVEL GLASS FORMING MACHINE OPERATOR LAB BLOOD ORDERABLES Final Re sult [facility]
[address] [place] [address], * (ABNORMAL) Blood Gas, Venous With Co-Ox (04/28/2025 8:46 PM EDT) Site Nurse/Dr Johnson 04/28/2025 8:46 PM EDT [facility] pH, Venous 7.393 7.310 - 7.410 pH Units 04/28/2025 8:46 PM EDT [facility] pCO2, Venous 50.3 41.0 - 51.0 mm Hg 04/28/2025 8:46 PM EDT [facility] pO2, Venous 28.0 27.0 - 53.0 mm Hg 04/28/2025 8:46 PM EDT [facility] HCO3, Venous 30.6(H) 22.0 - 28.0 mmol/L 04/28/2025 8:46 PM EDT [facility] Base Excess, Venous 4.9(H) -2.0 - 2.0 mmol/L 04/28/2025 8:46 PM EDT [facility] Hemoglobin, Blood Gas 9.6(L) 13.5 - 17.5 g/dL 04/28/2025 8:46 PM EDT [facility] Oxyhemoglobin Venous 44.5 % 04/15 8:46 PM EDT [facility] Comment:84 Value below refer ence range Methemoglobin Venous 0.5 % 04/15 8:46 PM EDT [facility] Carboxyhemoglobin Venous 1.6 % 04/28/2025 8:46 PM EDT [facility] CO2 Content 32.2 22 - 33 mmol/L 04/28/2025 8:46 PM EDT [facility] Temperature 37.0 04/28/2025 8:46 PM EDT [facility] Barometric Pressure for Blood Gas 04/28/2025 8:46 PM EDT [facility] Comment:N/A Modality Nasal Cannula 04/28/2025 8:46 PM EDT [facility] FIO2 24 % 04/28/2025 8:46 PM EDT [facility] Rate 0 Breaths/ minute 04/28/2025 8:46 PM EDT [facility] PIP 0 cmH2O 04/28/2025 8:46 PM EDT [facility] Comment:Meter: [id number] Regulator Operator: [id number] IPAP 0 04/28/2025 8:46 PM EDT [facility] EPAP 0 04/28/2025 8:46 PM EDT [facility] Venous Blood 04/28/2025 8:46 PM EDT 04/28/2025 8:46 PM EDT Tristan Carr MD LAB BLOOD ORDERABLES Final Re sult Performing Organization Address City/[facility]/ZIP Co de Phone Number [facility]
[address] * (ABNORMAL) High Sensitivity Troponin T 1Hr (04/28/2025 6:59 PM EDT) HS Troponin T 25(H) <22 ng/L 04/28/2025 7:30 PM EDT [facility] Troponin T Numeric Delta 10(HH) Abnormal if >/=3 ng/L 04/28/2025 7:30 PM EDT [facility] Blood Venipuncture / Unknown 04/28/2025 6:59 PM EDT 04/28/2025 7:02 PM EDT Narrative [facility] - 04/28/2025 7:30 PM EDT [...] ORDERABLES Final R esult Performing Organization Address City/[facility]/ZIP Co de Phone Number [facility]
[address] [place] [address], * XR Chest 1 View (04/28/2025 6:16 PM EDT) Anatomical Region Laterality Modality Body N/A Radiographic Nubia ging 04/28/2025 6:25 PM EDT Impressions 04/28/2025 6:26 PM EDT Impression: No acute cardiopulmonary disease. Electronically Signed: Connor Hall MD 04/28/2025 6:26 PM EDT Workstation ID: [id number] Narrative 04/28/2025 6:26 PM EDT XR CHEST [...] MD 04/28/2025 6:26 PM EDT Workstation ID: [id number] Serafin Villalpando MD IM DIAGNOSTIC IMAGING ORDER [...] Hold for add-ons. 04/28/2025 5:45 PM EDT [facility] Comment:Auto resulted. Blood Line / Unknown 04/28/2025 5: 33 PM EDT 04/28/2025 5:38 PM EDT Serafin Villalpando MD LAB BLOOD ORDER ONLY Final R esult [facility]
[address] [place] [address], * Gold Top - [facility] (04/28/2025 5:33 PM EDT) Extra Tube Hold for add-ons. 04/28/2025 5:45 PM EDT [facility] Comment:Auto resulted. Blood Line / Unknown 04/28/2025 5: 33 PM EDT 04/28/2025 5:38 PM EDT Serafin Villalpando MD LAB BLOOD ORDER ONLY Final R esult Performing Organization Address City/[facility]/ZIP Co de Phone Number [facility]
[address] [place] [address], * Green Top (Gel) (04/28/2025 5:33 PM EDT) [facility] Extra Tube Hold for add-ons. 04/28/2025 5:45 PM EDT [facility] Comment:Auto resulted. Blood Line / Unknown 04/28/2025 5: 33 PM EDT 04/28/2025 5:38 PM EDT Serafin Villalpando MD LAB BLOOD ORDER ONLY Final R esult Performing Organization Address [facility]/ZIP Co de Phone Number [facility]
[address] [place] [address], * (ABNORMAL) CBC Auto Differential (04/28/2025 5:33 PM EDT) [facility] WBC 5.30 3.40 - 10.80 10*3/mm3 04/28/2025 5:41 PM EDT [facility] RBC 3.60(L) 4.14 - 5.80 10*6/mm3 04/28/2025 5:41 PM EDT [facility] Hemoglobin 10.3(L) 13.0 - 17.7 g/dL 04/28/2025 5:41 PM EDT [facility] Hematocrit 33.3(L) 37.5 - 51.0 % 04/28/2025 5:41 PM EDT [facility] MCV 92.5 79.0 - 97.0 fL 04/28/2025 5:41 PM EDT [facility] MCH 28.6 26.6 - 33.0 pg 04/28/2025 5:41 PM EDT [facility] MCHC 30.9(L) 31.5 - 35.7 g/dL 04/28/2025 5:41 PM EDT [facility] RDW 19.7(H) 12.3 - 15.4 % 04/28/2025 5:41 PM [facility] RDW-SD 66.3(H) 37.0 - 54.0 fl 04/28/2025 5:41 PM [facility] MPV 8.5 6.0 - 12.0 fL 04/28/2025 5:41 PM [facility] Platelets 245 140 - 450 10*3/mm3 04/28/2025 5:41 PM [facility] Neutrophil % 72.1 42.7 - 76.0 % 04/28/2025 5:41 PM [facility] Lymphocyte % 10.4(L) 19.6 - 45.3 % 04/28/2025 5:41 PM [facility] Monocyte % 7.5 5.0 - 12.0 % 04/28/2025 5:41 PM [facility] Eosinophil % 7.9(H) 0.3 - 6.2 % 04/28/2025 5:41 PM [facility] Basophil % 0.8 0.0 - 1.5 % 04/28/2025 5:41 PM [facility] Immature Grans % 1.3(H) 0.0 - 0.5 % 04/28/2025 5:41 PM [facility] Neutrophils, Absolute 3.82 1.70 - 7.00 10*3/mm3 04/28/2025 5:41 PM [facility] Lymphocytes, Absolute 0.55(L) 0.70 - 3.10 10*3/mm3 04/28/2025 5:41 PM [facility] Monocytes, Absolute 0.40 0.10 - 0.90 10*3/mm3 04/28/2025 5:41 PM [facility] Eosinophils, Absolute 0.42(H) 0.00 - 0.40 10*3/mm3 04/28/2025 5:41 PM [facility] Basophils, Absolute 0.04 0.00 - 0.20 10*3/mm3 04/28/2025 5:41 PM EDT [facility] Immature Grans, Absolute 0.07(H) 0.00 - 0.05 10*3/mm3 04/28/2025 5:41 PM EDT [facility] nRBC 0.0 0.0 - 0.2 /100 WBC 04/28/2025 5:41 PM EDT [facility] Blood Line / Unknown 04/28/2025 5: 33 PM EDT 04/28/2025 5:38 PM EDT us Serafin Villalpando MD LAB BLOOD ORDERABLES Final R esult [facility]
[address] [place] [address], * Lavender Top (04/28/2025 5:33 PM EDT) Extra Tube hold for add-on 04/28/2025 5:45 PM EDT [facility] Comment:Auto resulted Blood Line / Unknown 04/28/2025 5: 33 PM EDT 04/28/2025 5:38 PM EDT us Serafin Villalpando MD LAB BLOOD ORDER ONLY Final R esult [facility]
[address] [place] [address], * Light Blue Top (04/28/2025 5:33 PM EDT) Extra Tube Hold for add-ons. 04/28/2025 5:45 PM EDT [facility] Comment:Auto resulted Blood Line / Unknown 04/28/2025 5: 33 PM EDT 04/28/2025 5:38 PM EDT us Serafin Villalpando MD LAB BLOOD ORDER ONLY Final R esult Performing Organization Address [facility]/ZIP Co de Phone Number [facility]
[address] [place] [address], * BNP (04/28/2025 5:33 PM EDT) proBNP 420.5 0.0 - 1,800.0 pg/mL 04/28/2025 6:03 PM EDT [facility] Blood Line / Unknown 04/28/2025 5: 33 PM EDT 04/28/2025 5:38 PM EDT Narrative [facility] - 04/28/2025 6:03 PM EDT [...] ORDERABLES Final R esult Performing Organization Address [facility] Co de Phone Number [facility]
[address] [place] [address], * Telemetry Scan (04/28/2025 5:31 PM EDT) Only the most recent of2 resultswithin the time period is included. [facility] Onbase ECG ORDERABLES Final Result from Last [...] or is breathing): Full Support Care Teams Solderer Torch Relationship Specialty Start Date End Date Provider, No Known [facility] [place] [address] PCP - General 04/28/25
--- OUTSIDE RECORDS SUMMARY | 2025-07-13 23:31 | XMS_ITS | Data Portability ---
Author Organization [facility] & [place] [facility] ADMIN Address [address] [place] [id number] Care Team Providers Care Laborer Wharf Name Role Phone MAXIMILIAN TORRES Primary Care Provider AURELIA DEL CASTILLO Typists Supervisor [phone] FADY LAMB Urologist EMERY PIEDRA Editor Newspaper GAYLA SANCHEZ Primary Care Provider [phone] Assessment No assessment recorded. Plan of Treatment Reminders Order Date Submit Date Provider Last Modified By Organization Details Last Modified Time Details Appointments None recorded. Lab CBC w/ auto diff 2024 025 [facility], [address] [facility], [place], [address], 5 14:21:17 hepatic function panel, serum 2024 025 2 [facility], [address] [place], [address], 5 19:55:37 CBC w/ auto diff 2024 025 [facility], [address] [facility], [place], [address], 5 14:27:12 hepatic function panel, serum 2024 025 [email or web address] [facility], [address] , [place], [address], 5 13:17:52 CBC w/ auto diff 2023 [facility], [address] , [place], [address], 4 11:59:13 hepatic function panel, serum 2023 [facility], [address] , [place], [address], 4 11:55:46 CBC w/ auto diff 2023 [facility], [address] , [place], [address], 4 10:11:21 hepatic function panel, serum 2023 [facility], [address] , [place], [address], 10:49:19 Referral None recorded. Procedures None recorded. Surgeries None recorded. Imaging None recorded. Medication Orders isoniazid 300 mg tablet 2023 [facility], [facility] [place], [address], 10:48:31 Patient TargetsNo targets recorded. Patient InstructionsNo instructions recorded. Reason for Referral None Reported. Results Created Date Observation Date Name Description Value Unit Range Abnormal Flag Note LastModifiedBy Organization Detail LastModifiedTime 07/23/2007/23/2024 CBC AUTO W DIFF WBC 11.5 K/uL 4.0-10 .5 high Not Available [facility] ([facility]) [address] , [place], [address], 07/23/2024 10:11:21 07/23/20 24 07/23/2024 CBC AUTO W DIFF RBC 3.4 M/mm3 4.7-6. 1 low Not Available [facility] ([facility]) [address], [place], [address], 07/23/2024 10:11:21 07/23/20 24 07/23/2024 CBC AUTO W DIFF HGB 11.0 gm/dL 13.5-1 8.0 low Not Available [facility] ([facility]) [address], [place], [address], 07/23/2024 10:11:21 07/23/20 24 07/23/2024 CBC AUTO W DIFF HCT 34.7 % 42.0-5 2.0 low Not Available [facility] ([facility]) [address], [place], [address], 07/23/2024 10:11:21 07/23/20 24 07/23/2024 CBC AUTO W DIFF MCV 100.9 fL 78-100 high Not Available [facility] ([facility]) [address], [place], [address], 07/23/2024 10:11:21 07/23/20 24 07/23/2024 CBC AUTO W DIFF MCH 32.0 pg 27-31 high Not Available [facility] ([facility]) [address], [place], [address], 07/23/2024 10:11:21 07/23/20 24 07/23/2024 CBC AUTO W DIFF MCHC 31.7 g/dL 32-36 low Not Available [facility] ([facility]) [address] , [place], [address], 07/23/2024 10:11:21 07/23/20 24 07/23/2024 CBC AUTO W DIFF RDW 16.3 % 11.5-1 4.0 high Not Available [facility] ([facility]) [address] , [place], [address], 07/23/2024 10:11:21 07/23/20 24 07/23/2024 CBC AUTO W DIFF platelet count 310 K/uL 150-45 0 Not Available [facility] ([facility]) [address] , [place], [address], 07/23/2024 10:11:21 07/23/20 24 07/23/2024 CBC AUTO W DIFF MPV 9.7 fL 6-9.5 high Not Available [facility] ([facility]) [address] , [place], [address], 07/23/2024 10:11:21 07/23/20 24 07/23/2024 CBC AUTO W DIFF neutrophil% 80.6 % 43-65 high Not Available [facility] ([facility]) [address], [place], [address], 07/23/2024 10:11:21 07/23/20 24 07/23/2024 CBC AUTO W DIFF lymphocyte% 10.4 % 20.5-4 5.5 low Not Available [facility] ([facility]) [address], [place], [address], 07/23/2024 10:11:21 07/23/20 24 07/23/2024 CBC AUTO W DIFF monocyte% 6.9 % 5.5-11 .7 Not Available [facility] ([facility]) [address] [place], [address], 07/23/2024 10:11:21 07/23/20 24 07/23/2024 CBC AUTO W DIFF eosinophil% 1.0 % 0.9-2. 9 Not Available [facility] ([facility]) [address] [place], [address], 07/23/2024 10:11:21 07/23/20 24 07/23/2024 CBC AUTO W DIFF basophil% 0.4 % 0.2-1. 0 Not Available [facility] [address] [facility] [place], [address], 07/23/2024 10:11:21 07/23/20 24 07/23/2024 CBC AUTO W DIFF immature granulocytes % 0.7 % 0.0-0. 8 Not Available [facility] ([facility]) [address], [place], [address], 07/23/2024 10:11:21 07/23/20 24 07/23/2024 CBC AUTO W DIFF nucleated red blood cells % 0.3 % Not Available [facility] ([facility]) [address] [facility], [place], [address], 07/23/2024 10:11:21 07/23/20 24 07/23/2024 CBC AUTO W DIFF neutrophil# 9.3 K/uL 2.2-4. 8 high Not Available [facility] ([facility]) [address] [facility], [place], [address], 07/23/2024 10:11:21 07/23/20 24 07/23/2024 CBC AUTO W DIFF lymphocyte# 1.2 cell/ mcL 1.3-2. 9 low Not Available [facility] ([facility]) [address], [place], [address], 07/23/2024 10:11:21 07/23/20 24 07/23/2024 CBC AUTO W DIFF monocyte# 0.8 cell/ mcL 0.3-0. 8 Not Available [facility] ([facility]) [address], [place], [address], 07/23/2024 10:11:21 07/23/20 24 07/23/2024 CBC AUTO W DIFF eosinophil# 0.1 cell/ mcL 0-0.2 Not Available [facility] ([facility]) [address] [place], [address], 07/23/2024 10:11:21 07/23/20 24 07/23/2024 CBC AUTO W DIFF basophil# 0.1 cell/ mcL 0.0-1. 0 Not Available [facility] ([facility]) [address] , [place], [address], 07/23/2024 10:11:21 07/23/20 24 07/23/2024 CBC AUTO W DIFF immature gramulocytes # 0.08 K/uL Not Available [facility] ([facility]) [address] , [place], [address], 07/23/2024 10:11:21 07/23/20 24 07/23/2024 CBC AUTO W DIFF nucleated red blood cells # 0.03 K/uL Not Available [facility] ([facility]) [address] , [place], [address], 07/23/2024 10:11:21 07/23/20 24 07/23/2024 CBC AUTO W DIFF manual differential NO Not Available [facility] ([facility]) [address] , [place], [address], 07/23/2024 10:11:21 07/23/20 24 07/23/2024 HEPAT IC FUNCT IONAL PANEL total protein 7.3 g/dL 6.4-8. 2 Not Available [facility] ([facility]) [address] , [place], [address], 07/23/2024 10:22:19 07/23/20 24 07/23/2024 HEPAT IC FUNCT IONAL PANEL albumin 3.6 g/dL 3.4-5. 0 Not Available [facility] ([facility]) [address] , [place], [address], 07/23/2024 10:22:19 07/23/20 24 07/23/2024 HEPAT IC FUNCT IONAL PANEL bilirubin direct 0.1 O.oo-0 .30 Not Available [facility] ([facility]) [address], [place], [address], 07/23/2024 10:22:19 07/23/20 24 07/23/2024 HEPAT IC FUNCT IONAL PANEL bilirubin total 0.40 mg/dL 0.10-1 .00 Not Available [facility] ([facility]) [address] , [place], [address], 07/23/2024 10:22:19 07/23/20 24 07/23/2024 HEPAT IC FUNCT IONAL PANEL bilirubin indirect 0.30 Not Available [facility] ([facility]) [address] , [place], [address], 07/23/2024 10:22:19 07/23/20 24 07/23/2024 HEPAT IC FUNCT IONAL PANEL AST (SGOT) 17 U/L 0-37 Not Available [facility] ([facility]) [address] , [place], [address], 07/23/2024 10:22:19 07/23/20 24 07/23/2024 HEPAT IC FUNCT IONAL PANEL ALT (SGPT) 45 U/L 0-65 Not Available [facility] ([facility]) [address] , [place], [address], 07/23/2024 10:22:19 07/23/20 24 07/23/2024 HEPAT IC FUNCT IONAL PANEL alk phosphatase 49 U/L 46-116 Not Available [facility] ([facility]) [address] , [place], [address], 07/23/2024 10:22:19 08/20/20 24 08/20/2024 HEPAT IC FUNCT IONAL PANEL total protein 7.4 g/dL 6.4-8. 2 Not Available [facility] ([facility]) [address], [place], [address], 08/20/2024 11:54:21 08/20/20 24 08/20/2024 HEPAT IC FUNCT IONAL PANEL albumin 4.1 g/dL 3.4-5. 0 Not Available [facility] ([facility]) [address] , [place], [address], 08/20/2024 11:54:21 08/20/20 24 08/20/2024 HEPAT IC FUNCT IONAL PANEL bilirubin direct 0.1 O.oo-0 .30 Not Available [facility] ([facility]) [address] , [place], [address], 08/20/2024 11:54:21 08/20/20 24 08/20/2024 HEPAT IC FUNCT IONAL PANEL bilirubin total 0.50 mg/dL 0.10-1 .00 Not Available [facility] ([facility]) [address] , [place], [address], 08/20/2024 11:54:21 08/20/20 24 08/20/2024 HEPAT IC FUNCT IONAL PANEL bilirubin indirect 0.40 Not Available [facility] ([facility]) [address] , [place], [address], 08/20/2024 11:54:21 08/20/20 24 08/20/2024 HEPAT IC FUNCT IONAL PANEL AST (SGOT) 20 U/L 0-37 Not Available [facility] ([facility]) [address] , [place], [address], 08/20/2024 11:54:21 08/20/20 24 08/20/2024 HEPAT IC FUNCT IONAL PANEL ALT (SGPT) 64 U/L 0-65 Not Available [facility] ([facility]) [address] , [place], [address], 08/20/2024 11:54:21 08/20/20 24 08/20/2024 HEPAT IC FUNCT IONAL PANEL alk phosphatase 53 U/L 46-116 Not Available [facility] ([facility]) [address], [place], [address], 08/20/2024 11:54:21 10/21/19 25 10/21/2024 HEPAT IC FUNCT IONAL PANEL total protein 6.9 g/dL 6.4-8. 2 Not Available [facility] ([facility]) [address], [place], [address], 10/21/2024 11:57:13 10/21/19 25 10/21/2024 HEPAT IC FUNCT IONAL PANEL albumin 3.6 g/dL 3.4-5. 0 Not Available [facility] ([facility]) [address], [place], [address], 10/21/2024 11:57:13 10/21/19 25 10/21/2024 HEPAT IC FUNCT IONAL PANEL bilirubin direct 0.2 O.oo-0 .30 Not Available [facility] ([facility]) [address], [place], [address], 10/21/2024 11:57:13 10/21/19 25 10/21/2024 HEPAT IC FUNCT IONAL PANEL bilirubin total 0.50 mg/dL 0.10-1 .00 Not Available [facility] ([facility]) [address], [place], [address], 10/21/2024 11:57:13 10/21/19 25 10/21/2024 HEPAT IC FUNCT IONAL PANEL bilirubin indirect 0.30 Not Available [facility] ([facility]) [address], [place], [address], 10/21/2024 11:57:13 10/21/19 25 10/21/2024 HEPAT IC FUNCT IONAL PANEL AST (SGOT) 23 U/L 0-37 Not Available [facility] ([facility]) [address], [place], [address], 10/21/2024 11:57:13 10/21/19 25 10/21/2024 HEPAT IC FUNCT IONAL PANEL ALT (SGPT) 59 U/L 0-65 Not Available [facility] ([facility]) [address] , [place], [address], 10/21/2024 11:57:13 10/21/19 25 10/21/2024 HEPAT IC FUNCT IONAL PANEL alk phosphatase 55 U/L 46-116 Not Available [facility] ([facility]) [address] , [place], [address], 10/21/2024 11:57:13 10/21/19 25 10/21/2024 CBC AUTO W DIFF WBC 5.0 K/uL 4.0-10 .5 Not Available [facility] ([facility]) [address], [place], [address], 10/21/2024 14:27:12 10/21/19 25 10/21/2024 CBC AUTO W DIFF RBC 3.6 M/mm3 4.7-6. 1 low Not Available [facility] ([facility]) [address], [place], [address], 10/21/2024 14:27:12 10/21/19 25 10/21/2024 CBC AUTO W DIFF HGB 9.5 gm/dL 13.5-1 8.0 low Not Available [facility] ([facility]) [address], [place], [address], 10/21/2024 14:27:12 10/21/19 25 10/21/2024 CBC AUTO W DIFF HCT 32.8 % 42.0-5 2.0 low Not Available [facility] ([facility]) [address], [place], [address], 10/21/2024 14:27:12 10/21/19 25 10/21/2024 CBC AUTO W DIFF MCV 90.1 fL 78-100 Not Available [facility] ([facility]) [address], [place], [address], 10/21/2024 14:27:12 10/21/19 25 10/21/2024 CBC AUTO W DIFF MCH 26.1 pg 27-31 low Not Available [facility] ([facility]) [address] , [place], [address], 10/21/2024 14:27:12 10/21/19 25 10/21/2024 CBC AUTO W DIFF MCHC 29.0 g/dL 32-36 low Not Available [facility] ([facility]) [address] , [place], [address], 10/21/2024 14:27:12 10/21/19 25 10/21/2024 CBC AUTO W DIFF RDW 19.9 % 11.5-1 4.0 high Not Available [facility] ([facility]) [address] , [place], [address], 10/21/2024 14:27:12 10/21/19 25 10/21/2024 CBC AUTO W DIFF platelet count 237 K/uL 150-45 0 Not Available [facility] ([facility]) [address] , [place], [address], 10/21/2024 14:27:12 10/21/19 25 10/21/2024 CBC AUTO W DIFF MPV 10.1 fL 6-9.5 high Not Available [facility] ([facility]) [address] , [place], [address], 10/21/2024 14:27:12 10/21/19 25 10/21/2024 CBC AUTO W DIFF neutrophil% 87.2 % 43-65 high Not Available [facility] ([facility]) [address] , [place], [address], 10/21/2024 14:27:12 10/21/19 25 10/21/2024 CBC AUTO W DIFF lymphocyte% 6.4 % 20.5-4 5.5 low Not Available [facility] ([facility]) [address] [place], [address], 10/21/2024 14:27:12 10/21/19 25 10/21/2024 CBC AUTO W DIFF monocyte% 4.6 % 5.5-11 .7 low Not Available [facility] ([facility]) [address] [place], [address], 10/21/2024 14:27:12 10/21/19 25 10/21/2024 CBC AUTO W DIFF eosinophil% 0.2 % 0.9-2. 9 low Not Available [facility] ([facility]) [address] [place], [address], 10/21/2024 14:27:12 10/21/19 25 10/21/2024 CBC AUTO W DIFF basophil% 0.6 % 0.2-1. 0 Not Available [facility] ([facility]) [address] [place], [address], 10/21/2024 14:27:12 10/21/19 25 10/21/2024 CBC AUTO W DIFF immature granulocytes % 1.0 % 0.0-0. 8 high Not Available [facility] ([facility]) [address] [place], [address], 10/21/2024 14:27:12 10/21/19 25 10/21/2024 CBC AUTO W DIFF nucleated red blood cells % 0.6 % Not Available [facility] ([facility]) [address] [place], [address], 10/21/2024 14:27:12 10/21/19 25 10/21/2024 CBC AUTO W DIFF neutrophil# 4.4 K/uL 2.2-4. 8 Not Available [facility] ([facility]) [address] [place], [address], 10/21/2024 14:27:12 10/21/19 25 10/21/2024 CBC AUTO W DIFF lymphocyte# 0.3 cell/ mcL 1.3-2. 9 low Not Available [facility] ([facility]) [address] [facility], [place], [address], 10/21/2024 14:27:12 10/21/19 25 10/21/2024 CBC AUTO W DIFF monocyte# 0.2 cell/ mcL 0.3-0. 8 low Not Available [facility] ([facility]) [address] [facility], [place], [address], 10/21/2024 14:27:12 10/21/19 25 10/21/2024 CBC AUTO W DIFF eosinophil# 0.0 cell/ mcL 0-0.2 Not Available [facility] ([facility]) [address] [facility], [place], [address], 10/21/2024 14:27:12 10/21/19 25 10/21/2024 CBC AUTO W DIFF basophil# 0.0 cell/ mcL 0.0-1. 0 Not Available [facility] ([facility]) [address] [facility], [place], [address], 10/21/2024 14:27:12 10/21/19 25 10/21/2024 CBC AUTO W DIFF immature gramulocytes # 0.05 K/uL Not Available [facility] ([facility]) [address] [facility], [place], [address], 10/21/2024 14:27:12 10/21/19 25 10/21/2024 CBC AUTO W DIFF nucleated red blood cells # 0.03 K/uL Not Available [facility] ([facility]) [address] [facility], [place], [address], 10/21/2024 14:27:12 10/21/19 25 10/21/2024 CBC AUTO W DIFF manual differential NO Not Available [facility] ([facility]) [address], [place], [address], 10/21/2024 14:27:12 10/21/19 25 10/21/2024 CBC AUTO W DIFF platelet estimate ADEQUA TE adequa te Not Available [facility] ([facility]) [address], [place], [address], 10/21/2024 14:27:12 10/21/19 25 10/21/2024 CBC AUTO W DIFF platelet morphology NORMAL normal Not Available [facility] ([facility]) [address] , [place], [address], 10/21/2024 14:27:12 10/21/19 25 10/21/2024 CBC AUTO W DIFF RBC morphology NORMAL normal Not Available [facility] ([facility]) [address] , [place], [address], 10/21/2024 14:27:12 10/21/19 25 10/21/2024 CBC AUTO W DIFF anisocytosis SLIGHT none seen Not Available [facility] ([facility]) [address] , [place], [address], 10/21/2024 14:27:12 10/21/19 25 10/21/2024 CBC AUTO W DIFF poikilocytos is SLIGHT none seen Not Available [facility] ([facility]) [address] [place], [address], 10/21/2024 14:27:12 12/22/19 25 12/21/2024 CBC AUTO W DIFF WBC 6.1 K/uL 4.0-10 .5 Not Available [facility] ([facility]) [address] [place], [address], 12/21/2024 14:21:17 12/22/19 25 12/21/2024 CBC AUTO W DIFF RBC 3.6 M/mm3 4.7-6. 1 low Not Available [facility] ([facility]) [address] , [place], [address], 12/21/2024 14:21:17 12/22/19 25 12/21/2024 CBC AUTO W DIFF HGB 10.1 gm/dL 13.5-1 8.0 low Not Available [facility] ([facility]) [address] , [place], [address], 12/21/2024 14:21:17 12/22/19 25 12/21/2024 CBC AUTO W DIFF HCT 33.0 % 42.0-5 2.0 low Not Available [facility] ([facility]) [address] , [place], [address], 12/21/2024 14:21:17 12/22/19 25 12/21/2024 CBC AUTO W DIFF MCV 90.7 fL 78-100 Not Available [facility] ([facility]) [address] , [place], [address], 12/21/2024 14:21:17 12/22/19 25 12/21/2024 CBC AUTO W DIFF MCH 27.7 pg 27-31 Not Available [facility] ([facility]) [address] , [place], [address], 12/21/2024 14:21:17 12/22/19 25 12/21/2024 CBC AUTO W DIFF MCHC 30.6 g/dL 32-36 low Not Available [facility] ([facility]) [address] , [place], [address], 12/21/2024 14:21:17 12/22/19 25 12/21/2024 CBC AUTO W DIFF RDW 22.9 % 11.5-1 4.0 high Not Available [facility] ([facility]) [address], [place], [address], 12/21/2024 14:21:17 12/22/19 25 12/21/2024 CBC AUTO W DIFF platelet count 275 K/uL 150-45 0 Not Available [facility] ([facility]) [address] , [place], [address], 12/21/2024 14:21:17 12/22/19 25 12/21/2024 CBC AUTO W DIFF MPV 9.1 fL 6-9.5 Not Available [facility] ([facility]) [address] , [place], [address], 12/21/2024 14:21:17 12/22/19 25 12/21/2024 CBC AUTO W DIFF neutrophil% 80.2 % 43-65 high Not Available [facility] ([facility]) [address] , [place], [address], 12/21/2024 14:21:17 12/22/19 25 12/21/2024 CBC AUTO W DIFF lymphocyte% 8.4 % 20.5-4 5.5 low Not Available [facility] ([facility]) [address] , [place], [address], 12/21/2024 14:21:17 12/22/19 25 12/21/2024 CBC AUTO W DIFF monocyte% 9.4 % 5.5-11 .7 Not Available [facility] ([facility]) [address] [place], [address], 12/21/2024 14:21:17 12/22/19 25 12/21/2024 CBC AUTO W DIFF eosinophil% 1.0 % 0.9-2. 9 Not Available [facility] ([facility]) [address] [place], [address], 12/21/2024 14:21:17 12/22/19 25 12/21/2024 CBC AUTO W DIFF basophil% 0.5 % 0.2-1. 0 Not Available [facility] ([facility]) [address], [place], [address], 12/21/2024 14:21:17 12/22/19 25 12/21/2024 CBC AUTO W DIFF immature granulocytes % 0.5 % 0.0-0. 8 Not Available [facility] ([facility]) [address] [facility], [place], [address], 12/21/2024 14:21:17 12/22/19 25 12/21/2024 CBC AUTO W DIFF nucleated red blood cells % 0.0 % Not Available [facility] ([facility]) [address] [facility], [place], [address], 12/21/2024 14:21:17 12/22/19 25 12/21/2024 CBC AUTO W DIFF neutrophil# 4.9 K/uL 2.2-4. 8 high Not Available [facility] ([facility]) [address] [facility], [place], [address], 12/21/2024 14:21:17 12/22/19 25 12/21/2024 CBC AUTO W DIFF lymphocyte# 0.5 cell/ mcL 1.3-2. 9 low Not Available [facility] ([facility]) [address] [place], [address], 12/21/2024 14:21:17 12/22/19 25 12/21/2024 CBC AUTO W DIFF monocyte# 0.6 cell/ mcL 0.3-0. 8 Not Available [facility] ([facility]) [address] [facility], [place], [address], 12/21/2024 14:21:17 12/22/19 25 12/21/2024 CBC AUTO W DIFF eosinophil# 0.1 cell/ mcL 0-0.2 Not Available [facility] ([facility]) [address], [place], [address], 12/21/2024 14:21:17 12/22/19 25 12/21/2024 CBC AUTO W DIFF basophil# 0.0 cell/ mcL 0.0-1. 0 Not Available [facility] ([facility]) [address], [place], [address], 12/21/2024 14:21:17 12/22/19 25 12/21/2024 CBC AUTO W DIFF immature gramulocytes # 0.03 K/uL Not Available [facility] ([facility]) [address], [place], [address], 12/21/2024 14:21:17 12/22/19 25 12/21/2024 CBC AUTO W DIFF nucleated red blood cells # 0.00 K/uL Not Available [facility] ([facility]) [address], [place], [address], 12/21/2024 14:21:17 12/22/19 25 12/21/2024 CBC AUTO W DIFF manual differential NO Not Available [facility] ([facility]) [address], [place], [address], 12/21/2024 14:21:17 12/22/19 25 12/21/2024 HEPAT IC FUNCT IONAL PANEL total protein 7.2 g/dL 6.4-8. 2 Not Available [facility] ([facility]) [address], [place], [address], 12/21/2024 14:51:30 12/22/19 25 12/21/2024 HEPAT IC FUNCT IONAL PANEL albumin 4.1 g/dL 3.4-5. 0 Not Available [facility] ([facility]) [address], [place], [address], 12/21/2024 14:51:30 12/22/19 25 12/21/2024 HEPAT IC FUNCT IONAL PANEL bilirubin direct 0.0 O.oo-0 .30 Not Available [facility] ([facility]) [address] , [place], [address], 12/21/2024 14:51:30 12/22/19 25 12/21/2024 HEPAT IC FUNCT IONAL PANEL bilirubin total 0.40 mg/dL 0.10-1 .00 Not Available [facility] ([facility]) [address] , [place], [address], 12/21/2024 14:51:30 12/22/19 25 12/21/2024 HEPAT IC FUNCT IONAL PANEL bilirubin indirect 0.40 Not Available [facility] ([facility]) [address], [place], [address], 12/21/2024 14:51:30 12/22/19 25 12/21/2024 HEPAT IC FUNCT IONAL PANEL AST (SGOT) 32 U/L 0-37 Not Available [facility] ([facility]) [address], [place], [address], 12/21/2024 14:51:30 12/22/19 25 12/21/2024 HEPAT IC FUNCT IONAL PANEL ALT (SGPT) 50 U/L 0-65 Not Available [facility] ([facility]) [address], [place], [address], 12/21/2024 14:51:30 12/22/19 25 12/21/2024 HEPAT IC FUNCT IONAL PANEL alk phosphatase 122 U/L 46-116 high Not Available [facility] ([facility]) [address], [place], [address], 12/21/2024 14:51:30 Result Notes None recorded. 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 Procedures Surgical History Date Name Laterality Status Provider Name and Address Organization Details Recorded Time 09/15/18 98 Cardiovascular Surgery completed Ben Torres [place] [facility] [place] 08/05/2022 13:01:39 09/15/18 98 Other completed Ben Torres [place] [facility] [place] 08/05/2022 13:01:39 procedure on knee completed Ben Torres [place] [facility] [place] 08/05/2022 13:05:30 Imaging Results None recorded. Procedure [...] Updated DateTime 5 187.96 cm 26.1 kg/m2 62397.2 5 g 98.2 [degF] 67 /min 92 % 92 % 94/59 mm[Hg] Preeti BEVERLY [facility] - [place] [facility] [place] 5 10:40:12 Date Recorded Body height Heart rate Oxygen saturation Oxygen saturation in Arterial blood by Pulse oximetry Heart rate Body temperature Body mass index (BMI) Body weight Systolic And Diastolic Provider Name and Address Organization Details Last Updated DateTime 5 187.96 cm 79 /min 94 % 94 % 79 /min 98 [degF] 25.5 kg/m2 71924.8 8 g 122/67 mm[Hg] Tammy [facility] & [place] 5 13:43:20 Date Recorded Body height Heart rate Oxygen saturation Oxygen saturation in Arterial blood by Pulse oximetry Body temperature Body mass index (BMI) Body weight Systolic And Diastolic Provider Name and Address Organization Details Last Updated DateTime 5 187.96 cm 58 /min 95 % 95 % 98.9 [degF] 25.3 kg/m2 80454.1 3 g 116/69 mm[Hg] Magnus BEVERLY [facility] & [place] 5 11:10:14 Date Recorded Body height Oxygen saturation Oxygen saturation in Arterial blood by Pulse oximetry Heart rate Systolic And Diastolic Provider Name and Address Organization Details Last Updated DateTime 4 187.96 cm 91 % 91 % 56 /min 133/74 mm[Hg] Preeti GuevarappardBrian Ranulfo BEVERLY [facility] & [place] 4 09:22:06 Date Recorded Body height Body mass index (BMI) Body weight Body temperature Heart rate Oxygen saturation Oxygen saturation in Arterial blood by Pulse oximetry Systolic And Diastolic Provider Name and Address Organization Details Last Updated DateTime 4 187.96 cm 25.3 kg/m2 86448.7 g 96.7 [degF] 66 /min 93 % 93 % 130/70 mm[Hg] Preeti BEVERLY [facility] & [place] 4 10:33:55 Social History Question Answer Notes LastModified by Organizat ion Details LastModified Time Tobacco Smoking Status Former Smoker Lindsaybharati Alexander benavides [facility]SH [facility] & [place] 08/05/2022 13:01:35 Do You Have An Advance Directive? Yes [email or web address] Information not available 08/05/2022 Are You Blind Or Do You Have Difficulty Seeing? No [email or web address] Information not available 08/05/2022 What Was The Date Of Your Most Recent Tobacco Screening? 06/21/2024 [email or web address] Information not available 06/24/2024 Are You Passively Exposed To Smoke? No [email or web address] Information not available 08/05/2022 How Much Tobacco Do You Smoke? No Information not available 08/05/2022 How Many Years Have You Smoked Tobacco? 30 Years In The Past [email or web address] Information not available 08/05/2022 Sex: Male Functional Status Question Answer Note LastModified by Organizat ion Details LastModified Time Do you use any illicit or recreational drugs? No Information not available 08/05/2022 What is your level of alcohol consumption? None [email or web address] Information not available 08/05/2022 Do you or have you ever used smokeless tobacco? Never used smokeless tobacco [email or web address] Information not available 08/05/2022 What is your exercise level? Occasional [email or web address] Information not available 08/05/2022 Mental Status Question Answer Note LastModified by Organization D etails LastModified Time Do you feel stressed (tense, restless, nervous, or anxious, or unable to sleep at night)? [id number] [email or web address] Information not available 08/05/2022 Family History Relationship Description Onset Age of this Age Resolved Age Notes LastModified by Organization Details LastModified Time Mother Myocardial infarction dec [email or web address] Not available 08/05 13:03:49 Mother Kidney disease [...] ICD10 Code Diagnosis IMO Codes Diagnosis Note [id number] Sanket Schaeffer Jr, MD [facility] [address] [place] [phone] 08/05/2022 12:30:55 08/05/2022 13:26:38 Benign prostatic hyperplasia with outflow obstruction 187604931 N40.1 Patient with lower urinary tract symptoms due to BPH. He is doing well on the tamsulosin and is to continue. Erectile dysfunction 860 104292 F52.21 patient with history of erectile dysfunctio n. He states he does well with the sildenafil 100 mg p.r.n.. [id number] Sanket Schaeffer Jr, MD [facility] [address] [place] [phone] 7 02/06/2023 13:40:33 02/06/2023 14:19:48 Prostate specific antigen above reference range 194714902 R97.20 Patient with history of elevated PSA. [...] tract symptoms due to benign prostatic hypertrophy 0595050286 9101 N40.1 patient with history of BPH. He is voiding well on the tamsulosin and is to continue. Erectile dysfunction 860 199280 F52.21 patient with history of erectile dysfunctio n. He states he does well with the sildenafil 100 mg p.r.n.. [id number] Sanket Schaeffer Jr, MD [facility] [address] [address] 08/13/2023 08:41:10 08/13/2023 09:26:44 Prostate specific antigen above reference range 631993145 R97.20 Patient with history of elevated PSA. His recent PSA 2 weeks ago Was 11.5. This is we will higher than his previous of 9.6. It has been as high as 10.1 in the past. We again discussed prostate biopsy versus monitoring and he wishes to continue monitoring . Lower urin matty tract symptoms due to benign prostatic hypertrophy 8996368134 9101 N40.1 patient with history of BPH. [...] direction at this time. Erectile dysfunction 860 957329 F52.21 patient with history of erectile dysfunctio n. He states he does well with the sildenafil 100 mg p.r.n.. We have discussed not taking the sildenafil within 4 hours of the Flomax. [id number] Sanket Schaeffer Jr, MD [facility] [address] [address] 02/13/2024 09:03:41 02/13/2024 09:40:36 Prostate specific antigen above reference range 903548992 R97.20 Patient with history of elevated PSA. [...] tract symptoms due to benign prostatic hypertrophy 9096229734 9101 N40.1 patient with history of BPH. patient states some increased frequency and nocturia. patient has not improved in the past with increasing his tamsulosin 2 a day or with oxybutynin . He complains of decreased flow. We would discussed other options but they require surgical procedures as well. [id number] Sanket Schaeffer Jr, MD [facility] [address] [phone] 11/12/2023 09:13:53 11/12/2023 10:07:59 Lower urinary tract symptoms due to benign prostatic hypertrophy 2214077548 9101 N40.1 patient with history of BPH. [...] Prostate s pecific antigen above reference range 693322133 R97.20 Patient with history of elevated PSA. [...] PSA in 3 months. Erectile dysfunction 860 267034 F52.21 patient with history of erectile dysfunctio n. He states he does well with the sildenafil 100 mg p.r.n.. We have discussed not taking the sildenafil within 4 hours of the Flomax. [id number] [facility] [address] [facility] [address] [place] [address] 06/24/2024 09:55:04 06/24/2024 10:30:41 Inactive tuberculosis 99442182 Z22.7 History of being in the . Patient is negative for any pulmonary symptoms. Chest xray normal. Patient is on suppressiv e medication s for PMR. Patient takes Warfarin due to his mechanical heart valve. Will start Isoniazid and Vitamin B6. Will see patient back in 1 month. Plan will be to complete a 9 month regimen. All questions answered. [id number] [facility] [facility] [address] [place] [address] 07/23/2024 09:14:15 07/23/2024 09:34:06 Inactive tuberculosis 48780979 Z22.7 History of being in the . [...] 1 month. 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 Will monitor weight regularly and check for adverse effects. [id number] [facility] [facility] [address] [place] [address] 08/20/2024 10:25:17 08/20/2024 10:44:10 Inactive tuberculosis 61728622 Z22.7 History of being in the . [...] 1 month. 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 Will monitor weight regularly and check for adverse effects. [id number] [facility] [facility] [address] [place] [address] 10/21/2024 10:32:10 10/21/2024 10:47:20 Inactive tuberculosis 98304170 Z22.7 History of being in the . [...] 2 months. 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 Will monitor weight regularly and check for adverse effects. [id number] [facility] [facility] [address] [place] [address] 12/21/2024 13:36:37 12/21/2024 13:51:52 Inactive tuberculosis 50190142 Z22.7 History of being in the . [...] 3 months. 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 Will monitor weight regularly and check for adverse effects. [id number] Nery [place] in, [employer] [facility] Infecti[facility] s Disease -[address] [facility] [address] [place] [address] 03/22/2025 11:00:19 03/22/2025 11:17:03 Inactive tuberculosis 46776248 Z22.7 History of being in the . [...] up required. 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 Will monitor weight regularly [...] *SELF PAY* Ri khushi Lezama 03/24/2025 2 [facility] () Martin Lezama [id number] Martin Lezama 03/19/2025 1 [place] (MEDICARE[place] Martin Lezama [id number] Martin Lezama Notes Date Note Type Note [...] fevers. Nery Lee APRN [address], [place], [address], [facility] & [place] 07/23/2024 09:37:00 08/20/2024 text/html ROS as noted [...] treatment. Nery Lee APRN [address], [place], [address], [facility] 08/20/2024 10:49:26 10/21/2024 text/html ROS as noted [...] cancer. Nery Lee APRN [address], [place], [address], [facility] 10/21/2024 11:35:54 12/21/2024 text/html ROS as noted [...] cancer. Nery Lee APRN [address], [place], [address], [facility] & [place] 12/21/2024 13:51:11 03/22/2025 text/html ROS as noted [...] parasthesia. Nery Lee APRN [address], [place], [address], [facility] & [place] 03/24/2025 11:59:01
[2025-07-13 23:33] LABS: INR 2.18 (0.9-1.1); Prothrombin Time 22.8 seconds (10.1-12.5)
[2025-07-13] MEDS: IOPAMIDOL-370 (76%);100ML BOTTLE 75 ML IV (23:41)
[2025-07-13] MEDS: SODIUM CHLORIDE 0.9% 10ML SYR (RAD ONLY) 10 ML IV (23:41)
[2025-07-13 23:56] LABS: Alanine Aminotransferase 47 U/L (12-78); Albumin Level 3.5 g/dl (3.5-5.0); Albumin/Globulin Ratio 1.0 (1.1-1.8); Alkaline Phosphatase 108 U/L (38-126); Anion Gap 11.5 mEq/L (5-15); Aspartate Amino Transferase 210 U/L (17-59); Bilirubin,Total 1.2 mg/dl (0.2-1.3); Blood Urea Nitrogen 18 mg/dl (9-20); Calcium 8.7 mg/dl (8.4-10.2); Carbon Dioxide 24 mmol/L (22.0-30.0); Chloride 99 mmol/L (98-107); Creatinine Clearance Estimated 75 mL/min (50-200); Creatinine,Serum 0.90 mg/dl (0.66-1.25); Estimated Glomerular Filt Rate 82 ml/min (>60); GFR (African American) 99 ML/MIN (>60); Globulin 3.6 g/dL (1.3-3.2); Glucose 206 mg/dl (74-100); Potassium 3.5 mmoL/L (3.5-5.1); Sodium 131 mmol/L (136-145); Total Protein,Serum 7.1 g/dl (6.3-8.2)
[2025-07-14 00:14] LABS: Total Cells Counted 100
--- NOTE | 2025-07-14 00:42 | P.HP_ITS ---
<Statement entered by Tristan Alston MD - 07/17/25 15:39> Agree with plan of care as outlined by the RESIDENTIAL SALES REP. <Statement entered by Izabella Saenz APRN - 07/14/25 14:29> Patient continues to have intermittent low back pain. He is receiving Percocet 1?2 tabs as needed, Toradol every 12 as needed, methocarbamol 1 g twice daily as needed, lidocaine patch every 24 hour. Patient noted to have anemia on admission hemoglobin of 7.8, stable today at 7.9. Patient does have artificial heart valve and is on chronic anticoagulation with warfarin bridging with Lovenox. INR is subtherapeutic at 2.1, continued warfarin and Lovenox today. Patient has had no more signs of bleeding. He denies melena, BRBPR, hematemesis. Frances Wong APRN with pain management assessed patient and feels that this is just postsurgical pain, no complication or surgical issue. Surgical site clean dry and intact, no edema, no drainage noted. CT abdomen/pelvis shows proctocolitis, patient has history of prostate cancer with radiation treatment. Patient last bowel movement 2 days ago. Currently receiving MiraLAX scheduled daily and docusate daily. Patient abdomen soft and nontender. History of Present Illness *Admission Date: 07/14/25 *Reason for visit:: Pain *History of present illness: Patient is a 79-year-old male with past medical history significant for lumbar compression fractures, prostate cancer, type 2 diabetes, hypertension, hyperlipidemia, mechanical aortic valve on chronic anticoagulation with warfarin. Presents to [facility] due to pain after undergoing kyphoplasty. On 07/04/[address] Negro. He underwent L2 and L5 kyphoplasty. Patient reported bleeding post surgical procedure. He has been transitioning back to warfarin. He presented to the emergency department yesterday requiring a suture due to bleeding. He has also been complaining of pain since surgical procedure. Currently on hydrocodone 5 and methocarbamol without any symptomatic relief. He also started having lower back pain with associated nausea dry heaving. Patient denies any known alleviating or aggravating factors. Denies fever, chills, chest pain. Initial ED workup included laboratory studies which resulted with a WBC 10.9, hemoglobin 7.8, 22.8, INR 2.18, sodium 131, glucose 206 AST 210And treat as needed per sliding scale. And treat as he was denies any known alleviating or aggravating factors. PT 22.8, INR sodium 131, sodium [address] abdomen and pelvis revealing pleural effusion, mild presacral edema and inflammation extending into pelvis which may be post therapeutic or secondary proctocolitis. Remaining findings chronic. CT lumbar spine obtained without any acute findings. [facility] Disclaimer: The information contained in this section may have been updated after the patient was seen, as this information can be updated by other users. Medical History Compression fracture of L3 vertebra Rheumatoid arthritis Compression fracture of L1 lumbar vertebra Low back pain Prostate CA Strain of lumbar paraspinal muscle Latent tuberculosis Abnormal EKG Sinus bradycardia HLD (hyperlipidemia) HTN (hypertension) correction current use of anticoagulant Surgical History H/O mechanical aortic valve replacement Family History Other No significant family history Social History Smoking Status: Unknown if ever smoked alcohol intake: never substance use type: denies use current occupational status: retired and other Travel in the last 8 weeks?: None household members: spouse housing: house caffeine: Yes Contact w/someone who lives/traveled outside [place] past 30 days?: No Exposure to someone with infectious disease in past 14 days?: No Do you have a fever (greater than 100.4 F or 38 C)?: No Have you tested positive for COVID-19?: No Exposed to someone with COVID-19 in past 14 days?: No Do you have a sore throat?: No Do you have a cough?: No Do you have any weakness?: No Are you experiencing any nausea/vomitting?: No Do you have any diarrhea?: No Are you experiencing any unusual bleeding?: No Do you have any muscle aches/pain?: No Do you have any abdominal pain?: No Are you experiencing loss of taste or smell?: No Other Medical History Have you received the Flu Vaccine for this season: Yes Have you received the Pneumonia Vaccine: Yes Review of Systems Review of Systems Review of systems:: pertinent systems reviewed and negative unless documented below Constitutional Constitutional: Reports system reviewed and no additional complaints, except as documented Eyes Eyes: Reports system reviewed and no additional complaints, except as documented ENT Ears, Nose, Mouth, and Throat: Reports system reviewed and no additional complaints, except as documented *Cardiovascular Cardiovascular: Reports system reviewed and no additional complaints, except as documented *Respiratory Respiratory: Reports system reviewed and no additional complaints, except as documented *Gastrointestinal Gastrointestinal: Reports system reviewed and no additional complaints, except as documented *Genitourinary Genitourinary: Reports system reviewed and no additional complaints, except as documented *Musculoskeletal Musculoskeletal: Reports system reviewed and no additional complaints, except as documented Integumentary/Breasts Skin/Breast: Reports system reviewed and no additional complaints, except as documented *Neurologic Neurologic: Reports system reviewed and no additional complaints, except as documented Psychiatric Psychiatric: Reports system reviewed and no additional complaints, except as documented and Reports as per HPI Endocrine Endocrine: Reports system reviewed and no additional complaints, except as documented and Reports as per HPI Hematologic/Lymphatic Hematologic/Lymphatic: Reports as per HPI and Reports easy bruising Allergic/Immunologic Allergic/Immunologic: Reports as per HPI Meds Home Medications and Allergies Home Medications ?Medication ?Instructions ?Recorded ?Confirmed ?Type tamsulosin 0.4 mg capsule 0.8 mg PO DAILY 09/10/23 History oxybutynin chloride 10 mg 10 mg PO DAILY 09/23/2406/17 History tablet,extended release 24 hr leuprolide acetate (6 month) 45 mg 45 mg IM Q6M 07/14/25 History intramuscular syringe kit (Lupron Depot) lisinopril 2.5 mg tablet 2.5 mg PO DAILY #90 tabs 04/0807/14/25 Rx hydrochlorothiazide 25 mg tablet 25 mg PO DAILY #90 ta bs 12/27/24 07/14/25 Rx abatacept 125 mg/mL subcutaneous 125 mg SQ MONTHLY 07/14/25 History auto-injector (Orencia ClickJect) atenolol 50 mg tablet 50 mg PO DAILY BLOOD PRESSUR E #90 02/28/25 07/14/25 Rx tabs simvastatin 20 mg tablet 20 mg PO DAILY #90 tabs 0705/0907/14/25 Rx methocarbamol 750 mg tablet 750 mg PO TID #90 tabs 06/0907/14/25 Rx glipizide 10 mg tablet 10 mg PO DAILY #90 tabs 04/1607/14/25 Rx folic acid 1 mg tablet 1 mg PO DAILY 05/23/2507/14 History methotrexate sodium 2.5 mg tablet 10 mg PO WEEKLY 05/0907/14/25 History denosumab 60 mg/mL subcutaneous 60 mg SQ Q6M 07/05/25 07/14/25 History syringe (Prolia) hydrocodone 5 mg-acetaminophen 325 1 tab PO Q8H PRN pa in #90 tabs 07/05/25 07/14/25 Rx mg tablet calcium 600 mg (as 1 cap PO BID 07/14/25 History carbonate)-vitamin D3 12.5 mcg (500 unit) capsule (Calcium with Vit D3) dapagliflozin propanediol 10 mg 10 mg PO DAILY 07/14/25 History tablet (Farxiga) enoxaparin 100 mg/mL subcutaneous 90 mg SQ BID 07/14/25 History syringe warfarin 4 mg tablet 4.5 mg PO DAILY 07/14/25 History New Prescriptions to Start Prescriptions: Allergies Allergy/AdvReac Type Severity Reaction Status Date / Time No Known Allergies Allergy Verified 07/12/25 15:21 Exam Data for Last 24 hours Vital signs and Labs for Last 24 Hours: Temp Pulse Resp BP Pulse Ox O2 Del Method 97.9 F 58 L 18 189/76 H 96 Room Air 07/13/25 22:58 07/13/25 22:58 07/13/25 22:58 07/13/25 22:58 07/13/25 22:58 07/13/25 22:58 Laboratory Results - last 24 hr 07/13/25 23:00: WBC 10.9 H, RBC 2.62 L, Hgb 7.8 L, Hct 24.1 L, MCV 92.0, MCH 29.8, MCHC 32.4, RDW 22.7 H, Plt Count 315, MPV 9.4, Neut % (Auto) 85.0 H, Lymph % (Auto) 4.5 L, [place] % (Auto) 7.8, Eos % (Auto) 0.7, Baso % (Auto) 0.4, Neut # (Auto) 9.2 H, Lymph # (Auto) 0.5 L, [place] # (Auto) 0.9, Eos # (Auto) 0.1, Baso # (Auto) 0.0, Total Counted 100, Neutrophils % (Manual) 82 H, Band Neutrophils % 4, Lymphocytes % (Manual) 7 L, Monocytes % (Manual) 7, PT 22.8 H, INR 2.18 H, Sodium 131 L, Potassium 3.5, Chloride 99, Carbon Dioxide 24, Anion Gap 11.5, BUN 18, Creatinine 0.90, Estimated Creat Clear 75, Estimated GFR 82, Est GFR ( Amer) 99, Glucose 206 H, Calcium 8.7, Total Bilirubin 1.2, AST 210 H D, ALT 47 D, Alkaline Phosphatase 108, Total Protein 7.1, Albumin 3.5, Globulin 3.6 H, Albumin/Globulin Ratio 1.0 L I & O for Last 24 hours: Intake & Output 07/11/25 07/12/25 07/13/25 07/14/25 23:59 23:59 23:59 23:59 Weight 86.183 kg Constitutional Constitutional: mild distress *Routine HEENT Exam Head: Present normocephalic Eye: Present EOMI and PERRL ENT: Present mucous membranes moist *Routine Neck Exam Neck: Present supple and full ROM *Routine Respiratory Exam Respiratory: Present normal respiratory effort *Routine Cardiovascular Exam Cardiovascular: Present RRR, Normal S1 and Normal S2 *Routine Abdominal Exam Abdominal: Present soft and normoactive bowel sounds *Routine Rectal Exam Rectal:: deferred *Routine Genitalia Exam Genitalia:: deferred Routine Back/Spine/Pelvis Exam Back/Spine: Present muscle spasm Comments: Status post kyphosis surgery *Routine Skin Exam Skin: Present intact *Routine Neurological Exam Neurological: Present alert, oriented X3 and CN II-XII intact Assessment and Plan *Assessment and plan (1) Anemia, blood loss: Status: Acute Category: Medical Code(s): D50.0 - Iron deficiency anemia secondary to blood loss (chronic) (2) Post-op bleeding: Status: Acute Category: Medical (3) Post-operative pain: Status: Acute Category: Medical Code(s): G89.18 - Other acute postprocedural pain (4) Acute low back pain: Status: Acute Category: Medical Code(s): M54.50 - Low back pain, unspecified (5) Elevated serum aspartate aminotransferase level: Status: Acute Category: Medical Code(s): R74.01 - Elevation of levels of liver transaminase levels (6) Hyponatremia: Status: Acute Category: Medical Code(s): E87.1 - Hypo-osmolality and hyponatremia (7) Mechanical heart valve present: Status: Acute Category: Surgical Code(s): Z95.2 - Presence of prosthetic heart valve (8) [employer] current use of anticoagulant: Status: Chronic Category: Medical Code(s): Z79.01 - correction (current) use of anticoagulants (9) HTN (hypertension): Status: Chronic Qualifiers: Hypertension type: essential hypertension Qualified Code(s): I10 - Essential (primary) hypertension Category: Medical Code(s): I10 - Essential (primary) hypertension (10) HLD (hyperlipidemia): Status: Chronic Qualifiers: Hyperlipidemia type: mixed hyperlipidemia Qualified Code(s): E78.2 - Mixed hyperlipidemia Category: Medical Code(s): E78.5 - Hyperlipidemia, unspecified (11) Diabetes mellitus type 2 in nonobese: Status: Acute Category: Medical Code(s): E11.9 - Type 2 diabetes mellitus without complications (12) Chronic steroid use: Status: Acute Category: Medical (13) BPH (benign prostatic hyperplasia): Status: Acute Qualifiers: Lower urinary tract symptom detail: nocturia Lower urinary tract symptom presence: symptoms present Qualified Code(s): N40.1 - Benign prostatic hyperplasia with lower urinary tract symptoms; R35.1 - Nocturia Category: Medical Code(s): N40.0 - Benign prostatic hyperplasia without lower urinary tract symptoms Plan 7. Anemia blood loss/postop bleeding: Patient chronically anticoagulated with warfarin currently transitioning status post kyphoplasty procedure-> hemoglobin notable drop from 10 to 7.8. Continue to monitor for any further bleeding. Monitor hemoglobin-less than 7, type and screen transfuse 1 packed red blood cell. 2. Postoperative pain/acute low back pain: Imaging studies as noted above without any acute findings. Patient with complaint of worsening pain since surgical procedure. Current pain regime with hydrocodone 5 and methocarbamol. Received IV Dilaudid while in the emergency department with pain relief. Will continue IV and p.o. pain medication for management. 3. AST: Elevated AST 210-significant jump from yesterday laboratory findings of 51. ALT alkaline phosphatase and total bilirubin within normal limits. Denies abdominal pain. Continue to monitor trend labs. 4. Hyponatremia: Sodium level 131, mildly decreased-asymptomatic. Will continue to monitor. Holding hydrochlorothiazide in the setting of hyponatremia will continue to monitor and will resume when appropriate. 5. HTN/HLD: Normotensive, resume antihypertensive medication and statin therapy as appropriate. Although as noted above hydrochlorothiazide may be appropriate to hold due to as noted above. 6. Type 2 diabetes mellitus: Insulin sliding scale, Accu-Cheks ACHS. 7. BPH: Patient denies acute issue, resume home medication. 9. DVT prophylaxis: Patient on chronic anticoagulation with warfarin I personally discussed the management of this patient with the emergency department provider. Will continue to monitor hemoglobin level, replace if hemoglobin drops below 7. Pain control, electrolyte monitoring, AST elevation, laboratory monitoring.
--- NOTE | 2025-07-14 00:44 | PC.NURSE ---
Pt provided urinal for UA, aware he will be admitted
[2025-07-14 01:01] VITALS: BP 187/77; PULSE 62; RESP 17; TEMP 36.6; O2SAT 97
[2025-07-14 01:09] LABS: Microscopic, Urine URINE MICROSCOPIC (MICROSCOPIC)
[2025-07-14 01:11] LABS: Bilirubin,Urine Negative (Negative); Color,Urine YELLOW (Yellow); Glucose,Urine (UA) 3+ (Negative); Ketones,Urine 1+ (Negative); Leukocyte Esterase,Urine Negative (Negative); PH,Urine 6.5 (5.0-8.5); Protein,Urine Negative (Negative); Specific Gravity, Urine 1.010 (1.005-1.030); Urobilinogen,Urine 0.2 EU/dl (0.2)
[2025-07-14 01:31] VITALS: BP 166/63; PULSE 67; RESP 16; TEMP 36.5; O2SAT 96; BMI 24.5
[2025-07-14 01:44] LABS: Bacteria,Urine Trace /lpf; Squamous Epithelial Cell,Urine Occasional #/hpf (0-5); WBC,Urine Occasional #/hpf (0-3)
[2025-07-14] MEDS: HYDROMORPHONE 2MG/ML SYRINGE 0.5 MG IV ×3 (01:59→10:14)
[2025-07-14 04:00] VITALS: BP 191/83; PULSE 64; RESP 17; TEMP 36.9; O2SAT 97; BMI 24.5
[2025-07-14] MEDS: OXYCODONE 5MG IMMEDIATE RELEASE TABLET 5 MG PO ×3 (04:10→12:56)
[2025-07-14 08:00] VITALS: BP 172/76; PULSE 71; RESP 18; TEMP 36.4; O2SAT 93
[2025-07-14] MEDS: DOCUSATE SODIUM 100 MG CAPSULE PO (08:06)
[2025-07-14] MEDS: DAPAGLIFLOZIN PROPANEDIOL 10 MG TABLET PO (09:04)
[2025-07-14] MEDS: LISINOPRIL 2.5MG TABLET 2.5 MG PO (09:05)
[2025-07-14] MEDS: ATENOLOL 50MG TABLET 50 MG PO (09:05)
[2025-07-14 10:05] LABS: Hematocrit 25.3 % (42.0-52.0); Hemoglobin 7.9 g/dL (14.1-18.0); Immature Granulocytes % 1.6 %; Mean Corpuscular HGB Conc 31.2 g/dL (31.8-35.4); Mean Corpuscular Hemoglobin 29.4 pg (27.0-31.2); Mean Corpuscular Volume 94.1 fl (80-94); Nucleated Red Blood Cells % 0.7 %; Platelet Count 285 K/mm3 (142-424); Red Blood Count 2.69 M/mm3 (4.60-6.20); Red Cell Distribution Width-SD 79.8 fL; White Blood Count 10.0 K/mm3 (4.8-10.8)
[2025-07-14 10:22] LABS: Alanine Aminotransferase 45 U/L (12-78); Albumin Level 3.4 g/dl (3.5-5.0); Albumin/Globulin Ratio 0.9 (1.1-1.8); Alkaline Phosphatase 82 U/L (38-126); Anion Gap 12.6 mEq/L (5-15); Aspartate Amino Transferase 32 U/L (17-59); Bilirubin,Total 0.9 mg/dl (0.2-1.3); Blood Urea Nitrogen 15 mg/dl (9-20); Calcium 8.7 mg/dl (8.4-10.2); Carbon Dioxide 27 mmol/L (22.0-30.0); Chloride 97 mmol/L (98-107); Creatinine Clearance Estimated 76 mL/min (50-200); Creatinine,Serum 0.90 mg/dl (0.66-1.25); Estimated Glomerular Filt Rate 82 ml/min (>60); GFR (African American) 99 ML/MIN (>60); Globulin 3.6 g/dL (1.3-3.2); Glucose 209 mg/dl (74-100); Potassium 3.6 mmoL/L (3.5-5.1); Sodium 133 mmol/L (136-145); Total Protein,Serum 7.0 g/dl (6.3-8.2)
--- NOTE | 2025-07-14 10:52 | HMH.PTEV ---
Physical Therapy Evaluation Rehab PT IP Evaluation Start: 07/14/25 09:34 Freq: ONCE Status: Active Protocol: Document 07/14/25 10:48 AILYN (Rec: 07/14/25 10:52 AILYN [id number]) Subjective/History History History Per H&P: Patient is a 79-year-old male with past medical history significant for lumbar compression fractures, prostate cancer, type 2 diabetes, hypertension, hyperlipidemia, mechanical aortic valve on chronic anticoagulation with warfarin. Presents to [facility] due to pain after undergoing kyphoplasty. On 07/04/[address] Negro. He underwent L2 and L5 kyphoplasty. Patient reported bleeding post surgical procedure. He has been transitioning back to warfarin. He presented to the emergency department yesterday requiring a suture due to bleeding. He has also been complaining of pain since surgical procedure. Currently on hydrocodone 5 and methocarbamol without any symptomatic relief. He also started having lower back pain with associated nausea dry heaving. Patient denies any known alleviating or aggravating factors. Denies fever, chills, chest pain. Initial ED workup included laboratory studies which resulted with a WBC 10.9, hemoglobin 7.8, 22.8, INR 2. 18, sodium 131, glucose 206 AST 210And treat as needed per sliding scale. And treat as he was denies any known alleviating or aggravating factors. PT 22.8, INR sodium 131, sodium [address] abdomen and pelvis revealing pleural effusion, mild presacral edema and inflammation extending into pelvis which may be post therapeutic or secondary proctocolitis. Remaining findings chronic. CT lumbar spine obtained without any acute findings. Subjective Subjective Pt reports he lives with his in a single-story home with 0 ROMARIO. Pt normally IND with mobility with RW use. New diagnosis of No cancer in past 12 months? [facility] How much help from another person do you currently need... Turning from your A little back to your side while in a flat bed without using bedrails? Moving from lying on A little back to sitting on the side of a flat bed without using bedrails? Moving to and from a A little bed to a chair ( including a wheelchair)? Standing up from a A lot chair using your arms? (e.g., wheelchair, bedside chair) Walking in hospital A lot room? Climbing 3-5 steps A lot with a railing? Mobility Score 15 Mobility Level [facility] Mobility 4 Move to chair/commode Mobility Calculator Rehab PT IP Eval Objective Appearance Patient Behavior Appropriate,Cooperative Patient Orientation Person,Situation Difficulty following none instructions Speech Pattern Clear Ambulation Patient Able to No Ambulate Balance Ability to Arise Able, uses arms to help Standing Balance Unsteady Transfers Bed Transfer Ability Moderate x 1 (50% assist) Rehab PT IP prob,goals,plan Problems Date of Evaluation: 07/14/25 PT IP Problems Bed Mobility,Transfers,Gait,Balance,Self care,Safety Rehab Potential Rehab Potential Good Plan PT Intervention Plan Bed Mobility,Transfers,Gait,Balance,Self care,Safety, Therapeutic Exercise Other Intervention 1-2 times Plan PT Plan Frequency Daily Duration LOS Discharge Goals Bed Transfer Ability Supervision/Stand by Sit to Stand Chair Supervision/Stand by Transfer Ability Ambulation Assistive Rolling Walker Device Ambulation Distance 10 (feet) Discharge Plan PT Discharge Plan PT mobility assessment was limited by high pain levels at this time. Pt able to sit statically at EOB but not able to ambulate or stand d/t severe LBP. At this time, pt is most appropriate for rehabilitation placement d/ t AMPAC score and current mobility level. However, once pt's pain levels are controlled and pt is able to demo improved mobility, pt may be appropriate to return home with 24/7 assist from and HH PT services. Pt would benefit from skilled acute care PT while at [facility] to address mobility deficits and prevent further functional decline. Eval Complexity Eval Charge Codes 72460 - Moderate Complexity PHYSICIAN CERTIFICATION: I certify the specified therapy services for Martin Lezama are required, authorized, and reviewed every 30 days.
[2025-07-14 10:53] LABS: Total Cells Counted 100
[2025-07-14 10:56] LABS: Anisocytosis 1+; Rouleaux 1+
[2025-07-14] MEDS: POLYETHYLENE GLYCOL 3350 17 GM PACKET PO (11:09)
[2025-07-14] MEDS: humaLOG 100 UNITS/ML 10ML VIAL (SSI) SUBCUT ×2 (11:16→16:07)
[2025-07-14 11:35] LABS: POC Glucose,Bedside 201 gm/dL (70-110)
--- NOTE | 2025-07-14 11:50 | HMH.PHAINT1 ---
Pharmacy Intervention Comments: MEDICATION RECONCILIATION COMPLETED ON PATIENT USING EXTERNAL FILL HISTORY FROM PHARMACY. -[facility], [place]
[2025-07-14] MEDS: METHOCARBAMOL 500MG TABLET 1000 MG PO (13:18)
--- NOTE | 2025-07-14 14:37 | SW/DCPLANNER ---
Addendum entered by Teodora Barksdale 07/18/25 14:09: [facility] [employer] [employer] Addendum entered by Teodora Barksdale 07/18/25 11:51: Faxed patient's information to [facility]. Will update once i hear back if they can accept patient or not. [facility] [employer] Addendum entered by Jennifer Escalona 07/18/25 11:11: I followed up w/ patient and again this AM regarding placement at time of discharge. Patient is not agreeable to placement and prefers to return home w/ . Patient is agreeable to home health services (no agency preference). Patient has also requested a bedside commode from [facility]. Per MD patient will discharge tomorrow pending no setbacks. CM will continue to follow up. Original Note: I spoke w/ patient's regarding plans once medically stable for discharge. Patient is currently resting. PT evaluated patient and recommended SNF if mobility did not improve. Per patient ambulates independently at home w/ a rollator. expressed an interest in outpatient PT services once medically stable discharge. CM will continue to follow up regarding discharge plans. Discharge date is unknown at this time.
[2025-07-14] MEDS: KETOROLAC 30MG/ML VIAL 30 MG IV (15:58)
[2025-07-14] MEDS: LIDOCAINE 5% TRANSDERMAL PATCH 1 EACH TD (15:58)
[2025-07-14 16:00] VITALS: BP 171/79; PULSE 71; RESP 18; TEMP 36.6; O2SAT 92
[2025-07-14 16:09] LABS: POC Glucose,Bedside 164 gm/dL (70-110)
[2025-07-14] MEDS: OXYCODONE 5MG W/APAP 325MG TABLET 2 EACH PO ×2 (17:00→21:19)
--- NOTE | 2025-07-14 17:27 | PC.NURSE ---
Pt is A&Ox4. Vital signs stable tolerating room air. Incision on back from previous procedure with gauze and dried area of blood noted. No new signs of bleeding. Pt has complained of back pain this shift. PRN pain medication given per pt request and NOV. Lidocaine patch in place on back per NOV. PT consulted but pt wasn't able to work with them d/t pain. Pt was offered turn and repositioning to attempt to help with pain. Pt refused. Pt was able to pivot to [facility] with staff assistance. Pt resting supine in bed with no further needs voiced at this time. Call light within reach.
[2025-07-14 20:00] VITALS: BP 129/52; PULSE 67; RESP 16; TEMP 37; O2SAT 93
[2025-07-14 20:09] LABS: POC Glucose,Bedside 157 gm/dL (70-110)
[2025-07-14] MEDS: TAMSULOSIN 0.4MG CAPSULE 0.8 MG PO (20:11)
[2025-07-14] MEDS: PRAVASTATIN 40MG TAB 40 MG PO (20:12)
[2025-07-15] VITALS (17 sets, daily range): BP systolic 98–157; BP diastolic 40–69; PULSE 52–58; RESP 12–18; TEMP 36.4–37.2; O2SAT 92–98; BMI 24.5
[2025-07-15] MEDS: OXYCODONE 5MG W/APAP 325MG TABLET 2 EACH PO ×4 (02:47→19:57)
[2025-07-15] MEDS: METHOCARBAMOL 500MG TABLET 1000 MG PO ×3 (02:50→20:07)
--- NOTE | 2025-07-15 04:27 | PC.NURSE ---
patient BP 98/40 at this time, patient states he is hurting and feels a little drowsy but otherwise ok, hospitalist notified
[2025-07-15 05:44] LABS: POC Glucose,Bedside 175 gm/dL (70-110)
[2025-07-15] MEDS: humaLOG 100 UNITS/ML 10ML VIAL (SSI) SUBCUT ×4 (05:46→21:09)
[2025-07-15 06:27] LABS: INR 3.37 (0.9-1.1); Prothrombin Time 34.2 seconds (10.1-12.5)
[2025-07-15] MEDS: KETOROLAC 30MG/ML VIAL 30 MG IV ×2 (06:41→19:56)
[2025-07-15] MEDS: ATENOLOL 50MG TABLET 50 MG PO (08:12)
[2025-07-15] MEDS: DAPAGLIFLOZIN PROPANEDIOL 10 MG TABLET PO (08:12)
[2025-07-15] MEDS: DOCUSATE SODIUM 100 MG CAPSULE PO (08:12)
[2025-07-15] MEDS: POLYETHYLENE GLYCOL 3350 17 GM PACKET PO (08:13)
[2025-07-15] MEDS: OXYCODONE 5MG W/APAP 325MG TABLET 1 EACH PO (08:13)
[2025-07-15] MEDS: LISINOPRIL 2.5MG TABLET 2.5 MG PO (08:13)
[2025-07-15] MEDS: METHYLPREDNISOLONE SOD SUCC 40MG VIAL 60 MG IV (08:21)
[2025-07-15 10:39] LABS: Alanine Aminotransferase 39 U/L (12-78); Albumin Level 2.8 g/dl (3.5-5.0); Albumin/Globulin Ratio 0.9 (1.1-1.8); Alkaline Phosphatase 67 U/L (38-126); Anion Gap 11.7 mEq/L (5-15); Aspartate Amino Transferase 36 U/L (17-59); Bilirubin,Total 0.6 mg/dl (0.2-1.3); Blood Urea Nitrogen 22 mg/dl (9-20); Calcium 8.1 mg/dl (8.4-10.2); Carbon Dioxide 26 mmol/L (22.0-30.0); Chloride 98 mmol/L (98-107); Creatinine Clearance Estimated 76 mL/min (50-200); Creatinine,Serum 0.90 mg/dl (0.66-1.25); Estimated Glomerular Filt Rate 82 ml/min (>60); GFR (African American) 99 ML/MIN (>60); Globulin 3.2 g/dL (1.3-3.2); Glucose 151 mg/dl (74-100); Potassium 3.7 mmoL/L (3.5-5.1); Sodium 132 mmol/L (136-145); Total Protein,Serum 6.0 g/dl (6.3-8.2)
[2025-07-15 10:45] LABS: C-Reactive Protein 37.9 mg/L (0-4)
[2025-07-15] MEDS: WARFARIN 2MG TABLET 2 MG PO (11:21)
[2025-07-15 11:30] LABS: POC Glucose,Bedside 251 gm/dL (70-110)
[2025-07-15 11:47] LABS: Hematocrit 22.1 % (42.0-52.0); Hemoglobin 7.0 g/dL (14.1-18.0); Immature Granulocytes % 1.1 %; Mean Corpuscular HGB Conc 31.7 g/dL (31.8-35.4); Mean Corpuscular Hemoglobin 30.0 pg (27.0-31.2); Mean Corpuscular Volume 94.8 fl (80-94); Nucleated Red Blood Cells % 0.5 %; Platelet Count 296 K/mm3 (142-424); Red Blood Count 2.33 M/mm3 (4.60-6.20); Red Cell Distribution Width-SD 81.8 fL; White Blood Count 8.4 K/mm3 (4.8-10.8)
[2025-07-15 12:08] LABS: Total Cells Counted 100
[2025-07-15 12:09] LABS: Anisocytosis 1+; Hypochromasia 1+; Ovalocytes 1+
[2025-07-15] MEDS: LIDOCAINE 5% TRANSDERMAL PATCH 1 EACH TD (12:39)
--- NOTE | 2025-07-15 16:21 | P.PN_ITS ---
Subjective *Date: 07/15/25 *Time: 17:39 Interval history: Patient continues to have predominantly low back pain over the sacral, see presacral areas. Requiring pain regimen [id number]. Unable to sit up without pain. Will transfuse 2 units PRBC due to acute on chronic anemia due to some concern for watershed areas where chronic proctocolitis. Exam Data for Last 24 hours Vital signs and Labs for Last 24 Hours: Temp Pulse Resp BP Pulse Ox O2 Del Method O2 Flow Rate 98.2 F 53 L 18 145/58 H 93 L Room Air 2 07/15/25 15:58 07/15/25 15:58 07/15/25 15:58 07/15/25 15:58 07/15/25 15:58 07/15/25 15:58 07/14/25 05:00 Laboratory Results - last 24 hr 07/14/25 20:02: POC Glucose 157 H 07/15/25 05:37: POC Glucose 175 H 07/15/25 05:43: WBC 8.4, RBC 2.33 L, Hgb 7.0 L, Hct 22.1 L, MCV 94.8 H, MCH 30.0, MCHC 31.7 L, RDW 23.5 H, Plt Count 296, MPV 9.4, Neut % (Auto) 85.1 H, Lymph % (Auto) 4.4 L, [place] % (Auto) 8.9, Eos % (Auto) 0.1, Baso % (Auto) 0.4, Neut # (Auto) 7.1, Lymph # (Auto) 0.4 L, [place] # (Auto) 0.8, Eos # (Auto) 0.0, Baso # (Auto) 0.0, Total Counted 100, Neutrophils % (Manual) 85 H, Lymphocytes % (Manual) 5 L, Monocytes % (Manual) 10 H, Platelet Estimate Normal, RBC Morphology Not Reportable, Hypochromasia 1+, Anisocytosis 1+, Ovalocytes 1+, PT 34.2 H, INR 3.37 H, Sodium 132 L, Potassium 3.7, Chloride 98, Carbon Dioxide 26, Anion Gap 11.7, BUN 22 H D, Creatinine 0.90, Estimated Creat Clear 76, Estimated GFR 82, Est GFR ( Amer) 99, Glucose 151 H D, Calcium 8.1 L, Total Bilirubin 0.6, AST 36, ALT 39, Alkaline Phosphatase 67, C-Reactive Protein 37.9 H, Total Protein 6.0 L, Albumin 2.8 L D, Globulin 3.2, Albumin/Globulin Ratio 0.9 L 07/15/25 10:50: Blood Type A Positive, Antibody Screen Positive, Crossmatch (AHG) See Detail 07/15/25 11:19: POC Glucose 251 H I & O for Last 24 hours: Intake & Output 07/12/25 07/13/25 07/14/25 07/15/25 23:59 23:59 23:59 23:59 Intake Total 1240 / 1480 500 / 500 Output Total 1000 / 1400 500 / 500 Balance 240 / 80 0 / 0 Weight 86.183 kg 86.772 kg 86.727 kg Constitutional Constitutional: no acute distress *Routine HEENT Exam Head: Present normocephalic Eye: Present EOMI and PERRL ENT: Present mucous membranes moist *Routine Neck Exam Neck: Present supple; Absent lymphadenopathy *Routine Respiratory Exam Respiratory: Present CTA bilaterally *Routine Cardiovascular Exam Cardiovascular: Present RRR *Routine Abdominal Exam Abdominal: Present soft, normoactive bowel sounds and tenderness Comments: Left lower quadrant abdominal pain *Routine Extremities Exam Extremities: Absent cyanosis, clubbing or edema *Routine Skin Exam Skin: Present warm; Absent rash *Routine Neurological Exam Neurological: Present alert and oriented X3 Assessment and Plan *Assessment and plan (1) Mechanical heart valve present: Status: Acute Category: Surgical Code(s): Z95.2 - Presence of prosthetic heart valve (2) Compression fracture of L5 vertebra: Status: Acute Qualifiers: Encounter type: initial encounter Qualified Code(s): S32.050A - Wedge compression fracture of fifth lumbar vertebra, initial encounter for closed fracture Category: Medical Code(s): S32.050A - Wedge compression fracture of fifth lumbar vertebra, initial enco unter for closed fracture (3) Compression fracture of L2 lumbar vertebra: Status: Acute Qualifiers: Encounter type: initial encounter Qualified Code(s): S32.020A - Wedge compression fracture of second lumbar vertebra, initial encounter for closed fracture Category: Medical Code(s): S32.020A - Wedge compression fracture of second lumbar vertebra, initial enco unter for closed fracture (4) Acute low back pain: Status: Acute Category: Medical Code(s): M54.50 - Low back pain, unspecified Plan Martin Lezama is a 79-year-old male with a medical history significant for lumbar compression fractures, prostate cancer s/p radiation, type 2 diabetes, hypertension, hyperlipidemia, mechanical aortic valve on chronic anticoagulation with warfarin presented with lower abdominal, back pain that progressively got worse after L2, L5 balloon kyphoplasty on 07/08/2025 and was admitted for refractory pain. #Chronic lumbar compression fractures #Low back pain #Left lower quadrant abdominal pain #History of prostate cancer s/p radiation #Proctocolitis #Acute on chronic anemia ? Patient presented with progressive low back pain in addition to lower abdominal pain and was admitted for refractory pain. Not reproducible to palpation. ? CT abdomen/pelvis revealed mild circumferential wall thickening of the rectosigmoid, increased sacral edema and inflammation extending into the pelvis anteriorly. Lumbar spine CT shows stable chronic compression fractures. No evidence of overlying cellulitis, tender points over the low back or sacral area. ? Patient continues to have predominantly low back pain over the sacral, see presacral areas. Requiring pain regimen [id number]. Unable to sit up without pain. ? Patient is getting Toradol, Percocet, Solu-Medrol, Robaxin, lidocaine patch but continues to have breakthrough pain. ? Low back pain is not reproducible to palpation, patient states it is deeper. There is moderate tenderness left lower quadrant which may represent chronic proctocolitis from radiation therapy for prostate cancer. ? WBC normal 8.4, CRP marginally high at 37.9. Will hold off on antibiotics due to lower concern for infection at this time. ? However, hemoglobin down to 7.0 today. Patient had postprocedural bleeding at insertion sites for kyphoplasty, apparently woke up in a pool of blood at home. Hemoglobin 10.1 preprocedure. ? I do have suspicion that anemia may be exacerbating pain from proctocolitis due to poor perfusion state/watershed areas. Will transfuse blood and follow-up in response. ? Low back pain may also be due to protracted low back/lumbar strain. No radiculopathy, red flag symptoms. ? Ordered 2 units PRBC. Follow-up FOBT. ? Follow-up lactic acid. ? Continue Toradol 15 mg twice daily, [place] 5 to 10 mg, Robaxin 1000 mg 3 times daily as needed. Continue MiraLAX daily. #History of mechanical aortic valve #Chronic anticoagulation ? PT/INR at goal today INR 3.37. Discontinue therapeutic Lovenox bridge, continue warfarin 2 mg daily. #Type 2 diabetes ? PIPPA, JASE glucose checks. Hemoglobin A1c 7.0% #Rheumatoid arthritis ? Continue home methotrexate 2.5 mg weekly. Full code DVT prophylaxis: Home warfarin Home medications: Reconciled.
[2025-07-15 16:32] LABS: POC Glucose,Bedside 206 gm/dL (70-110)
[2025-07-15] MEDS: HYDROMORPHONE 2MG/ML SYRINGE 0.5 MG IV (18:28)
[2025-07-15] MEDS: TAMSULOSIN 0.4MG CAPSULE 0.8 MG PO (20:31)
[2025-07-15] MEDS: PRAVASTATIN 40MG TAB 40 MG PO (20:31)
[2025-07-15] MEDS: 0.9 % SODIUM CHLORIDE 250 ML 25 ML IV (20:45)
[2025-07-15 21:18] LABS: POC Glucose,Bedside 179 gm/dL (70-110)
[2025-07-16] VITALS (16 sets, daily range): BP systolic 105–142; BP diastolic 41–70; PULSE 53–99; RESP 12–18; TEMP 36.6–37.2; O2SAT 56–99; BMI 24.5
[2025-07-16] MEDS: OXYCODONE 5MG W/APAP 325MG TABLET 2 EACH PO ×2 (00:10→08:32)
[2025-07-16] MEDS: HYDROMORPHONE 2MG/ML SYRINGE 0.5 MG IV ×3 (00:11→21:25)
[2025-07-16 01:28] LABS: Hematocrit 23.2 % (42.0-52.0); Hemoglobin 7.6 g/dL (14.1-18.0)
[2025-07-16] MEDS: METHOCARBAMOL 500MG TABLET 1000 MG PO ×4 (03:08→21:02)
[2025-07-16] MEDS: 0.9 % SODIUM CHLORIDE 250 ML 25 ML IV (03:15)
--- NOTE | 2025-07-16 05:01 | PC.NURSE ---
Pt. is alert and orientated x 4. Pt has alternated from room air to 2 liters of oxygen per N/C. Pt. c/o severe back pain. Pt. needing pain meds around the clock. Pt. had a Kyphoplasty procedure one week ago and has been in severe pain since 4 days post procedure. Pt. Medicated per NOV. Pt. getting some relief of pain from meds and repositioning in the bed. Pt states his pain is sharp and is having a lot of back spasms. warm compress applied to back/right hip area. Pt. voiding per urinal. Pt. has HX of anemia. Pt. getting 2 units of PRBC overnight. Tolerating transfusions well. while pt. getting tranfusions he is on Oxygen 2 liters per N/C, otherwise he is on room air. Pt. needs assist x 2 to turn from side to side. Pillows used to support back and legs Pt. unable to sit up as pain is worse in that position. Personal items and call burrows in reach. Bed in low and locked position. Safety measures in place.
[2025-07-16 06:45] LABS: POC Glucose,Bedside 145 gm/dL (70-110)
[2025-07-16 07:14] LABS: Hematocrit 26.7 % (42.0-52.0); Immature Granulocytes % 2.7 %; Mean Corpuscular HGB Conc 32.6 g/dL (31.8-35.4); Mean Corpuscular Hemoglobin 29.0 pg (27.0-31.2); Mean Corpuscular Volume 89.0 fl (80-94); Nucleated Red Blood Cells % 0.5 %; Platelet Count 300 K/mm3 (142-424); Red Blood Count 3.00 M/mm3 (4.60-6.20); Red Cell Distribution Width-SD 79.8 fL; White Blood Count 10.0 K/mm3 (4.8-10.8)
[2025-07-16 07:26] LABS: INR 3.52 (0.9-1.1); Prothrombin Time 35.6 seconds (10.1-12.5)
--- NOTE | 2025-07-16 07:39 | P.PN_ITS ---
Subjective *Date: 07/16/25 *Time: 13:28 Interval history: Still complaining of pain, as much in his abdomen is his back. Has not pooped since admission. Reports it has been over a week since his last bowel movement. Denies nausea or vomiting. Has decreased p.o. intake. Afebrile. Stable on room air. Medical Exam Vital signs and Labs for Last 24 Hours: Vital Signs Temp Pulse Pulse Resp BP BP Pulse Ox 07/16/25 07:37 97.8 F 62 18 142/57 H 99 07/16/25 06:40 98.5 F 56 L 16 121/54 L 98 07/16/25 06:00 98.5 F 58 L 16 121/54 L 98 07/16/25 05:40 98.7 F 68 16 110/59 L 98 07/16/25 05:40 98.7 F 68 16 110/59 L 98 07/16/25 04:40 98.6 F 64 16 118/47 L 99 07/16/25 04:25 98.9 F 57 L 16 116/58 L 99 07/16/25 04:10 98.8 F 99 H 16 115/47 L 56 L 07/16/25 04:10 98.8 F 56 L 16 115/47 L 99 07/16/25 03:55 98.4 F 56 L 16 108/44 L 99 07/16/25 03:55 98.4 F 56 L 16 108/44 L 99 07/16/25 03:50 98.2 F 56 L 16 108/41 L 99 07/16/25 03:50 98.2 F 56 L 16 108/41 L 99 07/16/25 03:45 98.3 F 55 L 16 111/50 L 99 07/16/25 03:40 98.2 F 53 L 16 123/41 L 99 07/16/25 03:30 97.8 F 55 L 16 123/70 96 07/16/25 03:00 07/16/25 01:37 98.5 F 54 L 16 141/61 H 98 07/16/25 01:00 07/15/25 23:58 98.4 F 53 L 16 157/68 H 98 07/15/25 23:46 98.2 F 52 L 12 157/68 H 98 07/15/25 23:05 98.7 F 57 L 16 150/63 H 98 07/15/25 23:00 07/15/25 22:05 98.6 F 56 L 16 153/64 H 98 07/15/25 21:50 98.5 F 54 L 16 145/60 H 98 07/15/25 21:35 98.5 F 56 L 16 141/61 H 98 07/15/25 21:20 98.2 F 56 L 18 147/66 H 98 07/15/25 21:15 98.0 F 57 L 16 150/61 H 98 07/15/25 21:10 98.5 F 56 L 18 151/67 H 98 07/15/25 21:05 98.7 F 58 L 16 150/61 H 98 07/15/25 21:00 07/15/25 20:50 98.2 F 58 L 16 156/66 H 92 L 07/15/25 20:00 16 92 L 07/15/25 18:46 07/15/25 17:20 07/15/25 15:58 98.2 F 53 L 18 145/58 H 93 L 07/15/25 15:00 07/15/25 13:10 07/15/25 12:34 98.9 F 56 L 15 151/69 H 92 L 07/15/25 11:10 07/15/25 09:00 07/15/25 08:00 92 L 07/15/25 08:00 97.6 F 57 L 16 132/61 92 L O2 Del Method O2 Flow Rate 07/16/25 07:37 Nasal Cannula 2 07/16/25 06:40 07/16/25 06:00 07/16/25 05:40 07/16/25 05:40 07/16/25 04:40 07/16/25 04:25 07/16/25 04:10 07/16/25 04:10 07/16/25 03:55 07/16/25 03:55 07/16/25 03:50 07/16/25 03:50 07/16/25 03:45 07/16/25 03:40 07/16/25 03:30 07/16/25 03:00 Room Air 07/16/25 01:37 07/16/25 01:00 Room Air 07/15/25 23:58 07/15/25 23:46 Room Air 07/15/25 23:05 07/15/25 23:00 Nasal Cannula 2 07/15/25 22:05 07/15/25 21:50 07/15/25 21:35 07/15/25 21:20 07/15/25 21:15 07/15/25 21:10 07/15/25 21:05 07/15/25 21:00 Nasal Cannula 2 07/15/25 20:50 07/15/25 20:00 Room Air 07/15/25 18:46 Room Air 07/15/25 17:20 Room Air 07/15/25 15:58 Room Air 07/15/25 15:00 Room Air 07/15/25 13:10 Room Air 07/15/25 12:34 Room Air 07/15/25 11:10 Room Air 07/15/25 09:00 Room Air 07/15/25 08:00 Room Air 07/15/25 08:00 Room Air Intake and Output 07/15/25 07/15/25 07/16/25 15:59 23:59 07:59 Intake Total 260 / 992.083 252.083 / 992.083 722.917 / 722.917 Output Total 100 / 725 225 / 725 500 / 500 Balance 160 / 267.083 27.083 / 267.083 222.917 / 222.917 Intake: Intake, Oral Amount 260 / 740 0 / 740 240 / 240 Intake, Total IV Amount 2.083 / 2.083 232.917 / 232.917 0.9 % Sodium Chloride 250 ml @ 2.083 / 2.083 232.917 / 232.917 25 mls/hr IV .Q10H [facility] Rx#: [id number] Intake (Blood Product) Amt 250 / 250 250 / 250 Red Blood Cells Unit 250 / 250 [id number] Red Blood Cells Unit 250 / 250 [id number] Output: Output, Urine Amount 100 / 725 225 / 725 500 / 500 Other: Number of Unmeasured Voids 0 0 Weight 86.727 kg 86.727 kg Patient Weight 07/16/25 23:59 Weight 86.727 kg Laboratory Results - last 24 hr 07/15/25 05:43: WBC 8.4, RBC 2.33 L, Hgb 7.0 L, Hct 22.1 L, MCV 94.8 H, MCH 30.0, MCHC 31.7 L, RDW 23.5 H, Plt Count 296, MPV 9.4, Neut % (Auto) 85.1 H, Lymph % (Auto) 4.4 L, [place] % (Auto) 8.9, Eos % (Auto) 0.1, Baso % (Auto) 0.4, Neut # (Auto) 7.1, Lymph # (Auto) 0.4 L, [place] # (Auto) 0.8, Eos # (Auto) 0.0, Baso # (Auto) 0.0, Total Counted 100, Neutrophils % (Manual) 85 H, Lymphocytes % (Manual) 5 L, Monocytes % (Manual) 10 H, Platelet Estimate Normal, RBC Morphology Not Reportable, Hypochromasia 1+, Anisocytosis 1+, Ovalocytes 1+, Sodium 132 L, Potassium 3.7, Chloride 98, Carbon Dioxide 26, Anion Gap 11.7, BUN 22 H D, Creatinine 0.90, Estimated Creat Clear 76, Estimated GFR 82, Est GFR ( Amer) 99, Glucose 151 H D, Calcium 8.1 L, Total Bilirubin 0.6, AST 36, ALT 39, Alkaline Phosphatase 67, C-Reactive Protein 37.9 H, Total Protein 6.0 L, Albumin 2.8 L D, Globulin 3.2, Albumin/Globulin Ratio 0.9 L 07/15/25 10:50: Blood Type A Positive, Antibody Screen Positive, Crossmatch (AHG) See Detail 07/15/25 11:19: POC Glucose 251 H 07/15/25 16:16: POC Glucose 206 H 07/15/25 18:21: Lactate 1.4 07/15/25 20:56: POC Glucose 179 H 07/16/25 01:20: Hgb 7.6 L, Hct 23.2 L 07/16/25 06:27: POC Glucose 145 H 07/16/25 07:05: WBC 10.0, RBC 3.00 L D, Hct 26.7 L, MCV 89.0, MCH 29.0, MCHC 32.6, RDW 24.3 H, Plt Count 300, MPV 9.1, Neut % (Auto) 83.3 H, Lymph % (Auto) 4.0 L, [place] % (Auto) 9.3, Eos % (Auto) 0.4, Baso % (Auto) 0.3, Neut # (Auto) 8.4 H, Lymph # (Auto) 0.4 L, [place] # (Auto) 0.9, Eos # (Auto) 0.0, Baso # (Auto) 0.0 I & O for Labs for Last 24 Hours: Intake & Output 07/13/25 07/14/25 07/15/25 07/16/25 23:59 23:59 23:59 23:59 Intake Total 1240 / 1480 752.083 / 992.083 722.917 / 722.917 Output Total 1000 / 1400 725 / 725 500 / 500 Balance 240 / 80 27.083 / 267.083 222.917 / 222.917 Weight 86.183 kg 86.772 kg 86.727 kg 86.727 kg Constitutional: Present mild distress, average body habitus, chronically ill appearing and cooperative Head: Present atraumatic and normocephalic ENT: Present normal exam Respiratory: Present normal respiratory effort; Absent rhonchi, wheezes or crackles Cardiac: Present Reg Rate and Rhythm GI: Present soft, distention, tenderness (Nonfocal but worse in lower abdomen) and normal bowel sounds Extremities: Present normal inspection and full ROM Comment:: drier tender in bilateral paraspinal muscle Skin: Present intact; Absent erythema Neuro: Present Grossly Intact, alert, awake, oriented x 3 and moves all extremities Assessment and Plan *Assessment and plan (1) Anemia, blood loss: Status: Acute Category: Medical Code(s): D50.0 - Iron deficiency anemia secondary to blood loss (chronic) (2) Post-op bleeding: Status: Acute Category: Medical (3) Mechanical heart valve present: Status: Acute Category: Surgical Code(s): Z95.2 - Presence of prosthetic heart valve (4) Compression fracture of L5 vertebra: Status: Acute Qualifiers: Encounter type: initial encounter Qualified Code(s): S32.050A - Wedge compression fracture of fifth lumbar vertebra, initial encounter for closed fracture Category: Medical Code(s): S32.050A - Wedge compression fracture of fifth lumbar vertebra, initial encounter for closed fracture (5) Compression fracture of L2 lumbar vertebra: Status: Acute Qualifiers: Encounter type: initial encounter Qualified Code(s): S32.020A - Wedge compression fracture of second lumbar vertebra, initial encounter for closed fracture Category: Medical Code(s): S32.020A - Wedge compression fracture of second lumbar vertebra, initial encounter for closed fracture (6) Acute low back pain: Status: Acute Category: Medical Code(s): M54.50 - Low back pain, unspecified (7) Constipation: Status: Acute Qualifiers: Constipation type: other constipation type Qualified Code(s): K59.09 - Other constipation Category: Medical Code(s): K59.00 - Constipation, unspecified (8) Diabetes mellitus type 2 in nonobese: Status: Acute Category: Medical Code(s): E11.9 - Type 2 diabetes mellitus without complications (9) BPH (benign prostatic hyperplasia): Status: Acute Qualifiers: Lower urinary tract symptom presence: symptoms present Lower urinary tract symptom detail: nocturia Qualified Code(s): N40.1 - Benign prostatic hyperplasia with lower urinary tract symptoms; R35.1 - Nocturia Category: Medical Code(s): N40.0 - Benign prostatic hyperplasia without lower urinary tract symptoms Plan Martin Lezama is a 79-year-old male with a medical history significant for lumbar compression fractures, prostate cancer s/p radiation, type 2 diabetes, hypertension, hyperlipidemia, mechanical aortic valve on chronic anticoagulation with warfarin presented with lower abdominal, back pain that progressively got worse after L2, L5 balloon kyphoplasty on 07/08/2025 and was admitted for refractory pain. #Chronic lumbar compression fractures #Low back pain #Left lower quadrant abdominal pain #History of prostate cancer s/p radiation #Proctocolitis #Acute on chronic anemia ? Patient presented with progressive low back pain in addition to lower abdominal pain and was admitted for refractory pain. Not reproducible to palpation. ? CT abdomen/pelvis revealed mild circumferential wall thickening of the rectosigmoid, increased sacral edema and inflammation extending into the pelvis anteriorly. Lumbar spine CT shows stable chronic compression fractures. No evidence of overlying cellulitis, tender points over the low back or sacral area. ? Patient continues to have predominantly low back pain over the sacral, see presacral areas. Requiring pain regimen [id number]. - Will attempt to improve pain control by scheduling regimen instead of playing catch up by treating after he is sore. schedule oxycodone 10 mg every 6 hours. Will initiate hydrocodone 5mg every 6 hours for breakthrough pain and Dilaudid 0.5 mg for severe breakthrough pain every 6 hours as needed. Monitor for toxicity. -Discontinue Toradol due to anemia and bleeding risk along with anticoagulation -Continue lidocaine patch -Continue Robaxin 1000 mg 3 times a day -Heating pad as needed - White count stable at 10. Hemoglobin at 8.6 after transfusion. Kidney function normal BUN 29, creatinine 1. - Repeat CBC, CMP ordered for the morning -Patient encouraged to get up out of bed today and sit in the bedside chair as he is having spasms with his back likely due to being sedentary in the bed. Encouraged him to ambulate if at all possible to help ease back pain. - Transfusion threshold hemoglobin less than 7 Constipation: Has not had a bowel movement since admission nor in about a week per his report. Will initiate MiraLAX 17 g twice daily, docusate/senna twice daily, enema x 1. If no bowel movement by this afternoon will administer 10 cc magnesium citrate #History of mechanical aortic valve #Chronic anticoagulation ? PT/INR at goal today INR 3.5, continue warfarin 2 mg daily. Repeat INR ordered for the morning #Type 2 diabetes ? LDSSI, ACHS glucose checks. Hemoglobin A1c 7.0% #Rheumatoid arthritis ? Continue home methotrexate 2.5 mg weekly. Full code DVT prophylaxis: Home warfarin Home medications: Reconciled.
[2025-07-16] MEDS: DAPAGLIFLOZIN PROPANEDIOL 10 MG TABLET PO (08:29)
[2025-07-16] MEDS: ATENOLOL 50MG TABLET 50 MG PO (08:29)
[2025-07-16] MEDS: LISINOPRIL 2.5MG TABLET 2.5 MG PO (08:29)
[2025-07-16] MEDS: DOCUSATE SODIUM 100 MG CAPSULE PO (08:29)
[2025-07-16] MEDS: POLYETHYLENE GLYCOL 3350 17 GM PACKET PO ×2 (08:30→21:32)
[2025-07-16 08:32] LABS: Hemoglobin 8.6 g/dL (14.1-18.0)
[2025-07-16 08:45] LABS: Alanine Aminotransferase 50 U/L (12-78); Albumin Level 3.2 g/dl (3.5-5.0); Albumin/Globulin Ratio 0.9 (1.1-1.8); Alkaline Phosphatase 69 U/L (38-126); Anion Gap 10.8 mEq/L (5-15); Aspartate Amino Transferase 65 U/L (17-59); Bilirubin,Total 1.0 mg/dl (0.2-1.3); Blood Urea Nitrogen 29 mg/dl (9-20); Calcium 7.9 mg/dl (8.4-10.2); Carbon Dioxide 28 mmol/L (22.0-30.0); Chloride 98 mmol/L (98-107); Creatinine Clearance Estimated 76 mL/min (50-200); Creatinine,Serum 1.00 mg/dl (0.66-1.25); Estimated Glomerular Filt Rate 72 ml/min (>60); GFR (African American) 88 ML/MIN (>60); Globulin 3.4 g/dL (1.3-3.2); Glucose 143 mg/dl (74-100); Magnesium 2.1 mg/dl (1.6-2.3); Potassium 3.8 mmoL/L (3.5-5.1); Sodium 133 mmol/L (136-145); Total Protein,Serum 6.6 g/dl (6.3-8.2)
[2025-07-16 09:36] LABS: RBC Morphology Normal; Total Cells Counted 100
[2025-07-16] MEDS: SENNOSIDES 8.6MG/DOCUSATE 50MG TABLET 1 TAB PO ×2 (10:25→21:02)
[2025-07-16] MEDS: SODIUM PHOS/BIPHOSPHATE FLEET 133ML ENEMA 133 ML RC (10:26)
[2025-07-16] MEDS: WARFARIN 2MG TABLET 2 MG PO (11:22)
[2025-07-16] MEDS: humaLOG 100 UNITS/ML 10ML VIAL (SSI) SUBCUT ×2 (11:31→17:13)
[2025-07-16 11:32] LABS: POC Glucose,Bedside 182 gm/dL (70-110)
[2025-07-16] MEDS: OXYCODONE 10MG W/APAP 325MG TABLET 1 EACH PO ×2 (11:32→17:14)
[2025-07-16] MEDS: LIDOCAINE 5% TRANSDERMAL PATCH 1 EACH TD (12:38)
[2025-07-16 17:15] LABS: POC Glucose,Bedside 155 gm/dL (70-110)
[2025-07-16] MEDS: HYDROCODONE/APAP 5/325 MG TABLET 1 TAB PO (18:20)
[2025-07-16] MEDS: PRAVASTATIN 40MG TAB 40 MG PO (21:00)
[2025-07-16] MEDS: TAMSULOSIN 0.4MG CAPSULE 0.8 MG PO (21:02)
[2025-07-16 21:59] LABS: POC Glucose,Bedside 126 gm/dL (70-110)
[2025-07-17] MEDS: OXYCODONE 10MG W/APAP 325MG TABLET 1 EACH PO ×3 (00:16→12:43)
[2025-07-17] MEDS: HYDROCODONE/APAP 5/325 MG TABLET 1 TAB PO ×3 (02:02→15:42)
[2025-07-17 04:00] VITALS: BMI 25.5
[2025-07-17 06:09] LABS: POC Glucose,Bedside 139 gm/dL (70-110)
[2025-07-17 07:20] LABS: Hematocrit 25.4 % (42.0-52.0); Hemoglobin 8.2 g/dL (14.1-18.0); Immature Granulocytes % 2.0 %; Mean Corpuscular HGB Conc 32.3 g/dL (31.8-35.4); Mean Corpuscular Hemoglobin 28.6 pg (27.0-31.2); Mean Corpuscular Volume 88.5 fl (80-94); Nucleated Red Blood Cells % 0.3 %; Platelet Count 344 K/mm3 (142-424); Red Blood Count 2.87 M/mm3 (4.60-6.20); Red Cell Distribution Width-SD 76.6 fL; White Blood Count 11.2 K/mm3 (4.8-10.8)
[2025-07-17 08:00] VITALS: BP 123/67; PULSE 65; RESP 16; TEMP 36.5; O2SAT 94
[2025-07-17 08:07] LABS: INR 3.61 (0.9-1.1); Prothrombin Time 36.4 seconds (10.1-12.5)
[2025-07-17 08:12] LABS: Alanine Aminotransferase 60 U/L (12-78); Albumin Level 3.2 g/dl (3.5-5.0); Albumin/Globulin Ratio 1.0 (1.1-1.8); Alkaline Phosphatase 75 U/L (38-126); Anion Gap 13.3 mEq/L (5-15); Aspartate Amino Transferase 87 U/L (17-59); Bilirubin,Total 0.9 mg/dl (0.2-1.3); Blood Urea Nitrogen 22 mg/dl (9-20); Calcium 7.4 mg/dl (8.4-10.2); Carbon Dioxide 25 mmol/L (22.0-30.0); Chloride 99 mmol/L (98-107); Creatinine Clearance Estimated 79 mL/min (50-200); Creatinine,Serum 0.80 mg/dl (0.66-1.25); Estimated Glomerular Filt Rate 94 ml/min (>60); GFR (African American) 113 ML/MIN (>60); Globulin 3.3 g/dL (1.3-3.2); Glucose 135 mg/dl (74-100); Magnesium 2.2 mg/dl (1.6-2.3); Potassium 3.3 mmoL/L (3.5-5.1); Sodium 134 mmol/L (136-145); Total Protein,Serum 6.5 g/dl (6.3-8.2)
[2025-07-17 08:15] VITALS: O2SAT 94
[2025-07-17] MEDS: LISINOPRIL 2.5MG TABLET 2.5 MG PO (08:19)
[2025-07-17] MEDS: ATENOLOL 50MG TABLET 50 MG PO (08:19)
[2025-07-17] MEDS: DAPAGLIFLOZIN PROPANEDIOL 10 MG TABLET PO (08:19)
[2025-07-17] MEDS: METHOCARBAMOL 500MG TABLET 1000 MG PO (08:20)
[2025-07-17] MEDS: SENNOSIDES 8.6MG/DOCUSATE 50MG TABLET 1 TAB PO ×2 (08:20→20:56)
[2025-07-17] MEDS: POLYETHYLENE GLYCOL 3350 17 GM PACKET PO ×2 (08:20→20:57)
[2025-07-17 09:36] LABS: RBC Morphology Normal; Total Cells Counted 100
[2025-07-17] MEDS: HYDROMORPHONE 2MG/ML SYRINGE 1 MG IV (11:33)
[2025-07-17] MEDS: MAGNESIUM CITRATE 296ML BOTTLE 296 ML PO (11:33)
[2025-07-17] MEDS: humaLOG 100 UNITS/ML 10ML VIAL (SSI) SUBCUT ×2 (11:39→17:06)
[2025-07-17 11:41] LABS: POC Glucose,Bedside 181 gm/dL (70-110)
[2025-07-17] MEDS: ONDANSETRON 4MG/2ML VIAL 4 MG IV (12:13)
--- NOTE | 2025-07-17 12:34 | P.PN_ITS ---
Subjective *Date: 07/17/25 *Time: 12:34 Interval history: Had a small bowel movement yesterday afternoon. No vomiting. No significant bleeding from his back. Denies chest pain or shortness of breath. Stable on room air. Got up briefly to the bedside commode yesterday but did not get up to chair. Continues to want to just lay in bed. Medical Exam Vital signs and Labs for Last 24 Hours: Vital Signs Temp Pulse Resp BP Pulse Ox O2 Del Method O2 Flow Rate 07/17/25 09:00 Room Air 07/17/25 08:15 94 L Room Air 07/17/25 08:00 97.7 F 65 16 123/67 94 L 07/17/25 07:00 Room Air 07/17/25 05:00 Nasal Cannula 2 07/17/25 02:56 Nasal Cannula 2 07/17/25 01:58 EDT Nasal Cannula 2 07/16/25 23:00 Nasal Cannula 2 07/16/25 21:00 Nasal Cannula 2 07/16/25 20:00 12 96 Nasal Cannula 2 07/16/25 20:00 98.6 F 54 L 12 105/45 L 96 Nasal Cannula 2 07/16/25 19:05 Room Air 07/16/25 17:00 Room Air 07/16/25 16:00 98.4 F 58 L 16 106/48 L 94 L Room Air 07/16/25 15:00 Room Air Intake and Output 07/16/25 07/17/25 07/17/25 23:59 06:59 15:59 Intake Total 0 / 1571.667 250 / 490 240 / 490 Output Total 800 / 1300 750 / 750 Balance -800 / 271.667 -500 / -260 240 / -260 Intake: Intake, Oral Amount 0 / 1030 250 / 490 240 / 490 Output: Output, Urine Amount 800 / 1300 750 / 750 Other: Number of Unmeasured Voids 0 0 Number of Bowel Movements 2 Weight 90.265 kg Patient Weight 07/17/25 22:59 Weight 90.265 kg Laboratory Results - last 24 hr 07/16/25 17:05: POC Glucose 155 H 07/16/25 21:28: POC Glucose 126 H 07/17/25 06:00: POC Glucose 139 H 07/17/25 06:52: WBC 11.2 H, RBC 2.87 L, Hgb 8.2 L, Hct 25.4 L, MCV 88.5, MCH 28.6, MCHC 32.3, RDW 24.2 H, Plt Count 344, MPV 9.2, Neut % (Auto) 84.7 H, Lymph % (Auto) 4.3 L, [place] % (Auto) 8.3, Eos % (Auto) 0.4, Baso % (Auto) 0.3, Neut # (Auto) 9.5 H, Lymph # (Auto) 0.5 L, [place] # (Auto) 0.9, Eos # (Auto) 0.1, Baso # (Auto) 0.0, Total Counted 100, Neutrophils % (Manual) 91 H, Lymphocytes % (Manual) 3 L, Monocytes % (Manual) 6, Platelet Estimate Normal, RBC Morphology Normal, PT 36.4 H, INR 3.61 H, Sodium 134 L, Potassium 3.3 L, Chloride 99, Carbon Dioxide 25, Anion Gap 13.3, BUN 22 H, Creatinine 0.80, Estimated Creat Clear 79, Estimated GFR 94, Est GFR ( Amer) 113 D, Glucose 135 H, Calcium 7.4 L, Magnesium 2.2, Total Bilirubin 0.9, AST 87 H D, ALT 60, Alkaline Phosphatase 75, Total Protein 6.5, Albumin 3.2 L, Globulin 3.3 H, Albumin/Globulin Ratio 1.0 L 07/17/25 11:30: POC Glucose 181 H I & O for Labs for Last 24 Hours: Intake & Output 07/14/25 07/15/25 07/16/25 07/17/25 23:59 23:59 23:59 22:59 Intake Total 1240 / 1480 752.083 / 080.948 4969.667 / 1571.667 490 / 490 Output Total 1000 / 1400 725 / 725 1300 / 1300 750 / 750 Balance 240 / 80 27.083 / 267.083 21.667 / 271.667 -260 / -260 Weight 86.772 kg 86.727 kg 86.727 kg 90.265 kg Constitutional: Present mild distress, average body habitus, chronically ill appearing and cooperative Head: Present atraumatic and normocephalic ENT: Present normal exam Respiratory: Present normal respiratory effort; Absent rhonchi, wheezes or crackles Cardiac: Present Reg Rate and Rhythm GI: Present soft, distention, tenderness (Nonfocal but worse in lower abdomen) and normal bowel sounds Extremities: Present normal inspection and full ROM Comment:: buggy ladle tender in bilateral paraspinal muscle; removed bandage from left side of spine. Had minimal bleeding. Sutures intact. No significant redness or erythema around injection sites Skin: Present intact; Absent erythema Neuro: Present Grossly Intact, alert, awake, oriented x 3 and moves all extremities Assessment and Plan *Assessment and plan (1) Anemia, blood loss: Status: Acute Category: Medical Code(s): D50.0 - Iron deficiency anemia secondary to blood loss (chronic) (2) Post-op bleeding: Status: Acute Category: Medical (3) Mechanical heart valve present: Status: Acute Category: Surgical Code(s): Z95.2 - Presence of prosthetic heart valve (4) Compression fracture of L5 vertebra: Status: Acute Qualifiers: Encounter type: initial encounter Qualified Code(s): S32.050A - Wedge compression fracture of fifth lumbar vertebra, initial encounter for closed fracture Category: Medical Code(s): S32.050A - Wedge compression fracture of fifth lumbar vertebra, initial encounter for closed fracture (5) Compression fracture of L2 lumbar vertebra: Status: Acute Qualifiers: Encounter type: initial encounter Qualified Code(s): S32.020A - Wedge compression fracture of second lumbar vertebra, initial encounter for closed fracture Category: Medical Code(s): S32.020A - Wedge compression fracture of second lumbar vertebra, initial encounter for closed fracture (6) Acute low back pain: Status: Acute Category: Medical Code(s): M54.50 - Low back pain, unspecified (7) Constipation: Status: Acute Qualifiers: Constipation type: other constipation type Qualified Code(s): K59.09 - Other constipation Category: Medical Code(s): K59.00 - Constipation, unspecified (8) Diabetes mellitus type 2 in nonobese: Status: Acute Category: Medical Code(s): E11.9 - Type 2 diabetes mellitus without complications (9) BPH (benign prostatic hyperplasia): Status: Acute Qualifiers: Lower urinary tract symptom presence: symptoms present Lower urinary tract symptom detail: nocturia Qualified Code(s): N40.1 - Benign prostatic hyperplasia with lower urinary tract symptoms; R35.1 - Nocturia Category: Medical Code(s): N40.0 - Benign prostatic hyperplasia without lower urinary tract symptoms (10) Uncontrolled pain: Status: Acute Category: Medical Code(s): R52 - Pain, unspecified Plan Martin Lezama is a 79-year-old male with a medical history significant for lumbar compression fractures, prostate cancer s/p radiation, type 2 diabetes, hypertension, hyperlipidemia, mechanical aortic valve on chronic anticoagulation with warfarin presented with lower abdominal, back pain that progressively got worse after L2, L5 balloon kyphoplasty on 07/08/2025 and was admitted for refractory pain. Still with pain control. Encouraged to get out of bed today. Had small bowel movement yesterday. Continue with aggressive bowel regimen today. Weaning to oral pain meds today. Continues to require patient management due to severity of pain. Dissipate discharge in the next day or 2 if patient is getting out of bed and ambulatory. #Chronic lumbar compression fractures #Low back pain #Left lower quadrant abdominal pain #History of prostate cancer s/p radiation #Proctocolitis #Acute on chronic anemia ? Patient presented with progressive low back pain in addition to lower abdominal pain and was admitted for refractory pain. Not reproducible to palpation. ? CT abdomen/pelvis revealed mild circumferential wall thickening of the rectosigmoid, increased sacral edema and inflammation extending into the pelvis anteriorly. Lumbar spine CT shows stable chronic compression fractures. No evidence of overlying cellulitis, tender points over the low back or sacral area. ? Patient continues to have predominantly low back pain over the lumbar region. - Continue oxycodone 10 mg scheduled every 6 hours. Hydrocodone 5 mg as needed for breakthrough pain every 6 hours. Will administer 1 dose of Dilaudid today 1 mg to facilitate patient getting out of bed to bedside chair. Otherwise informed him that I am discontinuing IV pain meds. Monitoring for toxicity and oversedation with oral regimen. -Continue lidocaine patch -Continue Robaxin 1000 mg 3 times a day -Heating pad as needed - Intractable back pain white count 11, hemoglobin 8.2. Appears stable. INR elevated at 3.6. Will hold warfarin today, repeat INR, CBC, CMP, magnesium ordered for the morning. -Patient encouraged to get up out of bed today and sit in the bedside chair as he is having spasms with his back likely due to being sedentary in the bed. Encouraged him to ambulate if at all possible to help ease back pain. - Transfusion threshold hemoglobin less than 7 Constipation: No bowel movement yesterday. Continues to need aggressive bowel regimen however. Continue MiraLAX 17 g twice daily, docusate/senna twice daily, 10 ounce bottle of magnesium citrate x 1 today. #History of mechanical aortic valve #Chronic anticoagulation ? PT/INR slightly elevated at 3.6. Hold warfarin. Repeat INR ordered for the morning #Type 2 diabetes ? LDSSI, ACHS glucose checks. Hemoglobin A1c 7.0% #Rheumatoid arthritis ? Continue home methotrexate 2.5 mg weekly. Full code DVT prophylaxis: Home warfarin Home medications: Reconciled.
[2025-07-17] MEDS: TIZANIDINE 4MG TABLET 4 MG PO ×2 (13:32→20:56)
[2025-07-17 16:00] VITALS: BP 79/40; PULSE 53; RESP 16; TEMP 36.8; O2SAT 94
[2025-07-17] MEDS: LACTATED RINGERS 1000ML 1,000 ML 500 ML IV (16:28)
[2025-07-17 16:49] VITALS: BP 91/47
[2025-07-17 17:09] LABS: POC Glucose,Bedside 239 gm/dL (70-110)
--- NOTE | 2025-07-17 17:15 | EXP.EVENT.NO ---
Called to patient's bedside for hypotension. Had large loose bowel movement and developed blood pressures with systolics in the 70s, diastolics in the 30s and 40s. Remained coherent, had no loss of consciousness but was slow to respond initially. Initiated on LR at 500 cc an hour. Showed improvement with monitoring of blood pressure. Maps improved to greater than 60. Will monitor every 5 minutes for half hour, transition to every 15 minutes thereafter. Will hold blood pressure medication scheduled for the morning. Will also hold pain medication at this time due to soft blood pressures. Patient's mentation improved as MAP stable above 60. Did not require any aggressive resuscitation measures other than IV fluids at this time.
--- NOTE | 2025-07-17 17:54 | PC.NURSE ---
pts vitals were taken at 1600 and the BP was 73/35 map was 49. we checked it manual and it was about the same. we called dr upton and he told us to give him a 1L bolus of lactated ringers at 500mL/hr. we rechecked his BP at 1715 and it was 97/50 map is 70. At 1746 BP was 108/52 map was 79. pt is more alert and his color is better. pt has been having trouble with his bowels not moving for 10 days and he started having some this afternoon so not sure if this is a vagal response or if the pain meds he is taking is causing his BP to run low. All pain meds are being held per dr upton until his BP is more stable and stays 100 diastolic or better for a while. pt states he is feeling better at this time than he has for a few days. call light is within reach.
[2025-07-17 20:00] VITALS: BP 97/48; PULSE 59; RESP 14; TEMP 37; O2SAT 92
[2025-07-17 20:54] LABS: POC Glucose,Bedside 164 gm/dL (70-110)
[2025-07-17] MEDS: PRAVASTATIN 40MG TAB 40 MG PO (20:56)
[2025-07-17 20:57] LABS: Hematocrit 25.5 % (42.0-52.0); Hemoglobin 7.7 g/dL (14.1-18.0); Immature Granulocytes % 1.6 %; Mean Corpuscular HGB Conc 30.2 g/dL (31.8-35.4); Mean Corpuscular Hemoglobin 28.9 pg (27.0-31.2); Mean Corpuscular Volume 95.9 fl (80-94); Nucleated Red Blood Cells % 0.5 %; Platelet Count 333 K/mm3 (142-424); Red Blood Count 2.66 M/mm3 (4.60-6.20); Red Cell Distribution Width-SD 88.2 fL; White Blood Count 9.8 K/mm3 (4.8-10.8)
[2025-07-17] MEDS: TAMSULOSIN 0.4MG CAPSULE 0.8 MG PO (20:57)
[2025-07-17 22:28] LABS: Anion Gap 10.0 mEq/L (5-15); Blood Urea Nitrogen 28 mg/dl (9-20); Calcium 7.5 mg/dl (8.4-10.2); Carbon Dioxide 29 mmol/L (22.0-30.0); Chloride 95 mmol/L (98-107); Creatinine Clearance Estimated 79 mL/min (50-200); Creatinine,Serum 1.00 mg/dl (0.66-1.25); Estimated Glomerular Filt Rate 72 ml/min (>60); GFR (African American) 88 ML/MIN (>60); Glucose 135 mg/dl (74-100); Sodium 131 mmol/L (136-145)
[2025-07-17 22:35] LABS: Potassium 3.0 mmoL/L (3.5-5.1)
[2025-07-18] MEDS: POTASSIUM CHLORIDE 20MEQ TAB 40 MEQ PO ×3 (00:15→09:23)
[2025-07-18] MEDS: CALCIUM CARBONATE 500MG CHEWTAB 500 MG PO ×2 (02:53→20:02)
[2025-07-18] MEDS: OXYCODONE 10MG W/APAP 325MG TABLET 1 EACH PO (02:53)
[2025-07-18 04:00] VITALS: BP 104/45; PULSE 66; RESP 14; TEMP 36.8; O2SAT 94; BMI 25.1
--- NOTE | 2025-07-18 05:24 | PC.NURSE ---
patient has refused insulin t/o the shift
[2025-07-18 05:25] LABS: POC Glucose,Bedside 212 gm/dL (70-110)
[2025-07-18 06:38] LABS: Hematocrit 24.9 % (42.0-52.0); Hemoglobin 7.9 g/dL (14.1-18.0); Immature Granulocytes % 2.4 %; Mean Corpuscular HGB Conc 31.7 g/dL (31.8-35.4); Mean Corpuscular Hemoglobin 28.7 pg (27.0-31.2); Mean Corpuscular Volume 90.5 fl (80-94); Nucleated Red Blood Cells % 0.3 %; Platelet Count 331 K/mm3 (142-424); Red Blood Count 2.75 M/mm3 (4.60-6.20); Red Cell Distribution Width-SD 79.7 fL; White Blood Count 8.9 K/mm3 (4.8-10.8)
[2025-07-18 06:57] LABS: Alanine Aminotransferase 69 U/L (12-78); Albumin Level 3.8 g/dl (3.5-5.0); Albumin/Globulin Ratio 1.4 (1.1-1.8); Anion Gap 8.9 mEq/L (5-15); Aspartate Amino Transferase 94 U/L (17-59); Bilirubin,Total 0.7 mg/dl (0.2-1.3); Blood Urea Nitrogen 24 mg/dl (9-20); Calcium 7.6 mg/dl (8.4-10.2); Carbon Dioxide 31 mmol/L (22.0-30.0); Chloride 97 mmol/L (98-107); Creatinine Clearance Estimated 78 mL/min (50-200); Creatinine,Serum 1.00 mg/dl (0.66-1.25); Estimated Glomerular Filt Rate 72 ml/min (>60); GFR (African American) 88 ML/MIN (>60); Globulin 2.8 g/dL (1.3-3.2); Glucose 148 mg/dl (74-100); Magnesium 2.8 mg/dl (1.6-2.3); Potassium 3.9 mmoL/L (3.5-5.1); Sodium 133 mmol/L (136-145); Total Protein,Serum 6.6 g/dl (6.3-8.2)
[2025-07-18 07:10] LABS: INR 2.62 (0.9-1.1); Prothrombin Time 27.1 seconds (10.1-12.5)
[2025-07-18 07:47] VITALS: BP 110/42; PULSE 68; RESP 16; TEMP 36.5; O2SAT 93
--- NOTE | 2025-07-18 08:45 | EXP.ACUTE.PN ---
Subjective *Date: 07/18/25 *Time: 12:54 Interval history: Has had at least 2 large bowel movements over the past 24 hours. Stable on room air. No nausea or vomiting. Ate more for breakfast today but having some increased distention and discomfort in his belly. Transitioning to oral pain regimen. Got up to bedside chair. Working with therapy today. Medical Exam Vital signs and Labs for Last 24 Hours: Vital Signs Temp Pulse Resp BP Pulse Ox O2 Del Method 07/18/25 07:47 97.7 F 68 16 110/42 L 93 L Room Air 07/18/25 06:42 Room Air 07/18/25 05:00 Room Air 07/18/25 04:00 98.3 F 66 14 104/45 L 94 L Room Air 07/18/25 03:00 Room Air 07/18/25 01:00 Room Air 07/17/25 23:00 Room Air 07/17/25 21:00 Room Air 07/17/25 20:00 Room Air 07/17/25 20:00 98.6 F 59 L 14 97/48 L 92 L Nasal Cannula 07/17/25 18:49 Room Air 07/17/25 17:00 Room Air 07/17/25 16:49 91/47 L 07/17/25 16:00 98.3 F 53 L 16 79/40 L 94 L 07/17/25 15:00 Room Air 07/17/25 13:00 Room Air 07/17/25 11:20 Room Air 07/17/25 09:00 Room Air Intake and Output 07/17/25 07/18/25 07/18/25 23:59 07:59 15:59 Intake Total 1630 / 2480 360 / 360 Output Total 700 / 700 Balance 1630 / 1230 -340 / -340 Intake: Intake, Oral Amount 630 / 1480 360 / 360 Intake, Total IV Amount 1000 / 1000 Lactated Ringers 1000ML 1,000 1000 / 1000 ml @ 500 mls/hr IV .Q2H ONE Rx# :[id number] Output: Output, Urine Amount 700 / 700 Other: Number of Voids 0 Number of Unmeasured Voids 0 Number of Bowel Movements 1 1 Weight 88.932 kg Patient Weight 07/18/25 23:59 Weight 88.932 kg Laboratory Results - last 24 hr 07/17/25 06:52: Total Counted 100, Neutrophils % (Manual) 91 H, Lymphocytes % (Manual) 3 L, Monocytes % (Manual) 6, Platelet Estimate Normal, RBC Morphology Normal 07/17/25 11:30: POC Glucose 181 H 07/17/25 16:59: POC Glucose 239 H 07/17/25 20:06: WBC 9.8, RBC 2.66 L, Hgb 7.7 L, Hct 25.5 L, MCV 95.9 H, MCH 28.9, MCHC 30.2 L, RDW 25.3 H*, Plt Count 333, MPV 9.2, Neut % (Auto) 83.0 H, Lymph % (Auto) 5.7 L, [place] % (Auto) 8.5, Eos % (Auto) 0.9, Baso % (Auto) 0.3, Neut # (Auto) 8.1 H, Lymph # (Auto) 0.6 L, [place] # (Auto) 0.8, Eos # (Auto) 0.1, Baso # (Auto) 0.0 07/17/25 20:46: POC Glucose 164 H 07/17/25 21:51: Sodium 131 L, Potassium 3.0 L, Chloride 95 L, Carbon Dioxide 29, Anion Gap 10.0, BUN 28 H D, Creatinine 1.00 D, Estimated Creat Clear 79, Estimated GFR 72, Est GFR ( Amer) 88 D, Glucose 135 H, Calcium 7.5 L 07/18/25 05:17: POC Glucose 212 H 07/18/25 06:12: WBC 8.9, RBC 2.75 L, Hgb 7.9 L, Hct 24.9 L, MCV 90.5, MCH 28.7, MCHC 31.7 L, RDW 24.7 H, Plt Count 331, MPV 9.3, Neut % (Auto) 80.0, Lymph % (Auto) 6.2 L, [place] % (Auto) 8.3, Eos % (Auto) 2.8, Baso % (Auto) 0.3, Neut # (Auto) 7.1, Lymph # (Auto) 0.6 L, [place] # (Auto) 0.7, Eos # (Auto) 0.3, Baso # (Auto) 0.0, PT 27.1 H, INR 2.62 H, Sodium 133 L, Potassium 3.9 D, Chloride 97 L, Carbon Dioxide 31 H, Anion Gap 8.9, BUN 24 H, Creatinine 1.00, Estimated Creat Clear 78, Estimated GFR 72, Est GFR ( Amer) 88, Glucose 148 H, Calcium 7.6 L, Magnesium 2.8 H D, Total Bilirubin 0.7, AST 94 H, ALT 69, Total Protein 6.6, Albumin 3.8 D, Globulin 2.8, Albumin/Globulin Ratio 1.4 I & O for Labs for Last 24 Hours: Intake & Output 07/15/25 07/16/25 07/17/25 07/18/25 23:59 23:59 22:59 23:59 Intake Total 752.083 / 096.832 6742.667 / 2461.617 4610 / 2480 360 / 360 Output Total 725 / 725 1300 / 1300 1000 / 1250 700 / 700 Balance 27.083 / 267.083 21.667 / 928.465 7280 / 1230 -340 / -340 Weight 86.727 kg 86.727 kg 90.265 kg 88.932 kg Constitutional: Present mild distress, average body habitus, chronically ill appearing and cooperative Head: Present atraumatic and normocephalic ENT: Present normal exam Respiratory: Present normal respiratory effort; Absent rhonchi, wheezes or crackles Cardiac: Present Reg Rate and Rhythm GI: Present soft, distention, tenderness (Nonfocal but worse in lower abdomen) and normal bowel sounds Extremities: Present normal inspection and full ROM Comment:: plaster machine tender in bilateral paraspinal muscle; removed bandage from left side of spine. Had minimal bleeding. Sutures intact. No significant redness or erythema around injection sites Skin: Present intact; Absent erythema Neuro: Present Grossly Intact, alert, awake, oriented x 3 and moves all extremities Assessment and Plan *Assessment and plan (1) Anemia, blood loss: Status: Acute Category: Medical Code(s): D50.0 - Iron deficiency anemia secondary to blood loss (chronic) (2) Post-op bleeding: Status: Acute Category: Medical (3) Mechanical heart valve present: Status: Acute Category: Surgical Code(s): Z95.2 - Presence of prosthetic heart valve (4) Compression fracture of L5 vertebra: Status: Acute Qualifiers: Encounter type: initial encounter Qualified Code(s): S32.050A - Wedge compression fracture of fifth lumbar vertebra, initial encounter for closed fracture Category: Medical Code(s): S32.050A - Wedge compression fracture of fifth lumbar vertebra, initial encounter for closed fracture (5) Compression fracture of L2 lumbar vertebra: Status: Acute Qualifiers: Encounter type: initial encounter Qualified Code(s): S32.020A - Wedge compression fracture of second lumbar vertebra, initial encounter for closed fracture Category: Medical Code(s): S32.020A - Wedge compression fracture of second lumbar vertebra, initial encounter for closed fracture (6) Acute low back pain: Status: Acute Category: Medical Code(s): M54.50 - Low back pain, unspecified (7) Constipation: Status: Acute Qualifiers: Constipation type: other constipation type Qualified Code(s): K59.09 - Other constipation Category: Medical Code(s): K59.00 - Constipation, unspecified (8) Diabetes mellitus type 2 in nonobese: Status: Acute Category: Medical Code(s): E11.9 - Type 2 diabetes mellitus without complications (9) BPH (benign prostatic hyperplasia): Status: Acute Qualifiers: Lower urinary tract symptom detail: nocturia Lower urinary tract symptom presence: symptoms present Qualified Code(s): N40.1 - Benign prostatic hyperplasia with lower urinary tract symptoms; R35.1 - Nocturia Category: Medical Code(s): N40.0 - Benign prostatic hyperplasia without lower urinary tract symptoms (10) Uncontrolled pain: Status: Acute Category: Medical Code(s): R52 - Pain, unspecified Plan Martin Lezama is a 79-year-old male with a medical history significant for lumbar compression fractures, prostate cancer s/p radiation, type 2 diabetes, hypertension, hyperlipidemia, mechanical aortic valve on chronic anticoagulation with warfarin presented with lower abdominal, back pain that progressively got worse after L2, L5 balloon kyphoplasty on 07/08/2025 and was admitted for refractory pain. Still with pain control. Encouraged to get out of bed today. Will get him to the bedside chair. Recommend using bedside commode. Having bowel movements. Weaning to oral pain meds only. Anticipate discharge in the next day or 2. Problems addressed as follows: #Chronic lumbar compression fractures #Low back pain #Left lower quadrant abdominal pain #History of prostate cancer s/p radiation #Proctocolitis #Acute on chronic anemia ? Patient presented with progressive low back pain in addition to lower abdominal pain and was admitted for refractory pain. Not reproducible to palpation. ? CT abdomen/pelvis revealed mild circumferential wall thickening of the rectosigmoid, increased sacral edema and inflammation extending into the pelvis anteriorly. Lumbar spine CT shows stable chronic compression fractures. No evidence of overlying cellulitis, tender points over the low back or sacral area. ? Patient continues to have predominantly low back pain over the lumbar region. - Discontinue oxycodone as patient states hydrocodone works better. Initiate hydrocodone 10 mg / 325 mg every 4 hours as needed. Discontinued oxycodone and Dilaudid. - Lidocaine patch daily at patient's discretion. -Transitioned to tizanidine 4 mg 3 times a day -Heating pad as needed - Therapy working with patient. Up to bedside chair and bedside commode today - White count normal at 8.9. Hemoglobin stable at 7.9. Kidney function and electrolytes stable. BUN 24, creatinine 1.0. - INR still within range for patient at 2.6. Resume warfarin today. Repeat INR ordered for the morning. -Patient encouraged to get up out of bed today and sit in the bedside chair as he is having spasms with his back likely due to being sedentary in the bed. Encouraged him to ambulate if at all possible to help ease back pain. - Transfusion threshold hemoglobin less than 7 Constipation: Had movements daily. Continue aggressive regimen of MiraLAX 17 g twice daily, docusate/senna twice daily, 10 ounce bottle of magnesium citrate x 1 today. #History of mechanical aortic valve #Chronic anticoagulation ? PT/INR slightly improved to 2.6. Goal range 2.5-3.5. Resume warfarin today at 4 mg once. Repeat INR ordered for the morning #Type 2 diabetes ? LDSSI, ACHS glucose checks. Hemoglobin A1c 7.0% #Rheumatoid arthritis ? Continue home methotrexate 2.5 mg weekly. Full code DVT prophylaxis: Home warfarin Home medications: Reconciled.
[2025-07-18] MEDS: HYDROCODONE 10MG/APAP 325MG TAB 1 TAB PO ×3 (08:49→20:38)
[2025-07-18 09:04] LABS: Alkaline Phosphatase 76 U/L (38-126)
[2025-07-18] MEDS: SENNOSIDES 8.6MG/DOCUSATE 50MG TABLET 1 TAB PO ×2 (09:21→20:10)
[2025-07-18] MEDS: TIZANIDINE 4MG TABLET 4 MG PO ×2 (09:22→12:59)
[2025-07-18] MEDS: POLYETHYLENE GLYCOL 3350 17 GM PACKET PO ×2 (09:24→20:09)
[2025-07-18] MEDS: MAGNESIUM CITRATE 296ML BOTTLE 296 ML PO (10:19)
--- NOTE | 2025-07-18 10:32 | HMH.OTEV ---
OT Evaluation Rehab OT IP Evaluation Start: 07/18/25 08:40 Freq: ONCE Status: Active Protocol: [facility] (Rec: 07/18/25 10:31 [facility] [id number]) Rehab OT IP Assessment Subjective History Pt oriented x 3 on arrival. Pt agreeable to engage in therapy evaluation. Pt admitted on 07/14/25 due to pain management. History and physical: Patient is a 79-year-old male with past medical history significant for lumbar compression fractures, prostate cancer, type 2 diabetes, hypertension, hyperlipidemia, mechanical aortic valve on chronic anticoagulation with warfarin. Presents to [facility] due to pain after undergoing kyphoplasty. On 07/04/[address] Negro. He underwent L2 and L5 kyphoplasty. Patient reported bleeding post surgical procedure. He has been transitioning back to warfarin. He presented to the emergency department yesterday requiring a suture due to bleeding. He has also been complaining of pain since surgical procedure. Currently on hydrocodone 5 and methocarbamol without any symptomatic relief. He also started having lower back pain with associated nausea dry heaving. Patient denies any known alleviating or aggravating factors. Denies fever , chills, chest pain. Initial ED workup included laboratory studies which resulted with a WBC 10.9, hemoglobin 7.8, 22.8, INR 2. 18, sodium 131, glucose 206 AST 210And treat as needed per sliding scale. And treat as he was denies any known alleviating or aggravating factors. PT 22.8, INR sodium 131, sodium [address] abdomen and pelvis revealing pleural effusion, mild presacral edema and inflammation extending into pelvis which may be post therapeutic or secondary proctocolitis. Remaining findings chronic. CT lumbar spine obtained without any acute findings. Subjective Prior to being in the hospital, pt lived at home with his . Pt claims normally he is able to complete all ADL's independently. However, since his back injuries he has been requiring more assistance from his , especially with lower body dressing and bathing. Pt's completes all IADLs. He does use a rollator during functional transfers. Objective Patient Orientation Person,Place,Birthday Right Upper Min Limitation <25% Extremity Gross ROM Left Upper Extremity Min Limitation <25% Gross ROM Shoulder ROM Muscle Weakness Limitations Elbow ROM Muscle Weakness Limitations Wrist Limitations of Muscle Weakness Range of Motion Bed Mobility bed mobility-scooting,bed mobility - supine/sit Assist Level Minimal x 2 (25% assist) Transfer Training Sit/Stand Transfer Assist Level Moderate x 1 (50% assist) Chair Transfer Contact Guard/Hand Hold Ability Chair Transfer Sit to/from Ambulatory Technique Chair Transfer Rolling Walker Assistive Devices Lower Body Dressing Unable/dependent Ability Rehab OT IP prob,goals,plan Problems Date of Evaluation: 07/18/25 OT IP Problems Bed Mobility,Transfers,Balance,Self care,Safety Rehab Potential Rehab Potential Good Equipment Needs Assistive Devices Rolling / Wheeled Walker Plan OT intervention Plan Bed Mobility,Transfers,Balance,Self care,Safety, Therapeutic Exercise OT Plan Frequency Daily Duration LOS Discharge Goals Bed Mobility Ability Assistance x1 Sit to Stand Chair Contact Guard/Hand Hold,Minimal x 1 (25% assist) Transfer Ability Chair Transfer Supervision/Stand by,Contact Guard/Hand Hold Ability Chair Transfer Sit to/from Ambulatory Technique Chair Transfer Rolling Walker Assistive Devices Lower Body Dressing Maximum Assistance Ability Upper Body Dressing Moderate Assistance Ability Performing Toilet Minimal Assistance Hygiene Ability Overall Commode/ Maximum Assistance Toilet Transfer Ability Commode/Toilet Sit to/from Ambulatory Transfer Technique Discharge Plan OT Discharge Plan Pt will continue to be seen for OT services while at [facility]. At this time, pt would benefit most from short term rehab at SNF following discharge from hospital. Pt presents below baseline with functional transfers and ADL independence. If pt were to improve during hospital stay, he could possibly return home with OT evaluation and 07/04 assistance from . Continued skilled therapy is important in order for patient to improve strength, safety, endurance, ADL independence, ad functional transfers to reach PLOF. Eval Complexity Eval Charge Codes 73085 - Moderate Complexity PHYSICIAN CERTIFICATION: I certify the specified therapy services for Martin Lezama are required, authorized, and reviewed every 30 days.
[2025-07-18] MEDS: WARFARIN 2MG TABLET 4 MG PO (10:35)
[2025-07-18 11:23] LABS: POC Glucose,Bedside 292 gm/dL (70-110)
[2025-07-18] MEDS: humaLOG 100 UNITS/ML 10ML VIAL (SSI) SUBCUT ×3 (11:40→20:10)
[2025-07-18] MEDS: LACTATED RINGERS 1000ML 1,000 ML 500 ML IV (15:32)
[2025-07-18 16:00] VITALS: BP 135/64; PULSE 58; RESP 20; TEMP 36.4; O2SAT 93
[2025-07-18 17:11] LABS: POC Glucose,Bedside 206 gm/dL (70-110)
--- NOTE | 2025-07-18 17:24 | PC.NURSE ---
Addendum entered by Jose Angel Julio RN 07/18/25 17:41: initial bp 74/46, bp improved to 90/56 after 500ml LR infused, 135/56 after 800ml. PT reports feeling much better and has made a few laps around the room with his rolling walker. PT has had several medium-large liquid bowel movements. Original Note: pt became hypotensive while resting in the chair, pt was symptomatic, MD notified, LR bolus administered per MD order.
[2025-07-18 20:00] VITALS: BP 104/51; PULSE 66; RESP 12; TEMP 36.9; O2SAT 92
[2025-07-18] MEDS: TIZANIDINE 4MG TABLET 2 MG PO (20:09)
[2025-07-18] MEDS: TAMSULOSIN 0.4MG CAPSULE 0.8 MG PO (20:10)
[2025-07-18] MEDS: PRAVASTATIN 40MG TAB 40 MG PO (20:10)
[2025-07-19] VITALS: BP 120/46; PULSE 67; RESP 16; TEMP 36.8; O2SAT 95
[2025-07-19] MEDS: HYDROCODONE 10MG/APAP 325MG TAB 1 TAB PO ×3 (00:40→10:51)
[2025-07-19 04:00] VITALS: BP 134/48; PULSE 58; RESP 16; TEMP 36.4; O2SAT 91; BMI 25.7
[2025-07-19 04:15] LABS: POC Glucose,Bedside 211 gm/dL (70-110)
[2025-07-19 05:27] LABS: POC Glucose,Bedside 171 gm/dL (70-110)
[2025-07-19 06:29] LABS: Hematocrit 23.9 % (42.0-52.0); Hemoglobin 7.4 g/dL (14.1-18.0); Immature Granulocytes % 4.0 %; Mean Corpuscular HGB Conc 31.0 g/dL (31.8-35.4); Mean Corpuscular Hemoglobin 28.2 pg (27.0-31.2); Mean Corpuscular Volume 91.2 fl (80-94); Nucleated Red Blood Cells % 0.5 %; Platelet Count 379 K/mm3 (142-424); Red Blood Count 2.62 M/mm3 (4.60-6.20); Red Cell Distribution Width-SD 80.9 fL; White Blood Count 8.5 K/mm3 (4.8-10.8)
[2025-07-19 06:34] LABS: Albumin Level 4.1 g/dl (3.5-5.0); Chloride 98 mmol/L (98-107); Potassium 4.3 mmoL/L (3.5-5.1); Sodium 134 mmol/L (136-145)
[2025-07-19 06:36] LABS: Alanine Aminotransferase 64 U/L (12-78); Aspartate Amino Transferase 85 U/L (17-59); Blood Urea Nitrogen 22 mg/dl (9-20); Creatinine Clearance Estimated 80 mL/min (50-200); Creatinine,Serum 0.90 mg/dl (0.66-1.25); Estimated Glomerular Filt Rate 82 ml/min (>60); GFR (African American) 99 ML/MIN (>60)
[2025-07-19 06:37] LABS: Albumin/Globulin Ratio 2.2 (1.1-1.8); Alkaline Phosphatase 71 U/L (38-126); Anion Gap 10.3 mEq/L (5-15); Bilirubin,Total 0.8 mg/dl (0.2-1.3); Calcium 7.4 mg/dl (8.4-10.2); Carbon Dioxide 30 mmol/L (22.0-30.0); Globulin 1.9 g/dL (1.3-3.2); Glucose 148 mg/dl (74-100); Magnesium 3.0 mg/dl (1.6-2.3); Total Protein,Serum 6.0 g/dl (6.3-8.2)
[2025-07-19 06:43] LABS: INR 2.53 (0.9-1.1); Prothrombin Time 26.2 seconds (10.1-12.5)
[2025-07-19 07:53] LABS: Hypochromasia 1+; Total Cells Counted 100
[2025-07-19 08:00] VITALS: BP 170/77; PULSE 53; RESP 16; TEMP 36.4; O2SAT 94
[2025-07-19] MEDS: TIZANIDINE 4MG TABLET 2 MG PO ×2 (08:03→12:19)
[2025-07-19] MEDS: SENNOSIDES 8.6MG/DOCUSATE 50MG TABLET 1 TAB PO (08:04)
[2025-07-19] MEDS: POLYETHYLENE GLYCOL 3350 17 GM PACKET PO (08:05)
[2025-07-19] MEDS: WARFARIN 2MG TABLET 4 MG PO (11:08)
[2025-07-19] MEDS: humaLOG 100 UNITS/ML 10ML VIAL (SSI) SUBCUT (11:08)
[2025-07-19 11:11] LABS: POC Glucose,Bedside 246 gm/dL (70-110)
[2025-07-19] MEDS: TIZANIDINE 4MG TABLET 4 MG PO (12:18)
--- NOTE | 2025-07-19 12:49 | EXP.DC.SUM ---
General Admission date:: 07/15/25 HPI HPI HPI: Patient is a 79-year-old male with past medical history significant for lumbar compression fractures, prostate cancer, type 2 diabetes, hypertension, hyperlipidemia, mechanical aortic valve on chronic anticoagulation with warfarin. Presents to [facility] due to pain after undergoing kyphoplasty. On 07/04/[address] Negro. He underwent L2 and L5 kyphoplasty. Patient reported bleeding post surgical procedure. He has been transitioning back to warfarin. He presented to the emergency department yesterday requiring a suture due to bleeding. He has also been complaining of pain since surgical procedure. Currently on hydrocodone 5 and methocarbamol without any symptomatic relief. He also started having lower back pain with associated nausea dry heaving. Patient denies any known alleviating or aggravating factors. Denies fever, chills, chest pain. Initial ED workup included laboratory studies which resulted with a WBC 10.9, hemoglobin 7.8, 22.8, INR 2.18, sodium 131, glucose 206 AST 210And treat as needed per sliding scale. And treat as he was denies any known alleviating or aggravating factors. PT 22.8, INR sodium 131, sodium [address] abdomen and pelvis revealing pleural effusion, mild presacral edema and inflammation extending into pelvis which may be post therapeutic or secondary proctocolitis. Remaining findings chronic. CT lumbar spine obtained without any acute findings. Hospital Course Hospital Course Hospital Course: Martin Lezama is a 79-year-old male with a medical history significant for lumbar compression fractures, prostate cancer s/p radiation, type 2 diabetes, hypertension, hyperlipidemia, mechanical aortic valve on chronic anticoagulation with warfarin presented with lower abdominal, back pain that progressively got worse after L2, L5 balloon kyphoplasty on 07/08/2025 and was admitted for refractory pain procedure. #Chronic lumbar compression fractures #Low back pain #Left lower quadrant abdominal pain #History of prostate cancer s/p radiation #Proctocolitis #Acute on chronic anemia ? Patient presented with progressive low back pain in addition to lower abdominal pain and was admitted for refractory pain. Not reproducible to palpation. ? CT abdomen/pelvis revealed mild circumferential wall thickening of the rectosigmoid, increased sacral edema and inflammation extending into the pelvis anteriorly. Lumbar spine CT shows stable chronic compression fractures. No evidence of overlying cellulitis, tender points over the low back or sacral area. ? Patient continues to have predominantly low back pain over the lumbar region. No tenderness, step-offs, red flag symptoms. ? Overall, patient slowly and gradually improved with multimodal pain management ([place], tizanidine seem to have helped the most, lidocaine patch and Toradol did not). Initially bedbound due to pain, gradually worked with physical therapy and is currently able to ambulate with a walker but continues to have mild to moderate pain but improving. Presentation most consistent with acute low back strain at this time. Will discharge with [place], tizanidine, also recommended trying ice packs as needed. ? Initially also thought acute on chronic anemia exacerbated pain from proctocolitis. Received 2 units transfusion, hemoglobin stable 7.4-7.7. No obvious signs of bleeding. Will have patient repeat outpatient CBC in 3 days to recheck hemoglobin. ? Discharged with [place] 5 mg every 4 hours as needed for 3 days, tizanidine 2 mg 3 times daily as needed. Constipation: Continue MiraLAX 17 g daily. #History of mechanical aortic valve #Chronic anticoagulation ? PT/INR slightly improved to 2.6. Goal range 2.5-3.5. Resume warfarin today at 4.5 mg daily. Discontinued Lovenox bridge. #Type 2 diabetes ? LDSSI, ACHS glucose checks. Hemoglobin A1c 7.0%. Continue home Farxiga 10 mg, glipizide 10 mg #Rheumatoid arthritis ? Continue home methotrexate 2.5 mg weekly. Exam Data for Last 24 hours Vital signs and Labs for Last 24 Hours: Temp Pulse Resp BP Pulse Ox O2 Del Method O2 Flow Rate 97.6 F 53 L 16 170/77 H 94 L Room Air 2 07/19/25 08:00 07/19/25 08:00 07/19/25 08:00 07/19/25 08:00 07/19/25 08:00 07/19/25 08:00 07/17/25 05:00 Laboratory Results - last 24 hr 07/18/25 16:55: POC Glucose 206 H 07/18/25 20:09: POC Glucose 211 H 07/19/25 05:14: POC Glucose 171 H 07/19/25 05:55: WBC 8.5, RBC 2.62 L, Hgb 7.4 L, Hct 23.9 L, MCV 91.2, MCH 28.2, MCHC 31.0 L, RDW 24.5 H, Plt Count 379, MPV 9.3, Neut % (Auto) 76.7, Lymph % (Auto) 6.1 L, Cassia % (Auto) 8.4, Eos % (Auto) 4.3, Baso % (Auto) 0.5, Neut # (Auto) 6.6, Lymph # (Auto) 0.5 L, Cassia # (Auto) 0.7, Eos # (Auto) 0.4, Baso # (Auto) 0.0, Total Counted 100, Neutrophils % (Manual) 79 H, Lymphocytes % (Manual) 12, Monocytes % (Manual) 5, Eosinophils % (Manual) 4 H, Platelet Estimate Normal, Hypochromasia 1+, PT 26.2 H, INR 2.53 H, Sodium 134 L, Potassium 4.3, Chloride 98, Carbon Dioxide 30, Anion Gap 10.3, BUN 22 H, Creatinine 0.90, Estimated Creat Clear 80, Estimated GFR 82, Est GFR ( Amer) 99, Glucose 148 H, Calcium 7.4 L, Magnesium 3.0 H, Total Bilirubin 0.8, AST 85 H, ALT 64, Alkaline Phosphatase 71, Total Protein 6.0 L, Albumin 4.1, Globulin 1.9, Albumin/Globulin Ratio 2.2 H 07/19/25 11:03: POC Glucose 246 H I & O for Last 24 hours: Intake & Output 07/16/25 07/17/25 07/18/25 07/19/25 23:59 22:59 23:59 23:59 Intake Total 1321.667 / 5067.161 7989 / 2480 1900 / 2200 300 / 300 Output Total 1300 / 1300 1000 / 1250 700 / 700 450 / 450 Balance 21.667 / 550.670 3327 / 1230 1200 / 1500 -150 / -150 Weight 86.727 kg 90.265 kg 88.932 kg 91.036 kg Constitutional Constitutional: no acute distress, obese and chronically ill appearing *Routine HEENT Exam Head: Present normocephalic Eye: Present EOMI and PERRL ENT: Present mucous membranes moist *Routine Neck Exam Neck: Present supple; Absent lymphadenopathy *Routine Respiratory Exam Respiratory: Present CTA bilaterally *Routine Cardiovascular Exam Cardiovascular: Present RRR *Routine Abdominal Exam Abdominal: Present soft and normoactive bowel sounds; Absent tenderness *Routine Extremities Exam Extremities: Absent cyanosis, clubbing or edema *Routine Skin Exam Skin: Present warm; Absent rash *Routine Neurological Exam Neurological: Present alert and oriented X3 Results Data Completed and Pending Labs on day of discharge: Labs from last 24 hours 07/19/25 07/19/25 07/19/25 11:03 05:55 05:14 WBC 8.5 RBC 2.62 L Hgb 7.4 L Hct 23.9 L MCV 91.2 MCH 28.2 MCHC 31.0 L RDW 24.5 H Plt Count 379 MPV 9.3 Neut % (Auto) 76.7 Lymph % (Auto) 6.1 L Cassia % (Auto) 8.4 Eos % (Auto) 4.3 Baso % (Auto) 0.5 Neut # (Auto) 6.6 Lymph # (Auto) 0.5 L Cassia # (Auto) 0.7 Eos # (Auto) 0.4 Baso # (Auto) 0.0 Total Counted 100 Neutrophils % (Manual) 79 H Lymphocytes % (Manual) 12 Monocytes % (Manual) 5 Eosinophils % (Manual) 4 H Platelet Estimate Normal Hypochromasia 1+ PT 26.2 H INR 2.53 H Sodium 134 L Potassium 4.3 Chloride 98 Carbon Dioxide 30 Anion Gap 10.3 BUN 22 H Creatinine 0.90 Estimated Creat Clear 80 Estimated GFR 82 Est GFR ( Amer) 99 Glucose 148 H POC Glucose 246 H 171 H Calcium 7.4 L Magnesium 3.0 H Total Bilirubin 0.8 AST 85 H ALT 64 Alkaline Phosphatase 71 Total Protein 6.0 L Albumin 4.1 Globulin 1.9 Albumin/Globulin Ratio 2.2 H 07/18/25 07/18/25 20:09 16:55 WBC RBC Hgb Hct MCV MCH MCHC RDW Plt Count MPV Neut % (Auto) Lymph % (Auto) Cassia % (Auto) Eos % (Auto) Baso % (Auto) Neut # (Auto) Lymph # (Auto) Cassia # (Auto) Eos # (Auto) Baso # (Auto) Total Counted Neutrophils % (Manual) Lymphocytes % (Manual) Monocytes % (Manual) Eosinophils % (Manual) Platelet Estimate Hypochromasia PT INR Sodium Potassium Chloride Carbon Dioxide Anion Gap BUN Creatinine Estimated Creat Clear Estimated GFR Est GFR ( Amer) Glucose POC Glucose 211 H 206 H Calcium Magnesium Total Bilirubin AST ALT Alkaline Phosphatase Total Protein Albumin Globulin Albumin/Globulin Ratio DS: Diagnosis Discharge Diagnosis (1) Anemia, blood loss: Status: Acute Code(s): D50.0 - Iron deficiency anemia secondary to blood loss (chronic) (2) Post-op bleeding: Status: Acute (3) Mechanical heart valve present: Status: Acute Code(s): Z95.2 - Presence of prosthetic heart valve (4) Compression fracture of L5 vertebra: Status: Acute Code(s): S32.050A - Wedge compression fracture of fifth lumbar vertebra, initial encounter for closed fracture Qualifiers: Encounter type: initial encounter Qualified Code(s): S32.050A - Wedge compression fracture of fifth lumbar vertebra, initial encounter for closed fracture (5) Compression fracture of L2 lumbar vertebra: Status: Acute Code(s): S32.020A - Wedge compression fracture of second lumbar vertebra, initial encounter for closed fracture Qualifiers: Encounter type: initial encounter Qualified Code(s): S32.020A - Wedge compression fracture of second lumbar vertebra, initial encounter for closed fracture (6) Acute low back pain: Status: Acute Code(s): M54.50 - Low back pain, unspecified (7) Constipation: Status: Acute Code(s): K59.00 - Constipation, unspecified Qualifiers: Constipation type: other constipation type Qualified Code(s): K59.09 - Other constipation (8) Diabetes mellitus type 2 in nonobese: Status: Acute Code(s): E11.9 - Type 2 diabetes mellitus without complications (9) BPH (benign prostatic hyperplasia): Status: Acute Code(s): N40.0 - Benign prostatic hyperplasia without lower urinary tract symptoms Qualifiers: Lower urinary tract symptom detail: nocturia Lower urinary tract symptom presence: symptoms present Qualified Code(s): N40.1 - Benign prostatic hyperplasia with lower urinary tract symptoms; R35.1 - Nocturia (10) Uncontrolled pain: Status: Acute Code(s): R52 - Pain, unspecified Meds Home Medications and Allergies Home Medications ?Medication ?Instructions ?Recorded ?Confirmed ?Type tamsulosin 0.4 mg capsule 0.8 mg PO DAILY 09/10/23 07/14/25 History oxybutynin chloride 10 mg 10 mg PO DAILY 09/23/24 07/14/25 History tablet,extended release 24 hr leuprolide acetate (6 month) 45 mg 45 mg IM Q6M 12/14/24 07/14/25 History intramuscular syringe kit (Lupron Depot) lisinopril 2.5 mg tablet 2.5 mg PO DAILY #90 tabs 12/20/24 07/14/25 Rx hydrochlorothiazide 25 mg tablet 25 mg PO DAILY #90 tabs 12/27/24 07/14/25 Rx abatacept 125 mg/mL subcutaneous 125 mg SQ MONTHLY 01/07/25 07/14/25 History auto-injector (Orencia ClickJect) atenolol 50 mg tablet 50 mg PO DAILY BLOOD PRESSURE #90 02/28/25 07/14/25 Rx tabs simvastatin 20 mg tablet 20 mg PO DAILY #90 tabs 03/22/25 07/14/25 Rx glipizide 10 mg tablet 10 mg PO DAILY #90 tabs 05/13/25 07/14/25 Rx folic acid 1 mg tablet 1 mg PO DAILY 05/23/25 07/14/25 History methotrexate sodium 2.5 mg tablet 10 mg PO WEEKLY 05/23/25 07/14/25 History denosumab 60 mg/mL subcutaneous 60 mg SQ Q6M 07/05/25 07/14/25 History syringe (Prolia) hydrocodone 5 mg-acetaminophen 325 1 tab PO Q8H PRN pain #90 tabs 07/05/25 07/14/25 Rx mg tablet Held on 07/19/25. Instructions: Resume on 07/23/25. calcium 600 mg (as 1 cap PO BID 07/14/25 07/14/25 History carbonate)-vitamin D3 12.5 mcg (500 unit) capsule (Calcium with Vit D3) dapagliflozin propanediol 10 mg 10 mg PO DAILY 07/14/25 07/14/25 History tablet (Farxiga) warfarin 4 mg tablet 4.5 mg PO DAILY 07/14/25 07/14/25 History hydrocodone 10 mg-acetaminophen 1 tab PO Q4HP PRN Moderate To 07/19/25 Rx 325 mg tablet Severe Pain (4-10) #18 tabs tizanidine 4 mg tablet 2 mg (1/2 x 4 mg) PO TID PRN Low 07/19/25 Rx back pain #30 tabs New Prescriptions to Start Prescriptions: hydrocodone-acetaminophen Tristan Alston tizanidine Tristan Alston Allergies Allergy/AdvReac Type Severity Reaction Status Date / Time No Known Allergies Allergy Verified 07/12/25 15:21 Discharge Plan Disposition Patient Disposition: Home Health Service Condition: Fair Discharge Order Discharge Orders: Discharge Order (Routine); Ordered 07/19/25 Ordered By: Tristan Alston Follow up Plan Follow up with: Wu Negro MD [Nurse Practitioner, Pain Management] - 07/25/25 1:15 pm Abelardo Pappas MD [Staff Physician, Family Practice] - 07/28/25 11:00 am Prescriptions/Medication Reconciliation: New tizanidine 4 mg Tablet 2 mg PO TID PRN (Reason: Low back pain) Qty: 30 0RF hydrocodone-acetaminophen 10-325 mg Tablet 1 tab PO Q4HP PRN (Reason: Moderate To Severe Pain (4-10)) Qty: 18 0RF Continued oxybutynin chloride 10 mg tablet extended release 24hr 10 mg PO DAILY Patient Comments: TAKE ONE TABLET BY MOUTH EVERY DAY FOR urine urgency tamsulosin 0.4 mg capsule 0.8 mg PO DAILY lisinopril 2.5 mg tablet 2.5 mg PO DAILY Qty: 90 3RF methotrexate sodium 2.5 mg tablet 10 mg PO WEEKLY Rx Instructions: Take 4 tablets weekly each Friday AM folic acid 1 mg tablet 1 mg PO DAILY hydrochlorothiazide 25 mg tablet 25 mg PO DAILY Qty: 90 3RF atenolol 50 mg tablet 50 mg PO DAILY Qty: 90 3RF simvastatin 20 mg tablet 20 mg PO DAILY Qty: 90 0RF glipizide 10 mg tablet 10 mg PO DAILY Qty: 90 0RF Lupron Depot (6 Month) 45 mg Syringe Kit 45 mg IM Q6M Rx Instructions: EVERY 6 MONTHS Orencia ClickJect 125 mg/mL auto-injector 125 mg SQ MONTHLY Prolia 60 mg/mL Syringe 60 mg SQ Q6M dapagliflozin propanediol [Farxiga] 10 mg Tablet 10 mg PO DAILY warfarin 4 mg tablet 4.5 mg PO DAILY calcium carbonate-vitamin D3 [Calcium 600 with Vitamin D3] 600 mg-12.5 mcg (500 unit) capsule 1 cap PO BID Held hydrocodone-acetaminophen 5-325 mg tablet 1 tab PO Q8H PRN (Reason: pain) Qty: 90 0RF Hold Instructions: Resume on 07/23/25. Discontinued methocarbamol 750 mg tablet 750 mg PO TID Qty: 90 2RF enoxaparin 100 mg/mL syringe 90 mg SQ BID Patient Comments: INJECT 90 MG (0.9 ML) SUBCUTANEOUSLY EVERY TWELVE HOURS FOR ANTICOAGULATION Other Ambulatory Orders: Complete Blood Count Auto Diff (Routine) Timeframe: 1 Week Facility: [facility] - Location: Laboratory Ordered By: Tristan Alston Problem Reconciliation Problems Reviewed?: Yes Patient Discharge Instructions Patient Instructions: Anemia, DI for Postoperative Pain, Coumadin Vitamin K/ Diet Print Language: Lithuanian Providers Primary Care Provider: Provider,Referral Admit Provider: Tristan Alston Attending Provider: Tristan Alston
--- NOTE | 2025-07-19 14:03 | CARE MANAGER ---
Addendum entered by Macarena Tiwari RN 07/20/25 11:47: Order/clinical faxed to [facility] and BSC has been delivered to home. Original Note: Patient would benefit from a BSC due to his inability to ambulate distance to bathroom in the home safely and comfortable r/t severe back pain with recent surgery.
--- NOTE | 2025-07-20 10:26 | SW/DCPLANNER ---
Spoke with patient on the phone. Patient stated that he is doing good. Patient stated that he is aware of his upcoming appointments. Patient stated that he was able to get his medicine brought to his room on the day he was discharged. Patient stated that he has no concerns or questions at this time. Giuliano Guzmán
== END 2025-07-19 14:06 | disposition home or self-care (01) | DRG 563 ==
LOC: ER 23:28 → 2ND 07-14 00:37
PROVIDERS: Internal Medicine Adolescent Medicine; Nurse Practitioner Acute Care; Admitting Provider Student in an Organized Health Care Education/Training Program; Emergency Provider Emergency Medicine; Visit Provider Student in an Organized Health Care Education/Training Program
DX: S39.012A Strain of muscle, fascia and tendon of lower back, initial encounter (principal); D62 Acute posthemorrhagic anemia; K51.30 Ulcerative (chronic) rectosigmoiditis without complications; E87.1 Hypo-osmolality and hyponatremia; L76.22 Postprocedural hemorrhage of skin and subcutaneous tissue following other procedure; S32.050A Wedge compression fracture of fifth lumbar vertebra, initial encounter for closed fracture; E11.9 Type 2 diabetes mellitus without complications; M06.9 Rheumatoid arthritis, unspecified; I10 Essential (primary) hypertension; E78.2 Mixed hyperlipidemia; G89.18 Other acute postprocedural pain; K59.09 Other constipation; N40.1 Benign prostatic hyperplasia with lower urinary tract symptoms; I95.9 Hypotension, unspecified; R35.1 Nocturia; R74.01 Elevation of levels of liver transaminase levels; X58.XXXA Exposure to other specified factors, initial encounter; Y83.8 Other surgical procedures as the cause of abnormal reaction of the patient, or of later complication, without mention of misadventure at the time of the procedure; Z95.2 Presence of prosthetic heart valve; Z85.46 Personal history of malignant neoplasm of prostate; Z92.3 Personal history of irradiation; Z79.52 Long term (current) use of systemic steroids; Z79.01 Long term (current) use of anticoagulants; Z79.84 Long term (current) use of oral hypoglycemic drugs; Z79.899 Other long term (current) drug therapy; Z87.311 Personal history of (healed) other pathological fracture; Z95.5 Presence of coronary angioplasty implant and graft; Z86.79 Personal history of other diseases of the circulatory system; R55 Syncope and collapse; R42 Dizziness and giddiness; S31.010A Laceration without foreign body of lower back and pelvis without penetration into retroperitoneum, initial encounter; E78.5 Hyperlipidemia, unspecified
CPT/HCPCS: 36415; 36430; 72131; 74177; 80048; 80053; 81001; 82962; 83605; 83735; 85007; 85014; 85018; 85025; 85610; 86140; 86850; 86870; 97162; 97166; 97530; 99285; G0378; J1171; J1650; J1885; J2405; J2919; J7050; J7120; P9016; Q9967

== ENCOUNTER 2025-07-25 12:51 | Outpatient (CLI) | payer MEDICARE, OTHER, SELFPAY ==
--- OUTSIDE RECORDS SUMMARY | 2025-06-06 13:15 | XMS_ITS | Encounter Summary ---
Author Organization [facility] Address [address] [place] [address] Care Team Providers Care Thermocouple Tester Name Role Phone Abelardo Pappas MD Primary Care Provider [phone] Reason for Visit * Reason Comments Follow-up Encounter Details Date Type Department Care Team (Late st Contact Info) Description 06/06/2025 2:15 PM EDT Office Visit [facility] [address] [place] [phone] Justen Jaimes MD [address] [place] [address] Malignant neoplasm of prostate (CMS/HCC) (Primary Dx); Osteopenia of multiple sites Social History Tobacco Use Types Packs/Day Years [...] Sign Reading Time Taken Comments Blood Pressure 133/75 06/06/2025 2:11 PM EDT Pulse 64 06/06/2025 2:11 PM EDT Temperature 36.4 C (97.5 F) 06/06/2025 2:11 PM EDT Respiratory Rate - - Oxygen Saturation 92% 06/06/2025 2:11 PM EDT Inhaled Oxygen Concentration - - Weight 88.8 kg (195 lb 12.3 oz) 06/06/2025 2:11 PM EDT Height 188 cm (6' 2 ) 06/06/2025 2:11 PM EDT Body Mass Index 25.14 06/06/2025 2:11 PM EDT documented in this encounter Functional Status * Calculated C-SSRS Risk Score (Lifetime/Recent) Answer Date of Assessment Author No Risk Indicated 06/06/2025 3:40 PM EDT Fany Willis RN * Question Answer Date of Assessment Author 1. Wish to be (Past 1 Month) No 025 3:40 PM EDT Fany Willis, TAE 2. Non-Specific Active Suici cale Thoughts (Past 1 Month) No 06/06/2025 3:40 PM EDT Fany Willis RN 6. Suicidal Behavior (Lifetime) No 3:40 PM EDT Fany Willis RN documented as of this encounter Miscellaneous Notes * Progress Notes - Justen Jaimes MD - 06/06/2025 2:15 PM EDT [facility] Division of Hematology and Oncology Hematology/Oncology follow up visit Note Patient Name: Martin Lezama Date of : 1945 79 y.o. Date: 06/06/25 Reason for Consult: Prostate muscle Referred by radiation oncologist Dr.Lavey Cj Uriostegui MD, Urology Primary Diagnosis: Prostate cancer Osteopenia diagnosed March, Secondary diagnosis: AVR on Coumadin Hypertension Type 2 DM Rheumatoid arthritis on DMD Hypertension Subjective/interval history: Patient presented today accompanied by his to follow up for prostate cancer and to review his blood work He was seen and examined today Patient requested to be seen earlier because he has had back compression fracture and he underwent kyphoplasty with plan for another kyphoplasty Patient in March, has had bone density scan which showed osteopenia Rheumatology recommended to start denosumab Blood work from today are within acceptable values and PSA continued to trend down now it is down to 0.2 On December 07, 2024 he completed radiotherapy He is on Lupron every 6 months last was in February, with the Urology History of Present Illness: Martin Lezama is a 79 y.o. male with medical history significant for multiple comorbidities as listed above with a diagnosis of prostatic adenocarcinoma Oncology history: - PSA : - 11.5 with 22% free on 08/04/2023 - 13.4 with 21.9% free on 11/07/2023 - 19.4 on 01/30/2024 - 41.3 on 04/29/2024. He was then referred to Dr. Uriostegui, who found on digital rectal exam on 05/19/2024 and enlarged, symmetrical, nontender, smooth prostate without nodules, induration, or tenderness. - Prostate MRI on 06/22/2024 found a 3 cm PI-RADS 5 lesion in the medial right transitional zone at mid gland level extending to the posterior inferior midline and crossing midline to the left side. On 08/04/2024, MRI directed, transrectal ultrasound biopsies of the prostate pathology: Veblen 5+4 =9 adenocarcinoma involving between 5% and 100% of [...] left side of the prostate with large cribriformpattern present. - Dr. Uriostegui ordered GPS genomic analysis of the cancer cells with result pending. Pt had hematuria through his Beltre catheter following biopsy for which his catheter was irrigated several times in the emergency department. The Beltre catheter was removed on 08/09/2024. - Mr. Lezama was admitted to [facility] (formerly [facility]) from 08/10/2024 through 08/15/2024 for urinary retention and hematuria. Beltre catheter was placed in the emergency department on 08/10/2024 andwas removed on 08/14/2024. Patient stated since then no issue with hematuria Patient established with radiation oncologist Dr. Lepe on August 17, 2024 and he underwent further evaluation PSMA PET scan which was done on September 01, 2024 that revealed abdominal and pelvic lymphadenopathy mostly pelvic with the bilateral iliac lymphadenopathy with a small retroperitoneal lymphadenopathy On August 24, 2024 started LHRH agonist with Lupron every [address] Uriostegui Hematology/Oncology consulted for prostate cancer, he is here accompanied by his Today he denies any urinary symptoms, apart from chronic illnesses related symptoms otherwise he has no new symptoms or complaints Oncology History: [Associated problem not found] Oncology History Malignant neoplasm of prostate (CMS/HCC) 09/13/2024 Initial Diagnosis Malignant neoplasm of prostate (CMS/HCC) 09/13/2024 Cancer Staged Staging form: Prostate, AJCC 8th Edition, Clinical: Stage IVB (cTX, pM1a, PSA: 11, Grade Group: 4) - Signed by Justen Jaimes MD on 09/13/2024 Past Medical History: Past Medical History: Diagnosis Date Type 2 diabetes mellitus Past Surgical History: Past Surgical History: Procedure Laterality Date AORTIC VALVE SURGERY KNEE CARTILAGE SURGERY 1997 Family History: History reviewed. No pertinent family history. No family history of prostate cancer Social History: Patient lives in [place] with Social History Tobacco Use Smoking Status Former Current packs/day: 0.00 Types: Cigarettes Quit date: 1996 Years since quittin.7 Smokeless Tobacco Never Social History Substance and Sexual Activity Alcohol Use Not Currently Social History Substance and Sexual Activity Drug Use Not on file Allergies: Allergies Allergen Reactions Promethazine Unknown - Patient states they do not know rxn details Makes me loopy Medications: Current Outpatient Medications: atenolol (Tenormin) 50 MG tablet, , Disp: , Rfl: dapagliflozin (Farxiga) 10 MG tablet, Take 1 tablet (10 mg) by mouth 1 (one) time each day., Disp: , Rfl: glipiZIDE (Glucotrol) 5 MG tablet, Take 1.5 tablets (7.5 mg) by mouth 1 (one) time each day., Disp:, Rfl: hydroCHLOROthiazide (HYDRODiuril) 25 MG tablet, , Disp: , Rfl: HYDROcodone-acetaminophen ([place]) 5-325 MG tablet, TAKE ONE TABLET BY MOUTH EVERY 8 HOURS NEEDEDFOR PAIN MAY CAUSE DROWSINESS, Disp: , Rfl: lisinopril 2.5 MG tablet, Take 1 tablet by mouth daily., Disp: , Rfl: methocarbamol (Robaxin) 750 MG tablet, TAKE ONE TABLET BY MOUTH THREE TIMES DAILY MAY CAUSE DROWSINESS, Disp: , Rfl: methotrexate 2.5 MG tablet, TAKE FIVE TABLETS BY MOUTH EVERY 7 DAYS DIRECTED, Disp: , Rfl: oxybutynin XL (Ditropan-XL) 10 MG 24 hr tablet, TAKE ONE TABLET BY MOUTH EVERY DAY FOR urine urgency, Disp: , Rfl: simvastatin (Zocor) 20 MG tablet, , Disp: , Rfl: tamsulosin (Flomax) 0.4 MG 24 hr capsule, Take 1 capsule (0.4 mg) by mouth twice a day., Disp: , Rfl: warfarin (Coumadin) 1 MG tablet, Take 0.5 tablets (0.5 mg) by mouth 1 (one) time each day., Disp: ,Rfl: warfarin (Coumadin) 4 MG tablet, Take 1 tablet (4 mg) by mouth 1 (one) time each day., Disp: , Rfl: isoniazid (Nydrazid) 300 MG tablet, Take 1 tablet (300 mg) by mouth 1 (one) time each day. (Patientnot taking: Reported on 06/06/2025), Disp: , Rfl: omeprazole (PriLOSEC) [address] capsule, Take 1 capsule (20 mg) by mouth 1 (one) time each day. (Patient not taking: Reported on 06/06/2025), Disp: , Rfl: predniSONE (Deltasone) 5 MG tablet, Take 1 tablet (5 mg) by mouth. (Patient not taking: Reported on06/06/2025), Disp: , Rfl: pyridoxine (B-6) 100 MG tablet, Take 1 tablet (100 mg) by mouth 1 (one) time each day. (Patient nottaking: Reported on 06/06/2025), Disp: , Rfl: sildenafil (Viagra) 100 MG tablet, Take 1 tablet (100 mg) by mouth. (Patient not taking: Reported on 06/06/2025), Disp: , Rfl: Review of Systems: 14 ROS was conducted and is otherwise negative unless noted in HPI. Constitutional: No fever, no chills, night sweats, no weight changes HEENT: No sinus symptoms, no sore throat Eyes: No visual changes Respiratory: No cough, no shortness breath , no hemoptysis Cardiovascular: No chest pain, no palpitation, no edema. Aortic valve replacement on lifelong anticoagulation Gastrointestinal: No abdominal pain or changes in bowel habits, no appetite loss, no rectal bleeding, no hematemesis Urinary: As detailed in HPI Endocrine: Type 2 DM Neurological: No gross motor focal neurological weakness, no seizure, no tremor Psychiatry: No anxiety, no depression Skin: No skin rash, no bruises no ulcer Musculoskeletal: Chronic arthritis due to rheumatoid arthritis. Compression fracture of his spinal vertebra Hematological: No bleeding, no excessive bruises, no enlarged lymph nodes Objective Review of Systems - Oncology Wt Readings from Last 2 Encounters: 06/06/25 88.8 kg (195 lb 12.3 oz) 12/27/24 89.9 kg (198 lb 3.1 oz) Vital Signs: Visit Vitals BP 133/75 Pulse 64 Temp 36.4 ??C (97.5 ??F) (Temporal) BSA: Estimated body surface area is 2.15 meters squared as calculated from the following: Height as of this encounter: 1.88 m (6' 2 ). Weight as of this encounter: 88.8 kg (195 lb 12.3 oz). Performance Status Symptomatic; fully ambulatory PHYSICAL EXAM Physical Exam General: No acute distress; sitting upright in a chair, speaking in full sentences Head: normocephalic, atraumatic Cardiac: Regular rate and rhythm, mechanical valve sound Lungs: No respiratory distress, equal bilateral ,no audible wheeze Abdomen: soft, lax, no tender, rebound, no guarding Neuro: AAOx3, no gross focal motor neurological deficits Skin: no obvious rashes, excessive bruises or petechiae MSK: Chronic joint deformities due to RA . Wearing back brace Heme: no obvious bruising, no pallor, no bulky enlarged lymph nodes Psych: appropriate mood & affect Lab Findings: Lab Results Component Value Date WBC 7.99 04/29/2025 HGB 8.7 (L) 04/29/2025 HCT 28.5 (L) 04/29/2025 MCV 92.2 04/29/2025 PLT 252 04/29/2025 Lab Results Component Value Date GLUCOSE 101 (H) 06/06/2025 CALCIUM 9.1 04/29/2025 NA 144 06/06/2025 K 3.7 06/06/2025 CO2 27 06/06/2025 CL 103 04/29/2025 BUN 22 (H) 06/06/2025 CREATININE 0.97 06/06/2025 Lab Results Component Value Date ALT 32 06/06/2025 AST 25 06/06/2025 ALKPHOS 85 06/06/2025 BILITOT 0.3 06/06/2025 As detailed in HPI Imaging: [facility] [address] [place] [address] Patient Name: MARTIN LEZAMA Patient : 1945 Patient Ordering Provider: ZORAIDA LEPE EXAM DATE: 09/01/2024 EXAM: PET-CT PSMA SKULL MID THIGH INT ST CLINICAL INFORMATION: Prostate Cancer - Initial PROCEDURE: A baseline serum creatinine with eGFR was obtained prior to injection of contrast medium due to the patients risk factors for SALOMON. Calculated eGFR at time of exam was GFR =50 6.2 mCi Ga-68 PSMA ([facility] 21606-511-15) was injected IV. After an uptake time of 76 minutes, vertex through midthigh PET imaging was performed. This was followed by a low dose attenuation correction/anatomic localization CT from vertex through the midthigh levels. Urinary tract was opacified with an injection of 50 mL Omnipaque 350 (1 x 50 ml bottle of [facility] 0405-1011-34) administered [address] scan. [...] pelvis bilaterally Interpreted By: Tristan Escalona MD Assessment and Plan: Diagnoses and all orders for this visit: Malignant neoplasm of prostate (CMS/HCC) - CBC and Differential; Future - Comprehensive Metabolic Panel, Plasma; Future - PSA, percent free, profile; Future - Comprehensive Metabolic Panel, Plasma; Future - CBC and Differential; Future - PSA, percent free, profile; Future Osteopenia of multiple sites - Comprehensive Metabolic Panel, Plasma; Future - CBC and Differential; Future Other orders - denosumab (Prolia) 60 MG/ML injection 60 mg Assessment: Prostate cancer, Veblen score 4+5=9, PSA 41 -DX July, September 01, 2024 PSMA PET scan: PET avid prostate mass adenopathy in the pelvis bilateral and small retroperitoneal lymph nodes Aug 24, 2024 started Lupron every 6 months with the Urology Dr. Uriostegui - s/p radiotherapy completed December 07, 2024 - post RT/ ADT PSA significantly dropped to 1.6 Osteopenia on DEXA scan in March, Spinal compression fracture s/p kyphoplasty Recommendation: - I reviewed available medical records, labs, pathology ,imaging studies and obtained detailed H&P. I have lengthy discussion with the patient about his diagnosis, clinical stage, prognosis and options of care - I personally reviewed the imaging films of his PET-CT scan, I discussed the results with him and his Explained to the patient that he has advanced high-risk prostate cancer with high Erica score andlymph node involvement with a PSA >20 - s/pradiotherapy in addition to androgen deprivation therapy, discussed with the patient the options of adding abiraterone given the high-risk and retroperitoneal lymph node, however this is challenging particularly that patient reported showed with a blood sugar control he was on prednisone 10 mgfor rheumatoid arthritis Also patient on Coumadin for his valve replacement and that with the also carry other challenge forsystemic treatment - overall patient 79-year-old with multiple comorbidities and that is quite challenging, at this point I discussed with the patient - given his comorbidities and that he achieved very good response to ADT / RT, they are agreeable to continue with androgen deprivation therapy through Urology for about 2 years and closely monitor PSA - if PSA starts to elevate then we will re-evaluate with imaging study and plan for systemic treatment Other options would be continue with observation - Today, I reviewed and discussed his blood work which are within acceptable values actually PSA continued to trend down now it is down to 0.2, I discussed with the patient, he is currently on Lupronevery 6 months last was in February, and next in August, with Urology, I discussed with thepatient to discuss with Urology about consider holding LHRH agonist given osteopenia and compression fraction - Patient was diagnosed with a osteopenia in March, on DEXA scan, also he has had spinal compression fracture required kyphoplasty with a plan for another kyphoplasty I reviewed and discussed over the phone with his neurology technologist Dr. Kincaid, who recommended bone antiresorptive agent I am in agreement particularly given multiple risk factor, he was on long-term steroids for about ayear for his rheumatoid arthritis, also LHRH agonist, age and rheumatoid arthritis all this multiple factor can come to play causing bone density loss Discussed with him been on active treatment with LHRH agonist/antiandrogen, I recommended to start denosumab 60 mg subQ every 6 months, I reviewed and discussed potential side effects and toxicities which include but not limited to jaw osteonecrosis, severe hypocalcemia etc. After lengthy discussion, patient is interested to start denosumab He follows with Rheumatology and spine surgery I recommended follow up bone density scan in 2 years Follow up in about 25 weeks (around 11/28/2025) for Office Visit, Labs - See Treatment Plan, Infusion - See Treatment Plan. I answered all their questions, they verbalized and in agreement. Jutsen Jaimes MD Medical Oncology/Hematology documented in this encounter Plan of Treatment Upcoming Encounters Date Type Department Care Team (Late st Contact Info) Description 11/28/2025 2:00 PM EDT Office Visit [facility] [address] [place] [address] 11/28/2025 3:00 PM EDT Office Visit [facility] [address] [place] [address] Justen Jaimes MD [address] [place] [phone] 11/28/2025 3:15 PM EDT Clinical Support [facility] [address] [place] [phone] Scheduled Orders Name Type Priority Associated Diagnoses Orde r Schedule Comprehensive Metabolic Panel, Plasma Lab Routine Malignant neoplasm of prostate (CMS/HCC) Osteopenia of multiple sites Expected: 12/04/2025 (Approximate), Expires: 12/08/2026 CBC and Differential Lab Routine Malignant neoplasm of prostate (CMS/HCC) Osteopenia of multiple sites Expected: 12/04/2025 (Approximate), Expires: 12/08/2026 PSA, percent free, profile Lab STAT Malignant neoplasm of prostate (CMS/HCC) Expected: 12/04/2025 (Approximate), Expires: 12/08/2026 documented as of this encounter Procedures Procedure Name Priority Date/Time Associated Diagnosis Comments CBC WITH AUTO DIFFERENTIAL STAT 06/06/2025 1:50 PM EDT Malignant neoplasm of prostate (CMS/HCC) PROSTATE SPECIFIC ANTIGEN, FREE PERCENTAGE (INCLUDES FREE PSA AND TOTAL PSA) (SO) STAT 06/06/2025 1:50 PM EDT Malignant neoplasm of prostate (CMS/HCC) COMPREHENSIVE METABOLIC PANEL, PLASMA STAT 06/06/2025 1:50 PM EDT Malignant neoplasm of prostate (CMS/HCC) documented in this encounter Results * PSA, percent free, profile (06/06/2025 1:50 PM EDT) External Prostate Specific Antigen (PSA) 0.269 0.000 - 4.400 ng/mL 06/06/2025 3:01 PM EDT [facility] Comment: This test was performed using Estefania e801 Electrochemiluminescent method. The test method is based on WHO-standardized calibration. Values obtained from different assay methods or manufacturers may not be comparable. External Psa, Free 0.17 ng/mL 2024 3:01 PM EDT [facility] Comment: Test method is based on WHO-standardized calibration using the Estefania E801 analyzer. Free PSA results by different test procedures cannot be directly compared with one another. External Psa- % Free 63 % 05/17 3:01 PM EDT [facility] Comment: PSA ng/mL % FREE PSA Probability of Prostate Cancer % Less than 4.00 N/A 17% 4.0 - 10.0 0-10 56% 10-15 28% 15-20 20% 20-25 16% Greater than 25 8% Greater than 10.0 N/A 49% Blood Venous blood specimen / Unknown 06/06/2025 1:50 PM EDT 06/06/2025 2:21 PM EDT us Justen Jaimes MD LAB BLOOD ORDERABLES Flaca l Result [facility] [address] [place] [address], * (ABNORMAL) Comprehensive Metabolic Panel, Plasma (06/06/2025 1:50 PM EDT) External Glucose 101(H) 74 - 100 mg/dL 06/06/2025 2:55 PM EDT [facility] External BUN 22(H) 6 - 20 mg/dL 06/06/2025 2:55 PM EDT [facility] External Creatinine Blood 0.97 0.70 - 1.20 mg/dL 06/06/2025 2:55 PM EDT [facility] External BUN/Creat Ratio 23(H) 10 - 20 (calc) 06/06/2025 2:55 PM EDT [facility] External Sodium 144 136 - 145 mmol/L 06/06/2025 2:55 PM EDT [facility] External Potassium 3.7 3.4 - 5.0 mmol/L 06/06/2025 2:55 PM EDT [facility] External Chloride 103 98 - 107 mmol/L 06/06/2025 2:55 PM EDT [facility] External Carbon Dioxide (CO2) 27 22 - 31 mmol/L 06/06/2025 2:55 PM T [facility] External Anion Gap (AG) 14 7 - 25 (calc) 06/06/2025 2:55 PM T [facility] External Calcium 10.0 8.6 - 10.2 mg/dL 06/06/2025 2:55 PM T [facility] External Total Protein 6.9 6.4 - 8.3 g/dL 06/06/2025 2:55 PM EDT [facility] External Albumin 4.4 3.5 - 5.2 g/dL 06/06/2025 2:55 PM T [facility] External Globulin 2.5 1.5 - 4.5 025 2:55 PM T [facility] External Albumin/Globulin Ratio 1.8 1.1 - 2.5 (calc) 06/06/2025 2:55 PM T [facility] External Bilirubin Total 0.3 0.1 - 1.0 mg/dL 06/06/2025 2:55 PM T [facility] Comment:NOTE: New reference range. External Alkaline Phosphatase 85 40 - 129 U/L 06/06/2025 2:55 PM T [facility] External AST (SGOT) 25 0 - 40 U/L 06/06/2025 2:55 PM EDT [facility] External ALT (SGPT) 32 0 - 41 U/L 06/06/2025 2:55 PM EDT [facility] External Estimated GFR 80 >=60 06/06/2025 2:55 PM EDT [facility] Comment: NOTE New calculation for GFR (CKD-EPI 2020) is formulated without race adjustment factors at the recommendation of the National Kidney Foundation and [place] [employer]ph[employer]. This calculation has not been validated in women. For pediatric patients refer to https://www.kidney.org/professionals/KDOQI/gfr_calculatorPed Blood Venous blood specimen / Unknown 06/06/2025 1:50 PM EDT 06/06/2025 2:21 PM EDT us Justen Jaimes MD LAB BLOOD ORDERABLES Flaca ledezma Result [facility] [address] [place] [address], * (ABNORMAL) CBC and Differential (06/06/2025 1:50 PM EDT) External WBC 5.5 3.8 - 10.8 10*3/uL 06/06/2025 4:06 PM EDT [facility] External Red Blood Cell (RBC) 3.67(L) 4.20 - 5.80 10*6/uL 06/06/2025 4:06 PM EDT [facility] External Hemoglobin 10.3(L) 14.0 - 18.0 g/dL 06/06/2025 4:06 PM EDT [facility] External Hematocrit 32.8(L) 40.0 - 52.0 % 06/06/2025 4:06 PM EDT [facility] External MCV 89 80 - 100 fL 06/06/2025 4:06 PM EDT [facility] External MCH 28 26 - 35 pg 06/06/2025 4:06 PM EDT [facility] External MCHC 31(L) 32 - 36 g/dL 06/06/2025 4:06 PM EDT [facility] External RDW 23.0(H) 11.0 - 15.0 % 06/06/2025 4:06 PM EDT [facility] External Mean Platelet Volume 7.3 6.2 - 10.5 fL 06/06/2025 4:06 PM EDT [facility] External Platelet Count (Plt) 326 150 - 400 10*3/uL 06/06/2025 4:06 PM EDT [facility] External Neutrophil# 3.5 1.6 - 8.4 10*3/uL 06/06/2025 4:06 PM EDT [facility] External Lymphocyte# 0.7 0.4 - 5.1 10*3/uL 06/06/2025 4:06 PM EDT [facility] External Absolute Monocyte (Abs [facility]) 0.5 0.0 - 1.2 10*3/uL 06/06/2025 4:06 PM EDT [facility] External Eosinophils# 0.7 0.0 - 0.8 10*3/uL 06/06/2025 4:06 PM EDT [facility] External Baso# 0.1 0.0 - 0.3 10*3/uL 06/06/2025 4:06 PM EDT [facility] Comment:Smear reviewed to co nfirm cell morphology. External Neutrophils % 63.9 42.0 - 78.0 % 06/06/2025 4:06 PM EDT [facility] External Lymphocyte % 13.1 11.0 - 47.0 % 06/06/2025 4:06 PM EDT [facility] External Monocyte % 8.8 0.0 - 11.0 % 06/06/2025 4:06 PM EDT [facility] External Eosinophil% 13.2(H) 0.0 - 7.0 % 06/06/2025 4:06 PM EDT [facility] External Basophil % 1.0 0.0 - 3.0 % 06/06/2025 4:06 PM T [facility] External Nucleated RBC%-Auto 0.3 0.0 - 0.9 % 06/06/2025 4:06 PM T [facility] External Nucleated RBC Absolute 0.02 Not Estab. 10*3/uL 06/06/2025 4:06 PM T [facility] Blood Venous blood specimen / Unknown 06/06/2025 1:50 PM EDT 06/06/2025 2:21 PM EDT Justen Jaimes MD LAB BLOOD ORDERABLES Flaca ledezma Result Performing Organization Address City/State/[facility] Co de Phone Number [facility] [address] [place] [address], documented in this encounter Visit Diagnoses Diagnosis Malignant neoplasm of prostate (CMS/HCC)- Primary Malignant neoplasm of prostate Osteopenia of multiple sites documented in this encounter Additional Health Concerns Assessment Noted Time PHQ-9 Depression Total Score: 0 12/28/19 1:21 PM EDT A fall risk assessment has been complete d for the patient 06/06/2025 3:46 PM EDT documented as of this encounter Care Teams Thermocouple Tester Relationship Specialty Start Date End Date Abelardo Pappas MD [address] [place] [address] PCP - General 06/04/25 documented as of this encounter
--- OUTSIDE RECORDS SUMMARY | 2025-06-06 13:30 | XMS_ITS | Encounter Summary ---
Author Organization [facility] Address [address] [place] [address] Care Team Providers Care Port Purser Name Role Phone Abelardo Pappas MD Primary Care Provider [phone]- [phone] Reason for Visit * Reason Comments Injections * Episode Based Medications (Routine) - Authorized Specialty Diagnoses / Procedures Referred By Contdarien t Referred To Contact Diagnoses Osteopenia of multiple sites Justen Jaimes MD [address] [address] Phone: tel: fax: Justen Jaimes MD [address] [address] Phone: tel: fax: Referral ID Status Reason Start Date Expiration Date V isits Requested Visits Authorized [id number] Authorized 06/13/2025 12/13/2026 1 2 Encounter Details Date Type Department Care Team (Late st Contact Info) Description 06/06/2025 2:30 PM EDT Infusion [facility] [address] [address] Osteopenia of multiple sites (Primary Dx) Social History Tobacco Use Types Packs/Day Years Used Date Smoking Tobacco: Former Cigarettes Q uit: 1996 Smokeless Tobacco: Never Tobacco Cessation:Counseling Given: Not Answered Alcohol Use Standard Drinks/Week Comments Not Currently [...] Time Taken Comments Blood Pressure 133/75 06/06/2025 3:40 PM EDT Pulse 64 06/06/2025 3:40 PM EDT Temperature 36.4 C (97.5 F) 06/06/2025 3:40 PM EDT Respiratory Rate - - Oxygen Saturation 92% 06/06/2025 3:40 PM EDT Inhaled Oxygen Concentration - - Weight - - Height - - Body Mass Index - - documented in this encounter Functional Status * Calculated C-SSRS Risk Score (Lifetime/Recent) Answer Date of Assessment Author No Risk Indicated 06/06/2025 3:40 PM EDT Fany Willis RN * Question Answer Date of Assessment Author 1. Wish to be (Past 1 Month) No 025 3:40 PM EDT Fany Willis RN 2. Non-Specific Active Suici cale Thoughts (Past 1 Month) No 06/06/2025 3:40 PM EDT Fany Willis RN 6. Suicidal Behavior (Lifetime) No 3:40 PM EDT Fany Willis RN documented as of this encounter Miscellaneous Notes * Giselle Huang - Fany Willis RN - 06/06/2025 3:26 PM EDT Images from the original note were not included. [id number] Denosumab Injection IMPORTANT WARNING: Denosumab injection products may cause serious or life-threatening low calcium levels in your blood. Tell your doctor if you have or have ever had low levels of calcium in your blood. Your doctor will probably check the level of calcium in your blood before you begin treatment and will probably tell you not to receive a denosumab injection product if the level is too low. Also, tell your doctor if you are receiving dialysis treatments or are taking medications to lower your calcium levels or ifyou have or have ever had kidney problems; hypoparathyroidism (condition in which the body does notproduce enough parathyroid hormone [PTH; a natural substance needed to control the amount of calcium in the blood]); malabsorption problems (problems with your stomach or intestine that make it difficult for your body to absorb nutrients); surgery on your thyroid gland or parathyroid gland (small gland in the neck); or surgery to remove part of your small intestine. Your doctor will monitor your blood calcium levels during your treatment. If you experience any of the following symptoms during your treatment, call your doctor immediately: numbness or tingling in your fingers, toes, or around your mouth; or muscle stiffness, twitching, cramps, or spasms. Your doctor or pharmacist will give you the pace analyst's patient information sheet (Medication Guide) when you begin treatment with denosumab injection products. Read the information carefully and ask your doctor or pharmacist if you have any questions. You can also visit the Food and Drug Administration (FDA) website (https://www.fda.gov/Drugs/DrugSafety/wec108112.htm) (or the pace analyst's website) to obtain the Medication Guide. Talk to your doctor about the risks of receiving denosumab injection products. WHY is this medicine prescribed? Denosumab injection products (Prolia??, Jubbonti??) are used ? to treat osteoporosis (a condition in which the bones become thin and weak and break easily) in women who have undergone menopause (''change of life;'' end of menstrual periods) who have an increased risk for fractures (broken bones) or who cannot take or did not respond to other medication treatments for osteoporosis. ? to treat men who have an increased risk for fractures (broken bones) or who cannot take or did not respond to other medication treatments for osteoporosis. ? treat osteoporosis that is caused by corticosteroid medications in men and women who will be taking corticosteroid medications for at least 6 months and have an increased risk for fractures or who cannot take or did not respond to other medication treatments for osteoporosis. ? to treat bone loss in men who are being treated for prostate cancer with certain medications thatcause bone loss, ? to treat bone loss in women with breast cancer who are receiving certain medications that increase their risk for fractures. Denosumab injection products (Xgeva??, Wyost??) are used Denosumab injection is in a class of medications called RANK ligand inhibitors. It works to prevent bone loss by blocking a certain receptor in the body to decrease bone breakdown. It works to treat GCTB by blocking a certain receptor in the tumor cells which slows the tumor growth. It works to treat high calcium levels by decreasing bone breakdown as the breakdown of bones releases calcium. ? to reduce the risk of fractures in people who have multiple myeloma (cancer that begins in the plasma cells and causes bone damage), and in people who have certain types of cancer that began in another part of the body but has spread to the bones. ? in adults and some adolescents to treat giant cell tumor of bone (GCTB; a type of bone tumor) that cannot be treated with surgery. ? to treat high calcium levels that are caused by cancer in people who did not respond to other medications. HOW should this medicine be used? Denosumab injection products come as a solution (liquid) to be injected subcutaneously (under the skin) in your upper arm, upper thigh, or stomach area. It is usually injected by a doctor or nurse doug medical office or clinic. When a denosumab injection product (Prolia??, Jubbonti??) is used to treat osteoporosis or bone loss, it is usually given once every 6 months. When a denosumab injection product (Wyost??, Xgeva??) is used to reduce the risk of fractures from multiple myeloma, or cancer that has spread to the bones, it is usually given once every 4 weeks. When a denosumab injection product (Wyost??, Xgeva??) is used to treat giant cell tumor of bone, or high calcium levels caused by ca ncer, it is usually given every 7 days for the first three doses (on day 1, day 8, and day 15) and then once every 4 weeks starting 2 weeks after the first three doses. Your doctor will tell you to take supplements of calcium and vitamin D while you are being treated with denosumab injection products. Take these supplements exactly as directed. Ask your pharmacist or doctor for a copy of the pace analyst's information for the patient. Are there OTHER USES for this medicine? This medication may be prescribed for other uses; ask your doctor or pharmacist for more information. What SPECIAL PRECAUTIONS should I follow? Before receiving denosumab injection products, ? tell your doctor and pharmacist if you are allergic to denosumab (Jubbonti??, Prolia??, Wyost??, Xgeva??), any other medications, or any of the ingredients in denosumab injection products. Ask yourpharmacist or check the Medication Guide for a list of the ingredients. ? you should know that denosumab injection products are available under the brand names Jubbonti??,Prolia??, Wyost?? and Xgeva??. You should not receive more than one product containing denosumab atthe same time. Be sure to tell your doctor if you are being treated with any of these medications. ? tell your doctor and pharmacist what other prescription and nonprescription medications, vitamins, nutritional supplements, and herbal products you are taking or plan to take. Your doctor may need to change the doses of your medications or monitor you carefully for side effects. ? tell your doctor if you have or have ever had anemia (condition in which the red blood cells do not bring enough oxygen to all the parts of the body); cancer; any type of infection, especially in your mouth; problems with your mouth, teeth, gums, or dentures; dental or oral surgery (teeth removed, dental implants); any condition that stops your blood from clotting normally; any condition that decreases functioning of your immune system; polymyalgia rheumatica (disorder that causes muscle painand weakness); high cholesterol; or diabetes. ? tell your doctor if you are , plan to become , or are . You will need to have a negative test before starting treatment with denosumab injection products. Youshould not become while you are receiving denosumab injection products. You should use a reliable method of control to prevent while you are receiving denosumab injection products and for at least 5 months after your final treatment. If you become while receiving denosumab injection products, or within 5 months of your treatment, call your doctor immediately. Denosumab may harm the fetus. ? you should know that denosumab injection products may cause osteonecrosis of the jaw (ONJ, a serious condition of the jaw bone), especially if you have dental surgery or treatment while you are receiving this medication. A dentist should examine your teeth and perform any needed treatments, including cleaning or fixing ill-fitted dentures, before you start to receive a denosumab injection product. Be sure to brush your teeth and clean your mouth properly while you are receiving denosumab injection products. Talk to your doctor before having any dental treatments while you are receiving thismedication. What SPECIAL DIETARY instructions should I follow? Unless your doctor tells you otherwise, continue your normal diet. What should I do IF I FORGET to take a dose? If you miss an appointment to receive an injection of a denosumab product, you should call your healthcare provider as soon as possible. The missed dose should be given as soon as it can be rescheduled. When a denosumab injection product (Jubbonti??, Prolia??) is used for osteoporosis or bone loss,after you receive the missed dose, your next injection should be scheduled 6 months from the date of your last injection. What SIDE EFFECTS can this medicine cause? Some side effects can be serious. If you experience any of these symptoms or those listed in the IMPORTANT WARNING section, call your doctor immediately or get emergency medical treatment: ? hives, rash, itching, difficulty breathing or swallowing, swelling of the face, eyes, throat, tongue or lips, ? fever or chills ? redness, tenderness, swelling or warmth of area of skin ? fever, cough, shortness of breath ? ear drainage or severe ear pain ? frequent or urgent need to urinate, burning feeling when you urinate ? severe abdominal pain ? painful or swollen gums, loosening of the teeth, numbness or heavy feeling in the jaw, poor healing of the jaw ? unusual bleeding or bruising ? nausea, vomiting, headache, and decreased alertness after stopping denosumab and for up to 1 yearafterwards ? new or unusual thigh, hip, or groin pain Denosumab injection products may increase the risk that you will break your thigh bone(s). You may feel pain in your hips, groin, or thighs for several weeks or months before the bone(s) break, and you may find that one or both of your thigh bones have broken even though you have not fallen or experienced other trauma. It is unusual for the thigh bone to break in healthy people, but people who have osteoporosis may break this bone even if they do not receive denosumab injection products. Denosumab injection products may also cause broken bones to heal slowly and may impair bone growth and prevent teeth from coming in properly in children. Denosumab injection products may also increase the risk of spinal (back) fractures months to years after your treatment is discontinued. Tell your doctor if you have ever had a broken bone in your spine. Your doctor will probably tell you to take another medication to prevent fractures after you stop receiving denosumab injection products. Talk to your doctor about the risks of receiving denosumab injection products. Denosumab injection products may cause other side effects. Call your doctor if you have any unusualproblems while receiving this medication. If you experience a serious side effect, you or your doctor may send a report to the Food and Drug Administration's (FDA) MedWatch Adverse Event Reporting program online (https://www.fda.gov/Safety/MedWatch) or by phone ( ). What OTHER INFORMATION should I know? Keep all appointments with your doctor and the laboratory. Your doctor will order certain tests to be sure it is safe for you to receive denosumab injection and to check your body's response to denosumab injection. Do not let anyone else use your medication. Ask your pharmacist any questions you have about refilling your prescription. Keep a written list of all of the prescription and nonprescription (uxey-yrr-pfawgpv) medicines, vitamins, minerals, and dietary supplements you are taking. Bring this list with you each time you visit a doctor or if you are admitted to the hospital. You should carry the list with you in case of holden rgencies. Brand Name(s): ? Jubbonti?? (denosumab-bbdz) ? Prolia?? ? Wyost?? (denosumab-bbdz) ? Xgeva?? This report on medications is for your information only, and is not considered individual patient advice. Because of the changing nature of drug information, please consult your physician or pharmacist about specific clinical use. The [employer] [place] represents that the information provided hereunder was formulated with a reasonable standard of care, and in conformity with professional standards in the field. The [place] makes no representations or warranties, express or implied, including, but not limited to, any implied warranty of merchantability and/or fitness for a particular purpose, with respect to such information and specifically disclaims all such warranties. Users are advised that decisions regarding drug therapy are complex medical decisions requiring the independent, informed decision of an appropriate health respiratory care program director, and the information is provided for informational purposes only. The entire monograph for a drug should be reviewed for a thorough understanding of the drug's actions, uses and side effects. The [employer] [place] does not endorse or recommend the use of any drug.The information is not a substitute for medical care. AHFS?? Patient Medication Information?. ?? Copyright, 2023. The [employer] [place]??, [address], [address], [place], [place]. All Rights Reserved. Duplication for commercial use must be authorized by [facility]. AHFS?? Patient Medication Information?. ?? Copyright, 2024 documented in this encounter Plan of Treatment Upcoming Encounters Date Type Department Care Team (Late st Contact Info) Description 11/28/2025 2:00 PM EDT Office Visit [facility] at [address] [address] 11/28/2025 3:00 PM EDT Office Visit [facility] at [address] [phone] Justen Jaimes MD [address] [place] [phone] 11/28/2025 3:15 PM EDT Clinical Support [facility] at [address] [address] documented as of this encounter Visit Diagnoses Diagnosis Osteopenia of multiple sites- Primary documented in this encounter Administered Medications Inactive Administered Medications - up to 3 most recent administrations Medication Order MAR Action Action Date Dose Rate Site denosumab (Prolia) 60 MG/ML injection 60 mg 60 mg, Subcutaneous, Once, Avoid vigorous shaking of syringe; Prior to administration, bring to room temperature in original container for about 15 to 30 minutes; Administer via subcutaneous route in upper arm, upper thigh, or abdomen, On Fri06/06/25 at 1545, For 1 doseIndications:Osteopenia of multiple sites Given 06/06/2025 3:40 PM EDT 60 mg Left Upper Arm (Back) documented in this encounter Additional Health Concerns Assessment Noted Time PHQ-9 Depression Total Score: 0 12/28/19 1:21 PM EDT A fall risk assessment has been complete d for the patient 06/06/2025 3:46 PM EDT documented as of this encounter Care Teams Port Purser Relationship Specialty Start Date End Date Abelardo Pappas MD [address] [place] [address] PCP - General 06/04/25 documented as of this encounter
--- OUTSIDE RECORDS SUMMARY | 2025-07-25 12:55 | XMS_ITS | Clinical Summary ---
Author Organization [facility] Address [address] [place] [address] Care Team Providers Care Video Camera Operator Name Role Phone Provider, No Known [...] - 04/29/2025 3:55 PM EDT Hospital Encounter [address] [place] [address] Serafin Villalpando MD Frandina, John L, MD [...] 27(H) <22 ng/L 04/29/2025 1:19 PM EDT [facility] Blood Venipuncture / Unknown 04/29/2025 12:34 PM EDT 04/29/2025 12:57 PM EDT Narrative [facility] - 04/29/2025 1:19 PM EDT High [...] ORDERABLES Final Re sult Performing Organization Address [facility] Co de Phone Number [facility]
[address] [place] [address], * (ABNORMAL) POC Glucose Once (04/29/2025 11:16 AM EDT) Only the most recent of3 resultswithin the time period is included. Glucose 185(H) 70 - 130 mg/dL 04/29/2025 11:17 AM EDT [facility] Blood 04/29/2025 11:1 6 AM EDT 04/29/2025 11:17 AM EDT Clementina Moreno MD POINT OF CARE TEST ORDERABLES Final Result Performing Organization Address [facility] de Phone Number [facility]
[address] [place] [address], * (ABNORMAL) Protime-INR (04/29/2025 4:30 AM EDT) Only the most recent of2 resultswithin the time period is included. Protime 15.2 12.2 - 15.3 Seconds 04/29/2025 5:18 AM EDT [facility] INR 1.13(H) 0.89 - 1.12 04/29/2025 5:18 AM EDT [facility] Blood Venipuncture / Unknown 04/29/2025 4:30 AM EDT 04/29/2025 4:59 AM EDT Tristan Carr MD LAB BLOOD ORDERABLES Final Re sult Performing Organization Address [facility] Co de Phone Number [facility]
[address] [place] [address], [place] [phone] * (ABNORMAL) CBC (No Diff) (04/29/2025 4:30 AM EDT) WBC 7.99 3.40 - 10.80 10*3/mm3 04/29/2025 5:10 AM EDT [facility] RBC 3.09(L) 4.14 - 5.80 10*6/mm3 04/29/2025 5:10 AM EDT [facility] Hemoglobin 8.7(L) 13.0 - 17.7 g/dL 04/29/2025 5:10 AM EDT [facility] Hematocrit 28.5(L) 37.5 - 51.0 % 04/29/2025 5:10 AM EDT [facility] MCV 92.2 79.0 - 97.0 fL 04/29/2025 5:10 AM EDT [facility] MCH 28.2 26.6 - 33.0 pg 04/29/2025 5:10 AM EDT [facility] MCHC 30.5(L) 31.5 - 35.7 g/dL 04/29/2025 5:10 AM EDT [facility] RDW 19.8(H) 12.3 - 15.4 % 04/29/2025 5:10 AM EDT [facility] RDW-SD 66.5(H) 37.0 - 54.0 fl 04/29/2025 5:10 AM EDT [facility] MPV 9.1 6.0 - 12.0 fL 04/29/2025 5:10 AM EDT [facility] Platelets 252 140 - 450 10*3/mm3 04/29/2025 5:10 AM EDT [facility] Blood Venipuncture / Unknown 04/29/2025 4:30 AM EDT 04/29/2025 4:59 AM EDT us Vaishali Priest BENDING MACHINE OPERATOR LAB BLOOD ORDERABLES Final Re sult [facility]
[address] [place] [address], * (ABNORMAL) Comprehensive Metabolic Panel (04/29/2025 4:30 AM EDT) Only the most recent of2 resultswithin the time period is included. Glucose 123(H) 65 - 99 mg/dL 04/29/2025 5:33 AM EDT [facility] BUN 18.7 8.0 - 23.0 mg/dL 04/29/2025 5:33 AM EDT [facility] Creatinine 0.86 0.76 - 1.27 mg/dL 04/29/2025 5:33 AM EDT [facility] Sodium 139 136 - 145 mmol/L 04/29/2025 5:33 AM EDT [facility] Potassium 3.7 3.5 - 5.2 mmol/L 04/29/2025 5:33 AM EDT [facility] Chloride 103 98 - 107 mmol/L 04/29/2025 5:33 AM EDT [facility] CO2 26.0 22.0 - 29.0 mmol/L 04/29/2025 5:33 AM EDT [facility] Calcium 9.1 8.6 - 10.5 mg/dL 04/29/2025 5:33 AM EDT [facility] Total Protein 6.0 6.0 - 8.5 g/dL 04/29/2025 5:33 AM EDT [facility] Albumin 3.9 3.5 - 5.2 g/dL 04/29/2025 5:33 AM EDT [facility] ALT (SGPT) 33 1 - 41 U/L 04/29/2025 5:33 AM EDT [facility] AST (SGOT) 28 1 - 40 U/L 04/29/2025 5:33 AM EDT [facility] Alkaline Phosphatase 70 39 - 117 U/L 04/29/2025 5:33 AM EDT [facility] Total Bilirubin 0.4 0.0 - 1.2 mg/dL 04/29/2025 5:33 AM EDT [facility] Globulin 2.1 gm/dL 04/29/2025 5:33 AM EDT [facility] Comment:Calculated Result A/G Ratio 1.9 g/dL 04/29/2025 5:33 AM EDT [facility] BUN/Creatinine Ratio 21.7 7.0 - 25.0 04/29/2025 5:33 AM EDT [facility] Anion Gap 10.0 5.0 - 15.0 mmol/L 04/29/2025 5:33 AM EDT [facility] eGFR 89.2 >60.0 mL/min/1.7 3 04/29/2025 5:33 AM EDT [facility] Blood Venipuncture / Unknown 04/29/2025 4:30 AM EDT 04/29/2025 4:59 AM EDT Narrative [facility] - 04/29/2025 5:33 AM EDT GFR [...] race as a factor us Vaishali Priest BENDING MACHINE OPERATOR LAB BLOOD ORDERABLES Final Re sult [facility]
[address] [place] [address], * (ABNORMAL) Blood Gas, Venous With Co-Ox (04/28/2025 8:46 PM EDT) Site Nurse/Dr Johnson 04/28/2025 8:46 PM EDT [facility] pH, Venous 7.393 7.310 - 7.410 pH Units 04/28/2025 8:46 PM EDT [facility] pCO2, Venous 50.3 41.0 - 51.0 mm Hg 04/28/2025 8:46 PM EDT [facility] pO2, Venous 28.0 27.0 - 53.0 mm Hg 04/28/2025 8:46 PM EDT [facility] HCO3, Venous 30.6(H) 22.0 - 28.0 mmol/L 04/28/2025 8:46 PM EDT [facility] Base Excess, Venous 4.9(H) -2.0 - 2.0 mmol/L 04/28/2025 8:46 PM EDT [facility] Hemoglobin, Blood Gas 9.6(L) 13.5 - 17.5 g/dL 04/28/2025 8:46 PM EDT [facility] Oxyhemoglobin Venous 44.5 % 04/15 8:46 PM EDT [facility] Comment:84 Value below refer ence range Methemoglobin Venous 0.5 % 04/15 8:46 PM EDT [facility] Carboxyhemoglobin Venous 1.6 % 04/28/2025 8:46 PM EDT [facility] CO2 Content 32.2 22 - 33 mmol/L 04/28/2025 8:46 PM EDT [facility] Temperature 37.0 04/28/2025 8:46 PM EDT [facility] Barometric Pressure for Blood Gas 04/28/2025 8:46 PM EDT [facility] Comment:N/A Modality Nasal Cannula 04/28/2025 8:46 PM EDT [facility] FIO2 24 % 04/28/2025 8:46 PM EDT [facility] Rate 0 Breaths/ minute 04/28/2025 8:46 PM EDT [facility] PIP 0 cmH2O 04/28/2025 8:46 PM EDT [facility] Comment:Meter: [id number] Supervisor Cartography: [id number] IPAP 0 04/28/2025 8:46 PM EDT [facility] EPAP 0 04/28/2025 8:46 PM EDT [facility] Venous Blood 04/28/2025 8:46 PM EDT 04/28/2025 8:46 PM EDT Tristan Carr MD LAB BLOOD ORDERABLES Final Re sult Performing Organization Address City/[facility]/ZIP Co de Phone Number [facility]
[address] * (ABNORMAL) High Sensitivity Troponin T 1Hr (04/28/2025 6:59 PM EDT) HS Troponin T 25(H) <22 ng/L 04/28/2025 7:30 PM EDT [facility] Troponin T Numeric Delta 10(HH) Abnormal if >/=3 ng/L 04/28/2025 7:30 PM EDT [facility] Blood Venipuncture / Unknown 04/28/2025 6:59 PM EDT 04/28/2025 7:02 PM EDT Narrative [facility] - 04/28/2025 7:30 PM EDT High [...] ORDERABLES Final R esult Performing Organization Address City/[facility]/ZIP Co de Phone Number [facility]
[address] [place] [address], * XR Chest 1 View (04/28/2025 6:16 PM EDT) Anatomical Region Laterality Modality Body N/A Radiographic Nubia ging 04/28/2025 6:25 PM EDT Impressions 04/28/2025 6:26 PM EDT Impression: No acute cardiopulmonary disease. Electronically Signed: Connor Hall MD 04/28/2025 6:26 PM EDT Workstation ID: [id number] Narrative 04/28/2025 6:26 PM EDT XR CHEST [...] MD 04/28/2025 6:26 PM EDT Workstation ID: [id number] Serafin Villalpando MD IM DIAGNOSTIC IMAGING ORDER [...] Hold for add-ons. 04/28/2025 5:45 PM EDT [facility] Comment:Auto resulted. Blood Line / Unknown 04/28/2025 5: 33 PM EDT 04/28/2025 5:38 PM EDT Serafin Villalpando MD LAB BLOOD ORDER ONLY Final R esult [facility]
[address] [place] [address], * Gold Top - [facility] (04/28/2025 5:33 PM EDT) Extra Tube Hold for add-ons. 04/28/2025 5:45 PM EDT [facility] Comment:Auto resulted. Blood Line / Unknown 04/28/2025 5: 33 PM EDT 04/28/2025 5:38 PM EDT Serafin Villalpando MD LAB BLOOD ORDER ONLY Final R esult Performing Organization Address City/[facility]/ZIP Co de Phone Number [facility]
[address] [place] [address], * Green Top (Gel) (04/28/2025 5:33 PM EDT) [facility] Extra Tube Hold for add-ons. 04/28/2025 5:45 PM EDT [facility] Comment:Auto resulted. Blood Line / Unknown 04/28/2025 5: 33 PM EDT 04/28/2025 5:38 PM EDT Serafin Villalpando MD LAB BLOOD ORDER ONLY Final R esult Performing Organization Address [facility]/ZIP Co de Phone Number [facility]
[address] [place] [address], * (ABNORMAL) CBC Auto Differential (04/28/2025 5:33 PM EDT) [facility] WBC 5.30 3.40 - 10.80 10*3/mm3 04/28/2025 5:41 PM EDT [facility] RBC 3.60(L) 4.14 - 5.80 10*6/mm3 04/28/2025 5:41 PM EDT [facility] Hemoglobin 10.3(L) 13.0 - 17.7 g/dL 04/28/2025 5:41 PM EDT [facility] Hematocrit 33.3(L) 37.5 - 51.0 % 04/28/2025 5:41 PM EDT [facility] MCV 92.5 79.0 - 97.0 fL 04/28/2025 5:41 PM EDT [facility] MCH 28.6 26.6 - 33.0 pg 04/28/2025 5:41 PM EDT [facility] MCHC 30.9(L) 31.5 - 35.7 g/dL 04/28/2025 5:41 PM EDT [facility] RDW 19.7(H) 12.3 - 15.4 % 04/28/2025 5:41 PM [facility] RDW-SD 66.3(H) 37.0 - 54.0 fl 04/28/2025 5:41 PM [facility] MPV 8.5 6.0 - 12.0 fL 04/28/2025 5:41 PM [facility] Platelets 245 140 - 450 10*3/mm3 04/28/2025 5:41 PM [facility] Neutrophil % 72.1 42.7 - 76.0 % 04/28/2025 5:41 PM [facility] Lymphocyte % 10.4(L) 19.6 - 45.3 % 04/28/2025 5:41 PM [facility] Monocyte % 7.5 5.0 - 12.0 % 04/28/2025 5:41 PM [facility] Eosinophil % 7.9(H) 0.3 - 6.2 % 04/28/2025 5:41 PM [facility] Basophil % 0.8 0.0 - 1.5 % 04/28/2025 5:41 PM [facility] Immature Grans % 1.3(H) 0.0 - 0.5 % 04/28/2025 5:41 PM [facility] Neutrophils, Absolute 3.82 1.70 - 7.00 10*3/mm3 04/28/2025 5:41 PM [facility] Lymphocytes, Absolute 0.55(L) 0.70 - 3.10 10*3/mm3 04/28/2025 5:41 PM [facility] Monocytes, Absolute 0.40 0.10 - 0.90 10*3/mm3 04/28/2025 5:41 PM [facility] Eosinophils, Absolute 0.42(H) 0.00 - 0.40 10*3/mm3 04/28/2025 5:41 PM [facility] Basophils, Absolute 0.04 0.00 - 0.20 10*3/mm3 04/28/2025 5:41 PM EDT [facility] Immature Grans, Absolute 0.07(H) 0.00 - 0.05 10*3/mm3 04/28/2025 5:41 PM EDT [facility] nRBC 0.0 0.0 - 0.2 /100 WBC 04/28/2025 5:41 PM EDT [facility] Blood Line / Unknown 04/28/2025 5: 33 PM EDT 04/28/2025 5:38 PM EDT us Serafin Villalpando MD LAB BLOOD ORDERABLES Final R esult [facility]
[address] [place] [address], * Lavender Top (04/28/2025 5:33 PM EDT) Extra Tube hold for add-on 04/28/2025 5:45 PM EDT [facility] Comment:Auto resulted Blood Line / Unknown 04/28/2025 5: 33 PM EDT 04/28/2025 5:38 PM EDT us Serafin Villalpando MD LAB BLOOD ORDER ONLY Final R esult [facility]
[address] [place] [address], * Light Blue Top (04/28/2025 5:33 PM EDT) Extra Tube Hold for add-ons. 04/28/2025 5:45 PM EDT [facility] Comment:Auto resulted Blood Line / Unknown 04/28/2025 5: 33 PM EDT 04/28/2025 5:38 PM EDT us Serafin Villalpando MD LAB BLOOD ORDER ONLY Final R esult Performing Organization Address [facility]/ZIP Co de Phone Number [facility]
[address] [place] [address], * BNP (04/28/2025 5:33 PM EDT) proBNP 420.5 0.0 - 1,800.0 pg/mL 04/28/2025 6:03 PM EDT [facility] Blood Line / Unknown 04/28/2025 5: 33 PM EDT 04/28/2025 5:38 PM EDT Narrative [facility] - 04/28/2025 6:03 PM EDT This [...] ORDERABLES Final R esult Performing Organization Address [facility] Co de Phone Number [facility]
[address] [place] [address], * Telemetry Scan (04/28/2025 5:31 PM EDT) Only the most recent of2 resultswithin the time period is included. [facility] Onbase ECG ORDERABLES Final Result from Last 3 Months Insurance [facility] SUP MEDICARE A & B Advance Directives * CPR (Attempt to Resuscitate) (Latest Code Status on File) Date Activated Date Inactivated Comments 04/28/2025 9:40 PM 04/29/2025 6:01 PM Question Answer Comments Code Status (Patient has no pulse and is not breathing): CPR (Attempt to Resuscitate) Medical Interventions (Patie nt has pulse or is breathing): Full Support Care Teams Video Camera Operator Relationship Specialty Start Date End Date Provider, No Known [facility] [place] [address] PCP - General 04/28/25
--- OUTSIDE RECORDS SUMMARY | 2025-07-25 12:55 | XMS_ITS | Encounter Summary ---
Author Organization [facility] Address [address] [place] [address] Care Team Providers Care Distillation Operator Name Role Phone Tristan Billings DO Primary Care Provider [phone] Abelardo Pappas MD Primary Care Provider [phone] Encounter Details Date Type Department Care Team (Late Contact Info) Description 06/01/2025 Orders Only [facility] [address] [place] [address] Justen Jaimes MD [address] [address] Social History Tobacco Use Types [...] Description 11/28/2025 2:00 PM EDT Office Visit [facility] [address] [place] [phone] 11/28/2025 3:00 PM EDT Office Visit [facility] [address] [place] [phone] Justen Jaimes MD [address] [place] [phone] 11/28/2025 3:15 PM EDT Clinical Support [facility] [address] [place] [phone] documented as of this encounter Procedures Procedure [...] documented as of this encounter Care Teams Distillation Operator Relationship Specialty Start Date End Date Tristan Billings DO [address] [place] [address] PCP - General 09/13/24 06/03/25 Abelardo Pappas MD [address] [place] [address] PCP - General 06/04/25 documented as of this encounter
--- OUTSIDE RECORDS SUMMARY | 2025-07-25 12:55 | XMS_ITS | Clinical Summary ---
Author Organization [facility] Address [address] [place] [address] Care Team Providers Care Parts Manager Name Role Phone Abelardo Pappas MD Primary Care Provider +1- [phone] Allergies Active Allergy Reactions Criticality Noted Date [...] (one) time each day. Active HYDROcodone-newton taminophen ([place]) 5-325 MG tablet TAKE ONE TABLET BY [...] Department Care Team Description 06/28/2025 Orders Only [facility] at [address] [place] [address] Justen Jaimes MD Malignant neoplasm of prostate (CMS/HCC) 06/06/2025 2:30 PM EDT Infusion [facility] at [place] [address] [place] [address] Osteopenia of multiple sites (Primary Dx) 06/06/2025 2:15 PM EDT Office Visit [facility] [address] [place] [address] Justen Jaimes MD Malignant neoplasm of prostate (CMS/HCC) (Primary Dx); Osteopenia of multiple sites 06/06/2025 Orders Only [facility] at [facility] [address] [place] [place] [address] Justen Jaimes MD 06/06/2025 Orders Only [facility] at [facility] [address] [place] [address] Justen Jaimes MD 06/06/2025 Travel 06/04/2025 Travel 06/01/2025 Orders Only [facility] at [facility] [address] [place] [address] Justen Jaimes MD 05/11/2025 Abstract [facility] at [facility] [address] [place] [address] Justen Jaimes MD from Last 3 Months [...] Description 11/28/2025 2:00 PM EDT Office Visit [facility] at [facility] [address] [place] [address] 11/28/2025 3:00 PM EDT Office Visit [facility] at [facility] [address] [place] [address] Justen Jaimes MD [address] [address] 11/28/2025 3:15 PM EDT Clinical Support [facility] at [facility] [address] [place] [address] Health Maintenance Due Date Last Done Comments [facility]-Hepatitis C Screening 1945 [facility]-Medicare Annual Wellness (AWV) 1945 [facility]-/Child/Adol SDOH Screenings 1945 [facility]-Obesity Intervention 1953 [facility]- SDOH Screenings 1965 [facility]-Adult SDOH Screenings 1965 [facility]-Pneumococcal Vaccine: 50 + Years (1 of 2 - PCV) 1966 [facility]-Zoster Vaccines (1 of 2) 1966 [facility]-DTaP,Tdap,and Td Vaccine s (1 - Tdap) 07/25/2010 07/24/2010 [id number] Vaccine (3 - Moderna risk series) 12/20/2020 [...] Priority Date/Time Associated Diagnosis Comments RBC MORPHOLOGY ([facility]) Routine 06/06/2025 1:50 PM EDT PROSTATE SPECIFIC [...] Platelet Morphology NORMAL 06/06/2025 4:06 PM EDT [facility] External Ovalocytes SLIGHT(A) 06/06/2025 4:06 PM EDT [facility] External Stomatocyte SLIGHT(A) 06/06/2025 4:06 PM EDT [facility] External Target Cells SLIGHT(A) 06/06/2025 4:06 PM EDT [facility] External Tear Drop Cells SLIGHT(A) 06/06/2025 4:06 PM EDT [facility] 06/06/2025 1:50 PM EDT 06/06/2025 2:21 PM EDT Justen Jaimes MD LAB BLOOD ORDERABLES Flaca ledezma Result [facility] [address] [place] [id number], * (ABNORMAL) CBC and Differential (06/06/2025 1:50 PM EDT) External WBC 5.5 3.8 - 10.8 10*3/uL 06/06/2025 4:06 PM EDT [facility] External Red Blood Cell (RBC) 3.67(L) 4.20 - 5.80 10*6/uL 06/06/2025 4:06 PM EDT [facility] External Hemoglobin 10.3(L) 14.0 - 18.0 g/dL 06/06/2025 4:06 PM EDT [facility] External Hematocrit 32.8(L) 40.0 - 52.0 % 06/06/2025 4:06 PM EDT [facility] External MCV 89 80 - 100 fL 06/06/2025 4:06 PM EDT [facility] External MCH 28 26 - 35 pg 06/06/2025 4:06 PM EDT [facility] External MCHC 31(L) 32 - 36 g/dL 06/06/2025 4:06 PM EDT [facility] External RDW 23.0(H) 11.0 - 15.0 % 06/06/2025 4:06 PM EDT [facility] External Mean Platelet Volume 7.3 6.2 - 10.5 fL 06/06/2025 4:06 PM EDT [facility] External Platelet Count (Plt) 326 150 - 400 10*3/uL 06/06/2025 4:06 PM EDT [facility] External Neutrophil# 3.5 1.6 - 8.4 10*3/uL 06/06/2025 4:06 PM EDT [facility] External Lymphocyte# 0.7 0.4 - 5.1 10*3/uL 06/06/2025 4:06 PM EDT [facility] External Absolute Monocyte (Abs Slope) 0.5 0.0 - 1.2 10*3/uL 06/06/2025 4:06 PM EDT [facility] External Eosinophils# 0.7 0.0 - 0.8 10*3/uL 06/06/2025 4:06 PM EDT [facility] External Baso# 0.1 0.0 - 0.3 10*3/uL 06/06/2025 4:06 PM EDT [facility] Comment:Smear reviewed to co nfirm cell morphology. External Neutrophils % 63.9 42.0 - 78.0 % 06/06/2025 4:06 PM EDT [facility] External Lymphocyte % 13.1 11.0 - 47.0 % 06/06/2025 4:06 PM EDT [facility] External Monocyte % 8.8 0.0 - 11.0 % 06/06/2025 4:06 PM EDT [facility] External Eosinophil% 13.2(H) 0.0 - 7.0 % 06/06/2025 4:06 PM EDT [facility] External Basophil % 1.0 0.0 - 3.0 % 06/06/2025 4:06 PM EDT [facility] External Nucleated RBC%-Auto 0.3 0.0 - 0.9 % 06/06/2025 4:06 PM EDT [facility] External Nucleated RBC Absolute 0.02 Not Estab. 10*3/uL 06/06/2025 4:06 PM EDT [facility] Blood Venous blood specimen / Unknown 06/06/2025 1:50 PM EDT 06/06/2025 2:21 PM EDT us Justen Jaimes MD LAB BLOOD ORDERABLES Flaca ledezma Result [facility] [address] [place] [address], * PSA, percent free, profile (06/06/2025 1:50 PM EDT) External Prostate Specific Antigen (PSA) 0.269 0.000 - 4.400 ng/mL 06/06/2025 3:01 PM EDT [facility] Comment: This test was performed using Estefania e801 Electrochemiluminescent method. The test method is based on WHO-standardized calibration. Values obtained from different assay methods or manufacturers may not be comparable. External Psa, Free 0.17 ng/mL 2024 3:01 PM EDT [facility] Comment: Test method is based on WHO-standardized calibration using the Estefania E801 analyzer. Free PSA results by different test procedures cannot be directly compared with one another. External Psa- % Free 63 % 05/17 3:01 PM EDT [facility] Comment: PSA ng/mL % FREE PSA Probability of Prostate Cancer % Less than 4.00 N/A 17% 4.0 - 10.0 0-10 56% 10-15 28% 15-20 20% 20-25 16% Greater than 25 8% Greater than 10.0 N/A 49% Blood Venous blood specimen / Unknown 06/06/2025 1:50 PM EDT 06/06/2025 2:21 PM EDT us Justen Jaimes MD LAB BLOOD ORDERABLES Flaca ledezma Result [facility] [address] [place] [address], * (ABNORMAL) Comprehensive Metabolic Panel, Plasma (06/06/2025 1:50 PM EDT) External Glucose 101(H) 74 - 100 mg/dL 06/06/2025 2:55 PM EDT [facility] External BUN 22(H) 6 - 20 mg/dL 06/06/2025 2:55 PM EDT [facility] External Creatinine Blood 0.97 0.70 - 1.20 mg/dL 06/06/2025 2:55 PM EDT [facility] External BUN/Creat Ratio 23(H) 10 - 20 (calc) 06/06/2025 2:55 PM EDT [facility] External Sodium 144 136 - 145 mmol/L 06/06/2025 2:55 PM EDT [facility] External Potassium 3.7 3.4 - 5.0 mmol/L 06/06/2025 2:55 PM EDT [facility] External Chloride 103 98 - 107 mmol/L 06/06/2025 2:55 PM EDT [facility] External Carbon Dioxide (CO2) 27 22 - 31 mmol/L 06/06/2025 2:55 PM T [facility] External Anion Gap (AG) 14 7 - 25 (calc) 06/06/2025 2:55 PM EDT [facility] External Calcium 10.0 8.6 - 10.2 mg/dL 06/06/2025 2:55 PM EDT [facility] External Total Protein 6.9 6.4 - 8.3 g/dL 06/06/2025 2:55 PM EDT [facility] External Albumin 4.4 3.5 - 5.2 g/dL 06/06/2025 2:55 PM EDT [facility] External Globulin 2.5 1.5 - 4.5 2:55 PM T [facility] External Albumin/Globulin Ratio 1.8 1.1 - 2.5 (calc) 06/06/2025 2:55 PM EDT [facility] External Bilirubin Total 0.3 0.1 - 1.0 mg/dL 06/06/2025 2:55 PM T [facility] Comment:NOTE: New reference range. External Alkaline Phosphatase 85 40 - 129 U/L 06/06/2025 2:55 PM EDT [facility] External AST (SGOT) 25 0 - 40 U/L 06/06/2025 2:55 PM EDT [facility] External ALT (SGPT) 32 0 - 41 U/L 06/06/2025 2:55 PM EDT [facility] External Estimated GFR 80 >=60 06/06/2025 2:55 PM EDT [facility] Comment: NOTE New calculation for GFR (CKD-EPI 2020) is formulated without race adjustment factors at the recommendation of the National Kidney Foundation and [place] Society of Nephrology. This calculation has not been validated in women. For pediatric patients refer to https://www.kidney.org/professionals/KDOQI/gfr_calculatorPed Blood Venous blood specimen / Unknown 06/06/2025 1:50 PM EDT 06/06/2025 2:21 PM EDT Justen Jaimes MD LAB BLOOD ORDERABLES Flaca l Result [facility] [address] [place] [address], [place] [phone] * COMPLETE METABOLIC PROFILE (CMP) (06/04/2025 2:58 [...] Result from Last 3 Months Insurance [place] [address] [facility] Care Teams Parts Manager Relationship Specialty Start Date End Date Abelardo Pappas MD [address] [place] [address] PCP - General 06/04/25
--- OUTSIDE RECORDS SUMMARY | 2025-07-25 12:55 | XMS_ITS | Encounter Summary ---
Author Organization [facility] Address [address] [place] [address] Care Team Providers Care Real Estate Developer Name Role Phone Abelardo Pappas MD Primary Care Provider +1- [phone] Encounter Details Date Type Department Care Team [...] Description 11/28/2025 2:00 PM EDT Office Visit [facility] [place] [facility] [address] [place] [address] 11/28/2025 3:00 PM EDT Office Visit [facility] at [facility] [address] [place] [address] Justen Jaimes MD [address] [phone] 11/28/2025 3:15 PM EDT Clinical Support [facility] at [facility] [address] [place] [address] documented as of this encounter Visit Diagnoses Not on filedocumented in this encounter Additional Health Concerns Assessment Noted Time PHQ-9 Depression Total Score: 0 12/28/19 1:21 PM EDT A fall risk assessment has been complete d for the patient 12/27/2024 1:20 PM EDT documented as of this encounter Care Teams Real Estate Developer Relationship Specialty Start Date End Date Abelardo Pappas MD [address] [place] [address] PCP - General 06/04/25 documented as of this encounter
--- OUTSIDE RECORDS SUMMARY | 2025-07-25 12:55 | XMS_ITS | Encounter Summary ---
Author Organization [facility] Address [address] [place] [address] Care Team Providers Care Stone Paver Name Role Phone Abelardo Pappas MD Primary Care Provider +1- [phone] Encounter Details Date Type Department Care Team (Late st Contact Info) Description 06/06/2025 Orders Only [facility] at [facility] [address] [place] [phone] Justen Jaimes MD [address] [facility] [address] [place] [phone] Social History Tobacco Use Types Packs/Day Years [...] EDT Office Visit [facility] at [facility] [address] [place] [address] 11/28/2025 3:00 PM EDT Office Visit [facility] at [facility] [address] [place] [address] Justen Jaimes MD [address] [address] 11/28/2025 3:15 PM EDT Clinical Support [facility] at [facility] [address] [place] [address] documented as of this encounter Procedures Procedure Name Priority Date/Time Associated Diagnosis Comments RBC MORPHOLOGY ([facility]) Routine 06/06/2025 1:50 PM EDT documented in this encounter Results * (ABNORMAL) RBC MORPHOLOGY (EXTERNAL) (06/06/2025 1:50 PM EDT) External Platelet Morphology NORMAL 06/06/2025 4:06 PM EDT [facility] External Ovalocytes SLIGHT(A) 06/06/2025 4:06 PM EDT [facility] External Stomatocyte SLIGHT(A) 06/06/2025 4:06 PM EDT [facility] External Target Cells SLIGHT(A) 06/06/2025 4:06 PM EDT [facility] External Tear Drop Cells SLIGHT(A) 06/06/2025 4:06 PM EDT [facility] 06/06/2025 1:50 PM EDT 06/06/2025 2:21 PM EDT us Justen Jaimes MD LAB BLOOD ORDERABLES Flaca ledezma Result [facility] [address] [place] [address], documented in this encounter Visit Diagnoses Not on filedocumented in this encounter Additional Health Concerns Assessment Noted Time PHQ-9 Depression Total Score: 0 12/28/19 1:21 PM EDT A fall risk assessment has been complete d for the patient 06/06/2025 3:46 PM EDT documented as of this encounter Care Teams Stone Paver Relationship Specialty Start Date End Date Abelardo Pappas MD [address] [place] [address] PCP - General 06/04/25 documented as of this encounter
--- OUTSIDE RECORDS SUMMARY | 2025-07-25 12:55 | XMS_ITS | Encounter Summary ---
Author Organization [facility] Address [address] [place] [address] Care Team Providers Care Technology Resource Teacher Name Role Phone Abelardo Pappas MD Primary Care Provider +1- [phone] Encounter Details Date Type Department Care Team (Late Contact Info) Description 06/28/2025 Orders Only [facility] at [facility] [address] [place] [address] Justen Jaimes MD [address] [phone] Malignant neoplasm of prostate (CMS/HCC) Social History [...] EDT Office Visit [facility] [address] [place] [address] 11/28/2025 3:00 PM EDT Office Visit [facility] [address] [place] [address] Justen Jaimes MD [address] [address] 11/28/2025 3:15 PM EDT Clinical Support [facility] at [facility] [address] [place] [address] documented as of this encounter Visit Diagnoses Diagnosis Malignant neoplasm of prostate (CMS/HCC) Malignant neoplasm of prostate documented in this encounter Additional Health Concerns Assessment Noted Time PHQ-9 Depression Total Score: 0 12/28/19 1:21 PM EDT A fall risk assessment has been complete d for the patient 06/06/2025 3:46 PM EDT documented as of this encounter Care Teams Technology Resource Teacher Relationship Specialty Start Date End Date Abelardo Pappas MD [address] [place] [address] PCP - General 06/04/25 documented as of this encounter
--- OUTSIDE RECORDS SUMMARY | 2025-07-25 12:55 | XMS_ITS | Encounter Summary ---
Author Organization [facility] Address [address] [place] [address] Care Team Providers Care Research Chemist Name Role Phone Abelardo Pappas MD Primary Care Provider +1- [phone] Encounter Details Date Type Department Care Team (Late st Contact Info) Description 06/06/2025 Orders Only [facility] at [facility] [address] [place] [phone] Justen Jaimes MD [address] [facility] [address] [place] [phone] Social History Tobacco Use Types Packs/Day Years [...] Description 11/28/2025 2:00 PM EDT Office Visit [facility] at [facility] [address] [place] [address] 11/28/2025 3:00 PM EDT Office Visit [facility] at [facility] [address] [place] [address] Justen Jaimes MD [address] [address] 11/28/2025 3:15 PM EDT Clinical Support [facility] at [facility] [address] [place] [address] documented as of this encounter [...] documented as of this encounter Care Teams Research Chemist Relationship Specialty Start Date End Date Abelardo Pappas MD [address] [place] [address] PCP - General 06/04/25 documented as of this encounter
--- OUTSIDE RECORDS SUMMARY | 2025-07-25 12:55 | XMS_ITS | Encounter Summary ---
Author Organization [facility] Address [address] [place] [address] Care Team Providers Care Airbrush Artist Photography Name Role Phone Abelardo Pappas MD Primary Care Provider +1- [phone] Encounter Details Date Type Department Care Team [...] 11/28/2025 2:00 PM EDT Office Visit [facility] [address] [place] [phone] 11/28/2025 3:00 PM EDT Office Visit [facility] [address] [place] [phone] Justen Jaimes MD [address] [phone] 11/28/2025 3:15 PM EDT Clinical Support [facility] [address] [place] [phone] documented as of this encounter Visit Diagnoses Not on filedocumented in this encounter Additional Health Concerns Assessment Noted Time PHQ-9 Depression Total Score: 0 12/28/19 1:21 PM EDT A fall risk assessment has been complete d for the patient 06/06/2025 3:46 PM EDT documented as of this encounter Care Teams Airbrush Artist Photography Relationship Specialty Start Date End Date Abelardo Pappas MD [address] [place] [address] PCP - General 06/04/25 documented as of this encounter
[2025-07-25 13:23] LABS: Hemoglobin 8.3 g/dL (14.1-18.0); Immature Granulocytes % 2.1 %; Mean Corpuscular HGB Conc 31.0 g/dL (31.8-35.4); Mean Corpuscular Hemoglobin 29.0 pg (27.0-31.2); Mean Corpuscular Volume 93.7 fl (80-94); Nucleated Red Blood Cells % 1.2 %; Platelet Count 423 K/mm3 (142-424); Red Blood Count 2.86 M/mm3 (4.60-6.20); Red Cell Distribution Width-SD 82.2 fL; White Blood Count 6.6 K/mm3 (4.8-10.8)
[2025-07-25 13:43] LABS: Hematocrit 26.8 % (42.0-52.0)
== END 2025-07-25 23:59 | disposition home or self-care (01) ==
LOC: LAB 12:53
PROVIDERS: PCP Family Medicine; Visit Provider Student in an Organized Health Care Education/Training Program
DX: D50.0 Iron deficiency anemia secondary to blood loss (chronic) (principal)
CPT/HCPCS: 36415; 85025